=== PATIENT | male | born 1940 | race Caucasian/White ===

== ENCOUNTER 2023-02-02 21:26 | Inpatient (IN) | payer MEDICARE, OTHER, SELFPAY ==
[2023-02-02 21:26] VITALS: BP 144/77; PULSE 78; RESP 22; TEMP 36.7; O2SAT 96; BMI 29.1
--- NOTE | 2023-02-02 21:33 | ECG_ITS ---
The 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
--- NOTE | 2023-02-02 21:33 | XR_ITS ---
The [address] [address] Patient Name: FRANCISCO TIDWELL MRN: [id number] date: 1940 Sex: M Assigned Patient Location: ER Current Patient Location: ER Accession/Order Number: [id number] Exam Date: 02/02/2023 21:55 Report Date: 02/02/2023 22:46 At the request of: JOHN PICKENS Procedure: XR chest 1V EXAM: XR chest 1V HISTORY: short of breath COMPARISON: None. TECHNIQUE: AP portable study FINDINGS: There is a left basilar infiltrate with hazy density at the left lung base and blunting of the left lateral costophrenic sulcus consistent with superimposed left pleural effusion. The right lung is clear. Cardiomegaly is noted. Atherosclerotic change of the aorta without visible aneurysm. Wire sternal sutures are noted. IMPRESSION: Cardiomegaly with left basilar infiltrate and probable left pleural effusion. The technologist notes that bypass surgery was performed 2 weeks ago. Left pleural effusion may be related to the recent surgery. Superimposed pneumonia is not excluded. Electronically authenticated by: David BELCHER Date: 02/02/2023 22:46
[2023-02-02 21:52] VITALS: PULSE 77
[2023-02-02 21:57] LABS: Basophils Absolute Auto 0.1 10^3/uL (0.0-0.1); Basophils Percent Auto 0.7 % (0.2-2.0); Eosinophils Absolute Auto 0.1 10^3/uL (0.0-0.7); Eosinophils Percent Auto 1.4 % (0.9-7.0); Hematocrit 34.8 % (42.0-54.0); Hemoglobin 11.3 g/dL (14.0-18.0); Immature Granulocytes Abs Auto 0.07 10^3/uL (0.00-0.03); Immature Granulocytes Pct Auto 0.7 % (0.0-0.5); Lymphocytes Absolute Auto 1.2 10^3/uL (1.2-3.8); Lymphocytes Percent Auto 12.2 % (20.5-60.0); Mean Corpuscular HGB Conc 32.5 g/dL (29.9-35.2); Mean Corpuscular Hemoglobin 30.9 pg (25.9-34.0); Mean Corpuscular Volume 95.1 fL (80.0-94.0); Mean Platelet Volume 7.9 fL (9.5-13.5); Monocytes Absolute Auto 1.2 10^3/uL (0.3-0.8); Monocytes Percent Auto 11.6 % (1.7-12.0); Neutrophils Absolute Auto 7.4 10^3/uL (1.4-6.5); Neutrophils Percent Auto 73.4 % (43.0-75.0); Platelet Count 244 10^3/uL (150-450); Red Blood Count 3.66 10^6/uL (4.70-6.10); Red Cell Distribution Width 15.1 % (11.0-15.0); White Blood Count 10.1 10^3/uL (4.0-11.0)
--- NOTE | 2023-02-02 21:57 | PC.NURSE ---
Bruising and sweling toleft lower leg due to recent vein graft. Pulses doppler
--- NOTE | 2023-02-02 22:20 | ED.SOB1 ---
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 States tonight after therapy at the home he did not feel well once he was back to his room around 6pm. Around 8pm developed heaviness of his chest like an elephant on his chest and he feels short of breath . No nausea or fever. No abdominal pain. MD elicited complaint: shortness of breath Related Data Home Medications Medication Instructions Recorded Confirmed PreserVision AREDS 02/02/23 acetaminophen 325 mg tablet (Pain 650 mg PO Q6H PRN pain 02/02/23 02/02/23 Relief (acetaminophen)) amiodarone 200 mg tablet 200 mg PO DAILY 02/02/23 02/02/23 amiodarone 400 mg tablet (Pacerone) 400 mg PO BID 02/02/23 02/02/23 aspirin 81 mg chewable tablet 81 mg PO DAILY 02/02/23 02/02/23 atorvastatin 40 mg tablet 40 mg PO QPM 02/02/23 02/02/23 cetirizine 10 mg tablet 10 mg PO DAILY 02/02/23 02/02/23 clopidogrel 75 mg tablet 75 mg PO DAILY 02/02/23 02/02/23 docusate sodium 100 mg capsule 100 mg PO BID 02/02/23 02/02/23 (Col-Rite) furosemide 40 mg tablet 40 mg PO DAILY 02/02/23 02/02/23 glimepiride 4 mg tablet 4 mg PO DAILY 02/02/23 02/02/23 insulin glargine 100 unit/mL 20 unit subcut QPM 02/02/23 02/02/23 subcutaneous solution insulin glargine 100 unit/mL 20 unit subcut DAILY 02/02/23 02/02/23 subcutaneous solution (Lantus U-100 Insulin) magnesium oxide 400 mg PO BID 02/02/23 02/02/23 melatonin 10 mg capsule 10 mg PO DAILY 02/02/23 02/02/23 melatonin 3 mg capsule 3 mg PO DAILY 02/02/23 02/02/23 metformin 500 mg tablet 500 mg PO BID 02/02/23 02/02/23 metoprolol tartrate 25 mg tablet 12.5 mg PO BID 02/02/23 02/02/23 oxycodone 5 mg capsule 5 mg PO Q6H 02/02/23 02/02/23 pantoprazole 40 mg tablet,delayed 40 mg PO DAILY 02/02/23 02/02/23 release polyethylene glycol ea miscellaneous 02/02/23 potassium chloride 20 mEq 20 meq PO DAILY 02/02/23 02/02/23 tablet,extended release sennosides 8.6 mg capsule (senna) 8.6 mg PO BID 02/02/23 02/02/23 Allergies Allergy/AdvReac Type Severity Reaction Status Date / Time No Known Drug Allergies Allergy Verified 02/02/23 21:32 Review of Systems ROS Status of ROS 10 or more systems reviewed and unremarkable except as noted in history and below Cardiovascular Reports: chest pain Respiratory Reports: shortness of breath [facility] Social History Smoking status: Former smoker Exam Constitutional Vital Signs - 24 hr 02/02/23 21:26 02/02/23 22:38 Temperature 98.0 F Pulse Rate [Monitor] 78 77 Respiratory Rate 22 77 H Blood Pressure [Left Arm] 144/77 H 106/62 Pulse Oximetry 96 95 Oxygen Delivery Method Room Air Room Air Common normals: no apparent distress, average body habitus, oriented x3, no limitations and healthy appearing [facility] Common normals: normocephalic and head/scalp atraumatic Eye Common normals: PERRL, EOMs intact bilaterally and conjunctivae normal Chest Other: incision mid chest looks good Respiratory Common normals: normal respiratory effort, no retractions, no use of accessory muscles and clear to auscultation bilaterally Cardio Common normals: no JVD, regular rate, regular rhythm and S1 normal heart sound GI Common normals: Normal to inspection, nondistended, normoactive bowel sounds present, soft to palpation and non-tender Extremity Common normals: normal to inspection Other: gen. joint pain elliott her knee. Limited ROM of her joints due to complaint of pain Neuro Common normals: oriented x3, CN's II-XII intact bilaterally and moves all extremities Psych Appearance: grossly normal Course Vital Signs Vital signs: Vital Signs Temperature 98.0 F 02/02/23 21:26 Pulse Rate 78 02/02/23 21:26 Respiratory Rate 22 02/02/23 21:26 Blood Pressure 144/77 H 02/02/23 21:26 Pulse Oximetry 96 02/02/23 21:26 Oxygen Delivery Method Room Air 02/02/23 21:26 Temperature 98.0 F 02/02/23 21:26 Pulse Rate 77 02/02/23 22:38 Respiratory Rate 77 H 02/02/23 22:38 Blood Pressure 106/62 02/02/23 22:38 Pulse Oximetry 95 02/02/23 22:38 Oxygen Delivery Method Room Air 02/02/23 22:38 MDM - SOB/Dyspnea MDM Narrative Medical decision making narrative: patient presents with complaint of gen. joint pain , weakness and blurred vision. Blurred vision on and off early AM and then her vision remained blurred at 2pm. She arrived to the ER 6 hours later. Exam with abnormal right michele gaze as her left eye would not cross midline. CTS , including CTA brain and CTA neck without acute findings. Discussed with Stroke physician Dr Henderson. He recommended plavix 600mg and admission for MRI. Found out that there is no staff on duty tomorrow for MRI but they are available to be called in as an emergency. In the interim patient complains of worsening joing pain , elliott her lower extremities to a point that she does not want to move her legs. She also has lactic acidosis, leukocytosis and mild elevation of Troponin. Her troponin is trending down as it was higher during her admission 2 days ago. Her EKG has not acute changes. She has a low grade fever. No clear etiology to explain her fever, arthralgias or lactic acidosis. Patient accepted for transper to [facility] to continue workup and treatment Lab Data Labs: Lab Results 02/02/23 Range/Units 21:40 WBC 10.1 (4.0-11.0) 10^3/uL RBC 3.66 L (4.70-6.10) 10^6/uL Hgb 11.3 L (14.0-18.0) g/dL Hct 34.8 L (42.0-54.0) % MCV 95.1 H (80.0-94.0) fL MCH 30.9 (25.9-34.0) pg MCHC 32.5 (29.9-35.2) g/dL RDW 15.1 H (11.0-15.0) % Plt Count 244 (150-450) 10^3/uL MPV 7.9 L (9.5-13.5) fL Neut % (Auto) 73.4 (43.0-75.0) % Lymph % (Auto) 12.2 L (20.5-60.0) % [place] % (Auto) 11.6 (1.7-12.0) % Eos % (Auto) 1.4 (0.9-7.0) % Baso % (Auto) 0.7 (0.2-2.0) % Neut # (Auto) 7.4 H (1.4-6.5) 10^3/uL Lymph # (Auto) 1.2 (1.2-3.8) 10^3/uL [place] # (Auto) 1.2 H (0.3-0.8) 10^3/uL Eos # (Auto) 0.1 (0.0-0.7) 10^3/uL Baso # (Auto) 0.1 (0.0-0.1) 10^3/uL Abs Immat Gran (auto) 0.07 H (0.00-0.03) 10^3/uL Imm/Tot Granulo (auto) 0.7 H (0.0-0.5) % PT 10.9 (9.0-11.6) sec INR 1.03 D-Dimer 3.24 H* (<=0.59) mg/L FEU Sodium 140 (136-145) mmol/L Potassium 3.9 (3.5-5.1) mmol/L Chloride 104 (98-107) mmol/L Carbon Dioxide 24.3 (21.0-32.0) mmol/L Anion Gap 15.6 BUN 17.0 (7.0-18.0) mg/dL Creatinine 1.13 (0.70-1.30) mg/dL Est GFR ( Amer) >60 (>=60) Est GFR (Non-Af Amer) >60 (>=60) BUN/Creatinine Ratio 15.0 Glucose 184 H (74-106) mg/dL Calcium 8.3 L (8.5-10.1) mg/dL Total Bilirubin 0.4 (0.2-1.0) mg/dL AST 11 L (15-37) U/L ALT 19 (16-63) U/L Alkaline Phosphatase 101 (46-116) U/L Troponin I High Sens 6.9 (4.0-76.1) pg/mL Total Protein 6.1 L (6.4-8.2) g/dL Albumin 2.7 L (3.4-5.0) g/dL Globulin 3.4 g/dL Albumin/Globulin Ratio 0.8 Discharge Plan Discharge Chief Complaint: Shortness of Breath/Dyspnea Clinical Impression: Arthralgia, Blurred vision, Leukocytosis, Stroke, Elevated troponin Patient Disposition: [facility] Discharge location: transfer to [facility] Mode of Transportation: EMS
--- NOTE | 2023-02-02 22:29 | CT_ITS ---
[address] [address] Patient Name: FRANCISCO TIDWELL MRN: [id number] date: 1940 Sex: M Assigned Patient Location: ER Current Patient Location: ER Accession/Order Number: [id number] Exam Date: 02/02/2023 23:25 Report Date: 02/03/2023 01:06 At the request of: HILDA DE LA ROSA Procedure: CT angio chest EXAM: CT angio chest HISTORY: chest pain shortness of breath COMPARISON: Chest x-ray 02/02/2023 TECHNIQUE: Multiple axial views of the CT chest angiogram after administration of 100 mL Omnipaque 350 IV contrast. Coronal sagittal reformats. MIP series performed. 3-D reconstruction. FINDINGS: No evidence for acute pulmonary embolism throughout the majority of the pulmonary arteries. Some portions of the left lower segmental and subsegmental pulmonary arteries are obscured by respiratory motion. No thoracic aortic aneurysm or aortic dissection. Moderate cardiomegaly with extensive left and right coronary artery calcifications. No large pericardial effusion. Prior sternotomy. Trace retrosternal fluid and foci of air. Central airway is patent. Multifocal moderate bilateral lower distal bronchioles mucus plugging. Mild bilateral upper lobe paraseptal emphysema. Mild left upper lobe groundglass opacities reflecting pulmonary edema or lung inflammation. Trace left lower pleural effusion. Minimal hiatal hernia. 1.4 cm left hepatic dome hypodense oval focus, statistically cyst or hemangioma. No acute bony abnormality. IMPRESSION: No evidence for acute pulmonary embolism throughout the majority of the pulmonary arteries. Some portions of the left lower segmental and subsegmental pulmonary arteries are obscured by respiratory motion. Moderate cardiomegaly with extensive left and right coronary artery calcifications. No large pericardial effusion. Prior sternotomy. Trace retrosternal fluid and foci of air. Multifocal moderate bilateral lower distal bronchioles mucus plugging. Mild bibasilar atelectatic lung changes. Mild left upper lobe groundglass opacities reflecting pulmonary edema or lung inflammation. Trace left lower pleural effusion. Electronically authenticated by: KARLA JOHNSON Date: 02/03/2023 01:06
[2023-02-02 22:37] LABS: Alanine Aminotransferase 19 U/L (16-63); Albumin Globulin Ratio 0.8; Albumin Level 2.7 g/dL (3.4-5.0); Alkaline Phosphatase 101 U/L (46-116); Anion Gap 15.6; Aspartate Amino Transferase 11 U/L (15-37); Bilirubin Total 0.4 mg/dL (0.2-1.0); Calcium 8.3 mg/dL (8.5-10.1); Carbon Dioxide 24.3 mmol/L (21.0-32.0); Chloride 104 mmol/L (98-107); Estimated GFR (African America >60 (>=60); Estimated GFR (Non-African Ame >60 (>=60); Globulin 3.4 g/dL; Glucose 184 mg/dL (74-106); Potassium 3.9 mmol/L (3.5-5.1); Sodium 140 mmol/L (136-145); Total Protein 6.1 g/dL (6.4-8.2); Troponin I High Sensitivity 6.9 pg/mL (4.0-76.1)
[2023-02-02 22:38] VITALS: BP 106/62; PULSE 77; RESP 77; O2SAT 95
[2023-02-02 22:39] LABS: D Dimer 3.24 mg/L FEU (<=0.59); INR 1.03; Prothrombin Time 10.9 sec (9.0-11.6)
[2023-02-03] VITALS (15 sets, daily range): BP systolic 93–124; BP diastolic 60–88; PULSE 66–97; RESP 18–20; TEMP 36.3–36.4; O2SAT 90–95
--- NOTE | 2023-02-03 01:46 | ED.SOB1 ---
HPI - SOB/Dyspnea General Chief Complaint: Shortness of Breath/Dyspnea Stated Complaint: SHORTNESS OF BREATH Time Seen by Provider: 02/02/23 21:33 Source: patient Mode of arrival: ambulance Limitations: no limitations History of Present Illness HPI Narrative: CABG one month ago at [facility]. NHP. States tonight after therapy session he went back to his room. States he developed chest tightness and shortness of breath. Arrives via [facility] with continued complaint of pain and shortness of breath. No nausea or vomiting MD elicited complaint: shortness of breath Related Data Home Medications Medication Instructions Recorded Confirmed acetaminophen 325 mg tablet (Pain 650 mg PO Q6H PRN pain 02/02/23 02/02/23 Relief (acetaminophen)) amiodarone 200 mg tablet 200 mg PO DAILY 02/02/23 02/02/23 amiodarone 400 mg tablet (Pacerone) 400 mg PO BID 02/02/23 02/02/23 aspirin 81 mg chewable tablet 81 mg PO DAILY 02/02/23 02/02/23 atorvastatin 40 mg tablet 40 mg PO QPM 02/02/23 02/02/23 cetirizine 10 mg tablet 10 mg PO DAILY 02/02/23 02/02/23 clopidogrel 75 mg tablet 75 mg PO DAILY 02/02/23 02/02/23 docusate sodium 100 mg capsule 100 mg PO BID 02/02/23 02/02/23 (Col-Rite) furosemide 40 mg tablet 40 mg PO DAILY 02/02/23 02/02/23 glimepiride 4 mg tablet 4 mg PO DAILY 02/02/23 02/02/23 insulin glargine 100 unit/mL 20 unit subcut QPM 02/02/23 02/02/23 subcutaneous solution insulin glargine 100 unit/mL 20 unit subcut DAILY 02/02/23 02/02/23 subcutaneous solution (Lantus U-100 Insulin) magnesium oxide 400 mg PO BID 02/02/23 02/02/23 melatonin 10 mg capsule 10 mg PO DAILY 02/02/23 02/02/23 melatonin 3 mg capsule 3 mg PO DAILY 02/02/23 02/02/23 metformin 500 mg tablet 500 mg PO BID 02/02/23 02/02/23 metoprolol tartrate 25 mg tablet 12.5 mg PO BID 02/02/23 02/02/23 oxycodone 5 mg capsule 5 mg PO Q6H 02/02/23 02/02/23 pantoprazole 40 mg tablet,delayed 40 mg PO DAILY 02/02/23 02/02/23 release polyethylene glycol 17 ea miscellaneous BID 02/02/23 02/03/23 potassium chloride 20 mEq 20 meq PO DAILY 02/02/23 02/02/23 tablet,extended release sennosides 8.6 mg capsule (senna) 8.6 mg PO BID 02/02/23 02/02/23 vitamins A,C,D-pjxp-vrbswn 4,296 1 cap PO DAILY 02/03/23 02/03/23 mcg-226 mg-90 mg capsule (PreserVision AREDS) Allergies Allergy/AdvReac Type Severity Reaction Status Date / Time No Known Drug Allergies Allergy Verified 02/02/23 21:32 Review of Systems ROS Status of ROS 10 or more systems reviewed and unremarkable except as noted in history and below Cardiovascular Reports: chest pain Respiratory Reports: shortness of breath [facility] Medical History Surgical History Social History (Updated 02/03/23 @ 06:34 by Aparna Wallace) Within the past year, how often did you have a drink containing alcohol: never Score interpretation: A score less than 4 is consistent with normal alcohol consumption. Smoking status: Former smoker Non-prescribed substance use: denies use Previous occupational history: retired Highest level of school completed/degree received: high school graduate Are you now , , , , never or living with a partner: In a typical week, how many times do you talk on the telephone with family, friends, or neighbors: 3 or more times per week How often do you get together with friends or relatives: 3 or more times per week How often do you attend mandaeism or uatsdin services: 4 or more times per year Do you belong to any clubs or organizations such as mandaeism groups unions, fraternal or athletic groups, or school groups: yes Total score: 3 Score interpretation: A score of greater than or equal to 2 indicates the lowest level of social isolation. Little interest or pleasure in doing things: not at all Feeling down, depressed, or hopeless: not at all Feel stressed/tense/nervous/anxious/difficulty sleeping: not at all Due to disability, difficulty making decisions: No Do you think of yourself as: straight/heterosexual Gender Identity: male Exam Constitutional Vital Signs - 24 hr 02/02/23 21:26 02/02/23 22:38 02/03/23 01:08 Temperature 98.0 F Pulse Rate [Monitor] 78 77 73 Respiratory Rate 22 77 H 18 Blood Pressure [Left Arm] 144/77 H 106/62 114/88 H Pulse Oximetry 96 95 95 Oxygen Delivery Method Room Air Room Air Room Air Common normals: no apparent distress, oriented x3, no limitations and healthy appearing HENMT Common normals: normocephalic and head/scalp atraumatic Eye Common normals: PERRL, EOMs intact bilaterally and conjunctivae normal Chest Common normals: inspection of chest normal Other: midline chest incision looks good. healing nicely Respiratory Common normals: no use of accessory muscles Other: mild tachypnea Cardio Common normals: regular rate, regular rhythm, S1 normal heart sound and S2 normal heart sound GI Common normals: Normal to inspection, nondistended, normoactive bowel sounds present, soft to palpation and non-tender Extremity Common normals: normal to inspection, normal capillary refill and no joint enlargement Neuro Common normals: oriented x3 and CN's II-XII intact bilaterally Psych Appearance: grossly normal Course Course Hospital Course: Patient is being managed at the [facility] for rehab after cardio by vascular bypass surgery. Had acute onset of chest pressure. Similar to his previous heart event. Evaluation in ER was unremarkable. Patient was admitted for continue therapy. Over the first 24 hours she did not improve significantly. Medications were adjusted. And today currently feels back to his normal self. Feels like from a strengthening point is pretty close to being able to go home. At this point we will discharge him back to rehab today. Medications see list. Follow-up with me after discharge from rehab. Vital Signs Vital signs: Vital Signs Temperature 98.0 F 02/02/23 21:26 Pulse Rate 78 02/02/23 21:26 Respiratory Rate 22 02/02/23 21:26 Blood Pressure 144/77 H 02/02/23 21:26 Pulse Oximetry 96 02/02/23 21:26 Oxygen Delivery Method Room Air 02/02/23 21:26 Temperature 97.5 F L 02/04/23 04:59 Pulse Rate 93 H 02/04/23 10:14 Respiratory Rate 20 02/04/23 04:59 Blood Pressure 131/82 H 02/04/23 04:59 Pulse Oximetry 94 L 02/04/23 11:39 Oxygen Delivery Method Room Air 02/04/23 11:39 MDM - SOB/Dyspnea MDM Narrative Medical decision making narrative: CABG one month ago. Now presents with shortness of breath and chest heaviness. troponin neg. EKG low voltage. Nonspecific T changes. D-dimer elevated. CTA chest with no PE but findings of mild left upper lobe ground glass opacities reflecting pulmonary edema or lung inflammation. Patient re examined and continues to complain of dyspnea and chest tightness.Discused with the hospitalist and will plan obs admission for shortness of breath Lab Data Labs: Lab Results 02/02/23 02/03/23 02/03/23 Range/Units 21:40 01:30 07:00 WBC 10.1 (4.0-11.0) 10^3/uL RBC 3.66 L (4.70-6.10) 10^6/uL Hgb 11.3 L (14.0-18.0) g/dL Hct 34.8 L (42.0-54.0) % MCV 95.1 H (80.0-94.0) fL MCH 30.9 (25.9-34.0) pg MCHC 32.5 (29.9-35.2) g/dL RDW 15.1 H (11.0-15.0) % Plt Count 244 (150-450) 10^3/uL MPV 7.9 L (9.5-13.5) fL Neut % (Auto) 73.4 (43.0-75.0) % Lymph % (Auto) 12.2 L (20.5-60.0) % [place] % (Auto) 11.6 (1.7-12.0) % Eos % (Auto) 1.4 (0.9-7.0) % Baso % (Auto) 0.7 (0.2-2.0) % Neut # (Auto) 7.4 H (1.4-6.5) 10^3/uL Lymph # (Auto) 1.2 (1.2-3.8) 10^3/uL [place] # (Auto) 1.2 H (0.3-0.8) 10^3/uL Eos # (Auto) 0.1 (0.0-0.7) 10^3/uL Baso # (Auto) 0.1 (0.0-0.1) 10^3/uL Abs Immat Gran (auto) 0.07 H (0.00-0.03) 10^3/uL Imm/Tot Granulo (auto) 0.7 H (0.0-0.5) % PT 10.9 (9.0-11.6) sec INR 1.03 D-Dimer 3.24 H* (<=0.59) mg/L FEU Sodium 140 (136-145) mmol/L Potassium 3.9 (3.5-5.1) mmol/L Chloride 104 (98-107) mmol/L Carbon Dioxide 24.3 (21.0-32.0) mmol/L Anion Gap 15.6 BUN 17.0 (7.0-18.0) mg/dL Creatinine 1.13 (0.70-1.30) mg/dL Est GFR ( Amer) >60 (>=60) Est GFR (Non-Af Amer) >60 (>=60) BUN/Creatinine Ratio 15.0 Glucose 184 H (74-106) mg/dL Calcium 8.3 L (8.5-10.1) mg/dL Total Bilirubin 0.4 (0.2-1.0) mg/dL AST 11 L (15-37) U/L ALT 19 (16-63) U/L Alkaline Phosphatase 101 (46-116) U/L Troponin I High Sens 6.9 (4.0-76.1) pg/mL NT-Pro-B Natriuret Pep 214.0 (<=1800.0) pg/mL Total Protein 6.1 L (6.4-8.2) g/dL Albumin 2.7 L (3.4-5.0) g/dL Globulin 3.4 g/dL Albumin/Globulin Ratio 0.8 SARS-CoV-2 (PCR) Negative (NEGATIVE) SARS-CoV-2 RNA (CLAUDIA) Not detected (NOT DETECTE) Discharge Plan Discharge Chief Complaint: Shortness of Breath/Dyspnea Clinical Impression: Short of breath on exertion, Pulmonary edema Patient Disposition: Admitted as Observation Time of Disposition Decision: 02:30 Condition: Fair Discharge Date/Time: 02/03/23 03:00
[2023-02-03 07:10] LABS: SARS-CoV-2 Ag Negative (NEGATIVE)
--- NOTE | 2023-02-03 09:17 | P.HP_ITS ---
H&P: HPI History of Present Illness Chief complaint: SHORTNESS OF BREATH CHF Narrative: Patient with 3% cardiac bypass surgery had acute onset of shortness of breath and chest pressure in the long-term where he is rehabilitating, presented to the emergency room, on CT scan to confirm congestive heart failure pattern, patient without cough or fever, labs were normal for HST and BNP, patient still feeling with some shortness of breath different than his previous, no PE on CTA [facility] Medical History Surgical History Social History (Updated 02/03/23 @ 06:34 by Aparna Wallace) Within the past year, how often did you have a drink containing alcohol: never Score interpretation: A score less than 4 is consistent with normal alcohol consumption. Smoking status: Former smoker Non-prescribed substance use: denies use Previous occupational history: retired Highest level of school completed/degree received: high school graduate Are you now , , , , never or living with a partner: In a typical week, how many times do you talk on the telephone with family, friends, or neighbors: 3 or more times per week How often do you get together with friends or relatives: 3 or more times per week How often do you attend synagogue or nondenominational services: 4 or more times per year Do you belong to any clubs or organizations such as synagogue groups unions, fraternal or athletic groups, or school groups: yes Total score: 3 Score interpretation: A score of greater than or equal to 2 indicates the lowest level of social isolation. Little interest or pleasure in doing things: not at all Feeling down, depressed, or hopeless: not at all Feel stressed/tense/nervous/anxious/difficulty sleeping: not at all Due to disability, difficulty making decisions: No Do you think of yourself as: straight/heterosexual Gender Identity: male Meds Home Medications and Allergies Home Medications Medication Instructions Recorded Confirmed Type PreserVision AREDS See Rx Instructions .Route .COMPLEX 02/02/23 02/03/23 History acetaminophen 325 mg tablet (Pain 650 mg PO Q6H PRN pain 02/02/23 02/02/23 History Relief (acetaminophen)) amiodarone 200 mg tablet 200 mg PO DAILY 02/02/23 02/02/23 History amiodarone 400 mg tablet (Pacerone) 400 mg PO BID 02/02/23 02/02/23 History aspirin 81 mg chewable tablet 81 mg PO DAILY 02/02/23 02/02/23 History atorvastatin 40 mg tablet 40 mg PO QPM 02/02/23 02/02/23 History cetirizine 10 mg tablet 10 mg PO DAILY 02/02/23 02/02/23 History clopidogrel 75 mg tablet 75 mg PO DAILY 02/02/23 02/02/23 History docusate sodium 100 mg capsule 100 mg PO BID 02/02/23 02/02/23 History (Col-Rite) furosemide 40 mg tablet 40 mg PO DAILY 02/02/23 02/02/23 History glimepiride 4 mg tablet 4 mg PO DAILY 02/02/23 02/02/23 History insulin glargine 100 unit/mL 20 unit subcut QPM 02/02/23 02/02/23 History subcutaneous solution insulin glargine 100 unit/mL 20 unit subcut DAILY 02/02/23 02/02/23 History subcutaneous solution (Lantus U-100 Insulin) magnesium oxide 400 mg PO BID 02/02/23 02/02/23 History melatonin 10 mg capsule 10 mg PO DAILY 02/02/23 02/02/23 History melatonin 3 mg capsule 3 mg PO DAILY 02/02/23 02/02/23 History metformin 500 mg tablet 500 mg PO BID 02/02/23 02/02/23 History metoprolol tartrate 25 mg tablet 12.5 mg PO BID 02/02/23 02/02/23 History oxycodone 5 mg capsule 5 mg PO Q6H 02/02/23 02/02/23 History pantoprazole 40 mg tablet,delayed 40 mg PO DAILY 02/02/23 02/02/23 History release polyethylene glycol 17 ea miscellaneous BID 02/02/23 02/03/23 History potassium chloride 20 mEq 20 meq PO DAILY 02/02/23 02/02/23 History tablet,extended release sennosides 8.6 mg capsule (senna) 8.6 mg PO BID 02/02/23 02/02/23 History Allergies Allergy/AdvReac Type Severity Reaction Status Date / Time No Known Drug Allergies Allergy Verified 02/02/23 21:32 Exam Constitutional Vital Signs - 24 hr 02/02/23 21:26 02/02/23 22:38 02/03/23 01:08 Temperature 98.0 F Pulse Rate Pulse Rate [Monitor] 78 77 73 Respiratory Rate 22 77 H 18 Blood Pressure [Left Arm] 144/77 H 106/62 114/88 H Pulse Oximetry 96 95 95 Oxygen Delivery Method Room Air Room Air Room Air 02/03/23 04:00 02/03/23 06:00 02/03/23 08:14 Temperature Pulse Rate 66 88 92 H Pulse Rate [Monitor] Respiratory Rate Blood Pressure [Left Arm] Pulse Oximetry Oxygen Delivery Method Common normals: no apparent distress HENMT Common normals: moist oral mucous membranes Chest Common normals: inspection of chest abnormal (Median sternotomy scar healing well) Respiratory Common normals: normal respiratory effort and no use of accessory muscles Auscultation: rales Cardio Common normals: regular rate, regular rhythm and S1 normal heart sound GI Common normals: Normal to inspection, nondistended, normoactive bowel sounds present, soft to palpation, non-tender and no hepatosplenomegaly Back & Pelvis Common normals: no CVA tenderness Results Labs Labs: Short CBC 02/02/23 Range/Units 21:40 WBC 10.1 (4.0-11.0) 10^3/uL Hgb 11.3 L (14.0-18.0) g/dL Hct 34.8 L (42.0-54.0) % Plt Count 244 (150-450) 10^3/uL BMP 02/02/23 21:40 Sodium 140 Potassium 3.9 Chloride 104 Carbon Dioxide 24.3 BUN 17.0 Creatinine 1.13 Glucose 184 H Calcium 8.3 L Liver Function 02/02/23 Range/Units 21:40 Total Bilirubin 0.4 (0.2-1.0) mg/dL AST 11 L (15-37) U/L ALT 19 (16-63) U/L Alkaline Phosphatase 101 (46-116) U/L Albumin 2.7 L (3.4-5.0) g/dL Assessment and Plan Assessment and Plan (1) Arthralgia: (2) Short of breath on exertion: (3) Pulmonary edema: (4) COPD (chronic obstructive pulmonary disease): (5) Chest pain: (6) Diabetes: (7) GERD (gastroesophageal reflux disease): (8) Hypertension: (9) Hypomagnesemia: (10) SOB (shortness of breath): Plan Patient with a recent cardiac bypass surgery now with shortness of breath and chest pressure. Repeat troponin, repeat BNP, CT scan consistent with pulmonary edema-we will give 1 dose of IV Lasix. HST and BNP are normal. Repeat labs serially. Echo in 2 days., Discussed with cardiology depending on status of the above testing Diabetes mellitus-insulin sliding scale and continue with regular medications Hypertension-continue current medications Hypomagnesemia-continue with current medications, Check levels Possible atelectasis on CTA-we will add OPEP therapy GERD-continue with home medications COPD-does not sound in acute flareup, no wheezing-Continue to monitor Morbid obesity-diet management Low back pain-likely member bed related, try 1 dose of Toradol Patient would be here for medical therapy for more than 2 midnights-we will change patient to inpatient status.No significant improvement with initial management of his shortness of breath Yesterday evening.
[2023-02-03] MEDS: KETOROLAC TROMETHAMINE 30 MG/ML VIAL 15 MG IVP (09:33)
[2023-02-03] MEDS: FUROSEMIDE 20 MG/2 ML VIAL 60 MG IVP (09:33)
[2023-02-03 09:47] LABS: Basophils Absolute Auto 0.1 10^3/uL (0.0-0.1); Basophils Percent Auto 0.5 % (0.2-2.0); Eosinophils Absolute Auto 0.1 10^3/uL (0.0-0.7); Eosinophils Percent Auto 1.3 % (0.9-7.0); Immature Granulocytes Abs Auto 0.06 10^3/uL (0.00-0.03); Immature Granulocytes Pct Auto 0.6 % (0.0-0.5); Lymphocytes Absolute Auto 0.9 10^3/uL (1.2-3.8); Mean Corpuscular HGB Conc 32.4 g/dL (29.9-35.2); Mean Corpuscular Hemoglobin 30.3 pg (25.9-34.0); Mean Corpuscular Volume 93.4 fL (80.0-94.0); Mean Platelet Volume 7.9 fL (9.5-13.5); Monocytes Absolute Auto 1.1 10^3/uL (0.3-0.8); Monocytes Percent Auto 11.8 % (1.7-12.0); Neutrophils Absolute Auto 7.1 10^3/uL (1.4-6.5); Neutrophils Percent Auto 75.8 % (43.0-75.0); Platelet Count 225 10^3/uL (150-450); Red Blood Count 3.96 10^6/uL (4.70-6.10); White Blood Count 9.4 10^3/uL (4.0-11.0)
[2023-02-03 11:00] LABS: Glucometer 150 mg/dL (74-106)
[2023-02-03] MEDS: OXYCODONE HCL 5 MG TABLET PO ×2 (11:11→21:35)
[2023-02-03] MEDS: VITS A C E PO (11:11)
[2023-02-03] MEDS: MINERALS PO (11:11)
[2023-02-03] MEDS: METFORMIN HCL 500 MG TABLET PO (11:11)
[2023-02-03] MEDS: LUTEIN PO (11:11)
[2023-02-03] MEDS: ASPIRIN 81 MG TAB.CHEW PO (11:11)
[2023-02-03] MEDS: CETIRIZINE HCL 10 MG TABLET PO (11:11)
[2023-02-03] MEDS: POTASSIUM CHLORIDE 10 MEQ ER TABLET 20 MEQ PO (11:11)
[2023-02-03] MEDS: GLIMEPIRIDE 2 MG TABLET 4 MG PO (11:12)
[2023-02-03] MEDS: OMEPRAZOLE 40 MG CAPSULE.DR PO (11:12)
[2023-02-03] MEDS: METOPROLOL TARTRATE 25 MG TABLET 12.5 MG PO ×2 (11:13→21:34)
[2023-02-03] MEDS: AMIODARONE HCL 200 MG TABLET PO (11:13)
[2023-02-03] MEDS: CLOPIDOGREL BISULFATE 75 MG TABLET PO (11:13)
[2023-02-03] MEDS: SENNOSIDES 8.6 MG TABLET PO ×2 (11:13→21:35)
[2023-02-03] MEDS: DOCUSATE SODIUM 100 MG CAPSULE PO ×2 (11:13→21:35)
[2023-02-03] MEDS: INSULIN DETEMIR 300 UNIT/3 ML INSULN.PEN 20 UNIT SUBQ (11:14)
[2023-02-03] MEDS: INSULIN ASPART 300 UNIT/3 ML PEN SUBQ ×2 (11:14→16:32)
[2023-02-03 11:33] LABS: Alanine Aminotransferase 22 U/L (16-63); Albumin Globulin Ratio 0.7; Albumin Level 2.9 g/dL (3.4-5.0); Alkaline Phosphatase 103 U/L (46-116); Anion Gap 12.5; Aspartate Amino Transferase 14 U/L (15-37); BUN Creatinine Ratio 15.3; Bilirubin Total 0.6 mg/dL (0.2-1.0); Calcium 9.2 mg/dL (8.5-10.1); Carbon Dioxide 27.9 mmol/L (21.0-32.0); Chloride 103 mmol/L (98-107); Estimated GFR (African America >60 (>=60); Estimated GFR (Non-African Ame >60 (>=60); Globulin 3.9 g/dL; Glucose 75 mg/dL (74-106); Potassium 4.4 mmol/L (3.5-5.1); Sodium 139 mmol/L (136-145); Total Protein 6.8 g/dL (6.4-8.2)
[2023-02-03 11:58] LABS: Troponin I High Sensitivity 7.1 pg/mL (4.0-76.1)
[2023-02-03 16:09] LABS: Glucometer 166 mg/dL (74-106)
[2023-02-03 19:41] LABS: Glucometer 86 mg/dL (74-106)
[2023-02-03] MEDS: ATORVASTATIN CALCIUM 40 MG TABLET PO (21:35)
[2023-02-03] MEDS: MAGNESIUM OXIDE 400 MG TABLET PO (21:35)
[2023-02-03] MEDS: POLYETHYLENE GLYCOL 3350 17 GM POWDER PACKET PO (21:36)
[2023-02-04] VITALS (8 sets, daily range): BP systolic 131; BP diastolic 82; PULSE 75–99; RESP 20; TEMP 36.4; O2SAT 93–94
[2023-02-04 04:46] LABS: Basophils Absolute Auto 0.1 10^3/uL (0.0-0.1); Basophils Percent Auto 0.7 % (0.2-2.0); Eosinophils Absolute Auto 0.2 10^3/uL (0.0-0.7); Eosinophils Percent Auto 2.1 % (0.9-7.0); Hematocrit 36.5 % (42.0-54.0); Hemoglobin 11.9 g/dL (14.0-18.0); Immature Granulocytes Abs Auto 0.05 10^3/uL (0.00-0.03); Immature Granulocytes Pct Auto 0.7 % (0.0-0.5); Lymphocytes Absolute Auto 1.1 10^3/uL (1.2-3.8); Lymphocytes Percent Auto 15.2 % (20.5-60.0); Mean Corpuscular HGB Conc 32.6 g/dL (29.9-35.2); Mean Corpuscular Hemoglobin 30.1 pg (25.9-34.0); Mean Corpuscular Volume 92.2 fL (80.0-94.0); Mean Platelet Volume 7.9 fL (9.5-13.5); Monocytes Percent Auto 13.5 % (1.7-12.0); Neutrophils Absolute Auto 5.1 10^3/uL (1.4-6.5); Neutrophils Percent Auto 67.8 % (43.0-75.0); Platelet Count 205 10^3/uL (150-450); Red Blood Count 3.96 10^6/uL (4.70-6.10); Red Cell Distribution Width 14.8 % (11.0-15.0); White Blood Count 7.5 10^3/uL (4.0-11.0)
[2023-02-04 04:57] LABS: Troponin I High Sensitivity 6.9 pg/mL (4.0-76.1)
[2023-02-04 05:42] LABS: Anion Gap 12.7; BUN Creatinine Ratio 24.1; Carbon Dioxide 26.6 mmol/L (21.0-32.0); Chloride 100 mmol/L (98-107); Estimated GFR (African America >60 (>=60); Estimated GFR (Non-African Ame >60 (>=60); Glucose 80 mg/dL (74-106); Potassium 4.3 mmol/L (3.5-5.1); Sodium 135 mmol/L (136-145)
[2023-02-04 05:43] LABS: Alanine Aminotransferase 18 U/L (16-63); Albumin Globulin Ratio 0.7; Albumin Level 2.7 g/dL (3.4-5.0); Alkaline Phosphatase 104 U/L (46-116); Aspartate Amino Transferase 14 U/L (15-37); Bilirubin Total 0.6 mg/dL (0.2-1.0); Globulin 3.8 g/dL; Total Protein 6.5 g/dL (6.4-8.2)
[2023-02-04] MEDS: METOPROLOL TARTRATE 25 MG TABLET 12.5 MG PO (08:45)
[2023-02-04] MEDS: POTASSIUM CHLORIDE 10 MEQ ER TABLET 20 MEQ PO (08:45)
[2023-02-04] MEDS: ASPIRIN 81 MG TAB.CHEW PO (08:45)
[2023-02-04] MEDS: DOCUSATE SODIUM 100 MG CAPSULE PO (08:45)
[2023-02-04] MEDS: MAGNESIUM OXIDE 400 MG TABLET PO (08:45)
[2023-02-04] MEDS: CLOPIDOGREL BISULFATE 75 MG TABLET PO (08:45)
[2023-02-04] MEDS: SENNOSIDES 8.6 MG TABLET PO (08:45)
[2023-02-04] MEDS: METFORMIN HCL 500 MG TABLET PO (08:46)
[2023-02-04] MEDS: LUTEIN PO (08:46)
[2023-02-04] MEDS: VITS A C E PO (08:46)
[2023-02-04] MEDS: CETIRIZINE HCL 10 MG TABLET PO (08:46)
[2023-02-04] MEDS: OMEPRAZOLE 40 MG CAPSULE.DR PO (08:46)
[2023-02-04] MEDS: MINERALS PO (08:46)
[2023-02-04] MEDS: AMIODARONE HCL 200 MG TABLET PO (08:47)
[2023-02-04] MEDS: GLIMEPIRIDE 2 MG TABLET 4 MG PO (08:47)
--- NOTE | 2023-02-04 09:58 | P.DS_ITS ---
DS: Providers Provider Date of admission: 02/03/23 05:57 Primary care physician: Beka Blackman MD Consults: 02/03/23 09:02 Physical Therapy Eval and Treat Routine DS: Diagnosis Discharge Diagnosis (1) Arthralgia: (2) Short of breath on exertion: (3) Pulmonary edema: (4) COPD (chronic obstructive pulmonary disease): (5) Chest pain: (6) Diabetes: (7) GERD (gastroesophageal reflux disease): (8) Hypertension: (9) Hypomagnesemia: (10) SOB (shortness of breath): Plan Patient with a recent cardiac bypass surgery now with shortness of breath and chest pressure.? Diabetes mellitus Hypertension Hypomagnesemia Possible atelectasis on CTA GERD COPD Morbid obesity Low back pain Patient would be here for medical therapy for more than 2 midnights-we will change patient to inpatient status.No significant improvement with initial management of his shortness of breath Yesterday evening. DS: Summary Hospital Course Hospital Course: Patient is being managed at the [facility] for rehab after cardio by vascular bypass surgery. Had acute onset of chest pressure. Similar to his previous heart event. Evaluation in ER was unremarkable. Patient was admitted for continue therapy. Over the first 24 hours she did not improve significantly. Medications were adjusted. And today currently feels back to his normal self. Feels like from a strengthening point is pretty close to being able to go home. At this point we will discharge him back to rehab today. Medications see list. Follow-up with me after discharge from rehab. Status at Discharge Functional status at discharge: independent ambulation Time Spent with Patient Time attestation: Total time spent providing and/or coordinating discharge services: Exam Constitutional Vital Signs - 24 hr 02/03/23 10:06 02/03/23 11:54 02/03/23 11:45 Temperature Pulse Rate 97 H 95 H Respiratory Rate Blood Pressure [Left Arm] Pulse Oximetry 95 Oxygen Delivery Method Room Air 02/03/23 13:59 02/03/23 14:00 02/03/23 16:08 Temperature 97.5 F L Pulse Rate 75 75 90 Respiratory Rate 18 Blood Pressure [Left Arm] 93/60 Pulse Oximetry 92 L Oxygen Delivery Method Room Air 02/03/23 18:11 02/03/23 19:45 02/03/23 20:00 Temperature Pulse Rate 80 85 Respiratory Rate Blood Pressure [Left Arm] Pulse Oximetry 95 Oxygen Delivery Method Room Air 02/03/23 21:00 02/03/23 22:00 02/04/23 00:00 Temperature 97.4 F L Pulse Rate 97 H 95 H 75 Respiratory Rate 20 Blood Pressure [Left Arm] 124/76 H Pulse Oximetry 90 L Oxygen Delivery Method Room Air 02/04/23 02:00 02/04/23 04:00 02/04/23 04:59 Temperature 97.5 F L Pulse Rate 75 76 92 H Respiratory Rate 20 Blood Pressure [Left Arm] 131/82 H Pulse Oximetry 93 L Oxygen Delivery Method Room Air 02/04/23 06:14 02/04/23 07:58 Temperature Pulse Rate 89 99 H Respiratory Rate Blood Pressure [Left Arm] Pulse Oximetry Oxygen Delivery Method Common normals: no apparent distress HENMT Common normals: moist oral mucous membranes Lymph Lymphatic: no lymphadenopathy noted Chest Common normals: inspection of chest normal (Well-healed mid sternotomy scar) Respiratory Common normals: normal respiratory effort, no retractions, no use of accessory muscles and clear to auscultation bilaterally Cardio Common normals: regular rate and regular rhythm Palpation: normal PMI GI Common normals: Normal to inspection, nondistended, normoactive bowel sounds present DS: Data Data Completed and Pending Labs on day of discharge: Labs from last 24 hours 02/04/23 02/03/23 02/03/23 04:08 19:41 16:08 WBC 7.5 RBC 3.96 L Hgb 11.9 L Hct 36.5 L MCV 92.2 MCH 30.1 MCHC 32.6 RDW 14.8 Plt Count 205 MPV 7.9 L Neut % (Auto) 67.8 Lymph % (Auto) 15.2 L Mckenzie % (Auto) 13.5 H Eos % (Auto) 2.1 Baso % (Auto) 0.7 Neut # (Auto) 5.1 Lymph # (Auto) 1.1 L Mckenzie # (Auto) 1.0 H Eos # (Auto) 0.2 Baso # (Auto) 0.1 Abs Immat Gran (auto) 0.05 H Imm/Tot Granulo (auto) 0.7 H Sodium 135 L Potassium 4.3 Chloride 100 Carbon Dioxide 26.6 Anion Gap 12.7 BUN 28.0 H Creatinine 1.16 Est GFR ( Amer) >60 Est GFR (Non-Af Amer) >60 BUN/Creatinine Ratio 24.1 Glucose 80 Calcium 9.0 Magnesium Total Bilirubin 0.6 AST 14 L ALT 18 Alkaline Phosphatase 104 Troponin I High Sens 6.9 NT-Pro-B Natriuret Pep 234.0 Total Protein 6.5 Albumin 2.7 L Globulin 3.8 Albumin/Globulin Ratio 0.7 POC Glucose 86 166 H 02/03/23 02/03/23 11:00 09:26 WBC RBC Hgb Hct MCV MCH MCHC RDW Plt Count MPV Neut % (Auto) Lymph % (Auto) Mckenzie % (Auto) Eos % (Auto) Baso % (Auto) Neut # (Auto) Lymph # (Auto) Mckenzie # (Auto) Eos # (Auto) Baso # (Auto) Abs Immat Gran (auto) Imm/Tot Granulo (auto) Sodium 139 Potassium 4.4 Chloride 103 Carbon Dioxide 27.9 Anion Gap 12.5 BUN 17.0 Creatinine 1.11 Est GFR ( Amer) >60 Est GFR (Non-Af Amer) >60 BUN/Creatinine Ratio 15.3 Glucose 75 Calcium 9.2 Magnesium 2.0 Total Bilirubin 0.6 AST 14 L ALT 22 Alkaline Phosphatase 103 Troponin I High Sens 7.1 NT-Pro-B Natriuret Pep Total Protein 6.8 Albumin 2.9 L Globulin 3.9 Albumin/Globulin Ratio 0.7 POC Glucose 150 H Discharge Plan Discharge Disposition: Xfer SNF Condition: Fair Discharge Medications: Continued acetaminophen [Pain Relief (acetaminophen)] 325 mg tablet 650 mg PO Q6H PRN (Reason: pain) amiodarone 200 mg tablet 200 mg PO DAILY aspirin 81 mg tablet,chewable 81 mg PO DAILY atorvastatin 40 mg tablet 40 mg PO QPM cetirizine 10 mg tablet 10 mg PO DAILY clopidogrel 75 mg tablet 75 mg PO DAILY docusate sodium [Col-Rite] 100 mg capsule 100 mg PO BID furosemide 40 mg tablet 40 mg PO DAILY glimepiride 4 mg tablet 4 mg PO DAILY insulin glargine 100 unit/mL solution 20 unit subcut QPM insulin glargine [Lantus U-100 Insulin] 100 unit/mL solution 20 unit SUBCUT DAILY magnesium oxide 400 mg magnesium capsule 400 mg PO BID melatonin 10 mg capsule 10 mg PO DAILY metformin 500 mg tablet 500 mg PO BID metoprolol tartrate 25 mg tablet 12.5 mg PO BID pantoprazole 40 mg tablet,delayed release (DR/EC) 40 mg PO DAILY polyethylene glycol Powder 17 ea miscellaneous BID Patient Comments: 17 grams PO BID potassium chloride 20 mEq tablet extended release 20 meq PO DAILY senna 8.6 mg capsule 8.6 mg PO BID amiodarone [Pacerone] 400 mg tablet 400 mg PO BID melatonin 3 mg capsule 3 mg PO DAILY Patient Comments: PRN sleep oxycodone 5 mg capsule 5 mg PO Q6H Patient Comments: as needed PreserVision AREDS 4,296 mcg-226 mg-90 mg capsule 1 cap PO DAILY Forms: Portal Instructions Discharge location: [facility]
[2023-02-04 15:40] LABS: SARS-CoV-2 NAA NOT DETECTED (NOT DETECTE)
== END 2023-02-04 12:07 | DRG 291 ==
LOC: ER 02-03 02:01 → MS 02-03 06:00
PROVIDERS: Physician Assistant; Admitting Provider Internal Medicine; Emergency Provider Internal Medicine; PCP Family Medicine; Visit Provider Internal Medicine
DX: I11.0 Hypertensive heart disease with heart failure (principal); I50.41 Acute combined systolic (congestive) and diastolic (congestive) heart failure; J81.1 Chronic pulmonary edema; J98.11 Atelectasis; M25.50 Pain in unspecified joint; J44.9 Chronic obstructive pulmonary disease, unspecified; R07.9 Chest pain, unspecified; E11.9 Type 2 diabetes mellitus without complications; K21.9 Gastro-esophageal reflux disease without esophagitis; E83.42 Hypomagnesemia; Z95.1 Presence of aortocoronary bypass graft; M54.50 Low back pain, unspecified; E66.01 Morbid (severe) obesity due to excess calories; Z20.822 Contact with and (suspected) exposure to COVID-19; Z79.82 Long term (current) use of aspirin; Z79.02 Long term (current) use of antithrombotics/antiplatelets; Z79.84 Long term (current) use of oral hypoglycemic drugs; Z79.4 Long term (current) use of insulin; Z79.899 Other long term (current) drug therapy; Z79.891 Long term (current) use of opiate analgesic; Z87.891 Personal history of nicotine dependence; Z68.29 Body mass index [BMI] 29.0-29.9, adult
CPT/HCPCS: 36415; 71045; 71275; 80053; 83735; 83880; 84484; 85025; 85378; 85610; 87040; 87635; 87811; 93005; 94761; 96374; 96375; 97161; 99285; Q3014; Q9967; U0003

== ENCOUNTER 2023-02-08 12:38 | Outpatient (OUT) | payer MEDICARE, OTHER, SELFPAY ==
--- NOTE | 2023-02-08 13:00 | RT_ITS ---
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 Findings were considered accurate and reproducible, with exception of DLCO which did not meet ATS standards. Both pre- and post-bronchodilator values utilized for spirometry. No prior studies available for comparison. Spirometry (based on pre-bronchodilator values): -FEV1/FVC: Normal @ 65% -FEV1: Moderately-severe reduction @ 50% -FVC: Normal @ 55% -LFO30-35%: Reduced @ 37% -There is no significant bronchodilator response. Lung volumes by plethysmography: -RV: Normal @ 110% -TLC: Mildly reduced @ 76% Diffusion capacity: -DLCO: Very severe reduction @ 38% when corrected for Hb 13.1g/dL Flow-volume loop: -Moderate obstructive pattern Impressions: -Spirometry consistent with a moderately severe obstruction without bronchodilator response. Concomitant restrictive process based on mildly decreased TLC. Very severe diffusion impairment. No PFTs available for comparison, so it is difficult to determine if these findings could be amiodarone-related or not. Clinical correlation required. Electronically Signed On 02-08-2023 15:14:38 EDT by Raymundo Mike
[2023-02-08] MEDS: ALBUTEROL SULFATE 2.5 MG/3 ML VIAL NEB IH (13:21)
== END 2023-02-08 12:39 ==
PROVIDERS: PCP Family Medicine; Visit Provider Nurse Practitioner Family
DX: Z79.899 Other long term (current) drug therapy (principal)
CPT/HCPCS: 94060; 94726; 94729

== ENCOUNTER 2023-02-28 09:49 | Outpatient (OUT) | payer MEDICARE, OTHER, SELFPAY ==
[2023-02-28 10:22] LABS: Basophils Percent Auto 0.6 % (0.2-2.0); Eosinophils Absolute Auto 0.1 10^3/uL (0.0-0.7); Eosinophils Percent Auto 1.8 % (0.9-7.0); Hematocrit 41.8 % (42.0-54.0); Hemoglobin 13.1 g/dL (14.0-18.0); Immature Granulocytes Abs Auto 0.05 10^3/uL (0.00-0.03); Immature Granulocytes Pct Auto 0.7 % (0.0-0.5); Lymphocytes Absolute Auto 1.5 10^3/uL (1.2-3.8); Lymphocytes Percent Auto 20.9 % (20.5-60.0); Mean Corpuscular HGB Conc 31.3 g/dL (29.9-35.2); Mean Corpuscular Hemoglobin 28.4 pg (25.9-34.0); Mean Corpuscular Volume 90.5 fL (80.0-94.0); Mean Platelet Volume 8.1 fL (9.5-13.5); Monocytes Absolute Auto 0.8 10^3/uL (0.3-0.8); Monocytes Percent Auto 11.5 % (1.7-12.0); Neutrophils Absolute Auto 4.5 10^3/uL (1.4-6.5); Neutrophils Percent Auto 64.5 % (43.0-75.0); Platelet Count 222 10^3/uL (150-450); Red Blood Count 4.62 10^6/uL (4.70-6.10); Red Cell Distribution Width 14.8 % (11.0-15.0)
[2023-02-28 10:50] LABS: Free T4 1.24 ng/dL (0.76-1.46)
[2023-02-28 12:01] LABS: Alanine Aminotransferase 23 U/L (16-63); Albumin Globulin Ratio 0.8; Albumin Level 3.4 g/dL (3.4-5.0); Alkaline Phosphatase 123 U/L (46-116); Anion Gap 12.7; Aspartate Amino Transferase 16 U/L (15-37); BUN Creatinine Ratio 17.5; Bilirubin Total 0.5 mg/dL (0.2-1.0); Calcium 9.5 mg/dL (8.5-10.1); Carbon Dioxide 27.1 mmol/L (21.0-32.0); Chloride 106 mmol/L (98-107); Estimated GFR (African America 58 (>=60); Estimated GFR (Non-African Ame 47 (>=60); Globulin 4.1 g/dL; Glucose 184 mg/dL (74-106); Potassium 4.8 mmol/L (3.5-5.1); Sodium 141 mmol/L (136-145); Thyroid Stimulating Hormone 5.227 uIU/mL (0.358-3.740); Total Protein 7.5 g/dL (6.4-8.2)
== END 2023-02-28 09:50 | disposition home or self-care (01) ==
LOC: LAB 09:52
PROVIDERS: PCP Family Medicine; Visit Provider Family Medicine
DX: E11.9 Type 2 diabetes mellitus without complications (principal); I11.0 Hypertensive heart disease with heart failure; I50.30 Unspecified diastolic (congestive) heart failure
CPT/HCPCS: 36415; 80053; 83880; 84439; 84443; 85025

== ENCOUNTER 2023-07-09 12:18 | Outpatient (OUT) | payer MEDICARE, OTHER, SELFPAY ==
--- NOTE | 2023-07-09 12:26 | MR_ITS ---
The [address] [address] Patient Name: FRANCISCO TIDWELL MRN: [id number] date: 1940 Sex: M Assigned Patient Location: MRI Current Patient Location: MRI Accession/Order Number: [id number] Exam Date: 07/09/2023 12:30 Report Date: 07/09/2023 13:25 At the request of: FAUSTO JUAREZ Procedure: MR head/brain wo con MR head/brain wo con COMPARISON: None. CLINICAL HISTORY: Left-sided weakness since coronary bypass December 2022 TECHNIQUE: Sagittal, axial,and coronal T1, axial flair, axial T2 FSE, axial DWI FINDINGS: There is no diffusion abnormality. There is mild parenchymal volume loss. There are few scattered areas of T2 hyperintensity in the central white matter, periventricular white matter and magdalena. Small focal area of cortical encephalomalacia left inferior frontal lobe on axial images 14-16. No additional areas of cortical abnormality. No areas of hemosiderin staining. There is no mass, mass effect, nor hydrocephalus. The vascular flow voids are patent. The extra-axial structures appear normal. The internal auditory canals and mastoid air cells are unremarkable. Minimal ethmoid sinus mucosal disease. The orbits, sella, and craniocervical junction are unremarkable. MR/MR head/brain wo con IMPRESSION: MILD PARENCHYMAL VOLUME LOSS. NO MRI EVIDENCE FOR ACUTE ISCHEMIA. ONLY MILD T2 HYPERINTENSITY IN THE WHITE MATTER AND MAGDALENA. MOST LIKELY SEQUELA SMALL VESSEL ISCHEMIC CHANGE OR OTHER DEMYELINATING PROCESS. SMALL FOCAL AREA OF ENCEPHALOMALACIA LEFT INFERIOR FRONTAL LOBE. NO ACUTE INTRACRANIAL FINDINGS BY MRI WITHOUT CONTRAST Electronically authenticated by: LEANDER CHANDRA Date: 07/09/2023 13:25
== END 2023-07-09 12:19 | disposition home or self-care (01) ==
LOC: MRI 12:19
PROVIDERS: PCP Family Medicine; Visit Provider Family Medicine
DX: M62.81 Muscle weakness (generalized) (principal)
CPT/HCPCS: 70551

== ENCOUNTER 2023-07-16 09:45 | Outpatient (OUT) | payer MEDICARE, OTHER, SELFPAY ==
--- NOTE | 2023-07-16 09:49 | XR_ITS ---
The [address] [address] Patient Name: FRANCISCO TIDWELL MRN: [id number] date: 1940 Sex: M Assigned Patient Location: RAD Current Patient Location: RAD Accession/Order Number: [id number] Exam Date: 07/16/2023 10:05 Report Date: 07/16/2023 10:39 At the request of: FAUSTO JUAREZ Procedure: XR DEXA axial skeleton EXAMINATION: XR DEXA axial skeleton HISTORY: Senile Osteoporosis COMPARISON: No relevant comparison available. TECHNIQUE: Dual-energy X-ray absorptiometry (DXA) was performed. FINDINGS: SPINE ANALYSIS: Average bone mineral density is 1.248 g/cm2. T-score (standard deviation relative to young adult mean): 0.1 . HIP ANALYSIS: Lowest bone mineral density is within the right femoral neck, 0.940 g/cm2. T-score (standard deviation relative to young adult mean): -1.0 . XR/XR DEXA axial skeleton IMPRESSION: World [employer] Organization Classification: Osteopenia - Moderate Fracture Risk Electronically authenticated by: RHONDA GOMEZ Date: 07/16/2023 10:39
== END 2023-07-16 09:46 | disposition home or self-care (01) ==
LOC: RAD 09:46
PROVIDERS: PCP Family Medicine; Visit Provider Family Medicine
DX: M81.0 Age-related osteoporosis without current pathological fracture (principal)
CPT/HCPCS: 77080

== ENCOUNTER 2024-01-14 07:30 | Outpatient (OUT) | payer MEDICARE, OTHER, SELFPAY ==
--- OUTSIDE RECORDS SUMMARY | 2024-01-14 07:53 | XMS_ITS | CCD ---
Author Organization [facility] Care Team Providers Care Table Setter Name Role Phone ANN ., DR LAMBERT Admitting Unavailable FRACISCOY ., DR LAMBERT Attending Unavailable HOY ., DR LAMBERT Consulting Unavailable HOY ., DR LAMBERT Primary Care Unavailable MOUKARBEL, DR FARMER Consulting Unavailable DARREN ., KELVIN Consulting Unavailable TIFFANY TORO Consulting Unavailable HOY ., DR LAMBERT Admitting Unavailable HOY ., DR LAMBERT Attending Unavailable HOY ., DR LAMBERT Consulting Unavailable HOY ., DR LAMBERT Primary Care Unavailable PARENTEAU, MATT Referring Unavailable CAROL GIMENEZ Referring Unavailabl e PARENTEAU, MATT Referring Unavailable MARCIA DURAND Referring Unavailab NORM Chavez Referring Unavailable CAROL GIMENEZ Referring Unavailabl e HOYFAUSTO Referring Unavailable HENRY, ADAN Admitting Unavailable PARENTCINTHYAU, MATT Attending Unavailable CAROL GIMENEZ Referring Unavailabl e KUKELYKOCAROL IGLESIAS Referring Unavailabl e CAROL GIMENEZ Referring Unavailabl e PARENTEAU, MATT Referring Unavailable CHRISTIAN LOWRY Attending Unavailable CHRISTIAN LOWRY Attending Unavailable NORM PERKINS Attending Unavailable CAROL GIMENEZ Referring Unavailabl e MOUKARBELDARIAN Attending Unavailable CAROL GIMENEZ Referring Unavailabl e MOUKARBELDARIAN Referring Unavailable DARIAN LAZCANO Referring Unavailable NORM PERKINS Referring Unavailable CAROL GIMENEZ Referring Unavailabl e CAROL GIMENEZ Referring Unavailabl e MADDIENORM Referring Unavailable CAROL GIMENEZ Referring Unavailabl e KUKELYKOCAROL IGLESIAS Referring Unavailabl e Problems Active Problems Problem Classification Problem Date Documented Date Episodic/Chronic Cardiac dysrhythmias (2 sources) Unspecified atrial fibrillation; Translations: [Unspecified atrial fibrillation] Onset: 01-21-2023 Chronic Chronic obstructive pulmonary disease and bronchiectasis (5 sources) Chronic obstructive pulmonary disease with (acute) lower respiratory infection; Translations: [Unspecified chronic bronchitis] Onset: 02-04-2022 Chronic Congestive heart failure; nonhypertensive (1 source) Unspecified diastolic (congestive) heart failure; Translations: [UNSPECIFIED DIASTOLIC HEART FAILURE] Onset: 02-04-2022 Chronic Coronary atherosclerosis and other heart disease (6 sources) Atherosclerotic heart disease of [place] coronary artery with other forms of angina pectoris; Translations: [Unstable angina] Onset: 01-09-2023 Chronic Hypertension with complications and secondary hypertension (1 source) Hypertensive heart disease with heart failure; Translations: [HTN HEART DISEASE W/HEART FAIL] Onset: 02-04-2022 Chronic Past or Other Problems Problem Classification Problem Date Documented Da te Episodic/Chronic Acute bronchitis (4 sources) Acute bronchitis, unspecified; Translations: [ACUTE BRONCHITIS UNSPECIFIED] Onset: 02-01-2022 Episodic Complications of surgical procedures or medical care (2 sources) Other postprocedural complications and disorders of the circulatory system, not elsewhere classified; Translations: [Other postprocedural complications and disorders of the circulatory system, not elsewhere classified] Onset: 01-21-2023 Episodic Coronary atherosclerosis and other heart disease (2 sources) Presence of aortocoronary bypass graft; Translations: [Presence of aortocoronary bypass graft] Onset: 01-09-2023 Episodic Nonspecific chest pain (1 source) Chest pain, unspecified; Translations: [CHEST PAIN UNSPECIFIED] Onset: 02-04-2022 Episodic Other screening for suspected conditions (not mental disorders or infectious disease) (2 sources) Abnormal findings on diagnostic imaging of heart and coronary circulation; Translations: [Abnormal findings on diagnostic imaging of heart and coronary circulation] Onset: 01-11-2023 Episodic Results Test Name Value Interpretation Reference Range Facility [id number] Blackman's office called wanting to know if patient can stop amiodarone, as he does not feel well on it. Please advise. Thanks. [facility] Orders Onlyon 01-31-2023 Orders Only [facility] 37on 01-29-2023 37 [facility] 3001-23-2023 30 The patient is Moderately Stable - Low risk of patient condition declining or worsening The patient's goals for the shift include Comfort, rest The clinical goals for the shift include vss, safety Normal [facility] BASIC METABOLIC PANELon 05 Anion gap [Moles/Vol] 12 mmol/L Normal 7-20 [facility] Comment on above: Performed By: #### L [id number] ####[facility] ([facility])[address] [facility] [place] [address] Calcium [Mass/Vol] 8.6 mg/dL Normal 8.6-10.3 [facility] Comment on above: Performed By: #### L [id number] ####[facility] ([facility])[address] [place] [address] Chloride [Moles/Vol] 101 mmol/L Normal 98-107 [facility] Comment on above: Performed By: #### L [id number] ####[facility] ([facility])[address] [facility] [place] [address] CO2 [Moles/Vol] 28 mmol/L Normal 21-31 [facility] Comment on above: Performed By: #### L [id number] ####[facility] ([facility])[address] [facility] [place] [address] Creatinine [Mass/Vol] 0.85 mg/dL Normal 0.70-1.30 [facility] Comment on above: Performed By: #### L [id number] ####[facility] ([facility])[address] [place] [address] GLOMERULAR FILTRATION RATE ML/MIN/1.73 SQ M.PREDICTED 87.3 mL/min/1.73m*2 Normal >60.0 [facility] Comment on above: Result Comment: The [facility]???s estimated glomerular filtration rate (eGFR) will no longer include consideration of race in its calculation. The National Kidney Foundation???s eGFR Task Force developed new recommendations for the estimation of the glomerular filtration rate in the [place] They recommend immediate implementation of the new equation refit without the race variable in all laboratories because the calculation does not include race. In addition to not including race in the calculation and reporting, it included diversity in its development, and has acceptable performance characteristics and potential consequences that do not disproportionately affect any one group of individuals. Performed By: #### L [id number] ####[facility] ([facility])[address] [place] [address] Glucose [Mass/Vol] 40 mg/dL Invalid Interpretation Code 70-100 [facility] Comment on above: Performed By: #### L [id number] ####[facility] ([facility])[address] [place] [address] Potassium [Moles/Vol] 4.2 mmol/L Normal 3.5-5.1 [facility] Comment on above: Performed By: #### L [id number] ####[facility] ([facility])[address] [place] [address] Sodium [Moles/Vol] 137 mmol/L Normal 136-145 [facility] Comment on above: Performed By: #### L [id number] ####[facility] ([facility])[address] [place] [address] Urea nitrogen [Mass/Vol] 23 mg/dL Normal 7-25 [facility] Comment on above: Performed By: #### L [id number] ####[facility] ([facility])[address] [place] [address] UREA NITROGEN/CREATININ E (MASS RATIO) IN SER/PLAS 27.[address] [facility] Comment on above: Performed By: #### L [id number] ####[facility] ([facility])[address] [place] [address] CBCon 01-23-2023 Erythrocyte distribution width (RBC) [Ratio] 14.4 % Normal 11.5-15.0 [facility] Comment on above: Performed By: #### L [id number] ####[facility] ([facility])[address] [place] [address] ERYTHROCYTE MEAN CORPUSCULAR HEMOGLOBIN CONCENTRATION (G/DL) BY AUTOMATED 32.8 g/dL Normal 32.0-35.0 [facility] Comment on above: Performed By: #### L [id number] ####[facility] ([facility])[address] [place] [address] Hematocrit (Bld) [Volume fraction] 32.3 % Low 39.0-55.0 [facility] Comment on above: Performed By: #### L [id number] ####[facility] ([facility])[address] [place] [address] Hemoglobin (Bld) [Mass/Vol] 10.6 g/dL Low 13.0-17.0 [facility] Comment on above: Performed By: #### L [id number] ####[facility] ([facility])[address] [place] [address] MCH (RBC) [Entitic mass] 30.4 pg Normal 27.0-33.0 [facility] Comment on above: Performed By: #### L [id number] ####[facility] ([facility])[address] [place] [address] MCV (RBC) [Entitic vol] 92.6 fL Normal 82.0-98.0 [facility] Comment on above: Performed By: #### L [id number] ####[facility] ([facility])[address] [place] [address] PLATELETS (10*3/UL) IN BLOOD AUTOMATED COUNT 325 10*3/uL Normal 150-400 [facility] Comment on above: Performed By: #### L [id number] ####[facility] ([facility])[address] [place] [address] RBC (Bld) [#/Vol] 3.49 10*6/uL Low 4.20-5.70 [facility] Comment on above: Performed By: #### L [id number] ####[facility] ([facility])[address] [place] [address] WBC (Bld) [#/Vol] 10.52 10*3/uL Normal 4.00-10.60 [facility] Comment on above: Performed By: #### L [id number] ####[facility] ([facility])[address] [place] [address] DSon 01-23-[address] [facility] MAGNESIUMon 01-23-2023 Magnesium [Mass/Vol] 1.9 mg/dL Normal 1.9-2.7 [facility] Comment on above: Performed By: #### L [id number] ####[facility] ([facility])[address] [place] [address] NURSNOTEon 01-23-2023 NURSNOTE Report called to [facility] in [place]. Normal [facility] POCT GLUCOSE METER UNSOLICIT ED RESULTSon 01-23-2023 Glucose [Mass/Vol] 157 mg/dL High 70-105 [facility] Comment on above: Result Comment: [email or web address] Performed By: #### L [id number] ####[facility] ([facility])[address] [place] [address] Glucose [Mass/Vol] 119 mg/dL High 70-105 [facility] Comment on above: Result Comment: [email or web address] Performed By: #### L [id number] ####[facility] ([facility])[address] [place] [address] Glucose [Mass/Vol] 109 mg/dL High 70-105 [facility] Comment on above: Result Comment: ncha mpi Performed By: #### L [id number] ####[facility] ([facility])[address] [place] [address] 30on 01-22-2023 30 The patient is Moderately Stable - Low risk of patient condition declining or worsening The patient's goals for the shift include comfort, rest The clinical goals for the shift include Maintain NSR and Stable VS Normal [facility] [address] [facility] 30 The patient is Moderately Stable - Low risk of patient condition declining or worsening The patient's goals for the shift include Discharge to rehab The clinical goals for the shift include Maintain NSR Normal [facility] BASIC METABOLIC PANELon 12-26 Anion gap [Moles/Vol] 11 mmol/L Normal 7-20 [facility] Comment on above: Performed By: #### L [id number] ####[facility] ([facility])[address] [place] [address] Calcium [Mass/Vol] 8.3 mg/dL Low 8.6-10.3 [facility] Comment on above: Performed By: #### L [id number] ####[facility] ([facility])[address] [place] [address] Chloride [Moles/Vol] 99 mmol/L Normal 98-107 [facility] Comment on above: Performed By: #### L [id number] ####[facility] ([facility])[address] [place] [address] CO2 [Moles/Vol] 28 mmol/L Normal 21-31 [facility] Comment on above: Performed By: #### L [id number] ####[facility] ([facility])[address] [place] [address] Creatinine [Mass/Vol] 0.81 mg/dL Normal 0.70-1.30 [facility] Comment on above: Performed By: #### L [id number] ####[facility] ([facility])[address] [facility] [place] [address] GLOMERULAR FILTRATION RATE ML/MIN/1.73 SQ M.PREDICTED 88.6 mL/min/1.73m*2 Normal >60.0 [facility] Comment on above: Result Comment: The [facility]???s estimated glomerular filtration rate (eGFR) will no longer include consideration of race in its calculation. The National Kidney Foundation???s eGFR Task Force developed new recommendations for the estimation of the glomerular filtration rate in the [place] They recommend immediate implementation of the new equation refit without the race variable in all laboratories because the calculation does not include race. In addition to not including race in the calculation and reporting, it included diversity in its development, and has acceptable performance characteristics and potential consequences that do not disproportionately affect any one group of individuals. Performed By: #### L [id number] ####[facility] ([facility])[address] [place] [address] Glucose [Mass/Vol] 56 mg/dL Low 70-100 [facility] Comment on above: Performed By: #### L [id number] ####[facility] ([facility])[address] [place] [address] Potassium [Moles/Vol] 3.8 mmol/L Normal 3.5-5.1 [facility] Comment on above: Performed By: #### L [id number] ####[facility] ([facility])[address] [place] [address] Sodium [Moles/Vol] 134 mmol/L Low 136-145 [facility] Comment on above: Performed By: #### L [id number] ####[facility] ([facility])[address] [place] [address] Urea nitrogen [Mass/Vol] 22 mg/dL Normal 7-25 [facility] Comment on above: Performed By: #### L [id number] ####[facility] ([facility])[address] [place] [address] UREA NITROGEN/CREATININ E (MASS RATIO) IN SER/PLAS 27.[address] [facility] Comment on above: Performed By: #### L [id number] ####[facility] ([facility])[address] [place] [address] CBCon 01-22-2023 Erythrocyte distribution width (RBC) [Ratio] 14.1 % Normal 11.5-15.0 [facility] Comment on above: Performed By: #### L [id number] ####[facility] ([facility])[address] [place] [address] ERYTHROCYTE MEAN CORPUSCULAR HEMOGLOBIN CONCENTRATION (G/DL) BY AUTOMATED 33.3 g/dL Normal 32.0-35.0 [facility] Comment on above: Performed By: #### L [id number] ####[facility] ([facility])[address] [place] [address] Hematocrit (Bld) [Volume fraction] 30.6 % Low 39.0-55.0 [facility] Comment on above: Performed By: #### L [id number] ####[facility] ([facility])[address] [place] [address] Hemoglobin (Bld) [Mass/Vol] 10.2 g/dL Low 13.0-17.0 [facility] Comment on above: Performed By: #### L [id number] ####[facility] ([facility])[address] [place] [address] MCH (RBC) [Entitic mass] 30.4 pg Normal 27.0-33.0 [facility] Comment on above: Performed By: #### L [id number] ####[facility] ([facility])[address] [place] [address] MCV (RBC) [Entitic vol] 91.3 fL Normal 82.0-98.0 [facility] Comment on above: Performed By: #### L [id number] ####[facility] ([facility])[address] [place] [address] PLATELETS (10*3/UL) IN BLOOD AUTOMATED COUNT 272 10*3/uL Normal 150-400 [facility] Comment on above: Performed By: #### L [id number] ####[facility] ([facility])[address] [place] [address] RBC (Bld) [#/Vol] 3.35 10*6/uL Low 4.20-5.70 [facility] Comment on above: Performed By: #### L [id number] ####[facility] ([facility])[address] [place] [address] WBC (Bld) [#/Vol] 9.92 10*3/uL Normal 4.00-10.60 [facility] Comment on above: Performed By: #### L [id number] ####[facility] ([facility])[address] [place] [address] MAGNESIUMon 01-22-2023 Magnesium [Mass/Vol] 2.0 mg/dL Normal 1.9-2.7 [facility] Comment on above: Performed By: #### L [id number] ####[facility] ([facility])[address] [place] [address] POCT GLUCOSE METER UNSOLICIT ED RESULTSon 01-22-2023 Glucose [Mass/Vol] 88 mg/dL Normal 70-105 [facility] Comment on above: Result Comment: cgra cristobal Performed By: #### L [id number] ####[facility] ([facility])[address] [place] [address] Glucose [Mass/Vol] 62 mg/dL Low 70-105 [facility] Comment on above: Result Comment: [email or web address] Performed By: #### L [id number] ####[facility] ([facility])[address] [place] [address] Glucose [Mass/Vol] 150 mg/dL High 70-105 [facility] Comment on above: Result Comment: [email or web address] Performed By: #### L [id number] ####[facility] ([facility])[address] [place] [address] Glucose [Mass/Vol] 70 mg/dL Normal 70-105 [facility] Comment on above: Result Comment: [email or web address] Performed By: #### L [id number] ####[facility] ([facility])[address] [place] [address] 30on 01-21-[address] [facility] 30 The patient is Moderately Stable - Low risk of patient condition declining or worsening The patient's goals for the shift include Discharge to rehab The clinical goals for the shift include stable VS Normal [facility] BASIC METABOLIC PANELon 12-26 Anion gap [Moles/Vol] 12 mmol/L Normal 7-20 [facility] Comment on above: Performed By: #### L [id number] ####[facility] ([facility])[address] [place] [address] Calcium [Mass/Vol] 8.5 mg/dL Low 8.6-10.3 [facility] Comment on above: Performed By: #### L [id number] ####[facility] ([facility])[address] [place] [address] Chloride [Moles/Vol] 102 mmol/L Normal 98-107 [facility] Comment on above: Performed By: #### L [id number] ####[facility] ([facility])[address] [place] [address] CO2 [Moles/Vol] 27 mmol/L Normal 21-31 [facility] Comment on above: Performed By: #### L [id number] ####[facility] ([facility])[address] [place] [address] Creatinine [Mass/Vol] 0.76 mg/dL Normal 0.70-1.30 [facility] Comment on above: Performed By: #### L [id number] ####[facility] ([facility])[address] [place] [address] GLOMERULAR FILTRATION RATE ML/MIN/1.73 SQ M.PREDICTED 90.3 mL/min/1.73m*2 Normal >60.0 [facility] Comment on above: Result Comment: The [facility]???s estimated glomerular filtration rate (eGFR) will no longer include consideration of race in its calculation. The National Kidney Foundation???s eGFR Task Force developed new recommendations for the estimation of the glomerular filtration rate in the [place] They recommend immediate implementation of the new equation refit without the race variable in all laboratories because the calculation does not include race. In addition to not including race in the calculation and reporting, it included diversity in its development, and has acceptable performance characteristics and potential consequences that do not disproportionately affect any one group of individuals. Performed By: #### L [id number] ####[facility] ([facility])[address] [place] [address] Glucose [Mass/Vol] 81 mg/dL Normal 70-100 [facility] Comment on above: Performed By: #### L [id number] ####[facility] ([facility])[address] [place] [address] Potassium [Moles/Vol] 3.6 mmol/L Normal 3.5-5.1 [facility] Comment on above: Performed By: #### L [id number] ####[facility] ([facility])[address] [place] [address] Sodium [Moles/Vol] 137 mmol/L Normal 136-145 [facility] Comment on above: Performed By: #### L [id number] ####[facility] ([facility])[address] [place] [address] Urea nitrogen [Mass/Vol] 27 mg/dL High 7-25 [facility] Comment on above: Performed By: #### L [id number] ####[facility] ([facility])[address] [place] [address] UREA NITROGEN/CREATININ E (MASS RATIO) IN SER/PLAS 35.[address] [facility] Comment on above: Performed By: #### L [id number] ####[facility] ([facility])[address] [place] [address] CBCon 01-21-2023 Erythrocyte distribution width (RBC) [Ratio] 14.2 % Normal 11.5-15.0 [facility] Comment on above: Performed By: #### L [id number] ####[facility] ([facility])[address] [place] [address] ERYTHROCYTE MEAN CORPUSCULAR HEMOGLOBIN CONCENTRATION (G/DL) BY AUTOMATED 33.3 g/dL Normal 32.0-35.0 [facility] Comment on above: Performed By: #### L [id number] ####[facility] ([facility])[address] [place] [address] Hematocrit (Bld) [Volume fraction] 33.9 % Low 39.0-55.0 [facility] Comment on above: Performed By: #### L [id number] ####[facility] ([facility])[address] [place] [address] Hemoglobin (Bld) [Mass/Vol] 11.3 g/dL Low 13.0-17.0 [facility] Comment on above: Performed By: #### L [id number] ####[facility] ([facility])[address] [place] [address] MCH (RBC) [Entitic mass] 30.6 pg Normal 27.0-33.0 [facility] Comment on above: Performed By: #### L [id number] ####[facility] ([facility])[address] [place] [place] [address] MCV (RBC) [Entitic vol] 91.9 fL Normal 82.0-98.0 [facility] Comment on above: Performed By: #### L [id number] ####[facility] ([facility])[address] [place] [address] PLATELETS (10*3/UL) IN BLOOD AUTOMATED COUNT 234 10*3/uL Normal 150-400 [facility] Comment on above: Performed By: #### L [id number] ####[facility] ([facility])[address] [place] [address] RBC (Bld) [#/Vol] 3.69 10*6/uL Low 4.20-5.70 [facility] Comment on above: Performed By: #### L [id number] ####[facility] ([facility])[address] [place] [address] WBC (Bld) [#/Vol] 9.53 10*3/uL Normal 4.00-10.60 [facility] Comment on above: Performed By: #### L [id number] ####[facility] ([facility])[address] [place] [address] MAGNESIUMon 01-21-2023 Magnesium [Mass/Vol] 1.7 mg/dL Low 1.9-2.7 [facility] Comment on above: Performed By: #### L [id number] ####[facility] ([facility])[address] [place] [address] POCT GLUCOSE METER UNSOLICIT ED RESULTSon 01-21-2023 Glucose [Mass/Vol] 133 mg/dL High 70-105 [facility] Comment on above: Result Comment: cgra cristobal Performed By: #### L [id number] ####[facility] ([facility])[address] [place] [address] Glucose [Mass/Vol] 181 mg/dL High 70-105 [facility] Comment on above: Result Comment: [email or web address] Performed By: #### L [id number] ####[facility] ([facility])[address] [place] [address] Glucose [Mass/Vol] 172 mg/dL High 70-105 [facility] Comment on above: Result Comment: [email or web address] Performed By: #### L [id number] ####[facility] ([facility])[address] [place] [address] Glucose [Mass/Vol] 96 mg/dL Normal 70-105 [facility] Comment on above: Result Comment: [email or web address] Performed By: #### L [id number] ####[facility] ([facility]AKER)[address] [place] [address] 30on 01-20-[address] [facility] [address] [facility] BASIC METABOLIC PANELon 12-26 Anion gap [Moles/Vol] 12 mmol/L Normal 7-20 [facility] Comment on above: Performed By: #### L [id number] ####[facility] ([facility]AKER)[address] [place] [address] Calcium [Mass/Vol] 8.7 mg/dL Normal 8.6-10.3 [facility] Comment on above: Performed By: #### L [id number] ####[facility] ([facility])[address] [place] [address] Chloride [Moles/Vol] 102 mmol/L Normal 98-107 [facility] Comment on above: Performed By: #### L [id number] ####[facility] ([facility])[address] [place] [address] CO2 [Moles/Vol] 28 mmol/L Normal 21-31 [facility] Comment on above: Performed By: #### L [id number] ####[facility] ([facility])[address] [place] [address] Creatinine [Mass/Vol] 0.78 mg/dL Normal 0.70-1.30 [facility] Comment on above: Performed By: #### L [id number] ####[facility] ([facility])[address] [place] [address] GLOMERULAR FILTRATION RATE ML/MIN/1.73 SQ M.PREDICTED 89.6 mL/min/1.73m*2 Normal >60.0 [facility] Comment on above: Result Comment: The [facility]???s estimated glomerular filtration rate (eGFR) will no longer include consideration of race in its calculation. The National Kidney Foundation???s eGFR Task Force developed new recommendations for the estimation of the glomerular filtration rate in the [place] They recommend immediate implementation of the new equation refit without the race variable in all laboratories because the calculation does not include race. In addition to not including race in the calculation and reporting, it included diversity in its development, and has acceptable performance characteristics and potential consequences that do not disproportionately affect any one group of individuals. Performed By: #### L [id number] ####[facility] ([facility])[address] [place] [address] Glucose [Mass/Vol] 88 mg/dL Normal 70-100 [facility] Comment on above: Performed By: #### L [id number] ####[facility] ([facility])[address] [place] [address] Potassium [Moles/Vol] 3.6 mmol/L Normal 3.5-5.1 [facility] Comment on above: Performed By: #### L [id number] ####[facility] ([facility])[address] [place] [address] Sodium [Moles/Vol] 138 mmol/L Normal 136-145 [facility] Comment on above: Performed By: #### L [id number] ####[facility] ([facility])[address] [place] [address] Urea nitrogen [Mass/Vol] 26 mg/dL High 7-25 [facility] Comment on above: Performed By: #### L [id number] ####[facility] ([facility])[address] [place] [address] UREA NITROGEN/CREATININ E (MASS RATIO) IN SER/PLAS 33.[address] [facility] Comment on above: Performed By: #### L [id number] ####[facility] ([facility])[address] [place] [address] CBCon 01-20-2023 Erythrocyte distribution width (RBC) [Ratio] 14.2 % Normal 11.5-15.0 [facility] Comment on above: Performed By: #### L [id number] ####[facility] ([facility])[address] [place] [address] ERYTHROCYTE MEAN CORPUSCULAR HEMOGLOBIN CONCENTRATION (G/DL) BY AUTOMATED 33.2 g/dL Normal 32.0-35.0 [facility] Comment on above: Performed By: #### L [id number] ####[facility] ([facility])[address] [place] [address] Hematocrit (Bld) [Volume fraction] 32.5 % Low 39.0-55.0 [facility] Comment on above: Performed By: #### L [id number] ####[facility] [place] [address] Hemoglobin (Bld) [Mass/Vol] 10.8 g/dL Low 13.0-17.0 [facility] Comment on above: Performed By: #### L [id number] ####[facility] [place] [address] MCH (RBC) [Entitic mass] 30.9 pg Normal 27.0-33.0 [facility] Comment on above: Performed By: #### L [id number] ####[facility] ([facility])[address] [place] [address] MCV (RBC) [Entitic vol] 92.9 fL Normal 82.0-98.0 [facility] Comment on above: Performed By: #### L [id number] ####[facility] ([facility])[address] [place] [address] PLATELETS (10*3/UL) IN BLOOD AUTOMATED COUNT 201 10*3/uL Normal 150-400 [facility] Comment on above: Performed By: #### L [id number] ####[facility] ([facility])[address] [place] [address] RBC (Bld) [#/Vol] 3.50 10*6/uL Low 4.20-5.70 [facility] Comment on above: Performed By: #### L [id number] ####[facility] ([facility])[address] [place] [address] WBC (Bld) [#/Vol] 10.39 10*3/uL Normal 4.00-10.60 [facility] Comment on above: Performed By: #### L [id number] ####[facility] ([facility])[address] [place] [address] MAGNESIUMon 01-20-2023 Magnesium [Mass/Vol] 1.7 mg/dL Low 1.9-2.7 [facility] Comment on above: Performed By: #### L [id number] ####[facility] ([facility])[address] [place] [address] NURSNOTEon 01-20-2023 NURSNOTE Assisted pt out of bathroom, monitor showing SVT. Dr Augustine notified per phone re:pt in SVT in 190s, vitals as charted, pt c/o shortness of breath. Orders received; see MAR.Cont to monitor. Normal [facility] NURSNOTE Dr Augustine notified pt appears to be Afib ranging hr 120-140bpm. Order received; see MAR Normal [facility] POCT GLUCOSE METER UNSOLICIT ED RESULTSon 01-20-2023 Glucose [Mass/Vol] 173 mg/dL High 70-105 [facility] Comment on above: Result Comment: atru ss Performed By: #### L [id number] ####[facility] ([facility])[address] [place] [address] Glucose [Mass/Vol] 69 mg/dL Low 70-105 [facility] Comment on above: Result Comment: [email or web address] Performed By: #### L [id number] ####[facility] ([facility]ER)[address] [place] [address] Glucose [Mass/Vol] 142 mg/dL High 70-105 [facility] Comment on above: Result Comment: [email or web address] Performed By: #### L [id number] ####[facility] ([facility]ER)[address] [place] [address] Glucose [Mass/Vol] 120 mg/dL High 70-105 [facility] Comment on above: Result Comment: [email or web address] Performed By: #### L [id number] ####[facility] ([facility])[address] [place] [address] 30on 01-19-[address] [facility] BASIC METABOLIC PANELon 05- Anion gap [Moles/Vol] 12 mmol/L Normal 7-20 [facility] Comment on above: Performed By: #### L [id number] ####[facility] ([facility])[address] [place] [address] Calcium [Mass/Vol] 8.3 mg/dL Low 8.6-10.3 [facility] Comment on above: Performed By: #### L [id number] ####[facility] ([facility])[address] [place] [address] Chloride [Moles/Vol] 103 mmol/L Normal 98-107 [facility] Comment on above: Performed By: #### L [id number] ####[facility] ([facility]ER)[address] [place] [address] CO2 [Moles/Vol] 26 mmol/L Normal 21-31 [facility] Comment on above: Performed By: #### L [id number] ####[facility] (BEAKER)[address] [place] [address] Creatinine [Mass/Vol] 0.78 mg/dL Normal 0.70-1.30 [facility] Comment on above: Performed By: #### L [id number] ####[facility] ([facility])[address] [place] [address] GLOMERULAR FILTRATION RATE ML/MIN/1.73 SQ M.PREDICTED 89.6 mL/min/1.73m*2 Normal >60.0 [facility] Comment on above: Result Comment: The [facility]???s estimated glomerular filtration rate (eGFR) will no longer include consideration of race in its calculation. The National Kidney Foundation???s eGFR Task Force developed new recommendations for the estimation of the glomerular filtration rate in the [place] They recommend immediate implementation of the new equation refit without the race variable in all laboratories because the calculation does not include race. In addition to not including race in the calculation and reporting, it included diversity in its development, and has acceptable performance characteristics and potential consequences that do not disproportionately affect any one group of individuals. Performed By: #### L [id number] ####[facility] ([facility])[address] [place] [address] Glucose [Mass/Vol] 161 mg/dL High 70-100 [facility] Comment on above: Performed By: #### L [id number] ####[facility] ([facility])[address] [place] [address] Potassium [Moles/Vol] 4.0 mmol/L Normal 3.5-5.1 [facility] Comment on above: Performed By: #### L [id number] ####[facility] ([facility])[address] [place] [address] Sodium [Moles/Vol] 137 mmol/L Normal 136-145 [facility] Comment on above: Performed By: #### L [id number] ####[facility] ([facility])[address] [place] [address] Urea nitrogen [Mass/Vol] 26 mg/dL High 7-25 [facility] Comment on above: Performed By: #### L [id number] ####[facility] ([facility])[address] [place] [address] UREA NITROGEN/CREATININ E (MASS RATIO) IN SER/PLAS 33.[address] [facility] Comment on above: Performed By: #### L [id number] ####[facility] ([facility])[address] [place] [address] CBCon 01-19-2023 Erythrocyte distribution width (RBC) [Ratio] 14.6 % Normal 11.5-15.0 [facility] Comment on above: Performed By: #### L [id number] ####[facility] ([facility])[address] [place] [address] ERYTHROCYTE MEAN CORPUSCULAR HEMOGLOBIN CONCENTRATION (G/DL) BY AUTOMATED 33.6 g/dL Normal 32.0-35.0 [facility] Comment on above: Performed By: #### L [id number] ####[facility] ([facility])[address] [place] [address] Hematocrit (Bld) [Volume fraction] 31.8 % Low 39.0-55.0 [facility] Comment on above: Performed By: #### L [id number] ####[facility] ([facility])[address] [place] [address] Hemoglobin (Bld) [Mass/Vol] 10.7 g/dL Low 13.0-17.0 [facility] Comment on above: Performed By: #### L [id number] ####[facility] ([facility])[address] [place] [address] MCH (RBC) [Entitic mass] 30.7 pg Normal 27.0-33.0 [facility] Comment on above: Performed By: #### L [id number] ####[facility] ([facility])[address] [place] [address] MCV (RBC) [Entitic vol] 91.1 fL Normal 82.0-98.0 [facility] Comment on above: Performed By: #### L [id number] ####[facility] ([facility])[address] [place] [address] PLATELETS (10*3/UL) IN BLOOD AUTOMATED COUNT 170 10*3/uL Normal 150-400 [facility] Comment on above: Performed By: #### L [id number] ####[facility] ([facility])[address] [place] [address] RBC (Bld) [#/Vol] 3.49 10*6/uL Low 4.20-5.70 [facility] Comment on above: Performed By: #### L [id number] ####[facility] ([facility])[address] [place] [address] WBC (Bld) [#/Vol] 12.49 10*3/uL High 4.00-10.60 [facility] Comment on above: Performed By: #### L [id number] ####[facility] ([facility])[address] [place] [address] MAGNESIUMon 01-19-2023 Magnesium [Mass/Vol] 1.8 mg/dL Low 1.9-2.7 [facility] Comment on above: Performed By: #### L [id number] ####[facility] ([facility])[address] [place] [address] POCT GLUCOSE METER UNSOLICIT ED RESULTSon 01-19-2023 Glucose [Mass/Vol] 106 mg/dL High 70-105 [facility] Comment on above: Result Comment: ebeg in Performed By: #### L [id number] ####[facility] ([facility])[address] [place] [address] Glucose [Mass/Vol] 87 mg/dL Normal 70-105 [facility] Comment on above: Result Comment: [email or web address] Performed By: #### L [id number] ####[facility] ([facility])[address] [place] [address] Glucose [Mass/Vol] 249 mg/dL High 70-105 [facility] Comment on above: Result Comment: [email or web address] [email or web address] Performed By: #### L [id number] ####[facility] ([facility]ER)[address] [place] [address] Glucose [Mass/Vol] 151 mg/dL High 70-105 [facility] Comment on above: Result Comment: [email or web address] Performed By: #### L [id number] ####[facility] ([facility]ER)[address] [place] [address] 30on 01-18-[address] [facility] [address] [facility] BASIC METABOLIC PANELon 12-26 Anion gap [Moles/Vol] 13 mmol/L Normal 7-20 [facility] Comment on above: Performed By: #### L [id number] ####[facility] ([facility]ER)[address] [place] [address] Calcium [Mass/Vol] 8.0 mg/dL Low 8.6-10.3 [facility] Comment on above: Performed By: #### L [id number] ####[facility] ([facility]ER)[address] [place] [address] Chloride [Moles/Vol] 104 mmol/L Normal 98-107 [facility] Comment on above: Performed By: #### L [id number] ####[facility] ([facility]ER)[address] [place] [address] CO2 [Moles/Vol] 25 mmol/L Normal 21-31 [facility] Comment on above: Performed By: #### L [id number] ####[facility] ([facility])[address] [place] [address] Creatinine [Mass/Vol] 0.85 mg/dL Normal 0.70-1.30 [facility] Comment on above: Performed By: #### L [id number] ####[facility] ([facility])[address] [place] [address] GLOMERULAR FILTRATION RATE ML/MIN/1.73 SQ M.PREDICTED 87.3 mL/min/1.73m*2 Normal >60.0 [facility] Comment on above: Result Comment: The [facility]???s estimated glomerular filtration rate (eGFR) will no longer include consideration of race in its calculation. The National Kidney Foundation???s eGFR Task Force developed new recommendations for the estimation of the glomerular filtration rate in the [place] They recommend immediate implementation of the new equation refit without the race variable in all laboratories because the calculation does not include race. In addition to not including race in the calculation and reporting, it included diversity in its development, and has acceptable performance characteristics and potential consequences that do not disproportionately affect any one group of individuals. Performed By: #### L [id number] ####[facility] ([facility]ER)[address] [place] [address] Glucose [Mass/Vol] 175 mg/dL High 70-100 [facility] Comment on above: Performed By: #### L [id number] ####[facility] ([facility]AKER)[address] [place] [address] Potassium [Moles/Vol] 4.2 mmol/L Normal 3.5-5.1 [facility] Comment on above: Performed By: #### L [id number] ####[facility] ([facility]ER)[address] [place] [address] Sodium [Moles/Vol] 138 mmol/L Normal 136-145 [facility] Comment on above: Performed By: #### L [id number] ####[facility] ([facility]ER)[address] [place] [address] Urea nitrogen [Mass/Vol] 27 mg/dL High 7-25 [facility] Comment on above: Performed By: #### L [id number] ####[facility] ([facility]ER)[address] [place] [address] UREA NITROGEN/CREATININ E (MASS RATIO) IN SER/PLAS 31.[address] [facility] Comment on above: Performed By: #### L [id number] ####[facility] ([facility]ER)[address] [place] [address] CBCon 01-18-2023 Erythrocyte distribution width (RBC) [Ratio] 14.6 % Normal 11.5-15.0 [facility] Comment on above: Performed By: #### L [id number] ####[facility] ([facility]ER)[address] [place] [address] ERYTHROCYTE MEAN CORPUSCULAR HEMOGLOBIN CONCENTRATION (G/DL) BY AUTOMATED 33.4 g/dL Normal 32.0-35.0 [facility] Comment on above: Performed By: #### L [id number] ####[facility] ([facility])[address] [place] [address] Hematocrit (Bld) [Volume fraction] 33.5 % Low 39.0-55.0 [facility] Comment on above: Performed By: #### L [id number] ####[facility] ([facility])[address] [place] [address] Hemoglobin (Bld) [Mass/Vol] 11.2 g/dL Low 13.0-17.0 [facility] Comment on above: Performed By: #### L [id number] ####[facility] ([facility])[address] [place] [address] MCH (RBC) [Entitic mass] 31.0 pg Normal 27.0-33.0 [facility] Comment on above: Performed By: #### L [id number] ####[facility] ([facility]ER)[address] [place] [address] MCV (RBC) [Entitic vol] 92.8 fL Normal 82.0-98.0 [facility] Comment on above: Performed By: #### L [id number] ####[facility] ([facility]ER)[address] [place] [address] PLATELETS (10*3/UL) IN BLOOD AUTOMATED COUNT 110 10*3/uL Low 150-400 [facility] Comment on above: Performed By: #### L [id number] ####[facility] ([facility]ER)[address] [place] [address] RBC (Bld) [#/Vol] 3.61 10*6/uL Low 4.20-5.70 [facility] Comment on above: Performed By: #### L [id number] ####[facility] ([facility])[address] [place] [address] WBC (Bld) [#/Vol] 15.31 10*3/uL High 4.00-10.60 [facility] on above: Performed By: #### L [id number] ####[facility] ([facility])[address] [place] [address] MAGNESIUMon 01-18-2023 Magnesium [Mass/Vol] 1.6 mg/dL Low 1.9-2.7 [facility] Comment on above: Performed By: #### L [id number] ####[facility] ([facility])[address] [place] [address] POCT GLUCOSE METER UNSOLICIT ED RESULTSon 01-18-2023 Glucose [Mass/Vol] 175 mg/dL High 70-105 [facility] Comment on above: Result Comment: atru ss Performed By: #### L [id number] ####[facility] ([facility])[address] [place] [address] Glucose [Mass/Vol] 157 mg/dL High 70-105 [facility] Comment on above: Result Comment: rsuz timoteo Performed By: #### L [id number] ####[facility] ([facility])[address] [place] [address] Glucose [Mass/Vol] 244 mg/dL High 70-105 [facility] Comment on above: Result Comment: rsuz timoteo Performed By: #### L [id number] ####[facility] ([facility])[address] [place] [address] Glucose [Mass/Vol] 192 mg/dL High 70-105 [facility] Comment on above: Result Comment: rsuz timoteo Performed By: #### L [id number] ####[facility] ([facility])[address] [place] [address] Glucose [Mass/Vol] 186 mg/dL High 70-105 [facility] Comment on above: Result Comment: [email or web address] Performed By: #### L [id number] ####[facility] ([facility]ER)[address] [facility] [place] [address] 30on 01-17-[address] [facility] ARTERIAL BLOOD GAS WITH CO-O XIMETRYon 01-17-2023 Base excess Calc (Bld) [Moles/Vol] 0.8 mmol/L Normal -2.0-3.0 [facility] Comment on above: Performed By: #### L [id number] ####[facility] [id number] [place] [address] [facility] CARBOXYHEMOGLOBIN/ HEMOGLOBIN TOTAL % IN BLOOD 1.9 % Normal 0.0-3.0 [facility] Comment on above: Performed By: #### L [id number] ####[facility] [id number] [place] [address] [place] CO2 (Bld) [Partial pressure] 33 mm[Hg] Low 35-48 [facility] Comment on above: Performed By: #### L [id number] ####[facility] [id number] [place] [address] [facility] DEOXYGENATED HEMOGLOBIN IN BLOOD 3.8 % Normal 1-5 [facility] Comment on above: Performed By: #### L [id number] ####[facility] [id number] [place] [address] [place] HCO3 (Bld) [Moles/Vol] 24.0 mmol/L Normal 21.0-28.0 [facility] Comment on above: Performed By: #### L [id number] ####[facility] [id number] [place] [address] [place] Hemoglobin (Bld) [Mass/Vol] 12.4 g/dL Normal 11.7-17.4 [facility] Comment on above: Performed By: #### L [id number] ####[facility] [id number] [place] [address] [place] LPM [address] [facility] Comment on above: Performed By: #### L [id number] ####[facility] [id number] [facility] [place] [address] [facility] METHEMOGLOBIN/100 IN BLOOD 0.4 % Normal 0.0-1.5 [facility] Comment on above: Performed By: #### L [id number] ####[facility] RES[facility] [id number] [facility] [place] [address] [facility] Oxygen (Bld) [Partial pressure] 73 mm[Hg] Low 83-100 [facility] Comment on above: Performed By: #### L [id number] ####[facility] [id number] [facility] [place] [address] [facility] OXYGEN SATURATION (%) IN ARTERIAL BLOOD 96.1 % Normal 94.0-98.0 [facility] Comment on above: Performed By: #### L [id number] ####[facility] [id number] [place] [address] [facility] OXYGENATED HEMOGLOBIN IN BLOOD 93.9 % Normal 90.0-95.0 [facility] Comment on above: Performed By: #### L [id number] ####[facility] [id number] [facility] [place] [address] [facility] pH (Bld) 7.47 [pH] High 7.35-7.45 [facility] Comment on above: Performed By: #### L [id number] ####[facility] RESPIR[facility] [id number] [place] [address] [facility] SOURCE OF OXYGEN Nasal cannula Normal [facility] Comment on above: Performed By: #### L [id number] ####[facility] RESP[facility] [id number] [place] [address] [facility] BASIC METABOLIC PANELon 052 Anion gap [Moles/Vol] 12 mmol/L Normal 7-20 [facility] Comment on above: Performed By: #### L [id number] ####[facility] ([facility]AKER)[address] [facility] [place] [address] Calcium [Mass/Vol] 7.8 mg/dL Low 8.6-10.3 [facility] Comment on above: Performed By: #### L [id number] ####[facility] (BEAKER)[address] [place] [address] Chloride [Moles/Vol] 107 mmol/L Normal 98-107 [facility] Comment on above: Performed By: #### L [id number] ####[facility] (BEAKER)[address] [place] [address] CO2 [Moles/Vol] 20 mmol/L Low 21-31 [facility] Comment on above: Performed By: #### L [id number] ####[facility] [place] [address] Creatinine [Mass/Vol] 1.00 mg/dL Normal 0.70-1.30 [facility] Comment on above: Performed By: #### L [id number] ####[facility] ([facility])[address] [place] [address] GLOMERULAR FILTRATION RATE ML/MIN/1.73 SQ M.PREDICTED 75.6 mL/min/1.73m*2 Normal >60.0 [facility] Comment on above: Result Comment: [facility]???s estimated glomerular filtration rate (eGFR) will no longer include consideration of race in its calculation. The National Kidney Foundation???s eGFR Task Force developed new recommendations for the estimation of the glomerular filtration rate in the [place] They recommend immediate implementation of the new equation refit without the race variable in all laboratories because the calculation does not include race. In addition to not including race in the calculation and reporting, it included diversity in its development, and has acceptable performance characteristics and potential consequences that do not disproportionately affect any one group of individuals. Performed By: #### L [id number] ####[facility] ([facility])[address] [place] [address] Glucose [Mass/Vol] 134 mg/dL High 70-100 [facility] Comment on above: Performed By: #### L [id number] ####[facility] ([facility])[address] [place] [address] Potassium [Moles/Vol] 3.9 mmol/L Normal 3.5-5.1 [facility] Comment on above: Performed By: #### L [id number] ####[facility] ([facility])[address] [place] [address] Sodium [Moles/Vol] 135 mmol/L Low 136-145 [facility] Comment on above: Performed By: #### L [id number] ####[facility] ([facility])[address] [place] [address] Urea nitrogen [Mass/Vol] 27 mg/dL High 7-25 [facility] Comment on above: Performed By: #### L [id number] ####[facility] ([facility])[address] [place] [address] UREA NITROGEN/CREATININ E (MASS RATIO) IN SER/PLAS 27.[address] [facility] Comment on above: Performed By: #### L [id number] ####[facility] ([facility])[address] [place] [address] CALCIUM, IONIZEDon CALCIUM IONIZED (MMOL/L) IN BLOOD 1.12 mmol/L Low 1.15-1.33 [facility] Comment on above: Performed By: #### C ALCIUM, IONIZED ####[facility] RESPIRATORY [id number] [place] [address] [place] CBCon 01-17-2023 Erythrocyte distribution width (RBC) [Ratio] 14.8 % Normal 11.5-15.0 [facility] Comment on above: Performed By: #### L [id number] ####[facility] ([facility])[address] [place] [address] ERYTHROCYTE MEAN CORPUSCULAR HEMOGLOBIN CONCENTRATION (G/DL) BY AUTOMATED 33.3 g/dL Normal 32.0-35.0 [facility] Comment on above: Performed By: #### L [id number] ####[facility] ([facility])[address] [place] [address] Hematocrit (Bld) [Volume fraction] 31.2 % Low 39.0-55.0 [facility] Comment on above: Performed By: #### L [id number] ####[facility] ([facility])[address] [place], [place] [address] Hemoglobin (Bld) [Mass/Vol] 10.4 g/dL Low 13.0-17.0 [facility] Comment on above: Performed By: #### L [id number] ####[facility] ([facility])[address] [place] [address] IMMATURE PLATELET FRACTION % 2.6 % Normal 0.8-6.3 [facility] Comment on above: Performed By: #### L [id number] ####[facility] ([facility])[address] [place], [place] [address] MCH (RBC) [Entitic mass] 31.0 pg Normal 27.0-33.0 [facility] Comment on above: Performed By: #### L [id number] ####[facility] ([facility])[address] [place], [place] [address] MCV (RBC) [Entitic vol] 93.1 fL Normal 82.0-98.0 [facility] Comment on above: Performed By: #### L [id number] ####[facility] ([facility])[address] [place] [address] PLATELETS (10*3/UL) IN BLOOD AUTOMATED COUNT 92 10*3/uL Low 150-400 [facility] Comment on above: Result Comment: Last plt 105 1d Performed By: #### L [id number] ####[facility] ([facility])[address] [place], [place] [address] RBC (Bld) [#/Vol] 3.35 10*6/uL Low 4.20-5.70 [facility] Comment on above: Performed By: #### L [id number] ####[facility] ([facility])[address] [place] [address] WBC (Bld) [#/Vol] 15.30 10*3/uL High 4.00-10.60 [facility] Comment on above: Performed By: #### L [id number] ####[facility] ([facility])[address] [place] [address] CONSULTon 01-17-[address] [facility] CONSULT Normal [facility] MAGNESIUMon 01-17-2023 Magnesium [Mass/Vol] 1.7 mg/dL Low 1.9-2.7 [facility] Comment on above: Performed By: #### L [id number] ####[facility] ([facility])[address] [place] [address] NURSNOTEon 01-17-2023 NURSNOTE Carol BURGESS SX RESPIRATORY ASSISTANT Rounded on patient updated on last blood sugar. Verbal order given to shut off insulin gtt and recheck in an hour and call her with results. Normal [facility] PHOSPHORUSon 01-17-2023 Magnesium [Mass/Vol] 3.5 mg/dL Normal 2.5-5.0 [facility] Comment on above: Performed By: #### L [id number] ####[facility] ([facility])[address] [place] [address] POCT GLUCOSE METER UNSOLICIT ED RESULTSon 01-17-2023 Glucose [Mass/Vol] 200 mg/dL High 70-105 [facility] Comment on above: Result Comment: [email or web address] Performed By: #### L [id number] ####[facility] ([facility])[address] [place] [address] Glucose [Mass/Vol] 116 mg/dL High 70-105 [facility] Comment on above: Result Comment: ccan est2 Performed By: #### L [id number] ####[facility] ([facility])[address] [place] [address] Glucose [Mass/Vol] 102 mg/dL Normal 70-105 [facility] Comment on above: Result Comment: ccan est2 Performed By: #### L [id number] ####[facility] ([facility])[address] [place] [address] Glucose [Mass/Vol] 101 mg/dL Normal 70-105 [facility] Comment on above: Result Comment: ccan est2 Performed By: #### L [id number] ####[facility] ([facility])[address] [place] [address] Glucose [Mass/Vol] 92 mg/dL Normal 70-105 [facility] Comment on above: Result Comment: ccan est2 Performed By: #### L [id number] ####[facility] ([facility])[address] [place] [address] Glucose [Mass/Vol] 111 mg/dL High 70-105 [facility] Comment on above: Result Comment: ccan est2 Performed By: #### L [id number] ####[facility] ([facility])[address] [place] [address] Glucose [Mass/Vol] 126 mg/dL High 70-105 [facility] Comment on above: Result Comment: cgag net Performed By: #### L [id number] ####[facility] ([facility])[address] [place] [address] Glucose [Mass/Vol] 151 mg/dL High 70-105 [facility] Comment on above: Result Comment: cgag net Performed By: #### L [id number] ####[facility] ([facility])[address] [place] [address] Glucose [Mass/Vol] 162 mg/dL High 70-105 [facility] Comment on above: Result Comment: cgag net Performed By: #### L [id number] ####[facility] ([facility])[address] [place] [address] Glucose [Mass/Vol] 123 mg/dL High 70-105 [facility] Comment on above: Result Comment: ccan est2 Performed By: #### L [id number] ####[facility] ([facility])[address] [place] [address] Glucose [Mass/Vol] 135 mg/dL High 70-105 [facility] Comment on above: Result Comment: ccan est2 Performed By: #### L [id number] ####[facility] ([facility])[address] [place] [address] Glucose [Mass/Vol] 129 mg/dL High 70-105 [facility] Comment on above: Result Comment: ebol tz Performed By: #### L [id number] ####[facility] ([facility])[address] [place] [address] Glucose [Mass/Vol] 147 mg/dL High 70-105 [facility] Comment on above: Result Comment: ebol tz Performed By: #### L [id number] ####[facility] ([facility])[address] [place] [address] Glucose [Mass/Vol] 112 mg/dL High 70-105 [facility] Comment on above: Result Comment: [email or web address] Performed By: #### L [id number] ####[facility] ([facility])[address] [place] [address] Glucose [Mass/Vol] 93 mg/dL Normal 70-105 [facility] Comment on above: Result Comment: ebol tz Performed By: #### L [id number] ####[facility] ([facility])[address] [place] [address] Glucose [Mass/Vol] 120 mg/dL High 70-105 [facility] Comment on above: Result Comment: ebol tz Performed By: #### L [id number] ####[facility] ([facility])[address] [place] [address] Glucose [Mass/Vol] 159 mg/dL High 70-105 [facility] Comment on above: Result Comment: ebol tz Performed By: #### L [id number] ####[facility] ([facility])[address] [place] [address] POTASSIUM, WHOLE BLOODon Potassium [Moles/Vol] 3.6 mmol/L Normal 3.5-5.1 [facility] Comment on above: Performed By: #### P OTASSIUM, WHOLE BLOOD ####[facility] RESPIRATORY [id number] [place] [address] [place] SODIUM, WHOLE BLOODon 2022 SODIUM, WHOLE BLOOD 134 Low 136-145 [facility] Comment on above: Performed By: #### S ODIUM, WHOLE BLOOD ####[facility] RESPIRATORY [id number] [place] [address] [place] 30on 01-16-[address] [facility] APTTon 01-16-2023 ACTIVATED PARTIAL THROMBOPLASTIN TIME IN PPP BY COAGULATION ASSAY 30.3 Seconds Normal 25.0-35.0 [facility] Comment on above: Result Comment: Clin ical significance of the APTT is questionable in the presence of heparin. Performed By: #### L [id number] ####[facility] ([facility])[address] [place] [address] BASIC METABOLIC PANELon 12-26 Anion gap [Moles/Vol] 10 mmol/L Normal 7-20 [facility] Comment on above: Performed By: #### L [id number] ####[facility] ([facility])[address] [place] [address] Calcium [Mass/Vol] 8.6 mg/dL Normal 8.6-10.3 [facility] Comment on above: Performed By: #### L [id number] ####[facility] ([facility])[address] [place] [address] Chloride [Moles/Vol] 108 mmol/L High 98-107 [facility] Comment on above: Performed By: #### L [id number] ####[facility] ([facility])[address] [place] [address] CO2 [Moles/Vol] 24 mmol/L Normal 21-31 [facility] Comment on above: Performed By: #### L [id number] ####[facility] ([facility])[address] [place] [address] Creatinine [Mass/Vol] 0.79 mg/dL Normal 0.70-1.30 [facility] Comment on above: Performed By: #### L [id number] ####[facility] ([facility])[address] [facility] [place] [address] GLOMERULAR FILTRATION RATE ML/MIN/1.73 SQ M.PREDICTED 89.2 mL/min/1.73m*2 Normal >60.0 [facility] Comment on above: Result Comment: [facility]???s estimated glomerular filtration rate (eGFR) will no longer include consideration of race in its calculation. The National Kidney Foundation???s eGFR Task Force developed new recommendations for the estimation of the glomerular filtration rate in the [place] They recommend immediate implementation of the new equation refit without the race variable in all laboratories because the calculation does not include race. In addition to not including race in the calculation and reporting, it included diversity in its development, and has acceptable performance characteristics and potential consequences that do not disproportionately affect any one group of individuals. Performed By: #### L [id number] ####[facility] ([facility])[address] [place] [address] Glucose [Mass/Vol] 136 mg/dL High 70-100 [facility] Comment on above: Performed By: #### L [id number] ####[facility] ([facility])[address] [place] [address] Potassium [Moles/Vol] 4.0 mmol/L Normal 3.5-5.1 [facility] Comment on above: Performed By: #### L [id number] ####[facility] ([facility])[address] [facility] [place] [address] Sodium [Moles/Vol] 138 mmol/L Normal 136-145 [facility] Comment on above: Performed By: #### L [id number] ####[facility] ([facility])[address] [facility] [place] [address] Urea nitrogen [Mass/Vol] 18 mg/dL Normal 7-25 [facility] Comment on above: Performed By: #### L [id number] ####[facility] ([facility])[address] [place] [address] UREA NITROGEN/CREATININ E (MASS RATIO) IN SER/PLAS 22.[address] [facility] Comment on above: Performed By: #### L [id number] ####[facility] ([facility])[address] [place] [address] CBCon 01-16-2023 Erythrocyte distribution width (RBC) [Ratio] 15.0 % Normal 11.5-15.0 [facility] Comment on above: Performed By: #### L [id number] ####[facility] ([facility])[address] [place] [address] ERYTHROCYTE MEAN CORPUSCULAR HEMOGLOBIN CONCENTRATION (G/DL) BY AUTOMATED 34.9 g/dL Normal 32.0-35.0 [facility] Comment on above: Performed By: #### L [id number] ####[facility] ([facility])[address] [place] [address] Hematocrit (Bld) [Volume fraction] 30.1 % Low 39.0-55.0 [facility] Comment on above: Performed By: #### L [id number] ####[facility] ([facility])[address] [place] [address] Hemoglobin (Bld) [Mass/Vol] 10.5 g/dL Low 13.0-17.0 [facility] Comment on above: Performed By: #### L [id number] ####[facility] ([facility])[address] [place] [address] IMMATURE PLATELET FRACTION % 1.9 % Normal 0.8-6.3 [facility] Comment on above: Performed By: #### L [id number] ####[facility] ([facility])[address] [place] [address] MCH (RBC) [Entitic mass] 31.3 pg Normal 27.0-33.0 [facility] Comment on above: Performed By: #### L [id number] ####[facility] ([facility])[address] [place] [address] MCV (RBC) [Entitic vol] 89.6 fL Normal 82.0-98.0 [facility] Comment on above: Performed By: #### L [id number] ####[facility] ([facility])[address] [place] [address] PLATELETS (10*3/UL) IN BLOOD AUTOMATED COUNT 105 10*3/uL Low 150-400 [facility] Comment on above: Performed By: #### L [id number] ####[facility] ([facility])[address] [place] [address] RBC (Bld) [#/Vol] 3.36 10*6/uL Low 4.20-5.70 [facility] Comment on above: Performed By: #### L [id number] ####[facility] ([facility])[address] [place] [address] WBC (Bld) [#/Vol] 11.83 10*3/uL High 4.00-10.60 [facility] Comment on above: Performed By: #### L [id number] ####[facility] ([facility])[address] [place] [address] CO-OXIMETRYon 01-16-2023 CARBOXYHEMOGLOBIN/ HEMOGLOBIN TOTAL % IN BLOOD 2.4 % Normal [facility] Comment on above: Performed By: #### L [id number] ####[facility] RESPIRATORY [id number] [place] [address] [facility] Hemoglobin (Bld) [Mass/Vol] 10.5 g/dL Normal [facility] Comment on above: Performed By: #### L [id number] ####[facility] RESPIRATORY [id number] [place] [address] [place] METHEMOGLOBIN/100 IN BLOOD 0.0 % Normal 0.0-1.5 [facility] Comment on above: Performed By: #### L [id number] ####[facility] RESPIRATORY [id number] [facility] [place] [address] [place] Oxygen saturation in Blood 59.1 % Normal [facility] Comment on above: Performed By: #### L [id number] ####[facility] RESPIRATORY [id number] [place] [address] [place] OXYGENATED HEMOGLOBIN IN BLOOD 57.7 % Normal [facility] Comment on above: Performed By: #### L [id number] ####[facility] RESPIRATORY [id number] [place] [address] [place] LACTIC ACID, PLASMAon 2022 LACTATE (MMOL/L) IN SER/PLAS 1.3 mmol/L Normal 0.5-2.2 [facility] Comment on above: Performed By: #### L [id number] ####[facility] ([facility])[address] [place] [address] MAGNESIUMon 01-16-2023 Magnesium [Mass/Vol] 1.8 mg/dL Low 1.9-2.7 [facility] Comment on above: Performed By: #### L [id number] ####[facility] ([facility])[address] [place] [address] PHOSPHORUSon 01-16-2023 Magnesium [Mass/Vol] 3.6 mg/dL Normal 2.5-5.0 [facility] Comment on above: Performed By: #### L [id number] ####[facility] ([facility])[address] [place] [address] POCT GLUCOSE METER UNSOLICIT ED RESULTSon 01-16-2023 Glucose [Mass/Vol] 204 mg/dL High 70-105 [facility] Comment on above: Result Comment: ebol tz Performed By: #### L [id number] ####[facility] ([facility])[address] [place] [address] Glucose [Mass/Vol] 270 mg/dL High 70-105 [facility] Comment on above: Result Comment: ebol tz Performed By: #### L [id number] ####[facility] ([facility])[address] [place] [address] Glucose [Mass/Vol] 258 mg/dL High 70-105 [facility] Comment on above: Result Comment: cgag net Performed By: #### L [id number] ####[facility] ([facility])[address] [place] [address] Glucose [Mass/Vol] 250 mg/dL High 70-105 [facility] Comment on above: Result Comment: cgag net Performed By: #### L [id number] ####[facility] ([facility])[address] [place] [address] Glucose [Mass/Vol] 291 mg/dL High 70-105 [facility] [place] Comment on above: Result Comment: cgag net Performed By: #### L [id number] ####[facility] ([facility])[address] [place] [address] Glucose [Mass/Vol] 335 mg/dL High 70-105 [facility] Comment on above: Result Comment: cgag net Performed By: #### L [id number] ####[facility] ([facility])[address] [place] [address] Glucose [Mass/Vol] 387 mg/dL High 70-105 [facility] Comment on above: Result Comment: cgag net Performed By: #### L [id number] ####[facility] ([facility])[address] [place] [address] Glucose [Mass/Vol] 242 mg/dL High 70-105 [facility] Comment on above: Result Comment: cgag net Performed By: #### L [id number] ####[facility] ([facility])[address] [place] [address] Glucose [Mass/Vol] 102 mg/dL Normal 70-105 [facility] Comment on above: Result Comment: cgag net Performed By: #### L [id number] ####[facility] ([facility])[address] [place] [address] Glucose [Mass/Vol] 100 mg/dL Normal 70-105 [facility] Comment on above: Result Comment: cgag net Performed By: #### L [id number] ####[facility] ([facility])[address] [place] [address] Glucose [Mass/Vol] 114 mg/dL High 70-105 [facility] Comment on above: Result Comment: cgag net Performed By: #### L [id number] ####[facility] ([facility])[address] [place] [address] Glucose [Mass/Vol] 108 mg/dL High 70-105 [facility] [place] Comment on above: Result Comment: ebol tz Performed By: #### L [id number] ####[facility] ([facility])[address] [place] [address] Glucose [Mass/Vol] 125 mg/dL High 70-105 [facility] [place] Comment on above: Result Comment: ebol tz Performed By: #### L [id number] ####[facility] ([facility])[address] [place] [address] Glucose [Mass/Vol] 129 mg/dL High 70-105 [facility] [place] Comment on above: Result Comment: ebol tz Performed By: #### L [id number] ####[facility] ([facility])[address] [place] [address] Glucose [Mass/Vol] 145 mg/dL High 70-105 [facility] Comment on above: Result Comment: ebol tz Performed By: #### L [id number] ####[facility] ([facility])[address] [place] [address] Glucose [Mass/Vol] 136 mg/dL High 70-105 [facility] Comment on above: Result Comment: ebol tz Performed By: #### L [id number] ####[facility] ([facility])[address] [place] [address] Glucose [Mass/Vol] 137 mg/dL High 70-105 [facility] Comment on above: Result Comment: ebol tz Performed By: #### L [id number] ####[facility] ([facility])[address] [place] [address] Glucose [Mass/Vol] 141 mg/dL High 70-105 [facility] Comment on above: Result Comment: ebol tz Performed By: #### L [id number] ####[facility] ([facility])[address] [place] [address] Glucose [Mass/Vol] 122 mg/dL High 70-105 [facility] Comment on above: Result Comment: ebol tz Performed By: #### L [id number] ####[facility] ([facility])[address] [place] [address] Glucose [Mass/Vol] 97 mg/dL Normal 70-105 [facility] Comment on above: Result Comment: ebol tz Performed By: #### L [id number] ####[facility] ([facility])[address] [place] [address] Glucose [Mass/Vol] 102 mg/dL Normal 70-105 [facility] Comment on above: Result Comment: ebol tz Performed By: #### L [id number] ####[facility] ([facility])[address] [place] [address] PROTIME-INRon 01-16-2023 INR IN PPP BY COAGULATION ASSAY 1.23 High 0.90-1.10 [facility] Comment on above: Result Comment: ACCC P RECOMMENDED INR FOR WARFARIN THERAPY CONDITION INRPROPHYLAXIS OF VENOUS THROMBOSIS 2-3(HIGH-RISK SURGERY)TREATMENT OF VENOUS THROMBOSIS 2-3TREATMENT OF PULMONARY EMBOLISM 2-3PREVENTION OF SYSTEMIC EMBOLISM: 2-3 ACUTE MYOCARDIAL INFARCTION TISSUE HEART VALVES VALVULAR HEART DISEASE ATRIAL FIBRILLATION RECURRENT SYSTEMIC EMBOLISMMECHANICAL HEART VALVE 2.5-3.5 FROM: ORAL ANTICOAGULANTS. MECHANISM OF ACTION, CLINICAL EFFECTIVENESS, AND OPTIMAL THERAPEUTIC RANGE. CHEST 1995;108:231S-246S. Performed By: #### L [id number] ####[facility] ([facility])[address] [place] [address] PROTHROMBIN TIME (PT) IN PPP BY COAGULATION ASSAY 15.4 Seconds High 12.3-14.8 [facility] Comment on above: Performed By: #### L [id number] ####[facility] ([facility])[address] [place] [address] [id number] 01-15-[id number] [facility] ANESon 01-15-[address] [facility] APTTon 01-15-2023 ACTIVATED PARTIAL THROMBOPLASTIN TIME IN PPP BY COAGULATION ASSAY 32.3 Seconds Normal 25.0-35.0 [facility] Comment on above: Result Comment: Clin ical significance of the APTT is questionable in the presence of heparin. Performed By: #### L [id number] ####[facility] ([facility])[address] [place] [address] ACTIVATED PARTIAL THROMBOPLASTIN TIME IN PPP BY COAGULATION ASSAY 32.0 Seconds Normal 25.0-35.0 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 Performed By: #### L [id number] ####[facility] [facility] ([facility])[address] [place] [address] ACTIVATED PARTIAL THROMBOPLASTIN TIME IN PPP BY COAGULATION ASSAY 75.8 Seconds High 25.0-35.0 [facility] Comment on above: Result Comment: Clin ical significance of the APTT is questionable in the presence of heparin. Performed By: #### L [id number] ####[facility] ([facility])[address] [place] [address] BASIC METABOLIC PANELon 12-26 Anion gap [Moles/Vol] 11 mmol/L Normal 7-20 [facility] Comment on above: Performed By: #### L [id number] ####[facility] (BEAKER)[address] [place] [address] Calcium [Mass/Vol] 9.1 mg/dL Normal 8.6-10.3 [facility] Comment on above: Performed By: #### L [id number] ####[facility] (BEAKER)[address] [place] [address] Chloride [Moles/Vol] 108 mmol/L High 98-107 [facility] Comment on above: Performed By: #### L [id number] ####[facility] ([facility] [place] [address] CO2 [Moles/Vol] 25 mmol/L Normal 21-31 [facility] Comment on above: Performed By: #### L [id number] ####[facility] ([facility])[address] [place] [address] Creatinine [Mass/Vol] 0.92 mg/dL Normal 0.70-1.30 [facility] Comment on above: Performed By: #### L [id number] ####[facility] ([facility])[address] [place] [address] GLOMERULAR FILTRATION RATE ML/MIN/1.73 SQ M.PREDICTED 83.6 mL/min/1.73m*2 Normal >60.0 [facility] Comment on above: Result Comment: The [facility]???s estimated glomerular filtration rate (eGFR) will no longer include consideration of race in its calculation. The National Kidney Foundation???s eGFR Task Force developed new recommendations for the estimation of the glomerular filtration rate in the [place] They recommend immediate implementation of the new equation refit without the race variable in all laboratories because the calculation does not include race. In addition to not including race in the calculation and reporting, it included diversity in its development, and has acceptable performance characteristics and potential consequences that do not disproportionately affect any one group of individuals. Performed By: #### L [id number] ####[facility] ([facility]AKER)[address] [place] [address] Glucose [Mass/Vol] 151 mg/dL High 70-100 [facility] Comment on above: Performed By: #### L [id number] ####[facility] ([facility])[address] [place] [address] Potassium [Moles/Vol] 4.1 mmol/L Normal 3.5-5.1 [facility] Comment on above: Performed By: #### L [id number] ####[facility] ([facility])[address] [place] [address] Sodium [Moles/Vol] 140 mmol/L Normal 136-145 [facility] Comment on above: Performed By: #### L [id number] ####[facility] ([facility])[address] [place] [address] Urea nitrogen [Mass/Vol] 17 mg/dL Normal 7-25 [facility] Comment on above: Performed By: #### L [id number] ####[facility] ([facility])[address] [place] [address] UREA NITROGEN/CREATININ E (MASS RATIO) IN SER/PLAS 18.[address] [facility] Comment on above: Performed By: #### L [id number] ####[facility] ([facility])[address] [place] [address] Anion gap [Moles/Vol] 9 mmol/L Normal 7-20 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???s estimated glomerular filtration rate (eGFR) will no longer include consideration of race in its calculation. The National Kidney Foundation???s eGFR Task Force developed new recommendations for the estimation of the glomerular filtration rate in the [place] They recommend immediate implementation of the new equation refit without the race variable in all laboratories because the calculation does not include race. In addition to not including race in the calculation and reporting, it included diversity in its development, and has acceptable performance characteristics and potential consequences that do not disproportionately affect any one group of individuals. 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] Performed By: #### L [id number] ####[facility] ([facility])[address] [place] [address] CBCon 01-15-2023 Erythrocyte distribution width (RBC) [Ratio] 14.9 % Normal 11.5-15.0 [facility] Comment on above: Performed By: #### L [id number] ####[facility] (BEAKER)[address] [place] [address] ERYTHROCYTE MEAN CORPUSCULAR HEMOGLOBIN CONCENTRATION (G/DL) BY AUTOMATED 34.6 g/dL Normal 32.0-35.0 [facility] Comment on above: Performed By: #### L [id number] ####[facility] (BEAKER)[address] [place] [address] Hematocrit (Bld) [Volume fraction] 31.5 % Low 39.0-55.0 [facility] Comment on above: Performed By: #### L [id number] ####[facility] (BEAKER)[address] [place] [address] Hemoglobin (Bld) [Mass/Vol] 10.9 g/dL Low 13.0-17.0 [facility] Comment on above: Performed By: #### L [id number] ####[facility] (BEAKER)[address] [place] [address] MCH (RBC) [Entitic mass] 31.1 pg Normal 27.0-33.0 [facility] Comment on above: Performed By: #### L [id number] ####[facility] (BEAKER)[address] [place] [address] MCV (RBC) [Entitic vol] 89.7 fL Normal 82.0-98.0 [facility] Comment on above: Performed By: #### L [id number] ####[facility] (BEAKER)[address] [place] [address] PLATELETS (10*3/UL) IN BLOOD AUTOMATED COUNT 109 10*3/uL Low 150-400 [facility] Comment on above: Performed By: #### L [id number] ####[facility] (BEAKER)[address] [place] [address] RBC (Bld) [#/Vol] 3.51 10*6/uL Low 4.20-5.70 [facility] Comment on above: Performed By: #### L [id number] ####[facility] ([employer])[address] [facility] [place] [address] WBC (Bld) [#/Vol] 11.12 10*3/uL High 4.00-10.60 [facility] Comment on above: Performed By: #### L [id number] ####[facility] ([employer])[address] [facility] [place] [address] Erythrocyte distribution width (RBC) [Ratio] 14.4 % Normal 11.5-15.0 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 Comment on above: Performed By: #### L [id number] ####[facility] ([facility])[address] [place] [address] ERYTHROCYTE MEAN CORPUSCULAR HEMOGLOBIN CONCENTRATION (G/DL) BY AUTOMATED 34.1 g/dL Normal 32.0-35.0 [facility] Comment on above: Performed By: #### L [id number] ####[facility] (BEAKER)[address] [place] [address] Hematocrit (Bld) [Volume fraction] 41.6 % Normal 39.0-55.0 [facility] Comment on above: Performed By: #### L [id number] ####[facility] (BEAKER)[address] [place] [address] Hemoglobin (Bld) [Mass/Vol] 14.2 g/dL Normal 13.0-17.0 [facility] Comment on above: Performed By: #### L [id number] ####[facility] (BEAKER)[address] [place] [address] MCH (RBC) [Entitic mass] 31.5 pg Normal 27.0-33.0 [facility] Comment on above: Performed By: #### L [id number] ####[facility] (BEAKER)[address] [place] [address] MCV (RBC) [Entitic vol] 92.2 fL Normal 82.0-98.0 [facility] Comment on above: Performed By: #### L [id number] ####[facility] ([facility])[address] [place] [address] PLATELETS (10*3/UL) IN BLOOD AUTOMATED COUNT 172 10*3/uL Normal 150-400 [facility] Comment on above: Performed By: #### L [id number] ####[facility] ([facility])[address] [place] [address] RBC (Bld) [#/Vol] 4.51 10*6/uL Normal 4.20-5.70 [facility] Comment on above: Performed By: #### L [id number] ####[facility] ([facility])[address] [place] [address] WBC (Bld) [#/Vol] 7.37 10*3/uL Normal 4.00-10.60 [facility] Comment on above: Performed By: #### L [id number] ####[facility] ([facility])[address] [place] [address] CO-OXIMETRYon 01-15-2023 CARBOXYHEMOGLOBIN/ HEMOGLOBIN TOTAL % IN BLOOD 1.8 % Normal [facility] Comment on above: Performed By: #### L [id number] ####[facility] RESPIRATORY [id number] [place] [address] [facility] Hemoglobin (Bld) [Mass/Vol] 10.8 g/dL Normal [facility] Comment on above: Performed By: #### L [id number] ####[facility] RESPIRATORY [id number] [place] [address] [place] METHEMOGLOBIN/100 IN BLOOD 0.9 % Normal 0.0-1.5 [facility] Comment on above: Performed By: #### L [id number] ####[facility] RESPIRATORY [id number] [place] [address] [place] Oxygen saturation in Blood 69.1 % Normal [facility] Comment on above: Performed By: #### L [id number] ####[facility] RESPIRATORY [id number] [place] [address] [facility] OXYGENATED HEMOGLOBIN IN BLOOD 67.2 % Normal [facility] Comment on above: Performed By: #### L [id number] ####[facility] RESPIRATORY [id number] [place] [address] [facility] COMPREHENSIVE METABOLIC PANE Kevin 01-15-2023 Albumin [Mass/Vol] 3.9 g/dL Normal 3.5-5.7 [facility] Comment on above: Performed By: #### L [id number] ####[facility] (BEAKER)[address] [place] [address] ALP [Catalytic activity/Vol] 74 U/L Normal 34-104 [facility] Comment on above: Performed By: #### L [id number] ####[facility] (BEAKER)[address] [place] [address] ALT [Catalytic activity/Vol] 30 U/L Normal 7-52 [facility] Comment on above: Performed By: #### L [id number] ####[facility] (BEAKER)[address] [place] [address] Anion gap [Moles/Vol] 12 mmol/L Normal 7-20 [facility] Comment on above: Performed By: #### L [id number] ####[facility] (BEAKER)[address] [place] [address] AST [Catalytic activity/Vol] 19 U/L Normal 13-39 [facility] Comment on above: Performed By: #### L [id number] ####[facility] (BEAKER)[address] [place] [address] Bilirubin [Mass/Vol] 0.6 mg/dL Normal 0.3-1.0 [facility] Comment on above: Performed By: #### L [id number] ####[facility] (BEAKER)[address] [place] [address] Calcium [Mass/Vol] 9.3 mg/dL Normal 8.6-10.3 [facility] Comment on above: Performed By: #### L [id number] ####[facility] ([facility])[address] [place] [address] Chloride [Moles/Vol] 103 mmol/L Normal 98-107 [facility] Comment on above: Performed By: #### L [id number] ####[facility] ([facility])[address] [place] [address] CO2 [Moles/Vol] 25 mmol/L Normal 21-31 [facility] Comment on above: Performed By: #### L [id number] ####[facility] ([facility])[address] [place] [address] Creatinine [Mass/Vol] 0.92 mg/dL Normal 0.70-1.30 [facility] Comment on above: Performed By: #### L [id number] ####[facility] ([facility])[address] [place] [address] GLOMERULAR FILTRATION RATE ML/MIN/1.73 SQ M.PREDICTED 83.6 mL/min/1.73m*2 Normal >60.0 [facility] Comment on above: Result Comment: The [facility]???s estimated glomerular filtration rate (eGFR) will no longer include consideration of race in its calculation. The National Kidney Foundation???s eGFR Task Force developed new recommendations for the estimation of the glomerular filtration rate in the [place] They recommend immediate implementation of the new equation refit without the race variable in all laboratories because the calculation does not include race. In addition to not including race in the calculation and reporting, it included diversity in its development, and has acceptable performance characteristics and potential consequences that do not disproportionately affect any one group of individuals. Performed By: #### L [id number] ####[facility] ([facility])[address] [facility] [place] [address] Glucose [Mass/Vol] 191 mg/dL High 70-100 [facility] Comment on above: Performed By: #### L [id number] ####[facility] ([facility])[address] [place] [address] Potassium [Moles/Vol] 4.1 mmol/L Normal 3.5-5.1 [facility] Comment on above: Performed By: #### L [id number] ####[facility] ([facility])[address] [place] [address] Protein [Mass/Vol] 6.0 g/dL Normal 6.0-8.3 [facility] Comment on above: Performed By: #### L [id number] ####[facility] ([facility])[address] [place] [address] Sodium [Moles/Vol] 136 mmol/L Normal 136-145 [facility] Comment on above: Performed By: #### L [id number] ####[facility] ([facility])[address] [place] [address] Urea nitrogen [Mass/Vol] 17 mg/dL Normal 7-25 [facility] Comment on above: Performed By: #### L [id number] ####[facility] ([facility])[address] [place] [address] UREA NITROGEN/CREATININ E (MASS RATIO) IN SER/PLAS 18.[address] [facility] Comment on above: Performed By: #### L [id number] ####[facility] ([facility])[address] [place] [address] FIBRINOGENon 01-15-2023 Magnesium [Mass/Vol] 205 mg/dL Normal 150-425 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 Comment on above: Result Comment: Davidson roxaban and Apixaban will interfere with the anti Xa assay used to monitor UFH and LMWH. Performed By: #### L [id number] ####[facility] ([facility])[address] [place] [address] HPon 01-15-2023 HP H&P reviewed. The patient was examined and there are no changes to the H&P. Heparin gtt turned off at 0500 01/15/23. Plan for CABG today with Dr. Dupree. Normal [facility] LACTIC ACID WITH 4 HOUR REFL EXon 01-15-2023 LACTATE (MMOL/L) IN SER/PLAS 2.5 mmol/L High 0.5-2.2 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] Performed By: #### L [id number] ####[facility] ([facility])[address] [facility] [place] [address] LACTIC ACID, PLASMAon 2022 LACTATE (MMOL/L) IN SER/PLAS 1.2 mmol/L Normal 0.5-2.2 [facility] Comment on above: Performed By: #### L [id number] ####[facility] ([facility])[address] [place] [address] MAGNESIUMon 01-15-2023 Magnesium [Mass/Vol] 1.8 mg/dL Low 1.9-2.7 [facility] Comment on above: Performed By: #### L [id number] ####[facility] ([facility])[address] [facility] [place] [address] Magnesium [Mass/Vol] 2.3 mg/dL Normal 1.9-2.7 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] Performed By: #### L [id number] ####[facility] ([facility])[address] [facility] [place] [address] Magnesium [Mass/Vol] 1.5 mg/dL Low 1.9-2.7 [facility] Comment on above: Performed By: #### L [id number] ####[facility])[address] [place] [address] OPNOTEon 01-15-[address] [facility] PHOSPHORUSon 01-15-2023 Magnesium [Mass/Vol] 2.9 mg/dL Normal 2.5-5.0 [facility] Comment on above: Performed By: #### L [id number] ####[facility] ([facility])[address] [place] [address] Magnesium [Mass/Vol] 3.8 mg/dL Normal 2.5-5.0 [facility] Comment on above: Performed By: #### L [id number] ####[facility] ([facility])[address] [place] [address] POCT ACTIVATED CLOTTING TIME UNSOLICITED RESULTSon 01-15-2023 POC ACTIVATED CLOTTING TIME 132 sec Normal 82-152 [facility] Comment on above: Performed By: #### L [id number] ####[facility] ([facility])[address] [place] [address] POC ACTIVATED CLOTTING TIME 126 sec Normal 82-152 [facility] Comment on above: Performed By: #### L [id number] ####[facility] ([facility])[address] [place] [address] POC ACTIVATED CLOTTING TIME 120 sec Normal 82-152 [facility] Comment on above: Performed By: #### L [id number] ####[facility] ([facility])[address] [place] [address] POC ACTIVATED CLOTTING TIME 391 sec High 82-152 [facility] Comment on above: Performed By: #### L [id number] ####[facility] ([facility])[address] [place] [address] POC ACTIVATED CLOTTING TIME 483 sec High 82-152 [facility] Comment on above: Performed By: #### L [id number] ####[facility] ([facility])[address] [place] [address] POC ACTIVATED CLOTTING TIME 448 sec High 82-152 [facility] Comment on above: Performed By: #### L [id number] ####[facility] ([facility])[address] [place] [address] POC ACTIVATED CLOTTING TIME 594 sec High 82-152 [facility] Comment on above: Performed By: #### L [id number] ####[facility] ([facility])[address] [place] [address] POC ACTIVATED CLOTTING TIME 126 sec Normal 82-152 [facility] Comment on above: Performed By: #### L [id number] ####[facility] ([facility])[address] [place] [address] POCT GLUCOSE METER UNSOLICIT ED RESULTSon 01-15-2023 Glucose [Mass/Vol] 96 mg/dL Normal 70-105 [facility] Comment on above: Result Comment: ebol tz Performed By: #### L [id number] ####[facility] ([facility])[address] [place] [address] Glucose [Mass/Vol] 104 mg/dL Normal 70-105 [facility] Comment on above: Result Comment: ebol tz Performed By: #### L [id number] ####[facility] ([facility])[address] [place] [address] Glucose [Mass/Vol] 130 mg/dL High 70-105 [facility] Comment on above: Result Comment: cgag net Performed By: #### L [id number] ####[facility] ([facility])[address] [place] [address] Glucose [Mass/Vol] 140 mg/dL High 70-105 [facility] Comment on above: Result Comment: cgag net Performed By: #### L [id number] ####[facility] ([facility])[address] [place] [address] Glucose [Mass/Vol] 157 mg/dL High 70-105 [facility] Comment on above: Result Comment: cgag net Performed By: #### L [id number] ####[facility] ([facility])[address] [place] [address] Glucose [Mass/Vol] 163 mg/dL High 70-105 [facility] Comment on above: Result Comment: ccan est2 Performed By: #### L [id number] ####[facility] ([facility])[address] [place] [address] Glucose [Mass/Vol] 169 mg/dL High 70-105 [facility] Comment on above: Result Comment: ccan est2 Performed By: #### L [id number] ####[facility] ([facility])[address] [place] [address] Glucose [Mass/Vol] 152 mg/dL High 70-105 [facility] Comment on above: Result Comment: cgag net Performed By: #### L [id number] ####[facility] ([facility])[address] [place] [address] Glucose [Mass/Vol] 128 mg/dL High 70-105 [facility] Comment on above: Result Comment: cgag net Performed By: #### L [id number] ####[facility] ([facility])[address] [place] [address] Glucose [Mass/Vol] 135 mg/dL High 70-105 [facility] Comment on above: Result Comment: ccan est2 Performed By: #### L [id number] ####[facility] ([facility])[address] [place] [address] Glucose [Mass/Vol] 224 mg/dL High 70-105 [facility] Comment on above: Result Comment: donta pel2 Performed By: #### L [id number] ####[facility] ([facility])[address] [place] [address] Glucose [Mass/Vol] 236 mg/dL High 70-105 [facility] Comment on above: Result Comment: kret tin Performed By: #### L [id number] ####[facility] ([facility])[address] [place] [address] POCT PERFUSION PANEL UNSOLIC ITED RESULTSon 01-15-2023 CO2 [Moles/Vol] 27.0 mmol/L Normal 21.0-29.0 [facility] Comment on above: Performed By: #### L [id number] ####[facility] ([facility])[address] [place] [address] Glucose [Mass/Vol] 140 mg/dL High 70-105 [facility] Comment on above: Performed By: #### L [id number] ####[facility] ([facility])[address] [place] [address] HCO3 (Bld) [Moles/Vol] 25.2 mmol/L Normal 23.0-28.0 [facility] Comment on above: Performed By: #### L [id number] ####[facility] ([facility])[address] [place] [address] Hematocrit (Bld) [Volume fraction] 27 % Low 38-51 [facility] Comment on above: Performed By: #### L [id number] ####[facility] ([facility])[address] [place] [address] Hemoglobin (Bld) [Mass/Vol] 9.2 g/dL Low 12.0-17.0 [facility] Comment on above: Performed By: #### L [id number] ####[facility] ([facility])[address] [place] [address] POCT BASE EXCESS 0.0 mmol/L Normal -2.0-3.0 [facility] Comment on above: Performed By: #### L [id number] ####[facility] ([facility])[address] [place] [address] POCT IONIZED CALCIUM 1.40 mmol/L High 1.12-1.32 [facility] Comment on above: Performed By: #### L [id number] ####[facility] ([facility])[address] [place] [address] POCT PCO2 45.1 mmHg Normal 41.0-51.0 [facility] Comment on above: Performed By: #### L [id number] ####[facility] ([facility])[address] [place] [address] POCT PH 7.36 Normal 7.31-7.41 [facility] Comment on above: Performed By: #### L [id number] ####[facility] ([facility])[address] [place] [address] POCT PO2 37 mmHg Low 80-105 [facility] Comment on above: Performed By: #### L [id number] ####[facility] ([facility])[address] [place] [address] POCT SO2 68 % Low 95-98 [facility] Comment on above: Performed By: #### L [id number] ####[facility] ([facility])[address] [place] [address] Potassium [Moles/Vol] 4.0 mmol/L Normal 3.5-4.9 [facility] Comment on above: Performed By: #### L [id number] ####[facility] ([facility])[address] [place] [address] Sodium [Moles/Vol] 142 mmol/L Normal 138.0-146.0 [facility] Comment on above: Performed By: #### L [id number] ####[facility] ([facility])[address] [place] [address] CO2 [Moles/Vol] 27.0 mmol/L Normal 21.0-29.0 [facility] Comment on above: Performed By: #### L [id number] ####[facility] ([facility])[address] [place] [address] Glucose [Mass/Vol] 159 mg/dL High 70-105 [facility] Comment on above: Performed By: #### L [id number] ####[facility] ([facility])[address] [place] [address] HCO3 (Bld) [Moles/Vol] 26.1 mmol/L Normal 23.0-28.0 [facility] Comment on above: Performed By: #### L [id number] ####[facility] ([facility])[address] [place] [address] Hematocrit (Bld) [Volume fraction] 25 % Low 38-51 [facility] Comment on above: Performed By: #### L [id number] ####[facility] ([facility])[address] [place] [place] [address] Hemoglobin (Bld) [Mass/Vol] 8.5 g/dL Low 12.0-17.0 [facility] Comment on above: Performed By: #### L [id number] ####[facility] ([facility])[address] [place] [place] [address] POCT BASE EXCESS 1.0 mmol/L Normal -2.0-3.0 [facility] Comment on above: Performed By: #### L [id number] ####[facility] ([facility])[address] [place] [address] POCT IONIZED CALCIUM 1.44 mmol/L High 1.12-1.32 [facility] Comment on above: Performed By: #### L [id number] ####[facility] ([facility])[address] [place] [address] POCT PCO2 42.3 mmHg Normal 41.0-51.0 [facility] Comment on above: Performed By: #### L [id number] ####[facility] ([facility])[address] [place] [place] [address] POCT PH 7.40 Normal 7.31-7.41 [facility] Comment on above: Performed By: #### L [id number] ####[facility] ([facility])[address] [place] [address] POCT PO2 424 mmHg High 80-105 [facility] Comment on above: Performed By: #### L [id number] ####[facility] ([facility])[address] [place] [address] POCT SO2 100 % High 95-98 [facility] Comment on above: Performed By: #### L [id number] ####[facility] ([facility])[address] [place] [address] Potassium [Moles/Vol] 4.2 mmol/L Normal 3.5-4.9 [facility] Comment on above: Performed By: #### L [id number] ####[facility] ([facility])[address] [place] [address] Sodium [Moles/Vol] 140 mmol/L Normal 138.0-146.0 [facility] Comment on above: Performed By: #### L [id number] ####[facility] ([facility])[address] [place] [address] CO2 [Moles/Vol] 27.0 mmol/L Normal 21.0-29.0 [facility] Comment on above: Performed By: #### L [id number] ####[facility] ([facility])[address] [place] [address] Glucose [Mass/Vol] 151 mg/dL High 70-105 [facility] Comment on above: Performed By: #### L [id number] ####[facility] ([facility])[address] [place] [address] HCO3 (Bld) [Moles/Vol] 25.4 mmol/L Normal 23.0-28.0 [facility] Comment on above: Performed By: #### L [id number] ####[facility] ([facility])[address] [place] [address] Hematocrit (Bld) [Volume fraction] 20 % Low 38-51 [facility] Comment on above: Performed By: #### L [id number] ####[facility] ([facility])[address] [place] [address] Hemoglobin (Bld) [Mass/Vol] 6.8 g/dL Low 12.0-17.0 [facility] Comment on above: Performed By: #### L [id number] ####[facility] ([facility])[address] [place] [address] POCT BASE EXCESS 1.0 mmol/L Normal -2.0-3.0 [facility] Comment on above: Performed By: #### L [id number] ####[facility] ([facility])[address] [place] [address] POCT IONIZED CALCIUM 1.16 mmol/L Normal 1.12-1.32 [facility] Comment on above: Performed By: #### L [id number] ####[facility] ([facility])[address] [place] [address] POCT PCO2 39.4 mmHg Low 41.0-51.0 [facility] Comment on above: Performed By: #### L [id number] ####[facility] ([facility])[address] [place] [address] POCT PH 7.42 High 7.31-7.41 [facility] Comment on above: Performed By: #### L [id number] ####[facility] ([facility])[address] [place] [address] POCT PO2 334 mmHg High 80-105 [facility] Comment on above: Performed By: #### L [id number] ####[facility] ([facility])[address] [place] [address] POCT SO2 100 % High 95-98 [facility] Comment on above: Performed By: #### L [id number] ####[facility] ([facility])[address] [place] [address] Potassium [Moles/Vol] 3.9 mmol/L Normal 3.5-4.9 [facility] Comment on above: Performed By: #### L [id number] ####[facility] ([facility])[address] [place] [address] Sodium [Moles/Vol] 141 mmol/L Normal 138.0-146.0 [facility] Comment on above: Performed By: #### L [id number] ####[facility] ([facility])[address] [place] [address] CO2 [Moles/Vol] 31.0 mmol/L High 21.0-29.0 [facility] Comment on above: Performed By: #### L [id number] ####[facility] ([facility])[address] [place] [address] Glucose [Mass/Vol] 174 mg/dL High 70-105 [facility] Comment on above: Performed By: #### L [id number] ####[facility] ([facility])[address] [place] [address] HCO3 (Bld) [Moles/Vol] 29.7 mmol/L High 23.0-28.0 [facility] Comment on above: Performed By: #### L [id number] ####[facility] ([facility])[address] [place] [address] Hematocrit (Bld) [Volume fraction] 25 % Low 38-51 [facility] Comment on above: Performed By: #### L [id number] ####[facility] ([facility])[address] [place] [address] Hemoglobin (Bld) [Mass/Vol] 8.5 g/dL Low 12.0-17.0 [facility] Comment on above: Performed By: #### L [id number] ####[facility] ([facility])[address] [place] [address] POCT BASE EXCESS 4.0 mmol/L High -2.0-3.0 [facility] Comment on above: Performed By: #### L [id number] ####[facility] ([facility])[address] [place] [address] POCT IONIZED CALCIUM 1.05 mmol/L Low 1.12-1.32 [facility] Comment on above: Performed By: #### L [id number] ####[facility] ([facility])[address] [place] [address] POCT PCO2 48.0 mmHg Normal 41.0-51.0 [facility] Comment on above: Performed By: #### L [id number] ####[facility] ([facility])[address] [place] [address] POCT PH 7.40 Normal 7.31-7.41 [facility] Comment on above: Performed By: #### L [id number] ####[facility] ([facility])[address] [place] [address] POCT PO2 315 mmHg High 80-105 [facility] Comment on above: Performed By: #### L [id number] ####[facility] ([facility])[address] [place] [address] POCT SO2 100 % High 95-98 [facility] Comment on above: Performed By: #### L [id number] ####[facility] ([facility])[address] [place] [address] Potassium [Moles/Vol] 5.3 mmol/L High 3.5-4.9 [facility] Comment on above: Performed By: #### L [id number] ####[facility] ([facility])[address] [place] [address] Sodium [Moles/Vol] 138 mmol/L Normal 138.0-146.0 [facility] Comment on above: Performed By: #### L [id number] ####[facility] ([facility])[address] [place] [address] CO2 [Moles/Vol] 31.0 mmol/L High 21.0-29.0 [facility] Comment on above: Performed By: #### L [id number] ####[facility] ([facility])[address] [place] [address] Glucose [Mass/Vol] 181 mg/dL High 70-105 [facility] Comment on above: Performed By: #### L [id number] ####[facility] ([facility])[address] [place] [address] HCO3 (Bld) [Moles/Vol] 29.4 mmol/L High 23.0-28.0 [facility] Comment on above: Performed By: #### L [id number] ####[facility] ([facility])[address] [place] [address] Hematocrit (Bld) [Volume fraction] 25 % Low 38-51 [facility] Comment on above: Performed By: #### L [id number] ####[facility] ([facility])[address] [place] [place] [address] Hemoglobin (Bld) [Mass/Vol] 8.5 g/dL Low 12.0-17.0 [facility] Comment on above: Performed By: #### L [id number] ####[facility] ([facility])[address] [place] [address] POCT BASE EXCESS 4.0 mmol/L High -2.0-3.0 [facility] Comment on above: Performed By: #### L [id number] ####[facility] ([facility])[place] [address] POCT IONIZED CALCIUM 1.08 mmol/L Low 1.12-1.32 [facility] Comment on above: Performed By: #### L [id number] ####[facility] ([facility])[address] [place] [address] POCT PCO2 48.8 mmHg Normal 41.0-51.0 [facility] Comment on above: Performed By: #### L [id number] ####[facility] ([facility])[address] [place] [address] POCT PH 7.39 Normal 7.31-7.41 [facility] Comment on above: Performed By: #### L [id number] ####[facility] ([facility])[address] [place] [place] [address] POCT PO2 377 mmHg High 80-105 [facility] Comment on above: Performed By: #### L [id number] ####[facility] ([facility])[address] [place] [address] POCT SO2 100 % High 95-98 [facility] Comment on above: Performed By: #### L [id number] ####[facility] ([facility])[address] [place] [address] Potassium [Moles/Vol] 5.1 mmol/L High 3.5-4.9 [facility] Comment on above: Performed By: #### L [id number] ####[facility] ([facility])[address] [place] [address] Sodium [Moles/Vol] 137 mmol/L Low 138.0-146.0 [facility] Comment on above: Performed By: #### L [id number] ####[facility] ([facility])[address] [place] [address] CO2 [Moles/Vol] 32.0 mmol/L High 21.0-29.0 [facility] Comment on above: Performed By: #### L [id number] ####[facility] ([facility])[address] [place] [address] Glucose [Mass/Vol] 183 mg/dL High 70-105 [facility] Comment on above: Performed By: #### L [id number] ####[facility] ([facility])[address] [place] [address] HCO3 (Bld) [Moles/Vol] 30.4 mmol/L High 23.0-28.0 [facility] Comment on above: Performed By: #### L [id number] ####[facility] ([facility])[address] [place] [address] Hematocrit (Bld) [Volume fraction] 26 % Low 38-51 [facility] Comment on above: Performed By: #### L [id number] ####[facility] ([facility])[address] [place] [address] Hemoglobin (Bld) [Mass/Vol] 8.8 g/dL Low 12.0-17.0 [facility] Comment on above: Performed By: #### L [id number] ####[facility] ([facility])[address] [place] [address] POCT BASE EXCESS 5.0 mmol/L High -2.0-3.0 [facility] Comment on above: Performed By: #### L [id number] ####[facility] ([facility])[address] [place] [address] POCT IONIZED CALCIUM 1.07 mmol/L Low 1.12-1.32 [facility] Comment on above: Performed By: #### L [id number] ####[facility] ([facility])[address] [place] [address] POCT PCO2 48.1 mmHg Normal 41.0-51.0 [facility] Comment on above: Performed By: #### L [id number] ####[facility] ([facility])[address] [place] [address] POCT PH 7.41 Normal 7.31-7.41 [facility] Comment on above: Performed By: #### L [id number] ####[facility] ([facility])[address] [place] [address] POCT PO2 407 mmHg High 80-105 [facility] Comment on above: Performed By: #### L [id number] ####[facility] ([facility])[address] [place] [address] POCT SO2 100 % High 95-98 [facility] Comment on above: Performed By: #### L [id number] ####[facility] ([facility])[address] [place] [address] Potassium [Moles/Vol] 5.7 mmol/L High 3.5-4.9 [facility] Comment on above: Performed By: #### L [id number] ####[facility] ([facility])[address] [place] [address] Sodium [Moles/Vol] 137 mmol/L Low 138.0-146.0 [facility] Comment on above: Performed By: #### L [id number] ####[facility] ([facility])[address] [place] [address] CO2 [Moles/Vol] 31.0 mmol/L High 21.0-29.0 [facility] Comment on above: Performed By: #### L [id number] ####[facility] ([facility])[address] [place] [address] Glucose [Mass/Vol] 175 mg/dL High 70-105 [facility] Comment on above: Performed By: #### L [id number] ####[facility] ([facility])[address] [place] [address] HCO3 (Bld) [Moles/Vol] 29.7 mmol/L High 23.0-28.0 [facility] Comment on above: Performed By: #### L [id number] ####[facility] ([facility])[address] [place] [address] Hematocrit (Bld) [Volume fraction] 25 % Low 38-51 [facility] Comment on above: Performed By: #### L [id number] ####[facility] ([facility])[address] [place] [address] Hemoglobin (Bld) [Mass/Vol] 8.5 g/dL Low 12.0-17.0 [facility] Comment on above: Performed By: #### L [id number] ####[facility] ([facility])[address] [place] [address] POCT BASE EXCESS 5.0 mmol/L High -2.0-3.0 [facility] Comment on above: Performed By: #### L [id number] ####[facility] ([facility])[address] [place] [address] POCT IONIZED CALCIUM 1.02 mmol/L Low 1.12-1.32 [facility] Comment on above: Performed By: #### L [id number] ####[facility] ([facility])[address] [place] [address] POCT PCO2 45.4 mmHg Normal 41.0-51.0 [facility] Comment on above: Performed By: #### L [id number] ####[facility] ([facility])[address] [place] [address] POCT PH 7.42 High 7.31-7.41 [facility] Comment on above: Performed By: #### L [id number] ####[facility] ([facility])[address] [place] [address] POCT PO2 429 mmHg High 80-105 [facility] Comment on above: Performed By: #### L [id number] ####[facility] ([facility])[address] [place] [address] POCT SO2 100 % High 95-98 [facility] Comment on above: Performed By: #### L [id number] ####[facility] ([facility])[address] [place] [address] Potassium [Moles/Vol] 5.5 mmol/L High 3.5-4.9 [facility] Comment on above: Performed By: #### L [id number] ####[facility] ([facility]AKER)[address] [place] [address] Sodium [Moles/Vol] 136 mmol/L Low 138.0-146.0 [facility] Comment on above: Performed By: #### L [id number] ####[facility] ([facility]AKER)[address] [place] [address] Hematocrit (Bld) [Volume fraction] 25 % Low 38-51 [facility] Comment on above: Performed By: #### L [id number] ####[facility] ([facility]AKER)[address] [place] [address] Hemoglobin (Bld) [Mass/Vol] 8.5 g/dL Low 12.0-17.0 [facility] Comment on above: Performed By: #### L [id number] ####[facility] ([facility]AKER)[address] [place] [address] POCT BASE EXCESS Normal [facility] Comment on above: Performed By: #### L [id number] ####[facility] ([facility]AKER)[address] [place] [address] [facility] Comment on above: Performed By: #### L [id number] ####[facility] ([facility]AKER)[address] [place] [address] [facility] Comment on above: Performed By: #### L [id number] ####[facility] ([facility]AKER)[address] [place] [address] POCT IONIZED CALCIUM Normal [facility] [facility] Comment on above: Performed By: #### L [id number] ####[facility] (AKER)[address] [place] [address] [facility] Comment on above: Performed By: #### L [id number] ####[facility] (BEAKER)[address] [place] [address] [facility] Comment on above: Performed By: #### L [id number] ####[facility] (BEAKER)[address] [place] [address] POCT PO2 39 mmHg Low 80-105 [facility] Comment on above: Performed By: #### L [id number] ####[facility] (BEAKER)[address] [place] [address] [facility] Comment on above: Performed By: #### L [id number] ####[facility] (BEAKER)[address] [place] [address] POCT SO2 72 % Low 95-98 [facility] Comment on above: Performed By: #### L [id number] ####[facility] (BEAKER)[address] [place] [address] [facility] Comment on above: Performed By: #### L [id number] ####[facility] (BEAKER)[address] [place] [address] POCT TOTAL CO2 [address] [facility] Comment on above: Performed By: #### L [id number] ####[facility] (BEAKER)[address] [place] [address] CO2 [Moles/Vol] 28.0 mmol/L Normal 21.0-29.0 [facility] Comment on above: Performed By: #### L [id number] ####[facility] (BEAKER)[address] [place] [address] Glucose [Mass/Vol] 222 mg/dL High 70-105 [facility] Comment on above: Performed By: #### L [id number] ####[facility] (BEAKER)[address] [place] [address] HCO3 (Bld) [Moles/Vol] 26.3 mmol/L Normal 23.0-28.0 [facility] Comment on above: Performed By: #### L [id number] ####[facility] (BEAKER)[address] [place] [address] Hematocrit (Bld) [Volume fraction] 33 % Low 38-51 [facility] Comment on above: Performed By: #### L [id number] ####[facility] (BEAKER)[address] [place] [address] Hemoglobin (Bld) [Mass/Vol] 11.2 g/dL Low 12.0-17.0 [facility] Comment on above: Performed By: #### L [id number] ####[facility] (BEAKER)[address] [place] [address] POCT BASE EXCESS 0.0 mmol/L Normal -2.0-3.0 [facility] Comment on above: Performed By: #### L [id number] ####[facility] (BEAKER)[address] [place] [address] POCT IONIZED CALCIUM 1.21 mmol/L Normal 1.12-1.32 [facility] Comment on above: Performed By: #### L [id number] ####[facility] (BEAKER)[address] [place] [address] POCT PCO2 46.6 mmHg Normal 41.0-51.0 [facility] Comment on above: Performed By: #### L [id number] ####[facility] (BEAKER)[address] [place] [address] POCT PH 7.36 Normal 7.31-7.41 [facility] Comment on above: Performed By: #### L [id number] ####[facility] [place] [address] POCT PO2 236 mmHg High 80-105 [facility] Comment on above: Performed By: #### L [id number] ####[facility] ([facility])[address] [place] [address] POCT SO2 100 % High 95-98 [facility] Comment on above: Performed By: #### L [id number] ####[facility] ([facility])[address] [place] [address] Potassium [Moles/Vol] 4.9 mmol/L Normal 3.5-4.9 [facility] Comment on above: Performed By: #### L [id number] ####[facility] (BEAKER)[address] [place] [address] Sodium [Moles/Vol] 137 mmol/L Low 138.0-146.0 [facility] Comment on above: Performed By: #### L [id number] ####[facility] (BEAKER)[address] [place] [address] CO2 [Moles/Vol] 28.0 mmol/L Normal 21.0-29.0 [facility] Comment on above: Performed By: #### L [id number] ####[facility] (BEAKER)[address] [place] [address] Glucose [Mass/Vol] 222 mg/dL High 70-105 [facility] Comment on above: Performed By: #### L [id number] ####[facility] (BEAKER)[address] [place] [address] HCO3 (Bld) [Moles/Vol] 27.0 mmol/L Normal 23.0-28.0 [facility] Comment on above: Performed By: #### L [id number] ####[facility] (BEAKER)[address] [place] [address] Hematocrit (Bld) [Volume fraction] 34 % Low 38-51 [facility] Comment on above: Performed By: #### L [id number] ####[facility] ([facility])[address] [place] [address] Hemoglobin (Bld) [Mass/Vol] 11.6 g/dL Low 12.0-17.0 [facility] Comment on above: Performed By: #### L [id number] ####[facility] ([facility])[address] [place] [address] POCT BASE EXCESS 1.0 mmol/L Normal -2.0-3.0 [facility] Comment on above: Performed By: #### L [id number] ####[facility] ([facility])[address] [place] [address] POCT IONIZED CALCIUM 1.22 mmol/L Normal 1.12-1.32 [facility] Comment on above: Performed By: #### L [id number] ####[facility] ([facility])[address] [place] [address] POCT PCO2 50.2 mmHg Normal 41.0-51.0 [facility] Comment on above: Performed By: #### L [id number] ####[facility] (BEAKER)[address] [place] [address] POCT PH 7.34 Normal 7.31-7.41 [facility] Comment on above: Performed By: #### L [id number] ####[facility] (BEAKER)[address] [place] [address] POCT PO2 454 mmHg High 80-105 [facility] Comment on above: Performed By: #### L [id number] ####[facility] (BEAKER)[address] [place] [address] POCT SO2 100 % High 95-98 [facility] Comment on above: Performed By: #### L [id number] ####[facility] (BEASHLEY)[address] [place] [address] Potassium [Moles/Vol] 4.6 mmol/L Normal 3.5-4.9 [facility] Comment on above: Performed By: #### L [id number] ####[facility] ([place])[address] [place] [address] Sodium [Moles/Vol] 137 mmol/L Low 138.0-146.0 [facility] Comment on above: Performed By: #### L [id number] ####[facility] ([place])[address] [place] [address] PROTIME-INRon 01-15-2023 INR IN PPP BY COAGULATION ASSAY 1.28 High 0.90-1.10 [facility] Comment on above: Result Comment: [facility] P RECOMMENDED INR FOR WARFARIN THERAPY CONDITION INRPROPHYLAXIS OF VENOUS THROMBOSIS 2-3(HIGH-RISK SURGERY)TREATMENT OF VENOUS THROMBOSIS 2-3TREATMENT OF PULMONARY EMBOLISM 2-3PREVENTION OF SYSTEMIC EMBOLISM: 2-3 ACUTE MYOCARDIAL INFARCTION TISSUE HEART VALVES VALVULAR HEART DISEASE ATRIAL FIBRILLATION RECURRENT SYSTEMIC EMBOLISMMECHANICAL HEART VALVE 2.5-3.5 FROM: ORAL ANTICOAGULANTS. MECHANISM OF ACTION, CLINICAL EFFECTIVENESS, AND OPTIMAL THERAPEUTIC RANGE. CHEST 1995;108:231S-246S. Performed By: #### L [id number] ####[facility] (BEASHLEY)[address] [place] [address] PROTHROMBIN TIME (PT) IN PPP BY COAGULATION ASSAY 15.9 Seconds High 12.3-14.8 [facility] Comment on above: Performed By: #### L [id number] ####[facility] ([employer])[address] [place] [address] INR IN PPP BY COAGULATION ASSAY 1.53 High 0.90-1.10 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 MECHANISM OF ACTION, CLINICAL EFFECTIVENESS, AND OPTIMAL THERAPEUTIC RANGE. CHEST 1995;108:231S-246S. Performed By: #### L [id number] ####[facility] ([employer])[address] [place] [address] PROTHROMBIN TIME (PT) IN PPP BY COAGULATION ASSAY 18.2 Seconds High 12.3-14.8 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 Comment on above: Result Comment: [facility] P RECOMMENDED INR FOR WARFARIN THERAPY CONDITION INRPROPHYLAXIS OF VENOUS THROMBOSIS 2-3(HIGH-RISK SURGERY)TREATMENT OF VENOUS THROMBOSIS 2-3TREATMENT OF PULMONARY EMBOLISM 2-3PREVENTION OF SYSTEMIC EMBOLISM: 2-3 ACUTE MYOCARDIAL INFARCTION TISSUE HEART VALVES VALVULAR HEART DISEASE ATRIAL FIBRILLATION RECURRENT SYSTEMIC EMBOLISMMECHANICAL HEART VALVE 2.5-3.5 FROM: ORAL ANTICOAGULANTS. MECHANISM OF ACTION, CLINICAL EFFECTIVENESS, AND OPTIMAL THERAPEUTIC RANGE. CHEST 1995;108:231S-246S. Performed By: #### L [id number] ####[facility] [employer])[address] [place] [address] PROTHROMBIN TIME (PT) IN PPP BY COAGULATION ASSAY 13.5 Seconds Normal 12.3-14.8 [facility] Comment on above: Performed By: #### L [id number] ####[facility] [employer])[address] [place] [address] BASIC METABOLIC PANELon 05-2 Anion gap [Moles/Vol] 15 mmol/L Normal 7-20 [facility] Comment on above: Performed By: #### L [id number] ####[facility] ([employer])[address] [place] [address] Calcium [Mass/Vol] 9.2 mg/dL Normal 8.6-10.3 [facility] Comment on above: Performed By: #### L [id number] ####[facility] ([facility] [place] [address] Chloride [Moles/Vol] 101 mmol/L Normal 98-107 [facility] Comment on above: Performed By: #### L [id number] ####[facility] ([facility])[address] [place] [address] CO2 [Moles/Vol] 23 mmol/L Normal 21-31 [facility] Comment on above: Performed By: #### L [id number] ####[facility] ([facility])[address] [place] [address] Creatinine [Mass/Vol] 1.06 mg/dL Normal 0.70-1.30 [facility] Comment on above: Performed By: #### L [id number] ####[facility] ([facility])[address] [place] [address] GLOMERULAR FILTRATION RATE ML/MIN/1.73 SQ M.PREDICTED 70.5 mL/min/1.73m*2 Normal >60.0 [facility] Comment on above: Result Comment: The [facility]???s estimated glomerular filtration rate (eGFR) will no longer include consideration of race in its calculation. The National Kidney Foundation???s eGFR Task Force developed new recommendations for the estimation of the glomerular filtration rate in the [place] They recommend immediate implementation of the new equation refit without the race variable in all laboratories because the calculation does not include race. In addition to not including race in the calculation and reporting, it included diversity in its development, and has acceptable performance characteristics and potential consequences that do not disproportionately affect any one group of individuals. Performed By: #### L [id number] ####[facility] ([facility])[address] [place] [address] Glucose [Mass/Vol] 353 mg/dL High 70-100 [facility] Comment on above: Performed By: #### L [id number] ####[facility] ([facility])[address] [place] [address] Potassium [Moles/Vol] 4.0 mmol/L Normal 3.5-5.1 [facility] Comment on above: Performed By: #### L [id number] ####[facility] (BEAKER)[address] [place] [address] Sodium [Moles/Vol] 135 mmol/L Low 136-145 [facility] Comment on above: Performed By: #### L [id number] ####[facility] (BEAKER)[address] [place] [address] Urea nitrogen [Mass/Vol] 19 mg/dL Normal 7-25 [facility] Comment on above: Performed By: #### L [id number] ####[facility] (BEAKER)[address] [place] [address] UREA NITROGEN/CREATININ E (MASS RATIO) IN SER/PLAS 17.[address] [facility] Comment on above: Performed By: #### L [id number] ####[facility] (BEAKER)[address] [place] [address] CBCon 01-14-2023 Erythrocyte distribution width (RBC) [Ratio] 13.2 % Normal 11.5-15.0 [facility] Comment on above: Performed By: #### L [id number] ####[facility] (BEAKER)[address] [place] [address] ERYTHROCYTE MEAN CORPUSCULAR HEMOGLOBIN CONCENTRATION (G/DL) BY AUTOMATED 34.3 g/dL Normal 32.0-35.0 [facility] Comment on above: Performed By: #### L [id number] ####[facility] (BEAKER)[address] [place] [address] Hematocrit (Bld) [Volume fraction] 40.5 % Normal 39.0-55.0 [facility] Comment on above: Performed By: #### L [id number] ####[facility] (BEAKER)[address] [place] [address] Hemoglobin (Bld) [Mass/Vol] 13.9 g/dL Normal 13.0-17.0 [facility] Comment on above: Performed By: #### L [id number] ####[facility] (BEAKER)[address] [place] [address] MCH (RBC) [Entitic mass] 31.5 pg Normal 27.0-33.0 [facility] Comment on above: Performed By: #### L [id number] ####[facility] ([facility])[address] [place] [address] MCV (RBC) [Entitic vol] 91.8 fL Normal 82.0-98.0 [facility] Comment on above: Performed By: #### L [id number] ####[facility] ([facility])[address] [place] [address] PLATELETS (10*3/UL) IN BLOOD AUTOMATED COUNT 179 10*3/uL Normal 150-400 [facility] Comment on above: Performed By: #### L [id number] ####[facility] ([facility])[address] [place] [address] RBC (Bld) [#/Vol] 4.41 10*6/uL Normal 4.20-5.70 [facility] Comment on above: Performed By: #### L [id number] ####[facility] ([facility])[address] [place] [address] WBC (Bld) [#/Vol] 7.01 10*3/uL Normal 4.00-10.60 [facility] Comment on above: Performed By: #### L [id number] ####[facility] ([facility])[address] [place] [address] HEPARIN LEVELon 01-14-2023 HEPARIN UNFRACTIONATED (U/ML) IN PPP BY CHROMOGENIC METHOD 0.41 IU/mL Normal 0.3-0.7 [facility] Comment on above: Result Comment: Davidson roxaban and Apixaban will interfere with the anti Xa assay used to monitor UFH and LMWH. Performed By: #### L [id number] ####[facility] ([facility])[address] [place] [address] MRSA/MSSA DNA NASALon 2022 MRSA DNA Negative Normal Negative [facility] Comment on above: Performed By: #### L [id number] ####[facility] ([facility])[address] [place] [address] MSSA DNA Negative Normal Negative [facility] Comment on above: Performed By: #### L [id number] ####[facility] ([facility])[address] [place] [address] POCT GLUCOSE METER UNSOLICIT ED RESULTSon 01-14-2023 Glucose [Mass/Vol] 165 mg/dL High 70-105 [facility] Comment on above: Result Comment: shannon aga Performed By: #### L [id number] ####[facility] ([facility])[address] [place] [address] Glucose [Mass/Vol] 249 mg/dL High 70-105 [facility] Comment on above: Result Comment: shannon aga Performed By: #### L [id number] ####[facility] ([facility])[address] [place] [address] Glucose [Mass/Vol] 300 mg/dL High 70-105 [facility] Comment on above: Result Comment: shannon aga Performed By: #### L [id number] ####[facility] ([facility])[address] [place] [address] TYPE AND SCREENon 01-14-[address] AB [address]CREEN Negative Normal [facility] Comment on above: Performed By: #### L [id number] ####[facility], ABO group Nom (Bld) B Normal [facility] Comment on above: Performed By: #### L [id number] ####[facility], RH TYPE IN BLOOD Positive Normal [facility] Comment on above: Performed By: #### L [id number] ####[facility], URINALYSIS WITH REFLEX CULTU REon 01-14-2023 BILIRUBIN, TOTAL PRESENCE IN URINE Negative Normal Negative [facility] Comment on above: Order Comment: Micro scopics not performed on urines with negative chemical reactions unless requested on original order. Performed By: #### L [id number] ####[facility] [place] [address] Clarity (U) Clear Normal Clear [facility] Comment on above: Order Comment: Micro scopics not performed on urines with negative chemical reactions unless requested on original order. Performed By: #### L [id number] ####[facility] ([facility])[address] [place] [address] Color (U) Yellow Normal Yellow [facility] Comment on above: Order Comment: Micro scopics not performed on urines with negative chemical reactions unless requested on original order. Performed By: #### L [id number] ####[facility] ([facility])[address] [place] [address] Glucose (U) [Mass/Vol] mg/dL Abnormal Negative [facility] Comment on above: Order Comment: Micro scopics not performed on urines with negative chemical reactions unless requested on original order. Performed By: #### L [id number] ####[facility] ([facility])[address] [place] [address] HEMOGLOBIN PRESENCE IN URINE Negative Normal Negative [facility] Comment on above: Order Comment: Micro scopics not performed on urines with negative chemical reactions unless requested on original order. Performed By: #### L [id number] ####[facility] ([facility])[address] [place] [address] Ketones Ql (U) Negative Normal Negative [facility] Comment on above: Order Comment: Micro scopics not performed on urines with negative chemical reactions unless requested on original order. Performed By: #### L [id number] ####[facility] ([facility])[address] [place] [address] LEUKOCYTE ESTERASE PRESENCE IN URINE BY TEST STRIP Negative Normal Negative [facility] Comment on above: Order Comment: Micro scopics not performed on urines with negative chemical reactions unless requested on original order. Performed By: #### L [id number] ####[facility] ([facility])[address] [place] [address] NITRITE PRESENCE IN URINE Negative Normal Negative [facility] Comment on above: Order Comment: Micro scopics not performed on urines with negative chemical reactions unless requested on original order. Performed By: #### L [id number] ####[facility] ([facility])[address] [place], [place] [address] pH (U) 5.0 [pH] Normal 5.0-8.0 [facility] Comment on above: Order Comment: Micro scopics not performed on urines with negative chemical reactions unless requested on original order. Performed By: #### L [id number] ####[facility] ([facility])[address] [place], [place] [address] Protein (U) [Mass/Vol] Negative Normal Negative [facility] Comment on above: Order Comment: Micro scopics not performed on urines with negative chemical reactions unless requested on original order. Performed By: #### L [id number] ####[facility] ([facility])[address] [place] [address] Specific gravity (U) [Rel density] 1.020 Normal 1.015-1.020 [facility] Comment on above: Order Comment: Micro scopics not performed on urines with negative chemical reactions unless requested on original order. Performed By: #### L [id number] ####[facility] ([facility])[address] [place] [address] UROBILINOGEN (EU/DL) IN URINE 4.0 EU/dL Abnormal Negative [facility] Comment on above: Order Comment: Micro scopics not performed on urines with negative chemical reactions unless requested on original order. Performed By: #### L [id number] ####[facility] ([facility])[address] [place] [address] ANESon 01-13-[address] [facility] BASIC METABOLIC PANELon 05-2 Anion gap [Moles/Vol] 13 mmol/L Normal -20 [facility] Comment on above: Performed By: #### L [id number] ####[facility] ([facility])[address] [place] [address] Calcium [Mass/Vol] 8.9 mg/dL Normal 8.6-10.3 [facility] Comment on above: Performed By: #### L [id number] ####[facility] (BEAKER)[address] [place] [address] Chloride [Moles/Vol] 104 mmol/L Normal 98-107 [facility] Comment on above: Performed By: #### L [id number] ####[facility] (BEAKER)[address] [place] [address] CO2 [Moles/Vol] 24 mmol/L Normal 21-31 [facility] Comment on above: Performed By: #### L [id number] ####[facility] (BEAKER)[address] [place] [address] Creatinine [Mass/Vol] 0.98 mg/dL Normal 0.70-1.30 [facility] Comment on above: Performed By: #### L [id number] ####[facility] ([facility])[address] [place] [address] GLOMERULAR FILTRATION RATE ML/MIN/1.73 SQ M.PREDICTED 77.5 mL/min/1.73m*2 Normal >60.0 [facility] Comment on above: Result Comment: The [facility]???s estimated glomerular filtration rate (eGFR) will no longer include consideration of race in its calculation. The National Kidney Foundation???s eGFR Task Force developed new recommendations for the estimation of the glomerular filtration rate in the [place] They recommend immediate implementation of the new equation refit without the race variable in all laboratories because the calculation does not include race. In addition to not including race in the calculation and reporting, it included diversity in its development, and has acceptable performance characteristics and potential consequences that do not disproportionately affect any one group of individuals. Performed By: #### L [id number] ####[facility] (BEAKER)[address] [place] [address] Glucose [Mass/Vol] 213 mg/dL High 70-100 [facility] Comment on above: Performed By: #### L [id number] ####[facility] (BEAKER)[address] [place] [address] Potassium [Moles/Vol] 4.1 mmol/L Normal 3.5-5.1 [facility] Comment on above: Performed By: #### L [id number] ####[facility] ([facility])[address] [place] [address] Sodium [Moles/Vol] 137 mmol/L Normal 136-145 [facility] Comment on above: Performed By: #### L [id number] ####[facility] ([facility])[address] [place] [address] Urea nitrogen [Mass/Vol] 16 mg/dL Normal 7-25 [facility] Comment on above: Performed By: #### L [id number] ####[facility] ([facility])[address] [place] [address] UREA NITROGEN/CREATININ E (MASS RATIO) IN SER/PLAS 16.[address] [facility] Comment on above: Performed By: #### L [id number] ####[facility] ([facility])[address] [place] [address] CBCon 01-13-2023 Erythrocyte distribution width (RBC) [Ratio] 13.1 % Normal 11.5-15.0 [facility] Comment on above: Performed By: #### L [id number] ####[facility] ([facility])[address] [place] [address] ERYTHROCYTE MEAN CORPUSCULAR HEMOGLOBIN CONCENTRATION (G/DL) BY AUTOMATED 34.5 g/dL Normal 32.0-35.0 [facility] Comment on above: Performed By: #### L [id number] ####[facility] ([facility])[address] [place] [address] Hematocrit (Bld) [Volume fraction] 41.5 % Normal 39.0-55.0 [facility] Comment on above: Performed By: #### L [id number] ####[facility] ([facility])[address] [place] [address] Hemoglobin (Bld) [Mass/Vol] 14.3 g/dL Normal 13.0-17.0 [facility] Comment on above: Performed By: #### L [id number] ####[facility] ([facility])[address] [place] [address] MCH (RBC) [Entitic mass] 31.3 pg Normal 27.0-33.0 [facility] Comment on above: Performed By: #### L [id number] ####[facility] ([facility])[address] [place] [address] MCV (RBC) [Entitic vol] 90.8 fL Normal 82.0-98.0 [facility] Comment on above: Performed By: #### L [id number] ####[facility] ([facility])[address] [place] [address] PLATELETS (10*3/UL) IN BLOOD AUTOMATED COUNT 171 10*3/uL Normal 150-400 [facility] Comment on above: Performed By: #### L [id number] ####[facility] ([facility])[address] [place] [address] RBC (Bld) [#/Vol] 4.57 10*6/uL Normal 4.20-5.70 [facility] Comment on above: Performed By: #### L [id number] ####[facility] ([facility])[address] [place] [address] WBC (Bld) [#/Vol] 7.08 10*3/uL Normal 4.00-10.60 [facility] Comment on above: Performed By: #### L [id number] ####[facility] ([facility])[address] [place] [address] HEPARIN LEVELon 01-13-2023 HEPARIN UNFRACTIONATED (U/ML) IN PPP BY CHROMOGENIC METHOD 0.47 IU/mL Normal 0.3-0.7 [facility] Comment on above: Result Comment: Davidson roxaban and Apixaban will interfere with the anti Xa assay used to monitor UFH and LMWH. Performed By: #### L [id number] ####[facility] ([facility])[address] [place] [address] POCT GLUCOSE METER UNSOLICIT ED RESULTSon 01-13-2023 Glucose [Mass/Vol] 242 mg/dL High 70-105 [facility] Comment on above: Result Comment: ace muñoz Performed By: #### L [id number] ####[facility] ([facility])[address] [place] [address] Glucose [Mass/Vol] 129 mg/dL High 70-105 [facility] Comment on above: Result Comment: miki asher Performed By: #### L [id number] ####[facility] ([facility])[address] [place] [address] Glucose [Mass/Vol] 282 mg/dL High 70-105 [facility] Comment on above: Result Comment: shannon ervin Performed By: #### L [id number] ####[facility] ([facility])[address] [place] [address] Glucose [Mass/Vol] 271 mg/dL High 70-105 [facility] Comment on above: Result Comment: shannon ervin Performed By: #### L [id number] ####[facility] ([facility])[address] [place] [address] 30on 01-12-[address] [facility] [address] [facility] BASIC METABOLIC PANELon 05- Anion gap [Moles/Vol] 13 mmol/L Normal 7-20 [facility] Comment on above: Performed By: #### L [id number] ####[facility] ([facility])[address] [place] [address] Calcium [Mass/Vol] 8.8 mg/dL Normal 8.6-10.3 [facility] Comment on above: Performed By: #### L [id number] ####[facility] ([facility])[address] [place] [address] Chloride [Moles/Vol] 105 mmol/L Normal 98-107 [facility] Comment on above: Performed By: #### L [id number] ####[facility] ([facility])[address] [place] [address] CO2 [Moles/Vol] 24 mmol/L Normal 21-31 [facility] Comment on above: Performed By: #### L [id number] ####[facility] ([facility])[address] [place] [address] Creatinine [Mass/Vol] 0.97 mg/dL Normal 0.70-1.30 [facility] Comment on above: Performed By: #### L [id number] ####[facility] ([facility])[address] [place] [address] GLOMERULAR FILTRATION RATE ML/MIN/1.73 SQ M.PREDICTED 78.4 mL/min/1.73m*2 Normal >60.0 [facility] Comment on above: Result Comment: The [facility]???s estimated glomerular filtration rate (eGFR) will no longer include consideration of race in its calculation. The National Kidney Foundation???s eGFR Task Force developed new recommendations for the estimation of the glomerular filtration rate in the [place] They recommend immediate implementation of the new equation refit without the race variable in all laboratories because the calculation does not include race. In addition to not including race in the calculation and reporting, it included diversity in its development, and has acceptable performance characteristics and potential consequences that do not disproportionately affect any one group of individuals. Performed By: #### L [id number] ####[facility] ([facility])[address] [place] [address] Glucose [Mass/Vol] 215 mg/dL High 70-100 [facility] Comment on above: Performed By: #### L [id number] ####[facility] ([facility])[address] [place] [address] Potassium [Moles/Vol] 4.2 mmol/L Normal 3.5-5.1 [facility] Comment on above: Performed By: #### L [id number] ####[facility] ([facility])[address] [place] [address] Sodium [Moles/Vol] 138 mmol/L Normal 136-145 [facility] Comment on above: Performed By: #### L [id number] ####[facility] ([facility])[address] [place] [address] Urea nitrogen [Mass/Vol] 18 mg/dL Normal 7-25 [facility] Comment on above: Performed By: #### L [id number] ####[facility] ([facility])[address] [place] [address] UREA NITROGEN/CREATININ E (MASS RATIO) IN SER/PLAS 18.[address] [facility] Comment on above: Performed By: #### L [id number] ####[facility] ([facility])[address] [place] [address] CBCon 01-12-2023 Erythrocyte distribution width (RBC) [Ratio] 13.1 % Normal 11.5-15.0 [facility] Comment on above: Performed By: #### L [id number] ####[facility] ([facility])[address] [place] [address] ERYTHROCYTE MEAN CORPUSCULAR HEMOGLOBIN CONCENTRATION (G/DL) BY AUTOMATED 34.4 g/dL Normal 32.0-35.0 [facility] Comment on above: Performed By: #### L [id number] ####[facility] ([facility])[address] [place] [address] Hematocrit (Bld) [Volume fraction] 42.7 % Normal 39.0-55.0 [facility] Comment on above: Performed By: #### L [id number] ####[facility] ([facility])[address] [place] [address] Hemoglobin (Bld) [Mass/Vol] 14.7 g/dL Normal 13.0-17.0 [facility] Comment on above: Performed By: #### L [id number] ####[facility] ([facility])[address] [place] [address] MCH (RBC) [Entitic mass] 31.3 pg Normal 27.0-33.0 [facility] Comment on above: Performed By: #### L [id number] ####[facility] ([facility])[address] [place] [address] MCV (RBC) [Entitic vol] 91.0 fL Normal 82.0-98.0 [facility] Comment on above: Performed By: #### L [id number] ####[facility] ([facility])[address] [place] [address] PLATELETS (10*3/UL) IN BLOOD AUTOMATED COUNT 175 10*3/uL Normal 150-400 [facility] Comment on above: Performed By: #### L [id number] ####[facility] ([facility])[address] [place] [address] RBC (Bld) [#/Vol] 4.69 10*6/uL Normal 4.20-5.70 [facility] Comment on above: Performed By: #### L [id number] ####[facility] ([facility])[address] [place] [address] WBC (Bld) [#/Vol] 6.50 10*3/uL Normal 4.00-10.60 [facility] Comment on above: Performed By: #### L [id number] ####[facility] ([facility])[address] [place] [address] HEPARIN LEVELon 01-12-2023 HEPARIN UNFRACTIONATED (U/ML) IN PPP BY CHROMOGENIC METHOD 0.28 IU/mL Low 0.3-0.7 [facility] Comment on above: Order Comment: Check anti-Xa level every 6 hours while on heparin infusion, or per protocol. Result Comment: Davidson roxaban and Apixaban will interfere with the anti Xa assay used to monitor UFH and LMWH. Performed By: #### L [id number] ####[facility] ([facility])[address] [place] [address] HEPARIN UNFRACTIONATED (U/ML) IN PPP BY CHROMOGENIC METHOD 0.41 IU/mL Normal 0.3-0.7 [facility] Comment on above: Order Comment: Check anti-Xa level every 6 hours while on heparin infusion, or per protocol. Result Comment: Jessica roxaban and Apixaban will interfere with the anti Xa assay used to monitor UFH and LMWH. Performed By: #### L [id number] ####[facility] ([facility])[address] [place] [address] HEPARIN UNFRACTIONATED (U/ML) IN PPP BY CHROMOGENIC METHOD 0.27 IU/mL Low 0.3-0.7 [facility] Comment on above: Order Comment: Check anti-Xa level every 6 hours while on heparin infusion, or per protocol. Result Comment: Davidson roxaban and Apixaban will interfere with the anti Xa assay used to monitor UFH and LMWH. Performed By: #### L [id number] ####[facility] ([facility])[address] [place] [address] POCT GLUCOSE METER UNSOLICIT ED RESULTSon 01-12-2023 Glucose [Mass/Vol] 266 mg/dL High 70-105 [facility] Comment on above: Result Comment: [email or web address] [id number] Value Noted Performed By: #### L [id number] ####[facility] ([facility])[address] [place] [address] Glucose [Mass/Vol] 251 mg/dL High 70-105 [facility] Comment on above: Result Comment: [email or web address] Performed By: #### L [id number] ####[facility] ([facility])[address] [place] [address] Glucose [Mass/Vol] 260 mg/dL High 70-105 [facility] Comment on above: Result Comment: shannon ervin Performed By: #### L [id number] ####[facility] ([facility])[address] [place] [address] Glucose [Mass/Vol] 226 mg/dL High 70-105 [facility] Comment on above: Result Comment: donta pel2 Performed By: #### L [id number] ####[facility] ([facility])[address] [place] [address] 30on 01-11-[address] [facility] [address] [facility] [address] [facility] HEPARIN LEVELon 01-11-2023 HEPARIN UNFRACTIONATED (U/ML) IN PPP BY CHROMOGENIC METHOD 0.32 IU/mL Normal 0.3-0.7 [facility] Comment on above: Order Comment: Check anti-Xa level every 6 hours while on heparin infusion, or per protocol. Result Comment: Jessica roxaban and Apixaban will interfere with the anti Xa assay used to monitor UFH and LMWH. Performed By: #### L [id number] ####[facility] ([facility])[address] [place] [address] HEPARIN UNFRACTIONATED (U/ML) IN PPP BY CHROMOGENIC METHOD 0.17 IU/mL Low 0.3-0.7 [facility] Comment on above: Order Comment: Check anti-Xa level every 6 hours while on heparin infusion, or per protocol. Result Comment: Davidson roxaban and Apixaban will interfere with the anti Xa assay used to monitor UFH and LMWH. Performed By: #### L [id number] ####[facility] ([facility])[address] [place] [address] HEPARIN UNFRACTIONATED (U/ML) IN PPP BY CHROMOGENIC METHOD 0.39 IU/mL Normal 0.3-0.7 [facility] Comment on above: Order Comment: Check anti-Xa level every 6 hours while on heparin infusion, or per protocol. Result Comment: Jessica roxaban and Apixaban will interfere with the anti Xa assay used to monitor UFH and LMWH. Performed By: #### L [id number] ####[facility] ([facility])[address] [place] [address] HEPARIN UNFRACTIONATED (U/ML) IN PPP BY CHROMOGENIC METHOD 0.35 IU/mL Normal 0.3-0.7 [facility] Comment on above: Order Comment: Check anti-Xa level every 6 hours while on heparin infusion, or per protocol. Result Comment: Jessica roxaban and Apixaban will interfere with the anti Xa assay used to monitor UFH and LMWH. Performed By: #### L [id number] ####[facility] ([facility])[address] [place] [address] POCT GLUCOSE METER UNSOLICIT ED RESULTSon 01-11-2023 Glucose [Mass/Vol] 253 mg/dL High 70-105 [facility] Comment on above: Result Comment: [email or web address] Performed By: #### L [id number] ####[facility] ([facility])[address] [place] [address] Glucose [Mass/Vol] 262 mg/dL High 70-105 [facility] Comment on above: Result Comment: donta pel2 Performed By: #### L [id number] ####[facility] ([facility])[address] [place] [address] Glucose [Mass/Vol] 203 mg/dL High 70-105 [facility] Comment on above: Result Comment: donta pel2 Performed By: #### L [id number] ####[facility] ([facility])[address] [place] [address] Glucose [Mass/Vol] 198 mg/dL High 70-105 [facility] Comment on above: Result Comment: donta pel2 Performed By: #### L [id number] ####[facility] ([facility])[address] [place] [address] 30on 01-10-[address] [facility] [address] [facility] [address] [facility] BASIC METABOLIC PANELon 05- Anion gap [Moles/Vol] 12 mmol/L Normal 7-20 [facility] Comment on above: Performed By: #### L [id number] ####[facility] ([facility])[address] [place] [address] Calcium [Mass/Vol] 8.5 mg/dL Low 8.6-10.3 [facility] Comment on above: Performed By: #### L [id number] ####[facility] ([facility])[address] [place] [address] Chloride [Moles/Vol] 105 mmol/L Normal 98-107 [facility] Comment on above: Performed By: #### L [id number] ####[facility] ([facility])[address] [place] [address] CO2 [Moles/Vol] 24 mmol/L Normal 21-31 [facility] Comment on above: Performed By: #### L [id number] ####[facility] ([facility])[address] [place] [address] Creatinine [Mass/Vol] 0.93 mg/dL Normal 0.70-1.30 [facility] Comment on above: Performed By: #### L [id number] ####[facility] ([facility])[address] [place] [address] GLOMERULAR FILTRATION RATE ML/MIN/1.73 SQ M.PREDICTED 82.5 mL/min/1.73m*2 Normal >60.0 [facility] Comment on above: Result Comment: The [facility]???s estimated glomerular filtration rate (eGFR) will no longer include consideration of race in its calculation. The National Kidney Foundation???s eGFR Task Force developed new recommendations for the estimation of the glomerular filtration rate in the [place] They recommend immediate implementation of the new equation refit without the race variable in all laboratories because the calculation does not include race. In addition to not including race in the calculation and reporting, it included diversity in its development, and has acceptable performance characteristics and potential consequences that do not disproportionately affect any one group of individuals. Performed By: #### L [id number] ####[facility] ([facility])[address] [place] [address] Glucose [Mass/Vol] 160 mg/dL High 70-100 [facility] Comment on above: Performed By: #### L [id number] ####[facility] ([facility])[address] [place] [address] Potassium [Moles/Vol] 4.0 mmol/L Normal 3.5-5.1 [facility] Comment on above: Performed By: #### L [id number] ####[facility] ([facility])[address] [place] [address] Sodium [Moles/Vol] 137 mmol/L Normal 136-145 [facility] Comment on above: Performed By: #### L [id number] ####[facility] ([facility])[address] [place] [address] Urea nitrogen [Mass/Vol] 17 mg/dL Normal 7-25 [facility] Comment on above: Performed By: #### L [id number] ####[facility] ([facility])[address] [place] [address] UREA NITROGEN/CREATININ E (MASS RATIO) IN SER/PLAS 18.[address] [facility] Comment on above: Performed By: #### L [id number] ####[facility] ([facility])[address] [place] [address] CBCon 01-10-2023 Erythrocyte distribution width (RBC) [Ratio] 13.0 % Normal 11.5-15.0 [facility] Comment on above: Performed By: #### L [id number] ####[facility] ([facility])[address] [place] [address] ERYTHROCYTE MEAN CORPUSCULAR HEMOGLOBIN CONCENTRATION (G/DL) BY AUTOMATED 34.3 g/dL Normal 32.0-35.0 [facility] Comment on above: Performed By: #### L [id number] ####[facility] ([facility])[address] [place] [address] Hematocrit (Bld) [Volume fraction] 40.2 % Normal 39.0-55.0 [facility] Comment on above: Performed By: #### L [id number] ####[facility] ([facility])[address] [place] [address] Hemoglobin (Bld) [Mass/Vol] 13.8 g/dL Normal 13.0-17.0 [facility] Comment on above: Performed By: #### L [id number] ####[facility] ([facility])[address] [place] [address] MCH (RBC) [Entitic mass] 31.9 pg Normal 27.0-33.0 [facility] Comment on above: Performed By: #### L [id number] ####[facility] ([facility])[address] [place] [address] MCV (RBC) [Entitic vol] 92.8 fL Normal 82.0-98.0 [facility] Comment on above: Performed By: #### L [id number] ####[facility] ([facility])[address] [place] [address] PLATELETS (10*3/UL) IN BLOOD AUTOMATED COUNT 164 10*3/uL Normal 150-400 [facility] Comment on above: Performed By: #### L [id number] ####[facility] ([facility])[address] [place] [address] RBC (Bld) [#/Vol] 4.33 10*6/uL Normal 4.20-5.70 [facility] Comment on above: Performed By: #### L [id number] ####[facility] ([facility])[address] [place] [address] WBC (Bld) [#/Vol] 6.28 10*3/uL Normal 4.00-10.60 [facility] Comment on above: Performed By: #### L [id number] ####[facility] ([facility])[address] [place] [address] CONSULTon 01-10-[address] [facility] CT CHEST WO IV CONTRASTon CT CHEST WO IV CONTRAST Normal [facility] HEPARIN LEVELon 01-10-2023 HEPARIN UNFRACTIONATED (U/ML) IN PPP BY CHROMOGENIC METHOD 0.34 IU/mL Normal 0.3-0.7 [facility] Comment on above: Order Comment: Check anti-Xa level every 6 hours while on heparin infusion, or per protocol. Result Comment: Davidson roxaban and Apixaban will interfere with the anti Xa assay used to monitor UFH and LMWH. Performed By: #### L [id number] ####[facility] ([facility])[address] [place] [address] HEPARIN UNFRACTIONATED (U/ML) IN PPP BY CHROMOGENIC METHOD 0.42 IU/mL Normal 0.3-0.7 [facility] Comment on above: Result Comment: Jessica roxaban and Apixaban will interfere with the anti Xa assay used to monitor UFH and LMWH. Performed By: #### L [id number] ####[facility] ([facility])[address] [facility] [place] [address] HEPARIN UNFRACTIONATED (U/ML) IN PPP BY CHROMOGENIC METHOD 0.33 IU/mL Normal 0.3-0.7 [facility] Comment on above: Result Comment: Davidson roxaban and Apixaban will interfere with the anti Xa assay used to monitor UFH and LMWH. Performed By: #### L [id number] ####[facility] ([facility])[address] [place] [address] HPon 01-10-[address] [facility] LIPID PANELon 01-10-2023 CHOL/HDL 6.2 mg/dL Normal [facility] Comment on above: Performed By: #### L [id number] ####[facility] ([facility])[address] [facility] [place] [address] Cholesterol [Mass/Vol] 181 mg/dL Normal 120-200 [facility] Comment on above: Performed By: #### L [id number] ####[facility] ([facility])[address] [facility] [place] [address] CHOLESTEROL IN LDL (MG/DL) IN SERUM OR PLASMA BY CALCULATION Normal [facility] Comment on above: Result Comment: Calc ulated LDL invalid, triglycerides >400 mg/dl Performed By: #### L [id number] ####[facility] ([facility])[address] [facility] [place] [address] Magnesium [Mass/Vol] 417 mg/dL High 40-149 [facility] Comment on above: Result Comment: TRIG LYCERIDE REFERENCE RANGE:20 YEARS AND OLDER CARDIOVASCULAR RISKLESS THAN 150 mg/dL LOW [id number] TO 199 mg/dL BORDERLINE [id number] mg/dL AND GREATER HIGH RISK Performed By: #### L [id number] ####[facility] ([facility])[address] [facility] [place] [address] Magnesium [Mass/Vol] 29 mg/dL Normal 23-92 [facility] Comment on above: Performed By: #### L [id number] ####[facility] ([facility])[address] [place] [address] NON HDL CHOL. (LDL+VLDL) [address] [facility] Comment on above: Performed By: #### L [id number] ####[facility] ([facility])[address] [place] [address] TOTAL VLDL-C 83 mg/dL High 0-40 [facility] Comment on above: Performed By: #### L [id number] ####[facility] ([facility])[address] [place] [address] POCT GLUCOSE METER UNSOLICIT ED RESULTSon 01-10-2023 Glucose [Mass/Vol] 155 mg/dL High 70-105 [facility] Comment on above: Result Comment: yesenia co Performed By: #### L [id number] ####[facility] ([facility])[address] [place] [address] Glucose [Mass/Vol] 157 mg/dL High 70-105 [facility] Comment on above: Result Comment: beth armenta Performed By: #### L [id number] ####[facility] ([facility])[address] [place] [address] Glucose [Mass/Vol] 187 mg/dL High 70-105 [facility] Comment on above: Result Comment: beth armenta Performed By: #### L [id number] ####[facility] ([facility])[address] [place] [address] Glucose [Mass/Vol] 198 mg/dL High 70-105 [facility] Comment on above: Result Comment: shannon ervin Performed By: #### L [id number] ####[facility] ([facility])[address] [place] [address] TROPONIN Ion 01-10-2023 Troponin I.cardiac [Mass/Vol] 0.00 ng/mL Normal 0.00-0.04 [facility] Comment on above: Performed By: #### L [id number] ####[facility] ([facility])[address] [place] [address] ANESon 01-09-[address] [facility] APTTon 01-09-2023 ACTIVATED PARTIAL THROMBOPLASTIN TIME IN PPP BY COAGULATION ASSAY 24.8 Seconds Low 25.0-35.0 [facility] Comment on above: Order Comment: Basel ine aPTT before initiating heparin infusion. Result Comment: Clin ical significance of the APTT is questionable in the presence of heparin. Performed By: #### L [id number] ####[facility] ([facility])[address] [place] [address] CBC AUTO DIFFon 01-09-2023 BASO # 0.1 103/ul Normal 0.0-0.1 [facility] Comment on above: Performed By: #### C BC #### [facility] [address] [address] [address] Андрей [place] Basophils/100 WBC (Bld) 0.8 % Normal 0.2-2.0 [facility] Comment on above: Performed By: #### C BC #### [facility] [address] [address] [address] Андрей Toledo EO # 0.1 103/ul Normal 0.0-0.7 [facility] Comment on above: Performed By: #### C BC #### [facility] [address] [address] [address] Андрей Toledo Eosinophils/100 WBC (Bld) 2.3 % Normal 0.9-7.0 [facility] Comment on above: Performed By: #### C BC #### [facility] [address] [address] [address] Андрей Toledo Erythrocyte distribution width (RBC) [Ratio] 13.0 % Normal 11.0-15.0 [facility] Comment on above: Performed By: #### C BC #### [facility] [address] [place] [address] Dr. Андрей Toledo Hematocrit (Bld) [Volume fraction] 38.4 % Critically low 42.0-54.0 [facility] Comment on above: Performed By: #### C BC #### [facility] [address] [address] [address] Андрей Toledo Hemoglobin (Bld) [Mass/Vol] 13.1 g/dL Critically low 14.0-18.0 [facility] Comment on above: Performed By: #### C BC #### [facility] [address] [address] [address] Андрей Toledo IG # 0.11 10e3/ul Critically high 0.00-0.03 [facility] Comment on above: Performed By: #### C BC #### [facility] [address] [place] [address] Dr. Андрей Toledo IG % 1.8 % Critically high 0.0-0.5 [facility] Comment on above: Performed By: #### C BC #### [facility] [address] [place] [address] Dr. Андрей Toledo LYMPH # 1.3 103/ul Normal 1.2-3.8 [facility] Comment on above: Performed By: #### C BC #### [facility] [address] [place] [address] Dr. Андрей Toledo Lymphocytes/100 WBC (Bld) 22.2 % Normal 20.5-60.0 [facility] Comment on above: Performed By: #### C BC #### [facility] [address] [place] [address] Dr. Андрей Toledo MANUAL DIFF REQ NO Normal [facility] Comment on above: Performed By: #### C BC #### [facility] [address] [place] [address] Dr. Андрей Toledo MCH (RBC) [Entitic mass] 32.2 pg Normal 25.9-34.0 [facility] Comment on above: Performed By: #### C BC #### [facility] [address] [place] [address] Dr. Андрей Toledo MCHC (RBC) [Mass/Vol] 34.1 g/dL Normal 29.9-35.2 [facility] Comment on above: Performed By: #### C BC #### [facility] [address] [address] [address] Андрей Toledo MCV (RBC) [Entitic vol] 94.3 fL Critically high 80.0-94.0 [facility] Comment on above: Performed By: #### C BC #### [facility] [address] [address] [address] Андрей Toledo MONO # 0.9 103/ul Critically high 0.3-0.8 [facility] Comment on above: Performed By: #### C BC #### [facility] [address] [address] [address] Андрей Toledo Monocytes/100 WBC (Bld) 15.5 % Critically high 1.7-12.0 [facility] Comment on above: Performed By: #### C BC #### [facility] [address] [address] [address] Андрей Toledo NEUT # 3.4 103/ul Normal 1.4-6.5 [facility] Comment on above: Performed By: #### C BC #### [facility] [address] [address] [address] Андрей Toledo Neutrophils/100 WBC (Bld) 57.4 % Normal 43.0-75.0 [facility] Comment on above: Performed By: #### C BC #### [facility] [address] [address] [address] Андрей Toledo Platelet mean volume (Bld) [Entitic vol] 8.5 fL Critically low 9.5-13.5 [facility] Comment on above: Performed By: #### C BC #### [facility] [address] [address] [address] Андрей Toledo PLT 149 103/ul Critically low 150-450 [facility] Comment on above: Performed By: #### C BC #### [facility] [address] [address] [address] Андрей Toledo RBC 4.07 106/ul Critically low 4.70-6.10 [facility] Comment on above: Performed By: #### C BC #### [facility] [address] [place], [place] [address] Dr. Андрей Toledo WBC 6.0 103/ul Normal 4.0-11.0 [facility] Comment on above: Performed By: #### C BC #### [facility] [address] [address] [address] Андрей Toledo CBC WITH AUTO DIFFERENTIALon 01-09-2023 Basophils (Bld) [#/Vol] 0.06 10*3/uL Normal 0.00-0.20 [facility] Comment on above: Performed By: #### L [id number] ####[facility] ([facility])[address] [place] [address] Basophils/100 WBC (Bld) 1.0 % Normal 0.0-1.0 [facility] Comment on above: Performed By: #### L [id number] ####[facility] ([facility])[address] [place] [address] Eosinophils (Bld) [#/Vol] 0.10 10*3/uL Normal 0.00-0.50 [facility] Comment on above: Performed By: #### L [id number] ####[facility] ([facility])[address] [place] [address] Eosinophils/100 WBC (Bld) 1.7 % Normal 0.0-6.0 [facility] Comment on above: Performed By: #### L [id number] ####[facility] ([facility]ER)[address] [place] [address] Erythrocyte distribution width (RBC) [Ratio] 13.2 % Normal 11.5-15.0 [facility] Comment on above: Performed By: #### L [id number] ####[facility] (BEAKER)[address] [place] [address] ERYTHROCYTE MEAN CORPUSCULAR HEMOGLOBIN CONCENTRATION (G/DL) BY AUTOMATED 34.2 g/dL Normal 32.0-35.0 [facility] Comment on above: Performed By: #### L [id number] ####[facility] ([facility])[address] [place] [address] Hematocrit (Bld) [Volume fraction] 43.6 % Normal 39.0-55.0 [facility] Comment on above: Performed By: #### L [id number] ####[facility] (BE[facility]ER)[address] [place] [address] Hemoglobin (Bld) [Mass/Vol] 14.9 g/dL Normal 13.0-17.0 [facility] Comment on above: Performed By: #### L [id number] ####[facility] ([facility])[address] [place] [address] Immature granulocytes (Bld) [#/Vol] 0.04 10*3/uL Normal 0.00-0.20 [facility] Comment on above: Performed By: #### L [id number] ####[facility] ([facility]ER)[address] [place] [address] Immature granulocytes/100 WBC (Bld) 0.7 % Normal 0.0-1.0 [facility] Comment on above: Performed By: #### L [id number] ####[facility] ([facility])[address] [place] [address] Lymphocytes (Bld) [#/Vol] 1.30 10*3/uL Normal 1.20-4.00 [facility] Comment on above: Performed By: #### L [id number] ####[facility] ([facility])[address] [place] [address] Lymphocytes/100 WBC (Bld) 21.6 % Normal 20.0-45.0 [facility] Comment on above: Performed By: #### L [id number] ####[facility] ([facility]ER)[address] [place] [address] MCH (RBC) [Entitic mass] 31.8 pg Normal 27.0-33.0 [facility] Comment on above: Performed By: #### L [id number] ####[facility] ([facility]ER)[address] [place] [address] MCV (RBC) [Entitic vol] 93.2 fL Normal 82.0-98.0 [facility] Comment on above: Performed By: #### L [id number] ####[facility] (BE[facility]ER)[address] [place] [address] Monocytes (Bld) [#/Vol] 0.81 10*3/uL Normal 0.10-1.00 [facility] Comment on above: Performed By: #### L [id number] ####[facility] [place] [address] Monocytes/100 WBC (Bld) 13.4 % High 5.0-12.0 [facility] Comment on above: Performed By: #### L [id number] ####[facility] (BE[facility]ER)[address] [place] [address] Neutrophils (Bld) [#/Vol] 3.72 10*3/uL Normal 1.60-7.60 [facility] Comment on above: Performed By: #### L [id number] ####[facility] ([facility])[address] [place] [address] Neutrophils/100 WBC (Bld) 61.6 % Normal 40.0-72.0 [facility] Comment on above: Performed By: #### L [id number] ####[facility] ([facility]AKER)[address] [place] [address] NRBC (PER 100 WBCS) BY AUTOMATED COUNT 0.0 % Normal 0 [facility] Comment on above: Performed By: #### L [id number] ####[facility] (BE[facility]ER)[address] [place] [address] PLATELETS (10*3/UL) IN BLOOD AUTOMATED COUNT 172 10*3/uL Normal 150-400 [facility] Comment on above: Performed By: #### L [id number] ####[facility] (BE[facility]ER)[address] [place] [address] RBC (Bld) [#/Vol] 4.68 10*6/uL Normal 4.20-5.70 [facility] Comment on above: Performed By: #### L [id number] ####[facility] ([facility])[address] [place] [address] WBC (Bld) [#/Vol] 6.03 10*3/uL Normal 4.00-10.60 [facility] Comment on above: Performed By: #### L [id number] ####[facility] ([facility])[address] [place] [address] COMPREHENSIVE METABOLIC PANE Kevin 01-09-2023 Albumin [Mass/Vol] 4.2 g/dL Normal 3.5-5.7 [facility] Comment on above: Performed By: #### L [id number] ####[facility] ([facility])[address] [place] [address] ALP [Catalytic activity/Vol] 88 U/L Normal 34-104 [facility] Comment on above: Performed By: #### L [id number] ####[facility] ([facility])[address] [place] [address] ALT [Catalytic activity/Vol] 22 U/L Normal 7-52 [facility] Comment on above: Performed By: #### L [id number] ####[facility] ([facility])[address] [place] [address] Anion gap [Moles/Vol] 12 mmol/L Normal 7-20 [facility] Comment on above: Performed By: #### L [id number] ####[facility] ([facility])[address] [place] [address] AST [Catalytic activity/Vol] 16 U/L Normal 13-39 [facility] Comment on above: Performed By: #### L [id number] ####[facility] ([facility])[address] [place] [address] Bilirubin [Mass/Vol] 0.5 mg/dL Normal 0.3-1.0 [facility] Comment on above: Performed By: #### L [id number] ####[facility] ([facility])[address] [place] [address] Calcium [Mass/Vol] 8.7 mg/dL Normal 8.6-10.3 [facility] Comment on above: Performed By: #### L [id number] ####[facility] ([facility])[address] [place] [address] Chloride [Moles/Vol] 102 mmol/L Normal 98-107 [facility] Comment on above: Performed By: #### L [id number] ####[facility] ([facility])[address] [place] [address] CO2 [Moles/Vol] 27 mmol/L Normal 21-31 [facility] Comment on above: Performed By: #### L [id number] ####[facility] ([facility])[address] [place] [address] Creatinine [Mass/Vol] 1.16 mg/dL Normal 0.70-1.30 [facility] Comment on above: Performed By: #### L [id number] ####[facility] ([facility])[address] [place] [address] GLOMERULAR FILTRATION RATE ML/MIN/1.73 SQ M.PREDICTED 63.3 mL/min/1.73m*2 Normal >60.0 [facility] Comment on above: Result Comment: The [facility]???s estimated glomerular filtration rate (eGFR) will no longer include consideration of race in its calculation. The National Kid[employer]???s eGFR Task Force developed new recommendations for the estimation of the glomerular filtration rate in the [place] They recommend immediate implementation of the new equation refit without the race variable in all laboratories because the calculation does not include race. In addition to not including race in the calculation and reporting, it included diversity in its development, and has acceptable performance characteristics and potential consequences that do not disproportionately affect any one group of individuals. Performed By: #### L [id number] ####[facility] ([facility])[address] [place] [address] Glucose [Mass/Vol] 202 mg/dL High 70-100 [facility] Comment on above: Performed By: #### L [id number] ####[facility] ([facility]AKER)[address] [place] [address] Potassium [Moles/Vol] 3.8 mmol/L Normal 3.5-5.1 [facility] Comment on above: Performed By: #### L [id number] ####[facility] ([facility] [place] [address] Protein [Mass/Vol] 6.6 g/dL Normal 6.0-8.3 [facility] Comment on above: Performed By: #### L [id number] ####[facility] ([facility])[address] [place] [address] Sodium [Moles/Vol] 137 mmol/L Normal 136-145 [facility] Comment on above: Performed By: #### L [id number] ####[facility] ([facility])[address] [place] [address] Urea nitrogen [Mass/Vol] 18 mg/dL Normal 7-25 [facility] Comment on above: Performed By: #### L [id number] ####[facility] ([facility])[address] [place] [address] UREA NITROGEN/CREATININ E (MASS RATIO) IN SER/PLAS 15.[address] [facility] Comment on above: Performed By: #### L [id number] ####[facility] ([facility])[address] [place] [address] HEMOGLOBIN A1Con 01-09-2023 Glucose [Mass/Vol] 148 mg/dL Normal [facility] Comment on above: Performed By: #### L [id number] ####[facility] ([facility])[address] [place] [address] HbA1c (Bld) [Mass fraction] 6.8 % High 4.0-6.0 [facility] Comment on above: Performed By: #### L [id number] ####[facility] ([facility])[address] [place] [address] HEPARIN LEVELon 01-09-2023 HEPARIN UNFRACTIONATED (U/ML) IN PPP BY CHROMOGENIC METHOD <0.10 Invalid Interpretation Code 0.3-0.7 [facility] Comment on above: Order Comment: Check anti-Xa level every 6 hours while on heparin infusion, or per protocol. Result Comment: Jessica roxaban and Apixaban will interfere with the anti Xa assay used to monitor UFH and LMWH. Performed By: #### L [id number] ####[facility] (BEAKER)[address] [place] [address] HPon 01-09-2023 HP [facility] NURSNOTEon 01-09-2023 NURSNOTE Report called to Patti TAM. She denies questions or concerns. [facility] POCT GLUCOSE METER UNSOLICIT ED RESULTSon 01-09-2023 Glucose [Mass/Vol] 182 mg/dL High 70-105 [facility] Comment on above: Result Comment: nngw a Performed By: #### L [id number] ####[facility] (BEAKER)[address] [place] [address] PROF 14(COMP METB)on 023 Albumin [Mass/Vol] 2.9 g/dL Critically low 3.4-5.0 [facility] Comment on above: Performed By: #### C BC #### [facility] [address] [place] [address] Dr. Андрей Toledo Albumin/Globulin [Mass ratio] 0.9 {ratio} Normal [facility] Comment on above: Performed By: #### C BC #### [facility] [address] [address] [address] Андрей Toledo ALP [Catalytic activity/Vol] 93 U/L Normal 46-116 [facility] Comment on above: Performed By: #### C BC #### [facility] [address] [place] [address] Dr. Андрей Toledo ALT [Catalytic activity/Vol] 28 U/L Normal 16-63 [facility] Comment on above: Performed By: #### C BC #### [facility] [address] [address] [address] Андрей Toledo Anion gap [Moles/Vol] 14.9 mmol/L Normal [facility] Comment on above: Performed By: #### C BC #### [facility] [address] [place] [address] Dr. Андрей Toledo AST [Catalytic activity/Vol] 17 U/L Normal 15-37 [facility] Comment on above: Performed By: #### C BC #### [facility] [address] [place] [address] Dr. Андрей Toledo Bilirubin [Mass/Vol] 0.3 mg/dL Normal 0.2-1.0 [facility] Comment on above: Performed By: #### C BC #### [facility] [address] [place] [address] Dr. Андрей Toledo Calcium [Mass/Vol] 8.4 mg/dL Critically low 8.5-10.1 [facility] Comment on above: Performed By: #### C BC #### [facility] [address] [place] [address] Dr. Андрей Toledo Chloride [Moles/Vol] 106 mmol/L Normal 98-107 [facility] Comment on above: Performed By: #### C BC #### [facility] [address] [place] [address] Dr. Андрей Toledo CO2 [Moles/Vol] 26.5 mmol/L Normal 21.0-32.0 [facility] Comment on above: Performed By: #### C BC #### [facility] [address] [place] [address] Dr. Андрей Toledo Creatinine [Mass/Vol] 1.02 mg/dL Normal 0.70-1.30 [facility] Comment on above: Performed By: #### C BC #### [facility] [address] [place] [address] Dr. Андрей Toledo EGFR-AF GUATEMALAN >60 Normal >=60 [facility] Comment on above: Performed By: #### C BC #### [facility] [address] [place] [address] Dr. Андрей Toledo EGFR-NON AF GUATEMALAN >60 Normal >=60 [facility] Comment on above: Performed By: #### C BC #### [facility] [address] [address] [address] Андрей Toledo Globulin (S) [Mass/Vol] 3.1 g/dL Normal [facility] Comment on above: Performed By: #### C BC #### [facility] [address] [address] [address] Андрей Toledo Glucose [Mass/Vol] 221 mg/dL Critically high 74-106 [facility] Comment on above: Performed By: #### C BC #### [facility] [address] [address] [address] Андрей Toledo Potassium [Moles/Vol] 4.4 mmol/L Normal 3.5-5.1 [facility] Comment on above: Performed By: #### C BC #### [facility] [address] [place] [address] Dr. Андрей Toledo Protein [Mass/Vol] 6.0 g/dL Critically low 6.4-8.2 Th [facility] Comment on above: Performed By: #### C BC #### [facility] [address] [place] [address] Dr. Андрей Toledo Sodium [Moles/Vol] 143 mmol/L Normal 136-145 [facility] Comment on above: Performed By: #### C BC #### [facility] [address] [address] [address] Андрей Toledo Urea nitrogen [Mass/Vol] 20.0 mg/dL Critically high 7.0-18.0 [facility] Comment on above: Performed By: #### C BC #### [facility] [address] [address] [address] Андрей Toledo Urea nitrogen/Creatinin e [Mass ratio] 19.6 mg/mg [facility] Comment on above: Performed By: #### C BC #### [facility] [address] [place] [address] Dr. Андрей Toledo PTT HEPARIN MONITORon 2022 aPTT Coag (Bld) [Time] 46.9 s Normal 39.5-54.2 [facility] Comment on above: Performed By: #### P TT, PT #### [facility] [address] [place] [address] Dr. Андрей Toledo TROPONIN Ion 01-09-2023 Troponin I.cardiac [Mass/Vol] 0.01 ng/mL Normal 0.00-0.04 [facility] Comment on above: Performed By: #### L [id number] ####[facility] (BEAKER)[address] [place] [address] BNPon 01-08-2023 Natriuretic peptide B (Bld) [Mass/Vol] 192.0 pg/mL Normal <=1,800.0 [facility] Comment on above: Performed By: #### H STROPN, BNP, CMP #### [facility] [address] [place] [address] Dr. Андрей Toledo CARDIAC BEAU 3-6on 3 CK [Catalytic activity/Vol] 102 U/L Normal 39-308 [facility] Comment on above: Performed By: #### P TT, PT #### [facility] [address] [place] [address] Dr. Андрей Toledo CK.MB [Mass/Vol] 1.92 ng/mL Normal <=3.60 [facility] Comment on above: Performed By: #### P TT, PT #### [facility] [address] [place] [address] Dr. Андрей Toledo HSTROP 16.0 pg/mL Normal 4.0-76.1 [facility] Comment on above: Result Comment: CUT- OFF POINTS HAVE BEEN ESTABLISHED BASED ON THE FOURTH UNIVERSAL DEFINITIONS OF MYOCARDIAL INFARCTION. THE UPPER REFERENCE LIMIT (URL) OF TROPONIN, DEFINED THE 99TH PERCENTILE OF cTnI DISTRIBUTION IN A REFERENCE POPULATION, HAS BEEN CONFIRMED THE DECISION THRESHOLD FOR [place] DIAGNOSIS. Performed By: #### P TT, PT #### [facility] [address] [place] [address] Dr. Андрей Toledo CK [Catalytic activity/Vol] 66 U/L Normal 39-308 [facility] Comment on above: Performed By: #### C MREP #### [facility] [address] [place] [address] Dr. Андрей Toledo CK.MB [Mass/Vol] 2.12 ng/mL Normal <=3.60 [facility] Comment on above: Performed By: #### C MREP #### [facility] [address] [place] [address] Dr. Андрей Toledo HSTROP 20.1 pg/mL Normal 4.0-76.1 [facility] Comment on above: Result Comment: CUT- OFF POINTS HAVE BEEN ESTABLISHED BASED ON THE FOURTH UNIVERSAL DEFINITIONS OF MYOCARDIAL INFARCTION. THE UPPER REFERENCE LIMIT (URL) OF TROPONIN, DEFINED THE 99TH PERCENTILE OF cTnI DISTRIBUTION IN A REFERENCE POPULATION, HAS BEEN CONFIRMED THE DECISION THRESHOLD FOR [place] DIAGNOSIS. Performed By: #### C MREP #### [facility] [address] [place] [address] Dr. Андрей Toledo CBC AUTO DIFFon 01-08-2023 EO # 0.1 103/ul Normal 0.0-0.7 [facility] Comment on above: Performed By: #### C BC #### [facility] [address] [place] [address] Dr. Андрей Toledo Eosinophils/100 WBC (Bld) 1.9 % Normal 0.9-7.0 [facility] Comment on above: Performed By: #### C BC #### [facility] [address] [place] [address] Dr. Андрей Toledo Erythrocyte distribution width (RBC) [Ratio] 13.1 % Normal 11.0-15.0 [facility] Comment on above: Performed By: #### C BC #### [facility] [address] [place] [address] Dr. Андрей Toledo Hematocrit (Bld) [Volume fraction] 38.8 % Critically low 42.0-54.0 [facility] Comment on above: Performed By: #### C BC #### [facility] [address] [place] [address] Dr. Андрей Toledo Hemoglobin (Bld) [Mass/Vol] 13.0 g/dL Critically low 14.0-18.0 [facility] Comment on above: Performed By: #### C BC #### [facility] [address] [address] [address] Андрей Toledo IG # 0.05 10e3/ul Critically high 0.00-0.03 [facility] Comment on above: Performed By: #### C BC #### [facility] [address] [address] [address] Андрей Toledo IG % 0.7 % Critically high 0.0-0.5 [facility] Comment on above: Performed By: #### C BC #### [facility] [address] [address] [address] Андрей Toledo Lymphocytes/100 WBC (Bld) 23.2 % Normal 20.5-60.0 [facility] Comment on above: Performed By: #### C BC #### [facility] [address] [address] [address] Андрей Toledo MCH (RBC) [Entitic mass] 31.9 pg Normal 25.9-34.0 [facility] Comment on above: Performed By: #### C BC #### [facility] [address] [address] [address] Андрей Toledo MCV (RBC) [Entitic vol] 95.1 fL Critically high 80.0-94.0 [facility] Comment on above: Performed By: #### C BC #### [facility] [address] [address] [address] Андрей Toledo MONO # 0.9 103/ul Critically high 0.3-0.8 [facility] Comment on above: Performed By: #### C BC #### [facility] [address] [address] [address] Андрей Toledo Monocytes/100 WBC (Bld) 13.6 % Critically high 1.7-12.0 [facility] Comment on above: Performed By: #### C BC #### [facility] [address] [address] [address] Андрей Toledo NEUT # 4.1 103/ul Normal 1.4-6.5 [facility] Comment on above: Performed By: #### C BC #### [facility] [address] [place] [address] Dr. Андрей Toledo Neutrophils/100 WBC (Bld) 60.0 % Normal 43.0-75.0 [facility] Comment on above: Performed By: #### C BC #### [facility] [address] [place] [address] Dr. Андрей Toledo Platelet mean volume (Bld) [Entitic vol] 8.6 fL Critically low 9.5-13.5 [facility] Comment on above: Performed By: #### C BC #### [facility] [address] [address] [address] Андрей Toledo PLT 153 103/ul Normal 150-450 [facility] Comment on above: Performed By: #### C BC #### [facility] [address] [place] [address] Dr. Андрей Toledo RBC 4.08 106/ul Critically low 4.70-6.10 [facility] Comment on above: Performed By: #### C BC #### [facility] [address] [place] [address] Dr. Андрей Toledo BASO # 0.0 103/ul Normal 0.0-0.1 [facility] Comment on above: Performed By: #### C BC #### [facility] [address] [place] [address] Dr. Андрей Toledo Basophils/100 WBC (Bld) 0.6 % Normal 0.2-2.0 [facility] Comment on above: Performed By: #### C BC #### [facility] [address] [place] [address] Dr. Андрей Toledo EO # 0.2 103/ul Normal 0.0-0.7 [facility] Comment on above: Performed By: #### C BC #### [facility] [address] [place] [address] Dr. Андрей Toledo Eosinophils/100 WBC (Bld) 2.6 % Normal 0.9-7.0 [facility] Comment on above: Performed By: #### C BC #### [facility] [address] [place] [address] Dr. Андрей Toledo Erythrocyte distribution width (RBC) [Ratio] 12.9 % Normal 11.0-15.0 [facility] Comment on above: Performed By: #### C BC #### [facility] [address] [place] [address] Dr. Андрей Toledo Hematocrit (Bld) [Volume fraction] 37.9 % Critically low 42.0-54.0 [facility] Comment on above: Performed By: #### C BC #### [facility] [address] [place] [address] Dr. Андрей Toledo Hemoglobin (Bld) [Mass/Vol] 12.7 g/dL Critically low 14.0-18.0 [facility] Comment on above: Performed By: #### C BC #### [facility] [address] [place] [address] Dr. Андрей Toledo IG # 0.03 10e3/ul Normal 0.00-0.03 [facility] Comment on above: Performed By: #### C BC #### [facility] [address] [place] [address] Dr. Андрей Toledo IG % 0.4 % Normal 0.0-0.5 [facility] Comment on above: Performed By: #### C BC #### [facility] [address] [place] [address] Dr. Андрей Toledo LYMPH # 1.6 103/ul Normal 1.2-3.8 [facility] Comment on above: Performed By: #### C BC #### [facility] [address] [place] [address] Dr. Андрей Toledo Lymphocytes/100 WBC (Bld) 23.5 % Normal 20.5-60.0 [facility] Comment on above: Performed By: #### C BC #### [facility] [address] [place] [address] Dr. Андрей Toledo MANUAL DIFF REQ NO Normal [facility] Comment on above: Performed By: #### C BC #### [facility] [address] [place], [place] [id number] Dr. Андрей Toledo MCH (RBC) [Entitic mass] 31.8 pg Normal 25.9-34.0 [facility] Comment on above: Performed By: #### C BC #### [facility] [address] [place] [address] Dr. Андрей Toledo MCHC (RBC) [Mass/Vol] 33.5 g/dL Normal 29.9-35.2 [facility] Comment on above: Performed By: #### C BC #### [facility] [address] [place] [address] Dr. Андрей Toledo MCV (RBC) [Entitic vol] 95.0 fL Critically high 80.0-94.0 [facility] Comment on above: Performed By: #### C BC #### [facility] [address] [place] [address] Dr. Андрей Toledo MONO # 1.0 103/ul Critically high 0.3-0.8 [facility] Comment on above: Performed By: #### C BC #### [facility] [address] [place] [address] Dr. Андрей Toledo Monocytes/100 WBC (Bld) 14.8 % Critically high 1.7-12.0 [facility] Comment on above: Performed By: #### C BC #### [facility] [address] [place] [address] Dr. Андрей Toledo NEUT # 4.0 103/ul Normal 1.4-6.5 [facility] Comment on above: Performed By: #### C BC #### [facility] [address] [place] [address] Dr. Андрей Toledo Neutrophils/100 WBC (Bld) 58.1 % Normal 43.0-75.0 [facility] Comment on above: Performed By: #### C BC #### [facility] [address] [place] [address] Dr. Андрей Toledo Platelet mean volume (Bld) [Entitic vol] 8.3 fL Critically low 9.5-13.5 [facility] Comment on above: Performed By: #### C BC #### [facility] [address] [address] [address] Андрей Toledo PLT 145 103/ul Critically low 150-450 [facility] Comment on above: Performed By: #### C BC #### [facility] [address] [place] [address] Dr. Андрей Toledo RBC 3.99 106/ul Critically low 4.70-6.10 [facility] Comment on above: Performed By: #### C BC #### [facility] [id number] Андрей Toledo WBC 6.8 103/ul Normal 4.0-11.0 [facility] Comment on above: Performed By: #### C BC #### [facility] [address] [place] [address] Dr. Андрей Toledo Covid-19 PCR (CVDTBH)on 12-25 SARS-CoV-2 (COVID-19) RNA CLAUDIA+probe Ql (Unsp spec) Not detected Normal NOT DETECTED [facility] Comment on above: Result Comment: THIS TEST IS NOT APPROVED BY THE FDA. IT HAS BEEN AUTHORIZED FOR USE UNDER AN EMERGENCY USE AUTHORIZATION. Performed By: #### C VDTBH #### [facility] [address] [place] [address] Dr. Андрей Toledo LIPID PROFILEon 01-08-2023 CHOL-HDL RATIO NORM SEE BELOW Normal [facility] Comment on above: Result Comment: 3.3 - 4.4 LOW RISK 4.4 - 7.1 AVERAGE RISK 7.1 - 11.0 MODERATE RISK >11.0 HIGH RISK Performed By: #### C BC #### [facility] [address] [place] [address] Dr. Андрей Toledo Cholesterol [Mass/Vol] 183 mg/dL Normal <=200 [facility] Comment on above: Performed By: #### C BC #### [facility] [address] [place] [address] Dr. Андрей Toledo Cholesterol in HDL [Mass/Vol] 33 mg/dL Critically low 40-60 [facility] Comment on above: Performed By: #### C BC #### [facility] [address] [address] [address] Андрей Toledo Cholesterol in LDL [Mass/Vol] 90.8 mg/dL Normal [facility] Comment on above: Performed By: #### C BC #### [facility] [address] [place] [address] Dr. Андрей Toledo Cholesterol.total/ Cholesterol in HDL [Mass ratio] 5.5 {ratio} Normal [facility] Comment on above: Performed By: #### C BC #### [facility] [address] [place] [address] Dr. Андрей Toledo HDL NORMAL > or = 60 mg/dl - LO W CARDIOVASCULAR RISK <40 mg/dl - HIGH CARDIOVASCULAR RISK Normal [facility] Comment on above: Performed By: #### C BC #### [facility] [address] [place] [address] Dr. Андрей Toledo LDL CALC NORMAL SEE BELOW Normal [facility] Comment on above: Result Comment: <100 mg/dl OPTIMAL 100 - 129 mg/dl NEAR OR ABOVE OPTIMAL 130 - 159 mg/dl BORDERLINE HIGH 160 - 189 mg/dl HIGH >190 mg/dl VERY HIGH Performed By: #### C BC #### [facility] [address] [place] [address] Dr. Андрей Toledo Triglyceride [Mass/Vol] 296 mg/dL Critically high <=150 [facility] Comment on above: Performed By: #### C BC #### [facility] [address] [place] [address] Dr. Андрей Toledo VLDL CALC 59.2 mg/dL Normal [facility] Comment on above: Performed By: #### C BC #### [facility] [address] [place] [address] Dr. Андрей Toledo POINT OF CARE GLUCOSEon 12-25 Glucose [Mass/Vol] 160 mg/dL Critically high 74-106 [facility] Comment on above: Performed By: #### C BC #### [facility] [address] [place] [address] Dr. Андрей Toledo PROF 14(COMP METB)on 023 Albumin [Mass/Vol] 3.0 g/dL Critically low 3.4-5.0 [facility] Comment on above: Performed By: #### H STROPN, BNP, CMP #### [facility] [address] [address] [address] Андрей Toledo Albumin/Globulin [Mass ratio] 0.9 {ratio} Normal [facility] Comment on above: Performed By: #### H STROPN, BNP, CMP #### [facility] [address] [address] [address] Андрей Toledo ALP [Catalytic activity/Vol] 95 U/L Normal 46-116 [facility] Comment on above: Performed By: #### H STROPN, BNP, CMP #### [facility] [address] [place] [address] Dr. Андрей Toledo ALT [Catalytic activity/Vol] 24 U/L Normal 16-63 [facility] Comment on above: Performed By: #### H STROPN, BNP, CMP #### [facility] [address] [address] [address] Андрей Toledo Anion gap [Moles/Vol] 12.8 mmol/L Normal [facility] Comment on above: Performed By: #### H STROPN, BNP, CMP #### [facility] [address] [place] [address] Dr. Андрей Toledo AST [Catalytic activity/Vol] 12 U/L Critically low 15-37 [facility] Comment on above: Performed By: #### H STROPN, BNP, CMP #### [facility] [address] [address] [address] Андрей Toledo Bilirubin [Mass/Vol] 0.5 mg/dL Normal 0.2-1.0 [facility] Comment on above: Performed By: #### H STROPN, BNP, CMP #### [facility] [address] [address] [address] Андрей Toledo Calcium [Mass/Vol] 8.8 mg/dL Normal 8.5-10.1 [facility] Comment on above: Performed By: #### H STROPN, BNP, CMP #### [facility] [address] [address] [address] Андрей Toledo Chloride [Moles/Vol] 108 mmol/L Critically high 98-107 [facility] Comment on above: Performed By: #### H STROPN, BNP, CMP #### [facility] [address] [place] [address] Dr. Андрей Toledo CO2 [Moles/Vol] 29.2 mmol/L Normal 21.0-32.0 [facility] Comment on above: Performed By: #### H STROPN, BNP, CMP #### [facility] [address] [address] [address] Андрей Toledo Creatinine [Mass/Vol] 1.06 mg/dL Normal 0.70-1.30 [facility] Comment on above: Performed By: #### H STROPN, BNP, CMP #### [facility] [address] [place] [address] Dr. Андрей Toledo EGFR-AF GUATEMALAN >60 Normal >=60 [facility] Comment on above: Performed By: #### H STROPN, BNP, CMP #### [facility] [address] [place] [address] Dr. Андрей Toledo EGFR-NON AF GUATEMALAN >60 Normal >=60 [facility] Comment on above: Performed By: #### H STROPN, BNP, CMP #### [facility] [address] [place] [address] Dr. Андрей Toledo Globulin (S) [Mass/Vol] 3.3 g/dL Normal [facility] Comment on above: Performed By: #### H STROPN, BNP, CMP #### [facility] [address] [place] [address] Dr. Андрей Toledo Glucose [Mass/Vol] 155 mg/dL Critically high 74-106 [facility] Comment on above: Performed By: #### H STROPN, BNP, CMP #### [facility] [address] [place] [address] Dr. Андрей Toledo Potassium [Moles/Vol] 5.0 mmol/L Normal 3.5-5.1 [facility] Comment on above: Performed By: #### H STROPN, BNP, CMP #### [facility] [address] [place] [address] Dr. Андрей Toledo Protein [Mass/Vol] 6.3 g/dL Critically low 6.4-8.2 [facility] Comment on above: Performed By: #### H STROPN, BNP, CMP #### [facility] [address] [place] [address] Dr. Андрей Toledo Sodium [Moles/Vol] 145 mmol/L Normal 136-145 [facility] Comment on above: Performed By: #### H STROPN, BNP, CMP #### [facility] [address] [place] [address] Dr. Андрей Toledo Urea nitrogen [Mass/Vol] 25.0 mg/dL Critically high 7.0-18.0 [facility] Comment on above: Performed By: #### H STROPN, BNP, CMP #### [facility] [address] [place] [address] Dr. Андрей Toledo Urea nitrogen/Creatinin e [Mass ratio] 23.6 mg/mg Normal [facility] Comment on above: Performed By: #### H STROPN, BNP, CMP #### [facility] [address] [place] [address] Dr. Андрей Toledo PROTIMEon 01-08-2023 INR Coag (PPP) [Relative time] 0.94 {INR} Normal [facility] Comment on above: Performed By: #### P TT, PT #### [facility] [address] [place] [address] Dr. Андрей Toledo INR GUIDELINES SEE BELOW Normal [facility] Comment on above: Result Comment: CAMMIE RED INR: 2.0 - 3.0 CONDITIONS NOT LISTED BELOW 2.5 - 3.5 FOR PROSTHETIC HEART VALVE REPLACEMENT 2.5 - 3.5 RECURRENT THROMBOSIS Performed By: #### P TT, PT #### [facility] [address] [place] [address] Dr. Андрей Toledo PT Coag (PPP) [Time] 10.0 s Normal 9.0-11.6 [facility] Comment on above: Performed By: #### P TT, PT #### [facility] [address] [place] [address] Dr. Андрей Toledo PTTon 01-08-2023 aPTT Coag (Bld) [Time] 27.5 s Normal 22.3-36.2 [facility] Comment on above: Performed By: #### P TT, PT #### [facility] [address] [place] [address] Dr. Андрей Toledo SYMPTOMATIC COVID-19 ANTIGEN on 01-08-2023 EUA Statement SEE BELOW Normal [facility] Comment on above: Result Comment: This test has not been FDA cleared or approved, but has been authorized by the FDA under an Emergency Use Authorization (EUA) for use by authorized laboratories certified under CLIA that meet the requirements to perform moderate or high complexity testing. This test has been authorized only for the detection of proteins from SARS-CoV-2, not for any other viruses or pathogens. The emergency use of this test is authorized for the duration of the declaration that circumstances exist justifying the authorization of emergency use of in vitro diagnostic tests for detection and/or diagnosis of Covid-19 under section 564(b)(1) of the Act, 21 U.S.C. 360bbb-3(b)(1), unless the declaration is terminated or authorization is revoked sooner. Performed By: #### P TT, PT #### [facility] [address] [place] [address] Dr. Андрей Toledo SARS-CoV-2 (COVID-19) RNA CLAUDIA+probe Ql (Unsp spec) Negative Normal NEGATIVE [facility] Comment on above: Performed By: #### P TT, PT #### [facility] [address] [place] [address] Dr. Андрей Toledo T4on 01-08-2023 T4 [Mass/Vol] 6.20 ug/dL Normal 4.50-12.10 [facility] Comment on above: Performed By: #### P TT, PT #### [facility] [address] [place] [address] Dr. Андрйе Toledo TROPONIN, HIGH SENSITIVITYon 01-08-2023 HSTROP 28.8 pg/mL Normal 4.0-76.1 [facility] Comment on above: Result Comment: CUT- OFF POINTS HAVE BEEN ESTABLISHED BASED ON THE FOURTH UNIVERSAL DEFINITIONS OF MYOCARDIAL INFARCTION. THE UPPER REFERENCE LIMIT (URL) OF TROPONIN, DEFINED THE 99TH PERCENTILE OF cTnI DISTRIBUTION IN A REFERENCE POPULATION, HAS BEEN CONFIRMED THE DECISION THRESHOLD FOR [place] DIAGNOSIS. Performed By: #### H STROPN, BNP, CMP #### [facility] [address] [address] [address] Андрей Toledo TSHon 01-08-2023 TSH 2.888 uIU/mL Normal 0.358-3.740 [facility] Comment on above: Performed By: #### C BC #### [facility] [address] [place] [address] Dr. Андрей Toledo XR CHEST 1 Von 01-08-2023 XR CHEST 1 V EXAMINATION: XR CHES T 1 V, 01/08/2023 10:39 AM EDT HISTORY: CHEST PAIN, UNSPECIFIED COMPARISON: None. TECHNIQUE: AP portable view of the chest performed. FINDINGS: Medical devices: None. Cardiomediastinal silhouette is likely enlarged, noting accentuation by AP technique. The lungs are clear. No large pleural effusion, or pneumothorax. IMPRESSION: 1. No acute cardiopulmonary abnormality. Electronically authenticated by: TIFFANY TORO Date: 2023-01-08 11:22 Normal [facility] T4 LABCORPon 02-02-2022 T4 [Mass/Vol] 7.5 ug/dL Normal 4.5-12.0 [facility] Comment on above: Performed By: #### T 4LC #### [facility] [address] [place] [address] Dr. Андрей Toledo BNPon 02-01-2022 Natriuretic peptide B (Bld) [Mass/Vol] 26.0 pg/mL Normal <=1,800.0 [facility] Comment on above: Performed By: #### P TT, PT #### [facility] [address] [place] [address] Dr. Андрей Toledo CBC AUTO DIFFon 02-01-2022 BASO # 0.1 103/ul Normal 0.0-0.1 [facility] Comment on above: Performed By: #### P TT, PT #### [facility] [address] [place] [address] Dr. Андрей Toledo Basophils/100 WBC (Bld) 0.6 % Normal 0.2-2.0 [facility] Comment on above: Performed By: #### P TT, PT #### [facility] [address] [place] [address] Dr. Андрей Toledo EO # 0.2 103/ul Normal 0.0-0.7 [facility] Comment on above: Performed By: #### P TT, PT #### [facility] [address] [place] [address] Dr. Андрей Toledo Eosinophils/100 WBC (Bld) 1.9 % Normal 0.9-7.0 [facility] Comment on above: Performed By: #### P TT, PT #### [facility] [address] [place] [address] Dr. Андрей Toledo Erythrocyte distribution width (RBC) [Ratio] 13.2 % Normal 11.0-15.0 [facility] Comment on above: Performed By: #### P TT, PT #### [facility] [address] [place] [address] Dr. Андрей Toledo Hematocrit (Bld) [Volume fraction] 42.7 % Normal 42.0-54.0 [facility] Comment on above: Performed By: #### P TT, PT #### [facility] [address] [place] [address] Dr. Андрей Toledo Hemoglobin (Bld) [Mass/Vol] 14.2 g/dL Normal 14.0-18.0 [facility] Comment on above: Performed By: #### P TT, PT #### [facility] [address] [place] [address] Dr. Андрей Toledo IG # 0.11 10e3/ul Critically high 0.00-0.03 [facility] Comment on above: Performed By: #### P TT, PT #### [facility] [address] [place] [address] Dr. Андрей Toledo IG % 1.4 % Critically high 0.0-0.5 [facility] Comment on above: Performed By: #### P TT, PT #### [facility] [address] [address] [address] Андрей Toledo LYMPH # 1.6 103/ul Normal 1.2-3.8 [facility] Comment on above: Performed By: #### P TT, PT #### [facility] [address] [address] [address] Андрей Toledo Lymphocytes/100 WBC (Bld) 20.0 % Critically low 20.5-60.0 [facility] Comment on above: Performed By: #### P TT, PT #### [facility] [address] [place] [address] Dr. Андрей Toledo MANUAL DIFF REQ NO Normal [facility] Comment on above: Performed By: #### P TT, PT #### [facility] [address] [place] [address] Dr. Андрей Toledo MCH (RBC) [Entitic mass] 30.5 pg Normal 25.9-34.0 [facility] Comment on above: Performed By: #### P TT, PT #### [facility] [address] [place] [address] Dr. Андрей Toledo MCHC (RBC) [Mass/Vol] 33.3 g/dL Normal 29.9-35.2 [facility] Comment on above: Performed By: #### P TT, PT #### [facility] [address] [place] [address] Dr. Андрей Toledo MCV (RBC) [Entitic vol] 91.8 fL Normal 80.0-94.0 [facility] Comment on above: Performed By: #### P TT, PT #### [facility] [address] [place] [address] Dr. Андрей Toledo MONO # 1.0 103/ul Critically high 0.3-0.8 [facility] Comment on above: Performed By: #### P TT, PT #### [facility] [address] [place] [address] Dr. Андрей Toledo Monocytes/100 WBC (Bld) 13.4 % Critically high 1.7-12.0 [facility] Comment on above: Performed By: #### P TT, PT #### [facility] [address] [place] [address] Dr. Андрей Toledo NEUT # 4.9 103/ul Normal 1.4-6.5 [facility] Comment on above: Performed By: #### P TT, PT #### [facility] [address] [place] [address] Dr. Андрей Toledo Neutrophils/100 WBC (Bld) 62.7 % Normal 43.0-75.0 [facility] Comment on above: Performed By: #### P TT, PT #### [facility] [address] [place] [address] Dr. Андрей Toledo Platelet mean volume (Bld) [Entitic vol] 8.8 fL Critically low 9.5-13.5 [facility] Comment on above: Performed By: #### P TT, PT #### [facility] [address] [place] [address] Dr. Андрей Toeldo PLT 235 103/ul Normal 150-450 [facility] Comment on above: Performed By: #### P TT, PT #### [facility] [address] [place] [address] Dr. Андрей Toledo RBC 4.65 106/ul Critically low 4.70-6.10 [facility] Comment on above: Performed By: #### P TT, PT #### [facility] [address] [place] [address] Dr. Андрей Toledo WBC 7.8 103/ul Normal 4.0-11.0 [facility] Comment on above: Performed By: #### P TT, PT #### [facility] [address] [place] [address] Dr. Андрей Toledo FREE THYROXINE INDEX T7on FTI 2.70 Normal 1.30-4.50 [facility] Comment on above: Performed By: #### P TT, PT #### [facility] [address] [place] [address] Dr. Андрей Toledo T3U 36.0 % Normal 33.0-40.0 [facility] Comment on above: Performed By: #### P TT, PT #### [facility] [address] [place] [address] Dr. Андрей Toledo T4 [Mass/Vol] 7.50 ug/dL Normal 4.50-12.10 [facility] Comment on above: Result Comment: T4 t esting performed by [facility] Performed By: #### P TT, PT #### [facility] [address] [place] [address] Dr. Андрей Toledo PROF 14(COMP METB)on 022 Albumin [Mass/Vol] 3.2 g/dL Critically low 3.4-5.0 [facility] Comment on above: Performed By: #### P TT, PT #### [facility] [address] [place] [address] Dr. Андрей Toledo Albumin/Globulin [Mass ratio] 0.8 {ratio} Normal [facility] Comment on above: Performed By: #### P TT, PT #### [facility] [address] [place] [address] Dr. Андрей Toledo ALP [Catalytic activity/Vol] 105 U/L Normal 46-116 [facility] Comment on above: Performed By: #### P TT, PT #### [facility] [address] [place] [address] Dr. Андрей Toledo ALT [Catalytic activity/Vol] 26 U/L Normal 16-63 [facility] Comment on above: Performed By: #### P TT, PT #### [facility] [address] [place] [address] Dr. Андрей Toledo Anion gap [Moles/Vol] 12.1 mmol/L Normal [facility] Comment on above: Performed By: #### P TT, PT #### [facility] [address] [place] [address] Dr. Андрей oTledo AST [Catalytic activity/Vol] 15 U/L Normal 15-37 [facility] Comment on above: Performed By: #### P TT, PT #### [facility] [address] [address] [address] Андрей Toledo Bilirubin [Mass/Vol] 0.4 mg/dL Normal 0.2-1.0 [facility] Comment on above: Performed By: #### P TT, PT #### [facility] [address] [place] [address] Dr. Андрей Toledo Calcium [Mass/Vol] 8.9 mg/dL Normal 8.5-10.1 [facility] Comment on above: Performed By: #### P TT, PT #### [facility] [address] [place] [address] Dr. Андрей Toledo Chloride [Moles/Vol] 103 mmol/L Normal 98-107 [facility] Comment on above: Performed By: #### P TT, PT #### [facility] [address] [place] [address] Dr. Андрей Toledo CO2 [Moles/Vol] 27.8 mmol/L Normal 21.0-32.0 [facility] Comment on above: Performed By: #### P TT, PT #### [facility] [address] [place] [address] Dr. Андрей Toledo Creatinine [Mass/Vol] 1.09 mg/dL Normal 0.70-1.30 [facility] Comment on above: Performed By: #### P TT, PT #### [facility] [address] [place] [address] Dr. Андрей Toledo EGFR-AF GUATEMALAN >60 Normal >=60 [facility] Comment on above: Performed By: #### P TT, PT #### [facility] [address] [place] [address] Dr. Андрей Toledo EGFR-NON AF GUATEMALAN >60 Normal >=60 [facility] Comment on above: Performed By: #### P TT, PT #### [facility] [address] [place] [address] Dr. Андрей Toledo Globulin (S) [Mass/Vol] 3.8 g/dL Normal [facility] Comment on above: Performed By: #### P TT, PT #### [facility] [address] [place] [address] Dr. Андрей Toledo Glucose [Mass/Vol] 206 mg/dL Critically high 74-106 [facility] Comment on above: Performed By: #### P TT, PT #### [facility] [address] [address] [address] Андрей Toledo Potassium [Moles/Vol] 4.9 mmol/L Normal 3.5-5.1 [facility] Comment on above: Performed By: #### P TT, PT #### [facility] [address] [address] [address] Андрей Toledo Protein [Mass/Vol] 7.0 g/dL Normal 6.4-8.2 [facility] Comment on above: Performed By: #### P TT, PT #### [facility] [address] [address] [address] Андрей Toledo Sodium [Moles/Vol] 138 mmol/L Normal 136-145 [facility] Comment on above: Performed By: #### P TT, PT #### [facility] [address] [address] [address] Андрей Toledo Urea nitrogen [Mass/Vol] 25.0 mg/dL Critically high 7.0-18.0 [facility] Comment on above: Performed By: #### P TT, PT #### [facility] [address] [address] [address] Андрей Toledo Urea nitrogen/Creatinin e [Mass ratio] 22.9 mg/mg Normal [facility] Comment on above: Performed By: #### P TT, PT #### [facility] [address] [address] [address] Андрей Toledo TSHon 02-01-2022 TSH 1.928 uIU/mL Normal 0.358-3.740 [facility] Comment on above: Performed By: #### P TT, PT #### [facility] [address] [address] [address] Андрей Toledo TSH RANGE SEE BELOW Normal [facility] Comment on above: Result Comment: <0.3 4 UIU/ml HYPERTHYROID 0.34-5.60 UIU/ml EUTHYROID >5.60 UIU/ml HYPOTHYROID Performed By: #### P TT, PT #### [facility] [address] [place] [address] Dr. Андрей Toledo Encounters Encounter Date Encounter Type Care Provider Facility Start: 10-03-2023 End: 10-03-2023 ambulatory [facility] Start: 03-28-2023 End: 03-28-2023 ambulatory [facility] Start: 02-15-2023 End: 02-16-2023 ambulatory [facility] Start: 02-15-2023 ambulatory [facility] Start: 01-29-2023 End: 01-29-2023 ambulatory [facility] Start: 01-23-2023 Evaluation and management of inpatient CAROL Billings [facility] Start: 01-22-2023 Evaluation and management of inpatient CAROL Billings [facility] Start: 01-21-2023 Evaluation and management of inpatient CAROL Billings [facility] Start: 01-20-2023 Evaluation and management of inpatient [facility] Start: 01-20-2023 Evaluation and management of inpatient CAROL Billings [facility] Start: 01-19-2023 Evaluation and management of inpatient CAROL Billings [facility] Start: 01-18-2023 Evaluation and management of inpatient CAROL Billings [facility] Start: 01-17-2023 Evaluation and management of inpatient [facility] Start: 01-17-2023 Evaluation and management of inpatient CAROL Billings [facility] Start: 01-16-2023 Evaluation and management of inpatient CAROL Billings [facility] Start: 01-16-2023 Evaluation and management of inpatient CAROL J [facility] Start: 01-15-2023 Evaluation and management of inpatient CAROL Billings [facility] Start: 01-15-2023 Evaluation and management of inpatient CAROL GIMENEZ [facility] Start: 01-11-2023 End: 01-12-2023 Evaluation and management of inpatient MATT GILMER [facility] Start: 01-10-2023 Evaluation and management of inpatient NORM MADDIE [facility] Start: 01-10-2023 Evaluation and management of inpatient NORM MADDIE [facility] Start: 01-09-2023 Evaluation and management of inpatient MARCIA BEDOLLA ROBYTALHA [facility] Start: 01-09-2023 Evaluation and management of inpatient DARIAN LAZCANO [facility] Start: 01-09-2023 End: 01-23-2023 Evaluation and management of inpatient FAUSTO BLACKMAN [facility] Start: 01-08-2023 End: 01-09-[address] FAUSTO BLACKMAN . Facility: Start: 02-01-2022 End: 02-02-[address] FAUSTO BLACKMAN . Facility: Procedures Date Procedure Procedure Detail Performing Clinician Start: 10-03-2023 Follow-up visit MATT DIAZ Start: 03-28-2023 Follow-up visit MATT DIAZ Start: 02-15-2023 Follow-up visit MATT DIAZ Start: 01-29-2023 Follow-up visit MATT DIAZ Payers Date Payer Category Payer Medicare [id number] 1958 Private Health Insurance [id number] 1940 Unknown [id number] 1940 Unknown [id number] Clinical Notes 01-10-2023 to 10-03-2023 Note Date & Type Note Facility 10-03-2023 Note [facility] 10-03-2023 Note [facility] 03-28-2023 Note [facility] 02-15-2023 Note [facility] 01-29-2023 Note [facility] 01-29-2023 Note [facility] 01-23-2023 Note [facility] 01-23-2023 Note [facility] 01-23-2023 Note [facility] 01-23-2023 Note [facility] 01-22-2023 Note SW received phone ca ll from [facility] neurological surgeon staff member stating that they could not accept pt until Sunday morning due to low staffing. SW to follow up in the morning. [facility] 01-22-2023 Note [facility] 01-21-2023 Note [facility] 01-21-2023 Note [facility] 01-20-2023 Note [facility] 01-20-2023 Note [facility] 01-20-2023 Note [facility] 01-19-2023 Note [facility] 01-19-2023 Note [facility] 01-19-2023 Note [facility] 01-19-2023 Note [facility] 01-19-2023 Note [facility] 01-18-2023 Note [facility] 01-18-2023 Note [facility] 01-18-2023 Note [facility] 01-18-2023 Note [facility] 01-17-2023 Note [facility] 01-17-2023 Note [facility] 01-17-2023 Note [facility] 01-17-2023 Note [facility] 01-17-2023 Note [facility] 01-16-2023 Note [facility] 01-16-2023 Note [facility] 01-16-2023 Note [facility] 01-15-2023 Note Peripheral IV Date/Time: 01/15/2023 7:45 AM Inserted by: William López MD Placement Needle size: 14 G Laterality: left Location: hand Local anesthetic: none Site prep: alcohol Technique: anatomical landmarks Attempts: 1 [facility] 01-15-2023 Note [facility] 01-15-2023 Note [facility] 01-15-2023 Note [facility] 01-14-2023 Note [facility] 01-14-2023 Note [facility] 01-13-2023 Note [facility] 01-13-2023 Note [facility] 01-12-2023 Note [facility] 01-12-2023 Note [facility] 01-11-2023 Note [facility] 01-11-2023 Note [facility] 01-11-2023 Note [facility] 01-10-2023 Note [facility] Summary Purpose Family History No Family History Records FoundNo Family History Records Found Advance Directives No Advanced Directives Records FoundNo Advanced Directives Records Found Additional Source Comments (unrecognized sect ion and content) No Status Records FoundNo Status Records Found INFORMATION SOURCE (unrecogn ized section and content) DATE CREATED AUTHOR 01/09/2023 [facility] DATE CREATED AUTHOR AUTHOR'S ORGANIZ ATION 10/12/2023 [facility] FOR RECORDS PERTAINING TO PATIENTS WHO ARE OR HAVE BEEN ENROLLED IN A CHEMICAL DEPENDENCY/SUBSTANCEABUSE PROGRAM, SOME INFORMATION MAY BE OMITTED. This clinical summary was aggregated from multiple sources. Caution should be exercised in using it in the provision of clinical care. This summary normalizes information from multiple sources, and as a consequence, information in this document may materially change the coding, format and clinical context of patient data. In addition, data may be omitted in some cases. CLINICAL DECISIONS SHOULD BE BASED ON THE PRIMARY CLINICAL RECORDS. [employer] [facility] provides no warranty or guarantee of the accuracy or completeness of information in this document.
[2024-01-14 08:18] LABS: Basophils Percent Auto 0.7 % (0.2-2.0); Eosinophils Absolute Auto 0.1 10^3/uL (0.0-0.7); Eosinophils Percent Auto 1.7 % (0.9-7.0); Hematocrit 40.6 % (42.0-54.0); Hemoglobin 14.3 g/dL (14.0-18.0); Immature Granulocytes Abs Auto 0.02 10^3/uL (0.00-0.03); Immature Granulocytes Pct Auto 0.3 % (0.0-0.5); Lymphocytes Absolute Auto 1.4 10^3/uL (1.2-3.8); Lymphocytes Percent Auto 23.6 % (20.5-60.0); Mean Corpuscular HGB Conc 35.2 g/dL (29.9-35.2); Mean Corpuscular Hemoglobin 31.6 pg (25.9-34.0); Mean Corpuscular Volume 89.8 fL (80.0-94.0); Mean Platelet Volume 8.4 fL (9.5-13.5); Monocytes Absolute Auto 0.8 10^3/uL (0.3-0.8); Monocytes Percent Auto 12.7 % (1.7-12.0); Neutrophils Absolute Auto 3.6 10^3/uL (1.4-6.5); Platelet Count 154 10^3/uL (150-450); Red Blood Count 4.52 10^6/uL (4.70-6.10); Red Cell Distribution Width 13.7 % (11.0-15.0); White Blood Count 5.9 10^3/uL (4.0-11.0)
[2024-01-14 09:55] LABS: Alanine Aminotransferase 28 U/L (16-63); Albumin Globulin Ratio 1.1; Albumin Level 3.5 g/dL (3.4-5.0); Alkaline Phosphatase 124 U/L (46-116); Anion Gap 14.1; Aspartate Amino Transferase 15 U/L (15-37); BUN Creatinine Ratio 19.6; Bilirubin Total 0.6 mg/dL (0.2-1.0); Calcium 9.1 mg/dL (8.5-10.1); Carbon Dioxide 25.2 mmol/L (21.0-32.0); Chloride 105 mmol/L (98-107); Chol HDL Ratio 2.7; Cholesterol 108 mg/dL (<=200); Estimated GFR (African America >60 (>=60); Estimated GFR (Non-African Ame >60 (>=60); Free T3 2.75 pg/mL (2.18-3.98); Globulin 3.2 g/dL; Glucose 159 mg/dL (74-106); HDL Cholesterol 40 mg/dL (40-60); Potassium 4.3 mmol/L (3.5-5.1); Sodium 140 mmol/L (136-145); Thyroid Stimulating Hormone 3.618 uIU/mL (0.358-3.740); Total Protein 6.7 g/dL (6.4-8.2); Triglycerides 145 mg/dL (<=150)
[2024-01-14 10:28] LABS: Estimated Average Glucose 171 mg/dL; Glycohemoglobin A1C 7.6 % (4.5-6.2)
== END 2024-01-14 07:31 | disposition home or self-care (01) ==
LOC: LAB 07:34
PROVIDERS: PCP Family Medicine; Visit Provider Family Medicine
DX: Z00.00 Encounter for general adult medical examination without abnormal findings (principal); E78.5 Hyperlipidemia, unspecified; J44.9 Chronic obstructive pulmonary disease, unspecified; E11.9 Type 2 diabetes mellitus without complications; I10 Essential (primary) hypertension
CPT/HCPCS: 36415; 80053; 80061; 82306; 83036; 84436; 84443; 84481; 85025

== ENCOUNTER 2024-06-18 07:40 | Outpatient (OUT) | payer MEDICARE, OTHER, SELFPAY ==
--- NOTE | 2024-06-18 07:42 | VEIN_ITS ---
Patient Name: FRANCISCO TIDWELL MR#: [id number] : 1940 Exam Date: 06/18/2024 Ordering Doctor: DR FAUSTO JUAREZ . RADIOLOGY REPORT PROCEDURE: VC EXT VENOUS REFLUX GEOVANNY LMTD COMPARISON: None. INDICATIONS: Edema R60.0 TECHNIQUE: Duplex imaging of the lower extremity to assess the deep and superficial venous system for the presence of deep or superficial venous incompetence and to document the location and severity of disease. The study includes evaluation of the great saphenous vein (GSV), anterior accessory saphenous vein (AASV) and small saphenous vein (SSV). Patient scanned in reverse Trendelenburg and standing. 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 Compressibility: Partially compressible prox SSV. Flow: Moderate deep venous reflux in popliteal. Preforator: Distal medial lower leg 2.4 mm with 0.6s reflux. Tech Note: LEFT LOWER EXTREMITY: Saphenofemoral Junction Reflux: Yes 5.4 mm 0.4 sec GSV: Diam (mm) Reflux/Time (sec) Proximal Thigh 4.6 No Mid Thigh N/A Distal Thigh N/A Prox Calf N/A Mid Calf N/A Saphenopopliteal Junction Relux: 3.1 mm No SSV: Proximal Calf 2.1 No Mid Calf 3.5 Yes 1.2 AASV: Not present Proximal Thigh Mid Thigh Distal Thigh Thrombi: No acute or chronic thrombus. Compressibility: Normal. Flow: Mild deep venous reflux. Step Finisher: No significant perforators. Tech Note: No significant varicose veins. CONCLUSION: 1. Mildly dilated, but significantly abnormal reflux within the right great saphenous vein. Consider consultation for endovenous ablation. Dictated by: Ramesh Arredondo M.D. on 06/19/2024 at 11:14 Approved by: Ramesh Arredondo M.D. on 06/19/2024 at 11:16
--- NOTE | 2024-06-18 07:42 | VEIN_ITS ---
The [address] [address] Patient Name: FRANCISCO TIDWELL MRN: [id number] date: 1940 Sex: M Assigned Patient Location: Current Patient Location: Accession/Order Number: [id number] Exam Date: 06/18/2024 07:45 Report Date: 06/18/2024 10:11 At the request of: FAUSTO JUAREZ Procedure: VC SEGMENTAL PRESSURES EXAM: VC SEGMENTAL PRESSURES HISTORY: R09.89 Signs and symptoms involving circulatory system COMPARISON: None. TECHNIQUE: Resting ABIs and segmental pressures were obtained. FINDINGS: Right resting DOC 1.15. Left resting DOC 1.26. No pressure gradients were noted. Toe brachial indices are normal. Waveforms are multiphasic. VEIN/VC SEGMENTAL PRESSURES IMPRESSION: Normal resting ABIs. Multiphasic waveforms. Electronically authenticated by: Awa PERAZA Date: 06/18/2024 10:11
--- OUTSIDE RECORDS SUMMARY | 2024-06-18 07:43 | XMS_ITS | CCD ---
Author Organization [facility] Care Team Providers Care Reset Merchandiser Name Role Phone ANN Garza, DR LAMBERT Admitting Unavailable ANN ., DR LAMBERT Attending Unavailable HOY ., DR LAMBERT Consulting Unavailable FRACISCOY ., DR LAMBERT Primary Care Unavailable JALEESA, DR FARMER Consulting Unavailable DARREN ., KELVIN Consulting Unavailable TIFFANY TORO Consulting Unavailable HODaniela ., DR LAMBERT Admitting Unavailable HOY ., DR LAMBERT Attending Unavailable HOY ., DR LAMBERT Consulting Unavailable FRACISCOY ., DR LAMBERT Primary Care Unavailable CHRISTIAN LOWRY Attending Unavailable KEENAN SHANKAR Attending Unavailable Problems Active Problems Problem Classification Problem Date Documented Date Episodic/Chronic Chronic obstructive pulmonary disease and bronchiectasis (1 source) Chronic obstructive pulmonary disease with (acute) lower respiratory infection; Translations: [COPD W/(ACUTE) LOWER RESP INFEC] Onset: 02-04-2022 Chronic Congestive heart failure; nonhypertensive (1 source) Unspecified diastolic (congestive) heart failure; Translations: [UNSPECIFIED DIASTOLIC HEART FAILURE] Onset: 02-04-2022 Chronic Coronary atherosclerosis and other heart disease (4 sources) Atherosclerotic heart disease of [place] coronary artery with other forms of angina pectoris; Translations: [Atherosclerotic heart disease of [place] coronary artery without angina pectoris] Onset: 01-11-2023 Chronic Coronary atherosclerosis and other heart disease (2 sources) Presence of aortocoronary bypass graft; Translations: [Presence of aortocoronary bypass graft] Onset: 05-16-2024 Episodic Disorders of lipid metabolism (2 sources) Mixed hyperlipidemia; Translations: [Mixed hyperlipidemia] Onset: 01-11-2023 Chronic Essential hypertension (2 sources) Essential (primary) hypertension; Translations: [Essential (primary) hypertension] Onset: 01-11-2023 Chronic Hypertension with complications and secondary hypertension (1 source) Hypertensive heart disease with heart failure; Translations: [HTN HEART DISEASE W/HEART FAIL] Onset: 02-04-2022 Chronic Past or Other Problems Problem Classification Problem Date Documented Da te Episodic/Chronic Acute bronchitis (4 sources) Acute bronchitis, unspecified; Translations: [ACUTE BRONCHITIS UNSPECIFIED] Onset: 02-01-2022 Episodic Nonspecific chest pain (1 source) Chest pain, unspecified; Translations: [CHEST PAIN UNSPECIFIED] Onset: 02-04-2022 Episodic Results Test Name Value Interpretation Reference Range Facility Office Visiton 05-16-2024 Follow-up visit [id number] Chad Mckeon 1940 M Date Provider Department Center 05/16/2024 KEENAN EUGENE CARD [facility] Family History Problem Relation Age of Onset No Known Problems Mother Family Status - Relation Status Age at Mother Level of Service:27415 UT OFFICE/OUTPATIENT ESTABLISHED LOW MDM 20 MIN Normal [facility] Office Visiton 10-03-2023 Follow-up visit [id number] Chad Mckeon 1940 M Date Provider Department Center 10/03/2023 CHRISTIAN RAMOS CARD [facility] Family History Problem Relation Age of Onset No Known Problems Mother Family Status - Relation Status Age at Mother Level of Service:69739 UT OFFICE/OUTPATIENT ESTABLISHED MOD MDM 30 MIN Reason for Visit and Comments: Coronary Artery Disease [187] Atrial Fibrillation [80] Hypertension [284465] Normal [facility] CBC AUTO DIFFon 01-09-2023 BASO # 0.1 103/ul Normal 0.0-0.1 [facility] Comment on above: Performed By: #### C BC #### [facility] [address] [place] [address] Dr. Андрей Toledo Basophils/100 WBC (Bld) 0.8 % Normal 0.2-2.0 [facility] Comment on above: Performed By: #### C BC #### [facility] [address] [place] [address] Dr. Андрей Toledo EO # 0.1 103/ul Normal 0.0-0.7 [facility] Comment on above: Performed By: #### C BC #### [facility] [address] [place] [address] Dr. Андрей Toledo Eosinophils/100 WBC (Bld) 2.3 % Normal 0.9-7.0 [facility] Comment on above: Performed By: #### C BC #### [facility] [address] [place] [address] Dr. Андрей Toledo Erythrocyte distribution width (RBC) [Ratio] 13.0 % Normal 11.0-15.0 [facility] Comment on above: Performed By: #### C BC #### [facility] [address] [place] [address] Dr. Андрей Toledo Hematocrit (Bld) [Volume fraction] 38.4 % Critically low 42.0-54.0 [facility] Comment on above: Performed By: #### C BC #### [facility] [address] [place] [address] Dr. Андрей Toledo Hemoglobin (Bld) [Mass/Vol] 13.1 g/dL Critically low 14.0-18.0 [facility] Comment on above: Performed By: #### C BC #### [facility] [address] [place] [address] Dr. Андрей Toledo IG # 0.11 10e3/ul Critically high 0.00-0.03 [facility] Comment on above: Performed By: #### C BC #### [facility] [address] [place] [address] Dr. Андрей Toledo IG % 1.8 % Critically high 0.0-0.5 [facility] Comment on above: Performed By: #### C BC #### [facility] [address] [place] [address] Dr. Андрей Toledo LYMPH # 1.3 103/ul Normal 1.2-3.8 [facility] Comment on above: Performed By: #### C BC #### [facility] [address] [place] [address] Dr. Андрей Toledo Lymphocytes/100 WBC (Bld) 22.2 % Normal 20.5-60.0 [facility] Comment on above: Performed By: #### C BC #### [facility] [address] [place] [address] Dr. Андрей Toledo MANUAL DIFF REQ NO Normal [facility] Comment on above: Performed By: #### C BC #### [facility] [address] [place] [address] Dr. Андрей Toledo MCH (RBC) [Entitic mass] 32.2 pg Normal 25.9-34.0 [facility] Comment on above: Performed By: #### C BC #### [facility] [address] [place] [address] Dr. Андрей Toledo MCHC (RBC) [Mass/Vol] 34.1 g/dL Normal 29.9-35.2 [facility] Comment on above: Performed By: #### C BC #### [facility] [address] [place] [address] Dr. Андрей Toledo MCV (RBC) [Entitic vol] 94.3 fL Critically high 80.0-94.0 [facility] Comment on above: Performed By: #### C BC #### [facility] [address] [place] [address] Dr. Андрей Toledo MONO # 0.9 103/ul Critically high 0.3-0.8 [facility] Comment on above: Performed By: #### C BC #### [facility] [address] [place] [address] Dr. Андрей Toledo Monocytes/100 WBC (Bld) 15.5 % Critically high 1.7-12.0 [facility] Comment on above: Performed By: #### C BC #### [facility] [address] [place] [address] Dr. Андрей Toledo NEUT # 3.4 103/ul Normal 1.4-6.5 [facility] Comment on above: Performed By: #### C BC #### [facility] [address] [place] [address] Dr. Андрей Toledo Neutrophils/100 WBC (Bld) 57.4 % Normal 43.0-75.0 [facility] Comment on above: Performed By: #### C BC #### [facility] [address] [place] [address] Dr. Андрей Toledo Platelet mean volume (Bld) [Entitic vol] 8.5 fL Critically low 9.5-13.5 [facility] Comment on above: Performed By: #### C BC #### [facility] [address] [place] [address] Dr. Андрей Toledo PLT 149 103/ul Critically low 150-450 [facility] Comment on above: Performed By: #### C BC #### [facility] [address] [address] [address] Андрей Toledo RBC 4.07 106/ul Critically low 4.70-6.10 [facility] Comment on above: Performed By: #### C BC #### [facility] [address] [place] [address] Dr. Андрей Toledo WBC 6.0 103/ul Normal 4.0-11.0 [facility] Comment on above: Performed By: #### C BC #### [facility] [address] [place] [address] Dr. Андрей Toledo PROF 14(COMP METB)on 023 Albumin [Mass/Vol] 2.9 g/dL Critically low 3.4-5.0 [facility] Comment on above: Performed By: #### C BC #### [facility] [address] [place] [address] Dr. Андрей Toledo Albumin/Globulin [Mass ratio] 0.9 {ratio} Normal [facility] Comment on above: Performed By: #### C BC #### [facility] [address] [place] [address] Dr. Андрей Toledo ALP [Catalytic activity/Vol] 93 U/L Normal 46-116 [facility] Comment on above: Performed By: #### C BC #### [facility] [address] [place] [address] Dr. Андрей Toledo ALT [Catalytic activity/Vol] 28 U/L Normal 16-63 [facility] Comment on above: Performed By: #### C BC #### [facility] [address] [place] [address] Dr. Андрей Toledo Anion gap [Moles/Vol] 14.9 mmol/L Normal [facility] Comment on above: Performed By: #### C BC #### [facility] [address] [address] [address] Андрей Toledo AST [Catalytic activity/Vol] 17 U/L Normal 15-37 [facility] Comment on above: Performed By: #### C BC #### [facility] [address] [address] [address] Андрей Toledo Bilirubin [Mass/Vol] 0.3 mg/dL Normal 0.2-1.0 [facility] Comment on above: Performed By: #### C BC #### [facility] [address] [address] [address] Андрей Toledo Calcium [Mass/Vol] 8.4 mg/dL Critically low 8.5-10.1 [facility] Comment on above: Performed By: #### C BC #### [facility] [address] [address] [address] Андрей Toledo Chloride [Moles/Vol] 106 mmol/L Normal 98-107 [facility] Comment on above: Performed By: #### C BC #### [facility] [address] [address] [address] Андрей Toledo CO2 [Moles/Vol] 26.5 mmol/L Normal 21.0-32.0 [facility] Comment on above: Performed By: #### C BC #### [facility] [address] [address] [address] Андрей Toledo Creatinine [Mass/Vol] 1.02 mg/dL Normal 0.70-1.30 [facility] Comment on above: Performed By: #### C BC #### [facility] [address] [address] [address] Андрей Toledo EGFR-AF [place] >60 Normal >=60 [facility] Comment on above: Performed By: #### C BC #### [facility] [id number] Андрей Toledo EGFR-NON AF [place] >60 Normal >=60 [facility] Comment on above: Performed By: #### C BC #### [facility] [address] [address] [address] Андрей Toledo Globulin (S) [Mass/Vol] 3.1 g/dL Normal [facility] Comment on above: Performed By: #### C BC #### [facility] [address] [place] [address] Dr. Андрей Toledo Glucose [Mass/Vol] 221 mg/dL Critically high 74-106 [facility] Comment on above: Performed By: #### C BC #### [facility] [address] [place] [address] Dr. Андрей Toledo Potassium [Moles/Vol] 4.4 mmol/L Normal 3.5-5.1 [facility] Comment on above: Performed By: #### C BC #### [facility] [address] [place] [address] Dr. Андрей Toledo Protein [Mass/Vol] 6.0 g/dL Critically low 6.4-8.2 [facility] Comment on above: Performed By: #### C BC #### [facility] [address] [place] [address] Dr. Андрей Toledo Sodium [Moles/Vol] 143 mmol/L Normal 136-[address] [facility] Comment on above: Performed By: #### C BC #### [facility] [address] [place] [address] Dr. Андрей Toledo Urea nitrogen [Mass/Vol] 20.0 mg/dL Critically high 7.0-18.0 [facility] Comment on above: Performed By: #### C BC #### [facility] [address] [place] [address] Dr. Андрей Toledo Urea nitrogen/Creatinine [Mass ratio] 19.6 mg/mg Normal [facility] Comment on above: Performed By: #### C BC #### [facility] [address] [place] [address] Dr. Андрей Toledo PTT HEPARIN MONITORon 2022 aPTT Coag (Bld) [Time] 46.9 s Normal 39.5-54.2 [facility] Comment on above: Performed By: #### P TT, PT #### [facility] [address] [place] [address] Dr. Андрей Toledo BNPon 3 Natriuretic peptide B (Bld) [Mass/Vol] 192.0 pg/mL Normal <=1,800.0 [facility] Comment on above: Performed By: #### H STROPN, BNP, CMP #### [facility] [address] [place] [address] Dr. Андрей Toledo CARDIAC BEAU 3-6on 3 CK [Catalytic activity/Vol] 102 U/L Normal 39-308 [facility] Comment on above: Performed By: #### P TT, PT #### [facility] [address] [place] [address] Dr. Андрей Toledo CK.MB [Mass/Vol] 1.92 ng/mL Normal <=3.60 [facility] Comment on above: Performed By: #### P TT, PT #### [facility] [address] [place] [address] Dr. Андрей Toledo HSTROP 16.0 pg/mL Normal 4.0-76.1 [facility] Comment on above: Result Comment: CUT- OFF POINTS HAVE BEEN ESTABLISHED BASED ON THE FOURTH UNIVERSAL DEFINITIONS OF MYOCARDIAL INFARCTION. THE UPPER REFERENCE LIMIT (URL) OF TROPONIN, DEFINED THE 99TH PERCENTILE OF cTnI DISTRIBUTION IN A REFERENCE POPULATION, HAS BEEN CONFIRMED THE DECISION THRESHOLD FOR UT DIAGNOSIS. Performed By: #### P TT, PT #### [facility] [address] [place] [address] Dr. Андрей Toledo CK [Catalytic activity/Vol] 66 U/L Normal 39-308 [facility] Comment on above: Performed By: #### C MREP #### [facility] [address] [place] [address] Dr. Андрей Toledo CK.MB [Mass/Vol] 2.12 ng/mL Normal <=3.60 [facility] Comment on above: Performed By: #### C MREP #### [facility] [address] [place] [address] Dr. Андрей Toledo HSTROP 20.1 pg/mL Normal 4.0-76.1 [facility] Comment on above: Result Comment: CUT- OFF POINTS HAVE BEEN ESTABLISHED BASED ON THE FOURTH UNIVERSAL DEFINITIONS OF MYOCARDIAL INFARCTION. THE UPPER REFERENCE LIMIT (URL) OF TROPONIN, DEFINED THE 99TH PERCENTILE OF cTnI DISTRIBUTION IN A REFERENCE POPULATION, HAS BEEN CONFIRMED THE DECISION THRESHOLD FOR UT DIAGNOSIS. Performed By: #### C MREP #### [facility] [address] [place] [address] Dr. Андрей Toledo CBC AUTO DIFFon 01-08-2023 EO # 0.1 103/ul Normal 0.0-0.7 [facility] Comment on above: Performed By: #### C BC #### [facility] [address] [place] [address] Dr. Андрей Toledo Eosinophils/100 WBC (Bld) 1.9 % Normal 0.9-7.0 [facility] Comment on above: Performed By: #### C BC #### [facility] [address] [place] [address] Dr. Андрей Toledo Erythrocyte distribution width (RBC) [Ratio] 13.1 % Normal 11.0-15.0 [facility] Comment on above: Performed By: #### C BC #### [facility] [address] [place] [address] Dr. Андрей Toledo Hematocrit (Bld) [Volume fraction] 38.8 % Critically low 42.0-54.0 [facility] Comment on above: Performed By: #### C BC #### [facility] [address] [place] [address] Dr. Андрей Toledo Hemoglobin (Bld) [Mass/Vol] 13.0 g/dL Critically low 14.0-18.0 [facility] Comment on above: Performed By: #### C BC #### [facility] [address] [place] [address] Dr. Андрей Toledo IG # 0.05 10e3/ul Critically high 0.00-0.03 [facility] Comment on above: Performed By: #### C BC #### [facility] [address] [place] [address] Dr. Андрей Toledo IG % 0.7 % Critically high 0.0-0.5 [facility] Comment on above: Performed By: #### C BC #### [facility] [address] [place] [address] Dr. Андрей Toledo Lymphocytes/100 WBC (Bld) 23.2 % Normal 20.5-60.0 [facility] Comment on above: Performed By: #### C BC #### [facility] [address] [place] [address] Dr. Андрей Toledo MCH (RBC) [Entitic mass] 31.9 pg Normal 25.9-34.0 [facility] Comment on above: Performed By: #### C BC #### [facility] [address] [place] [address] Dr. Андрей Toledo MCV (RBC) [Entitic vol] 95.1 fL Critically high 80.0-94.0 [facility] Comment on above: Performed By: #### C BC #### [facility] [address] [place] [address] Dr. Андрей Toledo MONO # 0.9 103/ul Critically high 0.3-0.8 [facility] Comment on above: Performed By: #### C BC #### [facility] [address] [place] [address] Dr. Андрей Toledo Monocytes/100 WBC (Bld) 13.6 % Critically high 1.7-12.0 [facility] Comment on above: Performed By: #### C BC #### [facility] [address] [place] [address] Dr. Андрей Toledo NEUT # 4.1 103/ul Normal 1.4-6.5 [facility] Comment on above: Performed By: #### C BC #### [facility] [address] [place] [address] Dr. Андрей Toledo Neutrophils/100 WBC (Bld) 60.0 % Normal 43.0-75.0 [facility] Comment on above: Performed By: #### C BC #### [facility] [address] [place] [address] Dr. Андрей Toledo Platelet mean volume (Bld) [Entitic vol] 8.6 fL Critically low 9.5-13.5 [facility] Comment on above: Performed By: #### C BC #### [facility] [address] [address] [address] Андрей Toledo PLT 153 103/ul Normal 150-450 [facility] Comment on above: Performed By: #### C BC #### [facility] [address] [address] [address] Андрей Toledo RBC 4.08 106/ul Critically low 4.70-6.10 [facility] Comment on above: Performed By: #### C BC #### [facility] [address] [address] [address] Андрей Toledo BASO # 0.0 103/ul Normal 0.0-0.1 [facility] Comment on above: Performed By: #### C BC #### [facility] [address] [place] [address] Dr. Андрей Toledo Basophils/100 WBC (Bld) 0.6 % Normal 0.2-2.0 [facility] Comment on above: Performed By: #### C BC #### [facility] [address] [place] [address] Dr. Андрей Toledo EO # 0.2 103/ul Normal 0.0-0.7 [facility] Comment on above: Performed By: #### C BC #### [facility] [address] [place] [address] Dr. Андрей Toledo Eosinophils/100 WBC (Bld) 2.6 % Normal 0.9-7.0 [facility] Comment on above: Performed By: #### C BC #### [facility] [address] [address] [address] Андрей Toledo Erythrocyte distribution width (RBC) [Ratio] 12.9 % Normal 11.0-15.0 [facility] Comment on above: Performed By: #### C BC #### [facility] [address] [place] [address] Dr. Андрей Toledo Hematocrit (Bld) [Volume fraction] 37.9 % Critically low 42.0-54.0 [facility] Comment on above: Performed By: #### C BC #### [facility] [address] [address] [address] Андрей Toledo Hemoglobin (Bld) [Mass/Vol] 12.7 g/dL Critically low 14.0-18.0 [facility] Comment on above: Performed By: #### C BC #### [facility] [address] [address] [address] Андрей Toledo IG # 0.03 10e3/ul Normal 0.00-0.03 [facility] Comment on above: Performed By: #### C BC #### [facility] [address] [place] [address] Dr. Андрей Toledo IG % 0.4 % Normal 0.0-0.5 [facility] Comment on above: Performed By: #### C BC #### [facility] [address] [place] [address] Dr. Андрей Toledo LYMPH # 1.6 103/ul Normal 1.2-3.8 [facility] Comment on above: Performed By: #### C BC #### [facility] [address] [place] [address] Dr. Андрей Toledo Lymphocytes/100 WBC (Bld) 23.5 % Normal 20.5-60.0 [facility] Comment on above: Performed By: #### C BC #### [facility] [address] [place] [address] Dr. Андрей Toledo MANUAL DIFF REQ NO Normal [facility] Comment on above: Performed By: #### C BC #### [facility] [address] [place] [address] Dr. Андрей Toledo MCH (RBC) [Entitic mass] 31.8 pg Normal 25.9-34.0 [facility] Comment on above: Performed By: #### C BC #### [facility] [address] [place] [address] Dr. Андрей Toledo MCHC (RBC) [Mass/Vol] 33.5 g/dL Normal 29.9-35.2 [facility] Comment on above: Performed By: #### C BC #### [facility] [address] [address] [address] Андрей Toledo MCV (RBC) [Entitic vol] 95.0 fL Critically high 80.0-94.0 [facility] Comment on above: Performed By: #### C BC #### [facility] [address] [address] [address] Андрей Toledo MONO # 1.0 103/ul Critically high 0.3-0.8 [facility] Comment on above: Performed By: #### C BC #### [facility] [address] [address] [address] Андрей Toledo Monocytes/100 WBC (Bld) 14.8 % Critically high 1.7-12.0 [facility] Comment on above: Performed By: #### C BC #### [facility] [address] [place] [address] Dr. Андрей Toledo NEUT # 4.0 103/ul Normal 1.4-6.5 [facility] Comment on above: Performed By: #### C BC #### [facility] [address] [place] [address] Dr. Андрей Toledo Neutrophils/100 WBC (Bld) 58.1 % Normal 43.0-75.0 [facility] Comment on above: Performed By: #### C BC #### [facility] [address] [place] [address] Dr. Андрей Toledo Platelet mean volume (Bld) [Entitic vol] 8.3 fL Critically low 9.5-13.5 [facility] Comment on above: Performed By: #### C BC #### [facility] [address] [place] [address] Dr. Андрей Toledo PLT 145 103/ul Critically low 150-450 [facility] Comment on above: Performed By: #### C BC #### [facility] [address] [address] [address] Андрей Toledo RBC 3.99 106/ul Critically low 4.70-6.10 [facility] Comment on above: Performed By: #### C BC #### [facility] [address] [place] [address] Dr. Андрей Toledo WBC 6.8 103/ul Normal 4.0-11.0 [facility] Comment on above: Performed By: #### C BC #### [facility] [address] [place] [address] Dr. Андрей Toledo Covid-[facility]25 SARS-CoV-2 (COVID-19) RNA CLAUDIA+probe Ql (Unsp spec) Not detected Normal NOT DETECTED [facility] Comment on above: Result Comment: THIS TEST IS NOT APPROVED BY THE FDA. IT HAS BEEN AUTHORIZED FOR USE UNDER AN EMERGENCY USE AUTHORIZATION. Performed By: #### C VDTB #### [facility] [address] [place] [address] Dr. Андрей Toledo LIPID PROFILEon 01-08-2023 CHOL-HDL RATIO NORM SEE BELOW Normal [facility] Comment on above: Result Comment: 3.3 - 4.4 LOW RISK 4.4 - 7.1 AVERAGE RISK 7.1 - 11.0 MODERATE RISK >11.0 HIGH RISK Performed By: #### C BC #### [facility] [address] [place] [address] Dr. Андрей Toledo Cholesterol [Mass/Vol] 183 mg/dL Normal <=200 [facility] Comment on above: Performed By: #### C BC #### [facility] [address] [place] [address] Dr. Андрей Toledo Cholesterol in HDL [Mass/Vol] 33 mg/dL Critically low 40-60 [facility] Comment on above: Performed By: #### C BC #### [facility] [address] [place] [address] Dr. Андрей Toledo Cholesterol in LDL [Mass/Vol] 90.8 mg/dL Normal [facility] Comment on above: Performed By: #### C BC #### [facility] [address] [place] [address] Dr. Андрей Toledo Cholesterol.total/C holesterol in HDL [Mass ratio] 5.5 {ratio} Normal [facility] Comment on above: Performed By: #### C BC #### [facility] [address] [address] [address] Андрей Toledo HDL NORMAL > or = 60 mg/dl - LO W CARDIOVASCULAR RISK <40 mg/dl - HIGH CARDIOVASCULAR RISK Normal [facility] Comment on above: Performed By: #### C BC #### [facility] [address] [address] [address] Андрей Toledo LDL CALC NORMAL SEE BELOW Normal [facility] Comment on above: Result Comment: <100 mg/dl OPTIMAL 100 - 129 mg/dl NEAR OR ABOVE OPTIMAL 130 - 159 mg/dl BORDERLINE HIGH 160 - 189 mg/dl HIGH >190 mg/dl VERY HIGH Performed By: #### C BC #### [facility] [address] [place] [address] Dr. Андрей Toledo Triglyceride [Mass/Vol] 296 mg/dL Critically high <=150 [facility] Comment on above: Performed By: #### C BC #### [facility] [address] [place] [address] Dr. Андрей Toledo VLDL CALC 59.2 mg/dL Normal [facility] Comment on above: Performed By: #### C BC #### [facility] [address] [place] [address] Dr. Андрей Toledo POINT OF CARE GLUCOSEon 12-25 Glucose [Mass/Vol] 160 mg/dL Critically high 74-106 T [facility] Comment on above: Performed By: #### C BC #### [facility] [address] [place] [address] Dr. Андрей Toledo PROF 14(COMP METB)on 023 Albumin [Mass/Vol] 3.0 g/dL Critically low 3.4-5.0 [facility] Comment on above: Performed By: #### H STROPN, BNP, CMP #### [facility] [address] [place] [address] Dr. Андрей Toledo Albumin/Globulin [Mass ratio] 0.9 {ratio} Normal [facility] Comment on above: Performed By: #### H STROPN, BNP, CMP #### [facility] [address] [address] [address] Андрей Toledo ALP [Catalytic activity/Vol] 95 U/L Normal 46-116 [facility] Comment on above: Performed By: #### H STROPN, BNP, CMP #### [facility] [address] [address] [address] Андрей Toledo ALT [Catalytic activity/Vol] 24 U/L Normal 16-63 [facility] Comment on above: Performed By: #### H STROPN, BNP, CMP #### [facility] [address] [address] [address] Андрей Toledo Anion gap [Moles/Vol] 12.8 mmol/L Normal [facility] Comment on above: Performed By: #### H STROPN, BNP, CMP #### [facility] [address] [address] [address] Андрей Toledo AST [Catalytic activity/Vol] 12 U/L Critically low 15-37 [facility] Comment on above: Performed By: #### H STROPN, BNP, CMP #### [facility] [address] [address] [address] Андрей Toledo Bilirubin [Mass/Vol] 0.5 mg/dL Normal 0.2-1.0 [facility] Comment on above: Performed By: #### H STROPN, BNP, CMP #### [facility] [address] [address] [address] Андрей Toledo Calcium [Mass/Vol] 8.8 mg/dL Normal 8.5-10.[address] [facility] Comment on above: Performed By: #### H STROPN, BNP, CMP #### [facility] [address] [address] [address] Андрей Toledo Chloride [Moles/Vol] 108 mmol/L Critically high 98-107 [facility] Comment on above: Performed By: #### H STROPN, BNP, CMP #### [facility] [address] [address] [address] Андрей Toledo CO2 [Moles/Vol] 29.2 mmol/L Normal 21.0-32.0 [facility] Comment on above: Performed By: #### H STROPN, BNP, CMP #### [facility] [address] [address] [address] Андрей Toledo Creatinine [Mass/Vol] 1.06 mg/dL Normal 0.70-1.30 [facility] Comment on above: Performed By: #### H STROPN, BNP, CMP #### [facility] [address] [address] [address] Андрей Toledo EGFR-AF [place]TH [place]OREAN >60 Normal >=60 [facility] Comment on above: Performed By: #### H STROPN, BNP, CMP #### [facility] [address] [address] [address] Андрей Toledo EGFR-NON AF [place]OREAN >60 Normal >=60 [facility] Comment on above: Performed By: #### H STROPN, BNP, CMP #### [facility] [address] [address] [address] Андрей Toledo Globulin (S) [Mass/Vol] 3.3 g/dL Normal [facility] Comment on above: Performed By: #### H STROPN, BNP, CMP #### [facility] [address] [address] [address] Андрей Toledo Glucose [Mass/Vol] 155 mg/dL Critically high 74-106 T [facility] Comment on above: Performed By: #### H STROPN, BNP, CMP #### [facility] [address] [address] [address] Андрей Toledo Potassium [Moles/Vol] 5.0 mmol/L Normal 3.5-5.1 [facility] Comment on above: Performed By: #### H STROPN, BNP, CMP #### [facility] [address] [address] [address] Андрей Toledo Protein [Mass/Vol] 6.3 g/dL Critically low 6.4-8.2 [facility] Comment on above: Performed By: #### H STROPN, BNP, CMP #### [facility] [address] [address] [address] Андрей Toledo Sodium [Moles/Vol] 145 mmol/L Normal 136-[address] [facility] Comment on above: Performed By: #### H STROPN, BNP, CMP #### [facility] [address] [place] [address] Dr. Андрей Toledo Urea nitrogen [Mass/Vol] 25.0 mg/dL Critically high 7.0-18.0 [facility] Comment on above: Performed By: #### H STROPN, BNP, CMP #### [facility] [address] [place] [address] Dr. Андрей Toledo Urea nitrogen/Creatinine [Mass ratio] 23.6 mg/mg Normal [facility] Comment on above: Performed By: #### H STROPN, BNP, CMP #### [facility] [address] [place] [address] Dr. Андрей Toledo PROTIMEon 01-08-2023 INR Coag (PPP) [Relative time] 0.94 {INR} Normal [facility] Comment on above: Performed By: #### P TT, PT #### [facility] [address] [place] [address] Dr. Андрей Toledo INR GUIDELINES SEE BELOW Normal [facility] Comment on above: Result Comment: CAMMIE RED INR: 2.0 - 3.0 CONDITIONS NOT LISTED BELOW 2.5 - 3.5 FOR PROSTHETIC HEART VALVE REPLACEMENT 2.5 - 3.5 RECURRENT THROMBOSIS Performed By: #### P TT, PT #### [facility] [address] [place] [address] Dr. Андрей Toledo PT Coag (PPP) [Time] 10.0 s Normal 9.0-11.6 [facility] Comment on above: Performed By: #### P TT, PT #### [facility] [address] [place] [address] Dr. Андрей Toledo PTTon 01-08-2023 aPTT Coag (Bld) [Time] 27.5 s Normal 22.3-36.2 [facility] Comment on above: Performed By: #### P TT, PT #### [facility] [address] [place] [address] Dr. Андрей Toledo SYMPTOMATIC COVID-19 ANTIGEN on 01-08-2023 EUA Statement SEE BELOW Normal [facility] Comment on above: Result Comment: This [...] Performed By: #### P TT, PT #### [facility] [address] [place] [address] Dr. Андрей Toledo SARS-CoV-2 (COVID-19) RNA CLAUDIA+probe Ql (Unsp spec) Negative Normal NEGATIVE [facility] Comment on above: Performed By: #### P TT, PT #### [facility] [address] [place] [address] Dr. Андрей Toledo T4on 01-08-2023 T4 [Mass/Vol] 6.20 ug/dL Normal 4.50-12.10 [facility] Comment on above: Performed By: #### P TT, PT #### [facility] [address] [place] [address] Dr. Андрей Toledo TROPONIN, HIGH SENSITIVITYon 01-08-2023 HSTROP 28.8 pg/mL Normal 4.0-76.1 [facility] Comment on above: Result Comment: CUT- OFF POINTS HAVE BEEN ESTABLISHED BASED ON THE FOURTH UNIVERSAL DEFINITIONS OF MYOCARDIAL INFARCTION. THE UPPER REFERENCE LIMIT (URL) OF TROPONIN, DEFINED THE 99TH PERCENTILE OF cTnI DISTRIBUTION IN A REFERENCE POPULATION, HAS BEEN CONFIRMED THE DECISION THRESHOLD FOR UT DIAGNOSIS. Performed By: #### H STROPN, BNP, CMP #### [facility] [address] [place] [address] Dr. Андрей Toledo TSHon 01-08-2023 TSH 2.888 uIU/mL Normal 0.358-3.740 [facility] Comment on above: Performed By: #### C BC #### [facility] [address] [place] [address] Dr. Андрей Toledo XR CHEST 1 Von [...] TIFFANY TORO Date: 2023-01-08 11:22 Normal [facility] T4 LABCORPon 02-02-2022 T4 [Mass/Vol] 7.5 ug/dL Normal 4.5-12.0 [facility] Comment on above: Performed By: #### T 4LC #### [facility] [address] [place] [address] Dr. Андрей Toledo BNPon 02-01-2022 Natriuretic peptide B (Bld) [Mass/Vol] 26.0 pg/mL Normal <=1,800.0 [facility] Comment on above: Performed By: #### P TT, PT #### [facility] [address] [address] [address] Андрей Toledo CBC AUTO DIFFon 02-01-2022 BASO # 0.1 103/ul Normal 0.0-0.1 [facility] Comment on above: Performed By: #### P TT, PT #### [facility] [address] [address] [address] Андрей Toledo Basophils/100 WBC (Bld) 0.6 % Normal 0.2-2.0 [facility] Comment on above: Performed By: #### P TT, PT #### [facility] [address] [place] [address] Dr. Андрей Toledo EO # 0.2 103/ul Normal 0.0-0.7 [facility] Comment on above: Performed By: #### P TT, PT #### [facility] [address] [place] [address] Dr. Андрей Toledo Eosinophils/100 WBC (Bld) 1.9 % Normal 0.9-7.0 [facility] Comment on above: Performed By: #### P TT, PT #### [facility] [address] [place] [address] Dr. Андрей Toledo Erythrocyte distribution width (RBC) [Ratio] 13.2 % Normal 11.0-15.0 [facility] Comment on above: Performed By: #### P TT, PT #### [facility] [address] [place] [address] Dr. Андрей Toledo Hematocrit (Bld) [Volume fraction] 42.7 % Normal 42.0-54.0 [facility] Comment on above: Performed By: #### P TT, PT #### [facility] [address] [place] [address] Dr. Андрей Toledo Hemoglobin (Bld) [Mass/Vol] 14.2 g/dL Normal 14.0-18.0 [facility] Comment on above: Performed By: #### P TT, PT #### [facility] [address] [place] [address] Dr. Андрей Toledo IG # 0.11 10e3/ul Critically high 0.00-0.03 [facility] Comment on above: Performed By: #### P TT, PT #### [facility] [address] [place] [address] Dr. Андрей Toledo IG % 1.4 % Critically high 0.0-0.5 [facility] Comment on above: Performed By: #### P TT, PT #### [facility] [address] [place] [address] Dr. Андрей Toledo LYMPH # 1.6 103/ul Normal 1.2-3.8 [facility] Comment on above: Performed By: #### P TT, PT #### [facility] [address] [place] [address] Dr. Андрей Toledo Lymphocytes/100 WBC (Bld) 20.0 % Critically low 20.5-60.0 [facility] Comment on above: Performed By: #### P TT, PT #### [facility] [address] [place] [address] Dr. Андрей Toledo MANUAL DIFF REQ NO Normal [facility] Comment on above: Performed By: #### P TT, PT #### [facility] [address] [place] [address] Dr. Андрей Toledo MCH (RBC) [Entitic mass] 30.5 pg Normal 25.9-34.0 [facility] Comment on above: Performed By: #### P TT, PT #### [facility] [address] [place] [address] Dr. Андрей Toledo MCHC (RBC) [Mass/Vol] 33.3 g/dL Normal 29.9-35.2 [facility] Comment on above: Performed By: #### P TT, PT #### [facility] [address] [place] [address] Dr. Андрей Toledo MCV (RBC) [Entitic vol] 91.8 fL Normal 80.0-94.0 [facility] Comment on above: Performed By: #### P TT, PT #### [facility] [address] [place] [address] Dr. Андрей Toledo MONO # 1.0 103/ul Critically high 0.3-0.8 [facility] Comment on above: Performed By: #### P TT, PT #### [facility] [address] [place] [address] Dr. Андрей Toledo Monocytes/100 WBC (Bld) 13.4 % Critically high 1.7-12.0 [facility] Comment on above: Performed By: #### P TT, PT #### [facility] [address] [place] [address] Dr. Андрей Toledo NEUT # 4.9 103/ul Normal 1.4-6.5 [facility] Comment on above: Performed By: #### P TT, PT #### [facility] [address] [place] [address] Dr. Андрей Toledo Neutrophils/100 WBC (Bld) 62.7 % Normal 43.0-75.0 [facility] Comment on above: Performed By: #### P TT, PT #### [facility] [address] [address] [address] Андрей Toledo Platelet mean volume (Bld) [Entitic vol] 8.8 fL Critically low 9.5-13.5 [facility] Comment on above: Performed By: #### P TT, PT #### [facility] [address] [address] [address] Андрей Toledo PLT 235 103/ul Normal 150-450 [facility] Comment on above: Performed By: #### P TT, PT #### [facility] [address] [address] [address] Андрей Toledo RBC 4.65 106/ul Critically low 4.70-6.10 [facility] Comment on above: Performed By: #### P TT, PT #### [facility] [address] [place] [address] Dr. Андрей Toledo WBC 7.8 103/ul Normal 4.0-11.0 [facility] Comment on above: Performed By: #### P TT, PT #### [facility] [address] [address] [address] Андрей Toledo FREE THYROXINE INDEX T7on FTI 2.70 Normal 1.30-4.50 [facility] Comment on above: Performed By: #### P TT, PT #### [facility] [address] [place] [address] Dr. Андрей Toledo T3U 36.0 % Normal 33.0-40.0 [facility] Comment on above: Performed By: #### P TT, PT #### [facility] [address] [address] [address] Андрей Toledo T4 [Mass/Vol] 7.50 ug/dL Normal 4.50-12.10 [facility] Comment on above: Result Comment: T4 t esting performed by [facility] Performed By: #### P TT, PT #### [facility] [address] [address] [address] Андрей Toledo PROF 14(COMP METB)on 022 Albumin [Mass/Vol] 3.2 g/dL Critically low 3.4-5.0 Th [facility] Comment on above: Performed By: #### P TT, PT #### [facility] [address] [address] [address] Андрей Toledo Albumin/Globulin [Mass ratio] 0.8 {ratio} Normal [facility] Comment on above: Performed By: #### P TT, PT #### [facility] [address] [address] [address] Андрей Toledo ALP [Catalytic activity/Vol] 105 U/L Normal 46-116 [facility] Comment on above: Performed By: #### P TT, PT #### [facility] [address] [place] [address] Dr. Андрей Toledo ALT [Catalytic activity/Vol] 26 U/L Normal 16-63 [facility] Comment on above: Performed By: #### P TT, PT #### [facility] [address] [place] [address] Dr. Андрей Toledo Anion gap [Moles/Vol] 12.1 mmol/L Normal [facility] Comment on above: Performed By: #### P TT, PT #### [facility] [address] [place] [address] Dr. Андрей Toledo AST [Catalytic activity/Vol] 15 U/L Normal 15-37 [facility] Comment on above: Performed By: #### P TT, PT #### [facility] [address] [place] [address] Dr. Андрей Toledo Bilirubin [Mass/Vol] 0.4 mg/dL Normal 0.2-1.0 [facility] Comment on above: Performed By: #### P TT, PT #### [facility] [address] [address] [address] Андрей Toledo Calcium [Mass/Vol] 8.9 mg/dL Normal 8.5-10.[address] [facility] Comment on above: Performed By: #### P TT, PT #### [facility] [address] [address] [address] Андрей Toledo Chloride [Moles/Vol] 103 mmol/L Normal 98-107 [facility] Comment on above: Performed By: #### P TT, PT #### [facility] [address] [address] [address] Андрей Toledo CO2 [Moles/Vol] 27.8 mmol/L Normal 21.0-32.0 [facility] Comment on above: Performed By: #### P TT, PT #### [facility] [address] [address] [address] Андрей Toledo Creatinine [Mass/Vol] 1.09 mg/dL Normal 0.70-1.30 [facility] Comment on above: Performed By: #### P TT, PT #### [facility] [address] [place] [address] Dr. Андрей Toledo EGFR-AF [place]OREAN >60 Normal >=60 [facility] Comment on above: Performed By: #### P TT, PT #### [facility] [address] [place] [address] Dr. Андрей Toledo EGFR-NON AF [place] >60 Normal >=60 [facility] Comment on above: Performed By: #### P TT, PT #### [facility] [address] [place] [address] Dr. Андрей Toledo Globulin (S) [Mass/Vol] 3.8 g/dL Normal [facility] Comment on above: Performed By: #### P TT, PT #### [facility] [address] [address] [address] Андрей Toledo Glucose [Mass/Vol] 206 mg/dL Critically high 74-106 T [facility] Comment on above: Performed By: #### P TT, PT #### [facility] [address] [address] [address] Андрей Toledo Potassium [Moles/Vol] 4.9 mmol/L Normal 3.5-5.1 [facility] Comment on above: Performed By: #### P TT, PT #### [facility] [address] [address] [address] Андрей Toledo Protein [Mass/Vol] 7.0 g/dL Normal 6.4-8.[address] [facility] Comment on above: Performed By: #### P TT, PT #### [facility] [address] [place] [address] Dr. Андрей Toledo Sodium [Moles/Vol] 138 mmol/L Normal 136-145 [facility] Comment on above: Performed By: #### P TT, PT #### [facility] [address] [address] [address] Андрей Toledo Urea nitrogen [Mass/Vol] 25.0 mg/dL Critically high 7.0-18.0 [facility] Comment on above: Performed By: #### P TT, PT #### [facility] [address] [place] [address] Dr. Андрей Toledo Urea nitrogen/Creatinine [Mass ratio] 22.9 mg/mg Normal [facility] Comment on above: Performed By: #### P TT, PT #### [facility] [address] [place] [address] Dr. Андрей Toledo TSHon 02-01-2022 TSH 1.928 uIU/mL Normal 0.358-3.740 [facility] Comment on above: Performed By: #### P TT, PT #### [facility] [address] [place] [address] Dr. Андрей Toledo TSH RANGE SEE BELOW Normal [facility] Comment on above: Result Comment: <0.3 4 UIU/ml HYPERTHYROID 0.34-5.60 UIU/ml EUTHYROID >5.60 UIU/ml HYPOTHYROID Performed By: #### P TT, PT #### [facility] [address] [place] [address] Dr. Андрей Toledo Encounters Encounter Date Encounter Type Care Provider Facility Start: 05-16-2024 End: 05-16-2024 ambulatory [facility] Start: 10-03-2023 End: 10-03-2023 ambulatory [facility] Start: 01-08-2023 End: 01-09-[address] FAUSTO BLACKMAN . Facility: Start: 02-01-2022 End: 02-02-[address] FAUSTO BLACKMAN . Facility: Payers Date Payer Category Payer Medicare [id number] 1958 Private Health Insurance [id number] 1940 Unknown [id number] 1940 Unknown [id number] Progress note 05-16-2024 Note Date & Type Note Facility 05-16-2024 Note Coronary artery dise ase is unchanged. Continue GDMT- ASA, plavix, metoprolol, lipitor Continue heart healthy diet and regular exercise Continue current treatment regimen. Continue current medications. Cardiac status will be reassessed in 6 months. [facility] Progress note 05-16-2024 Note Date & Type Note Facility 05-16-2024 Note [facility] CARDIOLOGY PROGR ESS NOTE HPI: Chad Mckeon is a 83 y.o. male here for routine F/U HPI 83 yo male presents today for F/U with known PMH- CAD s/p CABG 01/15/2023, post-op a.fib, HTN, DM . Overall pt is doing quite well. Denied chest pain, SOB, orthopnea, palpitations. Remains quite active and yesterday he power washed his home and still mows his own yard. Review of Systems Constitutional: Negative. Respiratory: Negative. Cardiovascular: Negative. Neurological: Negative. All other systems reviewed and are negative. Visit Vitals BP 120/77 (BP Location: Right arm, Patient Position: Sitting) Pulse 90 Ht 1.753 m (5' 9 ) Wt 91.2 kg (201 lb) SpO2 95% BMI 29.68 kg/m??? Smoking Status Former BSA 2.11 m??? No Known Allergies Medications: Current Outpatient Medications on File Prior to Visit Medication Sig Dispense Refill aspirin 81 mg EC tablet Take 81 mg by mouth in the morning. atorvastatin (Lipitor) 40 mg tablet Take 1 tablet (40 mg) by mouth at bedtime for 92 doses. 30 tablet 3 cetirizine (ZyrTEC) 10 mg tablet Take 10 mg by mouth in the morning. clopidogrel (Plavix) 75 mg tablet TAKE 1 TABLET (75 MG) BY MOUTH IN THE MORNING. 30 tablet 11 glimepiride (Amaryl) 4 mg tablet Take 4 mg by mouth before breakfast. magnesium oxide (Mag-Ox) 400 mg (241.3 mg magnesium) tablet Take 1 tablet by mouth if needed in the morning and at bedtime. metFORMIN (Glucophage) 500 mg tablet Take 500 mg by mouth with breakfast and with evening meal. pantoprazole (ProtoNix) 40 mg EC tablet Take 40 mg by mouth in the morning. potassium chloride CR (Klor-Con M20) 20 mEq ER tablet Take 20 mEq by mouth if needed each day. Take with lasix metoprolol tartrate (Lopressor) 25 mg tablet Take 1 tablet (25 mg) by mouth in the morning and at bedtime for 183 doses. (Patient taking differently: Take 12.5 mg by mouth in the morning and at bedtime.) 60 tablet 3 [DISCONTINUED] furosemide (Lasix) 40 mg tablet Take 1 tablet (40 mg) by mouth if needed each day (for leg swelling, shortness of breath, weight gain). 30 tablet 0 [DISCONTINUED] insulin glargine (Lantus) 100 unit/mL injection Inject 20 Units under the skin in the morning and at bedtime for 184 doses. (Patient not taking: Reported on 10/03/2023) 10 mL 0 No current facility-administered medications on file prior to visit. Physical Exam: Constitutional: Appearance: Normal appearance. Without apparent distress HENT: Head: Normocephalic and atraumatic. Nose: Nose normal. Mouth/Throat: Mouth: Mucous membranes are moist. Eyes: Extraocular Movements: Extraocular movements intact. Conjunctiva/sclera: Conjunctivae normal. Neck: Vascular: No JVD. Cardiovascular: Rate and Rhythm: Normal rate and regular rhythm. Pulses: Dorsalis pedis pulses are 3 on the right side and 3on the left side. Posterior tibial pulses are 3 on the right side and 3 on the left side. Heart sounds: Normal heart sounds, S1 normal and S2 normal. Pulmonary: Effort: Pulmonary effort is normal. Breath sounds: Normal breath sounds. Abdominal: General: Bowel sounds are normal. Palpations: Abdomen is soft. Musculoskeletal: General: Normal range of motion. Cervical back: Normal range of motion. Right lower leg: No edema. Left lower leg: No edema. Skin: General: Skin is warm and dry. Mid sternal incision is well healed scar Capillary Refill: Capillary refill takes less than 2 seconds. Neurological: General: No focal deficit present. Mental Status: he is alert and oriented to person, place, and time. Psychiatric: Mood and Affect: Mood normal. Behavior: Behavior normal. Thought Content: Thought content normal. Judgment: Judgment normal. Labs: 01/14/24 CBC normal BUN18, CR 0.92- normal A1C 7.6 elevated Liver function normal Chol 108, Trig 145, HDL 40, LDL 39- well controlled TSH normal 02/28/23 CBC stable- WBC 7.0, HGB 13.1, plt 222 NA 141, K+ 4.8.- normal BUN 25, CR 1.43, GFR 47 ALP 123, AST 16, ALT 23 Pro [id number]- normal TSH 5.227= elevated, Free T4 1.24 normal Last lab values have been reviewed CV Testing: Cardiac catheterization 01/09/2023: Impression/Findings: Coronary angiogram shows severe three-vessel coronary artery disease. 95% stenosis in the proximal LAD. 70% stenosis in the mid to distal LAD. 80% stenosis in the proximal OM1. 95% stenosis in the mid circumflex [the distal vessel is of small caliber]. 90% stenosis in the PLV branch of the RCA. Moderate elevation of left filling pressures. No evidence of aortic valve stenosis. Echocardiogram 01/09/2023: Left Ventricle: The left ventricle is normal size. Global left ventricular systolic function is normal. The EF is 65 % visually. Interventricular septal thickness is increased in the proximal portion. No regional wall motion abnormality. Right Ventricle: The right ventricle is mildly enlarged. Normal right ventricular systolic function. Doppler sung (more content not included)... [facility] Progress note 05-16-2024 Note Date & Type Note Facility 05-16-2024 Note Pt is here for a six month follow up. Pt denies sob, chest pain, palpatations. Review of Systems All other systems reviewed and are negative. [facility] Progress note 05-16-2024 Note Date & Type Note Facility 05-16-2024 Note Lipid abnormalities are well controlled, liver function normal Continue lipitor [facility] Progress note 05-16-2024 Note Date & Type Note Facility 05-16-2024 Note Hypertension is well controlled Continue metoprolol Renal function normal [facility] Progress note 10-03-2023 Note Date & Type Note Facility 10-03-2023 Note Cardiovascular Medic [facility] SUBJECTIVE Chief Complaint Patient presents with Coronary Artery Disease Atrial Fibrillation Hypertension Chad Mckeon is a 83 y.o. male here for follow-up. HPI PMHx: CAD s/p CABG 01/15/2023, post-op a.fib, HTN, DM He c/o a small site on his sternal incision breaking open every 6-8 weeks. His PCP has been treating this with ointments and PO antibiotics. He has also noticed a bump emerge from another area below the site that breaks open. Patient is getting frustrated with this reoccurring. He c/o left leg weakness since his bypass surgery. Recommended cardiac rehab, PT, or home PT. He declines any therapy at this time. He was upset after his last visit with cardiology as he was told that his insurance company denied his visit and he had to pay for it out of pocket. He was told by billing that his insurance stated the visit was not necessary. He will not continue to follow-up with us if this happens again. He denies c/o chest pain, dyspnea, orthopnea, PND, LE edema, dizziness/LH, palpitations, syncope, fevers/chills. Patient Active Problem List Diagnosis Angina pectoris, unstable (CMS/HCC) Chronic obstructive pulmonary disease (CMS/HCC) Essential hypertension Hyperlipidemia Type 2 diabetes mellitus without complication (CMS/HCC) Unspecified macular degeneration Pure hyperglyceridemia Coronary artery disease of [place] artery of [place] heart with stable angina pectoris (CMS/HCC) Obesity Hypomagnesemia Acute respiratory insufficiency Pleural effusion Postoperative atrial fibrillation (CMS/HCC) Atelectasis Acute blood loss as cause of postoperative anemia Past Medical History: Diagnosis Date Abnormal ECG Arrhythmia Arthritis Atrial fibrillation (CMS/HCC) COPD (chronic obstructive pulmonary disease) (CMS/HCC) Coronary artery disease Diabetes mellitus (CMS/HCC) GERD (gastroesophageal reflux disease) Hyperlipidemia Hypertension Macular degeneration Shortness of breath Family History Problem Relation Name Age of Onset No Known Problems Mother Social History Tobacco Use Smoking status: Former Types: Cigarettes Smokeless tobacco: Never Tobacco comments: Pt has already quit smoking. Since 2006 Vaping Use Vaping Use: Never used No Known Allergies ROS Musculoskeletal: Positive for arthritis and joint pain. All other systems reviewed and are negative. OBJECTIVE Visit Vitals BP 140/86 (BP Location: Left arm, Patient Position: Sitting) Pulse 91 Ht 1.753 m (5' 9 ) Wt 91.2 kg (201 lb) SpO2 96% BMI 29.68 kg/m??? Smoking Status Former BSA 2.11 m??? Medications: Current Outpatient Medications: aspirin 81 mg EC tablet, Take 81 mg by mouth in the morning., Disp: , Rfl: atorvastatin (Lipitor) 40 mg tablet, Take 1 tablet (40 mg) by mouth at bedtime for 92 doses., Disp: 30 tablet, Rfl: 3 cetirizine (ZyrTEC) 10 mg tablet, Take 10 mg by mouth in the morning., Disp: , Rfl: clopidogrel (Plavix) 75 mg tablet, Take 1 tablet (75 mg) by mouth in the morning., Disp: 90 tablet, Rfl: 3 glimepiride (Amaryl) 4 mg tablet, Take 4 mg by mouth before breakfast., Disp: , Rfl: magnesium oxide (Mag-Ox) 400 mg (241.3 mg magnesium) tablet, Take 1 tablet by mouth if needed in the morning and at bedtime., Disp: , Rfl: metFORMIN (Glucophage) 500 mg tablet, Take 500 mg by mouth with breakfast and with evening meal., Disp: , Rfl: metoprolol tartrate (Lopressor) 25 mg tablet, Take 1 tablet (25 mg) by mouth in the morning and at bedtime for 183 doses. (Patient taking differently: Take 12.5 mg by mouth in the morning and at bedtime.), Disp: 60 tablet, Rfl: 3 pantoprazole (ProtoNix) 40 mg EC tablet, Take 40 mg by mouth in the morning., Disp: , Rfl: potassium chloride CR (Klor-Con M20) 20 mEq ER tablet, Take 20 mEq by mouth if needed each day. Take with lasix, Disp: , Rfl: furosemide (Lasix) 40 mg tablet, Take 1 tablet (40 mg) by mouth if needed each day (for leg swelling, shortness of breath, weight gain)., Disp: 30 tablet, Rfl: 0 insulin glargine (Lantus) 100 unit/mL injection, Inject 20 Units under the skin in the morning and at bedtime for 184 doses. (Patient not taking: Reported on 10/03/2023), Disp: 10 mL, Rfl: 0 Physical Exam Constitutional: Appearance: Normal appearance. He is normal weight. HENT: Head: Normocephalic and atraumatic. Right Ear: External ear normal. Left Ear: External ear normal. Eyes: Extraocular Movements: Extraocular movements intact. Pupils: Pupils are equal, round, and reactive to light. Neck: Vascular: No carotid bruit. Cardiovascular: Rate and Rhythm: Normal rate and regular rhythm. Pulses: Normal pulses. Heart sounds: Normal heart sounds. Pulmonary: Effort: Pulmonary effort is normal. Breath sounds: Normal breath sounds. Abdominal: General: Bowel sounds are normal. Palpations: Abdomen is soft. Musculoskeletal: General: Normal range of m (more content not included)... [facility] Progress note 10-03-2023 Note Date & Type Note Facility 10-03-2023 Note Patient here for 6 m o follow up CAD and post-op afib. At last apt in Mar 2023, Dr. Ibarra made lasix and potassium PRN. Thinks he's taking them daily. Doesn't think he needs them. Patient is very rude in the office today and is upset that his wound keeps breaking open and starts bleeding . Said he won't call [facility] CT surgery because I don't know their number and they don't know who I am . I assured patient they would know who he is and he continues to believe he's just a number . Patient states Dr. Blackman has been treating him off and on with creams and antibiotics. He denies chest pain, SOB, lightheadedness/syncope, and palpitations. He has amiodarone on his medication list, which we do not have on file for him. States he thinks he went into afib post-op when wiping his butt s/p BM. Review of Systems Musculoskeletal: Positive for arthritis and joint pain. All other systems reviewed and are negative. [facility] Summary Purpose Family History No Family History Records FoundNo Family History Records Found Advance Directives No Advanced Directives Records FoundNo Advanced Directives Records Found Additional Source Comments (unrecognized sect ion and content) No Status Records FoundNo Status Records Found INFORMATION SOURCE (unrecogn ized section and content) DATE CREATED AUTHOR 01/09/2023 [facility] DATE CREATED AUTHOR 'Marianne BARKER 05/19/2024 [facility] FOR RECORDS PERTAINING TO PATIENTS WHO [...] BE BASED ON THE PRIMARY CLINICAL RECORDS. [employer] provides no warranty or guarantee of the accuracy or completeness of information in this document.
== END 2024-06-18 07:41 | disposition home or self-care (01) ==
LOC: VC 07:40
PROVIDERS: PCP Family Medicine; Visit Provider Family Medicine
DX: M25.552 Pain in left hip (principal); M16.12 Unilateral primary osteoarthritis, left hip; R60.0 Localized edema; R09.89 Other specified symptoms and signs involving the circulatory and respiratory systems
CPT/HCPCS: 73502; 93923; 93970

== ENCOUNTER 2024-06-18 09:13 | Outpatient (OUT) | payer MEDICARE, OTHER, SELFPAY ==
--- OUTSIDE RECORDS SUMMARY | 2024-06-18 09:19 | XMS_ITS | CCD ---
Author Organization [facility] Care Team Providers Care Signal Inspector Name Role Phone ANN Garza, DR LAMBERT [...] disease (4 sources) Atherosclerotic heart disease of [place] coronary artery with other forms of angina pectoris; Translations: [Atherosclerotic heart disease of [place] coronary artery without angina pectoris] Onset: 01-11-2023 [...] [facility] Facility Office Visiton 05-16-2024 Follow-up visit [id number] Chad Mckeon 1940 M Date Provider Department Center 05/16/2024 KEENAN EUGENE CARD [facility] Family History Problem Relation Age of Onset No Known Problems Mother Family Status - Relation Status Age at Mother Level of Service:36076 [place] OFFICE/OUTPATIENT ESTABLISHED LOW MDM 20 MIN Normal [facility] Office Visiton 10-03-2023 Follow-up visit [id number] Chad Mckeon 1940 M Date Provider Department Center 10/03/2023 CHRISTIAN RAMOS CARD [facility] Family History Problem Relation Age of Onset No Known Problems Mother Family Status - Relation Status Age at Mother Level of Service:02554 [place] OFFICE/OUTPATIENT ESTABLISHED MOD MDM 30 MIN Reason for Visit and Comments: Coronary Artery Disease [187] Atrial Fibrillation [80] Hypertension [003998] Normal [facility] CBC AUTO DIFFon 01-09-2023 BASO # 0.1 103/ul Normal 0.0-0.1 [facility] Comment on above: Performed By: #### C BC #### [facility] [address] [place] [address] Dr. Андрей Toledo Basophils/100 WBC (Bld) 0.8 % Normal 0.2-2.0 [facility] Comment on above: Performed By: #### C BC #### [facility] [address] [place] [address] Dr. Андрей Toledo EO # 0.1 103/ul Normal 0.0-0.7 [facility] Comment on above: Performed By: #### C BC #### [facility] [address] [place] [address] Dr. Андрей Toledo Eosinophils/100 WBC (Bld) 2.3 % Normal 0.9-7.0 [facility] Comment on above: Performed By: #### C BC #### [facility] [address] [place] [address] Dr. Андрей Toledo Erythrocyte distribution width (RBC) [Ratio] 13.0 % Normal 11.0-15.0 [facility] Comment on above: Performed By: #### C BC #### [facility] [address] [place] [address] Dr. Андрей Toledo Hematocrit (Bld) [Volume fraction] 38.4 % Critically low 42.0-54.0 [facility] Comment on above: Performed By: #### C BC #### [facility] [address] [place] [address] Dr. Андрей Toledo Hemoglobin (Bld) [Mass/Vol] 13.1 g/dL Critically low 14.0-18.0 [facility] Comment on above: Performed By: #### C BC #### [facility] [address] [place] [address] Dr. Андрей Toledo IG # 0.11 10e3/ul Critically high 0.00-0.03 [facility] Comment on above: Performed By: #### C BC #### [facility] [address] [place] [address] Dr. Андрей Toledo IG % 1.8 % Critically high 0.0-0.[address] [facility] Comment on above: Performed By: #### C BC #### [facility] [address] [place] [address] Dr. Андрей Toledo LYMPH # 1.3 103/ul Normal 1.2-3.8 [facility] Comment on above: Performed By: #### C BC #### [facility] [address] [place] [address] Dr. Андрей Toledo Lymphocytes/100 WBC (Bld) 22.2 % Normal 20.5-60.0 [facility] Comment on above: Performed By: #### C BC #### [facility] [address] [place] [address] Dr. Андрей Toledo MANUAL DIFF REQ NO Normal [facility] Comment on above: Performed By: #### C BC #### [facility] [address] [place] [address] Dr. Андрей Toledo MCH (RBC) [Entitic mass] 32.2 pg Normal 25.9-34.0 [facility] Comment on above: Performed By: #### C BC #### [facility] [address] [place] [address] Dr. Андрей Toledo MCHC (RBC) [Mass/Vol] 34.1 g/dL Normal 29.9-35.2 [facility] Comment on above: Performed By: #### C BC #### [facility] [address] [place] [address] Dr. Андрей Toledo MCV (RBC) [Entitic vol] 94.3 fL Critically high 80.0-94.0 [facility] Comment on above: Performed By: #### C BC #### [facility] [address] [place] [address] Dr. Андрей Toledo MONO # 0.9 103/ul Critically high 0.3-0.8 [facility] Comment on above: Performed By: #### C BC #### [facility] [address] [place] [address] Dr. Андрей Toledo Monocytes/100 WBC (Bld) 15.5 % Critically high 1.7-12.0 [facility] Comment on above: Performed By: #### C BC #### [facility] [address] [place] [address] Dr. Андрей Toledo NEUT # 3.4 103/ul Normal 1.4-6.5 [facility] Comment on above: Performed By: #### C BC #### [facility] [address] [place] [address] Dr. Андрей Toledo Neutrophils/100 WBC (Bld) 57.4 % Normal 43.0-75.0 [facility] Comment on above: Performed By: #### C BC #### [facility] [address] [place] [address] Dr. Андрей Toledo Platelet mean volume (Bld) [Entitic vol] 8.5 fL Critically low 9.5-13.5 [facility] Comment on above: Performed By: #### C BC #### [facility] [address] [place] [address] Dr. Андрей Toledo PLT 149 103/ul Critically low 150-450 [facility] Comment on above: Performed By: #### C BC #### [facility] [address] [address] [address] Андрей Toledo RBC 4.07 106/ul Critically low 4.70-6.10 [facility] Comment on above: Performed By: #### C BC #### [facility] [address] [place] [address] Dr. Андрей Toledo WBC 6.0 103/ul Normal 4.0-11.0 [facility] Comment on above: Performed By: #### C BC #### [facility] [address] [place] [address] Dr. Андрей Toledo PROF 14(COMP METB)on 023 Albumin [Mass/Vol] 2.9 g/dL Critically low 3.4-5.0 [facility] Comment on above: Performed By: #### C BC #### [facility] [address] [place] [address] Dr. Андрей Toledo Albumin/Globulin [Mass ratio] 0.9 {ratio} Normal [facility] Comment on above: Performed By: #### C BC #### [facility] [address] [place] [address] Dr. Андрей Toledo ALP [Catalytic activity/Vol] 93 U/L Normal 46-116 [facility] Comment on above: Performed By: #### C BC #### [facility] [address] [place] [address] Dr. Андрей Toledo ALT [Catalytic activity/Vol] 28 U/L Normal 16-63 [facility] Comment on above: Performed By: #### C BC #### [facility] [address] [place] [address] Dr. Андрей Toledo Anion gap [Moles/Vol] 14.9 mmol/L Normal [facility] Comment on above: Performed By: #### C BC #### [facility] [address] [address] [address] Андрей Toledo AST [Catalytic activity/Vol] 17 U/L Normal 15-37 [facility] Comment on above: Performed By: #### C BC #### [facility] [address] [address] [address] Андрей Toledo Bilirubin [Mass/Vol] 0.3 mg/dL Normal 0.2-1.0 [facility] Comment on above: Performed By: #### C BC #### [facility] [address] [address] [address] Андрей Toledo Calcium [Mass/Vol] 8.4 mg/dL Critically low 8.5-10.1 [facility] Comment on above: Performed By: #### C BC #### [facility] [address] [address] [address] Андрей Toledo Chloride [Moles/Vol] 106 mmol/L Normal 98-107 [facility] Comment on above: Performed By: #### C BC #### [facility] [address] [address] [address] Андрей Toledo CO2 [Moles/Vol] 26.5 mmol/L Normal 21.0-32.0 [facility] Comment on above: Performed By: #### C BC #### [facility] [address] [address] [address] Андрей Toledo Creatinine [Mass/Vol] 1.02 mg/dL Normal 0.70-1.30 [facility] Comment on above: Performed By: #### C BC #### [facility] [address] [address] [address] Андрей Toledo EGFR-AF UZBEK >60 Normal >=60 [facility] Comment on above: Performed By: #### C BC #### [facility] [address] [id number] [address] Андрей Toledo EGFR-NON AF UZBEK >60 Normal >=60 [facility] Comment on above: Performed By: #### C BC #### [facility] [address] [address] [address] Андрей Toledo Globulin (S) [Mass/Vol] 3.1 g/dL Normal [facility] Comment on above: Performed By: #### C BC #### [facility] [address] [place] [address] Dr. Андрей Toledo Glucose [Mass/Vol] 221 mg/dL Critically high 74-106 [facility] Comment on above: Performed By: #### C BC #### [facility] [address] [place] [address] Dr. Андрей Toledo Potassium [Moles/Vol] 4.4 mmol/L Normal 3.5-5.1 [facility] Comment on above: Performed By: #### C BC #### [facility] [address] [place] [address] Dr. Андрей Toledo Protein [Mass/Vol] 6.0 g/dL Critically low 6.4-8.2 [facility] Comment on above: Performed By: #### C BC #### [facility] [address] [place] [address] Dr. Андрей Toledo Sodium [Moles/Vol] 143 mmol/L Normal 136-145 [facility] Comment on above: Performed By: #### C BC #### [facility] [address] [place] [address] Dr. Андрей Toledo Urea nitrogen [Mass/Vol] 20.0 mg/dL Critically high 7.0-18.0 [facility] Comment on above: Performed By: #### C BC #### [facility] [address] [place] [address] Dr. Андрей Toledo Urea nitrogen/Creatinine [Mass ratio] 19.6 mg/mg Normal [facility] Comment on above: Performed By: #### C BC #### [facility] [address] [place] [address] Dr. Андрей Toledo PTT HEPARIN MONITORon 2022 aPTT Coag (Bld) [Time] 46.9 s Normal 39.5-54.2 [facility] Comment on above: Performed By: #### P TT, PT #### [facility] [address] [place] [address] Dr. Андрей Toledo BNPon 3 Natriuretic peptide B (Bld) [Mass/Vol] 192.0 pg/mL Normal <=1,800.0 [facility] Comment on above: Performed By: #### H STROPN, BNP, CMP #### [facility] [address] [place] [address] Dr. Андрей Toledo CARDIAC BEAU 3-6on 3 CK [Catalytic activity/Vol] 102 U/L Normal 39-308 [facility] Comment on above: Performed By: #### P TT, PT #### [facility] [address] [place] [address] Dr. Андрей Toledo CK.MB [Mass/Vol] 1.92 ng/mL Normal <=3.60 [facility] Comment on above: Performed By: #### P TT, PT #### [facility] [address] [place] [address] Dr. Андрей Toledo HSTROP 16.0 pg/mL Normal 4.0-76.1 [facility] Comment on above: Result Comment: CUT- OFF POINTS HAVE BEEN ESTABLISHED BASED ON THE FOURTH UNIVERSAL DEFINITIONS OF MYOCARDIAL INFARCTION. THE UPPER REFERENCE LIMIT (URL) OF TROPONIN, DEFINED THE 99TH PERCENTILE OF cTnI DISTRIBUTION IN A REFERENCE POPULATION, HAS BEEN CONFIRMED THE DECISION THRESHOLD FOR DE DIAGNOSIS. Performed By: #### P TT, PT #### [facility] [address] [place] [address] Dr. Андрей Toledo CK [Catalytic activity/Vol] 66 U/L Normal 39-308 [facility] Comment on above: Performed By: #### C MREP #### [facility] [address] [place] [address] Dr. Андрей Toledo CK.MB [Mass/Vol] 2.12 ng/mL Normal <=3.60 [facility] Comment on above: Performed By: #### C MREP #### [facility] [address] [place] [address] Dr. Андрей Toledo HSTROP 20.1 pg/mL Normal 4.0-76.1 [facility] Comment on above: Result Comment: CUT- OFF POINTS HAVE BEEN ESTABLISHED BASED ON THE FOURTH UNIVERSAL DEFINITIONS OF MYOCARDIAL INFARCTION. THE UPPER REFERENCE LIMIT (URL) OF TROPONIN, DEFINED THE 99TH PERCENTILE OF cTnI DISTRIBUTION IN A REFERENCE POPULATION, HAS BEEN CONFIRMED THE DECISION THRESHOLD FOR DE DIAGNOSIS. Performed By: #### C MREP #### [facility] [address] [place] [address] Dr. Андрей Toleod CBC AUTO DIFFon 01-08-2023 EO # 0.1 103/ul Normal 0.0-0.7 [facility] Comment on above: Performed By: #### C BC #### [facility] [address] [place] [address] Dr. Андрей Toledo Eosinophils/100 WBC (Bld) 1.9 % Normal 0.9-7.0 [facility] Comment on above: Performed By: #### C BC #### [facility] [address] [place] [address] Dr. Андрей Toledo Erythrocyte distribution width (RBC) [Ratio] 13.1 % Normal 11.0-15.0 [facility] Comment on above: Performed By: #### C BC #### [facility] [address] [place] [address] Dr. Андрей Toledo Hematocrit (Bld) [Volume fraction] 38.8 % Critically low 42.0-54.0 [facility] Comment on above: Performed By: #### C BC #### [facility] [address] [place] [address] Dr. Андрей Toledo Hemoglobin (Bld) [Mass/Vol] 13.0 g/dL Critically low 14.0-18.0 [facility] Comment on above: Performed By: #### C BC #### [facility] [address] [place] [address] Dr. Андрей Toledo IG # 0.05 10e3/ul Critically high 0.00-0.03 [facility] Comment on above: Performed By: #### C BC #### [facility] [address] [place] [address] Dr. Андрей Toledo IG % 0.7 % Critically high 0.0-0.5 [facility] Comment on above: Performed By: #### C BC #### [facility] [address] [place] [address] Dr. Андрей Toledo Lymphocytes/100 WBC (Bld) 23.2 % Normal 20.5-60.0 [facility] Comment on above: Performed By: #### C BC #### [facility] [address] [place] [address] Dr. Андрей Toledo MCH (RBC) [Entitic mass] 31.9 pg Normal 25.9-34.0 [facility] Comment on above: Performed By: #### C BC #### [facility] [address] [place] [address] Dr. Андрей Toledo MCV (RBC) [Entitic vol] 95.1 fL Critically high 80.0-94.0 [facility] Comment on above: Performed By: #### C BC #### [facility] [address] [place] [address] Dr. Андрей Toledo MONO # 0.9 103/ul Critically high 0.3-0.8 [facility] Comment on above: Performed By: #### C BC #### [facility] [address] [place] [address] Dr. Андрей Toledo Monocytes/100 WBC (Bld) 13.6 % Critically high 1.7-12.0 [facility] Comment on above: Performed By: #### C BC #### [facility] [address] [place] [address] Dr. Андрей Toledo NEUT # 4.1 103/ul Normal 1.4-6.5 [facility] Comment on above: Performed By: #### C BC #### [facility] [address] [place] [address] Dr. Андрей Toledo Neutrophils/100 WBC (Bld) 60.0 % Normal 43.0-75.0 [facility] Comment on above: Performed By: #### C BC #### [facility] [address] [place] [address] Dr. Андрей Toledo Platelet mean volume (Bld) [Entitic vol] 8.6 fL Critically low 9.5-13.5 [facility] Comment on above: Performed By: #### C BC #### [facility] [address] [address] [address] Андрей Toledo PLT 153 103/ul Normal 150-450 [facility] Comment on above: Performed By: #### C BC #### [facility] [address] [address] [address] Андрей Toledo RBC 4.08 106/ul Critically low 4.70-6.10 [facility] Comment on above: Performed By: #### C BC #### [facility] [address] [address] [address] Андрей Toledo BASO # 0.0 103/ul Normal 0.0-0.1 [facility] Comment on above: Performed By: #### C BC #### [facility] [address] [place] [address] Dr. Андрей Toledo Basophils/100 WBC (Bld) 0.6 % Normal 0.2-2.0 [facility] Comment on above: Performed By: #### C BC #### [facility] [address] [place] [address] Dr. Андрей Toledo EO # 0.2 103/ul Normal 0.0-0.7 [facility] Comment on above: Performed By: #### C BC #### [facility] [address] [place] [address] Dr. Андрей Toledo Eosinophils/100 WBC (Bld) 2.6 % Normal 0.9-7.0 [facility] Comment on above: Performed By: #### C BC #### [facility] [address] [address] [address] Андрей Toledo Erythrocyte distribution width (RBC) [Ratio] 12.9 % Normal 11.0-15.0 [facility] Comment on above: Performed By: #### C BC #### [facility] [address] [place] [address] Dr. Андрей Toledo Hematocrit (Bld) [Volume fraction] 37.9 % Critically low 42.0-54.0 [facility] Comment on above: Performed By: #### C BC #### [facility] [address] [address] [address] Андрей Toledo Hemoglobin (Bld) [Mass/Vol] 12.7 g/dL Critically low 14.0-18.0 [facility] Comment on above: Performed By: #### C BC #### [facility] [address] [address] [address] Андрей Toledo IG # 0.03 10e3/ul Normal 0.00-0.03 [facility] Comment on above: Performed By: #### C BC #### [facility] [address] [place] [address] Dr. Андрей Toledo IG % 0.4 % Normal 0.0-0.5 [facility] Comment on above: Performed By: #### C BC #### [facility] [address] [place] [address] Dr. Андрей Toledo LYMPH # 1.6 103/ul Normal 1.2-3.8 [facility] Comment on above: Performed By: #### C BC #### [facility] [address] [place] [address] Dr. Андрей Toledo Lymphocytes/100 WBC (Bld) 23.5 % Normal 20.5-60.0 [facility] Comment on above: Performed By: #### C BC #### [facility] [address] [place] [address] Dr. Андрей Toledo MANUAL DIFF REQ NO Normal [facility] Comment on above: Performed By: #### C BC #### [facility] [address] [place] [address] Dr. Андрей Toledo MCH (RBC) [Entitic mass] 31.8 pg Normal 25.9-34.0 [facility] Comment on above: Performed By: #### C BC #### [facility] [address] [place] [address] Dr. Андрей Toledo MCHC (RBC) [Mass/Vol] 33.5 g/dL Normal 29.9-35.2 [facility] Comment on above: Performed By: #### C BC #### [facility] [address] [address] [address] Андрей Toledo MCV (RBC) [Entitic vol] 95.0 fL Critically high 80.0-94.0 [facility] Comment on above: Performed By: #### C BC #### [facility] [address] [address] [address] Андрей Toledo MONO # 1.0 103/ul Critically high 0.3-0.8 [facility] Comment on above: Performed By: #### C BC #### [facility] [address] [address] [address] Андрей Toledo Monocytes/100 WBC (Bld) 14.8 % Critically high 1.7-12.0 [facility] Comment on above: Performed By: #### C BC #### [facility] [address] [place] [address] Dr. Андрей Toledo NEUT # 4.0 103/ul Normal 1.4-6.5 [facility] Comment on above: Performed By: #### C BC #### [facility] [address] [place] [address] Dr. Андрей Toledo Neutrophils/100 WBC (Bld) 58.1 % Normal 43.0-75.0 [facility] Comment on above: Performed By: #### C BC #### [facility] [address] [place] [address] Dr. Андрей Toledo Platelet mean volume (Bld) [Entitic vol] 8.3 fL Critically low 9.5-13.5 [facility] Comment on above: Performed By: #### C BC #### [facility] [address] [place] [address] Dr. Андрей Toledo PLT 145 103/ul Critically low 150-450 [facility] Comment on above: Performed By: #### C BC #### [facility] [address] [address] [address] Андрей Toledo RBC 3.99 106/ul Critically low 4.70-6.[address] [facility] Comment on above: Performed By: #### C BC #### [facility] [address] [place] [address] Dr. Андрей Toledo WBC 6.8 103/ul Normal 4.0-11.0 [facility] Comment on above: Performed By: #### C BC #### [facility] [address] [place] [address] Dr. Андрей Toledo [facility] SARS-CoV-2 (COVID-19) RNA CLAUDIA+probe Ql (Unsp spec) Not detected Normal NOT DETECTED [facility] Comment on above: Result Comment: THIS TEST IS NOT APPROVED BY THE FDA. IT HAS BEEN AUTHORIZED FOR USE UNDER AN EMERGENCY USE AUTHORIZATION. Performed By: #### C VDTB #### [facility] [address] [place] [address] Dr. Андрей Toledo LIPID PROFILEon 01-08-2023 CHOL-HDL RATIO NORM SEE BELOW Normal [facility] Comment on above: Result Comment: 3.3 - 4.4 LOW RISK 4.4 - 7.1 AVERAGE RISK 7.1 - 11.0 MODERATE RISK >11.0 HIGH RISK Performed By: #### C BC #### [facility] [address] [place] [address] Dr. Андрей Toledo Cholesterol [Mass/Vol] 183 mg/dL Normal <=200 [facility] Comment on above: Performed By: #### C BC #### [facility] [address] [place] [address] Dr. Андрей Toledo Cholesterol in HDL [Mass/Vol] 33 mg/dL Critically low 40-60 [facility] Comment on above: Performed By: #### C BC #### [facility] [address] [place] [address] Dr. Андрей Toledo Cholesterol in LDL [Mass/Vol] 90.8 mg/dL Normal [facility] Comment on above: Performed By: #### C BC #### [facility] [address] [place] [address] Dr. Андрей Toledo Cholesterol.total/C holesterol in HDL [Mass ratio] 5.5 {ratio} Normal [facility] Comment on above: Performed By: #### C BC #### [facility] [address] [address] [address] Андрей Toledo HDL NORMAL > or = 60 mg/dl - LO W CARDIOVASCULAR RISK <40 mg/dl - HIGH CARDIOVASCULAR RISK Normal [facility] Comment on above: Performed By: #### C BC #### [facility] [address] [address] [address] Андрей Toledo LDL CALC NORMAL SEE BELOW Normal [facility] Comment on above: Result Comment: <100 mg/dl OPTIMAL 100 - 129 mg/dl NEAR OR ABOVE OPTIMAL 130 - 159 mg/dl BORDERLINE HIGH 160 - 189 mg/dl HIGH >190 mg/dl VERY HIGH Performed By: #### C BC #### [facility] [address] [place] [address] Dr. Андрей Toledo Triglyceride [Mass/Vol] 296 mg/dL Critically high <=150 [facility] Comment on above: Performed By: #### C BC #### [facility] [address] [place] [address] Dr. Андрей Toledo VLDL CALC 59.2 mg/dL Normal [facility] Comment on above: Performed By: #### C BC #### [facility] [address] [place] [address] Dr. Андрей Toledo POINT OF CARE GLUCOSEon 12-25 Glucose [Mass/Vol] 160 mg/dL Critically high 74-106 [facility] Comment on above: Performed By: #### C BC #### [facility] [address] [place] [address] Dr. Андрей Toledo PROF 14(COMP METB)on 023 Albumin [Mass/Vol] 3.0 g/dL Critically low 3.4-5.0 [facility] Comment on above: Performed By: #### H STROPN, BNP, CMP #### [facility] [address] [place] [address] Dr. Андрей Toledo Albumin/Globulin [Mass ratio] 0.9 {ratio} Normal [facility] Comment on above: Performed By: #### H STROPN, BNP, CMP #### [facility] [address] [address] [address] Андрей Toledo ALP [Catalytic activity/Vol] 95 U/L Normal 46-116 [facility] Comment on above: Performed By: #### H STROPN, BNP, CMP #### [facility] [address] [address] [address] Андрей Toledo ALT [Catalytic activity/Vol] 24 U/L Normal 16-63 [facility] Comment on above: Performed By: #### H STROPN, BNP, CMP #### [facility] [address] [address] [address] Андрей Toledo Anion gap [Moles/Vol] 12.8 mmol/L Normal [facility] Comment on above: Performed By: #### H STROPN, BNP, CMP #### [facility] [address] [address] [address] Андрей Toledo AST [Catalytic activity/Vol] 12 U/L Critically low 15-37 [facility] Comment on above: Performed By: #### H STROPN, BNP, CMP #### [facility] [address] [address] [address] Андрей Toledo Bilirubin [Mass/Vol] 0.5 mg/dL Normal 0.2-1.0 [facility] Comment on above: Performed By: #### H STROPN, BNP, CMP #### [facility] [address] [address] [address] Андрей Toledo Calcium [Mass/Vol] 8.8 mg/dL Normal 8.5-10.1 [facility] Comment on above: Performed By: #### H STROPN, BNP, CMP #### [facility] [address] [address] [address] Андрей Toledo Chloride [Moles/Vol] 108 mmol/L Critically high 98-107 [facility] Comment on above: Performed By: #### H STROPN, BNP, CMP #### [facility] [address] [address] [address] Андрей Toledo CO2 [Moles/Vol] 29.2 mmol/L Normal 21.0-32.0 [facility] Comment on above: Performed By: #### H STROPN, BNP, CMP #### [facility] [address] [address] [address] Андрей Toledo Creatinine [Mass/Vol] 1.06 mg/dL Normal 0.70-1.30 [facility] Comment on above: Performed By: #### H STROPN, BNP, CMP #### [facility] [address] [address] [address] Андрей Toledo EGFR-AF UZBEK >60 Normal >=60 [facility] Comment on above: Performed By: #### H STROPN, BNP, CMP #### [facility] [address] [address] [address] Андрей Toledo EGFR-NON AF UZBEK >60 Normal >=60 [facility] Comment on above: Performed By: #### H STROPN, BNP, CMP #### [facility] [address] [address] [address] Андрей Toledo Globulin (S) [Mass/Vol] 3.3 g/dL Normal [facility] Comment on above: Performed By: #### H STROPN, BNP, CMP #### [facility] [address] [address] [address] Андрей Toledo Glucose [Mass/Vol] 155 mg/dL Critically high 74-106 [facility] Comment on above: Performed By: #### H STROPN, BNP, CMP #### [facility] [address] [address] [address] Андрей Toledo Potassium [Moles/Vol] 5.0 mmol/L Normal 3.5-5.1 [facility] Comment on above: Performed By: #### H STROPN, BNP, CMP #### [facility] [address] [address] [address] Андрей Toledo Protein [Mass/Vol] 6.3 g/dL Critically low 6.4-8.2 [facility] Comment on above: Performed By: #### H STROPN, BNP, CMP #### [facility] [address] [address] [address] Андрей Toledo Sodium [Moles/Vol] 145 mmol/L Normal 136-145 [facility] Comment on above: Performed By: #### H STROPN, BNP, CMP #### [facility] [address] [place] [address] Dr. Андрей Toledo Urea nitrogen [Mass/Vol] 25.0 mg/dL Critically high 7.0-18.0 [facility] Comment on above: Performed By: #### H STROPN, BNP, CMP #### [facility] [address] [place] [address] Dr. Андрей Toledo Urea nitrogen/Creatinine [Mass ratio] 23.6 mg/mg Normal [facility] Comment on above: Performed By: #### H STROPN, BNP, CMP #### [facility] [address] [place] [address] Dr. Андрей Toledo PROTIMEon 01-08-2023 INR Coag (PPP) [Relative time] 0.94 {INR} Normal [facility] Comment on above: Performed By: #### P TT, PT #### [facility] [address] [place] [address] Dr. Андрей Toledo INR GUIDELINES SEE BELOW Normal [facility] Comment on above: Result Comment: CAMMIE RED INR: 2.0 - 3.0 CONDITIONS NOT LISTED BELOW 2.5 - 3.5 FOR PROSTHETIC HEART VALVE REPLACEMENT 2.5 - 3.5 RECURRENT THROMBOSIS Performed By: #### P TT, PT #### [facility] [address] [place] [address] Dr. Андрей Toledo PT Coag (PPP) [Time] 10.0 s Normal 9.0-11.6 [facility] Comment on above: Performed By: #### P TT, PT #### [facility] [address] [place] [address] Dr. Андрей Toledo PTTon 01-08-2023 aPTT Coag (Bld) [Time] 27.5 s Normal 22.3-36.2 [facility] Comment on above: Performed By: #### P TT, PT #### [facility] [address] [place] [address] Dr. Андрей Toledo SYMPTOMATIC COVID-19 ANTIGEN on 01-08-2023 EUA Statement SEE BELOW Normal [facility] Comment on above: Result Comment: This test [...] Performed By: #### P TT, PT #### [facility] [address] [place] [address] Dr. Андрей Toledo SARS-CoV-2 (COVID-19) RNA CLAUDIA+probe Ql (Unsp spec) Negative Normal NEGATIVE [facility] Comment on above: Performed By: #### P TT, PT #### [facility] [address] [place] [address] Dr. Андрей Toledo T4on 01-08-2023 T4 [Mass/Vol] 6.20 ug/dL Normal 4.50-12.10 [facility] Comment on above: Performed By: #### P TT, PT #### [facility] [address] [place] [address] Dr. Андрей Toledo TROPONIN, HIGH SENSITIVITYon 01-08-2023 HSTROP 28.8 pg/mL Normal 4.0-76.1 [facility] Comment on above: Result Comment: CUT- OFF POINTS HAVE BEEN ESTABLISHED BASED ON THE FOURTH UNIVERSAL DEFINITIONS OF MYOCARDIAL INFARCTION. THE UPPER REFERENCE LIMIT (URL) OF TROPONIN, DEFINED THE 99TH PERCENTILE OF cTnI DISTRIBUTION IN A REFERENCE POPULATION, HAS BEEN CONFIRMED THE DECISION THRESHOLD FOR DE DIAGNOSIS. Performed By: #### H STROPN, BNP, CMP #### [facility] [address] [place] [address] Dr. Андрей Toledo TSHon 01-08-2023 TSH 2.888 uIU/mL Normal 0.358-3.740 [facility] Comment on above: Performed By: #### C BC #### [facility] [address] [place] [address] Dr. Андрей Toledo XR CHEST 1 Von [...] TIFFANY TORO Date: 2023-01-08 11:22 Normal [facility] T4 LABCORPon 02-02-2022 T4 [Mass/Vol] 7.5 ug/dL Normal 4.5-12.0 [facility] Comment on above: Performed By: #### T 4LC #### [facility] [address] [place] [address] Dr. Андрей Toledo BNPon 02-01-2022 Natriuretic peptide B (Bld) [Mass/Vol] 26.0 pg/mL Normal <=1,800.0 [facility] Comment on above: Performed By: #### P TT, PT #### [facility] [address] [address] [address] Андрей Toledo CBC AUTO DIFFon 02-01-2022 BASO # 0.1 103/ul Normal 0.0-0.1 [facility] Comment on above: Performed By: #### P TT, PT #### [facility] [address] [address] [address] Андрей Toledo Basophils/100 WBC (Bld) 0.6 % Normal 0.2-2.0 [facility] Comment on above: Performed By: #### P TT, PT #### [facility] [address] [place] [address] Dr. Андрей Toledo EO # 0.2 103/ul Normal 0.0-0.7 [facility] Comment on above: Performed By: #### P TT, PT #### [facility] [address] [place] [address] Dr. Андрей Toledo Eosinophils/100 WBC (Bld) 1.9 % Normal 0.9-7.0 [facility] Comment on above: Performed By: #### P TT, PT #### [facility] [address] [place] [address] Dr. Андрей Toledo Erythrocyte distribution width (RBC) [Ratio] 13.2 % Normal 11.0-15.0 [facility] Comment on above: Performed By: #### P TT, PT #### [facility] [address] [place] [address] Dr. Андрей Toledo Hematocrit (Bld) [Volume fraction] 42.7 % Normal 42.0-54.0 [facility] Comment on above: Performed By: #### P TT, PT #### [facility] [address] [place] [address] Dr. Андрей Toledo Hemoglobin (Bld) [Mass/Vol] 14.2 g/dL Normal 14.0-18.0 [facility] Comment on above: Performed By: #### P TT, PT #### [facility] [address] [place] [address] Dr. Андрей Toledo IG # 0.11 10e3/ul Critically high 0.00-0.03 [facility] Comment on above: Performed By: #### P TT, PT #### [facility] [address] [place] [address] Dr. Андрей Toledo IG % 1.4 % Critically high 0.0-0.[address] [facility] Comment on above: Performed By: #### P TT, PT #### [facility] [address] [place] [address] Dr. Андрей Toledo LYMPH # 1.6 103/ul Normal 1.2-3.8 [facility] Comment on above: Performed By: #### P TT, PT #### [facility] [address] [place] [address] Dr. Андрей Toledo Lymphocytes/100 WBC (Bld) 20.0 % Critically low 20.5-60.0 [facility] Comment on above: Performed By: #### P TT, PT #### [facility] [address] [place] [address] Dr. Андрей Toledo MANUAL DIFF REQ NO Normal [facility] Comment on above: Performed By: #### P TT, PT #### [facility] [address] [place] [address] Dr. Андрей Toledo MCH (RBC) [Entitic mass] 30.5 pg Normal 25.9-34.0 [facility] Comment on above: Performed By: #### P TT, PT #### [facility] [address] [place] [address] Dr. Андрей Toledo MCHC (RBC) [Mass/Vol] 33.3 g/dL Normal 29.9-35.2 [facility] Comment on above: Performed By: #### P TT, PT #### [facility] [address] [place] [address] Dr. Андрей Toledo MCV (RBC) [Entitic vol] 91.8 fL Normal 80.0-94.0 [facility] Comment on above: Performed By: #### P TT, PT #### [facility] [address] [place] [address] Dr. Андрей Toledo MONO # 1.0 103/ul Critically high 0.3-0.[address] [facility] Comment on above: Performed By: #### P TT, PT #### [facility] [address] [place] [address] Dr. Андрей Toledo Monocytes/100 WBC (Bld) 13.4 % Critically high 1.7-12.0 [facility] Comment on above: Performed By: #### P TT, PT #### [facility] [address] [place] [address] Dr. Андрей Toledo NEUT # 4.9 103/ul Normal 1.4-6.5 [facility] Comment on above: Performed By: #### P TT, PT #### [facility] [address] [place] [address] Dr. Андрей Toledo Neutrophils/100 WBC (Bld) 62.7 % Normal 43.0-75.0 [facility] Comment on above: Performed By: #### P TT, PT #### [facility] [address] [address] [address] Андрей Toledo Platelet mean volume (Bld) [Entitic vol] 8.8 fL Critically low 9.5-13.5 [facility] Comment on above: Performed By: #### P TT, PT #### [facility] [address] [address] [address] Андрей Toledo PLT 235 103/ul Normal 150-450 [facility] Comment on above: Performed By: #### P TT, PT #### [facility] [address] [address] [address] Андрей Toledo RBC 4.65 106/ul Critically low 4.70-6.[address] [facility] Comment on above: Performed By: #### P TT, PT #### [facility] [address] [place] [address] Dr. Андрей Toledo WBC 7.8 103/ul Normal 4.0-11.0 [facility] Comment on above: Performed By: #### P TT, PT #### [facility] [address] [address] [address] Андрей Toledo FREE THYROXINE INDEX T7on FTI 2.70 Normal 1.30-4.50 [facility] Comment on above: Performed By: #### P TT, PT #### [facility] [address] [place] [address] Dr. Андрей Toledo T3U 36.0 % Normal 33.0-40.0 [facility] Comment on above: Performed By: #### P TT, PT #### [facility] [address] [address] [address] Андрей Toledo T4 [Mass/Vol] 7.50 ug/dL Normal 4.50-12.10 [facility] Comment on above: Result Comment: T4 t esting performed by [facility] Performed By: #### P TT, PT #### [facility] [address] [address] [address] Андрей Toledo PROF 14(COMP METB)on 022 Albumin [Mass/Vol] 3.2 g/dL Critically low 3.4-5.0 [facility] Comment on above: Performed By: #### P TT, PT #### [facility] [address] [address] [address] Андрей Toledo Albumin/Globulin [Mass ratio] 0.8 {ratio} Normal [facility] Comment on above: Performed By: #### P TT, PT #### [facility] [address] [address] [address] Андрей Toledo ALP [Catalytic activity/Vol] 105 U/L Normal 46-116 [facility] Comment on above: Performed By: #### P TT, PT #### [facility] [address] [place] [address] Dr. Андрей Toledo ALT [Catalytic activity/Vol] 26 U/L Normal 16-63 [facility] Comment on above: Performed By: #### P TT, PT #### [facility] [address] [place] [address] Dr. Андрей Toledo Anion gap [Moles/Vol] 12.1 mmol/L Normal [facility] Comment on above: Performed By: #### P TT, PT #### [facility] [address] [place] [address] Dr. Андрей Toledo AST [Catalytic activity/Vol] 15 U/L Normal 15-37 [facility] Comment on above: Performed By: #### P TT, PT #### [facility] [address] [place] [address] Dr. Андрей Toledo Bilirubin [Mass/Vol] 0.4 mg/dL Normal 0.2-1.0 [facility] Comment on above: Performed By: #### P TT, PT #### [facility] [address] [address] [address] Андрей Toledo Calcium [Mass/Vol] 8.9 mg/dL Normal 8.5-10.1 [facility] Comment on above: Performed By: #### P TT, PT #### [facility] [address] [address] [address] Андрей Toledo Chloride [Moles/Vol] 103 mmol/L Normal 98-107 [facility] Comment on above: Performed By: #### P TT, PT #### [facility] [address] [address] [address] Андрей Toledo CO2 [Moles/Vol] 27.8 mmol/L Normal 21.0-32.0 [facility] Comment on above: Performed By: #### P TT, PT #### [facility] [address] [address] [address] Андрей Toledo Creatinine [Mass/Vol] 1.09 mg/dL Normal 0.70-1.30 [facility] Comment on above: Performed By: #### P TT, PT #### [facility] [address] [place] [address] Dr. Андрей Toledo EGFR-AF UZBEK >60 Normal >=60 [facility] Comment on above: Performed By: #### P TT, PT #### [facility] [address] [place] [address] Dr. Андрей Toledo EGFR-NON AF UZBEK >60 Normal >=60 [facility] Comment on above: Performed By: #### P TT, PT #### [facility] [address] [place] [address] Dr. Андрей Toledo Globulin (S) [Mass/Vol] 3.8 g/dL Normal [facility] Comment on above: Performed By: #### P TT, PT #### [facility] [address] [address] [address] Андрей Toledo Glucose [Mass/Vol] 206 mg/dL Critically high 74-106 [facility] Comment on above: Performed By: #### P TT, PT #### [facility] [address] [address] [address] Андрей Toledo Potassium [Moles/Vol] 4.9 mmol/L Normal 3.5-5.1 [facility] Comment on above: Performed By: #### P TT, PT #### [facility] [address] [address] [address] Андрей Toledo Protein [Mass/Vol] 7.0 g/dL Normal 6.4-8.2 [facility] Comment on above: Performed By: #### P TT, PT #### [facility] [address] [place] [address] Dr. Андрей Toledo Sodium [Moles/Vol] 138 mmol/L Normal 136-145 [facility] Comment on above: Performed By: #### P TT, PT #### [facility] [address] [address] [address] Андрей Toledo Urea nitrogen [Mass/Vol] 25.0 mg/dL Critically high 7.0-18.0 [facility] Comment on above: Performed By: #### P TT, PT #### [facility] [address] [place] [address] Dr. Андрей Toledo Urea nitrogen/Creatinine [Mass ratio] 22.9 mg/mg Normal [facility] Comment on above: Performed By: #### P TT, PT #### [facility] [address] [place] [address] Dr. Андрей Toledo TSHon 02-01-2022 TSH 1.928 uIU/mL Normal 0.358-3.740 [facility] Comment on above: Performed By: #### P TT, PT #### [facility] [address] [place] [address] Dr. Андрей Toledo TSH RANGE SEE BELOW Normal [facility] Comment on above: Result Comment: <0.3 4 UIU/ml HYPERTHYROID 0.34-5.60 UIU/ml EUTHYROID >5.60 UIU/ml HYPOTHYROID Performed By: #### P TT, PT #### [facility] [address] [place] [address] Dr. Андрей Toledo Encounters Encounter Date Encounter Type Care Provider Facility Start: 05-16-2024 End: 05-16-2024 ambulatory [facility] Start: 10-03-2023 End: 10-03-2023 ambulatory [facility] Start: 01-08-2023 End: 01-09-[address] FAUSTO BLACKMAN . Facility: Start: 02-01-2022 End: 02-02-[address] FAUSTO BLACKMAN . Facility: Payers Date Payer Category Payer Medicare [id number] 1958 Private Health Insurance [id number] 1940 Unknown [id number] 1940 Unknown [id number] Progress note 05-16-2024 Note Date & Type Note Facility 05-16-2024 Note Coronary artery dise ase is unchanged. Continue GDMT- ASA, plavix, metoprolol, lipitor Continue heart healthy diet and regular exercise Continue current treatment regimen. Continue current medications. Cardiac status will be reassessed in 6 months. [facility] Progress note 05-16-2024 Note Date & Type [...] ALP 123, AST 16, ALT 23 Pro [id number]- normal TSH 5.227= elevated, Free T4 1.24 [...] function. Doppler sung (more content not included)... [facility] Progress note 05-16-2024 Note Date & Type Note Facility 05-16-2024 Note Pt is here for a six month follow up. Pt denies sob, chest pain, palpatations. Review of Systems All other systems reviewed and are negative. 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 [facility] Progress note 10-03-2023 Note Date & Type [...] starts bleeding . Said he won't call [facility] CT surgery because I don't know [...] All other systems reviewed and are negative. [facility] Summary Purpose Family History No Family History Records FoundNo Family History Records Found Advance Directives No Advanced Directives Records FoundNo Advanced Directives Records Found Additional Source Comments (unrecognized sect ion and content) No Status Records FoundNo Status Records Found INFORMATION SOURCE (unrecogn ized section and content) DATE CREATED AUTHOR 01/09/2023 [facility] DATE CREATED AUTHOR 'Marianne BARKER 05/19/2024 [facility] FOR RECORDS PERTAINING TO PATIENTS WHO [...] BE BASED ON THE PRIMARY CLINICAL RECORDS. [employer] provides no warranty or guarantee of the accuracy or completeness of information in this document.
--- NOTE | 2024-06-18 09:40 | XR_ITS ---
The [address] [address] Patient Name: FRANCISCO TIDWELL MRN: [id number] date: 1940 Sex: M Assigned Patient Location: [facility] Current Patient Location: Accession/Order Number: [id number] Exam Date: 06/18/2024 09:30 Report Date: 06/22/2024 07:02 At the request of: FAUSTO JUAREZ Procedure: XR hip LT 2V w/ pelvis PROCEDURE: XR hip LT 2V w/ pelvis HISTORY: Hyperlipidemia E78.5 ; chronic left hip pain COMPARISON: None. FINDINGS: BONES:Complete loss of the left hip joint space with [id number] articulation, prominent subchondral cysts within the acetabulum and femoral head, degenerative osteophytes along the articular margin, and remodeling of the femoral head. SOFT TISSUES:No visible soft tissue swelling. EFFUSION:None visible. OTHER: Negative. XR/XR hip LT 2V w/ pelvis IMPRESSION: 1. 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 Electronically authenticated by: RHONDA GOMEZ Date: 06/22/2024 07:02
== END 2024-06-18 09:14 | disposition home or self-care (01) ==
LOC: RAD 09:16
PROVIDERS: PCP Family Medicine; Visit Provider Family Medicine
DX: E78.5 Hyperlipidemia, unspecified (principal); M25.552 Pain in left hip; M16.12 Unilateral primary osteoarthritis, left hip
CPT/HCPCS: 73502

== ENCOUNTER 2024-07-14 12:07 | Day surgery (SDC) | payer MEDICARE, OTHER, SELFPAY ==
--- NOTE | 2024-07-14 12:16 | FL_ITS ---
The [address] [address] Patient Name: FRANCISCO TIDWELL MRN: [id number] date: 1940 Sex: M Assigned Patient Location: [place] Current Patient Location: Accession/Order Number: [id number] Exam Date: 07/14/2024 13:10 Report Date: 07/15/2024 05:01 At the request of: FAUSTO JUAREZ Procedure: FL hip inj LT EXAMINATION: FL hip inj LT HISTORY: Left Hip Pain FLUORO DOSE: Cannot be calculated mGy Reference air kerma (Ka,r) COMPARISON: No relevant comparison available. TECHNIQUE: An arthrogram was performed under fluoroscopic guidance using non-ionic contrast material in the usual sterile manner after obtaining informed consent. Standard level fluoroscopic mode of operation utilized. FINDINGS: JOINT: Left hip NEEDLE: 25 gauge, 3.5 spinal needle. MEDICATION: 2 mL buffered 1% lidocaine for subcutaneous anesthesia. 2 mL Omnipaque-240 iodinated contrast to visualize the joint space. 40 mg Kenalog, 2 mL 0.5% bupivacaine, and 3 mL Omnipaque 240 injected into the joint space. TECHNIQUE: Anterior approach with prior localization of the femoral artery. A single stick was successful in gaining access to the joint space. CLINICAL: Improvement of joint pain post injection. COMPLICATIONS: None. OTHER: Negative. FL/FL hip inj LT IMPRESSION: 1. Technically successful left hip injection. Electronically authenticated by: RHONDA GOMEZ Date: 07/15/2024 05:01
--- OUTSIDE RECORDS SUMMARY | 2024-07-14 12:29 | XMS_ITS | CCD ---
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 Name Role Phone ANN Garza, DR LAMBERT [...] disease (4 sources) Atherosclerotic heart disease of [place] coronary artery with other forms of angina pectoris; Translations: [Atherosclerotic heart disease of [place] coronary artery without angina pectoris] Onset: 01-11-2023 [...] Range Facility Office Visiton 05-16-2024 Follow-up visit [id number] Chad Mckeon 1940 M Date Provider Department Center 05/16/2024 KEENAN EUGENE CARD [facility] Family History Problem Relation Age of Onset No Known Problems Mother Family Status - Relation Status Age at Mother Level of Service:63342 CT OFFICE/OUTPATIENT ESTABLISHED LOW MDM 20 MIN Normal [facility] Office Visiton 10-03-2023 Follow-up visit [id number] Chad Mckeon 1940 M Date Provider Department Center 10/03/2023 CHRISTIAN RAMOS CARD [facility] Family History Problem Relation Age of Onset No Known Problems Mother Family Status - Relation Status Age at Mother Level of Service:12513 CT OFFICE/OUTPATIENT ESTABLISHED MOD MDM 30 MIN Reason for Visit and Comments: Coronary Artery Disease [187] Atrial Fibrillation [80] Hypertension [627283] Normal [facility] CBC AUTO DIFFon 01-09-2023 BASO # 0.1 103/ul Normal 0.0-0.1 [facility] Comment on above: Performed By: #### C BC #### [facility] [address] [place] [address] Dr. Андрей Toledo Basophils/100 WBC (Bld) 0.8 % Normal 0.2-2.0 [facility] Comment on above: Performed By: #### C BC #### [facility] [address] [place] [address] Dr. Андрей Toledo EO # 0.1 103/ul Normal 0.0-0.7 [facility] Comment on above: Performed By: #### C BC #### [facility] [address] [place] [address] Dr. Андрей Toledo Eosinophils/100 WBC (Bld) 2.3 % Normal 0.9-7.0 [facility] Comment on above: Performed By: #### C BC #### [facility] [address] [place] [address] Dr. Андрей Toledo Erythrocyte distribution width (RBC) [Ratio] 13.0 % Normal 11.0-15.0 [facility] Comment on above: Performed By: #### C BC #### [facility] [address] [place] [address] Dr. Андрей Toledo Hematocrit (Bld) [Volume fraction] 38.4 % Critically low 42.0-54.0 [facility] Comment on above: Performed By: #### C BC #### [facility] [address] [place] [address] Dr. Андрей Toledo Hemoglobin (Bld) [Mass/Vol] 13.1 g/dL Critically low 14.0-18.0 [facility] Comment on above: Performed By: #### C BC #### [facility] [address] [place] [address] Dr. Андрей Toledo IG # 0.11 10e3/ul Critically high 0.00-0.03 [facility] Comment on above: Performed By: #### C BC #### [facility] [address] [place] [address] Dr. Андрей Toledo IG % 1.8 % Critically high 0.0-0.[address] [facility] Comment on above: Performed By: #### C BC #### [facility] [address] [place] [address] Dr. Андрей Toledo LYMPH # 1.3 103/ul Normal 1.2-3.[address] [facility] Comment on above: Performed By: #### C BC #### [facility] [address] [place] [address] Dr. Андрей Toledo Lymphocytes/100 WBC (Bld) 22.2 % Normal 20.5-60.0 [facility] Comment on above: Performed By: #### C BC #### [facility] [address] [place] [address] Dr. Андрей Toledo MANUAL DIFF REQ NO Normal [facility] Comment on above: Performed By: #### C BC #### [facility] [address] [place] [address] Dr. Андрей Toledo MCH (RBC) [Entitic mass] 32.2 pg Normal 25.9-34.0 [facility] Comment on above: Performed By: #### C BC #### [facility] [address] [place] [address] Dr. Андрей Toledo MCHC (RBC) [Mass/Vol] 34.1 g/dL Normal 29.9-35.2 [facility] Comment on above: Performed By: #### C BC #### [facility] [address] [place] [address] Dr. Андрей Toledo MCV (RBC) [Entitic vol] 94.3 fL Critically high 80.0-94.0 [facility] Comment on above: Performed By: #### C BC #### [facility] [address] [place] [address] Dr. Андрей Toledo MONO # 0.9 103/ul Critically high 0.3-0.8 [facility] Comment on above: Performed By: #### C BC #### [facility] [address] [place] [address] Dr. Андрей Toledo Monocytes/100 WBC (Bld) 15.5 % Critically high 1.7-12.0 [facility] Comment on above: Performed By: #### C BC #### [facility] [address] [place] [address] Dr. Андрей Toledo NEUT # 3.4 103/ul Normal 1.4-6.[address] [facility] Comment on above: Performed By: #### C BC #### [facility] [address] [place] [address] Dr. Андрей Toledo Neutrophils/100 WBC (Bld) 57.4 % Normal 43.0-75.[address] [facility] Comment on above: Performed By: #### C BC #### [facility] [address] [place] [address] Dr. Андрей Toledo Platelet mean volume (Bld) [Entitic vol] 8.5 fL Critically low 9.5-13.5 [facility] Comment on above: Performed By: #### C BC #### [facility] [address] [place] [address] Dr. Андрей Toledo PLT 149 103/ul Critically low 150-450 [facility] Comment on above: Performed By: #### C BC #### [facility] [address] [address] [address] Андрей Toledo RBC 4.07 106/ul Critically low 4.70-6.10 [facility] Comment on above: Performed By: #### C BC #### [facility] [address] [place] [address] Dr. Андрей Toledo WBC 6.0 103/ul Normal 4.0-11.0 [facility] Comment on above: Performed By: #### C BC #### [facility] [address] [place] [address] Dr. Андрей Toledo PROF 14(COMP METB)on 023 Albumin [Mass/Vol] 2.9 g/dL Critically low 3.4-5.0 [facility] Comment on above: Performed By: #### C BC #### [facility] [address] [place] [address] Dr. Андрей Toledo Albumin/Globulin [Mass ratio] 0.9 {ratio} Normal [facility] Comment on above: Performed By: #### C BC #### [facility] [address] [place] [address] Dr. Андрей Toledo ALP [Catalytic activity/Vol] 93 U/L Normal 46-116 [facility] Comment on above: Performed By: #### C BC #### [facility] [address] [place] [address] Dr. Андрей Toledo ALT [Catalytic activity/Vol] 28 U/L Normal 16-63 [facility] Comment on above: Performed By: #### C BC #### [facility] [address] [place] [address] Dr. Андрей Toledo Anion gap [Moles/Vol] 14.9 mmol/L Normal [facility] Comment on above: Performed By: #### C BC #### [facility] [address] [address] [address] Андрей Toledo AST [Catalytic activity/Vol] 17 U/L Normal 15-37 [facility] Comment on above: Performed By: #### C BC #### [facility] [address] [address] [address] Андрей Toledo Bilirubin [Mass/Vol] 0.3 mg/dL Normal 0.2-1.0 [facility] Comment on above: Performed By: #### C BC #### [facility] [address] [address] [address] Андрей Toledo Calcium [Mass/Vol] 8.4 mg/dL Critically low 8.5-10.1 [facility] Comment on above: Performed By: #### C BC #### [facility] [address] [address] [address] Андрей Toledo Chloride [Moles/Vol] 106 mmol/L Normal 98-107 [facility] Comment on above: Performed By: #### C BC #### [facility] [address] [address] [address] Андрей Toledo CO2 [Moles/Vol] 26.5 mmol/L Normal 21.0-32.0 [facility] Comment on above: Performed By: #### C BC #### [facility] [address] [address] [address] Андрей Toledo Creatinine [Mass/Vol] 1.02 mg/dL Normal 0.70-1.30 [facility] Comment on above: Performed By: #### C BC #### [facility] [address] [address] [address] Андрей Toledo EGFR-AF ANGUILLAN >60 Normal >=60 [facility] Comment on above: Performed By: #### C BC #### [facility] [id number] Андрей Toledo EGFR-NON AF ANGUILLAN >60 Normal >=60 [facility] Comment on above: Performed By: #### C BC #### [facility] [address] [address] [address] Андрей Toledo Globulin (S) [Mass/Vol] 3.1 g/dL Normal [facility] Comment on above: Performed By: #### C BC #### [facility] [address] [place] [address] Dr. Андрей Toledo Glucose [Mass/Vol] 221 mg/dL Critically high 74-106 T [facility] Comment on above: Performed By: #### C BC #### [facility] [address] [place] [address] Dr. Андрей Toledo Potassium [Moles/Vol] 4.4 mmol/L Normal 3.5-5.1 [facility] Comment on above: Performed By: #### C BC #### [facility] [address] [place] [address] Dr. Андрей Toledo Protein [Mass/Vol] 6.0 g/dL Critically low 6.4-8.2 Th [facility] Comment on above: Performed By: #### C BC #### [facility] [address] [place] [address] Dr. Андрей Toledo Sodium [Moles/Vol] 143 mmol/L Normal 136-145 [facility] Comment on above: Performed By: #### C BC #### [facility] [address] [place] [address] Dr. Андрей Toledo Urea nitrogen [Mass/Vol] 20.0 mg/dL Critically high 7.0-18.0 [facility] Comment on above: Performed By: #### C BC #### [facility] [address] [place] [address] Dr. Андрей Toledo Urea nitrogen/Creatinine [Mass ratio] 19.6 mg/mg Normal [facility] Comment on above: Performed By: #### C BC #### [facility] [address] [place] [address] Dr. Андрей Toledo PTT HEPARIN MONITORon 2022 aPTT Coag (Bld) [Time] 46.9 s Normal 39.5-54.2 [facility] Comment on above: Performed By: #### P TT, PT #### [facility] [address] [place] [address] Dr. Андрей Toledo BNPon 3 Natriuretic peptide B (Bld) [Mass/Vol] 192.0 pg/mL Normal <=1,800.0 [facility] Comment on above: Performed By: #### H STROPN, BNP, CMP #### [facility] [address] [place] [address] Dr. Андрей Toledo CARDIAC BEAU 3-6on 3 CK [Catalytic activity/Vol] 102 U/L Normal 39-[address] [facility] Comment on above: Performed By: #### P TT, PT #### [facility] [address] [place] [address] Dr. Андрей Toledo CK.MB [Mass/Vol] 1.92 ng/mL Normal <=3.60 [facility] Comment on above: Performed By: #### P TT, PT #### [facility] [address] [place] [address] Dr. Андрей Toledo HSTROP 16.0 pg/mL Normal 4.0-76.[address] [facility] Comment on above: Result Comment: CUT- OFF POINTS HAVE BEEN ESTABLISHED BASED ON THE FOURTH UNIVERSAL DEFINITIONS OF MYOCARDIAL INFARCTION. THE UPPER REFERENCE LIMIT (URL) OF TROPONIN, DEFINED THE 99TH PERCENTILE OF cTnI DISTRIBUTION IN A REFERENCE POPULATION, HAS BEEN CONFIRMED THE DECISION THRESHOLD FOR [place] DIAGNOSIS. Performed By: #### P TT, PT #### [facility] [address] [place] [address] Dr. Андрей Toledo CK [Catalytic activity/Vol] 66 U/L Normal 39-[address] [facility] Comment on above: Performed By: #### C MREP #### [facility] [address] [place] [address] Dr. Андрей Toledo CK.MB [Mass/Vol] 2.12 ng/mL Normal <=3.60 [facility] Comment on above: Performed By: #### C MREP #### [facility] [address] [place] [address] Dr. Андрей Toledo HSTROP 20.1 pg/mL Normal 4.0-76.1 [facility] Comment on above: Result Comment: CUT- OFF POINTS HAVE BEEN ESTABLISHED BASED ON THE FOURTH UNIVERSAL DEFINITIONS OF MYOCARDIAL INFARCTION. THE UPPER REFERENCE LIMIT (URL) OF TROPONIN, DEFINED THE 99TH PERCENTILE OF cTnI DISTRIBUTION IN A REFERENCE POPULATION, HAS BEEN CONFIRMED THE DECISION THRESHOLD FOR [place] DIAGNOSIS. Performed By: #### C MREP #### [facility] [address] [place] [address] Dr. Андрей Toledo CBC AUTO DIFFon 01-08-2023 EO # 0.1 103/ul Normal 0.0-0.7 [facility] Comment on above: Performed By: #### C BC #### [facility] [address] [place] [address] Dr. Андрей Toledo Eosinophils/100 WBC (Bld) 1.9 % Normal 0.9-7.0 [facility] Comment on above: Performed By: #### C BC #### [facility] [address] [place] [address] Dr. Андрей Toledo Erythrocyte distribution width (RBC) [Ratio] 13.1 % Normal 11.0-15.0 [facility] Comment on above: Performed By: #### C BC #### [facility] [address] [place] [address] Dr. Андрей Toledo Hematocrit (Bld) [Volume fraction] 38.8 % Critically low 42.0-54.0 [facility] Comment on above: Performed By: #### C BC #### [facility] [address] [place] [address] Dr. Андрей Toledo Hemoglobin (Bld) [Mass/Vol] 13.0 g/dL Critically low 14.0-18.0 [facility] Comment on above: Performed By: #### C BC #### [facility] [address] [place] [address] Dr. Андрей Toledo IG # 0.05 10e3/ul Critically high 0.00-0.03 [facility] Comment on above: Performed By: #### C BC #### [facility] [address] [place] [address] Dr. Андрей Toledo IG % 0.7 % Critically high 0.0-0.5 [facility] Comment on above: Performed By: #### C BC #### [facility] [address] [place] [address] Dr. Андрей Toledo Lymphocytes/100 WBC (Bld) 23.2 % Normal 20.5-60.0 [facility] Comment on above: Performed By: #### C BC #### [facility] [address] [place] [address] Dr. Андрей Toledo MCH (RBC) [Entitic mass] 31.9 pg Normal 25.9-34.0 [facility] Comment on above: Performed By: #### C BC #### [facility] [address] [place] [address] Dr. Андрей Toledo MCV (RBC) [Entitic vol] 95.1 fL Critically high 80.0-94.0 [facility] Comment on above: Performed By: #### C BC #### [facility] [address] [place] [address] Dr. Андрей Toledo MONO # 0.9 103/ul Critically high 0.3-0.8 [facility] Comment on above: Performed By: #### C BC #### [facility] [address] [place] [address] Dr. Андрей Toledo Monocytes/100 WBC (Bld) 13.6 % Critically high 1.7-12.0 [facility] Comment on above: Performed By: #### C BC #### [facility] [address] [place] [address] Dr. Андрей Toledo NEUT # 4.1 103/ul Normal 1.4-6.[address] [facility] Comment on above: Performed By: #### C BC #### [facility] [address] [place] [address] Dr. Андрей Toledo Neutrophils/100 WBC (Bld) 60.0 % Normal 43.0-75.[address] [facility] Comment on above: Performed By: #### C BC #### [facility] [address] [place] [address] Dr. Андрей Toledo Platelet mean volume (Bld) [Entitic vol] 8.6 fL Critically low 9.5-13.5 [facility] Comment on above: Performed By: #### C BC #### [facility] [address] [address] [address] Андрей Toledo PLT 153 103/ul Normal 150-[address] [facility] Comment on above: Performed By: #### C BC #### [facility] [address] [address] [address] Андрей Toledo RBC 4.08 106/ul Critically low 4.70-6.10 [facility] Comment on above: Performed By: #### C BC #### [facility] [address] [address] [address] Андрей Toledo BASO # 0.0 103/ul Normal 0.0-0.1 [facility] Comment on above: Performed By: #### C BC #### [facility] [address] [place] [address] Dr. Андрей Toledo Basophils/100 WBC (Bld) 0.6 % Normal 0.2-2.0 [facility] Comment on above: Performed By: #### C BC #### [facility] [address] [place] [address] Dr. Андрей Toledo EO # 0.2 103/ul Normal 0.0-0.7 [facility] Comment on above: Performed By: #### C BC #### [facility] [address] [place] [address] Dr. Андрей Toledo Eosinophils/100 WBC (Bld) 2.6 % Normal 0.9-7.0 [facility] Comment on above: Performed By: #### C BC #### [facility] [address] [address] [address] Андрей Toledo Erythrocyte distribution width (RBC) [Ratio] 12.9 % Normal 11.0-15.0 [facility] Comment on above: Performed By: #### C BC #### [facility] [address] [place] [address] Dr. Андрей Toledo Hematocrit (Bld) [Volume fraction] 37.9 % Critically low 42.0-54.[address] [facility] Comment on above: Performed By: #### C BC #### [facility] [address] [address] [address] Андрей Toledo Hemoglobin (Bld) [Mass/Vol] 12.7 g/dL Critically low 14.0-18.0 [facility] Comment on above: Performed By: #### C BC #### [facility] [address] [address] [address] Андрей Toledo IG # 0.03 10e3/ul Normal 0.00-0.03 [facility] Comment on above: Performed By: #### C BC #### [facility] [address] [place] [address] Dr. Андрей Toledo IG % 0.4 % Normal 0.0-0.5 [facility] Comment on above: Performed By: #### C BC #### [facility] [address] [place] [address] Dr. Андрей Toledo LYMPH # 1.6 103/ul Normal 1.2-3.8 [facility] Comment on above: Performed By: #### C BC #### [facility] [address] [place] [address] Dr. Андрей Toledo Lymphocytes/100 WBC (Bld) 23.5 % Normal 20.5-60.0 [facility] Comment on above: Performed By: #### C BC #### [facility] [address] [place] [address] Dr. Андрей Toledo MANUAL DIFF REQ NO Normal [facility] Comment on above: Performed By: #### C BC #### [facility] [address] [place] [address] Dr. Андрей Toledo MCH (RBC) [Entitic mass] 31.8 pg Normal 25.9-34.0 [facility] Comment on above: Performed By: #### C BC #### [facility] [address] [place] [address] Dr. Андрей Toledo MCHC (RBC) [Mass/Vol] 33.5 g/dL Normal 29.9-35.2 [facility] Comment on above: Performed By: #### C BC #### [facility] [address] [address] [address] Андрей Toledo MCV (RBC) [Entitic vol] 95.0 fL Critically high 80.0-94.0 [facility] Comment on above: Performed By: #### C BC #### [facility] [address] [address] [address] Андрей Toledo MONO # 1.0 103/ul Critically high 0.3-0.8 [facility] Comment on above: Performed By: #### C BC #### [facility] [address] [address] [address] Андрей Toledo Monocytes/100 WBC (Bld) 14.8 % Critically high 1.7-12.0 [facility] Comment on above: Performed By: #### C BC #### [facility] [address] [place] [address] Dr. Андрей Toledo NEUT # 4.0 103/ul Normal 1.4-6.5 [facility] Comment on above: Performed By: #### C BC #### [facility] [address] [place] [address] Dr. Андрей Toledo Neutrophils/100 WBC (Bld) 58.1 % Normal 43.0-75.0 [facility] Comment on above: Performed By: #### C BC #### [facility] [address] [place] [address] Dr. Андрей Toledo Platelet mean volume (Bld) [Entitic vol] 8.3 fL Critically low 9.5-13.5 [facility] Comment on above: Performed By: #### C BC #### [facility] [address] [place] [address] Dr. Андрей Toledo PLT 145 103/ul Critically low 150-450 [facility] Comment on above: Performed By: #### C BC #### [facility] [address] [address] [address] Андрей Toledo RBC 3.99 106/ul Critically low 4.70-6.[address] [facility] Comment on above: Performed By: #### C BC #### [facility] [address] [place] [address] Dr. Андрей Toledo WBC 6.8 103/ul Normal 4.0-11.0 [facility] Comment on above: Performed By: #### C BC #### [facility] [address] [place] [address] Dr. Андрей Toledo [facility]25 SARS-CoV-2 (COVID-19) RNA CLAUDIA+probe Ql (Unsp spec) Not detected Normal NOT DETECTED [facility] Comment on above: Result Comment: THIS TEST IS NOT APPROVED BY THE FDA. IT HAS BEEN AUTHORIZED FOR USE UNDER AN EMERGENCY USE AUTHORIZATION. Performed By: #### C VDTB #### [facility] [address] [place] [address] Dr. Андрей Toledo LIPID PROFILEon 01-08-2023 CHOL-HDL RATIO NORM SEE BELOW Normal [facility] Comment on above: Result Comment: 3.3 - 4.4 LOW RISK 4.4 - 7.1 AVERAGE RISK 7.1 - 11.0 MODERATE RISK >11.0 HIGH RISK Performed By: #### C BC #### [facility] [address] [place] [address] Dr. Андрей Toledo Cholesterol [Mass/Vol] 183 mg/dL Normal <=200 [facility] Comment on above: Performed By: #### C BC #### [facility] [address] [place] [address] Dr. Андрей Toledo Cholesterol in HDL [Mass/Vol] 33 mg/dL Critically low 40-60 [facility] Comment on above: Performed By: #### C BC #### [facility] [address] [place] [address] Dr. Андрей Toledo Cholesterol in LDL [Mass/Vol] 90.8 mg/dL Normal [facility] Comment on above: Performed By: #### C BC #### [facility] [address] [place] [address] Dr. Андрей Toledo Cholesterol.total/C holesterol in HDL [Mass ratio] 5.5 {ratio} Normal [facility] Comment on above: Performed By: #### C BC #### [facility] [address] [address] [address] Андрей Toledo HDL NORMAL > or = 60 mg/dl - LO W CARDIOVASCULAR RISK <40 mg/dl - HIGH CARDIOVASCULAR RISK Normal [facility] Comment on above: Performed By: #### C BC #### [facility] [address] [address] [address] Андрей Toledo LDL CALC NORMAL SEE BELOW Normal [facility] Comment on above: Result Comment: <100 mg/dl OPTIMAL 100 - 129 mg/dl NEAR OR ABOVE OPTIMAL 130 - 159 mg/dl BORDERLINE HIGH 160 - 189 mg/dl HIGH >190 mg/dl VERY HIGH Performed By: #### C BC #### [facility] [address] [place] [address] Dr. Андрей Toledo Triglyceride [Mass/Vol] 296 mg/dL Critically high <=150 [facility] Comment on above: Performed By: #### C BC #### [facility] [address] [place] [address] Dr. Андрей Toledo VLDL CALC 59.2 mg/dL Normal [facility] Comment on above: Performed By: #### C BC #### [facility] [address] [place] [address] Dr. Андрей Toledo POINT OF CARE GLUCOSEon 12-25 Glucose [Mass/Vol] 160 mg/dL Critically high 74-106 T [facility] Comment on above: Performed By: #### C BC #### [facility] [address] [place] [address] Dr. Андрей Toledo PROF 14(COMP METB)on 023 Albumin [Mass/Vol] 3.0 g/dL Critically low 3.4-5.0 Th [facility] Comment on above: Performed By: #### H STROPN, BNP, CMP #### [facility] [address] [place] [address] Dr. Андрей Toledo Albumin/Globulin [Mass ratio] 0.9 {ratio} Normal [facility] Comment on above: Performed By: #### H STROPN, BNP, CMP #### [facility] [address] [address] [address] Андрей Toledo ALP [Catalytic activity/Vol] 95 U/L Normal 46-116 [facility] Comment on above: Performed By: #### H STROPN, BNP, CMP #### [facility] [address] [address] [address] Андрей Toledo ALT [Catalytic activity/Vol] 24 U/L Normal 16-63 [facility] Comment on above: Performed By: #### H STROPN, BNP, CMP #### [facility] [address] [address] [address] Андрей Toledo Anion gap [Moles/Vol] 12.8 mmol/L Normal [facility] Comment on above: Performed By: #### H STROPN, BNP, CMP #### [facility] [address] [address] [address] Андрей Toledo AST [Catalytic activity/Vol] 12 U/L Critically low 15-37 [facility] Comment on above: Performed By: #### H STROPN, BNP, CMP #### [facility] [address] [address] [address] Андрей Toledo Bilirubin [Mass/Vol] 0.5 mg/dL Normal 0.2-1.0 [facility] Comment on above: Performed By: #### H STROPN, BNP, CMP #### [facility] [address] [address] [address] Андрей Toledo Calcium [Mass/Vol] 8.8 mg/dL Normal 8.5-10.1 [facility] Comment on above: Performed By: #### H STROPN, BNP, CMP #### [facility] [address] [address] [address] Андрей Toledo Chloride [Moles/Vol] 108 mmol/L Critically high 98-107 [facility] Comment on above: Performed By: #### H STROPN, BNP, CMP #### [facility] [address] [address] [address] Андрей Toledo CO2 [Moles/Vol] 29.2 mmol/L Normal 21.0-32.0 [facility] Comment on above: Performed By: #### H STROPN, BNP, CMP #### [facility] [address] [address] [address] Андрей Toledo Creatinine [Mass/Vol] 1.06 mg/dL Normal 0.70-1.30 [facility] Comment on above: Performed By: #### H STROPN, BNP, CMP #### [facility] [address] [address] [address] Андрей Toledo EGFR-AF ANGUILLAN >60 Normal >=60 [facility] Comment on above: Performed By: #### H STROPN, BNP, CMP #### [facility] [address] [address] [address] Андрей Toledo EGFR-NON AF ANGUILLAN >60 Normal >=60 [facility] Comment on above: Performed By: #### H STROPN, BNP, CMP #### [facility] [address] [address] [address] Андрей Toledo Globulin (S) [Mass/Vol] 3.3 g/dL Normal [facility] Comment on above: Performed By: #### H STROPN, BNP, CMP #### [facility] [address] [address] [address] Андрей Toledo Glucose [Mass/Vol] 155 mg/dL Critically high 74-106 T [facility] Comment on above: Performed By: #### H STROPN, BNP, CMP #### [facility] [address] [address] [address] Андрей Toledo Potassium [Moles/Vol] 5.0 mmol/L Normal 3.5-5.1 [facility] Comment on above: Performed By: #### H STROPN, BNP, CMP #### [facility] [address] [address] [address] Андрей Toledo Protein [Mass/Vol] 6.3 g/dL Critically low 6.4-8.2 Th [facility] Comment on above: Performed By: #### H STROPN, BNP, CMP #### [facility] [address] [address] [address] Андрей Toledo Sodium [Moles/Vol] 145 mmol/L Normal 136-145 [facility] Comment on above: Performed By: #### H STROPN, BNP, CMP #### [facility] [address] [place] [address] Dr. Андрей Toledo Urea nitrogen [Mass/Vol] 25.0 mg/dL Critically high 7.0-18.0 [facility] Comment on above: Performed By: #### H STROPN, BNP, CMP #### [facility] [address] [place] [address] Dr. Андрей Toledo Urea nitrogen/Creatinine [Mass ratio] 23.6 mg/mg Normal [facility] Comment on above: Performed By: #### H STROPN, BNP, CMP #### [facility] [address] [place] [address] Dr. Андрей Toledo PROTIMEon 01-08-2023 INR Coag (PPP) [Relative time] 0.94 {INR} Normal [facility] Comment on above: Performed By: #### P TT, PT #### [facility] [address] [place] [address] Dr. Андрей Toledo INR GUIDELINES SEE BELOW Normal [facility] Comment on above: Result Comment: CAMMIE RED INR: 2.0 - 3.0 CONDITIONS NOT LISTED BELOW 2.5 - 3.5 FOR PROSTHETIC HEART VALVE REPLACEMENT 2.5 - 3.5 RECURRENT THROMBOSIS Performed By: #### P TT, PT #### [facility] [address] [place] [address] Dr. Андрей Toledo PT Coag (PPP) [Time] 10.0 s Normal 9.0-11.6 [facility] Comment on above: Performed By: #### P TT, PT #### [facility] [address] [place] [address] Dr. Андрей Toledo PTTon 01-08-2023 aPTT Coag (Bld) [Time] 27.5 s Normal 22.3-36.2 [facility] Comment on above: Performed By: #### P TT, PT #### [facility] [address] [place] [address] Dr. Андрей Toledo SYMPTOMATIC COVID-19 ANTIGEN on 01-08-2023 EUA Statement SEE BELOW Normal [facility] Comment on above: Result Comment: This [...] Performed By: #### P TT, PT #### [facility] [address] [place] [address] Dr. Андрей Toledo SARS-CoV-2 (COVID-19) RNA CLAUDIA+probe Ql (Unsp spec) Negative Normal NEGATIVE [facility] Comment on above: Performed By: #### P TT, PT #### [facility] [address] [place] [address] Dr. Андрей Toledo T4on 01-08-2023 T4 [Mass/Vol] 6.20 ug/dL Normal 4.50-12.10 [facility] Comment on above: Performed By: #### P TT, PT #### [facility] [address] [place] [address] Dr. Андрей Toledo TROPONIN, HIGH SENSITIVITYon 01-08-2023 HSTROP 28.8 pg/mL Normal 4.0-76.[address] [facility] Comment on above: Result Comment: CUT- OFF POINTS HAVE BEEN ESTABLISHED BASED ON THE FOURTH UNIVERSAL DEFINITIONS OF MYOCARDIAL INFARCTION. THE UPPER REFERENCE LIMIT (URL) OF TROPONIN, DEFINED THE 99TH PERCENTILE OF cTnI DISTRIBUTION IN A REFERENCE POPULATION, HAS BEEN CONFIRMED THE DECISION THRESHOLD FOR [place] DIAGNOSIS. Performed By: #### H STROPN, BNP, CMP #### [facility] [address] [place] [address] Dr. Андрей Toledo TSHon 01-08-2023 TSH 2.888 uIU/mL Normal 0.358-3.740 [facility] Comment on above: Performed By: #### C BC #### [facility] [address] [place] [address] Dr. Андрей Toledo XR CHEST 1 Von [...] TIFFANY TORO Date: 2023-01-08 11:[address] [facility] T4 LABCORPon 02-02-2022 T4 [Mass/Vol] 7.5 ug/dL Normal 4.5-12.0 [facility] Comment on above: Performed By: #### T 4LC #### [facility] [address] [place] [address] Dr. Андрей Toledo BNPon 02-01-2022 Natriuretic peptide B (Bld) [Mass/Vol] 26.0 pg/mL Normal <=1,800.[address] [facility] Comment on above: Performed By: #### P TT, PT #### [facility] [address] [address] [address] Андрей Toledo CBC AUTO DIFFon 02-01-2022 BASO # 0.1 103/ul Normal 0.0-0.1 [facility] Comment on above: Performed By: #### P TT, PT #### [facility] [address] [address] [address] Андрей Toledo Basophils/100 WBC (Bld) 0.6 % Normal 0.2-2.0 [facility] Comment on above: Performed By: #### P TT, PT #### [facility] [address] [place] [address] Dr. Андрей Toledo EO # 0.2 103/ul Normal 0.0-0.7 [facility] Comment on above: Performed By: #### P TT, PT #### [facility] [address] [place] [address] Dr. Андрей Toledo Eosinophils/100 WBC (Bld) 1.9 % Normal 0.9-7.0 [facility] Comment on above: Performed By: #### P TT, PT #### [facility] [address] [place] [address] Dr. Андрей Toledo Erythrocyte distribution width (RBC) [Ratio] 13.2 % Normal 11.0-15.0 [facility] Comment on above: Performed By: #### P TT, PT #### [facility] [address] [place] [address] Dr. Андрей Toledo Hematocrit (Bld) [Volume fraction] 42.7 % Normal 42.0-54.0 [facility] Comment on above: Performed By: #### P TT, PT #### [facility] [address] [place] [address] Dr. Андрей Toledo Hemoglobin (Bld) [Mass/Vol] 14.2 g/dL Normal 14.0-18.0 [facility] Comment on above: Performed By: #### P TT, PT #### [facility] [address] [place] [address] Dr. Андрей Toledo IG # 0.11 10e3/ul Critically high 0.00-0.03 [facility] Comment on above: Performed By: #### P TT, PT #### [facility] [address] [place] [address] Dr. Андрей Toledo IG % 1.4 % Critically high 0.0-0.[address] [facility] Comment on above: Performed By: #### P TT, PT #### [facility] [address] [place] [address] Dr. Андрей Toledo LYMPH # 1.6 103/ul Normal 1.2-3.8 [facility] Comment on above: Performed By: #### P TT, PT #### [facility] [address] [place] [address] Dr. Андрей Toledo Lymphocytes/100 WBC (Bld) 20.0 % Critically low 20.5-60.[address] [facility] Comment on above: Performed By: #### P TT, PT #### [facility] [address] [place] [address] Dr. Андрей Toledo MANUAL DIFF REQ NO Normal [facility] Comment on above: Performed By: #### P TT, PT #### [facility] [address] [place] [address] Dr. Андрей Toledo MCH (RBC) [Entitic mass] 30.5 pg Normal 25.9-34.[address] [facility] Comment on above: Performed By: #### P TT, PT #### [facility] [address] [place] [address] Dr. Андрей Toledo MCHC (RBC) [Mass/Vol] 33.3 g/dL Normal 29.9-35.[address] [facility] Comment on above: Performed By: #### P TT, PT #### [facility] [address] [place] [address] Dr. Андрей Toledo MCV (RBC) [Entitic vol] 91.8 fL Normal 80.0-94.0 [facility] Comment on above: Performed By: #### P TT, PT #### [facility] [address] [place] [address] Dr. Андрей Toledo MONO # 1.0 103/ul Critically high 0.3-0.[address] [facility] Comment on above: Performed By: #### P TT, PT #### [facility] [address] [place] [address] Dr. Андрей Toledo Monocytes/100 WBC (Bld) 13.4 % Critically high 1.7-12.[address] [facility] Comment on above: Performed By: #### P TT, PT #### [facility] [address] [place] [address] Dr. Андрей Toledo NEUT # 4.9 103/ul Normal 1.4-6.[address] [facility] Comment on above: Performed By: #### P TT, PT #### [facility] [address] [place] [address] Dr. Андрей Toledo Neutrophils/100 WBC (Bld) 62.7 % Normal 43.0-75.0 [facility] Comment on above: Performed By: #### P TT, PT #### [facility] [address] [address] [address] Андрей Toledo Platelet mean volume (Bld) [Entitic vol] 8.8 fL Critically low 9.5-13.[address] [facility] Comment on above: Performed By: #### P TT, PT #### [facility] [address] [address] [address] Андрей Toledo PLT 235 103/ul Normal 150-[address] [facility] Comment on above: Performed By: #### P TT, PT #### [facility] [address] [address] [address] Андрей Toledo RBC 4.65 106/ul Critically low 4.70-6.[address] [facility] Comment on above: Performed By: #### P TT, PT #### [facility] [address] [place] [address] Dr. Андрей Toledo WBC 7.8 103/ul Normal 4.0-11.[address] [facility] Comment on above: Performed By: #### P TT, PT #### [facility] [address] [address] [address] Андрей Toledo FREE THYROXINE INDEX T7on FTI 2.70 Normal 1.30-4.[address] [facility] Comment on above: Performed By: #### P TT, PT #### [facility] [address] [place] [address] Dr. Андрей Toledo T3U 36.0 % Normal 33.0-40.[address] [facility] Comment on above: Performed By: #### P TT, PT #### [facility] [address] [address] [address] Андрей Toledo T4 [Mass/Vol] 7.50 ug/dL Normal 4.50-12.10 [facility] Comment on above: Result Comment: T4 t esting performed by [facility] Performed By: #### P TT, PT #### [facility] [address] [address] [address] Андрей Toledo PROF 14(COMP METB)on 022 Albumin [Mass/Vol] 3.2 g/dL Critically low 3.4-5.0 Th [facility] Comment on above: Performed By: #### P TT, PT #### [facility] [address] [address] [address] Андрей Toledo Albumin/Globulin [Mass ratio] 0.8 {ratio} Normal [facility] Comment on above: Performed By: #### P TT, PT #### [facility] [address] [address] [address] Андрей Toledo ALP [Catalytic activity/Vol] 105 U/L Normal 46-116 [facility] Comment on above: Performed By: #### P TT, PT #### [facility] [address] [place] [address] Dr. Андрей Toledo ALT [Catalytic activity/Vol] 26 U/L Normal 16-63 [facility] Comment on above: Performed By: #### P TT, PT #### [facility] [address] [place] [address] Dr. Андрей Toledo Anion gap [Moles/Vol] 12.1 mmol/L Normal [facility] Comment on above: Performed By: #### P TT, PT #### [facility] [address] [place] [address] Dr. Андрей Toledo AST [Catalytic activity/Vol] 15 U/L Normal 15-37 [facility] Comment on above: Performed By: #### P TT, PT #### [facility] [address] [place] [address] Dr. Андрей Toledo Bilirubin [Mass/Vol] 0.4 mg/dL Normal 0.2-1.0 [facility] Comment on above: Performed By: #### P TT, PT #### [facility] [address] [address] [address] Андрей Toledo Calcium [Mass/Vol] 8.9 mg/dL Normal 8.5-10.1 [facility] Comment on above: Performed By: #### P TT, PT #### [facility] [address] [address] [address] Андрей Toledo Chloride [Moles/Vol] 103 mmol/L Normal 98-107 [facility] Comment on above: Performed By: #### P TT, PT #### [facility] [address] [address] [address] Андрей Toledo CO2 [Moles/Vol] 27.8 mmol/L Normal 21.0-32.0 [facility] Comment on above: Performed By: #### P TT, PT #### [facility] [address] [address] [address] Андрей Toledo Creatinine [Mass/Vol] 1.09 mg/dL Normal 0.70-1.30 [facility] Comment on above: Performed By: #### P TT, PT #### [facility] [address] [place] [address] Dr. Андрей Toledo EGFR-AF ANGUILLAN >60 Normal >=60 [facility] Comment on above: Performed By: #### P TT, PT #### [facility] [address] [place] [address] Dr. Андрей Toledo EGFR-NON AF ANGUILLAN >60 Normal >=60 [facility] Comment on above: Performed By: #### P TT, PT #### [facility] [address] [place] [address] Dr. Андрей Toledo Globulin (S) [Mass/Vol] 3.8 g/dL Normal [facility] Comment on above: Performed By: #### P TT, PT #### [facility] [address] [address] [address] Андрей Toledo Glucose [Mass/Vol] 206 mg/dL Critically high 74-106 T [facility] Comment on above: Performed By: #### P TT, PT #### [facility] [address] [address] [address] Андрей Toledo Potassium [Moles/Vol] 4.9 mmol/L Normal 3.5-5.1 [facility] Comment on above: Performed By: #### P TT, PT #### [facility] [address] [address] [address] Андрей Toledo Protein [Mass/Vol] 7.0 g/dL Normal 6.4-8.2 [facility] Comment on above: Performed By: #### P TT, PT #### [facility] [address] [place] [address] Dr. Андрей Toledo Sodium [Moles/Vol] 138 mmol/L Normal 136-145 [facility] Comment on above: Performed By: #### P TT, PT #### [facility] [address] [address] [address] Андрей Toledo Urea nitrogen [Mass/Vol] 25.0 mg/dL Critically high 7.0-18.0 [facility] Comment on above: Performed By: #### P TT, PT #### [facility] [address] [place] [address] Dr. Андрей Toledo Urea nitrogen/Creatinine [Mass ratio] 22.9 mg/mg Normal [facility] Comment on above: Performed By: #### P TT, PT #### [facility] [address] [place] [address] Dr. Андрей Toledo TSHon 02-01-2022 TSH 1.928 uIU/mL Normal 0.358-3.740 [facility] Comment on above: Performed By: #### P TT, PT #### [facility] [address] [place] [address] Dr. Андрей Toledo TSH RANGE SEE BELOW Normal [facility] Comment on above: Result Comment: <0.3 4 UIU/ml HYPERTHYROID 0.34-5.60 UIU/ml EUTHYROID >5.60 UIU/ml HYPOTHYROID Performed By: #### P TT, PT #### [facility] [address] [place] [address] Dr. Андрей Toledo Encounters Encounter Date Encounter Type Care Provider Facility Start: 05-16-2024 End: 05-16-2024 ambulatory [facility] Start: 10-03-2023 End: 10-03-2023 ambulatory [facility] Start: 01-08-2023 End: 01-09-[address] FAUSTO BLACKMAN . Facility: Start: 02-01-2022 End: 02-02-[address] FAUSTO BLACKMAN . Facility: Payers Date Payer Category Payer Medicare [id number] 1958 Private Health Insurance [id number] 1940 Unknown [id number] 1940 Unknown [id number] Progress note 05-16-2024 Note Date & Type Note Facility 05-16-2024 Note Coronary artery dise ase is unchanged. Continue GDMT- ASA, plavix, metoprolol, lipitor Continue heart healthy diet and regular exercise Continue current treatment regimen. Continue current medications. Cardiac status will be reassessed in 6 months. [facility] Progress note 05-16-2024 Note Date & Type [...] ALP 123, AST 16, ALT 23 Pro TBP301- normal TSH 5.227= elevated, Free T4 1.24 [...] function. Doppler sung (more content not included)... [facility] Progress note 05-16-2024 Note Date & Type Note Facility 05-16-2024 Note Pt is here for a six month follow up. Pt denies sob, chest pain, palpatations. Review of Systems All other systems reviewed and are negative. 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 [facility] Progress note 10-03-2023 Note Date & Type [...] starts bleeding . Said he won't call [facility] CT surgery because I don't know [...] All other systems reviewed and are negative. [facility] Summary Purpose Family History No Family History Records FoundNo Family History Records Found Advance Directives No Advanced Directives Records FoundNo Advanced Directives Records Found Additional Source Comments (unrecognized sect ion and content) No Status Records FoundNo Status Records Found INFORMATION SOURCE (unrecogn ized section and content) DATE CREATED AUTHOR 01/09/2023 [facility] DATE CREATED AUTHOR 'Marianne BARKER 05/19/2024 [facility] FOR RECORDS PERTAINING TO PATIENTS WHO [...] BE BASED ON THE PRIMARY CLINICAL RECORDS. [employer] provides no warranty or guarantee of the accuracy or completeness of information in this document.
[2024-07-14] MEDS: BUPIVACAINE HCL 0.5% PF 50 MG/10 ML VIAL 2 ML INJ (13:10)
[2024-07-14] MEDS: TRIAMCINOLONE ACETONIDE 40 MG/ML VIAL INJ (13:10)
[2024-07-14] MEDS: LIDOCAINE HCL 10 ML, SODIUM BICARBONATE 1 MEQ INJ (13:10)
--- NOTE | 2024-07-14 13:50 | SUR.PREOP ---
07/07/24 Pt instructed on procedure, date, time, and prep. Pt states that he is able to hold his aspirin and clopidogrel for 5 days prior and made aware to stop medicine on 07/09 and resume it on 07/15/24.
== END 2024-07-14 13:37 | disposition home or self-care (01) ==
LOC: FL 12:07
PROVIDERS: Radiology Diagnostic Radiology; PCP Family Medicine; Visit Provider Family Medicine
DX: M25.552 Pain in left hip (principal)
CPT/HCPCS: 20610; 77002; J0665; J3301; Q9966

== ENCOUNTER 2024-11-11 12:38 | Outpatient (OUT) | payer MEDICARE, OTHER, SELFPAY ==
--- OUTSIDE RECORDS SUMMARY | 2024-11-11 12:50 | XMS_ITS | CCD ---
Author Organization [facility] Care Team Providers Care [employer] Material Inspector Name Role Phone ANN ., DR LAMBERT Admitting Unavailable HOY ., DR LAMBERT Attending Unavailable HOY ., DR LAMBERT Consulting Unavailable HOY ., DR LAMBERT Primary Care Unavailable MOUKASAW, DR FARMER Consulting Unavailable DARREN ., KEVLIN Consulting Unavailable TIFFANY TORO Consulting Unavailable HOY ., DR LAMBERT Admitting Unavailable HOY ., DR LAMBERT Attending Unavailable HOY ., DR LAMBERT Consulting Unavailable HOY ., DR LAMBERT Primary Care Unavailable DARIAN LAZCANO Attending Unavailable KEENAN SHANKAR Attending Unavailable Problems Active Problems Problem Classification Problem Date Documented Date Episodic/Chronic Cardiac dysrhythmias (2 sources) Unspecified atrial fibrillation; Translations: [Unspecified atrial fibrillation] Onset: 01-21-2023 Chronic Chronic obstructive pulmonary disease and bronchiectasis (1 source) Chronic obstructive pulmonary disease with (acute) lower respiratory infection; Translations: [COPD W/(ACUTE) LOWER RESP INFEC] Onset: 02-04-2022 Chronic Complications of surgical procedures or medical care (2 sources) Other postprocedural complications and disorders of the circulatory system, not elsewhere classified; Translations: [Other postprocedural complications and disorders of the circulatory system, not elsewhere classified] Onset: 01-21-2023 Episodic Congestive heart failure; nonhypertensive (1 source) Unspecified diastolic (congestive) heart failure; Translations: [UNSPECIFIED DIASTOLIC HEART FAILURE] Onset: 02-04-2022 Chronic Coronary atherosclerosis and other heart disease (4 sources) Atherosclerotic heart disease of [place] coronary artery without angina pectoris; Translations: [Atherosclerotic heart disease of [place] coronary artery with other forms of angina pectoris] Onset: 01-11-2023 Chronic Coronary atherosclerosis and other heart disease (2 sources) Presence of aortocoronary bypass graft; Translations: [Presence of aortocoronary bypass graft] Onset: 10-31-2024 Episodic Disorders of lipid metabolism (2 sources) [...] Value Interpretation Reference Range Facility Office Visiton 10-31-2024 Follow-up visit [id number] Francisco Mckeon 1940 M Date Provider Department Center 10/31/2024 DARIAN MCDUFFIE EVELIN [facility] Family History Problem Relation Age of Onset No Known Problems Mother Family Status - Relation Status Age at Mother Level of Service:[address]105 [place] OFFICE/OUTPATIENT ESTABLISHED MOD MDM 30 MIN Normal [facility] Office Visiton 05-16-2024 Follow-up visit [id number] Francisco Mckeon 1940 M Date Provider Department Center 05/16/2024 KEENAN EUGENE EVELIN [facility] Family History Problem Relation Age of Onset No Known Problems Mother Family Status - Relation Status Age at Mother Level of Service:46630 [place] OFFICE/OUTPATIENT ESTABLISHED LOW MDM 20 MIN Normal [facility] CBC AUTO DIFFon 01-09-2023 BASO # 0.1 103/ul Normal 0.0-0.1 [facility] Comment on above: Performed By: #### C BC #### [facility] [address] [place] [address] Dr. Андрей Toledo Basophils/100 WBC (Bld) 0.8 % Normal 0.2-2.0 [facility] Comment on above: Performed By: #### C BC #### [facility] [address] [place] [address] Dr. Андрей Toledo EO # 0.1 103/ul Normal 0.0-0.7 [facility] Comment on above: Performed By: #### C BC #### [facility] [address] [place] [address] Dr. Андрей Toledo Eosinophils/100 WBC (Bld) 2.3 % Normal 0.9-7.0 [facility] Comment on above: Performed By: #### C BC #### [facility] [address] [place] [address] Dr. Андрей Toledo Erythrocyte distribution width (RBC) [Ratio] 13.0 % Normal 11.0-15.0 [facility] Comment on above: Performed By: #### C BC #### [facility] [address] [place] [address] Dr. Андрей Toledo Hematocrit (Bld) [Volume fraction] 38.4 % Critically low 42.0-54.0 [facility] Comment on above: Performed By: #### C BC #### [facility] [address] [place] [address] Dr. Андрей Toledo Hemoglobin (Bld) [Mass/Vol] 13.1 g/dL Critically low 14.0-18.0 [facility] Comment on above: Performed By: #### C BC #### [facility] [address] [place] [address] Dr. Андрей Toledo IG # 0.11 10e3/ul Critically high 0.00-0.03 [facility] Comment on above: Performed By: #### C BC #### [facility] [address] [place] [address] Dr. Андрей Toledo IG % 1.8 % Critically high 0.0-0.5 [facility] Comment on above: Performed By: #### C BC #### [facility] [address] [place] [address] Dr. Андрей Toledo LYMPH # 1.3 103/ul Normal 1.2-3.8 [facility] Comment on above: Performed By: #### C BC #### [facility] [address] [place] [address] Dr. Андрей Toledo Lymphocytes/100 WBC (Bld) 22.2 % Normal 20.5-60.0 [facility] Comment on above: Performed By: #### C BC #### [facility] [address] [place] [address] Dr. Анрдей Toledo MANUAL DIFF REQ NO Normal [facility] Comment on above: Performed By: #### C BC #### [facility] [address] [place] [address] Dr. Андрей Toledo MCH (RBC) [Entitic mass] 32.2 pg Normal 25.9-34.0 [facility] Comment on above: Performed By: #### C BC #### [facility] [address] [place] [address] Dr. Андрей Toledo MCHC (RBC) [Mass/Vol] 34.1 g/dL Normal 29.9-35.2 [facility] Comment on above: Performed By: #### C BC #### [facility] [address] [place] [address] Dr. Андрей Toledo MCV (RBC) [Entitic vol] 94.3 fL Critically high 80.0-94.0 [facility] Comment on above: Performed By: #### C BC #### [facility] [address] [place] [address] Dr. Андрей Toledo MONO # 0.9 103/ul Critically high 0.3-0.8 [facility] Comment on above: Performed By: #### C BC #### [facility] [address] [place] [address] Dr. Андрей Toledo Monocytes/100 WBC (Bld) 15.5 % Critically high 1.7-12.0 [facility] Comment on above: Performed By: #### C BC #### [facility] [address] [place] [address] Dr. Андрей Toledo NEUT # 3.4 103/ul Normal 1.4-6.5 [facility] Comment on above: Performed By: #### C BC #### [facility] [address] [place] [address] Dr. Андрей Toledo Neutrophils/100 WBC (Bld) 57.4 % Normal 43.0-75.0 [facility] Comment on above: Performed By: #### C BC #### [facility] [address] [place] [address] Dr. Андрей Toledo Platelet mean volume (Bld) [Entitic vol] 8.5 fL Critically low 9.5-13.5 [facility] Comment on above: Performed By: #### C BC #### [facility] [address] [place] [address] Dr. Андрей Toledo PLT 149 103/ul Critically low 150-450 [facility] Comment on above: Performed By: #### C BC #### [facility] [address] [place] [address] Dr. Андрей Toledo RBC 4.07 106/ul Critically low 4.70-6.10 [facility] Comment on above: Performed By: #### C BC #### [facility] [address] [place] [address] Dr. Андрей Toledo WBC 6.0 103/ul Normal 4.0-11.0 [facility] Comment on above: Performed By: #### C BC #### [facility] [address] [place] [address] Dr. Андрей Toledo PROF 14(COMP METB)on 023 Albumin [Mass/Vol] 2.9 g/dL Critically low 3.4-5.0 [facility] Comment on above: Performed By: #### C BC #### [facility] [address] [place] [address] Dr. Андрей Toledo Albumin/Globulin [Mass ratio] 0.9 {ratio} Normal [facility] Comment on above: Performed By: #### C BC #### [facility] [address] [place] [address] Dr. Андрей Toledo ALP [Catalytic activity/Vol] 93 U/L Normal 46-116 [facility] Comment on above: Performed By: #### C BC #### [facility] [address] [place] [address] Dr. Андрей Toledo ALT [Catalytic activity/Vol] 28 U/L Normal 16-63 [facility] Comment on above: Performed By: #### C BC #### [facility] [address] [address] [address] Андрей Toledo Anion gap [Moles/Vol] 14.9 mmol/L Normal [facility] Comment on above: Performed By: #### C BC #### [facility] [address] [address] [address] Андрей Toledo AST [Catalytic activity/Vol] 17 U/L Normal 15-37 [facility] Comment on above: Performed By: #### C BC #### [facility] [address] [address] [address] Андрей Toledo Bilirubin [Mass/Vol] 0.3 mg/dL Normal 0.2-1.0 [facility] Comment on above: Performed By: #### C BC #### [facility] [address] [place] [address] Dr. Андрей Toledo Calcium [Mass/Vol] 8.4 mg/dL Critically low 8.5-10.1 [facility] Comment on above: Performed By: #### C BC #### [facility] [address] [address] [address] Андрей Toledo Chloride [Moles/Vol] 106 mmol/L Normal 98-107 [facility] Comment on above: Performed By: #### C BC #### [facility] [address] [address] [address] Андрей Toledo CO2 [Moles/Vol] 26.5 mmol/L Normal 21.0-32.0 [facility] Comment on above: Performed By: #### C BC #### [facility] [address] [address] [address] Андрей Toledo Creatinine [Mass/Vol] 1.02 mg/dL Normal 0.70-1.30 [facility] Comment on above: Performed By: #### C BC #### [facility] [address] [place] [address] Dr. Андрей Toledo EGFR-AF CHILEAN >60 Normal >=60 [facility] Comment on above: Performed By: #### C BC #### [facility] [address] [address] [address] Андрей Toledo EGFR-NON AF CHILEAN >60 Normal >=60 [facility] Comment on above: Performed By: #### C BC #### [facility] [address] [address] [address] Андрей Toledo Globulin (S) [Mass/Vol] 3.1 g/dL Normal [facility] Comment on above: Performed By: #### C BC #### [facility] [address] [address] [address] Андрей Toledo Glucose [Mass/Vol] 221 mg/dL Critically high 74-106 [facility] Comment on above: Performed By: #### C BC #### [facility] [address] [place] [address] Dr. Андрей Toledo Potassium [Moles/Vol] 4.4 mmol/L Normal 3.5-5.1 [facility] Comment on above: Performed By: #### C BC #### [facility] [address] [place] [address] Dr. Андрей Toledo Protein [Mass/Vol] 6.0 g/dL Critically low 6.4-8.2 [facility] Comment on above: Performed By: #### C BC #### [facility] [address] [place] [address] Dr. Андрей Toledo Sodium [Moles/Vol] 143 mmol/L Normal 136-145 [facility] Comment on above: Performed By: #### C BC #### [facility] [address] [place] [address] Dr. Андрей Toledo Urea nitrogen [Mass/Vol] 20.0 mg/dL Critically high 7.0-18.0 [facility] Comment on above: Performed By: #### C BC #### [facility] [address] [place] [address] Dr. Андрей Toledo Urea nitrogen/Creatinine [Mass ratio] 19.6 mg/mg Normal [facility] Comment on above: Performed By: #### C BC #### [facility] [address] [place] [address] Dr. Андрей Toledo PTT HEPARIN MONITORon 2022 aPTT Coag (Bld) [Time] 46.9 s Normal 39.5-54.2 [facility] Comment on above: Performed By: #### P TT, PT #### [facility] [address] [place] [address] Dr. Андрей Toledo BNPon 01-08-2023 Natriuretic peptide B (Bld) [Mass/Vol] 192.0 pg/mL Normal <=1,800.0 [facility] Comment on above: Performed By: #### H STROPN, BNP, CMP #### [facility] [address] [place] [address] Dr. Андрей Toledo CARDIAC BEAU 3-6on 3 CK [Catalytic activity/Vol] 102 U/L Normal 39-308 [facility] Comment on above: Performed By: #### P TT, PT #### [facility] [address] [place] [address] Dr. Андрей Toledo CK.MB [Mass/Vol] 1.92 ng/mL Normal <=3.60 [facility] Comment on above: Performed By: #### P TT, PT #### [facility] [address] [place] [address] Dr. Андрей Toledo HSTROP 16.0 pg/mL Normal 4.0-76.1 [facility] Comment on above: Result Comment: CUT- OFF POINTS HAVE BEEN ESTABLISHED BASED ON THE FOURTH UNIVERSAL DEFINITIONS OF MYOCARDIAL INFARCTION. THE UPPER REFERENCE LIMIT (URL) OF TROPONIN, DEFINED THE 99TH PERCENTILE OF cTnI DISTRIBUTION IN A REFERENCE POPULATION, HAS BEEN CONFIRMED THE DECISION THRESHOLD FOR LA DIAGNOSIS. Performed By: #### P TT, PT #### [facility] [address] [place] [address] Dr. Андрей Toledo CK [Catalytic activity/Vol] 66 U/L Normal 39-308 [facility] Comment on above: Performed By: #### C MREP #### [facility] [address] [place] [address] Dr. Андрей Toledo CK.MB [Mass/Vol] 2.12 ng/mL Normal <=3.60 [facility] Comment on above: Performed By: #### C MREP #### [facility] [address] [place] [address] Dr. Андрей Toledo HSTROP 20.1 pg/mL Normal 4.0-76.1 [facility] Comment on above: Result Comment: CUT- OFF POINTS HAVE BEEN ESTABLISHED BASED ON THE FOURTH UNIVERSAL DEFINITIONS OF MYOCARDIAL INFARCTION. THE UPPER REFERENCE LIMIT (URL) OF TROPONIN, DEFINED THE 99TH PERCENTILE OF cTnI DISTRIBUTION IN A REFERENCE POPULATION, HAS BEEN CONFIRMED THE DECISION THRESHOLD FOR LA DIAGNOSIS. Performed By: #### C MREP #### [facility] [address] [place] [address] Dr. Андрей Toledo CBC AUTO DIFFon 01-08-2023 EO # 0.1 103/ul Normal 0.0-0.7 [facility] Comment on above: Performed By: #### C BC #### [facility] [address] [place] [address] Dr. Андрей Toledo Eosinophils/100 WBC (Bld) 1.9 % Normal 0.9-7.0 [facility] Comment on above: Performed By: #### C BC #### [facility] [address] [place] [address] Dr. Андрей Toledo Erythrocyte distribution width (RBC) [Ratio] 13.1 % Normal 11.0-15.0 [facility] Comment on above: Performed By: #### C BC #### [facility] [address] [place] [address] Dr. Андрей Toledo Hematocrit (Bld) [Volume fraction] 38.8 % Critically low 42.0-54.0 [facility] Comment on above: Performed By: #### C BC #### [facility] [address] [place] [address] Dr. Андрей Toledo Hemoglobin (Bld) [Mass/Vol] 13.0 g/dL Critically low 14.0-18.0 [facility] Comment on above: Performed By: #### C BC #### [facility] [address] [place] [address] Dr. Андрей Toledo IG # 0.05 10e3/ul Critically high 0.00-0.03 [facility] Comment on above: Performed By: #### C BC #### [facility] [address] [place] [address] Dr. Андрей Toledo IG % 0.7 % Critically high 0.0-0.5 [facility] Comment on above: Performed By: #### C BC #### [facility] [address] [place] [address] Dr. Андрей Toledo Lymphocytes/100 WBC (Bld) 23.2 % Normal 20.5-60.0 [facility] Comment on above: Performed By: #### C BC #### [facility] [address] [place] [address] Dr. Андрей Toledo MCH (RBC) [Entitic mass] 31.9 pg Normal 25.9-34.0 [facility] Comment on above: Performed By: #### C BC #### [facility] [address] [place] [address] Dr. Андрей Toledo MCV (RBC) [Entitic vol] 95.1 fL Critically high 80.0-94.0 [facility] Comment on above: Performed By: #### C BC #### [facility] [address] [place] [address] Dr. Андрей Toledo MONO # 0.9 103/ul Critically high 0.3-0.8 [facility] Comment on above: Performed By: #### C BC #### [facility] [address] [place] [address] Dr. Андрей Toledo Monocytes/100 WBC (Bld) 13.6 % Critically high 1.7-12.0 [facility] Comment on above: Performed By: #### C BC #### [facility] [address] [place] [address] Dr. Андрей Toledo NEUT # 4.1 103/ul Normal 1.4-6.5 [facility] Comment on above: Performed By: #### C BC #### [facility] [address] [place] [address] Dr. Андрей Toledo Neutrophils/100 WBC (Bld) 60.0 % Normal 43.0-75.0 [facility] Comment on above: Performed By: #### C BC #### [facility] [address] [place] [address] Dr. Андрей Toledo Platelet mean volume (Bld) [Entitic vol] 8.6 fL Critically low 9.5-13.5 [facility] Comment on above: Performed By: #### C BC #### [facility] [address] [place] [address] Dr. Андрей Toledo PLT 153 103/ul Normal 150-450 [facility] Comment on above: Performed By: #### C BC #### [facility] [address] [place] [address] Dr. Андрей Toledo RBC 4.08 106/ul Critically low 4.70-6.10 [facility] Comment on above: Performed By: #### C BC #### [facility] [address] [place] [address] Dr. Андрей Toledo BASO # 0.0 103/ul Normal 0.0-0.1 [facility] Comment on above: Performed By: #### C BC #### [facility] [address] [place] [address] Dr. Андрей Toledo Basophils/100 WBC (Bld) 0.6 % Normal 0.2-2.0 [facility] Comment on above: Performed By: #### C BC #### [facility] [address] [place] [address] Dr. Андрей Toledo EO # 0.2 103/ul Normal 0.0-0.7 [facility] Comment on above: Performed By: #### C BC #### [facility] [address] [place] [address] Dr. Андрей Toledo Eosinophils/100 WBC (Bld) 2.6 % Normal 0.9-7.0 [facility] Comment on above: Performed By: #### C BC #### [facility] [address] [place] [address] Dr. Андрей Toledo Erythrocyte distribution width (RBC) [Ratio] 12.9 % Normal 11.0-15.0 [facility] Comment on above: Performed By: #### C BC #### [facility] [address] [place] [address] Dr. Андрей Toledo Hematocrit (Bld) [Volume fraction] 37.9 % Critically low 42.0-54.0 [facility] Comment on above: Performed By: #### C BC #### [facility] [address] [place] [address] Dr. Андрей Toledo Hemoglobin (Bld) [Mass/Vol] 12.7 g/dL Critically low 14.0-18.0 [facility] Comment on above: Performed By: #### C BC #### [facility] [address] [place] [address] Dr. Андрей Toledo IG # 0.03 10e3/ul Normal 0.00-0.03 [facility] Comment on above: Performed By: #### C BC #### [facility] [address] [place] [address] Dr. Андрей Toledo IG % 0.4 % Normal 0.0-0.5 [facility] Comment on above: Performed By: #### C BC #### [facility] [address] [place] [address] Dr. Андрей Toledo LYMPH # 1.6 103/ul Normal 1.2-3.8 [facility] Comment on above: Performed By: #### C BC #### [facility] [address] [place] [address] Dr. Андрей Toledo Lymphocytes/100 WBC (Bld) 23.5 % Normal 20.5-60.0 [facility] Comment on above: Performed By: #### C BC #### [facility] [address] [place] [address] Dr. Андрей Toledo MANUAL DIFF REQ NO Normal [facility] Comment on above: Performed By: #### C BC #### [facility] [address] [place] [address] Dr. Андрей Toledo MCH (RBC) [Entitic mass] 31.8 pg Normal 25.9-34.0 [facility] Comment on above: Performed By: #### C BC #### [facility] [address] [address] [address] Андрей Toledo MCHC (RBC) [Mass/Vol] 33.5 g/dL Normal 29.9-35.2 [facility] Comment on above: Performed By: #### C BC #### [facility] [address] [address] [address] Андрей Toledo MCV (RBC) [Entitic vol] 95.0 fL Critically high 80.0-94.0 [facility] Comment on above: Performed By: #### C BC #### [facility] [address] [address] [address] Андрей Toledo MONO # 1.0 103/ul Critically high 0.3-0.8 [facility] Comment on above: Performed By: #### C BC #### [facility] [address] [place] [address] Dr. Андрей Toledo Monocytes/100 WBC (Bld) 14.8 % Critically high 1.7-12.0 [facility] Comment on above: Performed By: #### C BC #### [facility] [address] [address] [address] Андрей Toledo NEUT # 4.0 103/ul Normal 1.4-6.5 [facility] Comment on above: Performed By: #### C BC #### [facility] [address] [place] [address] Dr. Андрей Toledo Neutrophils/100 WBC (Bld) 58.1 % Normal 43.0-75.0 [facility] Comment on above: Performed By: #### C BC #### [facility] [address] [address] [address] Андрей Toledo Platelet mean volume (Bld) [Entitic vol] 8.3 fL Critically low 9.5-13.5 [facility] Comment on above: Performed By: #### C BC #### [facility] [address] [address] [address] Андрей Toledo PLT 145 103/ul Critically low 150-450 [facility] Comment on above: Performed By: #### C BC #### [facility] [address] [place] [address] Dr. Андрей Toledo RBC 3.99 106/ul Critically low 4.70-6.10 [facility] Comment on above: Performed By: #### C BC #### [facility] [id number] Андрей Toledo WBC 6.8 103/ul Normal 4.0-11.0 [facility] Comment on above: Performed By: #### C BC #### [facility] [address] [place] [address] Dr. Андрей Toledo Covid-19 PCR (CVDTBH)on 12-25 SARS-CoV-2 (COVID-19) RNA CLAUDIA+probe Ql (Unsp spec) Not detected Normal NOT DETECTED [facility] Comment on above: Result Comment: THIS TEST IS NOT APPROVED BY THE FDA. IT HAS BEEN AUTHORIZED FOR USE UNDER AN EMERGENCY USE AUTHORIZATION. Performed By: #### C VDTBH #### [facility] [address] [place] [address] Dr. Андрей Toledo LIPID PROFILEon 01-08-2023 CHOL-HDL RATIO NORM SEE BELOW Normal [facility] Comment on above: Result Comment: 3.3 - 4.4 LOW RISK 4.4 - 7.1 AVERAGE RISK 7.1 - 11.0 MODERATE RISK >11.0 HIGH RISK Performed By: #### C BC #### [facility] [address] [place] [address] Dr. Андрей Toledo Cholesterol [Mass/Vol] 183 mg/dL Normal <=200 [facility] Comment on above: Performed By: #### C BC #### [facility] [address] [place] [address] Dr. Андрей Toledo Cholesterol in HDL [Mass/Vol] 33 mg/dL Critically low 40-60 [facility] Comment on above: Performed By: #### C BC #### [facility] [address] [place] [address] Dr. Андрей Toledo Cholesterol in LDL [Mass/Vol] 90.8 mg/dL Normal [facility] Comment on above: Performed By: #### C BC #### [facility] [address] [address] [address] Андрей Toledo Cholesterol.total/C holesterol in HDL [Mass ratio] 5.5 {ratio} Normal [facility] Comment on above: Performed By: #### C BC #### [facility] [address] [address] [address] Андрей Toledo HDL NORMAL > or = 60 mg/dl - LO W CARDIOVASCULAR RISK <40 mg/dl - HIGH CARDIOVASCULAR RISK Normal [facility] Comment on above: Performed By: #### C BC #### [facility] [address] [address] [address] Андрей Toledo LDL CALC NORMAL SEE BELOW Normal [facility] Comment on above: Result Comment: <100 mg/dl OPTIMAL 100 - 129 mg/dl NEAR OR ABOVE OPTIMAL 130 - 159 mg/dl BORDERLINE HIGH 160 - 189 mg/dl HIGH >190 mg/dl VERY HIGH Performed By: #### C BC #### [facility] [address] [address] [address] Андрей Toledo Triglyceride [Mass/Vol] 296 mg/dL Critically high <=150 [facility] Comment on above: Performed By: #### C BC #### [facility] [address] [address] [address] Андрей Toledo VLDL CALC 59.2 mg/dL Normal [facility] Comment on above: Performed By: #### C BC #### [facility] [address] [address] [address] Андрей Toledo POINT OF CARE GLUCOSEon 12-25 Glucose [Mass/Vol] 160 mg/dL Critically high 74-106 T [facility] Comment on above: Performed By: #### C BC #### [facility] [address] [place] [address] Dr. Андрей Toledo PROF 14(COMP METB)on 023 Albumin [Mass/Vol] 3.0 g/dL Critically low 3.4-5.0 [facility] Comment on above: Performed By: #### H STROPN, BNP, CMP #### [facility] [address] [address] [address] Андрей Toledo Albumin/Globulin [Mass ratio] 0.9 {ratio} Normal [facility] Comment on above: Performed By: #### H STROPN, BNP, CMP #### [facility] [address] [address] [address] Андрей Toledo ALP [Catalytic activity/Vol] 95 U/L Normal 46-116 [facility] Comment on above: Performed By: #### H STROPN, BNP, CMP #### [facility] [address] [address] [address] Андрей Toledo ALT [Catalytic activity/Vol] 24 U/L Normal 16-63 [facility] Comment on above: Performed By: #### H STROPN, BNP, CMP #### [facility] [address] [address] [address] Андрей Toledo Anion gap [Moles/Vol] 12.8 mmol/L Normal [facility] Comment on above: Performed By: #### H STROPN, BNP, CMP #### [facility] [address] [address] [address] Андрей Toledo AST [Catalytic activity/Vol] 12 U/L Critically low 15-37 [facility] Comment on above: Performed By: #### H STROPN, BNP, CMP #### [facility] [address] [address] [address] Андрей Toledo Bilirubin [Mass/Vol] 0.5 mg/dL Normal 0.2-1.0 [facility] Comment on above: Performed By: #### H STROPN, BNP, CMP #### [facility] [address] [address] [address] Андрей Toledo Calcium [Mass/Vol] 8.8 mg/dL Normal 8.5-10.1 [facility] Comment on above: Performed By: #### H STROPN, BNP, CMP #### [facility] [address] [address] [address] Андрей Toledo Chloride [Moles/Vol] 108 mmol/L Critically high 98-107 [facility] Comment on above: Performed By: #### H STROPN, BNP, CMP #### [facility] [address] [address] [address] Андрей Toledo CO2 [Moles/Vol] 29.2 mmol/L Normal 21.0-32.0 [facility] Comment on above: Performed By: #### H STROPN, BNP, CMP #### [facility] [address] [address] [address] Андрей Toledo Creatinine [Mass/Vol] 1.06 mg/dL Normal 0.70-1.30 [facility] Comment on above: Performed By: #### H STROPN, BNP, CMP #### [facility] [address] [address] [address] Андрей Toledo EGFR-AF CHILEAN >60 Normal >=60 [facility] Comment on above: Performed By: #### H STROPN, BNP, CMP #### [facility] [address] [address] [address] Андрей Toledo EGFR-NON AF CHILEAN >60 Normal >=60 [facility] Comment on above: Performed By: #### H STROPN, BNP, CMP #### [facility] [address] [address] [address] Андрей Toledo Globulin (S) [Mass/Vol] 3.3 g/dL Normal [facility] Comment on above: Performed By: #### H STROPN, BNP, CMP #### [facility] [address] [address] [address] Андрей Toledo Glucose [Mass/Vol] 155 mg/dL Critically high 74-106 [facility] Comment on above: Performed By: #### H STROPN, BNP, CMP #### [facility] [address] [address] [address] Андрей Toledo Potassium [Moles/Vol] 5.0 mmol/L Normal 3.5-5.1 [facility] Comment on above: Performed By: #### H STROPN, BNP, CMP #### [facility] [address] [address] [address] Андрей Toledo Protein [Mass/Vol] 6.3 g/dL Critically low 6.4-8.2 [facility] Comment on above: Performed By: #### H STROPN, BNP, CMP #### [facility] [address] [place] [address] Dr. Андрей Toledo Sodium [Moles/Vol] 145 mmol/L Normal 136-145 [facility] Comment on above: Performed By: #### H STROPN, BNP, CMP #### [facility] [address] [place] [address] Dr. Андрей Toledo Urea nitrogen [Mass/Vol] 25.0 mg/dL Critically high 7.0-18.0 [facility] Comment on above: Performed By: #### H STROPN, BNP, CMP #### [facility] [address] [place] [address] Dr. Андрей Toledo Urea nitrogen/Creatinine [Mass ratio] 23.6 mg/mg Normal [facility] Comment on above: Performed By: #### H STROPN, BNP, CMP #### [facility] [address] [place] [address] Dr. Андрей Toledo PROTIMEon 01-08-2023 INR Coag (PPP) [Relative time] 0.94 {INR} Normal [facility] Comment on above: Performed By: #### P TT, PT #### [facility] [address] [place] [address] Dr. Андрей Toledo INR GUIDELINES SEE BELOW Normal [facility] Comment on above: Result Comment: CAMIME RED INR: 2.0 - 3.0 CONDITIONS NOT LISTED BELOW 2.5 - 3.5 FOR PROSTHETIC HEART VALVE REPLACEMENT 2.5 - 3.5 RECURRENT THROMBOSIS Performed By: #### P TT, PT #### [facility] [address] [place] [address] Dr. Андрей Toledo PT Coag (PPP) [Time] 10.0 s Normal 9.0-11.6 [facility] Comment on above: Performed By: #### P TT, PT #### [facility] [address] [place] [address] Dr. Андрей Toledo PTTon 01-08-2023 aPTT Coag (Bld) [Time] 27.5 s Normal 22.3-36.2 [facility] Comment on above: Performed By: #### P TT, PT #### [facility] [address] [place] [address] Dr. Андрей Toledo SYMPTOMATIC COVID-19 ANTIGEN on 01-08-2023 EUA Statement SEE BELOW Normal [facility] Comment on above: Result Comment: [...] Performed By: #### P TT, PT #### [facility] [address] [place] [address] Dr. Андрей Toledo SARS-CoV-2 (COVID-19) RNA CLAUDIA+probe Ql (Unsp spec) Negative Normal NEGATIVE [facility] Comment on above: Performed By: #### P TT, PT #### [facility] [address] [place] [address] Dr. Андрей Toledo T4on 01-08-2023 T4 [Mass/Vol] 6.20 ug/dL Normal 4.50-12.10 [facility] Comment on above: Performed By: #### P TT, PT #### [facility] [address] [place], [place] [id number] Dr. Андрей Toledo TROPONIN, HIGH SENSITIVITYon 01-08-2023 HSTROP 28.8 pg/mL Normal 4.0-76.1 [facility] Comment on above: Result Comment: CUT- OFF POINTS HAVE BEEN ESTABLISHED BASED ON THE FOURTH UNIVERSAL DEFINITIONS OF MYOCARDIAL INFARCTION. THE UPPER REFERENCE LIMIT (URL) OF TROPONIN, DEFINED THE 99TH PERCENTILE OF cTnI DISTRIBUTION IN A REFERENCE POPULATION, HAS BEEN CONFIRMED THE DECISION THRESHOLD FOR LA DIAGNOSIS. Performed By: #### H STROPN, BNP, CMP #### [facility] [address] [place] [address] Dr. Андрей Toledo TSHon 01-08-2023 TSH 2.888 uIU/mL Normal 0.358-3.740 [facility] Comment on above: Performed By: #### C BC #### [facility] [address] [place] [address] Dr. Андрей Toledo XR CHEST 1 Von [...] TIFFANY TORO Date: 2023-01-08 11:22 Normal [facility] T4 LABCORPon 02-02-2022 T4 [Mass/Vol] 7.5 ug/dL Normal 4.5-12.0 [facility] Comment on above: Performed By: #### T 4LC #### [facility] [address] [place] [address] Dr. Андрей Toledo BNPon 02-01-2022 Natriuretic peptide B (Bld) [Mass/Vol] 26.0 pg/mL Normal <=1,800.0 [facility] Comment on above: Performed By: #### P TT, PT #### [facility] [address] [place] [address] Dr. Андрей Toledo CBC AUTO DIFFon 02-01-2022 BASO # 0.1 103/ul Normal 0.0-0.1 [facility] Comment on above: Performed By: #### P TT, PT #### [facility] [address] [place] [address] Dr. Андрей Toledo Basophils/100 WBC (Bld) 0.6 % Normal 0.2-2.0 [facility] Comment on above: Performed By: #### P TT, PT #### [facility] [address] [place] [address] Dr. Андрей Toledo EO # 0.2 103/ul Normal 0.0-0.7 [facility] Comment on above: Performed By: #### P TT, PT #### [facility] [address] [place] [address] Dr. Андрей Toledo Eosinophils/100 WBC (Bld) 1.9 % Normal 0.9-7.0 [facility] Comment on above: Performed By: #### P TT, PT #### [facility] [address] [place] [address] Dr. Андрей Toledo Erythrocyte distribution width (RBC) [Ratio] 13.2 % Normal 11.0-15.0 [facility] Comment on above: Performed By: #### P TT, PT #### [facility] [address] [place] [address] Dr. Андрей oTledo Hematocrit (Bld) [Volume fraction] 42.7 % Normal 42.0-54.0 [facility] Comment on above: Performed By: #### P TT, PT #### [facility] [address] [place] [address] Dr. Андрей Toledo Hemoglobin (Bld) [Mass/Vol] 14.2 g/dL Normal 14.0-18.0 [facility] Comment on above: Performed By: #### P TT, PT #### [facility] [address] [place] [address] Dr. Андрей Toledo IG # 0.11 10e3/ul Critically high 0.00-0.03 [facility] Comment on above: Performed By: #### P TT, PT #### [facility] [address] [place] [address] Dr. Андрей Toledo IG % 1.4 % Critically high 0.0-0.5 [facility] Comment on above: Performed By: #### P TT, PT #### [facility] [address] [place] [address] Dr. Андрей Toledo LYMPH # 1.6 103/ul Normal 1.2-3.8 [facility] Comment on above: Performed By: #### P TT, PT #### [facility] [address] [place] [address] Dr. Андрей Toledo Lymphocytes/100 WBC (Bld) 20.0 % Critically low 20.5-60.0 [facility] Comment on above: Performed By: #### P TT, PT #### [facility] [address] [place] [address] Dr. Андрей Toledo MANUAL DIFF REQ NO Normal [facility] Comment on above: Performed By: #### P TT, PT #### [facility] [address] [place] [address] Dr. Андрей Toledo MCH (RBC) [Entitic mass] 30.5 pg Normal 25.9-34.0 [facility] Comment on above: Performed By: #### P TT, PT #### [facility] [address] [place] [address] Dr. Андрей Toledo MCHC (RBC) [Mass/Vol] 33.3 g/dL Normal 29.9-35.2 [facility] Comment on above: Performed By: #### P TT, PT #### [facility] [address] [place] [address] Dr. Андрей Toledo MCV (RBC) [Entitic vol] 91.8 fL Normal 80.0-94.0 [facility] Comment on above: Performed By: #### P TT, PT #### [facility] [address] [place] [address] Dr. Андрей Toledo MONO # 1.0 103/ul Critically high 0.3-0.8 [facility] Comment on above: Performed By: #### P TT, PT #### [facility] [address] [place] [address] Dr. Андрей Toledo Monocytes/100 WBC (Bld) 13.4 % Critically high 1.7-12.0 [facility] Comment on above: Performed By: #### P TT, PT #### [facility] [address] [address] [address] Андрей Toledo NEUT # 4.9 103/ul Normal 1.4-6.5 [facility] Comment on above: Performed By: #### P TT, PT #### [facility] [address] [place] [address] Dr. Андрей Toledo Neutrophils/100 WBC (Bld) 62.7 % Normal 43.0-75.0 [facility] Comment on above: Performed By: #### P TT, PT #### [facility] [address] [place] [address] Dr. Андрей Toledo Platelet mean volume (Bld) [Entitic vol] 8.8 fL Critically low 9.5-13.5 [facility] Comment on above: Performed By: #### P TT, PT #### [facility] [address] [place] [address] Dr. Андрей Toledo PLT 235 103/ul Normal 150-450 [facility] Comment on above: Performed By: #### P TT, PT #### [facility] [address] [place] [address] Dr. Андрей Toledo RBC 4.65 106/ul Critically low 4.70-6.10 [facility] Comment on above: Performed By: #### P TT, PT #### [facility] [address] [place] [address] Dr. Андрей Toledo WBC 7.8 103/ul Normal 4.0-11.0 [facility] Comment on above: Performed By: #### P TT, PT #### [facility] [address] [place] [address] Dr. Андрей Toledo FREE THYROXINE INDEX T7on FTI 2.70 Normal 1.30-4.50 [facility] Comment on above: Performed By: #### P TT, PT #### [facility] [address] [place] [address] Dr. Андрей Toledo T3U 36.0 % Normal 33.0-40.0 [facility] Comment on above: Performed By: #### P TT, PT #### [facility] [address] [place] [address] Dr. Андрей Toledo T4 [Mass/Vol] 7.50 ug/dL Normal 4.50-12.10 [facility] Comment on above: Result Comment: T4 t esting performed by [facility] Performed By: #### P TT, PT #### [facility] [address] [place] [address] Dr. Андрей Toledo PROF 14(COMP METB)on 022 Albumin [Mass/Vol] 3.2 g/dL Critically low 3.4-5.0 [facility] Comment on above: Performed By: #### P TT, PT #### [facility] [address] [place] [address] Dr. Андрей Toledo Albumin/Globulin [Mass ratio] 0.8 {ratio} Normal [facility] Comment on above: Performed By: #### P TT, PT #### [facility] [address] [place] [address] Dr. Андрей Toledo ALP [Catalytic activity/Vol] 105 U/L Normal 46-116 [facility] Comment on above: Performed By: #### P TT, PT #### [facility] [address] [place] [address] Dr. Андрей Toledo ALT [Catalytic activity/Vol] 26 U/L Normal 16-63 [facility] Comment on above: Performed By: #### P TT, PT #### [facility] [address] [place] [address] Dr. Андрей Toledo Anion gap [Moles/Vol] 12.1 mmol/L Normal [facility] Comment on above: Performed By: #### P TT, PT #### [facility] [address] [place] [address] Dr. Андрей Toledo AST [Catalytic activity/Vol] 15 U/L Normal 15-37 [facility] Comment on above: Performed By: #### P TT, PT #### [facility] [address] [place] [address] Dr. Андрей Toledo Bilirubin [Mass/Vol] 0.4 mg/dL Normal 0.2-1.0 [facility] Comment on above: Performed By: #### P TT, PT #### [facility] [address] [address] [address] Андрей Toledo Calcium [Mass/Vol] 8.9 mg/dL Normal 8.5-10.1 [facility] Comment on above: Performed By: #### P TT, PT #### [facility] [address] [address] [address] Андрей Toledo Chloride [Moles/Vol] 103 mmol/L Normal 98-107 [facility] Comment on above: Performed By: #### P TT, PT #### [facility] [address] [address] [address] Андрей Toledo CO2 [Moles/Vol] 27.8 mmol/L Normal 21.0-32.0 [facility] Comment on above: Performed By: #### P TT, PT #### [facility] [address] [place] [address] Dr. Андрей Toledo Creatinine [Mass/Vol] 1.09 mg/dL Normal 0.70-1.30 [facility] Comment on above: Performed By: #### P TT, PT #### [facility] [address] [address] [address] Андрей Toledo EGFR-AF CHILEAN >60 Normal >=60 [facility] Comment on above: Performed By: #### P TT, PT #### [facility] [address] [place] [address] Dr. Андрей Toledo EGFR-NON AF CHILEAN >60 Normal >=60 [facility] Comment on above: Performed By: #### P TT, PT #### [facility] [address] [address] [address] Андрей Toledo Globulin (S) [Mass/Vol] 3.8 g/dL Normal [facility] Comment on above: Performed By: #### P TT, PT #### [facility] [address] [address] [address] Андрей Toledo Glucose [Mass/Vol] 206 mg/dL Critically high 74-106 T [facility] Comment on above: Performed By: #### P TT, PT #### [facility] [address] [address] [address] Андрйе Toledo Potassium [Moles/Vol] 4.9 mmol/L Normal 3.5-5.1 [facility] Comment on above: Performed By: #### P TT, PT #### [facility] [address] [place] [address] Dr. Андрей Toledo Protein [Mass/Vol] 7.0 g/dL Normal 6.4-8.2 [facility] Comment on above: Performed By: #### P TT, PT #### [facility] [address] [place] [address] Dr. Андрей Toledo Sodium [Moles/Vol] 138 mmol/L Normal 136-145 [facility] Comment on above: Performed By: #### P TT, PT #### [facility] [address] [place] [address] Dr. Андрей Toledo Urea nitrogen [Mass/Vol] 25.0 mg/dL Critically high 7.0-18.0 [facility] Comment on above: Performed By: #### P TT, PT #### [facility] [address] [place] [address] Dr. Андрей Toledo Urea nitrogen/Creatinine [Mass ratio] 22.9 mg/mg Normal [facility] Comment on above: Performed By: #### P TT, PT #### [facility] [address] [place] [address] Dr. Андрей Toledo TSHon 02-01-2022 TSH 1.928 uIU/mL Normal 0.358-3.740 [facility] Comment on above: Performed By: #### P TT, PT #### [facility] [address] [place] [address] Dr. Андрей Toledo TSH RANGE SEE BELOW Normal [facility] Comment on above: Result Comment: <0.3 4 UIU/ml HYPERTHYROID 0.34-5.60 UIU/ml EUTHYROID >5.60 UIU/ml HYPOTHYROID Performed By: #### P TT, PT #### [facility] [address] [place] [address] Dr. Андрей Toledo Encounters Encounter Date Encounter Type Care Provider Facility Start: 10-31-2024 End: 10-31-2024 ambulatory DARIAN LAZCANO [facility] Start: 05-16-2024 End: 05-16-2024 ambulatory KEENAN SHANKAR [facility] Start: 01-08-2023 End: 01-09-[address] FAUSTO JUAREZ . Facility:[facility] Start: 02-01-2022 End: 02-02-[address] FAUSTO JUAREZ . Facility[facility] Payers Date Payer Category Payer Medicare [id number] 1958 Private Health Insurance [id number] 1940 Unknown [id number] 1940 Unknown [id number] Progress note 10-31-2024 Note Date & Type Note Facility 10-31-2024 Note [facility] Subjective Francisco Mckeon is a 84 y.o. year old male patient being seen for 6 mo follow up CAD, and hyperlipidemia. No recent labs/imaging. Denies chest pain, SOB, and palpitations. Patient Active Problem List Diagnosis Angina pectoris, unstable (CMS/HCC) Chronic obstructive pulmonary disease (CMS/HCC) Essential hypertension Hyperlipidemia Type 2 diabetes mellitus without complication (CMS/HCC) Unspecified macular degeneration Pure hyperglyceridemia Coronary artery disease of [place] artery of [place] heart with stable angina pectoris Obesity Hypomagnesemia Acute respiratory insufficiency Pleural effusion Postoperative atrial fibrillation (CMS/HCC) Atelectasis Acute blood loss as cause of postoperative anemia Family History Problem Relation Name Age of Onset No Known Problems Mother Social History Tobacco Use Smoking status: Former Types: Cigarettes Smokeless tobacco: Never Tobacco comments: Pt has already quit smoking. Since 2005 Vaping Use Vaping status: Never Used LOGAN Bonilla is seen in follow-up. He is an 84-year-old man with prior history of hypertension and diabetes. In December 2022 he was admitted to [facility] with unstable angina. He was transferred to [facility]. Cardiac catheterization showed severe three-vessel coronary disease. He ended up undergoing bypass surgery. Postoperatively he had atrial fibrillation that reverted after starting amiodarone. He was discharged on amiodarone p.o. He stopped it due to feeling side effects. Today he is seen in follow-up. He reports that he has been doing reasonably well. he denies chest pain, shortness of breath, palpitations, dizziness, syncope and leg edema. one of his main complaints is arthritis and hip pain. He might be considering hip surgery. Review of Systems Musculoskeletal: Positive for arthritis, joint pain and myalgias. Objective Visit Vitals BP 128/80 (BP Location: Left arm, Patient Position: Sitting) Pulse 85 Ht 1.753 m (5' 9 ) Wt 93.4 kg (206 lb) SpO2 94% BMI 30.42 kg/m??? Smoking Status Former BSA 2.13 m??? Physical Exam Constitutional: Appearance: He is well-developed. He is not ill-appearing. HENT: Head: Normocephalic and atraumatic. Nose: Nose normal. Eyes: General: No scleral icterus. Pupils: Pupils are equal, round, and reactive to light. Neck: Thyroid: No thyromegaly. Vascular: No JVD. Cardiovascular: Rate and Rhythm: Normal rate and regular rhythm. Pulses: Radial pulses are 2+ on the right side and 2+ on the left side. Heart sounds: Normal heart sounds. No murmur heard. No friction rub. No gallop. Pulmonary: Effort: Pulmonary effort is normal. No respiratory distress. Breath sounds: Normal breath sounds. No wheezing or rales. Chest: Chest wall: No tenderness. Abdominal: General: Bowel sounds are normal. There is no distension. Palpations: Abdomen is soft. Tenderness: There is no abdominal tenderness. Musculoskeletal: General: No swelling. Cervical back: Neck supple. Skin: General: Skin is warm and dry. Neurological: General: No focal deficit present. Mental Status: He is alert and oriented to person, place, and time. Psychiatric: Mood and Affect: Mood normal. Behavior: Behavior is cooperative. Judgment: Judgment normal. Allergies No Known Allergies Medications Current Outpatient Medications: aspirin 81 mg EC tablet, Take 81 mg by mouth in the morning., Disp: , Rfl: atorvastatin (Lipitor) 40 mg tablet, Take 1 tablet (40 mg) by mouth at bedtime., Disp: 90 tablet, Rfl: 3 cetirizine (ZyrTEC) 10 mg tablet, Take 10 mg by mouth in the morning., Disp: , Rfl: glimepiride (Amaryl) 4 mg tablet, Take 4 [...] metoprolol tartrate (Lopressor) 25 mg tablet, Take 0.5 tablets (12.5 mg) by mouth two times daily., Disp: 90 tablet, Rfl: 3 pantoprazole (ProtoNix) 40 mg EC tablet, Take 40 mg by mouth in the morning., Disp: , Rfl: potassium chloride CR (Klor-Con M20) 20 mEq ER tablet, Take 20 mEq by mouth in the morning., Disp: , Rfl: Recent Labs Lab Results Component Value Date NA 137 01/23/2023 NA 134 (L) 01/17/2023 K 4.2 01/23/2023 K 3.6 01/17/2023 CL 101 01/23/2023 CO2 28 01/23/2023 BUN 23 01/23/2023 CREATININE 0.85 01/23/2023 GLUCOSE 40 (LL) 01/23/2023 GLUCOSE 221 01/09/2023 CALCIUM 8.6 01/23/2023 Lab Results Component Value Date WBC 10.52 01/23/2023 HGB 10.6 (L) 01/23/2023 HCT 32.3 (L) 01/23/2023 MCV 92.6 01/23/2023 PLT 325 01/23/2023 Lab Results Component Value Date CHOL 181 01/10/2023 TRIG 417 (H) 01/10/2023 HDL 29 01/10/2023 01/14/24 CBC normal (more content not included)... [facility] Progress note 05-16-2024 Note Date & Type Note Facility 05-16-2024 Note Coronary artery dise ase is unchanged. Continue GDMT- ASA, plavix, metoprolol, lipitor Continue heart healthy diet and regular exercise Continue current treatment regimen. Continue current medications. Cardiac status will be reassessed in 6 months. [facility] Progress note 05-16-2024 Note Date & Type Note Facility 05-16-2024 Note [facility] PROGR ESS NOTE HPI: Francisco Mckeon is a 83 y.o. male here [...] ALP 123, AST 16, ALT 23 Pro [id number]- normal TSH 5.227= elevated, Free T4 1.24 [...] function. Doppler sung (more content not included)... [facility] Progress note 05-16-2024 Note Date & Type Note Facility 05-16-2024 Note Pt is here for a six month follow up. Pt denies sob, chest pain, palpatations. Review of Systems All other systems reviewed and are negative. [facility] Progress note 05-16-2024 Note Date & Type Note Facility 05-16-2024 Note Lipid abnormalities are well controlled, liver function normal Continue lipitor [facility] Progress note 05-16-2024 Note Date & Type Note Facility 05-16-2024 Note Hypertension is well controlled Continue metoprolol Renal function normal [facility] Summary Purpose Family History No Family History Records FoundNo Family History Records Found Advance Directives No Advanced Directives Records FoundNo Advanced Directives Records Found Additional Source Comments (unrecognized sect ion and content) No Status Records FoundNo Status Records Found INFORMATION SOURCE (unrecogn ized section and content) DATE CREATED AUTHOR 01/09/2023 [facility] DATE CREATED AUTHOR 'S ORGANIZ ATION 11/02/2024 [facility] FOR RECORDS PERTAINING TO PATIENTS WHO [...] BE BASED ON THE PRIMARY CLINICAL RECORDS. [facility] [facility]. provides no warranty or guarantee of the accuracy or completeness of information in this document.
--- NOTE | 2024-11-11 13:00 | CA_ITS ---
Patient Name: FRANCISCO TIDWELL MR#: [id number] : 1940 Exam Date: 11/11/2024 Ordering Doctor: DR DARIAN IBARRA M.D. ECHOCARDIOGRAM REPORT PROCEDURE: CA ECHO DOPPLER COMPLETE INDICATIONS: CAD monitoring, CABGx3, hypertension COMPARISON: None. DESCRIPTION: COMPLETE ECHOCARDIOGRAM Real-time transthoracic echocardiography with 2D, M-mode, spectral and color flow Doppler performed. QUALITY: Technical quality was good. LEFT VENTRICLE: Normal chamber size. Mild concentric left ventricular hypertrophy. Normal systolic function. LV EF: Normal left ventricular ejection fraction, (>55%). DIASTOLIC: Diastolic function is indeterminate. ATRIAL SEPTUM: Visually appears intact. LEFT ATRIUM: Mild dilatation. RIGHT ATRIUM: Normal chamber size. RIGHT VENTRICLE: Normal chamber size. Normal right ventricular systolic function. Unable to assess right-sided pressures due to lack of measurable tricuspid regurgitation. TRICUSPID VALVE: Normal mobility and thickness. No stenosis with no regurgitation. MITRAL VALVE: Normal mobility and thickness. No evidence of mitral valve stenosis. Mild mitral annular calcification. No mitral regurgitation. AORTIC VALVE: Normal trileaflet appearance. Thickened aortic valve. Normal leaflet mobility. No evidence of aortic valve stenosis. Trivial aortic regurgitation. AORTIC ROOT: Normal diameter and appearance. Ascending aorta is mildly dilated (3.7 cm). PULMONIC VALVE: Normal thickness and mobility. No stenosis. No regurgitation. PERICARDIUM: No evidence of pericardial effusion. IVC: Collapses with inspirations. PLEURA: CONCLUSION: 1. Mild concentric left ventricular hypertrophy with normal systolic function. LVEF is estimated at 55 to 60%. 2. Normal right ventricular size and systolic function. 3. No significant valvular dysfunction. 4. Mildly dilated ascending aorta measuring 3.7 cm. 5. Unable to assess right-sided pressures due to lack of measurable tricuspid regurgitation. Adult Echocardiography Procedure Report Left Ventricle LVEDD (3.7 - 5.6 cm): 4.01 cm LVESD (2.2 - 4.0 cm): 2.71 cm LVIVS thickness (0.6 - 1.2 cm): 1.54 cm LVPW thickness (0.5 - 1.0 cm): 1.24 cm e': 0.07 m/s E - e': 7.09 LVOT Max Gradient: 3.42 mm[Hg] LVOT Area (cm2): 0.92 m/s Peak Velocity (LVOT): 0.92 m/s Mean Velocity (LVOT): 0.59 m/s LVOT Diameter 2.62 cm Left Atrium LA Volume Index (2D A2C): 21.06 ml/m2 Left Atrium Systolic Dimension: 3.62 cm Mitral Valve MV E to A Ratio: 0.50 Mitral Valve A-Wave Peak Velocity: 1.05 m/s Mitral Valve E-Wave Peak Velocity: 0.53 m/s Right Ventricle Aorta AO Root Diam: 3.80 cm Ascending Ao Diam: 3.73 cm Aortic Valve AoV Area (Peak Leeroy): 3.78 cm2, 3.78 cm2 AoV Area (VTI): 3.75 cm2, 3.75 cm2 Deceleration [place]: 1.09 m/s2 Pressure Half-Time: 584.88 ms Peak Velocity(Antegrade Flow): 1.31 m/s Peak Gradient(Antegrade Flow): 6.92 mm[Hg] Mean Velocity(Antegrade Flow): 0.81 m/s Mean Gradient(Antegrade Flow): 3.16 mm[Hg] Velocity Time Integral: 25.21 cm Tricuspid Valve Peak Velocity (Regurgitant Flow): 2.48 m/s Pulmonic Valve Peak Velocity: 1.40 m/s Peak Gradient: 7.85 mm[Hg] Right Atrium Dictated by: Darian Ibarra M.D. on 11/11/2024 at 18:55 Approved by: Darian Ibarra M.D. on 11/11/2024 at 18:59
== END 2024-11-11 12:39 | disposition home or self-care (01) ==
LOC: CARD 12:38
PROVIDERS: PCP Family Medicine; Visit Provider Internal Medicine Interventional Cardiology
DX: I25.10 Atherosclerotic heart disease of native coronary artery without angina pectoris (principal)
CPT/HCPCS: 93306

== ENCOUNTER 2024-12-16 07:26 | Outpatient (OUT) | payer MEDICARE, OTHER, SELFPAY ==
[2024-12-16 07:57] LABS: Basophils Percent Auto 0.5 % (0.2-2.0); Eosinophils Absolute Auto 0.1 10^3/uL (0.0-0.7); Eosinophils Percent Auto 1.4 % (0.9-7.0); Hematocrit 41.9 % (42.0-54.0); Hemoglobin 14.7 g/dL (14.0-18.0); Immature Granulocytes Abs Auto 0.02 10^3/uL (0.00-0.03); Immature Granulocytes Pct Auto 0.3 % (0.0-0.5); Lymphocytes Absolute Auto 1.3 10^3/uL (1.2-3.8); Lymphocytes Percent Auto 20.7 % (20.5-60.0); Mean Corpuscular HGB Conc 35.1 g/dL (29.9-35.2); Mean Corpuscular Hemoglobin 31.3 pg (25.9-34.0); Mean Corpuscular Volume 89.1 fL (80.0-94.0); Mean Platelet Volume 8.4 fL (9.5-13.5); Monocytes Absolute Auto 0.8 10^3/uL (0.3-0.8); Monocytes Percent Auto 13.5 % (1.7-12.0); Neutrophils Percent Auto 63.6 % (43.0-75.0); Platelet Count 120 10^3/uL (150-450); Red Cell Distribution Width 13.2 % (11.0-15.0); White Blood Count 6.2 10^3/uL (4.0-11.0)
[2024-12-16 08:23] LABS: Estimated Average Glucose 183 mg/dL
[2024-12-16 08:36] LABS: Alanine Aminotransferase 21 U/L (16-63); Albumin Globulin Ratio 1.3; Albumin Level 3.7 g/dL (3.4-5.0); Alkaline Phosphatase 132 U/L (46-116); Anion Gap 14.8; Aspartate Amino Transferase 20 U/L (15-37); BUN Creatinine Ratio 14.7; Bilirubin Total 0.7 mg/dL (0.2-1.0); Calcium 9.2 mg/dL (8.5-10.1); Carbon Dioxide 27.6 mmol/L (21.0-32.0); Chloride 104 mmol/L (98-107); Chol HDL Ratio 2.4; Cholesterol 107 mg/dL (<=200); Estimated GFR (African America >60 (>=60 mL/min/1.73m^2); Estimated GFR (Non-African Ame >60 (>=60 mL/min/1.73m^2); Free T3 2.65 pg/mL (2.18-3.98); Globulin 2.8 g/dL; Glucose 202 mg/dL (74-106); HDL Cholesterol 45 mg/dL (40-60); Potassium 4.4 mmol/L (3.5-5.1); Sodium 142 mmol/L (136-145); Total Protein 6.5 g/dL (6.4-8.2); Triglycerides 173 mg/dL (<=150); Troponin I High Sensitivity 6.6 pg/mL (4.0-76.1); VLDL CHOLESTEROL 34.6 mg/dL
[2024-12-16 09:56] LABS: Prostate Specific Antigen Scrn 2.72 ng/mL (<=4.00)
== END 2024-12-16 07:27 | disposition home or self-care (01) ==
LOC: LAB 07:29
PROVIDERS: PCP Family Medicine; Visit Provider Family Medicine
DX: H35.30 Unspecified macular degeneration (principal); J44.9 Chronic obstructive pulmonary disease, unspecified; E11.9 Type 2 diabetes mellitus without complications; E78.1 Pure hyperglyceridemia; I10 Essential (primary) hypertension; E78.5 Hyperlipidemia, unspecified; E03.9 Hypothyroidism, unspecified; Z12.5 Encounter for screening for malignant neoplasm of prostate; R53.83 Other fatigue; I25.10 Atherosclerotic heart disease of native coronary artery without angina pectoris; E78.2 Mixed hyperlipidemia
CPT/HCPCS: 36415; 80053; 80061; 83036; 83880; 84436; 84443; 84481; 84484; 85025; G0103

== ENCOUNTER 2024-12-19 12:03 | Outpatient (OUT) | payer MEDICARE, OTHER, SELFPAY ==
--- NOTE | 2024-12-19 12:27 | ECG_ITS ---
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 Measurements Intervals [place] Rate: 78 P: 37 AL: 170 QRS: 5 QRSD: 96 T: 29 QT: 400 QTc: 456 Interpretive Statements SINUS RHYTHM INCOMPLETE RIGHT BUNDLE BRANCH BLOCK [90+ ms QRS DURATION, TERMINAL R IN V1/V2, 40+ ms S IN I/aVL/V4/V5/V6] NONSPECIFIC T-WAVE ABNORMALITY Abnormal ECG Compared to ECG 02/02/2023 21:28:41 Incomplete right bundle-branch block now present T-wave abnormality now present Electronically Signed On 12-19-2024 19:04:59 EDT by DARIAN LAZCANO M.D.
--- NOTE | 2024-12-19 12:27 | XR_ITS ---
[address] [address] Patient Name: FRANCISCO TIDWELL MRN: [id number] date: 1940 Sex: M Assigned Patient Location: [facility] Current Patient Location: [facility] Accession/Order Number: [id number] Exam Date: 12/19/2024 13:32 Report Date: 12/19/2024 13:32 At the request of: AUSTIN JARQUIN MD Procedure: XR chest 2V Chest 2 views CLINICAL HISTORY: Preop exam COMPARISON: None FINDINGS: Sternotomy wires are noted. Heart is normal in size. No consolidation pneumothorax pleural effusion or free air. XR/XR chest 2V IMPRESSION: NO ACUTE CARDIOPULMONARY ABNORMALITY. Impression dictated by: Gonzalo Navarrete Jr., D.OGreg 12/19/2024 1:32 PM Dictation Location: [place] [address] Electronically authenticated by: [id number] Y Date: 12/19/2024 13:32
[2024-12-19 13:42] LABS: INR 1.03; Partial Thromboplastin Time 26.7 sec (22.3-36.2); Prothrombin Time 10.9 sec (9.0-11.6)
== END 2024-12-19 12:04 | disposition home or self-care (01) ==
LOC: PST 12:04
PROVIDERS: PCP Family Medicine; Visit Provider Otolaryngology
DX: Z01.810 Encounter for preprocedural cardiovascular examination (principal); Z01.812 Encounter for preprocedural laboratory examination; J38.3 Other diseases of vocal cords; R49.0 Dysphonia
CPT/HCPCS: 36415; 71046; 85610; 85730; 93005

== ENCOUNTER 2025-01-01 10:25 | Day surgery (SDC) | payer MEDICARE, OTHER, SELFPAY ==
[2024-12-19 13:18] VITALS: BP 134/82; PULSE 82; TEMP 36.3; O2SAT 97; BMI 27.8
[2025-01-01] VITALS (10 sets, daily range): BP systolic 121–149; BP diastolic 76–95; PULSE 84–105; TEMP 36.1–36.2; O2SAT 94–99
--- NOTE | 2025-01-01 | OP_ITS ---
OPERATION DATE: 01/01/2025 PRIMARY CARE PHYSICIAN: Beka Blackman M.D. SURGEON: Shirley Jaramillo M.D. PREOPERATIVE DIAGNOSIS: Left true vocal cord mass. POSTOPERATIVE DIAGNOSIS: Left true vocal cord mass. PROCEDURE: Microlaryngoscopy and biopsy of left true vocal cord mass. ANESTHESIA: General endotracheal. COMPLICATIONS: None. 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 INDICATIONS: This 84-year-old man presented with chronic hoarseness and was found on examination to have the above lesion in his larynx. PROCEDURE: Patient identified in the holding area and taken back to the OR where he was placed in the supine position. After induction of general endotracheal anesthesia, the table was turned and a sponge used to protect the gums from the scope. An anterior commissure laryngoscope was passed through the oral cavity and into the throat. The scope was suspended and the above lesion identified. There was no extension into the left piriform sinus evident. The scope was then suspended and an operating endoscope was brought into position. Multiple photographs of the tumor were obtained and then, using upbiting cup forceps, several biopsies were obtained, to be sent for pathologic analysis. There was self-limited bleeding, and the patient was awakened and taken to the recovery room in good condition. AUDIE
[2025-01-01 10:52] LABS: Glucometer 203 mg/dL (74-106)
[2025-01-01] MEDS: LACTATED RINGER'S SOLUTION 1,000 ML 50 ML IV (11:04)
== END 2025-01-01 12:58 | disposition home or self-care (01) ==
PROVIDERS: PCP Family Medicine; Visit Provider Otolaryngology
PROC: (CPT 31536; principal; 2025-01-01 12:00)
DX: C32.0 Malignant neoplasm of glottis (principal); J38.3 Other diseases of vocal cords; R49.0 Dysphonia; E11.9 Type 2 diabetes mellitus without complications; Z79.01 Long term (current) use of anticoagulants; J44.9 Chronic obstructive pulmonary disease, unspecified; Z87.891 Personal history of nicotine dependence; Z79.84 Long term (current) use of oral hypoglycemic drugs; I48.91 Unspecified atrial fibrillation; I25.10 Atherosclerotic heart disease of native coronary artery without angina pectoris; I10 Essential (primary) hypertension; K21.9 Gastro-esophageal reflux disease without esophagitis
CPT/HCPCS: 31536; 36415; 82948; J1100; J1805; J2405; J2704; J3010

== ENCOUNTER 2025-01-15 13:44 | Outpatient (OUT) | payer MEDICARE, OTHER, SELFPAY ==
--- OUTSIDE RECORDS SUMMARY | 2025-01-07 10:59 | XMS_ITS ---
Author Name Auto Generated Organization [facility] Care Team Providers Care Geriatric Physician Name Role Phone AUSTIN JARQUIN Attending Unavailable AUSTIN JARQUIN Attending Unavailable KEENAN SHANKAR Attending Unavailable ATA IBARRA Attending Unavailable PROBLEMS DATE TYPE CONDITION / CODE ATTENDING STATUS [facility] 01/21/2023 Admitting Diagnosis Other postprocedural complications and disorders of the circulatory system, not elsewhere classified / I97.89(ICD-10) ATA IBARRA [facility] 01/21/2023 Admitting Diagnosis Unspecified atrial fibrillation / I48.91(ICD-10) ATA IBARRA [facility] 01/11/2023 Admitting Diagnosis Atherosclerotic heart disease of [place] coronary artery without angina pectoris / I25.10(ICD-10) ATA IBARRA [facility] 01/11/2023 Admitting Diagnosis Mixed hyperlipidemia / E78.2(ICD-10) KEENAN SHANKAR [facility] 01/11/2023 Admitting Diagnosis Atherosclerotic heart disease of [place] coronary artery with other forms of angina pectoris / I25.118(ICD-10) KEENAN SHANKAR [facility] 01/11/2023 Admitting Diagnosis Essential (primary) hypertension / I10(ICD-10) KEENAN SHANKAR [facility] 05/16/2024 Admitting Diagnosis Presence of aortocoronary bypass graft / Z95.1(ICD-10) RAADKEENAN Lopes Active [facility] PROCEDURES No Procedure Records Found RESULTS 36 Observed: 11/17/2024 3:23 PM Status: COMPLETED Source: [facility] Regarding echo result from : MD Toshia Paniagua MA Echo was good. Follow up in 1 year. Patient informed. PROGRESS Observed: 10/31/2024 2:00 PM Status: COMPLETED Source: [facility] Cardiology - [facility] Subjective Francisco Mckeon is a 84 y.o. year old male patient being seen for 6 mo follow up CAD, and hyperlipidemia. No recent labs/imaging. Denies chest pain, SOB, and palpitations. Patient Active Problem List Diagnosis Angina pectoris, unstable (CMS/HCC) Chronic obstructive pulmonary disease (CMS/HCC) Essential hypertension Hyperlipidemia Type 2 diabetes mellitus without complication (CMS/HCC) Unspecified macular degeneration Pure hyperglyceridemia Coronary artery disease of [place] artery of [place] heart with stable angina pectoris Obesity Hypomagnesemia [...] In December 2022 he was admitted to [facility] with unstable angina. He was transferred to [facility]. Cardiac catheterization showed severe three-vessel coronary disease. [...] 01/10/2023 HDL 29 01/10/2023 01/14/24 CBC normal BUN18, CR 0.92- normal A1C 7.6 elevated Liver function normal Chol 108, Trig 145, HDL 40, LDL 39- well controlled TSH normal 02/28/23 CBC stable- WBC 7.0, HGB 13.1, plt 222 NA 141, K+ 4.8.- normal BUN 25, CR 1.43, GFR 47 ALP 123, AST 16, ALT 23 Pro NSI958- normal TSH 5.227= elevated, Free T4 1.24 normal Imaging and other tests Cardiac catheterization 01/09/2023: Impression/Findings: Coronary angiogram shows [...] enlarged. Normal right ventricular systolic function. Doppler studies suggest normal right sided pressures. Left Atrium: The left atrium is normal in size. Overall Conclusions: No significant valvular abnormalities Due to suboptimal imaging Lumason contrast was administered for opacification and better delineation of endocardial borders. 01/15/2023 He underwent CABG x 3, STANLEY-LAD, SVG-OM, SVG-PLB, ECG 01/15/2023: Normal sinus rhythm, Right bundle branch block, Inferior infarct, age undetermined ECG 01/16/2023: Normal sinus rhythm, Nonspecific T wave abnormality ECG 01/20/2023: Atrial fibrillation with rapid ventricular response, Cannot rule out Inferior infarct, age undetermined, ST & T wave abnormality, consider anterior ischemia Event monitor 01/29/2023 - 02/13/2023: Sinus rhythm with no significant arrhythmias seen Assessment/Plan Diagnoses and all orders for this visit: Coronary artery disease involving [place] river coronary artery of [place] heart without angina pectoris - CBC and differential; Future - Comprehensive metabolic panel; Future - Transthoracic echo (TTE) complete; Future Mixed hyperlipidemia - Lipid panel; Future History of coronary artery bypass surgery Postoperative atrial fibrillation (CMS/HCC) CAD, status post bypass surgery in 2022: No angina. Continue aspirin and statin therapy and beta-casie. I am going to stop Plavix since he has completed more than 1 year after the bypass surgery. I will check an echocardiogram to follow-up on his ventricular function. Hyperlipidemia: Continue statin therapy. Check lipid panel. Postoperative atrial fibrillation: Episode of A-fib after the bypass surgery. No evidence of clinical recurrence since then. Prior event monitor did not show any arrhythmias. If he continues to do well, I will plan on seeing him in follow-up in 1 year. Follow up in about 1 year (around 10/31/2025). Ata Ibarra MD OFFICE VISIT Observed: 10/31/2024 2:00 PM Status: COMPLETED Source: [facility] [id number] Francisco Mckeon 10/18/1939 M Date Provider Department Center 10/31/2024 ATA MCDUFFIE EVELIN [facility] Family History Problem Relation Age of Onset No Known Problems Mother Family Status - Relation Status Age at Mother Level of Service:90816 CO OFFICE/OUTPATIENT ESTABLISHED MOD MDM 30 MIN PROGRESS Observed: 05/16/2024 1:39 PM Status: COMPLETED Source: [facility] Coronary artery disease is u nchanged. Continue GDMT- ASA, plavix, metoprolol, lipitor Continue heart healthy diet and regular exercise Continue current treatment regimen. Continue current medications. Cardiac status will be reassessed in 6 months. PROGRESS Observed: 05/16/2024 1:20 PM Status: COMPLETED Source: [facility] UTP CARDIOLOGY PROGRESS NOTE HPI: Francisco Mckeon is a 83 [...] ALP 123, AST 16, ALT 23 Pro MSI857- normal TSH 5.227= elevated, Free T4 1.24 [...] enlarged. Normal right ventricular systolic function. Doppler studies suggest normal right sided pressures. Left Atrium: The left atrium is normal in size. Overall Conclusions: No significant valvular abnormalities Due to suboptimal imaging Lumason contrast was administered for opacification and better delineation of endocardial borders. 01/15/2023 He underwent CABG x 3, STANLEY-LAD, SVG-OM, SVG-PLB, ECG 01/15/2023: Normal sinus rhythm, Right bundle branch block, Inferior infarct, age undetermined ECG 01/16/2023: Normal sinus rhythm, Nonspecific T wave abnormality ECG 01/20/2023: Atrial fibrillation with rapid ventricular response, Cannot rule out Inferior infarct, age undetermined, ST & T wave abnormality, consider anterior ischemia Event monitor 01/29/2023 - 02/13/2023: Sinus rhythm with no significant arrhythmias seen No echocardiogram results found for the past 12 months Assessment/Plan: Essential hypertension Hypertension is well controlled Continue metoprolol Renal function normal Hyperlipidemia Lipid abnormalities are well controlled, liver function normal Continue lipitor Coronary artery disease of [place] artery of [place] heart with stable angina pectoris (CMS/HCC) Coronary artery disease is unchanged. Continue GDMT- ASA, plavix, metoprolol, lipitor Continue heart healthy diet and regular exercise Continue current treatment regimen. Continue current medications. Cardiac status will be reassessed in 6 months. RTC 6 months OFFICE VISIT Observed: 05/16/2024 1:20 PM Status: COMPLETED Source: [facility] [id number] Francisco Mckeon 10/18/1939 M Date Provider Department Center 05/16/2024 Ashok-KEENAN SHANKAR CARD [facility] Family History Problem Relation Age of Onset No Known Problems Mother Family Status - Relation Status Age at Mother Level of Service:85993 CO OFFICE/OUTPATIENT ESTABLISHED LOW MDM 20 MIN PROGRESS Observed: 05/16/2024 1:20 PM Status: COMPLETED Source: [facility] Pt is here for a six month f ollow up. Pt denies sob, chest pain, palpatations. Review of Systems All other systems reviewed and are negative. PROGRESS Observed: 05/16/2024 1:19 PM Status: COMPLETED Source: [facility] Lipid abnormalities are well controlled, liver function normal Continue lipitor PROGRESS Observed: 05/16/2024 1:18 PM Status: COMPLETED Source: [facility] Hypertension is well control led Continue metoprolol Renal function normal ALLERGIES DATE TYPE / CODE NAME / CODE REACTION SEVERITY SOURCE SYSTEMIC/[id number]( SNOMED CT) NO KNOWN ALLERGIES [facility] ENCOUNTERS ADMIT/DISCHARGE ACCOUNT NUMBER ADMITTING ENCOUNTER CLASS LOCATION SOURCE 01/07/2025/ 5 [id number] Ambulatory Building:[facility]IC 12/17/2024/ 5 [id number] Ambulatory Building:[facility] 10/31/2024/ 5 [id number] Ambulatory Building:[facility] 05/16/2024/ 4 [id number] Ambulatory Building:[facility] PAYERS ENCOUNTER GUARANTOR PAYER SUBSCRIBER SOURCE 01/07/2025 FRANCISCO HAYWARDOB: [id number] [address]Tel: () Primary Insurance:MEDICAREPolic y Number: [id number] Date:0780-45-60Ygjb Name:Medicare CHARLES WILKENDOB: [id number] [address] [facility] EPIC 01/07/2025 Secondary Insurance:UNITED HEALTHCAREPolicy Number: [id number] Date:2024-08-27 FRANCISCO FRANKSENDOB: [id number] [address] [facility] EPIC 12/17/2024 FRANCISCO FRANKSENDOB: [id number] [address]Tel: () Primary Insurance:MEDICAREPolic y Number: [id number] Date:5863-13-50Tugz Name:Medicare FRANCISCO FRANKSENDOB: [id number] [address] [facility] EPIC 10/31/2024 Primary Insurance:MEDICAREPolic y Number: [id number] Date:1682-78-60Rykq Name:Medicare FRANCISCO FRANKSENDOB: [id number] [address] 10/31/2024 Secondary Insurance:UNITED HEALTHCAREPolicy Number: [id number] Date:2017-08-27 FRANCISCO FRANKSENDOB: [id number] [address] 05/16/2024 Primary Insurance:MEDICAREPolic y Number: [id number] Date:7912-74-67Lffa Name:Medicare FRANCISCO FRANKSENDOB: [id number] [address] 05/16/2024 Secondary Insurance:UNITED HEALTHCAREPolicy Number: [id number] Date:2017-08-27 FRANCISCO FRANKSENDOB: [id number] [address] [address] [facility]
--- NOTE | 2025-01-15 14:29 | PM.WCHP ---
Wound Care H&P: HPI History of Present Illness Narrative: The patient is a pleasant 84-year-old gentleman with history of throat cancer and type 2 diabetes who presents for routine nail care. His last hemoglobin A1c was 7.3. He has no complaints at this time in regards to his feet. [facility] Medical History (Updated 01/15/25 @ 14:32 by BHARAT Basilio) Hip pain ?M25.559 - Pain in unspecified hip (ICD-10) Knee pain ?M25.569 - Pain in unspecified knee (ICD-10) Postoperative atrial fibrillation ?I97.89 - Other postprocedural complications and disorders of the circulatory system, not elsewhere classified (ICD-10) ?I48.91 - Unspecified atrial fibrillation (ICD-10) Respiratory insufficiency ?R06.89 - Other abnormalities of breathing (ICD-10) Acute blood loss as cause of postoperative anemia ?D62 - Acute posthemorrhagic anemia (ICD-10) Pleural effusion ?J90 - Pleural effusion, not elsewhere classified (ICD-10) Atelectasis ?J98.11 - Atelectasis (ICD-10) Angina pectoris ?I20.9 - Angina pectoris, unspecified (ICD-10) CAD (coronary artery disease) ?I25.10 - Atherosclerotic heart disease of [place] coronary artery without angina pectoris (ICD-10) Arthritis ?M19.90 - Unspecified osteoarthritis, unspecified site (ICD-10) Macular degeneration ?H35.30 - Unspecified macular degeneration (ICD-10) GERD (gastroesophageal reflux disease) ?K21.9 - Gastro-esophageal reflux disease without esophagitis (ICD-10) Hypertension ?I10 - Essential (primary) hypertension (ICD-10) Hyperlipidemia ?E78.5 - Hyperlipidemia, unspecified (ICD-10) Diabetes ?E11.9 - Type 2 diabetes mellitus without complications (ICD-10) COPD (chronic obstructive pulmonary disease) ?J44.9 - Chronic obstructive pulmonary disease, unspecified (ICD-10) Surgical History (Updated 01/01/25 @ 10:45 by Eve Han) History of cataract extraction ?Z98.49 - Cataract extraction status, unspecified eye (ICD-10) Hx of CABG ?Z95.1 - Presence of aortocoronary bypass graft (ICD-10) S/P triple vessel bypass ?Z95.1 - Presence of aortocoronary bypass graft (ICD-10) Family History (Updated 12/19/24 @ 12:58 by Sujata Shepherd NP) Other Family history of heart disease Social History (Updated 02/03/23 @ 06:34 by Aparna Wallace) Within the past year, how often did you have a drink containing alcohol: never Score interpretation: A score less than 4 is consistent with normal alcohol consumption. Smoking status: Former smoker Non-prescribed substance use: denies use Previous occupational history: retired Highest level of school completed/degree received: high school graduate Are you now , , , , never or living with a partner: In a typical week, how many times do you talk on the telephone with family, friends, or neighbors: 3 or more times per week How often do you get together with friends or relatives: 3 or more times per week How often do you attend mormonism or mandaeism services: 4 or more times per year Do you belong to any clubs or organizations such as mormonism groups unions, [email or web address] or athletic groups, or school groups: yes Total score: 3 Score interpretation: A score of greater than or equal to 2 indicates the lowest level of social isolation. Little interest or pleasure in doing things: not at all Feeling down, depressed, or hopeless: not at all Feel stressed/tense/nervous/anxious/difficulty sleeping: not at all Due to disability, difficulty making decisions: No Do you think of yourself as: straight/heterosexual Gender Identity: male Meds Home Medications and Allergies Home Medications ?Medication ?Instructions ?Recorded ?Confirmed ?Type acetaminophen 325 mg tablet (Pain 650 mg PO Q6H PRN pain 02/02/23 01/01/25 History Relief (acetaminophen)) amiodarone 200 mg tablet 200 mg PO DAILY 02/02/23 01/01/25 History aspirin 81 mg chewable tablet 81 mg PO DAILY 02/02/23 01/01/25 History atorvastatin 40 mg tablet 40 mg PO QPM 02/02/23 01/01/25 History cetirizine 10 mg tablet 10 mg PO DAILY 02/02/23 01/01/25 History docusate sodium 100 mg capsule 200 mg PO BID 02/02/23 01/01/25 History (Col-Rite) furosemide 40 mg tablet 40 mg PO DAILY 02/02/23 01/01/25 History glimepiride 4 mg tablet 4 mg PO DAILY 02/02/23 01/01/25 History metformin 500 mg tablet 500 mg PO BID 02/02/23 01/01/25 History metoprolol tartrate 25 mg tablet 12.5 mg PO BID 02/02/23 01/01/25 History pantoprazole 40 mg tablet,delayed 40 mg PO DAILY 02/02/23 01/01/25 History release potassium chloride 20 mEq 20 meq PO DAILY 02/02/23 01/01/25 History tablet,extended release sennosides 8.6 mg capsule (senna) 8.6 mg PO BID PRN constipation 02/02/23 01/01/25 History vitamins A,C,A-bfci-rtezrq 4,296 1 cap PO DAILY 02/03/23 01/01/25 History mcg-226 mg-90 mg capsule (PreserVision AREDS) calcium 600 mg capsule 1,200 mg PO DAILY 07/07/24 01/01/25 History cholecalciferol (vitamin D3) 50 50 mcg PO DAILY 07/07/24 01/01/25 History mcg (2,000 unit) capsule (Vitamin D3) mupirocin 2 % topical ointment 1 applic topical BID 07/07/24 01/01/25 History sitagliptin phosphate 100 mg 100 mg PO DAILY 12/19/24 01/01/25 History tablet (Januvia) Allergies Allergy/AdvReac Type Severity Reaction Status Date / Time No Known Drug Allergies Allergy Verified 07/14/24 13:45 Exam Narrative: Exam Narrative: Derm: Toenails 1 through 10 are thickened, elongated, and painful.? No evidence of paronychia.? Skin is diffusely dry, thin, and atrophic.? Vascular: DP and PT pulses are palpable bilaterally.? Capillary refill is less than 3 seconds to all toes. Digital hair is absent bilaterally. Feet are cool to the touch bilaterally. Neuro: Vibratory sensation is present bilaterally.? Achilles deep tendon reflex is absent bilaterally.? Protective sensation was tested with a monofilament and is present in 3/5 areas tested on the right and 5/5 areas tested on the left.? Musculoskeletal: No gross deformity.? Strength 5/5 in all planes bilaterally Assessment and Plan Assessment and Plan (1) Tinea unguium: (2) Onychogryphosis: (3) Nail dystrophy: (4) Type 2 diabetes mellitus with other diabetic ophthalmic complication: (5) Unsteady gait when walking: (6) Coronary artery disease: Plan Routine nail care performed. Follow-up in 3 months. Acute Procedures Podiatry Nail Debridement Class B Findings Advanced trophic changes as evidenced by any three of the following: decreased hair growth, nail changes (thickening) and skin texture (thin or shiny) Class C Findings Claudication: No Temperature changes: Yes Edema: Yes Nail debridement paresthesia (abnormal spontaneous sensations in the feet): Yes Burning: No Qualifies If: Qualifiers If:: A patient qualifies for nail debridement if they have: 1 class A finding (Q7) 2 class B findings (Q8) OR 1 class B & 2 class C findings in addition to a primary condition (Q9) Nail Procedure Nail Procedure Time out: Yes Nail procedure: other (Sharp debridement of toenails 1 through 10) Number of affected nails: 10 Location (toes): left and right Procedure successful: Yes Patient tolerated procedure: well and no complications Additional comments: Toenail 1 through 10 were sharply debrided without incident with nail nippers
== END 2025-01-15 13:45 | disposition home or self-care (01) ==
LOC: WC 13:44
PROVIDERS: PCP Family Medicine; Visit Provider Physician Assistant
DX: B35.1 Tinea unguium (principal); L60.2 Onychogryphosis; L60.3 Nail dystrophy; E11.39 Type 2 diabetes mellitus with other diabetic ophthalmic complication; R26.89 Other abnormalities of gait and mobility; I25.10 Atherosclerotic heart disease of native coronary artery without angina pectoris
CPT/HCPCS: 11721

== ENCOUNTER 2025-02-09 10:46 | Outpatient (OUT) | payer MEDICARE, OTHER, SELFPAY ==
--- OUTSIDE RECORDS SUMMARY | 2025-01-27 09:00 | XMS_ITS | Encounter Summary ---
Author Organization [facility] Address [address] [place] [address] Care Team Providers Care Cloth Shrinking Tester Name Role Phone Beka Blackman MD Primary Care Provider [phone] Shirley Jaramillo MD Unavailable [phone] Source Comments In the event this information is protected by the Federal Confidentiality of Alcohol and Drug AbusePatient Records regulations: The Federal rules restrict any use of the information to criminally investigate or prosecute any alcohol or drug abuse patient.[facility] Reason for Referral * Diagnostic Procedure Only (Routine) - Closed Specialty Diagnoses / Procedures Referred By Contac t Referred To Contact MOLECULAR & FUNCTIONAL IMAGING Diagnoses Head and neck cancer (HCC) Procedures NM PET/CT SKULL-THIGH INITIAL PET IMAGING CT ATTENUATION SKULL BASE MID-THIGH Evy Dozier MD [address] [place] [address] [place] [address] Phone: tel: fax: Molecular Imaging [address] [place] [address] Phone: tel: Referral ID Status Reason Start Date Expiration Date V isits Requested Visits Authorized [id number] Closed Auto-Generate d Referral 01/27/2025 02/26/2026 1 1 * Consult, Test, Treat (Routine) - Closed Specialty Diagnoses / Procedures Referred By Contkalpesh t Referred To Contact Oncology Diagnoses Head and neck cancer (HCC) Procedures CONSULT TO ONCOLOGY OFFICE/OUTPATIENT [facility] 60 MINUTES Evy Dozier MD [facility] [place] [address] Phone: tel: fax: Referral ID Status Reason Start Date Expiration Date V isits Requested Visits Authorized [id number] Closed PCP Requested Referral 01/27/2025 01/27/2026 1 1 Reason for Visit * Reason Comments Consult * (Routine) - Pending Review Specialty Diagnoses / Procedures Referred By Judith sandhu Referred To Contact Radiation Oncology Diagnoses Cancer of true vocal cord (HCC) Procedures OFFICE/OUTPATIENT [facility] 60 MINUTES [id number] (SNOMED CT) - AMB REFERRAL TO RADIATION ONCOLOGY Shirely Jaramillo MD [address] [facility] [address] [place] [address] Phone: tel: fax: Evy Dozier MD [address] [place] [address] [place] [address] Phone: tel: fax: Referral ID Status Reason Start Date Expiration Date V isits Requested Visits Authorized [id number] Pending Review 01/20/2025 07/19/2025 1 1 Encounter Details Date Type Department Care Team (Late st Contact Info) Description 01/27/2025 9:00 AM EDT Office Visit Radiation Oncology [facility] [place] [address] Evy Dozier MD [address] [place] [address] [place] [address] Head and neck cancer (HCC) (Primary Dx) Social History Tobacco Use Types Packs/Day Years Used Date Smoking Tobacco: Former Cigarettes S tarted: 1953 Smokeless Tobacco: Never Tobacco Cessation:Counseling Given: Not Answered Alcohol Use Standard Drinks/Week Comments Not Currently 0 (1 standard drink = 0.6 oz pur e alcohol) Area Deprivation Index Answer Date Samir rded National Score (1-100), lower number is lower ri sk 63 01/27/2025 State Score (1-10), lower number is lower risk 4 01/27/2025 Data from: https://www.neighborhoodatlas.medicine.[facility]/. Last address used for calculation [address] 01/27/2025 Sex and Gender Information Value Date Recorded Sex Assigned at Not on file Legal Sex Male 11:10 AM EDT Gender Identity Not on file Sexual Orientation Not on file documented as of this encounter Last Filed Vital Signs Vital Sign Reading Time Taken Comments Blood Pressure 122/76 01/27/2025 8:55 AM EDT Pulse 98 01/27/2025 8:55 AM EDT Temperature 36.1 C (96.9 F) 01/27/2025 8:55 AM EDT Respiratory Rate 18 01/27/2025 8:55 AM EDT Oxygen Saturation 99% 01/27/2025 8:55 AM EDT Inhaled Oxygen Concentration - - Weight 90 kg (198 lb 6.6 oz) 01/27/2025 8:55 AM EDT Height 172.7 cm (5' 8 ) 01/27/2025 8:55 AM EDT Body Mass Index 30.17 01/27/2025 8:55 AM EDT documented in this encounter Progress Notes * Evy Dozier MD - 01/27/2025 9:00 AM EDT Radiation Oncology - New Patient/Consult Note PATIENT NAME: Chad Mckeon PATIENT : 1940 REQUESTING PROVIDER: Dr. 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 Date of Diagnosis: January 02, 2025 Primary Site: Larynx Glottic Laterality: Left HPI: 84 year old male who presents with above diagnosis, for an opinion regarding the role of radiation therapy in the management of the patient's disease. Final recommendations will be communicated back to the requesting physician by way of the shared medical record, or letter to requesting physician via US mail. Patient presented with hoarseness. Was found on outpatient endoscopy to have a bulky left true vocal cord lesion, no other oropharyngeal or laryngeal lesions seen. Patient underwent direct laryngoscopy with biopsy on 01/02/2025. Findings included a left true vocal cord mass. The tumor described as bulky involving the entirety of the left false cord extending to the anterior commissure with apparent fixation of the vocal cord. Bilateral piriform sinus and base of tongue without evidence of involvement. Pathology revealed keratinizing squamous cell carcinoma. FOCUSED ROS: Dysphagia: No Hemoptysis/Bleeding: No Mucositis: No Voice Changes:Yes hoarseness for over 9 months worsening Fatigue: Yes . Nausea: No Vomitting: No Pain: No Taste: No Weight loss: No ALLERGIES No Known Allergies MEDICATIONS: aspirin, enteric coated (ASPIRIN, ENTERIC COATED) 81 mg EC tablet Take 81 mg by mouth. atorvastatin (LIPITOR) 40 mg tablet Take 40 mg by mouth daily at bedtime. cetirizine (ZYRTEC) 10 mg tablet Take 10 mg by mouth once daily. clopidogrel (PLAVIX) 75 mg tablet take 1 tablet (75 mg) by mouth in the morning. glimepiride (AMARYL) 4 mg tablet TAKE ONE TABLET BY MOUTH ONCE DAILY WITH BREAKFAST OR THE FIRST MAIN MEAL OF THE DAY magnesium oxide (MAG-OX) 400 mg (241.3 mg magnesium) tablet Take 1 tablet by mouth. metFORMIN (GLUCOPHAGE) 500 mg tablet take one tablet by mouth twice a day for 30 days metoprolol tartrate, short acting, (LOPRESSOR) 25 mg tablet Take 12.5 mg by mouth two times a day. potassium chloride ER (KLOR-CON) 20 mEq tablet Take 20 mEq by mouth daily with food. JANUVIA 100 mg tablet 1 tablet Orally Once a day for 30 days vit A/vit C/vit E/zinc/copper (PRESERVISION AREDS ORAL) Take by mouth. calcium carbonate/vitamin D3 (CALCIUM WITH VITAMIN D3 ORAL) Take by mouth. ondansetron (ZOFRAN) 8 mg tablet Take 1 tablet by mouth every 8 hours as needed for nausea/vomiting. prochlorperazine (COMPAZINE) 10 mg tablet Take 1 tablet by mouth every 6 hours as needed. 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 No PAST SURGICAL HISTORY Procedure Laterality Date PAST SURGICAL HISTORY OF 2022 cardiac bypass- History reviewed. No pertinent family history. Social History Tobacco Use Smoking status: Former Types: Cigarettes Start date: 1953 Smokeless tobacco: Never Substance Use Topics Alcohol use: Not Currently Drug use: Not Currently COMPLETE REVIEW OF SYSTEMS: NECK: denies swelling or pain in neck RESPIRATORY: no cough, no wheezing or shortness of breath CARDIOVASCULAR: no chest pain, no palpitations GI: normal appetite, tolerating PO well, BMs normal, and no abdominal pain : urination is normal MUSCULOSKELETAL: denies any painful or swollen joints, no muscle aches SKIN: no rash NEURO: no numbness or paresthesias and no weakness of the extremities As noted in HPI PHYSICAL EXAM: Synopsis Smart[facility] 01/30/2025 11:24 Vitals Temp 36.6 ??C (97.9 ??F) Pulse 73 Resp 18 BP 124/74 SpO2 96 % KPS: 90 General Appearance: Alert and oriented. No acute distress. HEENT: NCAT. Sclera anicteric. PERRL. EOMI. Oral cavity & oropharnyx: lips and gums normal, oral and pharyngeal mucosa moist, palate elevates normally, tongue mobile and without palpable lesions, tonsils without masses Dentition: Edentulous Neck: Normal ROM. No palpable cervical or supraclavicular adenopathy. Chest: No respiratory distress. Lungs clear to auscultation bilaterally. Heart: Regular rate and rhythm. Musculoskeletal: No edema. Normal ROM in extremities. No bone or spine tenderness. Neuro: Speech fluent. Gait normal. No focal deficits. Skin: No rashes noted Lymphatics: No palpable lymphadenopathy. Hematologic: No signs of active bleeding. RADIOLOGY/LABORATORY DATA: see HPI ASSESSMENT/PLAN: 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 Patient presents with a bulky T3 squamous of carcinoma of the left true vocal cord. There is extension into the false cord fixation of the true cord area. Patient has otherwise fairly good performance status. Options of management discussed. I do feel that a laryngeal preserving strategy is warranted. We did discuss potential surgical options briefly. Recommend further diagnostic/radiographic workup including diagnostic CT neck and PET scan. Recommend consultations with medical oncology to consider concurrent chemotherapy and with oncologic nutrition guidance during his treatment. Risk benefits of treatment including both acute and long-term discussed with patient. Risk of potential local failure and need for laryngectomy discussed. He expressed understanding and information presented. Will have him back after his staging for further discussion. Signed by: Evy Dozier MD cc: MD Shirley Morrow MD [address] [facility] [place] [address] * Chioma Powell RN - 01/27/2025 8:48 AM EDT Pacemaker/Defibrillator?N Previous Cancer(s)?N Previous Radiation?N Lupus/Scleroderma?N On body monitoring device?N Chioma Powell RN documented in this encounter Plan of Treatment Not on file documented as of this encounter Results * NM PET/CT SKULL-THIGH INITIAL (01/28/2025 3:23 PM EDT) Anatomical Region Laterality Modality Nuclear Medicine , Nuclear Medicine 01/28/2025 3:23 PM EDT Narrative 01/31/2025 4:07 PM EDT * * *Final Report* * * DATE OF EXAM: Jan 28 2025 3:23PM NRN [id number] - NM PET/CT SKULL-THIGH INIT / PROCEDURE REASON: Head and neck cancer (HCC) * * * * Physician Interpretation * * * * RESULT: EXAMINATION: BODY FDG PET-CT CLINICAL HISTORY: Head and neck cancer. Presented with hoarseness, found on outpatient endoscopy to have a left true vocal cord lesion with biopsy demonstrating squamous cell carcinoma. EXAM CATEGORY: Initial treatment strategy. TECHNIQUE: Radiopharmaceutical was administered intravenously followed by PET imaging from the skull vertex to thighs. Free breathing, low dose CT of the same body region was acquired without IV contrast for attenuation correction and anatomic localization. Unenhanced imaging is limited for the evaluation of some pathology and the acquired CT was not designed to produce diagnostic CT scan quality. Physiologic/non-pathologic uptake in some body regions could confound or obscure some pathology. * CT Dose-Length Product (DLP): 327 mGy*cm * CT Dose Reduction Employed: Yes * Blood glucose: 148 mg/dL * Injection site: Right Hand * Injected activity: 10.4 mCi * Uptake Time: 61 minutes * Radiopharmaceutical: Y45-[id number] (FDG) COMPARISON: No previous FDG PET/CT available CORRELATION: No relevant prior imaging available RESULT: REFERENCES: FDG uptake is used as a surrogate marker for glucose metabolism. All reported standardized uptake values represent maximum SUV (SUVmax) per body weight, unless otherwise specified. SUV reference values, as follows: * Blood Pool (Descending Aorta): SUVmax 2.1 * Background Liver: SUVmax 2.9; SUVmean 2.1 Localizer Images: No additional findings. HEAD AND NECK: Head: No radiotracer avid lesion or mass effect in the imaged intracranial compartment. Aerodigestive Tract: Tracer avid nodular thickening of the left vocal cord measures SUV max 9.2. Lymph Nodes: No radiotracer avid lymphadenopathy. Neck Soft Tissues: No radiotracer avid thyroid nodule. CHEST: Lungs & Pleura: No radiotracer avid mass, nodule, or consolidation. 5 mm left apical nodule, likely below PET resolution (3:129). No pleural effusion. Lymph Nodes: An intensely tracer avid right paratracheal node measures SUV max 8.4, 1.0 x 0.8 cm (3:142). Lower level uptake is noted within subcentimeter AP window (SUV max 3.5), subcarinal (SUV max 2.7) and bilateral hilar nodes (SUV max 3.4 on the right). Cardiovascular: Blood pool activity. No pericardial effusion. Normal heart size. Chest Wall: Tracer avid subcutaneous nodule at the right para midline anterior chest wall at the level of the manubrium measures SUV max 4.6, 0.9 x 0.7 cm (3:127). Medial right pectoralis intramuscular focus of uptake measures SUV max 3.9, 1.0 x 0.6 cm (3:137). Median sternotomy changes with associated increased activity, for example measuring SUV max 5.2 along the sternal body ABDOMEN AND PELVIS: Hepatobiliary: No radiotracer avid lesion. No measurable mass. Spleen: No radiotracer avid lesion. No splenomegaly. Pancreas: No radiotracer avid lesion. Adrenals: No radiotracer avid nodule. Urinary Tract: Physiologic radiotracer excretion in the renal collecting systems and urinary bladder. No hydronephrosis. GI Tract: Segmentally increased bowel uptake is likely physiologic or secondary to medication effects (e.g. metformin). No focal radiotracer avid lesion. No dilated bowel. Peritoneum: No radiotracer avid lesion. No ascites. Lymph Nodes: No radiotracer avid lymphadenopathy. Vasculature: Blood pool activity. Vascular calcifications without an abdominal aortic aneurysm. Pelvic Organs: No radiotracer avid lesion. MUSCULOSKELETAL: Bones: No radiotracer avid lesion. Degenerative changes including advanced left hip osteoarthritis with associated inflammatory uptake. Soft Tissues: Chest wall findings detailed separately. IMPRESSION PRIMARY DISEASE SITE: * Metabolically active nodular thickening of the left vocal cord (SUV max 9.2), biopsy-proven malignancy. ROSEMARY DISEASE: * No metabolically active cervical lymphadenopathy. * Intensely metabolically active right paratracheal node (SUV max 8.4), presumed metastatic. Other, mildly metabolically active mediastinal and hilar nodes are indeterminate and may be benign/reactive. METASTATIC DISEASE: * Metabolically active subcutaneous nodule at the right para midline anterior chest wall at the level of the manubrium as well as metabolically active medial right pectoralis intramuscular focus. These findings are indeterminate for metastatic implants versus areas of inflammatory uptake related to prior median sternotomy. Further characterization can be obtained with contrast-enhanced MRI, for example to evaluate for characteristics of fat necrosis versus internal vascularity in the subcutaneous nodule. * No metabolically active abdominopelvic or osseous metastases. ADDITIONAL FINDINGS: * Median sternotomy changes with associated increased metabolic activity, presumed within normal limits post procedurally. Clinical correlation recommended if there is concern for superimposed infectious/inflammatory process * 5 mm left apical nodule without increased metabolic activity, however likely below PET resolution. Continue CT surveillance as warranted clinically. 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 Transcribe Date/Time: Jan 31 2025 3:40P Dictated by: WENDY GORDON MD This examination was interpreted and the report reviewed and electronically signed by: WENDY GORDON MD on Jan 31 2025 4:05PM EST Thank you for allowing us to participate in the care of your patient. Should there be any questions regarding this interpretation, please call [phone]. If you are unable to reach us at the number above, please feel free to contact [facility] at [phone]. Procedure Note Provider, [facility] - 01/31/2025 * * *Final Report* * * DATE OF EXAM: Jan 28 2025 3:23PM NRN [id number] - NM PET/CT SKULL-THIGH INIT / PROCEDURE REASON: Head and neck cancer (HCC) * * * * Physician Interpretation * * * * RESULT: EXAMINATION: BODY FDG PET-CT CLINICAL HISTORY: Head and neck cancer. Presented with hoarseness, found on outpatient endoscopy to have a left true vocal cord lesion with biopsy demonstrating squamous cell carcinoma. EXAM CATEGORY: Initial treatment strategy. TECHNIQUE: Radiopharmaceutical was administered intravenously followed by PET imaging from the skull vertex to thighs. Free breathing, low dose CT of the same body region was acquired without IV contrast for attenuation correction and anatomic localization. Unenhanced imaging is limited for the evaluation of some pathology and the acquired CT was not designed to produce diagnostic CT scan quality. Physiologic/non-pathologic uptake in some body regions could confound or obscure some pathology. * CT Dose-Length Product (DLP): 327 mGy*cm * CT Dose Reduction Employed: Yes * Blood glucose: 148 mg/dL * Injection site: Right Hand * Injected activity: 10.4 mCi * Uptake Time: 61 minutes * Radiopharmaceutical: I90-Vrewgxujmwcbzwpdrt (FDG) COMPARISON: No previous FDG PET/CT available CORRELATION: No relevant prior imaging available RESULT: REFERENCES: FDG uptake is used as a surrogate marker for glucose metabolism. All reported standardized uptake values represent maximum SUV (SUVmax) per body weight, unless otherwise specified. SUV reference values, as follows: * Blood Pool (Descending Aorta): SUVmax 2.1 * Background Liver: SUVmax 2.9; SUVmean 2.1 Localizer Images: No additional findings. HEAD AND NECK: Head: No radiotracer avid lesion or mass effect in the imaged intracranial compartment. Aerodigestive Tract: Tracer avid nodular thickening of the left vocal cord measures SUV max 9.2. Lymph Nodes: No radiotracer avid lymphadenopathy. Neck Soft Tissues: No radiotracer avid thyroid nodule. CHEST: Lungs & Pleura: No radiotracer avid mass, nodule, or consolidation. 5 mm left apical nodule, likely below PET resolution (3:129). No pleural effusion. Lymph Nodes: An intensely tracer avid right paratracheal node measures SUV max 8.4, 1.0 x 0.8 cm (3:142). Lower level uptake is noted within subcentimeter AP window (SUV max 3.5), subcarinal (SUV max 2.7) and bilateral hilar nodes (SUV max 3.4 on the right). Cardiovascular: Blood pool activity. No pericardial effusion. Normal heart size. Chest Wall: Tracer avid subcutaneous nodule at the right para midline anterior chest wall at the level of the manubrium measures SUV max 4.6, 0.9 x 0.7 cm (3:127). Medial right pectoralis intramuscular focus of uptake measures SUV max 3.9, 1.0 x 0.6 cm (3:137). Median sternotomy changes with associated increased activity, for example measuring SUV max 5.2 along the sternal body ABDOMEN AND PELVIS: Hepatobiliary: No radiotracer avid lesion. No measurable mass. Spleen: No radiotracer avid lesion. No splenomegaly. Pancreas: No radiotracer avid lesion. Adrenals: No radiotracer avid nodule. Urinary Tract: Physiologic radiotracer excretion in the renal collecting systems and urinary bladder. No hydronephrosis. GI Tract: Segmentally increased bowel uptake is likely physiologic or secondary to medication effects (e.g. metformin). No focal radiotracer avid lesion. No dilated bowel. Peritoneum: No radiotracer avid lesion. No ascites. Lymph Nodes: No radiotracer avid lymphadenopathy. Vasculature: Blood pool activity. Vascular calcifications without an abdominal aortic aneurysm. Pelvic Organs: No radiotracer avid lesion. MUSCULOSKELETAL: Bones: No radiotracer avid lesion. Degenerative changes including advanced left hip osteoarthritis with associated inflammatory uptake. Soft Tissues: Chest wall findings detailed separately. IMPRESSION PRIMARY DISEASE SITE: * Metabolically active nodular thickening of the left vocal cord (SUV max 9.2), biopsy-proven malignancy. ROSEMARY DISEASE: * No metabolically active cervical lymphadenopathy. * Intensely metabolically active right paratracheal node (SUV max 8.4), presumed metastatic. Other, mildly metabolically active mediastinal and hilar nodes are indeterminate and may be benign/reactive. METASTATIC DISEASE: * Metabolically active subcutaneous nodule at the right para midline anterior chest wall at the level of the manubrium as well as metabolically active medial right pectoralis intramuscular focus. These findings are indeterminate for metastatic implants versus areas of inflammatory uptake related to prior median sternotomy. Further characterization can be obtained with contrast-enhanced MRI, for example to evaluate for characteristics of fat necrosis versus internal vascularity in the subcutaneous nodule. * No metabolically active abdominopelvic or osseous metastases. ADDITIONAL FINDINGS: * Median sternotomy changes with associated increased metabolic activity, presumed within normal limits post procedurally. Clinical correlation recommended if there is concern for superimposed infectious/inflammatory process * 5 mm left apical nodule without increased metabolic activity, however likely below PET resolution. Continue CT surveillance as warranted clinically. 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 Transcribe Date/Time: Jan 31 2025 3:40P Dictated by: WENDY GORDON MD This examination was interpreted and the report reviewed and electronically signed by: WENDY GORDON MD on Jan 31 2025 4:05PM EST Thank you for allowing us to participate in the care of your patient. Should there be any questions regarding this interpretation, please call [phone]. If you are unable to reach us at the number above, please feel free to contact [facility] at [phone]. [facility] [place]-PAMA Final Resul t documented in this encounter Visit Diagnoses Diagnosis Head and neck cancer (HCC)- Primary Malignant neoplasm of head, face, and neck Head and neck cancer (HCC) Malignant neoplasm of head, face, and neck documented in this encounter Care Teams Cloth Shrinking Tester Relationship Specialty Start Date End Date Beka Blackman MD [address] [place] [address] PCP - General Family Medicine 12/02/15 Shirley Jaramillo MD [address] [place] [address] [address] [place] [address] Referring Ent - Otolaryngology 01/20/25 documented as of this encounter
--- OUTSIDE RECORDS SUMMARY | 2025-01-28 13:18 | XMS_ITS | Encounter Summary ---
Author Organization [facility] Address [address] [place] [address] Care Team Providers Care Grading Clerk Name Role Phone Beka Blackman MD Primary Care Provider [phone] Shirley Jaramillo MD Unavailable [phone] Source Comments In the event this information is protected by the Federal Confidentiality of Alcohol and Drug AbusePatient Records regulations: The Federal rules restrict any use of the information to criminally investigate or prosecute any alcohol or drug abuse patient.[facility] Reason for Visit * Reason Comments Radiology NM * Diagnostic Procedure Only (Routine) - Closed Specialty Diagnoses / Procedures Referred By Contac t Referred To Contact MOLECULAR & FUNCTIONAL IMAGING Diagnoses Head and neck cancer (HCC) Procedures NM PET/CT SKULL-THIGH INITIAL PET IMAGING CT ATTENUATION SKULL BASE MID-THIGH Evy Dozier MD [address] [place] [address] [place] [address] Phone: tel: fax: [facility] [address] [place] [address] Phone: tel: Referral ID Status Reason Start Date Expiration Date V isits Requested Visits Authorized [id number] Closed Auto-Generate d Referral 01/27/2025 02/26/2026 1 1 Encounter Details Date Type Department Care Team (Latest Contact Info) Description 01/28/2025 1:18 PM EDT - 01/28/2025 11:59 PM EDT Hospital Encounter Radiology Pet CT [address] [place] [address] Head and neck cancer (HCC) [C76.0] Discharge Disposition: Home Social History Tobacco Use Types Packs/Day Years Used Date Smoking Tobacco: Former Cigarettes S tarted: 1953 Smokeless Tobacco: Never Alcohol Use Standard Drinks/Week Comments Not Currently 0 (1 standard drink = 0.6 oz pur e alcohol) Area Deprivation Index Answer Date Samir rded National Score (1-100), lower number is lower ri sk 63 01/27/2025 State Score (1-10), lower number is lower risk 4 01/27/2025 Data from: https://www.neighborhoodatlas.medicine.[facility].edu/. Last address used for calculation [address] 01/27/2025 Sex and Gender Information Value Date Recorded Sex Assigned at Not on file Legal Sex Male 11:10 AM EDT Gender Identity Not on file Sexual Orientation Not on file documented as of this encounter Medications at Time of Discharge aspirin, enteric coated (ASPIRIN, ENTERIC COATED) 81 mg EC tablet Take 81 mg by mouth. atorvastatin (LIPITOR) 40 mg tablet Take 40 mg by mouth daily at bedtime. cetirizine (ZYRTEC) 10 mg tablet Take 10 mg by mouth once daily. clopidogrel (PLAVIX) 75 mg tablet take 1 tablet (75 mg) by mouth in the morning. 10/30/2024 glimepiride (AMARYL) 4 mg tablet TAKE ONE TABLET BY MOUTH ONCE DAILY WITH BREAKFAST OR THE FIRST MAIN MEAL OF THE DAY magnesium oxide (MAG-OX) 400 mg (241.3 mg magnesium) tablet Take 1 tablet by mouth. 03/14/2023 metFORMIN (GLUCOPHAGE) 500 mg tablet take one tablet by mouth twice a day for 30 days metoprolol tartrate, short acting, (LOPRESSOR) 25 mg tablet Take 12.5 mg by mouth two times a day. potassium chloride ER (KLOR-CON) 20 mEq tablet Take 20 mEq by mouth daily with food. JANUVIA 100 mg tablet 1 tablet Orally Once a day for 30 days 12/16/2024 vit A/vit C/vit E/zinc/copper (PRESERVISION AREDS ORAL) Take by mouth. calcium carbonate/vitami n D3 (CALCIUM WITH VITAMIN D3 ORAL) Take by mouth. documented as of this encounter Progress Notes * Linh Cruz RN - 01/28/2025 1:30 PM EDT Radiology Service Progress Note DATE OF SERVICE: January 28, 2025 TIME: 1:44 PM PATIENT WEIGHT: 198LBS PATIENT IDENTITY VERIFICATION COMPLETED USING TWO (2) STANDARD IDENTIFIERS: Name and Date of confirmed by patient verbally. FALL SCREENING: Has the patient had 2 falls in the last year or 1 fall with injury or currently using an Ambulatory Assistive Device (Walker, Cane, Wheelchair, Crutches, etc.)? No PATIENT GENDER DATA: Assigned male at ALLERGIES: Reviewed and unchanged CONTRAST ALLERGY: No EXAM: CT -CONTRAST INDUCED NEPHROPATHY RISK FACTORS: Not applicable CREATININE: No results found for: CREAT , EGFROTH , EGFRAA P.O.C.T. RESULTS: POC done: Yes, See Lab Tab January 28, 2025 TREATMENT: N/A IV SITE: Ambulatory: A peripheral IV was started in the Right antecubital site with a Angio cath: 24 gauge. IV SITE APPEARANCE: Clean,Dry and Intact SIGNATURE: Linh Cruz RN PATIENT NAME: Chad Mckeon DATE: January 28, 2025 TIME: 1:44 PM * Aleksandra Landrum, RT(R) - 01/28/2025 1:30 PM EDT RADIOLOGY SERVICE PROGRESS NOTE SERVICE DATE: 01/28/2025 SERVICE TIME: 2:45 PM PATIENT IDENTITY VERIFICATION COMPLETED USING TWO (2) STANDARD IDENTIFIERS: Name and Date of confirmed by patient verbally POST EXAM PIV STATUS: Discontinued PROCEDURE TYPE: NM INJECT: PET/CT BODY SCAN. 10.4 mCi F18 FDG. Administered By: . No other medications given.. ADMINISTRATION TIME: 1331 PATIENT DISCHARGED TO: Ambulatory patient, left [facility] department area. Is this a therapy: No A Diagnostic radioactive procedure has taken place, with no further precautions necessary other than routine body substance precautions. More information regarding radiation safety can be found usingthis link: [email or web address] SIGNATURE: RT Sánchez(R) PATIENT NAME: Chad Mckeon DATE: January 28, 2025 TIME: 2:45 PM PAGER/CONTACT #: documented in this encounter Plan of Treatment Not on file documented as of this encounter Procedures Procedure Name Priority Date/Time Associated Diagnosis Comments NM PET/CT SKULL-THIGH INITIAL Routine 01/28/2025 3:23 PM EDT Head and neck cancer (HCC) GLUCOSE, BLOOD (POC) Routine 01/28/2025 1:30 PM EDT documented in this encounter Results * NM PET/CT SKULL-THIGH [...] * Uptake Time: 61 minutes * Radiopharmaceutical: A91-Mprzaanpryljheyqsz (FDG) COMPARISON: No previous FDG PET/CT available [...] any questions regarding this interpretation, please call [phone]. If you are unable to reach us at the number above, please feel free to contact [facility] at [phone]. Procedure Note Provider, [facility] - 01/31/2025 * * *Final Report* * [...] * Uptake Time: 61 minutes * Radiopharmaceutical: I93-Mguzzywytqvpcjptod (FDG) COMPARISON: No previous FDG PET/CT available [...] any questions regarding this interpretation, please call [phone]. If you are unable to reach us at the number above, please feel free to contact [facility] at [phone]. [facility] Glenn Dozier MD [facility] Final Resul t * (ABNORMAL) GLUCOSE, BLOOD (POC) (01/28/2025 1:30 PM EDT) [facility] Glucose, Point of Care 148(A) 74 - 99 mg/dL [facility] Comment: Location:[facility], [address] [place] [address] , [place], [place], [facility] The Accu-Chek Inform II glucose meter has not been approved for testing on patients receiving intensive medical intervention or therapy and results from this point of care glucose test should not be used for patient management decisions in these cases. Inaccurate results may also occur from other interfering factors, such as N-acetylcysteine (blood concentrations of greater than 5mg/dL), galactose, extremes of hematocrit (<10 or >65), or high doses of ascorbic acid (vitamin C) greater than 3mg/dL. Consider alternate testing mechanisms (e.g. core lab, blood gas instrument) in the above situations. 01/28/2025 1:30 PM EDT us [facility] Provider POC TESTING Final Result [facility] POINT OF CARE [address] 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
--- OUTSIDE RECORDS SUMMARY | 2025-01-30 11:00 | XMS_ITS | Encounter Summary ---
Author Organization [facility] Address [facility] [place] [address] Care Team Providers Care General Expeditor Name Role Phone Beka Blackman MD Primary Care Provider [phone] Shirley Jaramillo MD Unavailable + [phone] Source Comments In the event this information is protected by the Federal Confidentiality of Alcohol and Drug AbusePatient Records regulations: The Federal rules restrict any use of the information to criminally investigate or prosecute any alcohol or drug abuse patient.[facility] Reason for Visit * Reason Comments Consult * Consult, Test, Treat (Routine) - Closed Specialty Diagnoses / Procedures Referred By Contac t Referred To Contact Oncology Diagnoses Head and neck cancer (HCC) Procedures CONSULT TO ONCOLOGY OFFICE/OUTPATIENT [facility] 60 MINUTES Evy Dozier MD [facility] [place] [address] Phone: tel: fax: Referral ID Status Reason Start Date Expiration Date V isits Requested Visits Authorized [id number] Closed PCP Requested Referral 01/27/2025 01/27/2026 1 1 Encounter Details Date Type Department Care Team (Latest Contact Info) Description 01/30/2025 11:00 AM EDT Visit (SP) Office Hematology/[place] [address] Chandan Benjamin MD [facility] [place] [address] Head and neck cancer (HCC); 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 Last address used for calculation [address] 01/27/2025 Sex and Gender Information Value Date Recorded Sex Assigned at Not on file Legal Sex Male 11:10 AM EDT Gender Identity Not on file Sexual Orientation Not on file documented as of this encounter Last Filed Vital Signs Vital Sign Reading Time Taken Comments Blood Pressure 124/74 01/30/2025 11:24 AM EDT Pulse 73 01/30/2025 11:24 AM EDT Temperature 36.6 C (97.9 F) 01/30/2025 11:24 AM EDT Respiratory Rate 18 01/30/2025 11:24 AM EDT Oxygen Saturation 96% 01/30/2025 11:24 AM EDT Inhaled Oxygen Concentration - - Weight 90.9 kg (200 lb 6.4 oz) 01/30/2025 11:24 AM EDT Height - - Body Mass Index 30.47 01/27/2025 8:55 AM EDT documented in this encounter Patient Instructions * Patient Instructions* Chandan Benjamin MD - 01/30/2025 12:01 PM EDT Labs today Anticipate weekly cisplatin / carboplatin with radiation Needs education Needs consent Coordinate start with RT and will need labs weekly. 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 The PET scan completed on January 28, 2025, was reviewed today. The mass is visible on the scan, but its exact size and any potential spread will be further evaluated by the radiologist. - To treat your cancer while preserving your voice, we plan to proceed with combined chemotherapy and radiation therapy. You will have 35 radiation treatments. - Chemotherapy will be administered weekly for seven weeks. The specific medication will depend on your kidney function, which will be assessed through a blood test today. If your kidneys are healthy, we will use cisplatin. If there are concerns about your kidney function, we will use carboplatin instead. - Chemotherapy sessions will take several hours, as you will receive intravenous hydration before and after treatment to protect your kidneys. You will not need to drink extra fluids at home for thispurpose. We discussed your next steps: - Bloodwork will be drawn today to evaluate your kidney function and determine the appropriate chemotherapy medication. - Once the chemotherapy medication is decided, we will schedule an education session to review the treatment plan and provide detailed instructions. - You will need to have a face mask fitted for your radiation therapy. Please follow up with Dr. Mcdonnell???s office to ensure this is scheduled. - We will schedule a follow-up appointment with me to finalize your treatment plan and begin therapy. Please let us know if you experience any new or worsening symptoms, such as difficulty breathing, swallowing, or increased hoarseness. We will work to begin your treatment as soon as possible. documented in this encounter Progress Notes * Chandan Benjamin MD - 01/30/2025 11:43 AM EDT Images from the original note were not included. NAME: Chad Mckeon [facility] NO.: [id number] DATE OF SERVICE: January 30, 2025 Referring Provider: Consultation requested by Dr. Dozier for an opinion regarding Mr. Chad Mckeon, and my final recommendations will be communicated back to the requesting physician by way of shared medical recordor letter via US mail. Additional Clinicians involved in Chad Mckeon's care: Elaine Jaramillo DIAGNOSIS: CASE SUMMARY / ASSESSMENT: 84 year old man with vocal cord squamous cell cancer presents for opinion regarding chemotherapy fartun given with Radiation for organ preservation. SUMMARIZED PLAN OF CARE: Labs today Anticipate weekly cisplatin / carboplatin with radiation Needs education Needs consent Coordinate start with RT and will need labs weekly. RTC for 2 nd week of treatment with chemo and labs 1. 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 PET scan performed on 01/28/2025; results pending. Patient presents for laryngeal preservation treatment with combined chemotherapy and radiation. Hoarseness noted, but no dysphagia or odynophagia reported. - Initiate 35 radiation treatments. - Ordered renal function tests to determine eligibility for cisplatin vs. carboplatin chemotherapy. - Schedule weekly chemotherapy sessions for seven weeks, concurrent with radiation. - Provide chemotherapy education once renal function results are available. - Follow-up appointment to review PET scan results and finalize chemotherapy regimen. 2. Personal history of nicotine dependence (Z87.891) 50-year history of smoking, ceased 20 years ago. Likely contributory to current malignancy. 3. Presence of aortocoronary bypass graft (Z95.1) Underwent CABG on 01/15/2023. No current complications reported. 4. Type 2 diabetes mellitus without complication, unspecified whether terminal makeup operator insulin use (HCC) (E11.9) Diabetes mellitus noted; no complications reported. CASE HISTORY: Reverse Chronological Order (01/28/2025) PET Scan: Final results pending. Preliminary review notes normal kidneys and liver. 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 (01/07/2025) Laryngoscopic Examination: Left true vocal cord mass with fixation. HPI: Initial Visit, January 30, 2025: Chad Mckeon presents today Hematology and Oncology evaluation. He is a 84 year old male. 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 On 01/21/2025, a biopsy revealed keratinizing squamous cell carcinoma. A PET scan was completed on 01/28/2025, with results pending. Patient reports progressive hoarseness and increased effort required to speak, but denies pain or dysphagia. He also notes dyspnea and significant weakness in his left leg following CABG on 01/15/2023, which involved saphenous vein harvesting. He reports difficulty lifting his left leg and ongoing issues with his left hip, which requires replacement. (01/28/2025) PET Scan: Final results pending. Preliminary review notes normal kidneys and liver. 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 (01/07/2025) Laryngoscopic Examination: Left true vocal cord mass with fixation. Ears/Nose/Mouth/Throat: (+) hoarseness, (-) sore throat Respiratory: (+) dyspnea Gastrointestinal: (-) dysphagia Musculoskeletal: (+) left leg weakness REVIEW OF SYSTEMS Per HPI and otherwise negative by full review of organ systems. ECOG PERFORMANCE STATUS: 1 PHYSICAL EXAMINATION: Vitals: BP 124/74 Pulse 73 Temp (Src) 97.9 (Temporal) Resp 18 Wt 200 lb 6.4 oz (90.9kg) SpO2 96% Body surface area is 2.09 meters squared. Exam limited to gross visualization where appropriate. Gen.: This is an age-appropriate patient in no acute distress. Head: Appears atraumatic with no visible lesions. Eyes: Pupils equally round and reactive to light, extraocular muscles are intact. Neck: Supple. Respiratory: Appears to be respiring comfortably. Neurologic: Nonfocal to gross visualization. Alert and oriented ??3. Psychiatric: No evidence of inappropriate anxiety or depression. Skin: Visible areas of skin without rash, lesions, wounds or petechiae. ALLERGIES: ALLERGIES No Known Allergies MEDICATIONS: aspirin, enteric [...] WITH VITAMIN D3 ORAL) Take by mouth. LABORATORY VALUES: WBC (k/uL) Date Value 01/30/2025 8.56 RBC (m/uL) Date Value 01/30/2025 4.77 Hemoglobin (g/dL) Date Value 01/30/2025 15.0 Hematocrit (%) Date Value 01/30/2025 42.6 MCV (fL) Date Value 01/30/2025 89.3 MCH (pg) Date Value 01/30/2025 31.4 MCHC (g/dL) Date Value 01/30/2025 35.2 RDW-CV (%) Date Value 01/30/2025 13.6 Platelet Count (k/uL) Date Value 01/30/2025 139 (L) MPV (fL) Date Value 01/30/2025 8.6 (L) Glucose (mg/dL) Date Value 01/30/2025 199 (H) BUN (mg/dL) Date Value 01/30/2025 17 Creatinine (mg/dL) Date Value 01/30/2025 0.88 Sodium (mmol/L) Date Value 01/30/2025 139 Potassium (mmol/L) Date Value 01/30/2025 4.4 Chloride (mmol/L) Date Value 01/30/2025 102 CO2 (mmol/L) Date Value 01/30/2025 25 Protein, Total (g/dL) Date Value 01/30/2025 6.8 Albumin (g/dL) Date Value 01/30/2025 4.5 Calcium, Total (mg/dL) Date Value 01/30/2025 9.5 Alkaline Phosphatase (U/L) Date Value 01/30/2025 131 (H) Bilirubin, Total (mg/dL) Date Value 01/30/2025 0.6 AST (U/L) Date Value 01/30/2025 18 ALT (U/L) Date Value 01/30/2025 19 DIAGNOSIS: (C76.0) Head and neck cancer (HCC) Plan: CONSULT TO ONCOLOGY, COMPLETE BLOOD COUNT AND DIFFERENTIAL, COMPREHENSIVE METABOLIC PANEL (C32.0) 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) (Z87.891) Personal history of nicotine dependence (Z95.1) Presence of aortocoronary bypass graft (E11.9) Type 2 diabetes mellitus without complication, unspecified whether terminal makeup operator insulin use (HCC) PAST MEDICAL HISTORY Diagnosis Date Diabetes mellitus (HCC) HTN (hypertension) Hypercholesteremia PAST SURGICAL HISTORY Procedure Laterality Date PAST SURGICAL HISTORY OF 2022 cardiac bypass- Social History Tobacco Use Smoking status: Former Types: Cigarettes Start date: 1953 Smokeless tobacco: Never Substance Use Topics Alcohol use: Not Currently Drug use: Not Currently History reviewed. No pertinent family history. I spent a total of 60 minutes on the date of the service which included preparing to see the patient, [id number] patient care, completing clinical documentation, obtaining and/or reviewing separately obtained history, performing a medically appropriate examination, counseling and educating the pat ient/family/caregiver, ordering medications, tests, or procedures, independently interpreting results (not separately reported), communicating results to the patient/family/caregiver, and care coordination (not separately reported). Chandan Benjamin MD, CPE Hematology and Oncology Services Provided at: [place], [place] CC: [facility] Beka Blackman MD [address] [facility] [address] documented in this encounter Plan of Treatment Scheduled Orders Name Type Priority Associated Diagnoses Orde r Schedule COMPLETE BLOOD COUNT AND DIFFERENTIAL Lab Routine Head and neck cancer (HCC) Once per week for 10 Occurrences starting 01/30/2025 until 01/30/2026, 1 completed COMPREHENSIVE METABOLIC PANEL Lab Routine Head and neck cancer (HCC) Once per week for 10 Occurrences starting 01/30/2025 until 01/30/2026, 1 completed documented as of this encounter Results * (ABNORMAL) COMPREHENSIVE METABOLIC PANEL (01/30/2025 12:09 PM EDT) [facility] Protein, Total 6.8 6.3 - 8.0 g/dL 01/30/2025 1:05 PM T [facility] Albumin 4.5 3.9 - 4.9 g/dL 01/30/2025 1:05 PM [facility] Calcium, Total 9.5 8.5 - 10.2 mg/dL 01/30/2025 1:05 PM EDT [facility] Bilirubin, Total 0.6 0.2 - 1.3 mg/dL 01/30/2025 1:05 PM [facility] Alkaline Phosphatase 131(H) 38 - 113 U/L 01/30/2025 1:05 PM [facility] AST 18 14 - 40 U/L 01/30/2025 1:05 PM [facility] ALT 19 10 - 54 U/L 01/30/2025 1:05 PM [facility] Glucose 199(H) 74 - 99 mg/dL 01/30/2025 1:05 PM [facility] Comment: The [place] Diabetes Association (ADA) provides guidance for cutoff values for fasting glucose and random glucose. The ADA defines fasting as no caloric intake for at least 8 hours. Fasting plasma glucose results between 100 to 125 mg/dL indicate increased risk for diabetes (prediabetes). Fasting plasma glucose results greater than or equal to 126 mg/dL meet the criteria for diagnosis of diabetes. In the absence of unequivocal hyperglycemia, results should be confirmed by repeat testing. In a patient with classic symptoms of hyperglycemia or hyperglycemic crisis, random plasma glucose results greater than or equal to 200 mg/dL meet the criteria for diagnosis of diabetes. Reference: Standards of Medical Care in Diabetes 2016, [place] Diabetes Association. Diabetes Care. 2016.39(Suppl 1). BUN 17 9 - 24 mg/dL 01/30/2025 1:05 PM [facility] Creatinine 0.88 0.73 - 1.22 mg/dL 01/30/2025 1:05 PM [facility] Sodium 139 136 - 144 mmol/L 01/30/2025 1:05 PM EDT [facility] Potassium 4.4 3.7 - 5.1 mmol/L 01/30/2025 1:05 PM EDT [facility] Chloride 102 98 - 107 mmol/L 01/30/2025 1:05 PM EDT [facility] CO2 25 22 - 30 mmol/L 01/30/2025 1:05 PM EDT [facility] Anion Gap 12 8 - 15 mmol/L 01/30/2025 1:05 PM EDT [facility] Estimated Glomerular Filtration Rate 85 >=60 mL/min/1. 73m 01/30/2025 1:05 PM EDT [facility] Comment:Estimated Glomerular Filtration Rate (eGFR) is calculated using the 2020 CKD-EPI creatinine equation. This equation utilizes serum creatinine, sex, and age as parameters. The creatinine assay has traceable calibration to isotope dilution- mass spectrometry. Refer to KDIGO guidelines for clinical interpretation. In patients with unstable renal function, e.g. those with acute kidney injury, the eGFR may not accurately reflect actual GFR. Blood BLOOD SPECIMEN / Unknown Venipuncture / Unknown 01/30/2025 12:09 PM EDT 01/30/2025 12:09 PM EDT us Chandan Benjamin MD LABORATORY Final Result [facility] [address] [place] [address] * (ABNORMAL) COMPLETE BLOOD COUNT AND DIFFERENTIAL (01/30/2025 12:09 PM EDT) WBC 8.56 3.70 - 11.00 k/uL 01/30/2025 12:26 PM EDT [facility] RBC 4.77 4.20 - 6.00 m/uL 01/30/2025 12:26 PM EDT [facility] Hemoglobin 15.0 13.0 - 17.0 g/dL 01/30/2025 12:26 PM EDT [facility] Hematocrit 42.6 39.0 - 51.0 % 01/30/2025 12:26 PM EDT [facility] MCV 89.3 80.0 - 100.0 fL 01/30/2025 12:26 PM EDT [facility] MCH 31.4 26.0 - 34.0 pg 01/30/2025 12:26 PM EDT [facility] MCHC 35.2 30.5 - 36.0 g/dL 01/30/2025 12:26 PM EDT [facility] RDW-CV 13.6 11.5 - 15.0 % 01/30/2025 12:26 PM EDT [facility] Platelet Count 139(L) 150 - 400 k/uL 01/30/2025 12:26 PM EDT [facility] MPV 8.6(L) 9.0 - 12.7 fL 01/30/2025 12:26 PM EDT [facility] Neutrophils % 67.7 % 01/30/2025 12:26 PM EDT [facility] Abs Neut 5.79 1.45 - 7.50 k/uL 01/30/2025 12:26 PM EDT [facility] Lymphocytes % 16.7 % 01/30/2025 12:26 PM EDT [facility] Abs Lymph 1.43 1.00 - 4.00 k/uL 01/30/2025 12:26 PM EDT [facility] Monocytes % 13.4 % 01/30/2025 12:26 PM EDT [facility] Abs Boone 1.15(H) <0.87 k/uL 01/30/2025 12:26 PM EDT [facility] Eosinophils % 0.9 % 01/30/2025 12:26 PM EDT [facility] Abs Eosin 0.08 <0.46 k/uL 01/30/2025 12:26 PM EDT [facility] Basophils % 0.5 % 01/30/2025 12:26 PM EDT [facility] Abs Baso 0.04 <0.11 k/uL 01/30/2025 12:26 PM EDT [facility] Immature Granulocytes % 0.8 % 01/30/2025 12:26 PM EDT [facility] Abs Immature Gran 0.07 <0.10 k/uL 01/30/2025 12:26 PM EDT [facility] NRBC 0.0 /100 WBC 01/30/2025 12:26 PM EDT [facility] Absolute nRBC <0.01 <0.01 k/uL 01/30/2025 12:26 PM EDT [facility] Diff Type Auto 01/30/2025 12:26 PM EDT [facility] Blood BLOOD SPECIMEN / Unknown Venipuncture / Unknown 01/30/2025 12:09 PM EDT 01/30/2025 12:09 PM EDT Chandan Benjamin MD LABORATORY Final Result [facility] [address] [place] [address] documented in this encounter Visit Diagnoses Diagnosis Head and neck cancer (HCC) Malignant neoplasm of head, face, and neck 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) Personal history of nicotine dependence Personal history of tobacco use, presenting hazards to health 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 Type 2 diabetes mellitus without complication, unspecified whether terminal makeup operator insulin use (HCC) documented in this encounter Care Teams General Expeditor Relationship Specialty Start Date End Date Beka Blackman MD [address] [place] [address] PCP - General Family Medicine 12/02/15 Shirley Jaramillo MD [address] [place] [id number] Referring Ent - Otolaryngology 01/20/25 documented as of this encounter
--- OUTSIDE RECORDS SUMMARY | 2025-02-05 08:45 | XMS_ITS | Encounter Summary ---
Author Organization [facility] Address [address] [place] [address] Care Team Providers Care Senior Architect/Design Manager Name Role Phone Beka Blackman MD Primary Care Provider + Shirley Jaramillo MD Unavailable + [phone] Chandan Benjamin MD Unavailable [phone] Evy Dozier MD Unavailable [phone] Aleksandra Rollins RN Unavailable [phone] Source Comments In the event this information is protected by the Federal Confidentiality of Alcohol and Drug AbusePatient Records regulations: The Federal rules restrict any use of the information to criminally investigate or prosecute any alcohol or drug abuse patient.[facility] Encounter Details Date Type Department Care Team (Late st Contact Info) Description 02/05/2025 8:45 AM EDT Office Visit Radiation Oncology [facility] [place] [address] Evy Dozier MD [address] [place] [address] [place] [address] Head and neck cancer (HCC) (Primary Dx); Lung nodule Social History Tobacco Use Types Packs/Day Years [...] is lower risk 4 01/27/2025 Data from: https://www.neighborhoodatlas.medicine.[facility]/. Last address used for calculation [address] 01/27/2025 Sex and Gender Information Value Date Recorded Sex Assigned at Not on file Legal Sex Male 11:10 AM EDT Gender Identity Not on file Sexual Orientation Not on file documented as of this encounter Progress Notes * Evy Dozier MD - 02/05/2025 9:34 AM EDT Radiation Oncology - New Patient/Consult Note PATIENT NAME: Chad Mckeon PATIENT : 1940 DIAGNOSIS: Squamous cell carcinoma involving the left vocal cord with extension into the false cordand fixation of the vocal cord, T3 N0 M0. Date of Diagnosis: January 02, 2025 Primary Site: Larynx Glottic Laterality: Left HPI: Patient returns for follow-up and potential simulation. He has undergone further workup including FDG PET. He denies any problems. Denies dyspnea. Denies dysphagia. Reviewing his history he does have a history of CABG with sternotomy 2022. He denies any current pain or discomfort within the sternal area. No dyspnea or pleuritic pain. 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 Patient underwent direct laryngoscopy with biopsy on [...] loss: No ALLERGIES No Known Allergies MEDICATIONS: ondansetron (ZOFRAN) 8 mg tablet Take 1 tablet by mouth every 8 hours as needed for nausea/vomiting. prochlorperazine (COMPAZINE) 10 mg tablet Take 1 tablet by mouth every 6 hours as needed. aspirin, enteric coated (ASPIRIN, ENTERIC COATED) 81 [...] WITH VITAMIN D3 ORAL) Take by mouth. 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 No PAST SURGICAL HISTORY Procedure Laterality Date PAST SURGICAL HISTORY OF 2022 cardiac bypass- No family history on file. Social History Tobacco Use Smoking status: Former [...] Appearance: Alert and oriented. No acute distress. Neck: Normal ROM. No palpable cervical or supraclavicular adenopathy. Chest: No respiratory distress. Lungs clear to auscultation bilaterally. Well- healed incisional area mid chest. No tenderness. No soft tissue nodules appreciated Lymphatics: No palpable lymphadenopathy. Hematologic: No signs of active bleeding. RADIOLOGY/LABORATORY DATA: see HPI ASSESSMENT/PLAN: 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 T3 squamous cell carcinoma of the left vocal cord with extension into the supraglottis. No cervicaladenopathy on pet imaging. Mediastinal/right paratracheal node identified as suspicious for malignancy. This would be an unusual pattern of spread or is laryngeal cancer. He has some other subtle lung findings but no evident other pathology other than persistent uptake within the sternal area that is presumed related to his sternotomy 2 years ago. No clinical evidence of active infection or symptomatic process in that region. Recommend further evaluation with biopsy by EBUS if possible. Will refer him to pulmonary at [facility] in consideration of this. Signed by: Evy Dozier MD cc: MD Shirley Morrow MD [address] [facility] [place] [address] documented in this encounter Plan of Treatment Not on file documented as of this encounter Visit Diagnoses Diagnosis Head and neck cancer (HCC)- Primary Malignant neoplasm of head, face, and neck Lung nodule Solitary pulmonary nodule documented in this encounter Care Teams Senior Architect/Design Manager Relationship Specialty Start Date End Date Beka Blackman MD [address] [place] [address] PCP - General Family Medicine 12/02/15 Shirley Jaramillo MD [address] [facility] [address] [place] [address] Referring Ent - Otolaryngology 01/20/25 Chandan Benjamin MD [address] [facility] [place] [address] Physician Hematology/Oncology 02/03/25 Evy Dozier MD [address] [facility] [place] [address] Physician Radiation Oncology 02/03/25 Aleksandra Rollins, YONATAN [address] [facility] [place] [address] Specialty It Portfolio Manager Hematology/Oncology 02/03/25 documented as of this encounter
--- OUTSIDE RECORDS SUMMARY | 2025-02-09 09:45 | XMS_ITS | Encounter Summary ---
Author Organization [facility] Address [facility] [place] [address] Care Team Providers Care Front Elevator Operator Name Role Phone Beka Blackman MD Primary Care Provider + Shirley Jaramillo MD Unavailable + [phone] Chandan Benjamin MD Unavailable [phone] Evy Dozier MD Unavailable [phone] Aleksandra Rollins RN Unavailable +[phone] Source Comments In the event this information is protected by the Federal Confidentiality of Alcohol and Drug AbusePatient Records regulations: The Federal rules restrict any use of the information to criminally investigate or prosecute any alcohol or drug abuse patient.[facility] Encounter Details Date Type Department Care Team (Late st Contact Info) Description 02/09/2025 9:45 AM EDT Education Hematology/Oncology [address] [place], [place] [id number] Yasmin Qiu, FERNIE [address] [place] [id number] Arrived Social History Tobacco Use Types Packs/Day Years [...] is lower risk 4 01/27/2025 Data from: https://www.neighborhoodatlas.medicine.[facility].edu/. Last address used for calculation [address] 01/27/2025 Sex and Gender Information Value Date Recorded Sex Assigned at Not on file Legal Sex Male 11:10 AM EDT Gender Identity Not on file Sexual Orientation Not on file documented as of this encounter Plan of Treatment Not on file documented as of this encounter Visit Diagnoses Not on filedocumented in this encounter Care Teams Front Elevator Operator Relationship Specialty Start Date End Date Beka Blackman MD [address] [place] [address] PCP - General Family Medicine 12/02/15 Shirley Jaramillo MD [address] [facility] [address] [place] [address] Referring Ent - Otolaryngology 01/20/25 Chandan Benjamin MD [address] [facility] [place] [address] Physician Hematology/Oncology 02/03/25 Evy Dozier MD [address] [place] [address] Physician Radiation Oncology 02/03/25 Aleksandra Rollins, YONATAN [address] [place] [address] Specialty International Marketing Specialist Hematology/Oncology 02/03/25 documented as of this encounter
--- OUTSIDE RECORDS SUMMARY | 2025-02-09 10:53 | XMS_ITS | Encounter Summary ---
Author Organization [facility] Address [address] [place] [address] Care Team Providers Care Athletic Equipment Manager Name Role Phone Beka Blackman MD Primary Care Provider +- Shirley Jaramillo MD Unavailable + [phone] Chandan Benjamin MD Unavailable [phone] Evy Dozier MD Unavailable [phone] Aleksandra Rollins RN Unavailable [phone] Source Comments In the event this information is protected by the Federal Confidentiality of Alcohol and Drug AbusePatient Records regulations: The Federal rules restrict any use of the information to criminally investigate or prosecute any alcohol or drug abuse patient.[facility] Reason for Visit * Reason Comments Care Coordination Antiemetics Encounter Details Date Type Department Care Team (Late st Contact Info) Description 02/03/2025 Telephone Hematology/Oncology [address] [place] [address] [place] [address] Aleksandra Rollins, RN [address] [place] [address] [place] [address] Care Coordination (Antiemetics) Social History Tobacco Use Types Packs/Day Years [...] lower risk 4 01/27/2025 Data from: https://www.neighborhoodatlas.medicine.[facility]/. Last address used for calculation [address] 01/27/2025 Sex and Gender Information Value Date Recorded Sex Assigned at Not on file Legal Sex Male 11:10 AM EDT Gender Identity Not on file Sexual Orientation Not on file documented as of this encounter Miscellaneous Notes * Telephone Encounter - Chandan Benjamin MD - 02/03/2025 3:32 PM EDT Signed thanks * Telephone Encounter - Aleksandra Rollins RN - 02/03/2025 2:55 PM EDT Pt will be in on for education (Cisplatin). Scripts for antiemetics pended. Aleksandra Rollins, RN documented in this encounter Plan of Treatment Not on file documented as of this encounter Visit Diagnoses Not on filedocumented in this encounter Care Teams Athletic Equipment Manager Relationship Specialty Start Date End Date Beka Blackman MD [address] [place] [address] PCP - General Family Medicine 12/02/15 Shirley Jaramillo MD [address] [facility] [address] [place] [address] Referring Ent - Otolaryngology 01/20/25 Chandan Benjamin MD [address] [place] [address] [place] [address] Physician Hematology/Oncology 02/03/25 Evy Dozier MD [address] [place] [address] Physician Radiation Oncology 02/03/25 Aleksandra Rollins, YONATAN [address] [facility] [place] [address] Specialty Armed Security Guard Hematology/Oncology 02/03/25 documented as of this encounter
--- OUTSIDE RECORDS SUMMARY | 2025-02-09 10:53 | XMS_ITS | Encounter Summary ---
Author Organization Address [facility] [place] [address] Care Team Providers Care Flight Paramedic Name Role Phone Beka Blackman MD Primary Care Provider + Shirley Jaramillo MD Unavailable + [phone] Chandan Benjamin MD Unavailable [phone] Evy Dozier MD Unavailable [phone] Aleksandra Rollins RN Unavailable [phone] Source Comments In the event this information is protected by the Federal Confidentiality of Alcohol and Drug AbusePatient Records regulations: The Federal rules restrict any use of the information to criminally investigate or prosecute any alcohol or drug abuse patient. Encounter Details Date Type Department Care Team (Late st Contact Info) Description 02/05/2025 Telephone Cancer Appts [address] [place] [address] Evy Dozier MD [address] [place] [address] [place] [address] Social History Tobacco Use Types Packs/Day Years Used Date Smoking Tobacco: Former Cigarettes S tarted: 1953 Smokeless Tobacco: Never Alcohol Use Standard Drinks/Week Comments Not Currently 0 (1 standard drink = 0.6 oz pur e alcohol) Area Deprivation Index Answer Date Samir rded National Score (1-100), lower number is lower ri 63 01/27/2025 State Score (1-10), lower number is lower risk 4 01/27/2025 Data from: https://www.neighborhoodatlas.medicine.[facility]/. Last address used for calculation [address] 01/27/2025 Sex and Gender Information Value Date Recorded Sex Assigned at Not on file Legal Sex Male 11:10 AM EDT Gender Identity Not on file Sexual Orientation Not on file documented as of this encounter Miscellaneous Notes * Telephone Encounter - Esthela Silva - 02/05/2025 10:50 AM EDT Sent a staff message to Dr. White and Sheridan Govea for Ebus. documented in this encounter Plan of Treatment Not on file documented as of this encounter Visit Diagnoses Not on filedocumented in this encounter Care Teams Flight Paramedic Relationship Specialty Start Date End Date Beka Blackman MD [address] [place] [address] PCP - General Family Medicine 12/02/15 Shirley Jaramillo MD [address] [place] [address] [address] [place] [address] Referring Ent - Otolaryngology 01/20/25 Chandan Benjamin MD [address] [place] [address] Physician Hematology/Oncology 02/03/25 Evy Dozier MD [address] [place] [address] Physician Radiation Oncology 02/03/25 Aleksandra Rollins, YONATAN [address] [place] [address] Specialty Golf Ball Inspector Hematology/Oncology 02/03/25 documented as of this encounter
--- OUTSIDE RECORDS SUMMARY | 2025-02-09 10:53 | XMS_ITS | Encounter Summary ---
Author Organization [facility] Address [address] [place] [address] Care Team Providers Care Meat Trimmer Name Role Phone Beka Blackman MD Primary Care Provider [phone] Shirley Jaramillo MD Unavailable + [phone] Source Comments In the event this information is protected by the Federal Confidentiality of Alcohol and Drug AbusePatient Records regulations: The Federal rules restrict any use of the information to criminally investigate or prosecute any alcohol or drug abuse patient.[facility] Reason for Visit * Reason Comments Patient Education Encounter Details Date Type Department Care Team (Late st Contact Info) Description 01/27/2025 Education Radiation Oncology [address] [place] [address] [place] [address] Chioma Powell, RN Patient Education Social History Tobacco Use Types Packs/Day Years [...] is lower risk 4 01/27/2025 Data from: https://www.neighborhoodatlas.medicine.[facility].edu/. Last address used for calculation [address] 01/27/2025 Sex and Gender Information Value Date Recorded Sex Assigned at Not on file Legal Sex Male 11:10 AM EDT Gender Identity Not on file Sexual Orientation Not on file documented as of this encounter Progress Notes * Chioma Powell RN - 01/27/2025 10:02 AM EDT Radiation Therapy - Patient Education Note PATIENT NAME: Chad Mckeon PATIENT January 27, 2025 [facility] FACILITY/LOCATION: [facility] READINESS TO LEARN Cognitive Ability: Alert and oriented Motivation to learn: Interested Family Support: High - Very involved in pt care Instruction provide to: Patient and Significant Other Patient learns best by: Multiple Methods Factors effecting learning: None Physical limitations effecting learning: Sensory Deficit Hearing: Hard of Hearing LEARNING RESPONSE Diagnosis: Pt simulated today for radiation therapy to head and neck. Education Topic/Teaching Points: Radiation therapy, Side effects, and OTV: Method of instruction: Written instruction/Handouts Verbal instruction Patient /Family response: Patient and friend/other verbalized understanding of radiation treatments, side effects, OTV, and transportation. Follow-up plan: Patient instructed to call with any further issues Recommend - Recommend continued instruction and follow up as directed Contact information given. Supplemental material: Informational handouts on Appetite, Esophagitis/Mucositis, Fatigue, Head andneck packet, Skin changes, Salt and soda rinses, and patient education binder. Referral (recommendation): Dietitian Patient has an Onbody or Implanted device: No Signed by: Chioma Powell RN documented in this encounter Plan of Treatment Not on file documented as of this encounter Visit Diagnoses Not on filedocumented in this encounter Care Teams Meat Trimmer Relationship Specialty Start Date End Date Beka Blackman MD [address] [place] [address] PCP - General Family Medicine 12/02/15 Shirley Jaramillo MD [address] [place] [address] Referring Ent - Otolaryngology 01/20/25 documented as of this encounter
--- OUTSIDE RECORDS SUMMARY | 2025-02-09 10:53 | XMS_ITS | Encounter Summary ---
Author Organization [facility] Address [facility] [place] [address] Care Team Providers Care Roll Edge Machine Operator Name Role Phone Beka Blackman MD Primary Care Provider [phone] Shirley Jaramillo MD Unavailable + [phone] Source Comments In the event this information is protected by the Federal Confidentiality of Alcohol and Drug AbusePatient Records regulations: The Federal rules restrict any use of the information to criminally investigate or prosecute any alcohol or drug abuse patient.[facility] Encounter Details Date Type Department Care Team (Latest Contact Info) Description 01/30/2025 Travel Social History Tobacco Use Types Packs/Day Years [...] is lower risk 4 01/27/2025 Data from: https://www.neighborhoodatlas.medicine.[facility].edu/. Last address used for calculation [address] [...] on filedocumented in this encounter Care Teams Roll Edge Machine Operator Relationship Specialty Start Date End Date Beka Blackman MD [address] [place], [place] [address] PCP - General Family Medicine 12/02/15 Shirley Jaramillo MD [address] [address] Referring Ent - Otolaryngology 01/20/25 documented as of this encounter
--- OUTSIDE RECORDS SUMMARY | 2025-02-09 10:53 | XMS_ITS | Encounter Summary ---
Author Organization [facility] Address [address] [place] [address] Care Team Providers Care Classroom Assistant Name Role Phone Beka Blackman MD Primary Care Provider + Shirley Jaramillo MD Unavailable + [phone] Chandan Benjamin MD Unavailable [phone] Evy Dozier MD Unavailable [phone] Aleksandra Rollins RN Unavailable [phone] Source Comments In the event this information is protected by the Federal Confidentiality of Alcohol and Drug AbusePatient Records regulations: The Federal rules restrict any use of the information to criminally investigate or prosecute any alcohol or drug abuse patient.[facility] Reason for Visit * Reason Comments Appointment Encounter Details Date Type Department Care Team (Late st Contact Info) Description 01/30/2025 Telephone Cancer Appts [facility] [place] [address] Chandan Benjamin MD [facility] [address] [facility] [place] [address] Appointment Social History Tobacco Use Types Packs/Day Years [...] is lower risk 4 01/27/2025 Data from: https://www.neighborhoodatlas.medicine.[facility].edu/. Last address used for calculation [address] 01/27/2025 Sex and Gender Information Value Date Recorded Sex Assigned at Not on file Legal Sex Male 11:10 AM EDT Gender Identity Not on file Sexual Orientation Not on file documented as of this encounter Miscellaneous Notes * Telephone Encounter - Esthela Silva - 02/05/2025 1:27 PM EDT Gonzalo Mcelroy MD P [place] Clerical Pool; Sheridan Govea, RN; Evy Dozier MD Thanks We'll get this in sam. He's on plavix, which will need a hold of at least 5 days. We will aim for next Sunday, but it may have to wait a bit longer due to plavix issue. * Telephone Encounter - Esthela Silva - 02/05/2025 10:55 AM EDT Sent a staff message to Dr. Mcelroy and Sheridan for EBUS * Telephone Encounter - Cihoma Powell RN - 02/05/2025 9:03 AM EDT FY-Dr. Dozier is referring Chad to Dr. Mcelroy for EBUS. SIM and chemo ed to be rescheduled after EBUS. I notified Audra Yanez Thanks Chioma Powell RN * Telephone Encounter - Fatoumata Lock - 02/02/2025 2:15 PM EDT Patient scheduled for SIM on 02/05 - added education appointment w/ Audra. Fatoumata Lock * Telephone Encounter - Fatoumata Lock - 01/30/2025 12:06 PM EDT Images from the original note were not included. Hi Team! If you could let us know start date. Thanks so much! Fatoumata Lock documented in this encounter Plan of Treatment Not on file documented as of this encounter Visit Diagnoses Not on filedocumented in this encounter Care Teams Classroom Assistant Relationship Specialty Start Date End Date Beka Blackman MD [address] [place] [address] PCP - General Family Medicine 12/02/15 Shirley Jaramillo MD [address] [place] [address] Referring Ent - Otolaryngology 01/20/25 Chandan Benjamin MD [address] [place] [address] Physician Hematology/Oncology 02/03/25 Evy Dozier MD [address] [place] [address] Physician Radiation Oncology 02/03/25 Aleksandra Rollins, YONATAN [address] [place] [address] Specialty Clasp Machine Operator Hematology/Oncology 02/03/25 documented as of this encounter
--- OUTSIDE RECORDS SUMMARY | 2025-02-09 10:54 | XMS_ITS | Encounter Summary ---
Author Organization [facility] Address [address] [place] [address] Care Team Providers Care Consulting Hr Professional Name Role Phone Beka Blackman MD Primary Care Provider [phone] Shirley Jaramillo MD Unavailable + [phone] Source Comments In the event this information is protected by the Federal Confidentiality of Alcohol and Drug AbusePatient Records regulations: The Federal rules restrict any use of the information to criminally investigate or prosecute any alcohol or drug abuse patient.[facility] Reason for Visit * Reason Comments Research Prescreen Encounter Details Date Type Department Care Team (Late st Contact Info) Description 01/26/2025 Abstract Hematology/Oncology [address] [facility] [place] [address] Xiomara Story RN [address] [facility] [place] [address] Research (Prescreen) Social History Tobacco Use Types Packs/Day Years Used Date Smoking Tobacco: Never Assessed Area Deprivation Index Answer Date Samir rded National Score (1-100), lower number is lower ri sk 63 01/27/2025 State Score (1-10), lower number is lower risk 4 01/27/2025 Data from: https://www.neighborhoodatlas.medicine.[facility].edu/. Last address used for calculation [address] 01/27/2025 Sex and Gender Information Value Date Recorded Sex Assigned at Not on file Legal Sex Male 11:10 AM EDT Gender Identity Not on file Sexual Orientation Not on file documented as of this encounter Progress Notes * Xiomara Story RN - 01/26/2025 12:59 PM EDTSummary: Prescreen Images from the original note were not included. Chad Mckeon was reviewed for potential clinical trial enrollment on [facility] #[id number] by the [facility] on 01/26/25. 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 Requesting alliance party notified. IRB [id number] Randomized Phase II/III Trial of Radiation with High-Dose Cisplatin (100 Mg/M2) Every Three Weeks Versus Radiation with Low-Dose Weekly Cisplatin (40 Mg/M2) For Patients with Locoregionally Advanced Squamous Cell Carcinoma of the Head and Neck ([facility]) No Study tasks were completed as a result of this initial review. Xiomara Stoyr, MSN, RN Research Nurse Coordinator documented in this encounter Plan of Treatment Not on file documented as of this encounter Visit Diagnoses Not on filedocumented in this encounter Care Teams Consulting Hr Professional Relationship Specialty Start Date End Date Beka Blackman MD [address] [place] [address] PCP - General Family Medicine 12/02/15 Shirley Jaramillo MD [address] [place] [address] [address] [place] [address] Referring Ent - Otolaryngology 01/20/25 documented as of this encounter
--- OUTSIDE RECORDS SUMMARY | 2025-02-09 10:54 | XMS_ITS | Encounter Summary ---
Author Organization [facility] Address [address] [place] [address] Care Team Providers Care Urban Gardening Specialist Name Role Phone Beka Blackman MD Primary Care Provider + Shirley Jaramillo MD Unavailable + [phone] Chandan Benjamin MD Unavailable [phone] Evy Dozier MD Unavailable [phone] Aleksandra Rollins RN Unavailable [phone] Source Comments In the event this information is protected by the Federal Confidentiality of Alcohol and Drug AbusePatient Records regulations: The Federal rules restrict any use of the information to criminally investigate or prosecute any alcohol or drug abuse patient.[facility] Reason for Referral * Outpatient Procedure (Routine) - New Request Specialty Diagnoses / Procedures Referred By Contac t Referred To [facility] Diagnoses Adenopathy Procedures ECG COMPLETE ECG ROUTINE ECG W/LEAST 12 LDS W/I&[place] [address] [place] [address] Phone: tel: fax: [facility] [address] [address] Referral ID Status Reason Start Date Expiration Date Visits Requested Visits Authorized [id number] New Request Auto-Generat ed Referral 02/05/2025 02/05/2026 1 1 Reason for Visit * Reason Comments Bronchoscopy Scheduling Encounter Details Date Type Department Care Team (Late st Contact Info) Description 02/05/2025 Patient Update [facility] Provider Adult [address] [place] [address] Gonzalo Mcelroy MD [address] [place] [address] Bronchoscopy Scheduling Social History Tobacco Use Types Packs/Day Years [...] is lower risk 4 01/27/2025 Data from: https://www.neighborhoodatlas.medicine.[facility].edu/. Last address used for calculation [address] 01/27/2025 Sex and Gender Information Value Date Recorded Sex Assigned at Not on file Legal Sex Male 11:10 AM EDT Gender Identity Not on file Sexual Orientation Not on file documented as of this encounter Progress Notes * Sheridan Govea RN - 02/05/2025 2:52 PM EDT Patient requested a call back next week to discuss scheduling a bronchoscopy as he needs to work onobtaining transportation to the consult and procedure. Declined setting up [facility], unable to offervirtual visit. Sheridan Govea RN * Gonzalo Mcelroy MD - 02/05/2025 11:46 AM EDT Bronchoscopy Request: Please schedule patient for the following: Bronchoscopy Procedures: EBUS diagnostic Pre-Procedure visit required: Yes Visit type: New Consultation Anticipated Procedure Date: TBD Physician Performing Bronchoscopy: TBD Needs Labs: No Needs EKG: Yes Needs CT: No Does the pt need cardiac clearance? No Is patient on anticoagulants/anti-plt therapy? Yes Plavix or medications alike ok to stop medication for 5 days Is patient on GLP-1 agonsits (ie Ozempic, Mounjaro, Trulicity, etc)? No Is patient on SGLT2 inhibitors (???-flozin?? drugs - Jardiance, etc)? No PACC visit needed No Diagnosis/Reason for Bronchoscopy: Head/neck cancer, with PET avid mediastinal nodes Referred by: Tasia Reviewed by: MALCOLM Mcelroy MD February 05, 2025 11:46 AM documented in this encounter Plan of Treatment Scheduled Orders Name Type Priority Associated Diagnoses Orde r Schedule ECG COMPLETE ECG Routine Adenopathy 1 Occurrences starting 02/05/2025 until 02/05/2026 documented as of this encounter Visit Diagnoses Diagnosis Adenopathy- Primary Enlargement of lymph nodes documented in this encounter Care Teams Urban Gardening Specialist Relationship Specialty Start Date End Date Beka Blackman MD [address] [place] [address] PCP - General Family Medicine 12/02/15 Shirley Jaramillo MD [address] [place] [address] [address] [place] [address] Referring Ent - Otolaryngology 01/20/25 Chandan Benjamin MD [address] [facility] [place] [address] Physician Hematology/Oncology 02/03/25 Evy Dozier MD [address] [facility] [place] [address] Physician Radiation Oncology 02/03/25 Aleksandra Rollins, RN [address] [facility] [place] [address] Specialty Button Clamper Hematology/Oncology 02/03/25 documented as of this encounter
--- OUTSIDE RECORDS SUMMARY | 2025-02-09 10:54 | XMS_ITS ---
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 Current Treatment and Therapy Plans AMB CISPLATIN 40 D1,8,15,22,29,36,43 - ONCE* Plan Start Date:02/06/2025 Plan Provider:Chandan Benjamin MD Linked Problems Head and neck cancer (HCC)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
--- OUTSIDE RECORDS SUMMARY | 2025-02-09 10:54 | XMS_ITS | Encounter Summary ---
Author Organization [facility] Address [address] [place] [address] Care Team Providers Care Skirt Clipper Name Role Phone Beka Blackman MD Primary Care Provider + Shirley Jaramillo MD Unavailable [phone] Chandan Benjamin MD Unavailable [phone] Evy Dozier MD Unavailable [phone] Aleksandra Rollins RN Unavailable [phone] Source Comments In the event this information is protected by the Federal Confidentiality of Alcohol and Drug AbusePatient Records regulations: The Federal rules restrict any use of the information to criminally investigate or prosecute any alcohol or drug abuse patient.[facility] Reason for Visit * Reason Comments Appointment Encounter Details Date Type Department Care Team (Late st Contact Info) Description 01/27/2025 Telephone Radiation Oncology [facility] [place] [address] Evy Dozier MD [address] [place] [address] [place] [address] Appointment Social History Tobacco Use Types [...] is lower risk 4 01/27/2025 Data from: https://www.neighborhoodatlas.medicine.[facility].edu/. Last address used for calculation [address] 01/27/2025 Sex and Gender Information Value Date Recorded Sex Assigned at Not on file Legal Sex Male 11:10 AM EDT Gender Identity Not on file Sexual Orientation Not on file documented as of this encounter Miscellaneous Notes * Telephone Encounter - Esthela Silva - 02/02/2025 1:33 PM EDT Nutrition consult scheduled as a phone call, 02/09/2025 at 945am. Confirmed with patient * Telephone Encounter - Esthela Silva - 02/02/2025 8:05 AM EDT Spoke to patient, Confirmed arrival on 02/05 at 830am and no special instructions. Patientasking if other appts can be later due to dedicated driver wishes. Cortney - was the Nutrtion consult scheduled? * Telephone Encounter - Betty Gaston Tech - 01/30/2025 2:34 PM EDT PSS- I schedule sim on 02/05/2025 at 9:15am. Pre-sim consent at 8:45am. Nurse visit at 9:15am Arrival time of 8:30am , No special instructions Thank you, Betty Cervantes * Telephone Encounter - Jasmine Peter - 01/27/2025 10:31 AM EDT Rad Education was added to the schedule and checked in for today Jasmine Hoover PSS * Telephone Encounter - Chioma Powell RN - 01/27/2025 9:38 AM EDT PSS/RT: please schedule Consult with med onc PET SIM after treating neck with IV contrast and mask Consent needed Nurse visit day of SIM for IV start Nurse ed today Rad lab at PET per pt request Consult aerospace stress engineer Thanks Chioma Powell RN documented in this encounter Plan of Treatment Not on file documented as of this encounter Visit Diagnoses Not on filedocumented in this encounter Care Teams Skirt Clipper Relationship Specialty Start Date End Date Beka Blackman MD [address] [place] [address] PCP - General Family Medicine 12/02/15 Shirley Jaramillo MD [address] [facility] [address] [place] [address] Referring Ent - Otolaryngology 01/20/25 Chandan Benjamin MD [address] [place] [address] Physician Hematology/Oncology 02/03/25 Evy Dozier MD [address] [place] [address] Physician Radiation Oncology 02/03/25 Aleksandra Rollins, YONATAN [address] [facility] [place] [address] Specialty Telemetry Nurse Hematology/Oncology 02/03/25 documented as of this encounter
--- OUTSIDE RECORDS SUMMARY | 2025-02-09 10:54 | XMS_ITS | Encounter Summary ---
Author Organization [facility] Address [facility] [place] [address] Care Team Providers Care Tile Designer Name Role Phone Beka Blackman MD Primary Care Provider [phone] Shirley Jaramillo MD Unavailable [phone] Source Comments In the event this information is protected by the Federal Confidentiality of Alcohol and Drug AbusePatient Records regulations: The Federal rules restrict any use of the information to criminally investigate or prosecute any alcohol or drug abuse patient.[facility] Encounter Details Date Type Department Care Team (Latest Contact Info) Description 01/27/2025 Travel Social History Tobacco Use Types Packs/Day [...] is lower risk 4 01/27/2025 Data from: https://www.neighborhoodatlas.medicine.[facility].edu/. Last address used for calculation [address] [...] on filedocumented in this encounter Care Teams Tile Designer Relationship Specialty Start Date End Date Beka Blackman MD [address] [place], [place] [id number] PCP - General Family Medicine 12/02/15 Shirley Jaramillo MD [address] [address] Referring Ent - Otolaryngology 01/20/25 documented as of this encounter
--- OUTSIDE RECORDS SUMMARY | 2025-02-09 10:54 | XMS_ITS | Clinical Summary ---
Author Organization [facility] Address [address] [place] [address] Care Team Providers Care Performance Consultant Name Role Phone Beka Blackman MD Primary Care Provider [phone] Allergies No known active allergies Medications cetirizine (ZyrTEC) 10 mg tablet Take 10 mg by mouth in the morning. Active glimepiride (Amaryl) 4 mg tablet Take 4 mg by mouth before breakfast. Active metFORMIN (Glucophage) 500 mg tablet Take 500 mg by mouth with breakfast and with evening meal. Active potassium chloride CR (Klor-Con M20) 20 mEq ER tablet Take 20 mEq by mouth in the morning. 3 Active pantoprazole (ProtoNix) 40 mg EC tablet Take 40 mg by mouth in the morning. 3 Active magnesium oxide (Mag-Ox) 400 mg (241.3 mg magnesium) tablet Take 1 tablet by mouth if needed in the morning and at bedtime. 3 Active aspirin 81 mg EC tablet Take 81 mg by mouth in the morning. Active metoprolol tartrate (Lopressor) 25 mg tabletIndicatio ns:S/P CABG (coronary artery bypass graft) Take 0.5 tablets (12.5 mg) by mouth two times daily. 90 tablet 3 4 05/16/20 25 Active atorvastatin (Lipitor) 40 mg tabletIndicatio ns:S/P CABG (coronary artery bypass graft) Take 1 tablet (40 mg) by mouth at bedtime. 90 tablet 3 4 05/16/20 25 Active Active Problems Problem Noted Date Diagnosed Date Postoperative atrial fibrillation 01/21/2023 Atelectasis 01/21/2023 Acute blood loss as cause of postoperative anemi a 01/21/2023 Pleural effusion 01/17/2023 Hypomagnesemia 01/16/2023 Acute respiratory insufficiency 01/16/2023 Obesity 01/11/2023 Angina pectoris, unstable 01/09/2023 Overview (01/09/2023): Added automatically from request for surgery [id number] Chronic obstructive pulmonary disease 01/09/2023 Essential hypertension 01/09/2023 Assessment & Plan (05/16/2024 1:18 PM EDT): Hypertension is well controlled Continue metoprolol Renal function normal Hyperlipidemia 01/09/2023 Assessment & Plan (05/16/2024 1:19 PM EDT): Lipid abnormalities are well controlled, liver function normal Continue lipitor Type 2 diabetes mellitus without complication Unspecified macular degeneration 01/09/2023 Pure hyperglyceridemia 01/09/2023 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 Continue GDMT- ASA, plavix, metoprolol, lipitor Continue heart healthy diet and regular exercise Continue current treatment regimen. Continue current medications. Cardiac status will be reassessed in 6 months. Encounters Date Type Department Care Team Description 11/17/2024 Telephone [facility] [place] [address] [place] [address] Toshia Garcia MA from Last 3 Months Family History Medical History Relation Name Comments No Known Problems Mother Relation Name Status Comments Mother Social History Tobacco Use Types Packs/Day Years Used Date Smoking Tobacco: Former Cigarettes Smokeless Tobacco: Never Tobacco Cessation:Counseling Given: Not Answered Comments:Pt has already quit smoking. Since 2005 Humiliation, Afraid, Rape, and Kick questionnair e Answer Date Recorded Within the last year, have y ou been afraid of your partner or ex-partner? No 01/10/2023 Emotionally Abused Not on file 01/10/2023 Physically Abused Not on file 01/10/2023 Sexually Abused Not on file 01/10/2023 Overall Financial Resource Strain (CARDIA) Answe r Date Recorded How hard is it for you to pa y for the very basics like food, housing, medical care, and heating? Not very hard 01/10/2023 PHQ-2 Answer Date Recorded Patient Health Questionnaire-2 Score 0 02/15/2023 [place] Safety & Environment Answer Date Rec orded Fear of Current or Ex-Partner Not on file Emotionally Abused Not on file 01/16/2024 Physically Abused Not on file 01/16/2024 Sexually Abused Not on file 01/16/2024 Physically or Sexually Abused Not on file Transportation Answer Date Recorded In the past 12 months, has l ack of transportation kept you from medical appointments or from getting medications? No 01/10/2023 Lack of Transportation (Non-Medical) Not on file 01/10/2023 Housing Stability Vital Sign Answer Camron e Recorded Unable to Pay for Housing in the Last Year Not o n file 01/10/2023 Number of Places Lived in the Last Year Not on f ile 01/10/2023 In the last 12 months, was t here a time when you did not have a steady place to sleep or slept in a half-way (including now)? No 01/10/2023 Hunger Vital Sign Answer Date Recorded Within the past 12 months, y ou worried that your food would run out before you got the money to buy more. Never true 01/11/20 23 Ran Out of Food in the Last Year Not on file 01/10/2023 Sex and Gender Information Value Date Recorded Sex Assigned at Male 01/10/2023 8:18 AM EDT Legal Sex Male 7:44 AM EDT Gender Identity Male 01/10/2023 8:18 AM EDT Sexual Orientation Choose not to disclose 2022 8:18 AM EDT Last Filed Vital Signs Vital Sign Reading Time Taken Comments Blood Pressure 128/80 10/31/2024 2:08 PM EST Pulse 85 10/31/2024 2:08 PM EST Temperature 36.6 C (97.9 F) 02/15/2023 2:06 PM EDT Respiratory Rate 16 02/15/2023 2:06 PM EDT Oxygen Saturation 94% 10/31/2024 2:08 PM EST Inhaled Oxygen Concentration - - Weight 93.4 kg (206 lb) 10/31/2024 2:08 PM EST Height 175.3 cm (5' 9 ) 10/31/2024 2:08 PM EST Body Mass Index 30.42 10/31/2024 2:08 PM EST Plan of Treatment Health Maintenance Due Date Last Done Comments Medicare Annual Wellness (AWV) 1940 Diabetes: Retinopathy Screening 1951 Depression Screening 1953 Diabetes: Urine Protein Screening 1960 Adult Tetanus 1963 Zoster Vaccines (1 of 2) 1991 Fall Risk Screening 2006 Pneumococcal Vaccine: 50+ Years (2 of 2 - PPSV23, PCV20, or PCV21) 07/17/2017 05/22/2017 Diabetes: Hemoglobin A1C 04/11/2023 01/09/2023 COVID-19 Vaccine ( season) 2024 07/04/2024, 07/12/2023, 07/14/2022, Additional history exists Influenza Vaccine (Season Ended) 2025 08/09/2022, 05/28/2022, 07/07/2020, Additional history exists HIB Vaccines Aged Out No longer eligi ble based on patient's age to complete this topic HPV Vaccines Aged Out No longer eligi ble based on patient's age to complete this topic IPV Vaccines Aged Out No longer eligi ble based on patient's age to complete this topic Meningococcal B Vaccine Aged Out No l onger eligible based on patient's age to complete this topic Meningococcal Vaccine Aged Out No elva neeru eligible based on patient's age to complete this topic Rotavirus Vaccines Aged Out No longer eligible based on patient's age to complete this topic Procedures Procedure Name Priority Date/Time Associated Diagnosis Comments HEMOGLOBIN A1C Routine 01/09/2023 7:54 PM EDT from Last 3 Months or Most Recently Relevant to Health Maintenance Results * (ABNORMAL) Hemoglobin A1c (01/09/2023 7:54 PM EDT) Hemoglobin A1C 6.8(H) 4.0 - 6.0 % 01/10/2023 10:01 AM EDT [facility] Estimated Average Glucose 148 mg/dL 01/10/2023 10:01 AM EDT [facility] Blood Venous blood specimen / Unknown Venipuncture / Unknown 01/09/2023 7:54 PM EDT 01/09/2023 8:25 PM EDT us Nita Galarza MD LAB BLOOD ORDERABLES Fi nal Result [facility] [address] [place] [address] from Last 3 Months or Most Recently Relevant to Health Maintenance [place] [id number] [place] [address] [facility] Advance Directives * Full Code (Latest Code Status on File) Date Activated Date Inactivated Comments 01/09/2023 3:56 PM 01/23/2023 4:30 PM Care Teams Performance Consultant Relationship Specialty Start Date End Date Beka Blackman MD [address] [facility] [place] [address] [address] PCP - General 01/10/23
--- OUTSIDE RECORDS SUMMARY | 2025-02-09 10:54 | XMS_ITS | Clinical Summary ---
Author Organization [facility] Address [address] [place] [address] Care Team Providers Care Flight Hostess Name Role Phone Beka Blackman MD Primary Care Provider + Shirley Jaramillo MD Unavailable + [phone] Chandan Benjamin MD Unavailable [phone] Evy Dozier MD Unavailable [phone] Aleksandra Rollins RN Unavailable [phone] Allergies No known active allergies Medications aspirin, enteric coated (ASPIRIN, ENTERIC COATED) 81 mg EC tablet Take 81 mg by mouth. Active atorvastatin (LIPITOR) 40 mg tablet Take 40 mg by mouth daily at bedtime. Active cetirizine (ZYRTEC) 10 mg tablet Take 10 mg by mouth once daily. Active clopidogrel (PLAVIX) 75 mg tablet take 1 tablet (75 mg) by mouth in the morning. 5 Active glimepiride (AMARYL) 4 mg tablet TAKE ONE TABLET BY MOUTH ONCE DAILY WITH BREAKFAST OR THE FIRST MAIN MEAL OF THE DAY Active magnesium oxide (MAG-OX) 400 mg (241.3 mg magnesium) tablet Take 1 tablet by mouth. 3 Active metFORMIN (GLUCOPHAGE) 500 mg tablet take one tablet by mouth twice a day for 30 days Active metoprolol tartrate, short acting, (LOPRESSOR) 25 mg tablet Take 12.5 mg by mouth two times a day. Active potassium chloride ER (KLOR-CON) 20 mEq tablet Take 20 mEq by mouth daily with food. Active JANUVIA 100 mg tablet 1 tablet Orally Once a day for 30 days 5 Active vit A/vit C/vit E/zinc/copper (PRESERVISION AREDS ORAL) Take by mouth. Act jagjit calcium carbonate/vitam in D3 (CALCIUM WITH VITAMIN D3 ORAL) Take by mouth. Activ e ondansetron (ZOFRAN) 8 mg tablet Take 1 tablet by mouth every 8 hours as needed for nausea/vomitin g. 90 tablet 1 Active prochlorperazin e (COMPAZINE) 10 mg tablet Take 1 tablet by mouth every 6 hours as needed. 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 Encounters Date Type Department Care Team Description 02/09/2025 9:45 AM EDT Education Hematology/Oncology [address] [place] [address] Arrived 02/05/2025 8:45 AM EDT Office Visit Radiation Oncology [address] [place] [address] [place] [address] Evy Dozier MD Head and neck cancer (HCC) (Primary Dx); Lung nodule 02/05/2025 Clinical Document [facility] [place] [address] Provider, Ccf 02/05/2025 Patient Update [facility] Provider Adult [address] [place] [address] Gonzalo Mcelroy MD Bronchoscopy Scheduling 02/05/2025 Telephone Cancer Appts [address] [place] [address] Evy Dozier MD 02/03/2025 Telephone Hematology/Oncology [address] [place] [address] [place] [address] Aleksandra Rollins, YONATAN Care Coordination (Antiemetics) 01/30/2025 11:00 AM EDT Visit (SP) Office Hematology/Oncology [address] [place] [address] [place] [address] Chandan Benjamin MD Head and neck cancer (HCC); 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); Personal history of nicotine dependence; Presence of aortocoronary bypass graft; Type 2 diabetes mellitus without complication, unspecified whether care home insulin use (HCC) 01/30/2025 Telephone Cancer [facility] [address] [place] [address] Chandan Benjamin MD Appointment 01/30/2025 Travel 01/28/2025 1:18 PM EDT - 01/28/2025 11:59 PM EDT Hospital Encounter Radiology Pet CT [address] [place] [address] Head and neck cancer (HCC) [C76.0] Discharge Disposition: Home 01/27/2025 9:00 AM EDT Office Visit Radiation Oncology [address] [place] [address] Evy Dozier MD Head and neck cancer (HCC) (Primary Dx) 01/27/2025 Education Radiation Oncology [address] [place] [address] Chioma Powell RN Patient Education 01/27/2025 Telephone Radiation Oncology [address] [place] [address] Evy Dozier MD Appointment 01/27/2025 Travel 01/26/2025 Abstract Hematology/Oncology [address] [place] [address] Xiomara Story, YONATAN Research (Prescreen) from Last 3 Months Social History Tobacco Use Types Packs/Day Years [...] is lower risk 4 01/27/2025 Data from: https://www.neighborhoodatlas.medicine[facility].edu/. Last address used for calculation [address] 01/27/2025 Sex and Gender Information Value Date Recorded Sex Assigned at Not on file Legal Sex Male 11:10 AM EDT Gender Identity Not on file Sexual Orientation Not on file Last Filed Vital Signs Vital Sign Reading Time Taken Comments Blood Pressure 124/74 01/30/2025 11:24 AM EDT Pulse 73 01/30/2025 11:24 AM EDT Temperature 36.6 C (97.9 F) 01/30/2025 11:24 AM EDT Respiratory Rate 18 01/30/2025 11:24 AM EDT Oxygen Saturation 96% 01/30/2025 11:24 AM EDT Inhaled Oxygen Concentration - - Weight 90.9 kg (200 lb 6.4 oz) 01/30/2025 11:24 AM EDT Height 172.7 cm (5' 8 ) 01/27/2025 8:55 AM EDT Body Mass Index 30.47 01/27/2025 8:55 AM EDT Plan of Treatment Health Maintenance Due Date Last Done Comments Anxiety Screening 1958 Depression Screening 1958 DTaP,Tdap,Td Vaccine (1 - Tdap) 1960 Shingrix Vaccine (1 of 2) 1959 Medicare Annual Wellness Visit 07/27/2006 RSV Vaccine (1 - 1-dose 75+ series) 2016 Pneumococcal Vaccine: 50+ (2 of 2 - PPSV23) 07/17/2017 05/22/2017 Advance Directive Discussion 08/27/2024 Covid-19 Vaccine (6 - 2023-2 5 season) 2024 07/04/2024, 07/12/2023, 07/14/2022, Additional history exists Influenza Vaccine (Season Ended) 2025 08/09/2022, 05/28/2022, 07/07/2020, Additional history exists Diabetes Screening 01/31/2028 01/30/2025, 0 01/23/2023, 01/22/2023, Additional history exists Procedures Procedure Name Priority Date/Time Associated Diagnosis Comments COMPREHENSIVE METABOLIC PANEL Routine 01/30/2025 12:09 PM EDT Head and neck cancer (HCC) CBC + DIFF Routine 01/30/2025 12:09 PM EDT Head and neck cancer (HCC) NM PET/CT SKULL-THIGH INITIAL Routine 01/28/2025 3:23 PM EDT Head and neck cancer (HCC) GLUCOSE, BLOOD (POC) Routine 01/28/2025 1:30 PM EDT EXTERNAL IMAGING 01/22/2025 4:29 PM EDT EXTERNAL LAB 01/22/2025 4:29 PM EDT EXTERNAL PROCEDURE 01/22/2025 4: 29 PM EDT EXTERNAL LAB 01/22/2025 4:29 PM EDT from Last 3 Months Results * (ABNORMAL) COMPREHENSIVE METABOLIC PANEL (01/30/2025 12:09 PM EDT) [facility] Protein, Total 6.8 6.3 - 8.0 g/dL 01/30/2025 1:05 PM EDT [facility] Albumin 4.5 3.9 - 4.9 g/dL 01/30/2025 1:05 PM EDT [facility] Calcium, Total 9.5 8.5 - 10.2 mg/dL 01/30/2025 1:05 PM EDT [facility] Bilirubin, Total 0.6 0.2 - 1.3 mg/dL 01/30/2025 1:05 PM EDT [facility] Alkaline Phosphatase 131(H) 38 - 113 U/L 01/30/2025 1:05 PM EDT [facility] AST 18 14 - 40 U/L 01/30/2025 1:05 PM EDT [facility] ALT 19 10 - 54 U/L 01/30/2025 1:05 PM EDT [facility] Glucose 199(H) 74 - 99 mg/dL 01/30/2025 1:05 PM EDT [facility] Comment: The [place] Diabetes Association (ADA) provides guidance for cutoff [...] Standards of Medical Care in Diabetes 2016, [place] [employer] Association. Diabetes Care. 2016.39(Suppl 1). BUN 17 9 - 24 mg/dL 01/30/2025 1:05 PM EDT [facility] Creatinine 0.88 0.73 - 1.22 mg/dL 01/30/2025 1:05 PM EDT [facility] Sodium 139 136 - 144 mmol/L 01/30/2025 1:05 PM EDT [facility] Potassium 4.4 3.7 - 5.1 mmol/L 01/30/2025 1:05 PM EDT [facility] Chloride 102 98 - 107 mmol/L 01/30/2025 1:05 PM EDT [facility] CO2 25 22 - 30 mmol/L 01/30/2025 1:05 PM EDT [facility] Anion Gap 12 8 - 15 mmol/L 01/30/2025 1:05 PM EDT [facility] Estimated Glomerular Filtration Rate 85 >=60 mL/min/1. 73m 01/30/2025 1:05 PM EDT [facility] Comment:Estimated Glomerular Filtration Rate (eGFR) is [...] us Chandan Benjamin MD LABORATORY Final Result [facility] [address] [place] [address] * (ABNORMAL) COMPLETE BLOOD COUNT AND DIFFERENTIAL (01/30/2025 12:09 PM EDT) WBC 8.56 3.70 - 11.00 k/uL 01/30/2025 12:26 PM EDT [facility] RBC 4.77 4.20 - 6.00 m/uL 01/30/2025 12:26 PM EDT [facility] Hemoglobin 15.0 13.0 - 17.0 g/dL 01/30/2025 12:26 PM EDT [facility] Hematocrit 42.6 39.0 - 51.0 % 01/30/2025 12:26 PM EDT [facility] MCV 89.3 80.0 - 100.0 fL 01/30/2025 12:26 PM EDT [facility] MCH 31.4 26.0 - 34.0 pg 01/30/2025 12:26 PM EDT [facility] MCHC 35.2 30.5 - 36.0 g/dL 01/30/2025 12:26 PM EDT [facility] RDW-CV 13.6 11.5 - 15.0 % 01/30/2025 12:26 PM EDT [facility] Platelet Count 139(L) 150 - 400 k/uL 01/30/2025 12:26 PM EDT [facility] MPV 8.6(L) 9.0 - 12.7 fL 01/30/2025 12:26 PM EDT [facility] Neutrophils % 67.7 % 01/30/2025 12:26 PM EDT [facility] Abs Neut 5.79 1.45 - 7.50 k/uL 01/30/2025 12:26 PM EDT [facility] Lymphocytes % 16.7 % 01/30/2025 12:26 PM EDT [facility] Abs Lymph 1.43 1.00 - 4.00 k/uL 01/30/2025 12:26 PM EDT [facility] Monocytes % 13.4 % 01/30/2025 12:26 PM EDT [facility] Abs [place] 1.15(H) <0.87 k/uL 01/30/2025 12:26 PM EDT [facility] Eosinophils % 0.9 % 01/30/2025 12:26 PM EDT [facility] Abs Eosin 0.08 <0.46 k/uL 01/30/2025 12:26 PM EDT [facility] Basophils % 0.5 % 01/30/2025 12:26 PM EDT [facility] Abs Baso 0.04 <0.11 k/uL 01/30/2025 12:26 PM EDT [facility] Immature Granulocytes % 0.8 % 01/30/2025 12:26 PM EDT [facility] Abs Immature Gran 0.07 <0.10 k/uL 01/30/2025 12:26 PM EDT [facility] NRBC 0.0 /100 WBC 01/30/2025 12:26 PM EDT [facility] Absolute nRBC <0.01 <0.01 k/uL 01/30/2025 12:26 PM EDT [facility] Diff Type Auto 01/30/2025 12:26 PM EDT [facility] Blood BLOOD SPECIMEN / Unknown Venipuncture / Unknown 01/30/2025 12:09 PM EDT 01/30/2025 12:09 PM EDT us Chandan Benjamin MD LABORATORY Final Result [facility] [address] [place] [address] * NM PET/CT SKULL-THIGH INITIAL (01/28/2025 3:23 [...] * Uptake Time: 61 minutes * Radiopharmaceutical: [id number] (FDG) COMPARISON: No previous FDG PET/CT available [...] any questions regarding this interpretation, please call [phone]. If you are unable to reach us at the number above, please feel free to contact [facility] at [phone]. Procedure Note Provider, [facility] - 01/31/2025 * * *Final Report* * [...] * Uptake Time: 61 minutes * Radiopharmaceutical: [id number] (FDG) COMPARISON: No previous FDG PET/CT available [...] any questions regarding this interpretation, please call [phone]. If you are unable to reach us at the number above, please feel free to contact [facility] at [phone]. G Glenn Dozier MD [place]-PAMA Final Resul t * (ABNORMAL) GLUCOSE, BLOOD (POC) (01/28/2025 1:30 PM EDT) [facility] Glucose, Point of Care 148(A) 74 - 99 mg/dL [facility] Comment: Location:[facility], [address] [place] [address] [place], [place], [address] The Accu-Chek Inform II glucose meter has [...] us Ccf Provider POC TESTING Final Result [facility] POINT OF CARE [address] [place], [place] * EXTERNAL IMAGING (01/22/2025 4:29 PM EDT) Anatomical Region Laterality Modality Other us External Provider PA-C RADIOLOGY Final Res ult * EXTERNAL LAB (01/22/2025 4:29 PM EDT) Only the most recent of2 resultswithin the time period is included. us External Provider PA-C LABORATORY Final Res ult * EXTERNAL PROCEDURE (01/22/2025 4:29 PM EDT) us External Provider PA-C PROCEDURE Final Res ult from Last 3 Months Insurance [facility] MEDICARE Care Teams Flight Hostess Relationship Specialty Start Date End Date Beka Blackman MD [address] [place] [address] PCP - General Family Medicine 12/02/15 Shirley Jaramillo MD [address] [place] [address] [address] [place] [address] Referring Ent - Otolaryngology 01/20/25 Chandan Benjamin MD [address] [facility] [place] [address] Physician Hematology/Oncology 02/03/25 Evy Dozier MD [address] [facility] [place] [address] Physician Radiation Oncology 02/03/25 Aleksandra Rollins, YONATAN [address] [facility] [place] [address] Specialty German Instructor Hematology/Oncology 02/03/25
--- OUTSIDE RECORDS SUMMARY | 2025-02-09 10:54 | XMS_ITS | Referral Summary ---
Author Organization [facility] Address [address] [place] [address] Care Team Providers Care Deputy K 9 Name Role Phone Beka Blackman MD Primary Care Provider [phone] Encounters Date Type Department Care Team Description 11/17/2024 Telephone [facility] Heart at [facility] [address] [place] [address] Toshia Garcia MA from Last 3 Months Allergies No known active allergies Medications cetirizine [...] (01/09/2023): Added automatically from request for surgery [id number] Chronic obstructive pulmonary disease 01/09/2023 Essential hypertension [...] artery disease of n ative artery of [place] heart with stable angina pectoris 01/09/2023 Overview (01/10/2023): Added automatically from request for surgery [id number] Assessment & Plan (05/16/2024 1:39 PM EDT): Coronary artery disease is unchanged. Continue GDMT- ASA, plavix, metoprolol, lipitor Continue heart healthy diet and regular exercise Continue current treatment regimen. Continue current medications. Cardiac status will be reassessed in 6 months. Social History Tobacco Use Types Packs/Day Years [...] place to sleep or slept in a skilled nursing (including now)? No 01/10/2023 Hunger Vital Sign [...] 10/31/2024 2:08 PM EST Plan of Treatment Not on file Procedures Procedure Name Priority Date/Time Associated Diagnosis Comments HEMOGLOBIN A1C Routine 01/09/2023 7:54 PM EDT from Last 3 Months or Most Recently Relevant to Health Maintenance Results * (ABNORMAL) Hemoglobin A1c (01/09/2023 7:54 PM EDT) Hemoglobin A1C 6.8(H) 4.0 - 6.0 % 01/10/2023 10:01 AM EDT [facility] Estimated Average Glucose 148 mg/dL 01/10/2023 10:01 AM EDT [facility] Blood Venous blood specimen / Unknown Venipuncture / Unknown 01/09/2023 7:54 PM EDT 01/09/2023 8:25 PM EDT us Nita Galarza MD LAB BLOOD ORDERABLES Fi nal Result [facility] [address] [place] [address] from Last 3 Months or Most Recently Relevant to Health Maintenance Insurance MEDICARE [facility] MEDICARE [facility] Advance Directives * Full Code (Latest Code Status on File) Date Activated Date Inactivated Comments 01/09/2023 3:56 PM 01/23/2023 4:30 PM Care Teams Deputy K 9 Relationship Specialty Start Date End Date Beka Blackman MD [address] [facility] [place] [id number] PCP - General 01/10/23
--- OUTSIDE RECORDS SUMMARY | 2025-02-09 10:54 | XMS_ITS | Encounter Summary ---
Author Organization [facility] Address [address] [place] [address] Care Team Providers Care Shearer Operator Name Role Phone Beka Blackman MD Primary Care Provider +- Shirley Jaramillo MD Unavailable + [phone] Chandan Benjamin MD Unavailable [phone] Evy Dozier MD Unavailable [phone] Aleksandra Rollins RN Unavailable [phone] Source Comments In the event this information is protected by the Federal Confidentiality of Alcohol and Drug AbusePatient Records regulations: The Federal rules restrict any use of the information to criminally investigate or prosecute any alcohol or drug abuse patient.[facility] Encounter Details Date Type Department Care Team (Late st Contact Info) Description 02/05/2025 Clinical [place] [address] Provider, Ccf Social History Tobacco Use Types Packs/Day Years [...] is lower risk 4 01/27/2025 Data from: https://www.neighborhoodatlas.medicine.[employer].edu/. Last address used for calculation [address] [...] on filedocumented in this encounter Care Teams Shearer Operator Relationship Specialty Start Date End Date Beka Blackman MD [address] [place] [address] PCP - General Family Medicine 12/02/15 Shirley Jaramillo MD [address] [place] [address] [address] [place] [address] Referring Ent - Otolaryngology 01/20/25 Chandan Benjamin MD [address] [facility] [place] [address] Physician Hematology/Oncology 02/03/25 Evy Dozier MD [address] [facility] [place] [address] Physician Radiation Oncology 02/03/25 Aleksandra Rollins, YONATAN [address] [facility] [facility] [place] [address] Specialty Acid Patroller Hematology/Oncology 02/03/25 documented as of this encounter
[2025-02-09 11:36] LABS: Basophils Percent Auto 0.5 % (0.2-2.0); Eosinophils Absolute Auto 0.1 10^3/uL (0.0-0.7); Hematocrit 41.4 % (42.0-54.0); Hemoglobin 14.8 g/dL (14.0-18.0); Immature Granulocytes Abs Auto 0.05 10^3/uL (0.00-0.03); Immature Granulocytes Pct Auto 0.6 % (0.0-0.5); Lymphocytes Absolute Auto 1.4 10^3/uL (1.2-3.8); Lymphocytes Percent Auto 16.4 % (20.5-60.0); Mean Corpuscular HGB Conc 35.7 g/dL (29.9-35.2); Mean Corpuscular Hemoglobin 32.3 pg (25.9-34.0); Mean Corpuscular Volume 90.4 fL (80.0-94.0); Mean Platelet Volume 8.6 fL (9.5-13.5); Monocytes Absolute Auto 1.1 10^3/uL (0.3-0.8); Monocytes Percent Auto 13.6 % (1.7-12.0); Neutrophils Absolute Auto 5.7 10^3/uL (1.4-6.5); Neutrophils Percent Auto 67.9 % (43.0-75.0); Platelet Count 151 10^3/uL (150-450); Red Blood Count 4.58 10^6/uL (4.70-6.10); Red Cell Distribution Width 13.5 % (11.0-15.0); White Blood Count 8.4 10^3/uL (4.0-11.0)
[2025-02-09 12:00] LABS: Alanine Aminotransferase 29 U/L (16-63); Albumin Globulin Ratio 1.1; Albumin Level 3.6 g/dL (3.4-5.0); Alkaline Phosphatase 126 U/L (46-116); Anion Gap 12.7; Aspartate Amino Transferase 17 U/L (15-37); BUN Creatinine Ratio 19.4; Bilirubin Total 0.8 mg/dL (0.2-1.0); Calcium 9.6 mg/dL (8.5-10.1); Carbon Dioxide 29.4 mmol/L (21.0-32.0); Chloride 102 mmol/L (98-107); Estimated GFR (African America >60 (>=60 mL/min/1.73m^2); Estimated GFR (Non-African Ame >60 (>=60 mL/min/1.73m^2); Free T3 2.82 pg/mL (2.18-3.98); Globulin 3.2 g/dL; Glucose 134 mg/dL (74-106); Potassium 4.1 mmol/L (3.5-5.1); Sodium 140 mmol/L (136-145); Thyroid Stimulating Hormone 2.383 uIU/mL (0.358-3.740); Total Protein 6.8 g/dL (6.4-8.2); Troponin I High Sensitivity 6.5 pg/mL (4.0-76.1)
== END 2025-02-09 10:47 | disposition home or self-care (01) ==
PROVIDERS: PCP Family Medicine; Visit Provider Family Medicine
DX: R61 Generalized hyperhidrosis (principal); I50.30 Unspecified diastolic (congestive) heart failure; I11.0 Hypertensive heart disease with heart failure
CPT/HCPCS: 36415; 80053; 83880; 84436; 84443; 84481; 84484; 85025

== ENCOUNTER 2025-04-14 09:21 | Outpatient (OUT) | payer MEDICARE, OTHER, SELFPAY ==
--- OUTSIDE RECORDS SUMMARY | 2025-04-14 09:32 | XMS_ITS | CCD ---
Author Organization [facility] Care Team Providers Care Dozer Operator Name Role Phone ANN ., DR LAMBERT Admitting Unavailable ANN ., DR LAMBERT Attending Unavailable FRACISCOY ., DR LAMBERT Consulting Unavailable ANN ., DR LAMBERT Primary Care Unavailable MODAY, DR FARMER Consulting Unavailable DARREN ., KELVIN Consulting Unavailable TIFFANY TORO Consulting Unavailable ANN ., DR LAMBERT Admitting Unavailable HOY ., DR LAMBERT Attending Unavailable HOY ., DR LAMBERT Consulting Unavailable FRACISCOY ., DR LAMBERT Primary Care Unavailable KEENAN SHANKAR Attending Unavailable DARIAN LAZCANO Attending Unavailable Fausto Juarez MD Primary Care Provider [phone] Fausto Juarez MD Primary Care Provider [phone] Austin Jarquin MD Attending Provider Unavailab AUSTIN Lorenz Attending Unavailable AUSTIN JARQUIN Attending Unavailable Fausto Juarez MD Primary Care Provider [phone] Austin Jarquin MD Unavailable Chandan Burgos MD Unavailable Gisella Grant MD Unavailable [phone] Vladimir Finley RN Unavailable CHANDAN BURGOS Referring Unavailable SHIRLEY QIU Attending Unavailable FAUSTO JUAREZ Primary Care Unavailable Austin Jarquin Jr Attending Unavailable Austin Jarquin Jr Admitting Unavailable Fausto Juarez Attending Unavailable Fausto Juarez Primary Care Unavailable Fausto Juarez Admitting Unavailable GONZALO RICKS Admitting Unavailable GONZALO RICKS Attending Unavailable FAUSTO JUAREZ Primary Care Unavailable GONZALO RICKS Attending Unavailable FAUSTO JUAREZ Primary Care Unavailable ABHYANKAR, CHANDAN Referring Unavailable ABHYANKAR, CHANDAN Attending Unavailable HOY, FAUSTO M Primary Care Unavailable ABHYANKAR, CHANDAN Referring Unavailable HOY, FAUSTO M Primary Care Unavailable Gisella GRANT Attending Unavailable Gisella GRANT Referring Unavailable HOY, FAUSTO M Primary Care Unavailable Gisella GRANT Attending Unavailable Gisella GRANT Referring Unavailable HOY, FAUSTO M Primary Care Unavailable HOY, FAUSTO M Primary Care Unavailable HOY, FAUSTO M Primary Care Unavailable HOY, FAUSTO M Primary Care Unavailable HOY, FAUSTO M Primary Care Unavailable Gisella GRANT Attending Unavailable HOY, FAUSTO M Primary Care Unavailable ABHYANKAR, CHANDAN Referring Unavailable HOY, FAUSTO M Primary Care Unavailable HOY, FAUSTO M Primary Care Unavailable Gisella GRANT Referring Unavailable HOY, FAUSTO M Primary Care Unavailable HOY, FAUSTO M Primary Care Unavailable BEKAH PERDOMO Attending Unavailable HOY, FAUSTO M Primary Care Unavailable Gisella GRANT Attending Unavailable AUSTIN JARQUIN Referring Unavaila ble HOY, FAUSTO M Primary Care Unavailable HOY, FAUSTO M Primary Care Unavailable Gisella GRANT Attending Unavailable HOY, FAUSTO M Primary Care Unavailable Gisella GRANT Referring Unavailable HOY, FAUSTO M Primary Care Unavailable HOY, FAUSTO M Primary Care Unavailable HOY, FAUSTO M Primary Care Unavailable MERLINE FREGOSO Attending Unavailable HOY, FAUSTO M Primary Care Unavailable ABHYANKAR, CHANDAN Referring Unavailable HOY, FAUSTO M Primary Care Unavailable HOY, FAUSTO M Primary Care Unavailable HOY, FAUSTO M Primary Care Unavailable Gisella GRANT Referring Unavailable HOY, FAUSTO M Primary Care Unavailable Gisella GRANT Attending Unavailable Gisella GRANT Referring Unavailable HOY, FAUSTO M Primary Care Unavailable Gisella GRANT Referring Unavailable HOY, FAUSTO M Primary Care Unavailable HOY, FAUTSO M Primary Care Unavailable BEKAH PERDOMO Attending Unavailable ABHYANKAR, CHANDAN Referring Unavailable ABHYANKAR, CHANDAN Referring Unavailable HOY, FAUSTO M Primary Care Unavailable ABHYANKAR, CHANDAN Referring Unavailable HOY, FAUSTO M Primary Care Unavailable Gisella GRANT Referring Unavailable HOY, FAUSTO M Primary Care Unavailable HOY, FAUSTO M Primary Care Unavailable Gisella GRANT Referring Unavailable ABHYANKAR, CHANDAN Attending Unavailable HOY, FAUSTO M Primary Care Unavailable Gisella GRANT Referring Unavailable Gisella GRANT Attending Unavailable HOY, FAUSTO M Primary Care Unavailable Gisella GRANT Attending Unavailable HOY, FAUSTO M Primary Care Unavailable HOY, FAUSTO M Primary Care Unavailable HOY, FAUSTO M Primary Care Unavailable Gisella GRANT Attending Unavailable MONER, Gisella RETANAIP Referring Unavailable HOY, FAUSTO M Primary Care Unavailable ABHYANKAR, CHANDAN Referring Unavailable HOY, FAUSTO M Primary Care Unavailable ABHYANKAR, CHANDAN Referring Unavailable HOY, FAUSTO M Primary Care Unavailable HOY, FAUSTO M Primary Care Unavailable HOY, FAUSTO M Primary Care Unavailable HOY, FAUSTO M Primary Care Unavailable HOY, FAUSTO M Primary Care Unavailable Gisella GRANTIP Referring Unavailable Gisella GRANT Attending Unavailable HOY, FAUSTO M Primary Care Unavailable ABHYANKAR, CHANDAN Referring Unavailable HOY, FAUSTO M Primary Care Unavailable ABHYANKAR, CHANDAN Referring Unavailable HOY, FAUSTO M Primary Care Unavailable HOY, FAUSTO M Primary Care Unavailable HOY, FAUSTO M Primary Care Unavailable RUDY G GLENN Referring Unavailable Gisella GRANT Attending Unavailable HOY, FAUSTO M Primary Care Unavailable HOY, FAUSTO M Primary Care Unavailable HOY, FAUSTO M Primary Care Unavailable ABHYANKAR, CHANDAN Referring Unavailable HOY, FAUSTO M Primary Care Unavailable Medications Current Medications Medication Drug Class(es) Dates Sig (Normalized) Sig (Original) amiodarone hydrochloride 200 mg oral tablet (9 sources) Antiarrhythmic amiodarone (Pacerone) 200 MG tablet Take by mouth Daily Active aspirin 81 mg delayed release oral tablet (20 sources) Platelet Aggregation Inhibitor, Nonsteroidal Anti-inflammatory Drug take 1 tablet by mouth once daily aspirin, enteric coated (ASPIRIN, ENTERIC COATED) 81 mg EC tablet Take 81 mg by mouth once daily. Active atorvastatin 40 mg oral tablet (20 sources) HMG-CoA Reductase Inhibitor Start: 05-16-2024 End: 05-16-2025 take 1 tablet by mouth at bedtime atorvastatin (Lipitor) 40 MG tablet Take 40 mg by mouth at bedtime 05/16/2024 05/16/2025 Active Calcium (9 sources) Phosphate Binder, Calcium calcium 200 MG tablet Take 600 mg by mouth Active Calcium Carbonate / vitamin D3 (20 sources) take 2 tablets by mouth once daily calcium carbonate/vitamin D3 (CALCIUM WITH VITAMIN D3 ORAL) Take 2 tablets by mouth once daily. Active calcium carbonat e/vitamin D3 (CALCIUM WITH VITAMIN D3 ORAL) Take by mouth. Active cetirizine hydrochloride 10 mg oral tablet (20 sources) Histamine-1 Receptor Antagonist take 1 tablet by mouth once daily cetirizine (ZYRTEC) 10 mg tablet Take 10 mg by mouth once daily. Active cholecalciferol 0.01 mg/ml oral solution (9 sources) Vitamin D Cholecalciferol (Vitamin D) 10 MCG/ML liquid Take by mouth Active docusate sodium 50 mg oral capsule (9 sources) take 1 capsule by mouth in the morning docusate sodium (Colace) 50 MG capsule Take 50 mg by mouth in the morning and 50 mg before bedtime. Active glimepiride 4 mg oral tablet (20 sources) Sulfonylurea take 1 tablet by mouth once daily at breakfast glimepiride (AMARYL) 4 mg tablet TAKE ONE TABLET BY MOUTH ONCE DAILY WITH BREAKFAST OR THE FIRST MAIN MEAL OF THE DAY Active magnesium oxide 400 mg oral tablet (20 sources) Start: 023 take 1 tablet by mouth once daily magnesium oxide (MAG-OX) 400 mg (241.3 mg magnesium) tablet Take 1 tablet by mouth once daily. 03/14/2023 Active Start: 03-14-2023 magnesium oxid e (MAG-OX) 400 mg (241.3 mg magnesium) tablet Take 1 tablet by mouth. 03/14/2023 Active metFORMIN hydrochloride 500 mg oral tablet (20 sources) Biguanide take 1 tablet by mouth twice daily metFORMIN (GLUCOPHAGE) 500 mg tablet take one tablet by mouth twice a day for 30 days Active metoprolol tartrate 25 mg oral tablet (20 sources) beta-Adrenergic Casie Start: 05-16-20 24 End: 05-16-20 metoprolol tartrate (Lopressor) 25 MG tablet Take 12.5 mg by mouth in the morning and 12.5 mg in the evening. 05/16/2024 05/16/2025 Active mupirocin 0.02 mg/mg topical ointment (9 sources) RNA Synthetase Inhibitor Antibacterial mupirocin (Bactroban) 2 % ointment Apply topically in the morning and in the evening and before bedtime. Active naproxen sodium 220 mg oral tablet (20 sources) Nonsteroidal Anti-inflammatory Drug take 1 tablet by mouth twice daily at mealtime naproxen sodium (ALEVE) 220 mg tablet Take 220 mg by mouth two times a day with meals. Active ondansetron 8 mg oral tablet (20 sources) Serotonin-3 Receptor Antagonist Start: 03-03-20 take 1 tablet by mouth every eight hours as needed ondansetron (ZOFRAN) 8 mg tablet Take 1 tablet by mouth every 8 hours as needed for nausea/vomiting. 90 tablet 1 03/11/2025 4:15 PM EDT 03/03/2025 Active Start: 02-03-2025 End: 02-19-2025 take 1 tablet by mouth every eight hours as needed ondansetron (ZOFRAN) 8 mg tablet Take 1 tablet by mouth every 8 hours as needed for nausea/vomiting. 90 tablet 1 02/03/2025 02/19/2025 Discontinued (Discontinued by another Health Care Provider) pantoprazole 40 mg delayed release oral tablet (9 sources) Proton Pump Inhibitor take 1 tablet by mouth before mealtime pantoprazole (ProtoNix) 40 MG EC tablet Take 40 mg by mouth in the morning. Take before meals. Do not crush, chew, or split. Active microencapsulated potassium chloride 20 meq extended release oral tablet (20 sources) take 1 tablet by mouth once daily at mealtime potassium chloride ER (KLOR-CON) 20 mEq tablet Take 20 mEq by mouth daily with food. Active prochlorperazine 10 mg oral tablet (20 sources) Phenothiazine Start: 2024 take 1 tablet by mouth every six hours as needed prochlorperazine (COMPAZINE) 10 mg tablet Take 1 tablet by mouth every 6 hours as needed. 100 tablet 1 03/11/2025 4:15 PM EDT 03/03/2025 Active Start: 02-03-2025 End: 02-19-2025 take 1 tablet by mouth every six hours as needed prochlorperazine (COMPAZINE) 10 mg tablet Take 1 tablet by mouth every 6 hours as needed. 100 tablet 1 02/03/2025 02/19/2025 Discontinued (Discontinued by another Health Care Provider) sennosides, mcfp 8.6 mg oral tablet (9 sources) take 1 tablet by mouth once daily sennosides (Senokot) 8.6 MG tablet Take 1 tablet by mouth Daily Active SITagliptin 100 mg oral tablet (20 sources) Dipeptidyl Peptidase 4 Inhibitor Start: take 1 tablet by mouth once daily JANUVIA 100 mg tablet 1 tablet Orally Once a day for 30 days 12/16/2024 Active vit A/vit C/vit E/zinc/copper (PRESERVISION AREDS ORAL) (20 sources) take 2 tablets by mouth once daily vit A/vit C/vit E/zinc/copper (PRESERVISION AREDS ORAL) Take 2 tablets by mouth once daily. Active vit A/vit C/vit E/zinc/copper (PRESERVISION AREDS ORAL) Take by mouth. Active Completed/Discontinued Medications Medication Drug Class(es) Dates Sig (Normalized) Sig (Original) CISplatin 83.6 mg in NaCl 0.9% 1,133.6 mL (PLATINOL) (3 sources) Start: 03-25-2025 End: 03-25-2025 83.6 mg (40 mg/m2 2.09 m2 Treatment Plan BSA from Recorded weight), INTRAVENOUS, Administer over 1 Hours, ONCE, 1 dose, On Sun03/25/25 at 1500, EXP: 1800 03/26/25 Room Temp Hazardous Chemotherapy Drug: Use appropriate PPE. Antineoplastic Vesicant for concentrations greater than 0.4 mg/mL - Antineoplastic Irritant for concentrations less than 0.4 mg/mL. Protect from Light. Start: 03-18-2025 End: 03-18-2025 83.6 mg (40 mg/m2 2.09 m2 Tr eatment Plan BSA from Recorded weight), INTRAVENOUS, Administer over 1 Hours, ONCE, 1 dose, On Sun03/18/25 at 1330, EXP: 1100 03/19/25 REFRIGERATE Hazardous Chemotherapy Drug: Use appropriate PPE. Antineoplastic Vesicant for concentrations greater than 0.4 mg/mL - Antineoplastic Irritant for concentrations less than 0.4 mg/mL. Protect from Light. Start: 03-11-2025 End: 03-11-2025 83.6 mg (40 mg/m2 2.09 m2 Tr eatment Plan BSA from Recorded weight), INTRAVENOUS, Administer over 1 Hours, ONCE, 1 dose, On Sun03/11/25 at 1330, exp 1745 03/12/25 (room temp) Hazardous Chemotherapy Drug: Use appropriate PPE. Antineoplastic Vesicant for concentrations greater than 0.4 mg/mL - Antineoplastic Irritant for concentrations less than 0.4 mg/mL. Protect from Light. clopidogrel 75 mg oral tablet (18 sources) P2Y12 Platelet Inhibitor Start: 10-30-2024 End: 02-19-2025 take 1 tablet by mouth in the morning clopidogrel (PLAVIX) 75 mg tablet take 1 tablet (75 mg) by mouth in the morning. 10/30/2024 02/19/2025 Discontinued (Discontinued by another Health Care Provider) 1 ml dexamethasone phosphate 10 mg/ml injection (3 sources) Corticosteroid Start: 03-25-2025 End: 03-25-2025 10 mg, INTRAVENOUS, ONCE, 1 dose, On Sun03/25/25 at 1300, Administer IV doses up to 10 mg over 5 minutes. Administer doses > 10 mg over 15 to 30 minutes. Start: 03-18-2025 End: 03-18-2025 10 mg, INTRAVENOUS, ONCE, 1 dose, On Sun03/18/25 at 1130, Administer IV doses up to 10 mg over 5 minutes. Administer doses > 10 mg over 15 to 30 minutes. Start: 03-11-2025 End: 03-11-2025 10 mg, INTRAVENOUS, ONCE, 1 dose, On Sun03/11/25 at 1130, Administer IV doses up to 10 mg over 5 minutes. Administer doses > 10 mg over 15 to 30 minutes. fosaprepitant 150 mg in NaCl 0.9% 100 mL (EMEND) (1 source) Start: 03-11-2025 End: 03-11-2025 150 mg, INTRAVENOUS, Adminis ter over 30 Minutes, ONCE, 1 dose, On Sun03/11/25 at 1130, Refrigerate fosaprepitant 150 mg in NaCl 0.9% 250 mL (EMEND) (2 sources) Start: 03-25-2025 End: 03-25-2025 150 mg, INTRAVENOUS, Adminis ter over 30 Minutes, ONCE, 1 dose, On Sun03/25/25 at 1300, Approximate Total Volume = 280 mL Refrigerate Start: 03-18-2025 End: 03-18-2025 150 mg, INTRAVENOUS, Adminis ter over 30 Minutes, ONCE, 1 dose, On Sun03/18/25 at 1130, Approximate Total Volume = 280 mL Refrigerate 2 ml furosemide 10 mg/ml injection (12 sources) Loop Diuretic Start: 03-25-2025 End: 03-25-2025 40 mg, INTRAVENOUS, ONCE, 1 dose, On Sun03/25/25 at 1300 Start: 03-18-2025 End: 03-18-2025 40 mg, INTRAVENOUS, ONCE, 1 dose, On Sun03/18/25 at 1130 Start: 03-11-2025 End: 03-11-2025 40 mg, INTRAVENOUS, ONCE, 1 dose, On Sun03/11/25 at 1130 furosemide (Lasi x) 40 MG tablet Take 40 mg by mouth Active 50 ml magnesium sulfate 40 mg/ml injection (5 sources) Start: 04-08-2025 End: 04-08-2025 take 2 g intravenously every hour 2 g, INTRAVENOUS, at 25-50 mL/hr, Administer over 1-2 Hours, ONCE, 1 dose, On Sun04/08/25 at 1130, Magnesium sulfate iv bolus will be infused at a rate of 1 gram/hr The following nursing units may administer 2 g dose over 1 hour if necessary: ICUs/PACU/ED, Adult Hematology/Oncology, Labor and Delivery, Cardiac Stepdown, Headache Clinic If necessary, a magnesium sulfate bolus may be administered greater than 2 g/hr for the following indications: Adult and Pediatric Asthma Exacerbations, [place], Pediatric BMT and Hematology/Oncology, Eclampsia or Preeclampsia Start: 03-25-2025 End: 03-25-2025 take 2 g intravenously every hour 2 g, INTRAVENOUS, at 25-50 mL/hr, Administer over 1-2 Hours, ONCE, 1 dose, On Sun03/25/25 at 1300, Magnesium sulfate iv bolus will be infused at a rate of 1 gram/hr The following nursing units may administer 2 g dose over 1 hour if necessary: ICUs/PACU/ED, Adult Hematology/Oncology, Labor and Delivery, Cardiac Stepdown, Headache Clinic If necessary, a magnesium sulfate bolus may be administered greater than 2 g/hr for the following indications: Adult and Pediatric Asthma Exacerbations, [place], Pediatric BMT and Hematology/Oncology, Eclampsia or Preeclampsia Start: 03-18-2025 End: 03-18-2025 take 2 g intravenously every hour 2 g, INTRAVENOUS, at 25-50 mL/hr, Administer over 1-2 Hours, ONCE, 1 dose, On Sun03/18/25 at 1130, Magnesium sulfate iv bolus will be infused at a rate of 1 gram/hr The following nursing units may administer 2 g dose over 1 hour if necessary: ICUs/PACU/ED, Adult Hematology/Oncology, Labor and Delivery, Cardiac Stepdown, Headache Clinic If necessary, a magnesium sulfate bolus may be administered greater than 2 g/hr for the following indications: Adult and Pediatric Asthma Exacerbations, [place], Pediatric BMT and Hematology/Oncology, Eclampsia or Preeclampsia Start: 03-11-2025 End: 03-11-2025 take 2 g intravenously every hour 2 g, INTRAVENOUS, at 25-50 mL/hr, Administer over 1-2 Hours, ONCE, 1 dose, On Sun03/11/25 at 1200, Magnesium sulfate iv bolus will be infused at a rate of 1 gram/hr The following nursing units may administer 2 g dose over 1 hour if necessary: ICUs/PACU/ED, Adult Hematology/Oncology, Labor and Delivery, Cardiac Stepdown, Headache Clinic If necessary, a magnesium sulfate bolus may be administered greater than 2 g/hr for the following indications: Adult and Pediatric Asthma Exacerbations, [place], Pediatric BMT and Hematology/Oncology, Eclampsia or Preeclampsia NaCl 0.9% 1,000 mL (3 sources) Start: 03-25-2025 End: 03-25-2025 INTRAVENOUS, at 999 mL/hr, A dminister over 1 Hours, ONCE, 1 dose, On Sun03/25/25 at 1300 Start: 03-18-2025 End: 03-18-2025 INTRAVENOUS, at 999 mL/hr, A dminister over 1 Hours, ONCE, 1 dose, On Sun03/18/25 at 1130 Start: 03-11-2025 End: 03-11-2025 INTRAVENOUS, at 999 mL/hr, A dminister over 1 Hours, ONCE, 1 dose, On Sun03/11/25 at 1200 5 ml palonosetron 0.05 mg/ml injection (3 sources) Serotonin-3 Receptor Antagonist Start: 03-25-2025 End: 03-25-2025 0.25 mg, INTRAVENOUS, ONCE, 1 dose, On Sun03/25/25 at 1300, Flush IV line with NS prior to and following administration. Start: 03-18-2025 End: 03-18-2025 0.25 mg, INTRAVENOUS, ONCE, 1 dose, On Sun03/18/25 at 1130, Flush IV line with NS prior to and following administration. Start: 03-11-2025 End: 03-11-2025 0.25 mg, INTRAVENOUS, ONCE, 1 dose, On Sun03/11/25 at 1130, Flush IV line with NS prior to and following administration. 1000 ml sodium chloride 9 mg /ml injection (6 sources) Start: 04-08-2025 End: 04-08-2025 NaCl 0.9% 1,000 mL iv bolus Start: 04-08-2025 End: 04-08-2025 NaCl 0.9% 1,000 mL iv bolus Start: 04-08-2025 End: 04-08-2025 1,000 mL, INTRAVENOUS, at 99 9 mL/hr, Administer over 1 Hours, ONCE, 1 dose, On Sun04/08/25 at 1100 Start: 03-25-2025 End: 03-25-2025 1,000 mL, INTRAVENOUS, at 99 9 mL/hr, Administer over 1 Hours, ONCE, 1 dose, On Sun03/25/25 at 1330 Start: 03-18-2025 End: 03-18-2025 1,000 mL, INTRAVENOUS, at 99 9 mL/hr, Administer over 1 Hours, ONCE, 1 dose, On Sun03/18/25 at 1200 Start: 03-11-2025 End: 03-11-2025 1,000 mL, INTRAVENOUS, at 99 9 mL/hr, Administer over 1 Hours, ONCE, 1 dose, On Sun03/11/25 at 1200 Problems Active Problems Problem Classification Problem Date Documented Da te Episodic/Chronic Administrative/social admission (2 sources) Patient encounter status; Translations: [Counseling, unspecified] Onset: 5 03-03-2025 Episodic Blindness and vision defects (1 source) Unqualified visual loss, both eyes; Translations: [Blindness of both eyes] Onset: 07-30-202 5 Chronic Cancer of bronchus; lung (2 sources) Malignant neoplasm of lower respiratory tract; Translations: [Malignant neoplasm of unspecified part of unspecified bronchus or lung] Onset: 5 04-08-2025 Chronic Cancer of head and neck (20 sources) Malignant tumor of vocal cord; 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] Onset: 5 01-07-2025 Chronic Cardiac dysrhythmias (2 sources) Unspecified atrial fibrillation; Translations: [Unspecified atrial fibrillation] Onset: 3 Chronic Chronic obstructive pulmonary disease and bronchiectasis (10 sources) Chronic obstructive pulmonary disease with (acute) lower respiratory infection; Translations: [Chronic obstructive lung disease] Onset: 2 12-15-2024 Chronic Coagulation and hemorrhagic disorders (1 source) Thrombocytopenic disorder; Translations: [Thrombocytopenia, unspecified] 04-08-2025 Chronic Congestive heart failure; nonhypertensive (1 source) Unspecified diastolic (congestive) heart failure; Translations: [UNSPECIFIED DIASTOLIC HEART FAILURE] Onset: 2 Chronic Coronary atherosclerosis and other heart disease (20 sources) Atherosclerotic heart disease of [place] coronary artery without angina pectoris; Translations: [Atherosclerotic heart disease of [place] coronary artery with other forms of angina pectoris] Onset: 3 Chronic Coronary atherosclerosis and other heart disease (5 sources) Presence of aortocoronary bypass graft; Translations: [Aortocoronary bypass graft present] Onset: 4 Episodic Diabetes mellitus without complication (13 sources) Type 2 diabetes mellitus; Translations: [Type 2 diabetes mellitus without complications] Onset: 3 12-15-2024 Chronic Disorders of lipid metabolism (20 sources) Mixed hyperlipidemia; Translations: [Hyperlipidemia] Onset: 3 Chronic Essential hypertension (11 sources) Essential (primary) hypertension; Translations: [Essential hypertension] Onset: 3 Chronic Fluid and electrolyte disorders (1 source) Dehydration; Translations: [Dehydration] 04-08-2025 Episodic Hypertension with complications and secondary hypertension (1 source) Hypertensive heart disease with heart failure; Translations: [HTN HEART DISEASE W/HEART FAIL] Onset: 2 Chronic Lymphadenitis (4 sources) Lymphadenopathy; Translations: [Enlarged lymph nodes, unspecified] Onset: 5 02-05-2025 Episodic Maintenance chemotherapy; radiotherapy (1 source) Patient encounter status; Translations: [Encounter for antineoplastic chemotherapy] 04-08-2025 Chronic Malaise and fatigue (2 sources) Fatigue due to chemotherapy; Translations: [Other fatigue] 04-08-2025 Episodic Other gastrointestinal disorders (1 source) Constipation; Translations: [Constipation, unspecified] 04-08-2025 Episodic Other lower respiratory disease (1 source) Nodule of lung; Translations: [Solitary pulmonary nodule] 02-05-2025 Episodic Other lower respiratory disease (1 source) Solitary pulmonary nodule; Translations: [Lung nodule] Onset: Episodic Other nervous system disorders (1 source) Carpal tunnel syndrome, left upper limb; Translations: [Carpal tunnel syndrome, left upper limb] Onset: Chronic Other nutritional; endocrine; and metabolic disorders (9 sources) Hypomagnesemia; Translations: [Hypomagnesemia] Onset: 3 12-15-2024 Chronic Other nutritional; endocrine; and metabolic disorders (9 sources) Obesity; Translations: [Obesity, unspecified] Onset: 3 12-15-2024 Chronic Other skin disorders (1 source) Generalized hyperhidrosis; Translations: [Generalized hyperhidrosis] Onset: 5 Episodic Other upper respiratory disease (2 sources) Other diseases of vocal cords; Translations: [Other diseases of vocal cords] 12-17-2024 Episodic Other upper respiratory disease (2 sources) Hoarse; Translations: [Dysphonia] 12-17-2024 Episodic Retinal detachments; defects; vascular occlusion; and retinopathy (9 sources) Degenerative disorder of macula ; Translations: [Unspecified macular degeneration] Onset: 3 12-15-2024 Chronic Screening and history of mental health and substance abuse codes (2 sources) Personal history of nicotine dependence; Translations: [Personal history of tobacco use] Onset: 5 02-01-2025 Episodic Unclassified (1 source) Simulation Request Form Onset: Past or Other Problems Problem Classification Problem Date Documented Date Episodic/Chronic Acute bronchitis (4 sources) Acute bronchitis, unspecified; Translations: [ACUTE BRONCHITIS UNSPECIFIED] Onset: 02-01-2022 Episodic Acute posthemorrhagic anemia (9 sources) Anemia following acute postoperative blood loss; Translations: [Acute posthemorrhagic anemia] Onset: 01-21-2023 12-15-2024 Episodic Complications of surgical procedures or medical care (11 sources) Other postprocedural complications and disorders of the circulatory system, not elsewhere classified; Translations: [Atrial fibrillation] Onset: 01-21-2023 Episodic Nonspecific chest pain (1 source) Chest pain, unspecified; Translations: [CHEST PAIN UNSPECIFIED] Onset: 02-04-2022 Episodic Other lower respiratory disease (9 sources) Respiratory insufficiency; Translations: [Other abnormalities of breathing] Onset: 01-16-2023 12-15-2024 Episodic Pleurisy; pneumothorax; pulmonary collapse (18 sources) Atelectasis; Translations: [Atelectasis] Onset: 01-17-2023 12-15-2024 Episodic Results Test Name Value Interpretation Reference Range Facility CBC W Auto Differential pane l (Bld)on 04-08-2025 Basophils (Bld) [#/Vol] 10*3/uL Normal <0.11 [facility] Comment on above: Order Comment: Nadine cuellar Type: BLOOD SPECIMENOrdering Facility: [facility] Address: [address] [place], [place] [address] Performed By: #### 5 7021-8 ####[facility] LABCLIA [id number] [place] [address] Basophils/100 WBC (Bld) 0.3 % Normal [facility] Comment on above: Order Comment: Gregorioi polo Type: BLOOD SPECIMENOrdering Facility: [facility] Address: [address] [place] [address] Performed By: #### 5 7021-8 ####[facility] LABCLIA [id number] [place] [address] Differential cell count method Nom (Bld) Auto Normal [facility] Comment on above: Order Comment: Gregorioi polo Type: BLOOD SPECIMENOrdering Facility: [facility] Address: [address] [place] [address] Performed By: #### 5 7021-8 ####[facility] LABCLIA [id number] [place] [address] Eosinophils (Bld) [#/Vol] 10*3/uL Normal <0.46 [facility] Comment on above: Order Comment: Speci men Type: BLOOD SPECIMENOrdering Facility: [facility] Address: [address] [place] [address] Performed By: #### 5 7021-8 ####[facility] LABCLIA [id number] [place] [address] Eosinophils/100 WBC (Bld) 0.6 % Normal [facility] Comment on above: Order Comment: Speci men Type: BLOOD SPECIMENOrdering Facility: [facility] Address: [address] [place] [address] Performed By: #### 5 7021-8 ####[facility] LABCLIA [id number] [place] [address] Erythrocyte distribution width (RBC) [Ratio] 14.9 % Normal 11.5-15.0 [facility] Comment on above: Order Comment: Speci men Type: BLOOD SPECIMENOrdering Facility: [facility] Address: [address] [place] [address] Performed By: #### 5 7021-8 ####[facility] LABCLIA [id number] [place] [address] Hematocrit (Bld) [Volume fraction] 35.9 % Low 39.0-51.0 [facility] Comment on above: Order Comment: Speci men Type: BLOOD SPECIMENOrdering Facility: [facility] Address: [address] [place] [address] Performed By: #### 5 7021-8 ####[facility] LABCLIA [id number] [place] [address] Hemoglobin (Bld) [Mass/Vol] 12.7 g/dL Low 13.0-17.0 [facility] Comment on above: Order Comment: Speci men Type: BLOOD SPECIMENOrdering Facility: [facility] Address: [address] [place] [address] Performed By: #### 5 7021-8 ####[facility] LABCLIA [id number] [place] [address] Immature granulocytes (Bld) [#/Vol] 0.03 10*3/uL Normal <0.10 [facility] Comment on above: Order Comment: Speci men Type: BLOOD SPECIMENOrdering Facility: [facility] Address: [address] [place] [address] Performed By: #### 5 7021-8 ####[facility] LABCLIA [id number] [place] [address] Immature granulocytes/100 WBC (Bld) 0.9 % Normal [facility] Comment on above: Order Comment: Speci men Type: BLOOD SPECIMENOrdering Facility: [facility] Address: [address] [place] [address] Performed By: #### 5 7021-8 ####[facility] LABCLIA [id number] [place] [address] Lymphocytes (Bld) [#/Vol] 0.47 10*3/uL Low 1.00-4.00 [facility] Comment on above: Order Comment: Speci men Type: BLOOD SPECIMENOrdering Facility: [facility] Address: [address] [place] [address] Performed By: #### 5 7021-8 ####[facility] LABCLIA [id number] [place] [address] Lymphocytes/100 WBC (Bld) 13.4 % Normal [facility] Comment on above: Order Comment: Speci men Type: BLOOD SPECIMENOrdering Facility: [facility] Address: [address] [place] [address] Performed By: #### 5 7021-8 ####[facility] LABCLIA [id number] [place] [address] MCH (RBC) [Entitic mass] 32.1 pg Normal 26.0-34.0 [facility] Comment on above: Order Comment: Speci men Type: BLOOD SPECIMENOrdering Facility: [facility] Address: [address] [place] [address] Performed By: #### 5 7021-8 ####[facility] LABCLIA [id number] [place] [address] MCHC (RBC) [Mass/Vol] 35.4 g/dL Normal 30.5-36.0 [facility] Comment on above: Order Comment: Speci men Type: BLOOD SPECIMENOrdering Facility: [facility] Address: [address] [place] [address] Performed By: #### 5 7021-8 ####[facility] LABCLIA [id number] [place] [address] MCV (RBC) [Entitic vol] 90.7 fL Normal 80.0-100.0 [facility] Comment on above: Order Comment: Speci men Type: BLOOD SPECIMENOrdering Facility: [facility] Address: [address] [place] [address] Performed By: #### 5 7021-8 ####[facility] LABCLIA [id number] [place] [address] Monocytes (Bld) [#/Vol] 0.54 10*3/uL Normal <0.87 [facility] Comment on above: Order Comment: Speci men Type: BLOOD SPECIMENOrdering Facility: [facility] Address: [address] [place] [address] Performed By: #### 5 7021-8 ####[facility] LABCLIA [id number] [place] [address] Monocytes/100 WBC (Bld) 15.4 % Normal [facility] Comment on above: Order Comment: Speci men Type: BLOOD SPECIMENOrdering Facility: [facility] Address: [address] [place], [place] [address] Performed By: #### 5 7021-8 ####[facility] LABCLIA [id number] [place] [address] Neutrophils (Bld) [#/Vol] 2.43 10*3/uL Normal 1.45-7.50 [facility] Comment on above: Order Comment: Speci men Type: BLOOD SPECIMENOrdering Facility: [facility] Address: [address] [place] [address] Performed By: #### 5 7021-8 ####[facility] LABCLIA [id number] [place] [address] Neutrophils/100 WBC (Bld) 69.4 % Normal [facility] Comment on above: Order Comment: Speci men Type: BLOOD SPECIMENOrdering Facility: [facility] Address: [address] [place] [address] Performed By: #### 5 7021-8 ####[facility] LABCLIA [id number] [place] [address] Nucleated RBC (Bld) [#/Vol] 10*3/uL Normal <0.01 [facility] Comment on above: Order Comment: Speci men Type: BLOOD SPECIMENOrdering Facility: [facility] Address: [address] [place] [address] Performed By: #### 5 7021-8 ####[facility] LABCLIA [id number] [place] [address] Nucleated RBC/100 WBC (Bld) [Ratio] 0.0 /100 WBC Normal [facility] Comment on above: Order Comment: Speci men Type: BLOOD SPECIMENOrdering Facility: [facility] Address: [address] [place] [address] Performed By: #### 5 7021-8 ####[facility] LABCLIA [id number] [place] [address] Platelet mean volume (Bld) [Entitic vol] 8.7 fL Low 9.0-12.7 [facility] Comment on above: Order Comment: Speci men Type: BLOOD SPECIMENOrdering Facility: [facility] Address: [address] [place] [address] Performed By: #### 5 7021-8 ####[facility] LABIA [id number] [place] [address] Platelets (Bld) [#/Vol] 53 10*3/uL Low 150-400 [facility] Comment on above: Order Comment: Speci men Type: BLOOD SPECIMENOrdering Facility: [facility] Address: [address] [place] [address] Result Comment: No c lot detected. Performed By: #### 5 7021-8 ####[facility] [id number] [place] [address] RBC (Bld) [#/Vol] 3.96 10*6/uL Low 4.20-6.00 [facility] Comment on above: Order Comment: Speci men Type: BLOOD SPECIMENOrdering Facility: [facility] Address: [address] [place] [address] Performed By: #### 5 7021-8 ####[facility] LABIA [id number] [place] [address] WBC (Bld) [#/Vol] 3.50 10*3/uL Low 3.70-11.00 [facility] Comment on above: Order Comment: Speci men Type: BLOOD SPECIMENOrdering Facility: [facility] Address: [address] [place] [address] Performed By: #### 5 7021-8 ####[facility] [id number] [place] [address] CNOVSPon 04-08-2025 CNOVSP Visit (SP) Office (HEMASA) MIKECHAD Karlene ([id number]) 1940 Date Time Provider Department 04/08/25 10:30 AM MERLINE FREGOSO During your visit today, we recorded the following information about you: Temperature Pulse Respiration Blood pressure 97.1 degrees 86/minute 18/minute 119/70 Weight Height 88.1 kg 1.73 m Lubna Granados MA 04/08/2025 11:42 AM Signed Patient states he looks good on outside but inside feels like jello, hot flashes, can't sleep at night but sleeps during the day, also he states it takes 1 1/2 hours to do a 20 minute job. 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 CASE SUMMARY / ASSESSMENT: 84 year old man with vocal cord squamous cell cancer presents to start concurrent chemotherapy with radiation for organ preservation. He underwent bronchoscopy 02/24/25 to further evaluate a mediastinal/right paratracheal node found on PET scan. Pathology was negative for malignant cells. Started definitive treatment with concurrent chemotherapy and radiation March 11, 2025. SUMMARIZED PLAN OF CARE: Hold day 29 today- due to low platelet and increased fatigue and weakness. Weekly Cisplatin 40 mg/m2 with radiation today Continue Weekly Cisplatin with labs weekly prior RTC in one week for reconsideration of C1D29 labs clinician treatment AI Assisted A/P: 1. 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) (C32.0) Malignant neoplasm of unspecified part of unspecified bronchus or lung (HCC) (C34.90) Head and neck cancer (HCC) (C76.0) Undergoing chemotherapy and radiation therapy. Experiencing significant fatigue and weakness. - Hold chemotherapy for one week due to thrombocytopenia and fatigue. - Continue radiation therapy as scheduled. - Follow-up next Sunday to reassess condition. 2. Encounter for antineoplastic chemotherapy (Z51.11) Chemotherapy session scheduled for today was postponed due to low platelet count and fatigue. - Resume chemotherapy next week if platelet count improves. 3. Chemotherapy-induced fatigue (R53.83) Neoplastic (malignant) related fatigue (R53.0) Experiencing significant fatigue and weakness, likely multifactorial due to chemotherapy and malignancy. - Administer IV hydration today to improve symptoms. - Monitor energy levels and reassess next week. 4. Thrombocytopenia (D69.6) Platelet count is 53,000/?L, making it unsafe to proceed with chemotherapy today. - Monitor platelet count closely. - Reevaluate next week before resuming chemotherapy. 5. Constipation, unspecified constipation type (K59.00) Experiencing mild constipation, possibly related to chemotherapy and decreased oral intake. - Increase Miralax to twice daily. - Consider adding a stool softener if needed. 6. Dehydration (E86.0) Likely contributing to fatigue and weakness. - Administer IV hydration today. - Encourage increased oral fluid intake. - CASE HISTORY: Reverse Chronological Order 03/11/2025 - Current : Cisplatin weekly with Radiation 02/24/2025 Bronchoscopy Pathology of FNA transbronchial LN A - Lymph Node, Transbronchial, FNA - 11RS Negative for malignant cells. Benign lymphoid sample. B - Lymph Node, Transbronchial, FNA - 4R Negative for malignant cells. Benign lymphoid sample. (01/28/2025) PET Scan: PRIMARY DISEASE SITE: * Metabolically active nodular [...] characteristics of fat necrosis versus internal vascularity (more content not included)... Normal [facility] Comprehensive metabolic 2000 panelon 04-08-2025 Albumin [Mass/Vol] 4.2 g/dL Normal 3.9-4.9 [facility] Comment on above: Order Comment: Speci men Type: BLOOD SPECIMENOrdering Facility: [facility] Address: [address] [place] [address] Performed By: #### 1 9123-9, 07423-9 ####[facility] LABCLIA [id number] [place] [address] ALP [Catalytic activity/Vol] 119 U/L High 38-113 [facility] Comment on above: Order Comment: Speci men Type: BLOOD SPECIMENOrdering Facility: [facility] Address: [address] [place] [address] Performed By: #### 1 9123-9, 59042-5 ####[facility] LABCLIA [id number] [place] [address] ALT [Catalytic activity/Vol] 19 U/L Normal 10-54 [facility] Comment on above: Order Comment: Speci men Type: BLOOD SPECIMENOrdering Facility: [facility] Address: [address] [place] [address] Performed By: #### 1 9123-9, 79395-7 ####[facility] LABCLIA [id number] [place] [address] Anion gap [Moles/Vol] 11 mmol/L Normal 8-15 [facility] Comment on above: Order Comment: Speci men Type: BLOOD SPECIMENOrdering Facility: [facility] Address: [address] [place], [place] [address] Performed By: #### 1 9123-9, ####[facility] LABCLIA [id number] [place] [address] AST [Catalytic activity/Vol] 19 U/L Normal 14-40 [facility] Comment on above: Order Comment: Speci men Type: BLOOD SPECIMENOrdering Facility: [facility] Address: [address] [place] [address] Performed By: #### 1 9123-9, 70071-2 ####[facility] LABCLIA [id number] [place] [address] Bilirubin [Mass/Vol] 0.6 mg/dL Normal 0.2-1.3 [facility] Comment on above: Order Comment: Speci men Type: BLOOD SPECIMENOrdering Facility: [facility] Address: [address] [place] [address] Performed By: #### 1 9123-9, ####[facility] LABIA [id number] [place] [address] Calcium [Mass/Vol] 9.7 mg/dL Normal 8.5-10.2 [facility] Comment on above: Order Comment: Speci men Type: BLOOD SPECIMENOrdering Facility: [facility] Address: [address] [place], [place] [address] Performed By: #### 1 9123-9, 59528-6 ####[facility] LABIA [id number] [place] [address] Chloride [Moles/Vol] 94 mmol/L Low 98-107 [facility] Comment on above: Order Comment: Speci men Type: BLOOD SPECIMENOrdering Facility: [facility] Address: [address] [place], [place] [address] Performed By: #### 1 9123-9, 72791-8 ####[facility] LABCLIA [id number] [place] [address] CO2 [Moles/Vol] 28 mmol/L Normal 22-30 [facility] Comment on above: Order Comment: Speci men Type: BLOOD SPECIMENOrdering Facility: [facility] Address: [address] [place] [address] Performed By: #### 1 9123-9, 10534-0 ####[facility] LABCLIA [id number] [place] [address] Creatinine [Mass/Vol] 1.02 mg/dL Normal 0.73-1.22 [facility] Comment on above: Order Comment: Speci men Type: BLOOD SPECIMENOrdering Facility: [facility] Address: [address] [place] [address] Performed By: #### 1 9123-9, 69560-2 ####[facility] LABIA [id number] [place] [address] eGFRcr SerPlBld CKD-EPI 2020 73 mL/min/1.73m??? Normal >=60 [facility] Comment on above: Order Comment: Speci men Type: BLOOD SPECIMENOrdering Facility: [facility] Address: [address] [place] [address] Result Comment: Lana mated Glomerular Filtration Rate (eGFR) is calculated using the 2020 CKD-EPI creatinine equation. This equation utilizes serum creatinine, sex, and age as parameters. The creatinine assay has traceable calibration to isotope dilution-mass spectrometry. Refer to KDIGO guidelines for clinical interpretation. In patients with unstable renal function, e.g. those with acute kidney injury, the eGFR may not accurately reflect actual GFR. Performed By: #### 1 9123-9, 19603-7 ####[facility] LABCLIA [id number] [place] [address] Glucose [Mass/Vol] 371 mg/dL High 74-99 [facility] Comment on above: Order Comment: Speci men Type: BLOOD SPECIMENOrdering Facility: [facility] Address: [address] [id number] Result Comment: The [place] [employer] (ADA) provides guidance for cutoff [...] Standards of Medical Care in Diabetes 2016, [place] [employer]. Diabetes Care. 2016.39(Suppl 1). Performed By: #### 1 9123-9, ####[facility] LABCLIA [id number] [place] [address] Potassium [Moles/Vol] 5.1 mmol/L Normal 3.7-5.1 [facility] Comment on above: Order Comment: Speci men Type: BLOOD SPECIMENOrdering Facility: [facility] Address: [address] [place] [address] Performed By: #### 1 9123-9, ####[facility] LABCLIA [id number] [place] [address] Protein [Mass/Vol] 6.5 g/dL Normal 6.3-8.0 [facility] Comment on above: Order Comment: Speci men Type: BLOOD SPECIMENOrdering Facility: [facility] Address: [address] [place] [address] Performed By: #### 1 9123-9, ####[facility] LABCLIA [id number] [place] [address] Sodium [Moles/Vol] 133 mmol/L Low 136-144 [facility] Comment on above: Order Comment: Speci men Type: BLOOD SPECIMENOrdering Facility: [facility] Address: [address] [id number] Performed By: #### 1 9123-9, 59382-3 ####[facility] LABCLIA [id number] [place] [address] Urea nitrogen [Mass/Vol] 30 mg/dL High 9-24 [facility] Comment on above: Order Comment: Speci men Type: BLOOD SPECIMENOrdering Facility: [facility] Address: [address] [id number] Performed By: #### 1 9123-9, 69237-1 ####[facility] LABCLIA [id number] [place] [address] MAGNESIUMOrdered By: Clarice harrison on 04-08-2025 Magnesium [Mass/Vol] 1.5 mg/dL Low 1.7 - 2 .3 mg/dL [facility] Magnesium SerPl-mCncon 04-08 Magnesium [Mass/Vol] 1.5 mg/dL Low 1.7-2.3 [facility] Comment on above: Order Comment: Speci men Type: BLOOD SPECIMENOrdering Facility: [facility] Address: [address] [address] Performed By: #### 1 9123-9, 25483-3 ####[facility] LABCLIA [id number] [place] [address] Magnesium [Mass/Vol]Ordered By: Clarice Garcia on 04-08-2025 Interpretation and review of laboratory results Abnormal [facility] CNOVon 04-06-2025 CNOV Office Visit (RADTSA ) CHAD MCKEON ([id number]) 1940 M Date Time Provider Department 04/06/25 2:00 PM Gisella GRANT During your visit today, we recorded the following information about you: Temperature Pulse Respiration Blood pressure 97.2 degrees 95/minute 16/minute 115/75 Weight Height 89.6 kg 1.73 m Gisella Grant MD 04/06/2025 2:27 PM Signed Radiation Oncology - On Treatment Review (OTR) Note PATIENT NAME: Chad Mckeon PATIENT DIAGNOSIS: 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 COURSE: definitive and concurrent chemotherapy Area Treated: Larynx, bilateral neck Current dose: 3800 Gy in 19 fx Planned dose: 7000 Gy in 35 fx SUBJECTIVE: Patient complains of increased fatigue. Unable to do a whole lot over the weekend. Denies pain. Denies significant dysphagia. Eating fairly well. PHYSICAL EXAM: 04/06/25 1411 BP: 115/75 BP Site: Left Arm BP Position: Sitting BP Cuff Size: Regular Adult Pulse: 95 Resp: 16 Temp: 36.2 ?C (97.2 ?F) TempSrc: Temporal SpO2: 96% Weight: 89.6 kg (197 lb 8.5 oz) Height: 173 cm (5' 8.11 ) KPS: 100 General Appearance: Alert and oriented. No acute distress. Radiation dermatitis: No Mucositis: No Oral cavity and oropharynx: lips and gums normal, oral and pharyngeal mucosa moist, palate elevates normally, tongue mobile and without palpable lesions, tonsils without masses Neck: Normal ROM. No palpable cervical or supraclavicular adenopathy. IMAGING/LAB RESULTS: Hemoglobin (g/dL) Date Value 04/01/2025 13.2 Hematocrit (%) Date Value 04/01/2025 37.2 WBC (k/uL) Date Value 04/01/2025 5.48 Platelet Count (k/uL) Date Value 04/01/2025 107 TOXICITY ASSESSMENT (CTCv4): Dysphagia:grade 0 - No symptoms Mucositis: grade 0 - No symptoms Radiation dermatitis: grade 0 - No symptoms Trismus: grade 0 - No symptoms Voice Changes:grade 2 - Moderate or persistent change from normal voice; still understandable Xerostomia: grade 0 - No symptoms Treatment chart checked: Yes Patient treatment site reviewed and verified:Yes Port films reviewed and current:Yes Medications started: None ASSESSMENT: Patient doing fairly well. Having increased generalized issues related to combined treatment. Unclear whether this is more from radiation or possibly systemic therapy. Will discuss with medical oncology regarding their thoughts on this. Could consider skipping chemotherapy this week to see how he does chart and imaging reviewed. Continue radiation as outlined. Gisella Grant MD Referring Provider: Gisella GRANT [[id number]] Allergies As of Date: 04/06/2025 (No Known Allergies) Date Reviewed: 04/06/2025 Reviewed by: Ramila Sun - Fully Assessed Reason for Visit: Head and Neck Cancer [551] Cmt: Treatment visit Primary Visit Diagnosis:Head and neck cancer (HCC) [C76.0] Prescriptions as of 04/06/2025 - naproxen sodium (ALEVE) 220 mg tablet Take 220 mg by mouth two times a day with meals. - ondansetron (ZOFRAN) 8 mg tablet Take 1 tablet by mouth every 8 hours as needed for nausea/vomiting. - prochlorperazine (COMPAZINE) 10 mg tablet Take 1 tablet by mouth every 6 hours as needed. - aspirin, enteric coated (ASPIRIN, ENTERIC COATED) 81 mg EC tablet Take 81 mg by mouth once daily. - atorvastatin (LIPITOR) 40 mg tablet Take 40 mg by mouth daily at bedtime. - cetirizine (ZYRTEC) 10 mg tablet Take 10 mg by mouth once daily. - glimepiride (AMARYL) 4 mg tablet TAKE ONE TABLET BY MOUTH ONCE DAILY WITH BREAKFAST OR THE FIRST MAIN MEAL OF THE DAY - magnesium oxide (MAG-OX) 400 mg (241.3 mg magnesium) tablet Take 1 tablet by mouth once daily. - metFORMIN (GLUCOPHAGE) 500 mg tablet take one tablet by mouth twice a day for 30 days - metoprolol tartrate, short acting, (LOPRESSOR) 25 mg tablet Take 12.5 mg by mouth two times a day. - potassium chloride ER (KLOR-CON) 20 mEq tablet Take 20 mEq by mouth daily with food. - JANUVIA 100 mg tablet 1 tablet Orally Once a day for 30 days - vit A/vit C/vit E/zinc/copper (PRESERVISION AREDS ORAL) Take 2 tablets by mouth once daily. - calcium carbonate/vitamin D3 (CALCIUM WITH VITAMIN D3 ORAL) Take 2 tablets by mouth once daily. Problem List As Of Date 04/06/2025 Noted Resolved Head and neck cancer (HCC) [C76.0] 02/01/2025 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) [C3*02/01/2025 Encounter Status:Closed by Gisella GRANT on 04/06/25 Normal [facility] CBC W Auto Differential pane l (Bld)on 04-01-2025 Basophils (Bld) [#/Vol] 10*3/uL Normal <0.11 [facility] Comment on above: Order Comment: Speci men Type: BLOOD SPECIMENOrdering Facility: [facility] Address: [address] [place] [address] Performed By: #### 5 7021-8 ####[facility] LABCLIA [id number] [place] [address] Basophils/100 WBC (Bld) 0.4 % Normal [facility] Comment on above: Order Comment: Speci men Type: BLOOD SPECIMENOrdering Facility: [facility] Address: [address] [place] [address] Performed By: #### 5 7021-8 ####[facility] LABCLIA [id number] [place] [address] Differential cell count method Nom (Bld) Auto Normal [facility] Comment on above: Order Comment: Speci men Type: BLOOD SPECIMENOrdering Facility: [facility] Address: [address] [place] [address] Performed By: #### 5 7021-8 ####[facility] LABCLIA [id number] [place] [address] Eosinophils (Bld) [#/Vol] 0.04 10*3/uL Normal <0.46 [facility] Comment on above: Order Comment: Speci men Type: BLOOD SPECIMENOrdering Facility: [facility] Address: [address] [place] [address] Performed By: #### 5 7021-8 ####[facility] LABCLIA [id number] [place] [address] Eosinophils/100 WBC (Bld) 0.7 % Normal [facility] Comment on above: Order Comment: Speci men Type: BLOOD SPECIMENOrdering Facility: [facility] Address: [address] [place] [address] Performed By: #### 5 7021-8 ####[facility] LABCLIA [id number] [place] [address] Erythrocyte distribution width (RBC) [Ratio] 14.2 % Normal 11.5-15.0 [facility] Comment on above: Order Comment: Speci men Type: BLOOD SPECIMENOrdering Facility: [facility] Address: [address] [place] [address] Performed By: #### 5 7021-8 ####[facility] LABCLIA [id number] [place] [address] Hematocrit (Bld) [Volume fraction] 37.2 % Low 39.0-51.0 [facility] Comment on above: Order Comment: Speci men Type: BLOOD SPECIMENOrdering Facility: [facility] Address: [address] [place] [address] Performed By: #### 5 7021-8 ####[facility] LABCLIA [id number] [place] [address] Hemoglobin (Bld) [Mass/Vol] 13.2 g/dL Normal 13.0-17.0 [facility] Comment on above: Order Comment: Speci men Type: BLOOD SPECIMENOrdering Facility: [facility] Address: [address] [place] [address] Performed By: #### 5 7021-8 ####[facility] LABIA [id number] [place] [address] Immature granulocytes (Bld) [#/Vol] 0.07 10*3/uL Normal <0.10 [facility] Comment on above: Order Comment: Speci men Type: BLOOD SPECIMENOrdering Facility: [facility] Address: [address] [place] [address] Performed By: #### 5 7021-8 ####[facility] LABCLIA [id number] [place] [address] Immature granulocytes/100 WBC (Bld) 1.3 % Normal [facility] Comment on above: Order Comment: Speci men Type: BLOOD SPECIMENOrdering Facility: [facility] Address: [address] [place] [address] Performed By: #### 5 7021-8 ####[facility] LABCLIA [id number] [place] [address] Lymphocytes (Bld) [#/Vol] 0.49 10*3/uL Low 1.00-4.00 [facility] Comment on above: Order Comment: Speci men Type: BLOOD SPECIMENOrdering Facility: [facility] Address: [address] [place] [address] Performed By: #### 5 7021-8 ####[facility] LABCLIA [id number] [place] [address] Lymphocytes/100 WBC (Bld) 8.9 % Normal [facility] Comment on above: Order Comment: Speci men Type: BLOOD SPECIMENOrdering Facility: [facility] Address: [address] [place] [address] Performed By: #### 5 7021-8 ####[facility] LABCLIA [id number] [place] [address] MCH (RBC) [Entitic mass] 31.9 pg Normal 26.0-34.0 [facility] Comment on above: Order Comment: Speci men Type: BLOOD SPECIMENOrdering Facility: [facility] Address: [address] [place] [address] Performed By: #### 5 7021-8 ####[facility] LABCLIA [id number] [place] [address] MCHC (RBC) [Mass/Vol] 35.5 g/dL Normal 30.5-36.0 [facility] Comment on above: Order Comment: Speci men Type: BLOOD SPECIMENOrdering Facility: [facility] Address: [address] [place] [address] Performed By: #### 5 7021-8 ####[facility] LABCLIA [id number] [place] [address] MCV (RBC) [Entitic vol] 89.9 fL Normal 80.0-100.0 [facility] Comment on above: Order Comment: Speci men Type: BLOOD SPECIMENOrdering Facility: [facility] Address: [address] [place] [address] Performed By: #### 5 7021-8 ####[facility] LABCLIA [id number] [place] [address] Monocytes (Bld) [#/Vol] 0.82 10*3/uL Normal <0.87 [facility] Comment on above: Order Comment: Speci men Type: BLOOD SPECIMENOrdering Facility: [facility] Address: [address] [place] [address] Performed By: #### 5 7021-8 ####[facility] LABIA [id number] [place] [address] Monocytes/100 WBC (Bld) 15.0 % Normal [facility] Comment on above: Order Comment: Speci men Type: BLOOD SPECIMENOrdering Facility: [facility] Address: [address] [place] [address] Performed By: #### 5 7021-8 ####[facility] LABCLIA [id number] [place] [address] Neutrophils (Bld) [#/Vol] 4.04 10*3/uL Normal 1.45-7.50 [facility] Comment on above: Order Comment: Speci men Type: BLOOD SPECIMENOrdering Facility: [facility] Address: [address] [place] [address] Performed By: #### 5 7021-8 ####[facility] LABCLIA [id number] [place] [address] Neutrophils/100 WBC (Bld) 73.7 % Normal [facility] Comment on above: Order Comment: Speci men Type: BLOOD SPECIMENOrdering Facility: [facility] Address: [address] [place] [address] Performed By: #### 5 7021-8 ####[facility] LABCLIA [id number] [place] [address] Nucleated RBC (Bld) [#/Vol] 10*3/uL Normal <0.01 [facility] Comment on above: Order Comment: Speci men Type: BLOOD SPECIMENOrdering Facility: [facility] Address: [address] [place] [address] Performed By: #### 5 7021-8 ####[facility] LABCLIA [id number] [place] [address] Nucleated RBC/100 WBC (Bld) [Ratio] 0.0 /100 WBC Normal [facility] Comment on above: Order Comment: Speci men Type: BLOOD SPECIMENOrdering Facility: [facility] Address: [address] [place] [address] Performed By: #### 5 7021-8 ####[facility] LABCLIA [id number] [place] [address] Platelet mean volume (Bld) [Entitic vol] 8.8 fL Low 9.0-12.7 [facility] Comment on above: Order Comment: Speci men Type: BLOOD SPECIMENOrdering Facility: [facility] Address: [address] [place] [address] Performed By: #### 5 7021-8 ####[facility] LABCLIA [id number] [place] [address] Platelets (Bld) [#/Vol] 107 10*3/uL Low 150-400 [facility] Comment on above: Order Comment: Speci men Type: BLOOD SPECIMENOrdering Facility: [facility] Address: [address] [place] [address] Performed By: #### 5 7021-8 ####[facility] LABCLIA [id number] [place] [address] RBC (Bld) [#/Vol] 4.14 10*6/uL Low 4.20-6.00 [facility] Comment on above: Order Comment: Speci men Type: BLOOD SPECIMENOrdering Facility: [facility] Address: [address] [place] [address] Performed By: #### 5 7021-8 ####[facility] LABIA [id number] [place] [address] WBC (Bld) [#/Vol] 5.48 10*3/uL Normal 3.70-11.00 [facility] Comment on above: Order Comment: Speci men Type: BLOOD SPECIMENOrdering Facility: [facility] Address: [address] [place] [address] Performed By: #### 5 7021-8 ####[facility] LABIA [id number] [place] [address] Comprehensive metabolic 2000 panelon 04-01-2025 Albumin [Mass/Vol] 4.2 g/dL Normal 3.9-4.9 [facility] Comment on above: Order Comment: Speci men Type: BLOOD SPECIMENOrdering Facility: [facility] Address: [address] [place] [address] Performed By: #### 2 4323-8 ####[facility] LABCLIA [id number] [place] [address] ALP [Catalytic activity/Vol] 137 U/L High 38-113 [facility] Comment on above: Order Comment: Speci men Type: BLOOD SPECIMENOrdering Facility: [facility] Address: [address] [place] [address] Performed By: #### 2 4323-8 ####[facility] LABCLIA [id number] [place] [address] ALT [Catalytic activity/Vol] 17 U/L Normal 10-54 [facility] Comment on above: Order Comment: Speci men Type: BLOOD SPECIMENOrdering Facility: [facility] Address: [address] [place], [place] [address] Performed By: #### 2 4323-8 ####[facility] LABCLIA [id number] [place] [address] Anion gap [Moles/Vol] 15 mmol/L Normal 8-15 [facility] Comment on above: Order Comment: Speci men Type: BLOOD SPECIMENOrdering Facility: [facility] Address: [address] [place] [address] Performed By: #### 2 4323-8 ####[facility] LABCLIA [id number] [place] [address] AST [Catalytic activity/Vol] 15 U/L Normal 14-40 [facility] Comment on above: Order Comment: Speci men Type: BLOOD SPECIMENOrdering Facility: [facility] Address: [address] [place] [address] Performed By: #### 2 4323-8 ####[facility] LABCLIA [id number] [place] [address] Bilirubin [Mass/Vol] 0.6 mg/dL Normal 0.2-1.3 [facility] Comment on above: Order Comment: Speci men Type: BLOOD SPECIMENOrdering Facility: [facility] Address: [address] [place] [address] Performed By: #### 2 4323-8 ####[facility] LABCLIA [id number] [place] [address] Calcium [Mass/Vol] 9.8 mg/dL Normal 8.5-10.2 [facility] Comment on above: Order Comment: Speci men Type: BLOOD SPECIMENOrdering Facility: [facility] Address: [address] [place] [address] Performed By: #### 2 4323-8 ####[facility] LABCLIA [id number] [place] [address] Chloride [Moles/Vol] 96 mmol/L Low 98-107 [facility] Comment on above: Order Comment: Speci men Type: BLOOD SPECIMENOrdering Facility: [facility] Address: [address] [place] [address] Performed By: #### 2 4323-8 ####[facility] LABCLIA [id number] [place] [address] CO2 [Moles/Vol] 25 mmol/L Normal 22-30 [facility] Comment on above: Order Comment: Speci men Type: BLOOD SPECIMENOrdering Facility: [facility] Address: [address] [place] [address] Performed By: #### 2 4323-8 ####[facility] LABCLIA [id number] [place] [address] Creatinine [Mass/Vol] 1.03 mg/dL Normal 0.73-1.22 [facility] Comment on above: Order Comment: Speci men Type: BLOOD SPECIMENOrdering Facility: [facility] Address: [address] [place] [address] Performed By: #### 2 4323-8 ####[facility] LABCLIA [id number] [place] [address] eGFRcr SerPlBld CKD-EPI 2020 72 mL/min/1.73m??? Normal >=60 [facility] Comment on above: Order Comment: Speci men Type: BLOOD SPECIMENOrdering Facility: [facility] Address: [address] [place] [address] Result Comment: Lana mated Glomerular Filtration Rate (eGFR) is calculated using the 2020 CKD-EPI creatinine equation. This equation utilizes serum creatinine, sex, and age as parameters. The creatinine assay has traceable calibration to isotope dilution-mass spectrometry. Refer to KDIGO guidelines for clinical interpretation. In patients with unstable renal function, e.g. those with acute kidney injury, the eGFR may not accurately reflect actual GFR. Performed By: #### 2 4323-8 ####[facility] LABCLIA [id number] [place] [address] Glucose [Mass/Vol] 376 mg/dL High 74-99 [facility] Comment on above: Order Comment: Nadine cuellar Type: BLOOD SPECIMENOrdering Facility: [facility] Address: [address] [place] [address] Result Comment: The [place] [employer] (ADA) provides guidance for cutoff [...] Standards of Medical Care in Diabetes 2016, [place] [employer]. Diabetes Care. 2016.39(Suppl 1). Performed By: #### 2 4323-8 ####[facility] LABCLIA [id number] [place] [address] Potassium [Moles/Vol] 4.2 mmol/L Normal 3.7-5.1 [facility] Comment on above: Order Comment: Nadine cuellar Type: BLOOD SPECIMENOrdering Facility: [facility] Address: [address] [place] [address] Performed By: #### 2 4323-8 ####[facility] LABCLIA [id number] [place] [address] Protein [Mass/Vol] 6.8 g/dL Normal 6.3-8.0 [facility] Comment on above: Order Comment: Nadine cuellar Type: BLOOD SPECIMENOrdering Facility: [facility] Address: [address] [place] [address] Performed By: #### 2 4323-8 ####[facility] LABCLIA [id number] [place] [address] Sodium [Moles/Vol] 136 mmol/L Normal 136-144 [facility] Comment on above: Order Comment: Speci men Type: BLOOD SPECIMENOrdering Facility: [facility] Address: [address] [place], [place] [address] Performed By: #### 2 4323-8 ####[facility] LABCLIA [id number] [place] [address] Urea nitrogen [Mass/Vol] 27 mg/dL High 9-24 [facility] Comment on above: Order Comment: Speci men Type: BLOOD SPECIMENOrdering Facility: [facility] Address: [address] [place] [address] Performed By: #### 2 4323-8 ####[facility] LABCLIA [id number] [place] [address] CNOVon 03-30-2025 CNOV Office Visit (RADTSA ) MIKECHAD Soler ([id number]) 1940 M Date Time Provider Department 03/30/25 2:15 PM Gisella GRANT RADKATE During your visit today, we recorded the following information about you: Temperature Pulse Respiration Blood pressure 97.4 degrees 99/minute 18/minute 150/74 Weight 89.4 kg Gisella Grant MD 03/30/2025 3:42 PM Signed Radiation Oncology - On Treatment Review (OTR) Note PATIENT NAME: Chad Mckeon PATIENT DIAGNOSIS: 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 COURSE: definitive and concurrent chemotherapy Area Treated: Larynx, bilateral neck Current dose: 2800 Gy in 14 fx Planned dose: 7000 Gy in 35 fx SUBJECTIVE: Doing well. Denies dysphagia. Voice continues to improve. Having some occasional hot flashes. PHYSICAL EXAM: 03/30/25 1448 BP: 150/74 Pulse: 99 Resp: 18 Temp: 36.3 ?C (97.4 ?F) SpO2: 97% Weight: 89.4 kg (197 lb 1.5 oz) KPS: 100 General Appearance: Alert and oriented. No acute distress. Radiation dermatitis: No Mucositis: No Oral cavity and oropharynx: lips and gums normal, oral and pharyngeal mucosa moist, palate elevates normally, tongue mobile and without palpable lesions, tonsils without masses Neck: Normal ROM. No palpable cervical or supraclavicular adenopathy. IMAGING/LAB RESULTS: Hemoglobin (g/dL) Date Value 03/25/2025 13.2 Hematocrit (%) Date Value 03/25/2025 36.8 WBC (k/uL) Date Value 03/25/2025 7.56 Platelet Count (k/uL) Date Value 03/25/2025 104 TOXICITY ASSESSMENT (CTCv4): Dysphagia:grade 0 - No symptoms Mucositis: grade 0 - No symptoms Radiation dermatitis: grade 0 - No symptoms Trismus: grade 0 - No symptoms Voice Changes:grade 2 - Moderate or persistent change from normal voice; still understandable Xerostomia: grade 0 - No symptoms Treatment chart checked: Yes Patient treatment site reviewed and verified:Yes Port films reviewed and current:Yes Medications started: None ASSESSMENT: Patient doing well. Chart and imaging reviewed. Continue radiation as outlined. Gisella Grant MD Allergies As of Date: 03/30/2025 (No Known Allergies) Date Reviewed: 03/30/2025 Reviewed by: Sujata Amezcua RN - Fully Assessed Reason for Visit: Radiotherapy On-treatment Visit [1722] Primary Visit Diagnosis:Head and neck cancer (HCC) [C76.0] Prescriptions as of 03/30/2025 - naproxen sodium (ALEVE) 220 mg tablet Take 220 mg by mouth two times a day with meals. - ondansetron (ZOFRAN) 8 mg tablet Take 1 tablet by mouth every 8 hours as needed for nausea/vomiting. - prochlorperazine (COMPAZINE) 10 mg tablet Take 1 tablet by mouth every 6 hours as needed. - aspirin, enteric coated (ASPIRIN, ENTERIC COATED) 81 mg EC tablet Take 81 mg by mouth once daily. - atorvastatin (LIPITOR) 40 mg tablet Take 40 mg by mouth daily at bedtime. - cetirizine (ZYRTEC) 10 mg tablet Take 10 mg by mouth once daily. - glimepiride (AMARYL) 4 mg tablet TAKE ONE TABLET BY MOUTH ONCE DAILY WITH BREAKFAST OR THE FIRST MAIN MEAL OF THE DAY - magnesium oxide (MAG-OX) 400 mg (241.3 mg magnesium) tablet Take 1 tablet by mouth once daily. - metFORMIN (GLUCOPHAGE) 500 mg tablet take one tablet by mouth twice a day for 30 days - metoprolol tartrate, short acting, (LOPRESSOR) 25 mg tablet Take 12.5 mg by mouth two times a day. - potassium chloride ER (KLOR-CON) 20 mEq tablet Take 20 mEq by mouth daily with food. - JANUVIA 100 mg tablet 1 tablet Orally Once a day for 30 days - vit A/vit C/vit E/zinc/copper (PRESERVISION AREDS ORAL) Take 2 tablets by mouth once daily. - calcium carbonate/vitamin D3 (CALCIUM WITH VITAMIN D3 ORAL) Take 2 tablets by mouth once daily. Problem List As Of Date 03/30/2025 Noted Resolved Head and neck cancer (HCC) [C76.0] 02/01/2025 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) [C3*02/01/2025 Encounter Status:Closed by Gisella GRANT on 03/30/25 Normal [facility] CBC W Auto Differential pane l (Bld)on 03-25-2025 Basophils (Bld) [#/Vol] 0.03 10*3/uL Normal <0.11 [facility] Comment on above: Order Comment: Speci men Type: BLOOD SPECIMENOrdering Facility: [facility] Address: [address] [place] [address] Performed By: #### 5 7021-8 ####[facility] LABCLIA [id number] [place] [address] Basophils/100 WBC (Bld) 0.4 % Normal [facility] Comment on above: Order Comment: Speci men Type: BLOOD SPECIMENOrdering Facility: [facility] Address: [address] [place] [address] Performed By: #### 5 7021-8 ####[facility] LABCLIA [id number] [place] [address] Differential cell count method Nom (Bld) Auto Normal [facility] Comment on above: Order Comment: Speci men Type: BLOOD SPECIMENOrdering Facility: [facility] Address: [address] [place] [address] Performed By: #### 5 7021-8 ####[facility] LABCLIA [id number] [place] [address] Eosinophils (Bld) [#/Vol] 0.04 10*3/uL Normal <0.46 [facility] Comment on above: Order Comment: Speci men Type: BLOOD SPECIMENOrdering Facility: [facility] Address: [address] [place] [address] Performed By: #### 5 7021-8 ####[facility] LABCLIA [id number] [place] [address] Eosinophils/100 WBC (Bld) 0.5 % Normal [facility] Comment on above: Order Comment: Speci men Type: BLOOD SPECIMENOrdering Facility: [facility] Address: [address] [place] [address] Performed By: #### 5 7021-8 ####[facility] LABCLIA [id number] [place] [address] Erythrocyte distribution width (RBC) [Ratio] 13.5 % Normal 11.5-15.0 [facility] Comment on above: Order Comment: Speci men Type: BLOOD SPECIMENOrdering Facility: [facility] Address: [address] [place] [address] Performed By: #### 5 7021-8 ####[facility] LABCLIA [id number] [place] [address] Hematocrit (Bld) [Volume fraction] 36.8 % Low 39.0-51.0 [facility] Comment on above: Order Comment: Speci men Type: BLOOD SPECIMENOrdering Facility: [facility] Address: [address] [place] [address] Performed By: #### 5 7021-8 ####[facility] LABCLIA [id number] [place] [address] Hemoglobin (Bld) [Mass/Vol] 13.2 g/dL Normal 13.0-17.0 [facility] Comment on above: Order Comment: Speci men Type: BLOOD SPECIMENOrdering Facility: [facility] Address: [address] [place] [address] Performed By: #### 5 7021-8 ####[facility] LABCLIA [id number] [place] [address] Immature granulocytes (Bld) [#/Vol] 0.05 10*3/uL Normal <0.10 [facility] Comment on above: Order Comment: Speci men Type: BLOOD SPECIMENOrdering Facility: [facility] Address: [address] [place] [address] Performed By: #### 5 7021-8 ####[facility] LABCLIA [id number] [place] [address] Immature granulocytes/100 WBC (Bld) 0.7 % Normal [facility] Comment on above: Order Comment: Speci men Type: BLOOD SPECIMENOrdering Facility: [facility] Address: [address] [place] [address] Performed By: #### 5 7021-8 ####[facility] LABCLIA [id number] [place] [address] Lymphocytes (Bld) [#/Vol] 0.78 10*3/uL Low 1.00-4.00 [facility] Comment on above: Order Comment: Speci men Type: BLOOD SPECIMENOrdering Facility: [facility] Address: [address] [place] [address] Performed By: #### 5 7021-8 ####[facility] LABCLIA [id number] [place] [address] Lymphocytes/100 WBC (Bld) 10.3 % Normal [facility] Comment on above: Order Comment: Speci men Type: BLOOD SPECIMENOrdering Facility: [facility] Address: [address] [place] [address] Performed By: #### 5 7021-8 ####[facility] LABCLIA [id number] [place] [address] MCH (RBC) [Entitic mass] 32.4 pg Normal 26.0-34.0 [facility] Comment on above: Order Comment: Speci men Type: BLOOD SPECIMENOrdering Facility: [facility] Address: [address] [place] [address] Performed By: #### 5 7021-8 ####[facility] LABCLIA [id number] [place] [address] MCHC (RBC) [Mass/Vol] 35.9 g/dL Normal 30.5-36.0 [facility] Comment on above: Order Comment: Speci men Type: BLOOD SPECIMENOrdering Facility: [facility] Address: [address] [place] [address] Performed By: #### 5 7021-8 ####[facility] LABCLIA [id number] [place] [address] MCV (RBC) [Entitic vol] 90.4 fL Normal 80.0-100.0 [facility] Comment on above: Order Comment: Speci men Type: BLOOD SPECIMENOrdering Facility: [facility] Address: [address] [place] [address] Performed By: #### 5 7021-8 ####[facility] LABCLIA [id number] [place] [address] Monocytes (Bld) [#/Vol] 0.73 10*3/uL Normal <0.87 [facility] Comment on above: Order Comment: Speci men Type: BLOOD SPECIMENOrdering Facility: [facility] Address: [address] [place] [address] Performed By: #### 5 7021-8 ####[facility] LABCLIA [id number] [place] [address] Monocytes/100 WBC (Bld) 9.7 % Normal [facility] Comment on above: Order Comment: Speci men Type: BLOOD SPECIMENOrdering Facility: [facility] Address: [address] [place] [address] Performed By: #### 5 7021-8 ####[facility] LABCLIA [id number] [place] [address] Neutrophils (Bld) [#/Vol] 5.93 10*3/uL Normal 1.45-7.50 [facility] Comment on above: Order Comment: Speci men Type: BLOOD SPECIMENOrdering Facility: [facility] Address: [address] [place] [address] Performed By: #### 5 7021-8 ####[facility] LABCLIA [id number] [place] [address] Neutrophils/100 WBC (Bld) 78.4 % Normal [facility] Comment on above: Order Comment: Speci men Type: BLOOD SPECIMENOrdering Facility: [facility] Address: [address] [place] [address] Performed By: #### 5 7021-8 ####[facility] LABCLIA [id number] [place] [address] Nucleated RBC (Bld) [#/Vol] 10*3/uL Normal <0.01 [facility] Comment on above: Order Comment: Speci men Type: BLOOD SPECIMENOrdering Facility: [facility] Address: [address] [place] [address] Performed By: #### 5 7021-8 ####[facility] LABCLIA [id number] [place] [address] Nucleated RBC/100 WBC (Bld) [Ratio] 0.0 /100 WBC Normal [facility] Comment on above: Order Comment: Speci men Type: BLOOD SPECIMENOrdering Facility: [facility] Address: [address] [place] [address] Performed By: #### 5 7021-8 ####[facility] LABCLIA [id number] [place] [address] Platelet mean volume (Bld) [Entitic vol] 8.5 fL Low 9.0-12.7 [facility] Comment on above: Order Comment: Speci men Type: BLOOD SPECIMENOrdering Facility: [facility] Address: [address] [place] [address] Performed By: #### 5 7021-8 ####[facility] LABIA [id number] [place] [address] Platelets (Bld) [#/Vol] 104 10*3/uL Low 150-400 [facility] Comment on above: Order Comment: Speci men Type: BLOOD SPECIMENOrdering Facility: [facility] Address: [address] [place] [address] Performed By: #### 5 7021-8 ####[facility] LABIA [id number] [place] [address] RBC (Bld) [#/Vol] 4.07 10*6/uL Low 4.20-6.00 [facility] Comment on above: Order Comment: Speci men Type: BLOOD SPECIMENOrdering Facility: [facility] Address: [address] [place] [address] Performed By: #### 5 7021-8 ####[facility] LABIA [id number] [place] [address] WBC (Bld) [#/Vol] 7.56 10*3/uL Normal 3.70-11.00 [facility] Comment on above: Order Comment: Speci men Type: BLOOD SPECIMENOrdering Facility: [facility] Address: [address] [place] [address] Performed By: #### 5 7021-8 ####[facility] LABIA [id number] [place] [address] CNOVSPon 03-25-2025 CNOVSP Visit (SP) Office (HEMASA) CHAD MCKEON ([id number]) 1940 M Date Time Provider Department 03/25/25 11:20 AM CHANDAN BURGOS During your visit today, we recorded the following information about you: Temperature Pulse Respiration Blood pressure 97.9 degrees 80/minute 16/minute 135/74 Weight Height 90.5 kg 1.73 m Chandan Burgos MD 03/31/2025 1:47 PM Signed NAME: Chad Mckeon [facility] NO.: [id number] DATE OF SERVICE: March 25, 2025 (Cassidy) Some elements in this clinic note that are critical to medical decision making have been carefully reviewed and included from a prior clinic note dated: March 18, 2025 (Shawn) Referring Provider: Additional Clinicians involved in Chad Mckeon's care: Elaine Jarquin DIAGNOSIS: 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 CASE SUMMARY / ASSESSMENT: 84 year old man with vocal cord squamous cell cancer presents to start concurrent chemotherapy with radiation for organ preservation. He underwent bronchoscopy 02/24/25 to further evaluate a mediastinal/right paratracheal node found on PET scan. Pathology was negative for malignant cells. Started definitive treatment with concurrent chemotherapy and radiation March 11, 2025. SUMMARIZED PLAN OF CARE: Continue D15 weekly Cisplatin 40 mg/m2 with radiation today Continue Weekly Cisplatin with labs weekly prior RTC in 3 weeks (prior to D36) (04/15/2025) labs clinician treatment AI Assisted A/P: 1. 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) (C32.0) Undergoing treatment with cisplatin chemotherapy and radiation therapy. Tolerating treatment well without significant side effects. No issues with throat or eating reported. - Continue cisplatin chemotherapy weekly. - Continue radiation therapy as planned for a total of 35 sessions. - Monitor for side effects and adjust treatment as necessary. - Follow-up in 3 weeks. 2. Type 2 diabetes mellitus without complication, unspecified whether terminal manager insulin use (HCC) (E11.9) Blood glucose levels elevated, likely due to recent dietary intake of breakfast bars and Boost drink. - Monitor blood glucose levels. - Discuss dietary modifications to manage blood glucose levels. 3. Personal history of nicotine dependence (Z87.891) 4. 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 Malignant neoplasm of unspecified part of unspecified bronchus or lung (HCC) (C34.90) 6. Carpal tunnel syndrome, left upper limb (G56.02) Numbness and tingling in two fingers of the left hand, affecting ability to perform certain activities such as fishing. - Monitor symptoms. - Consider further evaluation and treatment if symptoms worsen or become intolerable. 7. 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 - Rely on assistance from partner for transportation. - Discuss safety measures and alternative transportation options. - CASE HISTORY: Reverse Chronological Order 03/11/2025 - Current : Cisplatin weekly with Radiation 02/24/2025 Bronchoscopy Pathology of FNA transbronchial LN A - Lymph Node, Transbronchial, FNA - 11RS Negative for malignant cells. Benign lymphoid sample. B - Lymph Node, Transbronchial, FNA - 4R Negative for malignant cells. Benign lymphoid sample. (01/28/2025) PET Scan: PRIMARY DISEASE SITE: * Metabolically active nodular [...] increased metabolic activity, however likely below PET resolu (more content not included)... Normal [facility] Comprehensive metabolic 2000 panelon 03-25-2025 Albumin [Mass/Vol] 3.9 g/dL Normal 3.9-4.9 [facility] Comment on above: Order Comment: Speci men Type: BLOOD SPECIMENOrdering Facility: [facility] Address: [address] [place] [address] Performed By: #### 1 9123-9, 11090-6 ####[facility] LABCLIA [id number] [place] [address] ALP [Catalytic activity/Vol] 116 U/L High 38-113 [facility] Comment on above: Order Comment: Speci men Type: BLOOD SPECIMENOrdering Facility: [facility] Address: [address] [place] [address] Performed By: #### 1 9123-9, 99465-4 ####[facility] LABCLIA [id number] [place] [address] ALT [Catalytic activity/Vol] 19 U/L Normal 10-54 [facility] Comment on above: Order Comment: Speci men Type: BLOOD SPECIMENOrdering Facility: [facility] Address: [address] [place] [address] Performed By: #### 1 9123-9, 29448-8 ####[facility] LABCLIA [id number] [place] [address] Anion gap [Moles/Vol] 8 mmol/L Normal 8-15 [facility] Comment on above: Order Comment: Speci men Type: BLOOD SPECIMENOrdering Facility: [facility] Address: [address] [place], [place] [address] Performed By: #### 1 9123-9, 05618-4 ####[facility] LABCLIA [id number] [place] [address] AST [Catalytic activity/Vol] 16 U/L Normal 14-40 [facility] Comment on above: Order Comment: Speci men Type: BLOOD SPECIMENOrdering Facility: [facility] Address: [address] [place] [address] Performed By: #### 1 9123-9, 90360-3 ####[facility] LABCLIA [id number] [place] [address] Bilirubin [Mass/Vol] 0.5 mg/dL Normal 0.2-1.3 [facility] Comment on above: Order Comment: Speci men Type: BLOOD SPECIMENOrdering Facility: [facility] Address: [address] [place] [address] Performed By: #### 1 9123-9, 86784-7 ####[facility] LABCLIA [id number] [place] [address] Calcium [Mass/Vol] 9.4 mg/dL Normal 8.5-10.2 [facility] Comment on above: Order Comment: Speci men Type: BLOOD SPECIMENOrdering Facility: [facility] Address: [address] [place] [address] Performed By: #### 1 9123-9, 55050-0 ####[facility] LABCLIA [id number] [place] [address] Chloride [Moles/Vol] 98 mmol/L Normal 98-107 [facility] Comment on above: Order Comment: Speci men Type: BLOOD SPECIMENOrdering Facility: [facility] Address: [address] [place], [place] [address] Performed By: #### 1 9123-9, 30921-1 ####[facility] LABCLIA [id number] [place] [address] CO2 [Moles/Vol] 28 mmol/L Normal 22-30 [facility] Comment on above: Order Comment: Speci men Type: BLOOD SPECIMENOrdering Facility: [facility] Address: [address] [place] [address] Performed By: #### 1 9123-9, 35808-4 ####[facility] LABCLIA [id number] [place] [address] Creatinine [Mass/Vol] 0.86 mg/dL Normal 0.73-1.22 [facility] Comment on above: Order Comment: Speci men Type: BLOOD SPECIMENOrdering Facility: [facility] Address: [address] [place] [address] Performed By: #### 1 9123-9, ####[facility] LABCLIA [id number] [place] [address] eGFRcr SerPlBld CKD-EPI 2020 86 mL/min/1.73m??? Normal >=60 [facility] Comment on above: Order Comment: Speci men Type: BLOOD SPECIMENOrdering Facility: [facility] Address: [address] [place] [address] Result Comment: Lana mated Glomerular Filtration Rate (eGFR) is calculated using the 2020 CKD-EPI creatinine equation. This equation utilizes serum creatinine, sex, and age as parameters. The creatinine assay has traceable calibration to isotope dilution-mass spectrometry. Refer to KDIGO guidelines for clinical interpretation. In patients with unstable renal function, e.g. those with acute kidney injury, the eGFR may not accurately reflect actual GFR. Performed By: #### 1 9123-9, 52434-7 ####[facility] LABCLIA [id number] [place] [address] Glucose [Mass/Vol] 322 mg/dL High 74-99 [facility] Comment on above: Order Comment: Speci men Type: BLOOD SPECIMENOrdering Facility: [facility] Address: [address] [place], [place] [address] Result Comment: The [place] [employer] (ADA) provides guidance for cutoff [...] Standards of Medical Care in Diabetes 2016, [place] [employer]. Diabetes Care. 2016.39(Suppl 1). Performed By: #### 1 9123-9, 91258-2 ####[facility] LABCLIA [id number] [place] [address] Potassium [Moles/Vol] 4.3 mmol/L Normal 3.7-5.1 [facility] Comment on above: Order Comment: Speci men Type: BLOOD SPECIMENOrdering Facility: [facility] Address: [address] [place] [address] Performed By: #### 1 9123-9, ####[facility] LABIA [id number] [place] [address] Protein [Mass/Vol] 6.1 g/dL Low 6.3-8.0 [facility] Comment on above: Order Comment: Speci men Type: BLOOD SPECIMENOrdering Facility: [facility] Address: [address] [place] [address] Performed By: #### 1 9123-9, 83559-1 ####[facility] LABCLIA [id number] [place] [address] Sodium [Moles/Vol] 134 mmol/L Low 136-144 [facility] Comment on above: Order Comment: Speci men Type: BLOOD SPECIMENOrdering Facility: [facility] Address: [address] [place] [address] Performed By: #### 1 9123-9, 85653-2 ####[facility] LABIA [id number] [place] [address] Urea nitrogen [Mass/Vol] 21 mg/dL Normal 9-24 [facility] Comment on above: Order Comment: Speci men Type: BLOOD SPECIMENOrdering Facility: [facility] Address: [address] [place] [address] Performed By: #### 1 9123-9, 09893-6 ####[facility] LABIA [id number] [place] [address] [facility]esium [facility] Magnesium [Mass/Vol] 1.8 mg/dL Normal 1.7-2.3 [facility] Comment on above: Order Comment: Speci men Type: BLOOD SPECIMENOrdering Facility: [facility] Address: [address] [place] [address] Performed By: #### 1 9123-9, 33994-9 ####[facility] LABIA [id number] [place] [address] CNOVon 03-23-2025 CNOV Office Visit (RADTSA ) CHAD MCKEON ([id number]) 1940 M Date Time Provider Department 03/23/25 5:30 PM Gisella GRANT During your visit today, we recorded the following information about you: Temperature Pulse Respiration Blood pressure 96.7 degrees 99/minute 18/minute 116/71 Weight 90 kg Gisella Grant MD 03/23/2025 5:17 PM Signed Radiation Oncology - On Treatment Review (OTR) Note PATIENT NAME: Chad Mckeon PATIENT DIAGNOSIS: 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 COURSE: definitive and concurrent chemotherapy Area Treated: Larynx, bilateral neck Current dose: 1800 Gy in 9 fx Planned dose: 7000 Gy in 35 fx SUBJECTIVE: Doing well. Easier to talk, hoarseness somewhat improved. PHYSICAL EXAM: 03/23/25 1700 BP: 116/71 Pulse: 99 Resp: 18 Temp: (!) 35.9 ?C (96.7 ?F) SpO2: 96% Weight: 90 kg (198 lb 6.6 oz) KPS: 100 General Appearance: Alert and oriented. No acute distress. Radiation dermatitis: No Mucositis: No Oral cavity and oropharynx: lips and gums normal, oral and pharyngeal mucosa moist, palate elevates normally, tongue mobile and without palpable lesions, tonsils without masses Neck: Normal ROM. No palpable cervical or supraclavicular adenopathy. IMAGING/LAB RESULTS: Hemoglobin (g/dL) Date Value 03/18/2025 14.4 Hematocrit (%) Date Value 03/18/2025 41.2 WBC (k/uL) Date Value 03/18/2025 7.85 Platelet Count (k/uL) Date Value 03/18/2025 165 TOXICITY ASSESSMENT (CTCv4): Dysphagia:grade 0 - No symptoms Mucositis: grade 0 - No symptoms Radiation dermatitis: grade 0 - No symptoms Trismus: grade 0 - No symptoms Voice Changes:grade 2 - Moderate or persistent change from normal voice; still understandable Xerostomia: grade 0 - No symptoms Treatment chart checked: Yes Patient treatment site reviewed and verified:Yes Port films reviewed and current:Yes Medications started: None ASSESSMENT: Patient doing well. Chart and imaging reviewed. Continue radiation as outlined. Gisella Grant MD Allergies As of Date: 03/23/2025 (No Known Allergies) Date Reviewed: 03/18/2025 Reviewed by: Bekah Perdomo PA-C - Fully Assessed Reason for Visit: Radiotherapy On-treatment Visit [1722] Primary Visit Diagnosis:Head and neck cancer (HCC) [C76.0] Prescriptions as of 03/23/2025 - naproxen sodium (ALEVE) 220 mg tablet Take 220 mg by mouth two times a day with meals. - ondansetron (ZOFRAN) 8 mg tablet Take 1 tablet by mouth every 8 hours as needed for nausea/vomiting. - prochlorperazine (COMPAZINE) 10 mg tablet Take 1 tablet by mouth every 6 hours as needed. - aspirin, enteric coated (ASPIRIN, ENTERIC COATED) 81 mg EC tablet Take 81 mg by mouth once daily. - atorvastatin (LIPITOR) 40 mg tablet Take 40 mg by mouth daily at bedtime. - cetirizine (ZYRTEC) 10 mg tablet Take 10 mg by mouth once daily. - glimepiride (AMARYL) 4 mg tablet TAKE ONE TABLET BY MOUTH ONCE DAILY WITH BREAKFAST OR THE FIRST MAIN MEAL OF THE DAY - magnesium oxide (MAG-OX) 400 mg (241.3 mg magnesium) tablet Take 1 tablet by mouth once daily. - metFORMIN (GLUCOPHAGE) 500 mg tablet take one tablet by mouth twice a day for 30 days - metoprolol tartrate, short acting, (LOPRESSOR) 25 mg tablet Take 12.5 mg by mouth two times a day. - potassium chloride ER (KLOR-CON) 20 mEq tablet Take 20 mEq by mouth daily with food. - JANUVIA 100 mg tablet 1 tablet Orally Once a day for 30 days - vit A/vit C/vit E/zinc/copper (PRESERVISION AREDS ORAL) Take 2 tablets by mouth once daily. - calcium carbonate/vitamin D3 (CALCIUM WITH VITAMIN D3 ORAL) Take 2 tablets by mouth once daily. Problem List As Of Date 03/23/2025 Noted Resolved Head and neck cancer (HCC) [C76.0] 02/01/2025 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) [C3*02/01/2025 Encounter Status:Closed by Gisella GRANT on 03/23/25 Normal [facility] CBC W Auto Differential pane l (Bld)on 03-18-2025 Basophils (Bld) [#/Vol] 0.04 10*3/uL Normal <0.11 [facility] Comment on above: Order Comment: Speci men Type: BLOOD SPECIMENOrdering Facility: [facility] Address: [address] [place] [address] Performed By: #### 5 7021-8 ####[facility] LABCLIA [id number] [place] [address] Basophils/100 WBC (Bld) 0.5 % Normal [facility] Comment on above: Order Comment: Speci men Type: BLOOD SPECIMENOrdering Facility: [facility] Address: [address] [place] [address] Performed By: #### 5 7021-8 ####[facility] LABCLIA [id number] [place] [address] Differential cell count method Nom (Bld) Auto Normal [facility] Comment on above: Order Comment: Speci men Type: BLOOD SPECIMENOrdering Facility: [facility] Address: [address] [place] [address] Performed By: #### 5 7021-8 ####[facility] LABCLIA [id number] [place] [address] Eosinophils (Bld) [#/Vol] 0.07 10*3/uL Normal <0.46 [facility] Comment on above: Order Comment: Speci men Type: BLOOD SPECIMENOrdering Facility: [facility] Address: [address] [place] [address] Performed By: #### 5 7021-8 ####[facility] LABCLIA [id number] [place] [address] Eosinophils/100 WBC (Bld) 0.9 % Normal [facility] Comment on above: Order Comment: Speci men Type: BLOOD SPECIMENOrdering Facility: [facility] Address: [address] [place] [address] Performed By: #### 5 7021-8 ####[facility] LABCLIA [id number] [place] [address] Erythrocyte distribution width (RBC) [Ratio] 13.4 % Normal 11.5-15.0 [facility] Comment on above: Order Comment: Speci men Type: BLOOD SPECIMENOrdering Facility: [facility] Address: [address] [place] [address] Performed By: #### 5 7021-8 ####[facility] LABCLIA [id number] [place] [address] Hematocrit (Bld) [Volume fraction] 41.2 % Normal 39.0-51.0 [facility] Comment on above: Order Comment: Speci men Type: BLOOD SPECIMENOrdering Facility: [facility] Address: [address] [place] [address] Performed By: #### 5 7021-8 ####[facility] LABIA [id number] [place] [address] Hemoglobin (Bld) [Mass/Vol] 14.4 g/dL Normal 13.0-17.0 [facility] Comment on above: Order Comment: Speci men Type: BLOOD SPECIMENOrdering Facility: [facility] Address: [address] [place] [address] Performed By: #### 5 7021-8 ####[facility] LABCLIA [id number] [place] [address] Immature granulocytes (Bld) [#/Vol] 0.06 10*3/uL Normal <0.10 [facility] Comment on above: Order Comment: Speci men Type: BLOOD SPECIMENOrdering Facility: [facility] Address: [address] [place] [address] Performed By: #### 5 7021-8 ####[facility] LABIA [id number] [place] [address] Immature granulocytes/100 WBC (Bld) 0.8 % Normal [facility] Comment on above: Order Comment: Speci men Type: BLOOD SPECIMENOrdering Facility: [facility] Address: [address] [place] [address] Performed By: #### 5 7021-8 ####[facility] LABCLIA [id number] [place] [address] Lymphocytes (Bld) [#/Vol] 1.06 10*3/uL Normal 1.00-4.00 [facility] Comment on above: Order Comment: Speci men Type: BLOOD SPECIMENOrdering Facility: [facility] Address: [address] [place] [address] Performed By: #### 5 7021-8 ####[facility] LABCLIA [id number] [place] [address] Lymphocytes/100 WBC (Bld) 13.5 % Normal [facility] Comment on above: Order Comment: Speci men Type: BLOOD SPECIMENOrdering Facility: [facility] Address: [address] [place] [address] Performed By: #### 5 7021-8 ####[facility] LABCLIA [id number] [place] [address] MCH (RBC) [Entitic mass] 31.7 pg Normal 26.0-34.0 [facility] Comment on above: Order Comment: Speci men Type: BLOOD SPECIMENOrdering Facility: [facility] Address: [address] [place] [address] Performed By: #### 5 7021-8 ####[facility] LABCLIA [id number] [place] [address] MCHC (RBC) [Mass/Vol] 35.0 g/dL Normal 30.5-36.0 [facility] Comment on above: Order Comment: Speci men Type: BLOOD SPECIMENOrdering Facility: [facility] Address: [address] [place] [address] Performed By: #### 5 7021-8 ####[facility] LABCLIA [id number] [place] [address] MCV (RBC) [Entitic vol] 90.7 fL Normal 80.0-100.0 [facility] Comment on above: Order Comment: Speci men Type: BLOOD SPECIMENOrdering Facility: [facility] Address: [address] [place] [address] Performed By: #### 5 7021-8 ####[facility] LABCLIA [id number] [place] [address] Monocytes (Bld) [#/Vol] 1.08 10*3/uL High <0.87 [facility] Comment on above: Order Comment: Speci men Type: BLOOD SPECIMENOrdering Facility: [facility] Address: [address] [place] [address] Performed By: #### 5 7021-8 ####[facility] LABCLIA [id number] [place] [address] Monocytes/100 WBC (Bld) 13.8 % Normal [facility] Comment on above: Order Comment: Speci men Type: BLOOD SPECIMENOrdering Facility: [facility] Address: [address] [place] [address] Performed By: #### 5 7021-8 ####[facility] LABCLIA [id number] [place] [address] Neutrophils (Bld) [#/Vol] 5.54 10*3/uL Normal 1.45-7.50 [facility] Comment on above: Order Comment: Speci men Type: BLOOD SPECIMENOrdering Facility: [facility] Address: [address] [place] [address] Performed By: #### 5 7021-8 ####[facility] LABCLIA [id number] [place] [address] Neutrophils/100 WBC (Bld) 70.5 % Normal [facility] Comment on above: Order Comment: Speci men Type: BLOOD SPECIMENOrdering Facility: [facility] Address: [address] [place] [address] Performed By: #### 5 7021-8 ####[facility] LABCLIA [id number] [place] [address] Nucleated RBC (Bld) [#/Vol] 10*3/uL Normal <0.01 [facility] Comment on above: Order Comment: Speci men Type: BLOOD SPECIMENOrdering Facility: [facility] Address: [address] [place] [address] Performed By: #### 5 7021-8 ####[facility] LABCLIA [id number] [place] [address] Nucleated RBC/100 WBC (Bld) [Ratio] 0.0 /100 WBC Normal [facility] Comment on above: Order Comment: Speci men Type: BLOOD SPECIMENOrdering Facility: [facility] Address: [address] [place] [address] Performed By: #### 5 7021-8 ####[facility] LABCLIA [id number] [place] [address] Platelet mean volume (Bld) [Entitic vol] 8.5 fL Low 9.0-12.7 [facility] Comment on above: Order Comment: Speci men Type: BLOOD SPECIMENOrdering Facility: [facility] Address: [address] [place] [address] Performed By: #### 5 7021-8 ####[facility] LABCLIA [id number] [place] [address] Platelets (Bld) [#/Vol] 165 10*3/uL Normal 150-400 [facility] Comment on above: Order Comment: Speci men Type: BLOOD SPECIMENOrdering Facility: [facility] Address: [address] [place] [address] Performed By: #### 5 7021-8 ####[facility] LABCLIA [id number] [place] [address] RBC (Bld) [#/Vol] 4.54 10*6/uL Normal 4.20-6.00 [facility] Comment on above: Order Comment: Speci men Type: BLOOD SPECIMENOrdering Facility: [facility] Address: [address] [place] [address] Performed By: #### 5 7021-8 ####[facility] LABIA [id number] [place] [address] WBC (Bld) [#/Vol] 7.85 10*3/uL Normal 3.70-11.00 [facility] Comment on above: Order Comment: Speci men Type: BLOOD SPECIMENOrdering Facility: [facility] Address: [address] [place] [address] Performed By: #### 5 7021-8 ####[facility] LABCLIA [id number] [place] [address] CNOVSPon 03-18-2025 CNOVSP Visit (SP) Office (HEMASA) CHAD MCKEON ([id number]) 1940 M Date Time Provider Department 03/18/25 11:00 AM BEKAH PERDOMO During your visit today, we recorded the following information about you: Temperature Pulse Respiration Blood pressure 97.4 degrees 86/minute 18/minute 124/73 Weight Height 90.5 kg 1.73 m Bekah Perdomo PA-C 03/18/2025 11:32 AM Signed NAME: Chad Mckeon NO.: [id number] DATE OF SERVICE: March 18, 2025 Referring Provider: (Elements copied from the note dated March 11, 2025, have been reviewed and updated where appropriate, and all reflect current assessment and medical decision making during today's encounter, March 11, 2025) Additional Clinicians involved in Chad Mckeon's care: Elaine Jarquin DIAGNOSIS: 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 He underwent bronchoscopy 02/24/25 to further evaluate a mediastinal/right paratracheal node found on PET scan. Pathology was negative for malignant cells. Started definitive treatment with concurrent chemotherapy and radiation March 11, 2025. SUMMARIZED PLAN OF CARE: 1. 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 Continue cycle 2 of weekly Cisplatin 40 mg/m2 with radiation today . Follow up weekly with labs prior to each treatment. All of his questions were answered. Labs stable today - CASE HISTORY: Reverse Chronological Order 02/24/2025 Bronchoscopy Pathology of FNA transbronchial LN A - Lymph Node, Transbronchial, FNA - 11RS Negative for malignant cells. Benign lymphoid sample. B - Lymph Node, Transbronchial, FNA - 4R Negative for malignant cells. Benign lymphoid sample. 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 (01/07/2025) Laryngoscopic Examination: Left true vocal cord mass with fixation. HPI: Updated Visit, March 18, 2025: Mr. Mckeon returns to continue concurrent weekly Cisplatin with radiation for he SCC of the left vocal cord. He is having increased fatigue. Sunday he cut his grass for 1.5 hour and was very fatigued. Yesterday he did his chores and he had hot flashes. No chills. He did not have a fever. The hot flashes he was having a few months prior to being diagnosed with cancer. Denies any nausea, vomiting, diarrhea, mouth sores, neuropathy. He did have some constipation and increased his miralax to twice a day and it helps. Some days he doesn't have much of a urine stream, but other days he is fine. Swallowing is fine, voice is the same. No pain. His biggest complaint is the pain in his left hip that he has been having for a long time. PET showed degenerative changes in the area. Updated Visit, March 11, 2025: Mr. 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 Since his last visit, he underwent bronchoscopy 02/24/25 to further evaluate a mediastinal/right paratracheal node found on PET scan. Pathology was negative for (more content not included)... Normal [facility] Comprehensive metabolic 2000 panelon 03-18-2025 Albumin [Mass/Vol] 4.1 g/dL Normal 3.9-4.9 [facility] Comment on above: Order Comment: Speci men Type: BLOOD SPECIMENOrdering Facility: [facility] Address: [address] [place] [address] Performed By: #### 1 9123-9, 18699-0 ####[facility] LABCLIA [id number] [place] [address] ALP [Catalytic activity/Vol] 146 U/L High 38-113 [facility] Comment on above: Order Comment: Speci men Type: BLOOD SPECIMENOrdering Facility: [facility] Address: [address] [place] [address] Performed By: #### 1 9123-9, 72916-2 ####[facility] LABCLIA [id number] [place] [address] ALT [Catalytic activity/Vol] 19 U/L Normal 10-54 [facility] Comment on above: Order Comment: Speci men Type: BLOOD SPECIMENOrdering Facility: [facility] Address: [address] [place] [address] Performed By: #### 1 9123-9, 07998-4 ####[facility] LABCLIA [id number] [place] [address] Anion gap [Moles/Vol] 9 mmol/L Normal 8-15 [facility] Comment on above: Order Comment: Speci men Type: BLOOD SPECIMENOrdering Facility: [facility] Address: [address] [place] [address] Performed By: #### 1 9123-9, 74213-0 ####[facility] LABCLIA [id number] [place] [address] AST [Catalytic activity/Vol] 16 U/L Normal 14-40 [facility] Comment on above: Order Comment: Speci men Type: BLOOD SPECIMENOrdering Facility: [facility] Address: [address] [place] [address] Performed By: #### 1 9123-9, 71396-4 ####[facility] LABCLIA [id number] [place] [address] Bilirubin [Mass/Vol] 0.5 mg/dL Normal 0.2-1.3 [facility] Comment on above: Order Comment: Speci men Type: BLOOD SPECIMENOrdering Facility: [facility] Address: [address] [place] [address] Performed By: #### 1 9123-9, 13750-3 ####[facility] LABCLIA [id number] [place] [address] Calcium [Mass/Vol] 9.6 mg/dL Normal 8.5-10.2 [facility] Comment on above: Order Comment: Speci men Type: BLOOD SPECIMENOrdering Facility: [facility] Address: [address] [place] [address] Performed By: #### 1 9123-9, 57003-4 ####[facility] LABCLIA [id number] [place] [address] Chloride [Moles/Vol] 97 mmol/L Low 98-107 [facility] Comment on above: Order Comment: Speci men Type: BLOOD SPECIMENOrdering Facility: [facility] Address: [address] [place] [address] Performed By: #### 1 91239, ####[facility] LABCLIA [id number] [place] [address] CO2 [Moles/Vol] 28 mmol/L Normal 22-30 [facility] Comment on above: Order Comment: Speci men Type: BLOOD SPECIMENOrdering Facility: [facility] Address: [address] [place] [address] Performed By: #### 1 9123-9, 51815-8 ####[facility] LABCLIA [id number] [place] [address] Creatinine [Mass/Vol] 0.92 mg/dL Normal 0.73-1.22 [facility] Comment on above: Order Comment: Speci men Type: BLOOD SPECIMENOrdering Facility: [facility] Address: [address] [place] [address] Performed By: #### 1 9123-9, 54895-3 ####[facility] LABCLIA [id number] [place] [address] eGFRcr SerPlBld CKD-EPI 2021 83 mL/min/1.73m??? Normal >=60 [facility] Comment on above: Order Comment: Nadine cuellar Type: BLOOD SPECIMENOrdering Facility: [facility] Address: [address] [place] [address] Result Comment: Lana mated Glomerular Filtration Rate (eGFR) is calculated using the 2020 CKD-EPI creatinine equation. This equation utilizes serum creatinine, sex, and age as parameters. The creatinine assay has traceable calibration to isotope dilution-mass spectrometry. Refer to KDIGO guidelines for clinical interpretation. In patients with unstable renal function, e.g. those with acute kidney injury, the eGFR may not accurately reflect actual GFR. Performed By: #### 1 9123-9, 41992-6 ####[facility] LABIA [id number] [place] [address] Glucose [Mass/Vol] 448 mg/dL High 74-99 [facility] Comment on above: Order Comment: Nadine cuellar Type: BLOOD SPECIMENOrdering Facility: [facility] Address: [address] [place] [address] Result Comment: The [place] [employer] (ADA) provides guidance for cutoff [...] Standards of Medical Care in Diabetes 2016, [place] [employer]. Diabetes Care. 2016.39(Suppl 1). Performed By: #### 1 9123-9, 75832-7 ####[facility] LABIA [id number] [place] [address] Potassium [Moles/Vol] 4.6 mmol/L Normal 3.7-5.1 [facility] Comment on above: Order Comment: Nadine cuellar Type: BLOOD SPECIMENOrdering Facility: [facility] Address: [address] [place] [address] Performed By: #### 1 9123-9, 09648-3 ####[facility] LABCLIA [id number] [place] [address] Protein [Mass/Vol] 6.8 g/dL Normal 6.3-8.0 [facility] Comment on above: Order Comment: Speci men Type: BLOOD SPECIMENOrdering Facility: [facility] Address: [address] [place] [address] Performed By: #### 1 9123-9, 18689-0 ####[facility] LABCLIA [id number] [place] [address] Sodium [Moles/Vol] 134 mmol/L Low 136-144 [facility] Comment on above: Order Comment: Speci men Type: BLOOD SPECIMENOrdering Facility: [facility] Address: [address] [place] [address] Performed By: #### 1 9123-9, ####[facility] LABCLIA [id number] [place] [address] Urea nitrogen [Mass/Vol] 23 mg/dL Normal 9-24 [facility] Comment on above: Order Comment: Speci men Type: BLOOD SPECIMENOrdering Facility: [facility] Address: [address] [place] [address] Performed By: #### 1 9123-9, 39665-2 ####[facility] LABCLIA [id number] [place] [address] Magnesium [facility] Magnesium [Mass/Vol] 1.7 mg/dL Normal 1.7-2.3 [facility] Comment on above: Order Comment: Speci men Type: BLOOD SPECIMENOrdering Facility: [facility] Address: [address] [place], [place] [address] Performed By: #### 1 9123-9, 57400-7 ####[facility] LABIA [id number] [place] [address] CNOVon 03-16-2025 CNOV Office Visit (RADTSA ) CAHD MCEKON ([id number]) 1940 M Date Time Provider Department 03/16/25 2:45 PM Gisella GRANT During your visit today, we recorded the following information about you: Temperature Pulse Respiration Blood pressure 97 degrees 81/minute 18/minute 152/74 Weight Height 90.2 kg 1.73 m Gisella Grant MD 03/16/2025 4:20 PM Signed Radiation Oncology - On Treatment Review (OTR) Note PATIENT NAME: Chad Mckeon PATIENT DIAGNOSIS: 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 COURSE: definitive and concurrent chemotherapy Area Treated: Larynx, bilateral neck Current dose: 800 Gy in 4 fx Planned dose: 7000 Gy in 35 fx SUBJECTIVE: Increased fatigue, no other changes. PHYSICAL EXAM: 03/16/25 1503 BP: 152/74 BP Site: Left Arm BP Position: Sitting BP Cuff Size: Regular Adult Pulse: 81 Resp: 18 Temp: 36.1 ?C (97 ?F) TempSrc: Temporal SpO2: 97% Weight: 90.2 kg (198 lb 13.7 oz) Height: 173 cm (5' 8.11 ) KPS: 100 General Appearance: Alert and oriented. No acute distress. Radiation dermatitis: No Mucositis: No Oral cavity and oropharynx: lips and gums normal, oral and pharyngeal mucosa moist, palate elevates normally, tongue mobile and without palpable lesions, tonsils without masses Neck: Normal ROM. No palpable cervical or supraclavicular adenopathy. IMAGING/LAB RESULTS: Hemoglobin (g/dL) Date Value 03/11/2025 14.9 Hematocrit (%) Date Value 03/11/2025 42.5 WBC (k/uL) Date Value 03/11/2025 8.74 Platelet Count (k/uL) Date Value 03/11/2025 146 TOXICITY ASSESSMENT (CTCv4): Dysphagia:grade 0 - No symptoms Mucositis: grade 0 - No symptoms Radiation dermatitis: grade 0 - No symptoms Trismus: grade 0 - No symptoms Voice Changes:grade 2 - Moderate or persistent change from normal voice; still understandable Xerostomia: grade 0 - No symptoms Treatment chart checked: Yes Patient treatment site reviewed and verified:Yes Port films reviewed and current:Yes Medications started: None ASSESSMENT: Patient doing well. Chart and imaging reviewed. Continue radiation as outlined. Gisella Grant MD Referring Provider: Gisella GRANT [[id number]] Allergies As of Date: 03/16/2025 (No Known Allergies) Date Reviewed: 03/16/2025 Reviewed by: Ramila Sun MA - Fully Assessed Reason for Visit: Head and Neck Cancer [551] Cmt: Treatment visit Primary Visit Diagnosis:Head and neck cancer (HCC) [C76.0] Prescriptions as of 03/16/2025 - naproxen sodium (ALEVE) 220 mg tablet Take 220 mg by mouth two times a day with meals. - ondansetron (ZOFRAN) 8 mg tablet Take 1 tablet by mouth every 8 hours as needed for nausea/vomiting. - prochlorperazine (COMPAZINE) 10 mg tablet Take 1 tablet by mouth every 6 hours as needed. - aspirin, enteric coated (ASPIRIN, ENTERIC COATED) 81 mg EC tablet Take 81 mg by mouth once daily. - atorvastatin (LIPITOR) 40 mg tablet Take 40 mg by mouth daily at bedtime. - cetirizine (ZYRTEC) 10 mg tablet Take 10 mg by mouth once daily. - glimepiride (AMARYL) 4 mg tablet TAKE ONE TABLET BY MOUTH ONCE DAILY WITH BREAKFAST OR THE FIRST MAIN MEAL OF THE DAY - magnesium oxide (MAG-OX) 400 mg (241.3 mg magnesium) tablet Take 1 tablet by mouth once daily. - metFORMIN (GLUCOPHAGE) 500 mg tablet take one tablet by mouth twice a day for 30 days - metoprolol tartrate, short acting, (LOPRESSOR) 25 mg tablet Take 12.5 mg by mouth two times a day. - potassium chloride ER (KLOR-CON) 20 mEq tablet Take 20 mEq by mouth daily with food. - JANUVIA 100 mg tablet 1 tablet Orally Once a day for 30 days - vit A/vit C/vit E/zinc/copper (PRESERVISION AREDS ORAL) Take 2 tablets by mouth once daily. - calcium carbonate/vitamin D3 (CALCIUM WITH VITAMIN D3 ORAL) Take 2 tablets by mouth once daily. Problem List As Of Date 03/16/2025 Noted Resolved Head and neck cancer (HCC) [C76.0] 02/01/2025 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) [C3*02/01/2025 Encounter Status:Closed by Gisella GRANT on 03/16/25 [facility] Yvonne 03-16-2025 MARY ELLENN Telephone (HEMSHAYLA) CHAD MCKEON ([id number]) 1940 M Date Time Provider Department 03/16/25 VLADIMIR FINLEY During your visit today, we recorded the following information about you: Vladimir Finley RN 03/16/2025 11:48 AM Signed CYCLE 1/DAY 1 POST TREATMENT CALL Today's date: March 16, 2025 Treatment Regimen: Cisplatin C1D1 Date: 03/11/25 Called patient to follow-up on symptom management. Spoke with patient. SYMPTOM ASSESSMENT Neuro: Headache - Occasional. Relieved w/ Alleve. and Numbness/Weakness/Tingl ing - Nothing new. CV/Resp: None GI/: Appetite: decreased appetite. Reports he's eating, but food doesn't look good. Denies any trouble swallowing. Plans to start boost today, Fluid intake: 3-4 cups of coffee and 1 - 1.5 quarts of water per day, Constipation: yes, last BM yesterday. Reports he increased his Miralax from 2 tsp/day to 2 heaping tsp/day, and Bladder/Urinary Changes: Notes his urine stream was slow to start and weaker on Sunday and Sunday. Denies any issues today. Integument: None Activity: Patient reported decreased energy level Do you need to take naps? No Rates his fatigue -05/06. Sleeps at 9 PM and then wakes up 3-4 time per night. Pain: No=0 (pain 0 on a scale of 0-10). Fever: No Chills: No Any new referrals needed? No Reinforced CURRENT treatment education based on current and anticipated symptoms. Discussed port/line care and patient verbalizes understanding: Not Applicable Patient instructed to contact office or after hours Hematology/Oncology fellow for: temperature >= 100.4; questions or concerns. Patient verbalized understanding of when to seek medical attention and after hours number protocol. Vladimir Finley RN Allergies As of Date: 03/16/2025 (No Known Allergies) Date Reviewed: 03/11/2025 Reviewed by: Bekah Perdomo PA-C - Fully Assessed Reason for Visit: Care Coordination [2291] Cmt: C1D1 Post Treatment Call Prescriptions as of 03/16/2025 - naproxen sodium (ALEVE) 220 mg tablet Take 220 mg by mouth two times a day with meals. - ondansetron (ZOFRAN) 8 mg tablet Take 1 tablet by mouth every 8 hours as needed for nausea/vomiting. - prochlorperazine (COMPAZINE) 10 mg tablet Take 1 tablet by mouth every 6 hours as needed. - aspirin, enteric coated (ASPIRIN, ENTERIC COATED) 81 mg EC tablet Take 81 mg by mouth once daily. - atorvastatin (LIPITOR) 40 mg tablet Take 40 mg by mouth daily at bedtime. - cetirizine (ZYRTEC) 10 mg tablet Take 10 mg by mouth once daily. - glimepiride (AMARYL) 4 mg tablet TAKE ONE TABLET BY MOUTH ONCE DAILY WITH BREAKFAST OR THE FIRST MAIN MEAL OF THE DAY - magnesium oxide (MAG-OX) 400 mg (241.3 mg magnesium) tablet Take 1 tablet by mouth once daily. - metFORMIN (GLUCOPHAGE) 500 mg tablet take one tablet by mouth twice a day for 30 days - metoprolol tartrate, short acting, (LOPRESSOR) 25 mg tablet Take 12.5 mg by mouth two times a day. - potassium chloride ER (KLOR-CON) 20 mEq tablet Take 20 mEq by mouth daily with food. - JANUVIA 100 mg tablet 1 tablet Orally Once a day for 30 days - vit A/vit C/vit E/zinc/copper (PRESERVISION AREDS ORAL) Take 2 tablets by mouth once daily. - calcium carbonate/vitamin D3 (CALCIUM WITH VITAMIN D3 ORAL) Take 2 tablets by mouth once daily. Problem List As Of Date 03/16/2025 Noted Resolved Head and neck cancer (HCC) [C76.0] 02/01/2025 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) [C3*02/01/2025 Encounter Status:Closed by VLADIMIR FINLEY on 03/16/25 Normal [facility] CBC W Auto Differential pane l (Bld)on 03-11-2025 Basophils (Bld) [#/Vol] 0.05 10*3/uL Normal <0.11 [facility] Comment on above: Order Comment: Speci men Type: BLOOD SPECIMENOrdering Facility: [facility] Address: [address] [place] [address] Performed By: #### 5 7021-8 ####[facility] LABCLIA [id number] [place] [address] Basophils/100 WBC (Bld) 0.6 % Normal [facility] Comment on above: Order Comment: Speci men Type: BLOOD SPECIMENOrdering Facility: [facility] Address: [address] [place] [address] Performed By: #### 5 7021-8 ####[facility] LABCLIA [id number] [place] [address] Differential cell count method Nom (Bld) Auto Normal [facility] Comment on above: Order Comment: Speci men Type: BLOOD SPECIMENOrdering Facility: [facility] Address: [address] [place] [address] Performed By: #### 5 7021-8 ####[facility] LABCLIA [id number] [place] [address] Eosinophils (Bld) [#/Vol] 0.15 10*3/uL Normal <0.46 [facility] Comment on above: Order Comment: Speci men Type: BLOOD SPECIMENOrdering Facility: [facility] Address: [address] [place] [address] Performed By: #### 5 7021-8 ####[facility] LABCLIA [id number] [place] [address] Eosinophils/100 WBC (Bld) 1.7 % Normal [facility] Comment on above: Order Comment: Speci men Type: BLOOD SPECIMENOrdering Facility: [facility] Address: [address] [place] [address] Performed By: #### 5 7021-8 ####[facility] LABCLIA [id number] [place] [address] Erythrocyte distribution width (RBC) [Ratio] 13.5 % Normal 11.5-15.0 [facility] Comment on above: Order Comment: Speci men Type: BLOOD SPECIMENOrdering Facility: [facility] Address: [address] [place] [address] Performed By: #### 5 7021-8 ####[facility] LABCLIA [id number] [place] [address] Hematocrit (Bld) [Volume fraction] 42.5 % Normal 39.0-51.0 [facility] Comment on above: Order Comment: Speci men Type: BLOOD SPECIMENOrdering Facility: [facility] Address: [address] [place] [address] Performed By: #### 5 7021-8 ####[facility] LABCLIA [id number] [place] [address] Hemoglobin (Bld) [Mass/Vol] 14.9 g/dL Normal 13.0-17.0 [facility] Comment on above: Order Comment: Speci men Type: BLOOD SPECIMENOrdering Facility: [facility] Address: [address] [place] [address] Performed By: #### 5 7021-8 ####[facility] LABCLIA [id number] [place] [address] Immature granulocytes (Bld) [#/Vol] 0.06 10*3/uL Normal <0.10 [facility] Comment on above: Order Comment: Speci men Type: BLOOD SPECIMENOrdering Facility: [facility] Address: [address] [place] [address] Performed By: #### 5 7021-8 ####[facility] LABCLIA [id number] [place] [address] Immature granulocytes/100 WBC (Bld) 0.7 % Normal [facility] Comment on above: Order Comment: Speci men Type: BLOOD SPECIMENOrdering Facility: [facility] Address: [address] [place] [address] Performed By: #### 5 7021-8 ####[facility] LABCLIA [id number] [place] [address] Lymphocytes (Bld) [#/Vol] 1.54 10*3/uL Normal 1.00-4.00 [facility] Comment on above: Order Comment: Speci men Type: BLOOD SPECIMENOrdering Facility: [facility] Address: [address] [place] [address] Performed By: #### 5 7021-8 ####[facility] LABCLIA [id number] [place] [address] Lymphocytes/100 WBC (Bld) 17.6 % Normal [facility] Comment on above: Order Comment: Speci men Type: BLOOD SPECIMENOrdering Facility: [facility] Address: [address] [place] [address] Performed By: #### 5 7021-8 ####[facility] LABCLIA [id number] [place] [address] MCH (RBC) [Entitic mass] 31.7 pg Normal 26.0-34.0 [facility] Comment on above: Order Comment: Speci men Type: BLOOD SPECIMENOrdering Facility: [facility] Address: [address] [place] [address] Performed By: #### 5 7021-8 ####[facility] LABCLIA [id number] [place] [address] MCHC (RBC) [Mass/Vol] 35.1 g/dL Normal 30.5-36.0 [facility] Comment on above: Order Comment: Speci men Type: BLOOD SPECIMENOrdering Facility: [facility] Address: [address] [place] [address] Performed By: #### 5 7021-8 ####[facility] LABCLIA [id number] [place] [address] MCV (RBC) [Entitic vol] 90.4 fL Normal 80.0-100.0 [facility] Comment on above: Order Comment: Speci men Type: BLOOD SPECIMENOrdering Facility: [facility] Address: [address] [place] [address] Performed By: #### 5 7021-8 ####[facility] LABCLIA [id number] [place] [address] Monocytes (Bld) [#/Vol] 0.95 10*3/uL High <0.87 [facility] Comment on above: Order Comment: Speci men Type: BLOOD SPECIMENOrdering Facility: [facility] Address: [address] [place] [address] Performed By: #### 5 7021-8 ####[facility] LABCLIA [id number] [place] [address] Monocytes/100 WBC (Bld) 10.9 % Normal [facility] Comment on above: Order Comment: Speci men Type: BLOOD SPECIMENOrdering Facility: [facility] Address: [address] [place] [address] Performed By: #### 5 7021-8 ####[facility] LABCLIA [id number] [place] [address] Neutrophils (Bld) [#/Vol] 5.99 10*3/uL Normal 1.45-7.50 [facility] Comment on above: Order Comment: Speci men Type: BLOOD SPECIMENOrdering Facility: [facility] Address: [address] [place] [address] Performed By: #### 5 7021-8 ####[facility] LABCLIA [id number] [place] [address] Neutrophils/100 WBC (Bld) 68.5 % Normal [facility] Comment on above: Order Comment: Speci men Type: BLOOD SPECIMENOrdering Facility: [facility] Address: [address] [place] [address] Performed By: #### 5 7021-8 ####[facility] LABCLIA [id number] [place] [address] Nucleated RBC (Bld) [#/Vol] 10*3/uL Normal <0.01 [facility] Comment on above: Order Comment: Speci men Type: BLOOD SPECIMENOrdering Facility: [facility] Address: [address] [place] [address] Performed By: #### 5 7021-8 ####[facility] LABCLIA [id number] [place] [address] Nucleated RBC/100 WBC (Bld) [Ratio] 0.0 /100 WBC Normal [facility] Comment on above: Order Comment: Speci men Type: BLOOD SPECIMENOrdering Facility: [facility] Address: [address] [place] [address] Performed By: #### 5 7021-8 ####[facility] LABCLIA [id number] [place] [address] Platelet mean volume (Bld) [Entitic vol] 8.1 fL Low 9.0-12.7 [facility] Comment on above: Order Comment: Speci men Type: BLOOD SPECIMENOrdering Facility: [facility] Address: [address] [place] [address] Performed By: #### 5 7021-8 ####[facility] LABCLIA [id number] [place] [address] Platelets (Bld) [#/Vol] 146 10*3/uL Low 150-400 [facility] Comment on above: Order Comment: Speci men Type: BLOOD SPECIMENOrdering Facility: [facility] Address: [address] [place] [address] Performed By: #### 5 7021-8 ####[facility] LABCLIA [id number] [place] [address] RBC (Bld) [#/Vol] 4.70 10*6/uL Normal 4.20-6.00 [facility] Comment on above: Order Comment: Speci men Type: BLOOD SPECIMENOrdering Facility: [facility] Address: [address] [place] [address] Performed By: #### 5 7021-8 ####[facility] LABIA [id number] [place] [address] WBC (Bld) [#/Vol] 8.74 10*3/uL Normal 3.70-11.00 [facility] [facility] Comment on above: Order Comment: Speci men Type: BLOOD SPECIMENOrdering Facility: [facility] Address: [address] [place] [address] Performed By: #### 5 7021-8 ####[facility] LABIA [id number] [place] [address] FÉLIXOVon 03-11-2025 CNOV Office Visit (RADTSA ) CHAD MCKEON ([id number]) 1940 M Date Time Provider Department 03/11/25 3:00 PM Gisella GRANT During your visit today, we recorded the following information about you: Gisella Grant MD 03/11/2025 4:02 PM Signed Radiation Oncology - On Treatment Review (OTR) Note PATIENT NAME: Chad Mckeon PATIENT DIAGNOSIS: 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 COURSE: definitive and concurrent chemotherapy Area Treated: Larynx, bilateral neck Current dose: 200 Gy in 1 fx Planned dose: 7000 Gy in 35 fx SUBJECTIVE: No new issues. PHYSICAL EXAM: KPS: 100 General Appearance: Alert and oriented. No acute distress. Radiation dermatitis: No Mucositis: No Oral cavity and oropharynx: lips and gums normal, oral and pharyngeal mucosa moist, palate elevates normally, tongue mobile and without palpable lesions, tonsils without masses Neck: Normal ROM. No palpable cervical or supraclavicular adenopathy. IMAGING/LAB RESULTS: Hemoglobin (g/dL) Date Value 03/11/2025 14.9 Hematocrit (%) Date Value 03/11/2025 42.5 WBC (k/uL) Date Value 03/11/2025 8.74 Platelet Count (k/uL) Date Value 03/11/2025 146 TOXICITY ASSESSMENT (CTCv4): Dysphagia:grade 0 - No symptoms Mucositis: grade 0 - No symptoms Radiation dermatitis: grade 0 - No symptoms Trismus: grade 0 - No symptoms Voice Changes:grade 2 - Moderate or persistent change from normal voice; still understandable Xerostomia: grade 0 - No symptoms Treatment chart checked: Yes Patient treatment site reviewed and verified:Yes Port films reviewed and current:Yes Medications started: None ASSESSMENT: Patient starting radiation today. Plan of care and expectations again reviewed. Plan, MU calculations and qa report reviewed. Initial imaging including cone beam ct and verification reviewed and approved. First treatment given. Continue radiation as prescribed. Gisella Grant MD Referring Provider: Gisella GRANT [[id number]] Allergies As of Date: 03/11/2025 (No Known Allergies) Date Reviewed: 03/11/2025 Reviewed by: Bekah Perdomo PA-C - Fully Assessed Reason for Visit: Radiotherapy On-treatment Visit [1722] Primary Visit Diagnosis:Head and neck cancer (HCC) [C76.0] Prescriptions as of 03/11/2025 - naproxen sodium (ALEVE) 220 mg tablet Take 220 mg by mouth two times a day with meals. - ondansetron (ZOFRAN) 8 mg tablet Take 1 tablet by mouth every 8 hours as needed for nausea/vomiting. - prochlorperazine (COMPAZINE) 10 mg tablet Take 1 tablet by mouth every 6 hours as needed. - aspirin, enteric coated (ASPIRIN, ENTERIC COATED) 81 mg EC tablet Take 81 mg by mouth once daily. - atorvastatin (LIPITOR) 40 mg tablet Take 40 mg by mouth daily at bedtime. - cetirizine (ZYRTEC) 10 mg tablet Take 10 mg by mouth once daily. - glimepiride (AMARYL) 4 mg tablet TAKE ONE TABLET BY MOUTH ONCE DAILY WITH BREAKFAST OR THE FIRST MAIN MEAL OF THE DAY - magnesium oxide (MAG-OX) 400 mg (241.3 mg magnesium) tablet Take 1 tablet by mouth once daily. - metFORMIN (GLUCOPHAGE) 500 mg tablet take one tablet by mouth twice a day for 30 days - metoprolol tartrate, short acting, (LOPRESSOR) 25 mg tablet Take 12.5 mg by mouth two times a day. - potassium chloride ER (KLOR-CON) 20 mEq tablet Take 20 mEq by mouth daily with food. - JANUVIA 100 mg tablet 1 tablet Orally Once a day for 30 days - vit A/vit C/vit E/zinc/copper (PRESERVISION AREDS ORAL) Take 2 tablets by mouth once daily. - calcium carbonate/vitamin D3 (CALCIUM WITH VITAMIN D3 ORAL) Take 2 tablets by mouth once daily. Problem List As Of Date 03/11/2025 Noted Resolved Head and neck cancer (HCC) [C76.0] 02/01/2025 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) [C3*02/01/2025 Encounter Status:Closed by Gisella GRANT on 03/11/25 [facility] CNOVSPon 03-11-2025 CNOVSP [facility]SP[facility] ([id number]) 1940 M Date Time Provider Department 03/11/25 11:00 AM BEKAH PERDOMO During your visit today, we recorded the following information about you: Temperature Pulse Respiration Blood pressure 97.7 degrees 75/minute 18/minute 140/70 Weight Height 90.9 kg 1.73 m Bekah Perdomo PA-C 03/11/2025 11:21 AM Signed NAME: Mike Chad CLINIC NO.: [id number] DATE OF SERVICE: March 11, 2025 Referring Provider: (Elements copied from the note dated January 30, 2025, have been reviewed and updated where appropriate, and all reflect current assessment and medical decision making during today's encounter, March 11, 2025) Additional Clinicians involved in Chad Mckeon's care: Elaine Jarquin DIAGNOSIS: CASE SUMMARY / ASSESSMENT: 84 year old man with vocal cord squamous cell cancer presents to start concurrent chemotherapy with radiation for organ preservation. He underwent bronchoscopy 02/24/25 to further evaluate a mediastinal/right paratracheal node found on PET scan. Pathology was negative for malignant cells. Today we are starting definitive treatment with concurrent chemotherapy and radiation. SUMMARIZED PLAN OF CARE: 1. 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 Patient to start weekly Cisplatin 40 mg/m2 with radiation today . Follow up weekly with labs prior to each treatment. All of his questions were answered. - CASE HISTORY: Reverse Chronological Order 02/24/2025 Bronchoscopy Pathology of FNA transbronchial LN A - Lymph Node, Transbronchial, FNA - 11RS Negative for malignant cells. Benign lymphoid sample. B - Lymph Node, Transbronchial, FNA - 4R Negative for malignant cells. Benign lymphoid sample. 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 (01/07/2025) Laryngoscopic Examination: Left true vocal cord mass with fixation. HPI: Updated Visit, March 11, 2025: Mr. 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 Since his last visit, he underwent bronchoscopy 02/24/25 to further evaluate a mediastinal/right paratracheal node found on PET scan. Pathology was negative for malignant cells. Today we are starting definitive treatment with concurrent chemotherapy (cisplatin 40 mg/m2 weekly)and radiation. He is feeling well today. He still denies dysphagia. He is eating and drinking well. His biggest problem is his hoarse voice. Initial Visit, January 30, 2025: Chad Mckeon presents today Hematology and Oncology evaluation. He is a 84 year old male. 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 Normal [facility] Comprehensive metabolic 2000 panelon 03-11-2025 Albumin [Mass/Vol] 4.2 g/dL Normal 3.9-4.9 [facility] Comment on above: Order Comment: Speci men Type: BLOOD SPECIMENOrdering Facility: [facility] Address: [address] [place] [address] Performed By: #### 2 4323-8 ####[facility] LABCLIA [id number] [place] [address] ALP [Catalytic activity/Vol] 133 U/L High 38-113 [facility] Comment on above: Order Comment: Speci men Type: BLOOD SPECIMENOrdering Facility: [facility] Address: [address] [place] [address] Performed By: #### 2 4323-8 ####[facility] LABCLIA [id number] [place] [address] ALT [Catalytic activity/Vol] 19 U/L Normal 10-54 [facility] Comment on above: Order Comment: Speci men Type: BLOOD SPECIMENOrdering Facility: [facility] Address: [address] [place] [address] Performed By: #### 2 4323-8 ####[facility] LABCLIA [id number] [place] [address] Anion gap [Moles/Vol] 11 mmol/L Normal 8-15 [facility] Comment on above: Order Comment: Speci men Type: BLOOD SPECIMENOrdering Facility: [facility] Address: [address] [place] [address] Performed By: #### 2 4323-8 ####[facility] LABCLIA [id number] [place] [address] AST [Catalytic activity/Vol] 18 U/L Normal 14-40 [facility] Comment on above: Order Comment: Speci men Type: BLOOD SPECIMENOrdering Facility: [facility] Address: [address] [place] [address] Performed By: #### 2 4323-8 ####[facility] LABCLIA [id number] [place] [address] Bilirubin [Mass/Vol] 0.6 mg/dL Normal 0.2-1.3 [facility] Comment on above: Order Comment: Speci men Type: BLOOD SPECIMENOrdering Facility: [facility] Address: [address] [place] [address] Performed By: #### 2 4323-8 ####[facility] LABCLIA [id number] [place] [address] Calcium [Mass/Vol] 10.0 mg/dL Normal 8.5-10.2 [facility] Comment on above: Order Comment: Speci men Type: BLOOD SPECIMENOrdering Facility: [facility] Address: [address] [place] [address] Performed By: #### 2 4323-8 ####[facility] LABCLIA [id number] [place] [address] Chloride [Moles/Vol] 100 mmol/L Normal 98-107 [facility] Comment on above: Order Comment: Speci men Type: BLOOD SPECIMENOrdering Facility: [facility] Address: [address] [place] [address] Performed By: #### 2 4323-8 ####[facility] LABCLIA [id number] [place] [address] CO2 [Moles/Vol] 26 mmol/L Normal 22-30 [facility] Comment on above: Order Comment: Speci men Type: BLOOD SPECIMENOrdering Facility: [facility] Address: [address] [place] [id number] Performed By: #### 2 4323-8 ####[facility] LABCLIA [id number] [place] [address] Creatinine [Mass/Vol] 0.93 mg/dL Normal 0.73-1.22 [facility] Comment on above: Order Comment: Speci men Type: BLOOD SPECIMENOrdering Facility: [facility] Address: [address] [place] [address] Performed By: #### 2 4323-8 ####[facility] LABCLIA [id number] [place] [address] eGFRcr SerPlBld CKD-EPI 2020 81 mL/min/1.73m??? Normal >=60 [facility] Comment on above: Order Comment: Speci men Type: BLOOD SPECIMENOrdering Facility: [facility] Address: [address] [place] [address] Result Comment: Lana mated Glomerular Filtration Rate (eGFR) is calculated using the 2020 CKD-EPI creatinine equation. This equation utilizes serum creatinine, sex, and age as parameters. The creatinine assay has traceable calibration to isotope dilution-mass spectrometry. Refer to KDIGO guidelines for clinical interpretation. In patients with unstable renal function, e.g. those with acute kidney injury, the eGFR may not accurately reflect actual GFR. Performed By: #### 2 4323-8 ####[facility] LABCLIA [id number] [place] [address] Glucose [Mass/Vol] 218 mg/dL High 74-99 [facility] Comment on above: Order Comment: Speci men Type: BLOOD SPECIMENOrdering Facility: [facility] Address: [address] [place], [place] [address] Result Comment: The [place] [employer] (ADA) provides guidance for cutoff [...] Standards of Medical Care in Diabetes 2016, [place] [employer]. Diabetes Care. 2016.39(Suppl 1). Performed By: #### 2 4323-8 ####[facility] LABCLIA [id number] [place] [address] Potassium [Moles/Vol] 4.4 mmol/L Normal 3.7-5.1 [facility] Comment on above: Order Comment: Speci men Type: BLOOD SPECIMENOrdering Facility: [facility] Address: [address] [place] [address] Performed By: #### 2 4323-8 ####[facility] LABCLIA [id number] [place] [address] Protein [Mass/Vol] 6.8 g/dL Normal 6.3-8.0 [facility] Comment on above: Order Comment: Speci men Type: BLOOD SPECIMENOrdering Facility: [facility] Address: [address] [place] [address] Performed By: #### 2 4323-8 ####[facility] LABCLIA [id number] [place] [address] Sodium [Moles/Vol] 137 mmol/L Normal 136-144 [facility] Comment on above: Order Comment: Speci men Type: BLOOD SPECIMENOrdering Facility: [facility] Address: [address] [place] [address] Performed By: #### 2 4323-8 ####[facility] LABCLIA [id number] [place] [address] Urea nitrogen [Mass/Vol] 15 mg/dL Normal 9-24 [facility] Comment on above: Order Comment: Speci men Type: BLOOD SPECIMENOrdering Facility: [facility] Address: [address] [place] [address] Performed By: #### 2 4323-8 ####[facility] [id number] [place] [address] [facility] CNN[facility]SE Nurse Visit (HEMASA) MIKECHAD MAURO ([id number]) 1940 M Date Time Provider Department 03/03/25 11:00 AM VLADIMIR FINLEY During your visit today, we recorded the following information about you: Blanca Hernandez [facility] 03/03/2025 11:11 AM Signed [facility] Department of Pharmacy Oncology Pharmacy Medication Education Patient Name: Chad Mckeon Primary Oncologist: Cassidy Diagnosis: 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 Concurrent with XRT Drug Interactions: Clinically significant interactions with chemotherapy, immunosuppression, or other standard of care treatment plan medications anticipated: No. There are no pertinent drug interactions identified. Patient was counseled accordingly. Allergies: Patient confirmed allergies documented in Epic are correct: Yes Was medication education provided?: Yes Medication Education: Administration and schedule: CISPLATIN 40 D1,8,15,22,29,36,43 - ONCE Potential side effects discussed: yes PO chemo: Not applicable Was medication reconciliation performed?: Yes Changes made to medication list? Yes The following medications were updated within the home medication list: Medications ADDED to home medication list: Naproxen (aleve) Medications UPDATED on home medication list: Aspirin Calcium/vit d3 Mag-ox preservision Current Outpatient Medications Medication Sig naproxen sodium (ALEVE) 220 mg tablet Take 220 mg by mouth two times a day with meals. aspirin, enteric coated (ASPIRIN, ENTERIC COATED) 81 mg EC tablet Take 81 mg by mouth. atorvastatin (LIPITOR) 40 mg tablet Take 40 mg by mouth daily at bedtime. cetirizine (ZYRTEC) 10 mg tablet Take 10 mg by mouth once daily. glimepiride (AMARYL) 4 mg tablet TAKE ONE [...] WITH VITAMIN D3 ORAL) Take by mouth. No current facility-administered medications for this visit. - Chemotherapy education was provided by a pharmacist YES Thank you for allowing us to participate in the care of this patient. I spent 15 time (15 minute increments) with the patient Blanca Hernandez [facility] Referring Provider: Gisella GRANT [[id number]] Allergies As of Date: 03/03/2025 (No Known Allergies) Date Reviewed: 02/24/2025 Reviewed by: Rebecca Singer, YONATAN - Fully Assessed Primary Visit Diagnosis:Encounter for education [Z71.9] Prescriptions as of 03/03/2025 - naproxen sodium (ALEVE) 220 mg tablet Take 220 mg by mouth two times a day with meals. - aspirin, enteric coated (ASPIRIN, ENTERIC COATED) 81 mg EC tablet Take 81 mg by mouth once daily. - atorvastatin (LIPITOR) 40 mg tablet Take 40 mg by mouth daily at bedtime. - cetirizine (ZYRTEC) 10 mg tablet Take 10 mg by mouth once daily. - glimepiride (AMARYL) 4 mg tablet TAKE ONE TABLET BY MOUTH ONCE DAILY WITH BREAKFAST OR THE FIRST MAIN MEAL OF THE DAY - magnesium oxide (MAG-OX) 400 mg (241.3 mg magnesium) tablet Take 1 tablet by mouth once daily. - metFORMIN (GLUCOPHAGE) 500 mg tablet take one tablet by mouth twice a day for 30 days - metoprolol tartrate, short acting, (LOPRESSOR) 25 mg tablet Take 12.5 mg by mouth two times a day. - potassium chloride ER (KLOR-CON) 20 mEq tablet Take 20 mEq by mouth daily with food. - JANUVIA 100 mg tablet 1 tablet Orally Once a day for 30 days - vit A/vit C/vit E/zinc/copper (PRESERVISION AREDS ORAL) Take 2 tablets by mouth once daily. - calcium carbonate/vitamin D3 (CALCIUM WITH VITAMIN D3 ORAL) Take 2 tablets by mouth once daily. Problem List As Of Date 03/03/2025 Noted Resolved Head and neck cancer (HCC) [C76.0] 02/01/2025 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) [C3*02/01/2025 Encounter Status:Closed by BLANCA HERNANDEZ on 03/03/25 [facility] Nurse Visit (ROQUE) CHAD MCKEON ([id number]) 1940 M Date Time Provider Department 03/03/25 8:45 AM NURSE MANA NEVAREZ During your visit today, we recorded the following information about you: Referring Provider: Gisella GRANT [[id number]] Allergies As of Date: 03/03/2025 (No Known Allergies) Date Reviewed: 03/03/2025 Reviewed by: Sandeep Flynn APRN.DIRECTOR CENTER - Fully Assessed Primary Visit Diagnosis:Head and neck cancer (HCC) [C76.0] Prescriptions as of 03/04/2025 - naproxen sodium (ALEVE) 220 mg tablet Take 220 mg by mouth two times a day with meals. - ondansetron (ZOFRAN) 8 mg tablet Take 1 tablet by mouth every 8 hours as needed for nausea/vomiting. - prochlorperazine (COMPAZINE) 10 mg tablet Take 1 tablet by mouth every 6 hours as needed. - aspirin, enteric coated (ASPIRIN, ENTERIC COATED) 81 mg EC tablet Take 81 mg by mouth once daily. - atorvastatin (LIPITOR) 40 mg tablet Take 40 mg by mouth daily at bedtime. - cetirizine (ZYRTEC) 10 mg tablet Take 10 mg by mouth once daily. - glimepiride (AMARYL) 4 mg tablet TAKE ONE TABLET BY MOUTH ONCE DAILY WITH BREAKFAST OR THE FIRST MAIN MEAL OF THE DAY - magnesium oxide (MAG-OX) 400 mg (241.3 mg magnesium) tablet Take 1 tablet by mouth once daily. - metFORMIN (GLUCOPHAGE) 500 mg tablet take one tablet by mouth twice a day for 30 days - metoprolol tartrate, short acting, (LOPRESSOR) 25 mg tablet Take 12.5 mg by mouth two times a day. - potassium chloride ER (KLOR-CON) 20 mEq tablet Take 20 mEq by mouth daily with food. - JANUVIA 100 mg tablet 1 tablet Orally Once a day for 30 days - vit A/vit C/vit E/zinc/copper (PRESERVISION AREDS ORAL) Take 2 tablets by mouth once daily. - calcium carbonate/vitamin D3 (CALCIUM WITH VITAMIN D3 ORAL) Take 2 tablets by mouth once daily. Problem List As Of Date 03/03/2025 Noted Resolved Head and neck cancer (HCC) [C76.0] 02/01/2025 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) [C3*02/01/2025 Encounter Status:Closed by NADINE POWELL on 03/04/25 [facility] (MICHAELTSA ) CHAD MCKEON ([id number]) 1940 M Date Time Provider Department 03/03/25 9:30 AM Gisella GRANT During your visit today, we recorded the following information about you: Gisella Grant MD 03/03/2025 10:52 AM Signed sim Referring Provider: Gisella GRANT [[id number]] Allergies As of Date: 03/03/2025 (No Known Allergies) Date Reviewed: 02/24/2025 Reviewed by: Rebecca Singer RN - Fully Assessed Reason for Visit: Simulation Request Form [6065] Primary Visit Diagnosis:Head and neck cancer (HCC) [C76.0] Order(s):RADIATION TREATMENT PER RADIATION ONCOLOGIST PLAN [3904163] Order #: [id number]: 1 PT ED CANCER [5131425] Order #: [id number]: 1 CT SIM PLANNING RADIATION ONCOLOGY [3716084] Order #: [id number] CONTRAST MEDIA [5366599] Order #: [id number] INSERT IV ([place]) [7812967] Order #: [id number]: 1 IV DISCONTINUE [9148903] Order #: [id number]: 1 Prescriptions as of 03/03/2025 - aspirin, enteric coated (ASPIRIN, ENTERIC COATED) 81 mg EC tablet Take 81 mg by mouth. - atorvastatin (LIPITOR) 40 mg tablet Take 40 mg by mouth daily at bedtime. - cetirizine (ZYRTEC) 10 mg tablet Take 10 mg by mouth once daily. - glimepiride (AMARYL) 4 mg tablet TAKE ONE TABLET BY MOUTH ONCE DAILY WITH BREAKFAST OR THE FIRST MAIN MEAL OF THE DAY - magnesium oxide (MAG-OX) 400 mg (241.3 mg magnesium) tablet Take 1 tablet by mouth. - metFORMIN (GLUCOPHAGE) 500 mg tablet take one tablet by mouth twice a day for 30 days - metoprolol tartrate, short acting, (LOPRESSOR) 25 mg tablet Take 12.5 mg by mouth two times a day. - potassium chloride ER (KLOR-CON) 20 mEq tablet Take 20 mEq by mouth daily with food. - JANUVIA 100 mg tablet 1 tablet Orally Once a day for 30 days - vit A/vit C/vit E/zinc/copper (PRESERVISION AREDS ORAL) Take by mouth. - calcium carbonate/vitamin D3 (CALCIUM WITH VITAMIN D3 ORAL) Take by mouth. 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 Date of Diagnosis: January 02, 2025 Primary Site: Larynx Glottic Laterality: Left HPI: Patient returns after bronchoscopy with EBUS. Biopsy of suspicious paratracheal without evidence of malignancy. Patient denies any new problems or changes. He is here for simulation today. PET scans 01/28/2025 demonstrated: IMPRESSION PRIMARY DISEASE [...] Take 10 mg by mouth once daily. glimepiride (AMARYL) 4 mg tablet TAKE ONE [...] no abdominal pain : urination is normal MU (more content not included)... Normal [facility] ANES POSTPROC EVALon 025 ANES POSTPROC EVAL HNO ID: [id number] Author: DEMI COULTER MD Service: ? Author Type: Anesthesiologist Type: Anesthesia Postprocedure Evaluation Filed: 02/24/2025 16:19 Note Text: POST ANESTHESIA EVALUATION NOTE : 1940 Procedure Summary Date: 02/24/25 Room / Location: GI02 / GI Anesthesia Start: 1314 Anesthesia Stop: 141 Procedure: BRONCHOSCOPY,RIGID/FLEX IBLE W/ FLUORO,W/ENDOBRONCHIAL ULTRASOUND (EBUS) GUIDED TRANSTRACHEAL/ TRANSBRONCHIAL ASPIRATION/BIOPSY,1 OR 2 MEDIASTINAL AND/OR HILAR LYMPH NODE STATIONS/STRUCTURES (Bronchus) Diagnosis: Adenopathy (Adenopathy [R59.9]) Surgeons: Gonzalo Ricks MD Responsible Provider: Demi Coulter MD Anesthesia Type: general ASA Status: 3 Anesthesia Type: general Airway Type: LMA Last Vitals Vitals Value Taken Time BP 137/76 02/24/25 1448 Temp 36 ?C (96.8 ?F) 02/24/25 1444 Pulse 66 02/24/25 1444 Resp 16 02/24/25 1444 SpO2 96 % 02/24/25 1448 Vitals shown include unfiled device data. Post Anesthesia Patient Status Patient Evaluation: PACU. PACU/ICU Patient Condition: stable. Anticipated Disposition: phase 2 then home. Neurological Status: aware and responsive. Pulmonary Status: breathing comfortably on supplemental oxygen Airway Control: returned to baseline unsupported. Cardiovascular Status: stable. Pain Management: clinically adequate Postoperative Hydration: acceptable. Intraoperative Events: no significant anesthesia events Post Operative Nausea/Vomiting Status: no significant post operative nausea or vomiting Recommendation: continue current plan of care. Anesthesia Observations No Documentation SIGNATURE: Demi Coulter MD PATIENT NAME: Chad Mckeon DATE: February 24, 2025 TIME: 4:19 PM CSN: [id number] [facility] ANES PRE-OPon 02-24-2025 ANES PRE-OP HNO ID: [id number] Author: DEMI COULTER MD Service: ? Author Type: Anesthesiologist Type: Anesthesia Preprocedure Evaluation Filed: 02/24/2025 12:43 Note Text: ANESTHESIOLOGY DAY OF SURGERY NOTE : 1940 Procedure Information Date/Time: 02/24/25 1300 Procedure: BRONCHOSCOPY,RIGID/FLEX IBLE W/ FLUORO,W/ENDOBRONCHIAL ULTRASOUND (EBUS) GUIDED TRANSTRACHEAL/ TRANSBRONCHIAL ASPIRATION/BIOPSY,1 OR 2 MEDIASTINAL AND/OR HILAR LYMPH NODE STATIONS/STRUCTURES (Bronchus) Location: [facility]: Gonzalo Ricks MD Estimated body mass index is 30.41 kg/m? as calculated from the following: Height as of 02/19/25: 172.7 cm (5' 8 ). Weight as of 02/19/25: 90.7 kg (200 lb). Most recent hematocrit and potassium results: Hematocrit 42.6 01/30/2025 Potassium 4.4 01/30/2025 Relevant Problems No relevant active problems I - PHYSICAL EVALUATION AIRWAY Patient intubated: No. Tracheostomy tube not present Mallampati: I. TM distance: >3 FB. Neck ROM: full ROM without neurological symptoms. Mouth opening: adequate. Short neck: no. Thick neck: no DENTAL Dental findings: edentulous. Additional exam findings: no II - ANESTHESIA PLAN ASA Score: 3 Anesthetic Plan: general Airway type: LMA The patient is not a current smoker. NPO Status: adequate Beta Casie Administration of chronic beta casie medication not planned. Reasons for not administering beta casie perioperatively: other Monitoring Plan Monitoring plan: standard ASA. Post Procedure Analgesic Plan Postoperative analgesic plan: parenteral or oral opioids. Informed Consent Anesthetic risks, benefits, alternatives, personnel and consent discussed: yes. Patient / Responsible Alliance Party agrees to proceed: yes Patient / Surrogate agrees to blood products: Yes DNR status not reviewed with patient and/or family prior to surgery. Significant changes in the patient condition since the History and Physical, not otherwise documented in primary service progress note: no. Potential Anesthesia issues that may suggest increased risk of complications or contraindication to planned procedure: none. Vitals Value Taken Time BP 142/92 02/24/25 1240 Pulse 84 02/24/25 1240 Resp 19 02/24/25 1240 Temp 36 ?C (96.8 ?F) 02/24/25 1240 SpO2 97 % 02/24/25 1240 No current facility-administered medications on file as of 02/24/2025. Outpatient Medications as of 02/24/2025 Medication Sig aspirin, enteric coated (ASPIRIN, ENTERIC COATED) 81 mg EC tablet Take 81 mg by mouth. atorvastatin (LIPITOR) 40 mg tablet Take 40 mg by mouth daily at bedtime. cetirizine (ZYRTEC) 10 mg tablet Take 10 mg by mouth once daily. glimepiride (AMARYL) 4 mg tablet TAKE ONE [...] WITH VITAMIN D3 ORAL) Take by mouth. I have interviewed and examined the patient. I have reviewed the medical record and/or the pre-anesthesia evaluation, pertinent labs, and test results. This contains updated information obtained within 48 hours of Surgery/Procedure. SIGNATURE: Demi Coulter MD PATIENT NAME: Chad Mckeon DATE: February 24, 2025 TIME: 12:43 PM CSN: [id number] [facility] CYTOLOGY NON-GYNon ADEQUACY INTERPRETATION [facility] Comment on above: Order Comment: Speci men Type: SPECIMEN OBTAINED BY ASPIRATIONOrdering Facility: [facility] Address: [address] [place] [address] Result Comment: A: # 1 Lymphoid sample #2 Non-diagnostic B: #1, 5 Lymphoid sample #2, 3, 4, 6 Non-diagnostic Dr. Lamar / Luis Pike Each letter in the above intra-procedural assessment refers to a unique site. The specific site is indicated in the final diagnosis portion of the report. Each number in this assessment references a discrete evaluation episode. Intra-procedural assessment performed at [facility], [address] [place] [address] Performed By: #### C YTONON ####ALPHA LABORATORYCLIA [id number] [address] AP DISCLAIMER Normal [facility] Comment on above: Order Comment: Speci men Type: SPECIMEN OBTAINED BY ASPIRATIONOrdering Facility: [facility] Address: [address] [place] [address] Result Comment: Monica berumen Developed Test (LDT) Disclaimer: Performance characteristics of immunohistochemical, immunofluorescent, and chromogenic in-situ hybridization tests have been determined by the performing laboratory within [facility] Pathology and Laboratory Medicine Department ([facility], [facility], [facility], [facility], [facility], [facility], or [facility]) in a manner consistent with CLIA requirements. One or more of these tests may not have been cleared or approved by the FDA. [facility] is regulated under CLIA as qualified to perform high-complexity testing. These tests are used for clinical purposes. These should not be regarded as investigational or for research. Positive and negative controls stain appropriately. Performed By: #### C YTONON ####ALPHA LABORATORYCLIA [id number] [place] [address] [place] CASE REPORT Normal [facility] Comment on above: Order Comment: Speci men Type: SPECIMEN OBTAINED BY ASPIRATIONOrdering Facility: [facility] Address: [address] [place] [address] Result Comment: [facility] Cytology Report Case: [id number] Authorizing Provider: Gonzalo Ricks MD Collected: 02/24/2025 01:04 PM Ordering Location: [facility] Received: 02/25/2025 06:46 AM Endoscopy - ENDO Pathologist: Saira Lamar MD Specimens: A) - Lymph Node, Transbronchial, 11RS B) - Lymph Node, Transbronchial, 4R Performed By: #### C YTONON ####ALPHA LABORATORYCLIA [id number] [address] CLINICAL HISTORY Normal [facility] Comment on above: Order Comment: Speci men Type: SPECIMEN OBTAINED BY ASPIRATIONOrdering Facility: [facility] Address: [address] [place] [address] Result Comment: Pre- op diagnosis: Adenopathy [R59.9] Lymphadenopathy Performed By: #### C YTONON ####ALPHA LABORATORYCLIA [id number] [address] FINAL DIAGNOSIS Normal [facility] Comment on above: Order Comment: Speci men Type: SPECIMEN OBTAINED BY ASPIRATIONOrdering Facility: [facility] Address: [address] [place] [address] Result Comment: A - Lymph Node, Transbronchial, FNA - 11RS Negative for malignant cells. Benign lymphoid sample. B - Lymph Node, Transbronchial, FNA - 4R Negative for malignant cells. Benign lymphoid sample. The following cell blocks were associated with this case: A1 Cell Block, Alcohol Fixed B1 Cell Block, Alcohol Fixed at 1513 EDT Performed By: #### C YTONON ####ALPHA LABORATORYCLIA [id number] [address] FINAL PERFORMING LAB Normal [facility] Comment on above: Order Comment: Speci men Type: SPECIMEN OBTAINED BY ASPIRATIONOrdering Facility: [facility] Address: [address] [place] [address] Result Comment: Tech nical component, special services agent screening performed at: [facility], [address] [place] [address] CLIA: [id number] Diagnostic interpretation performed at: [facility], [address] [place] [address] CLIA# [id number] Heat Treating Bluer: Mane Espana MD Performed By: #### C YTONON ####ALPHA LABORATORYCLIA [id number] [address] GROSS DESCRIPTION Normal [facility] Comment on above: Order Comment: Speci men Type: SPECIMEN OBTAINED BY ASPIRATIONOrdering Facility: [facility] Address: [address] [place] [address] Result Comment: A. L ymph Node, Transbronchial 30 cc clear colorless CytoLyt with scant particles. ThinPrep and Cell Block prepared and 4 smears (2 air dried and 2 fixed). B. Lymph Node, Transbronchial 30 cc clear colorless CytoLyt with scant particles. ThinPrep and Cell Block prepared and 12 smears (6 air dried and 6 fixed). Performed By: #### C YTONON ####ALPHA LABORATORYCLIA [id number] [address] ORDER COMMENT [facility] Comment on above: Order Comment: Speci men Type: SPECIMEN OBTAINED BY ASPIRATIONOrdering Facility: [facility] Address: [address] [place] [address] Result Comment: Pre- op diagnosis: Adenopathy [R59.9] Performed By: #### C YTONON ####ALPHA LABORATORYCLIA [id number] [address] NURSING PROGon 02-24-2025 NURSING PROG HNO ID: [id number] Author: PETE GOVEA RN Service: Pulmonary Disease Author Type: Registered Nurse Type: Nursing Progress Note Filed: 02/25/2025 10:23 Note Text: Routine Post Bronchoscopy Phone Call Call placed to assess for adverse effects post bronchoscopy on 02/[address] Ricks. The following symptoms were addressed: Sudden trouble breathing? denies Shortness of breath upon ambulation? denies Coughing up bright red blood? denies If you have further questions or concerns, please call [phone]. If you experience any shortness of breath or coughing up a tablespoon of bright red blood, please go to the nearest ED. YONATAN Swartz Pulmonary Educational Assistant [facility] NURSING PROGon 02-23-2025 NURSING PROG HNO ID: [id number] Author: PETE GOVEA, RN Service: Pulmonary Disease Author Type: Registered Nurse Type: Nursing Progress Note Filed: 02/23/2025 13:28 Note Text: AMBULATORY PATIENT EDUCATION NOTE TOPIC: pre-procedure instructions READINESS TO LEARN COGNITIVE ABILITY: Alert and oriented MOTIVATION TO LEARN: Interested FAMILY SUPPORT: High - Very involved in pt care INSTRUCTION PROVIDED TO: Patient PATIENT LEARNS BEST BY: Individual Instruction Verbal Instruction FACTORS AFFECTING LEARNING: None PHYSICAL LIMITATIONS AFFECTING LEARNING: None LEARNING RESPONSE DIAGNOSIS: PET avid mediastinal nodes METHOD OF INSTRUCTION: Individual instruction Verbal instruction PATIENT / FAMILY RESPONSE: Verbalizes understanding of: PRE-PROCEDURE INSTRUCTIONS-Correct action to take to follow pre-procedure instructions FOLLOW-UP PLAN: Complete - No need for follow-up SUPPLEMENTAL MATERIAL: None REFERRAL (RECOMMENDATION): None Electronically Signed By: Pete Govea RN In Department: [facility] ENDOSCOPY - ENDO Time spent on patient education: 07 minutes. [facility] CNOVon 02-19-2025 CNOV Office Visit ([facility] ) CHAD MCKEON ([id number]) 1940 M Date Time Provider Department 02/19/25 10:30 AM GONZALO RICKS [facility] During your visit today, we recorded the following information about you: Pulse Blood pressure Weight Height 73/minute 134/83 90.7 kg 1.727 m Gonzalo Ricks MD 02/19/2025 11:39 AM Signed Interventional Pulmonary Consultation Date of Service: February 19, 2025 Patient: Chad Mckeon Medical Record: [id number] Primary Care Physician: Fausto Juarez MD Referring Provider: Hubert Grant MD History of Present Illness Chad Mckeon is a 84 year old male with a past history of CAD s/p CABG, vocal cord cancer, HTN, DM who was sent by Dr. Grant for evaluation and management of mediastinal adenopathy. My findings and recommendations will be communicated to the referring doctor by way of shared electronic medical record (or US mail). Patient recently developed hoarseness, work up revealed left cord tumor (recent biopsy a few weeks ago). EOD work up included PET, which demonstrated uptake in the right paratracheal node concerning for metastasis. Patient was a long time smoker, quit 20 years ago. CABG 2022 x3V. No residual heart failure. No history palpitations, no c/o chest pain. No leg edema. No cough, fevers, phlegm, dyspnea, DAWN. 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 Social Historyy Social History Tobacco Use Smoking status: Former Types: Cigarettes Start date: 1953 Smokeless tobacco: Never Substance Use Topics Alcohol use: Not Currently Drug use: Not Currently Current Medications Current Outpatient Medications Medication Instructions aspirin, enteric coated (ASPIRIN, ENTERIC COATED) 81 mg atorvastatin (LIPITOR) 40 mg, AT BEDTIME calcium carbonate/vitamin D3 (CALCIUM WITH VITAMIN D3 ORAL) Take by mouth. cetirizine (ZYRTEC) 10 mg, DAILY glimepiride (AMARYL) 4 mg tablet TAKE ONE TABLET BY MOUTH ONCE DAILY WITH BREAKFAST OR THE FIRST MAIN MEAL OF THE DAY JANUVIA 100 mg tablet 1 tablet Orally Once a day for 30 days magnesium oxide (MAG-OX) 400 mg (241.3 mg magnesium) tablet 1 tablet metFORMIN (GLUCOPHAGE) 500 mg tablet take one tablet by mouth twice a day for 30 days metoprolol tartrate (short acting) (LOPRESSOR) 12.5 mg, 2 TIMES DAILY potassium chloride ER (KLOR-CON) 20 mEq tablet 20 mEq, DAILY WITH FOOD vit A/vit C/vit E/zinc/copper (PRESERVISION AREDS ORAL) Take by mouth. Imaging Please see below Physical Exam BP 134/83 Pulse 73 Ht 5' 8 (1.73m) Wt 200 lb (90.7kg) SpO2 96% BMI 30.42 kg/(m2). GENERAL APPEARANCE: Patient in no acute distress. SKIN: No rashes or lesions. EYES: PERRLA, EOMI,, conjunctivae clear. OROPHARYNX: Lips, mucosa, and tongue normal. Teeth and gums normal. Oropharynx normal. NECK: Supple, no lymphadenopathy, no JVD. BACK: No CVA tenderness, no spinal tenderness LUNGS: Normal breath sounds, clear to auscultation, no wheezes, or crackles. HEART: Normal PMI, Regular rate/rhythm, normal heart sounds, and no murmurs. ABDOMEN: Soft, non tender, no palpable masses, normal bowel sounds, no abdominal bruits, No hepatosplenomegaly. EXTREMITIES: No edema or tenderness NEURO: Awake, alert and oriented x3, no involuntary motions. Assessment AND Plan Mediastinal adenopathy. I personally reviewed the PET-CT scan. There is intense uptake in a 4R node, which is concerning for metastasis from his H/N cancer. Will need an EBUS to further investigate. 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 Grant History CABG DM2. Controlled with meds, followed by PCP HTN. Stable, managed by PCP Gonzalo Ricks MD Date: February 19, 2025 Time: 10:35 AM I spent a total of 50 minutes on the date of the service which included preparing to see the patient, [id number] patient care, completing clinical documentation, obtaining and/or reviewing separately obtained history, performing a medically appropriate examination, counseling and educating the patient/family/caregive r, ordering medications, tests, or procedures, communicating with other HCPs (not separately reported), independently interpreting results (not separately reported), communicating results to the patient/family/caregive r, and care coordination (not separately reported). Allergies As of Date: 02/19/2025 (No Known Allergies) Date Reviewed: 02/19/2025 Reviewed by: Dank Hinton MA - Fully Assessed Primary Visit Diagnosis:Adenopathy [R59.9] Other Visit Diagnoses:Head and neck cancer (HCC) [C76.0] Type 2 di (more content not included)... Normal [facility] HISTORY PHYSICALon HISTORY PHYSICAL HNO ID: [id number] Author: GONZALO RICKS MD Service: ? Author Type: Physician Type: H&P Filed: 02/19/2025 11:39 Note Text: Interventional Pulmonary Consultation Date of Service: February 19, 2025 Patient: Chad Mckeon Medical Record: [id number] Primary Care Physician: Fausto Juarez MD Referring Provider: Hubert Grant MD History of Present Illness Chad Mckeon is a 84 year old male with a past history of CAD s/p CABG, vocal cord cancer, HTN, DM who was sent by Dr. Grant for evaluation and management of mediastinal adenopathy. My findings and recommendations will be communicated to the referring doctor by way of shared electronic medical record (or US mail). Patient recently developed hoarseness, work up revealed left cord tumor (recent biopsy a few weeks ago). EOD work up included PET, which demonstrated uptake in the right paratracheal node concerning for metastasis. Patient was a long time smoker, quit 20 years ago. CABG 2022 x3V. No residual heart failure. No history palpitations, no c/o chest pain. No leg edema. No cough, fevers, phlegm, dyspnea, DAWN. 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 Social Historyy Social History Tobacco Use Smoking status: Former Types: Cigarettes Start date: 1953 Smokeless tobacco: Never Substance Use Topics Alcohol use: Not Currently Drug use: Not Currently Current Medications Current Outpatient Medications Medication Instructions aspirin, enteric coated (ASPIRIN, ENTERIC COATED) 81 mg atorvastatin (LIPITOR) 40 mg, AT BEDTIME calcium carbonate/vitamin D3 (CALCIUM WITH VITAMIN D3 ORAL) Take by mouth. cetirizine (ZYRTEC) 10 mg, DAILY glimepiride (AMARYL) 4 mg tablet TAKE ONE TABLET BY MOUTH ONCE DAILY WITH BREAKFAST OR THE FIRST MAIN MEAL OF THE DAY JANUVIA 100 mg tablet 1 tablet Orally Once a day for 30 days magnesium oxide (MAG-OX) 400 mg (241.3 mg magnesium) tablet 1 tablet metFORMIN (GLUCOPHAGE) 500 mg tablet take one tablet by mouth twice a day for 30 days metoprolol tartrate (short acting) (LOPRESSOR) 12.5 mg, 2 TIMES DAILY potassium chloride ER (KLOR-CON) 20 mEq tablet 20 mEq, DAILY WITH FOOD vit A/vit C/vit E/zinc/copper (PRESERVISION AREDS ORAL) Take by mouth. Imaging Please see below Physical Exam BP 134/83 Pulse 73 Ht 5' 8 (1.73m) Wt 200 lb (90.7kg) SpO2 96% BMI 30.42 kg/(m2). GENERAL APPEARANCE: Patient in no acute distress. SKIN: No rashes or lesions. EYES: PERRLA, EOMI,, conjunctivae clear. OROPHARYNX: Lips, mucosa, and tongue normal. Teeth and gums normal. Oropharynx normal. NECK: Supple, no lymphadenopathy, no JVD. BACK: No CVA tenderness, no spinal tenderness LUNGS: Normal breath sounds, clear to auscultation, no wheezes, or crackles. HEART: Normal PMI, Regular rate/rhythm, normal heart sounds, and no murmurs. ABDOMEN: Soft, non tender, no palpable masses, normal bowel sounds, no abdominal bruits, No hepatosplenomegaly. EXTREMITIES: No edema or tenderness NEURO: Awake, alert and oriented x3, no involuntary motions. Assessment AND Plan Mediastinal adenopathy. I personally reviewed the PET-CT scan. There is intense uptake in a 4R node, which is concerning for metastasis from his H/N cancer. Will need an EBUS to further investigate. 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 Grant History CABG DM2. Controlled with meds, followed by PCP HTN. Stable, managed by PCP Gonzalo Ricks MD Date: February 19, 2025 Time: 10:35 AM I spent a total of 50 minutes on the date of the service which included preparing to see the patient, [id number] patient care, completing clinical documentation, obtaining and/or reviewing separately obtained history, performing a medically appropriate examination, counseling and educating the patient/family/caregive r, ordering medications, tests, or procedures, communicating with other HCPs (not separately reported), independently interpreting results (not separately reported), communicating results to the patient/family/caregive r, and care coordination (not separately reported). [facility] 02-17-2025 [facility] Telephone ([facility]) MIKECHAD MAURO ([id number]) 1940 M Date Time Provider Department 02/17/25 GONZALO RICKS During your visit today, we recorded the following information about you: Farhad Ovalles LPN 02/17/2025 10:00 AM Signed Bronch scheduled for 02/24/25. Echo report received from [place] [facility]. Please review under Cardiac Tab. Thank you. Allergies As of Date: 02/17/2025 (No Known Allergies) Date Reviewed: 02/09/2025 Reviewed by: Shirley Qiu RD - Fully Assessed Reason for Visit: to [Other] Prescriptions as of 02/23/2025 - aspirin, enteric coated (ASPIRIN, ENTERIC COATED) 81 mg EC tablet Take 81 mg by mouth. - atorvastatin (LIPITOR) 40 mg tablet Take 40 mg by mouth daily at bedtime. - cetirizine (ZYRTEC) 10 mg tablet Take 10 mg by mouth once daily. - glimepiride (AMARYL) 4 mg tablet TAKE ONE TABLET BY MOUTH ONCE DAILY WITH BREAKFAST OR THE FIRST MAIN MEAL OF THE DAY - magnesium oxide (MAG-OX) 400 mg (241.3 mg magnesium) tablet Take 1 tablet by mouth. - metFORMIN (GLUCOPHAGE) 500 mg tablet take one tablet by mouth twice a day for 30 days - metoprolol tartrate, short acting, (LOPRESSOR) 25 mg tablet Take 12.5 mg by mouth two times a day. - potassium chloride ER (KLOR-CON) 20 mEq tablet Take 20 mEq by mouth daily with food. - JANUVIA 100 mg tablet 1 tablet Orally Once a day for 30 days - vit A/vit C/vit E/zinc/copper (PRESERVISION AREDS ORAL) Take by mouth. - calcium carbonate/vitamin D3 (CALCIUM WITH VITAMIN D3 ORAL) Take by mouth. 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 Patient verbalized understanding. Pete Govea RN Allergies As of Date: 02/13/2025 (No Known Allergies) Date Reviewed: 02/09/2025 Reviewed by: Shirley Qiu RD - Fully Assessed Prescriptions as of 02/13/2025 - ondansetron (ZOFRAN) 8 mg tablet Take 1 tablet by mouth every 8 hours as needed for nausea/vomiting. - prochlorperazine (COMPAZINE) 10 mg tablet Take 1 tablet by mouth every 6 hours as needed. - aspirin, enteric coated (ASPIRIN, ENTERIC COATED) 81 mg EC tablet Take 81 mg by mouth. - atorvastatin (LIPITOR) 40 mg tablet Take 40 mg by mouth daily at bedtime. - cetirizine (ZYRTEC) 10 mg tablet Take 10 mg by mouth once daily. - clopidogrel (PLAVIX) 75 mg tablet take 1 tablet (75 mg) by mouth in the morning. - glimepiride (AMARYL) 4 mg tablet TAKE ONE TABLET BY MOUTH ONCE DAILY WITH BREAKFAST OR THE FIRST MAIN MEAL OF THE DAY - magnesium oxide (MAG-OX) 400 mg (241.3 mg magnesium) tablet Take 1 tablet by mouth. - metFORMIN (GLUCOPHAGE) 500 mg tablet take one tablet by mouth twice a day for 30 days - metoprolol tartrate, short acting, (LOPRESSOR) 25 mg tablet Take 12.5 mg by mouth two times a day. - potassium chloride ER (KLOR-CON) 20 mEq tablet Take 20 mEq by mouth daily with food. - JANUVIA 100 mg tablet 1 tablet Orally Once a day for 30 days - vit A/vit C/vit E/zinc/copper (PRESERVISION AREDS ORAL) Take by mouth. - calcium carbonate/vitamin D3 (CALCIUM WITH VITAMIN D3 ORAL) Take by mouth. 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) [C3*02/01/2025 Encounter Status:Closed by PETE GOVEA on 02/13/25 [facility] echo transthoracicon [facility] echo transthoracic [facility] [place] [place] [address] Echocardiogram Signed Patient: Chad Mckeon MR#: [id number] : 1940 Acct:[id number] Age/Sex: 84 / M ADM Date: 02/12/25 Loc: Room: Type: [facility] Attending Dr: Fausto Juarez MD Ordering Provider: Fausto Juarez MD Date of Service: 02/12/25/ [facility] echo transthoracic: CP Copies to: MD Chio Morrow MD Weight: 199 lb Performed By: Vitaliy De Jesus RDCS, T BSA: 2.1 m2 HR: 77 Reason For Study: CP Interpretation Summary Ejection Fraction = 60-65%. Mild concentric left ventricular hypertrophy. A variety of Doppler measurements indicate impaired left ventricular relaxation, which is associated with grade I/IV or mild diastolic dysfunction. Trivial valvular aortic stenosis. Mild aortic regurgitation. There is trace tricuspid regurgitation. Mild aortic root dilatation. The aortic root is 4.1 cm There is no comparison study available. Procedure/Quality: A two-dimensional transthoracic echocardiogram with color flow and Doppler was performed. The study was technically good in quality. Left Ventricle: The left ventricular size is normal. Mild concentric left ventricular hypertrophy. Ejection Fraction = 60-65%. A variety of Doppler measurements indicate impaired left ventricular relaxation, which is associated with grade I/IV or mild diastolic dysfunction. The left ventricular wall motion is normal. Left Atrium: The left atrium appears normal in size. The atrial septum appears normal. Right Atrium: The right atrium appears normal in size. Right Ventricle: The right ventricular size, thickness and function are normal. Aortic Valve: The aortic valve is mildly calcified. Trivial valvular aortic stenosis. Mild aortic regurgitation. Mitral Valve: The mitral valve is normal in structure and function. There is no mitral regurgitation noted. Tricuspid Valve: The tricuspid valve is normal in structure and function. There is trace tricuspid regurgitation. Pulmonic Valve: The pulmonic valve is normal in structure and function. Arteries: Mild aortic root dilatation. The aortic root is 4.1 cm. Pericardium/Pleura: No pericardial effusion seen. There is no pleural effusion. IVC/Hepatic Veins: The inferior vena cava is normal in size, with a normal collapsibility index. Measurements with Normals IVSd: 1.2 cm (0.7-1.1 cm)LVIDd: 3.9 cm(3.7-5.4 cm) LVPWd: 1.2 cm (0.7-1.1 cm)LVIDs: 2.4 cm(2.3-3.6 cm) Ao root diam: 4.1 cm (2.0-3.6 cm) asc Aorta Diam: 3.8 cm(2.1-3.4cm) Doppler with Normals RVSP(TR): 17.1 mmHg (18-35mmHg) LV V1 max: 101.0 cm/sec (0.7-1.7m/s)MV E max reza: 56.3 cm/sec(0.8-1.3m/s) MV A max reza: 94.1 cm/sec(0.0-0.0m/s) MV E/A: 0.60 (<1.5) MMode/2D Measurements Calculations TAPSE: 1.8 cm FS: 38.5 % Ao root area: LVOT diam: 2.1 cm RV S Reza: EDV(Teich): 65.9 ml 13.2 cm2 LVOT area: 3.5 cm2 13.3 cm/sec ESV(Teich): 20.2 ml EF(Teich): 69.4 % __ LVLd ap4: 7.3 cm SV(MOD-sp4): 36.6 ml LAV(MOD-sp4): LA A2 area: EDV(MOD-sp4): 28.1 ml 16.1 cm2 62.6 ml LAV(MOD-sp2): LA A4 area: LVLs ap4: 6.5 cm 40.3 ml ESV(MOD-sp4): 13.7 cm2 26.0 ml LA length (vol): EF(MOD-sp4): 5.3 cm 58.5 % LA vol: 35.3 ml LA vol index: 16.8 ml/m2 __ RA Volume: 20.9 mlRA Volume Index: 10.0 ml/m2 Doppler Measurements Calculations MV dec time: MV V2 max: E/E' lat: 7.2 Ao V2 max: 0.20 sec 111.0 cm/sec E/E' med: 7.8 167.0 cm/sec MV max P.9 mmHg Ao max PG: MV V2 mean: 11.2 mmHg 57.0 cm/sec Ao mean PG: MV mean P.0 mmHg 2.0 mmHg Ao V2 mean: MV V2 VTI: 28.0 cm 115.0 cm/sec Ao V2 VTI: 32.9 cm MVA(VTI): 2.3 cm2 JENNIFER(I,D): 1.9 cm2 JENNIFER(V,D): 2.1 cm2 __ LV V1 max PG: TV max PG: TR max reza: 4.1 mmHg 14.0 mmHg 188.0 cm/sec LV V1 mean PG: TR max P.0 mmHg 14.1 mmHg LV V1 mean: RAP systole: 70.3 cm/sec 3.0 mmHg LV V1 VTI: 18.4 cm Transcribed By: SCV Performed At: 02/12/25 1500 Signed By: Chio Mendes MD 02/12/25 6044 Normal [facility] Yvonne 02-10-2025 CNPN Telephone (RADTSA) CHAD MCKEON ([id number]) 1940 M Date Time Provider Department 02/10/25 Gisella GRANT DAVEYA During your visit today, we recorded the following information about you: Sujata Amezcua RN 02/10/2025 7:33 AM Signed Please schedule SIM 1 week post EBUS (Scheduled 02/24) Treating HANDN IV Contrast Need Pre Sim Consent Rad Nurse Visit for IV Start Coordinate chemo ed appt with Audra Thank you YONATAN Abdullahi Courtney, RT(R) 02/10/2025 9:30 AM Signed Sim scheduled for 03/03/25 at 9:30 am PSS please schedule Pre sim consent for 9am Nurse visit for IV start Chemo ed with Audra same day Notify patient of all appointments Arrival of 8:45am Special instructions no hair products Tierney Wilks, RT(R)(T) Jasmine Peter 02/10/2025 9:50 AM Signed Pre Sim, Nurse Visit for IV Start, and Chemo Ed with Audra has all been added to the schedule on 03/03/25 with an arrival of 8:45AM I called and spoke to Chad and he confirmed his appointments and he understood no hair products Jasmine B PSS Allergies As of Date: 02/10/2025 (No Known Allergies) Date Reviewed: 02/09/2025 Reviewed by: Shirley Qiu RD - Fully Assessed Reason for Visit: Future Appointment [256] Cmt: Schedule Simulation Prescriptions as of 02/12/2025 - ondansetron (ZOFRAN) 8 mg tablet Take 1 tablet by mouth every 8 hours as needed for nausea/vomiting. - prochlorperazine (COMPAZINE) 10 mg tablet Take 1 tablet by mouth every 6 hours as needed. - aspirin, enteric coated (ASPIRIN, ENTERIC COATED) 81 mg EC tablet Take 81 mg by mouth. - atorvastatin (LIPITOR) 40 mg tablet Take 40 mg by mouth daily at bedtime. - cetirizine (ZYRTEC) 10 mg tablet Take 10 mg by mouth once daily. - clopidogrel (PLAVIX) 75 mg tablet take 1 tablet (75 mg) by mouth in the morning. - glimepiride (AMARYL) 4 mg tablet TAKE ONE TABLET BY MOUTH ONCE DAILY WITH BREAKFAST OR THE FIRST MAIN MEAL OF THE DAY - magnesium oxide (MAG-OX) 400 mg (241.3 mg magnesium) tablet Take 1 tablet by mouth. - metFORMIN (GLUCOPHAGE) 500 mg tablet take one tablet by mouth twice a day for 30 days - metoprolol tartrate, short acting, (LOPRESSOR) 25 mg tablet Take 12.5 mg by mouth two times a day. - potassium chloride ER (KLOR-CON) 20 mEq tablet Take 20 mEq by mouth daily with food. - JANUVIA 100 mg tablet 1 tablet Orally Once a day for 30 days - vit A/vit C/vit E/zinc/copper (PRESERVISION AREDS ORAL) Take by mouth. - calcium carbonate/vitamin D3 (CALCIUM WITH VITAMIN D3 ORAL) Take by mouth. 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 Social History Tobacco Use Smoking status: (more content not included)... Normal [facility] Yvonne 02-05-2025 DELFIN Telephone (NCCAP) MIKECHAD Karlene ([id number]) 1940 M Date Time Provider Department 02/05/25 Gisella GRANT During your visit today, we recorded the following information about you: Lenora Epstein 02/05/2025 10:51 AM Signed Sent a staff message to Dr. White and Pete Govea for Ebus. Allergies As of Date: 02/05/2025 (No Known Allergies) Date Reviewed: 01/30/2025 Reviewed by: Guera Leblanc MA - Fully Assessed Prescriptions as of 02/05/2025 - ondansetron (ZOFRAN) 8 mg tablet Take 1 tablet by mouth every 8 hours as needed for nausea/vomiting. - prochlorperazine (COMPAZINE) 10 mg tablet Take 1 tablet by mouth every 6 hours as needed. - aspirin, enteric coated (ASPIRIN, ENTERIC COATED) 81 mg EC tablet Take 81 mg by mouth. - atorvastatin (LIPITOR) 40 mg tablet Take 40 mg by mouth daily at bedtime. - cetirizine (ZYRTEC) 10 mg tablet Take 10 mg by mouth once daily. - clopidogrel (PLAVIX) 75 mg tablet take 1 tablet (75 mg) by mouth in the morning. - glimepiride (AMARYL) 4 mg tablet TAKE ONE TABLET BY MOUTH ONCE DAILY WITH BREAKFAST OR THE FIRST MAIN MEAL OF THE DAY - magnesium oxide (MAG-OX) 400 mg (241.3 mg magnesium) tablet Take 1 tablet by mouth. - metFORMIN (GLUCOPHAGE) 500 mg tablet take one tablet by mouth twice a day for 30 days - metoprolol tartrate, short acting, (LOPRESSOR) 25 mg tablet Take 12.5 mg by mouth two times a day. - potassium chloride ER (KLOR-CON) 20 mEq tablet Take 20 mEq by mouth daily with food. - JANUVIA 100 mg tablet 1 tablet Orally Once a day for 30 days - vit A/vit C/vit E/zinc/copper (PRESERVISION AREDS ORAL) Take by mouth. - calcium carbonate/vitamin D3 (CALCIUM WITH VITAMIN D3 ORAL) Take by mouth. 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 Scripts for antiemetics pended. YONATAN Mojica Vivek, MD 02/03/2025 3:32 PM Signed Signed thanks Allergies As of Date: 02/03/2025 (No Known Allergies) Date Reviewed: 01/30/2025 Reviewed by: Guera Leblanc MA - Fully Assessed Reason for Visit: Care Coordination [5038] Cmt: Antiemetics Order(s):ondansetron (ZOFRAN) 8 mg tabletTake 1 tablet by mouth every 8 hours as needed for nausea/vomiting.Disp: 90 tabletRfl: 1 prochlorperazine (COMPAZINE) 10 mg tabletTake 1 tablet by mouth every 6 hours as needed.Disp: 100 tabletRfl: 1 Prescriptions as of 02/03/2025 - ondansetron (ZOFRAN) 8 mg tablet Take 1 tablet by mouth every 8 hours as needed for nausea/vomiting. - prochlorperazine (COMPAZINE) 10 mg tablet Take 1 tablet by mouth every 6 hours as needed. - aspirin, enteric coated (ASPIRIN, ENTERIC COATED) 81 mg EC tablet Take 81 mg by mouth. - atorvastatin (LIPITOR) 40 mg tablet Take 40 mg by mouth daily at bedtime. - cetirizine (ZYRTEC) 10 mg tablet Take 10 mg by mouth once daily. - clopidogrel (PLAVIX) 75 mg tablet take 1 tablet (75 mg) by mouth in the morning. - glimepiride (AMARYL) 4 mg tablet TAKE ONE TABLET BY MOUTH ONCE DAILY WITH BREAKFAST OR THE FIRST MAIN MEAL OF THE DAY - magnesium oxide (MAG-OX) 400 mg (241.3 mg magnesium) tablet Take 1 tablet by mouth. - metFORMIN (GLUCOPHAGE) 500 mg tablet take one tablet by mouth twice a day for 30 days - metoprolol tartrate, short acting, (LOPRESSOR) 25 mg tablet Take 12.5 mg by mouth two times a day. - potassium chloride ER (KLOR-CON) 20 mEq tablet Take 20 mEq by mouth daily with food. - JANUVIA 100 mg tablet 1 tablet Orally Once a day for 30 days - vit A/vit C/vit E/zinc/copper (PRESERVISION AREDS ORAL) Take by mouth. - calcium carbonate/vitamin D3 (CALCIUM WITH VITAMIN D3 ORAL) Take by mouth. 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 PROCHLORPERAZINE MALEATE 10 MG TABLET 100 * 1 02/03/2025 Route: PO Sig: Take 1 tablet by mouth every 6 hours as needed. Encounter Status:Closed by CHANADN BURGOS on 02/03/25 Normal [facility] PET+CT Guidance for localiza tion of tumor of Skull base to mid-thigh-- W 18F-FDG Miranda 01-31-2025 * * *Final Report* * * DATE [...] designed to produce diagnostic CT scan quality. Physiologic/non-patholo gic uptake in some body regions could confound or obscure some pathology. * CT Dose-Length Product (DLP): 327 mGy*cm * CT Dose Reduction Employed: Yes * Blood glucose: 148 mg/dL * Injection site: Right Hand * Injected activity: 10.4 mCi * Uptake Time: 61 minutes * Radiopharmaceutical: F00-Lzgvrqmpooozkzghpa (FDG) COMPARISON: No previous FDG PET/CT available [...] contrast-enhanced MRI, for example to evaluate for characteristic (more content not included)... DIVISION OF RADIOLOGY Provider, [facility] - 01/31/2025 * * *Final Report* * [...] designed to produce diagnostic CT scan quality. Physiologic/non-patholo gic uptake in some body regions could confound or obscure some pathology. * CT Dose-Length Product (DLP): 327 mGy*cm * CT Dose Reduction Employed: Yes * Blood glucose: 148 mg/dL * Injection site: Right Hand * Injected activity: 10.4 mCi * Uptake Time: 61 minutes * Radiopharmaceutical: U55-Lcwyqjwickgmixjurr (FDG) COMPARISON: No previous FDG PET/CT available [...] contrast-enhanced MRI, for example to evaluate for ch (more content not included)... [facility] PET+CT Guidance for localiza tion of tumor of Skull base to mid-thigh-- W 18F-FDG IVOrdered By: Ccf Provider on 01-31-2025 [facility] CBC W Auto Differential pane l (Bld)on 01-30-2025 Basophils (Bld) [#/Vol] 0.04 10*3/uL [facility] Basophils/100 WBC (Bld) 0.5 % [facility] Differential cell count method Nom (Bld) Auto [facility] Eosinophils (Bld) [#/Vol] 0.08 10*3/uL [facility] Eosinophils/100 WBC (Bld) 0.9 % [facility] Erythrocyte distribution width (RBC) [Ratio] 13.6 % 11.5 - 15.0 % [facility] Hematocrit (Bld) [Volume fraction] 42.6 % 39.0 - 51.0 % [facility] Hemoglobin (Bld) [Mass/Vol] 15 g/dL 13.0 - 17.0 g/dL [facility] Immature granulocytes (Bld) [#/Vol] 0.07 10*3/uL [facility] Immature granulocytes/100 WBC (Bld) 0.8 % [facility] Interpretation and review of laboratory results Abnormal [facility] Lymphocytes (Bld) [#/Vol] 1.43 10*3/uL [facility] Lymphocytes/100 WBC (Bld) 16.7 % [facility] MCH (RBC) [Entitic mass] 31.4 pg 26.0 - 34.0 pg [facility] MCHC (RBC) [Mass/Vol] 35.2 g/dL 30.5 - 36.0 g/dL [facility] MCV (RBC) [Entitic vol] 89.3 fL 80.0 - 100.0 fL [facility] Monocytes (Bld) [#/Vol] 1.15 10*3/uL High [facility] Monocytes/100 WBC (Bld) 13.4 % [facility] Neutrophils (Bld) [#/Vol] 5.79 10*3/uL [facility] Neutrophils/100 WBC (Bld) 67.7 % [facility] Nucleated RBC (Bld) [#/Vol] [facility] Nucleated RBC/100 WBC (Bld) [Ratio] 0 % /100 WBC [facility] Platelet mean volume (Bld) [Entitic vol] 8.6 fL Low 9.0 - 12.7 fL [facility] Platelets (Bld) [#/Vol] 139 10*3/uL Low [facility] RBC (Bld) [#/Vol] 4.77 10*6/uL 4.20 - 6.0 0 m/uL [facility] WBC (Bld) [#/Vol] 8.56 10*3/uL [facility] Basophils (Bld) [#/Vol] 0.04 10*3/uL Normal <0.11 [facility] Comment on above: Order Comment: Speci men Type: BLOOD SPECIMENOrdering Facility: [facility] Address: [address] [place] [address] Performed By: #### 5 7021-8 ####[facility] LABCLIA [id number] [place] [address] Basophils/100 WBC (Bld) 0.5 % Normal [facility] Comment on above: Order Comment: Speci men Type: BLOOD SPECIMENOrdering Facility: [facility] Address: [address] [place] [address] Performed By: #### 5 7021-8 ####[facility] LABCLIA [id number] [place] [address] Differential cell count method Nom (Bld) Auto Normal [facility] Comment on above: Order Comment: Speci men Type: BLOOD SPECIMENOrdering Facility: [facility] Address: [address] [place] [address] Performed By: #### 5 7021-8 ####[facility] LABCLIA [id number] [place] [address] Eosinophils (Bld) [#/Vol] 0.08 10*3/uL Normal <0.46 [facility] Comment on above: Order Comment: Speci men Type: BLOOD SPECIMENOrdering Facility: [facility] Address: [address] [place] [address] Performed By: #### 5 7021-8 ####[facility] LABCLIA [id number] [place] [address] Eosinophils/100 WBC (Bld) 0.9 % Normal [facility] Comment on above: Order Comment: Speci men Type: BLOOD SPECIMENOrdering Facility: [facility] Address: [address] [place] [address] Performed By: #### 5 7021-8 ####[facility] LABCLIA [id number] [place] [address] Erythrocyte distribution width (RBC) [Ratio] 13.6 % Normal 11.5-15.0 [facility] Comment on above: Order Comment: Speci men Type: BLOOD SPECIMENOrdering Facility: [facility] Address: [address] [place] [address] Performed By: #### 5 7021-8 ####[facility] LABCLIA [id number] [place] [address] Hematocrit (Bld) [Volume fraction] 42.6 % Normal 39.0-51.0 [facility] Comment on above: Order Comment: Speci men Type: BLOOD SPECIMENOrdering Facility: [facility] Address: [address] [place] [address] Performed By: #### 5 7021-8 ####[facility] LABCLIA [id number] [place] [address] Hemoglobin (Bld) [Mass/Vol] 15.0 g/dL Normal 13.0-17.0 [facility] Comment on above: Order Comment: Speci men Type: BLOOD SPECIMENOrdering Facility: [facility] Address: [address] [place] [address] Performed By: #### 5 7021-8 ####[facility] LABCLIA [id number] [place] [address] Immature granulocytes (Bld) [#/Vol] 0.07 10*3/uL Normal <0.10 [facility] Comment on above: Order Comment: Speci men Type: BLOOD SPECIMENOrdering Facility: [facility] Address: [address] [place] [address] Performed By: #### 5 7021-8 ####[facility] LABCLIA [id number] [place] [address] Immature granulocytes/100 WBC (Bld) 0.8 % Normal [facility] Comment on above: Order Comment: Speci men Type: BLOOD SPECIMENOrdering Facility: [facility] Address: [address] [place] [address] Performed By: #### 5 7021-8 ####[facility] LABCLIA [id number] [place] [address] Lymphocytes (Bld) [#/Vol] 1.43 10*3/uL Normal 1.00-4.00 [facility] Comment on above: Order Comment: Speci men Type: BLOOD SPECIMENOrdering Facility: [facility] Address: [address] [place] [address] Performed By: #### 5 7021-8 ####[facility] LABCLIA [id number] [place] [address] Lymphocytes/100 WBC (Bld) 16.7 % Normal [facility] Comment on above: Order Comment: Speci men Type: BLOOD SPECIMENOrdering Facility: [facility] Address: [address] [place] [address] Performed By: #### 5 7021-8 ####[facility] LABCLIA [id number] [place] [address] MCH (RBC) [Entitic mass] 31.4 pg Normal 26.0-34.0 [facility] Comment on above: Order Comment: Speci men Type: BLOOD SPECIMENOrdering Facility: [facility] Address: [address] [place] [address] Performed By: #### 5 7021-8 ####[facility] LABCLIA [id number] [place] [address] MCHC (RBC) [Mass/Vol] 35.2 g/dL Normal 30.5-36.0 [facility] Comment on above: Order Comment: Speci men Type: BLOOD SPECIMENOrdering Facility: [facility] Address: [address] [place] [address] Performed By: #### 5 7021-8 ####[facility] LABCLIA [id number] [place] [address] MCV (RBC) [Entitic vol] 89.3 fL Normal 80.0-100.0 [facility] Comment on above: Order Comment: Speci men Type: BLOOD SPECIMENOrdering Facility: [facility] Address: [address] [place] [address] Performed By: #### 5 7021-8 ####[facility] LABCLIA [id number] [place] [address] Monocytes (Bld) [#/Vol] 1.15 10*3/uL High <0.87 [facility] Comment on above: Order Comment: Speci men Type: BLOOD SPECIMENOrdering Facility: [facility] Address: [address] [place] [address] Performed By: #### 5 7021-8 ####[facility] LABCLIA [id number] [place] [address] Monocytes/100 WBC (Bld) 13.4 % Normal [facility] Comment on above: Order Comment: Speci men Type: BLOOD SPECIMENOrdering Facility: [facility] Address: [address] [place] [address] Performed By: #### 5 7021-8 ####[facility] LABCLIA [id number] [place] [address] Neutrophils (Bld) [#/Vol] 5.79 10*3/uL Normal 1.45-7.50 [facility] Comment on above: Order Comment: Speci men Type: BLOOD SPECIMENOrdering Facility: [facility] Address: [address] [place] [address] Performed By: #### 5 7021-8 ####[facility] LABCLIA [id number] [place] [address] Neutrophils/100 WBC (Bld) 67.7 % Normal [facility] Comment on above: Order Comment: Speci men Type: BLOOD SPECIMENOrdering Facility: [facility] Address: [address] [place] [address] Performed By: #### 5 7021-8 ####[facility] LABCLIA [id number] [place] [address] Nucleated RBC (Bld) [#/Vol] 10*3/uL Normal <0.01 [facility] Comment on above: Order Comment: Speci men Type: BLOOD SPECIMENOrdering Facility: [facility] Address: [address] [place] [address] Performed By: #### 5 7021-8 ####[facility] LABCLIA [id number] [place] [address] Nucleated RBC/100 WBC (Bld) [Ratio] 0.0 /100 WBC Normal [facility] Comment on above: Order Comment: Speci men Type: BLOOD SPECIMENOrdering Facility: [facility] Address: [address] [place] [address] Performed By: #### 5 7021-8 ####[facility] LABCLIA [id number] [place] [address] Platelet mean volume (Bld) [Entitic vol] 8.6 fL Low 9.0-12.7 [facility] Comment on above: Order Comment: Speci men Type: BLOOD SPECIMENOrdering Facility: [facility] Address: [address] [place] [address] Performed By: #### 5 7021-8 ####[facility] LABCLIA [id number] [place] [address] Platelets (Bld) [#/Vol] 139 10*3/uL Low 150-400 [facility] Comment on above: Order Comment: Speci men Type: BLOOD SPECIMENOrdering Facility: [facility] Address: [address] [place], [place] [address] Performed By: #### 5 7021-8 ####[facility] LABIA [id number] [place] [address] RBC (Bld) [#/Vol] 4.77 10*6/uL Normal 4.20-6.00 [facility] Comment on above: Order Comment: Speci men Type: BLOOD SPECIMENOrdering Facility: [facility] Address: [address] [place], [place] [address] Performed By: #### 5 7021-8 ####[facility] LABIA [id number] [place] [address] WBC (Bld) [#/Vol] 8.56 10*3/uL Normal 3.70-11.00 [facility] Comment on above: Order Comment: Speci men Type: BLOOD SPECIMENOrdering Facility: [facility] Address: [address] [place], [place] [address] Performed By: #### 5 7021-8 ####[facility] LABIA [id number] [place] [address] CNOVSPon 01-30-2025 OVS Visit (SP) Office (HEMASA) CHAD MCKEON ([id number]) 1940 M Date Time Provider Department 01/30/25 11:00 AM CHANDAN BURGOS During your visit today, we recorded the following information about you: Temperature Pulse Respiration Blood pressure 97.9 degrees 73/minute 18/minute 124/74 Weight 90.9 kg Chandan Burgos MD 02/01/2025 7:17 PM Signed NAME: Chad Mckeon NO.: [id number] DATE OF SERVICE: January 30, 2025 Referring Provider: Consultation requested by Dr. Grant for an opinion regarding Mr. Chad Mckeon, and my final recommendations will be communicated back to the requesting physician by way of shared medical record or letter via US mail. 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 SUMMARIZED [...] of the left vocal cord with fixation, confirmed by biopsy on 01/21/2025. PET scan performed on [...] diabetes mellitus without complication, unspecified whether terminal manager insulin use (HCC) (E11.9) Diabetes mellitus noted; no complications reported. - CASE HISTORY: Reverse Chronological Order (01/28/2025) PET Scan: Final results pending. Preliminary review notes normal kidneys and liver. 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 (01/07/2025) Laryngoscopic Examination: Left true vocal cord mass with fixation. HPI: Initial Visit, January 30, 2025: Chad Mckeon presents today Hematology and Oncology evaluation. He is a 84 year old male. 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 - ECOG PERFORMANCE STATUS: 1 PHYSICAL EXAMINATION: Vitals: [...] Neck: Supple. Respiratory: Appears to be respiring comfortably (more content not included)... [facility] ([id number]) 1940 M Date Time Provider Department 01/30/25 [facility] During your visit today, we recorded the following information about you: Candelaria Lock 01/30/2025 12:07 PM Signed Hi Team! If you could let us know start date. Thanks so much! Candelaria Reed 02/02/2025 2:16 PM Signed Patient scheduled for SIM on 02/05 - added education appointment w/ Audra. Nadine Irizarry RN 02/05/2025 9:04 AM Signed TO-Dr. Grant is referring Chad to Dr. Ricks for EBUS. SIM and chemo ed to be rescheduled after EBUS. I notified Audra Yanez Thanks YONATAN Gil Jodi 02/05/2025 10:55 AM Signed Sent a staff message to Dr. Ricks and Pete for EBUS Lenora Epstein 02/05/2025 1:27 PM Signed Gonzalo Ricks MD [place] [employer]; Pete Govea, YONATAN; Gisella Grant MD Thanks We'll get this in [facility]. He's on plavix, which will need a hold of at least 5 days. We will aim for next Sunday, but it may have to wait a bit longer due to plavix issue. Jasmine Peter 02/09/2025 3:49 PM Signed Chad is scheduled for his EBUS on 02/24/2025 according to [facility] Sujata Louis RN 02/10/2025 7:34 AM Signed Thank you. New encounter started to work on rescheduling of SIM and Chemo ed. Sujata Amezcua RN Allergies As of Date: 01/30/2025 (No Known Allergies) Date Reviewed: 01/30/2025 Reviewed by: Guera Leblanc MA - Fully Assessed Reason for Visit: Appointment [186] Prescriptions as of 02/10/2025 - ondansetron (ZOFRAN) 8 mg tablet Take 1 tablet by mouth every 8 hours as needed for nausea/vomiting. - prochlorperazine (COMPAZINE) 10 mg tablet Take 1 tablet by mouth every 6 hours as needed. - aspirin, enteric coated (ASPIRIN, ENTERIC COATED) 81 mg EC tablet Take 81 mg by mouth. - atorvastatin (LIPITOR) 40 mg tablet Take 40 mg by mouth daily at bedtime. - cetirizine (ZYRTEC) 10 mg tablet Take 10 mg by mouth once daily. - clopidogrel (PLAVIX) 75 mg tablet take 1 tablet (75 mg) by mouth in the morning. - glimepiride (AMARYL) 4 mg tablet TAKE ONE TABLET BY MOUTH ONCE DAILY WITH BREAKFAST OR THE FIRST MAIN MEAL OF THE DAY - magnesium oxide (MAG-OX) 400 mg (241.3 mg magnesium) tablet Take 1 tablet by mouth. - metFORMIN (GLUCOPHAGE) 500 mg tablet take one tablet by mouth twice a day for 30 days - metoprolol tartrate, short acting, (LOPRESSOR) 25 mg tablet Take 12.5 mg by mouth two times a day. - potassium chloride ER (KLOR-CON) 20 mEq tablet Take 20 mEq by mouth daily with food. - JANUVIA 100 mg tablet 1 tablet Orally Once a day for 30 days - vit A/vit C/vit E/zinc/copper (PRESERVISION AREDS ORAL) Take by mouth. - calcium carbonate/vitamin D3 (CALCIUM WITH VITAMIN D3 ORAL) Take by mouth. Problem List As Of Date: 01/30/2025 (None) Encounter Status:Closed by CANDELARIA LOCK on 02/06/25 Normal [facility] metabolic 2000 panelOrdered By: Kaushik Gonzalez on 01-30-2025 Albumin [Mass/Vol] 4.5 g/dL 3.9 - 4.9 g/dL [facility] ALP [Catalytic activity/Vol] 131 U/L High 38 - 113 U/L [facility] ALT [Catalytic activity/Vol] 19 U/L 10 - 54 U/L [facility] Anion gap [Moles/Vol] 12 mmol/L 8 - 15 mmol/L [facility] AST [Catalytic activity/Vol] 18 U/L 14 - 40 U/L [facility] Bilirubin [Mass/Vol] 0.6 mg/dL 0.2 - 1 .3 mg/dL [facility] Calcium [Mass/Vol] 9.5 mg/dL 8.5 - 10. 2 mg/dL [facility] Chloride [Moles/Vol] 102 mmol/L 98 - 10 7 mmol/L [facility] CO2 [Moles/Vol] 25 mmol/L 22 - 30 mmol/L [facility] Creatinine [Mass/Vol] 0.88 mg/dL 0.73 - 1.22 mg/dL [facility] GFR/1.73 sq M.predicted among non-blacks MDRD (S/P/Bld) [Vol rate/Area] 85 mL/min/{1.73_m2} - PINF [facility] Comment on above: Estimated Glomerular Filtration Rate (eGFR) is calculated using the 2020 CKD-EPI creatinine equation. This equation utilizes serum creatinine, sex, and age as parameters. The creatinine assay has traceable calibration to isotope dilution-mass spectrometry. Refer to KDIGO guidelines for clinical interpretation. In patients with unstable renal function, e.g. those with acute kidney injury, the eGFR may not accurately reflect actual GFR. Glucose [Mass/Vol] 199 mg/dL High 74 - 99 mg/dL [facility] Comment on above: The [place] Diabete s Association (ADA) provides guidance for cutoff values [...] Standards of Medical Care in Diabetes 2016, [place] Diabetes Association. Diabetes Care. 2016.39(Suppl 1). Interpretation and review of laboratory results Abnormal [facility] Potassium [Moles/Vol] 4.4 mmol/L 3.7 - 5.1 mmol/L [facility] Protein [Mass/Vol] 6.8 g/dL 6.3 - 8.0 g/dL [facility] Sodium [Moles/Vol] 139 mmol/L 136 - 144 mmol/L [facility] Urea nitrogen [Mass/Vol] 17 mg/dL 9 - 24 mg/dL [facility] Comprehensive metabolic 2000 panelon 01-30-2025 Albumin [Mass/Vol] 4.5 g/dL Normal 3.9-4.9 [facility] Comment on above: Order Comment: Speci men Type: BLOOD SPECIMENOrdering Facility: [facility] Address: [address] [place] [address] Performed By: #### 2 4323-8 ####[facility] LABCLIA [id number] [place] [address] ALP [Catalytic activity/Vol] 131 U/L High 38-113 [facility] Comment on above: Order Comment: Speci men Type: BLOOD SPECIMENOrdering Facility: [facility] Address: [address] [place] [address] Performed By: #### 2 4323-8 ####[facility] LABCLIA [id number] [place] [address] ALT [Catalytic activity/Vol] 19 U/L Normal 10-54 [facility] Comment on above: Order Comment: Speci men Type: BLOOD SPECIMENOrdering Facility: [facility] Address: [address] [place] [address] Performed By: #### 2 4323-8 ####[facility] LABCLIA [id number] [place] [address] Anion gap [Moles/Vol] 12 mmol/L Normal 8-15 [facility] Comment on above: Order Comment: Speci men Type: BLOOD SPECIMENOrdering Facility: [facility] Address: [address] [place] [address] Performed By: #### 2 4323-8 ####[facility] LABCLIA [id number] [place] [address] AST [Catalytic activity/Vol] 18 U/L Normal 14-40 [facility] Comment on above: Order Comment: Speci men Type: BLOOD SPECIMENOrdering Facility: [facility] Address: [address] [place] [address] Performed By: #### 2 4323-8 ####[facility] LABCLIA [id number] [place] [address] Bilirubin [Mass/Vol] 0.6 mg/dL Normal 0.2-1.3 [facility] Comment on above: Order Comment: Speci men Type: BLOOD SPECIMENOrdering Facility: [facility] Address: [address] [place] [address] Performed By: #### 2 4323-8 ####[facility] LABCLIA [id number] [place] [address] Calcium [Mass/Vol] 9.5 mg/dL Normal 8.5-10.2 [facility] Comment on above: Order Comment: Speci men Type: BLOOD SPECIMENOrdering Facility: [facility] Address: [address] [place] [address] Performed By: #### 2 4323-8 ####[facility] LABCLIA [id number] [place] [address] Chloride [Moles/Vol] 102 mmol/L Normal 98-107 [facility] Comment on above: Order Comment: Speci men Type: BLOOD SPECIMENOrdering Facility: [facility] Address: [address] [place] [address] Performed By: #### 2 4323-8 ####[facility] LABCLIA [id number] [place] [address] CO2 [Moles/Vol] 25 mmol/L Normal 22-30 [facility] Comment on above: Order Comment: Speci men Type: BLOOD SPECIMENOrdering Facility: [facility] Address: [address] [place] [address] Performed By: #### 2 4323-8 ####[facility] LABCLIA [id number] [place] [address] Creatinine [Mass/Vol] 0.88 mg/dL Normal 0.73-1.22 [facility] Comment on above: Order Comment: Speci men Type: BLOOD SPECIMENOrdering Facility: [facility] Address: [address] [place] [address] Performed By: #### 2 4323-8 ####[facility] LABCLIA [id number] [place] [address] Creatinine and Glomerular filtration rate.predicted panel (S/P/Bld) 85 mL/min/1.73m??? Normal >=60 [facility] Comment on above: Order Comment: Speci men Type: BLOOD SPECIMENOrdering Facility: [facility] Address: [address] [place] [address] Result Comment: Lana mated Glomerular Filtration Rate (eGFR) is calculated using the 2020 CKD-EPI creatinine equation. This equation utilizes serum creatinine, sex, and age as parameters. The creatinine assay has traceable calibration to isotope dilution-mass spectrometry. Refer to KDIGO guidelines for clinical interpretation. In patients with unstable renal function, e.g. those with acute kidney injury, the eGFR may not accurately reflect actual GFR. Performed By: #### 2 4323-8 ####[facility] LABCLIA [id number] [place] [address] Glucose [Mass/Vol] 199 mg/dL High 74-99 [facility] Comment on above: Order Comment: Speci men Type: BLOOD SPECIMENOrdering Facility: [facility] Address: [address] [place], [place] [id number] Result Comment: The [place] Diabetes Association (ADA) provides guidance for cutoff [...] Standards of Medical Care in Diabetes 2016, [place] Diabetes Association. Diabetes Care. 2016.39(Suppl 1). Performed By: #### 2 4323-8 ####[facility] LABCLIA [id number] [place] [address] Potassium [Moles/Vol] 4.4 mmol/L Normal 3.7-5.1 [facility] Comment on above: Order Comment: Gregorioi men Type: BLOOD SPECIMENOrdering Facility: [facility] Address: [address] [place], [place] [address] Performed By: #### 2 4323-8 ####[facility] LABCLIA [id number] [place] [address] Protein [Mass/Vol] 6.8 g/dL Normal 6.3-8.0 [facility] Comment on above: Order Comment: Speci men Type: BLOOD SPECIMENOrdering Facility: [facility] Address: [address] [place] [address] Performed By: #### 2 4323-8 ####[facility] LABCLIA [id number] [place] [address] Sodium [Moles/Vol] 139 mmol/L Normal 136-144 [facility] Comment on above: Order Comment: Speci men Type: BLOOD SPECIMENOrdering Facility: [facility] Address: [address] [place] [address] Performed By: #### 2 4323-8 ####[facility] LABCLIA [id number] [place] [address] Urea nitrogen [Mass/Vol] 17 mg/dL Normal 9-24 [facility] Comment on above: Order Comment: Speci men Type: BLOOD SPECIMENOrdering Facility: [facility] Address: [address] [place] [address] Performed By: #### 2 4323-8 ####[facility] LABCLIA [id number] [place] [address] GLUCOSE, BLOOD (POC)on 01-28 Glucose [Mass/Vol] 148 mg/dL Abnormal 74 - 99 mg/dL [facility] Comment on above: Location:[facility], [address] [place] [address] , [place], [place], [address] The Accu-Chek Inform II glucose meter has [...] blood gas instrument) in the above situations. Interpretation and review of laboratory results Abnormal [facility] NM PET/CT SKULL-THIGH INITon 01-28-2025 NM PET/CT SKULL-THIGH INIT * * *Final Report* * * DATE [...] designed to produce diagnostic CT scan quality. Physiologic/non-patholo gic uptake in some body regions could confound or obscure some pathology. * CT Dose-Length Product (DLP): 327 mGy*cm * CT Dose Reduction Employed: Yes * Blood glucose: 148 mg/dL * Injection site: Right Hand * Injected activity: 10.4 mCi * Uptake Time: 61 minutes * Radiopharmaceutical: Z06-Tuqdyfkdxhmowwsuij (FDG) COMPARISON: No previous FDG PET/CT available [...] No radiotracer avid thyroid nodule. CHEST: Lungs and Pleura: No radiotracer avid mass, nodule, or [...] No metabolically active abdominopelvic or osseous metastases. (more content not included)... Normal [facility] PET+CT Guidance for localiza tion of tumor of Skull base to mid-thigh-- W 18F-FDG Miranda 01-28-2025 Radiology Study observation (narrative) [facility] CNOVon 01-27-2025 CNOV Office Visit (RADTSA ) MIKECHAD ([id number]) 1940 Date Time Provider Department 01/27/25 9:00 AM Gisella GRANT RADKATE During your visit today, we recorded the following information about you: Temperature Pulse Respiration Blood pressure 96.9 degrees 98/minute 18/minute 122/76 Weight Height 90 kg 1.727 m Nadine Powell RN 02/04/2025 2:52 PM Signed Pacemaker/Defibrillator ?N Previous Cancer(s)?N Previous Radiation?N Lupus/Scleroderma?N On body monitoring device?N YONATAN Gil G Phillip, MD 02/04/2025 2:52 PM Signed Radiation Oncology - New Patient/Consult Note PATIENT NAME: Chad Mckeon PATIENT : 1940 REQUESTING PROVIDER: Dr. Jarquin DIAGNOSIS: 84 year old male with squamous [...] Synopsis SmartLink 01/30/2025 11:24 Vitals Temp 36.6 ?C (97.9 ?F) Pulse 73 Resp 18 BP 124/74 SpO2 96 % KPS: 90 General Appearance: Alert and oriented. No acute distress. HEENT: NCAT. Sclera anicteric. PERRL. EOMI. Oral cavity AND oropharnyx: lips and gums normal, oral and pharyngeal mucosa moist, palate elevates normally, tongue mobile and without palpable lesions, t (more content not included)... Normal [facility] 01-27-2025 CNPN Telephone (RADTSA) CHAD MCKEON ([id number]) 1940 M Date Time Provider Department 01/27/25 Gisella GRANT During your visit today, we recorded the following information about you: Nadine Powell RN 01/27/2025 10:01 AM Addendum PSS/RT: please schedule Consult with med onc PET SIM after treating neck with IV contrast and mask Consent needed Nurse visit day of SIM for IV start Nurse ed today Rad lab at PET per pt request Consult reconciliation manager Thanks YONATAN Gil Trisha 01/27/2025 10:31 AM Signed Rad Education was added to the schedule and checked in for today Jasmine B Betty Velez Tech 01/30/2025 2:42 PM Signed PSS- I schedule sim on 02/05/2025 at 9:15am. Pre-sim consent at 8:45am. Nurse visit at 9:15am Arrival time of 8:30am , No special instructions Thank you, Lenora Zelaya 02/02/2025 8:06 AM Signed Spoke to patient, Confirmed arrival on 02/05 at 830am and no special instructions. 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 Cortney - was the Nutrtion consult scheduled? Lenora Epstein 02/02/2025 1:33 PM Signed Nutrition consult scheduled as a phone call, 02/09/2025 at 945am. Confirmed with patient Allergies As of Date: 01/27/2025 (No Known Allergies) Date Reviewed: 01/27/2025 Reviewed by: Nadine Powell RN - Fully Assessed Reason for Visit: Appointment [186] Prescriptions as of 02/03/2025 - aspirin, enteric coated (ASPIRIN, ENTERIC COATED) 81 mg EC tablet Take 81 mg by mouth. - atorvastatin (LIPITOR) 40 mg tablet Take 40 mg by mouth daily at bedtime. - cetirizine (ZYRTEC) 10 mg tablet Take 10 mg by mouth once daily. - clopidogrel (PLAVIX) 75 mg tablet take 1 tablet (75 mg) by mouth in the morning. - glimepiride (AMARYL) 4 mg tablet TAKE ONE TABLET BY MOUTH ONCE DAILY WITH BREAKFAST OR THE FIRST MAIN MEAL OF THE DAY - magnesium oxide (MAG-OX) 400 mg (241.3 mg magnesium) tablet Take 1 tablet by mouth. - metFORMIN (GLUCOPHAGE) 500 mg tablet take one tablet by mouth twice a day for 30 days - metoprolol tartrate, short acting, (LOPRESSOR) 25 mg tablet Take 12.5 mg by mouth two times a day. - potassium chloride ER (KLOR-CON) 20 mEq tablet Take 20 mEq by mouth daily with food. - JANUVIA 100 mg tablet 1 tablet Orally Once a day for 30 days - vit A/vit C/vit E/zinc/copper (PRESERVISION AREDS ORAL) Take by mouth. - calcium carbonate/vitamin D3 (CALCIUM WITH VITAMIN D3 ORAL) Take by mouth. Problem List As Of Date: 01/27/2025 (None) Encounter Status:Closed by SUJATA AMEZCUA on 02/03/25 Normal [facility] PATHOLOGY REQUEST FOR LAB CO RPon 05-13-2025 PATHOLOGY REQUEST FOR LAB [facility] Comment on above: See report. Scanned copy available in EMR. LEFT VOCAL CORD SPECIMEN [facility] Pathology Request for Lab Co rpon 01-01-2025 Pathology Request for Lab [facility] Normal [facility] Comment on above: Order Comment: LEFT VOCAL CORD SPECIMEN Result Comment: See report. Scanned copy available in EMR. PERFORMED BY: [place] [address] PATHOLOGIST PARTS CONTROL CLERK MAURICE MARTIN M.D. Performed By: #### P ATH TO [facility] #### [address] ECG 12-LEADon 12-19-2024 [place] [address] Electrocardiograph Report Signed Patient: CHAD MCKEON MR#: [id number] : 1940 Acct:[id number] Age/Sex: 84 / M ADM Date: 12/19/24 Loc: [facility] Attending Dr: Austin Jarquin M.D. Ordering Physician: Austin Jarquin M.D. 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 Measurements Intervals [place] Rate: 78 P: 37 SD: 170 QRS: 5 QRSD: 96 T: 29 QT: 400 QTc: 456 Interpretive Statements SINUS RHYTHM INCOMPLETE RIGHT BUNDLE BRANCH BLOCK [90+ ms QRS DURATION, TERMINAL R IN V1/V2, 40+ ms S IN I/aVL/V4/V5/V6] NONSPECIFIC T-WAVE ABNORMALITY Abnormal ECG Compared to ECG 02/02/2023 21:28:41 Incomplete right bundle-branch block now present T-wave abnormality now present Electronically Signed On 12-19-2024 19:04:59 EDT by DARIAN LAZCANO M.D. Dictated By: DARIAN LAZCANO Signed By: 12/19/241904 DD/ 17 TD/TT: Supervisor Brake Repair: [facility] RadiologyCami MD - 12/19/2024 [place] [address] Electrocardiograph Report Signed Patient: CHAD MCKEON MR#: [id number] : 1940 Acct:[id number] Age/Sex: 84 / M ADM Date: 12/19/24 Loc: PST Attending Dr: Austin Jarquin M.D. Ordering Physician: Austin Jarquin M.D. 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 Measurements Intervals [place] Rate: 78 P: 37 SD: 170 QRS: 5 QRSD: 96 T: 29 QT: 400 QTc: 456 Interpretive Statements SINUS RHYTHM INCOMPLETE RIGHT BUNDLE BRANCH BLOCK [90+ ms QRS DURATION, TERMINAL R IN V1/V2, 40+ ms S IN I/aVL/V4/V5/V6] NONSPECIFIC T-WAVE ABNORMALITY Abnormal ECG Compared to ECG 02/02/2023 21:28:41 Incomplete right bundle-branch block now present T-wave abnormality now present Electronically Signed On 12-19-2024 19:04:59 EDT by DARIAN LAZCANO M.D. Dictated By: DARIAN LAZCANO Signed By: 12/19/241904 DD/ 17 TD/TT: Supervisor Brake Repair: [facility] Radiology Study observation (narrative) [facility] ECG 12-LEADOrdered By: Radio logist Radiology on 12-19-2024 [facility] Work Phone: XR CHEST 2Von 12-19-2024 [place] [address] XRay Report Signed Patient: CHAD MCKEON MR#: [id number] : 1940 Acct:[id number] Age/Sex: 84 / M ADM Date: 12/19/24 Loc: [facility] Attending Dr: Austin Jarquin M.D. Ordering Physician: Austin Jarquin M.D. Date of Service: 12/19/24 Procedure(s): XR chest 2V Accession Number(s): [id number] cc: Fausto Juarez M.D.; Austin Jarquin M.D. [place] [address] Patient Name: CHAD MCKEON MRN: [facility]:[id number] date: 1940 Sex: M Assigned Patient Location: [facility] Current Patient Location: [facility] Accession/Order Number: [id number] Exam Date: 12/19/2024 13:32 Report Date: 12/19/2024 13:32 At the request of: AUSTIN JARQUIN MD Procedure: XR chest 2V Chest 2 views CLINICAL HISTORY: Preop exam COMPARISON: None FINDINGS: Sternotomy wires are noted. Heart is normal in size. No consolidation pneumothorax pleural effusion or free air. XR/XR chest 2V IMPRESSION: NO ACUTE CARDIOPULMONARY ABNORMALITY. Impression dictated by: Tee Wolfe Jr.OGreg 12/19/2024 1:32 PM Dictation Location: [place] [address] Electronically authenticated by: [id number] Y Date: 12/19/2024 13:32 Dictated By: Gonzalo Navarrete M.D. Signed By: 12/19/241334 DD/ 31 TD/TT: Supervisor Brake Repair: Sonali Arboledaogwicho mcnulty MD - 12/19/2024 [place] [address] XRay Report Signed Patient: CHAD MCKEON MR#: [id number] : 1940 Acct:[id number] Age/Sex: 84 / M ADM Date: 12/19/24 Loc: PST Attending Dr: Austin Jarquin M.D. Ordering Physician: Austin Jarquin M.D. Date of Service: 12/19/24 Procedure(s): XR chest 2V Accession Number(s): [id number] cc: Fausto Juarez M.D.; Austin Jarquin M.D. [place] [address] Patient Name: CHAD MCKEON MRN: [id number] date: 1940 Sex: M Assigned [facility] Current Patient Location: [facility] Accession/Order Number: [id number] Exam Date: 12/19/2024 13:32 Report Date: 12/19/2024 13:32 At the request of: AUSTIN JARQUIN MD Procedure: XR chest 2V Chest 2 views CLINICAL HISTORY: Preop exam COMPARISON: None FINDINGS: Sternotomy wires are noted. Heart is normal in size. No consolidation pneumothorax pleural effusion or free air. XR/XR chest 2V IMPRESSION: NO ACUTE CARDIOPULMONARY ABNORMALITY. Impression dictated by: Gonzalo Nvaarrete Jr., D.OGreg 12/19/2024 1:32 PM Dictation Location: [place] [address] Electronically authenticated by: [id number] Y Date: 12/19/2024 13:32 Dictated By: Gonzalo Navarrete M.D. Signed By: 12/19/241334 DD/ 133 TD/TT: Supervisor Brake Repair: [facility]ITAL[facility] Radiology Study observation (narrative) [facility] [employer] XR CHEST 2VOrdered By: [facility] Radiology on 12-19-2024 [facility] Work Phone: 36on 11-17-2024 36 Regarding echo resul t from 11/11/2024: MD Toshia Paniagua MA Echo was good. Follow up in 1 year. Patient informed. Normal [facility] Office Visiton 10-31-2024 Follow-up visit [id number] Chad Mckeon 1940 M Date Provider Department Center 10/31/2024 DARIAN MCDUFFIE CARD [facility] Family History Problem Relation Age of Onset No Known Problems Mother Family Status - Relation Status Age at Mother Level of Service:57493 SD OFFICE/OUTPATIENT ESTABLISHED MOD MDM 30 MIN Normal [facility] Office Visiton 05-16-2024 Follow-up visit [id number] Chad Mckeon Karlene 1940 M Date Provider Department Center 05/16/2024 KEENAN EUGENE CARD [facility] Family History Problem Relation Age of Onset No Known Problems Mother Family Status - Relation Status Age at Mother Level of Service:39745 SD OFFICE/OUTPATIENT ESTABLISHED LOW MDM 20 MIN Normal [facility] CBC AUTO DIFFon 01-09-2023 BASO # 0.1 103/ul Normal 0.0-0.1 [facility] Comment on above: Performed By: #### C BC #### [facility] [address] [place] [address] Dr. Андрей Toledo Basophils/100 WBC (Bld) 0.8 % Normal 0.2-2.0 [facility] Comment on above: Performed By: #### C BC #### [facility] [address] [place] [address] [address] Андрей Toledo EO # 0.1 103/ul Normal 0.0-0.7 [facility] Comment on above: Performed By: #### C BC #### [facility] [address] [place] [address] [address] Андрей Toledo Eosinophils/100 WBC (Bld) 2.3 % Normal 0.9-7.0 [facility] Comment on above: Performed By: #### C BC #### [facility] [address] [place] [address] Dr. Андрей Toledo Erythrocyte distribution width (RBC) [Ratio] 13.0 % Normal 11.0-15.0 [facility] Comment on above: Performed By: #### C BC #### [facility] [address] [place] [address] Dr. Андрей Toledo Hematocrit (Bld) [Volume fraction] 38.4 % Critically low 42.0-54.0 [facility] Comment on above: Performed By: #### C BC #### [facility] [address] [address] [address] Андрей Toledo Hemoglobin (Bld) [Mass/Vol] 13.1 g/dL Critically low 14.0-18.0 [facility] Comment on above: Performed By: #### C BC #### [facility] [address] [address] [address] Андрей Toledo IG # 0.11 10e3/ul Critically high 0.00-0.03 [facility] Comment on above: Performed By: #### C BC #### [facility] [address] [address] [address] Андрей Toledo IG % 1.8 % Critically high 0.0-0.5 [facility] Comment on above: Performed By: #### C BC #### [facility] [address] [address] [address] Андрей Toledo LYMPH # 1.3 103/ul Normal 1.2-3.8 [facility] Comment on above: Performed By: #### C BC #### [facility] [address] [address] [address] Андрей Toledo Lymphocytes/100 WBC (Bld) 22.2 % Normal 20.5-60.0 [facility] Comment on above: Performed By: #### C BC #### [facility] [address] [address] [address] Андрей Toledo MANUAL DIFF REQ NO Normal [facility] Comment on above: Performed By: #### C BC #### [facility] [address] [address] [address] Андрей Toledo MCH (RBC) [Entitic mass] 32.2 pg Normal 25.9-34.0 [facility] Comment on above: Performed By: #### C BC #### [facility] [address] [address] [address] Андрей Toledo MCHC (RBC) [Mass/Vol] 34.1 g/dL Normal 29.9-35.2 [facility] Comment on above: Performed By: #### C BC #### [facility] [address] [address] [address] Андрей Toledo MCV (RBC) [Entitic vol] 94.3 fL Critically high 80.0-94.0 [facility] Comment on above: Performed By: #### C BC #### [facility] [address] [address] [address] Андрей Toledo MONO # 0.9 103/ul Critically high 0.3-0.8 [facility] Comment on above: Performed By: #### C BC #### [facility] [address] [address] [address] Андрей Toledo Monocytes/100 WBC (Bld) 15.5 % Critically high 1.7-12.0 [facility] Comment on above: Performed By: #### C BC #### [facility] [address] [place] [address] Dr. Андрей Toledo NEUT # 3.4 103/ul Normal 1.4-6.5 [facility] Comment on above: Performed By: #### C BC #### [facility] [address] [place] [address] Dr. Андрей Toledo Neutrophils/100 WBC (Bld) 57.4 % Normal 43.0-75.0 [facility] Comment on above: Performed By: #### C BC #### [facility] [address] [place] [address] Dr. Андрей Toledo Platelet mean volume (Bld) [Entitic vol] 8.5 fL Critically low 9.5-13.5 [facility] Comment on above: Performed By: #### C BC #### [facility] [address] [place] [address] Dr. Андрей Toledo PLT 149 103/ul Critically low 150-450 [facility] Comment on above: Performed By: #### C BC #### [facility] [address] [address] [address] Андрей Toledo RBC 4.07 106/ul Critically low 4.70-6.10 [facility] Comment on above: Performed By: #### C BC #### [facility] [address] [place] [address] Dr. Андрей Toledo WBC 6.0 103/ul Normal 4.0-11.0 [facility] Comment on above: Performed By: #### C BC #### [facility] [address] [place] [address] Dr. Андрей Toledo PROF 14(COMP METB)on 023 Albumin [Mass/Vol] 2.9 g/dL Critically low 3.4-5.0 [facility] Comment on above: Performed By: #### C BC #### [facility] [address] [place] [address] Dr. Андрей Toledo Albumin/Globulin [Mass ratio] 0.9 {ratio} Normal [facility] Comment on above: Performed By: #### C BC #### [facility] [address] [place] [address] Dr. Андрей Toledo ALP [Catalytic activity/Vol] 93 U/L Normal 46-116 [facility] Comment on above: Performed By: #### C BC #### [facility] [address] [place] [address] Dr. Андрей Toledo ALT [Catalytic activity/Vol] 28 U/L Normal 16-63 [facility] Comment on above: Performed By: #### C BC #### [facility] [address] [place] [address] Dr. Андрей Toledo Anion gap [Moles/Vol] 14.9 mmol/L Normal [facility] Comment on above: Performed By: #### C BC #### [facility] [address] [place] [address] Dr. Андрей Toledo AST [Catalytic activity/Vol] 17 U/L Normal 15-37 [facility] Comment on above: Performed By: #### C BC #### [facility] [address] [place] [address] Dr. Андрей Toledo Bilirubin [Mass/Vol] 0.3 mg/dL Normal 0.2-1.0 [facility] Comment on above: Performed By: #### C BC #### [facility] [address] [place] [address] Dr. Андрей Toledo Calcium [Mass/Vol] 8.4 mg/dL Critically low 8.5-10.1 [facility] Comment on above: Performed By: #### C BC #### [facility] [address] [place] [address] Dr. Андрей Toledo Chloride [Moles/Vol] 106 mmol/L Normal 98-107 [facility] Comment on above: Performed By: #### C BC #### [facility] [address] [place] [address] Dr. Андрей Toledo CO2 [Moles/Vol] 26.5 mmol/L Normal 21.0-32.0 [facility] Comment on above: Performed By: #### C BC #### [facility] [address] [place] [address] Dr. Андрей Toledo Creatinine [Mass/Vol] 1.02 mg/dL Normal 0.70-1.30 [facility] Comment on above: Performed By: #### C BC #### [facility] [address] [place] [address] Dr. Андрей Toledo EGFR-AF AUSTRIAN >60 Normal >=60 [facility] Comment on above: Performed By: #### C BC #### [facility] [address] [place] [address] Dr. Андрей Toledo EGFR-NON AF AUSTRIAN >60 Normal >=60 [facility] Comment on above: Performed By: #### C BC #### [facility] [address] [place] [address] Dr. Андрей Toledo Globulin (S) [Mass/Vol] 3.1 g/dL Normal [facility] Comment on above: Performed By: #### C BC #### [facility] [address] [place] [address] Dr. Андрей Toledo Glucose [Mass/Vol] 221 mg/dL Critically high 74-106 [facility] Comment on above: Performed By: #### C BC #### [facility] [address] [place] [address] Dr. Андрей Toledo Potassium [Moles/Vol] 4.4 mmol/L Normal 3.5-5.1 [facility] Comment on above: Performed By: #### C BC #### [facility] [address] [place] [address] Dr. Андрей oTledo Protein [Mass/Vol] 6.0 g/dL Critically low 6.4-8.2 [facility] Comment on above: Performed By: #### C BC #### [facility] [address] [place] [address] Dr. Андрей Toledo Sodium [Moles/Vol] 143 mmol/L Normal 136-145 [facility] Comment on above: Performed By: #### C BC #### [facility] [address] [place] [address] Dr. Андрей Toledo Urea nitrogen [Mass/Vol] 20.0 mg/dL Critically high 7.0-18.0 [facility] Comment on above: Performed By: #### C BC #### [facility] [address] [place] [address] Dr. Андрей Toledo Urea nitrogen/Creatinine [Mass ratio] 19.6 mg/mg Normal [facility] Comment on above: Performed By: #### C BC #### [facility] [address] [place] [address] Dr. Андрей Toledo PTT HEPARIN MONITORon 2022 aPTT Coag (Bld) [Time] 46.9 s Normal 39.5-54.2 [facility] Comment on above: Performed By: #### P TT, PT #### [facility] [address] [place] [address] Dr. Андрей Toledo BNPon 01-08-2023 Natriuretic peptide B (Bld) [Mass/Vol] 192.0 pg/mL Normal <=1,800.0 [facility] Comment on above: Performed By: #### H STROPN, BNP, CMP #### [facility] [address] [place] [address] Dr. Андрей Toledo CARDIAC BEAU 3-6on 3 CK [Catalytic activity/Vol] 102 U/L Normal 39-308 [facility] Comment on above: Performed By: #### P TT, PT #### [facility] [address] [place] [address] Dr. Андрей Toledo CK.MB [Mass/Vol] 1.92 ng/mL Normal <=3.60 [facility] Comment on above: Performed By: #### P TT, PT #### [facility] [address] [place] [address] Dr. Андрей Toledo HSTROP 16.0 pg/mL Normal 4.0-76.1 [facility] Comment on above: Result Comment: CUT- OFF POINTS HAVE BEEN ESTABLISHED BASED ON THE FOURTH UNIVERSAL DEFINITIONS OF MYOCARDIAL INFARCTION. THE UPPER REFERENCE LIMIT (URL) OF TROPONIN, DEFINED THE 99TH PERCENTILE OF cTnI DISTRIBUTION IN A REFERENCE POPULATION, HAS BEEN CONFIRMED THE DECISION THRESHOLD FOR [place] DIAGNOSIS. Performed By: #### P TT, PT #### [facility] [address] [place] [address] Dr. Андрей Toledo CK [Catalytic activity/Vol] 66 U/L Normal 39-308 [facility] Comment on above: Performed By: #### C MREP #### [facility] [address] [place] [address] Dr. Андрей Toledo CK.MB [Mass/Vol] 2.12 ng/mL Normal <=3.60 [facility] Comment on above: Performed By: #### C MREP #### [facility] [address] [place] [address] Dr. Андрей Toledo HSTROP 20.1 pg/mL Normal 4.0-76.1 [facility] Comment on above: Result Comment: CUT- OFF POINTS HAVE BEEN ESTABLISHED BASED ON THE FOURTH UNIVERSAL DEFINITIONS OF MYOCARDIAL INFARCTION. THE UPPER REFERENCE LIMIT (URL) OF TROPONIN, DEFINED THE 99TH PERCENTILE OF cTnI DISTRIBUTION IN A REFERENCE POPULATION, HAS BEEN CONFIRMED THE DECISION THRESHOLD FOR [place] DIAGNOSIS. Performed By: #### C MREP #### [facility] [address] [place] [address] Dr. Андрей Toledo CBC AUTO DIFFon 01-08-2023 EO # 0.1 103/ul Normal 0.0-0.7 [facility] Comment on above: Performed By: #### C BC #### [facility] [address] [address] [address] Андрей Toledo Eosinophils/100 WBC (Bld) 1.9 % Normal 0.9-7.0 [facility] Comment on above: Performed By: #### C BC #### [facility] [address] [address] [address] Андрей Toledo Erythrocyte distribution width (RBC) [Ratio] 13.1 % Normal 11.0-15.0 [facility] Comment on above: Performed By: #### C BC #### [facility] [address] [place] [address] Dr. Андрей Toledo Hematocrit (Bld) [Volume fraction] 38.8 % Critically low 42.0-54.0 [facility] Comment on above: Performed By: #### C BC #### [facility] [address] [place] [address] Dr. Андрей Toledo Hemoglobin (Bld) [Mass/Vol] 13.0 g/dL Critically low 14.0-18.0 [facility] Comment on above: Performed By: #### C BC #### [facility] [address] [place] [address] Dr. Андерй Toledo IG # 0.05 10e3/ul Critically high 0.00-0.03 [facility] Comment on above: Performed By: #### C BC #### [facility] [address] [place] [address] Dr. Андрей Toledo IG % 0.7 % Critically high 0.0-0.5 [facility] Comment on above: Performed By: #### C BC #### [facility] [address] [place] [address] Dr. Андрей Toledo Lymphocytes/100 WBC (Bld) 23.2 % Normal 20.5-60.0 [facility] Comment on above: Performed By: #### C BC #### [facility] [address] [place] [address] Dr. Андрей Toledo MCH (RBC) [Entitic mass] 31.9 pg Normal 25.9-34.0 [facility] Comment on above: Performed By: #### C BC #### [facility] [address] [address] [address] Андрей Toledo MCV (RBC) [Entitic vol] 95.1 fL Critically high 80.0-94.0 [facility] Comment on above: Performed By: #### C BC #### [facility] [address] [address] [address] Андрей Toledo MONO # 0.9 103/ul Critically high 0.3-0.8 [facility] Comment on above: Performed By: #### C BC #### [facility] [address] [address] [address] Андрей Toledo Monocytes/100 WBC (Bld) 13.6 % Critically high 1.7-12.0 [facility] Comment on above: Performed By: #### C BC #### [facility] [address] [place] [address] Dr. Андрей Toledo NEUT # 4.1 103/ul Normal 1.4-6.5 [facility] Comment on above: Performed By: #### C BC #### [facility] [address] [place] [address] Dr. Андрей Toledo Neutrophils/100 WBC (Bld) 60.0 % Normal 43.0-75.0 [facility] Comment on above: Performed By: #### C BC #### [facility] [address] [place] [address] Dr. Андрей Toledo Platelet mean volume (Bld) [Entitic vol] 8.6 fL Critically low 9.5-13.5 [facility] Comment on above: Performed By: #### C BC #### [facility] [address] [place] [address] Dr. Андрей Toledo PLT 153 103/ul Normal 150-450 [facility] Comment on above: Performed By: #### C BC #### [facility] [address] [place] [address] Dr. Андрей Toledo RBC 4.08 106/ul Critically low 4.70-6.10 [facility] Comment on above: Performed By: #### C BC #### [facility] [address] [address] [address] Андрей Toledo BASO # 0.0 103/ul Normal 0.0-0.1 [facility] Comment on above: Performed By: #### C BC #### [facility] [address] [address] [address] Андрей Toledo Basophils/100 WBC (Bld) 0.6 % Normal 0.2-2.0 [facility] Comment on above: Performed By: #### C BC #### [facility] [address] [address] [address] Андрей Toledo EO # 0.2 103/ul Normal 0.0-0.7 [facility] Comment on above: Performed By: #### C BC #### [facility] [address] [place] [address] Dr. Андрей Toledo Eosinophils/100 WBC (Bld) 2.6 % Normal 0.9-7.0 [facility] Comment on above: Performed By: #### C BC #### [facility] [address] [place] [address] Dr. Андрей Toledo Erythrocyte distribution width (RBC) [Ratio] 12.9 % Normal 11.0-15.0 [facility] Comment on above: Performed By: #### C BC #### [facility] [address] [place] [address] Dr. Андрей Toledo Hematocrit (Bld) [Volume fraction] 37.9 % Critically low 42.0-54.0 [facility] Comment on above: Performed By: #### C BC #### [facility] [address] [place] [address] Dr. Андрей Toledo Hemoglobin (Bld) [Mass/Vol] 12.7 g/dL Critically low 14.0-18.0 [facility] Comment on above: Performed By: #### C BC #### [facility] [address] [address] [address] Андрей Toledo IG # 0.03 10e3/ul Normal 0.00-0.03 [facility] Comment on above: Performed By: #### C BC #### [facility] [address] [address] [address] Андрей Toledo IG % 0.4 % Normal 0.0-0.5 [facility] Comment on above: Performed By: #### C BC #### [facility] [address] [address] [address] Андрей Toledo LYMPH # 1.6 103/ul Normal 1.2-3.8 [facility] Comment on above: Performed By: #### C BC #### [facility] [address] [place] [address] Dr. Андрей Toledo Lymphocytes/100 WBC (Bld) 23.5 % Normal 20.5-60.0 [facility] Comment on above: Performed By: #### C BC #### [facility] [address] [place] [address] Dr. Андрей Toledo MANUAL DIFF REQ NO Normal [facility] Comment on above: Performed By: #### C BC #### [facility] [address] [place] [address] Dr. Андрей Toledo MCH (RBC) [Entitic mass] 31.8 pg Normal 25.9-34.0 [facility] Comment on above: Performed By: #### C BC #### [facility] [address] [place] [address] Dr. Андрей Toledo MCHC (RBC) [Mass/Vol] 33.5 g/dL Normal 29.9-35.2 [facility] Comment on above: Performed By: #### C BC #### [facility] [address] [place] [address] Dr. Андрей Toledo MCV (RBC) [Entitic vol] 95.0 fL Critically high 80.0-94.0 [facility] Comment on above: Performed By: #### C BC #### [facility] [address] [place] [address] Dr. Андрей Toledo MONO # 1.0 103/ul Critically high 0.3-0.8 [facility] Comment on above: Performed By: #### C BC #### [facility] [address] [place], [place] [id number] Dr. Андрей Toledo Monocytes/100 WBC (Bld) 14.8 % Critically high 1.7-12.0 [facility] Comment on above: Performed By: #### C BC #### [facility] [address] [place] [address] Dr. Андрей Toledo NEUT # 4.0 103/ul Normal 1.4-6.5 [facility] Comment on above: Performed By: #### C BC #### [facility] [address] [place] [address] Dr. Андрей Toledo Neutrophils/100 WBC (Bld) 58.1 % Normal 43.0-75.0 [facility] Comment on above: Performed By: #### C BC #### [facility] [address] [place] [address] Dr. Андрей Toledo Platelet mean volume (Bld) [Entitic vol] 8.3 fL Critically low 9.5-13.5 [facility] Comment on above: Performed By: #### C BC #### [facility] [address] [place] [address] Dr. Андрей Toledo PLT 145 103/ul Critically low 150-450 [facility] Comment on above: Performed By: #### C BC #### [facility] [address] [place] [address] Dr. Андрей Toledo RBC 3.99 106/ul Critically low 4.70-6.10 [facility] Comment on above: Performed By: #### C BC #### [facility] [address] [place] [address] Dr. Андрей Toledo WBC 6.8 103/ul Normal 4.0-11.0 [facility] Comment on above: Performed By: #### C BC #### [facility] [address] [place] [address] Dr. Андрей Toledo [facility]25 SARS-CoV-2 (COVID-19) RNA CLAUDIA+probe Ql (Unsp spec) Not detected Normal NOT DETECTED [facility] Comment on above: Result Comment: THIS TEST IS NOT APPROVED BY THE FDA. IT HAS BEEN AUTHORIZED FOR USE UNDER AN EMERGENCY USE AUTHORIZATION. Performed By: #### C VDTB #### [facility] [address] [address] [address] Андрей Toledo LIPID PROFILEon 01-08-2023 CHOL-HDL RATIO NORM SEE BELOW Normal [facility] Comment on above: Result Comment: 3.3 - 4.4 LOW RISK 4.4 - 7.1 AVERAGE RISK 7.1 - 11.0 MODERATE RISK >11.0 HIGH RISK Performed By: #### C BC #### [facility] [address] [place] [address] Dr. Андрей Toledo Cholesterol [Mass/Vol] 183 mg/dL Normal <=200 [facility] Comment on above: Performed By: #### C BC #### [facility] [address] [place] [address] Dr. Андрей Toledo Cholesterol in HDL [Mass/Vol] 33 mg/dL Critically low 40-60 [facility] Comment on above: Performed By: #### C BC #### [facility] [address] [place] [address] Dr. Андрей Toledo Cholesterol in LDL [Mass/Vol] 90.8 mg/dL Normal [facility] Comment on above: Performed By: #### C BC #### [facility] [address] [place] [address] Dr. Андрей Toledo Cholesterol.total/Ch olesterol in HDL [Mass ratio] 5.5 {ratio} Normal [facility] Comment on above: Performed By: #### C BC #### [facility] [address] [place] [address] Dr. Андрей Toledo HDL NORMAL > or = 60 mg/dl - LO W CARDIOVASCULAR RISK <40 mg/dl - HIGH CARDIOVASCULAR RISK Normal [facility] Comment on above: Performed By: #### C BC #### [facility] [address] [place], [place] [id number] Dr. Андрей Toledo LDL CALC NORMAL SEE BELOW Normal [facility] Comment on above: Result Comment: <100 mg/dl OPTIMAL 100 - 129 mg/dl NEAR OR ABOVE OPTIMAL 130 - 159 mg/dl BORDERLINE HIGH 160 - 189 mg/dl HIGH >190 mg/dl VERY HIGH Performed By: #### C BC #### [facility] [address] [place] [address] Dr. Андрей Toledo Triglyceride [Mass/Vol] 296 mg/dL Critically high <=150 [facility] Comment on above: Performed By: #### C BC #### [facility] [address] [address] [address] Андрей Toledo VLDL CALC 59.2 mg/dL Normal [facility] Comment on above: Performed By: #### C BC #### [facility] [address] [place] [address] Dr. Андрей Toledo POINT OF CARE GLUCOSEon 12-25 Glucose [Mass/Vol] 160 mg/dL Critically high 74-106 [facility] Comment on above: Performed By: #### C BC #### [facility] [address] [place] [address] Dr. Андрей Toledo PROF 14(COMP METB)on 023 Albumin [Mass/Vol] 3.0 g/dL Critically low 3.4-5.0 [facility] Comment on above: Performed By: #### H STROPN, BNP, CMP #### [facility] [address] [place] [address] Dr. Андрей Toledo Albumin/Globulin [Mass ratio] 0.9 {ratio} Normal [facility] Comment on above: Performed By: #### H STROPN, BNP, CMP #### [facility] [address] [place] [address] Dr. Андрей Toledo ALP [Catalytic activity/Vol] 95 U/L Normal 46-116 [facility] Comment on above: Performed By: #### H STROPN, BNP, CMP #### [facility] [address] [place] [address] Dr. Андрей Toledo ALT [Catalytic activity/Vol] 24 U/L Normal 16-63 [facility] Comment on above: Performed By: #### H STROPN, BNP, CMP #### [facility] [address] [place] [address] Dr. Андрей Toledo Anion gap [Moles/Vol] 12.8 mmol/L Normal [facility] Comment on above: Performed By: #### H STROPN, BNP, CMP #### [facility] [address] [address] [address] Андрей Toledo AST [Catalytic activity/Vol] 12 U/L Critically low 15-37 [facility] Comment on above: Performed By: #### H STROPN, BNP, CMP #### [facility] [address] [address] [address] Андрей Toledo Bilirubin [Mass/Vol] 0.5 mg/dL Normal 0.2-1.0 [facility] Comment on above: Performed By: #### H STROPN, BNP, CMP #### [facility] [address] [address] [address] Андрей Toledo Calcium [Mass/Vol] 8.8 mg/dL Normal 8.5-10.1 [facility] Comment on above: Performed By: #### H STROPN, BNP, CMP #### [facility] [address] [address] [address] Андрей Toledo Chloride [Moles/Vol] 108 mmol/L Critically high 98-107 [facility] Comment on above: Performed By: #### H STROPN, BNP, CMP #### [facility] [address] [place] [address] Dr. Андрей Toledo CO2 [Moles/Vol] 29.2 mmol/L Normal 21.0-32.0 [facility] Comment on above: Performed By: #### H STROPN, BNP, CMP #### [facility] [address] [address] [address] Андрей Toledo Creatinine [Mass/Vol] 1.06 mg/dL Normal 0.70-1.30 [facility] Comment on above: Performed By: #### H STROPN, BNP, CMP #### [facility] [address] [address] [address] Андрей Toledo EGFR-AF AUSTRIAN >60 Normal >=60 [facility] Comment on above: Performed By: #### H STROPN, BNP, CMP #### [facility] [address] [address] [address] Андрей Toledo EGFR-NON AF AUSTRIAN >60 Normal >=60 [facility] Comment on above: Performed By: #### H STROPN, BNP, CMP #### [facility] [address] [address] [address] Андрей Toledo Globulin (S) [Mass/Vol] 3.3 g/dL Normal [facility] Comment on above: Performed By: #### H STROPN, BNP, CMP #### [facility] [address] [place] [address] Dr. Андрей Toledo Glucose [Mass/Vol] 155 mg/dL Critically high 74-106 [facility] Comment on above: Performed By: #### H STROPN, BNP, CMP #### [facility] [address] [address] [address] Андрей Toledo Potassium [Moles/Vol] 5.0 mmol/L Normal 3.5-5.1 [facility] Comment on above: Performed By: #### H STROPN, BNP, CMP #### [facility] [address] [address] [address] Андрей Toledo Protein [Mass/Vol] 6.3 g/dL Critically low 6.4-8.2 [facility] Comment on above: Performed By: #### H STROPN, BNP, CMP #### [facility] [address] [address] [address] Андрей Toledo Sodium [Moles/Vol] 145 mmol/L Normal 136-145 [facility] Comment on above: Performed By: #### H STROPN, BNP, CMP #### [facility] [address] [address] [address] Андрей Toledo Urea nitrogen [Mass/Vol] 25.0 mg/dL Critically high 7.0-18.0 [facility] Comment on above: Performed By: #### H STROPN, BNP, CMP #### [facility] [address] [address] [address] Андрей Toledo Urea nitrogen/Creatinine [Mass ratio] 23.6 mg/mg Normal [facility] Comment on above: Performed By: #### H STROPN, BNP, CMP #### [facility] [address] [place] [address] Dr. Андрей Toledo PROTIMEon 01-08-2023 INR Coag (PPP) [Relative time] 0.94 {INR} Normal [facility] Comment on above: Performed By: #### P TT, PT #### [facility] [address] [place] [address] Dr. Андрей Toledo INR GUIDELINES SEE BELOW Normal [facility] Comment on above: Result Comment: CAMMIE RED INR: 2.0 - 3.0 CONDITIONS NOT LISTED BELOW 2.5 - 3.5 FOR PROSTHETIC HEART VALVE REPLACEMENT 2.5 - 3.5 RECURRENT THROMBOSIS Performed By: #### P TT, PT #### [facility] [address] [place] [address] Dr. Андрей Toledo PT Coag (PPP) [Time] 10.0 s Normal 9.0-11.6 [facility] Comment on above: Performed By: #### P TT, PT #### [facility] [address] [place] [address] Dr. Андрей Toledo PTTon 01-08-2023 aPTT Coag (Bld) [Time] 27.5 s Normal 22.3-36.2 [facility] Comment on above: Performed By: #### P TT, PT #### [facility] [address] [place] [address] Dr. Андрей Toledo SYMPTOMATIC COVID-19 ANTIGEN on 01-08-2023 EUA Statement SEE BELOW [facility] Comment on above: Result Comment: This [...] Performed By: #### P TT, PT #### [facility] [address] [place] [address] Dr. Андрей Toledo SARS-CoV-2 (COVID-19) RNA CLAUDIA+probe Ql (Unsp spec) Negative Normal NEGATIVE [facility] Comment on above: Performed By: #### P TT, PT #### [facility] [address] [address] [address] Андрей Toledo T4on 01-08-2023 T4 [Mass/Vol] 6.20 ug/dL Normal 4.50-12.[address] [facility] Comment on above: Performed By: #### P TT, PT #### [facility] [address] [place] [address] Dr. Андрей Toledo TROPONIN, HIGH SENSITIVITYon 01-08-2023 HSTROP 28.8 pg/mL Normal 4.0-76.1 [facility] Comment on above: Result Comment: CUT- OFF POINTS HAVE BEEN ESTABLISHED BASED ON THE FOURTH UNIVERSAL DEFINITIONS OF MYOCARDIAL INFARCTION. THE UPPER REFERENCE LIMIT (URL) OF TROPONIN, DEFINED THE 99TH PERCENTILE OF cTnI DISTRIBUTION IN A REFERENCE POPULATION, HAS BEEN CONFIRMED THE DECISION THRESHOLD FOR [place] DIAGNOSIS. Performed By: #### H STROPN, BNP, CMP #### [facility] [address] [address] [address] Андрей Toledo TSHon 01-08-2023 TSH 2.888 uIU/mL Normal 0.358-3.[address] [facility] Comment on above: Performed By: #### C BC #### [facility] [address] [place] [address] Dr. Андрей Toledo XR CHEST 1 Von [...] TIFFANY TORO Date: 2023-01-08 11:22 Normal [facility] T4 LABCORPon 02-02-2022 T4 [Mass/Vol] 7.5 ug/dL Normal 4.5-12.[address] [facility] Comment on above: Performed By: #### T 4LC #### [facility] [address] [place] [address] Dr. Андрей Toledo BNPon 02-01-2022 Natriuretic peptide B (Bld) [Mass/Vol] 26.0 pg/mL Normal <=1,800.0 [facility] Comment on above: Performed By: #### P TT, PT #### [facility] [address] [place] [address] Dr. Андрей Toledo CBC AUTO DIFFon 02-01-2022 BASO # 0.1 103/ul Normal 0.0-0.1 [facility] Comment on above: Performed By: #### P TT, PT #### [facility] [address] [place] [address] Dr. Андрей Toledo Basophils/100 WBC (Bld) 0.6 % Normal 0.2-2.0 [facility] Comment on above: Performed By: #### P TT, PT #### [facility] [address] [place] [address] Dr. Андрей Toledo EO # 0.2 103/ul Normal 0.0-0.7 [facility] Comment on above: Performed By: #### P TT, PT #### [facility] [address] [place] [address] Dr. Андрей Toledo Eosinophils/100 WBC (Bld) 1.9 % Normal 0.9-7.0 [facility] Comment on above: Performed By: #### P TT, PT #### [facility] [address] [place] [address] Dr. Андрей Toledo Erythrocyte distribution width (RBC) [Ratio] 13.2 % Normal 11.0-15.0 [facility] Comment on above: Performed By: #### P TT, PT #### [facility] [address] [place] [address] [address] Андрей Toledo Hematocrit (Bld) [Volume fraction] 42.7 % Normal 42.0-54.0 [facility] Comment on above: Performed By: #### P TT, PT #### [facility] [address] [place] [address] Dr. Андрей Toledo Hemoglobin (Bld) [Mass/Vol] 14.2 g/dL Normal 14.0-18.0 [facility] Comment on above: Performed By: #### P TT, PT #### [facility] [address] [place] [address] Dr. Андрей Toledo IG # 0.11 10e3/ul Critically high 0.00-0.03 [facility] Comment on above: Performed By: #### P TT, PT #### [facility] [address] [place] [address] Dr. Андрей Toledo IG % 1.4 % Critically high 0.0-0.5 [facility] Comment on above: Performed By: #### P TT, PT #### [facility] [address] [place] [address] Dr. Андрей Toledo LYMPH # 1.6 103/ul Normal 1.2-3.8 [facility] Comment on above: Performed By: #### P TT, PT #### [facility] [address] [place] [address] Dr. Андрей Toledo Lymphocytes/100 WBC (Bld) 20.0 % Critically low 20.5-60.0 [facility] Comment on above: Performed By: #### P TT, PT #### [facility] [address] [place] [address] Dr. Андрей Toledo MANUAL DIFF REQ NO Normal [facility] Comment on above: Performed By: #### P TT, PT #### [facility] [address] [place] [address] Dr. Андрей Toledo MCH (RBC) [Entitic mass] 30.5 pg Normal 25.9-34.0 [facility] Comment on above: Performed By: #### P TT, PT #### [facility] [address] [place] [address] Dr. Андрей Toledo MCHC (RBC) [Mass/Vol] 33.3 g/dL Normal 29.9-35.2 [facility] Comment on above: Performed By: #### P TT, PT #### [facility] [address] [place] [address] Dr. Андрей Toledo MCV (RBC) [Entitic vol] 91.8 fL Normal 80.0-94.0 [facility] Comment on above: Performed By: #### P TT, PT #### [facility] [address] [place] [address] Dr. Андрей Toledo MONO # 1.0 103/ul Critically high 0.3-0.8 [facility] Comment on above: Performed By: #### P TT, PT #### [facility] [address] [place] [address] Dr. Андрей Toledo Monocytes/100 WBC (Bld) 13.4 % Critically high 1.7-12.0 [facility] Comment on above: Performed By: #### P TT, PT #### [facility] [address] [place] [address] Dr. Андрей Toledo NEUT # 4.9 103/ul Normal 1.4-6.5 [facility] Comment on above: Performed By: #### P TT, PT #### [facility] [address] [place] [address] Dr. Андрей Toledo Neutrophils/100 WBC (Bld) 62.7 % Normal 43.0-75.0 [facility] Comment on above: Performed By: #### P TT, PT #### [facility] [address] [place] [address] Dr. Андрей Toledo Platelet mean volume (Bld) [Entitic vol] 8.8 fL Critically low 9.5-13.5 [facility] Comment on above: Performed By: #### P TT, PT #### [facility] [address] [place] [address] Dr. Андрей Toledo PLT 235 103/ul Normal 150-450 [facility] Comment on above: Performed By: #### P TT, PT #### [facility] [address] [place] [address] Dr. Андрей Toledo RBC 4.65 106/ul Critically low 4.70-6.10 [facility] Comment on above: Performed By: #### P TT, PT #### [facility] [address] [place] [address] Dr. Андрей Toledo WBC 7.8 103/ul Normal 4.0-11.0 [facility] Comment on above: Performed By: #### P TT, PT #### [facility] [address] [place] [address] Dr. Андрей Toledo FREE THYROXINE INDEX T7on FTI 2.70 Normal 1.30-4.50 [facility] Comment on above: Performed By: #### P TT, PT #### [facility] [address] [place] [address] Dr. Андрей Toledo T3U 36.0 % Normal 33.0-40.0 [facility] Comment on above: Performed By: #### P TT, PT #### [facility] [address] [place] [address] Dr. Андрей Toledo T4 [Mass/Vol] 7.50 ug/dL Normal 4.50-12.10 [facility] Comment on above: Result Comment: T4 t esting performed by [facility] Performed By: #### P TT, PT #### [facility] [address] [place] [address] Dr. Андрей Toledo PROF 14(COMP METB)on 022 Albumin [Mass/Vol] 3.2 g/dL Critically low 3.4-5.0 [facility] Comment on above: Performed By: #### P TT, PT #### [facility] [address] [place] [address] Dr. Андрей Toledo Albumin/Globulin [Mass ratio] 0.8 {ratio} Normal [facility] Comment on above: Performed By: #### P TT, PT #### [facility] [address] [place] [address] [address] Андрей Toledo ALP [Catalytic activity/Vol] 105 U/L Normal 46-116 [facility] Comment on above: Performed By: #### P TT, PT #### [facility] [address] [place] [address] [address] Андрей Toledo ALT [Catalytic activity/Vol] 26 U/L Normal 16-63 [facility] Comment on above: Performed By: #### P TT, PT #### [facility] [address] [place] [address] [address] Андрей Toledo Anion gap [Moles/Vol] 12.1 mmol/L Normal [facility] Comment on above: Performed By: #### P TT, PT #### [facility] [address] [place] [address] Dr. Андрей Toledo AST [Catalytic activity/Vol] 15 U/L Normal 15-37 [facility] Comment on above: Performed By: #### P TT, PT #### [facility] [address] [address] [address] Андрей Toledo Bilirubin [Mass/Vol] 0.4 mg/dL Normal 0.2-1.0 [facility] Comment on above: Performed By: #### P TT, PT #### [facility] [address] [place] [address] Dr. Андрей Toledo Calcium [Mass/Vol] 8.9 mg/dL Normal 8.5-10.1 [facility] Comment on above: Performed By: #### P TT, PT #### [facility] [address] [address] [address] Андрей Toledo Chloride [Moles/Vol] 103 mmol/L Normal 98-107 [facility] Comment on above: Performed By: #### P TT, PT #### [facility] [address] [address] [address] Андрей Toledo CO2 [Moles/Vol] 27.8 mmol/L Normal 21.0-32.0 [facility] Comment on above: Performed By: #### P TT, PT #### [facility] [address] [place] [address] Dr. Андрей Toledo Creatinine [Mass/Vol] 1.09 mg/dL Normal 0.70-1.30 [facility] Comment on above: Performed By: #### P TT, PT #### [facility] [address] [address] [address] Андрей Toledo EGFR-AF AUSTRIAN >60 Normal >=60 [facility] Comment on above: Performed By: #### P TT, PT #### [facility] [address] [place] [address] Dr. Андрей Toledo EGFR-NON AF AUSTRIAN >60 Normal >=60 [facility] Comment on above: Performed By: #### P TT, PT #### [facility] [address] [place] [address] Dr. Андрей Toledo Globulin (S) [Mass/Vol] 3.8 g/dL Normal [facility] Comment on above: Performed By: #### P TT, PT #### [facility] [address] [place] [address] Dr. Андрей Toledo Glucose [Mass/Vol] 206 mg/dL Critically high 74-106 [facility] Comment on above: Performed By: #### P TT, PT #### [facility] [address] [place] [address] Dr. Андрей Toledo Potassium [Moles/Vol] 4.9 mmol/L Normal 3.5-5.1 [facility] Comment on above: Performed By: #### P TT, PT #### [facility] [address] [place] [address] Dr. Андрйе Toledo Protein [Mass/Vol] 7.0 g/dL Normal 6.4-8.2 [facility] Comment on above: Performed By: #### P TT, PT #### [facility] [address] [place] [address] Dr. Андрей Toledo Sodium [Moles/Vol] 138 mmol/L Normal 136-145 [facility] Comment on above: Performed By: #### P TT, PT #### [facility] [address] [place] [address] Dr. Андрей Toledo Urea nitrogen [Mass/Vol] 25.0 mg/dL Critically high 7.0-18.0 [facility] Comment on above: Performed By: #### P TT, PT #### [facility] [address] [address] [address] Андрей Toledo Urea nitrogen/Creatinine [Mass ratio] 22.9 mg/mg Normal [facility] Comment on above: Performed By: #### P TT, PT #### [facility] [address] [address] [address] Андрей Toledo TSHon 02-01-2022 TSH 1.928 uIU/mL Normal 0.358-3.[address] [facility] Comment on above: Performed By: #### P TT, PT #### [facility] [address] [address] [address] Андрей Toledo TSH RANGE SEE BELOW Normal [facility] Comment on above: Result Comment: <0.3 4 UIU/ml HYPERTHYROID 0.34-5.60 UIU/ml EUTHYROID >5.60 UIU/ml HYPOTHYROID Performed By: #### P TT, PT #### [facility] [address] [address] [address] Андрей Toledo Vital Signs Date Time Vital Sign Value Performing Clinician Facility 04-08-2025 10:14040 Body height 173 cm Merline Fregoso APRN.CNP Work Phone: [facility] 04-08-2025 10:14040 Body mass index (BMI) [Ratio] 29.44 kg/m2 Merline Fregoso APRN.DIRECTOR CENTER Work Phone: [facility] 04-08-2025 10:14040 Body temperature 97.11 [degF] Merline Fregoso APRN.DIRECTOR CENTER Work Phone: [facility] 04-08-2025 10:14040 Body weight 88.1 kg Merline Fregoso APRN.DIRECTOR CENTER Work Phone: [facility] 04-08-2025 10:14-0400 Diastolic blood pressure 70 mm[Hg] Merline Cinda RESIDENTIAL ROOFER.DIRECTOR CENTER Work Phone: [facility] 04-08-2025 10:14-0400 Heart rate 86 /min Merline Cinda RESIDENTIAL ROOFER.DIRECTOR CENTER Work Phone: [facility] 04-08-2025 10:14-0400 Respiratory rate 18 /min Merline Cinda RESIDENTIAL ROOFER.DIRECTOR CENTER Work Phone: [facility] 04-08-2025 10:14-0400 SaO2% (BldA) [Mass fraction] 97 % Merline Cinda RESIDENTIAL ROOFER.DIRECTOR CENTER Work Phone: [facility] 04-08-2025 10:14-0400 Systolic blood pressure 119 mm[Hg] Merline Cinda RESIDENTIAL ROOFER.DIRECTOR CENTER Work Phone: [facility] 04-06-2025 14:11-0400 Body height 173 cm MARTITA Grant MD Work Phone: [facility] 04-06-2025 14:11-0400 Body mass index (BMI) [Ratio] 29.94 kg/m2 NA Rudy ELAINE Work Phone: [facility] 04-06-2025 14:11-0400 Body temperature 97.2 [degF] MARTITA Grant MD Work Phone: [facility] 04-06-2025 14:11-0400 Body weight 89.6 kg MARTITA Grant MD Work Phone: [facility] 04-06-2025 14:11-0400 Diastolic blood pressure 75 mm[Hg] MARTITA Grant MD Work Phone: [facility] 04-06-2025 14:11-0400 Heart rate 95 /min MARTITA Grant MD Work Phone: [facility] 04-06-2025 14:11-0400 Respiratory rate 16 /min MARTITA Grant MD Work Phone: [facility] 04-06-2025 14:11-0400 SaO2% (BldA) [Mass fraction] 96 % NA Engeler MD Work Phone: [facility] 04-06-2025 14:11-0400 Systolic blood pressure 115 mm[Hg] MARTITA Grant MD Work Phone: [facility] 03-30-2025 14:48-0400 Body mass index (BMI) [Ratio] 29.87 kg/m2 MARTITA Grant MD Work Phone: [facility] 03-30-2025 14:48-0400 Body temperature 97.39 [degF] MARTITA Grant MD Work Phone: [facility] 03-30-2025 14:48-0400 Body weight 89.4 kg MARTITA Grant MD Work Phone: [facility] 03-30-2025 14:48-0400 Diastolic blood pressure 74 mm[Hg] MARTITA Grant MD Work Phone: [facility] 03-30-2025 14:48-0400 Heart rate 99 /min MARTITA Grant MD Work Phone: [facility] 03-30-2025 14:48-0400 Respiratory rate 18 /min MARTITA Grant MD Work Phone: [facility] 03-30-2025 14:48-0400 SaO2% (BldA) [Mass fraction] 97 % MARTITA Grant MD Work Phone: [facility] 03-30-2025 14:48-0400 Systolic blood pressure 150 mm[Hg] MARTITA Grant MD Work Phone: [facility] 03-23-2025 17:00-0400 Body mass index (BMI) [Ratio] 30.07 kg/m2 MARTITA Grant MD Work Phone: [facility] 03-23-2025 17:00-0400 Body temperature 96.69 [degF] MARTITA Grant MD Work Phone: [facility] 03-23-2025 17:00-0400 Body weight 90 kg MARTITA Grant MD Work Phone: [facility] 03-23-2025 17:00-0400 Diastolic blood pressure 71 mm[Hg] MARTITA Grant MD Work Phone: [facility] 03-23-2025 17:00-0400 Heart rate 99 /min MARTITA Grant MD Work Phone: [facility] 03-23-2025 17:00-0400 Respiratory rate 18 /min MARTITA Grant MD Work Phone: [facility] 03-23-2025 17:00-0400 SaO2% (BldA) [Mass fraction] 96 % MARTITA Grant MD Work Phone: [facility] 03-23-2025 17:00-0400 Systolic blood pressure 116 mm[Hg] MARTITA Grant MD Work Phone: [facility] 03-18-2025 10:29-0400 Body height 173 cm Bekah Shawn PA-C Work Phone: [facility] 03-18-2025 10:29-0400 Body mass index (BMI) [Ratio] 30.24 kg/m2 Bekah Shawn PA-C Work Phone: [facility] 03-18-2025 10:29-0400 Body temperature 97.39 [degF] Bekah Shawn PA-C Work Phone: [facility] 03-18-2025 10:29-0400 Body weight 90.5 kg Bekah Shawn PA-C Work Phone: [facility] 03-18-2025 10:29-0400 Diastolic blood pressure 73 mm[Hg] Bekah Shawn PA-C Work Phone: [facility] 03-18-2025 10:29-0400 Heart rate 86 /min Bekah Shawn PA-C Work Phone: [facility] 03-18-2025 10:29-0400 Respiratory rate 18 /min Bekah Shawn PA-C Work Phone: [facility] 03-18-2025 10:29-0400 SaO2% (BldA) [Mass fraction] 97 % Bekah Reyeser PA-C Work Phone: [facility] 03-18-2025 10:29-0400 Systolic blood pressure 124 mm[Hg] Bekah Reyeser PA-C Work Phone: [facility] 03-16-2025 15:03-0400 Body height 173 cm MARTITA Grant MD Work Phone: [facility] 03-16-2025 15:03-0400 Body mass index (BMI) [Ratio] 30.14 kg/m2 MARTITA Grant MD Work Phone: [facility] 03-16-2025 15:03-0400 Body temperature 97 [degF] MARTITA Grant MD Work Phone: [facility] 03-16-2025 15:03-0400 Body weight 90.2 kg MARTITA Grant MD Work Phone: [facility] 03-16-2025 15:03-0400 Diastolic blood pressure 74 mm[Hg] MARTITA Grant MD Work Phone: [facility] 03-16-2025 15:03-0400 Heart rate 81 /min MARTITA Grant MD Work Phone: [facility] 03-16-2025 15:03-0400 Respiratory rate 18 /min MARTITA Grant MD Work Phone: [facility] 03-16-2025 15:03-0400 SaO2% (BldA) [Mass fraction] 97 % MARTITA Grant MD Work Phone: [facility] 03-16-2025 15:03-0400 Systolic blood pressure 152 mm[Hg] MARTITA Grant MD Work Phone: [facility] 03-11-2025 10:43-0400 Body height 173 cm Bekah Reyeser PA-C Work Phone: [facility] Comment on above: verified no shoes 03-11-2025 10:43-0400 Body mass index (BMI) [Ratio] 30.37 kg/m2 Bekah Shawn PA-C Work Phone: [facility] 03-11-2025 10:43-0400 Body temperature 97.7 [degF] Bekah Shawn PA-C Work Phone: [facility] 03-11-2025 10:43-0400 Body weight 90.9 kg Bekah Shawn PA-C Work Phone: [facility] 03-11-2025 10:43-0400 Diastolic blood pressure 70 mm[Hg] Bekah Sahwn PA-C Work Phone: [facility] 03-11-2025 10:43-0400 Heart rate 75 /min Bekah Shawn PA-C Work Phone: [facility] 03-11-2025 10:43-0400 Respiratory rate 18 /min Bekah Shawn PA-C Work Phone: [facility] 03-11-2025 10:43-0400 SaO2% (BldA) [Mass fraction] 97 % Bekah Shawn PA-C Work Phone: [facility] 03-11-2025 10:43-0400 Systolic blood pressure 140 mm[Hg] Bekah Shawn PA-C Work Phone: [facility] 02-19-2025 10:17-0400 Body height 172.7 cm Gonzalo Ricks MD Work Phone: [facility] 02-19-2025 10:17-0400 Body mass index (BMI) [Ratio] 30.41 kg/m2 Gonzalo Ricks MD Work Phone: [facility] 02-19-2025 10:17-0400 Body weight 90.72 kg Gonzalo Ricks MD Work Phone: [facility] 02-19-2025 10:17-0400 Diastolic blood pressure 83 mm[Hg] Gonzalo Ricks MD Work Phone: [facility] 02-19-2025 10:17-0400 Heart rate 73 /min Gonzalo Ricks MD Work Phone: [facility] 02-19-2025 10:17-0400 SaO2% (BldA) [Mass fraction] 96 % Gonzalo Ricks MD Work Phone: [facility] 02-19-2025 10:17-0400 Systolic blood pressure 134 mm[Hg] Gonzalo Ricks MD Work Phone: [facility] 01-30-2025 11:24-0400 Body mass index (BMI) [Ratio] 30.47 kg/m2 Chandan Burgos MD Work Phone: [facility] 01-30-2025 11:24-0400 Body temperature 97.9 [degF] Chandan Burgos MD Work Phone: [facility] 01-30-2025 11:24-0400 Body weight 90.9 kg Chandan Burgos MD Work Phone: [facility] 01-30-2025 11:24-0400 Diastolic blood pressure 74 mm[Hg] Chandan Burgos MD Work Phone: [facility] 01-30-2025 11:24-0400 Heart rate 73 /min Chandan Burgos MD Work Phone: [facility] 01-30-2025 11:24-0400 Respiratory rate 18 /min Chandan Burgos MD Work Phone: [facility] 01-30-2025 11:24-0400 SaO2% (BldA) [Mass fraction] 96 % Chandan Burgos MD Work Phone: [facility] 01-30-2025 11:24-0400 Systolic blood pressure 124 mm[Hg] Chandan Burgos MD Work Phone: [facility] 01-27-2025 08:55-0400 Body height 172.7 cm MARTITA Grant MD Work Phone: [facility] 01-27-2025 08:55-0400 Body mass index (BMI) [Ratio] 30.17 kg/m2 MARTITA Grant MD Work Phone: [facility] 01-27-2025 08:55-0400 Body temperature 96.91 [degF] MARTITA Grant MD Work Phone: [facility] 01-27-2025 08:55-0400 Body weight 90 kg MARTITA Grant MD Work Phone: [facility] 01-27-2025 08:55-0400 Diastolic blood pressure 76 mm[Hg] MARTITA Grant MD Work Phone: [facility] 01-27-2025 08:55-0400 Heart rate 98 /min MARTITA Grant MD Work Phone: [facility] 01-27-2025 08:55-0400 Respiratory rate 18 /min MARTITA Grant MD Work Phone: [facility] [facility] 01-27-2025 08:55-0400 SaO2% (BldA) [Mass fraction] 99 % MARTITA Grant MD Work Phone: [facility] 01-27-2025 08:55-0400 Systolic blood pressure 122 mm[Hg] MARTITA Grant MD Work Phone: [facility] 01-07-2025 11:01-0400 Body height 180.3 cm Austin Jarquin MD Work Phone: [facility] 01-07-2025 11:01-0400 Body mass index (BMI) [Ratio] 27.89 kg/m2 Austin Jarquin MD Work Phone: [facility] 01-07-2025 11:01-0400 Body weight 90.72 kg Austin Jarquin MD Work Phone: [facility] 01-07-2025 11:01-0400 Diastolic blood pressure 74 mm[Hg] Austin Jarquin MD Work Phone: [facility] 01-07-2025 11:01-0400 Heart rate 74 /min Austin Jarquin MD Work Phone: [facility] 01-07-2025 11:01-0400 Systolic blood pressure 117 mm[Hg] Austin Jarquin MD Work Phone: [facility] 12-17-2024 10:47-0400 Body height 180.3 cm Austin Jarquin MD Work Phone: [facility] 12-17-2024 10:47-0400 Body mass index (BMI) [Ratio] 27.89 kg/m2 Austin Jarquin MD Work Phone: [facility] 12-17-2024 10:47-0400 Body weight 90.72 kg Austin Jarquin MD Work Phone: [facility] 12-17-2024 10:47-0400 Diastolic blood pressure 77 mm[Hg] Austin Jarquin MD Work Phone: [facility] 12-17-2024 10:47-0400 Heart rate 80 /min Austin Jarquin MD Work Phone: [facility] 12-17-2024 10:47-0400 Systolic blood pressure 135 mm[Hg] Austin Jarquin MD Work Phone: [facility] Healthcare Encounters Encounter Date Encounter Type Care Provider Facility Start: 04-10-2025 End: 04-10-2025 ambulatory [facility] Facility:[facility] Start: 04-09-2025 End: 04-09-2025 [facility] Facility:[facility] Start: 04-08-2025 End: 04-08-2025 Office outpatient visit 25 minutes Merline Fregoso APRN.CNP Work Phone: Hematology/Oncology Comment on above: 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); Malignant neoplasm of unspecified part of unspecified bronchus or lung (HCC); Head and neck cancer (HCC); Encounter for antineoplastic chemotherapy; Chemotherapy-induced fatigue; Thrombocytopenia; Constipation, unspecified constipation type; Neoplastic (malignant) related fatigue; Dehydration Start: 04-08-2025 End: 04-08-2025 ambulatory Chair 10 Isela Work Phone: Hematology/Oncology Comment on above: 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) Start: 04-07-2025 End: 04-07-2025 ambulatory FAUSTO M HOY Facility:[facility] Start: 04-06-2025 End: 04-06-2025 Patient encounter procedure Gisella Grant MD Work Phone: Radiation Oncology Comment on above: Head and neck cancer (HCC) (Primary Dx) Start: 04-06-2025 End: 04-06-2025 ambulatory Gisella GRANT Facility:[facility] Start: 04-03-2025 End: 04-03-2025 ambulatory FAUSTO M HOY Facility:[facility] Start: 04-02-2025 End: 04-02-2025 ambulatory FAUSTO M HOY Facility:[facility] Start: 04-01-2025 End: 04-01-2025 ambulatory CHANDAN ABHYANKAR Facility:[facility] Start: 04-01-2025 End: 04-01-2025 ambulatory CHANDAN ABHYANKAR Facility:[facility] Start: 03-31-2025 End: 03-31-2025 ambulatory FAUSTO M HOY Facility:[facility] Start: 03-30-2025 End: 03-30-2025 Patient encounter procedure Gisella Grant MD Work Phone: Radiation Oncology Comment on above: Head and neck cancer (HCC) (Primary Dx) Start: 03-30-2025 End: 03-30-2025 ambulatory Gisella GRANT Facility:[facility] Start: 03-27-2025 End: 03-27-2025 ambulatory FAUSTO M HOY Facility:[facility] Start: 03-26-2025 End: 03-26-2025 ambulatory FAUSTO M HOY Facility:[facility] Start: 03-25-2025 End: 03-25-2025 Social Work Jeanette LORENZW Hematology/Oncology Comment on above: Head and neck cancer (HCC) (Primary Dx); 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) Start: 03-24-2025 End: 03-24-2025 ambulatory FAUSTO M HOY Facility:[facility] Start: 03-23-2025 End: 03-23-2025 Patient encounter procedure Gisella Grant MD Work Phone: Radiation Oncology Comment on above: Head and neck cancer (HCC) (Primary Dx) Start: 03-23-2025 End: 03-23-2025 ambulatory FAUSTO M HOY Facility:[facility] Start: 03-20-2025 End: 03-20-2025 ambulatory FAUSTO M HOY Facility:[facility] Start: 03-19-2025 End: 03-19-2025 ambulatory FAUSTO M HOY Facility:[facility] Start: 03-18-2025 End: 03-18-2025 ambulatory CHANDAN ABHYANKAR Facility:[facility] Start: 03-18-2025 End: 03-18-2025 Office outpatient visit 25 minutes Bekah Perdomo PA-C Work Phone: Hematology/Oncology Comment on above: 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) Start: 03-18-2025 End: 03-19-2025 ambulatory Chair Sydnie Weiss Work Phone: Hematology/Oncology Comment on above: Head and neck cancer (HCC) (Primary Dx); 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) Start: 03-18-2025 End: 03-18-2025 ambulatory CHANDAN ABHYANKAR Facility:[facility] Start: 03-17-2025 End: 03-17-2025 ambulatory FAUSTO JUAREZ Facility:[facility] Start: 03-16-2025 End: 03-16-2025 Patient encounter procedure Gisella Grant MD Work Phone: Radiation Oncology Comment on above: Head and neck cancer (HCC) (Primary Dx) Start: 03-16-2025 End: 03-16-2025 ambulatory Gisella GRANT Facility:[facility] Start: 03-16-2025 End: 03-16-2025 Telephone encounter Vladimir Finley RN Work Phone: Hematology/Oncology Comment on above: Care Coordination (C 1D1 Post Treatment Call) Start: 03-13-2025 End: 03-13-2025 ambulatory FAUSTO JUAREZ Facility:[facility] Start: 03-12-2025 End: 03-12-2025 ambulatory FAUSTO JUAREZ Facility:[facility] Start: 03-11-2025 End: 03-11-2025 Patient encounter procedure Gisella Grant MD Work Phone: Radiation Oncology Comment on above: Head and neck cancer (HCC) (Primary Dx) Start: 03-11-2025 End: 03-11-2025 ambulatory Gisella GRANT Facility:[facility] Start: 03-11-2025 End: 03-11-2025 Office outpatient visit 25 minutes Bekah Perdomo PA-C Work Phone: Hematology/Oncology Comment on above: 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); Type 2 diabetes mellitus without complication, unspecified whether jail insulin use (HCC) Start: 03-11-2025 End: 03-11-2025 ambulatory Barrie Weiss Work Phone: Hematology/Oncology Comment on above: Head and neck cancer (HCC) (Primary Dx); 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) Start: 03-04-2025 End: 03-04-2025 Patient encounter procedure [facility] Provider [facility] Department Start: 03-03-2025 End: 03-11-2025 Radiation Oncology Note Gisella Grant MD Work Phone: Radiation Oncology Comment on above: Simulation Note Treatment Planning Start: 03-03-2025 End: 03-11-2025 Patient encounter procedure Gisella Grant MD Work Phone: Radiation Oncology Comment on above: Head and neck cancer (HCC) (Primary Dx) Start: 03-03-2025 End: 03-03-2025 Nursing evaluation of patient and report Vladimir Finley RN Work Phone: Hematology/Oncology Comment on above: Encounter for educat ion (Primary Dx) Refill Request (Zofr an & Compazine) Head and neck cancer (HCC) (Primary Dx) Start: 03-03-2025 End: 03-04-2025 ambulatory Vladimir Finley RN Work Phone: Hematology/Oncology Comment on above: First Time Treatment Education (Cisplatin) Start: 02-24-2025 End: 02-24-2025 ambulatory GONZALO RICKS Facility:[facility] Start: 02-19-2025 End: 02-19-2025 Patient encounter procedure Gonzalo Ricks MD Work Phone: Pulmonology Comment on above: Adenopathy (Primary Dx); Head and neck cancer (HCC); Type 2 diabetes mellitus without complication, unspecified whether terminal manager insulin use (HCC); Presence of aortocoronary bypass graft Start: 02-19-2025 End: 02-19-2025 ambulatory GONZALO RICKS Facility:[facility] Start: 02-17-2025 End: 02-23-2025 Telephone encounter Gonzalo Ricks MD Work Phone: Pulmonology Comment on above: to Start: 02-13-2025 End: 02-13-2025 ambulatory Pete Govea RN Pulmonology Start: 02-13-2025 End: 02-13-2025 E-mail encounter from caregiver Pete Govea RN Pulmonology Start: 02-13-2025 End: 02-13-2025 Telephone encounter Pete Govea RN Pulmonology Start: 02-12-2025 End: 02-12-2025 ambulatory Faustokiana Nogueraandreas Facility:[facility] Start: 02-10-2025 End: 02-12-2025 Telephone encounter Gisella Grant MD Work Phone: Radiation Oncology Comment on above: Future Appointment ( Schedule Simulation) Start: 02-09-2025 End: 02-09-[address] Work Phone: Hematology/Oncology Start: 02-09-2025 End: 02-09-2025 Nutrition therapy Shirley Qiu RD Work Phone: Hematology/Oncology Comment on above: Nutrition Assessment Start: 02-09-2025 End: 02-09-2025 [facility] Start: 02-05-2025 End: 02-05-2025 Patient encounter procedure [facility] Provider [facility] Start: 02-05-2025 End: 02-05-2025 Telephone encounter [facility] Start: 02-05-2025 End: 02-05-2025 Office outpatient visit 25 minutes Gisella Grant MD Work Phone: Radiation Oncology Comment on above: Head and neck cancer (HCC) (Primary Dx); Lung nodule Start: 02-05-2025 End: 02-05-2025 ambulatory Gonzalo Ricks MD Work Phone: [facility] Provider Adult Comment on above: Bronchoscopy Schedul ing Start: 02-03-2025 End: 02-03-2025 Telephone encounter Vladimir Finley RN Work Phone: Hematology/Oncology Comment on above: Care Coordination (A ntiemetics) Start: 01-30-2025 End: 02-06-2025 Telephone encounter Chandan Burgos MD Work Phone: Cancer [facility] Comment on above: Appointment Start: 01-30-2025 End: 01-30-2025 ambulatory Gisella GRANT Facility:[facility] Start: 01-30-2025 End: 01-30-2025 Office outpatient new 60 minutes Chandan Burgos MD Work Phone: Hematology/Oncology Comment on above: Head and neck cancer (HCC); 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); Personal history of nicotine dependence; Presence of aortocoronary bypass graft; Type 2 diabetes mellitus without complication, unspecified whether jail insulin use (HCC) Start: 01-30-2025 End: 01-30-2025 ambulatory Gisella GRANT Facility:[facility] Start: 01-28-2025 End: 01-28-2025 ambulatory Gisella GRANT Facility:[facility] Start: 01-28-2025 End: 01-28-2025 Subsequent hospital visit by physician Arrival Time Radiology Work Phone: Radiology Pet CT Comment on above: Head and neck cancer (HCC) [C76.0] Start: 01-27-2025 End: 02-03-2025 Telephone encounter Gisella Grant MD Work Phone: Radiation Oncology Comment on above: Appointment Start: 01-27-2025 End: 01-27-2025 Office outpatient new 45 minutes Gisella Glenn Grant MD Work Phone: Radiation Oncology Comment on above: Head and neck cancer (HCC) (Primary Dx) Start: 01-27-2025 End: 01-27-2025 ambulatory Nadine Powell RN Radiation Oncology Comment on above: Patient Education Start: 01-26-2025 End: 01-26-2025 Chart abstracting Xiomara Wilkins RN Work Phone: Hematology/Oncology Comment on above: Research (Prescreen) Start: 01-07-2025 End: 01-07-2025 Bamelaineo flowsheet Austin Jarquin MD Work Phone: [facility] Start: 01-07-2025 End: 01-07-2025 Bamboo flowsheet Austin Jarquin MD Work Phone: [facility] Start: 01-07-2025 End: 01-07-2025 Patient encounter procedure Austin Jarquin MD Work Phone: [facility] Comment on above: Cancer of true vocal cord (Primary Dx) Start: 01-07-2025 End: 01-07-2025 ambulatory AUSTIN JARQUIN Not Available Start: 01-01-2025 End: 01-06-2025 External Result Encounter Austin Jarquin MD Work Phone: [facility] External [facility] Unsolicited Start: 01-01-2025 End: 01-06-2025 External Result Encounter Austin Jarquin MD Work Phone: [facility] External [facility] Unsolicited Start: 01-01-2025 End: 01-01-2025 ambulatory Austin Jarquin Jr [facility] Work Phone: Start: 01-01-2025 End: 01-01-2025 Departed Referred Austin Jarquin MD [facility] Start: 12-19-2024 End: 12-19-2024 Clinisync Result Encounter Austin Jarquin MD Work Phone: [facility] External [facility] Unsolicited Start: 12-19-2024 End: 12-19-2024 Clinisync Result Encounter Austin Jarquin MD Work Phone: [facility] Unsolicited Start: 12-17-2024 End: 12-17-2024 Bamboo flowsheet Austin Jarquin MD Work Phone: [facility] Start: 12-17-2024 End: 12-17-2024 Bamboo flowsheet Austin Jarquin MD Work Phone: [facility] Start: 12-17-2024 End: 12-17-2024 Office outpatient new 45 minutes Austin Jarquin MD Work Phone: [facility] Comment on above: Vocal cord mass (Poppy gunjan Dx); Hoarse Start: 12-17-2024 End: 12-17-2024 ambulatory AUSTIN JARQUIN Not Available Start: 10-31-2024 End: 10-31-2024 ambulatory [facility] Start: 05-16-2024 End: 05-16-2024 ambulatory KEENAN [facility] Start: 01-08-2023 End: 01-09-[address] FAUSTO JUAREZ . Facility: Start: 02-01-2022 End: 02-02-[address] FAUSTO JUAREZ . Facility:[facility] Procedures Date Procedure Procedure Detail Performing Clinician Start: 01-28-2025 Gluc bld gluc mntr d ev cleared fda spec home use [facility] Provider Start: 01-01-2025 PATHOLOGY REQUEST FO R LAB GREGG Austin Jarquin MD Work Phone: Start: 12-19-2024 XR CHEST 2V Austin peoples MD Work Phone: Start: 12-19-2024 ECG 12-LEAD Austin peoples MD Work Phone: Plan of Treatment Date Care Activity Detail Author Start: 04-08-2028 Diabetes Screening Diabetes Screenin gisella [facility] Start: 04-01-2028 Diabetes Screening Diabetes Screenin g [facility] Start: 03-25-2028 Diabetes Screening Diabetes Screenin g [facility] Start: 03-18-2028 Diabetes Screening Diabetes Screenin g [facility] Start: 03-11-2028 Diabetes Screening Diabetes Screenin g [facility] Start: 01-31-2028 Diabetes Screening Diabetes Screenin g [facility] Start: 01-23-2026 Diabetes Screening Diabetes Screenin g [facility] Start: 04-29-2025 End: 04-29-2025 Patient encounter procedure Radiation Oncology Comment on above: head/neck Location: [facility] Start: 04-28-2025 End: 04-28-2025 Patient encounter procedure 04/28/2025 1:45 PM EDT Appointment Radiation Oncology [address] [facility] [place] [address] head/neck Radiation Oncology Comment on above: head/neck Start: 04-27-2025 Influenza vaccination [facility] Start: 04-24-2025 End: 04-24-2025 Patient encounter procedure 04/24/2025 1:45 PM EDT Appointment Radiation Oncology [address] [facility] [place] [address] head/neck Radiation Oncology Comment on above: head/neck Start: 04-23-2025 End: 04-23-2025 Patient encounter procedure 04/23/2025 1:45 PM EDT Appointment Radiation Oncology [address] [facility] [place] [address] head/neck Radiation Oncology Comment on above: head/neck Start: 04-22-2025 End: 04-22-2025 Patient encounter procedure Radiation Oncology Comment on above: head/neck Location: [facility] Start: 04-21-2025 End: 04-21-2025 Patient encounter procedure 04/21/2025 1:45 PM EDT Appointment Radiation Oncology [address] [facility] [place] [address] head/neck Radiation Oncology Comment on above: head/neck Start: 04-20-2025 End: 04-20-2025 Patient encounter procedure Radiation Oncology Comment on above: head/neck Location: [facility] Start: 04-17-2025 End: 04-17-2025 Patient encounter procedure 04/17/2025 1:45 PM EDT Appointment Radiation Oncology [address] [place] [address] head/neck Radiation Oncology Comment on above: head/neck Start: 04-16-2025 End: 04-16-2025 Patient encounter procedure 04/16/2025 1:45 PM EDT Appointment Radiation Oncology [address] [place] [address] head/neck Radiation Oncology Comment on above: head/neck Start: 04-15-2025 End: 04-15-2025 Patient encounter procedure Radiation Oncology Comment on above: head/neck Location: [facility] Start: 04-15-2025 End: 04-15-2025 Follow-up encounter Hematology/Oncology Comment on above: lab follow up and Ci splatin Start: 04-15-2025 End: 04-15-2025 Patient encounter procedure 04/15/2025 10:15 AM EDT Office Visit [facility] [address] [place] [address] lab follow up and Cisplatin [facility] Comment on above: lab follow up and Ci splatin Start: 04-14-2025 End: 04-14-2025 Patient encounter procedure 04/14/2025 1:45 PM EDT Appointment Radiation Oncology [address] [place] [address] head/neck Radiation Oncology Comment on above: head/neck Start: 04-13-2025 End: 04-13-2025 Patient encounter procedure Radiation Oncology Comment on above: head/neck Location: [facility] Start: 04-10-2025 End: 04-10-2025 Patient encounter procedure 04/10/2025 1:45 PM EDT Appointment Radiation Oncology [address] [place] [address] head/neck Radiation Oncology Comment on above: head/neck Start: 04-09-2025 End: 04-09-2025 Patient encounter procedure 04/09/2025 1:45 PM EDT Appointment Radiation Oncology [address] [place] [address] head/neck Radiation Oncology Comment on above: head/neck Start: 04-08-2025 End: 04-08-2025 Patient encounter procedure Radiation Oncology Comment on above: head/neck Location: [facility] head/neck- chemo at 11 Start: 04-08-2025 End: 04-08-2025 Follow-up encounter 04/08/2025 11:00 AM EDT Infusion Center Hematology/Oncology [address] [place] [address] lab follow up and Cisplatin Hematology/Oncology Comment on above: lab follow up and Ci splatin Start: 04-07-2025 End: 04-07-2025 Patient encounter procedure 04/07/2025 1:45 PM EDT Appointment Radiation Oncology [address] [place] [address] head/neck Radiation Oncology Comment on above: head/neck Start: 04-06-2025 End: 04-06-2025 Patient encounter procedure Radiation Oncology Comment on above: head/neck Location: [facility] Start: 04-03-2025 End: 04-03-2025 Patient encounter procedure 04/03/2025 2:00 PM EDT Appointment Radiation Oncology [address] [place] [address] head/neck Radiation Oncology Comment on above: head/neck Start: 04-02-2025 End: 04-02-2025 Patient encounter procedure 04/02/2025 1:45 PM EDT Appointment Radiation Oncology [address] [place] [address] head/neck Radiation Oncology Comment on above: head/neck Start: 04-01-2025 End: 04-01-2025 Patient encounter procedure Radiation Oncology Comment on above: head/neck Location: [facility] head/neck- chemo at 845, doesnt want to come before Start: 04-01-2025 End: 04-01-2025 ambulatory 04/01/2025 8:30 AM EDT Infusion Center Hematology/Oncology [address] [place] [address] Cisplatin - date/time per [facility] Hematology/Oncology Comment on above: Cisplatin - date/jim e per [facility] Start: 03-31-2025 End: 03-31-2025 Patient encounter procedure 03/31/2025 1:45 PM EDT Appointment Radiation Oncology [address] [place] [address] head/neck Radiation Oncology Comment on above: head/neck Start: 03-30-2025 End: 03-30-2025 Patient encounter procedure Radiation Oncology Comment on above: head/neck Location: [facility] Start: 03-27-2025 End: 03-27-2025 Patient encounter procedure 03/27/2025 2:00 PM EDT Appointment Radiation Oncology [address] [place] [address] head/neck Radiation Oncology Comment on above: head/neck Start: 03-26-2025 End: 03-26-2025 Patient encounter procedure 03/26/2025 1:45 PM EDT Appointment Radiation Oncology [address] 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) Expected: 03/25/2025 (Approximate), Expires: 06/24/2025 [facility] Work Phone: Comment on above: Expected: 03/25/2025 (Approximate), Expires: 06/24/2025 Start: 03-25-2025 End: 06-24-2025 Magnesium [Mass/volume] in Serum or Plasma MAGNESIUM Lab Routine 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) Expected: 03/25/2025 (Approximate), Expires: 06/24/2025 [facility] Comment on above: Expected: 03/25/2025 (Approximate), Expires: 06/24/2025 Start: 03-25-2025 End: 03-25-2025 Follow-up encounter Hematology/Oncology Comment on above: lab follow up and Ci splatin Start: 03-25-2025 End: 03-25-2025 Patient encounter procedure Radiation Oncology Comment on above: Location: [facility] head/neck lab follow up and Ci splatin Start: 03-24-2025 End: 03-24-2025 Patient encounter procedure 03/24/2025 1:45 PM EDT Appointment Radiation Oncology [address] [facility] [facility] [place] [address] head/neck Radiation Oncology Comment on above: head/neck Start: 03-23-2025 End: 03-23-2025 Patient encounter procedure Radiation Oncology Comment on above: head/neck Location: [facility] Start: 03-20-2025 End: 03-20-2025 Patient encounter procedure 03/20/2025 1:45 PM EDT Appointment Radiation Oncology [address] [facility] [facility] [place] [address] head/neck Radiation Oncology Comment on above: head/neck Start: 03-19-2025 End: 03-19-2025 Patient encounter procedure 03/19/2025 1:45 PM EDT Appointment Radiation Oncology [address] [place] [address] head/neck Radiation Oncology Comment on above: head/neck Start: 03-18-2025 End: 03-18-2025 Patient encounter procedure 03/18/2025 1:45 PM EDT Appointment Radiation Oncology [address] [facility] [place] [address] head/neck Radiation Oncology Comment on above: head/neck Start: 03-18-2025 End: 03-18-2025 Follow-up encounter Hematology/Oncology Comment on above: lab follow up and Ci splatin Start: 03-18-2025 End: 03-18-2025 Patient encounter procedure [facility] Comment on above: lab follow up and Ci splatin Location: [facility] Start: 03-17-2025 End: 03-17-2025 Patient encounter procedure 03/17/2025 1:45 PM EDT Appointment Radiation Oncology [address] [place] [address] head/neck Radiation Oncology Comment on above: head/neck Start: 03-16-2025 End: 03-16-2025 Patient encounter procedure 03/16/2025 2:30 PM EDT Appointment Radiation Oncology [address] [place] [address] head/neck Radiation Oncology Comment on above: head/neck Start: 03-13-2025 End: 03-13-2025 Patient encounter procedure 03/13/2025 2:00 PM EDT Appointment Radiation Oncology [address] [facility] [place] [place] [address] head/neck Radiation Oncology Comment on above: head/neck Start: 03-12-2025 End: 03-12-2025 Patient encounter procedure 03/12/2025 1:15 PM EDT Appointment Radiation Oncology [address] [place] [address] head/neck Radiation Oncology Comment on above: head/neck Start: 03-11-2025 End: 03-11-2025 Patient encounter procedure 03/11/2025 3:15 PM EDT Appointment Radiation Oncology [address] [place] [address] Gisella Grant MD [address] 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) Expected: 03/11/2025, Expires: 06/10/2025 [facility] Work Phone: Comment on above: Expected: 03/11/2025 , Expires: 06/10/2025 Start: 03-11-2025 End: 06-10-2025 Magnesium [Mass/volume] in Serum or Plasma MAGNESIUM Lab Routine 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) Expected: 03/11/2025, Expires: 06/10/2025 [facility] Comment on above: Expected: 03/11/2025 , Expires: 06/10/2025 Start: 03-11-2025 End: 03-11-2025 Follow-up encounter Hematology/Oncology Comment on above: lab follow up and Ci splatin Start: 03-11-2025 End: 03-11-2025 Patient encounter procedure [facility] Comment on above: lab follow up and Ci splatin [place], HEAD/NECK Start: 03-03-2025 End: 03-03-2025 Patient encounter procedure Radiation Oncology Comment on above: Pre SIM H\T\N/ IV CO NTRAST SIM- H\T\N/ IV CONTR AST/ NEEDS CONSENT Start: 03-03-2025 End: 03-03-2025 Nursing evaluation of patient and report Radiation Oncology Comment on above: IV Start Chemo Ed Start: 02-24-2025 End: 02-24-2025 Admission to same day surgery center [facility] Endoscopy - ENDO Comment on above: BRONCHOSCOPY,RIGID/F LEXIBLE W/ FLUORO,W/ENDOBRONCHIAL ULTRASOUND (EBUS) GUIDED TRANSTRACHEAL/ TRANSBRONCHIAL ASPIRATION/BIOPSY,1 OR 2 MEDIASTINAL AND/OR HILAR LYMPH NODE STATIONS/STRUCTURES Start: 02-24-2025 End: 02-24-2025 [facility] ebus guided sampl 1/2 node station/strux [facility] Start: 02-24-2025 Subsequent hospital visit by physician [facility] Endoscopy - ENDO Comment on above: Adenopathy [R59.9] Start: 02-19-2025 End: 02-19-2025 Patient encounter procedure 02/19/2025 10:30 AM EDT Office Visit Pulmonology [address] [place] [address] Gonzalo Ricks MD [address] [place] [address] Pre Bronch per [facility] Comment on above: Pre Bronch per [facility] Start: 02-09-2025 End: 02-09-2025 Patient encounter procedure 02/09/2025 9:45 AM EDT Education Hematology/Oncology [address] [place] [address] Shirley Qiu, RD [address] [id number] Nutrition consult Hematology/Oncology Comment on above: Nutrition consult Start: 02-05-2025 End: 02-05-2025 Nursing evaluation of patient and report Radiation Oncology Comment on above: Nurse Visit CISPLATIN/CARBO Start: 02-05-2025 End: 02-05-2025 Patient encounter procedure Radiation Oncology Comment on above: SIM Neck IV contrast mask, consent needed Pre Sim Consent Start: 01-30-2025 End: 01-30-2025 ambulatory 01/30/2025 11:00 AM EDT Visit (SP) Office Hematology/Oncology [address] [place] [address] [place] [address] Chandan Burgos MD [address] [address] Grant Head and neck cancer Hematology/Oncology Comment on above: referred by Dr. Muna eden Head and neck cancer Start: 01-28-2025 End: 01-28-2025 Patient encounter procedure 01/28/2025 1:30 PM EDT Appointment Radiology Pet CT [address] [facility] [place] [address] PET with lab Radiology Pet CT Comment on above: PET with lab Start: 01-27-2025 End: 01-27-2025 Patient encounter procedure 01/27/2025 9:00 AM EDT Office Visit Radiation Oncology [address] [facility] [place] [address] Gisella Grant MD [address] 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] Radiation Oncology Comment on above: DX Cancer of true vo matt cord (HCC) [C32.0] Start: 01-13-2025 End: 01-13-2025 Patient encounter procedure 01/13/2025 11:10 AM EDT Office Visit [facility] [address] [place] [address] Austin Jarquin MD [address] [place] [address] [facility] Start: 01-07-2025 End: 01-07-2025 Patient encounter procedure [facility] Comment on above: Arrived Start: 01-01-2025 [facility] Start: 12-17-2024 End: 12-17-2024 Patient encounter procedure 12/17/2024 10:50 AM EDT Office Visit [facility] [address] [place] [address] Austin Jarquin MD [address] [place] [address] Arrived [facility] Comment on above: Arrived Start: 08-29-2024 Covid-19 Vaccine ( season) Covid-19 Vaccine ( season) [facility] Start: 08-27-2024 Advance Directive Discussion Advance Directive Discussion [facility] Start: 04-27-2024 Covid-19 Vaccine ( season) Covid-19 Vaccine ( season) [facility] Start: 05-22-2018 Pneumococcal Vaccine : 50+ (2 of 2 - PPSV23) Pneumococcal Vaccine: 50+ (2 of 2 - PPSV23) [facility] Start: 05-22-2018 Pneumococcal Vaccine : 65+ Years (2 of 2 - PPSV23) Pneumococcal Vaccine: 65+ Years (2 of 2 - PPSV23) [facility] Start: 07-17-2017 Pneumococcal Vaccine : 50+ (2 of 2 - PPSV23) Pneumococcal Vaccine: 50+ (2 of 2 - PPSV23) [facility] Start: 07-17-2017 Pneumococcal Vaccine : 50+ (2 of 2 - PPSV23, PCV20, or PCV21) Pneumococcal Vaccine: 50+ (2 of 2 - PPSV23, PCV20, or PCV21) [facility] Start: 2016 RSV Vaccine (1 - 1-d ose 75+ series) RSV Vaccine (1 - 1-dose 75+ series) [facility] Start: 07-27-2006 Medicare Annual Well ness Visit Medicare Annual Wellness Visit [facility] Start: 1991 Pneumococcal Vaccine : 50+ (1 of 1 - PCV) Pneumococcal Vaccine: 50+ (1 of 1 - PCV) [facility] Start: 1991 Shingrix Vaccine (1 of 2) Shingrix Vaccine (1 of 2) [facility] Start: 1960 Shingrix Vaccine (1 of 2) Shingrix Vaccine (1 of 2) [facility] Start: 1960 Urine microalbumin profile DTaP,Tdap,Td Vaccine (1 - Tdap) [facility] Start: 1959 Anxiety Screening Anxiety Screening [facility] Start: 1959 Depression Screening Depression Scre ening [facility] End: 01-30-2026 CBC W Auto Differential panel - Blood COMPLETE BLOOD COUNT AND DIFFERENTIAL Lab Routine Head and neck cancer (HCC) Once per week for 10 Occurrences starting 01/30/2025 until 01/30/2026, 1 completed [facility] Work Phone: Comment on above: Once per week for 10 Occurrences starting 01/30/2025 until 01/30/2026, 1 completed End: 01-30-2026 Comprehensive metabolic 2000 panel - Serum or Plasma COMPREHENSIVE METABOLIC PANEL Lab Routine Head and neck cancer (HCC) Once per week for 10 Occurrences starting 01/30/2025 until 01/30/2026, 1 completed [facility] Comment on above: Once per week for 10 Occurrences starting 01/30/2025 until 01/30/2026, [address] Guidance for radiation treatment of Unspecified body region CT SIM PLANNING RADIATION ONCOLOGY Radiology Routine Head and neck cancer (HCC) Ordered: 03/03/2025 [facility] Work Phone: Comment on above: Ordered: 03/03/2025 End: 02-05-2026 ECG COMPLETE ECG COMPLETE ECG Routine Adenopathy 1 Occurrences starting 02/05/2025 until 02/05/2026 [facility] Work Phone: Comment on above: 1 Occurrences starti ng 02/05/2025 until 02/05/2026 PET+CT Guidance for localization of tumor of Skull base to mid-thigh-- W [id number] IV NM PET/CT SKULL-THIGH INITIAL Radiology Routine Head and neck cancer (HCC) 01/28/2025 3:23 PM EDT [facility] Work Phone: Immunizations Immunization Date Immunization Notes Care Provider Fa cili 07-04-2024 COVID-19 vaccine, ag e 6 mo - 11 yr (MODERNA) Vladimir Finley RN Work Phone: [facility] 07-02-2024 Seasonal trivalent influenza vaccine, adjuvanted, preservative free MARTITA Grant MD Work Phone: [facility] 07-02-2024 influenza virus vacc ine, unspecified formulation MARTITA Grant MD Work Phone: [facility] 06-27-2023 influenza (aIIV4) vaccine, age 65+ yr, quadrivalent, PF (FLUAD QUAD) MARTITA Grant MD Work Phone: [facility] 08-09-2022 influenza (aIIV4) vaccine, age 65+ yr, quadrivalent, PF (FLUAD QUAD) Vladimir Finley RN Work Phone: [facility] 08-09-2022 influenza virus vacc ine, unspecified formulation Austin Jarquin MD Work Phone: [facility] 05-28-2022 influenza, high dose seasonal, preservative-free Vladimir Finley RN Work Phone: [facility] 08-04-2021 unknown vaccine or immune globulin Vladimir Finley RN Work Phone: [facility] 07-07-2020 Seasonal trivalent influenza vaccine, adjuvanted, preservative free Vladimir Finley RN Work Phone: [facility] 05-22-2017 influenza, high dose seasonal, preservative-free Vladimir Finley RN Work Phone: [facility] 05-22-2017 pneumococcal conjuga te vaccine, 13 valent Vladimir Finley RN Work Phone: [facility] 06-29-2016 influenza, injectabl e, quadrivalent, contains preservative Vladimir Finley RN Work Phone: [facility] 06-18-2015 influenza, seasonal, injectable Vladimir Finley RN Work Phone: [facility] 07-01-2013 influenza virus vacc ine, whole virus Vladimir Finley RN Work Phone: [facility] Payers Date Payer Category Payer Self-pay 2024 Private Health Insurance [id number] 2006 Medicare [id number] 1959 Medicare [id number] 1959 Private Health Insurance [id number] 1941 Unknown [id number] 1941 Unknown [id number] 1941 Unknown [id number] 1941 Unknown [id number] Unknown [id number] Social History Date Type Detail Facility [facility] smoking consumption unknown [facility] Start: 1940 Sex assigned at Not on file [facility] Start: 12-17-2024 End: 01-27-2025 Gender identity Not on file [facility] Start: 12-17-2024 End: 01-27-2025 Tobacco smoking status NHIS Ex-smoker [facility] Start: [birth year]-27-1953 History of tobacco use Current smoke r [facility] Start: [birth year]-27-1953 History of tobacco use Cigarette Smo ker [facility] Start: 12-17-2024 End: 01-27-2025 Tobacco use and exposure Smokeless tobacco non-user [facility] Start: 12-17-2024 End: 04-06-2025 Alcoholic beverage intake Ex-drinker (finding) [facility] Start: 12-17-2024 End: 01-27-2025 History of Social function [facility] Start: 01-02-2025 Sex Male (finding) [facility] Start: 1940 Sex Assigned At Male F [facility] Start: 12-02-2015 National Score (1-100), lower number is lower risk 63 [facility] Clinical Notes 05-16-2024 to 04-08-2025 Faye Perry RN - 04/08/2025 11:12 AM Merline Moreno APRN.MARY ELLEN - 04/08/2025 10:30 AM Lubna Young MA - 04/08/2025 10:24 AM Gisella Chatman MD - 04/06/2025 2:12 PM EDT Note Date & Type Note Facility 04-08-2025 Note HNO ID: [id number] Author: FAYE PERRY RN Service: ? Author Type: Registered Nurse Type: Progress Notes Filed: 04/08/2025 12:22 Note Text: Holding treatment due to low platelets. David Fregoso CNP gives orders for NS 1000 ml and Mag 2g IV today. Faye Perry RN [facility] 04-08-2025 History of Present illness Narrative Holding treatment due to low platelets. David Fregoso CNP gives orders for NS 1000 ml and Mag 2g IV today. Faye Perry RN documented in this encounter [facility] 04-08-2025 History of Present illness Narrative Images from the original note were not included. 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 CASE SUMMARY / ASSESSMENT: 84 year old man with vocal cord squamous cell cancer presents to start concurrent chemotherapy with radiation for organ preservation. He underwent bronchoscopy 02/24/25 to further evaluate a mediastinal/right paratracheal node found on PET scan. Pathology was negative for malignant cells. Started definitive treatment with concurrent chemotherapy and radiation March 11, 2025. SUMMARIZED PLAN OF CARE: Hold day 29 today- due to low platelet and increased fatigue and weakness. Weekly Cisplatin 40 mg/m2 with radiation today Continue Weekly Cisplatin with labs weekly prior RTC in one week for reconsideration of C1D29 labs clinician treatment AI Assisted A/P: 1. 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) (C32.0) Malignant neoplasm of unspecified part of unspecified bronchus or lung (HCC) (C34.90) Head and neck cancer (HCC) (C76.0) Undergoing chemotherapy and radiation therapy. Experiencing significant fatigue and weakness. - Hold chemotherapy for one week due to thrombocytopenia and fatigue. - Continue radiation therapy as scheduled. - Follow-up next Sunday to reassess condition. 2. Encounter for antineoplastic chemotherapy (Z51.11) Chemotherapy session scheduled for today was postponed due to low platelet count and fatigue. - Resume chemotherapy next week if platelet count improves. 3. Chemotherapy-induced fatigue (R53.83) Neoplastic (malignant) related fatigue (R53.0) Experiencing significant fatigue and weakness, likely multifactorial due to chemotherapy and malignancy. - Administer IV hydration today to improve symptoms. - Monitor energy levels and reassess next week. 4. Thrombocytopenia (D69.6) Platelet count is 53,000/?L, making it unsafe to proceed with chemotherapy today. - Monitor platelet count closely. - Reevaluate next week before resuming chemotherapy. 5. Constipation, unspecified constipation type (K59.00) Experiencing mild constipation, possibly related to chemotherapy and decreased oral intake. - Increase Miralax to twice daily. - Consider adding a stool softener if needed. 6. Dehydration (E86.0) Likely contributing to fatigue and weakness. - Administer IV hydration today. - Encourage increased oral fluid intake. CASE HISTORY: Reverse Chronological Order 03/11/2025 - Current : Cisplatin weekly with Radiation 02/24/2025 Bronchoscopy Pathology of FNA transbronchial LN A - Lymph Node, Transbronchial, FNA - 11RS Negative for malignant cells. Benign lymphoid sample. B - Lymph Node, Transbronchial, FNA - 4R Negative for malignant cells. Benign lymphoid sample. 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 (01/07/2025) Laryngoscopic Examination: Left true vocal cord mass with fixation. HPI: Updated Visit, April 08, 2025: Chad is here today for consideration of weekly Cisplatin. He presents with significant fatigue, weakness, and weight loss. He reports feeling like Jell-O and notes a 6-pound weight loss. He experiences mild constipation, which he attributes to a prior COVID-19 infection, and is currently taking Miralax. He denies nausea and vomiting but occasionally feels acid indigestion. He drinks water throughout the day but has a reduced appetite, consuming only a Boost drink this morning to take his medications. He is undergoing daily radiation therapy and was scheduled for chemotherapy today, but treatment was deferred due to thrombocytopenia (platelet count of 53 x 10^9/L). He reports severe weakness and suspects dehydration. He is unable to drive due to macular degeneration and requires assistance to attend treatments. Updated Visit, March 25, 2025: Alone today, Patient is currently undergoing chemotherapy with cisplatin and radiation therapy, with a total of 35 radiation sessions planned. He reports no issues with numbness, tingling, or hearing loss but does experience carpal tunnel syndrome affecting two fingers on his left hand, which impacts his ability to feel fine objects like fishing lines. He has chosen not to pursue treatment for this condition at this time. He is eating well, as evidenced by elevated blood sugar levels, which he attributes to consuming two breakfast bars and a Boost drink this morning. He denies any issues with his throat. He reports significant vision problems that have affected his ability to drive, stating he can only drive in emergencies. His partner, whom he refers to as his other half, assists with driving. They are not to avoid affecting her pension benefits. (Today) Laboratory Tests: - Blood glucose: Elevated - Kidney function: Within normal limits Updated Visit, March 18, 2025: Mr. Mckeon returns to continue concurrent weekly Cisplatin with radiation for he SCC of the left vocal cord. He is having increased fatigue. Sunday he cut his grass for 1.5 hour and was very fatigued. Yesterday he did his chores and he had hot flashes. No chills. He did not have a fever. The hot flashes he was having a few months prior to being diagnosed with cancer. Denies any nausea, vomiting, diarrhea, mouth sores, neuropathy. He did have some constipation and increased his miralax to twice a day and it helps. Some days he doesn't have much of a urine stream, but other days he is fine. Swallowing is fine, voice is the same. No pain. His biggest complaint is the pain in his left hip that he has been having for a long time. PET showed degenerative changes in the area. Updated Visit, March 11, 2025: Mr. 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 Since his last visit, he underwent bronchoscopy 02/24/25 to further evaluate a mediastinal/right paratracheal node found on PET scan. Pathology was negative for malignant cells. Today we are starting definitive treatment with concurrent chemotherapy (cisplatin 40 mg/m2 weekly)and radiation. He is feeling well today. He still denies dysphagia. He is eating and drinking well. His biggest problem is his hoarse voice. Initial Visit, January 30, 2025: Chad Mckeon presents today Hematology and Oncology evaluation. He is a 84 year old male. 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 Constitutional: (+) fatigue, (+) weakness, (+) weight loss Gastrointestinal: (+) constipation, (+) nausea, (+) dyspepsia, (-) vomiting ECOG PERFORMANCE STATUS: 1 PHYSICAL EXAMINATION: Vitals: BP 119/70 Pulse 86 Temp (Src) 97.1 (Temporal) Resp 18 Ht 5' 8.11 (1.73m) Wt 194 lb 3.6 oz (88.1kg) SpO2 97% BMI 29.44 kg/(m^2). Body surface area is 2.06 meters squared. Exam limited to gross visualization where appropriate. Gen.: This is an age-appropriate patient in no acute distress. Head: Appears atraumatic with no visible lesions. Eyes: Pupils equally round and reactive to light, extraocular muscles are intact. Neck: Supple. Respiratory: Appears to be respiring comfortably. Neurologic: Nonfocal to gross visualization. Alert and oriented 3. Psychiatric: No evidence of inappropriate anxiety or depression. Skin: Visible areas of skin without rash, lesions, wounds or petechiae. ALLERGIES: ALLERGIES No Known Allergies MEDICATIONS: naproxen sodium (ALEVE) 220 mg tablet^Take 220 mg by mouth two times a day with meals.^Disp: ^Rfl: ondansetron (ZOFRAN) 8 mg tablet^Take 1 tablet by mouth every 8 hours as needed for nausea/vomiting.^Disp: 90 tablet^Rfl: 1 prochlorperazine (COMPAZINE) 10 mg tablet^Take 1 tablet by mouth every 6 hours as needed.^Disp: 100 tablet^Rfl: 1 aspirin, enteric coated (ASPIRIN, ENTERIC COATED) 81 mg EC tablet^Take 81 mg by mouth once daily.^Disp: ^Rfl: atorvastatin (LIPITOR) 40 mg tablet^Take 40 mg by mouth daily at bedtime.^Disp: ^Rfl: cetirizine (ZYRTEC) 10 mg tablet^Take 10 mg by mouth once daily.^Disp: ^Rfl: glimepiride (AMARYL) 4 mg tablet^TAKE ONE TABLET BY MOUTH ONCE DAILY WITH BREAKFAST OR THE FIRST MAIN MEAL OF THE DAY^Disp: ^Rfl: magnesium oxide (MAG-OX) 400 mg (241.3 mg magnesium) tablet^Take 1 tablet by mouth once daily.^Disp: ^Rfl: metFORMIN (GLUCOPHAGE) 500 mg tablet^take one tablet by mouth twice a day for 30 days^Disp: ^Rfl: metoprolol tartrate, short acting, (LOPRESSOR) 25 mg tablet^Take 12.5 mg by mouth two times a day.^Disp: ^Rfl: potassium chloride ER (KLOR-CON) 20 mEq tablet^Take 20 mEq by mouth daily with food.^Disp: ^Rfl: JANUVIA 100 mg tablet^1 tablet Orally Once a day for 30 days^Disp: ^Rfl: vit A/vit C/vit E/zinc/copper (PRESERVISION AREDS ORAL)^Take 2 tablets by mouth once daily.^Disp: ^Rfl: calcium carbonate/vitamin D3 (CALCIUM WITH VITAMIN D3 ORAL)^Take 2 tablets by mouth once daily.^Disp: ^Rfl: LABORATORY VALUES: WBC (k/uL) Date Value 04/08/2025 3.50 (L) RBC (m/uL) Date Value 04/08/2025 3.96 (L) Hemoglobin (g/dL) Date Value 04/08/2025 12.7 (L) Hematocrit (%) Date Value 04/08/2025 35.9 (L) MCV (fL) Date Value 04/08/2025 90.7 MCH (pg) Date Value 04/08/2025 32.1 MCHC (g/dL) Date Value 04/08/2025 35.4 RDW-CV (%) Date Value 04/08/2025 14.9 Platelet Count (k/uL) Date Value 04/08/2025 53 (L) MPV (fL) Date Value 04/08/2025 8.7 (L) Glucose (mg/dL) Date Value 04/08/2025 371 (H) BUN (mg/dL) Date Value 04/08/2025 30 (H) Creatinine (mg/dL) Date Value 04/08/2025 1.02 Sodium (mmol/L) Date Value 04/08/2025 133 (L) Potassium (mmol/L) Date Value 04/08/2025 5.1 Chloride (mmol/L) Date Value 04/08/2025 94 (L) CO2 (mmol/L) Date Value 04/08/2025 28 Protein, Total (g/dL) Date Value 04/08/2025 6.5 Albumin (g/dL) Date Value 04/08/2025 4.2 Calcium, Total (mg/dL) Date Value 04/08/2025 9.7 Alkaline Phosphatase (U/L) Date Value 04/08/2025 119 (H) Bilirubin, Total (mg/dL) Date Value 04/08/2025 0.6 AST (U/L) Date Value 04/08/2025 19 ALT (U/L) Date Value 04/08/2025 19 DIAGNOSIS: (C32.0) 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) (primary encounter diagnosis) (C34.90) Malignant neoplasm of unspecified part of unspecified bronchus or lung (HCC) (C76.0) Head and neck cancer (HCC) (Z51.11) Encounter for antineoplastic chemotherapy (R53.83, T45.1X5A) Chemotherapy-induced fatigue (D69.6) Thrombocytopenia (K59.00) Constipation, unspecified constipation type (R53.0) Neoplastic (malignant) related fatigue (E86.0) Dehydration PAST MEDICAL HISTORY Diagnosis Date Diabetes mellitus (HCC) HTN (hypertension) Hypercholesteremia 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 I spent a total of 30 minutes on the date of service which included preparing to see the patient, [id number] patient care, completing clinical documentation, obtaining and/or reviewing separately obtained history, performing a medically appropriate examination, counseling and educating the patient/family/caregiver, ordering medications, tests, or procedures, independently interpreting results (not separately reported), communicating results to the patient/family/caregiver, and care coordination (not separately reported). Merline Fregoso APRN, REGIONAL EHS MANAGER-C, [facility] Hematology and Oncology Services Provided at: [place], [place] CC: Gisella Juarez, MD [address] [facility] [address] Patient states he looks good on outside but inside feels like jello, hot flashes, can't sleep at night but sleeps during the day, also he states it takes 1 1/2 hours to do a 20 minute job. Lubna Granados MA documented in this encounter [facility] 04-08-2025 Note HNO ID: [id number] Author: MERLINE FREGOSO APRN.MARY ELLEN Service: ? 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 CASE SUMMARY / ASSESSMENT: 84 year old man with vocal cord squamous cell cancer presents to start concurrent chemotherapy with radiation for organ preservation. He underwent bronchoscopy 02/24/25 to further evaluate a mediastinal/right paratracheal node found on PET scan. Pathology was negative for malignant cells. Started definitive treatment with concurrent chemotherapy and radiation March 11, 2025. SUMMARIZED PLAN OF CARE: Hold day 29 today- due to low platelet and increased fatigue and weakness. Weekly Cisplatin 40 mg/m2 with radiation today Continue Weekly Cisplatin with labs weekly prior RTC in one week for reconsideration of C1D29 labs clinician treatment AI Assisted A/P: 1. 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) (C32.0) Malignant neoplasm of unspecified part of unspecified bronchus or lung (HCC) (C34.90) Head and neck cancer (HCC) (C76.0) Undergoing chemotherapy and radiation therapy. Experiencing significant fatigue and weakness. - Hold chemotherapy for one week due to thrombocytopenia and fatigue. - Continue radiation therapy as scheduled. - Follow-up next Sunday to reassess condition. 2. Encounter for antineoplastic chemotherapy (Z51.11) Chemotherapy session scheduled for today was postponed due to low platelet count and fatigue. - Resume chemotherapy next week if platelet count improves. 3. Chemotherapy-induced fatigue (R53.83) Neoplastic (malignant) related fatigue (R53.0) Experiencing significant fatigue and weakness, likely multifactorial due to chemotherapy and malignancy. - Administer IV hydration today to improve symptoms. - Monitor energy levels and reassess next week. 4. Thrombocytopenia (D69.6) Platelet count is 53,000/?L, making it unsafe to proceed with chemotherapy today. - Monitor platelet count closely. - Reevaluate next week before resuming chemotherapy. 5. Constipation, unspecified constipation type (K59.00) Experiencing mild constipation, possibly related to chemotherapy and decreased oral intake. - Increase Miralax to twice daily. - Consider adding a stool softener if needed. 6. Dehydration (E86.0) Likely contributing to fatigue and weakness. - Administer IV hydration today. - Encourage increased oral fluid intake. ____ CASE HISTORY: Reverse Chronological Order 03/11/2025 - Current : Cisplatin weekly with Radiation 02/24/2025 Bronchoscopy Pathology of FNA transbronchial LN A - Lymph Node, Transbronchial, FNA - 11RS Negative for malignant cells. Benign lymphoid sample. B - Lymph Node, Transbronchial, FNA - 4R Negative for malignant cells. Benign lymphoid sample. 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 ( (more content not included)... [facility] 04-08-2025 Note HNO ID: [id number] Author: LUBNA GRANADOS MA Service: ? Author Type: Plugging Machine Operator Type: Progress Notes Filed: 04/08/2025 11:42 Note Text: Patient states he looks good on outside but inside feels like jello, hot flashes, can't sleep at night but sleeps during the day, also he states it takes 1 1/2 hours to do a 20 minute job. Lubna Granados MA [facility] 04-06-2025 Note HNO ID: [id number] Author: Gisella GRANT MD Service: ? Author Type: Physician Type: Progress Notes Filed: 04/06/2025 14:27 Note Text: Radiation Oncology - On Treatment Review (OTR) Note PATIENT NAME: Chad Mckeon PATIENT DIAGNOSIS: 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 COURSE: definitive and concurrent chemotherapy Area Treated: Larynx, bilateral neck Current dose: 3800 Gy in 19 fx Planned dose: 7000 Gy in 35 fx SUBJECTIVE: Patient complains of increased fatigue. Unable to do a whole lot over the weekend. Denies pain. Denies significant dysphagia. Eating fairly well. PHYSICAL EXAM: 04/06/25 1411 BP: 115/75 BP Site: Left Arm BP Position: Sitting BP Cuff Size: Regular Adult Pulse: 95 Resp: 16 Temp: 36.2 ?C (97.2 ?F) TempSrc: Temporal SpO2: 96% Weight: 89.6 kg (197 lb 8.5 oz) Height: 173 cm (5' 8.11 ) KPS: 100 General Appearance: Alert and oriented. No acute distress. Radiation dermatitis: No Mucositis: No Oral cavity and oropharynx: lips and gums normal, oral and pharyngeal mucosa moist, palate elevates normally, tongue mobile and without palpable lesions, tonsils without masses Neck: Normal ROM. No palpable cervical or supraclavicular adenopathy. IMAGING/LAB RESULTS: Hemoglobin (g/dL) Date Value 04/01/2025 13.2 Hematocrit (%) Date Value 04/01/2025 37.2 WBC (k/uL) Date Value 04/01/2025 5.48 Platelet Count (k/uL) Date Value 04/01/2025 107 TOXICITY ASSESSMENT (CTCv4): Dysphagia:grade 0 - No symptoms Mucositis: grade 0 - No symptoms Radiation dermatitis: grade 0 - No symptoms Trismus: grade 0 - No symptoms Voice Changes:grade 2 - Moderate or persistent change from normal voice; still understandable Xerostomia: grade 0 - No symptoms Treatment chart checked: Yes Patient treatment site reviewed and verified:Yes Port films reviewed and current:Yes Medications started: None ASSESSMENT: Patient doing fairly well. Having increased generalized issues related to combined treatment. Unclear whether this is more from radiation or possibly systemic therapy. Will discuss with medical oncology regarding their thoughts on this. Could consider skipping chemotherapy this week to see how he does chart and imaging reviewed. Continue radiation as outlined. 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 COURSE: definitive and concurrent chemotherapy Area Treated: Larynx, bilateral neck Current dose: 3800 Gy in 19 fx Planned dose: 7000 Gy in 35 fx SUBJECTIVE: Patient complains of increased fatigue. Unable to do a whole lot over the weekend. Denies pain. Denies significant dysphagia. Eating fairly well. PHYSICAL EXAM: 04/06/25 1411 BP: 115/75 BP Site: Left Arm BP Position: Sitting BP Cuff Size: Regular Adult Pulse: 95 Resp: 16 Temp: 36.2 C (97.2 F) TempSrc: Temporal SpO2: 96% Weight: 89.6 kg (197 lb 8.5 oz) Height: 173 cm (5' 8.11 ) KPS: 100 General Appearance: Alert and oriented. No acute distress. Radiation dermatitis: No Mucositis: No Oral cavity and oropharynx: lips and gums normal, oral and pharyngeal mucosa moist, palate elevates normally, tongue mobile and without palpable lesions, tonsils without masses Neck: Normal ROM. No palpable cervical or supraclavicular adenopathy. IMAGING/LAB RESULTS: Hemoglobin (g/dL) Date Value 04/01/2025 13.2 Hematocrit (%) Date Value 04/01/2025 37.2 WBC (k/uL) Date Value 04/01/2025 5.48 Platelet Count (k/uL) Date Value 04/01/2025 107 TOXICITY ASSESSMENT (CTCv4): Dysphagia:grade 0 - No symptoms Mucositis: grade 0 - No symptoms Radiation dermatitis: grade 0 - No symptoms Trismus: grade 0 - No symptoms Voice Changes:grade 2 - Moderate or persistent change from normal voice; still understandable Xerostomia: grade 0 - No symptoms Treatment chart checked: Yes Patient treatment site reviewed and verified:Yes Port films reviewed and current:Yes Medications started: None ASSESSMENT: Patient doing fairly well. Having increased generalized issues related to combined treatment. Unclear whether this is more from radiation or possibly systemic therapy. Will discuss with medical oncology regarding their thoughts on this. Could consider skipping chemotherapy this week to see how he does chart and imaging reviewed. Continue radiation as outlined. Gisella Grant MD documented in this encounter [facility] 03-30-2025 Note HNO ID: [id number] Author: Gisella GRANT MD Service: ? 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 COURSE: definitive and concurrent chemotherapy Area Treated: Larynx, bilateral neck Current dose: 2800 Gy in 14 fx Planned dose: 7000 Gy in 35 fx SUBJECTIVE: Doing well. Denies dysphagia. Voice continues to improve. Having some occasional hot flashes. PHYSICAL EXAM: 03/30/25 1448 BP: 150/74 Pulse: 99 Resp: 18 Temp: 36.3 ?C (97.4 ?F) SpO2: 97% Weight: 89.4 kg (197 lb 1.5 oz) KPS: 100 General Appearance: Alert and oriented. No acute distress. Radiation dermatitis: No Mucositis: No Oral cavity and oropharynx: lips and gums normal, oral and pharyngeal mucosa moist, palate elevates normally, tongue mobile and without palpable lesions, tonsils without masses Neck: Normal ROM. No palpable cervical or supraclavicular adenopathy. IMAGING/LAB RESULTS: Hemoglobin (g/dL) Date Value 03/25/2025 13.2 Hematocrit (%) Date Value 03/25/2025 36.8 WBC (k/uL) Date Value 03/25/2025 7.56 Platelet Count (k/uL) Date Value 03/25/2025 104 TOXICITY ASSESSMENT (CTCv4): Dysphagia:grade 0 - No symptoms Mucositis: grade 0 - No symptoms Radiation dermatitis: grade 0 - No symptoms Trismus: grade 0 - No symptoms Voice Changes:grade 2 - Moderate or persistent change from normal voice; still understandable Xerostomia: grade 0 - No symptoms Treatment chart checked: Yes Patient treatment site reviewed and verified:Yes Port films reviewed and current:Yes Medications started: None ASSESSMENT: Patient doing well. Chart and imaging reviewed. Continue radiation as outlined. 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 COURSE: definitive and concurrent chemotherapy Area Treated: Larynx, bilateral neck Current dose: 2800 Gy in 14 fx Planned dose: 7000 Gy in 35 fx SUBJECTIVE: Doing well. Denies dysphagia. Voice continues to improve. Having some occasional hot flashes. PHYSICAL EXAM: 03/30/25 1448 BP: 150/74 Pulse: 99 Resp: 18 Temp: 36.3 C (97.4 F) SpO2: 97% Weight: 89.4 kg (197 lb 1.5 oz) KPS: 100 General Appearance: Alert and oriented. No acute distress. Radiation dermatitis: No Mucositis: No Oral cavity and oropharynx: lips and gums normal, oral and pharyngeal mucosa moist, palate elevates normally, tongue mobile and without palpable lesions, tonsils without masses Neck: Normal ROM. No palpable cervical or supraclavicular adenopathy. IMAGING/LAB RESULTS: Hemoglobin (g/dL) Date Value 03/25/2025 13.2 Hematocrit (%) Date Value 03/25/2025 36.8 WBC (k/uL) Date Value 03/25/2025 7.56 Platelet Count (k/uL) Date Value 03/25/2025 104 TOXICITY ASSESSMENT (CTCv4): Dysphagia:grade 0 - No symptoms Mucositis: grade 0 - No symptoms Radiation dermatitis: grade 0 - No symptoms Trismus: grade 0 - No symptoms Voice Changes:grade 2 - Moderate or persistent change from normal voice; still understandable Xerostomia: grade 0 - No symptoms Treatment chart checked: Yes Patient treatment site reviewed and verified:Yes Port films reviewed and current:Yes Medications started: None ASSESSMENT: Patient doing well. Chart and imaging reviewed. Continue radiation as outlined. Gisella Grant MD documented in this encounter [facility] 03-25-2025 Note HNO ID: [id number] Author: JEANETTE ROWLAND LSW Service: ? Author Type: Cutter Barrel Drum Type: Progress Notes Filed: 03/25/2025 15:07 Note Text: .PSYCHOSOCIAL SCREENING ASSESSMENT Date of Service: March 25, 2025 Chad Mckeon is a 84 year old male being seen for initial social work assessment. Diagnosis: Head and Neck Cancer New Primary Oncologist: Dr. Leal Radiation Oncologist: Dr. Engeler Goals of Care: Curative intent Today's visit includes: self/patient Family History of Cancer: not discussed SUPPORT NETWORK: Social Connections: Not on file Marital status: Parent(s): Mother is and Father is Child/Children: Yes. How many? 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 Unknown EMPLOYMENT/FINANCIAL/HEALTH INSURANCE: Employment: Retired Income source: Social Security and Skilled Nursing Pension Insurance: Medicare only Prescription coverage: Yes Is the patient appropriate for referral to [facility] COBRA Assistance program? N/A Financial Distress: No FOOD INSECURITY Within the past year, have you worried about how you would buy or obtain food? No LIVING ARRANGEMENTS: Type: House- independent colonial Resides with: Alone Transportation Needs: No Transportation Needs (01/10/2023) Received from [facility] Transportation In the past 12 months, has lack of transportation kept you from medical appointments or from getting medications?: No Lack of Transportation (Non-Medical): Not on file FUNCTIONAL STATUS: Cognitive limitations: none Physical limitations: none Language barrier: No Hearing Impaired: No Speech Impaired: Yes Hoarness Visual Impairments: Yes, Macular Degeneration Special considerations/accommodations needed: No HEALTH LITERACY: Do you have difficulty understanding medical instructions or other written materials you receive from you doctor or pharmacy? Not asked Do have difficulty filling out medical forms by yourself? Not asked The following interventions were put into place: NA MEDICATION ADHERENCE: Within the past 2 weeks, have you had difficulty remembering to take your medicine? Not asked Within the past 2 weeks, did you ever miss taking your medications for reasons other than forgetting? No The following interventions were put into place: NA MENTAL HEALTH HISTORY: Yes Diagnosis: depression/grief History of combat/trauma: No Intimate Partner Violence: Not At Risk (02/24/2025) Safe at Home? Fear of Current or Ex-Partner: Not on file Emotionally Abused: Not on file Physically Abused: Not on file Sexually Abused: Not on file Safe at Home?: Yes Substance Use and Treatment History: denied History of Abuse: Unknown Issues with: Sleep:No Eating:No Exercising: No Stress Management: No ADVANCE DIRECTIVES/LEGAL DOCUMENTS: Living Will: No and declined at this time Scanned into EPIC: No Health Care Durable Power of Enamel Dipper: No and declined at this time Scanned into EPIC: No Guardianship: NA Scanned into EPIC:NA Reasons Advanced Directives were not Addressed: NA Advance Care Planning Goals of Care In this encounter: Advance Directives are not completed. COPING STATUS: Stress: Not on file Coping Strengths: supportive relationships with immediate family successful managing past crises self advocate strong problem-solving skills ability to plan able to follow direction consistently over time able to communicate effectively Current affect/mood: appropriate History of Loss: Yes, , parents Adjustment to diagnosis: reflecting understanding and responding appropriately BARRIERS/CARE CHALLENGES: Vision impaired Are barriers/care challenges identified likely to have an impact on the patient's quality of life during treatment? No INTERVENTIONS/REFERRALS TO BE PROVIDED: Monitor patient response to treatment Continue follow up as needed Resources and Referrals: Internal: NA External: N/A CLINICAL IMPRESSION: Patient is an 84 year old male with a diagnosis of head and neck cancer. Patient lives in [place], [place]. Patient has a significant other that helps him. Patient has macular degeneration to the point that is not able to drive. Patient has 3 sons. Patient is retired from the [employer] and worked there for 36 years. Patient spoke about how he has enjoyed his boat and spending time on [place]. No immediate psychosocial needs or concerns were identified. SW will remain available and will follow up as appropriate. Psychosocial Risk Criteria If positive for one or more of the following risk criteria, follow up every 30 days Age: >70 Mental Health: NA Practical Needs: N/A PLAN: follow up PRN Follow up appointment with SW in: PRN Assigned HARIS l (more content not included)... [facility] 03-25-2025 History of Present illness Narrative .PSYCHOSOCIAL SCREENING ASSESSMENT Date of Service: March 25, 2025 Chad Mckeon is a 84 year old male being seen for initial social work assessment. Diagnosis: Head and Neck Cancer New Primary Oncologist: Dr. Leal Radiation Oncologist: Dr. Grant Goals of Care: Curative intent Today's visit includes: self/patient Family History of Cancer: not discussed SUPPORT NETWORK: Social Connections: Not on file Marital status: Parent(s): Mother is and Father is Child/Children: Yes. How many? 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 Unknown EMPLOYMENT/FINANCIAL/HEALTH INSURANCE: Employment: Retired Income source: Social Security and Skilled Nursing Pension Insurance: Medicare only Prescription coverage: Yes Is the patient appropriate for referral to [facility] Assistance program? N/A Financial Distress: No FOOD INSECURITY Within the past year, have you worried about how you would buy or obtain food? No LIVING ARRANGEMENTS: Type: House- independent colonial Resides with: Alone Transportation Needs: No Transportation Needs (01/10/2023) Received from [facility] Transportation In the past 12 months, has lack of transportation kept you from medical appointments or from getting medications?: No Lack of Transportation (Non-Medical): Not on file FUNCTIONAL STATUS: Cognitive limitations: none Physical limitations: none Language barrier: No Hearing Impaired: No Speech Impaired: Yes Hoarness Visual Impairments: Yes, Macular Degeneration Special considerations/accommodations needed: No HEALTH LITERACY: Do you have difficulty understanding medical instructions or other written materials you receive from you doctor or pharmacy? Not asked Do have difficulty filling out medical forms by yourself? Not asked The following interventions were put into place: NA MEDICATION ADHERENCE: Within the past 2 weeks, have you had difficulty remembering to take your medicine? Not asked Within the past 2 weeks, did you ever miss taking your medications for reasons other than forgetting? No The following interventions were put into place: NA MENTAL HEALTH HISTORY: Yes Diagnosis: depression/grief History of combat/trauma: No Intimate Partner Violence: Not At Risk (02/24/2025) Safe at Home? Fear of Current or Ex-Partner: Not on file Emotionally Abused: Not on file Physically Abused: Not on file Sexually Abused: Not on file Safe at Home?: Yes Substance Use and Treatment History: denied History of Abuse: Unknown Issues with: Sleep:No Eating:No Exercising: No Stress Management: No ADVANCE DIRECTIVES/LEGAL DOCUMENTS: Living Will: No and declined at this time Scanned into EPIC: No Health Care Durable Power of Enamel Dipper: No and declined at this time Scanned into EPIC: No Guardianship: NA Scanned into EPIC:NA Reasons Advanced Directives were not Addressed: NA Advance Care Planning Goals of Care In this encounter: Advance Directives are not completed. COPING STATUS: Stress: Not on file Coping Strengths: supportive relationships with immediate family successful managing past crises self advocate strong problem-solving skills ability to plan able to follow direction consistently over time able to communicate effectively Current affect/mood: appropriate History of Loss: Yes, , parents Adjustment to diagnosis: reflecting understanding and responding appropriately BARRIERS/CARE CHALLENGES: Vision impaired Are barriers/care challenges identified likely to have an impact on the patient's quality of life during treatment? No INTERVENTIONS/REFERRALS TO BE PROVIDED: Monitor patient response to treatment Continue follow up as needed Resources and Referrals: Internal: NA External: N/A CLINICAL IMPRESSION: Patient is an 84 year old male with a diagnosis of head and neck cancer. Patient lives in [place], [place]. Patient has a significant other that helps him. Patient has macular degeneration to the point that is not able to drive. Patient has 3 sons. Patient is retired from the [employer] and worked there for 36 years. Patient spoke about how he has enjoyed his boat and spending time on [place]. No immediate psychosocial needs or concerns were identified. SW will remain available and will follow up as appropriate. Psychosocial Risk Criteria If positive for one or more of the following risk criteria, follow up every 30 days Age: >70 Mental Health: NA Practical Needs: N/A PLAN: follow up PRN Follow up appointment with SW in: PRN Assigned SW listed in Care Team tab: Yes GHADA Marcano documented in this encounter [facility] 03-25-2025 Note HNO ID: [id number] Author: CHANDAN BURGOS MD Service: ? 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 CASE SUMMARY / ASSESSMENT: 84 year old man with vocal cord squamous cell cancer presents to start concurrent chemotherapy with radiation for organ preservation. He underwent bronchoscopy 02/24/25 to further evaluate a mediastinal/right paratracheal node found on PET scan. Pathology was negative for malignant cells. Started definitive treatment with concurrent chemotherapy and radiation March 11, 2025. SUMMARIZED PLAN OF CARE: Continue D15 weekly Cisplatin 40 mg/m2 with radiation today Continue Weekly Cisplatin with labs weekly prior RTC in 3 weeks (prior to D36) (04/15/2025) labs clinician treatment AI Assisted A/P: 1. 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) (C32.0) Undergoing treatment with cisplatin chemotherapy and radiation therapy. Tolerating treatment well without significant side effects. No issues with throat or eating reported. - Continue cisplatin chemotherapy weekly. - Continue radiation therapy as planned for a total of 35 sessions. - Monitor for side effects and adjust treatment as necessary. - Follow-up in 3 weeks. 2. Type 2 diabetes mellitus without complication, unspecified whether jail insulin use (HCC) (E11.9) Blood glucose levels elevated, likely due to recent dietary intake of breakfast bars and Boost drink. - Monitor blood glucose levels. - Discuss dietary modifications to manage blood glucose levels. 3. Personal history of nicotine dependence (Z87.891) 4. 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 Malignant neoplasm of unspecified part of unspecified bronchus or lung (HCC) (C34.90) 6. Carpal tunnel syndrome, left upper limb (G56.02) Numbness and tingling in two fingers of the left hand, affecting ability to perform certain activities such as fishing. - Monitor symptoms. - Consider further evaluation and treatment if symptoms worsen or become intolerable. 7. 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 - Rely on assistance from partner for transportation. - Discuss safety measures and alternative transportation options. CASE HISTORY: Reverse Chronological Order 03/11/2025 - Current : Cisplatin weekly with Radiation 02/24/2025 Bronchoscopy Pathology of FNA transbronchial LN A - Lymph Node, Transbronchial, FNA - 11RS Negative for malignant cells. Benign lymphoid sample. B - Lymph Node, Transbronchial, FNA - 4R Negative for malignant cells. Benign lymphoid sample. 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 (01/07/2025) Laryngoscopic Examination: Left true vocal cord mass with fixation. (more content not included)... [facility] 03-23-2025 Note HNO ID: [id number] Author: Gisella GRANT MD Service: ? 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 COURSE: definitive and concurrent chemotherapy Area Treated: Larynx, bilateral neck Current dose: 1800 Gy in 9 fx Planned dose: 7000 Gy in 35 fx SUBJECTIVE: Doing well. Easier to talk, hoarseness somewhat improved. PHYSICAL EXAM: 03/23/25 1700 BP: 116/71 Pulse: 99 Resp: 18 Temp: (!) 35.9 ?C (96.7 ?F) SpO2: 96% Weight: 90 kg (198 lb 6.6 oz) KPS: 100 General Appearance: Alert and oriented. No acute distress. Radiation dermatitis: No Mucositis: No Oral cavity and oropharynx: lips and gums normal, oral and pharyngeal mucosa moist, palate elevates normally, tongue mobile and without palpable lesions, tonsils without masses Neck: Normal ROM. No palpable cervical or supraclavicular adenopathy. IMAGING/LAB RESULTS: Hemoglobin (g/dL) Date Value 03/18/2025 14.4 Hematocrit (%) Date Value 03/18/2025 41.2 WBC (k/uL) Date Value 03/18/2025 7.85 Platelet Count (k/uL) Date Value 03/18/2025 165 TOXICITY ASSESSMENT (CTCv4): Dysphagia:grade 0 - No symptoms Mucositis: grade 0 - No symptoms Radiation dermatitis: grade 0 - No symptoms Trismus: grade 0 - No symptoms Voice Changes:grade 2 - Moderate or persistent change from normal voice; still understandable Xerostomia: grade 0 - No symptoms Treatment chart checked: Yes Patient treatment site reviewed and verified:Yes Port films reviewed and current:Yes Medications started: None ASSESSMENT: Patient doing well. Chart and imaging reviewed. Continue radiation as outlined. 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 COURSE: definitive and concurrent chemotherapy Area Treated: Larynx, bilateral neck Current dose: 1800 Gy in 9 fx Planned dose: 7000 Gy in 35 fx SUBJECTIVE: Doing well. Easier to talk, hoarseness somewhat improved. PHYSICAL EXAM: 03/23/25 1700 BP: 116/71 Pulse: 99 Resp: 18 Temp: (!) 35.9 C (96.7 F) SpO2: 96% Weight: 90 kg (198 lb 6.6 oz) KPS: 100 General Appearance: Alert and oriented. No acute distress. Radiation dermatitis: No Mucositis: No Oral cavity and oropharynx: lips and gums normal, oral and pharyngeal mucosa moist, palate elevates normally, tongue mobile and without palpable lesions, tonsils without masses Neck: Normal ROM. No palpable cervical or supraclavicular adenopathy. IMAGING/LAB RESULTS: Hemoglobin (g/dL) Date Value 03/18/2025 14.4 Hematocrit (%) Date Value 03/18/2025 41.2 WBC (k/uL) Date Value 03/18/2025 7.85 Platelet Count (k/uL) Date Value 03/18/2025 165 TOXICITY ASSESSMENT (CTCv4): Dysphagia:grade 0 - No symptoms Mucositis: grade 0 - No symptoms Radiation dermatitis: grade 0 - No symptoms Trismus: grade 0 - No symptoms Voice Changes:grade 2 - Moderate or persistent change from normal voice; still understandable Xerostomia: grade 0 - No symptoms Treatment chart checked: Yes Patient treatment site reviewed and verified:Yes Port films reviewed and current:Yes Medications started: None ASSESSMENT: Patient doing well. Chart and imaging reviewed. Continue radiation as outlined. Gisella Grant MD documented in this encounter [facility] 03-18-2025 History of Present illness Narrative Images from the original note were not included. 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 He underwent bronchoscopy 02/24/25 to further evaluate a mediastinal/right paratracheal node found on PET scan. Pathology was negative for malignant cells. Started definitive treatment with concurrent chemotherapy and radiation March 11, 2025. SUMMARIZED PLAN OF CARE: 1. 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 Continue cycle 2 of weekly Cisplatin 40 mg/m2 with radiation today . Follow up weekly with labs prior to each treatment. All of his questions were answered. Labs stable today CASE HISTORY: Reverse Chronological Order 02/24/2025 Bronchoscopy Pathology of FNA transbronchial LN A - Lymph Node, Transbronchial, FNA - 11RS Negative for malignant cells. Benign lymphoid sample. B - Lymph Node, Transbronchial, FNA - 4R Negative for malignant cells. Benign lymphoid sample. 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 (01/07/2025) Laryngoscopic Examination: Left true vocal cord mass with fixation. HPI: Updated Visit, March 18, 2025: Mr. Mckeon returns to continue concurrent weekly Cisplatin with radiation for he SCC of the left vocal cord. He is having increased fatigue. Sunday he cut his grass for 1.5 hour and was very fatigued. Yesterday he did his chores and he had hot flashes. No chills. He did not have a fever. The hot flashes he was having a few months prior to being diagnosed with cancer. Denies any nausea, vomiting, diarrhea, mouth sores, neuropathy. He did have some constipation and increased his miralax to twice a day and it helps. Some days he doesn't have much of a urine stream, but other days he is fine. Swallowing is fine, voice is the same. No pain. His biggest complaint is the pain in his left hip that he has been having for a long time. PET showed degenerative changes in the area. Updated Visit, March 11, 2025: Mr. 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 Since his last visit, he underwent bronchoscopy 02/24/25 to further evaluate a mediastinal/right paratracheal node found on PET scan. Pathology was negative for malignant cells. Today we are starting definitive treatment with concurrent chemotherapy (cisplatin 40 mg/m2 weekly)and radiation. He is feeling well today. He still denies dysphagia. He is eating and drinking well. His biggest problem is his hoarse voice. Initial Visit, January 30, 2025: Chad Mckeon presents today Hematology and Oncology evaluation. He is a 84 year old male. 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 Body surface area is 2.09 meters squared. General: Alert and oriented, no distress, pleasant and cooperative. Heart: Regular, normal S1 and S2, no murmurs, rubs, or gallops Lungs: Clear to auscultation bilaterally Abdomen: Benign Extremities: Feet/ankles without edema ALLERGIES: ALLERGIES No Known Allergies MEDICATIONS: naproxen sodium (ALEVE) 220 mg tablet Take 220 mg by mouth two times a day with meals. ondansetron (ZOFRAN) 8 mg tablet Take 1 tablet by mouth every 8 hours as needed for nausea/vomiting. prochlorperazine (COMPAZINE) 10 mg tablet Take 1 tablet by mouth every 6 hours as needed. aspirin, enteric coated (ASPIRIN, ENTERIC COATED) 81 mg EC tablet Take 81 mg by mouth once daily. atorvastatin (LIPITOR) 40 mg tablet Take 40 mg by mouth daily at bedtime. cetirizine (ZYRTEC) 10 mg tablet Take 10 mg by mouth once daily. glimepiride (AMARYL) 4 mg tablet TAKE ONE TABLET BY MOUTH ONCE DAILY WITH BREAKFAST OR THE FIRST MAIN MEAL OF THE DAY magnesium oxide (MAG-OX) 400 mg (241.3 mg magnesium) tablet Take 1 tablet by mouth once daily. metFORMIN (GLUCOPHAGE) 500 mg tablet take one [...] A/vit C/vit E/zinc/copper (PRESERVISION AREDS ORAL) Take 2 tablets by mouth once daily. calcium carbonate/vitamin D3 (CALCIUM WITH VITAMIN D3 ORAL) Take 2 tablets by mouth once daily. LABORATORY VALUES: WBC (k/uL) Date Value 03/18/2025 7.85 RBC (m/uL) Date Value 03/18/2025 4.54 Hemoglobin (g/dL) Date Value 03/18/2025 14.4 Hematocrit (%) Date Value 03/18/2025 41.2 MCV (fL) Date Value 03/18/2025 90.7 MCH (pg) Date Value 03/18/2025 31.7 MCHC (g/dL) Date Value 03/18/2025 35.0 RDW-CV (%) Date Value 03/18/2025 13.4 Platelet Count (k/uL) Date Value 03/18/2025 165 MPV (fL) Date Value 03/18/2025 8.5 (L) Glucose (mg/dL) Date Value 03/18/2025 448 (H) BUN (mg/dL) Date Value 03/18/2025 23 Creatinine (mg/dL) Date Value 03/18/2025 0.92 Sodium (mmol/L) Date Value 03/18/2025 134 (L) Potassium (mmol/L) Date Value 03/18/2025 4.6 Chloride (mmol/L) Date Value 03/18/2025 97 (L) CO2 (mmol/L) Date Value 03/18/2025 28 Protein, Total (g/dL) Date Value 03/18/2025 6.8 Albumin (g/dL) Date Value 03/18/2025 4.1 Calcium, Total (mg/dL) Date Value 03/18/2025 9.6 Alkaline Phosphatase (U/L) Date Value 03/18/2025 146 (H) Bilirubin, Total (mg/dL) Date Value 03/18/2025 0.5 AST (U/L) Date Value 03/18/2025 16 ALT (U/L) Date Value 03/18/2025 19 DIAGNOSIS: (C32.0) 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 I spent a total of 30 minutes on the date of the service which included preparing to see the patient, [id number] patient care, completing clinical documentation, obtaining and/or reviewing separately obtained history, performing a medically appropriate examination, counseling and educating the patient/family/caregiver, ordering medications, tests, or procedures, independently interpreting results (not separately reported), communicating results to the patient/family/caregiver, and care coordination (not separately reported). Bekah Perdomo PA-C Hematology and Oncology Services Provided at: [place], [place] CC: Gisella Juarez MD [id number] [facility] [id number] documented in this encounter [facility] 03-18-2025 Note HNO ID: [id number] Author: BEKAH PERDOMO PA-C Service: ? Author Type: Physician Paint Prepper Type: Progress Notes Filed: 03/18/2025 11:32 Note Text: NAME: Chad Mckeon NO.: [id number] DATE OF SERVICE: March 18, 2025 Referring Provider: (Elements copied from the note dated March 11, 2025, have been reviewed and updated where appropriate, and all reflect current assessment and medical decision making during today's encounter, March 11, 2025) Additional Clinicians involved in Chad Mckeon's care: Elaine Jarquin DIAGNOSIS: 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 He underwent bronchoscopy 02/24/25 to further evaluate a mediastinal/right paratracheal node found on PET scan. Pathology was negative for malignant cells. Started definitive treatment with concurrent chemotherapy and radiation March 11, 2025. SUMMARIZED PLAN OF CARE: 1. 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 Continue cycle 2 of weekly Cisplatin 40 mg/m2 with radiation today . Follow up weekly with labs prior to each treatment. All of his questions were answered. Labs stable today CASE HISTORY: Reverse Chronological Order 02/24/2025 Bronchoscopy Pathology of FNA transbronchial LN A - Lymph Node, Transbronchial, FNA - 11RS Negative for malignant cells. Benign lymphoid sample. B - Lymph Node, Transbronchial, FNA - 4R Negative for malignant cells. Benign lymphoid sample. 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 (01/07/2025) Laryngoscopic Examination: Left true vocal cord mass with fixation. HPI: Updated Visit, March 18, 2025: Mr. Mckeon returns to continue concurrent weekly Cisplatin with radiation for he SCC of the left vocal cord. He is having increased fatigue. Sunday he cut his grass for 1.5 hour and was very fatigued. Yesterday he did his chores and he had hot flashes. No chills. He did not have a fever. The hot flashes he was having a few months prior to being diagnosed with cancer. Denies any nausea, vomiting, diarrhea, mouth sores, neuropathy. He did have some constipation and increased his miralax to twice a day and it helps. Some days he doesn't have much of a urine stream, but other days he is fine. Swallowing is fine, voice is the same. No pain. His biggest complaint is the pain in his left hip that he has been having for a long time. PET showed degenerative changes in the area. Updated Visit, March 11, 2025: Mr. 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 Since his last visit, he underwent bronchoscopy 02/24/25 to further evaluate a mediastinal/right paratracheal node found on PET scan. Pathology was negative for malignant cells. Today we are starting definitive treatment with concurrent chemotherapy (cisplatin 40 mg/m2 weekly)and radiation. He is feeling well today. He still denies dysphagia. He is eating and drinking well. His biggest problem is his hoarse voice. Initial Visit, January 30, 2025: Chad Mckeon pr (more content not included)... [facility] 03-16-2025 Note HNO ID: [id number] Author: Gisella GRANT MD Service: ? Author Type: Physician Type: Progress Notes Filed: 03/16/2025 16:20 Note Text: Radiation Oncology - On Treatment Review (OTR) Note PATIENT NAME: Chad Mckeon PATIENT DIAGNOSIS: 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 COURSE: definitive and concurrent chemotherapy Area Treated: Larynx, bilateral neck Current dose: 800 Gy in 4 fx Planned dose: 7000 Gy in 35 fx SUBJECTIVE: Increased fatigue, no other changes. PHYSICAL EXAM: 03/16/25 1503 BP: 152/74 BP Site: Left Arm BP Position: Sitting BP Cuff Size: Regular Adult Pulse: 81 Resp: 18 Temp: 36.1 ?C (97 ?F) TempSrc: Temporal SpO2: 97% Weight: 90.2 kg (198 lb 13.7 oz) Height: 173 cm (5' 8.11 ) KPS: 100 General Appearance: Alert and oriented. No acute distress. Radiation dermatitis: No Mucositis: No Oral cavity and oropharynx: lips and gums normal, oral and pharyngeal mucosa moist, palate elevates normally, tongue mobile and without palpable lesions, tonsils without masses Neck: Normal ROM. No palpable cervical or supraclavicular adenopathy. IMAGING/LAB RESULTS: Hemoglobin (g/dL) Date Value 03/11/2025 14.9 Hematocrit (%) Date Value 03/11/2025 42.5 WBC (k/uL) Date Value 03/11/2025 8.74 Platelet Count (k/uL) Date Value 03/11/2025 146 TOXICITY ASSESSMENT (CTCv4): Dysphagia:grade 0 - No symptoms Mucositis: grade 0 - No symptoms Radiation dermatitis: grade 0 - No symptoms Trismus: grade 0 - No symptoms Voice Changes:grade 2 - Moderate or persistent change from normal voice; still understandable Xerostomia: grade 0 - No symptoms Treatment chart checked: Yes Patient treatment site reviewed and verified:Yes Port films reviewed and current:Yes Medications started: None ASSESSMENT: Patient doing well. Chart and imaging reviewed. Continue radiation as outlined. Gisella Grant MD [facility] 03-16-2025 History of Present illness Narrative Radiation Oncology - On Treatment Review (OTR) Note PATIENT NAME: Chad Mckeon PATIENT DIAGNOSIS: 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 COURSE: definitive and concurrent chemotherapy Area Treated: Larynx, bilateral neck Current dose: 800 Gy in 4 fx Planned dose: 7000 Gy in 35 fx SUBJECTIVE: Increased fatigue, no other changes. PHYSICAL EXAM: 03/16/25 1503 BP: 152/74 BP Site: Left Arm BP Position: Sitting BP Cuff Size: Regular Adult Pulse: 81 Resp: 18 Temp: 36.1 C (97 F) TempSrc: Temporal SpO2: 97% Weight: 90.2 kg (198 lb 13.7 oz) Height: 173 cm (5' 8.11 ) KPS: 100 General Appearance: Alert and oriented. No acute distress. Radiation dermatitis: No Mucositis: No Oral cavity and oropharynx: lips and gums normal, oral and pharyngeal mucosa moist, palate elevates normally, tongue mobile and without palpable lesions, tonsils without masses Neck: Normal ROM. No palpable cervical or supraclavicular adenopathy. IMAGING/LAB RESULTS: Hemoglobin (g/dL) Date Value 03/11/2025 14.9 Hematocrit (%) Date Value 03/11/2025 42.5 WBC (k/uL) Date Value 03/11/2025 8.74 Platelet Count (k/uL) Date Value 03/11/2025 146 TOXICITY ASSESSMENT (CTCv4): Dysphagia:grade 0 - No symptoms Mucositis: grade 0 - No symptoms Radiation dermatitis: grade 0 - No symptoms Trismus: grade 0 - No symptoms Voice Changes:grade 2 - Moderate or persistent change from normal voice; still understandable Xerostomia: grade 0 - No symptoms Treatment chart checked: Yes Patient treatment site reviewed and verified:Yes Port films reviewed and current:Yes Medications started: None ASSESSMENT: Patient doing well. Chart and imaging reviewed. Continue radiation as outlined. Gisella Grant MD documented in this encounter [facility] 03-16-2025 Telephone encounter Note CYCLE 1/DAY 1 POST TREATMENT CALL Today's date: March 16, 2025 Treatment Regimen: Cisplatin C1D1 Date: 03/11/25 Called patient to follow-up on symptom management. Spoke with patient. SYMPTOM ASSESSMENT Neuro: Headache - Occasional. Relieved w/ Alleve. and Numbness/Weakness/Tingling - Nothing new. CV/Resp: None GI/: Appetite: decreased appetite. Reports he's eating, but food doesn't look good. Denies any trouble swallowing. Plans to start boost today, Fluid intake: 3-4 cups of coffee and 1 - 1.5 quarts of water per day, Constipation: yes, last BM yesterday. Reports he increased his Miralax from 2 tsp/day to 2 heaping tsp/day, and Bladder/Urinary Changes: Notes his urine stream was slow to start and weaker on Sunday and Sunday. Denies any issues today. Integument: None Activity: Patient reported decreased energy level Do you need to take naps? No Rates his fatigue 8-10. Sleeps at 9 PM and then wakes up 3-4 time per night. Pain: No=0 (pain 0 on a scale of 0-10). Fever: No Chills: No Any new referrals needed? No Reinforced CURRENT treatment education based on current and anticipated symptoms. Discussed port/line care and patient verbalizes understanding: Not Applicable Patient instructed to contact office or after hours Hematology/Oncology fellow for: temperature >= 100.4; questions or concerns. Patient verbalized understanding of when to seek medical attention and after hours number protocol. Vladimir Finley RN [facility] Work Phone: 03-16-2025 Miscellaneous Notes CYCLE 1/DAY 1 POST TREATMENT CALL Today's date: March 16, 2025 Treatment Regimen: Cisplatin C1D1 Date: 03/11/25 Called patient to follow-up on symptom management. Spoke with patient. SYMPTOM ASSESSMENT Neuro: Headache - Occasional. Relieved w/ Alleve. and Numbness/Weakness/Tingling - Nothing new. CV/Resp: None GI/: Appetite: decreased appetite. Reports he's eating, but food doesn't look good. Denies any trouble swallowing. Plans to start boost today, Fluid intake: 3-4 cups of coffee and 1 - 1.5 quarts of water per day, Constipation: yes, last BM yesterday. Reports he increased his Miralax from 2 tsp/day to 2 heaping tsp/day, and Bladder/Urinary Changes: Notes his urine stream was slow to start and weaker on Sunday and Sunday. Denies any issues today. Integument: None Activity: Patient reported decreased energy level Do you need to take naps? No Rates his fatigue 8. Sleeps at 9 PM and then wakes up 3-4 time per night. Pain: No=0 (pain 0 on a scale of 0-10). Fever: No Chills: No Any new referrals needed? No Reinforced CURRENT treatment education based on current and anticipated symptoms. Discussed port/line care and patient verbalizes understanding: Not Applicable Patient instructed to contact office or after hours Hematology/Oncology fellow for: temperature >= 100.4; questions or concerns. Patient verbalized understanding of when to seek medical attention and after hours number protocol. Vladimir Finley RN documented in this encounter [facility] 03-11-2025 History of Present illness Narrative Radiation Oncology - On Treatment Review (OTR) Note PATIENT NAME: Chad Mckeon PATIENT DIAGNOSIS: 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 COURSE: definitive and concurrent chemotherapy Area Treated: Larynx, bilateral neck Current dose: 200 Gy in 1 fx Planned dose: 7000 Gy in 35 fx SUBJECTIVE: No new issues. PHYSICAL EXAM: KPS: 100 General Appearance: Alert and oriented. No acute distress. Radiation dermatitis: No Mucositis: No Oral cavity and oropharynx: lips and gums normal, oral and pharyngeal mucosa moist, palate elevates normally, tongue mobile and without palpable lesions, tonsils without masses Neck: Normal ROM. No palpable cervical or supraclavicular adenopathy. IMAGING/LAB RESULTS: Hemoglobin (g/dL) Date Value 03/11/2025 14.9 Hematocrit (%) Date Value 03/11/2025 42.5 WBC (k/uL) Date Value 03/11/2025 8.74 Platelet Count (k/uL) Date Value 03/11/2025 146 TOXICITY ASSESSMENT (CTCv4): Dysphagia:grade 0 - No symptoms Mucositis: grade 0 - No symptoms Radiation dermatitis: grade 0 - No symptoms Trismus: grade 0 - No symptoms Voice Changes:grade 2 - Moderate or persistent change from normal voice; still understandable Xerostomia: grade 0 - No symptoms Treatment chart checked: Yes Patient treatment site reviewed and verified:Yes Port films reviewed and current:Yes Medications started: None ASSESSMENT: Patient starting radiation today. Plan of care and expectations again reviewed. Plan, MU calculations and qa report reviewed. Initial imaging including cone beam ct and verification reviewed and approved. First treatment given. Continue radiation as prescribed. Gisella Grant MD documented in this encounter [facility] 03-11-2025 Note HNO ID: [id number] Author: Gisella GRANT MD Service: ? Author Type: Physician Type: Progress Notes Filed: 03/11/2025 16:02 Note Text: Radiation Oncology - On Treatment Review (OTR) Note PATIENT NAME: Chad Mckeon PATIENT DIAGNOSIS: 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 COURSE: definitive and concurrent chemotherapy Area Treated: Larynx, bilateral neck Current dose: 200 Gy in 1 fx Planned dose: 7000 Gy in 35 fx SUBJECTIVE: No new issues. PHYSICAL EXAM: KPS: 100 General Appearance: Alert and oriented. No acute distress. Radiation dermatitis: No Mucositis: No Oral cavity and oropharynx: lips and gums normal, oral and pharyngeal mucosa moist, palate elevates normally, tongue mobile and without palpable lesions, tonsils without masses Neck: Normal ROM. No palpable cervical or supraclavicular adenopathy. IMAGING/LAB RESULTS: Hemoglobin (g/dL) Date Value 03/11/2025 14.9 Hematocrit (%) Date Value 03/11/2025 42.5 WBC (k/uL) Date Value 03/11/2025 8.74 Platelet Count (k/uL) Date Value 03/11/2025 146 TOXICITY ASSESSMENT (CTCv4): Dysphagia:grade 0 - No symptoms Mucositis: grade 0 - No symptoms Radiation dermatitis: grade 0 - No symptoms Trismus: grade 0 - No symptoms Voice Changes:grade 2 - Moderate or persistent change from normal voice; still understandable Xerostomia: grade 0 - No symptoms Treatment chart checked: Yes Patient treatment site reviewed and verified:Yes Port films reviewed and current:Yes Medications started: None ASSESSMENT: Patient starting radiation today. Plan of care and expectations again reviewed. Plan, MU calculations and qa report reviewed. Initial imaging including cone beam ct and verification reviewed and approved. First treatment given. Continue radiation as prescribed. Gisella Grant MD [facility] 03-11-2025 History of Present illness Narrative Images from the original note were not included. NAME: Chad Mckeon NO.: [id number] DATE OF SERVICE: March 11, 2025 Referring Provider: (Elements copied from the note dated January 30, 2025, have been reviewed and updated where appropriate, and all reflect current assessment and medical decision making during today's encounter, March 11, 2025) Additional Clinicians involved in Chad Mckeon's care: Elaine Jarquin DIAGNOSIS: CASE SUMMARY / ASSESSMENT: 84 year old man with vocal cord squamous cell cancer presents to start concurrent chemotherapy with radiation for organ preservation. He underwent bronchoscopy 02/24/25 to further evaluate a mediastinal/right paratracheal node found on PET scan. Pathology was negative for malignant cells. Today we are starting definitive treatment with concurrent chemotherapy and radiation. SUMMARIZED PLAN OF CARE: 1. 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 Patient to start weekly Cisplatin 40 mg/m2 with radiation today . Follow up weekly with labs prior to each treatment. All of his questions were answered. CASE HISTORY: Reverse Chronological Order 02/24/2025 Bronchoscopy Pathology of FNA transbronchial LN A - Lymph Node, Transbronchial, FNA - 11RS Negative for malignant cells. Benign lymphoid sample. B - Lymph Node, Transbronchial, FNA - 4R Negative for malignant cells. Benign lymphoid sample. 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 (01/07/2025) Laryngoscopic Examination: Left true vocal cord mass with fixation. HPI: Updated Visit, March 11, 2025: Mr. 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 Since his last visit, he underwent bronchoscopy 02/24/25 to further evaluate a mediastinal/right paratracheal node found on PET scan. Pathology was negative for malignant cells. Today we are starting definitive treatment with concurrent chemotherapy (cisplatin 40 mg/m2 weekly)and radiation. He is feeling well today. He still denies dysphagia. He is eating and drinking well. His biggest problem is his hoarse voice. Initial Visit, January 30, 2025: Chad Mckeon presents today Hematology and Oncology evaluation. He is a 84 year old male. 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 Body surface area is 2.09 meters squared. General: Alert and oriented, no distress, pleasant and cooperative. Heart: Regular, normal S1 and S2, no murmurs, rubs, or gallops Lungs: Clear to auscultation bilaterally Abdomen: Benign Extremities: Feet/ankles without edema ALLERGIES: ALLERGIES No Known Allergies MEDICATIONS: naproxen sodium (ALEVE) 220 mg tablet Take 220 mg by mouth two times a day with meals. ondansetron (ZOFRAN) 8 mg tablet Take 1 tablet by mouth every 8 hours as needed for nausea/vomiting. prochlorperazine (COMPAZINE) 10 mg tablet Take 1 tablet by mouth every 6 hours as needed. aspirin, enteric coated (ASPIRIN, ENTERIC COATED) 81 mg EC tablet Take 81 mg by mouth once daily. atorvastatin (LIPITOR) 40 mg tablet Take 40 mg by mouth daily at bedtime. cetirizine (ZYRTEC) 10 mg tablet Take 10 mg by mouth once daily. glimepiride (AMARYL) 4 mg tablet TAKE ONE TABLET BY MOUTH ONCE DAILY WITH BREAKFAST OR THE FIRST MAIN MEAL OF THE DAY magnesium oxide (MAG-OX) 400 mg (241.3 mg magnesium) tablet Take 1 tablet by mouth once daily. metFORMIN (GLUCOPHAGE) 500 mg tablet take one [...] A/vit C/vit E/zinc/copper (PRESERVISION AREDS ORAL) Take 2 tablets by mouth once daily. calcium carbonate/vitamin D3 (CALCIUM WITH VITAMIN D3 ORAL) Take 2 tablets by mouth once daily. LABORATORY VALUES: WBC (k/uL) Date Value 03/11/2025 8.74 RBC (m/uL) Date Value 03/11/2025 4.70 Hemoglobin (g/dL) Date Value 03/11/2025 14.9 Hematocrit (%) Date Value 03/11/2025 42.5 MCV (fL) Date Value 03/11/2025 90.4 MCH (pg) Date Value 03/11/2025 31.7 MCHC (g/dL) Date Value 03/11/2025 35.1 RDW-CV (%) Date Value 03/11/2025 13.5 Platelet Count (k/uL) Date Value 03/11/2025 146 (L) MPV (fL) Date Value 03/11/2025 8.1 (L) Glucose (mg/dL) Date Value 03/11/2025 218 (H) BUN (mg/dL) Date Value 03/11/2025 15 Creatinine (mg/dL) Date Value 03/11/2025 0.93 Sodium (mmol/L) Date Value 03/11/2025 137 Potassium (mmol/L) Date Value 03/11/2025 4.4 Chloride (mmol/L) Date Value 03/11/2025 100 CO2 (mmol/L) Date Value 03/11/2025 26 Protein, Total (g/dL) Date Value 03/11/2025 6.8 Albumin (g/dL) Date Value 03/11/2025 4.2 Calcium, Total (mg/dL) Date Value 03/11/2025 10.0 Alkaline Phosphatase (U/L) Date Value 03/11/2025 133 (H) Bilirubin, Total (mg/dL) Date Value 03/11/2025 0.6 AST (U/L) Date Value 03/11/2025 18 ALT (U/L) Date Value 03/11/2025 19 DIAGNOSIS: (C32.0) 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 I spent a total of 30 minutes on the date of the service which included preparing to see the patient, [id number] patient care, completing clinical documentation, obtaining and/or reviewing separately obtained history, performing a medically appropriate examination, counseling and educating the patient/family/caregiver, ordering medications, tests, or procedures, independently interpreting results (not separately reported), communicating results to the patient/family/caregiver, and care coordination (not separately reported). Bekah Perdomo PA-C Hematology and Oncology Services Provided at: [place], [place] CC: Gisella Juarez MD [id number] [facility] [id number] documented in this encounter [facility] 03-11-2025 Note HNO ID: [id number] Author: BEKAH PERDOMO PA-C Service: ? Author Type: Physician Paint Prepper Type: Progress Notes Filed: 03/11/2025 11:21 Note Text: NAME: Chad Mckeon NO.: [id number] DATE OF SERVICE: March 11, 2025 Referring Provider: (Elements copied from the note dated January 30, 2025, have been reviewed and updated where appropriate, and all reflect current assessment and medical decision making during today's encounter, March 11, 2025) Additional Clinicians involved in Chad Mckeon's care: Elaine Jarquin DIAGNOSIS: CASE SUMMARY / ASSESSMENT: 84 year old man with vocal cord squamous cell cancer presents to start concurrent chemotherapy with radiation for organ preservation. He underwent bronchoscopy 02/24/25 to further evaluate a mediastinal/right paratracheal node found on PET scan. Pathology was negative for malignant cells. Today we are starting definitive treatment with concurrent chemotherapy and radiation. SUMMARIZED PLAN OF CARE: 1. 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 Patient to start weekly Cisplatin 40 mg/m2 with radiation today . Follow up weekly with labs prior to each treatment. All of his questions were answered. CASE HISTORY: Reverse Chronological Order 02/24/2025 Bronchoscopy Pathology of FNA transbronchial LN A - Lymph Node, Transbronchial, FNA - 11RS Negative for malignant cells. Benign lymphoid sample. B - Lymph Node, Transbronchial, FNA - 4R Negative for malignant cells. Benign lymphoid sample. 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 (01/07/2025) Laryngoscopic Examination: Left true vocal cord mass with fixation. HPI: Updated Visit, March 11, 2025: Mr. 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 Since his last visit, he underwent bronchoscopy 02/24/25 to further evaluate a mediastinal/right paratracheal node found on PET scan. Pathology was negative for malignant cells. Today we are starting definitive treatment with concurrent chemotherapy (cisplatin 40 mg/m2 weekly)and radiation. He is feeling well today. He still denies dysphagia. He is eating and drinking well. His biggest problem is his hoarse voice. Initial Visit, January 30, 2025: Chad Mckeon presents today Hematology and Oncology evaluation. He is a 84 year old male. 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 [facility] 03-03-2025 Telephone encounter Note The following approved medication requests have been transmitted electronically. Requested Prescriptions Signed Prescriptions Disp Refills ondansetron (ZOFRAN) 8 mg tablet 90 tablet 1 Sig: Take 1 tablet by mouth every 8 hours as needed for nausea/vomiting. Authorizing Provider: SANDEEP FLYNN prochlorperazine (COMPAZINE) 10 mg tablet 100 tablet 1 Sig: Take 1 tablet by mouth every 6 hours as needed. Authorizing Provider: SANDEEP FLYNN APRN.DIRECTOR CENTER [facility] 03-03-2025 Miscellaneous Notes The following approved medication requests have been transmitted electronically. Requested Prescriptions Signed Prescriptions Disp Refills ondansetron (ZOFRAN) 8 mg tablet 90 tablet 1 Sig: Take 1 tablet by mouth every 8 hours as needed for nausea/vomiting. Authorizing Provider: SANDEEP FLYNN prochlorperazine (COMPAZINE) 10 mg tablet 100 tablet 1 Sig: Take 1 tablet by mouth every 6 hours as needed. Authorizing Provider: SANDEEP FLYNN APRN.DIRECTOR CENTER Pt's original scripts were auto dc'd. Will be starting treatment on 03/11. New scripts pended. Vladimir Finley RN documented in this encounter [facility] 03-03-2025 Note HNO ID: [id number] Author: VLADIMIR FINLEY RN Service: ? Author Type: Registered Nurse Type: Progress Notes Filed: 03/03/2025 11:16 Note Text: ONCOLOGY PATIENT EDUCATION NOTE TOPIC: Chemotherapy, Medications: Cisplatin Patient and spouse here today for education for treatment of Head and Neck Cancer Anticipated/Scheduled start date: 03/11/25 READINESS TO LEARN: COGNITIVE ABILITY: Alert and oriented MOTIVATION TO LEARN: Interested FAMILY SUPPORT: High - Very involved in pt care INSTRUCTION PROVIDED TO: Patient and Spouse INSTRUCTION PROVIDED BY: Nurse Coordinator and Pharmacist PATIENT LEARNS BEST BY: Verbal Instruction FACTORS AFFECTING LEARNING: None PHYSICAL LIMITATIONS AFFECTING LEARNING: Sensory Deficit Sight: Corrective lenses - Pt has a h/o macular degeneration. LEARNING RESPONSE METHOD OF INSTRUCTION: Individual instruction Written instruction/Handouts Verbal instruction PATIENT/FAMILY RESPONSE: Verbalizes understanding of: CHEMOTHERAPY-Regimen, toxicity and side effects INFECTION MANAGEMENT-Signs and symptoms of an infection and importance of contacting the physician POST-PROCEDURE INSTRUCTIONS-Correct actions to take to reduce post procedure complications SYMPTOM MANAGEMENT-Correct actions to take to manage symptoms associated with his/her disease/illness WORSENING CONDITION-Signs and symptoms of a worsening condition that warrant a call to the physician Information received as demonstrated by interest and questions FOLLOW UP PLAN: Patient instructed to call with any further issues Contact information given. SUPPLEMENTAL MATERIAL: Written material was provided at this visit with the following information: - Chemotherapy education was provided by a pharmacist YES - Side effect management information was provided/discussed including but not limited to: anemia, bowel habit changes, diet, electrolyte disturbances, fatigue, hair loss, hearing impairment, infection, kidney toxicity, nausea/vomitting, neutropenia, peripheral neuropathy, skin changes, thrombocytopenia YES - Provided important phone numbers and contacts during and after hours. YES - Provided information on symptoms that require immediate assistance. YES - Provided Chemotherapy when to call handouts YES - Preventing infection. YES - Treatment schedule and confirmation of appointment times. YES - Available support groups. YES - The importance of contraception during the course of chemotherapy YES - Prescriptions for anti-emetics or treatment prep was given: Compazine and Zofran. YES - A tour was given of the infusion suite with directions for the first day. YES - Neutropenic fever protocol discussed with patient, which included the importance of reporting any fever of 100.4F (38.0C) or greater to the healthcare team as noted on the provided wallet card and/or magnet. YES - Patient services information. YES Time Spent: 50 minutes REFERRAL (RECOMMENDATION): N/A Vladimir Finley RN [facility] 03-03-2025 History of Present illness Narrative ONCOLOGY PATIENT EDUCATION NOTE TOPIC: Chemotherapy, Medications: Cisplatin Patient and spouse here today for education for treatment of Head and Neck Cancer Anticipated/Scheduled start date: 03/11/25 READINESS TO LEARN: COGNITIVE ABILITY: Alert and oriented MOTIVATION TO LEARN: Interested FAMILY SUPPORT: High - Very involved in pt care INSTRUCTION PROVIDED TO: Patient and Spouse INSTRUCTION PROVIDED BY: Nurse Coordinator and Pharmacist PATIENT LEARNS BEST BY: Verbal Instruction FACTORS AFFECTING LEARNING: None PHYSICAL LIMITATIONS AFFECTING LEARNING: Sensory Deficit Sight: Corrective lenses - Pt has a h/o macular degeneration. LEARNING RESPONSE METHOD OF INSTRUCTION: Individual instruction Written instruction/Handouts Verbal instruction PATIENT/FAMILY RESPONSE: Verbalizes understanding of: CHEMOTHERAPY-Regimen, toxicity and side effects INFECTION MANAGEMENT-Signs and symptoms of an infection and importance of contacting the physician POST-PROCEDURE INSTRUCTIONS-Correct actions to take to reduce post procedure complications SYMPTOM MANAGEMENT-Correct actions to take to manage symptoms associated with his/her disease/illness WORSENING CONDITION-Signs and symptoms of a worsening condition that warrant a call to the physician Information received as demonstrated by interest and questions FOLLOW UP PLAN: Patient instructed to call with any further issues Contact information given. SUPPLEMENTAL MATERIAL: Written material was provided at this visit with the following information: - Chemotherapy education was provided by a pharmacist YES - Side effect management information was provided/discussed including but not limited to: anemia, bowel habit changes, diet, electrolyte disturbances, fatigue, hair loss, hearing impairment, infection, kidney toxicity, nausea/vomitting, neutropenia, peripheral neuropathy, skin changes, thrombocytopenia YES - Provided important phone numbers and contacts during and after hours. YES - Provided information on symptoms that require immediate assistance. YES - Provided Chemotherapy when to call handouts YES - Preventing infection. YES - Treatment schedule and confirmation of appointment times. YES - Available support groups. YES - The importance of contraception during the course of chemotherapy YES - Prescriptions for anti-emetics or treatment prep was given: Compazine and Zofran. YES - A tour was given of the infusion suite with directions for the first day. YES - Neutropenic fever protocol discussed with patient, which included the importance of reporting any fever of 100.4F (38.0C) or greater to the healthcare team as noted on the provided wallet card and/or magnet. YES - Patient services information. YES Time Spent: 50 minutes REFERRAL (RECOMMENDATION): N/A Vladimir Finley RN documented in this encounter [facility] 03-03-2025 Telephone encounter Note Pt's original scripts were auto dc'd. Will be starting treatment on 03/11. New scripts pended. Vladimir Finley RN [facility] Work Phone: 03-03-2025 History of Present illness Narrative Images from the original note were not included. [facility] Department of Pharmacy Oncology Pharmacy Medication Education Patient Name: Chad Mckeon Primary Oncologist: Cassidy Diagnosis: 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 Concurrent with XRT Drug Interactions: Clinically significant interactions with chemotherapy, immunosuppression, or other standard of care treatment plan medications anticipated: No. There are no pertinent drug interactions identified. Patient was counseled accordingly. Allergies: Patient confirmed allergies documented in Epic are correct: Yes Was medication education provided?: Yes Medication Education: Administration and schedule: CISPLATIN 40 D1,8,15,22,29,36,43 - ONCE Potential side effects discussed: yes PO chemo: Not applicable Was medication reconciliation performed?: Yes Changes made to medication list? Yes The following medications were updated within the home medication list: Medications ADDED to home medication list: Naproxen (aleve) Medications UPDATED on home medication list: Aspirin Calcium/vit d3 Mag-ox preservision Current Outpatient Medications Medication Sig naproxen sodium (ALEVE) 220 mg tablet Take 220 mg by mouth two times a day with meals. aspirin, enteric coated (ASPIRIN, ENTERIC COATED) 81 mg EC tablet Take 81 mg by mouth. atorvastatin (LIPITOR) 40 mg tablet Take 40 mg by mouth daily at bedtime. cetirizine (ZYRTEC) 10 mg tablet Take 10 mg by mouth once daily. glimepiride (AMARYL) 4 mg tablet TAKE ONE [...] WITH VITAMIN D3 ORAL) Take by mouth. No current facility-administered medications for this visit. - Chemotherapy education was provided by a pharmacist YES Thank you for allowing us to participate in the care of this patient. I spent 15 time (15 minute increments) with the patient Blanca Hernandez RPh documented in this encounter [facility] 03-03-2025 Note HNO ID: [id number] Author: BLANCA HERNANDEZ RPh Service: ? Author Type: Pharmacist Type: Progress Notes Filed: 03/03/2025 11:11 Note Text: [facility] Department of Pharmacy Oncology Pharmacy Medication Education Patient Name: Chad Mckeon Primary Oncologist: Cassidy Diagnosis: 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 Concurrent with XRT Drug Interactions: Clinically significant interactions with chemotherapy, immunosuppression, or other standard of care treatment plan medications anticipated: No. There are no pertinent drug interactions identified. Patient was counseled accordingly. Allergies: Patient confirmed allergies documented in Epic are correct: Yes Was medication education provided?: Yes Medication Education: Administration and schedule: CISPLATIN 40 D1,8,15,22,29,36,43 - ONCE Potential side effects discussed: yes PO chemo: Not applicable Was medication reconciliation performed?: Yes Changes made to medication list? Yes The following medications were updated within the home medication list: Medications ADDED to home medication list: Naproxen (aleve) Medications UPDATED on home medication list: Aspirin Calcium/vit d3 Mag-ox preservision Current Outpatient Medications Medication Sig naproxen sodium (ALEVE) 220 mg tablet Take 220 mg by mouth two times a day with meals. aspirin, enteric coated (ASPIRIN, ENTERIC COATED) 81 mg EC tablet Take 81 mg by mouth. atorvastatin (LIPITOR) 40 mg tablet Take 40 mg by mouth daily at bedtime. cetirizine (ZYRTEC) 10 mg tablet Take 10 mg by mouth once daily. glimepiride (AMARYL) 4 mg tablet TAKE ONE [...] WITH VITAMIN D3 ORAL) Take by mouth. No current facility-administered medications for this visit. - Chemotherapy education was provided by a pharmacist YES Thank you for allowing us to participate in the care of this patient. I spent 15 time (15 minute increments) with the patient Blanca Hernandez, [facility] 03-03-2025 Note HNO ID: [id number] Author: Gisella GRANT MD Service: ? Author Type: Physician Type: Progress Notes Filed: 03/03/2025 10:52 Note Text: sim [facility] 03-03-2025 History of Present illness Narrative sim documented in this encounter [facility] 03-03-2025 Note HNO ID: [id number] Author: Gisella GRANT MD Service: ? Author Type: Physician Type: Progress Notes Filed: 03/03/2025 10:51 Note Text: Radiation Oncology - New Patient/Consult Note PATIENT NAME: Chad Mckeon PATIENT : 1940 DIAGNOSIS: 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 Date of Diagnosis: January 02, 2025 Primary Site: Larynx Glottic Laterality: Left HPI: Patient returns after bronchoscopy with EBUS. Biopsy of suspicious paratracheal without evidence of malignancy. Patient denies any new problems or changes. He is here for simulation today. PET scans 01/28/2025 demonstrated: IMPRESSION PRIMARY DISEASE [...] Take 10 mg by mouth once daily. glimepiride (AMARYL) 4 mg tablet TAKE ONE [...] extremities As noted in HPI PHYSICAL EXAM: General Ap (more content not included)... [facility] 03-03-2025 History of Present illness Narrative Radiation Oncology - New Patient/Consult Note PATIENT NAME: Chad Mckeon PATIENT : 1940 DIAGNOSIS: 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 Date of Diagnosis: January 02, 2025 Primary Site: Larynx Glottic Laterality: Left HPI: Patient returns after bronchoscopy with EBUS. Biopsy of suspicious paratracheal without evidence of malignancy. Patient denies any new problems or changes. He is here for simulation today. PET scans 01/28/2025 demonstrated: IMPRESSION PRIMARY DISEASE [...] Take 10 mg by mouth once daily. glimepiride (AMARYL) 4 mg tablet TAKE ONE [...] extremities As noted in HPI PHYSICAL EXAM: General Appearance: Alert and oriented. No acute distress. Neck: Normal ROM. No palpable cervical or supraclavicular adenopathy. Lymphatics: No palpable lymphadenopathy. Hematologic: No signs of active bleeding. RADIOLOGY/LABORATORY DATA: see HPI ASSESSMENT/PLAN: 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 T3 squamous cell carcinoma of the left vocal cord with extension into the supraglottis. Bronchoscopy and EBUS with negative biopsy right paratracheal node. Given this we will plan to proceed with definitive treatment. Simulation today. Will plan to coordinate concurrent chemotherapy with Dr. Burgos. Signed by: Gisella Grant MD cc: MD Austin Morrow MD [id number] [id number] documented in this encounter [facility] 03-03-2025 History of Present illness Narrative CHAD MCKEON [id number] 03/03/2025 [facility] Radiation Oncology Department SIMULATION NOTE DATE OF SIMULATION: 03/03/2025 THERAPIST: Betty LafontaineCourtney Carlos MACHINE: [employer] mCT DIAGNOSIS: Malignant neoplasm of [id number] AREA: HEAD/NECK CONTRAST: IV 100ML OF OMNI 300 WAS INJECTED VIA RT WRIST Consent in Epic: Yes PATIENT POSITION: Supine. FIXATION DEVICE: In order to achieve accurate and reproducible treatments, the patient is immobilized with THE ORFIT AIO SYSTEM. A CUSTOM 5 POINT MASK WAS MADE A time-out was conducted and recorded by the therapist. CT scan was completed for target localization and planning. Field arrangement will be determined after plan has been completed. The patient is scheduled for a verification simulation on the treatment machine to ensure proper set-up and field arrangement is correct prior to the first treatment of primary and boost jensen if applicable. Patient education will be completed per nursing. Electronically Signed Glenn Grant M.D. / FRANCISCO 54:02 PM documented in this encounter [facility] 03-03-2025 History of Present illness Narrative CHAD MCKEON [id number] 03/03/2025 [facility] [place] [facility] - Department of Radiation Oncology Treatment Planning Note For reasons stated in the consult note, Chad Mckeon is a candidate for radiation therapy. Based on review and interpretation of the relevant diagnostic studies together with the exam findings, Chad Mckeon was simulated on 03/03/2025 at which time the target volume and/or requisite jensen were delineated, as indicated in the simulation note, to be treated according to the prescription. The treatment target and organs at risk were contoured on the simulation scan Using the fused PET. Special consideration to these and other structures was given in light of the potential for increased toxicities of combined chemoradiation. After reviewing multiple treatment plans with dosimetry, the best plan was approved to deliver the prescribed course of radiation to the target area using inverse planning to allow for the best isodose distribution, treating to the 96.8% isodose line with 10MV and 3 jensen. Custom MLC for IMRT were the treatment device used to shape/modify the beams. Limiting dose to normal tissue was confirmed upon review of the calculated dose volume histogram. IMRT planning was used because it best met the dose/volume constraints for the organs at risk for this patient, better than what could be achieved using conventional or 3D planning. The specific dose requirements for the PTV, organs at risk and dose-volume histograms are contained in this treatment plan and/or elsewhere in the medical record. A completed summary of this plan dated 03/10/2025 incorporated herein by reference includes dose, beam arrangements, energy, blocking, isodose distribution, and/or ports and DVH. Electronically Signed Glenn Grant M.D. 59:30 AM documented in this encounter [facility] 03-03-2025 Note HNO ID: [id number] Author: Gisella GRANT MD Service: ? Author Type: Physician Type: Progress Notes Filed: 03/03/2025 16:02 Note Text: CHAD MCKEON [id number] 03/03/2025 [facility] Radiation Oncology Department SIMULATION NOTE DATE OF SIMULATION: 03/03/2025 THERAPIST: Betty Gonzalez MACHINE: [employer] mCT DIAGNOSIS: Malignant neoplasm of [id number] AREA: HEAD/NECK CONTRAST: IV 100ML OF OMNI 300 WAS INJECTED VIA RT WRIST Consent in Epic: Yes PATIENT POSITION: Supine. FIXATION DEVICE: In order to achieve accurate and reproducible treatments, the patient is immobilized with THE ORFIT AIO SYSTEM. A CUSTOM 5 POINT MASK WAS MADE A time-out was conducted and recorded by the therapist. CT scan was completed for target localization and planning. Field arrangement will be determined after plan has been completed. The patient is scheduled for a verification simulation on the treatment machine to ensure proper set-up and field arrangement is correct prior to the first treatment of primary and boost jensen if applicable. Patient education will be completed per nursing. Electronically Signed Glenn Grant M.D. 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 - ondansetron (ZOFRAN) 8 mg tablet Take 1 tablet by mouth every 8 hours as needed for nausea/vomiting. - prochlorperazine (COMPAZINE) 10 mg tablet Take 1 tablet by mouth every 6 hours as needed. - aspirin, enteric coated (ASPIRIN, ENTERIC COATED) 81 mg EC tablet Take 81 mg by mouth once daily. - atorvastatin (LIPITOR) 40 mg tablet Take 40 mg by mouth daily at bedtime. - cetirizine (ZYRTEC) 10 mg tablet Take 10 mg by mouth once daily. - glimepiride (AMARYL) 4 mg tablet TAKE ONE TABLET BY MOUTH ONCE DAILY WITH BREAKFAST OR THE FIRST MAIN MEAL OF THE DAY - magnesium oxide (MAG-OX) 400 mg (241.3 mg magnesium) tablet Take 1 tablet by mouth once daily. - metFORMIN (GLUCOPHAGE) 500 mg tablet take one tablet by mouth twice a day for 30 days - metoprolol tartrate, short acting, (LOPRESSOR) 25 mg tablet Take 12.5 mg by mouth two times a day. - potassium chloride ER (KLOR-CON) 20 mEq tablet Take 20 mEq by mouth daily with food. - JANUVIA 100 mg tablet 1 tablet Orally Once a day for 30 days - vit A/vit C/vit E/zinc/copper (PRESERVISION AREDS ORAL) Take 2 tablets by mouth once daily. - calcium carbonate/vitamin D3 (CALCIUM WITH VITAMIN D3 ORAL) Take 2 tablets by mouth once daily. Encounter Status:Closed by VLADIMIR FINLEY on 03/03/25 [facility] 03-03-2025 Note HNO ID: [id number] Author: Gisella GRANT MD Service: ? Author Type: Physician Type: Progress Notes Filed: 03/10/2025 09:30 Note Text: CHAD MCKEON [id number] 03/03/2025 [facility] [place] [facility] - Department of Radiation Oncology Treatment Planning Note For reasons stated in the consult note, Chad Mckeon is a candidate for radiation therapy. Based on review and interpretation of the relevant diagnostic studies together with the exam findings, Chad Mckeon was simulated on 03/03/2025 at which time the target volume and/or requisite jensen were delineated, as indicated in the simulation note, to be treated according to the prescription. The treatment target and organs at risk were contoured on the simulation scan Using the fused PET. Special consideration to these and other structures was given in light of the potential for increased toxicities of combined chemoradiation. After reviewing multiple treatment plans with dosimetry, the best plan was approved to deliver the prescribed course of radiation to the target area using inverse planning to allow for the best isodose distribution, treating to the 96.8% isodose line with 10MV and 3 jensen. Custom MLC for IMRT were the treatment device used to shape/modify the beams. Limiting dose to normal tissue was confirmed upon review of the calculated dose volume histogram. IMRT planning was used because it best met the dose/volume constraints for the organs at risk for this patient, better than what could be achieved using conventional or 3D planning. The specific dose requirements for the PTV, organs at risk and dose-volume histograms are contained in this treatment plan and/or elsewhere in the medical record. A completed summary of this plan dated 03/10/2025 incorporated herein by reference includes dose, beam arrangements, energy, blocking, isodose distribution, and/or ports and DVH. Electronically Signed Glenn Grant M.D. 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 or unresponsive Staffing Anesthesiologist: Demi Coulter MD SUPERVISOR PAPER COATING: Toshia Noel APRN.SUPERVISOR PAPER COATING Performed by: JOHAN Indications and Patient Condition Indications for airway management: anesthesia Preoxygenated: yes anesthesia circuit Patient position: sniffing Method: asleep Final Airway Details Final airway type: supraglottic airway Number of attempts at approach: 1 Final Supraglottic Airway: i-gel Size 5 Seal Adequate: yes Airway not difficult SIGNATURE: Toshia Noel APRN.SUPERVISOR PAPER COATING PATIENT NAME: Chad Mckeon DATE: February 24, 2025 TIME: 1:29 PM CSN: [id number] [facility] 02-24-2025 Note [facility] Patient Name: Chad Mckeon Procedure Date: 02/24/2025 12:56 PM Date of : 1940 Admit Type: Outpatient Age: 84 Room: [facility] Room 2 Gender: Male Attending MD: Gonzalo Ricks MD, [id number] Procedure: Bronchoscopy Indications: Mediastinal adenopathy, vocal cord cancer Providers: Gonzalo Ricks MD (Doctor), Martha Bass RN (Assisting Nurse) Referring MD: Requesting Physician: Gisella Grant Patient Profile: Refer to note in patient chart for documentation of history and physical. Medicines: General Anesthesia, See the Anesthesia note for documentation of the administered medications Complications: No immediate complications Procedure: Pre-Anesthesia Assessment: - A History and Physical has been performed. Patient meds and allergies have been reviewed. The risks and benefits of the procedure and the sedation options and risks were discussed with the patient. All questions were answered and informed consent was obtained. Patient identification and proposed procedure were verified prior to the procedure by the physician, the nurse and the anesthesiologist in the procedure room. Mental Status Examination: normal. Airway Examination: normal oropharyngeal airway. Respiratory Examination: clear to auscultation. CV Examination: regular rate and rhythm. ASA Grade Assessment: III - A patient with severe systemic disease. After reviewing the risks and benefits, the patient was deemed in satisfactory condition to undergo the procedure. The anesthesia plan was to use general anesthesia. Immediately prior to administration of medications, the patient was re-assessed for adequacy to receive sedatives. The heart rate, respiratory rate, oxygen saturations, blood pressure, adequacy of pulmonary ventilation, and response to care were monitored throughout the procedure. The physical status of the patient was re-assessed after the procedure. After obtaining informed consent, the Bronchoscope was introduced through the mouth, via laryngeal mask airway and advanced to the tracheobronchial tree. the Bronchoscope was introduced through the mouth, via laryngeal mask airway and advanced to the tracheobronchial tree. The procedure was accomplished without difficulty. The patient tolerated the procedure well. Findings: The laryngeal mask airway is in good position. The vocal cords appear normal. The subglottic space is significant for a mass along the left cord corresponding with his known cancer. The trachea is of normal caliber. The lonnie is sharp. The tracheobronchial tree was examined to at least the first subsegmental level. Bronchial mucosa and anatomy are normal; there are no endobronchial lesions, and no secretions. Once the airway inspection was completed, the standard bronchoscope was withdrawn and the convex probe endobronchial ultrasound (EBUS) bronchoscope was inserted through the same route. Lymph Nodes: The following lymph nodes were evaluated and/or sampled. Lymph node sizing was performed via endobronchial ultrasound. Sampling by transbronchial needle aspiration was also performed using an Olympus ViziShot 22 gauge needle and sent for routine cytology. - The 4R (lower paratracheal) node was 7 mm by EBUS, [address] and hypermetabolic via PET scan. Six samples with the needle were obtained. - The 10R (hilar) node was 4 mm by EBUS, [address] and non-hypermetabolic via PET scan. Six samples with the needle were obtained. - The 11Rs (superior interlobar) node was 6 mm by EBUS, [address] and hypermetabolic via PET scan. Four samples with the needle were obtained. Lymph Nodes: Rapid On-Site Evaluation (JACQUELYN): Preliminary cytology was suggestive of benign-appearing lymphoid tissue (final results are pending) in the right lower paratracheal region (level 4R) and right superior interlobar region (level 11Rs). Impression: - Mediastinal adenopathy - Lymph node sizing and sampling was performed. - Rapid On-Site Evaluation (JACQUELYN): Preliminary cytology was suggestive of benign-appearing lymphoid tissue in node level 4R and node level 11Rs (final results are pending). Recommendation: - Await test results. Attending Participation: I personally performed the entire procedure. Dr. Gonzalo Ricks MD 02/24/2025 2:14:24 PM This report has been signed electronically by Gonzalo Ricks MD Number of Addenda: 0 Note Initiated On: 02/24/2025 12:56 PM Procedure Start: 1:23:05 PM Procedure End: 1:52:16 PM [facility] 02-19-2025 History and physical note Images from the original note were not included. Interventional Pulmonary Consultation Date of Service: February 19, 2025 Patient: Chad Mckeon Medical Record: [id number] Primary Care Physician: Fausto Juarez MD Referring Provider: Hubert Grant MD History of Present Illness Chad Mckeon is a 84 year old male with a past history of CAD s/p CABG, vocal cord cancer, HTN, DM who was sent by Dr. Grant for evaluation and management of mediastinal adenopathy. My findings and recommendations will be communicated to the referring doctor by way of shared electronic medical record (or [place] mail). Patient recently developed hoarseness, work up revealed left cord tumor (recent biopsy a few weeks ago). EOD work up included PET, which demonstrated uptake in the right paratracheal node concerning for metastasis. Patient was a long time smoker, quit 20 years ago. CABG 2022 x3V. No residual heart failure. No history palpitations, no c/o chest pain. No leg edema. No cough, fevers, phlegm, dyspnea, DAWN. 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 Social Historyy Social History Tobacco Use Smoking status: Former Types: Cigarettes Start date: 1953 Smokeless tobacco: Never Substance Use Topics Alcohol use: Not Currently Drug use: Not Currently Current Medications Current Outpatient Medications Medication Instructions aspirin, enteric coated (ASPIRIN, ENTERIC COATED) 81 mg atorvastatin (LIPITOR) 40 mg, AT BEDTIME calcium carbonate/vitamin D3 (CALCIUM WITH VITAMIN D3 ORAL) Take by mouth. cetirizine (ZYRTEC) 10 mg, DAILY glimepiride (AMARYL) 4 mg tablet TAKE ONE TABLET BY MOUTH ONCE DAILY WITH BREAKFAST OR THE FIRST MAIN MEAL OF THE DAY JANUVIA 100 mg tablet 1 tablet Orally Once a day for 30 days magnesium oxide (MAG-OX) 400 mg (241.3 mg magnesium) tablet 1 tablet metFORMIN (GLUCOPHAGE) 500 mg tablet take one tablet by mouth twice a day for 30 days metoprolol tartrate (short acting) (LOPRESSOR) 12.5 mg, 2 TIMES DAILY potassium chloride ER (KLOR-CON) 20 mEq tablet 20 mEq, DAILY WITH FOOD vit A/vit C/vit E/zinc/copper (PRESERVISION AREDS ORAL) Take by mouth. Imaging Please see below Physical Exam BP 134/83 Pulse 73 Ht 5' 8 (1.73m) Wt 200 lb (90.7kg) SpO2 96% BMI 30.42 kg/(m^2). GENERAL APPEARANCE: Patient in no acute distress. SKIN: No rashes or lesions. EYES: PERRLA, EOMI,, conjunctivae clear. OROPHARYNX: Lips, mucosa, and tongue normal. Teeth and gums normal. Oropharynx normal. NECK: Supple, no lymphadenopathy, no JVD. BACK: No CVA tenderness, no spinal tenderness LUNGS: Normal breath sounds, clear to auscultation, no wheezes, or crackles. HEART: Normal PMI, Regular rate/rhythm, normal heart sounds, and no murmurs. ABDOMEN: Soft, non tender, no palpable masses, normal bowel sounds, no abdominal bruits, No hepatosplenomegaly. EXTREMITIES: No edema or tenderness NEURO: Awake, alert and oriented x3, no involuntary motions. Assessment & Plan Mediastinal adenopathy. I personally reviewed the PET-CT scan. There is intense uptake in a 4R node, which is concerning for metastasis from his H/N cancer. Will need an EBUS to further investigate. 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 Grant History CABG DM2. Controlled with meds, followed by PCP HTN. Stable, managed by PCP Gonzalo Ricks MD Date: February 19, 2025 Time: 10:35 AM I spent a total of 50 minutes on the date of the service which included preparing to see the patient, [id number] patient care, completing clinical documentation, obtaining and/or reviewing separately obtained history, performing a medically appropriate examination, counseling and educating the patient/family/caregiver, ordering medications, tests, or procedures, communicating with other HCPs (not separately reported), independently interpreting results (not separately reported), communicating results to the patient/family/caregiver, and care coordination (not separately reported). [facility] 02-19-2025 History and physical note Images from the original note were not included. Interventional Pulmonary Consultation Date of Service: February 19, 2025 Patient: Chad Mckeon Medical Record: [id number] Primary Care Physician: Fausto Juarez MD Referring Provider: Hubert Grant MD History of Present Illness Chad Mckeon is a 84 year old male with a past history of CAD s/p CABG, vocal cord cancer, HTN, DM who was sent by Dr. Grant for evaluation and management of mediastinal adenopathy. My findings and recommendations will be communicated to the referring doctor by way of shared electronic medical record (or [place] mail). Patient recently developed hoarseness, work up revealed left cord tumor (recent biopsy a few weeks ago). EOD work up included PET, which demonstrated uptake in the right paratracheal node concerning for metastasis. Patient was a long time smoker, quit 20 years ago. CABG 2022 x3V. No residual heart failure. No history palpitations, no c/o chest pain. No leg edema. No cough, fevers, phlegm, dyspnea, DAWN. 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 Social Historyy Social History Tobacco Use Smoking status: Former Types: Cigarettes Start date: 1953 Smokeless tobacco: Never Substance Use Topics Alcohol use: Not Currently Drug use: Not Currently Current Medications Current Outpatient Medications Medication Instructions aspirin, enteric coated (ASPIRIN, ENTERIC COATED) 81 mg atorvastatin (LIPITOR) 40 mg, AT BEDTIME calcium carbonate/vitamin D3 (CALCIUM WITH VITAMIN D3 ORAL) Take by mouth. cetirizine (ZYRTEC) 10 mg, DAILY glimepiride (AMARYL) 4 mg tablet TAKE ONE TABLET BY MOUTH ONCE DAILY WITH BREAKFAST OR THE FIRST MAIN MEAL OF THE DAY JANUVIA 100 mg tablet 1 tablet Orally Once a day for 30 days magnesium oxide (MAG-OX) 400 mg (241.3 mg magnesium) tablet 1 tablet metFORMIN (GLUCOPHAGE) 500 mg tablet take one tablet by mouth twice a day for 30 days metoprolol tartrate (short acting) (LOPRESSOR) 12.5 mg, 2 TIMES DAILY potassium chloride ER (KLOR-CON) 20 mEq tablet 20 mEq, DAILY WITH FOOD vit A/vit C/vit E/zinc/copper (PRESERVISION AREDS ORAL) Take by mouth. Imaging Please see below Physical Exam BP 134/83 Pulse 73 Ht 5' 8 (1.73m) Wt 200 lb (90.7kg) SpO2 96% BMI 30.42 kg/(m^2). GENERAL APPEARANCE: Patient in no acute distress. SKIN: No rashes or lesions. EYES: PERRLA, EOMI,, conjunctivae clear. OROPHARYNX: Lips, mucosa, and tongue normal. Teeth and gums normal. Oropharynx normal. NECK: Supple, no lymphadenopathy, no JVD. BACK: No CVA tenderness, no spinal tenderness LUNGS: Normal breath sounds, clear to auscultation, no wheezes, or crackles. HEART: Normal PMI, Regular rate/rhythm, normal heart sounds, and no murmurs. ABDOMEN: Soft, non tender, no palpable masses, normal bowel sounds, no abdominal bruits, No hepatosplenomegaly. EXTREMITIES: No edema or tenderness NEURO: Awake, alert and oriented x3, no involuntary motions. Assessment & Plan Mediastinal adenopathy. I personally reviewed the PET-CT scan. There is intense uptake in a 4R node, which is concerning for metastasis from his H/N cancer. Will need an EBUS to further investigate. 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 Grant History CABG DM2. Controlled with meds, followed by PCP HTN. Stable, managed by PCP Gonzalo Ricks MD Date: February 19, 2025 Time: 10:35 AM I spent a total of 50 minutes on the date of the service which included preparing to see the patient, [id number] patient care, completing clinical documentation, obtaining and/or reviewing separately obtained history, performing a medically appropriate examination, counseling and educating the patient/family/caregiver, ordering medications, tests, or procedures, communicating with other HCPs (not separately reported), independently interpreting results (not separately reported), communicating results to the patient/family/caregiver, and care coordination (not separately reported). documented in this encounter [facility] 02-17-2025 Telephone encounter Note Bronch scheduled for 02/24/25. Echo report received from Matthew [facility] [employer]. Please review under Cardiac Tab. Thank you. [facility] 02-17-2025 Miscellaneous Notes Bronch scheduled for 02/24/25. Echo report received from Matthew [facility] [employer]. Please review under Cardiac Tab. Thank you. documented in this encounter [facility] [facility] 02-13-[facility]25 Telephone encounter Note Spoke with patient to remind him to stop taking plavix on 02/18 until after the bronchoscopy on 02/24. Patient verbalized understanding. Pete Govea RN [facility] 02-13-2025 Miscellaneous Notes Spoke with patient to remind him to stop taking plavix on 02/18 until after the bronchoscopy on 02/24. Patient verbalized understanding. Pete Govea RN documented in this encounter [facility] 02-10-2025 Telephone encounter Note Pre Sim, Nurse Visit for IV Start, and Chemo Ed with Audra has all been added to the schedule on 03/03/25 with an arrival of 8:45AM I called and spoke to Chad and he confirmed his appointments and he understood no hair products Jasmine B PSS [facility] 02-10-2025 Miscellaneous Notes Pre Sim, Nurse Visit for IV Start, and Chemo Ed with Audra has all been added to the schedule on 03/03/25 with an arrival of 8:45AM I called and spoke to Chad and he confirmed his appointments and he understood no hair products Jasmine B PSS Sim scheduled for 03/03/25 at 9:30 am PSS please schedule Pre sim consent for 9am Nurse visit for IV start Chemo ed with Audra same day Notify patient of all appointments Arrival of 8:45am Special instructions no hair products Tierney Wilks RT(R)(T) Please schedule SIM 1 week post EBUS (Scheduled 02/24) Treating H&N IV Contrast Need Pre Sim Consent Rad Nurse Visit for IV Start Coordinate chemo ed appt with Audra Thank you Sujata Amezcua, RN documented in this encounter [facility] 02-10-2025 Telephone encounter Note Sim scheduled for 03/03/25 at 9:30 am PSS please schedule Pre sim consent for 9am Nurse visit for IV start Chemo ed with Audra same day Notify patient of all appointments Arrival of 8:45am Special instructions no hair products Tierney Wilks RT(R)(T) [facility] 02-10-2025 Telephone encounter Note Please schedule SIM 1 week post EBUS (Scheduled 02/24) Treating H&N IV Contrast Need Pre Sim Consent Rad Nurse Visit for IV Start Coordinate chemo ed appt with Audra Thank you Sujata Amezcua, RN [facility] 02-09-2025 Note HNO ID: [id number] Author: PETE GOVEA, YONATAN Service: ? Author Type: Registered Nurse Type: Progress Notes Filed: 02/09/2025 13:54 Note Text: Cardiac clearance and medication hold form sent via [employer]. Pete Govea RN [facility] 02-09-2025 Note HNO ID: [id number] Author: PETE GOVEA, YONATAN Service: ? 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 - prochlorperazine (COMPAZINE) 10 mg tablet Take 1 tablet by mouth every 6 hours as needed. - aspirin, enteric coated (ASPIRIN, ENTERIC COATED) 81 mg EC tablet Take 81 mg by mouth. - atorvastatin (LIPITOR) 40 mg tablet Take 40 mg by mouth daily at bedtime. - cetirizine (ZYRTEC) 10 mg tablet Take 10 mg by mouth once daily. - clopidogrel (PLAVIX) 75 mg tablet take 1 tablet (75 mg) by mouth in the morning. - glimepiride (AMARYL) 4 mg tablet TAKE ONE TABLET BY MOUTH ONCE DAILY WITH BREAKFAST OR THE FIRST MAIN MEAL OF THE DAY - magnesium oxide (MAG-OX) 400 mg (241.3 mg magnesium) tablet Take 1 tablet by mouth. - metFORMIN (GLUCOPHAGE) 500 mg tablet take one tablet by mouth twice a day for 30 days - metoprolol tartrate, short acting, (LOPRESSOR) 25 mg tablet Take 12.5 mg by mouth two times a day. - potassium chloride ER (KLOR-CON) 20 mEq tablet Take 20 mEq by mouth daily with food. - JANUVIA 100 mg tablet 1 tablet Orally Once a day for 30 days - vit A/vit C/vit E/zinc/copper (PRESERVISION AREDS ORAL) Take by mouth. - calcium carbonate/vitamin D3 (CALCIUM WITH VITAMIN D3 ORAL) Take by mouth. Encounter Status:Closed by SHIRLEY QIU on 02/09/25 [facility] 02-09-2025 Note HNO ID: [id number] Author: SHIRLEY QIU RD Service: ? Author Type: Registered Dietitian Type: Progress Notes Filed: 02/09/2025 15:58 Note Text: Oncology Nutrition Therapy Initial Assessment I have communicated my name and active licensure. The patient's identity and physical location were verified at the time of this visit. Either the patient or their legal passenger relations representative has been informed of the risks and benefits of -- and alternatives to -- treatment through a remote evaluation and consents to proceed with the evaluation remotely. RECOMMENDED MALNUTRITION DIAGNOSIS: UNABLE TO IDENTIFY MALNUTRITION AT THIS TIME unable to perform NFPE Nutriscore: No Data Recorded Nutrition Diagnosis: Increased protein and energy needs related to hypermetabolic disease process as evidenced by need for weight maintenance and preservation of muscle mass. Nutrition Intervention: - eat around the clock every 2-3 hours versus waiting on hunger cues, start snack more often -include lean protein source at each meal/snack -encouraged adequate hydration -aim for 60-64 ounces non-caffeine containing fluids -discussed oral nutrition supplements -Try Boost or Ensure Plus (350kcals) as needed for treatment -incorporate calorie/protein boosting techniques at meals/snacks -whole milk, full fat dairy, cream, butter/margarine, full fat sinclair/dressing/condiments, oils, avocado, peanut butter, etc. 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 Current treatment: anticipating weekly cisplatin/carboplatin with radiation. PMH significant for DM, HTN, hypercholesteremia, cardiac bypass. Patient's symptoms are: None Subjective: Patient only had a few minute to talk for assessment. Right now has no problems eating, appetite fluctuates. Intake is as many meals as I can . A lot of snacking throughout the day mainly on cheerios. Midnight snack of 2 oreo cookies with 2% milk. No ONS at this time. Denies chewing/swallowing issues, has false teeth but does not eat with them most often. Diet Recall: Breakfast - waffle (Ego) Snack - cheerios Lunch - soup (homemade), 1 slice of bread Snack - none Dinner - costa rican toast, 4 slices of ayala Snack - none Beverages - coffee, water Vitamins AND Minerals - see below Provided supportive education regarding the importance of adequate nutrient intakes and maintenance of LBM throughout treatment. Discussed above intervention. All questions/concerns voiced by pt were addressed this visit. Readiness to Learn: Cognitive ability: Alert and oriented Motivation to learn: Interested Family support: Unable to assess - Family not present Instruction provided to: Patient Patient learns best by: Multiple Methods Factors affecting learning: None Physical limitations affecting learning: None Educational materials provided: Foods that are easy to chew and swallow, soft and moist high protein ideas, Creative Eating: Soups, Smoothies, Supplements- plan to mail per pt preference Anthropometrics: Height: Last 1 Encounter Ht Readings: Date: Ht: 01/27/2025 172.7 cm (5' 8 ) Current weight: Last 1 Encounter Wt Readings: Date: Wt: 01/30/2025 90.9 kg (200 lb 6.4 oz) Estimated body mass index is 30.47 kg/m? as calculated from the following: Height as of 01/27/25: 172.7 cm (5' 8 ). Weight as of 01/30/25: 90.9 kg (200 lb 6.4 oz). Resting Metabolic Rate: 1584 UBW: 225lb - around 2022, lost weight from heart surgery Weight change: denies wt change Last 15 Encounter Wt Readings: Date: Wt: 01/30/2025 90.9 kg (200 lb 6.4 oz) 01/27/2025 90 kg (198 lb 6.6 oz) [place] Body Weight: 70kg Dosing Weight: 90.9 kg Estimated kilocalorie needs: 2896-0426 kilocalories determined by 30-35 kcal/kg (IBW) Estimated protein needs: 90-108 grams determined by 1.0-1.2 g/kg Current weight Estimated fluid needs: 3931-4270 milliliters based on 1 mL per kcal(unless otherwise indicated) Nutrition Focused Physical Exam: Unable to perform exam due to patient unable to participate, will re-attempt during reassessment. Potential Signs of Inflammation: chronic condition Allergies: Patient has no known allergies. Medications: Current Outpatient Medications Medication Sig Dispense Refill ondansetron (ZOFRAN) 8 mg tablet Take 1 tablet by mouth every 8 hours as needed for nausea/vomiting. 90 tablet 1 prochlorperazine (COMPAZINE) 10 mg tablet Take 1 tablet by mouth every 6 hours as needed. 100 tablet 1 aspirin, enteric coated (ASPIRIN, ENTERIC COATED) 81 mg EC table (more content not included)... [facility] 02-09-2025 History of Present illness Narrative Oncology Nutrition Therapy Initial Assessment I have communicated my name and active licensure. The patient's identity and physical location were verified at the time of this visit. Either the patient or their legal passenger relations representative has been informed of the risks and benefits of -- and alternatives to -- treatment through a remote evaluation and consents to proceed with the evaluation remotely. RECOMMENDED MALNUTRITION DIAGNOSIS: UNABLE TO IDENTIFY MALNUTRITION AT THIS TIME unable to perform NFPE Nutriscore: No Data Recorded Nutrition Diagnosis: Increased protein and energy needs related to hypermetabolic disease process as evidenced by need for weight maintenance and preservation of muscle mass. Nutrition Intervention: - eat around the clock every 2-3 hours versus waiting on hunger cues, start snack more often -include lean protein source at each meal/snack -encouraged adequate hydration -aim for 60-64 ounces non-caffeine containing fluids -discussed oral nutrition supplements -Try Boost or Ensure Plus (350kcals) as needed for treatment -incorporate calorie/protein boosting techniques at meals/snacks -whole milk, full fat dairy, cream, butter/margarine, full fat sinclair/dressing/condiments, oils, avocado, peanut butter, etc. 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 Current treatment: anticipating weekly cisplatin/carboplatin with radiation. PMH significant for DM, HTN, hypercholesteremia, cardiac bypass. Patient's symptoms are: None Subjective: Patient only had a few minute to talk for assessment. Right now has no problems eating, appetite fluctuates. Intake is as many meals as I can . A lot of snacking throughout the day mainly on cheerios. Midnight snack of 2 oreo cookies with 2% milk. No ONS at this time. Denies chewing/swallowing issues, has false teeth but does not eat with them most often. Diet Recall: Breakfast - waffle (Ego) Snack - cheerios Lunch - soup (homemade), 1 slice of bread Snack - none Dinner - costa rican toast, 4 slices of ayala Snack - none Beverages - coffee, water Vitamins & Minerals - see below Provided supportive education regarding the importance of adequate nutrient intakes and maintenance of LBM throughout treatment. Discussed above intervention. All questions/concerns voiced by pt were addressed this visit. Readiness to Learn: Cognitive ability: Alert and oriented Motivation to learn: Interested Family support: Unable to assess - Family not present Instruction provided to: Patient Patient learns best by: Multiple Methods Factors affecting learning: None Physical limitations affecting learning: None Educational materials provided: Foods that are easy to chew and swallow, soft and moist high protein ideas, Creative Eating: Soups, Smoothies, Supplements- plan to mail per pt preference Anthropometrics: Height: Last 1 Encounter Ht Readings: Date: Ht: 01/27/2025 172.7 cm (5' 8 ) Current weight: Last 1 Encounter Wt Readings: Date: Wt: 01/30/2025 90.9 kg (200 lb 6.4 oz) Estimated body mass index is 30.47 kg/m as calculated from the following: Height as of 01/27/25: 172.7 cm (5' 8 ). Weight as of 01/30/25: 90.9 kg (200 lb 6.4 oz). Resting Metabolic Rate: 1584 UBW: 225lb - around 2022, lost weight from heart surgery Weight change: denies wt change Last 15 Encounter Wt Readings: Date: Wt: 01/30/2025 90.9 kg (200 lb 6.4 oz) 01/27/2025 90 kg (198 lb 6.6 oz) [place] Body Weight: 70kg Dosing Weight: 90.9 kg Estimated kilocalorie needs: 3921-3584 kilocalories determined by 30-35 kcal/kg (IBW) Estimated protein needs: 90-108 grams determined by 1.0-1.2 g/kg Current weight Estimated fluid needs: 0954-4520 milliliters based on 1 mL per kcal(unless otherwise indicated) Nutrition Focused Physical Exam: Unable to perform exam due to patient unable to participate, will re-attempt during reassessment. Potential Signs of Inflammation: chronic condition Allergies: Patient has no known allergies. Medications: Current Outpatient Medications Medication Sig Dispense Refill ondansetron (ZOFRAN) 8 mg tablet Take 1 tablet by mouth every 8 hours as needed for nausea/vomiting. 90 tablet 1 prochlorperazine (COMPAZINE) 10 mg tablet Take 1 tablet by mouth every 6 hours as needed. 100 tablet 1 aspirin, enteric coated (ASPIRIN, ENTERIC COATED) 81 [...] WITH VITAMIN D3 ORAL) Take by mouth. No current facility-administered medications for this visit. Need for Follow up: pending treatment Referred by: Dr. Rudy CARRANZA Billing Type: Initial Assess 1 unit Total Time (mins): 13 Signed by: Shirley Qiu RD, LD documented in this encounter [facility] 02-05-2025 Note HNO ID: [id number] Author: PETE GOVEA RN Service: ? Author Type: Registered Nurse Type: Progress Notes Filed: 02/25/2025 10:22 Note Text: Patient requested a call back next week to discuss scheduling a bronchoscopy as he needs to work on obtaining transportation to the consult and procedure. Declined to set up [facility], unable to offer virtual visit. Pete Govea RN [facility] 02-05-2025 History of Present illness Narrative Patient requested a call back next week to discuss scheduling a bronchoscopy as he needs to work on obtaining transportation to the consult and procedure. Declined setting up MyChart, unable to offer virtual visit. Pete Govea RN Bronchoscopy Request: Please schedule patient for the [...] etc)? No Is patient on SGLT2 inhibitors ( -flozin drugs - Jardiance, etc)? No PACC visit needed No Diagnosis/Reason for Bronchoscopy: Head/neck cancer, with PET avid mediastinal nodes Referred by: Rudy Reviewed by: MALCOLM Ricks MD February 05, 2025 11:46 AM documented in this encounter [facility] 02-05-2025 Telephone encounter Note Gonzalo Ricks MD [facility] [place] [employer]; Pete Govea, RN; Gisella Grant MD Thanks We'll get this in sam. He's on plavix, which will need a hold of at least 5 days. We will aim for next Sunday, but it may have to wait a bit longer due to plavix issue. [facility] 02-05-2025 Miscellaneous Notes Gonzalo Ricks MD [facility] [place] [employer]; Pete Govea, RN; Gisella Grant MD Thanks We'll get this in sam. He's on plavix, which will need a hold of at least 5 days. We will aim for next Sunday, but it may have to wait a bit longer due to plavix issue. Sent a staff message to Dr. Buchanan for EBUS [facility]-Dr. Grant is referring Chad to Dr. Ricks for EBUS. SIM and chemo ed to be rescheduled after EBUS. I notified Audra Yanez Thanks Nadine Powell RN Patient scheduled for SIM on 02/05 - added education appointment w/ Audra. Candelaria Lock Images from the original note were not included. Hi Team! If you could let us know start date. Thanks so much! Candelaria Lock documented in this encounter [facility] 02-05-2025 Note HNO ID: [id number] Author: PETE GOVEA, RN Service: ? Author Type: Physician Type: Progress Notes Filed: 02/09/2025 13:23 Note Text: Bronchoscopy Request: Please schedule patient for the [...] etc)? No Is patient on SGLT2 inhibitors (?-flozin? drugs - Jardiance, etc)? No PACC visit needed No Diagnosis/Reason for Bronchoscopy: Head/neck cancer, with PET avid mediastinal nodes Referred by: Rudy Reviewed by: MALCOLM Ricks MD February 05, 2025 11:46 AM [facility] 02-05-2025 Telephone encounter Note Sent a staff message to Dr. Buchanan for EBUS [facility] 02-05-2025 Telephone encounter Note Sent a staff message to Dr. Flor Govea for Ebus. [facility] 02-05-2025 Miscellaneous Notes Sent a staff message to Dr. Flor Govea for Ebus. documented in this encounter [facility] 02-05-2025 Note HNO ID: [id number] Author: Gisella GRANT MD Service: ? Author Type: Physician Type: Progress Notes Filed: 02/05/2025 09:44 Note Text: Radiation Oncology - New Patient/Consult Note PATIENT [...] COMPLETE REVIEW OF SYSTEMS: NECK: denies swelling (more content not included)... [facility] 02-05-2025 History of Present illness Narrative Radiation Oncology - New Patient/Consult Note PATIENT [...] Synopsis SmartLink 01/30/2025 11:24 Vitals Temp 36.6 C (97.9 F) Pulse 73 Resp 18 BP 124/74 SpO2 96 % KPS: 90 General Appearance: Alert and oriented. No acute distress. Neck: Normal ROM. No palpable cervical or supraclavicular adenopathy. Chest: No respiratory distress. Lungs clear to auscultation bilaterally. Well-healed incisional area mid chest. No tenderness. No [...] cord with extension into the supraglottis. No cervical adenopathy on pet imaging. Mediastinal/right paratracheal node identified [...] possible. Will refer him to pulmonary at [facility] in consideration of this. Signed by: Gisella Grant MD cc: MD Austin Morrow MD [id number] [id number] documented in this encounter [facility] 02-05-2025 Telephone encounter Note [facility]-Dr. Grant is referring Chad to Dr. Ricks for EBUS. SIM and chemo ed to be rescheduled after EBUS. I notified Audra Powell RN [facility] 02-03-2025 Telephone encounter Note Signed thanks [facility] 02-03-2025 Miscellaneous Notes Signed thanks Pt will be in on for education (Cisplatin). Scripts for antiemetics pended. Vladimir Finley, RN documented in this encounter [facility] 02-03-2025 Telephone encounter Note Pt will be in on for education (Cisplatin). Scripts for antiemetics pended. Vladimir Finley RN [facility] Work Phone: 02-02-2025 Telephone encounter Note Patient scheduled for SIM on 02/05 - added education appointment w/ Audra. Candelaria Lock [facility] 02-02-2025 Telephone encounter Note Nutrition consult scheduled as a phone call, 02/09/2025 at 945am. Confirmed with patient [facility] 02-02-2025 Miscellaneous Notes Nutrition consult scheduled as a phone call, 02/09/2025 at 945am. Confirmed with patient Spoke to patient, Confirmed arrival on 02/05 at 830am and no special instructions. 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 Cortney - was the Nutrtion consult scheduled? PSS- I schedule sim on 02/05/2025 at 9:15am. Pre-sim consent at 8:45am. Nurse visit at 9:15am Arrival time of 8:30am , No special instructions Thank you, Betty Contrerasally signed by Betty Gaston Tech at 01/30/2025 2:42 PM EDT Rad Education was added to the schedule and checked in for today Jasmine Hoover PSS PSS/RT: please schedule Consult with med onc PET SIM after treating neck with IV contrast and mask Consent needed Nurse visit day of SIM for IV start Nurse ed today Rad lab at PET per pt request Consult reconciliation manager Thanks Nadine Powell RN documented in this encounter [facility] 02-02-2025 Telephone encounter Note Spoke to patient, Confirmed arrival on 02/05 at 830am and no special instructions. 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 Cortney - was the Nutrtion consult scheduled? [facility] 01-30-2025 Telephone encounter Note PSS- I schedule sim on 02/05/2025 at 9:15am. Pre-sim consent at 8:45am. Nurse visit at 9:15am Arrival time of 8:30am , No special instructions Thank you, Betty Cervantes [facility] Work Phone: 01-30-2025 Telephone encounter Note Images from the original note were not included. Hi Team! If you could let us know start date. Thanks so much! Candelaria Lock [facility] 01-30-2025 Instructions Chandan Burgos MD - 01/30/2025 12:01 PM EDT Labs [...] to drink extra fluids at home for this purpose. We discussed your next steps: - Bloodwork will be drawn today to evaluate your kidney function and determine the appropriate chemotherapy medication. - Once the chemotherapy medication is decided, we will schedule an education session to review the treatment plan and provide detailed instructions. - You will need to have a face mask fitted for your radiation therapy. Please follow up with Dr. Mcdonnell s office to ensure this is scheduled. - We will schedule a follow-up appointment with me to finalize your treatment plan and begin therapy. Please let us know if you experience any new or worsening symptoms, such as difficulty breathing, swallowing, or increased hoarseness. We will work to begin your treatment as soon as possible. documented in this encounter [facility] 01-30-2025 Note HNO ID: [id number] Author: CHANDAN BURGOS MD Service: ? Author Type: Physician Type: Progress Notes Filed: 02/01/2025 19:17 Note Text: NAME: Chad Mckeon CLINIC NO.: [id number] DATE OF SERVICE: January 30, 2025 Referring Provider: Consultation requested by Dr. Grant for an opinion regarding Mr. Chad Mckeon, and my final recommendations will be communicated back to the requesting physician by way of shared medical record or letter via US mail. 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 SUMMARIZED [...] of the left vocal cord with fixation, confirmed by biopsy on 01/21/2025. PET scan performed on [...] diabetes mellitus without complication, unspecified whether terminal manager insulin use (HCC) (E11.9) Diabetes mellitus noted; [...] old male. 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 Alert and oriented ?3. Psychiatric: No evidence of inappropriate anxiety or depression. Skin: Visible areas of skin without rash, lesions, wounds or petechiae. [place] (more content not included)... [facility] 01-30-2025 History of Present illness Narrative Images from the original note were not included. NAME: Chad Mckeon NO.: [id number] DATE OF SERVICE: January 30, 2025 Referring Provider: Consultation requested by Dr. Grant for an opinion regarding Chad Mckeon, and my final recommendations will be communicated back to the requesting physician by way of shared medical record or letter via US mail. 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 SUMMARIZED [...] of the left vocal cord with fixation, confirmed by biopsy on 01/21/2025. PET scan performed on [...] 2 diabetes mellitus without complication, unspecified whether jail insulin use (HCC) (E11.9) Diabetes mellitus noted; [...] old male. 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 Alert and oriented 3. Psychiatric: No evidence of inappropriate anxiety or [...] 2 diabetes mellitus without complication, unspecified whether jail insulin use (HCC) PAST MEDICAL HISTORY Diagnosis [...] which included preparing to see the patient, [id number] patient care, completing clinical documentation, obtaining and/or reviewing separately obtained history, performing a medically appropriate examination, counseling and educating the patient/family/caregiver, ordering medications, tests, or procedures, independently interpreting results (not separately reported), communicating results to the patient/family/caregiver, and care coordination (not separately reported). Chandan Burgos MD, CPE Hematology and Oncology Services Provided at: [place], [place] CC: Gisella Grant [facility] Ju[facility] MD [address] [address] documented in this encounter [facility] 01-28-2025 History of Present illness Narrative Radiology Service Progress Note DATE OF SERVICE: [...] DATE: January 28, 2025 TIME: 1:44 PM RADIOLOGY SERVICE PROGRESS NOTE SERVICE DATE: 01/28/2025 SERVICE TIME: 2:45 PM PATIENT IDENTITY VERIFICATION COMPLETED USING TWO (2) STANDARD IDENTIFIERS: Name and Date of confirmed by patient verbally POST EXAM PIV STATUS: Discontinued PROCEDURE TYPE: NM INJECT: PET/CT BODY SCAN. 10.4 mCi F18 FDG. Administered By: . No other medications given.. ADMINISTRATION TIME: 1331 PATIENT DISCHARGED TO: Ambulatory patient, left [place] department area. Is this a therapy: No A Diagnostic radioactive procedure has taken place, with no further precautions necessary other than routine body substance precautions. More information regarding radiation safety can be found using this link: [email or web address] ear%20Medicine%[email or web address] SIGNATURE: RT Sánchez(Price) PATIENT NAME: Chad Mckeon DATE: January 28, 2025 TIME: 2:45 PM PAGER/CONTACT #: documented in this encounter [facility] 01-28-2025 Note HNO ID: [id number] Author: LINH CRUZ RN Service: ? Author Type: Registered Nurse Type: Progress Notes Filed: 01/28/2025 13:45 Note Text: Radiology Service Progress Note DATE OF SERVICE: [...] DATE: January 28, 2025 TIME: 1:44 PM [facility] 01-28-2025 Note HNO ID: [id number] Author: VLADIMIR LANDRUM RT(Price) Service: ? Author Type: Technologist Type: Progress Notes Filed: 01/28/2025 14:46 Note Text: RADIOLOGY SERVICE PROGRESS NOTE SERVICE DATE: 01/28/2025 SERVICE TIME: 2:45 PM PATIENT IDENTITY VERIFICATION COMPLETED USING TWO (2) STANDARD IDENTIFIERS: Name and Date of confirmed by patient verbally POST EXAM PIV STATUS: Discontinued PROCEDURE TYPE: NM INJECT: PET/CT BODY SCAN. 10.4 mCi F18 FDG. Administered By: . No other medications given.. ADMINISTRATION TIME: 1331 PATIENT DISCHARGED TO: Ambulatory patient, left [place] department area. Is this a therapy: No A Diagnostic radioactive procedure has taken place, with no further precautions necessary other than routine body substance precautions. More information regarding radiation safety can be found using this link: [email or web address] [email or web address]-% 20Diagnostic%20Nuclear%20Medicine %20Procedures.[email or web address] SIGNATURE: RT Sánchez(R) PATIENT NAME: Chad Mckeon DATE: January 28, 2025 TIME: 2:45 PM PAGER/CONTACT #: [facility] 01-27-2025 Telephone encounter Note Rad Education was added to the schedule and checked in for today Jasmine Hoover PSS [facility] 01-27-2025 Note HNO ID: [id number] Author: NADINE POWELL RN Service: ? Author Type: Registered Nurse Type: Progress Notes Filed: 01/27/2025 10:08 Note Text: Radiation Therapy - Patient Education Note PATIENT NAME: Chad Mckeon PATIENT January 27, 2025 [facility] FACILITY/LOCATION: [facility] READINESS TO LEARN Cognitive Ability: Alert and [...] Informational handouts on Appetite, Esophagitis/Mucositis, Fatigue, Head and neck packet, Skin changes, Salt and soda rinses, and patient education binder. Referral (recommendation): Dietitian Patient has an Onbody or Implanted device: No Signed by: Nadine Powell RN [facility] 01-27-2025 History of Present illness Narrative Radiation Therapy - Patient Education Note PATIENT NAME: Chad Mckeon PATIENT January 27, 2025 [facility] FACILITY/LOCATION: [facility] READINESS TO LEARN Cognitive Ability: Alert and [...] Informational handouts on Appetite, Esophagitis/Mucositis, Fatigue, Head and neck packet, Skin changes, Salt and soda rinses, and patient education binder. Referral (recommendation): Dietitian Patient has an Onbody or Implanted device: No Signed by: Nadine Powell RN documented in this encounter [facility] 01-27-2025 Telephone encounter Note PSS/RT: please schedule Consult with med onc PET SIM after treating neck with IV contrast and mask Consent needed Nurse visit day of SIM for IV start Nurse ed today Rad lab at PET per pt request Consult reconciliation manager Thanks Nadine Powell RN [facility] 01-27-2025 History of Present illness Narrative Radiation Oncology - New Patient/Consult Note PATIENT NAME: Chad Mckeon PATIENT : 1940 REQUESTING PROVIDER: Dr. Jarquin DIAGNOSIS: 84 year old male with squamous [...] Synopsis SmartLink 01/30/2025 11:24 Vitals Temp 36.6 C (97.9 F) Pulse 73 Resp 18 BP 124/74 SpO2 [...] his staging for further discussion. Signed by: Gisella Grant MD cc: MD Austin Morrow MD [address] [facility] [place] [address] Pacemaker/Defibrillator?N Previous Cancer(s)?N Previous Radiation?N Lupus/Scleroderma?N On body monitoring device?N Nadine Powell RN documented in this encounter [facility] 01-27-2025 Note HNO ID: [id number] Author: Gisella GRANT MD Service: ? Author Type: Physician Type: Progress Notes Filed: 02/04/2025 14:52 Note Text: Radiation Oncology - New Patient/Consult Note PATIENT NAME: Chad Mckeon PATIENT : 1940 REQUESTING PROVIDER: Dr. Jarquin DIAGNOSIS: 84 year old male with squamous [...] Synopsis SmartLink 01/30/2025 11:24 Vitals Temp 36.6 ?C (97.9 ?F) Pulse 73 Resp 18 BP 124/74 SpO2 96 % KPS: 90 General Appearance: Alert and oriented. No acute distress. HEENT: NCAT. Sclera anicteric. PERRL. EOMI. Oral cavity AND oropharnyx: lips and gums normal, oral and [...] of active bleeding. RADIOLOGY/LABORATORY DATA: see HPI A (more content not included)... [facility] 01-27-2025 Note HNO ID: [id number] Author: NADINE POWELL RN Service: ? Author Type: Registered Nurse Type: Progress Notes Filed: 02/04/2025 14:52 Note Text: Pacemaker/Defibrillator?N Previous Cancer(s)?N Previous Radiation?N Lupus/Scleroderma?N On body monitoring device?N Nadine Powell RN [facility] 01-27-2025 Note Education (RADTSA) CHAD MCKEON ([id number]) 1940 M Date Time Provider Department 01/27/25 NADINE POWELL Reason for Visit: Patient Education [91] During your visit today, we recorded the following information about you: Allergies As of Date: 01/27/2025 (No Known Allergies) Date Reviewed: 01/27/2025 Reviewed by: Nadine Powell, RN - Fully Assessed Prescriptions as of 01/27/2025 - aspirin, enteric coated (ASPIRIN, ENTERIC COATED) 81 mg EC tablet Take 81 mg by mouth. - atorvastatin (LIPITOR) 40 mg tablet Take 40 mg by mouth daily at bedtime. - cetirizine (ZYRTEC) 10 mg tablet Take 10 mg by mouth once daily. - clopidogrel (PLAVIX) 75 mg tablet take 1 tablet (75 mg) by mouth in the morning. - glimepiride (AMARYL) 4 mg tablet TAKE ONE TABLET BY MOUTH ONCE DAILY WITH BREAKFAST OR THE FIRST MAIN MEAL OF THE DAY - magnesium oxide (MAG-OX) 400 mg (241.3 mg magnesium) tablet Take 1 tablet by mouth. - metFORMIN (GLUCOPHAGE) 500 mg tablet take one tablet by mouth twice a day for 30 days - metoprolol tartrate, short acting, (LOPRESSOR) 25 mg tablet Take 12.5 mg by mouth two times a day. - potassium chloride ER (KLOR-CON) 20 mEq tablet Take 20 mEq by mouth daily with food. - JANUVIA 100 mg tablet 1 tablet Orally Once a day for 30 days - vit A/vit C/vit E/zinc/copper (PRESERVISION AREDS ORAL) Take by mouth. - calcium carbonate/vitamin D3 (CALCIUM WITH VITAMIN D3 ORAL) Take by mouth. Encounter Status:Closed by NADINE POWELL on 01/27/25 [facility] 01-26-2025 Note HNO ID: [id number] Author: XIOMARA WILKINS RN Service: ? Author Type: Registered Nurse Type: Progress Notes Filed: 01/26/2025 13:02 Note Text: Summary: Prescreen Chad Mckeon was reviewed for potential clinical trial enrollment on [facility] #[id number] [address] [facility] on 01/26/25. 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 Requesting constitution party notified. IRB 22- G-HN009 [id number] Randomized Phase II/III Trial of Radiation with High-Dose Cisplatin (100 Mg/M2) Every Three Weeks Versus Radiation with Low-Dose Weekly Cisplatin (40 Mg/M2) For Patients with Locoregionally Advanced Squamous Cell Carcinoma of the Head and Neck ([facility]) No Study tasks were completed as a result of this initial review. JIM Thacker, RN Research Nurse Coordinator [facility] 01-26-2025 History of Present illness Narrative Summary: Prescreen Images from the original note were not included. Chad Mckeon was reviewed for potential clinical trial enrollment on [facility] #[id number] [address] [facility] on 01/26/25. 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 Requesting constitution party notified. IRB 22- G-HN009 [id number] Randomized Phase II/III Trial of Radiation with High-Dose Cisplatin (100 Mg/M2) Every Three Weeks Versus Radiation with Low-Dose Weekly Cisplatin (40 Mg/M2) For Patients with Locoregionally Advanced Squamous Cell Carcinoma of the Head and Neck ([facility]) No Study tasks were completed as a result of this initial review. Xiomara Wilkins MSN, RN Research Nurse Coordinator documented in this encounter [facility] 01-07-2025 History of Present illness Narrative Images from the original note were not included. Subjective Patient ID: Chad Mckeon is a 84 y.o. male who presents for Vocal Cord Mass (S/p DL&E [facility] 01/01/25) Path shows a keratinizing SCCA No family history on file. Active Ambulatory Problems Diagnosis Date Noted Acute blood loss as cause of postoperative anemia 01/21/2023 Acute respiratory insufficiency 01/16/2023 Angina pectoris, unstable ([facility]) 01/09/2023 Atelectasis 01/21/2023 Chronic obstructive pulmonary disease ([facility]) 01/09/2023 Coronary artery disease of [place] artery of [place] heart with stable angina pectoris ([facility]) 01/09/2023 Essential hypertension ([facility]) 01/09/2023 Hyperlipidemia ([facility]) 01/09/2023 Hypomagnesemia 01/16/2023 Obesity 01/11/2023 Pleural effusion 01/17/2023 Postoperative atrial fibrillation ([facility]) 01/21/2023 Pure hyperglyceridemia ([facility]) 01/09/2023 Type 2 diabetes mellitus without complication 01/09/2023 Unspecified macular degeneration 01/09/2023 Resolved Ambulatory Problems Diagnosis Date Noted No Resolved Ambulatory Problems No Additional Past Medical History Past Surgical History: Procedure Laterality Date CARDIAC SURGERY open heart December [address] Jarquin No Known Allergies Current Outpatient Medications on File Prior to Visit Medication Sig Dispense Refill amiodarone (Pacerone) 200 MG tablet Take by mouth Daily aspirin 81 MG EC tablet Take 81 mg by mouth in the morning. atorvastatin (Lipitor) 40 MG tablet Take 40 mg by mouth at bedtime calcium 200 MG tablet Take 600 mg by mouth cetirizine (ZyrTEC) 10 MG tablet Take 10 mg by mouth in the morning. Cholecalciferol (Vitamin D) 10 MCG/ML liquid Take by mouth docusate sodium (Colace) 50 MG capsule Take 50 mg by mouth in the morning and 50 mg before bedtime. furosemide (Lasix) 40 MG tablet Take 40 mg by mouth glimepiride (Amaryl) 4 MG tablet Take 4 mg by mouth in the morning. Take before meals. Januvia 100 MG tablet 1 (one) time each day at the same time metFORMIN (Glucophage) 500 MG tablet Take 500 mg by mouth in the morning and 500 mg in the evening. Take with meals. metoprolol tartrate (Lopressor) 25 MG tablet Take 12.5 mg by mouth in the morning and 12.5 mg in the evening. mupirocin (Bactroban) 2 % ointment Apply topically in the morning and in the evening and before bedtime. pantoprazole (ProtoNix) 40 MG EC tablet Take 40 mg by mouth in the morning. Take before meals. Do not crush, chew, or split. potassium chloride CR (Klor-Con M20) 20 MEQ ER tablet Take 20 mEq by mouth Daily Do not crush or chew. sennosides (Senokot) 8.6 MG tablet Take 1 tablet by mouth Daily No current facility-administered medications on file prior to visit. Objective Last Recorded Vitals Vitals: 01/07/25 1101 BP: 117/74 Pulse: 74 ENT Physical Exam Constitutional Appearance: patient appears well-developed, well-nourished and well-groomed, Communication/Voice: communication appropriate for developmental age; vocal quality normal; Patient ID: Chad Mckeon is a 84 y.o. male. Procedures A diagnostic flexible fiberoptic laryngoscopy was performed. The flexible fiberoptic laryngoscope was placed into the nose and advanced to the level of the tip of the epiglottis. Examination of the larynx including both surfaces of the epiglottis false and true vocal folds, arytenoids and surrounding mucosal surfaces shows a left TVC mass with fixation of the TVC. 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 Tumor involves the entirety of the TVC and extends into the ant commissure. T3 due to tumor fixation. I will refer to Dr Grant for tx. documented in this encounter [facility] 12-17-2024 History of Present illness Narrative Images from the original note were not included. Subjective Patient ID: Chad Mckeon is a 84 y.o. male who presents for Hoarseness Pt reports a one year h/o hoarseness. Worse on some days but never better. No throat pain. No otalgia. No dysphagia or wt loss. Quit smoking 20 years ago. Review of Systems All other systems reviewed and are negative. No family history on file. Active Ambulatory Problems Diagnosis Date Noted Acute blood loss as cause of postoperative anemia 01/21/2023 Acute respiratory insufficiency 01/16/2023 Angina pectoris, unstable ([facility]) 01/09/2023 Atelectasis 01/21/2023 Chronic obstructive pulmonary disease ([facility]) 01/09/2023 Coronary artery disease of [place] artery of [place] heart with stable angina pectoris ([facility]) 01/09/2023 Essential hypertension ([facility]) 01/09/2023 Hyperlipidemia ([facility]) 01/09/2023 Hypomagnesemia 01/16/2023 Obesity 01/11/2023 Pleural effusion 01/17/2023 Postoperative atrial fibrillation ([facility]) 01/21/2023 Pure hyperglyceridemia ([facility]) 01/09/2023 Type 2 diabetes mellitus without complication 01/09/2023 Unspecified macular degeneration 01/09/2023 Resolved Ambulatory Problems Diagnosis Date Noted No Resolved Ambulatory Problems No Additional Past Medical History Past Surgical History: Procedure Laterality Date CARDIAC SURGERY open heart December 2022 No Known Allergies Current Outpatient Medications on File Prior to Visit Medication Sig Dispense Refill amiodarone (Pacerone) 200 MG tablet Take by mouth Daily atorvastatin (Lipitor) 40 MG tablet Take 40 mg by mouth at bedtime calcium 200 MG tablet Take 600 mg by mouth Cholecalciferol (Vitamin D) 10 MCG/ML liquid Take by mouth clopidogrel (Plavix) 75 MG tablet TAKE 1 TABLET (75 MG) BY MOUTH IN THE MORNING. docusate sodium (Colace) 50 MG capsule Take 50 mg by mouth in the morning and 50 mg before bedtime. furosemide (Lasix) 40 MG tablet Take 40 mg by mouth Januvia 100 MG tablet 1 (one) time each day at the same time metoprolol tartrate (Lopressor) 25 MG tablet Take 12.5 mg by mouth in the morning and 12.5 mg in the evening. mupirocin (Bactroban) 2 % ointment Apply topically in the morning and in the evening and before bedtime. pantoprazole (ProtoNix) 40 MG EC tablet Take 40 mg by mouth in the morning. Take before meals. Do not crush, chew, or split. potassium chloride CR (Klor-Con M20) 20 MEQ ER tablet Take 20 mEq by mouth Daily Do not crush or chew. sennosides (Senokot) 8.6 MG tablet Take 1 tablet by mouth Daily aspirin 81 MG EC tablet Take 81 mg by mouth in the morning. cetirizine (ZyrTEC) 10 MG tablet Take 10 mg by mouth in the morning. glimepiride (Amaryl) 4 MG tablet Take 4 mg by mouth in the morning. Take before meals. metFORMIN (Glucophage) 500 MG tablet Take 500 mg by mouth in the morning and 500 mg in the evening. Take with meals. No current facility-administered medications on file prior to visit. Objective Last Recorded Vitals Vitals: 12/17/24 1047 BP: 135/77 Pulse: 80 ENT Physical Exam Constitutional Appearance: patient appears well-developed and well-nourished, Head and Face Appearance: head appears normal and face appears atraumatic; Ear Ear comments: Adalberto ears normal Nose External Nose: nares patent bilaterally; external nose normal; Internal Nose: nasal mucosa normal; Oral Cavity/Oropharynx Lips: normal; Teeth: normal; Gums: gingiva normal; Tongue: normal; Oral mucosa: normal; Hard palate: normal; Neck Neck: neck normal; neck palpation normal; Thyroid: thyroid normal; Respiratory Inspection: breathing unlabored; normal breathing rate; Auscultation: breath sounds are clear; Cardiovascular Inspection: extremities are warm and well perfused; no peripheral edema present; Auscultation: regular rate and rhythm; Patient ID: Chad Mckeon is a 84 y.o. male. Procedures A diagnostic flexible fiberoptic laryngoscopy was performed. The flexible fiberoptic laryngoscope was placed into the nose and advanced to the level of the tip of the epiglottis. Examination of the larynx including both surfaces of the epiglottis false and true vocal folds, arytenoids and surrounding mucosal surfaces shows an immobile left TVC with a mass involving the TVC. Normal bilateral true vocal fold motion is present. Bilateral piriform sinuses and base of tongue appear without lesion Assessment/Plan Diagnoses and all orders for this visit: Vocal cord mass Hoarse Pt has a mass of the left TVC c/w at least a T3 carcinoma. I will check a CT neck and arrange for a microlaryngoscopy and biopsy. Pt will need to stop ASA for 10 days before the procedure. Pt will need cardiac clearance. Last saw contracts analyst 1-2 mo ago. documented in this encounter [facility] 10-31-2024 Note [facility] Subjective Chad Mckeon is a 84 y.o. year old male patient being seen for 6 mo follow up CAD, and hyperlipidemia. No recent labs/imaging. Denies chest pain, SOB, and palpitations. 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 He was transferred to [facility]. Cardiac catheterization showed severe three-vessel coronary disease. [...] normal (more content not included)... [facility] 05-16-2024 Note Coronary artery dise ase is unchanged. Continue GDMT- ASA, plavix, metoprolol, lipitor Continue heart healthy diet and regular exercise Continue current treatment regimen. Continue current medications. Cardiac status will be reassessed in 6 months. [facility] 05-16-2024 Note [facility] CARDIOLOGY PROGR ESS NOTE [...] ALP 123, AST 16, ALT 23 Pro [id number]- normal TSH 5.227= elevated, Free T4 1.24 [...] sung (more content not included)... [facility] 05-16-2024 Note Pt is here for a six month follow up. Pt denies sob, chest pain, palpatations. Review of Systems All other systems reviewed and are negative. [facility] 05-16-2024 Note Lipid abnormalities are well controlled, liver function normal Continue lipitor [facility] 05-16-2024 Note Hypertension is well controlled Continue metoprolol Renal function normal [facility] Evaluation note Diagnosis Vocal cord mass- Primary Other diseases of vocal cords Hoarse Dysphonia [facility] Cancer of true vocal cord- Primary Malignant neoplasm of glottis [facility] noteNo assessment information availableOhio[facility] Work Phone: Evaluation note* Diagnosis Head and neck cancer (HCC) Malignant neoplasm of head, face, and neck [facility] Head and neck cancer (HCC) Malignant neoplasm of head, face, and neck 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) Personal history of nicotine dependence Personal history of tobacco use, presenting hazards to health 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 Type 2 diabetes mellitus without complication, unspecified whether terminal manager insulin use (HCC) [facility] Diagnosis Head and neck cancer (HCC)- Primary Malignant neoplasm of head, face, and neck Head and neck cancer (HCC) Malignant neoplasm of head, face, and neck [facility] Head and neck cancer (HCC)- Primary Malignant neoplasm of head, face, and neck Lung nodule Solitary pulmonary nodule [facility] Diagnosis Adenopathy- Primary Enlargement of lymph nodes [facility] Diagnosis 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 Enlargement of lymph nodes [facility] Diagnosis Adenopathy- Primary Enlargement of lymph nodes Head and neck cancer (HCC) Malignant neoplasm of head, face, and neck Type 2 diabetes mellitus without complication, unspecified whether jail insulin use (HCC) 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 Enlargement of lymph nodes [facility] Head and neck cancer (HCC)- Primary Malignant neoplasm of head, face, and neck [facility] Diagnosis Head and neck cancer (HCC)- Primary Malignant neoplasm of head, face, and neck [facility] Diagnosis Encounter for education- Primary Counseling NOS [facility] Diagnosis 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 [facility] Diagnosis Head and neck cancer (HCC)- Primary Malignant neoplasm of head, face, and neck [facility] Diagnosis 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 Type 2 diabetes mellitus without complication, unspecified whether terminal manager insulin use (HCC) [facility] Diagnosis Head and neck cancer (HCC)- Primary Malignant neoplasm of head, face, and neck 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) [facility] Diagnosis Head and neck cancer (HCC)- Primary Malignant neoplasm of head, face, and neck [facility] Diagnosis Head and neck cancer (HCC)- Primary Malignant neoplasm of head, face, and neck [facility] Diagnosis 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 [facility] Diagnosis Head and neck cancer (HCC)- Primary Malignant neoplasm of head, face, and neck 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) [facility] Diagnosis Head and neck cancer (HCC)- Primary Malignant neoplasm of head, face, and neck [facility] Diagnosis Head and neck cancer (HCC)- Primary Malignant neoplasm of head, face, and neck 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) [facility] Diagnosis Head and neck cancer (HCC)- Primary Malignant neoplasm of head, face, and neck [facility] Diagnosis Head and neck cancer (HCC)- Primary Malignant neoplasm of head, face, and neck [facility] Diagnosis 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 Malignant neoplasm of unspecified part of unspecified bronchus or lung (HCC) Head and neck cancer (HCC) Malignant neoplasm of head, face, and neck Encounter for antineoplastic chemotherapy Chemotherapy-induced fatigue Thrombocytopenia Thrombocytopenia, unspecified Constipation, unspecified constipation type Neoplastic (malignant) related fatigue Dehydration [facility] Diagnosis 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 documented in this encounter [facility] for visit Narrative* [place] Prior Authorization (Routine) - Authorized Specialty Diagnoses / Procedures Referred By Contkalpesh t Referred To Contact Diagnoses Head and neck cancer (HCC) 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) Chandan Burgos MD [address] [place] [address] [place] [address] Phone: tel: fax: Hematology/Oncology [address] [place] [address] [place] [address] Phone: tel: fax: Referral ID Status Reason Start Date Expiration Date V isits Requested Visits Authorized [id number] Authorized 02/06/2025 05/07/2025 99 99 [facility] Summary Purpose Family History No Family History Records FoundNo Family History Records FoundNo Family History Records FoundNo Family History Records FoundNo Family History Records FoundNo Family History Records FoundNo Family History Records Found Advance Directives No Advanced Directives Records FoundNo Advanced Directives Records FoundNo Advanced Directives Records FoundNo Advanced Directives Records FoundNo Advanced Directives Records FoundNo Advanced Directives Records FoundNo Advanced Directives Records Found Additional Source Comments (unrecognized sect ion and content) No Status Records FoundNo Status Records FoundNo Status Records FoundNo Status Records FoundNo Status Records FoundNo Status Records FoundNo Status Records Found INFORMATION SOURCE (unrecogn ized section and content) DATE CREATED AUTHOR 01/09/2023 [facility] DATE CREATED AUTHOR AUTHOR'S ORGANIZ ATION 11/18/2024 [facility] DATE CREATED AUTHOR AUTHOR'S ORGANIZ ATION 01/08/2025 [facility] EPIC DATE CREATED AUTHOR AUTHOR'S ORGANIZ ATION 02/15/2025 [facility] DATE CREATED AUTHOR AUTHOR'S ORGANIZ ATION 02/21/2025 [facility] DATE CREATED AUTHOR AUTHOR'S ORGANIZ ATION 02/26/2025 [facility] DATE CREATED AUTHOR AUTHOR'S ORGANIZ ATION 04/12/2025 [facility] Teams (unrecognized sec tion and content) Dozer Operator Relationship Specialty Start Date End Date Fausto Juarez MD [address] [place] [address] PCP - General Family Medicine 12/10/24 Dozer Operator Relationship Specialty Start Date End Date Fausto Juarez MD [address] [place] [address] PCP - General Family Medicine 12/10/24 Dozer Operator Relationship Specialty Start Date End Date Fausto Juarez MD [address] [place] [address] PCP - General Family Medicine 12/10/24 Dozer Operator Relationship Specialty Start Date End Date Fausto Juarez MD [address] [place] [address] PCP - General Family Medicine 01/02/25 Dozer Operator Relationship Specialty Start Date End Date Fausto Juarez MD [address] [place] [address] PCP - General Family Medicine 01/02/25 Team Status: Inactive Member Role Status Dates Austin Jarquin Jr, MD Attending Provider Active Start: January 01, 2025 End: January 01, 2025 Dozer Operator Relationship Specialty Start Date End Date Fausto Juarez MD [address] [facility] [place] [address] PCP - General Family Medicine 12/02/15 Austin Jarquin MD [address] [place] [address] Referring Ent - Otolaryngology 01/20/25 Dozer Operator Relationship Specialty Start Date End Date Fausto Juarez MD [address] [facility] [place] [address] PCP - General Family Medicine 12/02/15 Austin Jarquin MD [address] [place] [address] Referring Ent - Otolaryngology 01/20/25 Dozer Operator Relationship Specialty Start Date End Date Fausto Juarez MD [address] [facility] [place] [address] PCP - General Family Medicine 12/02/15 Austin Jarquin MD [address] [place] [address] Referring Ent - Otolaryngology 01/20/25 Dozer Operator Relationship Specialty Start Date End Date Fausto Juarez MD [address] [place] [address] PCP - General Family Medicine 12/02/15 Austin Jarquin MD [address] [place] [address] Referring Ent - Otolaryngology 01/20/25 Chandan Burgos MD [address] [place] [address] Physician Hematology/Oncology 02/03/25 Gisella Grant MD [address] [place] [address] Physician Radiation Oncology 02/03/25 Vladimir Finley, RN [address] [facility] [place] [address] Specialty Educational Assistant Hematology/Oncology 02/03/25 Dozer Operator Relationship Specialty Start Date End Date Fausto Juarez MD [address] [place] [address] PCP - General Family Medicine 12/02/15 Austin Jarquin MD [address] [place] [address] [address] [place] [address] Referring Ent - Otolaryngology 01/20/25 Chandan Burgos MD [address] [facility] [place] [address] Physician Hematology/Oncology 02/03/25 Gisella Grant MD [address] [facility] [place] [address] Physician Radiation Oncology 02/03/25 Vladimir Finley, YONATAN [address] [facility] [place] [address] Specialty Educational Assistant Hematology/Oncology 02/03/25 Dozer Operator Relationship Specialty Start Date End Date Fausto Juarez MD [address] [place] [address] PCP - General Family Medicine 12/02/15 Austin Jarquin MD [address] [place] [address] Referring Ent - Otolaryngology 01/20/25 Dozer Operator Relationship Specialty Start Date End Date Fausto Juarez MD [address] [place] [address] PCP - General Family Medicine 12/02/15 Austin Jarquin MD [address] [facility] [address] [place] [address] Referring Ent - Otolaryngology 01/20/25 Chandan Burgos MD [address] [place] [address] Physician Hematology/Oncology 02/03/25 Gisella Grant MD [address] [place] [address] Physician Radiation Oncology 02/03/25 Vladimir Finley, YONATAN [address] [place] [address] Specialty Educational Assistant Hematology/Oncology 02/03/25 Dozer Operator Relationship Specialty Start Date End Date Fausto Juarez MD [address] [place] [address] PCP - General Family Medicine 12/02/15 Austin Jarquin MD [address] [place] [address] Referring Ent - Otolaryngology 01/20/25 Chandan Burgos MD [address] [facility] [place] [address] Physician Hematology/Oncology 02/03/25 Gisella Grant MD [address] [place] [address] Physician Radiation Oncology 02/03/25 Vladimir Finley, YONATAN [address] [facility] [place] [address] Specialty Educational Assistant Hematology/Oncology 02/03/25 Dozer Operator Relationship Specialty Start Date End Date Fausto Juarez MD [address] [place] [address] PCP - General Family Medicine 12/02/15 Austin Jarquin MD [address] [place] [address] [address] [place] [address] Referring Ent - Otolaryngology 01/20/25 Chandan Burgos MD [address] [facility] [place] [address] Physician Hematology/Oncology 02/03/25 Gieslla Grant MD [address] [place] [address] Physician Radiation Oncology 02/03/25 Vladimir Finley, RN [address] [facility] [place] [address] Specialty Educational Assistant Hematology/Oncology 02/03/25 Dozer Operator Relationship Specialty Start Date End Date Fausto Juarez MD [address] [facility] [place] [address] PCP - General Family Medicine 12/02/15 Austin Jarquin MD [address] [place] [address] Referring Ent - Otolaryngology 01/20/25 Chandan Burgos MD [address] [place] [address] Physician Hematology/Oncology 02/03/25 Gisella Grant MD [address] [place] [address] Physician Radiation Oncology 02/03/25 Vladimir Finley, YONATAN [address] [place] [address] Specialty Educational Assistant Hematology/Oncology 02/03/25 Dozer Operator Relationship Specialty Start Date End Date Fausto Juarez MD [address] [facility] [place] [address] PCP - General Family Medicine 12/02/15 Austin Jarquin MD [address] [place] [address] Referring Ent - Otolaryngology 01/20/25 Chandan Burgos MD [address] [place] [address] Physician Hematology/Oncology 02/03/25 Gisella Grant MD [address] [place] [address] Physician Radiation Oncology 02/03/25 Vladimir Finley, YONATAN [address] [place] [address] Specialty Educational Assistant Hematology/Oncology 02/03/25 Dozer Operator Relationship Specialty Start Date End Date Fausto Juarez MD [facility] [place] [address] PCP - General Family Medicine 12/02/15 Austin Jarquin MD [address] [place] [address] Referring Ent - Otolaryngology 01/20/25 Dozer Operator Relationship Specialty Start Date End Date Fausto Juarez MD [facility] [place] [address] PCP - General Family Medicine 12/02/15 Austin Jarquin MD [address] [place] [address] WAY [address] [place] [address] Referring Ent - Otolaryngology 01/20/25 Chandan Burgos MD [address] [place] [address] Physician Hematology/Oncology 02/03/25 Gisella Grant MD [address] [place] [address] Physician Radiation Oncology 02/03/25 Vladimir Finley, YONATAN [address] [place] [address] Specialty Educational Assistant Hematology/Oncology 02/03/25 Dozer Operator Relationship Specialty Start Date End Date Fausto Juarez MD [address] [place] [address] PCP - General Family Medicine 12/02/15 Austin Jarquin MD [address] [place] [address] Referring Ent - Otolaryngology 01/20/25 Chandan Burgos MD [address] [place] [address] Physician Hematology/Oncology 02/03/25 Gisella Grant MD [address] [place], [facility] Physician Radiation Oncology 02/03/25 Vladimir Finley, YONATAN [address] [place] [address] Specialty Educational Assistant Hematology/Oncology 02/03/25 Dozer Operator Relationship Specialty Start Date End Date Fausto Juarez MD [address] [place] [address] PCP - General Family Medicine 12/02/15 Austin Jarquin MD [address] [place] [address] Referring Ent - Otolaryngology 01/20/25 Chandan Burgos MD [address] [place] [address] Physician Hematology/Oncology 02/03/25 Gisella Grant MD [address] [place] [address] Physician Radiation Oncology 02/03/25 Vladimir Finley, RN [address] [facility] [place] [address] Specialty Educational Assistant Hematology/Oncology 02/03/25 Dozer Operator Relationship Specialty Start Date End Date Fausto Juarez MD [address] [place] [address] PCP - General Family Medicine 12/02/15 Austin Jarquin MD [address] [place] [address] Referring Ent - Otolaryngology 01/20/25 Chandan Burgos MD [address] [facility] [place] [address] Physician Hematology/Oncology 02/03/25 Gisella Grant MD [address] [facility] [place] [address] Physician Radiation Oncology 02/03/25 Vladimir Finley, RN [address] [place] [address] Specialty Educational Assistant Hematology/Oncology 02/03/25 Dozer Operator Relationship Specialty Start Date End Date Fausto Juarez MD [address] [place] [address] PCP - General Family Medicine 12/02/15 Austin Jarquin MD [facility] [address] [place] [address] Referring Ent - Otolaryngology 01/20/25 Chandan Burgos MD [address] [place] [address] Physician Hematology/Oncology 02/03/25 Gisella Grant MD [address] [place] [address] Physician Radiation Oncology 02/03/25 Vladimir Finley, YONATAN [address] [facility] [place] [address] Specialty Educational Assistant Hematology/Oncology 02/03/25 Dozer Operator Relationship Specialty Start Date End Date Fausto Juarez MD [address] [place] [address] PCP - General Family Medicine 12/02/15 Austin Jarquin MD [address] [place] [address] [address] [place] [address] Referring Ent - Otolaryngology 01/20/25 Chandan Burgos MD [address] [place] [address] Physician Hematology/Oncology 02/03/25 Gisella Grant MD [address] [place] [address] Physician Radiation Oncology 02/03/25 Vladimir Finley, RN [address] [facility] [place] [address] Specialty Educational Assistant Hematology/Oncology 02/03/25 Dozer Operator Relationship Specialty Start Date End Date Fausto Juarez MD [address] [place] [address] PCP - General Family Medicine 12/02/15 Austin Jarquin MD [address] [place] [address] Referring Ent - Otolaryngology 01/20/25 Chandan Burgos MD [address] [place] [address] Physician Hematology/Oncology 02/03/25 Gisella Grant MD [address] [place] [address] Physician Radiation Oncology 02/03/25 Vladimir Finley, YONATAN [address] [place] [address] Specialty Educational Assistant Hematology/Oncology 02/03/25 Dozer Operator Relationship Specialty Start Date End Date Fausto Juarez MD [address] [place] [address] PCP - General Family Medicine 12/02/15 Austin Jarquin MD [address] [place] [address] Referring Ent - Otolaryngology 01/20/25 Chandan Burgos MD [address] [place] [address] Physician Hematology/Oncology 02/03/25 Gisella Grant MD [address] [facility] [place] [address] Physician Radiation Oncology 02/03/25 Vladimir Finley, YONATAN [address] [facility] [place] [address] Specialty Educational Assistant Hematology/Oncology 02/03/25 Dozer Operator Relationship Specialty Start Date End Date Fausto Juarez MD [address] [place] [address] PCP - General Family Medicine 12/02/15 Austin Jarquin MD [address] [place] [address] Referring Ent - Otolaryngology 01/20/25 Chandan Burgos MD [address] [facility] [place] [address] Physician Hematology/Oncology 02/03/25 Gisella Grant MD [address] [facility] [place] [address] Physician Radiation Oncology 02/03/25 Vladimir Finley, YONATAN [address] [facility] [place] [address] Specialty Educational Assistant Hematology/Oncology 02/03/25 Dozer Operator Relationship Specialty Start Date End Date Fausto Juarez MD [address] [place] [address] PCP - General Family Medicine 12/02/15 Austin Jarquin MD [address] [place] [address] [address] [place] [address] Referring Ent - Otolaryngology 01/20/25 Chandan Burgos MD [address] [place] [address] Physician Hematology/Oncology 02/03/25 Gisella Grant MD [address] [facility] [place] [address] Physician Radiation Oncology 02/03/25 Vladimir Finley, YONATAN [address] [facility] [place] [address] Specialty Educational Assistant Hematology/Oncology 02/03/25 Dozer Operator Relationship Specialty Start Date End Date Fausto Juarez MD [address] [place] [address] PCP - General Family Medicine 12/02/15 Austin Jarquin MD [address] [place] [address] [address] [place] [address] Referring Ent - Otolaryngology 01/20/25 Chandan Burgos MD [address] [place] [address] Physician Hematology/Oncology 02/03/25 Gisella Grant MD [address] [facility] [place] [address] Physician Radiation Oncology 02/03/25 Vladimir Finley, RN [address] [facility] [place] [address] Specialty Educational Assistant Hematology/Oncology 02/03/25 Dozer Operator Relationship Specialty Start Date End Date Fausto Juarez MD [address] [place] [address] PCP - General Family Medicine 12/02/15 Austin Jarquin MD [address] [place] [address] Referring Ent - Otolaryngology 01/20/25 Chandan Burgos MD [address] [facility] [place] [address] Physician Hematology/Oncology 02/03/25 Gisella Grant MD [address] [facility] [place] [address] Physician Radiation Oncology 02/03/25 Vladimir Finley, YONATAN [address] [facility] [place] [address] Specialty Educational Assistant Hematology/Oncology 02/03/25 Dozer Operator Relationship Specialty Start Date End Date Fausto Juarez MD [address] [place] [address] PCP - General Family Medicine 12/02/15 Austin Jarquin MD [address] [place] [address] Referring Ent - Otolaryngology 01/20/25 Chandan Burgos MD [address] [facility] [place] [place] [address] Physician Hematology/Oncology 02/03/25 Gisella Grant MD [address] [facility] [place] [address] Physician Radiation Oncology 02/03/25 Vladimir Finley, YONATAN [address] [facility] [place] [address] Specialty Educational Assistant Hematology/Oncology 02/03/25 Dozer Operator Relationship Specialty Start Date End Date Fausto Juarez MD [address] [place] [address] PCP - General Family Medicine 12/02/15 Austin Jarquin MD [address] [place] [address] Referring Ent - Otolaryngology 01/20/25 Chandan Burgos MD [address] [address] [address] [place] [address] Physician Hematology/Oncology 02/03/25 Gisella Grant MD [address] [address] [place] [address] Physician Radiation Oncology 02/03/25 Vladimir Finley, YONATAN [address] [facility] [place] [address] Specialty Educational Assistant Hematology/Oncology 02/03/25 Dozer Operator Relationship Specialty Start Date End Date Fausto Juarez MD [address] [place] [address] PCP - General Family Medicine 12/02/15 Austin Jarquin MD [address] [place] [address] Referring Ent - Otolaryngology 01/20/25 Chandan Burgos MD [address] [facility] [place] [address] Physician Hematology/Oncology 02/03/25 Gisella Grant MD [address] [facility] [place] [address] Physician Radiation Oncology 02/03/25 Vladimir Finley, YONATAN [address] [facility] [place] [address] Specialty Educational Assistant Hematology/Oncology 02/03/25 Dozer Operator Relationship Specialty Start Date End Date Fausto Juarez MD [address] [place] [address] PCP - General Family Medicine 12/02/15 Austin Jaruqin MD [address] [place] [address] [address] [place] [address] Referring Ent - Otolaryngology 01/20/25 Chandan Burgos MD [address] [place] [address] Physician Hematology/Oncology 02/03/25 Gisella Grant MD [address] [place] [address] Physician Radiation Oncology 02/03/25 Vladimir Finley, RN [address] [facility] [place] [address] Specialty Educational Assistant Hematology/Oncology 02/03/25 Dozer Operator Relationship Specialty Start Date End Date Fausto Juarez MD [address] [place] [address] PCP - General Family Medicine 12/02/15 Austin Jarquin MD [address] [place] [address] Referring Ent - Otolaryngology 01/20/25 Chandan Burgos MD [address] [place] [address] Physician Hematology/Oncology 02/03/25 Gisella Grant MD [address] [place] [address] Physician Radiation Oncology 02/03/25 Vladimir Finley, YONATAN [address] [place] [address] Specialty Educational Assistant Hematology/Oncology 02/03/25 Dozer Operator Relationship Specialty Start Date End Date Fausto Juarez MD [address] [place] [address] PCP - General Family Medicine 12/02/15 Austin Jarquin MD [address] [place] [address] Referring Ent - Otolaryngology 01/20/25 Chandan Burgos MD [address] [place] [address] Physician Hematology/Oncology 02/03/25 Gisella Grant MD [address] [place] [address] [place] [address] Physician Radiation Oncology 02/03/25 Vladimir Finley, RN [address] [place] [address] [place] [address] Specialty Educational Assistant Hematology/Oncology 02/03/25 Reason for Visit (unrecogniz ed section and content) Reason Comments Hoarseness Reason Comments Vocal Cord Mass S/p DL&E TBH 01/01/25 Reason Comments Research Prescreen Reason Comments Radiology NM Specialty Diagnoses / Procedures Referred By Contac t Referred To Contact MOLECULAR & FUNCTIONAL IMAGING Diagnoses Head and neck cancer (HCC) Procedures NM PET/CT SKULL-THIGH INITIAL PET IMAGING CT ATTENUATION SKULL BASE MID-THIGH Gisella Grant MD [address] [place] [address] [place] [address] Phone: tel: fax: [facility] [address] [place] [address] Phone: tel: Referral ID Status Reason Start Date Expiration Date V isits Requested Visits Authorized [id number] Closed Auto-Generate d Referral 01/27/2025 02/26/2026 1 1 Reason Comments Consult Specialty Diagnoses / Procedures Referred By Contac t Referred To Contact Oncology Diagnoses Head and neck cancer (HCC) Procedures CONSULT TO ONCOLOGY OFFICE/OUTPATIENT [facility] MDM 60 MINUTES Gisella Grant MD [address] [place] [address] [place] [address] Phone: tel: fax: Referral ID Status Reason Start Date Expiration Date V isits Requested Visits Authorized [id number] Closed PCP Requested Referral 01/27/2025 01/27/2026 1 1 Reason Comments Appointment Reason Comments Care Coordination Antiemetics Reason Comments Consult Specialty Diagnoses / Procedures Referred By Contac t Referred To Contact Radiation Oncology Diagnoses Cancer of true vocal cord (HCC) Procedures OFFICE/OUTPATIENT [facility] MDM 60 MINUTES [id number] (SNOMED CT) - AMB REFERRAL TO RADIATION ONCOLOGY Austin Jarquin MD [address] [facility] [address] [place] [address] Phone: tel: fax: Gisella Grant MD [address] [place] [address] Phone: tel: fax: Referral ID Status Reason Start Date Expiration Date V isits Requested Visits Authorized [id number] Pending Review 01/20/2025 07/19/2025 1 1 Reason Comments Bronchoscopy Scheduling Reason Comments Patient Education Reason Comments Nutrition Assessment Reason Comments Future Appointment Schedule Simulation Reason Comments to Reason Onset Date Comments Simulation Request Form 03/03/2025 Reason Comments First Time Treatment Education Cisplatin Reason Onset Date Comments Refill Request 03/03/2025 [employer] [facility] Reason Comments Radiotherapy On-treatment Visit Reason Comments Care Coordination C1D1 Post Treatment Call Reason Comments Head and Neck Cancer Treatment visit 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 Goals (unrecognized section and content) Goals may be documented in a n alternate section Source Comments (unrecognize d section and content) In the event this informatio n is protected by the Federal Confidentiality of Alcohol and Drug Abuse Patient Records regulations: The Federal rules restrict any use of the information to criminally investigate or prosecute any alcohol or drug abuse patient.[facility] the event this information is protected by the Federal Confidentiality of Alcohol and Drug Abuse Patient Records regulations: The Federal rules restrict any use of the information to criminally investigate or prosecute any alcohol or drug abuse patient.[facility] HospitalIn the event this information is protected by the Federal Confidentiality of Alcohol and Drug Abuse Patient Records regulations: The Federal rules restrict any use of the information to criminally investigate or prosecute any alcohol or drug abuse patient.[facility] HospitalIn the event this information is protected by the Federal Confidentiality of Alcohol and Drug Abuse Patient Records regulations: The Federal rules restrict any use of the information to criminally investigate or prosecute any alcohol or drug abuse patient.[facility] HospitalIn the event this information is protected by the Federal Confidentiality of Alcohol and Drug Abuse Patient Records regulations: The Federal rules restrict any use of the information to criminally investigate or prosecute any alcohol or drug abuse patient.[facility] HospitalIn the event this information is protected by the Federal Confidentiality of Alcohol and Drug Abuse Patient Records regulations: The Federal rules restrict any use of the information to criminally investigate or prosecute any alcohol or drug abuse patient.[facility] HospitalIn the event this information is protected by the Federal Confidentiality of Alcohol and Drug Abuse Patient Records regulations: The Federal rules restrict any use of the information to criminally investigate or prosecute any alcohol or drug abuse patient.[facility] HospitalIn the event this information is protected by the Federal Confidentiality of Alcohol and Drug Abuse Patient Records regulations: The Federal rules restrict any use of the information to criminally investigate or prosecute any alcohol or drug abuse patient.[facility] HospitalIn the event this information is protected by the Federal Confidentiality of Alcohol and Drug Abuse Patient Records regulations: The Federal rules restrict any use of the information to criminally investigate or prosecute any alcohol or drug abuse patient.[facility] HospitalIn the event this information is protected by the Federal Confidentiality of Alcohol and Drug Abuse Patient Records regulations: The Federal rules restrict any use of the information to criminally investigate or prosecute any alcohol or drug abuse patient.[facility] HospitalIn the event this information is protected by the Federal Confidentiality of Alcohol and Drug Abuse Patient Records regulations: The Federal rules restrict any use of the information to criminally investigate or prosecute any alcohol or drug abuse patient.[facility] HospitalIn the event this information is protected by the Federal Confidentiality of Alcohol and Drug Abuse Patient Records regulations: The Federal rules restrict any use of the information to criminally investigate or prosecute any alcohol or drug abuse patient.[facility] HospitalIn the event this information is protected by the Federal Confidentiality of Alcohol and Drug Abuse Patient Records regulations: The Federal rules restrict any use of the information to criminally investigate or prosecute any alcohol or drug abuse patient.[facility] HospitalIn the event this information is protected by the Federal Confidentiality of Alcohol and Drug Abuse Patient Records regulations: The Federal rules restrict any use of the information to criminally investigate or prosecute any alcohol or drug abuse patient.[facility] HospitalIn the event this information is protected by the Federal Confidentiality of Alcohol and Drug Abuse Patient Records regulations: The Federal rules restrict any use of the information to criminally investigate or prosecute any alcohol or drug abuse patient.[facility] HospitalIn the event this information is protected by the Federal Confidentiality of Alcohol and Drug Abuse Patient Records regulations: The Federal rules restrict any use of the information to criminally investigate or prosecute any alcohol or drug abuse patient.[facility] HospitalIn the event this information is protected by the Federal Confidentiality of Alcohol and Drug Abuse Patient Records regulations: The Federal rules restrict any use of the information to criminally investigate or prosecute any alcohol or drug abuse patient.[facility] HospitalIn the event this information is protected by the Federal Confidentiality of Alcohol and Drug Abuse Patient Records regulations: The Federal rules restrict any use of the information to criminally investigate or prosecute any alcohol or drug abuse patient.[facility] HospitalIn the event this information is protected by the Federal Confidentiality of Alcohol and Drug Abuse Patient Records regulations: The Federal rules restrict any use of the information to criminally investigate or prosecute any alcohol or drug abuse patient.[facility] HospitalIn the event this information is protected by the Federal Confidentiality of Alcohol and Drug Abuse Patient Records regulations: The Federal rules restrict any use of the information to criminally investigate or prosecute any alcohol or drug abuse patient.[facility] HospitalIn the event this information is protected by the Federal Confidentiality of Alcohol and Drug Abuse Patient Records regulations: The Federal rules restrict any use of the information to criminally investigate or prosecute any alcohol or drug abuse patient.[facility] HospitalIn the event this information is protected by the Federal Confidentiality of Alcohol and Drug Abuse Patient Records regulations: The Federal rules restrict any use of the information to criminally investigate or prosecute any alcohol or drug abuse patient.[facility] HospitalIn the event this information is protected by the Federal Confidentiality of Alcohol and Drug Abuse Patient Records regulations: The Federal rules restrict any use of the information to criminally investigate or prosecute any alcohol or drug abuse patient.[facility] HospitalIn the event this information is protected by the Federal Confidentiality of Alcohol and Drug Abuse Patient Records regulations: The Federal rules restrict any use of the information to criminally investigate or prosecute any alcohol or drug abuse patient.[facility] HospitalIn the event this information is protected by the Federal Confidentiality of Alcohol and Drug Abuse Patient Records regulations: The Federal rules restrict any use of the information to criminally investigate or prosecute any alcohol or drug abuse patient.[facility] HospitalIn the event this information is protected by the Federal Confidentiality of Alcohol and Drug Abuse Patient Records regulations: The Federal rules restrict any use of the information to criminally investigate or prosecute any alcohol or drug abuse patient.[facility] HospitalIn the event this information is protected by the Federal Confidentiality of Alcohol and Drug Abuse Patient Records regulations: The Federal rules restrict any use of the information to criminally investigate or prosecute any alcohol or drug abuse patient.[facility] HospitalIn the event this information is protected by the Federal Confidentiality of Alcohol and Drug Abuse Patient Records regulations: The Federal rules restrict any use of the information to criminally investigate or prosecute any alcohol or drug abuse patient.[facility] HospitalIn the event this information is protected by the Federal Confidentiality of Alcohol and Drug Abuse Patient Records regulations: The Federal rules restrict any use of the information to criminally investigate or prosecute any alcohol or drug abuse patient.[facility] HospitalIn the event this information is protected by the Federal Confidentiality of Alcohol and Drug Abuse Patient Records regulations: The Federal rules restrict any use of the information to criminally investigate or prosecute any alcohol or drug abuse patient.[facility] HospitalIn the event this information is protected by the Federal Confidentiality of Alcohol and Drug Abuse Patient Records regulations: The Federal rules restrict any use of the information to criminally investigate or prosecute any alcohol or drug abuse patient.[facility] HospitalIn the event this information is protected by the Federal Confidentiality of Alcohol and Drug Abuse Patient Records regulations: The Federal rules restrict any use of the information to criminally investigate or prosecute any alcohol or drug abuse patient.[facility] HospitalIn the event this information is protected by the Federal Confidentiality of Alcohol and Drug Abuse Patient Records regulations: The Federal rules restrict any use of the information to criminally investigate or prosecute any alcohol or drug abuse patient.[facility] HospitalIn the event this information is protected by the Federal Confidentiality of Alcohol and Drug Abuse Patient Records regulations: The Federal rules restrict any use of the information to criminally investigate or prosecute any alcohol or drug abuse patient.[facility] HospitalIn the event this information is protected by the Federal Confidentiality of Alcohol and Drug Abuse Patient Records regulations: The Federal rules restrict any use of the information to criminally investigate or prosecute any alcohol or drug abuse patient.[facility] HospitalIn the event this information is protected by the Federal Confidentiality of Alcohol and Drug Abuse Patient Records regulations: The Federal rules restrict any use of the information to criminally investigate or prosecute any alcohol or drug abuse patient.[facility] HospitalIn the event this information is protected by the Federal Confidentiality of Alcohol and Drug Abuse Patient Records regulations: The Federal rules restrict any use of the information to criminally investigate or prosecute any alcohol or drug abuse patient.[facility] HospitalIn the event this information is protected by the Federal Confidentiality of Alcohol and Drug Abuse Patient Records regulations: The Federal rules restrict any use of the information to criminally investigate or prosecute any alcohol or drug abuse patient.[facility] HospitalIn the event this information is protected by the Federal Confidentiality of Alcohol and Drug Abuse Patient Records regulations: The Federal rules restrict any use of the information to criminally investigate or prosecute any alcohol or drug abuse patient.[facility] HospitalIn the event this information is protected by the Federal Confidentiality of Alcohol and Drug Abuse Patient Records regulations: The Federal rules restrict any use of the information to criminally investigate or prosecute any alcohol or drug abuse patient.[facility] HospitalIn the event this information is protected by the Federal Confidentiality of Alcohol and Drug Abuse Patient Records regulations: The Federal rules restrict any use of the information to criminally investigate or prosecute any alcohol or drug abuse patient.[facility] FOR RECORDS PERTAINING TO PATIENTS WHO [...] BE BASED ON THE PRIMARY CLINICAL RECORDS. [facility]. provides no warranty or guarantee of the accuracy or completeness of information in this document.
--- NOTE | 2025-04-14 11:43 | PM.WCHP ---
Wound Care H&P: HPI History of Present Illness Narrative: The patient is a pleasant 84-year-old gentleman with history of throat cancer and type 2 diabetes who presents for routine nail care. He has no complaints at this time in regards to his feet. [facility] Medical History (Updated 01/15/25 @ 14:32 by BHARAT Basilio) Hip pain ?M25.559 - Pain in unspecified hip (ICD-10) Knee pain ?M25.569 - Pain in unspecified knee (ICD-10) Postoperative atrial fibrillation ?I97.89 - Other postprocedural complications and disorders of the circulatory system, not elsewhere classified (ICD-10) ?I48.91 - Unspecified atrial fibrillation (ICD-10) Respiratory insufficiency ?R06.89 - Other abnormalities of breathing (ICD-10) Acute blood loss as cause of postoperative anemia ?D62 - Acute posthemorrhagic anemia (ICD-10) Pleural effusion ?J90 - Pleural effusion, not elsewhere classified (ICD-10) Atelectasis ?J98.11 - Atelectasis (ICD-10) Angina pectoris ?I20.9 - Angina pectoris, unspecified (ICD-10) CAD (coronary artery disease) ?I25.10 - Atherosclerotic heart disease of [place] coronary artery without angina pectoris (ICD-10) Arthritis ?M19.90 - Unspecified osteoarthritis, unspecified site (ICD-10) Macular degeneration ?H35.30 - Unspecified macular degeneration (ICD-10) GERD (gastroesophageal reflux disease) ?K21.9 - Gastro-esophageal reflux disease without esophagitis (ICD-10) Hypertension ?I10 - Essential (primary) hypertension (ICD-10) Hyperlipidemia ?E78.5 - Hyperlipidemia, unspecified (ICD-10) Diabetes ?E11.9 - Type 2 diabetes mellitus without complications (ICD-10) COPD (chronic obstructive pulmonary disease) ?J44.9 - Chronic obstructive pulmonary disease, unspecified (ICD-10) Surgical History (Updated 01/01/25 @ 10:45 by Eve Han) History of cataract extraction ?Z98.49 - Cataract extraction status, unspecified eye (ICD-10) Hx of CABG ?Z95.1 - Presence of aortocoronary bypass graft (ICD-10) S/P triple vessel bypass ?Z95.1 - Presence of aortocoronary bypass graft (ICD-10) Family History (Updated 12/19/24 @ 12:58 by Sujata Shepherd NP) Other Family history of heart disease Social History (Updated 02/03/23 @ 06:34 by Aparna Wallace) Within the past year, how often did you have a drink containing alcohol: never Score interpretation: A score less than 4 is consistent with normal alcohol consumption. Smoking status: Former smoker Non-prescribed substance use: denies use Previous occupational history: retired Highest level of school completed/degree received: high school graduate Are you now , , , , never or living with a partner: In a typical week, how many times do you talk on the telephone with family, friends, or neighbors: 3 or more times per week How often do you get together with friends or relatives: 3 or more times per week How often do you attend catholic or advent services: 4 or more times per year Do you belong to any clubs or organizations such as catholic groups unions, [employer] or athletic groups, or school groups: yes Total score: 3 Score interpretation: A score of greater than or equal to 2 indicates the lowest level of social isolation. Little interest or pleasure in doing things: not at all Feeling down, depressed, or hopeless: not at all Feel stressed/tense/nervous/anxious/difficulty sleeping: not at all Due to disability, difficulty making decisions: No Do you think of yourself as: straight/heterosexual Gender Identity: male Meds Home Medications and Allergies Home Medications ?Medication ?Instructions ?Recorded ?Confirmed ?Type acetaminophen 325 mg tablet (Pain 650 mg PO Q6H PRN pain 02/02/23 01/01/25 History Relief (acetaminophen)) amiodarone 200 mg tablet 200 mg PO DAILY 02/02/23 01/01/25 History aspirin 81 mg chewable tablet 81 mg PO DAILY 02/02/23 01/01/25 History atorvastatin 40 mg tablet 40 mg PO QPM 02/02/23 01/01/25 History cetirizine 10 mg tablet 10 mg PO DAILY 02/02/23 01/01/25 History docusate sodium 100 mg capsule 200 mg PO BID 02/02/23 01/01/25 History (Col-Rite) furosemide 40 mg tablet 40 mg PO DAILY 02/02/23 01/01/25 History glimepiride 4 mg tablet 4 mg PO DAILY 02/02/23 01/01/25 History metformin 500 mg tablet 500 mg PO BID 02/02/23 01/01/25 History metoprolol tartrate 25 mg tablet 12.5 mg PO BID 02/02/23 01/01/25 History pantoprazole 40 mg tablet,delayed 40 mg PO DAILY 02/02/23 01/01/25 History release potassium chloride 20 mEq 20 meq PO DAILY 02/02/23 01/01/25 History tablet,extended release sennosides 8.6 mg capsule (senna) 8.6 mg PO BID PRN constipation 02/02/23 01/01/25 History vitamins A,C,X-lmcd-rechwf 4,296 1 cap PO DAILY 02/03/23 01/01/25 History mcg-226 mg-90 mg capsule (PreserVision AREDS) calcium 600 mg capsule 1,200 mg PO DAILY 07/07/24 01/01/25 History cholecalciferol (vitamin D3) 50 50 mcg PO DAILY 07/07/24 01/01/25 History mcg (2,000 unit) capsule (Vitamin D3) mupirocin 2 % topical ointment 1 applic topical BID 07/07/24 01/01/25 History sitagliptin phosphate 100 mg 100 mg PO DAILY 12/19/24 01/01/25 History tablet (Januvia) Allergies Allergy/AdvReac Type Severity Reaction Status Date / Time No Known Drug Allergies Allergy Verified 07/14/24 13:45 Exam Narrative: Exam Narrative: Derm: Toenails 1 through 10 are thickened, elongated, and mycotic.? Hallux toeails are markedly thickened. No evidence of paronychia.? Skin is diffusely dry, thin, and atrophic.? Vascular: DP and PT pulses are palpable bilaterally.? Capillary refill is less than 3 seconds to all toes. Digital hair is absent bilaterally. Feet are cool to the touch bilaterally. Neuro: Vibratory sensation is present bilaterally.? Achilles deep tendon reflex is absent bilaterally.? Protective sensation was tested with a monofilament and is present in 3/5 areas tested on the right and 5/5 areas tested on the left.? Musculoskeletal: No gross deformity.? Strength 5/5 in all planes bilaterally Assessment and Plan Assessment and Plan (1) Tinea unguium: (2) Onychogryphosis: (3) Nail dystrophy: (4) Type 2 diabetes mellitus with other diabetic ophthalmic complication: (5) Unsteady gait when walking: (6) Coronary artery disease: Plan Routine nail care performed. Follow-up in 3 months. Acute Procedures Podiatry Nail Debridement Class B Findings Advanced trophic changes as evidenced by any three of the following: decreased hair growth, nail changes (thickening) and skin texture (thin or shiny) Class C Findings Claudication: No Temperature changes: Yes Edema: Yes Nail debridement paresthesia (abnormal spontaneous sensations in the feet): Yes Burning: No Qualifies If: Qualifiers If:: A patient qualifies for nail debridement if they have: 1 class A finding (Q7) 2 class B findings (Q8) OR 1 class B & 2 class C findings in addition to a primary condition (Q9) Nail Procedure Nail Procedure Time out: Yes Nail procedure: other (Sharp debridement of toenails 1 through 10) Number of affected nails: 10 Location (toes): left and right Procedure successful: Yes Patient tolerated procedure: well and no complications Additional comments: Toenail 1 through 10 were sharply debrided without incident with nail nippers. Hallux nails were debulked using a dremel file.
== END 2025-04-14 09:22 | disposition home or self-care (01) ==
LOC: WC 09:21
PROVIDERS: PCP Family Medicine; Visit Provider Physician Assistant
DX: B35.1 Tinea unguium (principal); L60.2 Onychogryphosis; L60.3 Nail dystrophy; E11.39 Type 2 diabetes mellitus with other diabetic ophthalmic complication; R26.81 Unsteadiness on feet; I25.10 Atherosclerotic heart disease of native coronary artery without angina pectoris
CPT/HCPCS: 11721

== ENCOUNTER 2025-07-01 14:02 | Outpatient (OUT) | payer MEDICARE, OTHER, SELFPAY ==
--- OUTSIDE RECORDS SUMMARY | 2025-06-23 13:30 | XMS_ITS | Encounter Summary ---
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) Social History Tobacco UseTypesPacks/DayYears UsedDateSmoking Tobacco: FormerCigarettes Smokeless Tobacco: NeverAlcohol UseStandard Drinks/WeekCommentsNot Currently0 (1 standard drink = 0.6 oz pure alcohol)Sex and Gender InformationValueDate RecordedSex Assigned at BirthNot on fileLegal AqlOgfh7212/10/2024 11:56 AM EDT Gender IdentityNot on fileSexual OrientationNot on filedocumented as of this encounter Last Filed Vital Signs Vital SignReadingTime TakenCommentsBlood Mqhxlcfx85/6010 2:23 PM EDT Nrasx8862 2:23 PM EDTTemperature--Respiratory Rate--Oxygen Saturation-- Inhaled Oxygen Concentration--Odbfet33.2 kg (190 lb)06/23/2025 2:23 PM EDTHeight 180.3 cm (5' 11 )06/23/2025 2:23 PM EDTBody Mass Index26.510 2:23 PM EDT documented in this encounter Progress Notes * Shirley Jaramillo MD - 06/23/2025 2:30 PM EDT Images from the original note were not included. Subjective Patient ID: Chad Mckeon is a 84 y.o. male who presents for Throat Problem (1 mo follow up) Family History[1] Active Ambulatory Problems Diagnosis Date Noted Acute blood loss as cause of postoperative anemia 01/21/2023 Acute respiratory insufficiency 01/16/2023 Angina pectoris, unstable (HCC) 01/09/2023 Atelectasis 01/21/2023 Chronic obstructive pulmonary disease (HCC) 01/09/2023 Coronary artery disease of resighini artery of resighini heart with stable angina pectoris 01/09/2023 Essential hypertension 01/09/2023 Hyperlipidemia 01/09/2023 Hypomagnesemia 01/16/2023 Obesity 01/11/2023 Pleural effusion 01/17/2023 Postoperative atrial fibrillation ([facility]) 01/21/2023 Pure hyperglyceridemia 01/09/2023 Type 2 diabetes mellitus without complications ([facility]) 01/09/2023 Unspecified macular degeneration 01/09/2023 Acute bronchitis 05/18/2025 Atherosclerosis of coronary artery without angina pectoris 05/18/2025 Carpal tunnel syndrome 05/18/2025 Cellulitis 05/18/2025 Chest wall pain 05/18/2025 Constipation 05/18/2025 COVID-19 05/18/2025 Diaphoresis 05/18/2025 Disorder of vocal cord 05/18/2025 Epistaxis 05/18/2025 Gastroesophageal reflux disease 05/18/2025 Head and neck cancer (HCC) 02/01/2025 Insomnia 05/18/2025 Pain in joint involving ankle and foot 05/18/2025 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 Onychomycosis 05/18/2025 Other assisted (current) drug therapy 05/18/2025 Overweight 05/18/2025 Peripheral venous insufficiency 05/18/2025 Primary localized osteoarthrosis of ankle and foot 05/18/2025 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 male. Procedures A diagnostic flexible fiberoptic laryngoscopy was performed. The flexible fiberoptic laryngoscope was placed into the nose and advanced to the level of the tip of the epiglottis. Examination of the larynx including both surfaces of the epiglottis false and true vocal folds, arytenoids and surrounding mucosal surfaces show no evidence of lesion, ulceration or mass. Normal bilateral true vocal foldmotion is present. Bilateral piriform sinuses and base of tongue appear without lesion Assessment/Plan Diagnoses and all orders for this visit: Cancer of true vocal cord (HCC) ALEK today. Exam improved. Continue monthly scopes [1] No family history on file. [2] Past Surgical History: Procedure Laterality Date CARDIAC SURGERY open heart December [address] Jaramillo [3] No Known Allergies [4] Current Outpatient Medications on File Prior to Visit Medication Sig Dispense Refill amiodarone (Pacerone) 200 MG tablet Take by mouth Daily aspirin 81 MG EC tablet Take 81 mg by mouth in the morning. calcium 200 MG tablet Take 600 mg [...] the morning and 500 mg in the evening.Take with meals. mupirocin (Bactroban) 2 % ointment Apply topically [...] tablet Take 1 tablet by mouth Daily atorvastatin (Lipitor) 40 MG tablet Take 40 mg by mouth at bedtime metoprolol tartrate (Lopressor) 25 MG tablet Take 12.5 mg by mouth in the morning and 12.5 mg in the evening. No current facility-administered medications on file prior to visit. documented in this encounter Plan of Treatment DateTypeDepartmentCare Team (Latest Contact Info)Zuxsnraausq92/25/2025 2:30 PM ESTOffice Visit [facility] [place] [facility] [address] [facility] [address] [place] [address] Shirley Jaramillo MD [address] [place] [address] 08/18/2025 2:30 PM ESTOffice Visit [facility] [place] [facility] [address] [place] [address] Shirley Jaramillo MD [address] [place] [address] 09/23/2025 2:30 PM ESTOffice Visit [facility] [place] [facility] [address] [place] [address] Shirley Jaramillo MD [address] [place] [address] 10/21/2025 2:30 PM ESTOffice Visit [facility] [place] [facility] [address] [place] [address] Shirley Jaramillo MD [address] [place] [address] 11/18/2025 2:30 PM EDTOffice Visit [facility] [place] [facility] [address] [facility] [address] [place] [address] Shirley Jaramillo MD [address] [facility] [address] [place] [address] documented as of this encounter Visit Diagnoses Diagnosis 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
--- OUTSIDE RECORDS SUMMARY | 2025-07-01 14:04 | XMS_ITS | Clinical Summary ---
Author Organization [facility] Address [address] [facility] [place] [address] Care Team Providers Care Research Center Partner Name Role Phone Beka Blackman MD Primary Care Provider Allergies No known active allergies Medications MedicationSigDispense QuantityRefillsLast FilledStart DateEnd DateStatus cetirizine (ZyrTEC) 10 mg tablet Take 10 mg by mouth in the morning.Active glimepiride (Amaryl) 4 mg tablet Take 4 mg by mouth before breakfast.Active metFORMIN (Glucophage) 500 mg tablet Take 500 mg by mouth with breakfast and with evening meal.Active potassium chloride CR (Klor-Con M20) 20 mEq ER tablet Take 20 mEq by mouth in the morning.03/14/2023ctive pantoprazole (ProtoNix) 40 mg EC tablet Take 40 mg by mouth in the morning.03/14/2023ctive magnesium oxide (Mag-Ox) 400 mg (241.3 mg magnesium) tablet Take 1 tablet by mouth if needed in the morning and at bedtime.03/14/2023ctive aspirin 81 mg EC tablet Take 81 mg by mouth in the morning.Active metoprolol tartrate (Lopressor) 25 mg tablet Indications:S/P CABG (coronary artery bypass graft)Take 0.5 tablets (12.5 mg) by mouth two times daily. 90 tablet ctive atorvastatin (Lipitor) 40 mg tablet Indications:S/P CABG (coronary artery bypass graft)Take 1 tablet (40 mg) by mouth at bedtime. 90 tablet ctive Active Problems ProblemNoted DateDiagnosed DatePostoperative atrial lutxikmqimsv75/28/2023 Uiwnocfqasi71/28/2023cute blood loss as cause of postoperative jdvcyi0801/21/2023 Pleural xveunpvk46/24/9790Pgmtipcijhxzfc40/23/2023cute respiratory yymsvqtptanjv26/23/4622Oxpqljf88/18/2023ngina pectoris, wgunkacl12/16/2023 Overview (01/09/2023): Added automatically from request for surgery [id number] Chronic obstructive pulmonary rpjtypa3601/09/2023Essential plopywdzmtjr56/16/2023 Assessment & Plan (05/16/2024 1:18 PM EDT): Hypertension is well controlled Continue metoprolol Renal function normal Buyeqdmszbbqug06/16/2023 Assessment & Plan (05/16/2024 1:19 PM EDT): Lipid abnormalities are well controlled, liver function normal Continue lipitor Type 2 diabetes mellitus without nyotjdlenrfs45/16/2023Unspecified macular whgfsqibzhvj94/16/2023ure ahlqetrjtgggtsgzr25/16/2023oronary artery disease of algaaciq artery of algaaciq heart with stable angina uygelbkd86/16/2023 Overview (01/10/2023): Added automatically from request for surgery [id number] Assessment & Plan (05/16/2024 1:39 PM EDT): Coronary artery disease is unchanged. Continue GDMT- ASA, plavix, metoprolol, lipitor Continue heart healthy diet and regular exercise Continue current treatment regimen. Continue current medications. Cardiac status will be reassessed in 6 months. Family History Medical HistoryRelationNameCommentsNo Known ProblemsMotherRelationNameStatus CommentsMother Social History Tobacco UseTypesPacks/DayYears UsedDateSmoking Tobacco: FormerCigarettes Smokeless Tobacco: Never Tobacco Cessation:Counseling Given: Not Answered Comments:Pt has already quit smoking. Since 2006 Humiliation, Afraid, Rape, and Kick questionnaireAnswerDate RecordedWithin the last year, have you been afraid of your partner or ex-partner?No01/10/2023 Emotionally AbusedNot on file01/10/2023hysically AbusedNot on file01/10/2023 Sexually AbusedNot on file01/10/2023Overall Financial Resource Strain (CARDIA) AnswerDate RecordedHow hard is it for you to pay for the very basics like food, housing, medical care, and heating?Not very hard01/10/2023HQ-2AnswerDate RecordedPatient Health Questionnaire-2 [id number] Safety & Environment AnswerDate RecordedFear of Current or Ex-PartnerNot on file01/16/2024Emotionally AbusedNot on file01/16/2024hysically AbusedNot on file01/16/2024Sexually Abused Not on file01/16/2024hysically or Sexually AbusedNot on file01/16/2024 TransportationAnswerDate RecordedIn the past 12 months, has lack of transportation kept you from medical appointments or from getting medications?No 01/10/2023Lack of Transportation (Non-Medical)Not on file01/10/2023Housing Stability Vital SignAnswerDate RecordedUnable to Pay for Housing in the Last YearNot on file01/10/2023Number of Places Lived in the Last YearNot on file 01/10/2023In the last 12 months, was there a time when you did not have a steady place to sleep or slept in ashelter (including now)?No01/10/2023Hunger Vital SignAnswerDate RecordedWithin the past 12 months, you worried that your food would run out before you got the money to buymore.Never true01/10/2023Ran Out of Food in the Last YearNot on file01/10/2023Sex and Gender InformationValueDate RecordedSex Assigned at IymnrOulv81/17/2023 8:18 AM EDTLegal AhcEmgx8901/09/2023 7:44 AM EDTGender FsiyyxsmXtvx38/17/2023 8:18 AM EDTSexual OrientationChoose not to ptoxyzum38/17/2023 8:18 AM EDT Last Filed Vital Signs Vital SignReadingTime TakenCommentsBlood Mwtytppf360/8003/02/2025 2:08 PM EST Fndfl5436/02/2025 2:08 PM PNAErytdprkalt64.6 ??C (97.9 ??F)02/15/2023 2:06 PM EDTRespiratory Rwge032902/15/2023 2:06 PM EDTOxygen Agbsnuxpsn67%10/31/2024 2:08 PM ESTInhaled Oxygen Concentration--Ltdznz62.4 kg (206 lb)10/31/2024 2:08 PM EST Sjgyey748.3 cm (5' 9 )10/31/2024 2:08 PM ESTBody Mass Index30.42010/31/2024 2:08 PM EST Plan of Treatment Health MaintenanceDue DateLast DoneCommentsMedicare Annual Wellness (AWV) 1Diabetes: Retinopathy Gwvevhjlv69/22/1951Depression Screening 3Diabetes: Urine Protein Oswzcfguf11/22/1960Adult Fferqkh7808/17/1963 Zoster Vaccines (1 of 2)1991Fall Risk Gwheftlgt32/22/2006Pneumococcal Vaccine: 50+ Years (2 of 2 - PPSV23, PCV20, or PCV21) Diabetes: Hemoglobin A1C/3COVID-19 Vaccine ( season)/03/2024, 07/12/2023, 07/14/2022, Additional history exists Influenza Vaccine (#1)/, 05/28/2022, 07/07/2020, Additional history existsHIB VaccinesAged OutNo longer eligible based on patient's age to complete this topicHPV VaccinesAged OutNo longer eligible based on patient's age to complete this topicIPV VaccinesAged OutNo longer eligible based on patient's age to complete this topicMeningococcal B VaccineAged OutNo longer eligible based on patient's age to complete this topicMeningococcal VaccineAged OutNo longer eligible based on patient's age to complete this topicRotavirus Vaccines Aged OutNo longer eligible based on patient's age to complete this topic Procedures Procedure NamePriorityDate/TimeAssociated DiagnosisCommentsHEMOGLOBIN D5VZhcdgpd 01/09/2023 7:54 PM EDT from Last 3 Months or Most Recently Relevant to Health Maintenance Results * (ABNORMAL) Hemoglobin A1c (01/09/2023 7:54 PM EDT)ComponentValueRef RangeTest MethodAnalysis TimePerformed AtPathologist SignatureHemoglobin A1C6.8(H)4.0 - 6.0 %01/10/2023 10:01 AM [facility] ([facility])Estimated Average Qkqqaup514wu/dL01/10/2023 10:01 AM [facility] ([facility])Specimen (Source)Anatomical Location / LateralityCollection Method / VolumeCollection TimeReceived TimeBloodVenous blood specimen / UnknownVenipuncture / Unknown 01/09/2023 7:54 PM EDT01/09/2023 8:25 PM EDT Narrative Authorizing ProviderResult TypeResult StatusNita QUICK BLOOD ORDERABLESFinal ResultPerforming OrganizationAddressCity/State/ZIP CodePhone Number [facility] [address] [place], [place] [id number] from Last 3 Months or Most Recently Relevant to [place] [address] [place] [address] Advance Directives * Full Code (Latest Code Status on File) Date ActivatedDate InactivatedComments01/09/2023 3:56 PM01/23/2023 4:30 PM Care Teams Team MemberRelationshipSpecialtyStart DateEnd Date Beka Blackman MD [address] [facility] [address] [address] [facility]01/10/23
--- OUTSIDE RECORDS SUMMARY | 2025-07-01 14:04 | XMS_ITS | Encounter Summary ---
Author Organization [facility] Address [address] [place] [address] Care Team Providers Care Redipper Name Role Phone Beka Blackman MD Primary Care Provider [phone] Encounter Details DateTypeDepartmentCare Team (Latest Contact Info)Blxdhprflwr63/28/2025Travel Social History Tobacco UseTypesPacks/DayYears UsedDateSmoking Tobacco: FormerCigarettes Smokeless Tobacco: NeverAlcohol UseStandard Drinks/WeekCommentsNot Currently0 (1 standard drink = 0.6 oz pure alcohol)Sex and Gender InformationValueDate RecordedSex Assigned at BirthNot on fileLegal PixPljg4912/10/2024 11:56 AM EDT Gender IdentityNot on fileSexual OrientationNot on filedocumented as of this encounter Plan of Treatment DateTypeDepartmentCare Team (Latest Contact Info)Glvmlyopbmr01/25/2025 2:30 PM ESTOffice Visit [facility] [place] [facility] [address] [place] [address] Shirley Jaramillo MD [address] [place] [address] 08/18/2025 2:30 PM ESTOffice Visit [facility] [place] [facility] [address] [place] [address] Shirley Jaramillo MD [address] [place] [address] 09/23/2025 2:30 PM ESTOffice Visit [facility] [place] [facility] [address] [place] [address] Shirley Jaramillo MD [address] [place] [address] 10/21/2025 2:30 PM ESTOffice Visit [facility] [place] [facility] [address] [place] [address] Shirley Jaramillo MD [address] [place] [address] 11/18/2025 2:30 PM EDTOffice Visit [facility] [place] [facility] [address] [facility] [address] [place] [address] Shirley Jaramillo MD [address] [facility] [address] [place] [address] documented as of this encounter Visit Diagnoses Not on filedocumented in this encounter Care Teams Team MemberRelationshipSpecialtyStart DateEnd Date Beka Blackman MD [address] [place] [address] PCP - GeneralFamily Medicine01/02/25documented as of this encounter
--- OUTSIDE RECORDS SUMMARY | 2025-07-01 14:04 | XMS_ITS | Encounter Summary ---
Author Organization [facility] Address [address] [place] [address] Care Team Providers Care Set Up Operator Name Role Phone Beka Blackman MD Primary Care Provider [phone] Encounter Details DateTypeDepartmentCare Team (Latest Contact Info)Byuanaukybo35/28/2025amboo flowsheet [facility] [place] [facility] [address] [place] [address] Shirley Jaramillo MD [address] [place] [address] Social History Tobacco UseTypesPacks/DayYears UsedDateSmoking Tobacco: FormerCigarettes Smokeless Tobacco: NeverAlcohol UseStandard Drinks/WeekCommentsNot Currently0 (1 standard drink = 0.6 oz pure alcohol)Sex and Gender InformationValueDate RecordedSex Assigned at BirthNot on fileLegal SqgZcgi1712/10/2024 11:56 AM EDT Gender IdentityNot on fileSexual OrientationNot on filedocumented as of this encounter Plan of Treatment DateTypeDepartmentCare Team (Latest Contact Info)Hrhpxqluyax13/25/2025 2:30 PM ESTOffice Visit [facility] [place] [facility] [address] [place] [phone] Shirley Jaramillo MD [address] [place] [address] 08/18/2025 2:30 PM ESTOffice Visit [facility] [place] [facility] [address] [place] [address] Shirley Jaramillo MD [address] [place] [address] 09/23/2025 2:30 PM ESTOffice Visit [facility] [place] [facility] [address] [place] [address] Shirley Jaramillo MD [address] [place] [address] 10/21/2025 2:30 PM ESTOffice Visit [facility] [place] [facility] [address] [place] [address] Shirley Jaramillo MD [address] [place] [address] 11/18/2025 2:30 PM EDTOffice Visit [facility] [place] [facility] [address] [place] [address] Shirley Jaramillo MD [address] [place] [address] documented as of this encounter Visit Diagnoses Not on filedocumented in this encounter Care Teams Team MemberRelationshipSpecialtyStart DateEnd Date Beka Blackman MD [address] [place] [address] PCP - GeneralFamily Medicine01/02/25documented as of this encounter
--- OUTSIDE RECORDS SUMMARY | 2025-07-01 14:04 | XMS_ITS | Clinical Summary ---
Author Organization [facility] Healthcare Address [address] [place] [address] Care Team Providers Care Timber Hewer Name Role Phone Beka Blackman MD Primary Care Provider [phone] Allergies No known active allergies Medications MedicationSigDispense QuantityRefillsLast FilledStart DateEnd DateStatus aspirin 81 MG EC tablet Take 81 mg by mouth in the morning.Active atorvastatin (Lipitor) 40 MG tablet Take 40 mg by mouth at zjldued1905/16/2024ctive cetirizine (ZyrTEC) 10 MG tablet Take 10 mg by mouth in the morning.Active glimepiride (Amaryl) 4 MG tablet Take 4 mg by mouth in the morning. Take before meals.Active metFORMIN (Glucophage) 500 MG tablet Take 500 mg by mouth in the morning and 500 mg in the evening. Take with meals. Active metoprolol tartrate (Lopressor) 25 MG tablet Take 12.5 mg by mouth in the morning and 12.5 mg in the evening.05/16/2024ctive amiodarone (Pacerone) 200 MG tablet Take by mouth DailyActive calcium 200 MG tablet Take 600 mg by mouthActive docusate sodium (Colace) 50 MG capsule Take 50 mg by mouth in the morning and 50 mg before bedtime.Active furosemide (Lasix) 40 MG tablet Take 40 mg by mouthActive pantoprazole (ProtoNix) 40 MG EC tablet Take 40 mg by mouth in the morning. Take before meals. Do not crush, chew, or split.Active mupirocin (Bactroban) 2 % ointment Apply topically in the morning and in the evening and before bedtime.Active potassium chloride CR (Klor-Con M20) 20 MEQ ER tablet Take 20 mEq by mouth Daily Do not crush or chew.Active sennosides (Senokot) 8.6 MG tablet Take 1 tablet by mouth DailyActive Cholecalciferol (Vitamin D) 10 MCG/ML liquid Take by mouthActive Januvia 100 MG tablet 1 (one) time each day at the same time12/16/2024tive Active Problems ProblemNoted DateDiagnosed DateAcute vsprlpfixt27/22/2025therosclerosis of coronary artery without angina lthrzlyb15/22/2025arpal tunnel syndrome 05/18/20259047Wacjdkxjqq54/22/2025hest wall pain05/18/20258342Tluvmdojvjqz90/22/2025 COVID-19005/18/20250573Vjrwxvvguyt88/22/2025Disorder of vocal cord05/18/2025Epistaxis 05/18/2025Gastroesophageal reflux kwtmogt5305/18/20256208Jugbridg21/22/2025Pain in joint involving ankle and foot05/18/20251778Eoykbbcmhlkyh88/22/2025Other medical terminologist (current) drug mlscooy3005/18/20256957Legrekasni06/22/2025Peripheral venous bnoaedtkhegpi86/22/2025Primary localized osteoarthrosis of ankle and foot 05/18/2025Head and neck qkicec8002/01/2025Malignant neoplasm of left vocal cord 02/01/2025ute blood loss as cause of postoperative ilvbam7401/21/2023telectasis 01/21/2023ostoperative atrial ijtqeiefvojl63/28/2023leural kejkivla62/24/2023 Acute respiratory vuotqvqzphzbp26/23/2805Ctxuphqvnzbadc89/23/2023Obesity 01/11/2023ngina pectoris, bfyhyfht60/16/2023 Overview (12/15/2024): Added automatically from request for surgery [id number] Chronic obstructive pulmonary elclwri3601/09/2023oronary artery disease of [place] artery of [place] heart with stable angina jtjzybsw09/16/2023 Overview (12/15/2024): Added automatically from request for surgery [id number] Essential gcgrmnvxdema15/16/9985Rqpfygfgatsspa99/16/2023ure hyperglyceridemia 01/09/2023Type 2 diabetes mellitus without vugydihuubyiw97/16/2023Unspecified macular ukbpuzifbwls40/16/2023Exudative age-related macular degeneration of left eye06/21/2021 Encounters DateTypeDepartmentCare XcduWreaotrikcu62/28/2025 2:30 PM EDTOffice Visit [facility] [place] [facility] [address] [place] [address] Shirley Jaramillo MD 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)06/23/2025amboo flowsheet [facility] [place] [facility] [address] [place] [address] Shirley Jaramillo MD 06/23/20252891Nsrdnt36/24/2025 2:20 PM EDTOffice Visit [facility] [place] [facility] [address] [place] [address] Shirley Jaramillo MD 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)05/20/2025amboo flowsheet [facility] [place] [facility] [address] [place] [address] Shirley Jaramillo MD 05/20/2025Travelfrom Last 3 Months Immunizations ImmunizationAdministration DatesNext DueInfluenza Whole07/01/2013Influenza, High Dose Seasonal, Preservative Free05/28/2022,05/22/2017Influenza, Seasonal, Quadrivalent, Wjlrkupuog86/01/2023,08/09/2022Influenza, injectable, quadrivalent 06/29/2016Influenza, seasonal, faawehwrje66/23/2015Influenza, trivalent, ejwgaputxr59/06/2024,07/07/2020Pneumococcal Conjugate PCV 13005/22/20173108SZTU-KED-7 (COVID-19) vaccine, mRNA, spike protein, LNP, preservative free, 25 mcg/0.25 mL dose QHQ8574609/03/2023Unknown outside gvqqmruksezh99/09/2021 Family History RelationNameStatusCommentsFatherDeceasedMotherDeceased Social History Tobacco UseTypesPacks/DayYears UsedDateSmoking Tobacco: FormerCigarettes Smokeless Tobacco: Never Tobacco Cessation:Counseling Given: Not Answered Alcohol UseStandard Drinks/WeekCommentsNot Currently0 (1 standard drink = 0.6 oz pure alcohol)Sex and Gender InformationValueDate RecordedSex Assigned at Not on fileLegal FaaPhfm8812/10/2024 11:56 AM EDTGender IdentityNot on fileSexual OrientationNot on file Last Filed Vital Signs Vital SignReadingTime TakenCommentsBlood Pdsuaqjx13/6006/23/2025 2:23 PM EDT Ubpqe527606/23/2025 2:23 PM EDTTemperature--Respiratory Rate--Oxygen Saturation-- Inhaled Oxygen Concentration--Cvcews92.2 kg (190 lb)06/23/2025 2:23 PM EDTHeight 180.3 cm (5' 11 )06/23/2025 2:23 PM EDTBody Mass Index26.510 2:23 PM EDT Plan of Treatment DateTypeDepartmentCare Team (Latest Contact Info)Ndorzdngzpi98/25/2025 2:30 PM ESTOffice Visit [facility] [place] [facility] [address] [facility] [address] [place] [address] Shirley Jaramillo MD [address] [place] [address] 08/18/2025 2:30 PM ESTOffice Visit [facility] [place] [facility] [address] [facility] [address] [place] [address] Shirley Jaramillo MD [address] [place] [address] 09/23/2025 2:30 PM ESTOffice Visit [facility] [place] [facility] [address] [place] [address] Shirley Jaramillo MD [address] [place] [address] 10/21/2025 2:30 PM ESTOffice Visit [facility] [place] [facility] [address] [facility] [address] [place] [phone] Shirley Jaramillo MD [address] [place] [address] 11/18/2025 2:30 PM EDTOffice Visit [facility] [place] [facility] [address] [facility] [address] [place] [phone] Shirley Jaramillo MD [address] [place] [address] Health MaintenanceDue DateLast DoneCommentsDTaP/Tdap/Td Vaccines (1 - Tdap) 1947Pneumococcal Vaccine: 65+ Years (2 of 2 - PCV20 or PCV21)05/22/2018 05/22/2017COVID-19 Vaccine ( season)511/03/2024, 07/12/2023, 06/01/2021, Additional history existsInfluenza Vaccine (#1)511/01/2024, 06/27/2023, 08/09/2022, Additional history existsHIB VaccinesAged OutNo longer eligible based on patient's age to complete this topicHPV VaccinesAged OutNo longer eligible based on patient's age to complete this topicHepatitis A VaccinesAged OutNo longer eligible based on patient's age to complete this topic Hepatitis B VaccinesAged OutNo longer eligible based on patient's age to complete this topicIPV VaccinesAged OutNo longer eligible based on patient's age to complete this topicMeningococcal B VaccineAged OutNo longer eligible based on patient's age to complete this topicMeningococcal VaccineAged OutNo longer eligible based on patient's age to complete this topicRotavirus VaccinesAged Out No longer eligible based on patient's age to complete this topic Insurance * Guarantor: Chad MckeonAccount TypeRelation to PatientDate of BirthPhone Billing AddressPersonal/XgtelxTudr1940 [address] [address] [place] [address] Care Teams Team MemberRelationshipSpecialtyStart DateEnd Beka Blackman MD [address] [place] [phone] PCP - GeneralFamily Medicine01/02/25
--- OUTSIDE RECORDS SUMMARY | 2025-07-01 14:04 | XMS_ITS | Clinical Summary ---
Author Organization [facility] Address [address] [place] [address] Phone Care Team Providers Care Concrete Handler Name Role Phone Unavailable Primary Care Provider Unavailabl e Social History Tobacco UseTypesPacks/DayYears UsedDateSmoking Tobacco: Never AssessedSex and Gender InformationValueDate RecordedSex Assigned at BirthNot on fileLegal Sex Male02/13/2025 8:51 AM EDTGender IdentityNot on fileSexual OrientationNot on file Plan of Treatment Health MaintenanceDue DateLast DoneCommentsLipid Panel1941Yearly Adult Tqfwmdxv1941DTaP/Tdap/Td Vaccines (1 - Tdap)1963Pneumococcal Vaccine (1 of 1 - PCV)1991Zoster Vaccines (1 of 2)1991RSV High Risk: (Elderly (60+) or Population) (1 - 1-dose 75+ series)2016 Influenza Vaccine (#1)5COVID-19 Vaccine (1 - 2024-26 season)2025 HIB VaccinesAged OutNo longer eligible based on patient's age to complete this topicHPV VaccinesAged OutNo longer eligible based on patient's age to complete this topicHepatitis A VaccinesAged OutNo longer eligible based on patient's age to complete this topicHepatitis B VaccinesAged OutNo longer eligible based on patient's age to complete this topicIPV VaccinesAged OutNo longer eligible based on patient's age to complete this topicMeningococcal VaccineAged OutNo longer eligible based on patient's age to complete this topicRotavirus VaccinesAged Out No longer eligible based on patient's age to complete this topic Insurance
--- OUTSIDE RECORDS SUMMARY | 2025-07-01 14:08 | XMS_ITS | CCD ---
Author Organization [facility] CliniSynv Care Team Providers Care No Bake Molder Name Role Phone ANN ., DR LAMBERT Admitting Unavailable ANN ., DR LAMBERT Attending Unavailable FRACISCOY ., DR LAMBERT Consulting Unavailable FRACISCOY ., DR LAMBERT Primary Care Unavailable MOUKASAW, DR FARMER Consulting Unavailable DARREN ., KELVIN Consulting Unavailable TIFFANY TORO Consulting Unavailable ANN ., DR LAMBERT Admitting Unavailable HOY ., DR LAMBERT Attending Unavailable HOY ., DR LAMBERT Consulting Unavailable FRACISCOY ., DR LAMBERT Primary Care Unavailable KEENAN SHANKAR Attending Unavailable DARIAN LAZCANO Attending Unavailable Fausto Juarez MD Primary Care Provider [phone] Fausto Juarez MD Primary Care Provider [phone] Austin Jarquin MD Attending Provider Unavailab Fausto Gamboa MD Primary Care Provider [phone] Austin Jarquin MD Unavailable Chandan Burgos MD Unavailable Evy Grant MD Unavailable Ayo TAM, Aleksandra Unavailable CHANDAN BURGOS Referring Unavailable SHIRLEY QIU Attending Unavailable FAUSTO JUAREZ Primary Care Unavailable Austin Jarquin Jr Attending Unavailable Austin Jarquin Jr Admitting Unavailable Fausto Juarez Attending Unavailable Fausto Juarez Primary Care Unavailable Fausto Juarez Admitting Unavailable GONZALO RICKS Admitting Unavailable GONZALO RICKS Attending Unavailable FAUSTO JUAREZ Primary Care Unavailable GONZALO RICKS Attending Unavailable FAUSTO JUAREZ Primary Care Unavailable Fausto Juarez MD Primary Care Provider [phone] TIMMIS, AUSTIN H Attending Unavailable TIMMIS, AUSTIN H Attending Unavailable TIMMIS, AUSTIN H Attending Unavailable TIMMIS, AUSTIN H Attending Unavailable MERLINE FREGOSO Attending Unavailable HOY, FAUSTO M Primary Care Unavailable ABHYANKAR, CHANDAN Referring Unavailable HOY, FAUSTO M Primary Care Unavailable ABHYANKAR, CHANDAN Referring Unavailable HOY, FAUSTO M Primary Care Unavailable HOY, FAUSTO M Primary Care Unavailable DARIAN GRANT Referring Unavailable HOY, FAUSTO M Primary Care Unavailable HOY, FAUSTO M Primary Care Unavailable HOY, FAUSTO M Primary Care Unavailable ABHYANKAR, CHANDAN Referring Unavailable HOY, FAUSTO M Primary Care Unavailable HOY, FAUSTO M Primary Care Unavailable DARIAN GRANT Attending Unavailable DARIAN GRANT Referring Unavailable HOY, FAUSTO M Primary Care Unavailable HOY, FAUSTO M Primary Care Unavailable ABHYANKAR, CHANDAN Referring Unavailable HOY, FAUSTO M Primary Care Unavailable ABHYANKAR, CHANDAN Referring Unavailable MIKAELA FREGOSOE Attending Unavailable HOY, FAUSTO M Primary Care Unavailable ABHYANKAR, CHANDAN Referring Unavailable HOY, FAUSTO M Primary Care Unavailable HOY, FAUSTO M Primary Care Unavailable HOY, FAUSTO M Primary Care Unavailable HOY, FAUSTO M Primary Care Unavailable HOY, FAUSTO M Primary Care Unavailable ABHYANKAR, CHANDAN Referring Unavailable ILDEFONSOMIKAELAE Attending Unavailable HOY, FAUSTO M Primary Care Unavailable ABHYANKAR, CHANDAN Referring Unavailable KASH FREGOSOIMEE Attending Unavailable HOY, FAUSTO M Primary Care Unavailable ABHYANKAR, CHANDAN Referring Unavailable HOY, FAUSTO M Primary Care Unavailable WENDY BEASLEY Attending Unavailable HOY, FAUSTO M Primary Care Unavailable CONORBEKAH Attending Unavailable ABHYANKAR, CHANDAN Referring Unavailable HOY, FAUSTO M Primary Care Unavailable ABHYANKAR, CHANDAN Referring Unavailable HOY, FAUSTO M Primary Care Unavailable DARIAN GRANT Attending Unavailable DARIAN GRANT Referring Unavailable HOY, FAUSTO M Primary Care Unavailable HOY, FAUSTO M Primary Care Unavailable DARIAN GRANT Referring Unavailable DARIAN GRANT Attending Unavailable HOY, FAUSTO M Primary Care Unavailable HOY, FAUSTO M Primary Care Unavailable DARIAN GRANT Attending Unavailable DARIAN GRANT Referring Unavailable HOY, FAUSTO M Primary Care Unavailable HOY, FAUSTO M Primary Care Unavailable ABHYANKAR, CHANDAN Referring Unavailable HOY, FAUSTO M Primary Care Unavailable HOY, FAUSTO M Primary Care Unavailable HOY, FAUSTO M Primary Care Unavailable HOY, FAUSTO M Primary Care Unavailable HOY, FAUSTO M Primary Care Unavailable DARIAN GRANT Attending Unavailable HOY, FAUSTO M Primary Care Unavailable DARIAN GRANT Referring Unavailable DARIAN GRANT Attending Unavailable HOY, FAUSTO M Primary Care Unavailable DARIAN GRANT Attending Unavailable DARIAN GRANT Referring Unavailable HOY, FAUSTO M Primary Care Unavailable ABHYANKAR, CHANDAN Referring Unavailable HOY, FAUSTO M Primary Care Unavailable WENDY BEASLEY Attending Unavailable HOY, FAUSTO M Primary Care Unavailable HOY, FAUSTO M Primary Care Unavailable HOY, FAUSTO M Primary Care Unavailable HOY, FAUSTO M Primary Care Unavailable ABHYANKAR, CHANDAN Referring Unavailable HOY, FAUSTO M Primary Care Unavailable DARIAN GRANT Attending Unavailable HOY, FAUSTO M Primary Care Unavailable AUSTIN JARQUIN Referring Unavaila ble ABHYANKAR, CHANDAN Referring Unavailable HOY, FAUSTO M Primary Care Unavailable BEKAH PERDOMO Attending Unavailable HOY, FAUSTO M Primary Care Unavailable HOY, FAUSTO M Primary Care Unavailable HOY, FAUSTO M Primary Care Unavailable DARIAN GRANT Attending Unavailable HOY, FAUSTO M Primary Care Unavailable HOY, FAUSTO M Primary Care Unavailable HOY, FAUSTO M Primary Care Unavailable HOY, FAUSTO M Primary Care Unavailable HOY, FAUSTO M Primary Care Unavailable HOY, FAUSTO M Primary Care Unavailable HOY, FAUSTO M Primary Care Unavailable ABHYANKAR, CHANDAN Referring Unavailable MERLINE FREGOSO Attending Unavailable HOY, FAUSTO [...] FAUSTO M Primary Care Unavailable ABHYANKAR, CHANDAN Attending Unavailable HOY, FAUSTO M Primary Care Unavailable HOY, FAUSTO M Primary Care Unavailable HOY, FAUSTO M Primary Care Unavailable DARIAN GRANT Referring Unavailable ABHYANKAR, CHANDAN Attending Unavailable HOY, FAUSTO M Primary Care Unavailable HOY, FAUSTO M Primary Care Unavailable HOY, FAUSTO M Primary Care Unavailable DARIAN GRANT Referring Unavailable HOY, FAUSTO M Primary Care Unavailable DARIAN GRANT Referring Unavailable HOY, FAUSTO M Primary Care Unavailable DARIAN GRANT Referring Unavailable DARIAN GRANT Attending Unavailable HOY, FAUSTO M Primary Care Unavailable DARIAN GRANT Referring Unavailable HOY, FAUSTO M Primary Care Unavailable DARIAN GRANT Referring Unavailable DARIAN GRANT Attending Unavailable HOY, FAUSTO M Primary Care Unavailable DARIAN GRANT Referring Unavailable HOY, FAUSTO M Primary Care Unavailable DARIAN GRANT Attending Unavailable HOY, FAUSTO M Primary Care Unavailable HOY, FAUSTO M Primary Care Unavailable ABHYANKAR, CHANDAN Referring Unavailable ABHYANKAR, CHANDAN Referring Unavailable HOY, FAUSTO M Primary Care Unavailable HOY, FAUSTO M Primary Care Unavailable ABHYANKAR, CHANDAN Referring Unavailable HOY, FAUSTO M Primary Care Unavailable HOY, FAUSTO M Primary Care Unavailable DARIAN GRANT Referring Unavailable DARIAN GRANT Attending Unavailable HOY, FAUSTO M Primary Care Unavailable DARIAN GRANT Attending Unavailable HOY, FAUSTO M Primary Care Unavailable HOY, FAUSTO M Primary Care Unavailable HOY, FAUSTO M Primary Care Unavailable DARIAN GRANT Attending Unavailable HOY, FAUSTO M Primary Care Unavailable HOY, FAUSTO M Primary Care Unavailable ABHYANKAR, CHANDAN Referring Unavailable HOY, FAUSTO M Primary Care Unavailable BEKAH PERDOMO Attending Unavailable ABHYANKAR, CHANDAN Referring Unavailable HOY, FAUSTO M Primary Care Unavailable DARIAN GRANT Attending Unavailable DARIAN GRANT Referring Unavailable HOY, FAUSTO M Primary Care Unavailable DARIAN GRANT Attending Unavailable DARIAN GRANT Referring Unavailable Medications Current Medications MedicationDrug Class(es)DatesSig (Normalized)Sig (Original)amiodarone hydrochloride 200 mg oral tablet (15 sources)Antiarrhythmicamiodarone (Pacerone) 200 MG tablet Take by mouth Daily Activeaspirin 81 mg delayed release oral tablet (20 sources)Platelet Aggregation Inhibitor, Nonsteroidal Anti-inflammatory Drug take 1 tablet by mouth in the morningaspirin 81 MG EC tablet Take 81 mg by mouth in the morning. Activeatorvastatin 40 mg oral tablet (20 sources)HMG-CoA Reductase InhibitorStart: 05-16-2024 End: 88-89-0417aapi 1 tablet by mouth at bedtimeatorvastatin (Lipitor) 40 MG tablet Take 40 mg by mouth at bedtime 05/16/2024 ActiveCalcium (15 sources)Phosphate Binder, Calciumcalcium 200 MG tablet Take 600 mg by mouth ActiveCalcium Carbonate / vitamin D3 (20 sources)take 2 tablets by mouth once dailycalcium carbonate/vitamin D3 (CALCIUM WITH VITAMIN D3 ORAL) Take 2 tablets by mouth once daily. Activecalcium carbonate/vitamin D3 (CALCIUM WITH VITAMIN D3 ORAL) Take by mouth. Active cetirizine hydrochloride 10 mg oral tablet (20 sources)Histamine-1 Receptor Antagonisttake 1 tablet by mouth in the morning cetirizine (ZyrTEC) 10 MG tablet Take 10 mg by mouth in the morning. Active cholecalciferol 0.01 mg/ml oral solution (15 sources)Vitamin DCholecalciferol (Vitamin D) 10 MCG/ML liquid Take by mouth ActivediphenhydrAMINE 12.5 mg/5 mL lidocaine visc 2% MAALOX 200-200-20 mg/5 mL nystatin prednisoLONE 15 mg/5 mL oral liquid 1:1:1:1:1 (CPD) (3 sources)Start: 21-72-6446yzco 10 mL by mouth every six hours as needed diphenhydrAMINE 12.5 mg/5 mL lidocaine visc 2% MAALOX 200-200-20 mg/5 mL nystatin prednisoLONE 15 mg/5 mL oral liquid 1:1:1:1:1 (CPD) Take 10 mL by mouth every 6 hours as needed. Swish and swallow 300 mL 3 05/04/2025 12:02 PM EDT 05/04/2025 Activedocusate sodium 50 mg oral capsule (15 sources)take 1 capsule by mouth in the morningdocusate sodium (Colace) 50 MG capsule Take 50 mg by mouth in the morning and 50 mg before bedtime.Active glimepiride 4 mg oral tablet (20 sources)Sulfonylureatake 1 tablet by mouth before mealtimeglimepiride (Amaryl) 4 MG tablet Take 4 mg by mouth in the morning. Take before meals. Activemagnesium oxide 400 mg oral tablet (20 sources)Start: 75-64-1135prof 1 tablet by mouth once dailymagnesium oxide (MAG-OX) 400 mg (241.3 mg magnesium) tablet Take 1 tablet by mouth once daily. 03/14/2023 ActiveStart: 90-72-5127muywssdpk oxide (MAG-OX) 400 mg (241.3 mg magnesium) tablet Take 1 tablet by mouth. 03/14/2023 ActivemetFORMIN hydrochloride 500 mg oral tablet (20 sources)Biguanidetake 1 tablet by mouth in the morningmetFORMIN (Glucophage) 500 MG tablet Take 500 mg by mouth in the morning and 500 mg in the evening.Take with meals. Activemetoprolol tartrate 25 mg oral tablet (20 sources)beta-Adrenergic BlockerStart: 05-16-2024 End: 15-69-1808cipwvfndzr tartrate (Lopressor) 25 MG tablet Take 12.5 mg by mouth in the morning and 12.5 mg in the evening. 05/16/2024 Activemupirocin 0.02 mg/mg topical ointment (15 sources)RNA Synthetase Inhibitor Antibacterialmupirocin (Bactroban) 2 % ointment Apply topically in the morning and in the evening and before bedtime. Activenaproxen sodium 220 mg oral tablet (20 sources)Nonsteroidal Anti-inflammatory Drugtake 1 tablet by mouth twice daily at mealtimenaproxen sodium (ALEVE) 220 mg tablet Take 220 mg by mouth two times a day with meals. Activeondansetron 8 mg oral tablet (20 sources)Serotonin-3 Receptor AntagonistStart: 74-03-8756odty 1 tablet by mouth every eight hours as neededondansetron (ZOFRAN) 8 mg tablet Take 1 tablet by mouth every 8 hours as needed for nausea/vomiting. 90 tablet 1 03/11/2025 4:15 PM EDT 03/03/2025 ActiveStart: 02-03-2025 End: 54-14-4584iooh 1 tablet by mouth every eight hours as neededondansetron (ZOFRAN) 8 mg tablet Take 1 tablet by mouth every 8 hours as needed for nausea/vomiting. 90 tablet 1 02/03/2025 02/19/2025 Discontinued (Discontinued by another Health Care Provider)pantoprazole 40 mg delayed release oral tablet (15 sources)Proton Pump Inhibitortake 1 tablet by mouth before mealtime pantoprazole (ProtoNix) 40 MG EC tablet Take 40 mg by mouth in the morning. Take before meals. Do not crush, chew, or split. Activemicroencapsulated potassium chloride 20 meq extended release oral tablet (20 sources)potassium chloride CR (Klor-Con M20) 20 MEQ ER tablet Take 20 mEq by mouth Daily Do not crush or chew. Activeprochlorperazine 10 mg oral tablet (20 sources)PhenothiazineStart: 32-54-8112immb 1 tablet by mouth every six hours as neededprochlorperazine (COMPAZINE) 10 mg tablet Take 1 tablet by mouth every 6 hours as needed. 100 tablet 1 03/11/2025 4:15 PM EDT 03/03/2025 ActiveStart: 02-03-2025 End: 09-87-9675texv 1 tablet by mouth every six hours as neededprochlorperazine (COMPAZINE) 10 mg tablet Take 1 tablet by mouth every 6 hours as needed. 100 tablet 1 02/03/2025 02/19/2025 Discontinued (Discontinued by another Health Care Provider)sennosides, chcf 8.6 mg oral tablet (15 sources)take 1 tablet by mouth once dailysennosides (Senokot) 8.6 MG tablet Take 1 tablet by mouth Daily ActiveSITagliptin 100 mg oral tablet (20 sources)Dipeptidyl Peptidase 4 InhibitorStart: 11-48-5470Wbrmzkq 100 MG tablet 1 (one) time each day at the same time 12/16/2024 Activevit A/vit C/vit E/zinc/copper (PRESERVISION AREDS ORAL) (20 sources)take 2 tablets by mouth once dailyvit A/vit C/vit E/zinc/copper (PRESERVISION AREDS ORAL) Take 2 tablets by mouth once daily. Activevit A/vit C/vit E/zinc/copper (PRESERVISION AREDS ORAL) Take by mouth. Active Completed/Discontinued Medications MedicationDrug Class(es)DatesSig (Normalized)Sig (Original)ciprofloxacin 500 mg oral tablet (4 sources)Quinolone AntimicrobialStart: 04-22-2025 End: 57-77-5996qgtk 1 tablet by mouth twice dailyciprofloxacin HCl (CIPRO) 500 mg tablet Indications: Chemotherapy-induced neutropenia Take 1 tabletby mouth two times a day for 7 days. 14 tablet 04/22/2025 12:58 PM EDT 04/22/2025 04/29/2025 ExpiredCISplatin 83.6 mg in NaCl 0.9% 1,133.6 mL (PLATINOL) (3 sources)Start: 03-25-2025 End: 82-75-951639.6 mg (40 mg/m2 2.09 m2 Treatment Plan BSA from Recorded weight), INTRAVENOUS, Administer over 1 Hours, ONCE, 1 dose, On Sun03/25/25 at 1500, EXP: 1800 03/26/25 Room Temp Hazardous Chemotherapy Drug: Use appropriate PPE. Antineoplastic Vesicant for concentrations greater than 0.4 mg/mL - Antineoplastic Irritant for concentrations less than 0.4 mg/mL. Protect from Light.Start: 03-18-2025 End: 54-32-484955.6 mg (40 mg/m2 2.09 m2 Treatment Plan BSA from Recorded weight), INTRAVENOUS, Administer over 1 Hours, ONCE, 1 dose, On Sun03/18/25 at 1330, EXP: 1100 03/19/25 REFRIGERATE Hazardous Chemotherapy Drug: Use appropriate PPE. Antineoplastic Vesicant for concentrations greater than 0.4 mg/mL - Antineoplastic Irritant for concentrations less than 0.4 mg/mL. Protect from Light.Start: 03-11-2025 End: 07-06-285446.6 mg (40 mg/m2 2.09 m2 Treatment Plan BSA from Recorded weight), INTRAVENOUS, Administer over 1 Hours, ONCE, 1 dose, On Sun03/11/25 at 1330, exp 1745 03/12/25 (room temp) Hazardous Chemotherapy Drug: Use appropriate PPE. Antineoplastic Vesicant for concentrations greater than 0.4 mg/mL - Antineoplastic Irritant for concentrations less than 0.4 mg/mL. Protect from Light.clopidogrel 75 mg oral tablet (18 sources)P2Y12 Platelet InhibitorStart: 10-30-2024 End: 60-79-1789utru 1 tablet by mouth in the morningclopidogrel (PLAVIX) 75 mg tablet take 1 tablet (75 mg) by mouth in the morning. 10/30/2024 02/19/2025 Discontinued (Discontinued by another Health Care Provider)1 ml dexamethasone phosphate 10 mg/ml injection (4 sources)CorticosteroidStart: 04-15-2025 End: mg, INTRAVENOUS, ONCE, 1 dose, On Sun04/15/25 at 1200, Administer IV doses up to 10 mg over 5 minutes. Administer doses > 10 mg over 15 to 30 minutes.Start: 03-25-2025 End: 00-35-753336 mg, INTRAVENOUS, ONCE, 1 dose, On Sun03/25/25 at 1300, Administer IV doses up to 10 mg over 5 minutes. Administer doses > 10 mg over 15 to 30 minutes.Start: 03-18-2025 End: 20-50-156973 mg, INTRAVENOUS, ONCE, 1 dose, On Sun03/18/25 at 1130, Administer IV doses up to 10 mg over 5 minutes. Administer doses > 10 mg over 15 to 30 minutes.Start: 03-11-2025 End: 28-04-143763 mg, INTRAVENOUS, ONCE, 1 dose, On Sun03/11/25 at 1130, Administer IV doses up to 10 mg over 5 minutes. Administer doses > 10 mg over 15 to 30 minutes.fosaprepitant 150 mg in NaCl 0.9% 100 mL (EMEND) (1 source)Start: 03-11-2025 End: 63-91-1162228 mg, INTRAVENOUS, Administer over 30 Minutes, ONCE, 1 dose, On Sun03/11/25 at 1130, Refrigeratefosaprepitant 150 mg in NaCl 0.9% 250 mL (EMEND) (2 sources)Start: 03-25-2025 End: 94-26-3424732 mg, INTRAVENOUS, Administer over 30 Minutes, ONCE, 1 dose, On Sun03/25/25 at 1300, Approximate Total Volume = 280 mL RefrigerateStart: 03-18-2025 End: 56-41-5053425 mg, INTRAVENOUS, Administer over 30 Minutes, ONCE, 1 dose, On Sun03/18/25 at 1130, Approximate Total Volume = 280 mL Refrigerate2 ml furosemide 10 mg/ml injection (18 sources)Loop DiureticStart: 03-25-2025 End: 42-02-259939 mg, INTRAVENOUS, ONCE, 1 dose, On Sun03/25/25 at 1300Start: 03-18-2025 End: 33-54-187788 mg, INTRAVENOUS, ONCE, 1 dose, On Sun03/18/25 at 1130Start: 03-11-2025 End: 33-69-013950 mg, INTRAVENOUS, ONCE, 1 dose, On Sun03/11/25 at 1130 furosemide (Lasix) 40 MG tablet Take 40 mg by mouth Ilivct87 ml magnesium sulfate 40 mg/ml injection (7 sources)Start: 04-22-2025 End: 24-13-8888yroh 2 g intravenously every hour2 g, INTRAVENOUS, at 25-50 mL/hr, Administer over 1-2 Hours, ONCE, 1 dose, On Sun04/22/25 at 1130, M agnesium sulfate iv bolus will be infused at a rate of 1 gram/hr The following nursing units mayadminister 2 g dose over 1 hour if necessary: ICUs/PACU/ED, Adult Hematology/Oncology, Labor and Delivery, Cardiac Stepdown, Headache Clinic If necessary, a magnesium sulfate bolus may be administered greater than 2 g/hr for the following indications: Adult and Pediatric Asthma Exacerbations, Torsade de Pointes, Pediatric BMT and Hematology/Oncology, Eclampsia or PreeclampsiaStart: 04-15-2025 End: 82-30-3564pioe 2 g intravenously every hour2 g, INTRAVENOUS, at 25-50 mL/hr, Administer over 1-2 Hours, ONCE, 1 dose, On Sun04/15/25 at 1200, M agnesium sulfate iv bolus will be infused at a rate of 1 gram/hr The following nursing units mayadminister 2 g dose over 1 hour if necessary: ICUs/PACU/ED, Adult Hematology/Oncology, Labor and Delivery, Cardiac Stepdown, Headache Clinic If necessary, a magnesium sulfate bolus may be administered greater than 2 g/hr for the following indications: Adult and Pediatric Asthma Exacerbations, Torsade de Pointes, Pediatric BMT and Hematology/Oncology, Eclampsia or PreeclampsiaStart: 04-08-2025 End: 98-31-9985ghdk 2 g intravenously every hour2 g, INTRAVENOUS, at 25-50 mL/hr, Administer over 1-2 Hours, ONCE, 1 dose, On Sun04/08/25 at 1130, M agnesium sulfate iv bolus will be infused at a rate of 1 gram/hr The following nursing units mayadminister 2 g dose over 1 hour if necessary: ICUs/PACU/ED, Adult Hematology/Oncology, Labor and Delivery, Cardiac Stepdown, Headache Clinic If necessary, a magnesium sulfate bolus may be administered greater than 2 g/hr for the following indications: Adult and Pediatric Asthma Exacerbations, Torsade de Pointes, Pediatric BMT and Hematology/Oncology, Eclampsia or PreeclampsiaStart: 03-25-2025 End: 31-24-4165yjsr 2 g intravenously every hour2 g, INTRAVENOUS, at 25-50 mL/hr, Administer over 1-2 Hours, ONCE, 1 dose, On Sun03/25/25 at 1300, M agnesium sulfate iv bolus will be infused at a rate of 1 gram/hr The following nursing units mayadminister 2 g dose over 1 hour if necessary: ICUs/PACU/ED, Adult Hematology/Oncology, Labor and Delivery, Cardiac Stepdown, Headache Clinic If necessary, a magnesium sulfate bolus may be administered greater than 2 g/hr for the following indications: Adult and Pediatric Asthma Exacerbations, Torsade de Pointes, Pediatric BMT and Hematology/Oncology, Eclampsia or PreeclampsiaStart: 03-18-2025 End: 34-42-0848zvsh 2 g intravenously every hour2 g, INTRAVENOUS, at 25-50 mL/hr, Administer over 1-2 Hours, ONCE, 1 dose, On Sun03/18/25 at 1130, M agnesium sulfate iv bolus will be infused at a rate of 1 gram/hr The following nursing units mayadminister 2 g dose over 1 hour if necessary: ICUs/PACU/ED, Adult Hematology/Oncology, Labor and Delivery, Cardiac Stepdown, Headache Clinic If necessary, a magnesium sulfate bolus may be administered greater than 2 g/hr for the following indications: Adult and Pediatric Asthma Exacerbations, Torsade de Pointes, Pediatric BMT and Hematology/Oncology, Eclampsia or PreeclampsiaStart: 03-11-2025 End: 82-85-0338vjeu 2 g intravenously every hour2 g, INTRAVENOUS, at 25-50 mL/hr, Administer over 1-2 Hours, ONCE, 1 dose, On Sun03/11/25 at 1200, M agnesium sulfate iv bolus will be infused at a rate of 1 gram/hr The following nursing units mayadminister 2 g dose over 1 hour if necessary: ICUs/PACU/ED, Adult Hematology/Oncology, Labor and Delivery, Cardiac Stepdown, Headache Clinic If necessary, a magnesium sulfate bolus may be administered greater than 2 g/hr for the following indications: Adult and Pediatric Asthma Exacerbations, Torsade de Pointes, Pediatric BMT and Hematology/Oncology, Eclampsia or PreeclampsiaNaCl 0.9% 1,000 mL (3 sources)Start: 03-25-2025 End: 24-45-3106NFAZXAQZPFM, at 999 mL/hr, Administer over 1 Hours, ONCE, 1 dose, On Sun03/25/25 at 1300Start: 03-18-2025 End: 82-38-9784BGMRMZUIKQW, at 999 mL/hr, Administer over 1 Hours, ONCE, 1 dose, On Sun03/18/25 at 1130Start: 03-11-2025 End: 60-35-0173UROYGTJDMDV, at 999 mL/hr, Administer over 1 Hours, ONCE, 1 dose, On Sun03/11/25 at 80994 ml palonosetron 0.05 mg/ml injection (3 sources)Serotonin-3 Receptor AntagonistStart: 03-25-2025 End: 50.25 mg, INTRAVENOUS, ONCE, 1 dose, On Sun03/25/25 at 1300, Flush IV line with NS prior to and following administration.Start: 03-18-2025 End: 50.25 mg, INTRAVENOUS, ONCE, 1 dose, On Sun03/18/25 at 1130, Flush IV line with NS prior to and following administration.Start: 03-11-2025 End: 50.25 mg, INTRAVENOUS, ONCE, 1 dose, On Sun03/11/25 at 1130, Flush IV line with NS prior to and following administration.1000 ml sodium chloride 9 mg/ml injection (9 sources)Start: 04-22-2025 End: ,000 mL, INTRAVENOUS, at 999 mL/hr, Administer over 1 Hours, ONCE, 1 dose, On Sun04/22/25 at 1130Start: 04-15-2025 End: 19-63-5575LjKe 0.9% 1,000 mL iv bolusStart: 04-15-2025 End: ,000 mL, INTRAVENOUS, at 999 mL/hr, Administer over 1 Hours, ONCE, 1 dose, On Sun04/15/25 at 1100Start: 04-08-2025 End: 01-65-8472XzWe 0.9% 1,000 mL iv bolusStart: 04-08-2025 End: 36-43-7676CvPg 0.9% 1,000 mL iv bolusStart: 04-08-2025 End: ,000 mL, INTRAVENOUS, at 999 mL/hr, Administer over 1 Hours, ONCE, 1 dose, On Sun04/08/25 at 1100Start: 03-25-2025 End: ,000 mL, INTRAVENOUS, at 999 mL/hr, Administer over 1 Hours, ONCE, 1 dose, On Sun03/25/25 at 1330Start: 03-18-2025 End: ,000 mL, INTRAVENOUS, at 999 mL/hr, Administer over 1 Hours, ONCE, 1 dose, On Sun03/18/25 at 1200Start: 03-11-2025 End: ,000 mL, INTRAVENOUS, at 999 mL/hr, Administer over 1 Hours, ONCE, 1 dose, On Sun03/11/25 at 1200 Problems Active Problems Problem ClassificationProblemDateDocumented DateEpisodic/ChronicAcute bronchitis (10 sources)Acute bronchitis, unspecified; Translations: [Acute bronchitis] Onset: 98-00-1636EmnhstptVahhqexdt and vision defects (1 source)Unqualified visual loss, both eyes; Translations: [Blindness of both eyes]Onset: 79-57-6583SxocivpUvcjoi of bronchus; lung (4 sources)Malignant neoplasm of lower respiratory tract; Translations: [Malignant neoplasm of unspecified part of unspecified bronchus or lung]Onset: [id number] of head and neck (20 sources)Malignant tumor of vocal cord; 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]Onset: [id number] dysrhythmias (2 sources)Unspecified atrial fibrillation; Translations: [Unspecified atrial fibrillation]Onset: 21-32-5705RdogvzrArmenyq obstructive pulmonary disease and bronchiectasis (16 sources)Chronic obstructive pulmonary disease with (acute) lower respiratory infection; Translations: [Chronic obstructive lung disease]Onset: 02-04-2022 29-47-8674RcdadubXcxlhresdia and hemorrhagic disorders (6 sources)Thrombocytopenic disorder; Translations: [Thrombocytopenia, unspecified]Onset: 290750-30-2169WsziovqBynqvfgfmj heart failure; nonhypertensive (1 source)Unspecified diastolic (congestive) heart failure; Translations: [UNSPECIFIED DIASTOLIC HEART FAILURE]Onset: 85-74-3608JlnckbxRqbbygdh atherosclerosis and other heart disease (20 sources)Atherosclerotic heart disease of [place] coronary artery without angina pectoris; Translations: [Atherosclerotic heart disease of [place] coronary artery with other forms of angina pectoris]Onset: 57-39-0566FqqxueeFyhdqbyvqa and other anemia (1 source)Pancytopenia due to antineoplastic chemotherapy; Translations: [Antineoplastic chemotherapy inducedpancytopenia]40-86-6697XrngsebThitfyvnya and other anemia (1 source)Antineoplastic chemotherapy induced pancytopenia; Translations: [Antineoplastic chemotherapy induced pancytopenia]Onset: 23-28-4308Niofgcg Diabetes mellitus without complication (19 sources)Type 2 diabetes mellitus; Translations: [Type 2 diabetes mellitus without complications]Onset: 865848-32-2172CdtplxfJjrnfgrr of white blood cells (5 sources)Neutropenia due to and following chemotherapy; Translations: [Agranulocytosis secondary to cancer chemotherapy]Onset: ChronicDisorders of lipid metabolism (20 sources)Mixed hyperlipidemia; Translations: [Hyperlipidemia]Onset: 74-87-0864UpbhnvwX Codes: Adverse effects of medical drugs (3 sources)Adverse effect of antineoplastic and immunosuppressive drugs, initial encounter; Translations: [Antineoplastic chemotherapy induced pancytopenia] Onset: 69-47-8961QdtzzdvgBdlbtroddq disorders (6 sources)Gastroesophageal reflux disease; Translations: [Gastro-esophageal reflux disease without esophagitis]Onset: 560611-36-9066EzuqxmxXaclyvlby hypertension (17 sources)Essential (primary) hypertension; Translations: [Essential hypertension]Onset: 33-30-0616WokaejuJdrqn and electrolyte disorders (3 sources)Dehydration; Translations: [Dehydration]12-55-6080Dusylwzi Hypertension with complications and secondary hypertension (1 source)Hypertensive heart disease with heart failure; Translations: [HTN HEART DISEASE W/HEART FAIL]Onset: 22-11-6542KqapgaxXwznghpt disorders (2 sources)Patient immunocompromised; Translations: [Immunodeficiency, unspecified]Onset: 767357-17-0412QatvzrsVxsvljlwafskf (4 sources)Lymphadenopathy; Translations: [Enlarged lymph nodes, unspecified] Onset: 943046-41-1072CbigoznaQbcospzjngq chemotherapy; radiotherapy (6 sources)Patient encounter status; Translations: [Encounter for antineoplastic chemotherapy]Onset: 723146-55-7051PtmfiaeDokuoif and fatigue (7 sources)Fatigue due to chemotherapy; Translations: [Other fatigue]Onset: 854940-19-1402OejubuqaZqdgfja (6 sources)Onychomycosis; Translations: [Tinea unguium]Onset: 05-18-2025 75-80-4415PiavzzkjWswepkbwgtt chest pain (7 sources)Chest pain, unspecified; Translations: [Chest wall pain]Onset: 043297-94-4675PxdpvxkyImpfrcyitct deficiencies (1 source)Mild protein-calorie malnutrition; Translations: [Mild protein-calorie malnutrition (HCC)]Onset: 45-44-6347MyxhenfPlwaygrrmzjcsi (6 sources)Localized, primary osteoarthritis of the ankle and/or foot; Translations: [Primary osteoarthritis, unspecified ankle and foot]Onset: 641231-04-0052CrziusqAxwlz aftercare (1 source)Long-term current use of immunosuppressive drug; Translations: [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 use of immunosuppressive drug]30-84-2670IngtodzgHlxeq aftercare (6 sources)Long-term current use of drug therapy; Translations: [Other termite renewal inspector (current) drug therapy]Onset: 827588-20-8747AptrsfkuMygfu diseases of veins and lymphatics (6 sources)Peripheral venous insufficiency; Translations: [Venous insufficiency (chronic) (peripheral)]Onset: 732588-04-2511UgthlasmWdorr gastrointestinal disorders (8 sources)Constipation; Translations: [Constipation, unspecified]Onset: 773782-94-3877RkjkhpszBavji lower respiratory disease (1 source)Nodule of lung; Translations: [Solitary pulmonary nodule]02-05-2025 EpisodicOther nervous system disorders (6 sources)Carpal tunnel syndrome; Translations: [Carpal tunnel syndrome, unspecified upper limb]Onset: 859554-24-2686XobubfmHyecq nervous system disorders (1 source)Carpal tunnel syndrome, left upper limb; Translations: [Carpal tunnel syndrome, left upper limb]Onset: 93-71-0015ZyalcozRwfgs non-traumatic joint disorders (6 sources)Arthralgia of the ankle and/or foot; Translations: [Pain in unspecified ankle and joints of unspecified foot]Onset: EpisodicOther nutritional; endocrine; and metabolic disorders (17 sources)Hypomagnesemia; Translations: [Hypomagnesemia]Onset: 01-16-2023 57-12-1998KnnlutuBwhuu nutritional; endocrine; and metabolic disorders (15 sources)Obesity; Translations: [Obesity, unspecified]Onset: 01-11-2023 24-62-2743CljtdyzNwxju nutritional; endocrine; and metabolic disorders (6 sources)Overweight; Translations: [Overweight]Onset: EpisodicOther skin disorders (1 source)Generalized hyperhidrosis; Translations: [Generalized hyperhidrosis] Onset: 79-93-5437OzsbynjfPwdkt skin disorders (6 sources)Excessive sweating; Translations: [Generalized hyperhidrosis]Onset: 052721-65-7460ZvjwqtfgZdzsv upper respiratory disease (2 sources)Other diseases of vocal cords; Translations: [Other diseases of vocal cords]00-07-3902QbtwhgonAifrc upper respiratory disease (2 sources)Hoarse; Translations: [Dysphonia]48-80-9219XpdujukiDvbwb upper respiratory disease (4 sources)Dysphonia; Translations: [Dysphonia]30-08-4095JshctqvnUxyke upper respiratory disease (1 source)Pain in throat; Translations: [Pain in throat]54-98-8350EhhttffjWgszp upper respiratory disease (6 sources)Disorder of vocal cord; Translations: [Other diseases of vocal cords] Onset: 501738-32-6040KqklcbtpWvwfl upper respiratory disease (6 sources)Bleeding from nose; Translations: [Epistaxis]Onset: 05-18-2025 39-10-5989CncmlcdrWziry upper respiratory disease (1 source)Dysphonia; Translations: [Dysphonia]Onset: 01-61-8578DzzskagjSpoms upper respiratory disease (1 source)Pain in throat; Translations: [Pain in throat]Onset: 05-04-2025 EpisodicResidual codes; unclassified (6 sources)Insomnia; Translations: [Insomnia, unspecified]Onset: 05-18-2025 83-15-7663WkmmhjtvCndorrh detachments; defects; vascular occlusion; and retinopathy (17 sources)Degenerative disorder of macula ; Translations: [Unspecified macular degeneration]Onset: 886729-09-1422GayopigBcwm and subcutaneous tissue infections (6 sources)Cellulitis; Translations: [Cellulitis, unspecified]Onset: 05-18-2025 40-70-1878IeirluqsJnxrxaugispd (1 source)alf current use of immunosuppressive drug; Translations: [alf current use of immunosuppressive drug]Onset: 07-03-9618Ynnxdkcegjyd (1 source)Malignant neoplasm of left vocal cordOnset: 67-87-2117Myxps infection (6 sources)Disease caused by 2019-nCoV; Translations: [COVID-19]Onset: 316168-03-7268Vtvkuhdy Past or Other Problems Problem ClassificationProblemDateDocumented DateEpisodic/ChronicAcute posthemorrhagic anemia (15 sources)Anemia following acute postoperative blood loss; Translations: [Acute posthemorrhagic anemia]Onset: 115055-64-1680Wdyoifzq Administrative/social admission (2 sources)Patient encounter status; Translations: [Counseling, unspecified] Onset: 953482-45-2011VukfvwxgRihkvikyojlml of surgical procedures or medical care (17 sources)Other postprocedural complications and disorders of the circulatory system, not elsewhere classified; Translations: [Atrial fibrillation]Onset: 95-34-0318UizevwpuDodqfmmz atherosclerosis and other heart disease (5 sources)Presence of aortocoronary bypass graft; Translations: [Aortocoronary bypass graft present]Onset: 26-35-8311DoaxyxaeXthqy lower respiratory disease (15 sources)Respiratory insufficiency; Translations: [Other abnormalities of breathing]Onset: 348511-64-5225SbpcnmncJvyms lower respiratory disease (1 source)Solitary pulmonary nodule; Translations: [Lung nodule]Onset: 63-71-7166RbqwisqcNufhofis; pneumothorax; pulmonary collapse (20 sources)Atelectasis; Translations: [Atelectasis]Onset: 416187-47-9348 EpisodicScreening and history of mental health and substance abuse codes (2 sources)Personal history of nicotine dependence; Translations: [Personal history of tobacco use]Onset: 834624-42-1780Rvehdpsc Results Test NameValueInterpretationReference RangeFacilityCNOVon 91-24-3630SJWYYimosi [facility] W Auto Differential panel (Bld)on 06-08-2025 Basophils (Bld) [#/Vol]0.03 10*3/uLNormal<0.11CK[facility] on above:Order Comment: Specimen Type: BLOOD SPECIMENOrdering Facility: [facility] Address:[address] [place] [address] Performed By: #### 85383-7 ####[facility] LABCLIA [id number] [place], [place] [address]Tqvvtpuvj/100 WBC (Bld)0.5 % NormalSamaritan Hospital on above:Order Comment: Specimen Type: BLOOD SPECIMENOrdering Facility: [facility] Address:[address] [place], [place] [address]Performed By: #### 25594-1 ####[facility] LABCLIA [id number] [place] [address] Differential cell count method Nom (Bld)AutoNormalClevelunc health Clinic [facility] Comment on above:Order Comment: Specimen Type: BLOOD SPECIMENOrdering Facility: [facility] Address:[address] [place] [address] Performed By: #### 30431-6 ####[facility] LABIA [id number] [place], [place] [address]Lxwharinbtj (Bld) [#/Vol]0.10 10*3/uLNormal<0.46[facility] on above:Order Comment: Specimen Type: BLOOD SPECIMENOrdering Facility: [facility] Address:[address] [place], [place] [address]Performed By: #### 40887-1 ####[facility] LABIA [id number] [place], [place] [address]Nkncyjklret/100 WBC (Bld)1.6 %NormalSamaritan Hospital on above:Order Comment: Specimen Type: BLOOD SPECIMENOrdering Facility: [facility] Address:[address] [place], [place] [address]Performed By: #### 25403-6 ####[facility] LABIA [id number] [place], [place] [address]Cvczfdshonu distribution width (RBC) [Ratio]14.0 %Eribvm23.5-15.0[facility] on above: Order Comment: Specimen Type: BLOOD SPECIMENOrdering Facility: [facility] Address:[address] [place], [place] [address]Performed By: #### 30562- 8 ####[facility] LABIA [id number] [place], [place] [address]Uqniiszjji (Bld) [Volume fraction]37.5 %Low39.0-51.0 [facility] on above:Order Comment: Specimen Type: BLOOD SPECIMENOrdering Facility: [facility] Address:[address] [place], [place] [address]Performed By: #### 66956-2 ####[facility] LABCLIA [id number] [place], [place] [address]Amveczudwo (Bld) [Mass/Vol]12.9 g/dLLow13.0-17.0[facility] on above:Order Comment: Specimen Type: BLOOD SPECIMENOrdering Facility: [facility] Address:[address] [place], [place] [address]Performed By: #### 15942- 8 ####[facility] LABCLIA [id number] [place], [place] [address]Dojbveqi granulocytes (Bld) [#/Vol]0.06 10*3/uLNormal <0.10[facility] on above:Order Comment: Specimen Type: BLOOD SPECIMENOrdering Facility: [facility] Address:[address] [place], [place] [address]Performed By: #### 10549-3 ####[facility] LABCLIA [id number] [place], [place] [address]Gxuvfppu granulocytes/100 WBC (Bld)1.0 %NormalSamaritan Hospital on above: Order Comment: Specimen Type: BLOOD SPECIMENOrdering Facility: [facility] Address:[address] [place], [place] [address]Performed By: #### 42343- 8 ####[facility] LABCLIA [id number] [place], [place] [address]Kzqktncpbbx (Bld) [#/Vol]0.67 10*3/uLLow1.00-4.00 [facility] on above:Order Comment: Specimen Type: BLOOD SPECIMENOrdering Facility: [facility] Address:[address] [place], [place] [address]Performed By: #### 86494-5 ####[facility] LABCLIA [id number] [place], [place] [address]Ryianujxufd/100 WBC (Bld)10.6 %NormalSamaritan Hospital on above:Order Comment: Specimen Type: BLOOD SPECIMENOrdering Facility: [facility] Address:[address] [place], [place] [address]Performed By: #### 13598-1 ####[facility] LABCLIA [id number] [place], [place] [address]OQV (RBC) [Entitic mass]33.9 faMsrcum17.0-34.0[facility] on above:Order Comment: Specimen Type: BLOOD SPECIMENOrdering Facility: [facility] Address:[address] [place], [place] [address]Performed By: #### 24207-7 ####[facility] LABIA [id number] [place], [place] [address]PLNN (RBC) [Mass/Vol]34.4 g/cUChupep23.5-36.0[facility] on above: Order Comment: Specimen Type: BLOOD SPECIMENOrdering Facility: [facility] Address:[address] [place], [place] [address]Performed By: #### 49876- 8 ####[facility] LABIA [id number] [place], [place] [address]YYH (RBC) [Entitic vol]98.7 rMKhtaif10.0-100.0[facility] on above:Order Comment: Specimen Type: BLOOD SPECIMENOrdering Facility: [facility] Address:[address] [place], [place] [address]Performed By: #### 53523-2 ####[facility] LABIA [id number] [place], [place] [address]Wbcyxzrei (Bld) [#/Vol]0.87 10*3/uLHigh<0.87[facility] on above:Order Comment: Specimen Type: BLOOD SPECIMENOrdering Facility: [facility] Address:[address] [place], [place] [address]Performed By: #### 54796- 8 ####[facility] LABCLIA [id number] [place], [place] [address]Alqhqucph/100 WBC (Bld)13.8 %NormalSamaritan Hospital on above:Order Comment: Specimen Type: BLOOD SPECIMENOrdering Facility: [facility] Address:[address] [place], [place] [address]Performed By: #### 59037-6 ####[facility] LABCLIA [id number] [place], [place] [address]Lbqnfmgbfad (Bld) [#/Vol]4.57 10*3/uLNormal1.45-7.50[facility] on above:Order Comment: Specimen Type: BLOOD SPECIMENOrdering Facility: [facility] Address:[address] [place], [place] [address]Performed By: #### 99309-7 ####[facility] LABCLIA [id number] [place], [place] [address]Aodicfrhnkq/100 WBC (Bld)72.5 %NormalSamaritan Hospital on above:Order Comment: Specimen Type: BLOOD SPECIMENOrdering Facility: [facility] Address:[address] [place], [place] [address]Performed By: #### 59593-5 ####[facility] LABCLIA [id number] [place], [place] [address]Vjgkolblb RBC (Bld) [#/Vol] 10*3/uLNormal<0.01[facility] on above:Order Comment: Specimen Type: BLOOD SPECIMENOrdering Facility: [facility] Address:[address] [place], [place] [address]Performed By: #### 67505-3 ####[facility] LABIA [id number] [place], [place] [address]Fhvestahl RBC/100 WBC (Bld) [Ratio]0.0 /100 WBCNormal [facility] on above:Order Comment: Specimen Type: BLOOD SPECIMENOrdering Facility: [facility] Address:[address] [place], [place] [address]Performed By: #### 35599-0 ####[facility] LABCLIA [id number] [place], [place] [address]Ozzzqisp mean volume (Bld) [Entitic vol]8.5 fLLow9.0-12.7CKet[facility] Hospital on above:Order Comment: Specimen Type: BLOOD SPECIMENOrdering Facility: [facility] Address:[address] [place], [place] [address]Performed By: #### 84470-0 ####[facility] LABCLIA [id number] [place], [place] [address]Tnvptaqsd (Bld) [#/Vol]123 10*3/xZIqd123-506HmeqznxxfSamaritan Hospital on above:Order Comment: Specimen Type: BLOOD SPECIMENOrdering Facility: [facility] Address:[address] [place], [place] [address]Performed By: #### 17243-5 ####[facility] LABCLIA [id number] [place], [place] [address]WSV (Bld) [#/Vol]3.80 10*6/uLLow4.20-6.00[facility] on above:Order Comment: Specimen Type: BLOOD SPECIMENOrdering Facility: [facility] Address:[address] [place], [place] [address]Performed By: #### 18359- 8 ####[facility] LABCLIA [id number] [place], [place] [address]JGC (Bld) [#/Vol]6.30 10*3/uLNormal3.70-11.00[facility] on above:Order Comment: Specimen Type: BLOOD SPECIMENOrdering Facility: [facility] Address:[address] [place], [place] [address]Performed By: #### 87372-5 ####[facility] LABCLIA [id number] [facility] [place], [place] [address]HQUQIKASFev 93-25-6384YAAGZTQZGWulnoxIfkowheuj Clinic ClevelandCNOVSPon 88-65-1555IICAYG NormalUniversity Hospitals Tripoint Medical CenterComprehensive metabolic 2000 panelon 06-08-2025 Albumin [Mass/Vol]3.9 g/dLNormal3.9-4.9CKettering [facility] Hospital on above:Order Comment: Specimen Type: BLOOD SPECIMENOrdering Facility: [facility] Address:[address] [place], [place] [address]Performed By: #### 26584-7 ####[facility] LABCLIA [id number] [facility]ARIO JAIMESARTHURPAGE HOSPITALFREDYC[place], [place] [address]LSW [Catalytic activity/Vol]118 U/YIcfj29-707 [facility] on above:Order Comment: Specimen Type: BLOOD SPECIMENOrdering Facility: [facility] Address:[address] [place], [place] [address]Performed By: #### 59185-1 ####[facility] LABCLIA [id number] [facility] CENTERARTHURCHAR[place], [place] [address]HOY [Catalytic activity/Vol]17 U/JInffrw54-40XgvbvcxrgSamaritan Hospital on above:Order Comment: Specimen Type: BLOOD SPECIMENOrdering Facility: [facility] Address:[address] [place], [place] [address]Performed By: #### 81941- 8 ####[facility] LABCLIA [id number] [facility] HOSPITALARCENI[place], [place] [address]Yhfdj gap [Moles/Vol]15 mmol/LNormal8-15[facility] on above:Order Comment: Specimen Type: BLOOD SPECIMENOrdering Facility: [facility] Address:[address] [place], [place] [address]Performed By: #### 41466-6 ####[facility] LABCLIA [id number] [facility] CENTERARTHURCHAR[place], [place] [address]LCO [Catalytic activity/Vol]16 U/YRncomr92-99WgvcbhyxwSamaritan Hospital on above:Order Comment: Specimen Type: BLOOD SPECIMENOrdering Facility: [facility] Address:[address] [place], [place] [address]Performed By: #### 79161-4 ####[facility] LABCLIA [id number] [facility] [place] [address] Bilirubin [Mass/Vol]0.4 mg/dLNormal0.2-1.3CK[facility] on above:Order Comment: Specimen Type: BLOOD SPECIMENOrdering Facility: [facility] Address:[address] [place], [place] [address]Performed By: #### 53223-6 ####[facility] LABCLIA [id number] [facility] CENTERARTHUR[place], [place] [address]Asxcylk [Mass/Vol]9.8 mg/dLNormal8.5-10.2CK[facility] on above:Order Comment: Specimen Type: BLOOD SPECIMENOrdering Facility: [facility] Address:[address] [place], [place] [address]Performed By: #### 90258-4 ####[facility] LABCLIA [id number] [facility]ENTERARTHURPAGE HOSPITALARCENIOCHE[place], [place] [address]Pdjoeobl [Moles/Vol]103 mmol/YBulwmz91-864FiadoatgpSamaritan Hospital on above: Order Comment: Specimen Type: BLOOD SPECIMENOrdering Facility: [facility] Address:[address] [place], [place] [address]Performed By: #### 12615- 8 ####[facility] LABCLIA [id number] [facility] [place], [place] [address]AC1 [Moles/Vol]23 mmol/YIyzfah45-10FeavduwtxSamaritan Hospital on above:Order Comment: Specimen Type: BLOOD SPECIMENOrdering Facility: [facility] Address:[address] [place], [place] [address]Performed By: #### 36048-6 ####[facility] LABCLIA [id number] [place], [place] [address]Zmnoinvdvi [Mass/Vol]0.87 mg/dL Normal0.73-1.22[facility] on above:Order Comment: Specimen Type: BLOOD SPECIMENOrdering Facility: [facility] Address:[address] [place], [place] [address]Performed By: #### 78331-3 ####[facility] LABCLIA [id number] [place], [place] [address]sJMQdx SerPlBld CKD-EPI 117545 mL/min/1.73m???Normal>=60 [facility] on above:Order Comment: Specimen Type: BLOOD SPECIMENOrdering Facility: [facility] Address:[address] [place], [place] [address]Result Comment: Estimated Glomerular Filtration Rate (eGFR) is calculated using the 2020 CKD-EPI creatinine equation. This equation utilizes serum creatinine, sex, and age as parameters. The creatinine assay has traceable calibration to isotope dilution-mass spectrometry. Refer to KDIGO guidelines for clinical interpretation. In patients with unstable renal function, e.g. those with acute kidney injury, the eGFR may not accurately reflect actual GFR.Performed By: #### 59924-4 ####[facility] LABCLIA [id number] [place], [place] [address]Trzeyzl [Mass/Vol]274 mg/mUJgkz95-24VezacpvesSamaritan Hospital on above:Order Comment: Specimen Type: BLOOD SPECIMENOrdering Facility: [facility] Address:[address] [place], [place] [address]Result Comment: The [place] [employer] (ADA) provides guidance for cutoff values for fast ing glucose and random glucose. The ADA defines fasting as no caloric intake for at least 8 hours. Fasting plasma glucose results between 100 to 125 mg/dL indicate increased risk for diabetes (prediabetes).Fasting plasma glucose results greater than or equal to 126 mg/dL meet the criteria for diagnosis of diabetes. In the absence of unequivocal hyperglycemia, results should be confirmed by repeattesting. In a patient with classic symptoms of hyperglycemia or hyperglycemic crisis, random plasmaglucose results greater than or equal to 200 mg/dL meet the criteria for diagnosis of diabetes.Reference: Standards of Medical Care in Diabetes 2016, [place] [employer]. Diabetes Care. 2016.39(Suppl 1).Performed By: #### 09324-8 ####[facility] LABCLIA [id number] [place], [place] [address]Wmmpvsxuc [Moles/Vol]4.5 mmol/LNormal3.7-5.1CKettering [facility] Hospital on above: Order Comment: Specimen Type: BLOOD SPECIMENOrdering Facility: [facility] Address:[address] [place], [place] [address]Performed By: #### 17668- 8 ####[facility] LABCLIA [id number] [place], [place] [address]Lrqfvox [Mass/Vol]6.5 g/dLNormal6.3-8.0[facility] on above:Order Comment: Specimen Type: BLOOD SPECIMENOrdering Facility: [facility] Address:[address] [place], [place] [address]Performed By: #### 63538-9 ####[facility] LABIA [id number] [place], [place] [address]Xssrzs [Moles/Vol]141 mmol/L Bqjnim803-568HsoqofmthSamaritan Hospital on above:Order Comment: Specimen Type: BLOOD SPECIMENOrdering Facility: [facility] Address:[address] [place], [place] [address]Performed By: #### 13445-3 ####[facility] LABCLIA [id number] [place] [address] Urea nitrogen [Mass/Vol]17 mg/dLNormal9-24[facility] on above:Order Comment: Specimen Type: BLOOD SPECIMENOrdering Facility: [facility] Address:[address] [place], [place] [address]Performed By: #### 93147-2 ####[facility] LABCLIA [id number] [place], [place] [address]QIQTEAIQCsd 31-34-4318VTKTKSNLKGcsxncGltyfdhnd Clinic ClevelandCBC W Auto Differential panel (Bld)on 68-43-6644Pbcjdkkqq (Bld) [#/Vol]10*3/uLNormal<0.11CK[facility] on above:Order Comment: Specimen Type: BLOOD SPECIMENOrdering Facility: [facility] Address:[address] [place], [place] [address]Performed By: #### 53849- 8 ####[facility] LABCLIA [id number] [place], [place] [address]Tpkqhebbx/100 WBC (Bld)0.5 %NormalSamaritan Hospital on above:Order Comment: Specimen Type: BLOOD SPECIMENOrdering Facility: [facility] Address:[address] [place], [place] [address]Performed By: #### 52610-2 ####[facility] LABCLIA [id number] [place], [place] [address]Czdgvexnbyqy cell count method Nom (Bld)AutoNormalCKettering Memorial Hospital on above:Order Comment: Specimen Type: BLOOD SPECIMENOrdering Facility: [facility] Address:[address] [place], [place] [address]Performed By: #### 09998-2 ####[facility] LABCLIA [id number] [place], [place] [address]Emjkbbvenor (Bld) [#/Vol]10*3/uLNormal<0.46[facility] on above:Order Comment: Specimen Type: BLOOD SPECIMENOrdering Facility: [facility] Address:[address] [place], [place] [address]Performed By: #### 01365-3 ####[facility] LABCLIA [id number] [place], [place] [address]Edickslwbus/100 WBC (Bld)0.5 %NormalSamaritan Hospital on above:Order Comment: Specimen Type: BLOOD SPECIMENOrdering Facility: [facility] Address:[address] [place], [place] [address]Performed By: #### 46437-5 ####[facility] LABCLIA [id number] [place], [place] [address]Lpsykrzeepe distribution width (RBC) [Ratio]17.5 %High 11.5-15.0[facility] on above:Order Comment: Specimen Type: BLOOD SPECIMENOrdering Facility: [facility] Address:[address] [place], [place] [address]Performed By: #### 52107-8 ####[facility] LABCLIA [id number] [place] [address] Hematocrit (Bld) [Volume fraction]35.1 %Low39.0-51.0[facility] Comment on above:Order Comment: Specimen Type: BLOOD SPECIMENOrdering Facility: [facility] Address:[address] [place] [address] Performed By: #### 61536-7 ####[facility] LABIA [id number] [place], [place] [address]Ecqnvvjmaq (Bld) [Mass/Vol]12.1 g/dLLow13.0-17.0[facility] on above:Order Comment: Specimen Type: BLOOD SPECIMENOrdering Facility: [facility] Address:[address] [place], [place] [address]Performed By: #### 17604-2 ####[facility] LABIA [id number] [place], [place] [address]Dowvtfdh granulocytes (Bld) [#/Vol]10*3/uLNormal<0.10 [facility] on above:Order Comment: Specimen Type: BLOOD SPECIMENOrdering Facility: [facility] Address:[address] [place], [place] [address]Performed By: #### 35305-5 ####[facility] LABCLIA [id number] [place], [place] [address]Tgkcqwpk granulocytes/100 WBC (Bld)0.5 %NormalSamaritan Hospital on above: Order Comment: Specimen Type: BLOOD SPECIMENOrdering Facility: [facility] Address:[address] [place], [place] [address]Performed By: #### 65763- 8 ####[facility] LABCLIA [id number] [place], [place] [address]Fwrlypziict (Bld) [#/Vol]0.47 10*3/uLLow1.00-4.00 [facility] on above:Order Comment: Specimen Type: BLOOD SPECIMENOrdering Facility: [facility] Address:[address] [place], [place] [address]Performed By: #### 50272-1 ####[facility] LABIA [id number] [place], [place] [address]Wqfzoovbzns/100 WBC (Bld)11.2 %NormalSamaritan Hospital on above:Order Comment: Specimen Type: BLOOD SPECIMENOrdering Facility: [facility] Address:[address] [place], [place] [address]Performed By: #### 28640-9 ####[facility] LABIA [id number] [place], [place] [address]TUK (RBC) [Entitic mass]34.9 brBttc87.0-34.0[facility] on above:Order Comment: Specimen Type: BLOOD SPECIMENOrdering Facility: [facility] Address:[address] [place], [place] [address]Performed By: #### 30981-1 ####[facility] LABIA [id number] [place], [place] [address]VEEY (RBC) [Mass/Vol]34.5 g/aTKlbgaj02.5-36.0[facility] on above: Order Comment: Specimen Type: BLOOD SPECIMENOrdering Facility: [facility] Address:[address] [place], [place] [address]Performed By: #### 59275- 8 ####[facility] LABCLIA [id number] [place], [place] [address]DUD (RBC) [Entitic vol]101.2 cXHdts38.0-100.0[facility] on above:Order Comment: Specimen Type: BLOOD SPECIMENOrdering Facility: [facility] Address:[address] [place], [place] [address]Performed By: #### 82952-8 ####[facility] LABCLIA [id number] [place], [place] [address]Jxqijzbth (Bld) [#/Vol]0.63 10*3/uLNormal<0.87[facility] on above:Order Comment: Specimen Type: BLOOD SPECIMENOrdering Facility: [facility] Address:[address] [place], [place] [address]Performed By: #### 11406- 8 ####[facility] LABCLIA [id number] [place], [place] [address]Tmocyuiby/100 WBC (Bld)15.0 %NormalSamaritan Hospital on above:Order Comment: Specimen Type: BLOOD SPECIMENOrdering Facility: [facility] Address:[address] [place], [place] [address]Performed By: #### 14400-7 ####[facility] LABCLIA [id number] [place], [place] [address]Sjafedsdxir (Bld) [#/Vol]3.04 10*3/uLNormal1.45-7.50[facility] on above:Order Comment: Specimen Type: BLOOD SPECIMENOrdering Facility: [facility] Address:[address] [place], [place] [address]Performed By: #### 79444-4 ####[facility] LABCLIA [id number] [place], [place] [address]Zcsjimulxwj/100 WBC (Bld)72.3 %NormalSamaritan Hospital on above:Order Comment: Specimen Type: BLOOD SPECIMENOrdering Facility: [facility] Address:[address] [place], [place] [address]Performed By: #### 02280-9 ####[facility] LABCLIA [id number] [place], [place] [address]Wsbkkcebj RBC (Bld) [#/Vol] 10*3/uLNormal<0.01[facility] on above:Order Comment: Specimen Type: BLOOD SPECIMENOrdering Facility: [facility] Address:[address] [place], [place] [address]Performed By: #### 89734-8 ####[facility] LABCLIA [id number] [place], [place] [address]Jqvpowoyv RBC/100 WBC (Bld) [Ratio]0.0 /100 WBCNormal [facility] on above:Order Comment: Specimen Type: BLOOD SPECIMENOrdering Facility: [facility] Address:[address] [place], [place] [address]Performed By: #### 17509-6 ####[facility] LABCLIA [id number] [place], [place] [address]Vlfmlnyn mean volume (Bld) [Entitic vol]8.6 fLLow9.0-12.7CKettering Memorial Hospital on above:Order Comment: Specimen Type: BLOOD SPECIMENOrdering Facility: [facility] Address:[address] [place], [place] [address]Performed By: #### 36629-6 ####[facility] LABCLIA [id number] [place], [place] [address]Oyyahzzbf (Bld) [#/Vol]120 10*3/xFIzj028-055QojibkbwmSamaritan Hospital on above:Order Comment: Specimen Type: BLOOD SPECIMENOrdering Facility: [facility] Address:[address] [place], [place] [address]Performed By: #### 24901-0 ####[facility] LABCLIA [id number] [place], [place] [address]AXJ (Bld) [#/Vol]3.47 10*6/uLLow4.20-6.00[facility] on above:Order Comment: Specimen Type: BLOOD SPECIMENOrdering Facility: [facility] Address:[address] [place], [place] [address]Performed By: #### 00398- 8 ####[facility] LABIA [id number] [place], [place] [address]ROM (Bld) [#/Vol]4.20 10*3/uLNormal3.70-11.00[facility] on above:Order Comment: Specimen Type: BLOOD SPECIMENOrdering Facility: [facility] Address:[address] [place], [place] [address]Performed By: #### 22275-6 ####[facility] LABIA [id number] [place], [place] [address]PMABWJtw 75-43-0303NROREKEutqngEpwufiglr Clinic ClevelandCNPNon 06-69-4085MUSIRdkani [facility] CenterComprehensive metabolic 2000 panelon 43-74-6815Kifmwya [Mass/Vol]4.1 g/dLNormal3.9-4.9CKettering [facility] Hospital on above:Order Comment: Specimen Type: BLOOD SPECIMENOrdering Facility: [facility] Address:[address] [place], [place] [address]Performed By: #### 30799- 8 ####[facility] LABIA [id number] [place], [place] [address]QND [Catalytic activity/Vol]103 U/CDdbwja40-058FlyfeaswcSamaritan Hospital on above:Order Comment: Specimen Type: BLOOD SPECIMENOrdering Facility: [facility] Address:[address] [place], [place] [address]Performed By: #### 00811-3 ####[facility] LABCLIA [id number] [facility]ENTERARTHURPAGE HOSPITALFREDYC[place]AND, [place] [address]JHF [Catalytic activity/Vol]18 U/XBmulkf13-80GtwpbivojSamaritan Hospital on above:Order Comment: Specimen Type: BLOOD SPECIMENOrdering Facility: [facility] Address:[address] [place], [place] [address]Performed By: #### 66562- 8 ####[facility] LABCLIA [id number] [place], [place] [address]Gbquf gap [Moles/Vol]11 mmol/LNormal8-15[facility] on above:Order Comment: Specimen Type: BLOOD SPECIMENOrdering Facility: [facility] Address:[address] [place], [place] [address]Performed By: #### 25432-2 ####[facility] LABCLIA [id number] [place], [place] [address]ZMW [Catalytic activity/Vol]20 U/BTvswwv51-36FjetyigwjSamaritan Hospital on above:Order Comment: Specimen Type: BLOOD SPECIMENOrdering Facility: [facility] Address:[address] [place], [place] [address]Performed By: #### 40291-6 ####[facility] LABCLIA [id number] [place] [address] Bilirubin [Mass/Vol]0.6 mg/dLNormal0.2-1.3CKettering [facility] Hospital on above:Order Comment: Specimen Type: BLOOD SPECIMENOrdering Facility: [facility] Address:[address] [place], [place] [address]Performed By: #### 26197-0 ####[facility] LABCLIA [id number] [place], [place] [address]Wuzpldh [Mass/Vol]9.4 mg/dLNormal8.5-10.2CK[facility] on above:Order Comment: Specimen Type: BLOOD SPECIMENOrdering Facility: [facility] Address:[address] [place], [place] [address]Performed By: #### 66385-0 ####[facility] LABCLIA [id number] [place], [place] [address]Qlitohln [Moles/Vol]100 mmol/WMneokd60-625OkjtwsgolSamaritan Hospital on above: Order Comment: Specimen Type: BLOOD SPECIMENOrdering Facility: [facility] Address:[address] [place], [place] [address]Performed By: #### 11459- 8 ####[facility] LABCLIA [id number] [place], [place] [address]GQ9 [Moles/Vol]26 mmol/PUqocyy46-80YzbzomfagSamaritan Hospital on above:Order Comment: Specimen Type: BLOOD SPECIMENOrdering Facility: [facility] Address:[address] [place], [place] [address]Performed By: #### 22683-4 ####[facility] LABCLIA [id number] [place], [place] [address]Rncnslfthv [Mass/Vol]0.96 mg/dL Normal0.73-1.22[facility] on above:Order Comment: Specimen Type: BLOOD SPECIMENOrdering Facility: [facility] Address:[address] [place], [place] [address]Performed By: #### 19154-0 ####[facility] LABCLIA [id number] [place], [place] [address]oSDNng SerPlBld CKD-EPI 582342 mL/min/1.73m???Normal>=60 [facility] on above:Order Comment: Specimen Type: BLOOD SPECIMENOrdering Facility: [facility] Address:[address] [place], [place] [address]Result Comment: Estimated Glomerular Filtration Rate (eGFR) is calculated using the 2020 CKD-EPI creatinine equation. This equation utilizes serum creatinine, sex, and age as parameters. The creatinine assay has traceable calibration to isotope dilution-mass spectrometry. Refer to KDIGO guidelines for clinical interpretation. In patients with unstable renal function, e.g. those with acute kidney injury, the eGFR may not accurately reflect actual GFR.Performed By: #### 38617-1 ####[facility] LABCLIA [id number] [place], [place] [address]Nndtwgd [Mass/Vol]228 mg/qNYgxr45-86FacdhnwloSamaritan Hospital on above:Order Comment: Specimen Type: BLOOD SPECIMENOrdering Facility: [facility] Address:[address] [place], [place] [address]Nyfqak Comment: The [place] [employer] (ADA) provides guidance for cutoff values for fast ing glucose and random glucose. The ADA defines fasting as no caloric intake for at least 8 hours. Fasting plasma glucose results between 100 to 125 mg/dL indicate increased risk for diabetes (prediabetes).Fasting plasma glucose results greater than or equal to 126 mg/dL meet the criteria for diagnosis of diabetes. In the absence of unequivocal hyperglycemia, results should be confirmed by repeattesting. In a patient with classic symptoms of hyperglycemia or hyperglycemic crisis, random plasmaglucose results greater than or equal to 200 mg/dL meet the criteria for diagnosis of diabetes.Reference: Standards of Medical Care in Diabetes 2016, [place] [employer]. Diabetes Care. 2016.39(Suppl 1).Performed By: #### 44514-9 ####[facility] LABCLIA [id number] [place], [place] [address]Ekzvvmvpl [Moles/Vol]4.6 mmol/LNormal3.7-5.1CKettering [facility] Hospital on above: Order Comment: Specimen Type: BLOOD SPECIMENOrdering Facility: [facility] Address:[address] [place], [place] [address]Dlxntmlfi By: #### 24732- 8 ####[facility] LABCLIA [id number] [place], [place] [address]Txouzjc [Mass/Vol]6.2 g/dLLow6.3-8.0[facility] on above:Order Comment: Specimen Type: BLOOD SPECIMENOrdering Facility: [facility] Address:[address] [place], [place] [address]Performed By: #### 86599-5 ####[facility] LABCLIA [id number] [place], [place] [address]Lvdqqe [Moles/Vol]137 mmol/L Ejsgmp393-747YkfnubxufSamaritan Hospital on above:Order Comment: Specimen Type: BLOOD SPECIMENOrdering Facility: [facility] Address:[address] [place], [place] [address]Performed By: #### 44252-6 ####[facility] LABIA [id number] [place] [address] Urea nitrogen [Mass/Vol]21 mg/dLNormal9-24[facility] on above:Order Comment: Specimen Type: BLOOD SPECIMENOrdering Facility: [facility] Address:[address] [place], [place] [address]Performed By: #### 71831-4 ####[facility] LABIA [id number] [place], [place] [address]COQIpx 18-02-4957AEYILovixfRmukuzdqs Clinic ClevelandCBC W Auto Differential panel (Bld)on 96-95-1734Yahadevaz (Bld) [#/Vol] 0.03 10*3/uLNormal<0.11CK[facility] on above:Order Comment: Specimen Type: BLOOD SPECIMENOrdering Facility: [facility] Address:[address] [place], [place] [address]Performed By: #### 50570-1 ####[facility] LABIA [id number] [place], [place] [address]Wdzutoqcp/100 WBC (Bld)0.7 %NormalSamaritan Hospital on above:Order Comment: Specimen Type: BLOOD SPECIMENOrdering Facility: [facility] Address:[address] [place], [place] [address]Performed By: #### 22378-7 ####[facility] LABIA [id number] [place], [place] [address]Pyofcxqsbpjz cell count method Nom (Bld)AutoNormalClevelCoshocton Regional Medical Center on above:Order Comment: Specimen Type: BLOOD SPECIMENOrdering Facility: [facility] Address:[address] [place], [place] [address]Performed By: #### 51084-0 ####[facility] LABCLIA [id number] [place], [place] [address]Qxpszhieias (Bld) [#/Vol]10*3/uLNormal<0.46[facility] on above:Order Comment: Specimen Type: BLOOD SPECIMENOrdering Facility: [facility] Address:[address] [place], [place] [address]Performed By: #### 54777-1 ####[facility] LABIA [id number] [place], [place] [address]Wxzkyamnlih/100 WBC (Bld)0.2 %NormalSamaritan Hospital on above:Order Comment: Specimen Type: BLOOD SPECIMENOrdering Facility: [facility] Address:[address] [place], [place] [address]Performed By: #### 61532-5 ####[facility] LABCLIA [id number] [place], [place] [address]Aipcljopzny distribution width (RBC) [Ratio]20.2 %High 11.5-15.0[facility] on above:Order Comment: Specimen Type: BLOOD SPECIMENOrdering Facility: [facility] Address:[address] [place], [place] [address]Performed By: #### 61765-5 ####[facility] LABIA [id number] [place] [address] Hematocrit (Bld) [Volume fraction]35.2 %Low39.0-51.0[facility] Comment on above:Order Comment: Specimen Type: BLOOD SPECIMENOrdering Facility: [facility] Address:[address] [place] [address] Performed By: #### 55385-8 ####[facility] LABIA [id number] [place], [place] [address]Tschrvmumm (Bld) [Mass/Vol]12.2 g/dLLow13.0-17.0[facility] on above:Order Comment: Specimen Type: BLOOD SPECIMENOrdering Facility: [facility] Address:[address] [place], [place] [address]Performed By: #### 74098-9 ####[facility] LABIA [id number] [place], [place] [address]Oizbfmsh granulocytes (Bld) [#/Vol]0.04 10*3/uLNormal <0.10[facility] on above:Order Comment: Specimen Type: BLOOD SPECIMENOrdering Facility: [facility] Address:[address] [place], [place] [address]Performed By: #### 39967-0 ####[facility] LABIA [id number] [place], [place] [address]Hrzbfptx granulocytes/100 WBC (Bld)0.9 %NormalSamaritan Hospital on above: Order Comment: Specimen Type: BLOOD SPECIMENOrdering Facility: [facility] Address:[address] [place], [place] [address]Performed By: #### 47710- 8 ####[facility] LABIA [id number] [place], [place] [address]Oypchpjkjrr (Bld) [#/Vol]0.58 10*3/uLLow1.00-4.00 [facility] on above:Order Comment: Specimen Type: BLOOD SPECIMENOrdering Facility: [facility] Address:[address] [place], [place] [address]Performed By: #### 40368-2 ####[facility] LABCLIA [id number] [place], [place] [address]Snhagzposhw/100 WBC (Bld)13.0 %NormalSamaritan Hospital on above:Order Comment: Specimen Type: BLOOD SPECIMENOrdering Facility: [facility] Address:[address] [place], [place] [address]Performed By: #### 69399-1 ####[facility] LABCLIA [id number] [place], [place] [address]MSF (RBC) [Entitic mass]35.1 sjPeqv90.0-34.0[facility] on above:Order Comment: Specimen Type: BLOOD SPECIMENOrdering Facility: [facility] Address:[address] [place], [place] [address]Performed By: #### 69386-4 ####[facility] LABIA [id number] [place], [place] [address]WJZL (RBC) [Mass/Vol]34.7 g/gRFmjxth03.5-36.0[facility] on above: Order Comment: Specimen Type: BLOOD SPECIMENOrdering Facility: [facility] Address:[address] [place], [place] [address]Performed By: #### 80055- 8 ####[facility] LABIA [id number] [place], [place] [address]GMC (RBC) [Entitic vol]101.1 uKWgah56.0-100.0[facility] on above:Order Comment: Specimen Type: BLOOD SPECIMENOrdering Facility: [facility] Address:[address] [place], [place] [address]Performed By: #### 12255-1 ####[facility] LABIA [id number] [place], [place] [address]Pcghksolw (Bld) [#/Vol]0.84 10*3/uLNormal<0.87[facility] on above:Order Comment: Specimen Type: BLOOD SPECIMENOrdering Facility: [facility] Address:[address] [place], [place] [address]Performed By: #### 88508- 8 ####[facility] LABCLIA [id number] [place], [place] [address]Kavstgykp/100 WBC (Bld)18.9 %NormalSamaritan Hospital on above:Order Comment: Specimen Type: BLOOD SPECIMENOrdering Facility: [facility] Address:[address] [place], [place] [address]Performed By: #### 13804-9 ####[facility] LABCLIA [id number] [place], [place] [address]Dqqnbbdpgip (Bld) [#/Vol]2.95 10*3/uLNormal1.45-7.50[facility] on above:Order Comment: Specimen Type: BLOOD SPECIMENOrdering Facility: [facility] Address:[address] [place], [place] [address]Performed By: #### 61245-7 ####[facility] LABCLIA [id number] [place], [place] [address]Ujhdtrbyevk/100 WBC (Bld)66.3 %NormalSamaritan Hospital on above:Order Comment: Specimen Type: BLOOD SPECIMENOrdering Facility: [facility] Address:[address] [place], [place] [address]Performed By: #### 23388-0 ####[facility] LABIA [id number] [place], [place] [address]Jcntmuegn RBC (Bld) [#/Vol] 10*3/uLNormal<0.01[facility] on above:Order Comment: Specimen Type: BLOOD SPECIMENOrdering Facility: [facility] Address:[address] [place], [place] [address]Performed By: #### 09215-8 ####[facility] LABCLIA [id number] [place], [place] [address]Tfebinint RBC/100 WBC (Bld) [Ratio]0.0 /100 WBCNormal [facility] on above:Order Comment: Specimen Type: BLOOD SPECIMENOrdering Facility: [facility] Address:[address] [place], [place] [address]Performed By: #### 51517-7 ####[facility] LABCLIA [id number] [place], [place] [address]Yyhlgyev mean volume (Bld) [Entitic vol]8.4 fLLow9.0-12.7CKettering [facility] on above:Order Comment: Specimen Type: BLOOD SPECIMENOrdering Facility: [facility] Address:[address] [place], [place] [address]Performed By: #### 33310-9 ####[facility] LABCLIA [id number] [place], [place] [address]Eebupjmhp (Bld) [#/Vol]135 10*3/aBCve616-818GvjgvdtqmSamaritan Hospital on above:Order Comment: Specimen Type: BLOOD SPECIMENOrdering Facility: [facility] Address:[address] [place], [place] [address]Performed By: #### 80058-2 ####[facility] LABCLIA [id number] [place], [place] [address]AZH (Bld) [#/Vol]3.48 10*6/uLLow4.20-6.00[facility] on above:Order Comment: Specimen Type: BLOOD SPECIMENOrdering Facility: [facility] Address:[address] [place], [place] [address]Performed By: #### 84433- 8 ####[facility] LABCLIA [id number] [place], [place] [address]TRH (Bld) [#/Vol]4.45 10*3/uLNormal3.70-11.00[facility] on above:Order Comment: Specimen Type: BLOOD SPECIMENOrdering Facility: [facility] Address:[address] [place], [place] [address]Performed By: #### 56788-8 ####[facility] LABCLIA [id number] [facility] CENTERARTHURCHARLOTT[place], [place] [address]Upsngsxljdjoo metabolic 2000 panelon 48-90-0929Ephichv [Mass/Vol]4.0 g/dLNormal3.9-4.9 [facility] on above:Order Comment: Specimen Type: BLOOD SPECIMENOrdering Facility: [facility] Address:[address] [place], [place] [address]Performed By: #### 38247-4 ####[facility] LABCLIA [id number] [place], [place] [address]FQX [Catalytic activity/Vol]105 U/VKerfbt41-086ZbofsrnurSamaritan Hospital on above:Order Comment: Specimen Type: BLOOD SPECIMENOrdering Facility: [facility] Address:[address] [place], [place] [address]Performed By: #### 81278- 8 ####[facility] LABCLIA [id number] [facility] [place], [place] [address]UQV [Catalytic activity/Vol]17 U/QXawrkm33-18HkewnjjnlSamaritan Hospital on above:Order Comment: Specimen Type: BLOOD SPECIMENOrdering Facility: [facility] Address:[address] [place], [place] [address]Performed By: #### 05636-2 ####[facility] LABCLIA [id number] [place], [place] [address]Rlcwv gap [Moles/Vol]12 mmol/LNormal8-15[facility] on above:Order Comment: Specimen Type: BLOOD SPECIMENOrdering Facility: [facility] Address:[address] [place], [place] [address]Performed By: #### [id number]- [id number] ####[facility] LABCLIA [id number] [facility] [place], [place] [address]TYU [Catalytic activity/Vol]18 U/RUqyron10-17LgngnnotoSamaritan Hospital on above:Order Comment: Specimen Type: BLOOD SPECIMENOrdering Facility: [facility] Address:[address] [place], [place] [address]Performed By: #### [id number] ####[facility] LABCLIA [id number] [place], [place] [address]Jtnkxipyp [Mass/Vol]0.6 mg/dLNormal0.2-1.3CK[facility] on above:Order Comment: Specimen Type: BLOOD SPECIMENOrdering Facility: [facility] Address:[address] [place], [place] [address]Performed By: #### [id number]- [id number] ####[facility] LABCLIA [id number] [facility] [place], [place] [address]Cihzrty [Mass/Vol]9.6 mg/dLNormal8.5-10.2CKet[facility] on above:Order Comment: Specimen Type: BLOOD SPECIMENOrdering Facility: [facility] Address:[address] [place], [place] [address]Performed By: #### [id number] ####[facility] LABCLIA [id number] [place], [place] [address]Sbyygsnw [Moles/Vol]100 mmol/L Fjenfo00-797EqntgqztnSamaritan Hospital on above:Order Comment: Specimen Type: BLOOD SPECIMENOrdering Facility: [facility] Address:[address] [place], [place] [address]Performed By: #### [id number] ####[facility] LABIA [id number] [place] [address] CO2 [Moles/Vol]27 mmol/IOwjhzo85-42AjeummftkSamaritan Hospital on above: Order Comment: Specimen Type: BLOOD SPECIMENOrdering Facility: [facility] Address:[address] [place] [address]Olpdbdxlc By: #### [id number]- 8 ####[facility] LABCLIA [id number] [place], [place] [address]Yhpidqghhg [Mass/Vol]0.98 mg/dLNormal0.73-1.22[facility] on above:Order Comment: Specimen Type: BLOOD SPECIMENOrdering Facility: [facility] Address:[address] [place], [place] [id number] By: #### 55640-0 ####[facility] LABCLIA [id number] [place], [place] [address]hOOLnb SerPlBld CKD-EPI 728663 mL/min/1.73m???Normal>=60[facility] on above:Order Comment: Specimen Type: BLOOD SPECIMENOrdering Facility: [facility] Address:[address] [place], [place] [address]Result Comment: Estimated Glomerular Filtration Rate (eGFR) is calculated using the 2020 CKD-EPI creatinine equation. This equation utilizes serum creatinine, sex, and age as parameters. The creatinine assay has traceable calibration to isotope dilution- mass spectrometry. Refer to KDIGO guidelines for clinical interpretation. In patients with unstable renal function, e.g. those with acute kidney injury, the eGFR may not accurately reflect actual GFR.Performed By: #### 78070-6 ####[facility] LABCLIA [id number] [place], [place] [address]Hwywzgp [Mass/Vol]210 mg/uLTlzq93-30SghfkorfjSamaritan Hospital on above:Order Comment: Specimen Type: BLOOD SPECIMENOrdering Facility: [facility] Address:[address] [place], [place] [address]Result Comment: The [place] Diabetes Association (ADA) provides guidance for cutoff values for fasting glucose and random glucose. The ADA defines fasting as no caloric intake for at least 8 hours. Fasting plasma glucose results between 100 to 125 mg/dL indicate increased risk for diabetes (prediab etes).Fasting plasma glucose results greater than or equal to 126 mg/dL meet the criteria for diagnosis of diabetes. In the absence of unequivocal hyperglycemia, results should be confirmed by repeattesting. In a patient with classic symptoms of hyperglycemia or hyperglycemic crisis, random plasmaglucose results greater than or equal to 200 mg/dL meet the criteria for diagnosis of diabetes.Reference: Standards of Medical Care in Diabetes 2016, [place] Diabetes Association. Diabetes Care. 2016.39(Suppl 1).Performed By: #### 89123-1 ####[facility] LABCLIA [id number] [place], [place] [address]Axxyywesk [Moles/Vol]4.3 mmol/LNormal3.7-5.1CKet[facility] on above:Order Comment: Specimen Type: BLOOD SPECIMENOrdering Facility: [facility] Address:[address] [place], [place] [address]Performed By: #### 83263-4 ####[facility] LABCLIA [id number] [place], [place] [address]Kuoqtya [Mass/Vol]6.4 g/dLNormal6.3-8.0[facility] on above:Order Comment: Specimen Type: BLOOD SPECIMENOrdering Facility: [facility] Address:[address] [place], [place] [address]Performed By: #### 36071- 8 ####[facility] LABCLIA [id number] [place], [place] [address]Tomdkc [Moles/Vol]139 mmol/ZZrnyya614-689LxixgosvoSamaritan Hospital on above:Order Comment: Specimen Type: BLOOD SPECIMENOrdering Facility: [facility] Address:[address] [place], [place] [address]Performed By: #### 44179-7 ####[facility] LABIA [id number] [place], [place] [address]Znkh nitrogen [Mass/Vol]18 mg/dLNormal9-24[facility] on above:Order Comment: Specimen Type: BLOOD SPECIMENOrdering Facility: [facility] Address:[address] [place], [place] [address]Performed By: #### 62205-8 ####[facility] LABCLIA [id number] [place], [place] [address]KXL W Auto Differential panel (Bld)on 05-04-2025 Anisocytosis Ql (Bld)PresentNormalCKettering Memorial Hospital on above: Order Comment: Specimen Type: BLOOD SPECIMENOrdering Facility: [facility] Address:[address] [place], [place] [address]Performed By: #### 57526- 8 ####[facility] LABCLIA [id number] [place] [address] LABCLIA [id number] [place] [address] [place] AMERICABasophils (Bld) [#/Vol]0.02 10*3/uLNormal<0.11CK[facility] on above:Order Comment: Specimen Type: BLOOD SPECIMENOrdering Facility: [facility] Address:[address] [place], [place] [address]Performed By: #### 80556- 8 ####[facility] LABCLIA [id number] [place] [address] LABCLIA [id number] [place] [address] [place] AMERICABasophils/100 WBC (Bld)0.9 %NormalSamaritan Hospital on above:Order Comment: Specimen Type: BLOOD SPECIMENOrdering Facility: [facility] Address:[address] [place], [place] [address]Performed By: #### 98663-2 ####[facility] LABCLIA [id number] [place] [address] LABCLIA [id number] [place] [address] [place] AMERICADifferential cell count method Nom (Bld)ManualNormalCKettering Memorial Hospital on above:Order Comment: Specimen Type: BLOOD SPECIMENOrdering Facility: [facility] Address:[address] [place], [place] [address]Performed By: #### 55595-3 ####[facility]ADLEIDA [facility] LABCLIA [id number] [address] LABCLIA [id number] [place] [address] [place] AMERICAEosinophils (Bld) [#/Vol]0.00 10*3/uLNormal<0.46[facility] on above: Order Comment: Specimen Type: BLOOD SPECIMENOrdering Facility: [facility] Address:[address] [place], [place] [address]Performed By: #### 37196- 8 ####[facility] LABCLIA [id number] [address] LABCLIA [id number] [place] [address] [place] AMERICAEosinophils/100 WBC (Bld)0.0 %NormalSamaritan Hospital on above:Order Comment: Specimen Type: BLOOD SPECIMENOrdering Facility: [facility] Address:[address] [place], [place] [address]Performed By: #### 09891-1 ####[facility] LABCLIA [id number] [address] LABCLIA [id number] [place] [address] [place] AMERICAErythrocyte distribution width (RBC) [Ratio]22.4 %High11.5-15.0[facility] Comment on above:Order Comment: Specimen Type: BLOOD SPECIMENOrdering Facility: [facility] Address:[address] [place] [address] Performed By: #### 33422-5 ####[facility] LABCLIA [id number] [place] [address] LABCLIA [id number] [place] [address] [place] AMERICAHematocrit (Bld) [Volume fraction]32.0 %Low39.0-51.0[facility] on above:Order Comment: Specimen Type: BLOOD SPECIMENOrdering Facility: [facility] Address:[address] [place], [place] [address]Performed By: #### 09008-2 ####[facility] LABCLIA [id number] [address] LABCLIA [id number] [place] [address] [place] AMERICAHemoglobin (Bld) [Mass/Vol]11.3 g/dLLow13.0-17.0[facility] on above:Order Comment: Specimen Type: BLOOD SPECIMENOrdering Facility: [facility] Address:[address] [place], [place] [address]Performed By: #### 18831-3 ####[facility] LABCLIA [id number] [address] LABCLIA [id number] [place] [address] [place] AMERICALymphocytes (Bld) [#/Vol]0.26 10*3/uLLow1.00-4.00[facility] on above:Order Comment: Specimen Type: BLOOD SPECIMENOrdering Facility: [facility] Address:[address] [place], [place] [address]Performed By: #### 11837-2 ####[facility] LABCLIA [id number] [address] LABCLIA [id number] [place] [address] [place] AMERICALymphocytes/100 WBC (Bld)13.0 %NormalCleveland Clinic ClevelandComment on above:Order Comment: Specimen Type: BLOOD SPECIMENOrdering Facility: [facility] Address:[address] [place] [address] Performed By: #### 79589-3 ####[facility] LABCLIA [id number] [place] [address] LABCLIA [id number] [address] (RBC) [Entitic mass]35.3 qwMnqh95.0-34.0[facility] Comment on above:Order Comment: Specimen Type: BLOOD SPECIMENOrdering Facility: [facility] Address:[address] [place] [address] Performed By: #### 83155-4 ####[facility] LABCLIA [id number] [address] LABCLIA [id number] [address] (RBC) [Mass/Vol]35.3 g/mGAiawnp16.5-36.0[facility] Comment on above:Order Comment: Specimen Type: BLOOD SPECIMENOrdering Facility: [facility] Address:[address] [place] [address] Performed By: #### 09551-4 ####[facility] LABCLIA [id number] [address] LABCLIA [id number] [address] (RBC) [Entitic vol]100.0 aLAulxwk35.0-100.0[facility] Medical CenterComment on above:Order Comment: Specimen Type: BLOOD SPECIMENOrdering Facility: [facility] Address:[address] [place], [place] [address]Performed By: #### 21856-8 ####[facility] LABCLIA [id number] [place] [address] LABCLIA [id number] [place] [address] [place] AMERICAMetamyelocytes/100 WBC (Bld)0.9 %NormalSamaritan Hospital on above:Order Comment: Specimen Type: BLOOD SPECIMENOrdering Facility: [facility] Address:[address] [place] [address] Performed By: #### 12010-1 ####[facility] LABCLIA [id number] [address] LABCLIA [id number] [place] [address] [place] AMERICAMonocytes (Bld) [#/Vol]0.41 10*3/uLNormal<0.87[facility] Comment on above:Order Comment: Specimen Type: BLOOD SPECIMENOrdering Facility: [facility] Address:[address] [place] [address] Performed By: #### 99720-3 ####[facility] LABCLIA [id number] [address] LABCLIA [id number] [place] [address] [place] AMERICAMonocytes/100 WBC (Bld)20.9 %NormalSamaritan Hospital on above:Order Comment: Specimen Type: BLOOD SPECIMENOrdering Facility: [facility] Address:[address] [place], [place] [address]Performed By: #### 35962-3 ####[facility] LABCLIA [id number] [address] LABCLIA [id number] [place] [address] [place] AMERICANeutrophils (Bld) [#/Vol]1.27 10*3/uLLow1.45-7.50[facility] on above: Order Comment: Specimen Type: BLOOD SPECIMENOrdering Facility: [facility] Address:[address] [place], [place] [address]Performed By: #### 56279- 8 ####[facility] LABCLIA [id number] [address] LABCLIA [id number] [place] [address] [place] AMERICANeutrophils/100 WBC (Bld)64.3 %NormalSamaritan Hospital on above:Order Comment: Specimen Type: BLOOD SPECIMENOrdering Facility: [facility] Address:[address] [place], [place] [address]Performed By: #### 48472-3 ####[facility] LABCLIA [id number] [address] LABCLIA [id number] [place] [address] [place] AMERICANucleated RBC (Bld) [#/Vol]10*3/uLNormal<0.01[facility] on above:Order Comment: Specimen Type: BLOOD SPECIMENOrdering Facility: [facility] Address:[address] [place], [place] [address]Performed By: #### 21134- 8 ####[facility] LABCLIA [id number] [address] LABCLIA [id number] [place] [address] [place] AMERICANucleated RBC/100 WBC (Bld) [Ratio]0.0 /100 WBCNormalCKettering Memorial Hospital on above:Order Comment: Specimen Type: BLOOD SPECIMENOrdering Facility: [facility] Address:[address] [place], [place] [address]Performed By: #### 04374-1 ####[facility] LABCLIA [id number] [place], [place] [address]OTYEKCFXCKETTER[facility] LABCLIA [id number] [address] [place] [address] [place] AMERICAOvalocytes LM Ql (Bld)FewNormalCKettering Memorial Hospital on above:Order Comment: Specimen Type: BLOOD SPECIMENOrdering Facility: [facility] Address:[address] [place], [place] [address]Performed By: #### 19250-7 ####[facility]LEIDA [facility] LABCLIA [id number] [place] [address] LABCLIA [id number] [address], [facility]95 [place] AMERICAPlatelet mean volume (Bld) [Entitic vol]8.3 fLLow9.0-12.7ClevelCoshocton Regional Medical Center on above:Order Comment: Specimen Type: BLOOD SPECIMENOrdering Facility: [facility] Address:[address] [place], [place] [address]Performed By: #### 84708-9 ####[facility] LABCLIA [id number] [place] [address] LABCLIA [id number] [address] [place] [address] [place] AMERICAPlatelets (Bld) [#/Vol]139 10*3/sIPsv485-719UzxsdljaiSamaritan Hospital on above:Order Comment: Specimen Type: BLOOD SPECIMENOrdering Facility: [facility] Address:[address] [place], [place] [address]Performed By: #### 23972- 8 ####[facility] LABCLIA [id number] [place] [address] LABCLIA [id number] [address] [place] [address] [place] AMERICAPlatelets Estimate (Bld) [#/Vol]DecreasedNormalClevelCoshocton Regional Medical Center on above: Order Comment: Specimen Type: BLOOD SPECIMENOrdering Facility: [facility] Address:[address] [place], [place] [address]Performed By: #### 87078- 8 ####[facility] LABCLIA [id number] [facility] [address]HPMWZORNVKETTERING [facility]ALTH [facility] LABCLIA [id number] [address] [place] [address] [place] AMERICAPolychromasia Ql (Bld)SlightNoFirelands Regional Medical Center [facility] on above:Order Comment: Specimen Type: BLOOD SPECIMENOrdering Facility: [facility] Address:[address] [place], [place] [address]Performed By: #### 92771-1 ####[facility]ADLEIDA [facility] LABCLIA [id number] [address] LABCLIA [id number] [address] [place] [address] [place] AMERICARB (Bld) [#/Vol]3.20 10*6/uLLow4.20-6.00[facility] on above:Order Comment: Specimen Type: BLOOD SPECIMENOrdering Facility: [facility] Address:[address] [place], [place] [address]Performed By: #### 96151- 8 ####[facility]ADLEIDA [facility] LABCLIA [id number] [place] [address] LABCLIA [id number] [address] [place] [address] [place] AMERICARED CELL MORPH Reviewed: see results of individual morphologiesOhioHealth Grove City Methodist Hospital Comment on above:Order Comment: Specimen Type: BLOOD SPECIMENOrdering Facility: [facility] Address:[address] [place] [address] Performed By: #### 13891-8 ####[facility]AD[facility]IDA [facility] LABCLIA [id number] [place] [address] LABCLIA [id number] [address] [place] [address] [place] AMERICASPHEROCYTESFewNoACMC Healthcare System GlenbeighComment on above:Order Comment: Specimen Type: BLOOD SPECIMENOrdering Facility: [facility] Address:[address] [place], [place] [address]Performed By: #### 33987- 8 ####[facility] LABCLIA [id number] [place] [address] LABCLIA [id number] [place] [address] [place] AMERICAWBC (Bld) [#/Vol]1.98 10*3/uLLow3.70-11.00[facility] Medical CenterComment on above:Order Comment: Specimen Type: BLOOD SPECIMENOrdering Facility: [facility] Address:[address] [place], [place] [address]Result Comment: No clot detected.Performed By: #### 11600-5 ####[facility] LABCLIA [id number] [address] LABCLIA [id number] [place] [address] [place] AMERICAWBC Left Shift Ql (Bld)PresentNoACMC Healthcare System Glenbeigh Comment on above:Order Comment: Specimen Type: BLOOD SPECIMENOrdering Facility: [facility] Address:[address] [place] [address] Performed By: #### 08985-7 ####[facility] LABCLIA [id number] [place] [address] LABCLIA [id number] [place] [address] [place] AMERICACNOVon 31-17-3838XUOWPabhviPahlsotuq Clinic ClevelandCNOVSPon 05-04-2025 CNOVSPNormalUniversity Hospitals Tripoint Medical CenterComprehensive metabolic 2000 panelon 23-40-5942Scragzz [Mass/Vol]3.9 g/dLNormal3.9-4.9CSamaritan North Health Center Comment on above:Order Comment: Specimen Type: BLOOD SPECIMENOrdering Facility: [facility] Address:[address] [place], [place] [address] Performed By: #### 94977-2 ####[facility] LABCLIA [id number] [address] [place] [address] [place] ALP [Catalytic activity/Vol]113 U/BKrnxao40-743TrkpsocbuSamaritan Hospital on above:Order Comment: Specimen Type: BLOOD SPECIMENOrdering Facility: [facility] Address:[address] [place], [place] [address] Performed By: #### 30224-0 ####[facility] LABCLIA [id number] [place] [address] [place] ALT [Catalytic activity/Vol]17 U/FZbuclc52-50WsgsklxvxSamaritan Hospital on above:Order Comment: Specimen Type: BLOOD SPECIMENOrdering Facility: [facility] Address:[address] [place] [address] Performed By: #### 26073-3 ####[facility] LABCLIA [id number] [place] [address] [place] Anion gap [Moles/Vol]11 mmol/LNormal8-15[facility] on above:Order Comment: Specimen Type: BLOOD SPECIMENOrdering Facility: [facility] Address:[address] [place], [place] [address]Performed By: #### 60360-2 ####[facility] LABCLIA [id number] [address] [address] [place] AMERICAAST [Catalytic activity/Vol]20 U/XBaggeq76-75TybrpmxazSamaritan Hospital on above:Order Comment: Specimen Type: BLOOD SPECIMENOrdering Facility: [facility] Address:[address] [place], [place] [address]Performed By: #### 29193- 8 ####[facility] LABCLIA [id number] [place] [address], [place] [address] [place] AMERICABilirubin [Mass/Vol]0.6 mg/dL Normal0.2-1.3CKettering [facility] Hospital on above:Order Comment: Specimen Type: BLOOD SPECIMENOrdering Facility: [facility] Address:[address] [place], [place] [address]Performed By: #### 16283-1 ####[facility] LABCLIA [id number] [place] [address] [place] AMERICACalcium [Mass/Vol]9.5 mg/dLNormal8.5-10.2ClevelCoshocton Regional Medical Center on above:Order Comment: Specimen Type: BLOOD SPECIMENOrdering Facility: [facility] Address:[address] [place], [place] [address]Performed By: #### 94879-2 ####[facility] LABCLIA [id number] [place] [address] [place] AMERICAChloride [Moles/Vol]100 mmol/OOuoayc79-560NcvlpveqkUniversity Hospitals [facility]point [facility] Center Comment on above:Order Comment: Specimen Type: BLOOD SPECIMENOrdering Facility: [facility] Address:[address] [place] [address] Performed By: #### 61968-9 ####[facility] LABCLIA [id number] [place] [address] [place] CO2 [Moles/Vol]25 mmol/LGphqzx93-50QjrxfoekbSamaritan Hospital on above: Order Comment: Specimen Type: BLOOD SPECIMENOrdering Facility: [facility] Address:[address] [place], [place] [address]Performed By: #### 36687- 8 ####[facility] LABCLIA [id number] [place] [address] [place] AMERICACreatinine [Mass/Vol]0.94 mg/dL Normal0.73-1.22[facility] on above:Order Comment: Specimen Type: BLOOD SPECIMENOrdering Facility: [facility] Address:[address] [place], [place] [address]Performed By: #### 12759-9 ####[facility] LABCLIA [id number] [address] STATES OF AMERICAeGFRcr SerPlBld CKD-EPI 575260 mL/min/1.73m???Normal>=60[facility] on above:Order Comment: Specimen Type: BLOOD SPECIMENOrdering Facility: [facility] Address:[address] [place], [place] [address]Result Comment: Estimated Glomerular Filtration Rate (eGFR) is calculated using the 2020 CKD-EPI cre atinine equation. This equation utilizes serum creatinine, sex, and age as parameters. The creatinine assay has traceable calibration to isotope dilution- mass spectrometry. Refer to KDIGO guidelines for clinical interpretation. In patients with unstable renal function, e.g. those with acute kidney injury, the eGFR may not accurately reflect actual GFR.Performed By: #### 51698-9 ####[facility] LABCLIA [id number] [place] [address] [place] AMERICAGlucose [Mass/Vol]295 mg/dLHigh 74-99[facility] on above:Order Comment: Specimen Type: BLOOD SPECIMENOrdering Facility: [facility] Address:[address] [place], [place] [address]Result Comment: The [place] Diabetes Association (ADA) provides guidance for cutoff values for fasting glucose and random glucose. The ADA defines fasting as no caloric intake for at least 8 hours. Fasting plasma glucose results between 100 to 125 mg/dL indicate increased risk for diabetes (prediabetes).Fasting plasma glucose results greater than or equal to 126 mg/dL meet the criteria for diagnosis of diabetes. In the absence of unequivocal hyperglycemia, results should be confirmed by repeattesting. In a patient with classic symptoms of hyperglycemia or hyperglycemic crisis, random plasmaglucose results greater than or equal to 200 mg/dL meet the criteria for diagnosis of diabetes.Reference: Standards of Medical Care in Diabetes 2016, [place] [employer] Association. Diabetes Care. 2016.39(Suppl 1).Performed By: #### 69661-2 ####[facility] LABIA [id number] [place] [id number] [place] AMERICAPotassium [Moles/Vol]5.0 mmol/L Normal3.7-5.1CKettering Memorial Hospital on above:Order Comment: Specimen Type: BLOOD SPECIMENOrdering Facility: [facility] Address:[address] [place], [place] [address]Performed By: #### 93899-1 ####[facility] LABIA [id number] [place] [address] [place] AMERICAProtein [Mass/Vol]6.3 g/dLNormal6.3-8.0[facility] on above:Order Comment: Specimen Type: BLOOD SPECIMENOrdering Facility: [facility] Address:[address] [place], [place] [address]Performed By: #### 94933-7 ####[facility] [id number] [place] [address] [place] Sodium [Moles/Vol]136 mmol/URqdahq430-110UjkzabnykSamaritan Hospital on above:Order Comment: Specimen Type: BLOOD SPECIMENOrdering Facility: [facility] Address:[address] [place], [place] [address]Performed By: #### 85371-3 ####[facility] LABBRIGHTL[facility] [id number] [place] [address] [place] AMERICAUrea nitrogen [Mass/Vol]17 mg/dLNormal9-24[facility] on above:Order Comment: Specimen Type: BLOOD SPECIMENOrdering Facility: [facility] Address:[address] [place], [place] [address]Performed By: #### 74304- 8 ####[facility] LABIA [id number] [place] [id number] [place] AMERICACBC W Auto Differential panel (Bld)on 54-10-1899Tjiyfvrihcfv Ql (Bld)PresentNormalCSamaritan North Health Center Comment on above:Order Comment: Specimen Type: BLOOD SPECIMENOrdering Facility: [facility] Address:[address] [place] [address] Performed By: #### [id number] ####[facility] LABCLIA [id number] [address] LABCLIA [id number] [place] [address] [place] AMERICABasophils (Bld) [#/Vol]0.00 10*3/uLNormal<0.11CSamaritan North Health Center Comment on above:Order Comment: Specimen Type: BLOOD SPECIMENOrdering Facility: [facility] Address:[address] [place] [address] Performed By: #### [id number] ####[facility] LABCLIA [id number] [address] LABCLIA [id number] [place] [address] [place] AMERICABasophils/100 WBC (Bld)0.0 %NormalUniversity Hospitals Tripoint Medical CenterComment on above:Order Comment: Specimen Type: BLOOD SPECIMENOrdering Facility: [facility] Address:[address] [place], [place] [address]Performed By: #### 76418-6 ####[facility] LABCLIA [id number] [address] LABCLIA [id number] [place] [address] [place] AMERICADifferential cell count method Nom (Bld)ManualNormalCSamaritan North Health CenterComment on above:Order Comment: Specimen Type: BLOOD SPECIMENOrdering Facility: [facility] Address:[address] [place], [place] [address]Performed By: #### 85570-0 ####[facility] LABCLIA [id number] [address] LABCLIA [id number] [place] [address] [place] AMERICAEosinophils (Bld) [#/Vol]0.00 10*3/uLNormal<0.46[facility] on above: Order Comment: Specimen Type: BLOOD SPECIMENOrdering Facility: [facility] Address:[address] [place], [place] [address]Performed By: #### 77751- 8 ####[facility] LABCLIA [id number] [address] LABCLIA [id number] [place] [address] [place] AMERICAEosinophils/100 WBC (Bld)0.0 %NormalSamaritan Hospital on above:Order Comment: Specimen Type: BLOOD SPECIMENOrdering Facility: [facility] Address:[address] [place], [place] [address]Performed By: #### 15449-7 ####[facility] LABCLIA [id number] [address] LABCLIA [id number] [place] [address] [place] AMERICAErythrocyte distribution width (RBC) [Ratio]21.8 %High11.5-15.0[facility] Comment on above:Order Comment: Specimen Type: BLOOD SPECIMENOrdering Facility: [facility] Address:[address] [place] [address] Performed By: #### 05313-9 ####[facility] LABCLIA [id number] [address] LABCLIA [id number] [place] [address] [place] AMERICAHematocrit (Bld) [Volume fraction]30.8 %Low39.0-51.0[facility] on above:Order Comment: Specimen Type: BLOOD SPECIMENOrdering Facility: [facility] Address:[address] [place], [place] [address]Performed By: #### 19842-8 ####[facility] LABIA [id number] [place] [address] LABCLIA [id number] [place] [address] [place] OF AMERICAHemoglobin (Bld) [Mass/Vol]11.0 g/dLLow13.0-17.0[facility] on above:Order Comment: Specimen Type: BLOOD SPECIMENOrdering Facility: [facility] Address:[address] [place], [place] [address]Performed By: #### 98167-5 ####[facility] LABIA [id number] [address] LABIA [id number] [place] [address] [place] AMERICALymphocytes (Bld) [#/Vol]0.43 10*3/uLLow1.00-4.00[facility] on above:Order Comment: Specimen Type: BLOOD SPECIMENOrdering Facility: [facility] Address:[address] [place], [place] [address]Performed By: #### 03875-1 ####[facility] LABIA [id number] [address] LABCLIA [id number] [place] [address] [place] AMERICALymphocytes/100 WBC (Bld)30.4 %NormalSamaritan Hospital on above:Order Comment: Specimen Type: BLOOD SPECIMENOrdering Facility: [facility] Address:[address] [place] [address] Performed By: #### 78469-2 ####[facility] LABIA [id number] [address] [facility] LABCLIA [id number] [place] [id number] [facility] (RBC) [Entitic mass]35.0 fcOijn25.0-34.0[facility] Comment on above:Order Comment: Specimen Type: BLOOD SPECIMENOrdering Facility: [facility] Address:[address] [place] [address] Performed By: #### 39056-1 ####[facility] LABCLIA [id number] [address] LABCLIA [id number] [address] (RBC) [Mass/Vol]35.7 g/hILpcrjh25.5-36.0[facility] Comment on above:Order Comment: Specimen Type: BLOOD SPECIMENOrdering Facility: [facility] Address:[address] [place] [address] Performed By: #### 42617-4 ####[facility] LABCLIA [id number] [address] LABCLIA [id number] [address] (RBC) [Entitic vol]98.1 jFTikhny14.0-100.0[facility] Comment on above:Order Comment: Specimen Type: BLOOD SPECIMENOrdering Facility: [facility] Address:[address] [place] [address] Performed By: #### 38117-9 ####[facility] LABIA [id number] [address] LABCLIA [id number] [address]Monocytes (Bld) [#/Vol]0.25 10*3/uLNormal<0.87[facility] Comment on above:Order Comment: Specimen Type: BLOOD SPECIMENOrdering Facility: [facility] Address:[address] [place] [address] Performed By: #### 85219-3 ####[facility] LABCLIA [id number] [address] LABCLIA [id number] [place] [address] [place] AMERICAMonocytes/100 WBC (Bld)17.9 %NormalSamaritan Hospital on above:Order Comment: Specimen Type: BLOOD SPECIMENOrdering Facility: [facility] Address:[address] [place], [place] [address]Performed By: #### 40680-5 ####[facility] LABCLIA [id number] [address] LABCLIA [id number] [place] [address] [place] AMERICANeutrophils (Bld) [#/Vol]0.72 10*3/uLLow1.45-7.50[facility] on above: Order Comment: Specimen Type: BLOOD SPECIMENOrdering Facility: [facility] Address:[address] [place], [place] [address]Performed By: #### 41651- 8 ####[facility] LABCLIA [id number] [address] LABCLIA [id number] [place] [address] [place] AMERICANeutrophils/100 WBC (Bld)51.7 %NormalSamaritan Hospital on above:Order Comment: Specimen Type: BLOOD SPECIMENOrdering Facility: [facility] Address:[address] [place], [place] [address]Performed By: #### 20694-8 ####[facility] LABCLIA [id number] [address] LABCLIA [id number] [place] [address] [place] OF AMERICANucleated RBC (Bld) [#/Vol]10*3/uLNormal<0.01[facility] on above:Order Comment: Specimen Type: BLOOD SPECIMENOrdering Facility: [facility] Address:[address] [place], [place] [address]Performed By: #### 32737- 8 ####[facility] LABCLIA [id number] [address] LABCLIA [id number] [place] [address] [place] AMERICANucleated RBC/100 WBC (Bld) [Ratio]0.0 /100 WBCNormalCKettering Memorial Hospital on above:Order Comment: Specimen Type: BLOOD SPECIMENOrdering Facility: [facility] Address:[address] [place], [place] [address]Performed By: #### 57903-4 ####[facility] LABCLIA [id number] [place] [address] LABCLIA [id number] [place] [address] [place] AMERICAOvalocytes LM Ql (Bld)FewNormalCKettering Memorial Hospital on above:Order Comment: Specimen Type: BLOOD SPECIMENOrdering Facility: [facility] Address:[address] [place], [place] [address]Performed By: #### 90657-3 ####[facility] LABCLIA [id number] [place] [address] LABCLIA [id number] [place] [address] [place] AMERICAPlatelet mean volume (Bld) [Entitic vol]8.5 fLLow9.0-12.7ClevelCoshocton Regional Medical Center on above:Order Comment: Specimen Type: BLOOD SPECIMENOrdering Facility: [facility] Address:[address] [place], [place] [address]Performed By: #### 82388-2 ####[facility] LABCLIA [id number] [facility], [place] [address]KSYEEKZPFKETTERING [facility]ALTH [facility] LABCLIA [id number] [address] [place] [address] [place] AMERICAPlatelets (Bld) [#/Vol]110 10*3/kYStf137-624IczrvfytuSamaritan Hospital on above:Order Comment: Specimen Type: BLOOD SPECIMENOrdering Facility: [facility] Address:[address] [place], [place] [address]Performed By: #### 57052- 8 ####[facility] LABCLIA [id number] [place], [place] [address]OKDTTOPJQKETTERING [facility] LABCLIA [id number] [address] [place] [address] [place] AMERICAPlatelets Estimate (Bld) [#/Vol]DecreasedNormalCKettering Memorial Hospital on above: Order Comment: Specimen Type: BLOOD SPECIMENOrdering Facility: [facility] Address:[address] [place], [place] [address]Performed By: #### 59074- 8 ####[facility] LABCLIA [id number] [place], [place] [address]NVSVVAOLFKETTERING [facility]ALTH [facility] LABCLIA [id number] [address] [place] [address] [place] AMERICAPolychromasia LM Ql (Bld)SlightNormalCKettering Memorial Hospital on above:Order Comment: Specimen Type: BLOOD SPECIMENOrdering Facility: [facility] Address:[address] [place], [place] [address]Performed By: #### 22505-7 ####[facility] LABCLIA [id number] [place], [place] [address]LSSNSUWILKET[facility]ING [facility]ALTH [facility] LABCLIA [id number] [address] [place] [address] [place] AMERICARBC (Bld) [#/Vol]3.14 10*6/uLLow4.20-6.00[facility] Medical CenterComment on above:Order Comment: Specimen Type: BLOOD SPECIMENOrdering Facility: [facility] Address:[address] [place], [place] [address]Performed By: #### 74874- 8 ####[facility] LABCLIA [id number] [address] LABCLIA [id number] [place] [address] [place] OF AMERICARED CELL MORPH Reviewed: see results of individual morphologiesNoACMC Healthcare System Glenbeigh Comment on above:Order Comment: Specimen Type: BLOOD SPECIMENOrdering Facility: [facility] Address:[address] [place] [address] Performed By: #### 59454-3 ####[facility] LABCLIA [id number] [address] LABCLIA [id number] [place] [address] [place] OF AMERICAWBC (Bld) [#/Vol]1.40 10*3/uLLow3.70-11.00[facility] Comment on above:Order Comment: Specimen Type: BLOOD SPECIMENOrdering Facility: [facility] Address:[address] [place], [place] [address]Result Comment: No clot detected.Performed By: #### 75611-9 ####[facility] LABCLIA [id number] [place] [address] LABCLIA [id number] [address] [address] [place] OF AMERICACNOVSPon 86-34-2032WRMDBVZrvgheOcvnieqew Clinic ClevelandComprehensive metabolic 2000 panelon 29-77-9001Uhhdazd [Mass/Vol]4.0 g/dLNormal3.9-4.9CSamaritan North Health CenterComment on above:Order Comment: Specimen Type: BLOOD SPECIMENOrdering Facility: [facility] Address:[address] [place], [place] [address]Performed By: #### 11097-5 ####[facility] LABCLIA [id number] [place] [address]OKC [Catalytic activity/Vol]112 U/ZLfaqgo76-952WmnraltavSamaritan Hospital on above:Order Comment: Specimen Type: BLOOD SPECIMENOrdering Facility: [facility] Address:[address] [place], [place] [address]Performed By: #### 63915-5 ####[facility] LABCLIA [id number] [place], [place] [address]LLW [Catalytic activity/Vol]19 U/FUoxpuq72-19HvlvdymccSamaritan Hospital on above:Order Comment: Specimen Type: BLOOD SPECIMENOrdering Facility: [facility] Address:[address] [place], [place] [address]Performed By: #### 16395- 8 ####[facility] LABCLIA [id number] ERICA THEOD[facility] DUNCANPAGE HOSPITALFREDYC[place], [place] [address]Qgtpz gap [Moles/Vol]11 mmol/LNormal8-15[facility] on above:Order Comment: Specimen Type: BLOOD SPECIMENOrdering Facility: [facility] Address:[address] [place], [place] [address]Performed By: #### 47026-4 ####[facility] LABCLIA [id number] [place], [place] [address]LBU [Catalytic activity/Vol]20 U/NJhmihx71-90BplahrlutSamaritan Hospital on above:Order Comment: Specimen Type: BLOOD SPECIMENOrdering Facility: [facility] Address:[address] [place], [place] [address]Performed By: #### 27180-0 ####[facility] LABCLIA [id number] [facility] [place] [address] Bilirubin [Mass/Vol]0.6 mg/dLNormal0.2-1.3CKettering Memorial Hospital on above:Order Comment: Specimen Type: BLOOD SPECIMENOrdering Facility: [facility] Address:[address] [place], [place] [address]Performed By: #### 38241-0 ####[facility] LABCLIA [id number] [facility] CENTERARTHURCHARLOTT[place], [place] [address]Pmjekgq [Mass/Vol]9.4 mg/dLNormal8.5-10.2CKettering Memorial Hospital on above:Order Comment: Specimen Type: BLOOD SPECIMENOrdering Facility: [facility] Address:[address] [place], [place] [address]Performed By: #### 28480-4 ####[facility] LABCLIA [id number] [place], [place] [address]Mckwjuir [Moles/Vol]100 mmol/FQdbpqf07-009QrbkasasrSamaritan Hospital on above: Order Comment: Specimen Type: BLOOD SPECIMENOrdering Facility: [facility] Address:[address] [place], [place] [address]Performed By: #### 25227- 8 ####[facility] LABCLIA [id number] [facility] [place], [place] [address]XH0 [Moles/Vol]27 mmol/FEeerfx27-84IupsayhdbSamaritan Hospital on above:Order Comment: Specimen Type: BLOOD SPECIMENOrdering Facility: [facility] Address:[address] [place], [place] [address]Performed By: #### 00391-2 ####[facility] LABCLIA [id number] [place], [place] [address]Xrvjurumsd [Mass/Vol]1.09 mg/dL Normal0.73-1.22[facility] on above:Order Comment: Specimen Type: BLOOD SPECIMENOrdering Facility: [facility] Address:[address] [place], [place] [address]Performed By: #### 17150-9 ####[facility] LABCLIA [id number] [place], [place] [address]tANZle SerPlBld CKD-EPI 105670 mL/min/1.73m???Normal>=60 [facility] on above:Order Comment: Specimen Type: BLOOD SPECIMENOrdering Facility: [facility] Address:[address] [place], [place] [address]Result Comment: Estimated Glomerular Filtration Rate (eGFR) is calculated using the 2020 CKD-EPI creatinine equation. This equation utilizes serum creatinine, sex, and age as parameters. The creatinine assay has traceable calibration to isotope dilution-mass spectrometry. Refer to KDIGO guidelines for clinical interpretation. In patients with unstable renal function, e.g. those with acute kidney injury, the eGFR may not accurately reflect actual GFR.Performed By: #### 99141-8 ####[facility] LABCLIA [id number] [place], [place] [address]Ytvnznd [Mass/Vol]312 mg/oAYkqn73-04TrabdtcdnSamaritan Hospital on above:Order Comment: Specimen Type: BLOOD SPECIMENOrdering Facility: [facility] Address:[address] [place] [address] Comment: The [place] Diabetes Association (ADA) provides guidance for cutoff values for fast ing glucose and random glucose. The ADA defines fasting as no caloric intake for at least 8 hours. Fasting plasma glucose results between 100 to 125 mg/dL indicate increased risk for diabetes (prediabetes).Fasting plasma glucose results greater than or equal to 126 mg/dL meet the criteria for diagnosis of diabetes. In the absence of unequivocal hyperglycemia, results should be confirmed by repeattesting. In a patient with classic symptoms of hyperglycemia or hyperglycemic crisis, random plasmaglucose results greater than or equal to 200 mg/dL meet the criteria for diagnosis of diabetes.Reference: Standards of Medical Care in Diabetes 2016, [place] [employer]. Diabetes Care. 2016.39(Suppl 1).Performed By: #### 37694-0 ####[facility] LABCLIA [id number] [place], [place] [address]Pgegricac [Moles/Vol]4.3 mmol/LNormal3.7-5.1CKettering Memorial Hospital on above: Order Comment: Specimen Type: BLOOD SPECIMENOrdering Facility: [facility] Address:[address] [place], [place] [address]Performed By: #### 68327- 8 ####[facility] LABCLIA [id number] [place], [place] [address]Tipbguy [Mass/Vol]6.3 g/dLNormal6.3-8.0[facility] on above:Order Comment: Specimen Type: BLOOD SPECIMENOrdering Facility: [facility] Address:[address] [place], [place] [address]Performed By: #### 20818-9 ####[facility] LABCLIA [id number] [place], [place] [address]Nmsinl [Moles/Vol]138 mmol/L Fdcggk737-233DgrblscmySamaritan Hospital on above:Order Comment: Specimen Type: BLOOD SPECIMENOrdering Facility: [facility] Address:[address] [place], [place] [address]Performed By: #### 60139-5 ####[facility] LABCLIA [id number] [place] [address] Urea nitrogen [Mass/Vol]20 mg/dLNormal9-24[facility] on above:Order Comment: Specimen Type: BLOOD SPECIMENOrdering Facility: [facility] Address:[address] [place], [place] [address]Performed By: #### 37981-3 ####[facility] LABIA [id number] [place], [place] [address]QGAJjq 99-30-3523OUCIHzzcxcOzxbwhtql Clinic ClevelandCBC W Auto Differential panel (Bld)on 07-22-8695Nnhkcpkng (Bld) [#/Vol] NINFCleveland ClinicBasophils/100 WBC (Bld)0.0 %[facility] HospitalDifferential cell count method Nom (Bld)AutoCleveland ClinicEosinophils (Bld) [#/Vol]NINF [facility] HospitalEosinophils/100 WBC (Bld)0.9 %[facility] HospitalErythrocyte distribution width (RBC) [Ratio]19.3 %High11.5 - 15.0 %[facility] Hematocrit (Bld) [Volume fraction]30.8 %Low39.0 - 51.0 %[facility] Hemoglobin (Bld) [Mass/Vol]10.9 g/dLLow13.0 - 17.0 g/dLWood County HospitalImmature granulocytes (Bld) [#/Vol]NINFClevelMercy Health St. Elizabeth Youngstown HospitalImmature granulocytes/100 WBC (Bld)0.9 %[facility] County HospitalInterpretation and review of laboratory results AbnormalWood County HospitalLymphocytes (Bld) [#/Vol]0.42 10*3/uLSt. [facility] Lymphocytes/100 WBC (Bld)36.2 %[facility] CenterH (RBC) [Entitic mass]33.4 pg 26.0 - 34.0 pgCLakeHealth TriPoint Medical CenterHC (RBC) [Mass/Vol]35.4 g/dL30.5 - 36.0 g/dL [facility] CenterV (RBC) [Entitic vol]94.5 fL80.0 - 100.0 fLCLancaster Municipal Hospital Monocytes (Bld) [#/Vol]0.20 10*3/uLNINFWood County HospitalMonocytes/100 WBC (Bld) 17.2 %[facility] County HospitalNeutrophils (Bld) [#/Vol]0.52 10*3/uLSt. [facility] Neutrophils/100 WBC (Bld)44.8 %[facility] HospitalNucleated RBC (Bld) [#/Vol]NINF [facility] HospitalNucleated RBC/100 WBC (Bld) [Ratio]0.0 %/100 WBCWood County Hospital Platelet mean volume (Bld) [Entitic vol]9.3 fL9.0 - 12.7 fLCLancaster Municipal Hospital Platelets (Bld) [#/Vol]41 10*3/uLSt. Mary's Medical Center, [facility]onton CampusComment on above:No clot detected.RBC (Bld) [#/Vol]3.26 10*6/uLLow4.20 - 6.00 m/uLWood County HospitalWBC (Bld) [#/Vol]1.16 10*3/uLLowWyandot Memorial Hospital on above:No clot detected. ANC=0.52 The following results were reported as preliminary values due to instrument flagging. Interpret with caution. Final results may vary. Results requested and read back by: Awa FREGOSO/GENTRY/NCC/8.27.25\10:26\TODDOHJONNIE This is an appended report. These results have been appended to a previously verified report.[facility] YoungstownBasophils (Bld) [#/Vol]10*3/uL Normal<0.11CKettering Memorial Hospital on above:Order Comment: Specimen Type: BLOOD SPECIMENOrdering Facility: [facility] Address:[address] [place], [place] [address]Performed By: #### 49935-0 ####[facility] LABIA [id number] [address] LABCLIA [id number] [place] [address] [place] AMERICABasophils/100 WBC (Bld)0.0 % NormalSamaritan Hospital on above:Order Comment: Specimen Type: BLOOD SPECIMENOrdering Facility: [facility] Address:[address] [place], [place] [address]Performed By: #### 08445-9 ####[facility] LABCLIA [id number] [address] LABCLIA [id number] [place] [address] [place] AMERICADifferential cell count method Nom (Bld)AutoNormal [facility] on above:Order Comment: Specimen Type: BLOOD SPECIMENOrdering Facility: [facility] Address:[address] [place], [place] [address]Performed By: #### 74617-5 ####[facility] LABIA [id number] [address] LABCLIA [id number] [place] [id number] [place] AMERICAEosinophils (Bld) [#/Vol]10*3/uLNormal<0.46[facility] on above:Order Comment: Specimen Type: BLOOD SPECIMENOrdering Facility: [facility] Address:[address] [place], [place] [address]Performed By: #### 68323-1 ####[facility] LABCLIA [id number] [address] LABCLIA [id number] [place] [address] [place] AMERICAEosinophils/100 WBC (Bld)0.9 %NormalSamaritan Hospital on above:Order Comment: Specimen Type: BLOOD SPECIMENOrdering Facility: [facility] Address:[address] [place], [place] [address]Performed By: #### 63168-0 ####[facility] LABCLIA [id number] [address] LABCLIA [id number] [place] [address] [place] AMERICAErythrocyte distribution width (RBC) [Ratio]19.3 %High11.5-15.0[facility] on above:Order Comment: Specimen Type: BLOOD SPECIMENOrdering Facility: [facility] Address:[address] [place], [place] [address]Performed By: #### 12445-2 ####[facility] LABIA [id number] [place] [address] LABCLIA [id number] [place] [address] [place] AMERICAHematocrit (Bld) [Volume fraction]30.8 %Low39.0-51.0 [facility] on above:Order Comment: Specimen Type: BLOOD SPECIMENOrdering Facility: [facility] Address:[address] [place], [place] [address]Performed By: #### 13220-5 ####[facility] LABCLIA [id number] [place] [address] LABCLIA [id number] [address] [address] [place] AMERICAHemoglobin (Bld) [Mass/Vol]10.9 g/dLLow13.0-17.0 [facility] on above:Order Comment: Specimen Type: BLOOD SPECIMENOrdering Facility: [facility] Address:[address] [place], [place] [address]Performed By: #### 01035-7 ####[facility] LABCLIA [id number] [address] LABCLIA [id number] [place] [address] [place] AMERICAImmature granulocytes (Bld) [#/Vol]10*3/uLNormal<0.10 [facility] on above:Order Comment: Specimen Type: BLOOD SPECIMENOrdering Facility: [facility] Address:[address] [place], [place] [address]Performed By: #### [id number] ####[facility] LABCLIA [id number] [place] [id number] LABCLIA [id number] [place] [id number] [place] AMERICAImmature granulocytes/100 WBC (Bld)0.9 %NormalSamaritan Hospital on above:Order Comment: Specimen Type: BLOOD SPECIMENOrdering Facility: [facility] Address:[address] [place], [place] [address]Performed By: #### [id number] ####[facility] LABCLIA [id number] [address] LABCLIA [id number] [place] [id number] [place] AMERICALymphocytes (Bld) [#/Vol]0.42 10*3/uLLow1.00-4.00 [facility] CenterComment on above:Order Comment: Specimen Type: BLOOD SPECIMENOrdering Facility: [facility] Address:[address] [place], [place] [address]Performed By: #### [id number] ####[facility] LABCLIA [id number] [address] LABCLIA [id number] [place] [address] [place] AMERICALymphocytes/100 WBC (Bld)36.2 %NormalUniversity Hospitals Tripoint Medical CenterComment on above:Order Comment: Specimen Type: BLOOD SPECIMENOrdering Facility: [facility] HOSPITAL Address:[address] [place], [place] [address]Performed By: #### 77701-4 ####[facility] LABCLIA [id number] [address] LABCLIA [id number] [address] (RBC) [Entitic mass]33.4 wjUnfspd30.0-34.0[facility] Comment on above:Order Comment: Specimen Type: BLOOD SPECIMENOrdering Facility: [facility] Address:[address] [place] [address] Performed By: #### 36482-4 ####[facility] LABIA [id number] [address] LABCLIA [id number] [address] (RBC) [Mass/Vol]35.4 g/gJQkhvyn70.5-36.0[facility] Comment on above:Order Comment: Specimen Type: BLOOD SPECIMENOrdering Facility: [facility] Address:[address] [place] [address] Performed By: #### 04014-6 ####[facility] LABCLIA [id number] [place] [address] LABCLIA [id number] [place] [address] [place] OF AMERICAMCV (RBC) [Entitic vol]94.5 sJUytyhz38.0-100.0[facility] Comment on above:Order Comment: Specimen Type: BLOOD SPECIMENOrdering Facility: [facility] Address:[address] [place] [address] Performed By: #### 83801-4 ####[facility] LABCLIA [id number] [address] LABCLIA [id number] [place] [address] [place] OF AMERICAMonocytes (Bld) [#/Vol]0.20 10*3/uLNormal<0.87[facility] Comment on above:Order Comment: Specimen Type: BLOOD SPECIMENOrdering Facility: [facility] Address:[address] [place] [address] Performed By: #### 19460-5 ####[facility] LABCLIA [id number] [place] [address] LABCLIA [id number] [place] [address] [place] AMERICAMonocytes/100 WBC (Bld)17.2 %NormalUniversity Hospitals Tripoint Medical CenterComment on above:Order Comment: Specimen Type: BLOOD SPECIMENOrdering Facility: [facility] Address:[address] [place], [place] [address]Performed By: #### 27943-5 ####[facility] LABCLIA [id number] [address] LABCLIA [id number] [place] [id number] [place] OF AMERICANeutrophils (Bld) [#/Vol]0.52 10*3/uLLow1.45-7.50[facility] on above: Order Comment: Specimen Type: BLOOD SPECIMENOrdering Facility: [facility] Address:[address] [place], [place] [address]Performed By: #### 28989- 8 ####[facility] LABCLIA [id number] [address] LABCLIA [id number] [place] [address] [place] AMERICANeutrophils/100 WBC (Bld)44.8 %NormalSamaritan Hospital on above:Order Comment: Specimen Type: BLOOD SPECIMENOrdering Facility: [facility] Address:[address] [place], [place] [address]Performed By: #### 35576-8 ####[facility] LABCLIA [id number] [address] LABCLIA [id number] [place] [address] [place] AMERICANucleated RBC (Bld) [#/Vol]10*3/uLNormal<0.01[facility] on above:Order Comment: Specimen Type: BLOOD SPECIMENOrdering Facility: [facility] Address:[address] [place], [place] [address]Performed By: #### 77882- 8 ####[facility] LABCLIA [id number] [address] LABCLIA [id number] [place] [address] [place] AMERICANucleated RBC/100 WBC (Bld) [Ratio]0.0 /100 WBCNormalCKettering Memorial Hospital on above:Order Comment: Specimen Type: BLOOD SPECIMENOrdering Facility: [facility] Address:[address] [place], [place] [address]Performed By: #### 61583-2 ####[facility] LABCLIA [id number] [place] [address] LABCLIA [id number] [place] [address] [place] OF AMERICAPlatelet mean volume (Bld) [Entitic vol]9.3 fLNormal9.0-12.7CSamaritan North Health CenterCommclaren greater [facility] on above:Order Comment: Specimen Type: BLOOD SPECIMENOrdering Facility: [facility] Address:[address] [place] [address] Performed By: #### 91509-6 ####[facility] LABCLIA [id number] [address] LABCLIA [id number] [place] [address] [place] AMERICAPlatelets (Bld) [#/Vol]41 10*3/tHEco071-033VoasccrxtUniversity Hospitals [facility] Comment on above:Order Comment: Specimen Type: BLOOD SPECIMENOrdering Facility: [facility] Address:[address] [place], [place] [address]Result Comment: No clot detected.Performed By: #### 35566-6 ####[facility] LABIA [id number] [address] LABCLIA [id number] [place] [address] [place] AMERICARB (Bld) [#/Vol]3.26 10*6/uLLow4.20-6.00[facility] CenterCommclaren greater [facility] on above:Order Comment: Specimen Type: BLOOD SPECIMENOrdering Facility: [facility] Address:[address] [place], [place] [address]Performed By: #### 31441-6 ####[facility] LABCLIA [id number] [place], [place] [address] LABCLIA [id number] [place] [address] [place] OF AMERICAWBC (Bld) [#/Vol]1.16 10*3/uLLow3.70-11.00[facility] CenterComment on above:Order Comment: Specimen Type: BLOOD SPECIMENOrdering Facility: [facility] Address:[facility] [place], [place] [address]Result Comment: No clot detected.Performed By: #### 97135-6 ####[facility] LABCLIA [id number] [place], [place] [address]QARZHRKSJKETTERING [facility]ALTH [facility] LABCLIA [id number] [place] [address] [place] STATES OF AMERICACNOVSPon 50-98-2741VNFBOJCyeoxwQszuweyvz Clinic ClevelandComprehensive metabolic 2000 panelOrdered By: Kaushik Gonzalez on 69-80-2385Ibifxvl [Mass/Vol]4.1 g/dL3.9 - 4.9 g/dLSaint Croix Falls ClinicALP [Catalytic activity/Vol]131 U/LHigh38 - 113 U/LCleveland ClinicALT [Catalytic activity/Vol]12 U/L10 - 54 U/LCleveland ClinicAnion gap [Moles/Vol]12 mmol/L8 - 15 mmol/LCleveland ClinicAST [Catalytic activity/Vol]16 U/L14 - 40 U/LCleveland ClinicBilirubin [Mass/Vol]0.9 mg/dL0.2 - 1.3 mg/dL [facility] HospitalCalcium [Mass/Vol]10.0 mg/dL8.5 - 10.2 mg/dLWood County Hospital Chloride [Moles/Vol]98 mmol/L98 - 107 mmol/LCleveland ClinicCO2 [Moles/Vol]27 mmol/L22 - 30 mmol/LCleveland ClinicCreatinine [Mass/Vol]1.05 mg/dL0.73 - 1.22 mg/dLWood County HospitalGFR/1.73 sq M.predicted among non-blacks MDRD (S/P/Bld) [Vol rate/Area]70 mL/min/{1.73_m2}- PINFCKettering Health – Soin Medical Center on above: Estimated Glomerular Filtration Rate (eGFR) is calculated using the 2020 CKD-EPI creatinine equation. This equation utilizes serum creatinine, sex, and age as parameters. The creatinine assay has traceable calibration to isotope dilution- mass spectrometry. Refer to KDIGO guidelines for clinical interpretation. In patients with unstable renal function, e.g. those with acute kidney injury, the eGFRmay not accurately reflect actual GFR.Glucose [Mass/Vol]301 mg/xQUqxb29 - 99 mg/dLWyandot Memorial Hospital on above:The [place] Diabetes Association (ADA) provides guidance for cutoff values for fasting glucose andrandom glucose. The ADA defines fasting as no caloric intake for at least 8 hours. Fasting plasma gl ucose results between 100 to 125 mg/dL indicate [...] 2016.39(Suppl 1). Interpretation and review of laboratory resultsAbnormalCleveland ClinicPotassium [Moles/Vol]4.5 mmol/L3.7 - 5.1 mmol/LCadena regional medical center ClinicProtein [Mass/Vol]6.4 g/dL 6.3 - 8.0 g/dLPremier Health Upper Valley Medical Centerodium [Moles/Vol]137 mmol/L136 - 144 mmol/L [facility] County HospitalUrea nitrogen [Mass/Vol]28 mg/dLHigh9 - 24 mg/dLUniversity Hospitals Elyria Medical CenterComprehensive metabolic 2000 panelon 03-59-2826Fvmgcqm [Mass/Vol]4.1 g/dLNormal3.9-4.9CKettering Memorial Hospital on above:Order Comment: Specimen Type: BLOOD SPECIMENOrdering Facility: [facility] Address:182[facility], [place] [address]Imreqkzfw By: #### 35809- 8, 26397-5 ####[facility] LABCLIA [id number] [facility], [place] [address]MAL [Catalytic activity/Vol]131 U/YGubc77-698 [facility] on above:Order Comment: Specimen Type: BLOOD SPECIMENOrdering Facility: [facility] Address:[address] [place], [place] [address]Performed By: #### 06900-9, ####[facility] LABCLIA [id number] [facility] [place], [place] [address]OWY [Catalytic activity/Vol]12 U/SGlhrbg63-62BhzdjqsqiSamaritan Hospital on above:Order Comment: Specimen Type: BLOOD SPECIMENOrdering Facility: [facility] Address:[address] [place], [place] [address]Performed By: #### 28741-5, ####[facility] LABCLIA [id number] [place], [place] [address]Mzyhz gap [Moles/Vol]12 mmol/LNormal8-15 [facility] on above:Order Comment: Specimen Type: BLOOD SPECIMENOrdering Facility: [facility] Address:[address] [place], [place] [address]Performed By: #### 54346-5, ####[facility] ROADLEIDA [facility] LABCLIA [id number] [facility] [place] [address]CJJ [Catalytic activity/Vol]16 U/YHlfgum25-28ZadmrjyteSamaritan Hospital on above:Order Comment: Specimen Type: BLOOD SPECIMENOrdering Facility: [facility] Address:[address] [place], [place] [address]Performed By: #### 59748-4, ####[facility] LABCLIA [id number] [place], [place] [address]Meqgwfzsn [Mass/Vol]0.9 mg/dLNormal0.2-1.3 [facility] on above:Order Comment: Specimen Type: BLOOD SPECIMENOrdering Facility: [facility] Address:[address] [place], [place] [address]Performed By: #### 95610-7, 20572-2 ####[facility] LABCLIA [id number] [place], [place] [address]Unlnsgk [Mass/Vol]10.0 mg/dLNormal8.5-10.2CKettering Memorial Hospital on above: Order Comment: Specimen Type: BLOOD SPECIMENOrdering Facility: [facility] Address:[address] [place], [place] [address]Performed By: #### 87565- 8, ####[facility] LABCLIA [id number] [place], [place] [address]Izobhjxq [Moles/Vol]98 mmol/JSppzdx79-605FjzkwbwwuSamaritan Hospital on above:Order Comment: Specimen Type: BLOOD SPECIMENOrdering Facility: [facility] Address:[address] [place], [place] [address]Performed By: #### 08111-2, ####[facility] LABCLIA [id number] [place], [place] [address]OL6 [Moles/Vol]27 mmol/LAsvryy29-95CwjdqpqamSamaritan Hospital on above:Order Comment: Specimen Type: BLOOD SPECIMENOrdering Facility: [facility] Address:[address] [place], [place] [address]Performed By: #### 25772- 8, ####[facility] LABCLIA [id number] [place], [place] [address]Vdgddcstpn [Mass/Vol]1.05 mg/dLNormal0.73-1.22 [facility] on above:Order Comment: Specimen Type: BLOOD SPECIMENOrdering Facility: [facility] Address:[address] [place], [place] [address]Performed By: #### 98882-2, 65564-6 ####[facility] LABCLIA [id number] [place], [place] [address]rBUUyu SerPlBld CKD-EPI 721775 mL/min/1.73m???Normal>=60[facility] Comment on above:Order Comment: Specimen Type: BLOOD SPECIMENOrdering Facility: [facility] Address:[address] [place], [place] [address]Result Comment: Estimated Glomerular Filtration Rate (eGFR) is calculated using the 2020 CKD-EPI creatinine equation. This equation utilizes serum creatinine, sex, and age as parameters. The creatinine assay has traceable calibration to isotope dilution-mass spectrometry. Refer to KDIGO guidelines for clinical interpretation. In patients with unstable renal function, e.g. those with acute kidney injury, the eGFR may not accurately reflect actual GFR.Performed By: #### 12862-6, 27860-0 ####[facility] LABCLIA [id number] [place], [place] [address]Digtzdj [Mass/Vol]301 mg/pSQeso89-87 [facility] on above:Order Comment: Specimen Type: BLOOD SPECIMENOrdering Facility: [facility] Address:[address] [place], [place] [address]Result Comment: The [place] Diabetes Association (ADA) provides guidance for cutoff values for fasting glucose and random glucose. The ADA defines fasting as no caloric intake for at least 8 hours. Fasting plasma glucose results between 100 to 125 mg/dL indicate increased risk for diabetes (prediabetes).Fasting plasma glucose results greater than or equal to 126 mg/dL meet the criteria for diagnosis of diabetes. In the absence of unequivocal hyperglycemia, results should be confirmed by repeattesting. In a patient with classic symptoms of hyperglycemia or hyperglycemic crisis, random plasmaglucose results greater than or equal to 200 mg/dL meet the criteria for diagnosis of diabetes.Reference: Standards of Medical Care in Diabetes 2016, [place] Diabetes Association. Diabetes Care. 2016.39(Suppl 1).Performed By: #### 95243- 8, ####[facility] LABCLIA [id number] [place], [place] [address]Rekeqjbrx [Moles/Vol]4.5 mmol/LNormal3.7-5.1 [facility] on above:Order Comment: Specimen Type: BLOOD SPECIMENOrdering Facility: [facility] Address:[address] [place], [place] [address]Performed By: #### 23994-8, ####[facility] LABCLIA [id number] [place], [place] [address]Zdcfnvr [Mass/Vol]6.4 g/dLNormal6.3-8.0[facility] on above:Order Comment: Specimen Type: BLOOD SPECIMENOrdering Facility: [facility] Address:[address] [place], [place] [address]Performed By: #### 04778- 8, ####[facility] LABCLIA [id number] [place], [place] [address]Jwbovp [Moles/Vol]137 mmol/IKhcrzu885-891QualecoewSamaritan Hospital on above:Order Comment: Specimen Type: BLOOD SPECIMENOrdering Facility: [facility] Address:[address] [place], [place] [address]Performed By: #### 63295-2, ####[facility] LABCLIA [id number] [place], [place] [address]Hsgc nitrogen [Mass/Vol]28 mg/dLHigh9-24[facility] on above: Order Comment: Specimen Type: BLOOD SPECIMENOrdering Facility: [facility] Address:[address] [place], [place] [address]Performed By: #### 33391- 8, ####[facility] LABCLIA [id number] [place], [place] [address]LIDNFCISVzk 39-86-1225Raiznmequ [Mass/Vol]1.6 mg/dL Low1.7 - 2.3 mg/dLWood County HospitalMagnesium SerPl-mCncon 73-98-1411Ejwfqjeyd [Mass/Vol]1.6 mg/dLLow1.7-2.3CKettering Memorial Hospital on above:Order Comment: Specimen Type: BLOOD SPECIMENOrdering Facility: [facility] Address:[address] [place], [place] [address]Performed By: #### 05404- 8, 45885-5 ####[facility] LABCLIA [id number] [place], [place] [address]Xjrwxbsnz [Mass/Vol]on 56-43-4743Ddjoixxzeegbsq and review of laboratory resultsAbnoSt. Charles Hospital W Auto Differential panel (Bld)on 97-26-6897Jawrotgzqjwp Ql (Bld)PresentNormalCKettering Memorial Hospital on above:Order Comment: Specimen Type: BLOOD SPECIMENOrdering Facility: [facility] Address:[address] [place], [place] [address]Performed By: #### 43700-0 ####[facility] LABCLIA [id number] [place] [address] LABCLIA [id number] [address] [address] [place] OF AMERICABasophils (Bld) [#/Vol]0.00 10*3/uLNormal<0.11CKettering Memorial Hospital on above:Order Comment: Specimen Type: BLOOD SPECIMENOrdering Facility: [facility] Address:[address] [place], [place] [address]Performed By: #### 81930-0 ####[facility] LABCLIA [id number] [place] [address] LABCLIA [id number] [address] [address] [place] AMERICABasophils/100 WBC (Bld)0.0 %NormalSamaritan Hospital on above:Order Comment: Specimen Type: BLOOD SPECIMENOrdering Facility: [facility] Address:[address] [place], [place] [address]Performed By: #### 63021-8 ####[facility] LABCLIA [id number] [place] [address] LABCLIA [id number] [place] [address] [place] AMERICADifferential cell count method Nom (Bld)ManualNormalCKettering Memorial Hospital on above:Order Comment: Specimen Type: BLOOD SPECIMENOrdering Facility: [facility] Address:[address] [place], [place] [address]Performed By: #### 91733-6 ####[facility] LABCLIA [id number] [address] LABCLIA [id number] [place] [address] [place] AMERICAEosinophils (Bld) [#/Vol]0.00 10*3/uLNormal<0.46[facility] on above:Order Comment: Specimen Type: BLOOD SPECIMENOrdering Facility: [facility] Address:[address] [place], [place] [address]Performed By: #### 17575-6 ####[facility] LABCLIA [id number] [address] LABCLIA [id number] [place] [address] [place] AMERICAEosinophils/100 WBC (Bld)0.0 %NormalSamaritan Hospital on above:Order Comment: Specimen Type: BLOOD SPECIMENOrdering Facility: [facility] Address:[address] [place], [place] [address]Performed By: #### 79511-5 ####[facility] LABCLIA [id number] [address] LABCLIA [id number] [place] [address] [place] AMERICAErythrocyte distribution width (RBC) [Ratio]19.3 %High11.5-15.0[facility] Comment on above:Order Comment: Specimen Type: BLOOD SPECIMENOrdering Facility: [facility] Address:[address] [place] [address] Performed By: #### 19049-0 ####[facility]ADLEIDA [facility] LABCLIA [id number] [address] LABCLIA [id number] [place] [address] [place] AMERICAHematocrit (Bld) [Volume fraction]32.2 %Low39.0-51.0[facility] on above:Order Comment: Specimen Type: BLOOD SPECIMENOrdering Facility: [facility] Address:[address] [place], [place] [address]Performed By: #### 35345-3 ####[facility] LABCLIA [id number] [address] LABCLIA [id number] [place] [address] [place] AMERICAHemoglobin (Bld) [Mass/Vol]11.5 g/dLLow13.0-17.0[facility] on above:Order Comment: Specimen Type: BLOOD SPECIMENOrdering Facility: [facility] Address:[address] [place], [place] [address]Performed By: #### 09796-7 ####[facility] LABCLIA [id number] [address] LABCLIA [id number] [place] [address] [place] AMERICALymphocytes (Bld) [#/Vol]0.44 10*3/uLLow1.00-4.00[facility] on above:Order Comment: Specimen Type: BLOOD SPECIMENOrdering Facility: [facility] Address:[address] [place], [place] [address]Performed By: #### 32687-3 ####[facility] LABCLIA [id number] [place] [address] LABCLIA [id number] [place] [address] [place] [facility] HOSPITALLymphocytes/100 WBC (Bld)32.8 %NormalUniversity Hospitals Tripoint Medical CenterComment on above:Order Comment: Specimen Type: BLOOD SPECIMENOrdering Facility: [facility] Address:[address] [place] [address] Performed By: #### 54800-3 ####[facility]ADLEIDA [facility] LABCLIA [id number] [address] LABCLIA [id number] [address] (RBC) [Entitic mass]33.4 unGltggu49.0-34.0[facility] Comment on above:Order Comment: Specimen Type: BLOOD SPECIMENOrdering Facility: [facility] Address:[address] [place] [address] Performed By: #### 80625-1 ####[facility] LABCLIA [id number] [place] [address] LABCLIA [id number] [place] [address] [facility]MCH[facility] (RBC) [Mass/Vol]35.7 g/jVZfxogr20.5-36.0[facility] Comment on above:Order Comment: Specimen Type: BLOOD SPECIMENOrdering Facility: [facility] Address:[address] [place] [address] Performed By: #### 73832-4 ####[facility] LABCLIA [id number] [place] [address] LABCLIA [id number] [place] [id number] [place] [facility] CENTERV (RBC) [Entitic vol]93.6 aYWnnuhp79.0-100.0[facility] Comment on above:Order Comment: Specimen Type: BLOOD SPECIMENOrdering Facility: [facility] Address:[address] [place] [address] Performed By: #### 43216-4 ####[facility] LABCLIA [id number] [address] LABCLIA [id number] [place] [address] [place] AMERICAMonocytes (Bld) [#/Vol]0.25 10*3/uLNormal<0.87[facility] Comment on above:Order Comment: Specimen Type: BLOOD SPECIMENOrdering Facility: [facility] Address:[address] [place] [address] Performed By: #### 93635-0 ####[facility] LABCLIA [id number] [address] LABCLIA [id number] [place] [address] [place] AMERICAMonocytes/100 WBC (Bld)18.3 %NormalUniversity Hospitals Tripoint Medical CenterComment on above:Order Comment: Specimen Type: BLOOD SPECIMENOrdering Facility: [facility] Address:[address] [place], [place] [address]Performed By: #### 19388-6 ####[facility] LABCLIA [id number] [address] LABCLIA [id number] [place] [address] [place] AMERICANeutrophils (Bld) [#/Vol]0.66 10*3/uLLow1.45-7.50[facility] on above: Order Comment: Specimen Type: BLOOD SPECIMENOrdering Facility: [facility] Address:[address] [place], [place] [address]Performed By: #### 04751- 8 ####[facility] LABCLIA [id number] [place] [address] LABCLIA [id number] [place] [id number] [place] AMERICANeutrophils/100 WBC (Bld)48.9 %NormalSamaritan Hospital on above:Order Comment: Specimen Type: BLOOD SPECIMENOrdering Facility: [facility] Address:[address] [place], [place] [address]Performed By: #### 41606-1 ####[facility] LABCLIA [id number] [address] LABCLIA [id number] [place] [address] [place] AMERICANucleated RBC (Bld) [#/Vol]0.01 10*3/uLHigh<0.01[facility] on above: Order Comment: Specimen Type: BLOOD SPECIMENOrdering Facility: [facility] Address:[address] [place], [place] [address]Performed By: #### 05342- 8 ####[facility] LABCLIA [id number] [address] LABCLIA [id number] [place] [address] [place] AMERICANucleated RBC/100 WBC (Bld) [Ratio]0.9 /100 WBCNoFirelands Regional Medical Center [facility] on above:Order Comment: Specimen Type: BLOOD SPECIMENOrdering Facility: [facility] Address:[address] [place], [place] [address]Performed By: #### 45338-6 ####[facility] LABCLIA [id number] [address] LABCLIA [id number] [place] [address] [place] AMERICAOvalocytes LM Ql (Bld)FewNormMercy Health Lorain Hospital on above:Order Comment: Specimen Type: BLOOD SPECIMENOrdering Facility: [facility] Address:[address] [place], [place] [address]Performed By: #### 47886-4 ####[facility] LABCLIA [id number] [place] [id number] LABCLIA [id number] [place] [id number] [place] OF AMERICAPlatelet mean volume (Bld) [Entitic vol]9.2 fLNormal9.0-12.7CK[facility] on above:Order Comment: Specimen Type: BLOOD SPECIMENOrdering Facility: [facility] Address:[address] [place] [address] Performed By: #### 04240-4 ####[facility] LABCLIA [id number] [address] LABCLIA [id number] [place] [address] [place] AMERICAPlatelets (Bld) [#/Vol]33 10*3/[id number] Hospitals [facility] Comment on above:Order Comment: Specimen Type: BLOOD SPECIMENOrdering Facility: [facility] HOSPITAL Address:[address] [place], [place] [address]Result Comment: No clot detected.Performed By: #### 54377-4 ####[facility] LABCLIA [id number] [address] LABCLIA [id number] [place] [address] [place] OF AMERICAPlatelets Estimate (Bld) [#/Vol]DecreasedNormal [facility] on above:Order Comment: Specimen Type: BLOOD SPECIMENOrdering Facility: [facility] Address:[address] [place], [place] [address]Performed By: #### 60724-6 ####[facility] LABCLIA [id number] [address] [facility] LABCLIA [id number] [address] [place] [address] [place] OF AMERICAPolychromasia LM Ql (Bld)SlightNoalCKettering Memorial Hospital on above:Order Comment: Specimen Type: BLOOD SPECIMENOrdering Facility: [facility] Address:[address] [place], [place] [address]Performed By: #### 96708-8 ####[facility] LABCLIA [id number] [place] [address] LABCLIA [id number] [place] [address] [place] OF AMERICARBC (Bld) [#/Vol]3.44 10*6/uLLow4.20-6.00[facility] Comment on above:Order Comment: Specimen Type: BLOOD SPECIMENOrdering Facility: [facility] Address:[address] [place] [address] Performed By: #### 43955-3 ####[facility] LABCLIA [id number] [address] LABCLIA [id number] [address] STATES OF AMERICARED CELL MORPHReviewed: see results of individual morphologiesNoal [facility] on above:Order Comment: Specimen Type: BLOOD SPECIMENOrdering Facility: [facility] Address:[address] [place], [place] [address]Performed By: #### 66135-5 ####[facility] LABCLIA [id number] [facility]38616LRZUUHZTGKETTERING [facility] LABCLIA [id number] [place] [address] [place] OF AMERICAWBC (Bld) [#/Vol]1.35 10*3/uLLow3.70-11.00[facility] on above:Order Comment: Specimen Type: BLOOD SPECIMENOrdering Facility: [facility] Address:[address] [place], [place] [address]Result Comment: No clot detected.Performed By: #### 12062-0 ####[facility] LABCLIA [id number] [place], [place] [address]QEKEDQYUCKETTERING HEALTH [facility] LABCLIA [id number] [facility] [id number] [place], [place] [address] [place] OF AMERICACNOVon 41-38-0516EFGFFmqmgxXoumsfauo Clinic ClevelandComprehensive metabolic 2000 panel on 58-34-3032Tsarabh [Mass/Vol]4.0 g/dLNormal3.9-4.9CSamaritan North Health Center Comment on above:Order Comment: Specimen Type: BLOOD SPECIMENOrdering Facility: [facility] Address:[address] [place] [address] Performed By: #### 95594-9 ####[facility] LABCLIA [id number] [place], [place] [address]IRV [Catalytic activity/Vol]121 U/SCebp14-971RqdskhslnSamaritan Hospital on above:Order Comment: Specimen Type: BLOOD SPECIMENOrdering Facility: [facility] Address:[address] [place], [place] [address]Performed By: #### 06052-1 ####[facility] LABCLIA [id number] [place] [address] ALT [Catalytic activity/Vol]15 U/KEsdwav11-09MhakxvbamSamaritan Hospital on above:Order Comment: Specimen Type: BLOOD SPECIMENOrdering Facility: [facility] Address:[address] [place] [address] Performed By: #### 37498-6 ####[facility] LABIA [id number] [place], [place] [address]Ilfkw gap [Moles/Vol]13 mmol/L Normal8-15[facility] on above:Order Comment: Specimen Type: BLOOD SPECIMENOrdering Facility: [facility] Address:[address] [place], [place] [address]Performed By: #### 79883-6 ####[facility] LABCLIA [id number] [place] [address] AST [Catalytic activity/Vol]16 U/DCsvolu50-48NoronclgvSamaritan Hospital on above:Order Comment: Specimen Type: BLOOD SPECIMENOrdering Facility: [facility] Address:[address] [place] [address] Performed By: #### 42448-3 ####[facility] LABCLIA [id number] [place], [place] [address]Rlzyqlyrr [Mass/Vol]0.8 mg/dL Normal0.2-1.3CKettering Memorial Hospital on above:Order Comment: Specimen Type: BLOOD SPECIMENOrdering Facility: [facility] Address:[address] [place], [place] [address]Performed By: #### 59031-1 ####[facility] LABCLIA [id number] [place] [address] Calcium [Mass/Vol]10.0 mg/dLNormal8.5-10.2CKettering Memorial Hospital on above:Order Comment: Specimen Type: BLOOD SPECIMENOrdering Facility: [facility] Address:[address] [place], [place] [address]Performed By: #### 38859-7 ####[facility] LABCLIA [id number] [place], [place] [address]Ithkoafz [Moles/Vol]98 mmol/CUfpwjo57-331PcounhrznSamaritan Hospital on above:Order Comment: Specimen Type: BLOOD SPECIMENOrdering Facility: [facility] Address:[address] [place], [place] [address]Performed By: #### 06724-6 ####[facility] LABCLIA [id number] [place], [place] [address]CZ2 [Moles/Vol] 26 mmol/QGchotn64-11GimiccdofSamaritan Hospital on above:Order Comment: Specimen Type: BLOOD SPECIMENOrdering Facility: [facility] Address:[address] [place], [place] [address]Performed By: #### 13018-2 ####[facility] LABCLIA [id number] [place], [place] [address]Ouqxvmlqqp [Mass/Vol]1.22 mg/dLNormal0.73-1.22[facility] on above:Order Comment: Specimen Type: BLOOD SPECIMENOrdering Facility: [facility] Address:[address] [place], [place] [address]Performed By: #### 52010-7 ####[facility] LABIA [id number] [place], [place] [address]cQSOms SerPlBld CKD-EPI 613174 mL/min/1.73m???Low>=60[facility] on above: Order Comment: Specimen Type: BLOOD SPECIMENOrdering Facility: [facility] Address:[address] [place], [place] [address]Result Comment: Estimated Glomerular Filtration Rate (eGFR) is calculated using the 2020 CKD-EPI cre atinine equation. This equation utilizes serum creatinine, sex, and age as parameters. The creatinine assay has traceable calibration to isotope dilution- mass spectrometry. Refer to KDIGO guidelines for clinical interpretation. In patients with unstable renal function, e.g. those with acute kidney injury, the eGFR may not accurately reflect actual GFR.Performed By: #### 69049-4 ####[facility] LABIA [id number] [place], [place] [address]Usxktbq [Mass/Vol]245 mg/qEWnrf08-70GgtbjykemSamaritan Hospital on above:Order Comment: Specimen Type: BLOOD SPECIMENOrdering Facility: [facility] Address:[address] [place], [place] [address]Result Comment: The [place] Diabetes Association (ADA) provides guidance for cutoff values for fasting glucose and random glucose. The ADA defines fasting as no caloric intake for at least 8 hours. Fasting plasma glucose results between 100 to 125 mg/dL indicate increased risk for diabetes (prediab etes).Fasting plasma glucose results greater than or equal to 126 mg/dL meet the criteria for diagnosis of diabetes. In the absence of unequivocal hyperglycemia, results should be confirmed by repeattesting. In a patient with classic symptoms of hyperglycemia or hyperglycemic crisis, random plasmaglucose results greater than or equal to 200 mg/dL meet the criteria for diagnosis of diabetes.Reference: Standards of Medical Care in Diabetes 2016, [place] Diabetes Association. Diabetes Care. 2016.39(Suppl 1).Performed By: #### 30067-5 ####[facility] LABCLIA [id number] [place], [place] [address]Fwrxtmiyh [Moles/Vol]4.4 mmol/LNormal3.7-5.1CKettering Memorial Hospital on above:Order Comment: Specimen Type: BLOOD SPECIMENOrdering Facility: [facility] Address:[address] [place], [place] [address]Performed By: #### 88846-2 ####[facility] LABCLIA [id number] [place], [place] [address]Jglkxjz [Mass/Vol]6.3 g/dLNormal6.3-8.0[facility] on above:Order Comment: Specimen Type: BLOOD SPECIMENOrdering Facility: [facility] Address:[address] [place], [place] [address]Performed By: #### 59080- 8 ####[facility] LABCLIA [id number] [place], [place] [address]Jmjwtq [Moles/Vol]137 mmol/DDctruo678-434EwechnkaySamaritan Hospital on above:Order Comment: Specimen Type: BLOOD SPECIMENOrdering Facility: [facility] Address:[address] [place], [place] [address]Performed By: #### 49208-4 ####[facility] LABCLIA [id number] [place], [place] [address]Ripa nitrogen [Mass/Vol]30 mg/dLHigh9-24[facility] on above:Order Comment: Specimen Type: BLOOD SPECIMENOrdering Facility: [facility] Address:[address] [place], [place] [address]Performed By: #### 86425-9 ####[facility]ADLE[facility] LABCLIA [id number] [place] [address] CBC W Auto Differential panel (Bld)on 55-41-9394Vpzlbujxwzlh Ql (Bld)Present NormalSamaritan Hospital on above:Order Comment: Specimen Type: BLOOD SPECIMENOrdering Facility: [facility] Address:[address] [place], [place] [address]Performed By: #### 06390-8 ####[facility] LABCLIA [id number] [address] LABCLIA [id number] [place] [address] [place] OF AMERICABasophils (Bld) [#/Vol]0.00 10*3/uLNormal<0.11 [facility] on above:Order Comment: Specimen Type: BLOOD SPECIMENOrdering Facility: [facility] Address:[address] [place], [place] [address]Performed By: #### 07435-6 ####[facility] LABCLIA [id number] [address] LABCLIA [id number] [place] [address] [place] AMERICABasophils/100 WBC (Bld)0.0 %NormalSamaritan Hospital on above:Order Comment: Specimen Type: BLOOD SPECIMENOrdering Facility: [facility] Address:[address] [place], [place] [address]Performed By: #### 25225-2 ####[facility] LABCLIA [id number] [address] LABCLIA [id number] [place] [address] [place] OF AMERICADifferential cell count method Nom (Bld)ManualNormalCSamaritan North Health CenterCommclaren [facility] on above:Order Comment: Specimen Type: BLOOD SPECIMENOrdering Facility: [facility] Address:[address] [place], [place] [address]Performed By: #### 13003-6 ####[facility] LABCLIA [id number] [address] LABCLIA [id number] [place] [address] [place] AMERICAEosinophils (Bld) [#/Vol]0.02 10*3/uLNormal<0.46[facility] on above:Order Comment: Specimen Type: BLOOD SPECIMENOrdering Facility: [facility] Address:[address] [place], [place] [address]Performed By: #### 17168-9 ####[facility] LABCLIA [id number] [address] LABCLIA [id number] [place] [address] [place] AMERICAEosinophils/100 WBC (Bld)1.0 %NormalSamaritan Hospital on above:Order Comment: Specimen Type: BLOOD SPECIMENOrdering Facility: [facility] Address:[address] [place], [place] [address]Performed By: #### 88895-9 ####[facility] LABCLIA [id number] [address] LABIA [id number] [place] [address] [place] AMERICAErythrocyte distribution width (RBC) [Ratio]17.8 %High11.5-15.0[facility] Comment on above:Order Comment: Specimen Type: BLOOD SPECIMENOrdering Facility: [facility] Address:[address] [place] [address] Performed By: #### 29622-3 ####[facility] LABCLIA [id number] [address] LABCLIA [id number] [place] [address] [place] AMERICAHematocrit (Bld) [Volume fraction]32.5 %Low39.0-51.0[facility] on above:Order Comment: Specimen Type: BLOOD SPECIMENOrdering Facility: [facility] Address:[address] [place], [place] [address]Performed By: #### 77910-9 ####[facility] LABCLIA [id number] [address] LABCLIA [id number] [place] [address] [place] AMERICAHemoglobin (Bld) [Mass/Vol]11.6 g/dLLow13.0-17.0[facility] on above:Order Comment: Specimen Type: BLOOD SPECIMENOrdering Facility: [facility] Address:[address] [place], [place] [address]Performed By: #### 75877-6 ####[facility] LABCLIA [id number] [address] LABCLIA [id number] [place] [address] [place] OF AMERICALymphocytes (Bld) [#/Vol]0.33 10*3/uLLow1.00-4.00[facility] on above:Order Comment: Specimen Type: BLOOD SPECIMENOrdering Facility: [facility] Address:[address] [place], [place] [address]Performed By: #### 79733-6 ####[facility] LABCLIA [id number] [address] LABCLIA [id number] [place] [address] [place] [facility]PITALLymphocytes/100 WBC (Bld)22.0 %NormalUniversity Hospitals Tripoint Medical CenterComment on above:Order Comment: Specimen Type: BLOOD SPECIMENOrdering Facility: [facility] Address:[address] [place] [address] Performed By: #### 25897-9 ####[facility] LABCLIA [id number] [address] LABCLIA [id number] [address] (RBC) [Entitic mass]33.3 zdUutztr92.0-34.0[facility] Comment on above:Order Comment: Specimen Type: BLOOD SPECIMENOrdering Facility: [facility] Address:[address] [place] [address] Performed By: #### 84050-4 ####[facility] LABCLIA [id number] [address] LABCLIA [id number] [address] (RBC) [Mass/Vol]35.7 g/cZMwrlfq79.5-36.0[facility] Comment on above:Order Comment: Specimen Type: BLOOD SPECIMENOrdering Facility: [facility] Address:[address] [place] [address] Performed By: #### 29633-6 ####[facility] LABCLIA [id number] [address] LABCLIA [id number] [address] (RBC) [Entitic vol]93.4 iXEwoaud24.0-100.0[facility] Comment on above:Order Comment: Specimen Type: BLOOD SPECIMENOrdering Facility: [facility] Address:[address] [place] [address] Performed By: #### 32009-5 ####[facility] LABCLIA [id number] [address] LABCLIA [id number] [place] [address] [place] AMERICAMonocytes (Bld) [#/Vol]0.15 10*3/uLNormal<0.87[facility] Comment on above:Order Comment: Specimen Type: BLOOD SPECIMENOrdering Facility: [facility] Address:[address] [place] [address] Performed By: #### 52484-2 ####[facility] LABCLIA [id number] [address] LABCLIA [id number] [place] [address] [place] AMERICAMonocytes/100 WBC (Bld)10.0 %NormalUniversity Hospitals Tripoint Medical CenterComment on above:Order Comment: Specimen Type: BLOOD SPECIMENOrdering Facility: [facility] Address:[address] [place], [place] [address]Performed By: #### 77149-6 ####[facility] LABCLIA [id number] [address] LABCLIA [id number] [place] [address] [place] OF AMERICANeutrophils (Bld) [#/Vol]1.01 10*3/uLLow1.45-7.50[facility] on above: Order Comment: Specimen Type: BLOOD SPECIMENOrdering Facility: [facility] Address:[address] [place], [place] [address]Performed By: #### 24794- 8 ####[facility] LABCLIA [id number] [address] LABCLIA [id number] [address] [address] [place] OF AMERICANeutrophils/100 WBC (Bld)67.0 %NormalSamaritan Hospital on above:Order Comment: Specimen Type: BLOOD SPECIMENOrdering Facility: [facility] Address:[address] [place], [place] [address]Performed By: #### 01619-7 ####[facility] LABCLIA [id number] [address] LABCLIA [id number] [place] [address] [place] AMERICANucleated RBC (Bld) [#/Vol]10*3/uLNormal<0.01[facility] on above:Order Comment: Specimen Type: BLOOD SPECIMENOrdering Facility: [facility] Address:[address] [place], [place] [address]Performed By: #### 20933- 8 ####[facility] LABCLIA [id number] [address] LABCLIA [id number] [place] [address] [place] AMERICANucleated RBC/100 WBC (Bld) [Ratio]0.0 /100 WBCNormMercy Health [facility] on above:Order Comment: Specimen Type: BLOOD SPECIMENOrdering Facility: [facility] Address:[address] [place], [place] [address]Performed By: #### 84942-2 ####[facility] LABCLIA [id number] [address] LABCLIA [id number] [place] [address] [place] OF AMERICAOvalocytes LM Ql (Bld)FewNormalCKettering Memorial Hospital on above:Order Comment: Specimen Type: BLOOD SPECIMENOrdering Facility: [facility] Address:[address] [place], [place] [address]Performed By: #### 14091-8 ####[facility] LABCLIA [id number] [place], [place] [address]BXYGWLUGXKETTERING [facility]ALTH [facility] LABCLIA [id number] [address] [address] [place] OF AMERICAPlatelet mean volume (Bld) [Entitic vol]9.2 fLNormal9.0-12.7CKettering Memorial Hospital on above:Order Comment: Specimen Type: BLOOD SPECIMENOrdering Facility: [facility] Address:[address] [place], [place] [address] Performed By: #### 60917-5 ####[facility] LABCLIA [id number] [address] LABCLIA [id number] [address] [address] [place] OF AMERICAPlatelets (Bld) [#/Vol]31 10*3/yXRvn919-415ZsdegynvmUniversity Hospitals Tripoint [facility] Center Comment on above:Order Comment: Specimen Type: BLOOD SPECIMENOrdering Facility: [facility] Address:[address] [place], [place] [address]Result Comment: No clot detected.Performed By: #### 79638-5 ####[facility] LABCLIA [id number] [place] [address] LABCLIA [id number] [address] [address] [place] AMERICAPlatelets Estimate (Bld) [#/Vol]DecreasedNormal [facility] Medical CenterCommclaren [facility] on above:Order Comment: Specimen Type: BLOOD SPECIMENOrdering Facility: [facility] Address:[address] [place], [place] [address]Performed By: #### 84183-9 ####[facility] LABCLIA [id number] [place] [address] LABCLIA [id number] [address] [place] [address] [place] AMERICAPolychromasia LM Ql (Bld)SlightNoalCKettering Memorial Hospital on above:Order Comment: Specimen Type: BLOOD SPECIMENOrdering Facility: [facility] Address:[address] [place], [place] [address]Performed By: #### 87185-8 ####[facility] LABCLIA [id number] [place] [address] LABCLIA [id number] [address] [place] [address] [place] [address] OF AMERICARBC (Bld) [#/Vol]3.48 10*6/uLLow4.20-6.00[facility] Comment on above:Order Comment: Specimen Type: BLOOD SPECIMENOrdering Facility: [facility] Address:[address] [place] [address] Performed By: #### 29845-2 ####[facility] LABCLIA [id number] [address] LABCLIA [id number] [place] [address] [place] OF AMERICARED CELL MORPHReviewed: see results of individual morphologiesFulton State Hospitalal [facility] on above:Order Comment: Specimen Type: BLOOD SPECIMENOrdering Facility: [facility] Address:[address] [place], [place] [address]Performed By: #### 47007-5 ####[facility] LABCLIA [id number] [place] [address] LABCLIA [id number] [address] [place] [address] [place] AMERICAWBC (Bld) [#/Vol]1.50 10*3/uLLow3.70-11.00[facility] on above:Order Comment: Specimen Type: BLOOD SPECIMENOrdering Facility: [facility] Address:[address] [place], [place] [address]Result Comment: No clot detected.Performed By: #### 53423-4 ####[facility] LABCLIA [id number] [place], [place] [address]SVMHYGERWKETTERING HEALTH WASHINGTON [facility]NS[facility]IP LABCLIA [id number] [facility] [id number] [place] [address] [place] OF AMERICACNOVSPon 96-72-9383IOWITPNbmcqtCbtznjnxx Clinic ClevelandComprehensive metabolic 2000 panelon 00-58-8183Gfocrmr [Mass/Vol]3.9 g/dLNormal3.9-4.9CKettering Memorial Hospital on above:Order Comment: Specimen Type: BLOOD SPECIMENOrdering Facility: [facility] Address:[address] [place], [place] [address]Performed By: #### 35525-5 ####[facility] LABCLIA [id number] [place], [place] [address]BZS [Catalytic activity/Vol]114 U/QXuay95-015QcstrscqoSamaritan Hospital on above:Order Comment: Specimen Type: BLOOD SPECIMENOrdering Facility: [facility] Address:[address] [place], [place] [address]Performed By: #### 22379-5 ####[facility] LABCLIA [id number] [place] [address] ALT [Catalytic activity/Vol]15 U/KDoiwej40-03CfncfltjvSamaritan Hospital on above:Order Comment: Specimen Type: BLOOD SPECIMENOrdering Facility: [facility] Address:[address] [place] [address] Performed By: #### 04232-0 ####[facility] LABCLIA [id number] [place], [place] [address]Hpabv gap [Moles/Vol]9 mmol/L Normal8-15[facility] on above:Order Comment: Specimen Type: BLOOD SPECIMENOrdering Facility: [facility] Address:[address] [place], [place] [address]Performed By: #### 11301-7 ####[facility] LABCLIA [id number] [place] [address] AST [Catalytic activity/Vol]15 U/JQacgya35-77ZneopkcgrSamaritan Hospital on above:Order Comment: Specimen Type: BLOOD SPECIMENOrdering Facility: [facility] Address:[address] [place] [address] Performed By: #### 38765-3 ####[facility] LABIA [id number] [place], [place] [address]Qxjxcmslf [Mass/Vol]0.7 mg/dL Normal0.2-1.3CKettering Memorial Hospital on above:Order Comment: Specimen Type: BLOOD SPECIMENOrdering Facility: [facility] Address:[address] [place], [place] [address]Performed By: #### 51551-6 ####[facility] LABIA [id number] [place] [address] Calcium [Mass/Vol]9.5 mg/dLNormal8.5-10.2CKettering Memorial Hospital on above:Order Comment: Specimen Type: BLOOD SPECIMENOrdering Facility: [facility] Address:[address] [place], [place] [address]Performed By: #### 22881-6 ####[facility] LABIA [id number] [place], [place] [address]Qsygnvix [Moles/Vol]100 mmol/OWawxfa71-529XjmwmkmkgSamaritan Hospital on above:Order Comment: Specimen Type: BLOOD SPECIMENOrdering Facility: [facility] Address:[address] [place], [place] [address]Performed By: #### 39244-2 ####[facility] LABIA [id number] [place], [place] [id number] [Moles/Vol] 26 mmol/HRjdfeb10-51BiwidjocmSamaritan Hospital on above:Order Comment: Specimen Type: BLOOD SPECIMENOrdering Facility: [facility] Address:[address] [place], [place] [address]Tufvhmwbq By: #### [id number] ####[facility] LABCLIA [id number] [place], [place] [address]Unsqsfmklq [Mass/Vol]0.98 mg/dLNormal0.73-1.22[facility] on above:Order Comment: Specimen Type: BLOOD SPECIMENOrdering Facility: [facility] Address:[address] [place] [address]Owncpfhvj By: #### [id number] ####[facility] LABCLIA [id number] [place], [place] [address]yUGItu SerPlBld CKD-EPI 098989 mL/min/1.73m???Normal>=60[facility] on above:Order Comment: Specimen Type: BLOOD SPECIMENOrdering Facility: [facility] Address:[address] [place], [place] [id number] Comment: Estimated Glomerular Filtration Rate (eGFR) is calculated using the 2020 CKD-EPI creatinine equation. This equation utilizes serum creatinine, sex, and age as parameters. The creatinine assay has traceable calibration to isotope dilution- mass spectrometry. Refer to KDIGO guidelines for clinical interpretation. In patients with unstable renal function, e.g. those with acute kidney injury, the eGFR may not accurately reflect actual GFR.Performed By: #### 98586-1 ####[facility] LABCLIA [id number] [place], [place] [address]Yebrryi [Mass/Vol]321 mg/sUKqrh81-33GhotanbatSamaritan Hospital on above:Order Comment: Specimen Type: BLOOD SPECIMENOrdering Facility: [facility] Address:[address] [place], [place] [address]Result Comment: The [place] Diabetes Association (ADA) provides guidance for cutoff values for fasting glucose and random glucose. The ADA defines fasting as no caloric intake for at least 8 hours. Fasting plasma glucose results between 100 to 125 mg/dL indicate increased risk for diabetes (prediab etes).Fasting plasma glucose results greater than or equal to 126 mg/dL meet the criteria for diagnosis of diabetes. In the absence of unequivocal hyperglycemia, results should be confirmed by repeattesting. In a patient with classic symptoms of hyperglycemia or hyperglycemic crisis, random plasmaglucose results greater than or equal to 200 mg/dL meet the criteria for diagnosis of diabetes.Reference: Standards of Medical Care in Diabetes 2016, [place] [employer]. Diabetes Care. 2016.39(Suppl 1).Performed By: #### 09593-1 ####[facility] LABCLIA [id number] [place], [place] [address]Zwpykkwlf [Moles/Vol]5.0 mmol/LNormal3.7-5.1CKettering Memorial Hospital on above:Order Comment: Specimen Type: BLOOD SPECIMENOrdering Facility: [facility] Address:[address] [place], [place] [address]Performed By: #### 20966-3 ####[facility] LABCLIA [id number] [place], [place] [address]Ibbilfy [Mass/Vol]6.3 g/dLNormal6.3-8.0[facility] on above:Order Comment: Specimen Type: BLOOD SPECIMENOrdering Facility: [facility] Address:[address] [place], [place] [address]Performed By: #### 13907- 8 ####[facility] LABCLIA [id number] [place], [place] [address]Aclgkn [Moles/Vol]135 mmol/OBlp055-379GrwxgsmjuSamaritan Hospital on above:Order Comment: Specimen Type: BLOOD SPECIMENOrdering Facility: [facility] Address:[address] [place], [place] [address]Performed By: #### 07407-3 ####[facility] LABIA [id number] [place], [place] [address]Ujbg nitrogen [Mass/Vol]28 mg/dLHigh9-24[facility] on above:Order Comment: Specimen Type: BLOOD SPECIMENOrdering Facility: [facility] Address:[address] [place], [place] [address]Performed By: #### 02001-3 ####[facility] LABCLIA [id number] [place] [address] Laboratory - Chemistry and Chemistry - challengeOrdered By: Sarah Mahnoey on 08-16-2516Epetthxbl [Mass/Vol]1.5 mg/dLLow1.7 - 2.3 mg/dLWood [facility] Hospital Magnesium SerPl-mCncon 16-06-6066Ddvseqyns [Mass/Vol]1.5 mg/dLLow1.7-2.3 [facility] on above:Order Comment: Specimen Type: BLOOD SPECIMENOrdering Facility: [facility] Address:[address] [place], [place] [address]Performed By: #### 15936-8 ####[facility] LABIA [id number] [place], [place] [address]Siptcbawm [Mass/Vol]Ordered By: Sarah Mahoney on 08-33-8799Donhvbmkpptgdy and review of laboratory resultsAbnormalCmemorial hospitaland Kettering [facility] Greene MemorialCNOVon 33-09-1826DQSL NormalUniversity Hospitals Tripoint Medical CenterCB W Auto Differential panel (Bld)on 04-08-2025 Basophils (Bld) [#/Vol]10*3/uLNormal<0.11CKettering Memorial Hospital on above:Order Comment: Specimen Type: BLOOD SPECIMENOrdering Facility: [facility] Address:[address] [place], [place] [address]Performed By: #### 16224-6 ####[facility] LABIA [id number] [place], [place] [address]Hutbuejyl/100 WBC (Bld)0.3 %[facility] on above:Order Comment: Specimen Type: BLOOD SPECIMENOrdering Facility: [facility] Address:[address] [place], [place] [address]Performed By: #### 93146-8 ####[facility] LABCLIA [id number] [place], [place] [address]Mqycxamcmrhy cell count method Nom (Bld)AutoNormalCKettering Memorial Hospital on above:Order Comment: Specimen Type: BLOOD SPECIMENOrdering Facility: [facility] Address:[address] [place], [place] [address]Performed By: #### 80209-3 ####[facility] LABCLIA [id number] [place], [place] [address]Mpcjjvtrxcu (Bld) [#/Vol]10*3/uLNormal<0.46[facility] on above:Order Comment: Specimen Type: BLOOD SPECIMENOrdering Facility: [facility] Address:[address] [place], [place] [address]Performed By: #### 32812-9 ####[facility] LABCLIA [id number] [place], [place] [address]Ilgkusdhsiv/100 WBC (Bld)0.6 %NormalSamaritan Hospital on above:Order Comment: Specimen Type: BLOOD SPECIMENOrdering Facility: [facility] Address:[address] [place], [place] [address]Performed By: #### 70058-0 ####[facility] LABCLIA [id number] [place], [place] [address]Kjtnearghwd distribution width (RBC) [Ratio]14.9 %Normal 11.5-15.0[facility] on above:Order Comment: Specimen Type: BLOOD SPECIMENOrdering Facility: [facility] Address:[address] [place], [place] [address]Performed By: #### 83199-6 ####[facility] LABIA [id number] [place] [address] Hematocrit (Bld) [Volume fraction]35.9 %Low39.0-51.0[facility] Comment on above:Order Comment: Specimen Type: BLOOD SPECIMENOrdering Facility: [facility] Address:[address] [place] [address] Performed By: #### 62022-5 ####[facility] LABCLIA [id number] [place], [place] [address]Lqoootrpsx (Bld) [Mass/Vol]12.7 g/dLLow13.0-17.0[facility] on above:Order Comment: Specimen Type: BLOOD SPECIMENOrdering Facility: [facility] Address:[address] [place], [place] [address]Performed By: #### 30365-1 ####[facility] LABCLIA [id number] [place], [place] [address]Haidnzlk granulocytes (Bld) [#/Vol]0.03 10*3/uLNormal <0.10[facility] on above:Order Comment: Specimen Type: BLOOD SPECIMENOrdering Facility: [facility] Address:[address] [place], [place] [address]Performed By: #### 69647-4 ####[facility] LABCLIA [id number] [place], [place] [address]Zrgygnat granulocytes/100 WBC (Bld)0.9 %NormalSamaritan Hospital on above: Order Comment: Specimen Type: BLOOD SPECIMENOrdering Facility: [facility] Address:[address] [place], [place] [address]Performed By: #### 68249- 8 ####[facility] LABCLIA [id number] [place], [place] [address]Lsolfvknrie (Bld) [#/Vol]0.47 10*3/uLLow1.00-4.00 [facility] on above:Order Comment: Specimen Type: BLOOD SPECIMENOrdering Facility: [facility] Address:[address] [place], [place] [address]Performed By: #### 16295-0 ####[facility] LABCLIA [id number] [place], [place] [address]Yvrfjtbpovy/100 WBC (Bld)13.4 %NormalSamaritan Hospital on above:Order Comment: Specimen Type: BLOOD SPECIMENOrdering Facility: [facility] Address:[address] [place], [place] [address]Performed By: #### 15916-6 ####[facility] LABCLIA [id number] [place], [place] [address]ZMP (RBC) [Entitic mass]32.1 whVfxdsm81.0-34.0[facility] on above:Order Comment: Specimen Type: BLOOD SPECIMENOrdering Facility: [facility] Address:[address] [place], [place] [address]Performed By: #### 79464-4 ####[facility] LABCLIA [id number] [place], [place] [address]IGNN (RBC) [Mass/Vol]35.4 g/uDJuytif07.5-36.0[facility] on above: Order Comment: Specimen Type: BLOOD SPECIMENOrdering Facility: [facility] Address:[address] [place], [place] [address]Performed By: #### 57080- 8 ####[facility] LABCLIA [id number] [place], [place] [address]SXI (RBC) [Entitic vol]90.7 cFBzfdgg11.0-100.0[facility] on above:Order Comment: Specimen Type: BLOOD SPECIMENOrdering Facility: [facility] Address:[address] [place], [place] [address]Performed By: #### 36786-0 ####[facility] LABIA [id number] [place], [place] [address]Gcioaqfxt (Bld) [#/Vol]0.54 10*3/uLNormal<0.87[facility] on above:Order Comment: Specimen Type: BLOOD SPECIMENOrdering Facility: [facility] Address:[address] [place], [place] [address]Performed By: #### 98522- 8 ####[facility] LABCLIA [id number] [place], [place] [address]Defqgqzif/100 WBC (Bld)15.4 %NormalSamaritan Hospital on above:Order Comment: Specimen Type: BLOOD SPECIMENOrdering Facility: [facility] Address:[address] [place], [place] [address]Performed By: #### 74476-7 ####[facility] LABCLIA [id number] [place], [place] [address]Znrqjhkgree (Bld) [#/Vol]2.43 10*3/uLNormal1.45-7.50[facility] on above:Order Comment: Specimen Type: BLOOD SPECIMENOrdering Facility: [facility] Address:[address] [place], [place] [address]Performed By: #### 04199-4 ####[facility] LABCLIA [id number] [place], [place] [address]Uxtvbwtkvay/100 WBC (Bld)69.4 %NormalSamaritan Hospital on above:Order Comment: Specimen Type: BLOOD SPECIMENOrdering Facility: [facility] Address:[address] [place], [place] [address]Performed By: #### 48848-2 ####[facility] LABCLIA [id number] [place], [place] [address]Afruazelp RBC (Bld) [#/Vol] 10*3/uLNormal<0.01[facility] on above:Order Comment: Specimen Type: BLOOD SPECIMENOrdering Facility: [facility] Address:[address] [place], [place] [address]Performed By: #### 61119-0 ####[facility] LABCLIA [id number] [place], [place] [address]Bunjmtzwh RBC/100 WBC (Bld) [Ratio]0.0 /100 WBCNormal [facility] on above:Order Comment: Specimen Type: BLOOD SPECIMENOrdering Facility: [facility] Address:[address] [place], [place] [address]Performed By: #### 16317-8 ####[facility] LABCLIA [id number] [place], [place] [address]Ebepszpu mean volume (Bld) [Entitic vol]8.7 fLLow9.0-12.7CKettering Memorial Hospital on above:Order Comment: Specimen Type: BLOOD SPECIMENOrdering Facility: [facility] Address:[address] [place], [place] [address]Performed By: #### 76795-9 ####[facility] LABCLIA [id number] [place], [place] [address]Bbrbsqxts (Bld) [#/Vol]53 10*3/sFVyn541-863OscgfbvfoSamaritan Hospital on above:Order Comment: Specimen Type: BLOOD SPECIMENOrdering Facility: [facility] Address:[address] [place], [place] [address]Result Comment: No clot detected.Performed By: #### 15130-1 ####[facility] LABCLIA [id number] [place], [place] [address]IHR (Bld) [#/Vol]3.96 10*6/uLLow4.20-6.00[facility] on above:Order Comment: Specimen Type: BLOOD SPECIMENOrdering Facility: [facility] Address:[address] [place], [place] [address]Performed By: #### 32242-0 ####[facility] LABIA [id number] [place], [place] [address]EHY (Bld) [#/Vol]3.50 10*3/uL Low3.70-11.00[facility] on above:Order Comment: Specimen Type: BLOOD SPECIMENOrdering Facility: [facility] Address:[address] [place], [place] [address]Performed By: #### 96698-5 ####[facility] LABCLIA [id number] [place] [address] CNOVSPon 54-92-4964RESEYIBhxbvwRxiwfomcs Clinic ClevelandComprehensive metabolic 2000 panelon 96-71-2343Ezybydv [Mass/Vol]4.2 g/dLNormal3.9-4.9CKettering [facility] Hospital on above:Order Comment: Specimen Type: BLOOD SPECIMENOrdering Facility: [facility] Address:[address] [place], [place] [address]Performed By: #### 64943-2, 14120-5 ####[facility] LABCLIA [id number] [facility] [place] [address]BEI [Catalytic activity/Vol]119 U/PKyty09-545EppibqhqeSamaritan Hospital on above:Order Comment: Specimen Type: BLOOD SPECIMENOrdering Facility: [facility] Address:[address] [place], [place] [address]Performed By: #### 04342- 9, 49087-7 ####[facility] LABCLIA [id number] [facility] [place], [place] [address]MSA [Catalytic activity/Vol]19 U/KWfllkz55-43 [facility] on above:Order Comment: Specimen Type: BLOOD SPECIMENOrdering Facility: [facility] Address:[address] [place], [place] [address]Performed By: #### 72537-6, 16636-5 ####[facility] LABCLIA [id number] [facility] [place], [place] [address]Kzgrl gap [Moles/Vol]11 mmol/LNormal8-15[facility] on above: Order Comment: Specimen Type: BLOOD SPECIMENOrdering Facility: [facility] Address:[address] [place], [place] [address]Performed By: #### 37101- 9, 77664-6 ####[facility] LABCLIA [id number] [place], [place] [address]KRC [Catalytic activity/Vol]19 U/YDiqhee91-72 [facility] on above:Order Comment: Specimen Type: BLOOD SPECIMENOrdering Facility: [facility] Address:[address] [place], [place] [address]Performed By: #### 33511-6, 70093-3 ####[facility] LABCLIA [id number] [place] [address] Bilirubin [Mass/Vol]0.6 mg/dLNormal0.2-1.3CKettering [facility] Hospital on above:Order Comment: Specimen Type: BLOOD SPECIMENOrdering Facility: [facility] Address:[address] [place], [place] [address]Performed By: #### 84099-5, 44153-7 ####[facility] LABCLIA [id number] [place], [place] [address]Lsugnkc [Mass/Vol]9.7 mg/dLNormal8.5-10.2 [facility] on above:Order Comment: Specimen Type: BLOOD SPECIMENOrdering Facility: [facility] Address:[address] [place], [place] [address]Performed By: #### 87497-2, 39736-2 ####[facility] LABCLIA [id number] [place], [place] [address]Jhyqxlzg [Moles/Vol]94 mmol/YBfc35-061XoplpxdbdSamaritan Hospital on above:Order Comment: Specimen Type: BLOOD SPECIMENOrdering Facility: [facility] Address:[address] [place], [place] [address]Performed By: #### 00714- 9, 89483-1 ####[facility] LABCLIA [id number] [place], [place] [address]TC8 [Moles/Vol]28 mmol/KNbshrs54-28ZgvmsubpvSamaritan Hospital on above:Order Comment: Specimen Type: BLOOD SPECIMENOrdering Facility: [facility] Address:[address] [place] [address]Bwulqwvda By: #### 51973-6, 02251-5 ####[facility] LABIA [id number] [place], [place] [address]Johhlrxzsw [Mass/Vol] 1.02 mg/dLNormal0.73-1.22[facility] on above:Order Comment: Specimen Type: BLOOD SPECIMENOrdering Facility: [facility] Address:[address] [place] [address]Pbelfrhto By: #### 48560- 9, 92029-4 ####[facility] LABIA [id number] [place], [place] [address]pFJGcs SerPlBld CKD-EPI 165862 mL/min/1.73m??? Normal>=60[facility] on above:Order Comment: Specimen Type: BLOOD SPECIMENOrdering Facility: [facility] Address:[address] [place] [address]Ndcglf Comment: Estimated Glomerular Filtration Rate (eGFR) is calculated using the 2020 CKD-EPI creatinine equation. This equation utilizes serum creatinine, sex, and age as parameters. The creatinine assay has traceable calibration to isotope dilution-mass spectrometry. Refer to KDIGO guidelines for clinical interpretation. In patients with unstable renal function, e.g. those with acute kidney injury, the eGFR may not accurately reflect actual GFR.Performed By: #### 50607-0, 70321-0 ####[facility] LABIA [id number] [place], [place] [address]Rdfrzfo [Mass/Vol]371 mg/xCEemx39-58UqlfwqpuzSamaritan Hospital on above:Order Comment: Specimen Type: BLOOD SPECIMENOrdering Facility: [facility] Address:[address] [place] [address]Vczkon Comment: The [place] Diabetes Association (ADA) provides guidance for cutoff values for fast ing glucose and random glucose. The ADA defines fasting as no caloric intake for at least 8 hours. Fasting plasma glucose results between 100 to 125 mg/dL indicate increased risk for diabetes (prediabetes).Fasting plasma glucose results greater than or equal to 126 mg/dL meet the criteria for diagnosis of diabetes. In the absence of unequivocal hyperglycemia, results should be confirmed by repeattesting. In a patient with classic symptoms of hyperglycemia or hyperglycemic crisis, random plasmaglucose results greater than or equal to 200 mg/dL meet the criteria for diagnosis of diabetes.Reference: Standards of Medical Care in Diabetes 2016, [place] [employer]. Diabetes Care. 2016.39(Suppl 1).Performed By: #### 05632-7, ####[facility] LABCLIA [id number] [place] [address] Potassium [Moles/Vol]5.1 mmol/LNormal3.7-5.1CKettering [facility] Hospital on above:Order Comment: Specimen Type: BLOOD SPECIMENOrdering Facility: [facility] Address:[address] [place], [place] [address]Performed By: #### 29093-1, ####[facility] LABCLIA [id number] [place], [place] [address]Ycwyypb [Mass/Vol]6.5 g/dLNormal6.3-8.0 [facility] on above:Order Comment: Specimen Type: BLOOD SPECIMENOrdering Facility: [facility] Address:[address] [place], [place] [address]Performed By: #### 48730-1, 92875-5 ####[facility] LABCLIA [id number] [place], [place] [address]Ycucyv [Moles/Vol]133 mmol/WNsu205-445SpqnllenkSamaritan Hospital on above:Order Comment: Specimen Type: BLOOD SPECIMENOrdering Facility: [facility] Address:[address] [place], [place] [address]Performed By: #### 33624- 9, ####[facility] LABCLIA [id number] [place], [place] [address]Ribn nitrogen [Mass/Vol]30 mg/dLHigh9-24[facility] on above:Order Comment: Specimen Type: BLOOD SPECIMENOrdering Facility: [facility] Address:[address] [place], [place] [address]Performed By: #### 17848-6, 25201-8 ####[facility] LABCLIA [id number] [place] [address] MAGNESIUMOrdered By: Clarice Garcia on 75-86-6478Ocelxvipd [Mass/Vol]1.5 mg/dLLow 1.7 - 2.3 mg/dLWood County HospitalMagnesium SerPl-mCncon 13-53-2495Wljohbobn [Mass/Vol]1.5 mg/dLLow1.7-2.3CKet[facility] on above:Order Comment: Specimen Type: BLOOD SPECIMENOrdering Facility: [facility] Address:[address] [place], [place] [address]Performed By: #### 61954- 9, 40711-3 ####[facility] LABCLIA [id number] [place], [place] [address]Lmdivaavd [Mass/Vol]Ordered By: Clarice Garcia on 46-60-1177Dovyiothmorpnm and review of laboratory resultsAbnormalCSelect Medical Specialty Hospital - ColumbusCNOVon 29-02-3692NNKXOmtgptShofpogbb Clinic ClevelandCB W Auto Differential panel (Bld)on 79-83-6748Uetlvrdsy (Bld) [#/Vol]10*3/uLNormal <0.11CK[facility] on above:Order Comment: Specimen Type: BLOOD SPECIMENOrdering Facility: [facility] Address:[address] [place], [place] [address]Performed By: #### 59241-1 ####[facility] LABCLIA [id number] [place] [address] Basophils/100 WBC (Bld)0.4 %NormalSamaritan Hospital on above: Order Comment: Specimen Type: BLOOD SPECIMENOrdering Facility: [facility] Address:[address] [place], [place] [address]Performed By: #### 31931- 8 ####[facility] LABCLIA [id number] [place], [place] [address]Oytcazmshkfk cell count method Nom (Bld)AutoNormal [facility] on above:Order Comment: Specimen Type: BLOOD SPECIMENOrdering Facility: [facility] Address:[address] [place], [place] [address]Performed By: #### 02489-7 ####[facility] LABIA [id number] [place], [place] [address]Dmoaacrqmjt (Bld) [#/Vol]0.04 10*3/uLNormal<0.46[facility] on above: Order Comment: Specimen Type: BLOOD SPECIMENOrdering Facility: [facility] Address:[address] [place], [place] [address]Performed By: #### 34404- 8 ####[facility] LABIA [id number] [place], [place] [address]Lvmqzfhyhkb/100 WBC (Bld)0.7 %NormalSamaritan Hospital on above:Order Comment: Specimen Type: BLOOD SPECIMENOrdering Facility: [facility] Address:[address] [place], [place] [address]Performed By: #### 66356-3 ####[facility] LABIA [id number] [place], [place] [address]Udcfakruagq distribution width (RBC) [Ratio]14.2 %Thcosp91.5-15.0[facility] on above: Order Comment: Specimen Type: BLOOD SPECIMENOrdering Facility: [facility] Address:[address] [place], [place] [address]Performed By: #### 30539- 8 ####[facility] LABIA [id number] [place], [place] [address]Urzfuiweqd (Bld) [Volume fraction]37.2 %Low39.0-51.0 [facility] on above:Order Comment: Specimen Type: BLOOD SPECIMENOrdering Facility: [facility] Address:[address] [place], [place] [address]Performed By: #### 31925-6 ####[facility] LABIA [id number] [place], [place] [address]Dtnzujywin (Bld) [Mass/Vol]13.2 g/wHTeixdk38.0-17.0[facility] on above: Order Comment: Specimen Type: BLOOD SPECIMENOrdering Facility: [facility] Address:[address] [place], [place] [address]Performed By: #### 17841- 8 ####[facility] LABIA [id number] [place], [place] [address]Racosufp granulocytes (Bld) [#/Vol]0.07 10*3/uLNormal <0.10[facility] on above:Order Comment: Specimen Type: BLOOD SPECIMENOrdering Facility: [facility] Address:[address] [place], [place] [address]Performed By: #### 37394-5 ####[facility] LABIA [id number] [place], [place] [address]Jgzkmsas granulocytes/100 WBC (Bld)1.3 %NormalSamaritan Hospital on above: Order Comment: Specimen Type: BLOOD SPECIMENOrdering Facility: [facility] Address:[address] [place], [place] [address]Performed By: #### 50086- 8 ####[facility] LABIA [id number] [place], [place] [address]Tcxgiffnxwb (Bld) [#/Vol]0.49 10*3/uLLow1.00-4.00 [facility] on above:Order Comment: Specimen Type: BLOOD SPECIMENOrdering Facility: [facility] Address:[address] [place], [place] [address]Performed By: #### 15297-1 ####[facility] LABCLIA [id number] [place], [place] [address]Hyzcxfmhqqj/100 WBC (Bld)8.9 %NormalSamaritan Hospital on above:Order Comment: Specimen Type: BLOOD SPECIMENOrdering Facility: [facility] Address:[address] [place], [place] [address]Performed By: #### 37210-9 ####[facility] LABCLIA [id number] [place], [place] [address]VFZ (RBC) [Entitic mass]31.9 bjEzoacl96.0-34.0[facility] on above:Order Comment: Specimen Type: BLOOD SPECIMENOrdering Facility: [facility] Address:[address] [place], [place] [address]Performed By: #### 94946-7 ####[facility] LABCLIA [id number] [place], [place] [address]AESO (RBC) [Mass/Vol]35.5 g/kCYxhxlt47.5-36.0[facility] on above: Order Comment: Specimen Type: BLOOD SPECIMENOrdering Facility: [facility] Address:[address] [place], [place] [address]Performed By: #### [id number]- 8 ####[facility] LABCLIA [id number] [place], [place] [address]PQT (RBC) [Entitic vol]89.9 nPQkkgwr61.0-100.0[facility] on above:Order Comment: Specimen Type: BLOOD SPECIMENOrdering Facility: [facility] Address:[address] [place], [place] [address]Performed By: #### [id number] ####[facility] LABIA [id number] [place], [place] [address]Pmumcywop (Bld) [#/Vol]0.82 10*3/uLNormal<0.87[facility] on above:Order Comment: Specimen Type: BLOOD SPECIMENOrdering Facility: [facility] Address:[address] [place], [place] [address]Performed By: #### [id number]- 8 ####[facility] LABCLIA [id number] [place], [place] [address]Gdylfoxax/100 WBC (Bld)15.0 %NormalSamaritan Hospital on above:Order Comment: Specimen Type: BLOOD SPECIMENOrdering Facility: [facility] Address:[address] [place], [place] [address]Performed By: #### 12523-2 ####[facility] LABCLIA [id number] [place], [place] [address]Hqlxjjqucnd (Bld) [#/Vol]4.04 10*3/uLNormal1.45-7.50[facility] on above:Order Comment: Specimen Type: BLOOD SPECIMENOrdering Facility: [facility] Address:[address] [place], [place] [address]Performed By: #### [id number] ####[facility] LABCLIA [id number] [place], [place] [address]Vqepqxngqqt/100 WBC (Bld)73.7 %NormalSamaritan Hospital on above:Order Comment: Specimen Type: BLOOD SPECIMENOrdering Facility: [facility] Address:[address] [place], [place] [address]Performed By: #### 00587-5 ####[facility] LABIA [id number] [place], [place] [address]Ubvaidxrf RBC (Bld) [#/Vol] 10*3/uLNormal<0.01[facility] on above:Order Comment: Specimen Type: BLOOD SPECIMENOrdering Facility: [facility] Address:[address] [place], [place] [address]Performed By: #### 89737-4 ####[facility] LABCLIA [id number] [place], [place] [address]Haooyiqfg RBC/100 WBC (Bld) [Ratio]0.0 /100 WBCNormal [facility] on above:Order Comment: Specimen Type: BLOOD SPECIMENOrdering Facility: [facility] Address:[address] [place], [place] [address]Performed By: #### 98723-7 ####[facility] LABCLIA [id number] [place], [place] [address]Qzmkadie mean volume (Bld) [Entitic vol]8.8 fLLow9.0-12.7CK[facility] on above:Order Comment: Specimen Type: BLOOD SPECIMENOrdering Facility: [facility] Address:[address] [place], [place] [address]Performed By: #### 98045-4 ####[facility] LABCLIA [id number] [place], [place] [address]Qzialrtrz (Bld) [#/Vol]107 10*3/rOSmg208-343NygzxzukuSamaritan Hospital on above:Order Comment: Specimen Type: BLOOD SPECIMENOrdering Facility: [facility] Address:[address] [place], [place] [address]Performed By: #### 80008-5 ####[facility] LABCLIA [id number] [place], [place] [address]BGY (Bld) [#/Vol]4.14 10*6/uLLow4.20-6.00[facility] on above:Order Comment: Specimen Type: BLOOD SPECIMENOrdering Facility: [facility] Address:[address] [place], [place] [address]Performed By: #### 02744- 8 ####[facility] LABCLIA [id number] [place], [place] [address]TSO (Bld) [#/Vol]5.48 10*3/uLNormal3.70-11.00[facility] on above:Order Comment: Specimen Type: BLOOD SPECIMENOrdering Facility: [facility] Address:[address] [place], [place] [address]Performed By: #### 00126-5 ####[facility] LABCLIA [id number] [facility] [place], [place] [address]Mplwvyqipjukz metabolic 2000 panelon 20-36-7794Wuavgnc [Mass/Vol]4.2 g/dLNormal3.9-4.9 [facility] on above:Order Comment: Specimen Type: BLOOD SPECIMENOrdering Facility: [facility] Address:[address] [place], [place] [address]Performed By: #### 15224-5 ####[facility] LABCLIA [id number] [facility], [place] [address]PFF [Catalytic activity/Vol]137 U/HZlpx57-690IxsxsozabSamaritan Hospital on above:Order Comment: Specimen Type: BLOOD SPECIMENOrdering Facility: [facility] Address:[address] [place], [place] [address]Performed By: #### 89644- 8 ####[facility] LABCLIA [id number] [facility] [place], [place] [address]ZOL [Catalytic activity/Vol]17 U/QPtdgez91-48GqmlptomjSamaritan Hospital on above:Order Comment: Specimen Type: BLOOD SPECIMENOrdering Facility: [facility] Address:[address] [place], [place] [address]Performed By: #### 21270-8 ####[facility] LABIA [id number] [place], [place] [address]Hobzc gap [Moles/Vol]15 mmol/LNormal8-15[facility] on above:Order Comment: Specimen Type: BLOOD SPECIMENOrdering Facility: [facility] Address:[address] [place], [place] [address]Performed By: #### 02413- 8 ####[facility] LABCLIA [id number] [facility] [place], [place] [address]ILD [Catalytic activity/Vol]15 U/AQzllmr55-30JhclizcumSamaritan Hospital on above:Order Comment: Specimen Type: BLOOD SPECIMENOrdering Facility: [facility] Address:[address] [place], [place] [address]Performed By: #### 31315-2 ####[facility] LABCLIA [id number] [place], [place] [address]Datqmjedj [Mass/Vol]0.6 mg/dLNormal0.2-1.3CK[facility] on above:Order Comment: Specimen Type: BLOOD SPECIMENOrdering Facility: [facility] Address:[address] [place], [place] [address]Performed By: #### 26824- 8 ####[facility] LABCLIA [id number] [facility] [place], [place] [address]Hkqtiaz [Mass/Vol]9.8 mg/dLNormal8.5-10.2CK[facility] on above:Order Comment: Specimen Type: BLOOD SPECIMENOrdering Facility: [facility] Address:[address] [place], [place] [address]Performed By: #### 53375-8 ####[facility] LABCLIA [id number] [facility], [place] [address]Ijuucvus [Moles/Vol]96 mmol/L Qcv34-851GcqdfnpvvSamaritan Hospital on above:Order Comment: Specimen Type: BLOOD SPECIMENOrdering Facility: [facility] Address:[address] [place], [place] [address]Performed By: #### 98272-0 ####[facility] LABCLIA [id number] [facility] [place] [address] CO2 [Moles/Vol]25 mmol/GPuuiyy41-19KdxinijrySamaritan Hospital on above: Order Comment: Specimen Type: BLOOD SPECIMENOrdering Facility: [facility] Address:[address] [place], [place] [address]Ejawwoxem By: #### 97034- 8 ####[facility] LABCLIA [id number] [place], [place] [address]Ytglhbkkcx [Mass/Vol]1.03 mg/dLNormal0.73-1.22[facility] on above:Order Comment: Specimen Type: BLOOD SPECIMENOrdering Facility: [facility] Address:[address] [place], [place] [address]Performed By: #### 59087-2 ####[facility] LABIA [id number] [place], [place] [address]uYOLgf SerPlBld CKD-EPI 635550 mL/min/1.73m???Normal>=60[facility] on above:Order Comment: Specimen Type: BLOOD SPECIMENOrdering Facility: [facility] Address:[address] [place] [address]Dwdvwq Comment: Estimated Glomerular Filtration Rate (eGFR) is calculated using the 2020 CKD-EPI creatinine equation. This equation utilizes serum creatinine, sex, and age as parameters. The creatinine assay has traceable calibration to isotope dilution- mass spectrometry. Refer to KDIGO guidelines for clinical interpretation. In patients with unstable renal function, e.g. those with acute kidney injury, the eGFR may not accurately reflect actual GFR.Performed By: #### 70747-8 ####[facility] LABIA [id number] [place], [place] [address]Ylpaxlx [Mass/Vol]376 mg/sLMkpc72-30NbjydyavqSamaritan Hospital on above:Order Comment: Specimen Type: BLOOD SPECIMENOrdering Facility: [facility] Address:[address] [place] [address]Epwzrn Comment: The [place] Diabetes [employer] (ADA) provides guidance for cutoff values for fasting glucose and random glucose. The ADA defines fasting as no caloric intake for at least 8 hours. Fasting plasma glucose results between 100 to 125 mg/dL indicate increased risk for diabetes (prediab etes).Fasting plasma glucose results greater than or equal to 126 mg/dL meet the criteria for diagnosis of diabetes. In the absence of unequivocal hyperglycemia, results should be confirmed by repeattesting. In a patient with classic symptoms of hyperglycemia or hyperglycemic crisis, random plasmaglucose results greater than or equal to 200 mg/dL meet the criteria for diagnosis of diabetes.Reference: Standards of Medical Care in Diabetes 2016, [place] [employer]. Diabetes Care. 2016.39(Suppl 1).Performed By: #### 95693-0 ####[facility] LABCLIA [id number] [place], [place] [address]Ubwajpwto [Moles/Vol]4.2 mmol/LNormal3.7-5.1CKet[facility] on above:Order Comment: Specimen Type: BLOOD SPECIMENOrdering Facility: [facility] Address:[address] [place], [place] [address]Performed By: #### 47368-9 ####[facility] LABIA [id number] [place], [place] [address]Bezvxdc [Mass/Vol]6.8 g/dLNormal6.3-8.0[facility] on above:Order Comment: Specimen Type: BLOOD SPECIMENOrdering Facility: [facility] Address:[address] [place], [place] [address]Performed By: #### 93508- 8 ####[facility] LABCLIA [id number] [place], [place] [address]Xjritu [Moles/Vol]136 mmol/LYbmimm013-191CvvdenlxuSamaritan Hospital on above:Order Comment: Specimen Type: BLOOD SPECIMENOrdering Facility: [facility] Address:[address] [place], [place] [address]Performed By: #### 21521-6 ####[facility] LABIA [id number] [place], [place] [address]Jwxb nitrogen [Mass/Vol]27 mg/dLHigh9-24[facility] on above:Order Comment: Specimen Type: BLOOD SPECIMENOrdering Facility: [facility] Address:[address] [place], [place] [address]Performed By: #### 36986-0 ####[facility] LABCLIA [id number] [place] [address] CNOVon 97-76-5207MSNQPwifrjAatnmeqlp Clinic ClevelandCB W Auto Differential panel (Bld)on 42-33-7945Cljgycesq (Bld) [#/Vol]0.03 10*3/uLNormal<0.11CK[facility] on above:Order Comment: Specimen Type: BLOOD SPECIMENOrdering Facility: [facility] Address:[address] [place], [place] [address]Performed By: #### 65658-6 ####[facility] LABCLIA [id number] [place], [place] [address]Nqcigzvio/100 WBC (Bld)0.4 %NormalSamaritan Hospital on above:Order Comment: Specimen Type: BLOOD SPECIMENOrdering Facility: [facility] Address:[address] [place], [place] [address]Performed By: #### 73946-1 ####[facility] LABCLIA [id number] [place], [place] [address]Hbevhumfwxdw cell count method Nom (Bld)AutoNormal [facility] on above:Order Comment: Specimen Type: BLOOD SPECIMENOrdering Facility: [facility] Address:[address] [place], [place] [address]Performed By: #### 02147-9 ####[facility] LABCLIA [id number] [place], [place] [address]Bfbfunixexb (Bld) [#/Vol]0.04 10*3/uLNormal<0.46[facility] on above: Order Comment: Specimen Type: BLOOD SPECIMENOrdering Facility: [facility] Address:[address] [place], [place] [address]Performed By: #### 26895- 8 ####[facility] LABCLIA [id number] [place], [place] [address]Hfiffophntc/100 WBC (Bld)0.5 %NormalSamaritan Hospital on above:Order Comment: Specimen Type: BLOOD SPECIMENOrdering Facility: [facility] Address:[address] [place], [place] [address]Performed By: #### 17524-3 ####[facility] LABIA [id number] [place], [place] [address]Fvcedewncwy distribution width (RBC) [Ratio]13.5 %Cxwnbt05.5-15.0[facility] on above: Order Comment: Specimen Type: BLOOD SPECIMENOrdering Facility: [facility] Address:[address] [place], [place] [address]Performed By: #### 40286- 8 ####[facility] LABIA [id number] [place], [place] [address]Rjmnhjxvnn (Bld) [Volume fraction]36.8 %Low39.0-51.0 [facility] on above:Order Comment: Specimen Type: BLOOD SPECIMENOrdering Facility: [facility] Address:[address] [place], [place] [address]Performed By: #### 84086-3 ####[facility] LABIA [id number] [place], [place] [address]Osssxrscix (Bld) [Mass/Vol]13.2 g/jTLgiwnu82.0-17.0[facility] on above: Order Comment: Specimen Type: BLOOD SPECIMENOrdering Facility: [facility] Address:[address] [place], [place] [address]Performed By: #### 86834- 8 ####[facility] LABIA [id number] [place], [place] [address]Qmmmsfov granulocytes (Bld) [#/Vol]0.05 10*3/uLNormal <0.10[facility] on above:Order Comment: Specimen Type: BLOOD SPECIMENOrdering Facility: [facility] Address:[address] [place], [place] [address]Performed By: #### 47451-3 ####[facility] LABCLIA [id number] [place], [place] [address]Vxnfnltt granulocytes/100 WBC (Bld)0.7 %NormalSamaritan Hospital on above: Order Comment: Specimen Type: BLOOD SPECIMENOrdering Facility: [facility] Address:[address] [place], [place] [address]Performed By: #### 42985- 8 ####[facility] LABCLIA [id number] [place], [place] [address]Snfuihyxhlx (Bld) [#/Vol]0.78 10*3/uLLow1.00-4.00 [facility] on above:Order Comment: Specimen Type: BLOOD SPECIMENOrdering Facility: [facility] Address:[address] [place], [place] [address]Performed By: #### 71516-3 ####[facility] LABCLIA [id number] [place], [place] [address]Rrbecclppax/100 WBC (Bld)10.3 %NormalSamaritan Hospital on above:Order Comment: Specimen Type: BLOOD SPECIMENOrdering Facility: [facility] Address:[address] [place], [place] [address]Performed By: #### 46569-4 ####[facility] LABCLIA [id number] [place], [place] [address]HPT (RBC) [Entitic mass]32.4 voOkwxlb04.0-34.0[facility] on above:Order Comment: Specimen Type: BLOOD SPECIMENOrdering Facility: [facility] Address:[address] [place], [place] [address]Performed By: #### 67704-6 ####[facility] LABCLIA [id number] [place], [place] [address]MAGZ (RBC) [Mass/Vol]35.9 g/vZPfchoz29.5-36.0[facility] on above: Order Comment: Specimen Type: BLOOD SPECIMENOrdering Facility: [facility] Address:[address] [place], [place] [address]Performed By: #### 68735- 8 ####[facility] LABCLIA [id number] [place], [place] [address]AKJ (RBC) [Entitic vol]90.4 iXHtylbn68.0-100.0[facility] on above:Order Comment: Specimen Type: BLOOD SPECIMENOrdering Facility: [facility] Address:[address] [place], [place] [address]Performed By: #### 93848-5 ####[facility] LABIA [id number] [place], [place] [address]Mpnduegtb (Bld) [#/Vol]0.73 10*3/uLNormal<0.87[facility] on above:Order Comment: Specimen Type: BLOOD SPECIMENOrdering Facility: [facility] Address:[address] [place], [place] [address]Performed By: #### 63179- 8 ####[facility] LABCLIA [id number] [place], [place] [address]Xrjedihtx/100 WBC (Bld)9.7 %NormalSamaritan Hospital on above:Order Comment: Specimen Type: BLOOD SPECIMENOrdering Facility: [facility] Address:[address] [place], [place] [address]Performed By: #### 85061-8 ####[facility] LABIA [id number] [place], [place] [address]Jcplbddpauq (Bld) [#/Vol]5.93 10*3/uLNormal1.45-7.50[facility] on above:Order Comment: Specimen Type: BLOOD SPECIMENOrdering Facility: [facility] Address:[address] [place], [place] [address]Performed By: #### 94739-7 ####[facility] LABCLIA [id number] [place], [place] [address]Iuxuywevqqt/100 WBC (Bld)78.4 %NormalSamaritan Hospital on above:Order Comment: Specimen Type: BLOOD SPECIMENOrdering Facility: [facility] Address:[address] [place], [place] [address]Performed By: #### 10230-8 ####[facility] LABCLIA [id number] [place], [place] [address]Kftdcoaca RBC (Bld) [#/Vol] 10*3/uLNormal<0.01[facility] on above:Order Comment: Specimen Type: BLOOD SPECIMENOrdering Facility: [facility] Address:[address] [place], [place] [address]Performed By: #### 89016-7 ####[facility] LABCLIA [id number] [place], [place] [address]Ogkrwwcra RBC/100 WBC (Bld) [Ratio]0.0 /100 WBCNormal [facility] on above:Order Comment: Specimen Type: BLOOD SPECIMENOrdering Facility: [facility] Address:[address] [place], [place] [address]Performed By: #### 62236-1 ####[facility] LABCLIA [id number] [place], [place] [address]Odxrnmuz mean volume (Bld) [Entitic vol]8.5 fLLow9.0-12.7CK[facility] on above:Order Comment: Specimen Type: BLOOD SPECIMENOrdering Facility: [facility] Address:[address] [place], [place] [address]Performed By: #### 31325-9 ####[facility] LABCLIA [id number] [place], [place] [address]Koihybbdu (Bld) [#/Vol]104 10*3/wPVdx213-570IkgsxpmohSamaritan Hospital on above:Order Comment: Specimen Type: BLOOD SPECIMENOrdering Facility: [facility] Address:[address] [place], [place] [address]Performed By: #### 43270-2 ####[facility] LABCLIA [id number] [place], [place] [address]PQG (Bld) [#/Vol]4.07 10*6/uLLow4.20-6.00[facility] on above:Order Comment: Specimen Type: BLOOD SPECIMENOrdering Facility: [facility] Address:[address] [place], [place] [address]Performed By: #### 09152- 8 ####[facility] LABIA [id number] [place], [place] [address]NOJ (Bld) [#/Vol]7.56 10*3/uLNormal3.70-11.00[facility] on above:Order Comment: Specimen Type: BLOOD SPECIMENOrdering Facility: [facility] Address:[address] [place], [place] [address]Performed By: #### 64054-3 ####[facility] [id number] [place], [place] [address]JFMZFZkr 73-19-0670RIRTAEKslzdyRixplaitl Clinic ClevelandComprehensive metabolic 2000 panelon 71-21-8621Jajfkww [Mass/Vol]3.9 g/dLNormal3.9-4.9CK[facility] on above:Order Comment: Specimen Type: BLOOD SPECIMENOrdering Facility: [facility] Address:[address] [place], [place] [address]Performed By: #### 14864-0, 47714-7 ####[facility] LABCLIA [id number] [facility], [place] [address]HWY [Catalytic activity/Vol]116 U/ADrjh75-314CmlnrcceuSamaritan Hospital on above:Order Comment: Specimen Type: BLOOD SPECIMENOrdering Facility: [facility] Address:[address] [place], [place] [address]Performed By: #### 44688- 9, 26888-9 ####[facility] LABCLIA [id number] [facility] [place], [place] [address]ICV [Catalytic activity/Vol]19 U/MYpcmvy36-53 [facility] on above:Order Comment: Specimen Type: BLOOD SPECIMENOrdering Facility: [facility] Address:[address] [place], [place] [address]Performed By: #### 93283-6, 13605-3 ####[facility] LABCLIA [id number] [place], [place] [address]Iuwxh gap [Moles/Vol]8 mmol/LNormal8-15[facility] on above: Order Comment: Specimen Type: BLOOD SPECIMENOrdering Facility: [facility] Address:[address] [place], [place] [address]Performed By: #### 78626- 9, 78425-9 ####[facility] LABCLIA [id number] [facility] [place], [place] [address]VFD [Catalytic activity/Vol]16 U/TRvtcpt08-25 [facility] on above:Order Comment: Specimen Type: BLOOD SPECIMENOrdering Facility: [facility] Address:[address] [place], [place] [address]Performed By: #### 20449-3, 74705-4 ####[facility] LABCLIA [id number] [facility] [place] [address] Bilirubin [Mass/Vol]0.5 mg/dLNormal0.2-1.3CK[facility] on above:Order Comment: Specimen Type: BLOOD SPECIMENOrdering Facility: [facility] Address:[address] [place], [place] [address]Performed By: #### 20117-3, 16321-3 ####[facility] LABCLIA [id number] [place], [place] [address]Lqzgkra [Mass/Vol]9.4 mg/dLNormal8.5-10.2 [facility] on above:Order Comment: Specimen Type: BLOOD SPECIMENOrdering Facility: [facility] Address:[address] [place], [place] [address]Performed By: #### 53407-6, 64464-5 ####[facility] LABCLIA [id number] [place], [place] [address]Olvfkrha [Moles/Vol]98 mmol/CPuawcv21-339QclcoknaoSamaritan Hospital on above: Order Comment: Specimen Type: BLOOD SPECIMENOrdering Facility: [facility] Address:[address] [place], [place] [address]Performed By: #### 59113- 9, 58535-9 ####[facility] LABCLIA [id number] [place], [place] [address]AS3 [Moles/Vol]28 mmol/JKjaych72-17YarmdzyjnSamaritan Hospital on above:Order Comment: Specimen Type: BLOOD SPECIMENOrdering Facility: [facility] Address:[address] [place], [place] [address]Performed By: #### 21456-2, 29409-9 ####[facility] LABCLIA [id number] [place], [place] [address]Gubhitfody [Mass/Vol] 0.86 mg/dLNormal0.73-1.22[facility] on above:Order Comment: Specimen Type: BLOOD SPECIMENOrdering Facility: [facility] Address:[address] [place], [place] [address]Performed By: #### 29848- 9, 43366-9 ####[facility] LABCLIA [id number] [place], [place] [address]kKLXhp SerPlBld CKD-EPI 976882 mL/min/1.73m??? Normal>=60[facility] on above:Order Comment: Specimen Type: BLOOD SPECIMENOrdering Facility: [facility] Address:[address] [place], [place] [address]Result Comment: Estimated Glomerular Filtration Rate (eGFR) is calculated using the 2020 CKD-EPI creatinine equation. This equation utilizes serum creatinine, sex, and age as parameters. The creatinine assay has traceable calibration to isotope dilution-mass spectrometry. Refer to KDIGO guidelines for clinical interpretation. In patients with unstable renal function, e.g. those with acute kidney injury, the eGFR may not accurately reflect actual GFR.Performed By: #### 38247-7, 04424-3 ####[facility] LABCLIA [id number] [place], [place] [address]Odharwo [Mass/Vol]322 mg/tKEhvt78-48GlxkeolhaSamaritan Hospital on above:Order Comment: Specimen Type: BLOOD SPECIMENOrdering Facility: [facility] Address:[address] [place], [place] [address]Result Comment: The [place] Diabetes [employer] (ADA) provides guidance for cutoff values for fast ing glucose and random glucose. The ADA defines fasting as no caloric intake for at least 8 hours. Fasting plasma glucose results between 100 to 125 mg/dL indicate increased risk for diabetes (prediabetes).Fasting plasma glucose results greater than or equal to 126 mg/dL meet the criteria for diagnosis of diabetes. In the absence of unequivocal hyperglycemia, results should be confirmed by repeattesting. In a patient with classic symptoms of hyperglycemia or hyperglycemic crisis, random plasmaglucose results greater than or equal to 200 mg/dL meet the criteria for diagnosis of diabetes.Reference: Standards of Medical Care in Diabetes 2016, [place] [employer]. Diabetes Care. 2016.39(Suppl 1).Performed By: #### 61193-6, 26016-5 ####[facility] LABCLIA [id number] [place] [address] Potassium [Moles/Vol]4.3 mmol/LNormal3.7-5.1CK[facility] on above:Order Comment: Specimen Type: BLOOD SPECIMENOrdering Facility: [facility] Address:[address] [place], [place] [address]Performed By: #### 81731-5, 42766-8 ####[facility] LABCLIA [id number] [place], [place] [address]Jbjgjyr [Mass/Vol]6.1 g/dLLow6.3-8.0 [facility] on above:Order Comment: Specimen Type: BLOOD SPECIMENOrdering Facility: [facility] Address:[address] [place], [place] [address]Performed By: #### 15801-6, 31945-8 ####[facility] LABCLIA [id number] [place], [place] [address]Jzqzoi [Moles/Vol]134 mmol/HEyi882-067MtpqzvwbuSamaritan Hospital on above:Order Comment: Specimen Type: BLOOD SPECIMENOrdering Facility: [facility] Address:[address] [place], [place] [address]Performed By: #### 02324- 9, 79885-2 ####[facility] LABCLIA [id number] [place], [place] [address]Rwlt nitrogen [Mass/Vol]21 mg/dLNormal9-24[facility] on above:Order Comment: Specimen Type: BLOOD SPECIMENOrdering Facility: [facility] Address:[address] [place], [place] [address]Performed By: #### 91100-3, 85085-1 ####[facility] LABCLIA [id number] [place] [address] Magnesium SerPl-mCncon 85-89-7049Jdurwogcn [Mass/Vol]1.8 mg/dLNormal1.7-2.3 [facility] on above:Order Comment: Specimen Type: BLOOD SPECIMENOrdering Facility: [facility] Address:[address] [place], [place] [address]Performed By: #### 73234-6, 10351-1 ####[facility] LABCLIA [id number] [place], [place] [address]LAHBpw [id number] Clinic ClevelandCBC W Auto Differential panel (Bld)on 75-10-8807Qwqfyyjry (Bld) [#/Vol]0.04 10*3/uLNormal<0.11CK[facility] on above:Order Comment: Specimen Type: BLOOD SPECIMENOrdering Facility: [facility] Address:[address] [place], [place] [address]Performed By: #### 86413-8 ####[facility] LABCLIA [id number] [place], [place] [address]Wfmhocguh/100 WBC (Bld)0.5 % NormalSamaritan Hospital on above:Order Comment: Specimen Type: BLOOD SPECIMENOrdering Facility: [facility] Address:[address] [place], [place] [address]Performed By: #### 93114-9 ####[facility] LABCLIA [id number] [place] [id number] Differential cell count method Nom (Bld)AutoNormalCSamaritan North Health Center Comment on above:Order Comment: Specimen Type: BLOOD SPECIMENOrdering Facility: [facility] Address:[address] [place] [address] Performed By: #### 76286-7 ####[facility] LABCLIA [id number] [place], [place] [address]Mipznxpoqrb (Bld) [#/Vol]0.07 10*3/uLNormal<0.46[facility] on above:Order Comment: Specimen Type: BLOOD SPECIMENOrdering Facility: [facility] Address:[address] [place], [place] [address]Performed By: #### 26840-1 ####[facility] LABCLIA [id number] [place], [place] [address]Qzuxfbxyphk/100 WBC (Bld)0.9 %NormalSamaritan Hospital on above:Order Comment: Specimen Type: BLOOD SPECIMENOrdering Facility: [facility] Address:[address] [place], [place] [address]Performed By: #### 75994-6 ####[facility] LABCLIA [id number] [place], [place] [address]Tqkuqwabntr distribution width (RBC) [Ratio]13.4 %Gjonzs92.5-15.0[facility] on above: Order Comment: Specimen Type: BLOOD SPECIMENOrdering Facility: [facility] Address:[address] [place], [place] [address]Performed By: #### 22992- 8 ####[facility] LABCLIA [id number] [place], [place] [address]Mzhhijahlc (Bld) [Volume fraction]41.2 %Hozlpv01.0-51.0 [facility] on above:Order Comment: Specimen Type: BLOOD SPECIMENOrdering Facility: [facility] Address:[address] [place], [place] [address]Performed By: #### 76353-8 ####[facility] LABCLIA [id number] [place], [place] [address]Pphyoqdfal (Bld) [Mass/Vol]14.4 g/fPDwdeat94.0-17.0[facility] on above: Order Comment: Specimen Type: BLOOD SPECIMENOrdering Facility: [facility] Address:[address] [place], [place] [address]Performed By: #### 46088- 8 ####[facility] LABCLIA [id number] [place], [place] [address]Xnsfagkm granulocytes (Bld) [#/Vol]0.06 10*3/uLNormal <0.10[facility] on above:Order Comment: Specimen Type: BLOOD SPECIMENOrdering Facility: [facility] Address:[address] [place], [place] [address]Performed By: #### 21267-4 ####[facility] LABCLIA [id number] [place], [place] [address]Nlfnkksx granulocytes/100 WBC (Bld)0.8 %NormalSamaritan Hospital on above: Order Comment: Specimen Type: BLOOD SPECIMENOrdering Facility: [facility] Address:[address] [place], [place] [address]Performed By: #### 69561- 8 ####[facility] LABCLIA [id number] [place], [place] [address]Gpvzxtcxssq (Bld) [#/Vol]1.06 10*3/uLNormal1.00-4.00 [facility] on above:Order Comment: Specimen Type: BLOOD SPECIMENOrdering Facility: [facility] Address:[address] [place], [place] [address]Performed By: #### 08829-1 ####[facility] LABIA [id number] [place], [place] [address]Znlfwrrxxmo/100 WBC (Bld)13.5 %NormalSamaritan Hospital on above:Order Comment: Specimen Type: BLOOD SPECIMENOrdering Facility: [facility] Address:[address] [place], [place] [address]Performed By: #### 86346-5 ####[facility] LABIA [id number] [place], [place] [address]DTU (RBC) [Entitic mass]31.7 paSnukph02.0-34.0[facility] on above:Order Comment: Specimen Type: BLOOD SPECIMENOrdering Facility: [facility] Address:[address] [place], [place] [address]Performed By: #### 75320-3 ####[facility] LABIA [id number] [place], [place] [address]VFBX (RBC) [Mass/Vol]35.0 g/qJWczzax12.5-36.0[facility] on above: Order Comment: Specimen Type: BLOOD SPECIMENOrdering Facility: [facility] Address:[address] [place], [place] [address]Performed By: #### 78229- 8 ####[facility] LABCLIA [id number] [place], [place] [address]GNC (RBC) [Entitic vol]90.7 lINhzqrc70.0-100.0[facility] on above:Order Comment: Specimen Type: BLOOD SPECIMENOrdering Facility: [facility] Address:[address] [place], [place] [address]Performed By: #### 41806-6 ####[facility] LABCLIA [id number] [place], [place] [address]Bmhwrgsyt (Bld) [#/Vol]1.08 10*3/uLHigh<0.87[facility] on above:Order Comment: Specimen Type: BLOOD SPECIMENOrdering Facility: [facility] Address:[address] [place], [place] [address]Performed By: #### 80887- 8 ####[facility] LABCLIA [id number] [place], [place] [address]Sgrbzxuhx/100 WBC (Bld)13.8 %NormalSamaritan Hospital on above:Order Comment: Specimen Type: BLOOD SPECIMENOrdering Facility: [facility] Address:[address] [place], [place] [address]Performed By: #### 83752-7 ####[facility] LABIA [id number] [place], [place] [address]Bxwgncpbdhn (Bld) [#/Vol]5.54 10*3/uLNormal1.45-7.50[facility] on above:Order Comment: Specimen Type: BLOOD SPECIMENOrdering Facility: [facility] Address:[address] [place], [place] [address]Performed By: #### 47178-9 ####[facility] LABCLIA [id number] [place], [place] [address]Dphlnjggoaf/100 WBC (Bld)70.5 %NormalSamaritan Hospital on above:Order Comment: Specimen Type: BLOOD SPECIMENOrdering Facility: [facility] Address:[address] [place], [place] [address]Performed By: #### 61585-9 ####[facility] LABCLIA [id number] [place], [place] [address]Iwwjiudvn RBC (Bld) [#/Vol] 10*3/uLNormal<0.01[facility] on above:Order Comment: Specimen Type: BLOOD SPECIMENOrdering Facility: [facility] Address:[address] [place], [place] [address]Performed By: #### 36042-8 ####[facility] LABCLIA [id number] [place], [place] [address]Ihzrymqup RBC/100 WBC (Bld) [Ratio]0.0 /100 WBCNormal [facility] on above:Order Comment: Specimen Type: BLOOD SPECIMENOrdering Facility: [facility] Address:[address] [place], [place] [address]Performed By: #### 56230-5 ####[facility] LABIA [id number] [place], [place] [address]Pbcjqqxn mean volume (Bld) [Entitic vol]8.5 fLLow9.0-12.7CKettering [facility] on above:Order Comment: Specimen Type: BLOOD SPECIMENOrdering Facility: [facility] Address:[address] [place], [place] [address]Performed By: #### 42172-0 ####[facility] LABCLIA [id number] [place], [place] [address]Dyshxloff (Bld) [#/Vol]165 10*3/rJUyrqnq933-860DbevrrykiSamaritan Hospital on above:Order Comment: Specimen Type: BLOOD SPECIMENOrdering Facility: [facility] Address:[address] [place], [place] [address]Performed By: #### 56415-6 ####[facility] LABCLIA [id number] [place], [place] [address]NGI (Bld) [#/Vol]4.54 10*6/uLNormal4.20-6.00[facility] on above: Order Comment: Specimen Type: BLOOD SPECIMENOrdering Facility: [facility] Address:[address] [place], [place] [address]Performed By: #### 26675- 8 ####[facility] LABCLIA [id number] [place], [place] [address]VZU (Bld) [#/Vol]7.85 10*3/uLNormal3.70-11.00[facility] on above:Order Comment: Specimen Type: BLOOD SPECIMENOrdering Facility: [facility] Address:[address] [place], [place] [address]Performed By: #### 56771-8 ####[facility] LABCLIA [id number] [place], [place] [address]ACYYILjj 53-52-0347XOLCXMFwllgtDpuehanlh Clinic ClevelandComprehensive metabolic 2000 panelon 10-78-9834Flqrjsp [Mass/Vol]4.1 g/dLNormal3.9-4.9CKet[facility] on above:Order Comment: Specimen Type: BLOOD SPECIMENOrdering Facility: [facility] Address:[address] [place], [place] [address]Performed By: #### 09144-4, 58713-1 ####[facility] LABCLIA [id number] [place], [place] [address]CGN [Catalytic activity/Vol]146 U/ZUswj26-546EiivvsqkkSamaritan Hospital on above:Order Comment: Specimen Type: BLOOD SPECIMENOrdering Facility: [facility] Address:[address] [place], [place] [address]Performed By: #### 65963- 8, ####MICHELLE WRAYUSKY [facility] LABCLIA [id number] [facility] [place] [address]HMJ [Catalytic activity/Vol]19 U/EUnwzmj80-35 [facility] on above:Order Comment: Specimen Type: BLOOD SPECIMENOrdering Facility: [facility] Address:[address] [place], [place] [address]Performed By: #### 89964-0, ####MICHELLE WEISS [facility] LABCLIA [id number] [facility] [place], [place] [address]Tjvat gap [Moles/Vol]9 mmol/LNormal8-15[facility] on above: Order Comment: Specimen Type: BLOOD SPECIMENOrdering Facility: [facility] Address:[address] [place], [place] [address]Performed By: #### 15858- 8, ####MICHELLE WRAYUSKY [facility] LABCLIA [id number] [facility] [place], [place] [address]KHE [Catalytic activity/Vol]16 U/MQjdfvh66-48 [facility] on above:Order Comment: Specimen Type: BLOOD SPECIMENOrdering Facility: [facility] Address:[address] [place], [place] [address]Performed By: #### 80286-1, ####MICHELLE [facility] LABCLIA [id number] [facility] [place] [address] Bilirubin [Mass/Vol]0.5 mg/dLNormal0.2-1.3CK[facility] on above:Order Comment: Specimen Type: BLOOD SPECIMENOrdering Facility: [facility] Address:[address] [place], [place] [address]Performed By: #### 90591-6, 67593-1 ####[facility] LABCLIA [id number] [place], [place] [address]Wlnlzbc [Mass/Vol]9.6 mg/dLNormal8.5-10.2 [facility] on above:Order Comment: Specimen Type: BLOOD SPECIMENOrdering Facility: [facility] Address:[address] [place], [place] [address]Performed By: #### 30905-1, ####[facility] LABCLIA [id number] [place], [place] [address]Snieavmt [Moles/Vol]97 mmol/SAth83-569HlemerhglSamaritan Hospital on above:Order Comment: Specimen Type: BLOOD SPECIMENOrdering Facility: [facility] Address:[address] [place], [place] [address]Performed By: #### 90368- 8, ####[facility] LABCLIA [id number] [place], [place] [address]MO4 [Moles/Vol]28 mmol/QBsjthw30-22VgqzkakthSamaritan Hospital on above:Order Comment: Specimen Type: BLOOD SPECIMENOrdering Facility: [facility] Address:[address] [place], [place] [address]Performed By: #### 29786-4, ####[facility] LABCLIA [id number] [place], [place] [address]Jlodrrixxh [Mass/Vol] 0.92 mg/dLNormal0.73-1.22[facility] on above:Order Comment: Specimen Type: BLOOD SPECIMENOrdering Facility: [facility] Address:[address] [place], [place] [address]Performed By: #### 28631- 8, 17182-3 ####[facility] LABCLIA [id number] [place], [place] [address]nCPOhr SerPlBld CKD-EPI 364888 mL/min/1.73m??? Normal>=60[facility] on above:Order Comment: Specimen Type: BLOOD SPECIMENOrdering Facility: [facility] Address:[address] [place], [place] [address]Jgfrma Comment: Estimated Glomerular Filtration Rate (eGFR) is calculated using the 2020 CKD-EPI creatinine equation. This equation utilizes serum creatinine, sex, and age as parameters. The creatinine assay has traceable calibration to isotope dilution-mass spectrometry. Refer to KDIGO guidelines for clinical interpretation. In patients with unstable renal function, e.g. those with acute kidney injury, the eGFR may not accurately reflect actual GFR.Performed By: #### 41080-5, ####[facility] LABCLIA [id number] [place], [place] [address]Mgewwka [Mass/Vol]448 mg/uJCirl29-40EucuklzbfSamaritan Hospital on above:Order Comment: Specimen Type: BLOOD SPECIMENOrdering Facility: [facility] Address:[address] [place] [address]Vfaphg Comment: The [place] [employer] (ADA) provides guidance for cutoff values for fast ing glucose and random glucose. The ADA defines fasting as no caloric intake for at least 8 hours. Fasting plasma glucose results between 100 to 125 mg/dL indicate increased risk for diabetes (prediabetes).Fasting plasma glucose results greater than or equal to 126 mg/dL meet the criteria for diagnosis of diabetes. In the absence of unequivocal hyperglycemia, results should be confirmed by repeattesting. In a patient with classic symptoms of hyperglycemia or hyperglycemic crisis, random plasmaglucose results greater than or equal to 200 mg/dL meet the criteria for diagnosis of diabetes.Reference: Standards of Medical Care in Diabetes 2016, [place] [employer]. Diabetes Care. 2016.39(Suppl 1).Performed By: #### 05421-7, 80543-2 ####[facility] LABCLIA [id number] [place] [address] Potassium [Moles/Vol]4.6 mmol/LNormal3.7-5.1CKet[facility] on above:Order Comment: Specimen Type: BLOOD SPECIMENOrdering Facility: [facility] Address:[address] [place], [place] [address]Performed By: #### 47469-9, 02942-1 ####[facility] LABCLIA [id number] [place], [place] [address]Mvypqsv [Mass/Vol]6.8 g/dLNormal6.3-8.0 [facility] on above:Order Comment: Specimen Type: BLOOD SPECIMENOrdering Facility: [facility] Address:[address] [place], [place] [address]Performed By: #### 85364-1, ####[facility] LABCLIA [id number] [place], [place] [address]Jqqrqe [Moles/Vol]134 mmol/BBcn175-084YqfknpclfSamaritan Hospital on above:Order Comment: Specimen Type: BLOOD SPECIMENOrdering Facility: [facility] Address:[address] [place], [place] [address]Performed By: #### 81995- 8, 15427-1 ####[facility] LABCLIA [id number] [place], [place] [address]Ndoq nitrogen [Mass/Vol]23 mg/dLNormal9-24[facility] on above:Order Comment: Specimen Type: BLOOD SPECIMENOrdering Facility: [facility] Address:[address] [place], [place] [address]Performed By: #### 71786-4, 60728-9 ####[facility] LABCLIA [id number] [place] [address] Magnesium SerPl-mCncon 29-62-4435Gsvmrdjji [Mass/Vol]1.7 mg/dLNormal1.7-2.3 [facility] on above:Order Comment: Specimen Type: BLOOD SPECIMENOrdering Facility: [facility] Address:[address] [place], [place] [address]Performed By: #### 41130-3, 18734-4 ####[facility] LABCLIA [id number] [place], [place] [address]FFZZqk 07-88-8707RIXIGehtpuVoxaaunxu Clinic ClevelandCNPNon 37-82-5287CGULOuditl [facility] CenterCB W Auto Differential panel (Bld)on 03-11-2025 Basophils (Bld) [#/Vol]0.05 10*3/uLNormal<0.11CK[facility] on above:Order Comment: Specimen Type: BLOOD SPECIMENOrdering Facility: [facility] Address:[address] [place] [address] Performed By: #### 93944-3 ####[facility] LABCLIA [id number] [place], [place] [address]Ujjgfsekp/100 WBC (Bld)0.6 % NormalSamaritan Hospital on above:Order Comment: Specimen Type: BLOOD SPECIMENOrdering Facility: [facility] Address:[address] [place], [place] [address]Performed By: #### 09838-2 ####[facility] LABCLIA [id number] [place] [address] Differential cell count method Nom (Bld)AutoNormalCSamaritan North Health Center Comment on above:Order Comment: Specimen Type: BLOOD SPECIMENOrdering Facility: [facility] Address:[address] [place] [address] Performed By: #### 21003-5 ####[facility] LABCLIA [id number] [place], [place] [address]Fuwsrbjzwht (Bld) [#/Vol]0.15 10*3/uLNormal<0.46[facility] on above:Order Comment: Specimen Type: BLOOD SPECIMENOrdering Facility: [facility] Address:[address] [place], [place] [address]Performed By: #### 55825-2 ####[facility] LABCLIA [id number] [place], [place] [address]Gictvestlil/100 WBC (Bld)1.7 %NormalSamaritan Hospital on above:Order Comment: Specimen Type: BLOOD SPECIMENOrdering Facility: [facility] Address:[address] [place], [place] [address]Performed By: #### 33899-0 ####[facility] LABIA [id number] [place], [place] [address]Cbjlktehplo distribution width (RBC) [Ratio]13.5 %Zuslus74.5-15.0[facility] on above: Order Comment: Specimen Type: BLOOD SPECIMENOrdering Facility: [facility] Address:[address] [place], [place] [address]Performed By: #### 76491- 8 ####[facility] LABIA [id number] [place], [place] [address]Lrjfsvnmsy (Bld) [Volume fraction]42.5 %Krekgd86.0-51.0 [facility] on above:Order Comment: Specimen Type: BLOOD SPECIMENOrdering Facility: [facility] Address:[address] [place], [place] [address]Performed By: #### 19935-2 ####[facility] LABIA [id number] [place], [place] [address]Mznifyclbu (Bld) [Mass/Vol]14.9 g/vITomgfb93.0-17.0[facility] on above: Order Comment: Specimen Type: BLOOD SPECIMENOrdering Facility: [facility] Address:[address] [place], [place] [address]Performed By: #### 52894- 8 ####[facility] LABIA [id number] [place], [place] [address]Lxanzxjk granulocytes (Bld) [#/Vol]0.06 10*3/uLNormal <0.10[facility] on above:Order Comment: Specimen Type: BLOOD SPECIMENOrdering Facility: [facility] Address:[address] [place], [place] [address]Performed By: #### 34064-1 ####[facility] LABCLIA [id number] [place], [place] [address]Jzbfdxup granulocytes/100 WBC (Bld)0.7 %NormalSamaritan Hospital on above: Order Comment: Specimen Type: BLOOD SPECIMENOrdering Facility: [facility] Address:[address] [place], [place] [address]Performed By: #### 05173- 8 ####[facility] LABCLIA [id number] [place], [place] [address]Uavobnluetj (Bld) [#/Vol]1.54 10*3/uLNormal1.00-4.00 [facility] on above:Order Comment: Specimen Type: BLOOD SPECIMENOrdering Facility: [facility] Address:[address] [place], [place] [address]Performed By: #### 09224-6 ####[facility] LABIA [id number] [place], [place] [address]Gspdiffvlrq/100 WBC (Bld)17.6 %NormalSamaritan Hospital on above:Order Comment: Specimen Type: BLOOD SPECIMENOrdering Facility: [facility] Address:[address] [place], [place] [address]Performed By: #### 11789-8 ####[facility] LABCLIA [id number] [place], [place] [address]UHD (RBC) [Entitic mass]31.7 xxPwrega63.0-34.0[facility] on above:Order Comment: Specimen Type: BLOOD SPECIMENOrdering Facility: [facility] Address:[address] [place], [place] [address]Performed By: #### 66037-7 ####[facility] LABIA [id number] [place], [place] [address]GTZU (RBC) [Mass/Vol]35.1 g/nFEgwalg72.5-36.0[facility] on above: Order Comment: Specimen Type: BLOOD SPECIMENOrdering Facility: [facility] Address:[address] [place], [place] [address]Performed By: #### 75868- 8 ####[facility] LABCLIA [id number] [place], [place] [address]YSD (RBC) [Entitic vol]90.4 yTDfbudt22.0-100.0[facility] on above:Order Comment: Specimen Type: BLOOD SPECIMENOrdering Facility: [facility] Address:[address] [place], [place] [address]Performed By: #### 53134-0 ####[facility] LABCLIA [id number] [place], [place] [address]Edrhnzrtf (Bld) [#/Vol]0.95 10*3/uLHigh<0.87[facility] on above:Order Comment: Specimen Type: BLOOD SPECIMENOrdering Facility: [facility] Address:[address] [place], [place] [address]Performed By: #### 54000- 8 ####[facility] LABCLIA [id number] [place], [place] [address]Scgzapkhs/100 WBC (Bld)10.9 %NormalSamaritan Hospital on above:Order Comment: Specimen Type: BLOOD SPECIMENOrdering Facility: [facility] Address:[address] [place], [place] [address]Performed By: #### 84547-7 ####[facility] LABIA [id number] [place], [place] [address]Siydhlpbgdg (Bld) [#/Vol]5.99 10*3/uLNormal1.45-7.50[facility] on above:Order Comment: Specimen Type: BLOOD SPECIMENOrdering Facility: [facility] Address:[address] [place], [place] [address]Performed By: #### 70499-0 ####[facility]ADLEIDA [facility] LABCLIA [id number] [place], [place] [address]Tvepyzcwmrs/100 WBC (Bld)68.5 %NormalSamaritan Hospital on above:Order Comment: Specimen Type: BLOOD SPECIMENOrdering Facility: [facility] Address:[address] [place], [place] [address]Performed By: #### 09210-7 ####[facility] LABCLIA [id number] [place], [place] [address]Syzgqqcrt RBC (Bld) [#/Vol] 10*3/uLNormal<0.01[facility] on above:Order Comment: Specimen Type: BLOOD SPECIMENOrdering Facility: [facility] Address:[address] [place], [place] [address]Performed By: #### 34224-1 ####[facility] LABCLIA [id number] [place], [place] [address]Qdzwstkdf RBC/100 WBC (Bld) [Ratio]0.0 /100 WBCNormal [facility] on above:Order Comment: Specimen Type: BLOOD SPECIMENOrdering Facility: [facility] Address:[address] [place], [place] [address]Performed By: #### 44632-6 ####[facility] LABCLIA [id number] [place], [place] [address]Jiuwzioz mean volume (Bld) [Entitic vol]8.1 fLLow9.0-12.7CKettering [facility] on above:Order Comment: Specimen Type: BLOOD SPECIMENOrdering Facility: [facility] Address:[address] [place], [place] [address]Performed By: #### 26640-9 ####[facility] LABCLIA [id number] [place], [place] [address]Bbtwnoegn (Bld) [#/Vol]146 10*3/dQIzt682-594RcndxnkauSamaritan Hospital on above:Order Comment: Specimen Type: BLOOD SPECIMENOrdering Facility: [facility] Address:[address] [place], [place] [address]Performed By: #### 70090-2 ####[facility] LABCLIA [id number] [place], [place] [address]MYK (Bld) [#/Vol]4.70 10*6/uLNormal4.20-6.00[facility] on above: Order Comment: Specimen Type: BLOOD SPECIMENOrdering Facility: [facility] Address:[address] [place], [place] [address]Performed By: #### 20403- 8 ####[facility] LABCLIA [id number] [place], [place] [address]DCJ (Bld) [#/Vol]8.74 10*3/uLNormal3.70-11.00[facility] on above:Order Comment: Specimen Type: BLOOD SPECIMENOrdering Facility: [facility] Address:[address] [place], [place] [address]Performed By: #### 73102-5 ####[facility] LABIA [id number] [facility] CENTERARTHURCHARL[place], [place] [address]ZQTSdo [id number] Clinic ClevelandCNOVSPon 64-93-4917FVTWVHDoqpdi [facility] Medical CenterComprehensive metabolic 2000 panelon [id number] [Mass/Vol]4.2 g/dLNormal3.9-4.9CKet[facility] on above:Order Comment: Specimen Type: BLOOD SPECIMENOrdering Facility: [facility] Address:[address] [place], [place] [address]Performed By: #### [id number]- 8 ####[facility] LABCLIA [id number] [facility] [place], [place] [address]BRH [Catalytic activity/Vol]133 U/LXaeu63-664DudvfifoeSamaritan Hospital on above:Order Comment: Specimen Type: BLOOD SPECIMENOrdering Facility: [facility] Address:[address] [place], [place] [address]Performed By: #### [id number] ####[facility] LABCLIA [id number] [place], [place] [address]VQP [Catalytic activity/Vol]19 U/LKrfrao79-62NshmnwoaySamaritan Hospital on above:Order Comment: Specimen Type: BLOOD SPECIMENOrdering Facility: [facility] Address:[address] [place], [place] [address]Performed By: #### [id number]- 8 ####[facility] LABCLIA [id number] [place], [place] [address]Nohyd gap [Moles/Vol]11 mmol/LNormal8-15[facility] on above:Order Comment: Specimen Type: BLOOD SPECIMENOrdering Facility: [facility] Address:[address] [place], [place] [address]Performed By: #### 80719-6 ####[facility] LABCLIA [id number] [place], [place] [address]SZP [Catalytic activity/Vol]18 U/IEccunv67-40NyeepxxlmSamaritan Hospital on above:Order Comment: Specimen Type: BLOOD SPECIMENOrdering Facility: [facility] Address:[address] [place], [place] [address]Performed By: #### [id number] ####[facility] LABCLIA [id number] [place] [address] Bilirubin [Mass/Vol]0.6 mg/dLNormal0.2-1.3CKettering Memorial [facility] on above:Order Comment: Specimen Type: BLOOD SPECIMENOrdering Facility: [facility] Address:[address] [place], [place] [address]Performed By: #### 81372-5 ####[facility] LABCLIA [id number] [facility] [place], [place] [address]Pmtxwwt [Mass/Vol]10.0 mg/dLNormal8.5-10.2CKettering Memorial Hospital on above:Order Comment: Specimen Type: BLOOD SPECIMENOrdering Facility: [facility] Address:[address] [place], [place] [address]Performed By: #### 54243-7 ####[facility] LABCLIA [id number] [facility], [place] [address]Updrckqx [Moles/Vol]100 mmol/COgorgb67-972SjrxvthinSamaritan Hospital on above: Order Comment: Specimen Type: BLOOD SPECIMENOrdering Facility: [facility] Address:[address] [place], [place] [address]Performed By: #### 50958- 8 ####[facility] LABCLIA [id number] [facility] HOSPITALFREDYC[place], [place] [address]RX4 [Moles/Vol]26 mmol/XJwkkcy39-44TghnwmkmiSamaritan Hospital on above:Order Comment: Specimen Type: BLOOD SPECIMENOrdering Facility: [facility] Address:[address] [place], [place] [address]Performed By: #### 63294-6 ####[facility] LABCLIA [id number] [facility] H[place]ITALFR[place], [place] [address]Zxpbgynopl [Mass/Vol]0.93 mg/dL Normal0.73-1.22[facility] on above:Order Comment: Specimen Type: BLOOD SPECIMENOrdering Facility: [facility] Address:[address] [place], [place] [address]Performed By: #### 43814-5 ####[facility] LABCLIA [id number] [facility] HOSPITALFR[place]YC[place], [place] [address]vMBDiy SerPlBld CKD-EPI 968618 mL/min/1.73m???Normal>=60 [facility] on above:Order Comment: Specimen Type: BLOOD SPECIMENOrdering Facility: [facility] Address:[address] [place], [place] [address]Result Comment: Estimated Glomerular Filtration Rate (eGFR) is calculated using the 2020 CKD-EPI creatinine equation. This equation utilizes serum creatinine, sex, and age as parameters. The creatinine assay has traceable calibration to isotope dilution-mass spectrometry. Refer to KDIGO guidelines for clinical interpretation. In patients with unstable renal function, e.g. those with acute kidney injury, the eGFR may not accurately reflect actual GFR.Performed By: #### 41057-2 ####[facility] LABCLIA [id number] [place], [place] [address]Oopfoie [Mass/Vol]218 mg/dXYrcr86-13GeeasmpgsSamaritan Hospital on above:Order Comment: Specimen Type: BLOOD SPECIMENOrdering Facility: [facility] Address:[address] [place], [place] [address]Zaadua Comment: The [place] Diabetes Association (ADA) provides guidance for cutoff values for fast ing glucose and random glucose. The ADA defines fasting as no caloric intake for at least 8 hours. Fasting plasma glucose results between 100 to 125 mg/dL indicate increased risk for diabetes (prediabetes).Fasting plasma glucose results greater than or equal to 126 mg/dL meet the criteria for diagnosis of diabetes. In the absence of unequivocal hyperglycemia, results should be confirmed by repeattesting. In a patient with classic symptoms of hyperglycemia or hyperglycemic crisis, random plasmaglucose results greater than or equal to 200 mg/dL meet the criteria for diagnosis of diabetes.Reference: Standards of Medical Care in Diabetes 2016, [place] [employer]. Diabetes Care. 2016.39(Suppl 1).Performed By: #### 28718-2 ####[facility] LABCLIA [id number] [place], [place] [address]Qekwhfold [Moles/Vol]4.4 mmol/LNormal3.7-5.1CKettering Memorial Hospital on above: Order Comment: Specimen Type: BLOOD SPECIMENOrdering Facility: [facility] Address:[address] [place], [place] [address]Uzyelmhsu By: #### 87764- 8 ####[facility] LABCLIA [id number] [place], [place] [address]Yqtnsaf [Mass/Vol]6.8 g/dLNormal6.3-8.0[facility] on above:Order Comment: Specimen Type: BLOOD SPECIMENOrdering Facility: [facility] Address:[address] [place], [place] [address]Performed By: #### 19633-8 ####[facility] LABCLIA [id number] [place], [place] [address]Imujjh [Moles/Vol]137 mmol/L Mnslae906-887TkacgirfqSamaritan Hospital on above:Order Comment: Specimen Type: BLOOD SPECIMENOrdering Facility: [facility] Address:[address] [place], [place] [address]Performed By: #### 24343-5 ####[facility] LABCLIA [id number] [place] [address] Urea nitrogen [Mass/Vol]15 mg/dLNormal9-24[facility] on above:Order Comment: Specimen Type: BLOOD SPECIMENOrdering Facility: [facility] Address:[address] [place], [place] [address]Performed By: #### 67315-5 ####[facility] LABIA [id number] [place], [place] [address]RVFJTQTYShp 17-46-5923WNKZUWABCWtswhiKpyiqxpcm [facility] CenterCNNURSEon 96-46-3735DSKNXKYBrjslgZdgocqgyj [facility] CenterCNOV on 63-19-0277LZOKRhavjgBpttpgzkq [facility] CenterCNOVNormalCmemorial hospitaland [facility] Medical CenterANES POSTPROC EVALon 64-73-0480WYXA POSTPROC EVALHNO ID: [id number] Author: DEMI COULTER MD Service: ? Author Type: Anesthesiologist Type: Anesthesia Postprocedure Evaluation Filed: 02/24/2025 16:19 Note Text: POST ANESTHESIA EVALUATION NOTE : 1940 Procedure Summary Date: 02/24/25 Room / Location: GI02 / [facility] GI Anesthesia Start: 1315 Anesthesia Stop: 1412 Procedure: BRONCHOSCOPY,RIGID/FLEXIBLE W/ FLUORO,W/ENDOBRONCHIAL ULTRASOUND (EBUS) GUIDED TRANSTRACHEAL/ TRANSBRONCHIAL [...] February 24, 2025 TIME: 4:19 PM CSN: [id number] General Hospital PRE-OPon 37-89-1938QFTF PRE-OPHNO ID: [id number] Author: DEMI COULTER MD Service: ? Author Type: Anesthesiologist Type: Anesthesia Preprocedure Evaluation Filed: 02/24/2025 12:43 Note Text: ANESTHESIOLOGY DAY OF SURGERY NOTE : 1940 Procedure Information Date/Time: 02/24/25 1300 Procedure: BRONCHOSCOPY,RIGID/FLEXIBLE W/ FLUORO,W/ENDOBRONCHIAL ULTRASOUND (EBUS) GUIDED TRANSTRACHEAL/ TRANSBRONCHIAL [...] and consent discussed: yes. Patient / Responsible Constitution Party agrees to proceed: yes Patient / [...] February 24, 2025 TIME: 12:43 PM CSN: [id number] HospitalCYTOLOGY NON-GYNon 51-52-5651UZZPCULV INTERPRETATIONNoLemuel Shattuck Hospital HospitalComment on above:Order Comment: Specimen Type: SPECIMEN OBTAINED BY ASPIRATIONOrdering Facility: [facility] Address: [address] [place], [place] [address]Result Comment: A: #1 Lymphoid sample #2 Non-diagnostic B: #1, 5 Lymphoid sample #2, 3, 4, 6 Non-diagnostic Dr. Lamar / Luis Pike Each letter in the above intra-procedural assessment refers to a unique site. The specific site is indicated in the final diagnosis portion of the report. Each number in this assessment references a discrete evaluation episode. Intra-procedural assessment performed at [facility], [address] [place], [place] [address]Performed By: #### CYTONON ####[facility] LABORATORYCLIA [id number] [address] AMERICAAP DISCLAIMERNormSpringfield Hospital Medical CenterComment on above:Order Comment: Specimen Type: SPECIMEN OBTAINED BY ASPIRATIONOrdering Facility: [facility] Address: [address] [place], [place] [address]Result Comment: Laboratory Developed Test (LDT) Disclaimer: Performance characteristics of immunohistochemical, immunofluorescent, and chromogenic in-situ hybridization tests have been determined by the performing laboratory within [facility]'s [facility] Pathology and Laboratory Medicine Department ([facility], [facility], [facility], [facility], [facility], [facility], or [facility]) in a manner consistent with CLIA requirements. One or more of these tests may not have been cleared or approved by the FDA. [facility] is regulated under CLIA as qualified to perform high- complexity testing. These tests are used for clinical purposes. These should not be regarded asinvestigational or for research. Positive and negative controls stain appropriately.Performed By: #### CYTONON ####[facility] LABORATORYIA [id number] [address]CASE REPORTNormSpringfield Hospital Medical CenterComment on above:Order Comment: Specimen Type: SPECIMEN OBTAINED BY ASPIRATIONOrdering Facility: [facility] Address: [address] [place], [place] [address]Result Comment: Medical Cytology Report Case: [id number] Authorizing Provider: Gonzalo Ricks MD Collected: 02/24/2025 01:04 PM Ordering Location: [facility] Received: 02/25/2025 06:46 AM Endoscopy - ENDO Pathologist: Saira Lamar MD Specimens: A) - Lymph Node, Transbronchial, 11RS B) - Lymph Node, Transbronchial, 4RPerformed By: #### CYTONON ####[facility] LABORATORYIA [id number] [address] [facility] GOD HOSPITALCLINICAL HISTORYNormJewish Healthcare Center HospitalComment on above:Order Comment: Specimen Type: SPECIMEN OBTAINED BY ASPIRATIONOrdering Facility: [facility] Address: [address] [place], [place] [address]Result Comment: Pre-op diagnosis: Adenopathy [R59.9] LymphadenopathyPerformed By: #### CYTONON ####[facility] LABORATORYCLIA [id number] [address]FINAL DIAGNOSISNormalAnna HospitalComment on above:Order Comment: Specimen Type: SPECIMEN OBTAINED BY ASPIRATIONOrdering Facility: [facility] Address: [address] [place], [place] [address]Result Comment: A - Lymph Node, Transbronchial, FNA - 11RS Negative for malignant cells. Benign lymphoid sample. B - Lymph Node, Transbronchial, FNA - 4R Negative for malignant cells. Benign lymphoid sample. The following cell blocks were associated with this case: A1 Cell Block, Alcohol Fixed B1 Cell Block, Alcohol Fixed at 1513 EDTPerformed By: #### CYTONON ####[facility] LABORATORYCLIA [id number] [address]FINFL PERFORMING LABNormal [facility] HospitalComment on above:Order Comment: Specimen Type: SPECIMEN OBTAINED BY ASPIRATIONOrdering Facility: [facility] Address: [address] [place], [place] [address]Result Comment: Technical component, director of user experience screening performed at: [facility], [address] [place] [address] CLIA: [id number] Diagnostic interpretation performed at: [facility], [address] [place] [address] CLIA# [id number] [employer]: MATT Loveerformed By: #### CYTONON ####[facility] LABORATORYCLIA [id number] [address]GROSS DESCRIPTIONLawrence F. Quigley Memorial HospitalComment on above:Order Comment: Specimen Type: SPECIMEN OBTAINED BY ASPIRATIONOrdering Facility: [facility] Address: [address] [place], [place] [address]Result Comment: A. Lymph Node, Transbronchial 30 cc clear colorless CytoLyt with scant particles. ThinPrep and Cell Block prepared and 4 smears (2 air dried and 2 fixed). B. Lymph Node, Transbronchial 30 cc clear colorless CytoLyt with scant particles. ThinPrep and Cell Block prepared and 12 smears (6 air dried and 6 fixed).Performed By: #### CYTONON ####[facility] LABORATORYCLIA [id number] [address]ORDER [facility] HospitalComment on above: Order Comment: Specimen Type: SPECIMEN OBTAINED BY ASPIRATIONOrdering Facility: [facility] Address: [address] [place], [place] [address] [address]Result Comment: Pre-op diagnosis: Adenopathy [R59.9]Performed By: #### CYTONON ####[facility] LABORATORYCLIA [id number] [address] 06-74-9296IKWGRMU PROBECKLEY [facility] ID: [id number] Author: PETE GOVEA RN Service: Pulmonary Disease [...] have further questions or concerns, please call [phone]. If you experience any shortness of breath or coughing up a tablespoon of bright red blood, please go to the nearest ED. YONATAN Swartz Pulmonary Care CoordinatorNoWestern [facility] 02-[facility]-2025 N[facility]SING [facility] ID: [id number] Author: PETE GOVEA RN Service: Pulmonary Disease [...] Signed By: Pete Govea RN In Department: [facility] ENDOSCOPY - ENDO Time spent on patient education: 07 minutes.[facility] 52-91-9093RQYDDosmji Visit (PUFAMO) CHAD MCKEON ([id number]) 1940 M Date Time Provider Department 02/19/25 10:30 AM GONZALO RICKS PUFAMO During your visit today, we recorded the following information about you: Pulse Blood pressure Weight Height 73/minute 134/83 90.7 kg 1.727 m Gonzalo Ricks MD 02/19/2025 11:39 AM Signed Interventional Pulmonary Consultation Date of Service: February 19, 2025 Patient: Chad Mckeon Medical Record: [id number] Primary Care Physician: aFusto Juarez MD Referring Provider: Hubert Grant MD [...] which included preparing to see the patient, pfzp-nq-klod patient care, completing clinical documentation, obtaining and/or reviewing separately obtained history, performing a medically appropriate examination, counseling and educating the patient/family/caregiver, ordering medications, tests, or procedures, communicating with other HCPs (not separately reported), independently interpreting results (not separately reported), communicating results to the patient/family/caregiver, and care coordination (not separately reported). Allergies As of Date: 02/19/2025 (No Known Allergies) Date Reviewed: 02/19/2025 Reviewed by: Dank Hinton MA - Fully Assessed Primary Visit Diagnosis:Adenopathy [R59.9] Other Visit Diagnoses:Head and neck cancer (HCC) [C76.0] Type 2 di (more content not included)...NormalAnna HospitalHISTORY PHYSICAL on 01-71-8486SSDJVVR PHYSICALHNO ID: [id number] Author: GONZALO RICKS MD Service: ? Author Type: Physician Type: H&P Filed: 02/19/2025 11:39 Note Text: Interventional Pulmonary Consultation Date of Service: February 19, 2025 Patient: Chad Mckeon Medical Record: [id number] Primary Care Physician: Fausto Juarez MD Referring Provider: Hbuert Grant MD History of Present Illness Chad [...] which included preparing to see the patient, zaud-wx-hkht patient care, completing clinical documentation, obtaining and/or reviewing separately obtained history, performing a medically appropriate examination, counseling and educating the patient/family/caregiver, ordering medications, tests, or procedures, communicating with other HCPs (not separately reported), independently interpreting results (not separately reported), communicating results to the patient/family/caregiver, and care coordination (not separately reported).Normal [facility] 76-88-8681LIEGJshbojwld (PUFAMO) CHAD MCKEON ([id number]) 1940 M Date Time Provider Department 02/17/25 GONZALO RICKS During your visit today, we recorded the following information about you: Farhad Ovalles LPN 02/17/2025 10:00 AM Signed Bronch scheduled for 02/24/25. Echo report received from [facility]. Please review under Cardiac Tab. Thank you. [...] [C3*02/01/2025 Encounter Status:Closed by FARHAD OVALLES on 02/23/25[facility] 51-77-8275FWKQByuofvgav (PUFAMO) CHAD MCKEON ([id number]) 1940 M Date Time Provider Department 02/13/25 PETE GOVEA During your visit today, we recorded the [...] [C3*02/01/2025 Encounter Status:Closed by PETE GOVEA on 02/13/25[facility] echo transthoracicon 99-28-4258MYV echo transthoracicFAYETTE COUNTY [facility]IAL [place] [address] Echocardiogram Signed Patient: Chad Mckeon MR#: [id number] : 1940 Acct:[id number] Age/Sex: 84 / M ADM Date: 02/12/25 Loc: Room: Type: [facility] Attending Dr: Fausto Juarez MD Ordering Provider: Fausto Juarez MD Date of Service: 02/12/25/ E[facility] echo transthoracic: CP Copies to: MD Chio [...] 1500 Signed By: Chio Mendes MD 02/12/[address] [place] [address] Physician GroupCNPNon 97-90-1457FHBCSvatpaUoxeaemskTrinity Health System Twin City Medical CenterCNOVon 45-98-9155NHAL [facility] HospitalCNPNon 22-72-4009CCWHNowswkPxqobriwrTrinity Health System Twin City Medical CenterCNPNon 92-22-4560XRJGLvgugxTlqrvfpxnTrinity Health System Twin City Medical CenterPE+CT Guidance for localization of tumor of Skull [...] * Uptake Time: 61 minutes * Radiopharmaceutical: G14-Woynzduidpikflfltj (FDG) COMPARISON: No previous FDG PET/CT available [...] to evaluate for characteristic (more content not included)...DIVISION OF RADIOLOGYProvider, [facility] [place] - 01/31/2025 * * *Final Report* * [...] * Uptake Time: 61 minutes * Radiopharmaceutical: I20-Igfakbwtmrizunedgu (FDG) COMPARISON: No previous FDG PET/CT available [...] to evaluate for ch (more content not included)...[facility] HospitalPET+CT Guidance for localization of tumor of Skull base to mid-thigh-- W 18F-FDG IVOrdered By: Ccf Provider on 04-11-3219Pjacfxnbr [facility] W Auto Differential panel (Bld)on 27-56-8657Fpdzqdlpr (Bld) [#/Vol]0.04 10*3/uLNINFCleMercy HealthBasophils/100 WBC (Bld)0.5 %[facility] HospitalDifferential cell count method Nom (Bld)Auto [facility] HospitalEosinophils (Bld) [#/Vol]0.08 10*3/uLNINFWood County Hospital Eosinophils/100 WBC (Bld)0.9 %[facility] HospitalErythrocyte distribution width (RBC) [Ratio]13.6 %11.5 - 15.0 %[facility] HospitalHematocrit (Bld) [Volume fraction]42.6 %39.0 - 51.0 %[facility] HospitalHemoglobin (Bld) [Mass/Vol]15 g/dL 13.0 - 17.0 g/dLWood County HospitalImmature granulocytes (Bld) [#/Vol]0.07 10*3/uL NINFCLancaster Municipal HospitalImmature granulocytes/100 WBC (Bld)0.8 %[facility] Interpretation and review of laboratory resultsAbnormalCLancaster Municipal Hospital Lymphocytes (Bld) [#/Vol]1.43 10*3/uLWood County HospitalLymphocytes/100 WBC (Bld) 16.7 %[facility] CenterH (RBC) [Entitic mass]31.4 pg26.0 - 34.0 pgClevelVirginia HospitalHC (RBC) [Mass/Vol]35.2 g/dL30.5 - 36.0 g/dLMetroHealth Parma Medical CenterV (RBC) [Entitic vol]89.3 fL80.0 - 100.0 fLCLancaster Municipal HospitalMonocytes (Bld) [#/Vol]1.15 10*3/uLHighNIAshtabula County Medical CenterMonocytes/100 WBC (Bld)13.4 %[facility] Neutrophils (Bld) [#/Vol]5.79 10*3/uLWood County HospitalNeutrophils/100 WBC (Bld) 67.7 %[facility] HospitalNucleated RBC (Bld) [#/Vol]NINFCLancaster Municipal HospitalNucleated RBC/100 WBC (Bld) [Ratio]0 %/100 WBCWood County HospitalPlatelet mean volume (Bld) [Entitic vol]8.6 fLLow9.0 - 12.7 fLClevelunc health ClinicPlatelets (Bld) [#/Vol]139 10*3/uLLowWood County HospitalRBC (Bld) [#/Vol]4.77 10*6/uL4.20 - 6.00 m/[facility] HospitalWBC (Bld) [#/Vol]8.56 10*3/uLSelect Medical Specialty Hospital - YoungstownBasophils (Bld) [#/Vol]0.04 10*3/uLNormal<0.11CKettering Memorial Hospital on above: Order Comment: Specimen Type: BLOOD SPECIMENOrdering Facility: [facility] Address:[address] [place], [place] [address]Performed By: #### 46159- 8 ####[facility] LABCLIA [id number] [place], [place] [address]Wwswuvich/100 WBC (Bld)0.5 %NormalSamaritan Hospital on above:Order Comment: Specimen Type: BLOOD SPECIMENOrdering Facility: [facility] Address:[address] [place], [place] [address]Performed By: #### 14532-6 ####[facility] LABCLIA [id number] [place], [place] [address]Whyhjnnmernt cell count method Nom (Bld)AutoNormalCKettering Memorial Hospital on above:Order Comment: Specimen Type: BLOOD SPECIMENOrdering Facility: [facility] Address:[address] [place], [place] [address]Performed By: #### 41907-4 ####[facility] LABCLIA [id number] [place], [place] [address]Xnodifkkivw (Bld) [#/Vol]0.08 10*3/uLNormal<0.46[facility] on above:Order Comment: Specimen Type: BLOOD SPECIMENOrdering Facility: [facility] Address:[address] [place], [place] [address]Performed By: #### 57514-0 ####[facility] LABCLIA [id number] [place], [place] [address]Wdgdiebttna/100 WBC (Bld)0.9 %NormalSamaritan Hospital on above:Order Comment: Specimen Type: BLOOD SPECIMENOrdering Facility: [facility] Address:[address] [place], [place] [address]Performed By: #### 47691-1 ####[facility] LABCLIA [id number] [place], [place] [address]Ytdvgkjeltd distribution width (RBC) [Ratio]13.6 %Normal 11.5-15.0[facility] on above:Order Comment: Specimen Type: BLOOD SPECIMENOrdering Facility: [facility] Address:[address] [place], [place] [address]Performed By: #### 20692-8 ####[facility] LABIA [id number] [place] [address] Hematocrit (Bld) [Volume fraction]42.6 %Pjmsjb89.0-51.0[facility] on above:Order Comment: Specimen Type: BLOOD SPECIMENOrdering Facility: [facility] Address:[address] [place], [place] [address]Performed By: #### 33492-5 ####[facility] LABIA [id number] [place], [place] [address]Lnvldognts (Bld) [Mass/Vol]15.0 g/uCWdyqsk36.0-17.0[facility] on above:Order Comment: Specimen Type: BLOOD SPECIMENOrdering Facility: [facility] Address:[address] [place], [place] [address]Performed By: #### 74884-3 ####[facility] LABIA [id number] [place], [place] [address]Madmwfqi granulocytes (Bld) [#/Vol]0.07 10*3/uLNormal <0.10[facility] on above:Order Comment: Specimen Type: BLOOD SPECIMENOrdering Facility: [facility] Address:[address] [place], [place] [address]Performed By: #### 91951-3 ####[facility] LABCLIA [id number] [place], [place] [address]Zitwbrin granulocytes/100 WBC (Bld)0.8 %NormalSamaritan Hospital on above: Order Comment: Specimen Type: BLOOD SPECIMENOrdering Facility: [facility] Address:[address] [place], [place] [address]Performed By: #### 33465- 8 ####[facility] LABCLIA [id number] [place], [place] [address]Rgfhgkjmzed (Bld) [#/Vol]1.43 10*3/uLNormal1.00-4.00 [facility] on above:Order Comment: Specimen Type: BLOOD SPECIMENOrdering Facility: [facility] Address:[address] [place], [place] [address]Performed By: #### 02894-0 ####[facility] LABIA [id number] [place], [place] [address]Lnhwlgnygwf/100 WBC (Bld)16.7 %NormalSamaritan Hospital on above:Order Comment: Specimen Type: BLOOD SPECIMENOrdering Facility: [facility] Address:[address] [place], [place] [address]Performed By: #### 20093-6 ####[facility] LABCLIA [id number] [place], [place] [address]LXK (RBC) [Entitic mass]31.4 elXeeflj36.0-34.0[facility] on above:Order Comment: Specimen Type: BLOOD SPECIMENOrdering Facility: [facility] Address:[address] [place], [place] [address]Performed By: #### 47657-0 ####[facility] LABIA [id number] [place], [place] [address]AGOQ (RBC) [Mass/Vol]35.2 g/yPIxqsnd80.5-36.0[facility] on above: Order Comment: Specimen Type: BLOOD SPECIMENOrdering Facility: [facility] Address:[address] [place], [place] [address]Performed By: #### 07877- 8 ####[facility] LABCLIA [id number] [place], [place] [address]CQM (RBC) [Entitic vol]89.3 wXGjtnzd78.0-100.0[facility] on above:Order Comment: Specimen Type: BLOOD SPECIMENOrdering Facility: [facility] Address:[address] [place], [place] [address]Performed By: #### 23221-6 ####[facility] LABCLIA [id number] [place], [place] [address]Yjkgmpudt (Bld) [#/Vol]1.15 10*3/uLHigh<0.87[facility] on above:Order Comment: Specimen Type: BLOOD SPECIMENOrdering Facility: [facility] Address:[address] [place], [place] [address]Performed By: #### 94332- 8 ####[facility] LABCLIA [id number] [place], [place] [address]Jiiglkmvr/100 WBC (Bld)13.4 %NormalSamaritan Hospital on above:Order Comment: Specimen Type: BLOOD SPECIMENOrdering Facility: [facility] Address:[address] [place], [place] [address]Performed By: #### 79473-4 ####[facility] LABIA [id number] [place], [place] [address]Vscbijcuejs (Bld) [#/Vol]5.79 10*3/uLNormal1.45-7.50[facility] on above:Order Comment: Specimen Type: BLOOD SPECIMENOrdering Facility: [facility] Address:[address] [place], [place] [address]Performed By: #### 93951-2 ####[facility] LABCLIA [id number] [place], [place] [address]Pxwftidyozf/100 WBC (Bld)67.7 %NormalSamaritan Hospital on above:Order Comment: Specimen Type: BLOOD SPECIMENOrdering Facility: [facility] Address:[address] [place], [place] [address]Performed By: #### 18614-0 ####[facility] LABCLIA [id number] [place], [place] [address]Ijzdfxdsj RBC (Bld) [#/Vol] 10*3/uLNormal<0.01[facility] on above:Order Comment: Specimen Type: BLOOD SPECIMENOrdering Facility: [facility] Address:[address] [place], [place] [address]Performed By: #### 39597-9 ####[facility] LABCLIA [id number] [place], [place] [address]Ngobafwut RBC/100 WBC (Bld) [Ratio]0.0 /100 WBCNormal [facility] on above:Order Comment: Specimen Type: BLOOD SPECIMENOrdering Facility: [facility] Address:[address] [place], [place] [address]Performed By: #### 37809-2 ####[facility] LABCLIA [id number] [place], [place] [address]Elytyvso mean volume (Bld) [Entitic vol]8.6 fLLow9.0-12.7CKettering Memorial Hospital on above:Order Comment: Specimen Type: BLOOD SPECIMENOrdering Facility: [facility] Address:[address] [place], [place] [address]Performed By: #### 97482-0 ####[facility] LABCLIA [id number] [place], [place] [address]Rpgblrjca (Bld) [#/Vol]139 10*3/jEWww786-275SyhujbdlcSamaritan Hospital on above:Order Comment: Specimen Type: BLOOD SPECIMENOrdering Facility: [facility] Address:[address] [place] [address]Gskelytsw By: #### 34595-1 ####[facility] LABCLIA [id number] [place], [place] [address]MCD (Bld) [#/Vol]4.77 10*6/uLNormal4.20-6.00[facility] on above: Order Comment: Specimen Type: BLOOD SPECIMENOrdering Facility: [facility] Address:[address] [place], [place] [address]Performed By: #### 54529- 8 ####[facility] LABCLIA [id number] [place], [place] [address]VSA (Bld) [#/Vol]8.56 10*3/uLNormal3.70-11.00[facility] on above:Order Comment: Specimen Type: BLOOD SPECIMENOrdering Facility: [facility] Address:[address] [place], [place] [address]Performed By: #### 59908-7 ####[facility] LABIA [id number] [place], [place] [address]TSRYWMkk 71-96-1090YNAHPCIildfeCcilrwwhi [facility] ClevelandCNPNon 98-14-4885OQTRFdezaj [facility] Medical CenterComprehensive metabolic 2000 panelOrdered By: Kaushik Gonzalez on 43-00-8113Zysfgzb [Mass/Vol]4.5 g/dL3.9 - 4.9 g/dLSaint Croix Falls ClinicALP [Catalytic activity/Vol]131 U/LHigh38 - 113 U/LCleveland ClinicALT [Catalytic activity/Vol]19 U/L10 - 54 U/LCleveland ClinicAnion gap [Moles/Vol]12 mmol/L8 - 15 mmol/LCleveland ClinicAST [Catalytic activity/Vol]18 U/L14 - 40 U/LCleveland ClinicBilirubin [Mass/Vol]0.6 mg/dL0.2 - 1.3 mg/dLSaint Croix Falls ClinicCalcium [Mass/Vol]9.5 mg/dL8.5 - 10.2 mg/dLSaint Croix Falls ClinicChloride [Moles/Vol]102 mmol/L98 - 107 mmol/LCleveland ClinicCO2 [Moles/Vol]25 mmol/L22 - 30 mmol/L [facility] HospitalCreatinine [Mass/Vol]0.88 mg/dL0.73 - 1.22 mg/dLWood County Hospital GFR/1.73 sq M.predicted among non-blacks MDRD (S/P/Bld) [Vol rate/Area]85 mL/min/{1.73_m2}- PINFCmemorial hospitaland [facility]uyuna Regional Medical CenterComment on above:Estimated Glomerular Filtration Rate (eGFR) is calculated using the 2020 CKD-EPI creatinine equation. This equation utilizes serum creatinine, sex, and age as parameters. The creatinine assay has traceable calibration to isotope dilution-mass spectrometry. Refer to KDIGO guidelines for clinical interpretation. In patients with unstable renal function, e.g. those with acute kidney injury, the eGFRmay not accurately reflect actual GFR.Glucose [Mass/Vol]199 mg/qZIfas28 - 99 mg/dL [facility] County HospitalComment on above:The [place] Diabetes Association (ADA) provides guidance for cutoff values for fasting glucose andrandom glucose. The ADA defines fasting as no caloric intake for at least 8 hours. Fasting plasma gl ucose results between 100 to 125 mg/dL indicate [...] 2016.39(Suppl 1). Interpretation and review of laboratory resultsAbnormalCleveland ClinicPotassium [Moles/Vol]4.4 mmol/L3.7 - 5.1 mmol/LCleveland ClinicProtein [Mass/Vol]6.8 g/dL 6.3 - 8.0 g/dLSaint Croix Falls ClinicSodium [Moles/Vol]139 mmol/L136 - 144 mmol/L [facility] nitrogen [Mass/Vol]17 mg/dL9 - 24 mg/dLUniversity Hospitals Elyria Medical CenterComprehensive metabolic 2000 panelon 51-84-4224Rveduqp [Mass/Vol]4.5 g/dLNormal3.9-4.9CKettering Memorial Hospital on above:Order Comment: Specimen Type: BLOOD SPECIMENOrdering Facility: [facility] Address:[address] [place], [place] [address]Performed By: #### 29250- 8 ####[facility] LABCLIA [id number] [place], [place] [address]DCY [Catalytic activity/Vol]131 U/PZsfh84-006UndhorkpmSamaritan Hospital on above:Order Comment: Specimen Type: BLOOD SPECIMENOrdering Facility: [facility] Address:[address] [place], [place] [address]Performed By: #### 59083-1 ####[facility] LABCLIA [id number] [place], [place] [address]QFY [Catalytic activity/Vol]19 U/UMaxixr96-72CwtqjqowxSamaritan Hospital on above:Order Comment: Specimen Type: BLOOD SPECIMENOrdering Facility: [facility] Address:[address] [place], [place] [address]Performed By: #### 56646- 8 ####[facility] LABCLIA [id number] [place], [place] [address]Dgwtw gap [Moles/Vol]12 mmol/LNormal8-15[facility] on above:Order Comment: Specimen Type: BLOOD SPECIMENOrdering Facility: [facility] Address:[address] [place], [place] [address]Performed By: #### 40950-5 ####[facility] LABIA [id number] [place], [place] [address]CDC [Catalytic activity/Vol]18 U/OWbxqbn31-63UaomaorsgSamaritan Hospital on above:Order Comment: Specimen Type: BLOOD SPECIMENOrdering Facility: [facility] Address:[address] [place], [place] [address]Performed By: #### 80603-3 ####[facility] LABCLIA [id number] [facility] [place] [address] Bilirubin [Mass/Vol]0.6 mg/dLNormal0.2-1.3CKettering Memorial Hospital on above:Order Comment: Specimen Type: BLOOD SPECIMENOrdering Facility: [facility] Address:[address] [place], [place] [address]Performed By: #### 41160-9 ####[facility] LABCLIA [id number] ERICA THEODOREARTHURCHARL[place], [place] [address]Keydyba [Mass/Vol]9.5 mg/dLNormal8.5-10.2CKettering Memorial Hospital on above:Order Comment: Specimen Type: BLOOD SPECIMENOrdering Facility: [facility] Address:[address] [place], [place] [address]Performed By: #### 25373-0 ####[facility] LABCLIA [id number] [place]IO [place]TEH[place], [place] [address]Gftjcqun [Moles/Vol]102 mmol/BQqmrhs95-622PvdkoiidtSamaritan Hospital on above: Order Comment: Specimen Type: BLOOD SPECIMENOrdering Facility: [facility] Address:[address] [place], [place] [address]Performed By: #### 16174- 8 ####[facility] LABCLIA [id number] ERICARY THEODORE DUNCANPAGE HOSPITALFREDYC[place], [place] [address]QH5 [Moles/Vol]25 mmol/CBrhjoe14-22TtduekwmvSamaritan Hospital on above:Order Comment: Specimen Type: BLOOD SPECIMENOrdering Facility: [facility] Address:[address] [place], [place] [address]Performed By: #### 31083-9 ####[facility] LABCLIA [id number] ERICAST. ELIZABETH HEALTH SERVICESARTHURCHARLOTTESVILLE, [place] [address]Jdmuixvnlo [Mass/Vol]0.88 mg/dL Normal0.73-1.22[facility] on above:Order Comment: Specimen Type: BLOOD SPECIMENOrdering Facility: [facility] Address:[address] [place] [address]Rzwscbbgs By: #### 52338-6 ####[facility] LABCLIA [id number] [place], [place] [address]Oicsaeqotg and Glomerular filtration rate.predicted panel (S/P/Bld)85 mL/min/1.73m???Normal>=60[facility] on above:Order Comment: Specimen Type: BLOOD SPECIMENOrdering Facility: [facility] Address:[address] [place] [address]Zncymx Comment: Estimated Glomerular Filtration Rate (eGFR) is calculated using the 2020 CKD-EPI creatinine equation. This equation utilizes serum creatinine, sex, and age as parameters. The creatinine assay has traceable calibration to isotope dilution- mass spectrometry. Refer to KDIGO guidelines for clinical interpretation. In patients with unstable renal function, e.g. those with acute kidney injury, the eGFR may not accurately reflect actual GFR.Performed By: #### 77117-5 ####[facility] LABCLIA [id number] [place], [place] [address]Sommjgp [Mass/Vol]199 mg/tYCgvi51-70MwfkbhtvkSamaritan Hospital on above:Order Comment: Specimen Type: BLOOD SPECIMENOrdering Facility: [facility] Address:[address] [place] [address]Sxxgmw Comment: The [place] Diabetes Association (ADA) provides guidance for cutoff values for fasting glucose and random glucose. The ADA defines fasting as no caloric intake for at least 8 hours. Fasting plasma glucose results between 100 to 125 mg/dL indicate increased risk for diabetes (prediab etes).Fasting plasma glucose results greater than or equal to 126 mg/dL meet the criteria for diagnosis of diabetes. In the absence of unequivocal hyperglycemia, results should be confirmed by repeattesting. In a patient with classic symptoms of hyperglycemia or hyperglycemic crisis, random plasmaglucose results greater than or equal to 200 mg/dL meet the criteria for diagnosis of diabetes.Reference: Standards of Medical Care in Diabetes 2016, [place] Diabetes Association. Diabetes Care. 2016.39(Suppl 1).Performed By: #### 16898-6 ####[facility] LABCLIA [id number] [place], [place] [address]Jgmzzwkjq [Moles/Vol]4.4 mmol/LNormal3.7-5.1CKettering Memorial Hospital on above:Order Comment: Specimen Type: BLOOD SPECIMENOrdering Facility: [facility] Address:[address] [place], [place] [address]Performed By: #### 22797-7 ####[facility] LABCLIA [id number] [place], [place] [address]Elqdbuc [Mass/Vol]6.8 g/dLNormal6.3-8.0[facility] on above:Order Comment: Specimen Type: BLOOD SPECIMENOrdering Facility: [facility] Address:[address] [place], [place] [address]Performed By: #### 82920- 8 ####[facility] LABCLIA [id number] [place], [place] [address]Wvviki [Moles/Vol]139 mmol/PVnpknw674-990RntfssvuqSamaritan Hospital on above:Order Comment: Specimen Type: BLOOD SPECIMENOrdering Facility: [facility] Address:[address] [place], [place] [address]Performed By: #### 91693-2 ####[facility] LABCLIA [id number] [place], [place] [address]Mosh nitrogen [Mass/Vol]17 mg/dLNormal9-24[facility] on above:Order Comment: Specimen Type: BLOOD SPECIMENOrdering Facility: [facility] Address:[address] [place], [place] [address]Performed By: #### 57903-0 ####[facility] LABCLIA [id number] [place], [place] [address]SHJUJVR, BLOOD (POC)on 64-94-6148Qkepkro [Mass/Vol]148 mg/tRXziqihmz96 - 99 mg/dLWood County HospitalComment on above:Location:[facility], [address] [place] [address] Dr[place], [place], [address] The Accu-Chek Inform II glucose meter has [...] above situations. Interpretation and review of laboratory resultsAbnoCleveland Clinic [facility] PET/CT SKULL-THIGH INITon 79-17-3376HM PET/CT SKULL-THIGH INITNormal [facility]point Medical CenterPET+CT Guidance for localization of tumor of Skull base to mid-thigh-- W 18F-FDG Miranda 30-69-5183Qxcwyecrq Study observation (narrative)[facility] County HospitalCNCNPATEDon 70-78-3444BHSVDPXPAEqewydRrsibefnl Clinic ClevelandCNOVon 44-39-7641OCQTAztjzzFrxcnptfcACMC Healthcare System GlenbeighCNPNon 01-27-2025 CNPNNormalUniversity Hospitals Tripoint Medical CenterPATHOLOGY REQUEST FOR LAB CORPon 01-06-2025 PATHOLOGY REQUEST FOR LAB [facility] HospitalComment on above:See report. Scanned copy available in EMR.LEFT VOCAL CORD SPECIMENFIRGrand View Health Pathology Request for Lab Corpon 25-23-5877Yakhjyybq Request for Lab CorpNormal The [facility] Physician GroupComment on above:Order Comment: LEFT VOCAL CORD SPECIMENResult Comment: See report. Scanned copy available in EMR. PERFORMED BY: [address] [address] PATHOLOGIST KENNEL SUPERVISOR MAURICE MARTIN M.D.Performed By: #### PATH TO [facility] #### [place] [address] [facility] 12-LEADon 15-74-0530[address] [address] Electrocardiograph Report Signed Patient: CHAD MCKEON MR#: [id number] : 1940 Acct:[id number] Age/Sex: 84 / M ADM Date: 12/19/24 Loc: PST Attending Dr: Austin Jarquin M.D. Ordering Physician: Austin Jarquin M.D. 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 Measurements Intervals [place] Rate: 78 P: 37 NV: 170 QRS: 5 QRSD: 96 T: 29 [...] M.D. Dictated By: DARIAN LAZCANO Signed By: 12/19/24 190 DD/ 1318 TD/TT: Manager Recruiting:TBHRadiology, Radiologist, MD - 12/19/[address] [address] Electrocardiograph Report Signed Patient: CHAD MCKEON MR#: [id number] : 1940 Acct:[id number] Age/Sex: 84 / M ADM Date: 12/19/24 Loc: PST Attending Dr: Austin Jarquin M.D. Ordering Physician: Austin Jarquin M.D. 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 Measurements Intervals [place] Rate: 78 P: 37 NV: 170 QRS: 5 QRSD: 96 T: 29 [...] M.D. Dictated By: DARIAN LAZCANO Signed By: 12/19/24 190 DD/ 1318 TD/TT: Manager Recruiting: WILMA HealthcareRadiology Study observation (narrative)WILMA HealthcareECG 12-LEAD Ordered By: Radiologist Radiology on 57-92-1509[facility] Work Phone: XR CHEST 2Von 47-77-2897[place] [address] XRay Report Signed Patient: CHAD MCKEON MR#: [id number] : 1940 Acct:[id number] Age/Sex: 84 / M ADM Date: 12/19/24 Loc: PST Attending Dr: Austin Jarquin M.D. Ordering Physician: Austin Jarquin M.D. Date of Service: 12/19/24 Procedure(s): XR chest 2V Accession Number(s): [id number] cc: Fausto Juarez M.D.; Austin Jarquin M.D. [address] [address] Patient Name: CHAD MCKEON MRN: [id number] date: 1940 Sex: M Assigned Patient Location: SURGOUT Current Patient Location: SURGOUT Accession/Order Number: [id number] Exam Date: 12/19/2024 13:32 Report Date: 12/19/2024 13:32 At the request of: AUSTIN JARQUIN MD Procedure: XR chest 2V Chest 2 views CLINICAL HISTORY: Preop exam COMPARISON: None FINDINGS: Sternotomy wires are noted. Heart is normal in size. No consolidation pneumothorax pleural effusion or free air. XR/XR chest 2V IMPRESSION: NO ACUTE CARDIOPULMONARY ABNORMALITY. Impression dictated by: Gonzalo Navarrete Jr., D.O. 12/19/2024 1:32 PM Dictation Location: [place] [address] Electronically authenticated by: [id number] Y Date: 12/19/2024 13:32 Dictated By: Gonzalo Navarrete M.D. Signed By: 12/19/24 1335 DD/ 133 TD/TT: Manager Recruiting:DINESHHRadiology, Radiologist, - 12/19/2024 [place] [address] XRay Report Signed Patient: CHAD MCKEON MR#: [id number] : 1940 Acct:[id number] Age/Sex: 84 / M ADM Date: 12/19/24 Loc: PST Attending Dr: Austin Jarquin M.D. Ordering Physician: Austin Jarquin M.D. Date of Service: 12/19/24 Procedure(s): XR chest 2V Accession Number(s): [id number] cc: Fausto Juarez M.D.; Austin Jarquin M.D. The [address] [address] Patient Name: CHAD MCKEON MRN: [id number] date: 1940 Sex: M [facility] Patient Location[facility] Accession/Order Number: [id number] Exam Date: 12/19/2024 13:32 Report Date: 12/19/2024 13:32 At the request of: AUSTIN JARQUIN MD Procedure: XR chest 2V Chest 2 views CLINICAL HISTORY: Preop exam COMPARISON: None FINDINGS: Sternotomy wires are noted. Heart is normal in size. No consolidation pneumothorax pleural effusion or free air. XR/XR chest 2V IMPRESSION: NO ACUTE CARDIOPULMONARY ABNORMALITY. Impression dictated by: Gonzalo Navarrete Jr., D.O. 12/19/2024 1:32 PM Dictation Location: [place] [address] Electronically authenticated by: [id number] Y Date: 12/19/2024 13:32 Dictated By: Gonzalo Navarrete M.D. Signed By: 12/19/241334 DD/ 31 TD/TT: Manager Recruiting: WILMA HealthcareRadiology Study observation (narrative)[facility] HealthcareXR CHEST 2V Ordered By: Radiologist Radiology on 60-14-7449[facility] Work Phone: [phone] 93-03-274206Pvgbhosew echo result from 11/11/2024: MD Toshia Paniagua MA Echo was good. Follow up in 1 year. Patient informed.[facility] HospitalOffice [facility] 46-33-6418Ebnduv-up [id number] Chad Mckeon 1940 M Date Provider Department Center 10/31/2024 DARIAN MCDUFFIE EVELIN Ojeda Family History Problem Relation Age of Onset No Known Problems Mother Family Status - Relation Status Age at Mother Level of Service:[address] [place] OFFICE/OUTPATIENT ESTABLISHED [facility] HospitalOffice [facility] 15-62-9685Rfzeip-up visit [id number] Chad Mckeon 1940 M Date Provider Department Center 05/16/2024 KEENAN EUGENE EVELIN [place] Family History Problem Relation Age of Onset No Known Problems Mother Family Status - Relation Status Age at Mother Level of Service:01533 [place] OFFICE/OUTPATIENT ESTABLISHED [facility] HospitalCBC AUTO DIFFon 84-78-0558BMVU #0.1 103/ul Normal0.0-0.1The [facility] ColumbusComment on above:Performed By: #### CBC #### [facility] Laboratory [address] [place] [address] Dr. Андрей ToledoBasophils/100 WBC (Bld)0.8 %Normal0.2-2.0The [facility] Comment on above:Performed By: #### CBC #### [facility] [address] [place] [address] Dr. Андрей Jenkins #0.1 103/ulNormal0.0-0.7The [facility] ColumbusComment on above: Performed By: #### CBC #### [facility] [address] [place] [address] Dr. Андрей Engelosinophils/100 WBC (Bld)2.3 %Normal0.9-7.0[facility] Comment on above:Performed By: #### CBC #### [facility] [address] [place] [address] Dr. Андрей Engelrythrocyte distribution width (RBC) [Ratio]13.0 %Ixdphp71.0-15.0 [facility] CenterComment on above:Performed By: #### CBC #### [facility] [address] [place] [address] Dr. Андрей ToledoHematocrit (Bld) [Volume fraction]38.4 %Critically low42.0-54.0 [facility] CenterComment on above:Performed By: #### CBC #### [facility] [address] [place] [address] Dr. Андрей ToledoHemoglobin (Bld) [Mass/Vol]13.1 g/dLCritically low14.0-18.0The [facility] ColumbusComment on above:Performed By: #### CBC #### [facility] [address] [place] [address] Dr. Андрей Romano #0.11 10e3/ulCritically high0.00-0.03The [facility] Comment on above:Performed By: #### CBC #### [facility] [address] [place] [address] [address] Андрей Romano %1.8 %Critically high0.0-0.5The [facility] ColumbusComment on above:Performed By: #### CBC #### [facility] [address] [place] [address] Dr. Андрей Ernst #1.3 103/ulNormal1.2-3.8The [facility] ColumbusComment on above:Performed By: #### CBC #### [facility] [address] [place] [address] Dr. Андрей Ackermanhocytes/100 WBC (Bld)22.2 %Gbtzqq62.5-60.0The [facility] ColumbusComment on above:Performed By: #### CBC #### [facility] [address] [place] [address] Dr. Андрей AbreuUAL DIFF REQNONormalThe [facility] ColumbusComment on above: Performed By: #### CBC #### [facility] [address] [place] [address] Dr. Андрей Flores (RBC) [Entitic mass]32.2 ybJqueqi36.9-34.0The [facility] ColumbusComment on above:Performed By: #### CBC #### [facility] [address] [place] [address] Dr. Андрей Flores (RBC) [Mass/Vol]34.1 g/uVBevxot13.9-35.2The [facility] ColumbusComment on above:Performed By: #### CBC #### [facility] [address] [place] [address] Dr. Андрей Flores (RBC) [Entitic vol]94.3 fLCritically high80.0-94.0The [facility] ColumbusComment on above:Performed By: #### CBC #### [facility] [address] [place] [address] Dr. Андрей Cannon #0.9 103/ulCritically high0.3-0.8The [facility] Comment on above:Performed By: #### CBC #### [facility] [address] [place] [address] [address] Андрей Hannaocytes/100 WBC (Bld)15.5 %Critically high1.7-12.0The [facility] on above:Performed By: #### CBC #### [facility] [address] [place] [address] Dr. Андрей GoyalUT #3.4 103/ulNormal1.4-6.5The [facility] ColumbusComment on above:Performed By: #### CBC #### [facility] [address] [place] [address] Dr. Андрей Goyalutrophils/100 WBC (Bld)57.4 %Corvat85.0-75.0The [facility] ColumbusComment on above:Performed By: #### CBC #### [facility] [address] [place] [address] Dr. Андрей ToledoPlatelet mean volume (Bld) [Entitic vol]8.5 fLCritically low 9.5-13.5The [facility] ColumbusComment on above:Performed By: #### CBC #### [facility] [address] [place] [address] Dr. Андрей ToledoPLT149 103/ulCritically ngw303-352Nut [facility] ColumbusCommclaren [facility] on above:Performed By: #### CBC #### [facility] [address] [place] [address] Dr. Андрей ToledoRBC4.07 106/ulCritically low4.70-6.10The [facility] ColumbusCommclaren [facility] on above:Performed By: #### CBC #### [facility] [address] [place] [address] Dr. Андрей ToledoWBC6.0 103/ulNormal4.0-11.0The [facility] ColumbusCommclaren [facility] on above: Performed By: #### CBC #### [facility] [address] [place] [address] Dr. Андрей ToledoPROF 14(COMP METB)on 45-43-6449Lvcwnhv [Mass/Vol]2.9 g/dL Critically low3.4-5.0The [facility] HospitalComment on above:Performed By: #### CBC #### [facility] [address] [place] [address] [address] Андрей ToledoAlbumin/Globulin [Mass ratio]0.9 {ratio}NormalThe [facility] - ColumbusComment on above:Performed By: #### CBC #### [facility] [address] [place] [address] [address] Андрей CorriganP [Catalytic activity/Vol]93 U/ZWcjqqc43-201Jiy [facility] on above:Performed By: #### CBC #### [facility] [address] [address] [address] Андрей CorriganT [Catalytic activity/Vol]28 U/TLhzacb01-09Sdj [facility] on above:Performed By: #### CBC #### [facility] [address] [address] [address] Андрей Vasquezon gap [Moles/Vol]14.9 mmol/LNormalThe [facility] Comment on above:Performed By: #### CBC #### [facility] [address] [address] [address] Андрей ToledoAST [Catalytic activity/Vol]17 U/JOyciea54-63Txk [facility] on above:Performed By: #### CBC #### [facility] [address] [address] [address] Андрей ToledoBilirubin [Mass/Vol]0.3 mg/dLNormal0.2-1.0The [facility] Comment on above:Performed By: #### CBC #### [facility] [address] [place] [address] Dr. Андрей ToledoCalcium [Mass/Vol]8.4 mg/dLCritically low8.5-10.1[facility] on above:Performed By: #### CBC #### [facility] [address] [address] [address] Андрей ToledoChloride [Moles/Vol]106 mmol/VSthsfz17-400Ewz [facility] Comment on above:Performed By: #### CBC #### [facility] [address] [address] [address] Андрей ToledoCO2 [Moles/Vol]26.5 mmol/KOrvcbn42.0-32.0The [facility] Comment on above:Performed By: #### CBC #### [facility] [address] [address] [address] Андрей ToledoCreatinine [Mass/Vol]1.02 mg/dLNormal0.70-1.30The [facility] ColumbusComment on above:Performed By: #### CBC #### [facility] [address] [address] [address] Chiang ChangEGFR-AF FILIPINO>60Normal>=60The [facility] ColumbusComment on above:Performed By: #### CBC #### [facility] [address] [place] [address] Dr. Андрей EngelGFR-NON AF FILIPINO>60Normal>=60The [facility] ColumbusComment on above:Performed By: #### CBC #### [facility] [address] [address] [address] Андрей ToledoGlobulin (S) [Mass/Vol]3.1 g/dLNormalThe [facility] ColumbusComment on above:Performed By: #### CBC #### [facility] [address] [place] [address] Dr. Андрей ToledoGlucose [Mass/Vol]221 mg/dLCritically dkyx48-971Gai [facility] ColumbusComment on above:Performed By: #### CBC #### [facility] [address] [address] [address] Андрей ToledoPotassium [Moles/Vol]4.4 mmol/LNormal3.5-5.1The [facility] Comment on above:Performed By: #### CBC #### [facility] [address] [address] [address] Андрей ToledoProtein [Mass/Vol]6.0 g/dLCritically low6.4-8.2The [facility] on above:Performed By: #### CBC #### [facility] [address] [place] [address] Dr. Андрей Rodgersum [Moles/Vol]143 mmol/MSturug418-939Tcm [facility] Comment on above:Performed By: #### CBC #### [facility] [address] [place] [address] Dr. Андрей Nelson nitrogen [Mass/Vol]20.0 mg/dLCritically high7.0-18.0The [facility] ColumbusComment on above:Performed By: #### CBC #### [facility] [address] [place] [address] Dr. Андрей Nelson nitrogen/Creatinine [Mass ratio]19.6 mg/mgNormalThe [facility] ColumbusComment on above:Performed By: #### CBC #### [facility] [address] [place] [address] Dr. Андрей Hamilton HEPARIN MONITORon [id number] Coag (Bld) [Time]46.9 s Vivkla17.5-54.2The [facility] ColumbusComment on above:Performed By: #### PTT, PT #### [facility] [address] [place] [address] Dr. Андрей Rocha 87-07-1955Mxlvdywijqk peptide B (Bld) [Mass/Vol]192.0 pg/mL Normal<=1,800.0The [facility] ColumbusComment on above:Performed By: #### HSTROPN, BNP, CMP #### [facility] [address] [place] [address] Dr. Андрей QueenAC BEAU 3-6on [id number] [Catalytic activity/Vol]102 U/L Bjsasj78-337Ntj [facility] ColumbusComment on above:Performed By: #### PTT, PT #### [facility] [address] [place] [address] Dr. Андрей Richardson.MB [Mass/Vol]1.92 ng/mLNormal<=3.60The [facility] Comment on above:Performed By: #### PTT, PT #### [facility] [address] [place] [address] Dr. Андрей ShahidTROP16.0 pg/mLNormal4.0-76.1[facility] CenterCommclaren [facility] on above:Result Comment: CUT-OFF POINTS HAVE BEEN ESTABLISHED BASED ON THE FOURTH UNIVERSAL DEFINITIONS OF MYOCARDIAL INFARCTION. THE UPPER REFERENCE LIMIT (URL) OF TROPONIN, DEFINED THE 99TH PERCENTILE OF cTnI DISTRIBUTION IN A REFERENCE POPULATION, HAS BEEN CONFIRMED THE DECISION THRESHOLD FOR RI DIAGNOSIS.Performed By: #### PTT, PT #### [facility] [address] [place] [address] Dr. Андрей Richardson [Catalytic activity/Vol]66 U/UWbsqod25-339Tzj [facility] ColumbusComment on above:Performed By: #### CMREP #### [facility] [address] [place] [address] Dr. Андрей Richardson.MB [Mass/Vol]2.12 ng/mLNormal<=3.60[facility] Comment on above:Performed By: #### CMREP #### [facility] [address] [place] [address] Dr. Андрей ShahidTROP20.1 pg/mLNormal4.0-76.1The [facility] ColumbusComment on above:Result Comment: CUT-OFF POINTS HAVE BEEN ESTABLISHED BASED ON THE FOURTH UNIVERSAL DEFINITIONS OF MYOCARDIAL INFARCTION. THE UPPER REFERENCE LIMIT (URL) OF TROPONIN, DEFINED THE 99TH PERCENTILE OF cTnI DISTRIBUTION IN A REFERENCE POPULATION, HAS BEEN CONFIRMED THE DECISION THRESHOLD FOR RI DIAGNOSIS.Performed By: #### CMREP #### [facility] [address] [place] [address] Dr. Андрей Jean Baptiste AUTO DIFFon [id number] #0.1 103/ulNormal0.0-0.7The [facility] ColumbusComment on above:Performed By: #### CBC #### [facility] [address] [place] [address] Dr. Андрей Engelosinophils/100 WBC (Bld)1.9 %Normal0.9-7.0[facility] Comment on above:Performed By: #### CBC #### [facility] [address] [place] [address] Dr. Андрей Engelrythrocyte distribution width (RBC) [Ratio]13.1 %Hebioq09.0-15.0 The [facility] ColumbusComment on above:Performed By: #### CBC #### [facility] [address] [place] [address] Dr. Андрей ToledoHematocrit (Bld) [Volume fraction]38.8 %Critically low42.0-54.0 The [facility] ColumbusComment on above:Performed By: #### CBC #### [facility] [address] [place] [address] Dr. Андрей ToledoHemoglobin (Bld) [Mass/Vol]13.0 g/dLCritically low14.0-18.0The [facility] ColumbusComment on above:Performed By: #### CBC #### [facility] [address] [place] [address] Dr. Андрей Romano #0.05 10e3/ulCritically high0.00-0.03The [facility] Comment on above:Performed By: #### CBC #### [facility] [address] [place] [address] Dr. Андрей Romano %0.7 %Critically high0.0-0.5The [facility] ColumbusComment on above:Performed By: #### CBC #### [facility] [address] [place] [address] Dr. Андрей ToledoLymphocytes/100 WBC (Bld)23.2 %Ryksmr08.5-60.0The [facility] ColumbusComment on above:Performed By: #### CBC #### [facility] [address] [place] [address] Dr. Андрей Flores (RBC) [Entitic mass]31.9 ohEzmfjx64.9-34.0The [facility] ColumbusComment on above:Performed By: #### CBC #### [facility] [address] [place] [address] Dr. Андрей Flores (RBC) [Entitic vol]95.1 fLCritically high80.0-94.0The [facility] ColumbusComment on above:Performed By: #### CBC #### [facility] [address] [address] [address] Андрей Cannon #0.9 103/ulCritically high0.3-0.8The [facility] Comment on above:Performed By: #### CBC #### [facility] [address] [place] [address] Dr. Андрей Hannaocytes/100 WBC (Bld)13.6 %Critically high1.7-12.0The [facility] ColumbusComment on above:Performed By: #### CBC #### [facility] [address] [place] [address] Dr. Андрей Fischer #4.1 103/ulNormal1.4-6.5The [facility] ColumbusComment on above:Performed By: #### CBC #### [facility] [address] [place] [address] Dr. Андрей Goyalutrophils/100 WBC (Bld)60.0 %Qurhdd83.0-75.0The [facility] ColumbusComment on above:Performed By: #### CBC #### [facility] [address] [place] [address] Dr. Андрей Shafer mean volume (Bld) [Entitic vol]8.6 fLCritically low 9.5-13.5The [facility] ColumbusComment on above:Performed By: #### CBC #### [facility] [address] [place] [address] Dr. Андрей ToledoPLT153 103/shYzkxuu187-363Jbh [facility] ColumbusComment on above: Performed By: #### CBC #### [facility] [address] [place] [address] Dr. Андрей ToledoRBC4.08 106/ulCritically low4.70-6.10The [facility] ColumbusComment on above:Performed By: #### CBC #### [facility] [address] [place] [address] Dr. Аднрей Gutierrez #0.0 103/ulNormal0.0-0.1The [facility] ColumbusComment on above:Performed By: #### CBC #### [facility] [address] [address] [address] Андрей ToledoBasophils/100 WBC (Bld)0.6 %Normal0.2-2.0The [facility] Comment on above:Performed By: #### CBC #### [facility] [address] [place] [address] Dr. Андрей Jenkins #0.2 103/ulNormal0.0-0.7The [facility] ColumbusComment on above: Performed By: #### CBC #### [facility] [address] [place] [address] Dr. Андрйе Engelosinophils/100 WBC (Bld)2.6 %Normal0.9-7.0The [facility] Comment on above:Performed By: #### CBC #### [facility] [address] [place] [address] Dr. Андрей Engelrythrocyte distribution width (RBC) [Ratio]12.9 %Vzffxv71.0-15.0 The [facility] ColumbusComment on above:Performed By: #### CBC #### [facility] [address] [place] [address] Dr. Андрей ToledoHematocrit (Bld) [Volume fraction]37.9 %Critically low42.0-54.0 The [facility] ColumbusComment on above:Performed By: #### CBC #### [facility] [address] [place] [address] Dr. Андрей ToledoHemoglobin (Bld) [Mass/Vol]12.7 g/dLCritically low14.0-18.0The [facility] ColumbusComment on above:Performed By: #### CBC #### [facility] [address] [place] [address] Dr. Андрей Romano #0.03 10e3/ulNormal0.00-0.03The [facility] ColumbusComment on above:Performed By: #### CBC #### [facility] [address] [place] [address] Dr. Андрей Romano %0.4 %Normal0.0-0.5The [facility] ColumbusComment on above: Performed By: #### CBC #### [facility] [address] [address] [address] Андрей Ernst #1.6 103/ulNormal1.2-3.8The [facility] ColumbusComment on above:Performed By: #### CBC #### [facility] [address] [address] [address] Андрей Pradomphocytes/100 WBC (Bld)23.5 %Enlhgh20.5-60.0The [facility] ColumbusComment on above:Performed By: #### CBC #### [facility] [address] [address] [address] Андрей Jimenez DIFF REQNONormalThe [facility] ColumbusComment on above: Performed By: #### CBC #### [facility] [address] [place] [address] Dr. Андрей Flores (RBC) [Entitic mass]31.8 qaCesvyy25.9-34.0The [facility] ColumbusComment on above:Performed By: #### CBC #### [facility] [address] [address] [address] Андрей Flores (RBC) [Mass/Vol]33.5 g/qHVlwoyv98.9-35.2The [facility] ColumbusComment on above:Performed By: #### CBC #### [facility] [address] [place] [address] Dr. Андрей Flores (RBC) [Entitic vol]95.0 fLCritically high80.0-94.0The [facility] ColumbusComment on above:Performed By: #### CBC #### [facility] [address] [address] [address] Андрей Cannon #1.0 103/ulCritically high0.3-0.8The [facility] Comment on above:Performed By: #### CBC #### [facility] [address] [place] [address] Dr. Андрей Hannaocytes/100 WBC (Bld)14.8 %Critically high1.7-12.0The [facility] ColumbusComment on above:Performed By: #### CBC #### [facility] [address] [address] [address] Андрей GoyalUT #4.0 103/ulNormal1.4-6.5The [facility] ColumbusComment on above:Performed By: #### CBC #### [facility] [address] [place] [address] Dr. Андрей Goyalutrophils/100 WBC (Bld)58.1 %Kadvnc73.0-75.0The [facility] ColumbusComment on above:Performed By: #### CBC #### [facility] [address] [place] [address] Dr. Андрей ToledoPlatelet mean volume (Bld) [Entitic vol]8.3 fLCritically low 9.5-13.5The [facility] ColumbusComment on above:Performed By: #### CBC #### [facility] [address] [place] [address] Dr. Андрей ToledoPLT145 103/ulCritically fjl755-058Qgf [facility] ColumbusComment on above:Performed By: #### CBC #### [facility] [address] [place] [address] Dr. Андрей ToledoRBC3.99 106/ulCritically low4.70-6.10The [facility] ColumbusCommclaren [facility] on above:Performed By: #### CBC #### [facility] [address] [place] [address] Dr. Андрей ToledoWBC6.8 103/ulNormal4.0-11.0The [facility] ColumbusComment on above: Performed By: #### CBC #### [facility] [address] [place] [address] Dr. Андрей ToledoCovid-19 PCR (CVDTB)on 90-92-2731ZHKY-CoV-2 (COVID-19) RNA CLAUDIA+probe Ql (Unsp spec)Not detectedNormalNOT DETECTEDThe [facility] Comment on above:Result Comment: THIS TEST IS NOT APPROVED BY THE FDA. IT HAS BEEN AUTHORIZED FOR USE UNDER AN EMERGENCY USE AUTHORIZATION.Performed By: #### CVDTBH #### [facility] [address] [address] [address] Андрей ToledoLIPID PROFILEon [id number]-HDL RATIO NORMSHenry County HospitalComment on above:Result Comment: 3.3 - 4.4 LOW RISK 4.4 - 7.1 AVERAGE RISK 7.1 - 11.0 MODERATE RISK >11.0 HIGH RISKPerformed By: #### CBC #### [facility] [address] [address] [address] Андрей ToledoCholesterol [Mass/Vol]183 mg/dLNormal<=200[facility] Comment on above:Performed By: #### CBC #### [facility] [address] [address] [address] Андрей ToledoCholesterol in HDL [Mass/Vol]33 mg/dLCritically rgd51-89TmxFulton County Health CenterComment on above:Performed By: #### CBC #### [facility] [address] [address] [address] Андрей ToledoCholesterol in LDL [Mass/Vol]90.8 mg/dLDayton VA Medical CenterComment on above:Performed By: #### CBC #### [facility] [address] [place] [address] Dr. Андрей Whitmoreestermanuel.total/Cholesterol in HDL [Mass ratio]5.5 {ratio} NormalFulton County Health CenterComment on above:Performed By: #### CBC #### [facility] [address] [address] [address] Андрей Liu NORMAL> or = 60 mg/dl - LOW CARDIOVASCULAR RISK <40 mg/dl - HIGH CARDIOVASCULAR RISKDayton VA Medical CenterComment on above:Performed By: #### CBC #### [facility] [address] [place] [address] Dr. Андерй ToledoLDL CALC NORMALSEE [facility] Tri[facility] Medical CenterComment on above:Result Comment: <100 mg/dl OPTIMAL 100 - 129 mg/dl NEAR OR ABOVE OPTIMAL 130 - 159 mg/dl BORDERLINE HIGH 160 - 189 mg/dl HIGH >190 mg/dl VERY HIGH Performed By: #### CBC #### [facility] [address] [address] [address] Андрей ToledoTriglyceride [Mass/Vol]296 mg/dLCritically high<=150The [facility] on above:Performed By: #### CBC #### [facility] [address] [address] [address] Андрей ToledoVLDL CALC59.2 mg/dLNormalThe [facility] ColumbusCommclaren [facility] on above: Performed By: #### CBC #### [facility] [address] [address] [address] Андрей ToledoPOINT OF CARE GLUCOSEon 25-69-3612Dsejvap [Mass/Vol]160 mg/dL Critically ytrb37-511Rpm [facility] ColumbusCommclaren [facility] on above:Performed By: #### CBC #### [facility] [address] [place] [address] Dr. Андрей ToledoPROF 14(COMP METB)on 63-57-7474Ldhdxni [Mass/Vol]3.0 g/dL Critically low3.4-5.0The [facility] Hospitalment on above:Performed By: #### HSTROPN, BNP, CMP #### [facility] [address] [place] [address] Dr. Андрей ToledoAlbumin/Globulin [Mass ratio]0.9 {ratio}NormalThe [facility] ColumbusCommclaren [facility] on above:Performed By: #### HSTROPN, BNP, CMP #### [facility] [address] [address] [address] Андрей CorriganP [Catalytic activity/Vol]95 U/DRkfkma58-282Lks [facility] on above:Performed By: #### HSTROPN, BNP, CMP #### [facility] [address] [place] [address] Dr. Андрей Jimenez [Catalytic activity/Vol]24 U/OMfmwmu66-47Hpp [facility] on above:Performed By: #### HSTROPN, BNP, CMP #### [facility] [address] [place] [address] Dr. Андрей Hicks gap [Moles/Vol]12.8 mmol/LNormalFulton County Health Center Comment on above:Performed By: #### HSTROPN, BNP, CMP #### [facility] [address] [address] [address] Андрей ToledoAST [Catalytic activity/Vol]12 U/LCritically pon93-66Hcr [facility] ColumbusComment on above:Performed By: #### HSTROPN, BNP, CMP #### [facility] [address] [address] [address] Андрей ToledoBilirubin [Mass/Vol]0.5 mg/dLNormal0.2-1.0The [facility] Comment on above:Performed By: #### HSTROPN, BNP, CMP #### [facility] [address] [place] [address] Dr. Андрей ToledoCalcium [Mass/Vol]8.8 mg/dLNormal8.5-10.1The [facility] Comment on above:Performed By: #### HSTROPN, BNP, CMP #### [facility] [address] [place] [address] Dr. Андрей ToledoChloride [Moles/Vol]108 mmol/LCritically sdpq08-100Anu [facility] ColumbusComment on above:Performed By: #### HSTROPN, BNP, CMP #### [facility] [address] [address] [address] Андрей ToledoCO2 [Moles/Vol]29.2 mmol/TTktgfy88.0-32.0The [facility] Comment on above:Performed By: #### HSTROPN, BNP, CMP #### [facility] [address] [place] [address] Dr. Андрей ToledoCreatinine [Mass/Vol]1.06 mg/dLNormal0.70-1.30The [facility] ColumbusComment on above:Performed By: #### HSTROPN, BNP, CMP #### [facility] [address] [address] [address] Chiang ChangEGFR-AF FILIPINO>60Normal>=60The [facility] ColumbusComment on above:Performed By: #### HSTROPN, BNP, CMP #### [facility] [address] [place] [address] Dr. Андрей Vela-NON AF FILIPINO>60Normal>=60The [facility] ColumbusComment on above:Performed By: #### HSTROPN, BNP, CMP #### [facility] [address] [place] [address] Dr. Андрей ToledoGlobulin (S) [Mass/Vol]3.3 g/dLNormalThe [facility] ColumbusComment on above:Performed By: #### HSTROPN, BNP, CMP #### [facility] [address] [place] [address] Dr. Андрей ToledoGlucose [Mass/Vol]155 mg/dLCritically cdql37-563Qqx [facility] ColumbusComment on above:Performed By: #### HSTROPN, BNP, CMP #### [facility] [address] [place] [address] Dr. Андрей ToledoPotassium [Moles/Vol]5.0 mmol/LNormal3.5-5.1The [facility] Comment on above:Performed By: #### HSTROPN, BNP, CMP #### [facility] [address] [place] [address] Dr. Андрей ToledoProtein [Mass/Vol]6.3 g/dLCritically low6.4-8.2The [facility] ColumbusComment on above:Performed By: #### HSTROPN, BNP, CMP #### [facility] [address] [place] [address] Dr. Андрей ToledoSodium [Moles/Vol]145 mmol/UTzofwd351-722Eqn [facility] Comment on above:Performed By: #### HSTROPN, BNP, CMP #### [facility] [facility] [address] [place] [address] Dr. Андрей ToledoUrea nitrogen [Mass/Vol]25.0 mg/dLCritically high7.0-18.0The [facility] ColumbusComment on above:Performed By: #### HSTROPN, BNP, CMP #### [facility] [address] [place] [address] Dr. Андрей Nelson nitrogen/Creatinine [Mass ratio]23.6 mg/mgNoOhioHealthComment on above:Performed By: #### HSTROPN, BNP, CMP #### [facility] [address] [place] [address] Dr. Андрей ToledoPROTIMEon [id number] Coag (PPP) [Relative time]0.94 {INR} NormalThe [facility] ColumbusComment on above:Performed By: #### PTT, PT #### [facility] [address] [place] [address] Dr. Андрей Roberson GUIDELINESSEE BELOWDayton VA Medical CenterComment on above:Result Comment: DESIRED INR: 2.0 - 3.0 CONDITIONS NOT LISTED BELOW 2.5 - 3.5 FOR PROSTHETIC HEART VALVE REPLACEMENT 2.5 - 3.5 RECURRENT THROMBOSIS Performed By: #### PTT, PT #### [facility] [address] [place] [address] Dr. Андрей ToledoPT Coag (PPP) [Time]10.0 sNormal9.0-11.6The [facility] Comment on above:Performed By: #### PTT, PT #### [facility] [address] [place] [address] Dr. Андрей ThorpeTon [id number] Coag (Bld) [Time]27.5 zKycvms06.3-36.2The [facility] on above:Performed By: #### PTT, PT #### [facility] [address] [place] [address] Dr. Андрей BoucherTOMATIC COVID-19 ANTIGENon [id number] StatementSEE BELOW NormalOhioHealth [facility] on above:Result Comment: This test has not been FDA [...] declaration is terminated or authorization is revoked sooner.Performed By: #### PTT, PT #### [facility] [address] [place] [address] Dr. Андрей Mata-CoV-2 (COVID-19) RNA CLAUDIA+probe Ql (Unsp spec)NegativeNormal NEGATIVEThe [facility] ColumbusComment on above:Performed By: #### PTT, PT #### [facility] [address] [place] [address] Dr. Андрей ToledoT4on [id number] [Mass/Vol]6.20 ug/dLNormal4.50-12.10The [facility] ColumbusComment on above:Performed By: #### PTT, PT #### [facility] [address] [place] [address] Dr. Андрей Ramirez, HIGH SENSITIVITYon [id number] pg/mLNormal 4.0-76.1The [facility] on above:Result Comment: CUT-OFF POINTS HAVE BEEN ESTABLISHED BASED ON THE FOURTH UNIVERSAL DEFINITIONS OF MYOCARDIAL INFARCTION. THE UPPER REFERENCE LIMIT (URL) OF TROPONIN, DEFINED THE 99TH PERCENTILE OF cTnI DISTRIBUTION IN A REFERENCE POPULATION, HAS BEEN CONFIRMED THE DECISION THRESHOLD FOR RI DIAGNOSIS.Performed By: #### HSTROPN, BNP, CMP #### [facility] [address] [place] [address] Dr. Андрей ArrietaHolili [id number] uIU/mLNormal0.358-3.740The [facility] Hospitalment on above:Performed By: #### CBC #### [facility] [address] [place] [address] Dr. Андрей ToledoXR CHEST 1 Von [id number] CHEST 1 VEXAMINATION: XR CHEST 1 V, 01/08/2023 10:39 AM EDT HISTORY: CHEST PAIN, UNSPECIFIED COMPARISON: None. TECHNIQUE: AP portable view of the chest performed. FINDINGS: Medical devices: None. Cardiomediastinal silhouette is likely enlarged, noting accentuation by AP technique. The lungs are clear. No large pleural effusion, or pneumothorax. IMPRESSION: 1. No acute cardiopulmonary abnormality. Electronically authenticated by: TIFFANY TORO Date: 2023-01-08 11:22NormWVUMedicine Harrison Community HospitalT4 LABCORPon [id number] [Mass/Vol]7.5 ug/dLNormal4.5-12.0The [facility] ColumbusComment on above:Performed By: #### T4LC #### [facility] [address] [place] [address] Dr. Андрей Rocha [id number] peptide B (Bld) [Mass/Vol]26.0 pg/mL Normal<=1,800.0The [facility] ColumbusComment on above:Performed By: #### PTT, PT #### [facility] [address] [place] [address] Dr. Андрей Jean Baptiste AUTO DIFFon [id number] #0.1 103/ulNormal0.0-0.1The [facility] ColumbusComment on above:Performed By: #### PTT, PT #### [facility] [address] [place] [address] Dr. Андрей ToledoBasophils/100 WBC (Bld)0.6 %Normal0.2-2.0The [facility] Comment on above:Performed By: #### PTT, PT #### [facility] [address] [place] [address] Dr. Андрей Jenkins #0.2 103/ulNormal0.0-0.7The [facility] ColumbusComment on above: Performed By: #### PTT, PT #### [facility] [address] [place] [address] Dr. Андрей Engelosinophils/100 WBC (Bld)1.9 %Normal0.9-7.0The [facility] Comment on above:Performed By: #### PTT, PT #### [facility] [address] [place] [address] Dr. Андрей Engelrythrocyte distribution width (RBC) [Ratio]13.2 %Uxzvsv82.0-15.0 The [facility] ColumbusComment on above:Performed By: #### PTT, PT #### [facility] [address] [place] [address] Dr. Андрей ToledoHematocrit (Bld) [Volume fraction]42.7 %Kywcwx84.0-54.0The [facility] ColumbusComment on above:Performed By: #### PTT, PT #### [facility] [address] [place] [address] Dr. Андрей ToledoHemoglobin (Bld) [Mass/Vol]14.2 g/eLIttgwb66.0-18.0The [facility] ColumbusComment on above:Performed By: #### PTT, PT #### [facility] [address] [place] [address] Dr. Андрей Romano #0.11 10e3/ulCritically high0.00-0.03The [facility] Comment on above:Performed By: #### PTT, PT #### [facility] [address] [place] [address] Dr. Андрей ToledoIG %1.4 %Critically high0.0-0.5The [facility] ColumbusComment on above:Performed By: #### PTT, PT #### [facility] [address] [place] [address] Dr. Андрей AckermanH #1.6 103/ulNormal1.2-3.8The [facility] ColumbusComment on above:Performed By: #### PTT, PT #### [facility] [address] [place] [address] Dr. Андрей Pradomphocytes/100 WBC (Bld)20.0 %Critically low20.5-60.0The [facility] ColumbusComment on above:Performed By: #### PTT, PT #### [facility] [address] [place] [address] Dr. Андрей Jimenez DIFF REQNONormalThe [facility] ColumbusComment on above: Performed By: #### PTT, PT #### [facility] [address] [place] [address] Dr. Андрей Flores (RBC) [Entitic mass]30.5 zyKnfdwq09.9-34.0The [facility] HospitalComment on above:Performed By: #### PTT, PT #### [facility] [address] [place] [address] Dr. Андрей Flores (RBC) [Mass/Vol]33.3 g/fDCffiid39.9-35.2The [facility] ColumbusComment on above:Performed By: #### PTT, PT #### [facility] [address] [place] [address] Dr. Андрей Flores (RBC) [Entitic vol]91.8 eIVmbqps89.0-94.0The [facility] ColumbusComment on above:Performed By: #### PTT, PT #### [facility] [address] [place] [address] Dr. Андрей Cannon #1.0 103/ulCritically high0.3-0.8The [facility] Comment on above:Performed By: #### PTT, PT #### [facility] [address] [place] [address] Dr. Андрей Hannaocytes/100 WBC (Bld)13.4 %Critically high1.7-12.0The [facility] ColumbusComment on above:Performed By: #### PTT, PT #### [facility] [address] [place] [address] Dr. Андрей Fischer #4.9 103/ulNormal1.4-6.5The [facility] ColumbusComment on above:Performed By: #### PTT, PT #### [facility] [address] [place] [address] Dr. Андрей Goyalutrophils/100 WBC (Bld)62.7 %Lnmdgd40.0-75.0The [facility] ColumbusComment on above:Performed By: #### PTT, PT #### [facility] [address] [place] [address] Dr. Андрей Shafer mean volume (Bld) [Entitic vol]8.8 fLCritically low 9.5-13.5The [facility] on above:Performed By: #### PTT, PT #### [facility] [address] [place] [address] Dr. Андрей ToledoPLT235 103/ldCrdgdo116-110Cys [facility] Hospitalment on above: Performed By: #### PTT, PT #### [facility] [address] [place] [address] Dr. Андрей ToledoRBC4.65 106/ulCritically low4.70-6.10The [facility] ColumbusComment on above:Performed By: #### PTT, PT #### [facility] [address] [place] [address] Dr. Андрей ToledoWBC7.8 103/ulNormal4.0-11.0The [facility] on above: Performed By: #### PTT, PT #### [facility] [address] [place] [address] Dr. Андрей Taveras THYROXINE INDEX T7on [id number]The [facility] ColumbusCommclaren greater [facility] on above:Performed By: #### PTT, PT #### [facility] [address] [place] [address] Dr. Андрей ToledoT3U36.0 %Caiepl82.0-40.0The [facility] on above: Performed By: #### PTT, PT #### [facility] [address] [place] [address] Dr. Андрей ToledoT4 [Mass/Vol]7.50 ug/dLNormal4.50-12.10ThUniversity [facility]als [facility] Comment on above:Result Comment: T4 testing performed by LabCorpPerformed By: #### PTT, PT #### [facility] [address] [place] [address] Dr. Андрей Sykes 14(COMP METB)on [id number] [Mass/Vol]3.2 g/dL Critically low3.4-5.0The [facility] ColumbusComment on above:Performed By: #### PTT, PT #### [facility] [address] [address] [address] Андрей ToledoAlbumin/Globulin [Mass ratio]0.8 {ratio}NormalThe [facility] ColumbusComment on above:Performed By: #### PTT, PT #### [facility] [address] [address] [address] Андрей CorriganP [Catalytic activity/Vol]105 U/TCqebra17-185Xbv [facility] ColumbusComment on above:Performed By: #### PTT, PT #### [facility] [address] [place] [address] Dr. Андрей CorriganT [Catalytic activity/Vol]26 U/MNdttmj15-82Vsg [facility] ColumbusComment on above:Performed By: #### PTT, PT #### [facility] [address] [place] [address] Dr. Андрей Hicks gap [Moles/Vol]12.1 mmol/LNormalThe [facility] Comment on above:Performed By: #### PTT, PT #### [facility] [address] [place] [address] Dr. Андрей ToledoAST [Catalytic activity/Vol]15 U/TYmsrwp23-03Fzd [facility] ColumbusComment on above:Performed By: #### PTT, PT #### [facility] [address] [place] [address] Dr. Андрей ToledoBilirubin [Mass/Vol]0.4 mg/dLNormal0.2-1.0The [facility] Comment on above:Performed By: #### PTT, PT #### [facility] [address] [address] [address] Андрей ToledoCalcium [Mass/Vol]8.9 mg/dLNormal8.5-10.1[facility] Comment on above:Performed By: #### PTT, PT #### [facility] [address] [address] [address] Андрей ToledoChloride [Moles/Vol]103 mmol/UTvxafj46-887Fvt [facility] Comment on above:Performed By: #### PTT, PT #### [facility] [address] [address] [address] Андрей ToledoCO2 [Moles/Vol]27.8 mmol/PIpydiz56.0-32.0The [facility] Comment on above:Performed By: #### PTT, PT #### [facility] [address] [address] [address] Андрей ToledoCreatinine [Mass/Vol]1.09 mg/dLNormal0.70-1.30The [facility] ColumbusComment on above:Performed By: #### PTT, PT #### [facility] [address] [address] [address] Chiang ChangEGFR-AF FILIPINO>60Normal>=60The [facility] ColumbusComment on above:Performed By: #### PTT, PT #### [facility] [address] [address] [address] Андрей EngelGFR-NON AF FILIPINO>60Normal>=60The [facility] ColumbusComment on above:Performed By: #### PTT, PT #### [facility] [address] [address] [address] Андрей ToledoGlobulin (S) [Mass/Vol]3.8 g/dLNormalThe [facility] ColumbusComment on above:Performed By: #### PTT, PT #### [facility] [address] [place] [address] Dr. Андрей ToledoGlucose [Mass/Vol]206 mg/dLCritically zfhn45-598Zdr [facility] ColumbusComment on above:Performed By: #### PTT, PT #### [facility] [address] [place] [address] Dr. Андрей ToledoPotassium [Moles/Vol]4.9 mmol/LNormal3.5-5.1The [facility] Comment on above:Performed By: #### PTT, PT #### [facility] [address] [address] [address] Андрей ToledoProtein [Mass/Vol]7.0 g/dLNormal6.4-8.2The [facility] Comment on above:Performed By: #### PTT, PT #### [facility] [address] [place] [address] Dr. Андрей ToledoSodium [Moles/Vol]138 mmol/TPcormy608-368Elx [facility] Comment on above:Performed By: #### PTT, PT #### [facility] [address] [place] [address] Dr. Андрей ToledoUrea nitrogen [Mass/Vol]25.0 mg/dLCritically high7.0-18.0[facility] CenterComment on above:Performed By: #### PTT, PT #### [facility] [address] [place] [address] Dr. Андрей Nelson nitrogen/Creatinine [Mass ratio]22.9 mg/mgNoalThe [facility] ColumbusComment on above:Performed By: #### PTT, PT #### [facility] [address] [place] [address] Dr. Андрей Bonilla 14-40-9374OOY2.928 uIU/mLNormal0.358-3.740The [facility] ColumbusComment on above:Performed By: #### PTT, PT #### [facility] [address] [place] [address] Dr. Андрей Flores [facility] [place] BELOWDayton VA Medical CenterComment on above: Result Comment: <0.34 UIU/ml HYPERTHYROID 0.34-5.60 UIU/ml EUTHYROID >5.60 UIU/ml HYPOTHYROIDPerformed By: #### PTT, PT #### [facility] [address] [place] [address] Dr. Андрей Toledo Vital Signs Date TimeVital SignValuePerforming LnogizfsyMytotiuy50-28-6844 14:Body rsyasb011.3 cmAustin Jarquin MD Work Phone: [facility] HospitalMxxvhxtngg88[facility]-3800 14:23-0400Body mass index (BMI) [Ratio]26.5 kg/v8UimgdtAustin Jarquin MD Work Phone: [phone] [place] [address]-28-2025 14:23-0400Body .18 kgAustin Jarquin MD Work Phone: [phone] [place] [address]-28-2025 14:23-0400Diastolic blood mm[Hg]Austin Jarquin MD Work Phone: 1(493)[address] [place] [address]-28-2025 14:23-0400Heart rate70 /min Austin Jarquin MD Work Phone: [phone])[address] [place], [place] 4304610-28-2025 14:23-0400Systolic blood mm[Hg]Austin Jarquin MD Work Phone: 1(459)[address] [place], [place] 4304609-24-2025 14:17-0400Body trugvk741.3 cmAustin Jarquin MD Work Phone: 1(576)[address] [place], [place] 4304609-24-2025 14:17-0400Body mass index (BMI) [Ratio]26.5 kg/i6IgezneAustin Jarquin MD Work Phone: 1(969)[address] [place] [address]-24-2025 14:17-0400Body slobdo51.18 kgAustin Jarquin MD Work Phone: 1(364)[address] [place] [address]-24-2025 14:17-0400Diastolic blood golwenps30 mm[Hg]Austin Jarquin MD Work Phone: 1(069)[address] [place] [address]-24-2025 14:17-0400Heart rate79 /min Austin Jarquin MD Work Phone: 1(546)[address] [place] [address]-24-2025 14:17-0400Systolic blood mm[Hg]Austin Jarquin MD Work Phone: [phone])[address] [place] [address]-17-2025 09:25-0400Body mass index (BMI) [Ratio]29 kg/m2MARTITA Grant MD Work Phone: [facility]09-17-2025 09:25-0400Body temperature 97.39 [degF]MARTITA Grant MD Work Phone: [facility]09-17-2025 09:25-0400Body scjcyi39.8 kgMARTITA Grant MD Work Phone: [facility]09-17-2025 09:25-0400Diastolic blood orvovwwh78 mm[Hg]MARTITA Grant MD Work Phone: [facility]09-17-2025 09:25-0400Heart rate99 /min MARTITA Grant MD Work Phone: [place] [address]-17-2025 09:25-0400Respiratory rate 16 /MaksimMARTITA Grant MD Work Phone: [facility]09-17-2025 09:25-8523DdI8% (BldA) [Mass fraction]99 %MARTITA Grant MD Work Phone: [facility]09-17-2025 09:25-0400Systolic blood mm[Hg]MARTITA Grant MD Work Phone: [facility]09-08-2025 09:42-0400Body htwpsi361 cm Chandan Burgos MD Work Phone: [facility]09-08-2025 09:42-0400Body mass index (BMI) [Ratio]29.14 kg/w7CaacpChandan Burgos MD Work Phone: [facility]09-08-2025 09:42-0400Body temperature 97.81 [degF]Chandan Burgos MD Work Phone: [facility]09-08-2025 09:42-0400Body nywcqu22.2 kgChandan Burgos MD Work Phone: [facility]09-08-2025 09:42-0400Diastolic blood chequpij11 mm[Hg]Chandan Burgos MD Work Phone: [facility]09-08-2025 09:42-0400Heart rate72 /min Chandan Burgos MD Work Phone: [facility]09-08-2025 09:42-0400Respiratory rate 16 /minChandan Burgos MD Work Phone: [facility]09-08-2025 09:42-1712UqY7% (BldA) [Mass fraction]98 %Chandan Burgos MD Work Phone: [facility]09-08-2025 09:42-0400Systolic blood qzucvxjd125 mm[Hg]Chandan Burgos MD Work Phone: [facility]09-03-2025 10:56-0400Body lunbmp065 cm Merline Fregoso EPIC AMBULATORY ANALYST.CONTROL PANEL ASSEMBLER Work Phone: [facility]09-03-2025 10:56-0400Body mass index (BMI) [Ratio]29.4 kg/g7XuwuwpMerline Fregoso EPIC AMBULATORY ANALYST.CONTROL PANEL ASSEMBLER Work Phone: [facility]09-03-2025 10:56-0400Body temperature 97.9 [degF]Merline Fregoso EPIC AMBULATORY ANALYST.CONTROL PANEL ASSEMBLER Work Phone: [facility]09-03-2025 10:56-0400Body jwjems56 kg Merline Fregoso EPIC AMBULATORY ANALYST.CONTROL PANEL ASSEMBLER Work Phone: [facility]09-03-2025 10:56-0400Diastolic blood ezazcfki51 mm[Hg]Merline Fregoso EPIC AMBULATORY ANALYST.CONTROL PANEL ASSEMBLER Work Phone: [facility]09-03-2025 10:56-0400Heart rate81 /min Merline Fregoso EPIC AMBULATORY ANALYST.CONTROL PANEL ASSEMBLER Work Phone: [facility]09-03-2025 10:56-0400Respiratory rate 18 /minMerline Fregoso EPIC AMBULATORY ANALYST.CONTROL PANEL ASSEMBLER Work Phone: [facility]09-03-2025 10:56-9554FzF2% (BldA) [Mass fraction]97 %Merline Fregoso APRN.CONTROL PANEL ASSEMBLER Work Phone: [facility]09-03-2025 10:56-0400Systolic blood exqtkkqz635 mm[Hg]Merline Fregoso APRN.CONTROL PANEL ASSEMBLER Work Phone: [facility]09-02-2025 14:28-0400Body mass index (BMI) [Ratio]29.3 kg/m2MARTITA Grant MD Work Phone: [facility]09-02-2025 14:28-0400Body temperature 97.59 [degF]MARTITA Grant MD Work Phone: [facility]09-02-2025 14:28-0400Body ooefcm04.7 kgMARTITA Grant MD Work Phone: [facility]09-02-2025 14:28-0400Diastolic blood oaykrodj42 mm[Hg]MARTITA Grant MD Work Phone: [facility]09-02-2025 14:28-0400Heart msko520 /MaksimMARTITA Grant MD Work Phone: [facility]09-02-2025 14:28-0400Respiratory rate 16 /MaksimMARTITA Grant MD Work Phone: [facility]09-02-2025 14:28-8574JbJ1% (BldA) [Mass fraction]98 %MARTITA Grant MD Work Phone: [facility]09-02-2025 14:28-0400Systolic blood mm[Hg]MARTITA Grant MD Work Phone: [facility]08-27-2025 09:53-0400Body smxuiq236 cm Merline Fregoso APRN.CONTROL PANEL ASSEMBLER Work Phone: [facility]08-27-2025 09:53-0400Body mass index (BMI) [Ratio]29.24 kg/l6FmuqbvMerline Fregoso APRN.CONTROL PANEL ASSEMBLER Work Phone: [facility]08-27-2025 09:53-0400Body temperature 97.59 [degF]Merline Ildefonso EPIC AMBULATORY ANALYST.CONTROL PANEL ASSEMBLER Work Phone: [facility]08-27-2025 09:53-0400Body zoranm16.5 kgKashimee Ildefonso EPIC AMBULATORY ANALYST.CONTROL PANEL ASSEMBLER Work Phone: [facility]08-27-2025 09:53-0400Diastolic blood qbfffusg46 mm[Hg]Merline Ildefonso EPIC AMBULATORY ANALYST.CONTROL PANEL ASSEMBLER Work Phone: [facility]08-27-2025 09:53-0400Heart xjzx016 /minJaimee Ildefonso EPIC AMBULATORY ANALYST.CONTROL PANEL ASSEMBLER Work Phone: [address] [place] [address]-27-2025 09:53-0400Respiratory rate 16 /minJaimee Ildefonso EPIC AMBULATORY ANALYST.CONTROL PANEL ASSEMBLER Work Phone: [facility]08-27-2025 09:53-6124VdC4% (BldA) [Mass fraction]98 %Merline Ildefonso EPIC AMBULATORY ANALYST.CONTROL PANEL ASSEMBLER Work Phone: [facility]08-27-2025 09:53-0400Systolic blood kvjicqrj996 mm[Hg]Merline Ildefonso EPIC AMBULATORY ANALYST.CONTROL PANEL ASSEMBLER Work Phone: [facility]08-25-2025 13:18-0400Body mass index (BMI) [Ratio]29.3 kg/m2MARTITA Grant MD Work Phone: [facility]08-25-2025 13:18-0400Body temperature 97.59 [degF]MARTITA Grant MD Work Phone: [address] [place] [address]-25-2025 13:18-0400Body .7 kgMARTITA Grant MD Work Phone: [address] [address]-25-2025 13:18-0400Diastolic blood ueqlsrdv61 mm[Hg]MARTITA Grant MD Work Phone: [address] [place] [address]-25-2025 13:18-0400Heart rate89 /min MARTITA Grant MD Work Phone: [facility]08-25-2025 13:18-0400Respiratory rate 16 /MaksimMARTITA Grant MD Work Phone: [address] [place] [address]-25-2025 13:18-6883JoI9% (BldA) [Mass fraction]98 %MARTITA Grant MD Work Phone: [address] [place] [address]-25-2025 13:18-0400Systolic blood mm[Hg]NA Tasia ELAINE Work Phone: [facility]08-20-2025 10:23-0400Body ykpblc538 cm Merline Ildefonso EPIC AMBULATORY ANALYST.CONTROL PANEL ASSEMBLER Work Phone: [facility]08-20-2025 10:23-0400Body mass index (BMI) [Ratio]29.5 kg/b0Ghrajz Ildefonso EPIC AMBULATORY ANALYST.CONTROL PANEL ASSEMBLER Work Phone: [facility]08-20-2025 10:23-0400Body temperature 97.3 [degF]Merline Ildefonso EPIC AMBULATORY ANALYST.CONTROL PANEL ASSEMBLER Work Phone: [facility]08-20-2025 10:23-0400Body sdoswg33.3 kgMerline Ildefonso EPIC AMBULATORY ANALYST.CONTROL PANEL ASSEMBLER Work Phone: [facility]08-20-2025 10:23-0400Diastolic blood fmdzodtx79 mm[Hg]Merline Ildefonso EPIC AMBULATORY ANALYST.CONTROL PANEL ASSEMBLER Work Phone: [facility]08-20-2025 10:23-0400Heart rate65 /min Merline Ildefonso EPIC AMBULATORY ANALYST.CONTROL PANEL ASSEMBLER Work Phone: [place] [address]-20-2025 10:23-0400Respiratory rate 18 /minMikaelae Ildefonso EPIC AMBULATORY ANALYST.CONTROL PANEL ASSEMBLER Work Phone: [place] [address]-20-2025 10:23-8792DeY2% (BldA) [Mass fraction]95 %Merline Ildefonso EPIC AMBULATORY ANALYST.CONTROL PANEL ASSEMBLER Work Phone: [facility]08-20-2025 10:23-0400Systolic blood mm[Hg]Merline Fregoso APRN.CONTROL PANEL ASSEMBLER Work Phone: [facility]08-18-2025 14:24-0400Body mass index (BMI) [Ratio]29.37 kg/m2MARTITA Grant MD Work Phone: [facility]08-18-2025 14:24-0400Body temperature 97.11 [degF]MARTITA Grant MD Work Phone: [facility]08-18-2025 14:24-0400Body evjqyf46.9 kgMARTITA Grant MD Work Phone: [facility]08-18-2025 14:24-0400Diastolic blood woaoiavl75 mm[Hg]MARTITA Grant MD Work Phone: [facility]08-18-2025 14:24-0400Heart rate91 /min MARTITA Grant MD Work Phone: [facility]08-18-2025 14:24-0400Respiratory rate 18 /MaksimMARTITA Grant MD Work Phone: [facility]08-18-2025 14:24-3950NiR2% (BldA) [Mass fraction]100 %MARTITA Grant MD Work Phone: [facility]08-18-2025 14:24-0400Systolic blood vmskiyle884 mm[Hg]MARTITA Grant MD Work Phone: [facility]08-13-2025 10:14-0400Body jbpymi103 cm Merline Fregoso APRN.CONTROL PANEL ASSEMBLER Work Phone: [facility]08-13-2025 10:14-0400Body mass index (BMI) [Ratio]29.44 kg/i0WrmjpkMerline Fregoso APRN.CONTROL PANEL ASSEMBLER Work Phone: [facility]08-13-2025 10:14-0400Body temperature 97.11 [degF]Merline Fregoso APRN.CONTROL PANEL ASSEMBLER Work Phone: [phone]13-2025 10:14-0400Body upwtop32.1 kgJaimee Ildefonso EPIC AMBULATORY ANALYST.CONTROL PANEL ASSEMBLER Work Phone: [place] [address]-13-2025 10:14-0400Diastolic blood elshrfdz81 mm[Hg]Merline Ildefonso EPIC AMBULATORY ANALYST.CONTROL PANEL ASSEMBLER Work Phone: [place] [address]-13-2025 10:14-0400Heart rate86 /min Merline Ildefonso EPIC AMBULATORY ANALYST.CONTROL PANEL ASSEMBLER Work Phone: [place] [address]-13-2025 10:14-0400Respiratory rate 18 /minJaimee Ildefonso EPIC AMBULATORY ANALYST.CONTROL PANEL ASSEMBLER Work Phone: [place] [address]-13-2025 10:14-0688MwV3% (BldA) [Mass fraction]97 %Merline Ildefonso EPIC AMBULATORY ANALYST.CONTROL PANEL ASSEMBLER Work Phone: [place] [address]-13-2025 10:14-0400Systolic blood qjuifglz389 mm[Hg]Merline Ildefosno EPIC AMBULATORY ANALYST.CONTROL PANEL ASSEMBLER Work Phone: [facility]08-11-2025 14:11-0400Body cm MARTITA Grant MD Work Phone: [facility]08-11-2025 14:11-0400Body mass index (BMI) [Ratio]29.94 kg/m2MARTITA Grant MD Work Phone: [place] [address]-11-2025 14:11-0400Body temperature 97.2 [degF]MARTITA Grant MD Work Phone: [place] [address]-11-2025 14:11-0400Body pzaahq58.6 kgMARTITA Grant MD Work Phone: [place] [address]-11-2025 14:11-0400Diastolic blood sdoquunh67 mm[Hg]MARTITA Grant MD Work Phone: [place] [address]-11-2025 14:11-0400Heart rate95 /min MARTITA Grant MD Work Phone: [facility]08-11-2025 14:11-0400Respiratory rate 16 /MaksimMARTITA Grant MD Work Phone: [facility]08-11-2025 14:11-8367VoW8% (BldA) [Mass fraction]96 %MARTITA Grant MD Work Phone: [facility]08-11-2025 14:11-0400Systolic blood qjsrspih205 mm[Hg]MARTITA Grant MD Work Phone: [facility]08-04-2025 14:48-0400Body mass index (BMI) [Ratio]29.87 kg/m2MARTITA Grant MD Work Phone: [facility]08-04-2025 14:48-0400Body temperature 97.39 [degF]MARTITA Grant MD Work Phone: [facility]08-04-2025 14:48-0400Body kwhamu46.4 kgMARTITA Grant MD Work Phone: [facility]08-04-2025 14:48-0400Diastolic blood lvtifezc02 mm[Hg]MARTITA Grant MD Work Phone: [facility]08-04-2025 14:48-0400Heart rate99 /min MARTITA Grant MD Work Phone: [facility]08-04-2025 14:48-0400Respiratory rate 18 /MaksimMARTITA Grant MD Work Phone: [facility]08-04-2025 14:48-0411UrY6% (BldA) [Mass fraction]97 %MARTITA Grant MD Work Phone: [facility]08-04-2025 14:48-0400Systolic blood fdcuodiz916 mm[Hg]MARTITA Grant MD Work Phone: [facility]07-28-2025 17:00-0400Body mass index (BMI) [Ratio]30.07 kg/m2MARTITA Grant MD Work Phone: [place] [address]-28-2025 17:00-0400Body temperature 96.69 [degF]MARTITA Grant MD Work Phone: [place] [address]-28-2025 17:00-0400Body kg NA Tasia ELAINE Work Phone: [place] [address]-28-2025 17:00-0400Diastolic blood mm[Hg]NA Tasia ELAINE Work Phone: [place] [address]-28-2025 17:00-0400Heart rate99 /min MARTITA Grant MD Work Phone: [place] [address]-28-2025 17:00-0400Respiratory rate 18 /Maksim Tasia ELAINE Work Phone: [place] [address]-28-2025 17:00-5552MvR7% (BldA) [Mass fraction]96 %MARTITA Grant MD Work Phone: [place] [address]-28-2025 17:00-0400Systolic blood wjdzephq234 mm[Hg]MARTITA Grant MD Work Phone: [facility]07-23-2025 10:29-0400Body luzagg003 cm Bekah Reyeser PA-C Work Phone: [facility]07-23-2025 10:29-0400Body mass index (BMI) [Ratio]30.24 kg/u3Vxrmf Conor PA-C Work Phone: [facility]07-23-2025 10:29-0400Body temperature 97.39 [degF]Bekah Reyeser PA-C Work Phone: [place] [address]-23-2025 10:29-0400Body .5 kgMinnishant Reyeser PA-C Work Phone: [facility]07-23-2025 10:29-0400Diastolic blood lbraqjdl77 mm[Hg]Bekah Perdomo PA-C Work Phone: [facility]07-23-2025 10:29-0400Heart rate86 /min Bekah Reyeser PA-C Work Phone: [facility]07-23-2025 10:29-0400Respiratory rate 18 /minBekah Conor PA-C Work Phone: [facility]07-23-2025 10:293753QtA1% (BldA) [Mass fraction]97 %Bekah Reyeser PA-C Work Phone: [facility]07-23-2025 10:29-0400Systolic blood mm[Hg]Bekah Reyeser PA-C Work Phone: [facility]07-21-2025 15:03-0400Body vpioqa597 cm MARTITA Grant MD Work Phone: [facility]07-21-2025 15:03-0400Body mass index (BMI) [Ratio]30.14 kg/m2MARTITA Grant MD Work Phone: [facility]07-21-2025 15:03-0400Body temperature 97 [degF]MARTITA Grant MD Work Phone: [facility]07-21-2025 15:03-0400Body oopwuh82.2 kgMARTITA Grant MD Work Phone: [facility]07-21-2025 15:03-0400Diastolic blood owlapqst74 mm[Hg]MARTITA Grant MD Work Phone: [facility]07-21-2025 15:03-0400Heart rate81 /min MARTITA Grant MD Work Phone: [place] [address]-21-2025 15:03-0400Respiratory rate 18 /MaksimMARTITA Grant MD Work Phone: [facility]07-21-2025 15:03-6148UeE4% (BldA) [Mass fraction]97 %MARTITA Grant MD Work Phone: [place] [address]-21-2025 15:03-0400Systolic blood cgqruvlv073 mm[Hg]MARTITA Grant MD Work Phone: [facility]07-16-2025 10:43-0400Body cm Bekah Conor PA-C Work Phone: [facility]Comment [facility]:verified no shoes 03-11-2025 10:43-0400Body mass index (BMI) [Ratio]30.37 kg/f9Tngde Conor PA-C Work Phone: [facility]07-16-2025 10:43-0400Body temperature 97.7 [degF]Bekah Conor PA-C Work Phone: [facility]07-16-2025 10:43-0400Body qejilu17.9 kgMindy Conor PA-C Work Phone: [facility]07-16-2025 10:43-0400Diastolic blood apsbbnmu37 mm[Hg]Bekah Conor PA-C Work Phone: [facility]07-16-2025 10:43-0400Heart rate75 /min Bekah Conor PA-C Work Phone: [facility]07-16-2025 10:43-0400Respiratory rate 18 /minMindy Conor PA-C Work Phone: [facility]07-16-2025 10:43-8292SoP7% (BldA) [Mass fraction]97 %Bekah Conor PA-C Work Phone: [facility]07-16-2025 10:43-0400Systolic blood dgevnpoy314 mm[Hg]Bekah Conor PA-C Work Phone: [facility]06-26-2025 10:17-0400Body gocund201.7 cmGonzalo Ricks MD Work Phone: [facility]06-26-2025 10:17-0400Body mass index (BMI) [Ratio]30.41 kg/f9Wtbyos Cicenia MD Work Phone: [facility]06-26-2025 10:17-0400Body .72 kgJomargie Ricks MD Work Phone: [facility]06-26-2025 10:17-0400Diastolic blood htopexqd31 mm[Hg]Gonzalo Ricks MD Work Phone: [phone]06-26-2025 10:17-0400Heart rate73 /min Gonzalo Ricks MD Work Phone: [facility]06-26-2025 10:17-4605NdS3% (BldA) [Mass fraction]96 %Gonzalo Ricks MD Work Phone: [phone]06-26-2025 10:17-0400Systolic blood nsymoyws131 mm[Hg]Gonzalo Ricks MD Work Phone: [facility]06-06-2025 11:24-0400Body mass index (BMI) [Ratio]30.47 kg/v5HybpbChandan Burgos MD Work Phone: [facility]06-06-2025 11:24-0400Body temperature 97.9 [degF]Chandan Burgos MD Work Phone: [facility]06-06-2025 11:24-0400Body uwdpuu26.9 kgChandan Burgos MD Work Phone: [facility]06-06-2025 11:24-0400Diastolic blood mm[Hg]Chandan Burgos MD Work Phone: [facility]06-06-2025 11:24-0400Heart rate73 /min Chandan Burgos MD Work Phone: [facility]06-06-2025 11:24-0400Respiratory rate 18 /minChandan Burgos MD Work Phone: [facility]06-06-2025 11:24-8526KeW3% (BldA) [Mass fraction]96 %Chandan Burgos MD Work Phone: [facility]06-06-2025 11:24-0400Systolic blood vwbaldqc748 mm[Hg]Chandan Burgos MD Work Phone: [facility]06-03-2025 08:55-0400Body tegqre473.7 cmMARTITA Grant MD Work Phone: [facility]06-03-2025 08:55-0400Body mass index (BMI) [Ratio]30.17 kg/m2MARTITA Grant MD Work Phone: [facility]06-03-2025 08:55-0400Body temperature 96.91 [degF]MARTITA Grant MD Work Phone: [facility]06-03-2025 08:55-0400Body xmovpb42 kg MARTITA Grant MD Work Phone: [facility]06-03-2025 08:55-0400Diastolic blood zpfukneh98 mm[Hg]MARTITA Grant MD Work Phone: [facility]06-03-2025 08:55-0400Heart rate98 /min MARTITA Grant MD Work Phone: [facility]06-03-2025 08:55-0400Respiratory rate 18 /MaksimMARTITA Grant MD Work Phone: [facility]06-03-2025 08:55-1511CpG4% (BldA) [Mass fraction]99 %MARTITA Grant MD Work Phone: [facility]06-03-2025 08:55-0400Systolic blood eylsczcq420 mm[Hg]MARTITA Grant MD Work Phone: [facility]05-14-2025 11:01-0400Body .3 cmAustin Jarquin MD Work Phone: [facility]id01-58-5546 11:01-0400Body mass index (BMI) [Ratio]27.89 kg/j7MfdjkfAustin Jarquin MD Work Phone: [phone] HospitalAfyqizyynr25-06-4271 11:01-0400Body nmonca56.72 kgAustin Jarquin MD Work Phone: [phone])[address] [place], [place] [address] HospitalOyuikpdmrr11-60-6922 11:01-0400Diastolic blood luobysfy73 mm[Hg]Austin Jarquin MD Work Phone: 1(988)[address] [place], [place] 4[address]605-14-2025 11:01-0400Heart rate74 /min Austin Jarquin MD Work Phone: 1(758)[address] [place], [place] [address] HospitalLtwppnbpwk73-66-6131 11:01-0400Systolic blood ixmdoild794 mm[Hg]Austin Jarquin MD Work Phone: 1(335)[address] [place], [place] 4[address]604-23-2025 10:47-0400Body ourttu277.3 cmAustin Jarquin MD Work Phone: [phone])[facility] HospitalFjurclijxs48-35-3500 10:47-0400Body mass index (BMI) [Ratio]27.89 kg/m8CxjmnbAustin Jarquin MD Work Phone: 1(728)[address] [place], [place] [address] HospitalVilxhkfxoe68-36-8047 10:47-0400Body epntbv89.72 kgAustin Jarquin MD Work Phone: 1(186)[address] [place], [place] [address] HospitalNiwkpxwqce85-01-0263 10:47-0400Diastolic blood alqtiaec50 mm[Hg]Austin Jarquin MD Work Phone: [phone] HospitalGnkvbumjhl21-87-4523 10:47-0400Heart rate80 /min Austin Jarquin MD Work Phone: [place] [address]Kxowweycmm14-06-8998 10:47-0400Systolic blood ccqtsugm616 mm[Hg]Austin Jarquin MD Work Phone: [facility] Encounters Encounter DateEncounter TypeCare ProviderFacilityStart: 06-23-2025 End: 68-90-1910Upnhczg encounter procedureHieverardo Jarquin MD Work Phone: [facility] OtolaryngologyComment on above: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)Start: 06-23-2025 End: 19-43-7433nzfukrzgazAPWWNG H TIMMISNot AvailableStart: 06-23-2025 End: 94-36-1686Jeqhgr Desirae Jarquin MD Work Phone: [facility] OtolaryngologyStart: 06-23-2025 End: 47-35-1988Isseuk Desirae Jarquin MD Work Phone: [facility] OtolaryngologyStart: 06-16-2025 End: 96-16-4224zyvunoajpyXCQIYN ENGELERFacility:[facility] Hospitaltart: 06-08-2025 End: 25-41-1402evirkgxnqqYIELN ABHYANKARFacility:[facility] Hospitaltart: 05-21-2025 End: 23-35-0597akfqsljkqkMJKNVBRYS SPEERFacility:[facility] Hospitaltart: 05-20-2025 End: 27-95-8343Znnfvlj encounter procedureAustin Jarquin MD Work Phone: [facility] OtolaryngologyComment on above: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)Start: 05-20-2025 End: 63-07-1149sicouzfulyUJAWJQ Estrella Sandoval AvailableStart: 05-20-2025 End: 14-53-5066Awhbxu Desirae Jarquin MD Work Phone: noMS [facility] OtolaryngologyStart: 05-20-2025 End: 11-48-8560Fhfmdi Desirae Jarquin MD Work Phone: [facility] OtolaryngologyStart: 05-18-2025 End: 61-65-4479dpkgnwcpxiISQHM M MUSSERFacility:[facility] Hospitaltart: 05-13-2025 End: 46-40-5993Lrraxzm encounter procedureG Glenn Grant MD Work Phone: Radiation OncologyComment on above:Head and neck cancer (HCC) (Primary Dx)Start: 05-13-2025 End: 95-61-9973fqujjvxmjiFCLOSL ENGELERFacility:[facility] Hospitaltart: 05-11-2025 End: 91-32-4080ysxympksttIKLUWAE M HOYFacility:[facility]tart: 05-04-2025 End: 10-92-9181Dvaylly encounter procedureG Glenn Grant MD Work Phone: 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); Chemotherapy-induced neutropenia; Thrombocytopenia; Dysphonia; Antineoplastic chemotherapy induced pancytopenia; Pain in throat; Encounter for antineoplastic radiation therapy; Immunocompromised state (HCC); alf current use of immunosuppressive drugStart: 05-04-2025 End: 04-86-9990xgukwzthkrTKXGXZA M ANNFacility:[facility] Hospitaltart: 05-01-2025 End: 22-65-7347quwsjlwmugIQIPGHF M FRACISCOYFacility:[facility]tart: 04-30-2025 End: 51-33-5399oqjzcbbbnnOYDEGBQ M FRACISCOYFacility:[facility]tart: 04-29-2025 End: 89-63-6429Tjjlho outpatient visit 15 minutesMerline Fregoso APRN.CNP Work Phone: Hematology/OncologyComment on above: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); Head and neck cancer (HCC); Chemotherapy-induced neutropenia; Chemotherapy-induced fatigue; Encounter for antineoplastic chemotherapy; Thrombocytopenia; Dysphonia; Malignant neoplasm of unspecified part of unspecified bronchus or lung (HCC) Start: 04-29-2025 End: 74-41-9406ikljbppjtzBRJFEGR M HOYFacility:[facility]tart: 04-28-2025 End: 70-24-7651Orpzaue encounter procedureG Glenn Grant MD Work Phone: Radiation OncologyComment on above:Head and neck cancer (HCC) (Primary Dx)Start: 04-28-2025 End: 27-28-5927ojlhrciiasDXJGZS ENGELERFacility:[facility]tart: 04-24-2025 End: 58-41-8076utdvquqfayVWOZCKZ M HOYFacility:[facility]tart: 04-23-2025 End: 31-68-7650igzlshydaiQGJTWAX M HOYFacility:[facility]: 04-22-2025 End: 06-91-6052fkuhwcagdvETDZDVD M HOYFacility:[facility]: 04-22-2025 End: 00-92-9822ejengomdroMpkuk [address] [place] Work Phone: Hematology/OncologyComment on above:Head and neck cancer (HCC) (Primary Dx)Start: 04-22-2025 End: 21-08-5487Fyzjtt outpatient visit 25 Santi Fregoso APRN.CNP Work Phone: Hematology/OncologyComment on above: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); Head and neck cancer (HCC); Chemotherapy-induced neutropenia; Chemotherapy-induced fatigue; Encounter for antineoplastic chemotherapy; Hypomagnesemia; Dehydration; Thrombocytopenia; DysphoniaStart: 04-22-2025 End: 12-10-7468bjfluzebsoDFLJJNB M HOYFacility:[facility]: 04-21-2025 End: 94-45-2349uxqggrlaskOIJCNNV M HOYFacility:[facility]: 04-20-2025 End: 12-42-9830Tgvfgcj encounter procedureG Glenn Grant MD Work Phone: Radiation OncologyComment on above:Head and neck cancer (HCC) (Primary Dx)Start: 04-20-2025 End: 42-19-0905nrbficyqviPAIENTR M HOYFacility:[facility]: 04-15-2025 End: 92-59-9030Iopfio outpatient visit 40 minutesMerline Fregoso APRN.MARY ELLEN Work Phone: Hematology/OncologyComment on above: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); Chemotherapy-induced neutropenia; Chemotherapy-induced fatigue; Head and neck cancer (HCC); Constipation, unspecified constipation type; Encounter for antineoplastic chemotherapy; Hypomagnesemia; Malignant neoplasm of unspecified part of unspecified bronchus or lung (HCC); Dehydration; Dysphonia; ThrombocytopeniaStart: 04-15-2025 End: 56-43-6065xzlakudnsvJosmk [address] [place] Work Phone: Hematology/OncologyComment on above:Head and neck cancer (HCC) (Primary Dx); 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)Start: 04-14-2025 End: 61-00-7295guootyvstkVYPYPGJ M HOYFacility:[facility]tart: 04-13-2025 End: 71-33-9568Brkevvh encounter procedureG Glenn Grant MD Work Phone: Radiation OncologyComment on above:Head and neck cancer (HCC) (Primary Dx)Start: 04-13-2025 End: 87-12-6479qaijtzenxkJXJQHT ENGELERFacility:[facility]tart: 04-10-2025 End: 13-82-5929msfzrfztooWOHLKRP M HOYFacility:[facility] HospitalStart: 04-09-2025 End: 65-34-3714ztmyxankzqGYBUAJS M HOYFacility:[facility]: 04-08-2025 End: 79-28-3926Txkzzh outpatient visit 25 minutesMerline Fregoso APRN.MARY ELLEN Work Phone: Hematology/OncologyComment on above: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); Malignant neoplasm of unspecified part of unspecified bronchus or lung (HCC); Head and neck cancer (HCC); Encounter for antineoplastic chemotherapy; Chemotherapy-induced fatigue; Thrombocytopenia; Constipation, unspecified constipation type; Neoplastic (malignant) related fatigue; DehydrationStart: 04-08-2025 End: 39-71-8352bkivebhvojQyjoq [address] [place] Work Phone: Hematology/OncologyComment on above: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)Start: 04-07-2025 End: 31-73-3358jmkftcgqbvBTPEOAY M HOYFacility:[facility] HospitalStart: 04-06-2025 End: 35-67-0827Ecwnrtb encounter procedureG Glenn Grant MD Work Phone: Radiation OncologyComment on above:Head and neck cancer (HCC) (Primary Dx)Start: 04-06-2025 End: 13-00-2288fydefrwoswCSZDZH ENGELERFacility:[facility]tart: 04-03-2025 End: 69-09-7498smnyliukrgOELMMVG M HOYFacility:[facility]: 04-02-2025 End: 86-86-2380abvkpiuioyMCEVTQK M HOYFacility:[facility]: 04-01-2025 End: 16-91-2637vnbbslbjqyZCWAS ABHYANKARFacility:[facility]tart: 04-01-2025 End: 47-30-8113lgtdksqftyVJXSKKU M HOYFacility:[facility]: 03-31-2025 End: 39-67-6941ncqdeqnwtxROTSOQU M HOYFacility:[facility]: 03-30-2025 End: 45-74-9878Lmmatwv encounter procedureG Glenn Grant MD Work Phone: Radiation OncologyComment on above:Head and neck cancer (HCC) (Primary Dx)Start: 03-30-2025 End: 80-86-2777oeegiwhgbvGDKODP ENGELERFacility:[facility]tart: 03-27-2025 End: 76-42-1132uvetjlnibsNZSDVHX M HOYFacility:[facility]: 03-26-2025 End: 00-37-9409mxcivdhwopSJTCYKL M HOYFacility:[facility]: 03-25-2025 End: 53-83-6208Mvonir WorkLorwicho LORENZematology/OncologyComment on above:Head and neck cancer (HCC) (Primary Dx); 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)Start: 03-24-2025 End: 98-67-5286zmxuzovhgmINYJPVM M HOYFacility:[facility]: 03-23-2025 End: 81-29-3500Yaptesc encounter procedureG Glenn Grant MD Work Phone: Radiation OncologyComment on above:Head and neck cancer (HCC) (Primary Dx)Start: 03-23-2025 End: 29-62-0274lhfjsbaqkxBPFFFYU M HOYFacility:[facility]: 03-20-2025 End: 83-09-4999goxgcjlhspPVWCJJY M HOYFacility:[facility]: 03-19-2025 End: 30-57-6362eotysyjdyiTWTVLQI M HOYFacility:[facility]: 03-18-2025 End: 05-13-0404suojddebdqUHRMGAH M HOYFacility:[facility]: 03-18-2025 End: 83-01-3631Wpruyo outpatient visit 25 minutesBekah Perdomo PA-C Work Phone: Hematology/OncologyComment on above: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)Start: 03-18-2025 End: 68-52-0932juyqtmnautLhxrn [address] Work Phone: Hematology/OncologyComment on above:Head and neck cancer (HCC) (Primary Dx); 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)Start: 03-18-2025 End: 74-83-4641lgrtjhxtloNHOVSAG M HOYFacility:[facility]: 03-17-2025 End: 56-58-0802abaqltagedIRJBXYX M HOYFacility:[facility]: 03-16-2025 End: 55-14-1433Wiktbad encounter procedureG Glenn Grant MD Work Phone: Radiation OncologyComment on above:Head and neck cancer (HCC) (Primary Dx)Start: 03-16-2025 End: 23-40-8654zzoiilayvyXFGKOBH M HOYFacility:[facility]: 03-16-2025 End: 69-73-6563Rydnltmmz encounterRelisa Rollins RN Work Phone: Hematology/OncologyComment on above:Care Coordination (C1D1 Post Treatment Call)Start: 03-13-2025 End: 15-49-0770zwvcjriwcqEPJIPSO M HOYFacility:[facility]: 03-12-2025 End: 20-82-2156kxiwhcxjbcENGMKZF M HOYFacility:[facility] HospitalStart: 03-11-2025 End: 48-51-2076Gfcgbxe encounter procedureG Glenn Grant MD Work Phone: Radiation OncologyComment on above:Head and neck cancer (HCC) (Primary Dx)Start: 03-11-2025 End: 55-93-5886vihzpqlzhcEKXJAU ENGELERFacility:[facility] HospitalStart: 03-11-2025 End: 02-64-7889Sjmgmy outpatient visit 25 minutesBekah Perdomo PA-C Work Phone: Hematology/OncologyComment on above: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); Type 2 diabetes mellitus without complication, unspecified whether fpc insulin use (HCC)Start: 03-11-2025 End: 20-45-0205ekugzfckqnDtnlw Barrie Weiss Work Phone: Hematology/OncologyComment on above:Head and neck cancer (HCC) (Primary Dx); 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)Start: 03-04-2025 End: 79-18-5300Mgmaijm encounter procedureCcf ProviderWood County Hospital DepartmentStart: 03-03-2025 End: 86-74-6786Jyggmenon Oncology NoteG Glenn Grant MD Work Phone: Radiation OncologyComment on above:Simulation Note Treatment PlanningStart: 03-03-2025 End: 27-74-5506Fnqupbn encounter procedureG Glenn Grant MD Work Phone: Radiation OncologyComment on above:Head and neck cancer (HCC) (Primary Dx)Start: 03-03-2025 End: 49-93-8822Rteeowq evaluation of patient and reportAleksandra Rollins RN Work Phone: Hematology/OncologyComment on above:Encounter for education (Primary Dx)Refill Request (Zofran & Compazine)Head and neck cancer (HCC) (Primary Dx)Start: 03-03-2025 End: 88-19-4265prjpuuyjucBbbamtl Sessler RN Work Phone: Hematology/OncologyComment on above:First Time Treatment Education (Cisplatin)Start: 02-24-2025 End: 54-19-7795mkreekdtksOTSRVG C CICENIAFacility:[facility] Hospitaltart: 02-19-2025 End: 65-31-8123Edxazhx encounter procedureGonzalo Ricks MD Work Phone: PulmonologyComment on above:Adenopathy (Primary Dx); Head and neck cancer (HCC); Type 2 diabetes mellitus without complication, 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); Presence of aortocoronary bypass graftStart: 02-19-2025 End: 49-08-8906bkmqtklagzYBAXYG C CICENIAFacility:[facility] Hospitaltart: 02-17-2025 End: 02-19-2596Ravxprarb encounterGonzalo Ricks MD Work Phone: PulmonologyComment on above:to Start: 02-13-2025 End: 92-64-8486xblaswzbzvIlitvsrkMirna CochranmonologyStart: 02-13-2025 End: 22-49-5701A-mail encounter from Deya Diallo Start: 02-13-2025 End: 73-49-7994Oewvpojpa encounterMichelmay K Heugel RNPulmonologyStart: 02-12-2025 End: 52-21-9566zopyvovdqzZsslkre M HoyFacility:[facility] Start: 02-10-2025 End: 25-22-0691Zpeeivzqc encounterG Glenn Grant MD Work Phone: Radiation OncologyComment on above:Future Appointment (Schedule Simulation)Start: 02-09-2025 End: 27-05-1267phmqaybjtyKqbhlvx Kandzer RD Work Phone: Hematology/OncologyStart: 02-09-2025 End: 07-60-1385Rhsjjbyla therapyCaarely Qiu RD Work Phone: Hematology/OncologyComment on above:Nutrition AssessmentStart: 02-09-2025 End: 74-77-2406qpzsimfuceEWOTO ABHYANKARFacility:[facility] HospitalStart: 02-05-2025 End: 50-26-7354Mrarjyj encounter procedureCcf ProviderWood County Hospital DepartmentStart: 02-05-2025 End: 64-35-7361Taecxndcc encounterG Glenn Grant MD Work Phone: Caneli Appts MCStart: 02-05-2025 End: 89-03-7553Umhrwy outpatient visit 25 minutesG Glenn Grant MD Work Phone: Radqgihfv OncologyComment on above:Head and neck cancer (HCC) (Primary Dx); Lung noduleStart: 02-05-2025 End: 44-98-7177itnqfaghziJndgbm C Cicenia MD Work Phone: fv Provider AdultComment on above:Bronchoscopy SchedulingStart: 02-03-2025 End: 02-37-9737Ggcmfjlhr encounterAleksandra Rollins RN Work Phone: Hematology/OncologyComment on above:Care Coordination (Antiemetics)Start: 01-30-2025 End: 81-48-4261Amjsgvqax encounterChandan Burgos MD Work Phone: Cancer Appts MCComment on above:AppointmentStart: 01-30-2025 End: 19-58-1566pzvqjgbunmUXOSPT ENGELERFacility:[facility] Hospitaltart: 01-30-2025 End: 38-17-6603Yfsbsm outpatient new 60 minutesChandan Burgos MD Work Phone: Hematology/OncologyComment on above:Head and neck cancer (HCC); 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); Personal history of nicotine dependence; Presence of aortocoronary bypass graft; Type 2 diabetes mellitus without complication, unspecified whether fpc insulin use (HCC)Start: 01-30-2025 End: 20-51-8341ditwemmhwzDRUBZN ENGELERFacility:[facility] Hospitaltart: 01-28-2025 End: 16-51-9729hddqlvltcuJQNPEE ENGELERFacility:[facility] Hospitaltart: 01-28-2025 End: 75-77-6194Vplxgfhijl hospital visit by physicianArrival Time Radiology Work Phone: Radiology Pet CTComment on above:Head and neck cancer (HCC) [C76.0]Start: 01-27-2025 End: 83-16-4776Zijkqpkcu encounterG Glenn Grant MD Work Phone: Radiation OncologyComment on above:AppointmentStart: 01-27-2025 End: 84-46-0303Atqemx outpatient new 45 minutesG Glenn Grant MD Work Phone: Radiation OncologyComment on above:Head and neck cancer (HCC) (Primary Dx)Start: 01-27-2025 End: 72-28-3874rzklcefovsNueabi E Graves RNRadiation OncologyComment on above: Patient EducationStart: 01-26-2025 End: 47-32-6835Bsjqpabbey Story RN Work Phone: Hematology/OncologyComment on above:Research (Prescreen)Start: 01-07-2025 End: 99-61-1226Meqhgt Desirae Jarquin MD Work Phone: NOJX CI ENTStart: 01-07-2025 End: 38-70-5393Cghpch flowsheetAustin Jarquin MD Work Phone: noms CI ENTStart: 01-07-2025 End: 71-47-6389Pjhfdae encounter procedureAustin Jarquin MD Work Phone: noms CI ENTComment on above:Cancer of true vocal cord (Primary Dx)Start: 01-07-2025 End: 79-59-2170fwewcsnxclPXJVVO H TIMMISNot AvailableStart: 01-01-2025 End: 55-34-2480Jcbmgspp Result EncounterAustin Jarquin MD Work Phone: NOHR External Department UnsolicitedStart: 01-01-2025 End: 21-40-2159Fzdekxfi Result EncounterAustin Jarquin MD Work Phone: NOFJ External Department UnsolicitedStart: 01-01-2025 End: 01-81-7010cerypxwzfiOalaaw H Timmis [facility] Work Phone: Start: 01-01-2025 End: 64-33-5880Mlhbpysi ReferredAustin Jarquin [facility]- LAB Path Spec [facility] HospStart: 12-19-2024 End: 83-09-4194Mroomxquk Result EncounterAustin Jarquin MD Work Phone: NOUC External Department UnsolicitedStart: 12-19-2024 End: 74-80-7818Cndvuvgka Result EncounterHieverardo Jarquin MD Work Phone: noms External Department UnsolicitedStart: 12-17-2024 End: 13-56-4016Avupsp flowsheetAustin Jarquin MD Work Phone: NOVD CI ENTStart: 12-17-2024 End: 64-95-1887Zdrsji flowsheetAustin Jarquin MD Work Phone: NOMS CI ENTStart: 12-17-2024 End: 14-11-9492Yfgazg outpatient new 45 minutesAustin Jarquin MD Work Phone: noms CI ENTComment on above:Vocal cord mass (Primary Dx); HoarseStart: 12-17-2024 End: 68-78-9922marrkbdukmFCOMRB H TIMMISNot AvailableStart: 10-31-2024 End: 94-18-8769qftisofexjRNRZAW [facility] Start: 05-16-2024 End: 84-99-8928uqprenfdvqVMOWHDX Centervilletart: 01-08-2023 End: 06-79-9289lztadqdnytLX DOUGLAS HOY .Facility:K9Meskd: 02-01-2022 End: 65-76-5270xkixfwjxlmPW FAUSTO JUAREZ .Facility: Procedures DateProcedureProcedure DetailPerforming ClinicianStart: 13-62-3168Qhcya of Brisa Fregoso APRN.CONTROL PANEL ASSEMBLER Work Phone: Start: 60-44-2812Vhxq bld gluc mntr dev cleared fda spec home useCcf ProviderStart: 10-94-1352MKCEUMCIT REQUEST FOR LAB CORPAustin Jarquin MD Work Phone: Start: 00-26-0219LC CHEST 2VHieverardo Jarquin MD Work Phone: Start: 08-73-3528UUA 12-LEADHieverardo Jarquin MD Work Phone: Plan of Treatment DateCare ActivityDetailAuthorStart: 93-90-9325Ynqbmupd ScreeningDiabetes ScreeningSaint Croix Falls ClinicStart: 40-36-7137Crqaslsl ScreeningDiabetes Screening [place] ClinicStart: 78-87-8671Gtwcxqaj ScreeningDiabetes ScreeningSaint Croix Falls ClinicStart: 51-36-1424Xfhcblik ScreeningDiabetes ScreeningWood County Hospital Start: 14-04-9218Nqidcuqn ScreeningDiabetes ScreeningSaint Croix Falls ClinicStart: 75-13-6274Gqhgfjnd ScreeningDiabetes ScreeningPremier Health Upper Valley Medical Centertart: 04-08-2028 Diabetes ScreeningDiabetes ScreeningPremier Health Upper Valley Medical Centertart: 23-94-1612Cvxwtmys ScreeningDiabetes ScreeningPremier Health Upper Valley Medical Centertart: 13-28-4184Sdcolobf Screening Diabetes ScreeningPremier Health Upper Valley Medical Centertart: 98-14-3532Uswpbepk ScreeningDiabetes ScreeningPremier Health Upper Valley Medical Centertart: 87-32-2435Oocnkscn ScreeningDiabetes Screening [facility] Centertart: 45-22-5407Memybxqw ScreeningDiabetes ScreeningPremier Health Upper Valley Medical Centertart: 69-52-2942Qxeiwkkc ScreeningDiabetes ScreeningWood County Hospital Start: 11-18-2025 End: 23-78-9901Eimknry encounter blwydbqvp16/25/2026 2:30 PM EDT Office Visit [facility] [place] [facility] [address] [place] [address] Austin Jarquin MD [address] [facility] [address] [place] [address] [facility] [place] OtolaryngologyStart: 10-21-2025 End: 00-54-8806Bhimkif encounter wtpbakeyo66/25/2026 2:30 PM EST Office Visit [facility] [place] [facility] [address] [place] [address] Austin Jarquin MD [address] [facility] [address] [place] [address] [facility] [place] OtolaryngologyStart: 09-23-2025 End: 26-68-0145Xnrdzoc encounter nazrguuza44/28/2026 2:30 PM EST Office Visit [facility] [place] [facility] [address] [place] [address] Austin Jarquin MD [address] [place] [address] [facility] [place] OtolaryngologyStart: 08-18-2025 End: 58-88-4816Yrbcytq encounter cxivsuoos17/23/2025 2:30 PM EST Office Visit [facility] [place] [facility] [address] [place] [address] Austin Jarqiun MD [address] [place] [address] [facility] [place] OtolaryngologyStart: 08-10-2025 End: 38-12-9182Blijaxn encounter hyzhybnhj99/15/2025 8:45 AM EST Appointment Radiology Pet CT [address] [place] [address] [place] [address] pet Radiology Pet CTComment on above:petStart: 07-29-2025 End: 36-16-6132XXA+CT Guidance for localization of tumor of Skull base to mid-thigh-- W 18F-FDG IVNM PET/CT SKULL-THIGH SUBSEQUENT Radiology Routine Head and neck cancer (HCC) Expected: 07/29/2025,Expires: 06/12/2026[facility] Work Phone: Comment on above:Expected: 07/29/2025, Expires: 06/12/2026Start: 07-21-2025 End: 41-93-5116Zimgdbl encounter /25/2025 2:30 PM EST Office Visit [facility] [place] [facility] [address] [place] [address] Austin Jarquin MD [address] [place] [address] [facility] [place] OtolaryngologyStart: 06-23-2025 End: 42-94-2841Fdfharc encounter inynsmfwk25/28/2025 2:30 PM EDT Office Visit [facility] [place] [facility] [address] [place] [address] Austin Jarquin MD [address] [place] [address] ArrivedNOMS [place] OtolaryngologyComment on above:ArrivedStart: 06-16-2025 End: 02-57-2122Ealifoc encounter jkadyvegh44/21/2025 9:30 AM EDT Office Visit Radiation Oncology [address] [address] Evy Grant MD [address] [address] TRY TO COORDINATE THIS APPT WITH MED ONC AFTER MM APPT ON 05/18Radiation OncologyComment on above:TRY TO COORDINATE THIS APPT WITH MED ONC AFTER MM APPT ON 05/18Start: 05-20-2025 End: 37-32-4720Zczdlju encounter skilkjiwy84/24/2025 2:20 PM EDT Office Visit [facility] [place] [facility] [address] [facility] [address] [place] [address] Austin Jarquin MD [address] [facility] [address] [place] [address] ArrivedNOMS [place] OtolaryngologyComment on above:ArrivedStart: 05-18-2025 End: 67-10-7719Sfjdqj-up tbawbwxgh38/22/2025 11:30 AM EDT Visit (SP) Office Hematology/Oncology [address] [facility] [address] Bekah Perdomo PA-C [address] [place] [address] 2 week follow up with lab /CHRISTIANNE to seeHematology/OncologyComment on above:2 week follow up with lab /CHRISTIANNE to seeStart: 05-18-2025 End: 46-41-5010Rvzxcbn encounter gsmcoujtt87/22/2025 11:15 AM EDT Office Visit [facility] [address] [address] 2 week follow up with lab /CHRISTIANNE to seeNGreenbrier Valley Medical Center LaboratoryComment on above:2 week follow up with lab /CHRISTIANNE to see Start: 05-13-2025 End: 72-05-6145Nkhbtzr encounter unpszodqp62/17/2025 10:15 AM EDT Office Visit Radiation Oncology [address] [place] [address] Evy Grant MD [address] [facility] [address] 1-2 week Final radiation follow upRadiation OncologyComment on above:1-2 week Final radiation follow upStart: 05-11-2025 End: 38-90-3313Owegvjo encounter /15/2025 11:30 AM EDT Office Visit [facility] [address] [address] SerranoGreenbrier Valley Medical Center LaboratoryComment on above:weekly lab per Dr Oakleytart: 05-04-2025 End: 95-94-9329Posaepb encounter fmbkdadqe89/08/2025 1:15 PM EDT Appointment Radiation Oncology [address] [place] [address] head/neck Radiation OncologyComment on above:head/neckStart: 05-04-2025 End: 68-20-1066Wxqfhpr encounter qfzqndomw23/08/2025 11:15 AM EDT Appointment Radiation Oncology [address] [place] [address] head/neck- paulino at 10 - this time today CDTRadiation OncologyComment on above: head/neck- paulino at 10 - this time today CDTStart: 05-04-2025 End: 31-83-0171Lrnhct-up sysxzihps82/08/2025 10:00 AM EDT Visit (SP) Office Hematology/Oncology [address] [place] [address] Chandan Burgos MD [address] [place] [address] lab follow upHematology/OncologyComment on above:lab follow upStart: 05-04-2025 End: 09-19-5686Xoorykw encounter fonsyypjn38/08/2025 9:45 AM EDT Office Visit [facility] [address] [place] [address] lab follow upNortAscension [facility] Comment on above:lab follow upStart: 05-01-2025 End: 85-95-5681Jifobrv encounter hwdcoeghn84/05/2025 9:30 AM EDT Appointment Radiation Oncology [address] [place] [address] head/neck Radiation OncologyComment on above:head/neckStart: 04-30-2025 End: 85-93-0370Afxgnbj encounter wzujzmwxh11/04/2025 12:45 PM EDT Appointment Radiation Oncology [address] [place] [address] head/neck Radiation OncologyComment on above:head/neckStart: 04-29-2025 End: 57-70-0606Ousvekn encounter procedureRadiation OncologyComment on above: head/neckLocation: [facility] TREATMENT REVStart: 04-29-2025 End: 88-13-0672Olqott-up encounterHematology/OncologyComment on above:lab follow up and Cisplatin -Start: 04-29-2025 End: 77-29-3700Izcxyqs encounter fdavujyyw27/03/2025 10:45 AM EDT Office Visit [facility] [address] [place] [address] lab follow up and Cisplatin -[facility] LaboratoryComment on above:lab follow up and Cisplatin -Start: 04-28-2025 End: 14-90-5840Czezxeq encounter cqbjiubva51/02/2025 1:45 PM EDT Appointment Radiation Oncology [address] [place] [address] head/neck Radiation OncologyComment on above:head/neckStart: 80-82-7995EDRPV-19 Vaccine ( season)COVID-19 Vaccine ( season)[facility] HealthcareStart: 41-57-9597Hhtthjzaj vaccinationNOMS HealthcareStart: 04-24-2025 End: 37-59-3004Hdhsvci encounter iisojlkes27/29/2025 1:45 PM EDT Appointment Radiation Oncology [address] [place] [address] head/neck Radiation OncologyComment on above:head/neckStart: 04-23-2025 End: 21-11-5276Wjiiwim encounter /28/2025 1:45 PM EDT Appointment Radiation Oncology [address] [place] [address] head/neck Radiation OncologyComment on above:head/neckStart: 04-22-2025 End: 70-20-8647Eowmcyr encounter procedureRadiation OncologyComment on above: head/neckLocation: [facility] TREATMENT REVStart: 04-22-2025 End: 06-23-8816Zwkzbu-up encounterHematology/OncologyComment on above:lab follow up and Cisplatin - PT TO SEE MERLINE ALEStart: 04-22-2025 End: 27-05-4309Uferalb encounter glhbqafnu25/27/2025 9:45 AM EDT Office Visit [facility] [place] [address] lab follow up and Cisplatin - PT TO SEE MERLINE DOUGLAS [facility] LaboratoryComment on above:lab follow up and Cisplatin - PT TO SEE MERLINE ALEStart: 04-21-2025 End: 62-47-1456Lcxrlxe encounter dszjobwxu51/26/2025 1:45 PM EDT Appointment Radiation Oncology [address] [place] [address] head/neck Radiation OncologyComment on above:head/neckStart: 04-20-2025 End: 98-60-2886Xhesbsc encounter procedureRadiation OncologyComment on above: head/neckLocation: [facility]-ON TREATMENT REVLABsee pre tx per GPEhead/neck see SPENCER pretx was on break give new Start: 04-17-2025 End: 25-25-4228Mdndpeq encounter aajoniaqx66/22/2025 1:45 PM EDT Appointment Radiation Oncology [address] [place] [address] head/neck Radiation OncologyComment on above:head/neckStart: 04-16-2025 End: 86-27-1677Ouduwgc encounter pruzoxhal35/21/2025 1:45 PM EDT Appointment Radiation Oncology [address] [place] [address] head/neck Radiation OncologyComment on above:head/neckStart: 04-15-2025 End: 93-93-0141Gelqrop encounter procedureRadiation OncologyComment on above: head/neckLocation: [facility]-ON TREATMENT REVStart: 04-15-2025 End: 89-68-7068Mlaabt-up encounterHematology/OncologyComment on above:lab follow up and CisplatinStart: 04-15-2025 End: 78-64-7983Xarrwkv encounter /20/2025 10:15 AM EDT Office Visit [facility] [address] [place] [address] lab follow up and CisplatinNortAscension Macomb-[facility] LaboratoryComment on above:lab follow up and CisplatinStart: 04-14-2025 End: 85-45-2302Wnzaryo encounter wuhlephll30/19/2025 1:45 PM EDT Appointment Radiation Oncology [address] [place] [address] head/neck Radiation OncologyComment on above:head/neckStart: 04-13-2025 End: 23-36-5551Bsdqnoi encounter procedureRadiation OncologyComment on above: head/neckLocation: [facility] TREATMENT REVStart: 04-10-2025 End: 51-24-3040Lbtinrg encounter qeztipoem61/15/2025 1:45 PM EDT Appointment Radiation Oncology [address] [place] [address] head/neck Radiation OncologyComment on above:head/neckStart: 04-09-2025 End: 87-46-5016Fqjhtnw encounter yzaigthdq70/14/2025 1:45 PM EDT Appointment Radiation Oncology [address] [place] [address] head/neck Radiation OncologyComment on above:head/neckStart: 04-08-2025 End: 35-51-0659Yhsgjgt encounter procedureRadiation OncologyComment on above: head/neckLocation: SA-ON TREATMENT REVhead/neck- chemo at 11Start: 04-08-2025 End: 29-17-0642Rzsnko-up qblltdcuy74/13/2025 11:00 AM EDT Infusion Center Hematology/Oncology [address] [facility] [place] [address] lab follow up and CisplatinHematology/OncologyComment on above:lab follow up and CisplatinStart: 04-07-2025 End: 46-82-9740Artskao encounter /12/2025 1:45 PM EDT Appointment Radiation Oncology [address] [place] [address] head/neck Radiation OncologyComment on above:head/neckStart: 04-06-2025 End: 79-28-4668Fupplaa encounter procedureRadiation OncologyComment on above: head/neckLocation: [facility]-ON TREATMENT REVStart: 04-03-2025 End: 10-10-3923Izqbpra encounter gpgcbjfiz32/08/2025 2:00 PM EDT Appointment Radiation Oncology [address] [place] [address] head/neck Radiation OncologyComment on above:head/neckStart: 04-02-2025 End: 96-71-2212Qixsjfi encounter kybrmjepx95/07/2025 1:45 PM EDT Appointment Radiation Oncology [address] [place] [place] [address] head/neck Radiation OncologyComment on above:head/neckStart: 04-01-2025 End: 59-30-3138Mgmjjlg encounter procedureRadiation OncologyComment on above: head/neckLocation: SA-ON TREATMENT REVhead/neck- chemo at 845, doesnt want to come beforeStart: 04-01-2025 End: 04-69-2866ajodemjwbi94/06/2025 8:30 AM EDT Infusion Center Hematology/Oncology [address] [place] [address] Cisplatin - date/time per TSmithHematology/OncologyComment on above:Cisplatin - date/time per TSmithStart: 03-31-2025 End: 05-39-0972Spkqhzh encounter hzbfqidrq40/05/2025 1:45 PM EDT Appointment Radiation Oncology [address] [facility] [place] [address] head/neck Radiation OncologyComment on above:head/neckStart: 03-30-2025 End: 99-83-2344Gxfapul encounter procedureRadiation OncologyComment on above: head/neckLocation: [facility]-ON TREATMENT REVStart: 03-27-2025 End: 72-17-5711Lzyxwko encounter pnhhptxes91/01/2025 2:00 PM EDT Appointment Radiation Oncology [address] [facility] [place] [address] head/neck Radiation OncologyComment on above:head/neckStart: 03-26-2025 End: 60-25-2855Cbeocrc encounter zhvpjnbke53/31/2025 1:45 PM EDT Appointment Radiation Oncology [address] [facility] 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) Expected: 03/25/2025 (Approximate), Expires: 06/24/2025[facility] Work Phone: Comment on above:Expected: 03/25/2025 (Approximate), Expires: 06/24/2025Start: 03-25-2025 End: 42-13-5107Eigxjhqik [Mass/volume] in Serum or PlasmaMAGNESIUM Lab Routine 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) Expected: 03/25/2025 (Approximate), Expires: 06/24/2025leveland ClinicComment on above:Expected: 03/25/2025 (Approximate), Expires: 06/24/2025Start: 03-25-2025 End: 48-75-3585Xfwcoa-up encounterHematology/OncologyComment on above:lab follow up and CisplatinStart: 03-25-2025 End: 77-88-8196Axpsscp encounter procedureRadiation OncologyComment on above: Location: [facility]-ON TREATMENT REVhead/necklab follow up and CisplatinStart: 03-24-2025 End: 11-05-6259Rzxfrag encounter pmoemwvdo06/29/2025 1:45 PM EDT Appointment Radiation Oncology [address] [place] [address] [place] [address] head/neck Radiation OncologyComment on above:head/neckStart: 03-23-2025 End: 47-35-2072Rigpaxf encounter procedureRadiation OncologyComment on above: head/neckLocation: [facility]-ON TREATMENT REVStart: 03-20-2025 End: 55-21-5834Rvyicxg encounter nyljisdtm04/25/2025 1:45 PM EDT Appointment Radiation Oncology [address] [facility] [place] [address] head/neck Radiation OncologyComment on above:head/neckStart: 03-19-2025 End: 36-43-8128Twnyjow encounter uhjbdxcaq33/24/2025 1:45 PM EDT Appointment Radiation Oncology [address] [facility] [place] [address] head/neck Radiation OncologyComment on above:head/neckStart: 03-18-2025 End: 17-02-0380Urshrvn encounter oworphrmz20/23/2025 1:45 PM EDT Appointment Radiation Oncology [address] [place] [address] [place] [address] head/neck Radiation OncologyComment on above:head/neckStart: 03-18-2025 End: 83-62-1226Bckurx-up encounterHematology/OncologyComment on above:lab follow up and CisplatinStart: 03-18-2025 End: 76-53-4705Kusjajc encounter procedureLake Charles Memorial Hospital LaboratoryComment on above:lab follow up and CisplatinLocation: [facility]-ON TREATMENT REVStart: 03-17-2025 End: 17-07-3082Vtnldhj encounter zeswiqncs85/22/2025 1:45 PM EDT Appointment Radiation Oncology [address] [facility] [place] [address] head/neck Radiation OncologyComment on above:head/neckStart: 03-16-2025 End: 02-31-8115Wfiffdg encounter gpgpksjmy99/21/2025 2:30 PM EDT Appointment Radiation Oncology [address] [facility] [place] [address] head/neck Radiation OncologyComment on above:head/neckStart: 03-13-2025 End: 32-72-3552Ogcltmb encounter ohzrjgyjo72/18/2025 2:00 PM EDT Appointment Radiation Oncology [address] [facility] [place] [address] head/neck Radiation OncologyComment on above:head/neckStart: 03-12-2025 End: 05-32-2942Efrjfmg encounter ofmbcxyqz84/17/2025 1:15 PM EDT Appointment Radiation Oncology [address] [facility] [place] [address] head/neck Radiation OncologyComment on above:head/neckStart: 03-11-2025 End: 70-08-9107Acotlek encounter /16/2025 3:15 PM EDT Appointment Radiation Oncology [address] [facility] [place] [address] Evy Grant MD [address] 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) Expected: 03/11/2025, Expires: 06/10/2025[facility] Work Phone: Comment on above:Expected: 03/11/2025, Expires: 06/10/2025Start: 03-11-2025 End: 38-21-1528Nialintmj [Mass/volume] in Serum or PlasmaMAGNESIUM Lab Routine 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) Expected: 03/11/2025, Expires: levelunc health ClinicComment on above:Expected: 03/11/2025, Expires: 06/10/2025Start: 03-11-2025 End: 63-26-9716Jkepgy-up encounterHematology/OncologyComment on above:lab follow up and CisplatinStart: 03-11-2025 End: 49-71-1274Imxqzlh encounter procedureLake Charles Memorial Hospital LaboratoryComment on above:lab follow up and CisplatinNEW START, HEAD/NECKStart: 03-03-2025 End: [id number] encounter procedureRadiation OncologyComment on above:Pre SIM H\T\N/ IV CONTRASTSIM- H\T\N/ IV CONTRAST/ NEEDS CONSENTStart: 03-03-2025 End: [id number] evaluation of patient and reportRadiation OncologyComment on above:IV StartChemo EdStart: 02-24-2025 End: 03-38-3161Niezkkkxy to same day surgery [facility] Endoscopy - ENDOComment on above:BRONCHOSCOPY,RIGID/FLEXIBLE W/ FLUORO,W/ENDOBRONCHIAL ULTRASOUND (EBUS) GUIDED TRANSTRACHEAL/ TRANSBRONCHIAL ASPIRATION/BIOPSY,1 OR 2 MEDIASTINAL AND/OR HILAR LYMPH NODE STATIONS/STRUCTURESStart: 02-24-2025 End: 06-92-5219Jamkwcx ebus guided sampl 1/2 node station/struxFV GIStart: 40-72-1522Ozfuzamfgg hospital visit by [facility] Endoscopy - ENDOComment on above:Adenopathy [R59.9]Start: 02-19-2025 End: 52-20-6931Tallmah encounter nbmuhqnnv15/26/2025 10:30 AM EDT Office Visit Pulmonology [address] [place] [id number] Gonzalo Ricks MD [address] [place] [address] Pre Bronch per M.HPulmonologyComment on above:Pre Bronch per M.HStart: 02-09-2025 End: 76-86-3707Wgsaeff encounter uktygsydo46/16/2025 9:45 AM EDT Education Hematology/Oncology [address] [place] [address] [id number] Shirley Qiu, FERNIE [address] [place], [place] [id number] Nutrition consultHematology/OncologyComment on above: Nutrition consultStart: 02-05-2025 End: 11-85-1621Gqukhyw evaluation of patient and reportRadiation OncologyComment on above:Nurse VisitCISPLATIN/CARBOStart: 02-05-2025 End: 71-78-3965Rrrryfi encounter procedureRadiation OncologyComment on above:SIM Neck IV contrast mask, consent neededPre Sim ConsentStart: 01-30-2025 End: 44-65-3703vzhfenqair17/06/2025 11:00 AM EDT Visit (SP) Office Hematology/Oncology [address] [place] [address] Chandan Burgos MD [address] [place] [address] Grant Head and neck cancer Hematology/OncologyComment on above:referred by Dr. Grant Head and neck cancer Start: 01-28-2025 End: 35-43-2385Ozjngcb encounter fbbobattx86/04/2025 1:30 PM EDT Appointment Radiology Pet CT [address] [place] [address] PET with labRadiology Pet CTComment on above:PET with labStart: 01-27-2025 End: 86-26-8987Jikgohz encounter edmeuekfq78/03/2025 9:00 AM EDT Office Visit Radiation Oncology [address] [place] [address] Evy Grant MD [address] [place] [address] DX Cancer of true vocal cord (HCC) [C32.0]Radiation Oncology Comment on above:DX Cancer of true vocal cord (HCC) [C32.0]Start: 01-13-2025 End: 06-99-4101Zrrnfha encounter qvownfvvx89/20/2025 11:10 AM EDT Office Visit [facility] [address] [place] [address] Austin Jarquin MD [address] [facility] [address] [place] [address] [facility] ENTStart: 01-07-2025 End: 11-00-6889Teufzpg encounter procedureNOMS CI ENTComment on above:Arrived Start: 06-00-6258RgltyjxkpAkron Children's Hospitaltart: 12-17-2024 End: 12-52-4105Oshyapz encounter hnvgygbvn97/23/2025 10:50 AM EDT Office Visit [facility] [address] [place] [address] Austin Jarquin MD [address] [place] [address] ArrivedNOMS CI ENTComment on above:ArrivedStart: 50-55-4847Rcsun-19 Vaccine ( season)Covid-19 Vaccine ( season)[facility]: 15-52-1665Hdyebsk Directive DiscussionAdvance Directive DiscussionPremier Health Upper Valley Medical Centertart: 86-78-6714Ibczw-19 Vaccine ( season)Covid-19 Vaccine ( season)[facility]: 05-22-2018 Pneumococcal Vaccine: 50+ (2 of 2 - PPSV23)Pneumococcal Vaccine: 50+ (2 of 2 - PPSV23)[facility]: 76-65-0630Dlsjolafesgz Vaccine: 65+ Years (2 of 2 - PCV20 or PCV21)Pneumococcal Vaccine: 65+ Years (2 of 2 - PCV20 or PCV21)[facility] HealthcareStart: 54-01-3661Ynouareppqic Vaccine: 65+ Years (2 of 2 - PPSV23) Pneumococcal Vaccine: 65+ Years (2 of 2 - PPSV23)[facility]: 47-47-1227Zpwuddcokwto Vaccine: 50+ (2 of 2 - PPSV23)Pneumococcal Vaccine: 50+ (2 of 2 - PPSV23)[facility]: 18-10-3660Vsorjoabeaoz Vaccine: 50+ (2 of 2 - PPSV23, PCV20, or PCV21)Pneumococcal Vaccine: 50+ (2 of 2 - PPSV23, PCV20, or PCV21)[facility]: 79-16-3123WHO Vaccine (1 - 1-dose 75+ series)RSV Vaccine (1 - 1-dose 75+ series)[facility]: 07-27-2006 Medicare Annual Wellness VisitMedicare Annual Wellness VisitWood County Hospital Start: 57-59-8429Hmflvguaxfyz Vaccine: 50+ (1 of 1 - PCV)Pneumococcal Vaccine: 50+ (1 of 1 - PCV)[facility]: 09-03-8959Ygbmdwuj Vaccine (1 of 2) Shingrix Vaccine (1 of 2)[facility]: 75-76-7956Kaqdnnnt Vaccine (1 of 2)Shingrix Vaccine (1 of 2)[facility]: 81-74-2666Btoxq microalbumin profileDTaP,Tdap,Td Vaccine (1 - Tdap)[facility]: 57-88-8964Zrttbda ScreeningAnxiety ScreeningPremier Health Upper Valley Medical Centertart: 96-73-4334Nwobgzbtga Screening Depression ScreeningPremier Health Upper Valley Medical Centertart: 44-23-8895UIwV/Tdap/Td Vaccines (1 - Tdap)DTaP/Tdap/Td Vaccines (1 - Tdap)[facility] End: 34-80-0003RMH W Auto Differential panel - BloodCOMPLETE BLOOD COUNT AND DIFFERENTIAL Lab Routine Head and neck cancer (HCC) Once per week for 10 Oc currences starting 01/30/2025 until 01/30/2026, 1 [facility] Work Phone: Comment on above:Once per week for 10 Occurrences starting 01/30/2025 until 01/30/2026, 1 completed End: 43-65-9747LLY W Auto Differential panel - BloodCOMPLETE BLOOD COUNT AND DIFFERENTIAL Lab Routine 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) Once per weekfor 3 Occurrences starting 05/04/2025 until 05/04/2026[facility] Comment on above:Once per week for 3 Occurrences starting 05/04/2025 until 05/04/2026T Guidance for radiation treatment of Unspecified body regionCT SIM PLANNING RADIATION ONCOLOGY Radiology Routine Head and neck cancer (HCC) Ordered: 03/03/2025[facility] Work Phone: Comment on above:Ordered: 03/03/2025 End: 36-40-0584NUU COMPLETEECG COMPLETE ECG Routine Adenopathy 1 Occurrences starting 02/05/[address] [place] [address] Work Phone: Comment on above:1 Occurrences starting 02/05/2025 until 02/05/2026PET+CT Guidance for localization of tumor of Skull base to mid-thigh-- W 18F-FDG IVNM PET/CT SKULL-THIGH INITIAL Radiology Routine Head and neck cancer (HCC) 01/28/2025 3:23 PM [facility] Work Phone: Immunizations Immunization DateImmunizationNotesCare RtmdoblbBlaidsaj85-51-4076GCNKN-85 vaccine, age 6 mo - 11 yr (MODERNA)Aleksandra Rollins RN Work Phone: [facility] HospitalNrodzi89-36-0632Xdxidedv trivalent influenza vaccine, adjuvanted, preservative freeMARTITA Grant MD Work Phone: [facility] HospitalYoisjz21-92-7800qtsancahr virus vaccine, unspecified formulationMARTITA Grant MD Work Phone: [facility] HospitalZijgix39-05-9434uqexjxlxc (aIIV4) vaccine, age 65+ yr, quadrivalent, PF (FLUAD QUAD)MARTITA Grant MD Work Phone: [facility] HospitalBqadyq50-94-3728mamwcilkd (aIIV4) vaccine, age 65+ yr, quadrivalent, PF (FLUAD QUAD)Aleksandra Rollins RN Work Phone: [facility] HospitalFekjrb81-46-9348ayqqwamav virus vaccine, unspecified formulationAustin Jarquin MD Work Phone: [facility] HospitalEeygcxigdd32-22-9647rktwpnjbd, high dose seasonal, preservative-freeAleksandra Rollins RN Work Phone: [facility] HospitalHjghdm32-72-4683yhrqkva vaccine or immune globulinAleksandra Rollins RN Work Phone: [facility] HospitalZmyqfw48-80-7765Qqhpummx trivalent influenza vaccine, adjuvanted, preservative freeAleksandra Rollins RN Work Phone: [facility] HospitalCthmhr72-38-8745zppkuvjjb, high dose seasonal, preservative-freeAleksandra Rollins RN Work Phone: [facility] HospitalLdqont48-15-5059lghfamyminvl conjugate vaccine, 13 valentRelisa Rollins RN Work Phone: [facility] HospitalMxterp06-04-6566ykcwxciys, injectable, quadrivalent, contains preservativeRelisa Rollins RN Work Phone: [facility] HospitalUgleqz37-66-3615ietijiruq, seasonal, injectableRelisa Rollins RN Work Phone: [facility] HospitalGhvewu71-68-6046jyiwghgxd virus vaccine, whole virusRelisa Rollins RN Work Phone: [facility] Payers DatePayer CategoryPayerPolicy [id number]-[id number] Health [id number] 2006Medicare [id number] [id number] Health [id number] Social History DateTypeDetailFacilityTobacco smoking status NHISTobacco smoking consumption unknownNOMS HealthcareStart: 19-80-9707Cbt assigned at birthNot on fileNOWV HealthcareStart: 12-17-2024 End: 00-17-3146Vedyqx identityNot on [facility] HealthcareStart: 12-17-2024 End: 23-05-9883Nazgimh smoking status NHISEx-smokerNOMS HealthcareStart: 27-84-2248Lgopxko of tobacco useCurrent smokerNOMS HealthcareStart: 08-27-1953 History of tobacco useCigarette SmokerNOMS HealthcareStart: 12-17-2024 End: 30-38-8636Uvtsdwb use and exposureSmokeless tobacco non-userNOMS Healthcare Start: 12-17-2024 End: 42-27-4559Bhwleajfr beverage intakeEx-drinker (finding)[facility] Start: 12-17-2024 End: 05-02-2984Ujlwobo of Social functionNOMS HealthcareStart: 01-04-5449FrlPpjw (finding)[facility] Hospitaltart: 90-24-9784Evo Assigned At BirthSouthwest General Health Centertart: 12-02-2015 End: 11-19-2248Lcsvspty Score (1-100), lower number is lower hixu53FcvvsxvesWood County Hospital Clinical Notes 05-16-2024 to 06-23-2025 Note Date & OwdzDltaXbylatcs95-94-2743 History of Present illness Narrative* Austin Jarquin MD - 06/23/2025 2:30 PM EDT Images [...] disease (HCC) 01/09/2023 Coronary artery disease of [place] artery of [place] heart with stable angina pectoris 01/09/2023 Essential hypertension 01/09/2023 Hyperlipidemia 01/09/2023 Hypomagnesemia 01/16/2023 Obesity 01/11/2023 Pleural effusion 01/17/2023 Postoperative atrial fibrillation (HCC) 01/21/2023 Pure hyperglyceridemia 01/09/2023 Type 2 diabetes mellitus without complications (HCC) 01/09/2023 Unspecified macular degeneration 01/09/2023 Acute bronchitis [...] vocal cord (HCC) 02/01/2025 Onychomycosis 05/18/2025 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 documented in this encounterUniversity HospitalEqujkpdtdz65-51-3265 NoteUniversity Hospitals [facility] Center10-13-2025 NoteUniversity Hospitals Tripoint [facility] Center10-13-2025 NoteUniversity Hospitals [facility]point [facility] Center09-25-2025 NoteUniversity Hospitals [facility]point [facility] Center09-24-2025 History of Present illness Narrative* Austin Jarquin MD - 05/20/2025 2:20 PM EDT Images from the original note were not included. Subjective Patient ID: Chad Mckeon is a 84 y.o. male who presents for Follow-up (Follow up Dr Mcdonnell post OP) F/U after completion of chemo/XRT. No family history on file. Active Ambulatory Problems Diagnosis Date Noted Acute blood loss as cause of postoperative anemia 01/21/2023 Acute respiratory insufficiency 01/16/2023 Angina pectoris, unstable (HCC) 01/09/2023 Atelectasis 01/21/2023 Chronic obstructive pulmonary disease (HCC) 01/09/2023 Coronary artery disease of [place] artery of [place] heart with stable angina pectoris 01/09/2023 Essential hypertension 01/09/2023 Hyperlipidemia 01/09/2023 Hypomagnesemia 01/16/2023 Obesity 01/11/2023 Pleural effusion 01/17/2023 Postoperative atrial fibrillation (HCC) 01/21/2023 Pure hyperglyceridemia 01/09/2023 Type 2 diabetes mellitus without complication (HCC) 01/09/2023 Unspecified macular degeneration 01/09/2023 Acute bronchitis [...] vocal cord (HCC) 02/01/2025 Onychomycosis 05/18/2025 Other fpc (current) drug therapy 05/18/2025 Overweight 05/18/2025 Peripheral venous insufficiency 05/18/2025 Primary localized osteoarthrosis of ankle and foot 05/18/2025 Resolved Ambulatory Problems Diagnosis Date Noted No [...] 500 mg in the evening.Take with meals. metoprolol tartrate (Lopressor) 25 MG [...] to visit. Objective Last Recorded Vitals Vitals: 05/20/25 1417 BP: 106/66 Pulse: 79 ENT Physical Exam Constitutional Appearance: patient appears well-developed and well-nourished, Communication/Voice: voice quality is hoarse; Oral Cavity/Oropharynx OC/OP comments: OC/OP/IDL - no mass or ulcer. Poor IDL Neck Neck comments: Supple, FROM, No LAD [...] folds, arytenoids and surrounding mucosal surfaces shows no gross residual tumor. Some ant commissure mucosal irregularity persists. 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 RADIATION SUMMARY: DATES OF TREATMENT: 03-11-2025 to 05-04-2025 AREA TREATED: Larynx Adalberto Neck DELIVERED DOSE: Area: Larynx Adalberto Neck with daily CBCT Imaging 7000cGy in 35 fractions, 3 Rapid Arc VMAT Yuan, X06 TOTAL: 7000cGy in 35 fractions ELAPSED TIME: 54 days. INTERVAL HISTORY: Patient states he is feeling better. Swallowing improved. Still taste altered. Still with hoarseness intermittently improved. Fatigue improving. ALLERGIES No Known Allergies MEDICATIONS: diphenhydrAMINE 12.5 mg/5 mL lidocaine visc 2% MAALOX 200-200-20 mg/5 mL nystatin prednisoLONE 15 mg/5 mL oral liquid 1:1:1:1:1 (CPD) Take 10 mL by mouth every 6 hours as needed. Swish and swallow naproxen sodium (ALEVE) 220 mg tablet Take [...] Take 2 tablets by mouth once daily. REVIEW OF SYSTEMS: GENERAL: Negative for weight loss, fevers, chills, or night sweats. HEENT: Negative for sudden vision or hearing changes. NECK: Negative for masses in the neck. RESPIRATORY: Negative for cough or shortness of breath. CARDIAC: Negative for chest pain, palpitations, murmurs, or syncopal episodes. GI: Negative for nausea, vomiting, diarrhea, constipation, blood per rectum, or melena. : Negative for dysuria, hematuria, urgency, frequency or incontinence. MUSCULOSKELETAL: Negative for limitations in movement, pain, or swelling. NEURO: Negative for dizziness, headache, weakness or numbness. HEMATOLOGIC: Negative for bleeding or easy bruising. SKIN: Negative for rashes or other skin changes. PHYSICAL EXAM: 05/04/2025 09:42 Vitals Temp 36.6 C (97.8 F) Pulse 72 Resp 16 BP 129/77 SpO2 98 % KPS: 90 General Appearance: Alert and oriented. No acute distress. HEENT: NCAT. Sclera anicteric. PERRL. EOMI. Oral cavity and oropharynx: lips and gums normal, oral and pharyngeal mucosa moist, palate elevatesnormally, tongue mobile and without palpable lesions, tonsils without masses Indirect mirror exam without obvious tumor, some erythema notable Neck: Normal ROM. No palpable cervical or supraclavicular adenopathy. Neck mobility: Good Tongue mobility: Good Skin: No rashes noted Lymphatics: No palpable lymphadenopathy. TOXICITY ASSESSMENT: Dysphagia: Grade 2 - Symptomatic and altered eating/swallowing Mucositis: Grade 1 - Asymptomatic or mild symtoms; intervention not indicated Radiation Dermatitis: Grade 0 - No symptoms Trismus: Grade 0 - No symptoms Voice Changes: Grade 2 - Moderate or persistent change from normal voice; still understandable Xerostomia: Grade 1 - Symptomatic (dry or thick saliva) without significant dietary alteration; unstimulated saliva flow >2ml/min Anorexia: Grade 0-No symptoms Fatigue: Grade 1 - Fatigue relieved by rest Laryngeal Edema: Grade 0 - No Symptoms Nausea: Grade 0 - No Symptoms Vomiting: Grade 0 - No Symptoms Pain: Grade 1 - Mild pain Skin Fibrosis: Grade 0- No symptoms Taste Changes: Grade 1 - Altered taste but no change in diet Weight Loss: Grade 0 - No weight loss Dehydration: No ASSESSMENT/PLAN: 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 Doing well after recent completion of radiation with combined chemotherapy. Improvement in dysphagia. Improvement in fatigue. Continue conservative measures including nutritional supplements. Anticipate restaging with PET scan 3 months from completion. Patient will need further follow-up with his ENT Dr. Jarquin. Signed by: Evy Grant MD cc:Dr. Jarquin. MD Dr. 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 COURSE: definitive and concurrent chemotherapy Area Treated: Larynx, bilateral neck Current dose: 7000 Gy in 35 fx Planned dose: 7000 Gy in 35 fx SUBJECTIVE: No new issues. Voice comes and goes. Dysphagia stable. PHYSICAL EXAM: 05/04/25 Weight 87.2 kg (192 lb 3.9 oz) Height 173 cm (5' 8.11 ) BSA 2.05 BMI 29.14 Temp 36.6 C (97.8 F) Pulse 72 Resp 16 BP 129/77 SpO2 98 % KPS: 100 General Appearance: Alert and oriented. No acute distress. Radiation dermatitis: No Mucositis: No Oral cavity and oropharynx: lips and gums normal, oral and pharyngeal mucosa moist, palate elevatesnormally, tongue mobile and without palpable lesions, tonsils without masses Neck: Normal ROM. No palpable cervical or supraclavicular adenopathy. IMAGING/LAB RESULTS: Hemoglobin (g/dL) Date Value 05/11/2025 12.2 Hematocrit (%) Date Value 05/11/2025 35.2 WBC (k/uL) Date Value 05/11/2025 4.45 Platelet Count (k/uL) Date Value 05/11/2025 135 TOXICITY ASSESSMENT (CTCv4): Dysphagia:grade 1 Mucositis: grade 1 Radiation dermatitis: grade 1 Trismus: grade 0 - No symptoms Voice Changes:grade 2 - Moderate or persistent change from normal voice; still understandable Xerostomia: grade 0 - No symptoms Treatment chart checked: Yes Patient treatment site reviewed and verified:Yes Port films reviewed and current:Yes Medications started: None ASSESSMENT: Overall tolerance has been stable over the last several weeks. He finishes treatment today. Follow-up care discussed. Evy Grant MD documented in this encounterWood County Hospital09-08-2025 Instructions* Patient Instructions* Chandan Burgos MD - 05/04/2025 10:23 AM EDT D/C Cisplatin Labs weekly x 2 RTC in 2 weeks with CHRISTIANNE to review toxicity and recovery. Magic mouthwash for pain relief. We discussed your current health status and recovery from radiation therapy: - Your blood counts are improving, with your total white count at 1.98, which is likely out of the danger zone. Your anemia and platelet levels are also improving. I expect your counts to fully recover in about two weeks. - Radiation side effects, including fatigue and throat discomfort, should begin to subside in approximately two weeks. However, your voice may not return to its previous baseline but should improve over time. We discussed your throat discomfort and difficulty swallowing: - I have prescribed Magic Mouthwash to help relieve your throat pain. [facility]. - You may also continue using baking soda rinses if they provide relief. We discussed vaccinations: - I recommend waiting about two weeks for your immune system to recover before receiving the COVID-19 vaccine. You may also consider the flu vaccine at that time. We discussed follow-up care: - I would like you to have labs drawn once a week for the next couple of weeks to monitor your blood counts and ensure continued improvement. Please avoid crowded places to reduce your risk of infection while your immune system is still recovering. Let me know if you experience any worsening symptoms or have additional concerns. documented in this encounterWood County Hospital09-08-2025 History of Present illness Narrative* Chandan Burgos MD - 05/04/2025 10:00 AM EDT Images from the original note were not included. NAME: Chad Mckeon [facility] NO.: [id number] DATE OF SERVICE: May 04, 2025 (Cassidy) Some elements in this clinic note that are critical to medical decision making have been carefully reviewed and included from a prior clinic note dated: April 29, 2025 (Ildefonso) Referring Provider: Additional Clinicians involved in Chad Mckeon's care: Elaine Jarquin DIAGNOSIS: 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 CASE SUMMARY / ASSESSMENT: 84 year old man with vocal cord squamous cell cancer presents to start concurrent chemotherapy withradiation for organ preservation. He underwent bronchoscopy 02/24/25 to further evaluate a mediastinal/right paratracheal node found on PET scan. Pathology was negative for malignant cells. Started definitive treatment with concurrent chemotherapy and radiation March 11, 2025. SUMMARIZED PLAN OF CARE: D/C Cisplatin Labs weekly x 2 RTC in 2 weeks with CHRISTIANNE to review toxicity and recovery. Magic mouthwash for pain relief. AI Assisted A/P: 1. 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 Encounter for antineoplastic radiation therapy (Z51.0) 3. Dysphonia (R49.0) 4. Pain in throat (R07.0) Completed radiation therapy today for left vocal cord carcinoma. Experiencing expected post-radiation side effects, including dysphonia and odynophagia. - Advised that side effects should begin to improve over the next 2 weeks, though voice may not return to baseline. - Start Magic Mouthwash for symptomatic relief of throat pain. 5. Chemotherapy-induced neutropenia (D70.1) 6. Thrombocytopenia (D69.6) 7. Antineoplastic chemotherapy induced pancytopenia (D61.810) 8. Immunocompromised state (HCC) (D84.9) 9. 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 use of immunosuppressive drug (Z79.60) Neutropenia improving, with total white count now 1.98; anemia and thrombocytopenia also showing improvement. Patient remains immunocompromised. - Order weekly labs for the next couple of weeks to monitor blood counts. - Advised to avoid crowded places to reduce infection risk. - Recommended waiting approximately 2 weeks before receiving COVID and flu vaccines to allow for further immune recovery. ____ CASE HISTORY: Reverse Chronological Order 03/11/2025 - 05/05/2025: Cisplatin held for neutropenia - 04/01/2025 - Radiation continued alone 02/24/2025 Bronchoscopy Pathology of FNA transbronchial LN [...] metabolically active cervical lymphadenopathy. * Intensely metabolically activeright paratracheal node (SUV max 8.4), presumed metastatic. [...] 5 mm left apical nodule without increased metabolicactivity, however likely below PET resolution. Continue CT surveillance as warranted clinically. 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 (01/07/2025) Laryngoscopic Examination: Left true vocal cord mass with fixation. ____ HPI: Updated Visit, May 04, 2025: Patient with a history of cancer, currently managed with chemotherapy and radiation, presents with worsening symptoms. He reports increasing fatigue and difficulty swallowing, describing a burning sensation in his throat when eating. These symptoms have progressively worsened since discontinuing chemotherapy and completing radiation therapy today. He notes that his voice has changed and inquires if it will improve. He also mentions a decrease in appetite, stating that he was unable to eat pizza and lasagna due tothroat pain. He has been using a baking soda rinse for relief but has not yet tried Magic Mouthwash. Recent lab results show a total white blood cell count of 1.98 x 10^9/L, indicating improvement. Hemoglobin and platelet counts are also recovering. (Today) CBC: - WBC: 1.98 x10^3/ L (improved from prior level, still low) - Hemoglobin: Less anemic (exact value not provided) - Platelets: Improving (exact value not provided) Updated Visit, April 29, 2025: Patient is currently undergoing radiation therapy and has completed four cycles of chemotherapy. Hehas four more days of radiation therapy remaining, with the last session scheduled for next Sunday. He reports persistent fatigue and severe hot flashes, which he has experienced since before starting treatment. He denies any new numbness or tingling, diarrhea, or constipation. He is eating and swallowing well but notes a perceived weakness in the epiglottis. He is drinking water regularly. Recent labs show hemoglobin at 11 g/dL, with kidney function, sodium, and potassium levels within normal limits. His immune system is noted to be low, and he has been taking prescribed antibiotics. Updated Visit, April 22, 2025: Patient with a history of cancer, currently undergoing radiation therapy, has completed four cyclesof cisplatin chemotherapy. On Sunday, he experienced a sudden loss of voice, which persisted through the weekend. He reports ongoing fatigue and dry lips and mouth. He denies nausea, vomiting, dizziness, or lightheadedness. Heis able to eat and swallow without difficulty and is urinating normally. He is unsure if he is drinking enough water. Recent lab results show a further decrease in blood counts. Updated Visit, April 15, 2025: Recent labs show worsening cytopenias, with leukopenia and thrombocytopenia. Patient reports significant fatigue, noting that after routine activities such as getting toenails cut, grocery shopping, and attending radiation therapy, he is wiped out and ready for bed by 20:00. He denies nausea, vomiting, or increased shortness of breath and states that his weight has remained stable over the past week. He is able to eat but tries to maintain intake. He drinks one cup of coffee in the morning and water for the rest of the day. He describes his bowel movements as in the middle, indicating neither diarrhea nor constipation. He also reports experiencing hoarseness, noting that two days ago his voice was pretty decent, but yesterday he could hardly talk above a whisper. He feels that his voice is improving today. Last week, he received hydration and magnesium supplementation but did not notice significant improvement in symptoms. Updated Visit, April 08, 2025: Chad is [...] his ability to drive, stating he can onlydrive in emergencies. His partner, whom he refers [...] old male. 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 Ears/Nose/Mouth/Throat: (+) odynophagia, (+) throat burning pain, (+) dysphonia, (+)hoarseness ___ ECOG PERFORMANCE STATUS: 1 PHYSICAL EXAMINATION: Vitals: BP 129/77 Pulse 72 Temp (Src) 97.8 (Temporal) Resp 16 Ht 5' 8.11 (1.73m) Wt 192 lb 3.9 oz (87.2kg) SpO2 98% BMI 29.14 kg/(m^2). Body surface area is 2.05 meters squared. Exam limited to gross visualization [...] skin without rash, lesions, wounds or petechiae. ____ ALLERGIES: ALLERGIES No Known Allergies MEDICATIONS: naproxen [...] Take 2 tablets by mouth once daily. diphenhydrAMINE 12.5 mg/5 mL lidocaine visc 2% MAALOX 200-200-20 mg/5 mL nystatin prednisoLONE 15 mg/5 mL oral liquid 1:1:1:1:1 (CPD) Take 10 mL by mouth every 6 hours as needed for up to 24 days. Swish and swallow ____ LABORATORY VALUES: WBC (k/uL) Date Value 05/04/2025 1.98 (L) RBC (m/uL) Date Value 05/04/2025 3.20 (L) Hemoglobin (g/dL) Date Value 05/04/2025 11.3 (L) Hematocrit (%) Date Value 05/04/2025 32.0 (L) MCV (fL) Date Value 05/04/2025 100.0 MCH (pg) Date Value 05/04/2025 35.3 (H) MCHC (g/dL) Date Value 05/04/2025 35.3 RDW-CV (%) Date Value 05/04/2025 22.4 (H) Platelet Count (k/uL) Date Value 05/04/2025 139 (L) MPV (fL) Date Value 05/04/2025 8.3 (L) Glucose (mg/dL) Date Value 04/29/2025 312 (H) BUN (mg/dL) Date Value 04/29/2025 20 Creatinine (mg/dL) Date Value 04/29/2025 1.09 Sodium (mmol/L) Date Value 04/29/2025 138 Potassium (mmol/L) Date Value 04/29/2025 4.3 Chloride (mmol/L) Date Value 04/29/2025 100 CO2 (mmol/L) Date Value 04/29/2025 27 Protein, Total (g/dL) Date Value 04/29/2025 6.3 Albumin (g/dL) Date Value 04/29/2025 4.0 Calcium, Total (mg/dL) Date Value 04/29/2025 9.4 Alkaline Phosphatase (U/L) Date Value 04/29/2025 112 Bilirubin, Total (mg/dL) Date Value 04/29/2025 0.6 AST (U/L) Date Value 04/29/2025 20 ALT (U/L) Date Value 04/29/2025 19 ____ DIAGNOSIS: (C32.0) 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 I spent a total of 30 minutes on the date of service which included preparing to see the patient, [id number] patient care, completing clinical documentation, obtaining and/or reviewing separately obtained history, performing a medically appropriate examination, counseling and educating the patient/family/caregiver, ordering medications, tests, or procedures, independently interpreting results (not separately reported), communicating results to the patient/family/caregiver, and care coordination (not separately reported). Chandan Burgos MD, CPE Hematology and Oncology Services Provided at: [place], [place] CC: Evy [facility]Aud[facility] Clint Juarez MD [address] [facility] [id number] documented in this encounterWood County Hospital09-08-2025 NoteUniversity Hospitals [facility]09-08-2025 NoteUniversity Hospitals Tripoint [facility] Center09-03-2025 History of Present illness Narrative* Merline Fregoso APRN.CONTROL PANEL ASSEMBLER - 04/29/2025 11:00 AM EDT Images from the original note were not included. 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 CASE SUMMARY / ASSESSMENT: 84 year old man with vocal cord squamous cell cancer presents to start concurrent chemotherapy withradiation for organ preservation. He underwent bronchoscopy 02/24/25 to further evaluate a mediastinal/right paratracheal node found on PET scan. Pathology was negative for malignant cells. Started definitive treatment with concurrent chemotherapy and radiation March 11, 2025. SUMMARIZED PLAN OF CARE: Will stop weekly cisplatin - due to low platelet and ANC, and increased fatigue and weakness. Continue Weekly labs RTC in one week for labs clinician treatment. AI Assisted A/P: 1. 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 Head and neck cancer (HCC) (C76.0) 3. Dysphonia (R49.0) Completed 4 cycles of chemotherapy; no further chemotherapy planned. Four radiation treatments remain, with final session scheduled for next Sunday. Patient reports persistent fatigue and hot flashes, but is able to eat and swallow without difficulty, though some weakness in the epiglottic functionis noted. - Continue radiation therapy as scheduled; accompany patient to today's session. - Follow-up with Dr. Grant next Sunday after completion of radiation therapy. 5. Chemotherapy-induced neutropenia (D70.1) 6. Thrombocytopenia (D69.6) Immune system remains suppressed, but patient has completed prescribed antibiotics. Hemoglobin is stable at 11 g/dL; no new paresthesia, diarrhea, or constipation reported. - Monitor lab values and clinical status. 7. Chemotherapy-induced fatigue (R53.83) Fatigue persists despite cessation of chemotherapy. - Monitor energy levels and provide supportive care as needed. ____ CASE HISTORY: Reverse Chronological Order 03/11/2025 [...] metabolically active cervical lymphadenopathy. * Intensely metabolically activeright paratracheal node (SUV max 8.4), presumed metastatic. [...] 5 mm left apical nodule without increased metabolicactivity, however likely below PET resolution. Continue CT surveillance as warranted clinically. 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 (01/07/2025) Laryngoscopic Examination: Left true vocal cord mass with fixation. ____ HPI: Updated Visit, April,: Patient is currently undergoing radiation therapy and has completed four cycles of chemotherapy. Hehas four more days of radiation therapy remaining, with the last session scheduled for next Sunday. He reports persistent fatigue and severe hot flashes, which he has experienced since before starting treatment. He denies any new numbness or tingling, diarrhea, or constipation. He is eating and swallowing well but notes a perceived weakness in the epiglottis. He is drinking water regularly. Recent labs show hemoglobin at 11 g/dL, with kidney function, sodium, and potassium levels within normal limits. His immune system is noted to be low, and he has been taking prescribed antibiotics. Updated Visit, April 22, 2025: Patient with a history of cancer, currently undergoing radiation therapy, has completed four cyclesof cisplatin chemotherapy. On Sunday, he experienced a sudden loss of voice, which persisted through the weekend. He reports ongoing fatigue and dry lips and mouth. He denies nausea, vomiting, dizziness, or lightheadedness. Heis able to eat and swallow without difficulty and is urinating normally. He is unsure if he is drinking enough water. Recent lab results show a further decrease in blood counts. Updated Visit, April 15, 2025: Recent labs show worsening cytopenias, with leukopenia and thrombocytopenia. Patient reports significant fatigue, noting that after routine activities such as getting toenails cut, grocery shopping, and attending radiation therapy, he is wiped out and ready for bed by 20:00. He denies nausea, vomiting, or increased shortness of breath and states that his weight has remained stable over the past week. He is able to eat but tries to maintain intake. He drinks one cup of coffee in the morning and water for the rest of the day. He describes his bowel movements as in the middle, indicating neither diarrhea nor constipation. He also reports experiencing hoarseness, noting that two days ago his voice was pretty decent, but yesterday he could hardly talk above a whisper. He feels that his voice is improving today. Last week, he received hydration and magnesium supplementation but did not notice significant improvement in symptoms. Updated Visit, April 08, 2025: Chad is [...] his ability to drive, stating he can onlydrive in emergencies. His partner, whom he refers to as his other half, assists with driving. They are not to avoid affecting her pension benefits. (Today) Laboratory Tests: - Blood glucose: Elevated - Kidney function: Within normal limits Updated Visit, March 18, 2025: Mr. Mckoen returns to continue concurrent weekly Cisplatin with [...] old male. 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 Constitutional: (+) fatigue Endocrine: (+) hot flashes Gastrointestinal: (-) diarrhea, (-) constipation, (-) dysphagia Neurological: (-) numbness, (-) tingling ___ ECOG PERFORMANCE STATUS: 1 PHYSICAL EXAMINATION: Vitals: BP 110/63 Pulse 81 Temp (Src) 97.9 (Temporal) Resp 18 Ht 5' 8.11 (1.73m) Wt 194 lb 0.1 oz (88.0kg) SpO2 97% BMI 29.40 kg/(m^2). Body surface area is 2.06 meters [...] skin without rash, lesions, wounds or petechiae. ____ ALLERGIES: ALLERGIES No Known Allergies MEDICATIONS: ciprofloxacin HCl (CIPRO) 500 mg tablet Take 1 tablet by mouth two times a day for 7 days. naproxen sodium (ALEVE) 220 mg tablet Take [...] Take 2 tablets by mouth once daily. ____ LABORATORY VALUES: WBC (k/uL) Date Value 04/29/2025 1.40 (L) RBC (m/uL) Date Value 04/29/2025 3.14 (L) Hemoglobin (g/dL) Date Value 04/29/2025 11.0 (L) Hematocrit (%) Date Value 04/29/2025 30.8 (L) MCV (fL) Date Value 04/29/2025 98.1 MCH (pg) Date Value 04/29/2025 35.0 (H) MCHC (g/dL) Date Value 04/29/2025 35.7 RDW-CV (%) Date Value 04/29/2025 21.8 (H) Platelet Count (k/uL) Date Value 04/29/2025 110 (L) MPV (fL) Date Value 04/29/2025 8.5 (L) Glucose (mg/dL) Date Value 04/29/2025 312 (H) BUN (mg/dL) Date Value 04/29/2025 20 Creatinine (mg/dL) Date Value 04/29/2025 1.09 Sodium (mmol/L) Date Value 04/29/2025 138 Potassium (mmol/L) Date Value 04/29/2025 4.3 Chloride (mmol/L) Date Value 04/29/2025 100 CO2 (mmol/L) Date Value 04/29/2025 27 Protein, Total (g/dL) Date Value 04/29/2025 6.3 Albumin (g/dL) Date Value 04/29/2025 4.0 Calcium, Total (mg/dL) Date Value 04/29/2025 9.4 Alkaline Phosphatase (U/L) Date Value 04/29/2025 112 Bilirubin, Total (mg/dL) Date Value 04/29/2025 0.6 AST (U/L) Date Value 04/29/2025 20 ALT (U/L) Date Value 04/29/2025 19 ____ DIAGNOSIS: (C32.0) 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 I spent a total of 20 minutes on the date of service which included preparing to see the patient, [id number] patient care, completing clinical documentation, obtaining and/or reviewing separately obtained history, performing a medically appropriate examination, counseling and educating the patient/family/caregiver, ordering medications, tests, or procedures, independently interpreting results (not separately reported), communicating results to the patient/family/caregiver, and care coordination (not separately reported). Merline Fregoso APRN, PUBLIC HEALTH DOCTOR-C, OCN Hematology and Oncology Services Provided at: [place], [place] CC: Evy Grant [facility]als[facility] Juarez MD [address] [place] [address] documented in this encounterWood County Hospital09-03-2025 NoteUniversity Hospitals Tripoint [facility] Center09-02-2025 History of Present illness Narrative* Evy Grant MD - 04/28/2025 2:29 PM EDT Radiation Oncology - On Treatment Review (OTR) Note PATIENT NAME: Chad Mckeon PATIENT DIAGNOSIS: Squamous cell carcinoma involving the left vocal cord with extension into the false cordand fixation of the vocal cord, T3 N0 M0. COURSE: definitive and concurrent chemotherapy Area Treated: Larynx, bilateral neck Current dose: 6200 Gy in 31 fx Planned dose: 7000 Gy in 35 fx SUBJECTIVE: No new issues. Sore throat and hoarseness stable. Mild skin irritation. Denies fever. PHYSICAL EXAM: 04/28/25 1428 BP: 109/73 Pulse: 104 Resp: 16 Temp: 36.4 C (97.6 F) SpO2: 98% Weight: 87.7 kg (193 lb 5.5 oz) KPS: 100 General Appearance: Alert and oriented. No acute distress. Radiation dermatitis: No Mucositis: No Oral cavity and oropharynx: lips and gums normal, oral and pharyngeal mucosa moist, palate elevatesnormally, tongue mobile and without palpable lesions, tonsils without masses Neck: Normal ROM. No palpable cervical or supraclavicular adenopathy. IMAGING/LAB RESULTS: Hemoglobin (g/dL) Date Value 04/22/2025 10.9 Hematocrit (%) Date Value 04/22/2025 30.8 WBC (k/uL) Date Value 04/22/2025 1.16 Platelet Count (k/uL) Date Value 04/22/2025 41 TOXICITY ASSESSMENT (CTCv4): Dysphagia:grade 1 Mucositis: grade 1 Radiation dermatitis: grade 1 Trismus: grade 0 - No symptoms Voice Changes:grade 2 - Moderate or persistent change from normal voice; still understandable Xerostomia: grade 0 - No symptoms Treatment chart checked: Yes Patient treatment site reviewed and verified:Yes Port films reviewed and current:Yes Medications started: None ASSESSMENT: Chemotherapy stopped due to pancytopenia. Otherwise tolerates radiation fairly good. Plan to continue as previously outlined. Discussed twice daily treatment to finish this week patient unable to come back and forth on any given day. Will therefore finish on Sunday. Evy Grant MD documented in this encounterWood County Hospital09-02-2025 NoteUniversity Hospitals Tripoint [facility] Center08-27-2025 NoteUniversity Hospitals [facility]08-27-2025 History of Present illness Narrative* Trish Gillis RN - 04/22/2025 2:06 PM EDT Confirmed with pharmacy that patient has picked up his Rx for Cipro and he is aware to start today Trish Gillis RN * Trish Gillis RN - 04/22/2025 11:27 AM EDT Awa Fregoso APRN.CNP aware of lab mag 1.6 orders to proceed with IV mag as planned Trish Gillis RN * Trish Gillis RN - 04/22/2025 11:05 AM EDT Orders per Awa Fregoso APRN.CNP to reinforce patient education regarding Cipro and assist him by picking up his Rx when ready. Message sent to Sneha Chisholm pharmacist in retail to notify Trish Gillis RN documented in this encounterWood County Hospital08-27-2025 NoteHNO ID: [id number] Author: TRISH GILLIS RN Service: ? Author Type: Registered Nurse Type: Progress Notes Filed: 04/22/2025 12:41 Note Text: Awa Fregoso APRN.CNP aware of lab mag 1.6 orders to proceed with IV mag as planned Trish Gillis RNUniversity Hospitals Tripoint Medical Center08-27-2025 NoteUniversity Hospitals Tripoint [facility] Center08-27-2025 History of Present illness Narrative* Merline Fregoso APRN.CNP - 04/22/2025 10:00 AM EDT Images from the original note were not included. 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 CASE SUMMARY / ASSESSMENT: 84 year old man with vocal cord squamous cell cancer presents to start concurrent chemotherapy withradiation for organ preservation. He underwent bronchoscopy 02/24/25 to further evaluate a mediastinal/right paratracheal node found on PET scan. Pathology was negative for malignant cells. Started definitive treatment with concurrent chemotherapy and radiation March 11, 2025. SUMMARIZED PLAN OF CARE: Will stop weekly cisplatin - due to low platelet and ANC, and increased fatigue and weakness. Hydration today with magnesium Continue Weekly labs RTC in one week for labs clinician treatment. AI Assisted A/P: 1. 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 Head and neck cancer (HCC) (C76.0) 3. Encounter for antineoplastic chemotherapy (Z51.11) 4. Dysphonia (R49.0) Patient has completed 4 cycles of cisplatin chemotherapy for left vocal cord cancer; currently experiencing dysphonia and persistent fatigue. - Hold further chemotherapy indefinitely; discussed with Dr. Alvarado. - Continue radiation therapy as directed by Dr. Mcdonnell. 5. Chemotherapy-induced neutropenia (D70.1) 6. Thrombocytopenia (D69.6) Worsening neutropenia and thrombocytopenia with further decline in counts on most recent labs. - Hold further chemotherapy indefinitely. 7. Chemotherapy-induced fatigue (R53.83) Fatigue is persistent and unchanged. - Hold further chemotherapy. 8. Hypomagnesemia (E83.42) Recent labs indicate hypomagnesemia. - Repeat magnesium level today; replete as indicated. 9. Dehydration (E86.0) Patient reports dry lips and mouth; unclear if oral intake is adequate. - Administer IV hydration today. ____ CASE HISTORY: Reverse Chronological Order 03/11/2025 [...] metabolically active cervical lymphadenopathy. * Intensely metabolically activeright paratracheal node (SUV max 8.4), presumed metastatic. [...] 5 mm left apical nodule without increased metabolicactivity, however likely below PET resolution. Continue CT surveillance as warranted clinically. 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 (01/07/2025) Laryngoscopic Examination: Left true vocal cord mass with fixation. ____ HPI: Updated Visit, April 22, 2025: Patient with a history of cancer, currently undergoing radiation therapy, has completed four cyclesof cisplatin chemotherapy. On Sunday, he experienced a sudden loss of voice, which persisted through the weekend. He reports ongoing fatigue and dry lips and mouth. He denies nausea, vomiting, dizziness, or lightheadedness. Heis able to eat and swallow without difficulty and is urinating normally. He is unsure if he is drinking enough water. Recent lab results show a further decrease in blood counts. Updated Visit, April 15, 2025: Recent labs show worsening cytopenias, with leukopenia and thrombocytopenia. Patient reports significant fatigue, noting that after routine activities such as getting toenails cut, grocery shopping, and attending radiation therapy, he is wiped out and ready for bed by 20:00. He denies nausea, vomiting, or increased shortness of breath and states that his weight has remained stable over the past week. He is able to eat but tries to maintain intake. He drinks one cup of coffee in the morning and water for the rest of the day. He describes his bowel movements as in the middle, indicating neither diarrhea nor constipation. He also reports experiencing hoarseness, noting that two days ago his voice was pretty decent, but yesterday he could hardly talk above a whisper. He feels that his voice is improving today. Last week, he received hydration and magnesium supplementation but did not notice significant improvement in symptoms. Updated Visit, April 08, 2025: Chad is [...] his ability to drive, stating he can onlydrive in emergencies. His partner, whom he refers [...] old male. 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 Constitutional: (+) fatigue Eyes: (+) visual flashes Ears/Nose/Mouth/Throat: (+) odynophagia, (+) dry mouth, (+) hoarseness, (-) dysphagia Gastrointestinal: (-) nausea, (-) vomiting Skin: (+) dry lips Neurological: (-) dizziness, (-) lightheadedness ___ ECOG PERFORMANCE STATUS: 1 PHYSICAL EXAMINATION: Vitals: BP 124/75 Pulse 104 Temp (Src) 97.6 (Temporal) Resp 16 Ht 5' 8.11 (1.73m) Wt 192lb 14.4 oz (87.5kg) SpO2 98% BMI 29.24 kg/(m^2). Body surface area is 2.05 meters squared. Exam limited to gross visualization [...] skin without rash, lesions, wounds or petechiae. ____ ALLERGIES: ALLERGIES No Known Allergies MEDICATIONS: naproxen [...] Take 2 tablets by mouth once daily. ciprofloxacin HCl (CIPRO) 500 mg tablet Take 1 tablet by mouth two times a day for 7 days. ____ LABORATORY VALUES: WBC (k/uL) Date Value 04/22/2025 1.16 (L) RBC (m/uL) Date Value 04/22/2025 3.26 (L) Hemoglobin (g/dL) Date Value 04/22/2025 10.9 (L) Hematocrit (%) Date Value 04/22/2025 30.8 (L) MCV (fL) Date Value 04/22/2025 94.5 MCH (pg) Date Value 04/22/2025 33.4 MCHC (g/dL) Date Value 04/22/2025 35.4 RDW-CV (%) Date Value 04/22/2025 19.3 (H) Platelet Count (k/uL) Date Value 04/22/2025 41 (L) MPV (fL) Date Value 04/22/2025 9.3 Glucose (mg/dL) Date Value 04/22/2025 301 (H) BUN (mg/dL) Date Value 04/22/2025 28 (H) Creatinine (mg/dL) Date Value 04/22/2025 1.05 Sodium (mmol/L) Date Value 04/22/2025 137 Potassium (mmol/L) Date Value 04/22/2025 4.5 Chloride (mmol/L) Date Value 04/22/2025 98 CO2 (mmol/L) Date Value 04/22/2025 27 Protein, Total (g/dL) Date Value 04/22/2025 6.4 Albumin (g/dL) Date Value 04/22/2025 4.1 Calcium, Total (mg/dL) Date Value 04/22/2025 10.0 Alkaline Phosphatase (U/L) Date Value 04/22/2025 131 (H) Bilirubin, Total (mg/dL) Date Value 04/22/2025 0.9 AST (U/L) Date Value 04/22/2025 16 ALT (U/L) Date Value 04/22/2025 12 ____ DIAGNOSIS: (C32.0) 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 I spent a total of 40minutes on the date of service which included preparing to see the patient, [id number] patient care, completing clinical documentation, obtaining and/or reviewing separately obtained history, performing a medically appropriate examination, counseling and educating the patient/family/caregiver, ordering medications, tests, or procedures, independently interpreting results (not separately reported), communicating results to the patient/family/caregiver, and care coordination (not separately reported). 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 COURSE: definitive and concurrent chemotherapy Area Treated: Larynx, bilateral neck Current dose: 4800 Gy in 24 fx Planned dose: 7000 Gy in 35 fx SUBJECTIVE: No new issues. Able to get her/go to [place] over the weekend. No fever. Moist he feelshe is a little more hoarse. Dysphagia stable. PHYSICAL EXAM: 04/20/25 1318 BP: 128/79 Pulse: 89 Resp: 16 Temp: 36.4 C (97.6 F) SpO2: 98% Weight: 87.7 kg (193 lb 5.5 oz) KPS: 100 General Appearance: Alert and oriented. No acute distress. Radiation dermatitis: No Mucositis: No Oral cavity and oropharynx: lips and gums normal, oral and pharyngeal mucosa moist, palate elevatesnormally, tongue mobile and without palpable lesions, tonsils without masses Neck: Normal ROM. No palpable cervical or supraclavicular adenopathy. IMAGING/LAB RESULTS: Hemoglobin (g/dL) Date Value 04/20/2025 11.5 Hematocrit (%) Date Value 04/20/2025 32.2 WBC (k/uL) Date Value 04/20/2025 1.35 Platelet Count (k/uL) Date Value 04/20/2025 33 TOXICITY ASSESSMENT (CTCv4): Dysphagia:grade 0 - No [...] reviewed and current:Yes Medications started: None ASSESSMENT: Still with pancytopenia. However given stabilization recommend proceeding with radiation. Will discuss further with medical oncology whether chemotherapy will be held another week. Evy Grant MD documented in this encounterWood County Hospital08-20-2025 NoteHNO ID: [id number] Author: ABI VAUGHN RN Service: ? Author Type: Registered Nurse Type: Progress Notes Filed: 04/15/2025 15:42 Note Text: Treatment held today d/t pancytopenia. Radiation also on hold for this week. Pt to get 1L NS.[facility]08-20-2025 History of Present illness Narrative* Abi Vaughn RN - 04/15/2025 10:45 AM EDT Treatment held today d/t pancytopenia. Radiation also on hold for this week. Pt to get 1L NS. documented in this encounterWood County Hospital08-20-2025 History of Present illness Narrative* Merline Fregoso APRN.CNP - 04/15/2025 10:30 AM EDT Images from the original note were not included. 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 CASE SUMMARY / ASSESSMENT: 84 year old man with vocal cord squamous cell cancer presents to start concurrent chemotherapy withradiation for organ preservation. He underwent bronchoscopy 02/24/25 to further evaluate a mediastinal/right paratracheal node found on PET scan. Pathology was negative for malignant cells. Started definitive treatment with concurrent chemotherapy and radiation March 11, 2025. SUMMARIZED PLAN OF CARE: Hold day 29 today- due to low platelet and ANC, and increased fatigue and weakness. Hydration today with magnesium Weekly Cisplatin 40 mg/m2 with radiation today Spoke with Dr. Grant and will hold radiation the rest of the week. Continue Weekly Cisplatin with labs weekly prior RTC in one week for reconsideration of C1D29 labs clinician treatment AI Assisted A/P: 1. 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 Head and neck cancer (HCC) (C76.0) 3. Dysphonia (R49.0) Currently undergoing daily radiation therapy; experiencing fatigue and intermittent dysphonia. - Hold radiation therapy for the remainder of the week. - Resume radiation therapy on Sunday. - Follow-up on Sunday to reassess condition. 4. Chemotherapy-induced neutropenia (D70.1) 5. Thrombocytopenia (D69.6) Worsening neutropenia and thrombocytopenia compared to last week. - Hold chemotherapy for the remainder of the week. - Resume chemotherapy on Sunday. 6. Chemotherapy-induced fatigue (R53.83) Fatigue is the most significant side effect currently impacting daily activities. - Provide IV hydration and steroids today to help alleviate fatigue. 7. Hypomagnesemia (E83.42) Magnesium levels were not drawn today. - Order magnesium level today. 8. Dehydration (E86.0) Hydration status is a concern due to ongoing treatment and fatigue. - Provide IV hydration today. ____ CASE HISTORY: Reverse Chronological Order 03/11/2025 [...] metabolically active cervical lymphadenopathy. * Intensely metabolically activeright paratracheal node (SUV max 8.4), presumed metastatic. [...] 5 mm left apical nodule without increased metabolicactivity, however likely below PET resolution. Continue CT surveillance as warranted clinically. 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 (01/07/2025) Laryngoscopic Examination: Left true vocal cord mass with fixation. ____ HPI: Updated Visit, April 15, 2025: Recent labs show worsening cytopenias, with leukopenia and thrombocytopenia. Patient reports significant fatigue, noting that after routine activities such as getting toenails cut, grocery shopping, and attending radiation therapy, he is wiped out and ready for bed by 20:00. He denies nausea, vomiting, or increased shortness of breath and states that his weight has remained stable over the past week. He is able to eat but tries to maintain intake. He drinks one cup of coffee in the morning and water for the rest of the day. He describes his bowel movements as in the middle, indicating neither diarrhea nor constipation. He also reports experiencing hoarseness, noting that two days ago his voice was pretty decent, but yesterday he could hardly talk above a whisper. He feels that his voice is improving today. Last week, he received hydration and magnesium supplementation but did not notice significant improvement in symptoms. Updated Visit, April 08, 2025: Chad is [...] his ability to drive, stating he can onlydrive in emergencies. His partner, whom he refers [...] vocal cord. He is having increased fatigue. Saturday he cut his grass for 1.5 hour [...] old male. 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 Constitutional: (+) fatigue Ears/Nose/Mouth/Throat: (+) hoarseness Respiratory: (-) shortness of breath Gastrointestinal: (+) constipation, (-) nausea, (-) vomiting ___ ECOG PERFORMANCE STATUS: 1 PHYSICAL EXAMINATION: Vitals: BP 119/73 Pulse 65 Temp (Src) 97.3 (Temporal) Resp 18 Ht 5' 8.11 (1.73m) Wt 194 lb 10.7 oz (88.3kg) SpO2 95% BMI 29.50 kg/(m^2). Body surface area is 2.06 meters [...] skin without rash, lesions, wounds or petechiae. ____ ALLERGIES: ALLERGIES No Known Allergies MEDICATIONS: naproxen sodium (ALEVE) 220 mg tablet^Take 220 mg by mouth two times a day with meals.^Disp: ^Rfl: ondansetron (ZOFRAN) 8 mg tablet^Take 1 tablet by mouth every 8 hours as needed for nausea/vomiting.^Disp: 90 tablet^Rfl: 1 prochlorperazine (COMPAZINE) 10 mg tablet^Take 1 tablet by mouth every 6 hours as needed.^Disp: 100tablet^Rfl: 1 aspirin, enteric coated (ASPIRIN, ENTERIC COATED) [...] 2 tablets by mouth once daily.^Disp: ^Rfl: ____ LABORATORY VALUES: WBC (k/uL) Date Value 04/15/2025 1.50 (L) RBC (m/uL) Date Value 04/15/2025 3.48 (L) Hemoglobin (g/dL) Date Value 04/15/2025 11.6 (L) Hematocrit (%) Date Value 04/15/2025 32.5 (L) MCV (fL) Date Value 04/15/2025 93.4 MCH (pg) Date Value 04/15/2025 33.3 MCHC (g/dL) Date Value 04/15/2025 35.7 RDW-CV (%) Date Value 04/15/2025 17.8 (H) Platelet Count (k/uL) Date Value 04/15/2025 31 (L) MPV (fL) Date Value 04/15/2025 9.2 Glucose (mg/dL) Date Value 04/15/2025 321 (H) BUN (mg/dL) Date Value 04/15/2025 28 (H) Creatinine (mg/dL) Date Value 04/15/2025 0.98 Sodium (mmol/L) Date Value 04/15/2025 135 (L) Potassium (mmol/L) Date Value 04/15/2025 5.0 Chloride (mmol/L) Date Value 04/15/2025 100 CO2 (mmol/L) Date Value 04/15/2025 26 Protein, Total (g/dL) Date Value 04/15/2025 6.3 Albumin (g/dL) Date Value 04/15/2025 3.9 Calcium, Total (mg/dL) Date Value 04/15/2025 9.5 Alkaline Phosphatase (U/L) Date Value 04/15/2025 114 (H) Bilirubin, Total (mg/dL) Date Value 04/15/2025 0.7 AST (U/L) Date Value 04/15/2025 15 ALT (U/L) Date Value 04/15/2025 15 ____ DIAGNOSIS: (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 I spent a total of 40minutes on the date of service which included preparing to see the patient, [id number] patient care, completing clinical documentation, obtaining and/or reviewing separately obtained history, performing a medically appropriate examination, counseling and educating the patient/family/caregiver, ordering medications, tests, or procedures, independently interpreting results (not separately reported), communicating results to the patient/family/caregiver, and care coordination (not separately reported). 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 COURSE: definitive and concurrent chemotherapy Area Treated: Larynx, bilateral neck Current dose: 4800 Gy in 24 fx Planned dose: 7000 Gy in 35 fx SUBJECTIVE: Fatigue improved after chemo held last week. Dysphagia stable. Dry mouth and taste changes persist. Still eating fairly well. Denies headache or dizziness. PHYSICAL EXAM: 04/13/25 1424 BP: 119/83 Pulse: 91 Resp: 18 Temp: 36.2 C (97.1 F) SpO2: 100% Weight: 87.9 kg (193 lb 12.6 oz) KPS: 100 General Appearance: Alert and oriented. No acute distress. Radiation dermatitis: No Mucositis: No Oral cavity and oropharynx: lips and gums normal, oral and pharyngeal mucosa moist, palate elevatesnormally, tongue mobile and without palpable lesions, tonsils without masses Neck: Normal ROM. No palpable cervical or supraclavicular adenopathy. IMAGING/LAB RESULTS: Hemoglobin (g/dL) Date Value 04/08/2025 12.7 Hematocrit (%) Date Value 04/08/2025 35.9 WBC (k/uL) Date Value 04/08/2025 3.50 Platelet Count (k/uL) Date Value 04/08/2025 53 TOXICITY ASSESSMENT (CTCv4): Dysphagia:grade 0 - No [...] reviewed and current:Yes Medications started: None ASSESSMENT: Overall doing fairly well. Discussed supportive measures. Continue nutritional supplementation as needed. Continue radiation as previously outlined. Evy Grant MD documented in this encounterWood County Hospital08-13-2025 NoteUniversity Hospitals Tripoint [facility] Center08-13-2025 History of Present illness Narrative* Sulma Perry RN - 04/08/2025 11:12 AM EDT Holding treatment due to low platelets. David Fregoso CNP gives orders for NS 1000 ml and Mag 2g IV today. Sulma Perry RN documented in this encounterWood County Hospital08-13-2025 History of Present illness Narrative* Merline Fregoso APRN.MARY ELLEN - 04/08/2025 10:30 AM EDT Images from the original note were not included. 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 CASE SUMMARY / ASSESSMENT: 84 year old man with vocal cord squamous cell cancer presents to start concurrent chemotherapy withradiation for organ preservation. He underwent bronchoscopy 02/24/25 [...] metabolically active cervical lymphadenopathy. * Intensely metabolically activeright paratracheal node (SUV max 8.4), presumed metastatic. [...] 5 mm left apical nodule without increased metabolicactivity, however likely below PET resolution. Continue CT surveillance as warranted clinically. 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 (01/07/2025) Laryngoscopic Examination: Left true vocal cord mass with fixation. ____ HPI: Updated Visit, April 08, 2025: Chad [...] his ability to drive, stating he can onlydrive in emergencies. His partner, whom he refers [...] old male. 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 Constitutional: (+) fatigue, (+) weakness, (+) weight loss Gastrointestinal: (+) constipation, (+) nausea, (+) dyspepsia, (-) vomiting ___ ECOG PERFORMANCE STATUS: 1 PHYSICAL EXAMINATION: Vitals: [...] skin without rash, lesions, wounds or petechiae. ____ ALLERGIES: ALLERGIES No Known Allergies MEDICATIONS: naproxen sodium (ALEVE) 220 mg tablet^Take 220 mg by mouth two times a day with meals.^Disp: ^Rfl: ondansetron (ZOFRAN) 8 mg tablet^Take 1 tablet by mouth every 8 hours as needed for nausea/vomiting.^Disp: 90 tablet^Rfl: 1 prochlorperazine (COMPAZINE) 10 mg tablet^Take 1 tablet by mouth every 6 hours as needed.^Disp: 100tablet^Rfl: 1 aspirin, enteric coated (ASPIRIN, ENTERIC COATED) [...] 2 tablets by mouth once daily.^Disp: ^Rfl: ____ LABORATORY VALUES: WBC (k/uL) Date Value 04/08/2025 [...] 19 ALT (U/L) Date Value 04/08/2025 19 ____ DIAGNOSIS: (C32.0) Malignant neoplasm of left vocal [...] which included preparing to see the patient, [id number] patient care, completing clinical documentation, obtaining and/or reviewing separately obtained history, performing a medically appropriate examination, counseling and educating the patient/family/caregiver, ordering medications, tests, or procedures, independently interpreting results (not separately reported), communicating results to the patient/family/caregiver, and care coordination (not separately reported). Merline Fregoso APRN, PUBLIC HEALTH DOCTOR-C, OCN Hematology and Oncology Services Provided at: [place], [place] CC: Evy Juarez MD [facility] [facility] [id number] * Lubna Granados MA - 04/08/2025 10:24 AM EDT Patient states he looks good on outside but inside feels like jello, hot flashes, can't sleep at night but sleeps during the day, also he states it takes 1 1/2 hours to do a 20 minute job. Lubna Granados MA documented in this encounterWood County Hospital08-13-2025 NoteUniversity Hospitals [facility]point [facility] Center08-13-2025 NoteUniversity Hospitals [facility] Center08-11-2025 NoteUniversity Hospitals [facility]08-11-2025 History of Present illness Narrative* Evy Grant MD - 04/06/2025 2:12 PM EDT Radiation Oncology - On Treatment Review (OTR) [...] normal, oral and pharyngeal mucosa moist, palate elevatesnormally, tongue mobile and without palpable lesions, tonsils [...] and imaging reviewed. Continue radiation as outlined. Evy Grant MD documented in this encounterWood County Hospital08-04-2025 NoteUniversity Hospitals [facility] Center08-04-2025 History of Present illness Narrative* Evy Grant MD - 03/30/2025 2:59 PM EDT Radiation Oncology - On Treatment Review (OTR) [...] normal, oral and pharyngeal mucosa moist, palate elevatesnormally, tongue mobile and without palpable lesions, tonsils [...] and imaging reviewed. Continue radiation as outlined. Evy Grant MD documented in this encounterWood County Hospital07-30-2025 NoteUniversity Hospitals Tripoint [facility] Center07-30-2025 History of Present illness Narrative* Jeanette Rowland LSW - 03/25/2025 2:52 PM EDT .PSYCHOSOCIAL SCREENING ASSESSMENT Date of Service: March [...] is Child/Children: Yes. How many? 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 Unknown EMPLOYMENT/FINANCIAL/HEALTH INSURANCE: Employment: Retired Income source: Social Security and Custodial Pension Insurance: Medicare only Prescription coverage: Yes [facility] the [facility]? N/A Financial Distress: No FOOD INSECURITY Within the past year, have you worried about how you would buy or obtain food? No LIVING ARRANGEMENTS: Type: House- independent [place] Resides with: Alone Transportation Needs: No Transportation Needs (01/10/2023) Received from [facility] Transportation In the past 12 months, has [...] EPIC: No Health Care Durable Power of Weather Analyst: No and declined at this time Scanned [...] head and neck cancer. Patient lives in [place], [place]. Patient has a significant other that helps him. Patient has macular degeneration to the point that is not able to drive. Patient has 3 sons. 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 Patient spoke about how he has enjoyed his boat and spending time on [email or web address]. No immediate psychosocial needs or concerns were [...] tab: Yes GHADA Marcano documented in this encounterWood County Hospital07-30-2025 NoteUniversity Hospitals Tripoint [facility] Center07-28-2025 NoteUniversity Hospitals [facility]07-28-2025 History of Present illness Narrative* Evy Grant MD - 03/23/2025 5:13 PM EDT Radiation Oncology - On Treatment Review (OTR) [...] normal, oral and pharyngeal mucosa moist, palate elevatesnormally, tongue mobile and without palpable lesions, tonsils [...] and imaging reviewed. Continue radiation as outlined. Evy Grant MD documented in this encounterWood County Hospital07-23-2025 History of Present illness Narrative* eBkah Perdomo PA-C - 03/18/2025 11:00 AM EDT Images from the original note were not included. 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 He underwent bronchoscopy 02/24/25 [...] old male. 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 Bekah Perdomo PA-C Hematology and Oncology Services Provided at: [place], [place] CC: Evy Grant Elaine Clint Juarez MD [address] [facility] [id number] documented in this encounterWood County [facility]25 Note[facility]07-21-2025 NoteUniversity Hospitals [facility]point [facility] Center07-21-2025 History of Present illness Narrative* Evy Grant MD - 03/16/2025 3:13 PM EDT Radiation Oncology - On Treatment Review (OTR) [...] normal, oral and pharyngeal mucosa moist, palate elevatesnormally, tongue mobile and without palpable lesions, tonsils [...] and imaging reviewed. Continue radiation as outlined. Evy Grant MD documented in [facility] encounterWood [facility]07-[facility]25 Telephone encounter Note * Telephone Encounter - Aleksandra Rollins RN - 03/16/2025 10:44 AM EDT CYCLE 1/DAY 1 POST TREATMENT CALL Today's [...] to take naps? No Rates his fatigue 8-910. Sleeps at 9 PM and then wakes [...] medical attention and after hours number protocol. Aleksandra Rollins RN [facility] Work Phone: [phone] Miscellaneous Notes* Telephone Encounter - Aleksandra Rollins RN - 03/16/2025 10:44 AM EDT CYCLE 1/DAY 1 POST TREATMENT CALL Today's [...] to take naps? No Rates his fatigue 8-9/10. Sleeps at 9 PM and then wakes [...] medical attention and after hours number protocol. Aleksandra Rollins RN documented in this encounterWood County Hospital07-16-2025 History of Present illness Narrative* Evy Grant MD - 03/11/2025 3:26 PM EDT Radiation Oncology - On Treatment Review (OTR) [...] normal, oral and pharyngeal mucosa moist, palate elevatesnormally, tongue mobile and without palpable lesions, tonsils [...] First treatment given. Continue radiation as prescribed. Evy Grant MD documented in this encounterWood [facility]07-16-2025 NoteUniversity Hospitals [facility] Center07-16-2025 History of Present illness Narrative* Bekah Perdomo PA-C - 03/11/2025 11:00 AM EDT Images from the original note were not included. NAME: Chad Mckeon NO.: [id number] DATE OF SERVICE: March 11, 2025 Referring [...] cell cancer presents to start concurrent chemotherapy withradiation for organ preservation. He underwent bronchoscopy 02/24/25 [...] old male. 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 Bekah Perdomo PA-C Hematology and Oncology Services Provided at: [place], [place] CC: Evy [facility] Clint Juarez MD [address] [facility] [id number] documented in this encounterWood County Hospital07-16-2025 NoteUniversity Hospitals [facility] Center07-08-2025 Telephone encounter Note* Telephone Encounter - Sandeep Flynn APRN.CNP - 03/03/2025 11:19 AM EDT The following approved medication requests have been transmitted electronically. Requested Prescriptions Signed Prescriptions Disp Refills ondansetron (ZOFRAN) 8 mg tablet 90 tablet 1 Sig: Take 1 tablet by mouth every 8 hours as needed for nausea/vomiting. Authorizing Provider: SANDEEP FLYNN prochlorperazine (COMPAZINE) 10 mg tablet 100 tablet 1 Sig: Take 1 tablet by mouth every 6 hours as needed. Authorizing Provider: SANDEEP FLYNN APRN.CNP [facility]07-08-2025 Miscellaneous Notes* Telephone Encounter - Sandeep Flynn APRN.CNP - 03/03/2025 11:19 AM EDT The following approved medication requests have been transmitted electronically. Requested Prescriptions Signed Prescriptions Disp Refills ondansetron (ZOFRAN) 8 mg tablet 90 tablet 1 Sig: Take 1 tablet by mouth every 8 hours as needed for nausea/vomiting. Authorizing Provider: SANDEEP FLYNN prochlorperazine (COMPAZINE) 10 mg tablet 100 tablet 1 Sig: Take 1 tablet by mouth every 6 hours as needed. Authorizing Provider: SANDEEP FLYNN APRN.CNP * Telephone Encounter - Aleksandra Rollins RN - 03/03/2025 11:10 AM EDT Pt's original scripts were auto dc'd. Will be starting treatment on 03/11. New scripts pended. Aleksandra Rollins RN documented in this encounterWood County Hospital07-08-2025 NoteUniversity Hospitals [facility] Center07-08-2025 History of Present illness Narrative* Aleksandra Rollins RN - 03/03/2025 11:12 AM EDT ONCOLOGY PATIENT EDUCATION NOTE TOPIC: Chemotherapy, Medications: [...] patient, which included the importance of reporting anyfever of 100.4F (38.0C) or greater to the healthcare team as noted on the provided wallet card and/or magnet. YES - Patient services information. YES Time Spent: 50 minutes REFERRAL (RECOMMENDATION): N/A Aleksandra Rollins RN documented in this encounterWood County Hospital07-08-2025 Telephone encounter Note * Telephone Encounter - Aleksandra Rollins RN - 03/03/2025 11:10 AM EDT Pt's original scripts were auto dc'd. Will be starting treatment on 03/11. New scripts pended. Aleksandra Rollins RN [facility] Work Phone: [phone] History of Present illness Narrative* Maggie Hernandez [facility] - 03/03/2025 11:00 AM EDT Images from the original note were not included. [facility] Department of Pharmacy Oncology Pharmacy Medication [...] with chemotherapy, immunosuppression, or other standard of caretreatment plan medications anticipated: No. There are no [...] time (15 minute increments) with the patient Maggie Hernandez RPh documented in this encounterWood County Hospital07-08-2025 NoteUniversity Hospitals Tripoint Medical Center07-08-2025 NoteHNO ID: [id number] Author: Evy GRANT MD Service: ? Author Type: Physician Type: Progress Notes Filed: 03/03/2025 10:52 Note Text: [facility]07-08-2025 History of Present illness Narrative* Evy Grant MD - 03/03/2025 10:51 AM EDT sim documented in this encounterWood County Hospital07-08-2025 NoteUniversity Hospitals [facility]point Medical Center07-08-2025 History of Present illness Narrative* Evy Grant MD - 03/03/2025 10:49 AM EDT Radiation Oncology - New Patient/Consult [...] concurrent chemotherapy with Dr. Burgos. 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 Patient education will be completed per nursing. Electronically Signed Glenn Grant M.D. / FRANCISCO 54:02 PM documented in this encounterWood County Hospital07-08-2025 History of Present illness Narrative* Evy Grant MD - 03/03/2025 12:00 AM EDT CHAD MCKEON [id number] 03/03/2025 [facility] [place] [facility] - Department of Radiation Oncology Treatment Planning Note For reasons stated in the consult note, Chad Mckeon is a candidate for radiation therapy. Based on review and interpretation of the relevant diagnostic studies together with the exam findings, Chad Mckeon was simulated on 03/03/2025 at which time the target volume and/or requisite yuan were d elineated, as indicated in the simulation note, to [...] 96.8% isodose line with 10MV and 3 yuan. Custom MLC for IMRT werethe treatment device used to shape/modify the beams. Limiting dose to normal tissue was confirmed upon review of the calculated dose volume histogram. IMRT planning was used because it best met the dose/volume constraints for the organs at risk for this patient, better than what could be achieved using conventional or 3D planning. The specific doserequirements for the PTV, organs at risk and dose-volume histograms are contained in this treatmentplan and/or elsewhere in the medical record. A completed summary of this plan dated 03/10/2025 incorporated herein by reference includes dose, beam arrangements, energy, blocking, isodose distribution, and/or ports and DVH. Electronically Signed Glenn Grant M.D. 59:30 AM documented in this encounterWood County Hospital07-08-2025 NoteUniversity Hospitals Tripoint Medical Center07-08-2025 NoteUniversity Hospitals [facility] Center07-01-2025 NoteHNO ID: [id number] Author: TOSHIA NOEL APRN.ED TRANSPORTER Service: Anesthesiology Author Type: Nurse Manager Database Administration Type: Anesthesia Procedure Notes Filed: 02/24/2025 13:29 Note Text: ANESTHESIOLOGY PROCEDURE NOTE Airway General Information Procedure Start Time/Medication Administration: 02/24/2025 1:19 PM Procedure End Time: 02/24/2025 1:19 PM Patient location during procedure: OR Patient identity confirmed: arm band, care steam room attendant and patient sedated or unresponsive Staffing Anesthesiologist: Demi Coulter MD ED TRANSPORTER: Toshia Noel APRN.ED TRANSPORTER Performed by: ED TRANSPORTER Indications and Patient Condition Indications for airway management: anesthesia Preoxygenated: yes anesthesia circuit Patient position: sniffing Method: asleep Final Airway Details Final airway type: supraglottic airway Number of attempts at approach: 1 Final Supraglottic Airway: i-gel Size 5 Seal Adequate: yes Airway not difficult SIGNATURE: Toshia Noel APRN.ED TRANSPORTER PATIENT NAME: Chad Mckeon DATE: February 24, 2025 TIME: 1:29 PM CSN: [id number] [facility] Patient Name: Chad Mckeon Procedure Date: 02/24/2025 12:56 PM Date of : 1940 Admit Type: Outpatient Age: 84 Room: [facility] Room 2 Gender: Male Attending MD: Gonzalo Ricks MD, [id number] Procedure: Bronchoscopy Indications: Mediastinal adenopathy, vocal cord cancer Providers: Gonzalo Ricks MD (Doctor), Martha Bass RN (Assisting Nurse) Referring MD: Requesting Physician: Evy Grant Patient Profile: Refer to note in [...] aspiration was also performed using an [employer]ot 22 gauge needle and sent for routine [...] Procedure Start: 1:23:05 PM Procedure End: 1:52:16 [facility]06-26-2025 History and physical note* Gonzalo Ricks MD - 02/19/2025 10:35 AM EDT Images from the original note were not included. Interventional Pulmonary Consultation Date of Service: February 19, 2025 Patient: Chad Mckeon Medical Record: [id number] Primary Care Physician: Fausto Juarez MD Referring Provider: Hubert Grant MD History of Present Illness Chad Mckeon is a 84 year old male with a past history of CAD s/p CABG, vocal cord cancer, HTN,DM who was sent by Dr. Grant for evaluation and management of mediastinal adenopathy. My findingsand recommendations will be communicated to the referring [...] palpitations, no c/o chest pain. No leg edema.No cough, fevers, phlegm, dyspnea, DAWN. Past Medical [...] which included preparing to see the patient, [id number] patient care, completing clinical documentation, obtaining and/or reviewing separately obtained history, performing a medically appropriate examination, counseling and educating the pat ient/family/caregiver, ordering medications, tests, or procedures, communicating with other HCPs (not separately reported), independently interpreting results (not separately reported), communicatingresults to the patient/family/caregiver, and care coordination (not separately reported). [facility]06-26-2025 History and physical note* Gonzalo Ricks MD - 02/19/2025 10:35 AM EDT Images from the original note were not included. Interventional Pulmonary Consultation Date of Service: February 19, 2025 Patient: Chad Mckeon Medical Record: [id number] Primary Care Physician: Fausto Juarez MD Referring Provider: Hubert Grant MD History of Present Illness Chad Mckeon is a 84 year old male with a past history of CAD s/p CABG, vocal cord cancer, HTN,DM who was sent by Dr. Grant for evaluation and management of mediastinal adenopathy. My findingsand recommendations will be communicated to the referring [...] palpitations, no c/o chest pain. No leg edema.No cough, fevers, phlegm, dyspnea, DAWN. Past Medical [...] Treatment pending above biopsy, following with Dr. Gratn History CABG DM2. Controlled with meds, followed by PCP HTN. Stable, managed by PCP Gonzalo Ricks MD Date: February 19, 2025 Time: 10:35 AM I spent a total of 50 minutes on the date of the service which included preparing to see the patient, [id number] patient care, completing clinical documentation, obtaining and/or reviewing separately obtained history, performing a medically appropriate examination, counseling and educating the pat ient/family/caregiver, ordering medications, tests, or procedures, communicating with other HCPs (not separately reported), independently interpreting results (not separately reported), communicatingresults to the patient/family/caregiver, and care coordination (not separately reported). documented in this encounterWood County Hospital06-24-2025 Telephone encounter Note * Telephone Encounter - Farhad Ovalles LPN - 02/17/2025 9:56 AM EDT Bronch scheduled for 02/24/25. Echo report received from [facility]. Please review under Cardiac Tab. Thank you. [facility]06-24-2025 Miscellaneous Notes* Telephone Encounter - Farhad Logan LPN - 02/17/2025 9:56 AM EDT Bronch scheduled for 02/24/25. Echo report received from [facility]. Please review under Cardiac Tab. Thank you. documented in this encounterWood County Hospital06-20-2025 Telephone encounter Note * Telephone Encounter - Pete Govea RN - 02/13/2025 4:06 PM EDT Spoke with patient to remind him to stop taking plavix on 02/18 until after the bronchoscopy on 02/24. Patient verbalized understanding. Pete Govea RN [facility]06-20-2025 Miscellaneous Notes* Telephone Encounter - Pete Govea RN - 02/13/2025 4:06 PM EDT Spoke with patient to remind him to stop taking plavix on 02/18 until after the bronchoscopy on 02/24. Patient verbalized understanding. Pete Govea RN documented in this encounterWood County Hospital06-17-2025 Telephone encounter Note * Telephone Encounter - Jasmine Peter - 02/10/2025 9:49 AM EDT Pre Sim, Nurse Visit for IV Start, and Chemo Ed with Audra has all been added to the schedule on 03/03/25 with an arrival of 8:45AM I called and spoke to Chad and he confirmed his appointments and he understood no hair products Jasmine B PSS [facility]06-17-2025 Miscellaneous Notes* Telephone Encounter - Jasmine Peter - 02/10/2025 9:49 AM EDT Pre Sim, Nurse Visit for IV Start, and Chemo Ed with Audra has all been added to the schedule on 03/03/25 with an arrival of 8:45AM I called and spoke to Chad and he confirmed his appointments and he understood no hair products Jasmine Hoover PSS * Telephone Encounter - Tierney Gonzalez RT(R) - 02/10/2025 9:28 AM EDT Sim scheduled for 03/03/25 at 9:30 am PSS please schedule Pre sim consent for 9am Nurse visit for IV start Chemo ed with Audra same day Notify patient of all appointments Arrival of 8:45am Special instructions no hair products Tierney Wilks RT(R)(T) * Telephone Encounter - Sujata Crawford, YONATAN - 02/10/2025 7:31 AM EDT Please schedule SIM 1 week post EBUS (Scheduled 02/24) Treating H&N IV Contrast Need Pre Sim Consent Rad Nurse Visit for IV Start Coordinate chemo ed appt with Audra Thank you Sujata Crawford, RN documented in this encounterWood County Hospital06-17-2025 Telephone encounter Note * Telephone Encounter - Tierney Gonzalez RT(R) - 02/10/2025 9:28 AM EDT Sim scheduled for 03/03/25 at 9:30 am PSS please schedule Pre sim consent for 9am Nurse visit for IV start Chemo ed with Audra same day Notify patient of all appointments Arrival of 8:45am Special instructions no hair products Tierney Wilks RT(R)(T) [facility]06-17-2025 Telephone encounter Note* Telephone Encounter - Sujata Crawford, YONATAN - 02/10/2025 7:31 AM EDT Please schedule SIM 1 week post EBUS (Scheduled 02/24) Treating H&N IV Contrast Need Pre Sim Consent Rad Nurse Visit for IV Start Coordinate chemo ed appt with Audra Thank you Sujata Crawford, RN [facility]06-16-2025 NoteHNO ID: [id number] Author: PETE GOVEA, RN Service: ? Author Type: Registered Nurse Type: Progress Notes Filed: 02/09/2025 13:54 Note Text: Cardiac clearance and medication hold form sent via [employer]. [facility]-16-2025 NoteHNO ID: [id number] Author: PETE GOVEA, RN Service: ? 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 [phone] Total call time: 18 minutesLakeville [id number] NoteEducation (HAM) CHAD MCKEON ([id number]) 1940 M Date Time Provider Department 02/09/25 9:45 AM SHIRLEY QIU Reason for Visit: [...] mouth. Encounter Status:Closed by SHIRLEY QIU on 02/09/25[facility] 02-09-2025 NoteHNO ID: [id number] Author: SHIRLEY QIU RD Service: ? Author Type: Registered Dietitian Type: Progress Notes Filed: 02/09/2025 15:58 Note Text: Oncology Nutrition Therapy Initial Assessment I have communicated my name and active licensure. The patient's identity and physical location were verified at the time of this visit. Either the patient or their legal phone representative has been informed of the risks [...] of bread Snack - none Dinner - maori toast, 4 slices of ayala Snack - [...] 01/27/2025 90 kg (198 lb 6.6 oz) [place] Body Weight: 70kg Dosing Weight: 90.9 kg Estimated kilocalorie needs: 7571-6578 kilocalories determined by 30-35 kcal/kg (IBW) Estimated protein needs: 90-108 grams determined by 1.0-1.2 g/kg Current weight Estimated fluid needs: 7344-2872 milliliters based on 1 mL per kcal(unless [...] 81 mg EC table (more content not included)...[facility]06-16-2025 History of Present illness Narrative* Shirley Qiu RD - 02/09/2025 7:54 AM EDT Oncology Nutrition Therapy Initial Assessment I have communicated my name and active licensure. The patient's identity and physical location wereverified at the time of this visit. Either the patient or their legal phone representative has been informed of the risks and benefits of -- and alternatives to -- treatment through a remote evaluation andconsents to proceed with the evaluation remotely. RECOMMENDED [...] of the vocal cord, larynx primary site. Currenttreatment: anticipating weekly cisplatin/carboplatin with radiation. PMH significant for DM, HTN, hy percholesteremia, cardiac bypass. Patient's symptoms are: None Subjective: [...] of bread Snack - none Dinner - maori toast, 4 slices of ayala Snack - none Beverages - coffee, water Vitamins & Minerals - see below Provided supportive education regarding the importance of adequate nutrient intakes and maintenanceof LBM throughout treatment. Discussed above intervention. All questions/concerns voiced by pt wereaddressed this visit. Readiness to Learn: Cognitive ability: [...] 01/27/2025 90 kg (198 lb 6.6 oz) [place] Body Weight: 70kg Dosing Weight: 90.9 kg Estimated kilocalorie needs: 6965-2301 kilocalories determined by 30-35 kcal/kg (IBW) Estimated protein needs: 90-108 grams determined by 1.0-1.2 g/kg Current weight Estimated fluid needs: 7125-8636 milliliters based on 1 mL per kcal(unless [...] Follow up: pending treatment Referred by: Dr. Tasia CARRANZA Billing Type: Initial Assess 1 unit Total Time (mins): 13 Signed by: Shirley Qiu RD, EUSEBIO documented in this encounterWood County Hospital06-12-2025 NoteHNO ID: [id number] Author: PETE GOVEA RN Service: ? Author Type: Registered Nurse Type: Progress Notes Filed: 02/25/2025 10:22 Note Text: Patient requested a call back next week to discuss scheduling a bronchoscopy as he needs to work on obtaining transportation to the consult and procedure. Declined to set up [facility], unable to offer virtual visit. Pete Govea, [facility]06-12-2025 History of Present illness Narrative* Pete Govea RN - 02/05/2025 2:52 PM EDT Patient requested a call back next week to discuss scheduling a bronchoscopy as he needs to work onobtaining transportation to the consult and procedure. Declined setting up MyChart, unable to offervirtual visit. Pete Govea RN * Gonzalo Ricks MD - 02/05/2025 11:46 AM EDT Bronchoscopy [...] nodes Referred by: Tasia Reviewed by: MALCOLM Ricks MD February 05, 2025 11:46 AM documented in this encounterWood County Hospital06-12-2025 Telephone encounter Note * Telephone Encounter - Esthela Silva - 02/05/2025 1:27 PM EDT Gonzalo Ricks MD [place] [employer]; Pete Govea, RN; Evy Grant MD Thanks We'll get this in sam. He's on plavix, which will need a hold of at least 5 days. We will aim for next Sunday, but it may have to wait a bit longer due to plavix issue. [facility]06-12-2025 Miscellaneous Notes* Telephone Encounter - Esthela Silva - 02/05/2025 1:27 PM EDT Gonzalo Ricks MD [place] [employer]; Pete Govea, RN; Evy Grant MD Thanks We'll get this in sam. He's on plavix, which will need a hold of at least 5 days. We will aim for next Sunday, but it may have to wait a bit longer due to plavix issue. * Telephone Encounter - Esthela Silva - 02/05/2025 10:55 AM EDT Sent a staff message to Dr. Ricks and Pete for EBUS * Telephone Encounter - Chioma Powell RN - 02/05/2025 9:03 AM EDT FYI-Dr. Grant is referring Chad to Dr. Ricks [...] so much! Fatoumata Lock documented in this encounterWood County Hospital06-12-2025 NoteHNO ID: [id number] Author: PETE GOVEA, RN Service: ? Author [...] nodes Referred by: Tasia Reviewed by: MALCOLM Ricks MD February 05, 2025 11:46 [facility]06-12-2025 Telephone encounter Note* Telephone Encounter - Esthela Silva - 02/05/2025 10:55 AM EDT Sent a staff message to Dr. Buchanan for EBUS [facility]06-12-2025 Telephone encounter Note* Telephone Encounter - Esthela Silva - 02/05/2025 10:50 AM EDT Sent a staff message to Dr. White and Pete Govea for Ebus. [facility]06-12-2025 Miscellaneous Notes* Telephone Encounter - Esthela Silva - 02/05/2025 10:50 AM EDT Sent a staff message to Dr. White and Pete Govea for Ebus. documented in this encounterWood County Hospital06-12-2025 NoteUniversity Hospitals Tripoint Medical Center06-12-2025 History of Present illness Narrative* Evy Grant MD - 02/05/2025 9:34 AM EDT Radiation [...] possible. Will refer him to pulmonary at [facility] in consideration of this. Signed by: Evy Grant MD cc: MD Austin Morrow MD [address] [facility] [address] documented in this encounterWood County Hospital06-12-2025 Telephone encounter Note * Telephone Encounter - Chioma Powell RN - 02/05/2025 9:03 AM EDT FYI-Dr. Grant is referring Chad to Dr. Ricks for EBUS. SIM and chemo ed to be rescheduled after EBUS. I notified Audra Yanez Efe Powell RN [facility]06-10-2025 Telephone encounter Note* Telephone Encounter - Chandan Burgos MD - 02/03/2025 3:32 PM EDT Signed thanks [facility]06-10-2025 Miscellaneous Notes* Telephone Encounter - Chandan Burgos MD - 02/03/2025 3:32 PM EDT Signed thanks * Telephone Encounter - Aleksandra Rollins RN - 02/03/2025 2:55 PM EDT Pt will be in on for education (Cisplatin). Scripts for antiemetics pended. Aleksandra Rollins RN documented in this encounterWood County Hospital06-10-2025 Telephone encounter Note * Telephone Encounter - Aleksandra Rollins RN - 02/03/2025 2:55 PM EDT Pt will be in on for education (Cisplatin). Scripts for antiemetics pended. Aleksandra Rollins RN [facility] Work Phone: [phone] Telephone encounter Note* Telephone Encounter - Fatoumata Lock - 02/02/2025 2:15 PM EDT Patient scheduled for SIM on 02/05 - added education appointment w/ Audra. Fatoumata Lock [facility]06-09-2025 Telephone encounter Note* Telephone Encounter - Esthela Silva - 02/02/2025 1:33 PM EDT Nutrition consult scheduled as a phone call, 02/09/2025 at 945am. Confirmed with patient [facility]06-09-2025 Miscellaneous Notes* Telephone Encounter - Esthela Silva - 02/02/2025 1:33 PM EDT Nutrition consult scheduled as a phone call, 02/09/2025 at 945am. Confirmed with patient * Telephone Encounter - Esthela Silva - 02/02/2025 8:05 AM EDT Spoke to patient, Confirmed arrival on 02/05 at 830am and no special instructions. 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 Cortney - was the Nutrtion [...] and checked in for today Jasmine B PSS * Telephone Encounter - Chioma Powell RN - 01/27/2025 9:38 AM EDT PSS/RT: please schedule Consult with med onc PET SIM after treating neck with IV contrast and mask Consent needed Nurse visit day of SIM for IV start Nurse ed today Rad lab at PET per pt request Consult ballistic expert Thanks Chioma Powell RN [facility] Telephone encounter Note * Telephone Encounter - Esthela Silva - 02/02/2025 8:05 AM EDT Spoke to patient, Confirmed arrival on 02/05 at 830am and no special instructions. 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 Cortney - was the Nutrtion consult scheduled? [facility]06-06-2025 Telephone encounter Note* Telephone Encounter - Betty Gaston Tech - 01/30/2025 2:34 PM EDT PSS- I schedule sim on 02/05/2025 at 9:15am. Pre-sim consent at 8:45am. Nurse visit at 9:15am Arrival time of 8:30am , No special instructions Thank you, Betty Cervantes [facility] Work Phone: [phone] Telephone encounter Note* Telephone Encounter - Fatoumata Lock - 01/30/2025 12:06 PM EDT Images from the original note were not included. Hi Team! If you could let us know start date. Thanks so much! Fatoumata Lock [facility]06-06-2025 Instructions* Patient Instructions* Chandan Burgos MD - 01/30/2025 12:01 PM [...] as soon as possible. documented in this encounterWood [facility]06-[facility]-2025 NoteUniversity Hospitals [facility]point [facility] Center06-06-2025 History of Present illness Narrative* Chandan Burgos MD - 01/30/2025 11:43 AM EDT Images from the original note were not included. NAME: Chad Mckeon [facility] NO.: [id number] DATE OF SERVICE: January 30, 2025 Referring [...] 2 diabetes mellitus without complication, 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) (E11.9) Diabetes mellitus noted; [...] old male. 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 (quit 20 [...] 2 diabetes mellitus without complication, unspecified whether fpc insulin use (HCC) PAST MEDICAL HISTORY Diagnosis [...] which included preparing to see the patient, [id number] patient care, completing clinical documentation, obtaining and/or reviewing separately obtained history, performing a medically appropriate examination, counseling and educating the pat ient/family/caregiver, ordering medications, tests, or procedures, independently interpreting results (not separately reported), communicating results to the patient/family/caregiver, and care coordination (not separately reported). Chandan Burgos MD, CPE Hematology and Oncology Services Provided at: [place], [place] CC: [facility] Fausto Juarez MD [address] [facility] [address] documented in this encounterWood County Hospital06-04-2025 History of Present illness Narrative* Linh Cruz RN - 01/28/2025 1:30 PM [...] 28, 2025 TIME: 1:44 PM * Aleksandra Landrum RT(R) - 01/28/2025 1:30 PM EDT RADIOLOGY [...] 1331 PATIENT DISCHARGED TO: Ambulatory patient, left OR department area. Is this a therapy: No A Diagnostic radioactive procedure has taken place, with no further precautions necessary other than routine body substance precautions. More information regarding radiation safety can be found usingthis link: [email or web address] SIGNATURE: RT Sánchez(Price) PATIENT NAME: Chad Mckeon DATE: January 28, 2025 TIME: 2:45 PM PAGER/CONTACT #: documented in this encounterWood [facility] Hospital06-04-2025 NoteUniversity Hospitals [facility]point [facility] Center06-04-2025 NoteUniversity Hospitals Tripoint Medical Center06-03-2025 Telephone encounter Note* Telephone Encounter - Jasmine Peter - 01/27/2025 10:31 AM EDT Rad Education was added to the schedule and checked in for today Jasmine Hoover PSS [facility]06-03-2025 NoteUniversity Hospitals Tripoint Medical Center06-03-2025 History of Present illness Narrative* Chioma Powell RN - 01/27/2025 10:02 AM EDT Radiation Therapy - Patient Education Note PATIENT NAME: Chad Mckeon PATIENT January 27, 2025 [facility] FACILITY/LOCATION: [facility] READINESS TO LEARN Cognitive Ability: Alert [...] by: Chioma Powell RN documented in this encounterWood County Hospital06-03-2025 Telephone encounter Note * Telephone Encounter - Chioma Powell RN - 01/27/2025 9:38 AM EDT PSS/RT: please schedule Consult with med onc PET SIM after treating neck with IV contrast and mask Consent needed Nurse visit day of SIM for IV start Nurse ed today Rad lab at PET per pt request Consult ballistic expert Thanks Chioma Poewll RN [facility]06-03-2025 History of Present illness Narrative* Evy Grant MD - 01/27/2025 9:00 AM EDT Radiation [...] staging for further discussion. Signed by: Evy Grant MD cc: MD Austin Morrow MD [address] [facility] [place] [address] * Chioma Powell RN - 01/27/2025 8:48 AM EDT Pacemaker/Defibrillator?N Previous Cancer(s)?N Previous Radiation?N Lupus/Scleroderma?N On body monitoring device?N Chioma Powell RN documented in this encounterWood County Hospital06-03-2025 NoteUniversity Hospitals Tripoint Medical Center06-03-2025 NoteUniversity Hospitals Tripoint [facility] Center06-02-2025 NoteUniversity Hospitals Tripoint Medical Center06-02-2025 History of Present illness Narrative* Xiomara Story RN - 01/26/2025 12:59 PM EDTSummary: Prescreen Images from the original note were not included. Chad Mckeon was reviewed for potential clinical trial enrollment on [facility] #[id number] by the [facility] [place] group on 01/26/25. 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 Requesting democrat notified. IRB [id number] Randomized Phase II/III Trial of Radiation with High-Dose Cisplatin (100 Mg/M2) Every Three Weeks Versus Radiation with Low-Dose Weekly Cisplatin (40 Mg/M2) For Patients with Locoregionally Advanced Squamous Cell Carcinoma of the Head and Neck ([facility]) No Study tasks were completed as a result of this initial review. Xiomara Story, MSN, RN Research Nurse Coordinator documented in this encounterWood County Hospital05-14-2025 History of Present illness Narrative* Austin Jarquin MD - 01/07/2025 11:10 AM EDT Images from the original note were not included. Subjective Patient ID: Chad Mckeon is a 84 y.o. male who presents for Vocal Cord Mass (S/p DL&E TBH 01/01/25) Path shows a keratinizing SCCA No family history on file. Active Ambulatory Problems Diagnosis Date Noted Acute blood loss as cause of postoperative anemia 01/21/2023 Acute respiratory insufficiency 01/16/2023 Angina pectoris, unstable (CMS/HCC) 01/09/2023 Atelectasis 01/21/2023 Chronic obstructive pulmonary disease (CMS/HCC) 01/09/2023 Coronary artery disease of [place] artery of [place] heart with stable angina pectoris (CMS/HCC) 01/09/2023 Essential hypertension (CMS/HCC) 01/09/2023 Hyperlipidemia (CMS/HCC) 01/09/2023 Hypomagnesemia 01/16/2023 Obesity 01/11/2023 Pleural effusion 01/17/2023 Postoperative atrial fibrillation (CMS/HCC) 01/21/2023 Pure hyperglyceridemia (CMS/HCC) 01/09/2023 Type 2 diabetes mellitus without complication [...] 500 mg in the evening.Take with meals. metoprolol tartrate (Lopressor) 25 MG [...] Dr Grant for tx. documented in this encounterUniversity [id number] History of Present illness Narrative* Austin Jarquin MD - 12/17/2024 10:50 AM EDT Images from the original note [...] Acute respiratory insufficiency 01/16/2023 Angina pectoris, unstable (CMS/HCC) 01/09/2023 Atelectasis 01/21/2023 Chronic obstructive pulmonary disease (CMS/HCC) 01/09/2023 Coronary artery disease of [place] artery of [place] heart with stable angina pectoris (CMS/HCC) 01/09/2023 Essential hypertension (CMS/HCC) 01/09/2023 Hyperlipidemia (CMS/HCC) 01/09/2023 Hypomagnesemia 01/16/2023 Obesity 01/11/2023 Pleural effusion 01/17/2023 Postoperative atrial fibrillation (CMS/HCC) 01/21/2023 Pure hyperglyceridemia (CMS/HCC) 01/09/2023 Type 2 diabetes mellitus without complication [...] 500 mg in the evening.Take with meals. No current facility-administered medications on [...] check a CT neck and arrange for amicrolaryngoscopy and biopsy. Pt will need to stop ASA for 10 days before the procedure. Pt will need cardiac clearance. 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 documented in this encounterUniversity [id number] NoteUT Cardiology - [facility] Subjective Chad Mckeon is a 84 [...] degeneration Pure hyperglyceridemia Coronary artery disease of [place] artery of [place] heart with stable angina pectoris Obesity Hypomagnesemia [...] 2005 Vaping Use Vaping status: Never Used HPI Chad is seen in follow-up. He is an 84-year-old man with prior history of hypertension and diabetes. In December 2022 he was admitted to [facility] with unstable angina. He was transferred to [facility]. Cardiac catheterization showed severe three-vessel coronary [...] 01/10/2023 01/14/24 CBC normal (more content not included)...[facility]09-20-2024 NoteCoronary artery disease is unchanged. Continue GDMT- ASA, plavix, metoprolol, lipitor Continue heart healthy diet and regular exercise Continue current treatment regimen. Continue current medications. Cardiac status will be reassessed in 6 months.[facility]09-20-2024 NoteUTP CARDIOLOGY PROGRESS NOTE HPI: Chad Mckeon is a 83 [...] ALP 123, AST 16, ALT 23 Pro [id number]- normal TSH 5.227= elevated, Free T4 1.24 [...] systolic function. Doppler sung (more content not included)...[facility]09-20-2024 NotePt is here for a six month follow up. Pt denies sob, chest pain, palpatations. 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 documented in this encounter [facility] HospitalEvaluation noteNo assessment information availableUniversity Hospitals [facility] Work Phone: Evaluation note* Diagnosis Head and neck cancer (HCC) Malignant neoplasm of head, face, and neck documented in this encounter [facility]* Diagnosis Head and neck cancer (HCC) Malignant neoplasm of head, face, and neck 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) Personal history of nicotine dependence Personal history of tobacco use, presenting hazards to health 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 Type 2 diabetes mellitus without complication, 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) documented in this encounter [facility]* Diagnosis Head and neck cancer (HCC)- Primary Malignant neoplasm of head, face, and neck Head and neck cancer (HCC) Malignant neoplasm of head, face, and neck [facility]* Diagnosis Head and neck cancer (HCC)- Primary Malignant neoplasm of head, face, and neck Lung nodule Solitary pulmonary nodule [facility]* Diagnosis Adenopathy- Primary Enlargement of lymph nodes [facility]* Diagnosis 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 Enlargement of lymph nodes [facility]* Diagnosis Adenopathy- Primary Enlargement of lymph nodes Head and neck cancer (HCC) Malignant neoplasm of head, face, and neck Type 2 diabetes mellitus without complication, 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) Presence of aortocoronary bypass [...] 2 diabetes mellitus without complication, 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) documented in this encounter [...] related fatigue Dehydration [facility]* Diagnosis 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 [facility]* Diagnosis 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 Chemotherapy-induced neutropenia Drug induced neutropenia Chemotherapy-induced fatigue Head and neck cancer (HCC) Malignant neoplasm of head, face, and neck Constipation, unspecified constipation type Encounter for antineoplastic chemotherapy Hypomagnesemia Disorders of magnesium metabolism Malignant neoplasm of unspecified part of unspecified bronchus or lung (HCC) Dehydration Dysphonia Thrombocytopenia Thrombocytopenia, unspecified [facility]* [...] and neck documented in this encounter [facility]* Diagnosis 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 Head and neck cancer (HCC) Malignant neoplasm of head, face, and neck Chemotherapy-induced neutropenia Drug induced neutropenia Chemotherapy-induced fatigue Encounter for antineoplastic chemotherapy Hypomagnesemia Disorders of magnesium metabolism Dehydration Thrombocytopenia Thrombocytopenia, unspecified Dysphonia documented [facility]* Diagnosis Head and neck cancer (HCC)- Primary Malignant neoplasm of head, face, and neck 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 Head and neck cancer (HCC) Malignant neoplasm of head, face, and neck Chemotherapy-induced neutropenia Drug induced neutropenia Chemotherapy-induced fatigue documented in this encounter [facility]* Diagnosis 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 Head and neck cancer (HCC) Malignant neoplasm of head, face, and neck Chemotherapy-induced neutropenia Drug induced neutropenia Chemotherapy-induced fatigue Encounter for antineoplastic chemotherapy Thrombocytopenia Thrombocytopenia, unspecified Dysphonia Malignant neoplasm of unspecified part of unspecified bronchus or lung (HCC) documented [facility] this encounter [facility]* Diagnosis 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 Chemotherapy-induced neutropenia Drug induced neutropenia Thrombocytopenia Thrombocytopenia, unspecified Dysphonia Antineoplastic chemotherapy induced pancytopenia Pain in throat Throat pain Encounter for antineoplastic radiation therapy Radiotherapy Immunocompromised state (HCC) Unspecified immunity deficiency 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 use of immunosuppressive drug documented in this encounter [facility] note* Diagnosis Head and neck cancer (HCC)- Primary Malignant neoplasm of head, face, and neck documented [facility] encounter [facility]* Diagnosis Head and neck cancer (HCC)- Primary Malignant neoplasm of head, face, and neck documented [facility] encounter [facility]* Diagnosis 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 [facility] encounter [facility]* Diagnosis 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 documented in this encounter [facility] HospitalReason for visit Narrative* [place] Prior Authorization (Routine) - AuthorizedSpecialtyDiagnoses / ProceduresReferred By ContactReferred To Contact Diagnoses Head and neck cancer (HCC) 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) Chandan Burgos MD [address] [place] [address] [place] [address] Phone: tel: fax: Hematology/Oncology [address] [place] [address] [place] [address] Phone: tel: fax: Referral IDStatusReasonStart DateExpiration DateVisits RequestedVisits [id number]/ [facility] Summary Purpose Family History No Family [...] section and content) DATE CREATED AUTHOR 01/09/2023 [facility] DATE CREATED AUTHOR AUTHOR'S ORGANIZ ATION 11/18/2024 [facility] DATE CREATED AUTHOR AUTHOR'S ORGANIZ ATION 02/15/2025 [facility] DATE CREATED AUTHOR AUTHOR'S ORGANIZ ATION 02/21/2025 [facility] DATE CREATED AUTHOR AUTHOR'S ORGANIZ ATION 02/26/2025 [facility] DATE CREATED AUTHOR AUTHOR'S ORGANIZ ATION 06/25/2025 [facility] DATE CREATED AUTHOR AUTHOR'S ORGANIZ ATION 06/26/2025 [facility] Care Teams (unrecognized sec tion and content) Team MemberRelationshipSpecialtyStart DateEnd Date Fausto Juarez MD [address] [place] [phone] PCP - GeneralFamily Medicine12/10/24Team MemberRelationshipSpecialtyStart DateEnd Date Fausto Juarez MD [address] [place] [address] PCP - GeneralFamily Medicine12/10/24Team MemberRelationshipSpecialtyStart DateEnd Date Fausto Juarez MD [address] [facility] [place] [address] PCP - GeneralFamily Medicine12/10/24Team MemberRelationshipSpecialtyStart DateEnd Date Fausto Juarez MD [address] [facility] [place] [address] PCP - GeneralFamily Medicine01/02/25Team MemberRelationshipSpecialtyStart DateEnd Date Fausto Juarez MD [address] [facility] [place] [address] PCP - GeneralFamily Medicine01/02/25 Team Status: Inactive Member Role Status Dates Austin Jarquin Jr, MD Attending Provider Active Start: January 01, 2025 End: January 01, 2025Team MemberRelationshipSpecialtyStart DateEnd Date Fausto Juarez MD [address] [facility] [place] [address] PCP - GeneralFamily Medicine12/02/15 Austin Jarquin MD [address] [place] [address] ReferringEnt - Otolaryngology01/20/25Team MemberRelationshipSpecialtyStart Date End Date Fausto Juarez MD [address] [facility] [place] [address] PCP - GeneralFamily Medicine12/02/15 Austin Jarquin MD [address] [place] [address] ReferringEnt - Otolaryngology01/20/25Te MemberRelationshipSpecialtyStart Date End Date Fausto Juarez MD [address] [place] [address] PCP - [facility] Medicine12/02/15 Austin Jarquin MD [address] [place] [address] ReferringEnt - Otolaryngology01/20/25Te MemberRelationshipSpecialtyStart Date End Date Fausto Juarez MD [address] [place] [address] PCP - [facility] Medicine12/02/15 Austin Jarquin MD [address] [facility] [address] [place] [address] ReferringEnt - Otolaryngology01/20/25 Chandan Burgos MD [address] [facility] [place] [address] PhysicianHematology/Oncology02/03/25 Evy Grant MD [address] [facility] [place] [address] PhysicianRadiation Oncology02/03/25 Aleksandra Rollins, YONATAN [address] [facility] [place] [address] Specialty Care CoordinatorHematology/Oncology02/03/25Team MemberRelationship SpecialtyStart DateEnd Fausto Juarez MD [address] [place] [address] PCP - [facility] Medicine12/02/15 Austin Jarquin MD [address] [place] [address] ReferringEnt - Otolaryngology01/20/25 Chandan Burgos MD [address] [facility] [place] [address] PhysicianHematology/Oncology02/03/25 Evy Grant MD [address] [facility] [place] [address] PhysicianRadiation Oncology02/03/25 Aleksandra Rollins, YONATAN [address] [facility] [place] [address] Specialty Care CoordinatorHematology/Oncology02/03/25Team MemberRelationship SpecialtyStart DateEnd Fausto Juarez MD [address] [place] [address] PCP - GeneralFamily Medicine12/02/15 Austin Jarquin MD [address] [place] [address] ReferringEnt - Otolaryngology01/20/25Team MemberRelationshipSpecialtyStart Date End Fausto Juarez MD [address] [place] [address] PCP - GeneralFamily Medicine12/02/15 Austin Jarquin MD [address] [place] [address] ReferringEnt - Otolaryngology01/20/25 Chandan Burgos MD [address] [facility] [place] [address] PhysicianHematology/Oncology02/03/25 Evy Grant MD [address] [facility] [place] [address] PhysicianRadiation Oncology02/03/25 Aleksandra Rollins, YONATAN [address] [facility] [place] [address] Specialty Care CoordinatorHematology/Oncology02/03/25Team MemberRelationship SpecialtyStart DateLaird Hospital Fausto Juarez MD [address] [place] [address] PCP - GeneralFamily Medicine12/02/15 Austin Jarquin MD [address] [facility] [address] [place] [address] ReferringEnt - Otolaryngology01/20/25 Chandan Burgos MD [address] [facility] [place] [address] PhysicianHematology/Oncology02/03/25 Evy Grant MD [address] [facility] [place] [address] PhysicianRadiation Oncology02/03/25 Aleksandra Rollins RN [address] [facility] [place] [address] Specialty Care CoordinatorHematology/Oncology02/03/25Team MemberRelationship SpecialtyStart DateEnd Fausto Juarez MD [address] [place] [address] PCP - [facility] Medicine12/02/15 Austin Jarquin MD [address] [place] [address] ReferringEnt - Otolaryngology01/20/25 Chandan Burgos MD [address] [facility] [place] [address] PhysicianHematology/Oncology02/03/25 Evy Grant MD [address] [facility] [place] [address] PhysicianRadiation Oncology02/03/25 Aleksandra Rollins RN [address] [facility] [place] [address] Specialty Care CoordinatorHematology/Oncology02/03/25Team MemberRelationship SpecialtyStart End Fausto Juarez MD [address] [place] [address] PCP - GeneralFaokly Medicine12/02/15 Austin Jarquin MD [address] [place] [address] ReferringEnt - Otolaryngology01/20/25 Chandan Burgos MD [address] [place] [address] PhysicianHematology/Oncology02/03/25 Evy Grant MD [address] [facility] [place] [address] PhysicianRadiation Oncology02/03/25 Aleksandra Rollins, RN [address] [facility] [address] [place], [place] [id number] Specialty Care CoordinatorHematology/Oncology02/03/25Te MemberRelationship SpecialtyStart DateEnd Fausto Juarez MD [address] [place] [address] PCP - [facility] Medicine12/02/15 Austin Jarquin MD [address] [place] [address] [facility] CenterEnt - Otolaryngology01/20/25 Chandan Burgos MD [address] [facility] [place] [address] PhysicianHematology/Oncology02/03/25 Evy Grant MD [address] [place] [address] PhysicianRadiation Oncology02/03/25 Aleksandra Rollins, RN [address] [facility] [address] [place], [place] [address] Specialty Care CoordinatorHematology/Oncology02/03/25Te MemberRelationship SpecialtyStart DateEnd Date Fausto Juarez MD [address] [facility] [place] [address] PCP - GeneralFamily Medicine12/02/15 Austin Jarquin MD [address] [place] [address] ReferringEnt - Otolaryngology01/20/25Team MemberRelationshipSpecialtyStart Date End Date Fausto Juarez MD [address] [place] [address] PCP - [facility] Medicine12/02/15 Austin Jarquin MD [address] [place] [address] ReferringEnt - Otolaryngology01/20/25 Chandan Burgos MD [address] [facility] [address] [place], [facility] PhysicianHematology/Oncology02/03/25 Evy Grant MD [address] [facility] [address] [place], [facility] PhysicianRadiation Oncology02/03/25 Aleksandra Rollins, YONATAN [address] [facility] [place] [address] Specialty Care CoordinatorHematology/Oncology02/03/25Team MemberRelationship SpecialtyStart DateEnd Date Fausto Juarez MD [address] [place] [address] PCP - GeneralFamily Medicine12/02/15 Austin Jarquin MD [address] [place] [address] ReferringEnt - Otolaryngology01/20/25 Chandan Burgos MD [address] [place] [address] PhysicianHematology/Oncology02/03/25 Evy Grant MD [address] [place] [address] PhysicianRadiation Oncology02/03/25 Aleksandra Rollins, RN [address] [place] [address] Specialty Care CoordinatorHematology/Oncology02/03/25Team MemberRelationship SpecialtyStart DateLong[facility] Fausto Juarez MD [address] [place] [address] PCP - [facility] Medicine12/02/15 Austin Jarquin MD [address] [place] [address] ReferringEnt - Otolaryngology01/20/25 Chandan Burgos MD [address] [place] [address] PhysicianHematology/Oncology02/03/25 Evy Grant MD [address] [place] [address] PhysicianRadiation Oncology02/03/25 Aleksandra Rollins, RN [address] [place] [address] Specialty Care CoordinatorHematology/Oncology02/03/25Te MemberRelationship SpecialtyStart [facility] Fausto Juarez MD [address] [facility] [place] [address] PCP - GeneralFamily Medicine12/02/15 Austin Jarquin MD [address] [place] [address] ReferringEnt - Otolaryngology01/20/25 Chandan Burgos MD [address] [facility] [place] [address] PhysicianHematology/Oncology02/03/25 Evy Grant MD [address] [place] [address] PhysicianRadiation Oncology02/03/25 Aleksandra Rollins RN [address] [facility] [place] [address] Specialty Care CoordinatorHematology/Oncology02/03/25Te MemberRelationship SpecialtyStart [facility] Fausto Rogers MD [address] [facility] [place] [address] PCP - GeneralFamily Medicine12/02/15 Ausitn Jarquin MD [address] [place] [address] ReferringEnt - Otolaryngology01/20/25 Chandan Burgos MD [address] [facility] [address] PhysicianHematology/Oncology02/03/25 Evy Grant MD [address] [facility] [place] [address] PhysicianRadiation Oncology02/03/25 Aleksandra Rollins, YONATAN [address] [facility] [place] [address] Specialty Care CoordinatorHematology/Oncology02/03/25Team MemberRelationship SpecialtyStart DateEnd Fausto Juarez MD [address] [place] [address] PCP - [facility] Medicine12/02/15 Austin Jarquin MD [address] [place] [address] ReferringEnt - Otolaryngology01/20/25 Chandan Burgos MD [address] [facility] [address] PhysicianHematology/Oncology02/03/25 Evy Grant MD [address] [facility] [place] [address] PhysicianRadiation Oncology02/03/25 Aleksandra Rollins, YONATAN [address] [facility] [place] [address] Specialty Care CoordinatorHematology/Oncology02/03/25Te MemberRelationship SpecialtyStart DateEnd Fausto Juarez MD [address] [place] [address] PCP - GeneralFamily Medicine12/02/15 Austin Jarquin MD [address] [place] [address] WAY [facility] [address] [place] [address] ReferringEnt - Otolaryngology01/20/25 Chandan Burgos MD [address] [place] [address] PhysicianHematology/Oncology02/03/25 Evy Grant MD [address] [facility] [place] [address] PhysicianRadiation Oncology02/03/25 Aleksandra Rollins, YONATAN [address] [facility] [place] [address] Specialty Care CoordinatorHematology/Oncology02/03/25Team MemberRelationship SpecialtyStart DateLong[facility] Fausto Juarez MD [address] [place] [address] PCP - GeneralFamily Medicine12/02/15 Austin Jarquin MD [address] [place] [address] [address] [place] [address] ReferringEnt - Otolaryngology01/20/25 Chandan Burgos MD [address] [place] [address] PhysicianHematology/Oncology02/03/25 Evy Grant MD [address] [facility] [place] [address] PhysicianRadiation Oncology02/03/25 Aleksandra Rollins RN [address] [facility] [place] [address] Specialty Care CoordinatorHematology/Oncology02/03/25Team MemberRelationship SpecialtyStart DateEnd Fausto Juarez MD [address] [place] [address] PCP - [facility] Medicine12/02/15 Austin Jarquin MD [address] [place] [address] ReferringEnt - Otolaryngology01/20/25 Chandan Burgos MD [address] [facility] [place] [address] PhysicianHematology/Oncology02/03/25 Evy Grant MD [address] [facility] [place] [address] PhysicianRadiation Oncology02/03/25 Aleksandra Rollins RN [address] [facility] [place] [address] Specialty Care CoordinatorHematology/Oncology02/03/25Team MemberRelationship SpecialtyStart End Fausto Juarez MD [address] [place] [address] PCP - [facility] Medicine12/02/15 Austin Jarquin MD [address] [place] [address] ReferringEnt - Otolaryngology01/20/25 Chandan Burgos MD [address] [facility] [place] [address] PhysicianHematology/Oncology02/03/25 Evy Grant MD [address] [facility] [place] [address] PhysicianRadiation Oncology02/03/25 Aleksandra Rollins, RN [address] [facility] [place] [address] Specialty Care CoordinatorHematology/Oncology02/03/25Team MemberRelationship SpecialtyStart DateLong[facility] Fausto Juarez MD [address] [place] [address] PCP - [facility] Medicine12/02/15 Austin Jarquin MD [address] [address] ReferringEnt - Otolaryngology01/20/25 Chandan Burgos MD [address] [facility] [place] [address] PhysicianHematology/Oncology02/03/25 Evy Grant MD [address] [place] [address] PhysicianRadiation Oncology02/03/25 Aleksandra Rollins, RN [address] [facility] [place] [address] Specialty Care CoordinatorHematology/Oncology02/03/25Team MemberRelationship SpecialtyStart DateEnd [facility] Fausto Juarez MD [address] [place] [address] PCP - [facility] Medicine12/02/15 Austin Jarquin MD [address] [place] [address] ReferringEnt - Otolaryngology01/20/25 Chandan Burgos MD [address] [place] [address] PhysicianHematology/Oncology02/03/25 Evy Grant MD [address] [place] [address] PhysicianRadiation Oncology02/03/25 Aleksandra Rollins, YONATAN [address] [place] [address] Specialty Care CoordinatorHematology/Oncology02/03/25Te MemberRelationship SpecialtyStart DateEnd [facility] Fausto Juarez MD [address] [place] [address] PCP - [facility] Medicine12/02/15 Austin Jarquin MD [address] [place] [address] ReferringEnt - Otolaryngology01/20/25 Chandan Burgos MD [address] [place] [address] PhysicianHematology/Oncology02/03/25 Evy Grant MD [address] [place] [address] PhysicianRadiation Oncology02/03/25 Aleksandra Rollins, YONATAN [address] [place] [address] Specialty Care CoordinatorHematology/Oncology02/03/25Te MemberRelationship SpecialtyStart DateLong[facility] Fausto Juarez MD [address] [place] [address] PCP - [facility] Medicine12/02/15 Austin Jarquin MD [address] [place] [address] ReferringEnt - Otolaryngology01/20/25 Chandan Burgos MD [address] [facility] [place] [address] PhysicianHematology/Oncology02/03/25 Evy Grant MD [address] [place] [address] PhysicianRadiation Oncology02/03/25 Aleksandra Rollins, YONATAN [address] [place] [address] Specialty Care CoordinatorHematology/Oncology02/03/25Te MemberRelationship SpecialtyStart [facility] Fausto Juarez MD [address] [place] [address] PCP - GeneralMary [facility] Centerly Medicine12/02/15 Austin Jarquin MD [address] [place] [address] ReferringEnt - Otolaryngology01/20/25 Chandan Burgos MD [address] [place] [address] PhysicianHematology/Oncology02/03/25 Evy Grant MD [address] [place] [address] PhysicianRadiation Oncology02/03/25 Aleksandra Rollins, RN [address] [place] [address] Specialty Care CoordinatorHematology/Oncology02/03/25Team MemberRelationship SpecialtyStart DateLong[facility] Fausto Juarez MD [address] [facility] [address] PCP - Generalmily Medicine12/02/15 Austin Jarquin MD [address] [place] [address] ReferringEnt - Otolaryngology01/20/25 Chandan Burgos MD [address] [place] [address] PhysicianHematology/Oncology02/03/25 Evy Grant MD [address] [place] [address] PhysicianRadiation Oncology02/03/25 Aleksandra Rollins, RN [address] [place] [address] Specialty Care CoordinatorHematology/Oncology02/03/25Team MemberRelationship SpecialtyStart [facility] Fausto Juarez MD [address] [place] [address] PCP - GeneralFamily Medicine12/02/15 Austin Jarquin MD [address] [place] [address] ReferringEnt - Otolaryngology01/20/25 Chandan Burgos MD [address] [place] [address] PhysicianHematology/Oncology02/03/25 Evy Grant MD [address] [place] [address] PhysicianRadiation Oncology02/03/25 Aleksandra Rollins, YONATAN [address] [place] [address] Specialty Care CoordinatorHematology/Oncology02/03/25Team MemberRelationship SpecialtyStart [facility] Fausto Juarez MD [address] [place] [address] PCP - GeneralFamily Medicine12/02/15 Austin Jarquin MD [address] [place] [address] WAY [address] [place] [address] ReferringEnt - Otolaryngology01/20/25 Chandan Burgos MD [address] [place] [address] PhysicianHematology/Oncology02/03/25 Evy Grant MD [address] [place] [address] [place] [address] PhysicianRadiation Oncology02/03/25 Aleksandra Rollins, RN [address] [facility] [address] [place], [facility]70 Specialty Care CoordinatorHematology/Oncology02/03/25Team MemberRelationship SpecialtyStart DateEnd Fausto Juarez MD [address] [place] [address] PCP - [facility] Medicine12/02/15 Austin Jarquin MD [address] [place] [address] ReferringEnt - Otolaryngology01/20/25 Chandan Burgos MD [address] [place] [address] [address] [place] [address] PhysicianHematology/Oncology02/03/25 Evy Grant MD [address] [place] [address] [place] [address] PhysicianRadiation Oncology02/03/25 Aleksandra Rollins, YONATAN [address] [facility] [place] [address] Specialty Care CoordinatorHematology/Oncology02/03/25Team MemberRelationship SpecialtyStart End Fausto Juarez MD [address] [place] [address] PCP - GeneralFamily Medicine12/02/15 Austin Jarquin MD [address] [facility] [address] [place] [address] ReferringEnt - Otolaryngology01/20/25 Chandan Burgos MD [address] [place] [address] PhysicianHematology/Oncology02/03/25 Evy Grant MD [address] [facility] [place] [address] PhysicianRadiation Oncology02/03/25 Aleksandra Rollins, YONATAN [address] [facility] [place] [address] Specialty Care CoordinatorHematology/Oncology02/03/25Team MemberRelationship SpecialtyStart DateEnd Fausto Juarez MD [address] [place] [address] PCP - [facility] Medicine12/02/15 Austin Jarquin MD [address] [place] [address] [address] [place] [address] ReferringEnt - Otolaryngology01/20/25 Chandan Burgos MD [address] [facility] [place] [address] PhysicianHematology/Oncology02/03/25 Evy Grant MD [address] [place] [address] PhysicianRadiation Oncology02/03/25 Aleksandra Rollins, YONATAN [address] [facility] [place] [address] Specialty Care CoordinatorHematology/Oncology02/03/25Team MemberRelationship SpecialtyStart [facility] Fausto Juarez MD [address] [place] [address] PCP - [facility] Medicine12/02/15 Austin Jarquin MD [address] [place] [address] ReferringEnt - Otolaryngology01/20/25 Chandan Burgos MD [address] [facility] [address] [place] [address] PhysicianHematology/Oncology02/03/25 Evy Grant MD [address] [facility] [place] [address] PhysicianRadiation Oncology02/03/25 Aleksandra Rollins RN [address] [facility] [place] [address] Specialty Care CoordinatorHematology/Oncology02/03/25Team MemberRelationship SpecialtyStart [facility] Fausto Juarez MD [address] [place] [address] PCP - [facility]12/02/15 Austin Jarquin MD [address] [place] [address] ReferringEnt - Otolaryngology01/20/25 Chandan Burgos MD [address] [place] [address] PhysicianHematology/Oncology02/03/25 Evy Grant MD [address] [place] [address] PhysicianRadiation Oncology02/03/25 Aleksandra Rollins, RN [address] [place] [address] Specialty Care CoordinatorHematology/Oncology02/03/25Te MemberRelationship SpecialtyStart DateEnd Date Fausto Juarez MD [address] [place] [address] PCP - [facility] Medicine12/02/15 Austin Jarquin MD [address] [place] [address] ReferringEnt - Otolaryngology01/20/25 Chandan Burgos MD [address] [place] [address] PhysicianHematology/Oncology02/03/25 Evy Grant MD [address] [place] [address] PhysicianRadiation Oncology02/03/25 Aleksandra Rollins, RN [address] [place] [address] Specialty Care CoordinatorHematology/Oncology02/03/25Te MemberRelationship SpecialtyStart DateEnd Date Fausto Juarez MD [address] [place] [address] PCP - GeneralFamily Medicine12/02/15 Austin Jarquin MD [address] [place] [address] ReferringEnt - Otolaryngology01/20/25 Chandan Burgos MD [address] [place] [address] PhysicianHematology/Oncology02/03/25 Evy Grant MD [address] [place] [address] PhysicianRadiation Oncology02/03/25 Aleksandra Rollins, YONATAN [address] [place] [address] Specialty Care CoordinatorHematology/Oncology02/03/25Team MemberRelationship SpecialtyStart [facility] Fausto Juarez MD [address] [place] [address] PCP - GeneralFamily Medicine12/02/15 Austin Jarquin MD [address] [place] [address] ReferringEnt - Otolaryngology01/20/25 Chandan Burgos MD [address] [place] [address] PhysicianHematology/Oncology02/03/25 Evy Grant MD [address] [facility] [place] [address] PhysicianRadiation Oncology02/03/25 Aleksandra Rollins, YONATAN [address] [facility] [place] [address] Specialty Care CoordinatorHematology/Oncology02/03/25Te MemberRelationship SpecialtyStart [facility] Fausto Juarez MD [address] [facility] [place] [address] PCP - GeneralFamily Medicine12/02/15 Austin Jarquin MD [address] [address] ReferringEnt - Otolaryngology01/20/25 Chandan Burgos MD [address] [facility] [place] [address] PhysicianHematology/Oncology02/03/25 Evy Grant MD [address] [facility] [place] [address] PhysicianRadiation Oncology02/03/25 Aleksandra Rollins RN [address] [facility] [place] [address] Specialty Care CoordinatorHematology/Oncology02/03/25Te MemberRelationship SpecialtyStart [facility] Fausto Juarez MD [address] [place] [address] PCP - GeneralFamily Medicine12/02/15 Austin Jarquin MD [address] [place] [address] [address] [place] [address] ReferringEnt - Otolaryngology01/20/25 Chandan Burgos MD [address] [facility] [place] [address] PhysicianHematology/Oncology02/03/25 Evy Grant MD [address] [facility] [place] [address] PhysicianRadiation Oncology02/03/25 Aleksandra Rollins, RN [address] [facility] [place] [address] Specialty Care CoordinatorHematology/Oncology02/03/25Team MemberRelationship SpecialtyStart Date[facility] Fausto Juarez MD [address] [place] [address] PCP - Generalmily Medicine12/02/15 Austin Jarquin MD [address] [place] [address] [address] [place] [address] ReferringEnt - Otolaryngology01/20/25 Chandan Burgos MD [address] [facility] [place] [address] PhysicianHematology/Oncology02/03/25 Evy Grant MD [address] [facility] [place] [address] PhysicianRadiation Oncology02/03/25 Aleksandra Rollins, RN [address] [facility] [place] [address] Specialty Care CoordinatorHematology/Oncology02/03/25Team MemberRelationship SpecialtyStart DateEnd Date Fausto Juarez MD [address] [facility] [place] [address] PCP - GeneralFamily Medicine01/02/25Team MemberRelationshipSpecialtyStart DateEnd Date Fausto Juarez MD [address] [facility] [place] [address] PCP - GeneralFami Medicine01/02/25Team MemberRelationshipSpecialtyStart DateEnd Date Fausto Juarez MD [address] [facility] [place] [address] PCP - GeneralFamily Medicine01/02/25Team MemberRelationshipSpecialtyStart DateEnd Date Fausto Juarez MD [address] [place] [address] PCP - GeneralFami Medicine01/02/25 Reason for Visit (unrecogniz ed section and content) ReasonCommentsMalignant neoplasm of left vocal cordTreatment visitSpecialty Diagnoses / ProceduresReferred By ContactReferred To ContactHematology/Oncology / HEMATOLOGY/ONCOLOGY Diagnoses lab follow up and Cisplatin concurrent with XRT Procedures ON TREATMENT VISIT Chandan Burgos MD [address] [place] [address] [place] [address] Phone: tel: fax: Merline Fregoso APRN.[address] [place] [address] Phone: tel: fax: Referral IDStatusReasonStart DateExpiration DateVisits RequestedVisits [id number] CommentsVocal Cord MassS/p DL&E TBH 01/01/25ReasonCommentsResearchPrescreenReason CommentsRadiology NMSpecialtyDiagnoses / ProceduresReferred By ContactReferred To ContactMOLECULAR & FUNCTIONAL IMAGING Diagnoses Head and neck cancer (HCC) Procedures NM PET/CT SKULL-THIGH INITIAL PET IMAGING CT ATTENUATION SKULL BASE MID-THIGH Evy Grant MD [address] [place] [address] [place] [address] Phone: tel: fax: Molecular Imaging [address] [place] [address] Phone: tel: Referral IDStatusReasonStart DateExpiration DateVisits RequestedVisits [id number] Auto-Generated Referral [id number] / ProceduresReferred By ContactReferred To ContactOncology Diagnoses Head and neck cancer (HCC) Procedures CONSULT TO ONCOLOGY OFFICE/OUTPATIENT [facility] 60 MINUTES Evy Grant MD [address] [place] [address] [place] [address] Phone: tel: fax: Referral IDStatusReasonStart DateExpiration DateVisits RequestedVisits [id number] PCP Requested Referral [id number]FjmuvuYrcygrfoWhnm Coordination AntiemeticsReasonCommentsConsultSpecialtyDiagnoses / ProceduresReferred By ContactReferred To ContactRadiation Oncology Diagnoses Cancer of true vocal cord (HCC) Procedures OFFICE/OUTPATIENT [facility] MDM 60 MINUTES [id number] (SNOMED CT) - AMB REFERRAL TO RADIATION ONCOLOGY Austin Jarquin MD [address] [facility] [address] [place] [address] Phone: tel: fax: Evy Grant MD [address] [place] [address] [place] [address] Phone: tel: fax: Referral IDStatusReasonStart DateExpiration DateVisits RequestedVisits [id number] Review/[id number] SchedulingReasonCommentsPatient EducationReasonCommentsNutrition Assessment ReasonCommentsFuture AppointmentSchedule SimulationReasonCommentsto ReasonOnset DateCommentsSimulation Request Form03/03/2025ReasonCommentsFirst Time Treatment EducationCisplatinReasonOnset DateCommentsRefill Request 03/03/2025Zofran & CompazineReasonCommentsRadiotherapy On-treatment VisitReason CommentsCare [id number] Post Treatment CallReasonCommentsHead and Neck CancerTreatment visitReasonCommentsMalignant neoplasm of left vocal cordReason CommentsMalignant neoplasm of left vocal cordOTVReasonCommentsHead and Neck CancerFollow upReasonCommentsHead and Neck CancerReasonCommentsFollow-upFollow up Dr Mcdonnell post OPReasonCommentsThroat Problem1 mo follow up Goals (unrecognized section and content) Goals may be documented in a n alternate section Source Comments (unrecognize d section and content) In the event this informatio n is protected by the Federal Confidentiality of Alcohol and Drug Abuse Patient Records regulations: The Federal rules restrict any use of the information to criminally investigate or prosecute any alcohol or drug abuse patient.[facility] HospitalIn the event this information is protected by the Federal Confidentiality of Alcohol and Drug Abuse Patient Records regulations: The Federal rules restrict any use of the information to criminally investigate or prosecute any alcohol or drug abuse patient.[facility] HospitalIn the event this information is protected by the Federal Confidentiality of Alcohol and Drug Abuse Patient Records regulations: The Federal rules restrict any use of the information to criminally investigate or prosecute any alcohol or drug abuse patient.[facility] HospitalIn the event this information is protected by the Federal Confidentiality of Alcohol and Drug Abuse Patient Records regulations: The Federal rules restrict any use of the information to criminally investigate or prosecute any alcohol or drug abuse patient.[facility] HospitalIn the event this information is protected by the Federal Confidentiality of Alcohol and Drug Abuse Patient Records regulations: The Federal rules restrict any use of the information to criminally investigate or prosecute any alcohol or drug abuse patient.[facility] HospitalIn the event this information is protected by the Federal Confidentiality of Alcohol and Drug Abuse Patient Records regulations: The Federal rules restrict any use of the information to criminally investigate or prosecute any alcohol or drug abuse patient.[facility] HospitalIn the event this information is protected by the Federal Confidentiality of Alcohol and Drug Abuse Patient Records regulations: The Federal rules restrict any use of the information to criminally investigate or prosecute any alcohol or drug abuse patient.[facility] HospitalIn the event this information is protected by the Federal Confidentiality of Alcohol and Drug Abuse Patient Records regulations: The Federal rules restrict any use of the information to criminally investigate or prosecute any alcohol or drug abuse patient.[facility] HospitalIn the event this information is protected by the Federal Confidentiality of Alcohol and Drug Abuse Patient Records regulations: The Federal rules restrict any use of the information to criminally investigate or prosecute any alcohol or drug abuse patient.[facility] HospitalIn the event this information is protected by the Federal Confidentiality of Alcohol and Drug Abuse Patient Records regulations: The Federal rules restrict any use of the information to criminally investigate or prosecute any alcohol or drug abuse patient.[facility] HospitalIn the event this information is protected by the Federal Confidentiality of Alcohol and Drug Abuse Patient Records regulations: The Federal rules restrict any use of the information to criminally investigate or prosecute any alcohol or drug abuse patient.[facility] HospitalIn the event this information is protected by the Federal Confidentiality of Alcohol and Drug Abuse Patient Records regulations: The Federal rules restrict any use of the information to criminally investigate or prosecute any alcohol or drug abuse patient.[facility] HospitalIn the event this information is protected by the Federal Confidentiality of Alcohol and Drug Abuse Patient Records regulations: The Federal rules restrict any use of the information to criminally investigate or prosecute any alcohol or drug abuse patient.[facility] HospitalIn the event this information is protected by the Federal Confidentiality of Alcohol and Drug Abuse Patient Records regulations: The Federal rules restrict any use of the information to criminally investigate or prosecute any alcohol or drug abuse patient.[facility] HospitalIn the event this information is protected by the Federal Confidentiality of Alcohol and Drug Abuse Patient Records regulations: The Federal rules restrict any use of the information to criminally investigate or prosecute any alcohol or drug abuse patient.[facility] HospitalIn the event this information is protected by the Federal Confidentiality of Alcohol and Drug Abuse Patient Records regulations: The Federal rules restrict any use of the information to criminally investigate or prosecute any alcohol or drug abuse patient.[facility] HospitalIn the event this information is protected by the Federal Confidentiality of Alcohol and Drug Abuse Patient Records regulations: The Federal rules restrict any use of the information to criminally investigate or prosecute any alcohol or drug abuse patient.[facility] HospitalIn the event this information is protected by the Federal Confidentiality of Alcohol and Drug Abuse Patient Records regulations: The Federal rules restrict any use of the information to criminally investigate or prosecute any alcohol or drug abuse patient.[facility] HospitalIn the event this information is protected by the Federal Confidentiality of Alcohol and Drug Abuse Patient Records regulations: The Federal rules restrict any use of the information to criminally investigate or prosecute any alcohol or drug abuse patient.[facility] HospitalIn the event this information is protected by the Federal Confidentiality of Alcohol and Drug Abuse Patient Records regulations: The Federal rules restrict any use of the information to criminally investigate or prosecute any alcohol or drug abuse patient.[facility] HospitalIn the event this information is protected by the Federal Confidentiality of Alcohol and Drug Abuse Patient Records regulations: The Federal rules restrict any use of the information to criminally investigate or prosecute any alcohol or drug abuse patient.[facility] HospitalIn the event this information is protected by the Federal Confidentiality of Alcohol and Drug Abuse Patient Records regulations: The Federal rules restrict any use of the information to criminally investigate or prosecute any alcohol or drug abuse patient.[facility] HospitalIn the event this information is protected by the Federal Confidentiality of Alcohol and Drug Abuse Patient Records regulations: The Federal rules restrict any use of the information to criminally investigate or prosecute any alcohol or drug abuse patient.[facility] HospitalIn the event this information is protected by the Federal Confidentiality of Alcohol and Drug Abuse Patient Records regulations: The Federal rules restrict any use of the information to criminally investigate or prosecute any alcohol or drug abuse patient.[facility] HospitalIn the event this information is protected by the Federal Confidentiality of Alcohol and Drug Abuse Patient Records regulations: The Federal rules restrict any use of the information to criminally investigate or prosecute any alcohol or drug abuse patient.[facility] HospitalIn the event this information is protected by the Federal Confidentiality of Alcohol and Drug Abuse Patient Records regulations: The Federal rules restrict any use of the information to criminally investigate or prosecute any alcohol or drug abuse patient.[facility] HospitalIn the event this information is protected by the Federal Confidentiality of Alcohol and Drug Abuse Patient Records regulations: The Federal rules restrict any use of the information to criminally investigate or prosecute any alcohol or drug abuse patient.[facility] HospitalIn the event this information is protected by the Federal Confidentiality of Alcohol and Drug Abuse Patient Records regulations: The Federal rules restrict any use of the information to criminally investigate or prosecute any alcohol or drug abuse patient.[facility] HospitalIn the event this information is protected by the Federal Confidentiality of Alcohol and Drug Abuse Patient Records regulations: The Federal rules restrict any use of the information to criminally investigate or prosecute any alcohol or drug abuse patient.[facility] HospitalIn the event this information is protected by the Federal Confidentiality of Alcohol and Drug Abuse Patient Records regulations: The Federal rules restrict any use of the information to criminally investigate or prosecute any alcohol or drug abuse patient.[facility] HospitalIn the event this information is protected by the Federal Confidentiality of Alcohol and Drug Abuse Patient Records regulations: The Federal rules restrict any use of the information to criminally investigate or prosecute any alcohol or drug abuse patient.[facility] HospitalIn the event this information is protected by the Federal Confidentiality of Alcohol and Drug Abuse Patient Records regulations: The Federal rules restrict any use of the information to criminally investigate or prosecute any alcohol or drug abuse patient.[facility] HospitalIn the event this information is protected by the Federal Confidentiality of Alcohol and Drug Abuse Patient Records regulations: The Federal rules restrict any use of the information to criminally investigate or prosecute any alcohol or drug abuse patient.[facility] HospitalIn the event this information is protected by the Federal Confidentiality of Alcohol and Drug Abuse Patient Records regulations: The Federal rules restrict any use of the information to criminally investigate or prosecute any alcohol or drug abuse patient.[facility] HospitalIn the event this information is protected by the Federal Confidentiality of Alcohol and Drug Abuse Patient Records regulations: The Federal rules restrict any use of the information to criminally investigate or prosecute any alcohol or drug abuse patient.[facility] HospitalIn the event this information is protected by the Federal Confidentiality of Alcohol and Drug Abuse Patient Records regulations: The Federal rules restrict any use of the information to criminally investigate or prosecute any alcohol or drug abuse patient.[facility] HospitalIn the event this information is protected by the Federal Confidentiality of Alcohol and Drug Abuse Patient Records regulations: The Federal rules restrict any use of the information to criminally investigate or prosecute any alcohol or drug abuse patient.[facility] HospitalIn the event this information is protected by the Federal Confidentiality of Alcohol and Drug Abuse Patient Records regulations: The Federal rules restrict any use of the information to criminally investigate or prosecute any alcohol or drug abuse patient.[facility] HospitalIn the event this information is protected by the Federal Confidentiality of Alcohol and Drug Abuse Patient Records regulations: The Federal rules restrict any use of the information to criminally investigate or prosecute any alcohol or drug abuse patient.[facility] HospitalIn the event this information is protected by the Federal Confidentiality of Alcohol and Drug Abuse Patient Records regulations: The Federal rules restrict any use of the information to criminally investigate or prosecute any alcohol or drug abuse patient.[facility] HospitalIn the event this information is protected by the Federal Confidentiality of Alcohol and Drug Abuse Patient Records regulations: The Federal rules restrict any use of the information to criminally investigate or prosecute any alcohol or drug abuse patient.[facility] HospitalIn the event this information is protected by the Federal Confidentiality of Alcohol and Drug Abuse Patient Records regulations: The Federal rules restrict any use of the information to criminally investigate or prosecute any alcohol or drug abuse patient.[facility] HospitalIn the event this information is protected by the Federal Confidentiality of Alcohol and Drug Abuse Patient Records regulations: The Federal rules restrict any use of the information to criminally investigate or prosecute any alcohol or drug abuse patient.[facility] HospitalIn the event this information is protected by the Federal Confidentiality of Alcohol and Drug Abuse Patient Records regulations: The Federal rules restrict any use of the information to criminally investigate or prosecute any alcohol or drug abuse patient.[facility] HospitalIn the event this information is protected by the Federal Confidentiality of Alcohol and Drug Abuse Patient Records regulations: The Federal rules restrict any use of the information to criminally investigate or prosecute any alcohol or drug abuse patient.[facility] HospitalIn the event this information is protected by the Federal Confidentiality of Alcohol and Drug Abuse Patient Records regulations: The Federal rules restrict any use of the information to criminally investigate or prosecute any alcohol or drug abuse patient.[facility] HospitalIn the event this information is protected by the Federal Confidentiality of Alcohol and Drug Abuse Patient Records regulations: The Federal rules restrict any use of the information to criminally investigate or prosecute any alcohol or drug abuse patient.[facility] HospitalIn the event this information is protected by the Federal Confidentiality of Alcohol and Drug Abuse Patient Records regulations: The Federal rules restrict any use of the information to criminally investigate or prosecute any alcohol or drug abuse patient.[facility] HospitalIn the event this information is protected by the Federal Confidentiality of Alcohol and Drug Abuse Patient Records regulations: The Federal rules restrict any use of the information to criminally investigate or prosecute any alcohol or drug abuse patient.[facility] HospitalIn the event this information is protected by the Federal Confidentiality of Alcohol and Drug Abuse Patient Records regulations: The Federal rules restrict any use of the information to criminally investigate or prosecute any alcohol or drug abuse patient.[facility] HospitalIn the event this information is protected by the Federal Confidentiality of Alcohol and Drug Abuse Patient Records regulations: The Federal rules restrict any use of the information to criminally investigate or prosecute any alcohol or drug abuse patient.[facility] HospitalIn the event this information is protected by the Federal Confidentiality of Alcohol and Drug Abuse Patient Records regulations: The Federal rules restrict any use of the information to criminally investigate or prosecute any alcohol or drug abuse patient.[facility] FOR RECORDS PERTAINING TO PATIENTS WHO [...] BE BASED ON THE PRIMARY CLINICAL RECORDS. [employer] [facility]. provides no warranty or guarantee of the accuracy or completeness of information in this document.
--- NOTE | 2025-07-01 14:35 | PM.WCHP ---
Wound Care H&P: HPI History of Present Illness Narrative: The patient is a pleasant 84-year-old gentleman with history of throat cancer and type 2 diabetes who presents for routine nail care. He states his big toenails are painful. [facility] Medical History (Updated 01/15/25 @ 14:32 by BHARAT Basilio) Hip pain ?M25.559 - Pain in unspecified hip (ICD-10) Knee pain ?M25.569 - Pain in unspecified knee (ICD-10) Postoperative atrial fibrillation ?I97.89 - Other postprocedural complications and disorders of the circulatory system, not elsewhere classified (ICD-10) ?I48.91 - Unspecified atrial fibrillation (ICD-10) Respiratory insufficiency ?R06.89 - Other abnormalities of breathing (ICD-10) Acute blood loss as cause of postoperative anemia ?D62 - Acute posthemorrhagic anemia (ICD-10) Pleural effusion ?J90 - Pleural effusion, not elsewhere classified (ICD-10) Atelectasis ?J98.11 - Atelectasis (ICD-10) Angina pectoris ?I20.9 - Angina pectoris, unspecified (ICD-10) CAD (coronary artery disease) ?I25.10 - Atherosclerotic heart disease of [place] coronary artery without angina pectoris (ICD-10) Arthritis ?M19.90 - Unspecified osteoarthritis, unspecified site (ICD-10) Macular degeneration ?H35.30 - Unspecified macular degeneration (ICD-10) GERD (gastroesophageal reflux disease) ?K21.9 - Gastro-esophageal reflux disease without esophagitis (ICD-10) Hypertension ?I10 - Essential (primary) hypertension (ICD-10) Hyperlipidemia ?E78.5 - Hyperlipidemia, unspecified (ICD-10) Diabetes ?E11.9 - Type 2 diabetes mellitus without complications (ICD-10) COPD (chronic obstructive pulmonary disease) ?J44.9 - Chronic obstructive pulmonary disease, unspecified (ICD-10) Surgical History (Updated 01/01/25 @ 10:45 by Eve Han) History of cataract extraction ?Z98.49 - Cataract extraction status, unspecified eye (ICD-10) Hx of CABG ?Z95.1 - Presence of aortocoronary bypass graft (ICD-10) S/P triple vessel bypass ?Z95.1 - Presence of aortocoronary bypass graft (ICD-10) Family History (Updated 12/19/24 @ 12:58 by Sujata Shepherd NP) Other Family history of heart disease Social History (Updated 02/03/23 @ 06:34 by Aparna Wallace) Within the past year, how often did you have a drink containing alcohol: never Score interpretation: A score less than 4 is consistent with normal alcohol consumption. Smoking status: Former smoker Non-prescribed substance use: denies use Previous occupational history: retired Highest level of school completed/degree received: high school graduate Are you now , , , , never or living with a partner: In a typical week, how many times do you talk on the telephone with family, friends, or neighbors: 3 or more times per week How often do you get together with friends or relatives: 3 or more times per week How often do you attend sabianism or pentecostal services: 4 or more times per year Do you belong to any clubs or organizations such as sabianism groups unions, [employer] or athletic groups, or school groups: yes Total score: 3 Score interpretation: A score of greater than or equal to 2 indicates the lowest level of social isolation. Little interest or pleasure in doing things: not at all Feeling down, depressed, or hopeless: not at all Feel stressed/tense/nervous/anxious/difficulty sleeping: not at all Due to disability, difficulty making decisions: No Do you think of yourself as: straight/heterosexual Gender Identity: male Meds Home Medications and Allergies Home Medications ?Medication ?Instructions ?Recorded ?Confirmed ?Type acetaminophen 325 mg tablet (Pain 650 mg PO Q6H PRN pain 02/02/23 01/01/25 History Relief (acetaminophen)) amiodarone 200 mg tablet 200 mg PO DAILY 02/02/23 01/01/25 History aspirin 81 mg chewable tablet 81 mg PO DAILY 02/02/23 01/01/25 History atorvastatin 40 mg tablet 40 mg PO QPM 02/02/23 01/01/25 History cetirizine 10 mg tablet 10 mg PO DAILY 02/02/23 01/01/25 History docusate sodium 100 mg capsule 200 mg PO BID 02/02/23 01/01/25 History (Col-Rite) furosemide 40 mg tablet 40 mg PO DAILY 02/02/23 01/01/25 History glimepiride 4 mg tablet 4 mg PO DAILY 02/02/23 01/01/25 History metformin 500 mg tablet 500 mg PO BID 02/02/23 01/01/25 History metoprolol tartrate 25 mg tablet 12.5 mg PO BID 02/02/23 01/01/25 History pantoprazole 40 mg tablet,delayed 40 mg PO DAILY 02/02/23 01/01/25 History release potassium chloride 20 mEq 20 meq PO DAILY 02/02/23 01/01/25 History tablet,extended release sennosides 8.6 mg capsule (senna) 8.6 mg PO BID PRN constipation 02/02/23 01/01/25 History vitamins A,C,Y-ujac-tknoce 4,296 1 cap PO DAILY 02/03/23 01/01/25 History mcg-226 mg-90 mg capsule (PreserVision AREDS) calcium 600 mg capsule 1,200 mg PO DAILY 07/07/24 01/01/25 History cholecalciferol (vitamin D3) 50 50 mcg PO DAILY 07/07/24 01/01/25 History mcg (2,000 unit) capsule (Vitamin D3) mupirocin 2 % topical ointment 1 applic topical BID 07/07/24 01/01/25 History sitagliptin phosphate 100 mg 100 mg PO DAILY 12/19/24 01/01/25 History tablet (Januvia) Allergies Allergy/AdvReac Type Severity Reaction Status Date / Time No Known Drug Allergies Allergy Verified 07/14/24 13:45 Exam Narrative: Exam Narrative: Derm: Toenails 1 through 10 are thickened, elongated, and mycotic.? Hallux toeails are markedly thickened. No evidence of paronychia.? Skin is diffusely dry, thin, and atrophic.? Vascular: DP and PT pulses are palpable bilaterally.? Capillary refill is less than 3 seconds to all toes. Digital hair is absent bilaterally. Feet are cool to the touch bilaterally. Neuro: Vibratory sensation is present bilaterally.? Achilles deep tendon reflex is absent bilaterally.? Protective sensation was tested with a monofilament and is present in 3/5 areas tested on the right and 5/5 areas tested on the left.? Musculoskeletal: No gross deformity.? Strength 5/5 in all planes bilaterally Assessment and Plan Assessment and Plan (1) Tinea unguium: (2) Onychogryphosis: (3) Nail dystrophy: (4) Type 2 diabetes mellitus with other diabetic ophthalmic complication: (5) Unsteady gait when walking: (6) Coronary artery disease: Plan Routine nail care performed. Follow-up in 3 months. Acute Procedures Podiatry Nail Debridement Class B Findings Advanced trophic changes as evidenced by any three of the following: decreased hair growth, nail changes (thickening) and skin texture (thin or shiny) Class C Findings Claudication: No Temperature changes: Yes Edema: Yes Nail debridement paresthesia (abnormal spontaneous sensations in the feet): Yes Burning: No Qualifies If: Qualifiers If:: A patient qualifies for nail debridement if they have: 1 class A finding (Q7) 2 class B findings (Q8) OR 1 class B & 2 class C findings in addition to a primary condition (Q9) Nail Procedure Nail Procedure Time out: Yes Nail procedure: other (Sharp debridement of toenails 1 through 10) Number of affected nails: 10 Location (toes): left and right Procedure successful: Yes Patient tolerated procedure: well and no complications Additional comments: Toenail 1 through 10 were sharply debrided without incident with nail nippers. Hallux nails were debulked using a dremel file.
== END 2025-07-01 14:03 | disposition home or self-care (01) ==
LOC: WC 14:02
PROVIDERS: PCP Family Medicine; Visit Provider Physician Assistant
DX: B35.1 Tinea unguium (principal); L60.2 Onychogryphosis; L60.8 Other nail disorders; E11.39 Type 2 diabetes mellitus with other diabetic ophthalmic complication; R26.81 Unsteadiness on feet; I25.10 Atherosclerotic heart disease of native coronary artery without angina pectoris
CPT/HCPCS: 11721